=== PATIENT | male | born 1935 | race Caucasian/White ===

== ENCOUNTER 2016-11-23 19:12 | Inpatient (IN) | payer OTHER, BC ==
[2016-11-23 19:52] LABS: BASOPHIL 0.5 % (0-2.0); EOSINOPHIL 2.8 % (0-4.5); MCH 27.1 pg (25.7-33.7); MEAN CELL VOLUME 82.1 fl (80-96); MEAN PLT VOLUME 8.2 fl (7.5-11.1); NEUTROPHILS 77.5 % (42.8-82.8); PLATELET COUNT 213 K/MM3 (134-434); RDW 16.5 % (11.9-15.9); WHITE BLOOD COUNT 9.7 K/mm3 (4.0-10.0)
[2016-11-23 20:03] LABS: INR 1.11 (0.82-1.09); PROTHROMBIN TIME (PATIENT) 12.2 SEC (9.98-11.88)
[2016-11-23 20:18] LABS: ALBUMIN 2.9 g/dl (3.4-5.0); ANION GAP 8 (8-16); CALCIUM 8.1 mg/dL (8.5-10.1); CO2 23 mmol/L (21-32); CREATININE 1.7 mg/dL (0.7-1.3); GLUCOSE,RANDOM 110 mg/dL (74-106); SGOT/AST 10 U/L (15-37); SGPT/ALT 19 U/L (12-78)
[2016-11-23 20:21] LABS: ALK PHOS 87 U/L (45-117); BILIRUBIN,TOTAL 0.5 mg/dL (0.2-1.0); TROPONIN I < 0.02 ng/ml (0.00-0.05)
--- NOTE | 2016-11-23 21:45 | PDOC ---
History of Present Illness - General Chief Complaint: Rectal Bleed Stated Complaint: GI BLEED Time Seen by Provider: 11/23/16 19:23 History Source: Patient Exam Limitations: No Limitations - History of Present Illness Initial Comments: 11/23/16 21:37 Patient is a 81 year old male with h/o HTN, COPD on home O2 2-3 L, hemorrhoids, HLD, GERD, CAD, CHF, DM, chronic renal insufficiency c/o rectal bleeding since this evening. States the bleeding is bright red, with comes out when he uses the toilet, or if she passes gas x 6-7 episodes today. He denies any abdominal pain. No prior episode but he does have hemorrhoids which he said was out and he pushed them back in. Denies chest pain, diziness, weakness, OLIVA. No h/o colonoscopy. PMD: Dr. Connor Rocha PMHX: as above PSOCHX: lives at home, ex smoker stopped 2010 PFamHX: noncontributory ALL: Levaquin GENERAL/CONSTITUTIONAL: [No fever or chills. No weakness. No weight change.] HEAD, EYES, EARS, NOSE AND THROAT: visual defecits left eye. ALGAACIQ, No ear pain or discharge. No sore throat.] CARDIOVASCULAR: [No chest pain or shortness of breath.] RESPIRATORY: (+) cough, wheezing, or hemoptysis, on home O2 GASTROINTESTINAL: [No nausea, vomiting, diarrhea or constipation. No rectal bleeding.] GENITOURINARY: [No dysuria, frequency, or change in urination.] MUSCULOSKELETAL: [No joint or muscle swelling or pain. No neck or back pain.] SKIN AND BREASTS: [No rash or easy bruising.] NEUROLOGIC: [No headache, vertigo, loss of consciousness, or loss of sensation.] PSYCHIATRIC: [No depression or anxiety.] ENDOCRINE: [No increased thirst. No abnormal weight change.] HEMATOLOGIC/LYMPHATIC: [No anemia, easy bleeding, or history of blood clots.] ALLERGIC/IMMUNOLOGIC: [No hives or skin allergy. No latex allergy.] GENERAL: [The patient is awake, alert, and fully oriented, in no acute distress. ] HEAD: [Normal with no signs of trauma.] EYES: [Pupils equal, round and reactive to light, extraocular movements intact, sclera anicteric, conjunctiva clear.] ENT: [Ears normal, nares patent, oropharynx clear without exudates. Moist mucous membranes.] NECK: [Normal range of motion, supple without lymphadenopathy, JVD, or masses.] LUNGS: [Breath sounds equal, clear to auscultation bilaterally. No wheezes, and no crackles.] HEART: [Regular rate and rhythm, normal S1 and S2 without murmur, rub.] ABDOMEN: [Soft, nontender, normoactive bowel sounds. No guarding, no rebound. No masses] RECTAL: no active bleeding, internal hemorrhoids, no stool in vault , pink mucous EXTREMITIES: [Normal range of motion, no edema. No clubbing or cyanosis. No cords, erythema, or tenderness.] NEUROLOGICAL: [Cranial nerves II through XII grossly intact. Normal speech, normal gait.] PSYCH: [Normal mood, normal affect.] SKIN: [Warm, Dry, normal turgor, no rashes or lesions noted.] Past History - Past Medical History Allergies/Adverse Reactions: Allergies Allergy/AdvReac Type Severity Reaction Status Date / Time Iodinated Contrast Media - Allergy Rash Verified 11/23/16 19:20 Oral and [Iodinated Contrast Media - IV Dye] levofloxacin [From Levaquin] Allergy "RASH" Verified 11/23/16 19:20 Home Medications: Ambulatory Orders Amlodipine Besylate [Norvasc -] 10 mg PO DAILY 12/03/12 Aspirin Coated [Ecotrin -] 81 mg PO DAILY 12/03/12 Atorvastatin Ca [Lipitor] 20 mg PO HS 12/03/12 Budesonide [Pulmicort 0.5 mg Nebulizer -] 1 neb NEB HS 12/03/12 Multivit-Min/FA/Lycopene/Lut [Centrum Silver Tablet] 1 each PO DAILY 12/03/12 Tiotropium [place] [Spiriva] 1 inh IH HS 12/03/12 Cyanocobalamin (Vitamin B-12) [Cyanocobalamin] 1,000 mcg PO DAILY 06/27/14 Carvedilol [Coreg -] 12.5 mg PO BID #60 tablet 12/03/14 Losartan Potassium [Cozaar -] 100 mg PO DAILY #0 tablet 12/03/14 Cholecalciferol (Vitamin D3) [Vitamin D3 -] 2,000 unit PO DAILY 03/01/15 Albuterol Sulfate Inhaler - [Ventolin HFA Inhaler -] 1 - 2 inh PO QID #1 inhaler 03/12/16 Pantoprazole Sodium [Protonix -] 10 mg PO DAILY 11/23/16 Prednisone [Deltasone -] 5 mg PO DAILY 11/23/16 Risperidone [Risperdal] 1 mg PO BID 11/23/16 Anemia: No Asthma: (EMPHYSEMA-NASAL 2L) Cancer: No Cardiac Disorders: Yes ("HEART DISEASE") CVA: No COPD: Yes (2-3L NC) CHF: Yes Dementia: No Diabetes: No GI Disorders: Yes (ACID REFLUX) Disorders: No HTN: Yes Hypercholesterolemia: Yes Liver Disease: No Seizures: No Thyroid Disease: No - Surgical History Abdominal Surgery: No Appendectomy: No Cardiac Surgery: Yes (PPM) Cholecystectomy: Yes Lung Surgery: No Neurologic Surgery: No Orthopedic Surgery: No - Immunization History Td Vaccination: No TDAP Vaccination: No Immunization Up to Date: No - Psycho/Social/Smoking Cessation Hx Anxiety: No Suicidal Ideation: No Smoking History: Unknown if ever smoked Have you smoked in the past 12 months: No If you are a former smoker, when did you quit?: 4YRS AGO Hx Alcohol Use: No Drug/Substance Use Hx: No Substance Use Type: None Hx Substance Use Treatment: No *Physical Exam - Vital Signs Last Vital Signs Temp Pulse Resp BP Pulse Ox 97.9 F 92 H 18 143/82 99 11/23/16 19:21 11/23/16 19:21 11/23/16 19:21 11/23/16 19:21 11/23/16 19:21 ED Treatment Course - LABORATORY CBC & Chemistry Diagram: 11/23/16 19:44 11/23/16 19:44 - ADDITIONAL ORDERS Additional order review: Laboratory Results 11/23/16 11/23/16 11/23/16 20:00 19:44 19:44 INR Sodium 141 Potassium 4.5 Chloride 110 H Carbon Dioxide 23 Anion Gap 8 BUN 26 H D Creatinine 1.7 H Creat Clearance w eGFR 38.78 Random Glucose 110 H D Calcium 8.1 L Total Bilirubin 0.5 D AST 10 L D ALT 19 D Alkaline Phosphatase 87 Creatine Kinase 49 Troponin I < 0.02 Total Protein 6.0 L Albumin 2.9 L D Stool Occult Blood Negative Blood Type A POSITIVE Antibody Screen Negative 11/23/16 19:44 INR 1.11 Sodium Potassium Chloride Carbon Dioxide Anion Gap BUN Creatinine Creat Clearance w eGFR Random Glucose Calcium Total Bilirubin AST ALT Alkaline Phosphatase Creatine Kinase Troponin I Total Protein Albumin Stool Occult Blood Blood Type Antibody Screen 11/23/16 19:44 RBC 3.27 L MCV 82.1 MCHC 33.0 RDW 16.5 H MPV 8.2 Neutrophils % 77.5 Lymphocytes % 10.5 D Monocytes % 8.7 D Eosinophils % 2.8 D Basophils % 0.5 D - RADIOLOGY Radiology Studies Ordered: Category Date Time Status CHEST X-RAY PORTABLE* [RAD] Stat Radiology 11/23/16 19:43 Taken Medical Decision Making - Medical Decision Making 11/23/16 22:11 Patient is a 81 year old male with h/o HTN, COPD on home O2 2-3 L, hemorrhoids, HLD, GERD, CAD, CHF, DM, chronic renal insufficiency c/o rectal bleeding since this evening, will get labs, no IVF h/o chf, labs reviewed noted patient h/h falling since february EKG paced at 94, RAD unchanged since 03/02/15 11/23/[address] Meliton Galarza covering, no answer [address] Galarza no answer [address] Galarza no answer. 2330 paged hospitalist will admit *DC/Admit/Observation/Transfer Diagnosis at time of Disposition: GI bleed Qualifiers: GI bleed type/associated pathology: unspecified gastrointestinal hemorrhage type Qualified Code(s): K92.2 - Gastrointestinal hemorrhage, unspecified - Discharge Dispostion Condition at time of disposition: Stable Admit: Yes
[2016-11-23] MEDS ORDERED: PANTOPRAZOLE SODIUM 40 MG VIAL ONE (23:55)
[2016-11-24] MEDS: PANTOPRAZOLE SODIUM 80 MG in SODIUM CHLORIDE 100 ML IVPB SCH ×3 (00:01→21:58)
[2016-11-24] MEDS ORDERED: PANTOPRAZOLE SODIUM 80 MG in SODIUM CHLORIDE 100 ML IVPB ONE (00:05)
--- NOTE | 2016-11-24 00:08 | HP ---
<Rashaad Bella - Last Filed: 11/24/16 03:05> CHIEF COMPLAINT: Rectal Bleeding PCP: Dr. Connor Rocha HISTORY OF PRESENT ILLNESS: 81 year old male, who present with chief complaint of rectal bleeding. ER course was notable for: (1) Rectal Bleeding Recent Travel: PAST MEDICAL HISTORY: Coronary artery disease, CHF, hypertension, hyperlipidemia , right extremity carotid artery stenosis, COPD, dependent on oxygen, diverticulosis, GERD, left inguinal hernia, CKD, BPH, B12 deficiency, invasive pulmonary aspergillosis, diabetes mellitus, arthritis and low back pain chronic. PAST SURGICAL HISTORY: Cholecystectomy, permanent pacemaker Social History: Smoking: Former smoker (quit 4 years ago) Alcohol: Non-alcoholic Drugs: None reported Family History: None reported Allergies Iodinated Contrast Media - Oral and [Iodinated Contrast Media - IV Dye] Allergy (Verified 11/23/16 19:20) Rash UNCODED ALLERGY "CT SCAN DYE" levofloxacin [From Levaquin] Allergy (Verified 11/23/16 19:20) "RASH" HOME MEDICATIONS: Home Medications Medication Instructions Recorded Amlodipine Besylate [Norvasc -] 10 mg PO DAILY 12/03/12 Aspirin Coated [Ecotrin -] 81 mg PO DAILY 12/03/12 Atorvastatin Ca [Lipitor] 20 mg PO HS 12/03/12 Budesonide [Pulmicort 0.5 mg 1 neb NEB HS 12/03/12 Nebulizer -] Multivit-Min/FA/Lycopene/Lut 1 each PO DAILY 12/03/12 [Centrum Silver Tablet] Tiotropium [place] [Spiriva] 1 inh IH HS 12/03/12 Cyanocobalamin (Vitamin B-12) 1,000 mcg PO DAILY 06/27/14 [Cyanocobalamin] Carvedilol [Coreg -] 12.5 mg PO BID #60 tablet 12/03/14 Losartan Potassium [Cozaar -] 100 mg PO DAILY #0 tablet 12/03/14 Cholecalciferol (Vitamin D3) 2,000 unit PO DAILY 03/01/15 [Vitamin D3 -] Albuterol Sulfate Inhaler - 1 - 2 inh PO QID #1 inhaler 03/12/16 [Ventolin HFA Inhaler -] Pantoprazole Sodium [Protonix -] 10 mg PO DAILY 11/23/16 Prednisone [Deltasone -] 5 mg PO DAILY 11/23/16 Risperidone [Risperdal] 1 mg PO BID 11/23/16 REVIEW OF SYSTEMS CONSTITUTIONAL: Absent: fever, chills, diaphoresis, generalized weakness, malaise, loss of appetite, weight change HEENT: Absent: rhinorrhea, nasal congestion, throat pain, throat swelling, difficulty swallowing, mouth swelling, ear pain, eye pain, visual changes CARDIOVASCULAR: Absent: chest pain, syncope, palpitations, irregular heart rate, lightheadedness , peripheral edema RESPIRATORY: Absent: cough, shortness of breath, dyspnea with exertion, orthopnea, wheezing, stridor, hemoptysis GASTROINTESTINAL: Present: Rectal bleeding Absent: abdominal pain, abdominal distension, nausea, vomiting, diarrhea, constipation, hematochezia GENITOURINARY: Absent: dysuria, frequency, urgency, hesitancy, hematuria, flank pain, genital pain MUSCULOSKELETAL: Absent: myalgia, arthralgia, joint swelling, back pain, neck pain SKIN: Absent: rash, itching, pallor HEMATOLOGIC/IMMUNOLOGIC: Absent: easy bleeding, easy bruising, lymphadenopathy, frequent infections ENDOCRINE: Absent: unexplained weight gain, unexplained weight loss, heat intolerance, cold intolerance NEUROLOGIC: Absent: headache, focal weakness or paresthesias, dizziness, unsteady gait, seizure, mental status changes, bladder or bowel incontinence PSYCHIATRIC: Absent: anxiety, depression, suicidal or homicidal ideation, hallucinations. PHYSICAL EXAMINATION Vital Signs - 24 hr 11/23/16 11/23/16 19:21 23:45 Temperature 97.9 F Pulse Rate 92 H Pulse Rate [ 96 H Left] Respiratory 18 16 Rate Blood Pressure 143/82 Blood Pressure 139/72 [Right Arm] O2 Sat by Pulse 99 100 Oximetry (%) GENERAL: Awake, alert, and fully oriented elderly gentleman, resting in bed, able to speak full sentences, in no acute distress. HEAD: Normal with no signs of trauma. EYES: Pupils equal, round and reactive to light, extraocular movements intact, sclera anicteric, conjunctiva clear. No lid lag. EARS, NOSE, THROAT: Ears normal, nares patent, oropharynx clear without exudates. Moist mucous membranes. NECK: Normal range of motion, supple without lymphadenopathy, JVD, or masses. LUNGS: Breath sounds equal, clear to auscultation bilaterally. Mildly decreased breath sounds at bases. No wheezes, and no crackles. No accessory muscle use. HEART: Regular rate and rhythm, normal S1 and S2 without murmur, rub or gallop. ABDOMEN: Soft, nontender, not distended, normoactive bowel sounds x4, no guarding, no rebound, no masses. No hepatomegaly or splenomegaly. MUSCULOSKELETAL: Normal range of motion at all joints. No bony deformities or tenderness. No CVA tenderness. EXTREMITIES: Negative CCE No peripheral edema. NEUROLOGICAL: Cranial nerves II-XII intact. Normal speech. Normal gait. PSYCHIATRIC: Cooperative. Good eye contact. Appropriate mood and affect. SKIN: Warm, dry, normal turgor, no rashes or lesions noted. RECTAL EXAM: Deffered by patient. Laboratory Results - last 24 hr 11/23/16 11/23/16 11/23/16 19:44 19:44 19:44 WBC 9.7 RBC 3.27 L Hgb 8.9 L D Hct 26.9 L MCV 82.1 MCHC 33.0 RDW 16.5 H Plt Count 213 MPV 8.2 Neutrophils % 77.5 Lymphocytes % 10.5 D Monocytes % 8.7 D Eosinophils % 2.8 D Basophils % 0.5 D INR 1.11 Sodium 141 Potassium 4.5 Chloride 110 H Carbon Dioxide 23 Anion Gap 8 BUN 26 H D Creatinine 1.7 H Creat Clearance w eGFR 38.78 Random Glucose 110 H D Calcium 8.1 L Total Bilirubin 0.5 D AST 10 L D ALT 19 D Alkaline Phosphatase 87 Creatine Kinase 49 Troponin I < 0.02 Total Protein 6.0 L Albumin 2.9 L D Stool Occult Blood Blood Type Antibody Screen 11/23/16 11/23/16 19:44 20:00 WBC RBC Hgb Hct MCV MCHC RDW Plt Count MPV Neutrophils % Lymphocytes % Monocytes % Eosinophils % Basophils % INR Sodium Potassium Chloride Carbon Dioxide Anion Gap BUN Creatinine Creat Clearance w eGFR Random Glucose Calcium Total Bilirubin AST ALT Alkaline Phosphatase Creatine Kinase Troponin I Total Protein Albumin Stool Occult Blood Negative Blood Type A POSITIVE Antibody Screen Negative EKG V paced at 94 QTC 520 ASSESSMENT/PLAN: 81 year old male, with past medical history of Coronary artery disease, CHF, hypertension, hyperlipidemia, right extremity carotid artery stenosis, COPD, dependent on oxygen, diverticulosis, GERD, left inguinal hernia, CKD, BPH, B12 deficiency, invasive pulmonary aspergillosis, diabetes mellitus, arthritis and low back pain chronic, who presents with rectal bleeding. 1. Rectal bleeding - Differential diagnosis; diverticulitis bleed, doubt upper GI source by patient poor historian - 2 Large bore IVs - NPO - Type and screen - CBC Q8 - [place] in AM - Transfuse if hemoglobin less than 7 - GI consult 2. COPD - Continue with O2 - Continue with nebs - ? Prednisone needs to be confirmed with pharmacy 5 mg daily 3. Diabetes - NPO - Fingerstick Q4 - IRSS 4. CAD - hold Aspirin - Hold Coreg - Hold Statin 5. CKD - Base creatine around 2 - Avoid nephrotoxins 6. Hypertension - Hold PO meds for now 7. History of CHF - If transfusion needed, consider Lasix post hold off IVF for now 8. DVT prophylaxis - Row risk SCDs Admit to non cardiac tely Low threshold for ICU if continue severe bleeding Documentation prepared by Rashaad Bella, acting as biomedical engineering internship for Wally Mcleod MD. <Wally Mcleod - Last Filed: 11/30/16 18:58> HPI: ADDENDUM: Pt. is a poor historian, states he has had bloody BM's since this evening, about 6-7 X. Unsure of color, did say prior it was bright red blood. No current chest pain, pressure, lightheadedness or dizziness. States he had a BM in the ED , which did not have any blood in it. Notes he has never had a colonoscopy or EGD. Visit type - Emergency Visit Emergency Visit: Yes ED Registration Date: 11/23/16 Care time: The patient presented to the Emergency Department on the above date and was hospitalized for further evaluation of their emergent condition. - New Patient This patient is new to me today: Yes Date on this admission: 11/30/16 - Critical Care Critical Care patient: No
[2016-11-24] MEDS: INSULIN SLIDING SCALE (NOVOLOG) 1 VIAL SQ SCH ×7 (00:16→22:00)
[2016-11-24] MEDS ORDERED: ALBUTEROL SO4 6.7 GM HFA INHALER IH PRN ×2 (04:38→10:00)
[2016-11-24 05:35] VITALS: BMI 32.3
[2016-11-24] MEDS ORDERED: ALBUTEROL SO4 0.083% IH SOL 2.5 MG/3 ML VIAL.NEB. NEB ONE (07:27)
[2016-11-24 07:53] LABS: MCH 27.1 pg (25.7-33.7); MEAN CELL VOLUME 82.2 fl (80-96); MEAN PLT VOLUME 8.5 fl (7.5-11.1); PLATELET COUNT 180 K/MM3 (134-434); RDW 16.5 % (11.9-15.9); WHITE BLOOD COUNT 8.8 K/mm3 (4.0-10.0)
[2016-11-24 08:14] LABS: INR 1.12 (0.82-1.09); PROTHROMBIN TIME (PATIENT) 12.3 SEC (9.98-11.88)
[2016-11-24 08:16] LABS: CALCIUM 8.5 mg/dL (8.5-10.1)
[2016-11-24 08:17] LABS: ACTIVATED PTT 25.9 SECONDS (26.9-34.4)
[2016-11-24 08:18] LABS: CREATININE 1.7 mg/dL (0.7-1.3)
[2016-11-24] MEDS: predniSONE 5 MG TABLET (UD) PO SCH (09:59)
[2016-11-24] MEDS ORDERED: risperiDONE 1 MG TABLET (FP) PO SCH (10:00)
--- NOTE | 2016-11-24 10:54 | PN ---
Progress Note, Physician Chief Complaint: Mr Vee says he is feeling fine today. Is asking for food because he is hungry. No cp, sob, n/v. - Current Medication List Current Medications: Active Medications Aclidinium [place] ([place] -) 1 puff IH BID DINESH Albuterol Sulfate (Ventolin Hfa Inhaler -) 2 puff IH Q6H PRN PRN Reason: SHORTNESS OF BREATH Budesonide (Pulmicort 0.5 Mg Nebulizer -) 1 amp NEB HS DINESH Pantoprazole Sodium 80 mg/ (Sodium Chloride) 100 mls @ 10 mls/hr IVPB Q10H DINESH PRN Reason: 8 MG/HR Last Admin: 11/24/16 10:00 Dose: Not Given Insulin Aspart (Novolog Vial Sliding Scale -) 1 vial SQ Q4HPO DINESH PRN Reason: Protocol Last Admin: 11/24/16 10:09 Dose: Not Given Prednisone (Deltasone -) 5 mg PO DAILY [facility] Last Admin: 11/24/16 09:59 Dose: Not Given - Objective Vital Signs: Vital Signs Temperature 98.4 F 11/24/16 10:10 Pulse Rate 96 H 11/24/16 10:10 Respiratory Rate 22 11/24/16 10:10 Blood Pressure 130/74 11/24/16 10:10 O2 Sat by Pulse Oximetry (%) 98 11/24/16 01:18 Constitutional: Yes: No Distress, Calm, Obese Cardiovascular: Yes: Regular Rate and Rhythm. No: Gallop, Murmur, Rub Respiratory: Yes: Regular, CTA Bilaterally. No: Rales, Rhonchi, Wheezes Gastrointestinal: Yes: Normal Bowel Sounds, Soft. No: Distention, Tenderness Extremities: Yes: WNL Edema: No Labs: CBC, BMP 11/24/16 05:42 11/24/16 05:42 INR, PTT INR 1.12 (0.82-1.09) 11/24/16 05:42 Problem List - Problems (1) GI bleed Assessment/Plan: -patient presents with GI bleed -suspect upper, but also with BRBPR by patient so may be lower -continue protonix gtt -continue npo -awaiting GI assistance and recommendations Code(s): K92.2 - GASTROINTESTINAL HEMORRHAGE, UNSPECIFIED Qualifiers: GI bleed type/associated pathology: unspecified gastrointestinal hemorrhage type Qualified Code(s): K92.2 - Gastrointestinal hemorrhage, unspecified (2) Anemia Assessment/Plan: -acute -continue to monitor -can hold on transfusion currently -continue to monitor Code(s): D64.9 - ANEMIA, UNSPECIFIED Qualifiers: Iron deficiency anemia type: chronic blood loss (3) COPD (chronic obstructive pulmonary disease) Assessment/Plan: -stable -continue home regimen Code(s): J44.9 - CHRONIC OBSTRUCTIVE PULMONARY DISEASE, UNSPECIFIED Qualifiers : COPD type: COPD with acute exacerbation Qualified Code(s): J44.1 - Chronic obstructive pulmonary disease with (acute) exacerbation (4) Hyperlipidemia Assessment/Plan: -on lipitor at home -can hold until taking po Code(s): E78.5 - HYPERLIPIDEMIA, UNSPECIFIED Qualifiers: Hyperlipidemia type: Pure hypercholesterolemia Qualified Code(s): E78.0 - Pure hypercholesterolemia (5) Hypertension Assessment/Plan: -on coreg, amlodipine, and cozaar at home per records -currently controlled -continue to monitor, add back antihypertensives as needed Code(s): I10 - ESSENTIAL (PRIMARY) HYPERTENSION Qualifiers: Hypertension type: essential hypertension Qualified Code(s): I10 - Essential (primary) hypertension
--- NOTE | 2016-11-24 11:17 | EKG ---
Test Reason : Blood Pressure : / mmHG Vent. Rate : 094 BPM Atrial Rate : 094 BPM P-R Int : 164 ms QRS Dur : 162 ms QT Int : 416 ms P-R-T Axes : 000 -88 079 degrees QTc Int : 520 ms POOR DATA QUALITY, INTERPRETATION MAY BE ADVERSELY AFFECTED Atrial-sensed ventricular-paced rhythm ABNORMAL ECG WHEN COMPARED WITH ECG OF 09-MAR-2016 23:16, VENT. RATE HAS DECREASED BY 19 BPM Confirmed by BARBARA JOVEL MD ([id number]) on 11/24/2016 11:17:17 AM Referred By: Confirmed By:BARBARA JOVEL MD
[2016-11-24] MEDS: ACLIDINIUM BROMIDE 400 MCG/INH AERO.POWD IH SCH ×2 (11:43→22:01)
[2016-11-24] MEDS: DEXTROSE 5%-0.45% SALINE 1,000 ML IV SCH (13:12)
--- NOTE | 2016-11-24 18:04 | CON.GI ---
Consult Consult Specialty:: GI Referred by:: Dr. Garces Reason for Consultation:: Rectal bleeding - History of Present Illness Chief Complaint: Patient extremely hard of hearing. Per his there was rectal bleeding this weekend History of Present Illness: 81M admitted from home for evalution of rectal bleeding and passing out at home. His tells me that he had some BRBPR stur, more on thursday and that he passed out. he did not describe any abdominal pain at home. he did have a colonoscopy performed by Dr. Carrillo in 1997, It revealed three colon polyps as well as an area in the sigmoid colon that he suspected to be a large polyp or mass lesion. Dr. Carrillo advised repeat evaluation but per our records in the office this was never performed as Mr. Vee never scheduled. Ms. Vee tells me that he has poor medical follow-up and was aware that he was supposed to follow-up regarding this. There has been no reported bleeding today. - History Source History Provided By: Patient, Family Member, Medical Record - Past Medical History DOOR HANGER: Yes: Other (decreased hearing) Cardio/Vascular: Yes: CAD, CHF, HTN, Hyperlipdemia, Other (Right external carotid artery stenosis, tachycardia) Pulmonary: Yes: COPD, O2 Dependent, Other (pulmonary nodule) Gastrointestinal: Yes: Diverticulosis, GERD, Other (left inguinal hernia, duodinitis, colon polyps) Renal/: Yes: Renal Inusuff, BPH, Hematuria, Other (bladder dysfunction) Infectious Disease: Yes: Other (invasive pulmonary aspergillosis) Musculoskeletal: Yes: Chronic low back pain, Osteoarthritis, Other (dupuytren contracture) ENT: Yes: Other ([place]) Endocrine: Yes: Diabetes Mellitus - Past Surgical History Past Surgical History: Yes: Cholecystectomy (open), Permanent Pacemaker - Alcohol/Substance Use Hx Alcohol Use: No History of Substance Use: reports: None - Smoking History Smoking history: Former smoker Have you smoked in the past 12 months: No If you are a former smoker, when did you quit?: 10YRS AGO - Social History Usual Living Arrangement: With Child ADL: Family Assistance Occupation: , 4 children Place of : [facility] History of Recent Travel: No Home Medications - Allergies Allergies/Adverse Reactions: Allergies Allergy/AdvReac Type Severity Reaction Status Date / Time Iodinated Contrast Media - Allergy Rash Verified 03/05/17 19:20 Oral and [Iodinated Contrast Media - IV Dye] levofloxacin [From Levaquin] Allergy "RASH" Verified 11/23/16 19:20 - Home Medications Home Medications: Ambulatory Orders Amlodipine Besylate [Norvasc -] 10 mg PO DAILY 12/03/12 Aspirin Coated [Ecotrin -] 81 mg PO DAILY 12/03/12 Atorvastatin Ca [Lipitor] 20 mg PO HS 12/03/12 Budesonide [Pulmicort 0.5 mg Nebulizer -] 1 neb NEB HS 12/03/12 Multivit-Min/FA/Lycopene/Lut [Centrum Silver Tablet] 1 each PO DAILY 12/03/12 Tiotropium [place] [Spiriva] 1 inh IH HS 12/03/12 Cyanocobalamin (Vitamin B-12) [Cyanocobalamin] 1,000 mcg PO DAILY 06/27/14 Carvedilol [Coreg -] 12.5 mg PO BID #60 tablet 12/03/14 Losartan Potassium [Cozaar -] 100 mg PO DAILY #0 tablet 12/03/14 Cholecalciferol (Vitamin D3) [Vitamin D3 -] 2,000 unit PO DAILY 03/01/15 Albuterol Sulfate Inhaler - [Ventolin HFA Inhaler -] 1 - 2 inh PO QID #1 inhaler 03/12/16 Pantoprazole Sodium [Protonix -] 10 mg PO DAILY 11/23/16 Prednisone [Deltasone -] 5 mg PO DAILY 11/23/16 Risperidone [Risperdal] 1 mg PO BID 11/23/16 Family Disease History - Family Disease History Family Disease History: Other: Father ( 71 ? colon cancer), Mother ( 62 : "enlarged heart"), Sister (: CVA and IA), Daughter (CVA) Review of Systems Unable to obtain ROS, reason: Patient extremely [place] Physical Exam-GI Vital Signs: Vital Signs Temperature 98 F 11/24/16 17:27 Pulse Rate 97 H 11/24/16 17:27 Respiratory Rate 18 11/24/16 17:27 Blood Pressure 138/78 11/24/16 17:27 O2 Sat by Pulse Oximetry (%) 98 11/24/16 10:10 Constitutional: Yes: Calm Eyes: No: Sclera Icterus Cardiovascular: Yes: Regular Rate and Rhythm Respiratory: Yes: Diminished (bases b/l poor insp. effort) Gastrointestinal Inspection: Yes: Scars (large oblique RUQ scar) ...Auscultate: Yes: Normoactive Bowel Sounds ...Palpate: No: Tenderness ...Percussion: No: Tympanitic ...Rectal Exam: Yes: Other (No blood, melena, no masses palpated) Edema: No Neurological: Yes: Other (awake) Labs: CBC, BMP 11/24/16 05:42 11/24/16 05:42 INR, PTT INR 1.12 (0.82-1.09) 11/24/16 05:42 Problem List - Problems (1) GI bleed Assessment/Plan: Described as red rectal bleeding. given previous colonoscopy findings possibility of diverticular bleed or bleeding from a sigmoid mass that was never followed up woulc need to be considered in the differential. my rectal exam this evening failed to reveal any blood or melena. Mr. Vee is extremely [place] of hearing so I had to write down the plan of performing a colonoscopy on him for further evaluation. I also called his João and explained this to her as well Advised: Clear liquids CBC has been repeated this evening. If less than 8 transfuse 1 U PRBC Bowel prep tomorrow for colon sunday 11/26 If profuse bleeding ensues, transfer to ICU and obtain surgical consult as well Code(s): K92.2 - GASTROINTESTINAL HEMORRHAGE, UNSPECIFIED Qualifiers: GI bleed type/associated pathology: unspecified gastrointestinal hemorrhage type Qualified Code(s): K92.2 - Gastrointestinal hemorrhage, unspecified
[2016-11-24 18:21] LABS: MCH 27.4 pg (25.7-33.7); MCHC 33.5 g/dl (32.0-35.9); MEAN CELL VOLUME 81.9 fl (80-96); MEAN PLT VOLUME 8.1 fl (7.5-11.1); PLATELET COUNT 197 K/MM3 (134-434); RDW 17.1 % (11.9-15.9); WHITE BLOOD COUNT 8.6 K/mm3 (4.0-10.0)
[2016-11-24] MEDS: BUDESONIDE 0.5 MG/2 ML INH SUSP VIAL NEB SCH (22:00)
[2016-11-24] MEDS ORDERED: TIOTROPIUM BROMIDE 18 MCG/INH (DEVICE W/ 5 CAPSULES) IH SCH (22:00)
[2016-11-25] MEDS: INSULIN SLIDING SCALE (NOVOLOG) 1 VIAL SQ SCH ×5 (02:00→21:47)
[2016-11-25] MEDS: PANTOPRAZOLE SODIUM 80 MG in SODIUM CHLORIDE 100 ML IVPB SCH ×2 (05:39→16:26)
[2016-11-25 07:35] LABS: BASOPHIL 0.8 % (0-2.0); EOSINOPHIL 5.3 % (0-4.5); MCH 27.6 pg (25.7-33.7); MCHC 33.4 g/dl (32.0-35.9); MEAN CELL VOLUME 82.8 fl (80-96); MEAN PLT VOLUME 8.5 fl (7.5-11.1); NEUTROPHILS 71.4 % (42.8-82.8); PLATELET COUNT 167 K/MM3 (134-434); RDW 17.2 % (11.9-15.9); WHITE BLOOD COUNT 9.1 K/mm3 (4.0-10.0)
[2016-11-25 08:29] LABS: CALCIUM 8.2 mg/dL (8.5-10.1); CREATININE 1.8 mg/dL (0.7-1.3); MAGNESIUM 1.8 mg/dL (1.8-2.4); PHOSPHOROUS 3.4 mg/dL (2.5-4.9)
[2016-11-25] MEDS ORDERED: PT OWN MED DRAWER 7, Y5N ONE ×3 (09:12→21:28)
[2016-11-25] MEDS: ACLIDINIUM BROMIDE 400 MCG/INH AERO.POWD IH SCH ×2 (09:25→21:47)
[2016-11-25] MEDS: predniSONE 5 MG TABLET (UD) PO SCH (09:26)
[2016-11-25] MEDS ORDERED: BISACODYL 5 MG TABLET.DR (FP) PO ONE (14:00)
[2016-11-25] MEDS ORDERED: PEG3350/SOD SULF,BICARB,CL/KCL 4,000 ML SOLN.RECON PO ONE (15:00)
[2016-11-25] MEDS: DEXTROSE 5%-0.45% SALINE 1,000 ML IV SCH (15:28)
--- NOTE | 2016-11-25 16:26 | PN ---
Progress Note, Physician Chief Complaint: Mr Vee says he is feeling fine today. Says he is tired of the clear liquid diet. No cp, sob, n/v. - Current Medication List Current Medications: Active Medications Aclidinium [place] (Tudorza -) 1 puff IH BID [facility] Last Admin: 11/25/16 09:25 Dose: 1 inh Albuterol Sulfate (Ventolin Hfa Inhaler -) 2 puff IH Q6H PRN PRN Reason: SHORTNESS OF BREATH Budesonide (Pulmicort 0.5 Mg Nebulizer -) 1 amp NEB HS [facility] Last Admin: 11/24/16 22:00 Dose: 1 amp Pantoprazole Sodium 80 mg/ (Sodium Chloride) 100 mls @ 10 mls/hr IVPB Q10H [facility] PRN Reason: 8 MG/HR Last Admin: 11/25/16 05:39 Dose: 10 mls/hr Dextrose/Sodium Chloride (D5-1/2ns -) 1,000 mls @ 42 mls/hr IV ASDIR [facility] Last Admin: 11/25/16 15:28 Dose: 42 mls/hr Insulin Aspart (Novolog Vial Sliding Scale -) 1 vial SQ Q4HPO [facility] PRN Reason: Protocol Last Admin: 11/25/16 15:34 Dose: Not Given Prednisone (Deltasone -) 5 mg PO DAILY [facility] Last Admin: 11/25/16 09:26 Dose: 5 mg - Objective Vital Signs: Vital Signs Temperature 97.7 F 11/25/16 14:56 Pulse Rate 104 H 11/25/16 14:56 Respiratory Rate 24 11/25/16 14:56 Blood Pressure 136/66 11/25/16 14:56 O2 Sat by Pulse Oximetry (%) 99 11/24/16 21:00 Constitutional: Yes: Well Nourished, No Distress, Calm Cardiovascular: Yes: Regular Rate and Rhythm. No: Gallop, Murmur, Rub Respiratory: Yes: Regular, CTA Bilaterally, On Nasal O2. No: Rales, Rhonchi, Wheezes Gastrointestinal: Yes: Normal Bowel Sounds, Soft. No: Distention, Tenderness Extremities: Yes: WNL Edema: No Labs: CBC, BMP 11/25/16 05:35 11/25/16 05:35 INR, PTT INR 1.12 (0.82-1.09) 11/24/16 05:42 Problem List - Problems (1) GI bleed Code(s): K92.2 - GASTROINTESTINAL HEMORRHAGE, UNSPECIFIED Qualifiers: GI bleed type/associated pathology: unspecified gastrointestinal hemorrhage type Qualified Code(s): K92.2 - Gastrointestinal hemorrhage, unspecified (2) Anemia Code(s): D64.9 - ANEMIA, UNSPECIFIED Qualifiers: Iron deficiency anemia type: chronic blood loss (3) COPD (chronic obstructive pulmonary disease) Code(s): J44.9 - CHRONIC OBSTRUCTIVE PULMONARY DISEASE, UNSPECIFIED Qualifiers : COPD type: COPD with acute exacerbation Qualified Code(s): J44.1 - Chronic obstructive pulmonary disease with (acute) exacerbation (4) Hyperlipidemia Code(s): E78.5 - HYPERLIPIDEMIA, UNSPECIFIED Qualifiers: Hyperlipidemia type: Pure hypercholesterolemia (5) Hypertension Code(s): I10 - ESSENTIAL (PRIMARY) HYPERTENSION Qualifiers: Hypertension type: essential hypertension Qualified Code(s): I10 - Essential (primary) hypertension Assessment/Plan (1) GI bleed Assessment/Plan: -appreciate GI assistance -continue IV protonix -planning for scopes tomorrow Code(s): K92.2 - GASTROINTESTINAL HEMORRHAGE, UNSPECIFIED Qualifiers: GI bleed type/associated pathology: unspecified gastrointestinal hemorrhage type Qualified Code(s): K92.2 - Gastrointestinal hemorrhage, unspecified (2) Anemia Assessment/Plan: -acute -s/p transfusion -stable Code(s): D64.9 - ANEMIA, UNSPECIFIED Qualifiers: Iron deficiency anemia type: chronic blood loss (3) COPD (chronic obstructive pulmonary disease) Assessment/Plan: -stable -continue home regimen Code(s): J44.9 - CHRONIC OBSTRUCTIVE PULMONARY DISEASE, UNSPECIFIED Qualifiers : COPD type: COPD with acute exacerbation Qualified Code(s): J44.1 - Chronic obstructive pulmonary disease with (acute) exacerbation (4) Hyperlipidemia Assessment/Plan: -on lipitor at home -can hold until taking po Code(s): E78.5 - HYPERLIPIDEMIA, UNSPECIFIED Qualifiers: Hyperlipidemia type: Pure hypercholesterolemia Qualified Code(s): E78.0 - Pure hypercholesterolemia (5) Hypertension Assessment/Plan: -on coreg, amlodipine, and cozaar at home per records -currently controlled -continue to monitor, add back antihypertensives as needed Code(s): I10 - ESSENTIAL (PRIMARY) HYPERTENSION Qualifiers: Hypertension type: essential hypertension Qualified Code(s): I10 - Essential (primary) hypertension
--- NOTE | 2016-11-25 18:14 | PN ---
Progress Note (short form) - Note Progress Note: As Mr. Vee is extremely hard of hearing, I wrote out why we wanted to perform colonoscopy (eval bleeding and abnormal finding noted on previous colonoscopy in 1997, exclude a colon cancer, history of polyps), the potential risks of the procedure like but not limited to bleeding, perforation requiring surgery to repair, infection and sedation medication effects all of which could be potentially life threatening. This was witnessed by his nurse didier. After explanation, he said that he did not want to have the procedure. Didier made Dr. Duran aware of Mr. Vee's decision. Mr. Vee wanted me to let his know that he refused as well. I called her and told her. Please recall if patient is willing to undergo evaluation Problem List - Problems (1) GI bleed Code(s): K92.2 - GASTROINTESTINAL HEMORRHAGE, UNSPECIFIED Qualifiers: GI bleed type/associated pathology: unspecified gastrointestinal hemorrhage type Qualified Code(s): K92.2 - Gastrointestinal hemorrhage, unspecified
[2016-11-25] MEDS: BUDESONIDE 0.5 MG/2 ML INH SUSP VIAL NEB SCH (22:15)
[2016-11-26] MEDS: INSULIN SLIDING SCALE (NOVOLOG) 1 VIAL SQ SCH ×6 (02:00→21:17)
[2016-11-26] MEDS: PANTOPRAZOLE SODIUM 80 MG in SODIUM CHLORIDE 100 ML IVPB SCH ×2 (02:22→13:09)
[2016-11-26 07:40] LABS: BASOPHIL 0.9 % (0-2.0); EOSINOPHIL 4.8 % (0-4.5); MCH 27.5 pg (25.7-33.7); MCHC 32.7 g/dl (32.0-35.9); MEAN CELL VOLUME 83.9 fl (80-96); MEAN PLT VOLUME 8.7 fl (7.5-11.1); NEUTROPHILS 68.8 % (42.8-82.8); PLATELET COUNT 159 K/MM3 (134-434); WHITE BLOOD COUNT 7.9 K/mm3 (4.0-10.0)
[2016-11-26 08:22] LABS: CALCIUM 8.1 mg/dL (8.5-10.1); CREATININE 1.7 mg/dL (0.7-1.3); MAGNESIUM 1.8 mg/dL (1.8-2.4)
[2016-11-26] MEDS: predniSONE 5 MG TABLET (UD) PO SCH (11:01)
[2016-11-26] MEDS: ACLIDINIUM BROMIDE 400 MCG/INH AERO.POWD IH SCH ×2 (11:01→21:18)
--- NOTE | 2016-11-26 15:15 | PN ---
Progress Note, Physician Chief Complaint: Mr Vee is without complaint. Says he is feeling well. No cp, sob, n/v. - Current Medication List Current Medications: Active Medications Aclidinium [place] (Tudorza -) 1 puff IH BID [facility] Last Admin: 11/26/16 11:01 Dose: 1 inh Albuterol Sulfate (Ventolin Hfa Inhaler -) 2 puff IH Q6H PRN PRN Reason: SHORTNESS OF BREATH Budesonide (Pulmicort 0.5 Mg Nebulizer -) 1 amp NEB HS [facility] Last Admin: 11/25/16 22:15 Dose: 1 amp Insulin Aspart (Novolog Vial Sliding Scale -) 1 vial SQ ACHS [facility] PRN Reason: Protocol Pantoprazole Sodium (Protonix -) 40 mg PO BID [facility] Prednisone (Deltasone -) 5 mg PO DAILY [facility] Last Admin: 11/26/16 11:01 Dose: 5 mg - Objective Vital Signs: Vital Signs Temperature 98.6 F 11/26/16 10:00 Pulse Rate 96 H 11/26/16 10:00 Respiratory Rate 20 11/26/16 10:00 Blood Pressure 141/68 11/26/16 10:00 O2 Sat by Pulse Oximetry (%) 98 11/26/16 10:00 Constitutional: Yes: Well Nourished, No Distress, Calm Cardiovascular: Yes: Regular Rate and Rhythm. No: Gallop, Murmur, Rub Respiratory: Yes: Regular, CTA Bilaterally. No: Rales, Rhonchi, Wheezes Gastrointestinal: Yes: Normal Bowel Sounds, Soft. No: Distention, Tenderness Extremities: Yes: WNL Edema: No Labs: CBC, BMP 11/26/16 05:35 11/26/16 05:35 INR, PTT INR 1.12 (0.82-1.09) 11/24/16 05:42 Problem List - Problems (1) GI bleed Code(s): K92.2 - GASTROINTESTINAL HEMORRHAGE, UNSPECIFIED Qualifiers: GI bleed type/associated pathology: unspecified gastrointestinal hemorrhage type Qualified Code(s): K92.2 - Gastrointestinal hemorrhage, unspecified (2) Anemia Code(s): D64.9 - ANEMIA, UNSPECIFIED Qualifiers: Iron deficiency anemia type: chronic blood loss (3) COPD (chronic obstructive pulmonary disease) Code(s): J44.9 - CHRONIC OBSTRUCTIVE PULMONARY DISEASE, UNSPECIFIED Qualifiers : COPD type: COPD with acute exacerbation Qualified Code(s): J44.1 - Chronic obstructive pulmonary disease with (acute) exacerbation (4) Hyperlipidemia Code(s): E78.5 - HYPERLIPIDEMIA, UNSPECIFIED Qualifiers: Hyperlipidemia type: Pure hypercholesterolemia (5) Hypertension Code(s): I10 - ESSENTIAL (PRIMARY) HYPERTENSION Qualifiers: Hypertension type: essential hypertension Qualified Code(s): I10 - Essential (primary) hypertension Assessment/Plan (1) GI bleed Assessment/Plan: -patient refused intervention -change protonix to oral -advance diet -check cbc in am -plan for discharge tomorrow if tolerates diet Code(s): K92.2 - GASTROINTESTINAL HEMORRHAGE, UNSPECIFIED Qualifiers: GI bleed type/associated pathology: unspecified gastrointestinal hemorrhage type Qualified Code(s): K92.2 - Gastrointestinal hemorrhage, unspecified (2) Anemia Assessment/Plan: -acute -s/p transfusion -stable Code(s): D64.9 - ANEMIA, UNSPECIFIED Qualifiers: Iron deficiency anemia type: chronic blood loss (3) COPD (chronic obstructive pulmonary disease) Assessment/Plan: -stable -continue home regimen Code(s): J44.9 - CHRONIC OBSTRUCTIVE PULMONARY DISEASE, UNSPECIFIED Qualifiers : COPD type: COPD with acute exacerbation Qualified Code(s): J44.1 - Chronic obstructive pulmonary disease with (acute) exacerbation (4) Hyperlipidemia Assessment/Plan: -on lipitor at home -can restart on discharge Code(s): E78.5 - HYPERLIPIDEMIA, UNSPECIFIED Qualifiers: Hyperlipidemia type: Pure hypercholesterolemia Qualified Code(s): E78.0 - Pure hypercholesterolemia (5) Hypertension Assessment/Plan: -on coreg, amlodipine, and cozaar at home per records -continue to monitor, no emergent need for antihypertensives currently Code(s): I10 - ESSENTIAL (PRIMARY) HYPERTENSION Qualifiers: Hypertension type: essential hypertension Qualified Code(s): I10 - Essential (primary) hypertension
[2016-11-26] MEDS: DEXTROSE 5%-0.45% SALINE 1,000 ML IV SCH (15:20)
[2016-11-26] MEDS ORDERED: PT OWN MED DRAWER 7, Y5N ONE (21:13)
[2016-11-26] MEDS: PANTOPRAZOLE 40 MG TABLET (FP) PO SCH (21:18)
[2016-11-26] MEDS: BUDESONIDE 0.5 MG/2 ML INH SUSP VIAL NEB SCH (22:35)
[2016-11-27] MEDS: INSULIN SLIDING SCALE (NOVOLOG) 1 VIAL SQ SCH ×4 (06:51→22:27)
[2016-11-27 07:36] LABS: BASOPHIL 0.7 % (0-2.0); EOSINOPHIL 5.5 % (0-4.5); MCH 27.5 pg (25.7-33.7); MEAN CELL VOLUME 83.1 fl (80-96); MEAN PLT VOLUME 8.1 fl (7.5-11.1); NEUTROPHILS 70.9 % (42.8-82.8); PLATELET COUNT 158 K/MM3 (134-434); RDW 17.5 % (11.9-15.9); WHITE BLOOD COUNT 7.1 K/mm3 (4.0-10.0)
[2016-11-27 08:07] LABS: CALCIUM 8.3 mg/dL (8.5-10.1); MAGNESIUM 1.9 mg/dL (1.8-2.4)
[2016-11-27 08:09] LABS: CREATININE 1.7 mg/dL (0.7-1.3); PHOSPHOROUS 3.1 mg/dL (2.5-4.9)
[2016-11-27] MEDS ORDERED: PT OWN MED DRAWER 7, Y5N ONE ×2 (09:13→22:02)
[2016-11-27] MEDS: predniSONE 5 MG TABLET (UD) PO SCH (09:14)
[2016-11-27] MEDS: PANTOPRAZOLE 40 MG TABLET (FP) PO SCH ×2 (09:14→22:05)
[2016-11-27] MEDS: ACLIDINIUM BROMIDE 400 MCG/INH AERO.POWD IH SCH ×2 (09:14→22:05)
--- NOTE | 2016-11-27 12:29 | PN ---
Progress Note, Physician Chief Complaint: Mr Vee is refusing scopes. Says he is feeling fine. Says he has not had any further bleeding. No cp, sob, n/v. - Current Medication List Current Medications: Active Medications Aclidinium [place] (Tudorza -) 1 puff IH BID [facility] Last Admin: 11/27/16 09:14 Dose: 1 inh Albuterol Sulfate (Ventolin Hfa Inhaler -) 2 puff IH Q6H PRN PRN Reason: SHORTNESS OF BREATH Budesonide (Pulmicort 0.5 Mg Nebulizer -) 1 amp NEB HS [facility] Last Admin: 11/26/16 22:35 Dose: 1 amp Insulin Aspart (Novolog Vial Sliding Scale -) 1 vial SQ ACHS [facility] PRN Reason: Protocol Last Admin: 11/27/16 06:51 Dose: Not Given Pantoprazole Sodium (Protonix -) 40 mg PO BID [facility] Last Admin: 11/27/16 09:14 Dose: 40 mg Prednisone (Deltasone -) 5 mg PO DAILY [facility] Last Admin: 11/27/16 09:14 Dose: 5 mg - Objective Vital Signs: Vital Signs Temperature 98.1 F 11/27/16 10:00 Pulse Rate 93 H 11/27/16 10:00 Respiratory Rate 20 11/27/16 10:00 Blood Pressure 131/62 11/27/16 10:00 O2 Sat by Pulse Oximetry (%) 98 11/27/16 09:00 Constitutional: Yes: Well Nourished, No Distress, Calm Cardiovascular: Yes: Regular Rate and Rhythm. No: Gallop, Murmur, Rub Respiratory: Yes: Regular, CTA Bilaterally. No: Rales, Rhonchi, Wheezes Gastrointestinal: Yes: Normal Bowel Sounds, Soft. No: Distention, Tenderness Extremities: Yes: WNL Edema: No Labs: CBC, BMP 11/27/16 06:40 11/27/16 06:40 INR, PTT INR 1.12 (0.82-1.09) 11/24/16 05:42 Problem List - Problems (1) GI bleed Code(s): K92.2 - GASTROINTESTINAL HEMORRHAGE, UNSPECIFIED Qualifiers: GI bleed type/associated pathology: unspecified gastrointestinal hemorrhage type Qualified Code(s): K92.2 - Gastrointestinal hemorrhage, unspecified (2) Anemia Code(s): D64.9 - ANEMIA, UNSPECIFIED Qualifiers: Iron deficiency anemia type: chronic blood loss (3) COPD (chronic obstructive pulmonary disease) Code(s): J44.9 - CHRONIC OBSTRUCTIVE PULMONARY DISEASE, UNSPECIFIED Qualifiers : COPD type: COPD with acute exacerbation Qualified Code(s): J44.1 - Chronic obstructive pulmonary disease with (acute) exacerbation (4) Hyperlipidemia Code(s): E78.5 - HYPERLIPIDEMIA, UNSPECIFIED Qualifiers: Hyperlipidemia type: pure hypercholesterolemia Qualified Code(s): E78.0 - Pure hypercholesterolemia (5) Hypertension Code(s): I10 - ESSENTIAL (PRIMARY) HYPERTENSION Qualifiers: Hypertension type: essential hypertension Qualified Code(s): I10 - Essential (primary) hypertension Assessment/Plan (1) GI bleed Assessment/Plan: -continue oral protonix and diet -H/H dropped, but within parameters of admission -continue to monitor Code(s): K92.2 - GASTROINTESTINAL HEMORRHAGE, UNSPECIFIED Qualifiers: GI bleed type/associated pathology: unspecified gastrointestinal hemorrhage type Qualified Code(s): K92.2 - Gastrointestinal hemorrhage, unspecified (2) Anemia Assessment/Plan: -acute -s/p transfusion -stable Code(s): D64.9 - ANEMIA, UNSPECIFIED Qualifiers: Iron deficiency anemia type: chronic blood loss (3) COPD (chronic obstructive pulmonary disease) Assessment/Plan: -stable -continue home regimen Code(s): J44.9 - CHRONIC OBSTRUCTIVE PULMONARY DISEASE, UNSPECIFIED Qualifiers : COPD type: COPD with acute exacerbation Qualified Code(s): J44.1 - Chronic obstructive pulmonary disease with (acute) exacerbation (4) Hyperlipidemia Assessment/Plan: -on lipitor at home -can restart on discharge Code(s): E78.5 - HYPERLIPIDEMIA, UNSPECIFIED Qualifiers: Hyperlipidemia type: Pure hypercholesterolemia Qualified Code(s): E78.0 - Pure hypercholesterolemia (5) Hypertension Assessment/Plan: -on coreg, amlodipine, and cozaar at home per records -continue to monitor, no emergent need for antihypertensives currently Code(s): I10 - ESSENTIAL (PRIMARY) HYPERTENSION Qualifiers: Hypertension type: essential hypertension Qualified Code(s): I10 - Essential (primary) hypertension
--- NOTE | 2016-11-27 15:55 | CON.CARD ---
Consult Consult Specialty:: Cardiology Referred by:: Darshan Garces MD Reason for Consultation:: V-pacing - History of Present Illness Chief Complaint: Hematochezia History of Present Illness: Patient is an 81 year old obese male with underlying history of severe home O2 @ 4L and steroid dependent COPD with h/o flares, pulmonary aspergillosis, ASHD post demand ischemic injury, angina pectoris, type 2 DM, HTN, hypercholesterolemia, GERD, CKD and carotid stenosis, AV block s/p PPM presented admitted with painless hematochezia, declines colonoscopy, poor f/u, has not had pacer interrogation in over a year. Allergies: levofloxacin Social history: denies current tobacco use (quit in 2010) or alcohol consumption Surgical History: gall bladder removed - History Source History Provided By: Patient Limitations to Obtaining History: Poor Historian - Past Medical History APPLICATIONS DEVELOPMENT CONSULTANT: Yes: Other (decreased hearing) Cardio/Vascular: Yes: CAD, CHF, HTN, Hyperlipdemia, Other (Right external carotid artery stenosis, tachycardia) Pulmonary: Yes: COPD, O2 Dependent, Other (pulmonary nodule) Gastrointestinal: Yes: Diverticulosis, GERD, Other (left inguinal hernia, duodinitis, colon polyps) Renal/: Yes: Renal Inusuff, BPH, Hematuria, Other (bladder dysfunction) Infectious Disease: Yes: Other (invasive pulmonary aspergillosis) Musculoskeletal: Yes: Chronic low back pain, Osteoarthritis, Other (dupuytren contracture) ENT: Yes: Other (KOI) Endocrine: Yes: Diabetes Mellitus - Past Surgical History Past Surgical History: Yes: Cholecystectomy (open), Permanent Pacemaker - Alcohol/Substance Use Hx Alcohol Use: No History of Substance Use: reports: None - Smoking History Smoking history: Former smoker Have you smoked in the past 12 months: No If you are a former smoker, when did you quit?: 10YRS AGO - Social History Usual Living Arrangement: With Child ADL: Family Assistance Occupation: , 4 children History of Recent Travel: No Home Medications - Allergies Allergies/Adverse Reactions: Allergies Allergy/AdvReac Type Severity Reaction Status Date / Time Iodinated Contrast Media - Allergy Rash Verified 11/23/16 19:20 Oral and [Iodinated Contrast Media - IV Dye] levofloxacin [From Levaquin] Allergy "RASH" Verified 11/23/16 19:20 - Home Medications Home Medications: Ambulatory Orders Amlodipine Besylate [Norvasc -] 10 mg PO DAILY 12/03/12 Aspirin Coated [Ecotrin -] 81 mg PO DAILY 12/03/12 Atorvastatin Ca [Lipitor] 20 mg PO HS 12/03/12 Budesonide [Pulmicort 0.5 mg Nebulizer -] 1 neb NEB HS 12/03/12 Multivit-Min/FA/Lycopene/Lut [Centrum Silver Tablet] 1 each PO DAILY 12/03/12 Tiotropium [place] [Spiriva] 1 inh IH HS 12/03/12 Cyanocobalamin (Vitamin B-12) [Cyanocobalamin] 1,000 mcg PO DAILY 06/27/14 Carvedilol [Coreg -] 12.5 mg PO BID #60 tablet 12/03/14 Losartan Potassium [Cozaar -] 100 mg PO DAILY #0 tablet 12/03/14 Cholecalciferol (Vitamin D3) [Vitamin D3 -] 2,000 unit PO DAILY 03/01/15 Albuterol Sulfate Inhaler - [Ventolin HFA Inhaler -] 1 - 2 inh PO QID #1 inhaler 03/12/16 Pantoprazole Sodium [Protonix -] 10 mg PO DAILY 11/23/16 Prednisone [Deltasone -] 5 mg PO DAILY 11/23/16 Risperidone [Risperdal] 1 mg PO BID 11/23/16 Family Disease History - Family Disease History Family Disease History: Other: Father ( 71 ? colon cancer), Mother ( 62 : "enlarged heart"), Sister (: CVA and AL), Daughter (CVA) Review of Systems - Review of Systems Gastrointestinal: reports: Rectal Bleeding Vital Signs: Vital Signs Temperature 97.8 F 11/27/16 14:29 Pulse Rate 96 H 11/27/16 14:29 Respiratory Rate 18 11/27/16 14:29 Blood Pressure 122/61 11/27/16 14:29 O2 Sat by Pulse Oximetry (%) 98 11/27/16 09:00 Constitutional: Yes: No Distress, Calm Neck: Yes: Supple Respiratory: Yes: Regular, Diminished Gastrointestinal: Yes: Normal Bowel Sounds, Soft, Abdomen, Obese Cardiovascular: Yes: Regular Rate and Rhythm JVD: No Carotid Bruit: No Heart Sounds: Yes: S1, S2 Edema: No - Other Data Labs, Other Data: CBC, BMP 11/27/16 06:40 11/27/16 06:40 INR, PTT INR 1.12 (0.82-1.09) 11/24/16 05:42 V-paced 113 Tele shows 8 beat wide complex tachycardia Ejection Fraction %: LVEF > or = 40 % Imaging - Results Chest X-ray: Report Reviewed (Chronic right base changes) Problem List - Problems (1) Anemia Code(s): D64.9 - ANEMIA, UNSPECIFIED Qualifiers: Iron deficiency anemia type: chronic blood loss (2) GI bleed Code(s): K92.2 - GASTROINTESTINAL HEMORRHAGE, UNSPECIFIED Qualifiers: GI bleed type/associated pathology: unspecified gastrointestinal hemorrhage type Qualified Code(s): K92.2 - Gastrointestinal hemorrhage, unspecified (3) COPD (chronic obstructive pulmonary disease) Code(s): J44.9 - CHRONIC OBSTRUCTIVE PULMONARY DISEASE, UNSPECIFIED Qualifiers : COPD type: COPD with acute exacerbation Qualified Code(s): J44.1 - Chronic obstructive pulmonary disease with (acute) exacerbation (4) Cardiac pacemaker in situ Code(s): Z95.0 - PRESENCE OF CARDIAC PACEMAKER (5) Diastolic dysfunction without heart failure Code(s): I51.9 - HEART DISEASE, UNSPECIFIED (6) High-grade atrioventricular block Code(s): I44.39 - OTHER ATRIOVENTRICULAR BLOCK (7) Renal insufficiency Code(s): N28.9 - DISORDER OF KIDNEY AND URETER, UNSPECIFIED (8) ASHD (arteriosclerotic heart disease) Code(s): I25.10 - ATHSCL HEART DISEASE OF [place] CORONARY ARTERY W/O ANG PCTRS (9) Decreased hearing Code(s): H91.90 - UNSPECIFIED HEARING LOSS, UNSPECIFIED EAR Qualifiers: Laterality: bilateral Qualified Code(s): H91.93 - Unspecified hearing loss, bilateral (10) Diabetes mellitus Code(s): E11.9 - TYPE 2 DIABETES MELLITUS WITHOUT COMPLICATIONS Qualifiers: Diabetes mellitus type: type 2 Diabetes mellitus complication status: with unspecified complications Diabetes mellitus jail insulin use: without jail use Qualified Code(s): E11.8 - Type 2 diabetes mellitus with unspecified complications; Z79.4 - nursing home (current) use of insulin (11) Hyperlipidemia Code(s): E78.5 - HYPERLIPIDEMIA, UNSPECIFIED Qualifiers: Hyperlipidemia type: pure hypercholesterolemia Qualified Code(s): E78.0 - Pure hypercholesterolemia (12) Hypertension Code(s): I10 - ESSENTIAL (PRIMARY) HYPERTENSION Qualifiers: Hypertension type: essential hypertension Qualified Code(s): I10 - Essential (primary) hypertension (13) Wide-complex tachycardia Code(s): I47.2 - VENTRICULAR TACHYCARDIA Assessment/Plan 10/26/14 Echo: Normal biventricular size and fxn without sig valve abnl 1. Wide-complex tachycardia 2. Hematochezia, anemia declines colonocopy 3 Steroid-dependent COPD 4. 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 Diastolic LV dysfunction 6. Advanced AV block post pacemaker implant 7. HTN 8. Hypercholesterolemia 9. DHEERAJ 10. CKD PLAN: 1. Resume Carvedilol 12.5 bid, losartan 100 qd, amlodipine 10 qd, Lipitor 20 qhs as hemodynamics tolerate, resume ASA 81 qd once hemostasis achieved, replete K, Mg 2. Bronchodilators, wean FIO2 for saO2>90%, and oral steroid with GI prophylaxis 3. Interrogate pacer which has not been performed in over 1 year 4. Echocardiogram to assess LV and valve fxn 5. Thank you for consultative opportunity
[2016-11-27] MEDS ORDERED: POTASSIUM CHLORIDE TABS 20 MEQ TABLET.ER (FP) PO ONE (16:52)
[2016-11-27] MEDS ORDERED: MAGNESIUM OXIDE 400 MG TABLET (FP) PO ONE (16:52)
[2016-11-27] MEDS: CARVEDILOL 6.25 MG TABLET (FP) PO SCH ×2 (17:42→22:05)
[2016-11-27 17:46] LABS: THYROID STIMULATING HORMONE 1.58 uIU/ml (0.358-3.74)
[2016-11-27] MEDS: BUDESONIDE 0.5 MG/2 ML INH SUSP VIAL NEB SCH (22:35)
[2016-11-28 08:31] LABS: MCHC 33.5 g/dl (32.0-35.9); MEAN CELL VOLUME 83.7 fl (80-96); MEAN PLT VOLUME 8.2 fl (7.5-11.1); PLATELET COUNT 181 K/MM3 (134-434); RDW 16.9 % (11.9-15.9); WHITE BLOOD COUNT 7.9 K/mm3 (4.0-10.0)
[2016-11-28] MEDS ORDERED: PT OWN MED DRAWER 7, Y5N ONE (09:09)
[2016-11-28 09:12] LABS: CALCIUM 8.8 mg/dL (8.5-10.1); CREATININE 1.7 mg/dL (0.7-1.3); MAGNESIUM 2.1 mg/dL (1.8-2.4); PHOSPHOROUS 2.9 mg/dL (2.5-4.9)
[2016-11-28] MEDS: PANTOPRAZOLE 40 MG TABLET (FP) PO SCH (09:13)
[2016-11-28] MEDS: CARVEDILOL 6.25 MG TABLET (FP) PO SCH (09:13)
[2016-11-28] MEDS: predniSONE 5 MG TABLET (UD) PO SCH (09:13)
[2016-11-28] MEDS: ACLIDINIUM BROMIDE 400 MCG/INH AERO.POWD IH SCH (09:13)
--- NOTE | 2016-11-28 10:02 | PN ---
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 History of poor compliance and medical follow up. Permanent pacemaker was interrogated and parameters were readjusted. Patient has had no follow up of his pacemaker since insertion. Denies chest pain or discomfort, history of dyspnea on minimal exertion. Patient is profoundly deaf. Active Medications Generic Name Dose Route Start Last Admin Trade Name Freq PRN Reason Stop Dose Admin Aclidinium [place] 1 puff 11/24/16 10:00 11/28/16 09:13 Tudorza - IH 1 inh BID DINESH Administration Albuterol Sulfate 2 puff 11/24/16 04:38 Ventolin Hfa Inhaler - IH Q6H PRN SHORTNESS OF BREATH Budesonide 1 amp 11/24/16 22:00 11/27/16 22:35 Pulmicort 0.5 Mg Nebulizer - NEB 1 amp HS DINESH Administration Carvedilol 6.25 mg 11/27/16 17:00 11/28/16 09:13 Coreg - PO 6.25 mg BID DINESH Administration Insulin Aspart 1 vial 11/26/16 16:30 11/27/16 22:27 Novolog Vial Sliding Scale - SQ Not Given ACHS ON LICENSE OF [facility] Protocol Pantoprazole Sodium 40 mg 11/26/16 22:00 11/28/16 09:13 Protonix - PO 40 mg BID DINESH Administration Prednisone 5 mg 11/24/16 10:00 11/28/16 09:13 Deltasone - PO 5 mg DAILY DINESH Administration O: 81 year old male was in no acute distress, no pallor, cyanosis, clubbing, or jaundice. Last Vital Signs Temp Pulse Resp BP Pulse Ox 98.4 F 97 H 20 152/86 98 11/28/16 06:00 11/28/16 06:00 11/28/16 06:00 11/28/16 06:00 11/27/16 21:00 Neck: Supple, no JVD, negative HJR, carotids were equal and upstrokes were normal, no thyromegaly appreciated. Heart: PMI was in the 5th intercostal space, no heaves or thrills, distant heart sounds, no murmur or gallops were appreciated. Lungs: Decreased breath sounds, no extraneous sounds heard. Abdomen: Soft, nontender, obese, no hepatosplenomegaly appreciated, and no palpable masses were felt. Extremities: No calf tenderness or dependent edema. CBC, BMP 11/28/16 06:20 Laboratory Results - last 24 hr 11/23/16 11/26/16 11/26/16 19:44 11:03 16:36 WBC RBC Hgb Hct MCV MCHC RDW Plt Count MPV POC Glucometer 109 113 TSH Blood Type A POSITIVE Antibody Screen Negative Crossmatch See Detail 11/26/16 11/27/16 11/27/16 21:04 06:04 06:40 WBC RBC Hgb Hct MCV MCHC RDW Plt Count MPV POC Glucometer 123 110 TSH 1.58 Blood Type Antibody Screen Crossmatch 11/27/16 11/27/16 11/27/16 11:51 16:15 17:15 WBC RBC Hgb Hct MCV MCHC RDW Plt Count MPV POC Glucometer 130 118 TSH Blood Type A POSITIVE Antibody Screen Negative Crossmatch See Detail 11/27/16 11/28/16 11/28/16 22:25 05:33 06:20 WBC 7.9 RBC 3.61 L D Hgb 10.1 L D Hct 30.2 L D MCV 83.7 MCHC 33.5 RDW 16.9 H Plt Count 181 MPV 8.2 POC Glucometer 108 98 TSH Blood Type Antibody Screen Crossmatch Impression: (1) Severe Anemia Code(s): D64.9 - ANEMIA, UNSPECIFIED Qualifiers: Iron deficiency anemia type: chronic blood loss (2) GI bleed Code(s): K92.2 - GASTROINTESTINAL HEMORRHAGE, UNSPECIFIED Qualifiers: GI bleed type/associated pathology: unspecified gastrointestinal hemorrhage type Qualified Code(s): K92.2 - Gastrointestinal hemorrhage, unspecified (3) COPD (chronic obstructive pulmonary disease) oxygen dependent Code(s): J44.9 - CHRONIC OBSTRUCTIVE PULMONARY DISEASE, UNSPECIFIED Qualifiers : COPD type: COPD with acute exacerbation Qualified Code(s): J44.1 - Chronic obstructive pulmonary disease with (acute) exacerbation (4) High-grade atrioventricular block Code(s): I44.39 - OTHER ATRIOVENTRICULAR BLOCK (5) S/P Permanent pacemaker (Biotronic) for advanced AV block Code(s): Z95.0 - PRESENCE OF CARDIAC PACEMAKER (6) Diastolic dysfunction without heart failure Code(s): I51.9 - HEART DISEASE, UNSPECIFIED (7) Renal insufficiency Code(s): N28.9 - DISORDER OF KIDNEY AND URETER, UNSPECIFIED (8) ASHD (arteriosclerotic heart disease) Code(s): I25.10 - ATHSCL HEART DISEASE OF [place] CORONARY ARTERY W/O ANG PCTRS (9) Profound Deafness Code(s): H91.90 - UNSPECIFIED HEARING LOSS, UNSPECIFIED EAR Qualifiers: Laterality: bilateral Qualified Code(s): H91.93 - Unspecified hearing loss, bilateral (10) Diabetes mellitus Code(s): E11.9 - TYPE 2 DIABETES MELLITUS WITHOUT COMPLICATIONS Qualifiers: Diabetes mellitus type: type 2 Diabetes mellitus complication status: with unspecified complications Diabetes mellitus rat exterminator insulin use: without group home use Qualified Code(s): E11.8 - Type 2 diabetes mellitus with unspecified complications; Z79.4 - terminal worker (current) use of insulin (11) Hyperlipidemia Code(s): E78.5 - HYPERLIPIDEMIA, UNSPECIFIED Qualifiers: Hyperlipidemia type: pure hypercholesterolemia Qualified Code(s): E78.0 - Pure hypercholesterolemia (12) Hypertension Code(s): I10 - ESSENTIAL (PRIMARY) HYPERTENSION Qualifiers: Hypertension type: essential hypertension Qualified Code(s): I10 - Essential (primary) hypertension (13) Wide-complex tachycardia Code(s): I47.2 - VENTRICULAR TACHYCARDIA Recommendations: 1. Patient requires close medical, pulmonary and cardiology follow up. 2. Need pacemaker interrogation according to protocol. 3. Risk modifications. Attestation: Documentation prepared by Rashaad Bella, acting as medical insurance verifier for Kory Wyman MD.
--- NOTE | 2016-11-28 11:48 | DS ---
Physical Examination Vital Signs: Vital Signs Temperature 98.4 F 11/28/16 06:00 Pulse Rate 97 H 11/28/16 06:00 Respiratory Rate 20 11/28/16 06:00 Blood Pressure 152/86 11/28/16 06:00 O2 Sat by Pulse Oximetry (%) 98 11/27/16 21:00 Constitutional: Yes: Well Nourished, No Distress, Calm Cardiovascular: Yes: Regular Rate and Rhythm. No: Gallop, Murmur, Rub Respiratory: Yes: Regular, CTA Bilaterally. No: Rales, Rhonchi, Wheezes Gastrointestinal: Yes: Normal Bowel Sounds, Soft. No: Distention, Tenderness Extremities: Yes: WNL Edema: No Labs: CBC, BMP 11/28/16 06:20 11/28/16 06:20 Discharge Summary Reason For Visit: GI BLEED Current Active Problems Anemia (Acute) GI bleed (Acute) Wide-complex tachycardia (Acute) Hospital Course: (1) GI bleed Code(s): K92.2 - GASTROINTESTINAL HEMORRHAGE, UNSPECIFIED Qualifiers: GI bleed type/associated pathology: unspecified gastrointestinal hemorrhage type Qualified Code(s): K92.2 - Gastrointestinal hemorrhage, unspecified (2) Anemia Code(s): D64.9 - ANEMIA, UNSPECIFIED Qualifiers: Iron deficiency anemia type: chronic blood loss (3) COPD (chronic obstructive pulmonary disease) Code(s): J44.9 - CHRONIC OBSTRUCTIVE PULMONARY DISEASE, UNSPECIFIED Qualifiers : COPD type: COPD with acute exacerbation Qualified Code(s): J44.1 - Chronic obstructive pulmonary disease with (acute) exacerbation (4) Hyperlipidemia Code(s): E78.5 - HYPERLIPIDEMIA, UNSPECIFIED Qualifiers: Hyperlipidemia type: pure hypercholesterolemia Qualified Code(s): E78.0 - Pure hypercholesterolemia (5) Hypertension Code(s): I10 - ESSENTIAL (PRIMARY) HYPERTENSION Qualifiers: Hypertension type: essential hypertension Qualified Code(s): I10 - Essential (primary) hypertension Mr Vee is an 81 year old male who came in with ABLA secondary to GI bleed. He was admitted to the hospital and started on protonix gtt. He was transfused and his H/H initially improved, however it trended back down requiring a second transfusion. He was prepped for EGD/colonoscopy, however he refused both. An ECHO was ordered and he refused this as well. Currently his H/H is doing well after second transfusion. Considering he is stable and we cannot do further work up here in the hospital, patient is stable for discharge with outpatient follow up. Recommend taking protonix 40mg bid for two weeks and then decrease to 40mg daily. Aspirin has been discontinued. 35 minutes spent in preparation of this discharge Condition: Stable - Instructions Diet, Activity, Other Instructions: diabetic diet. Up with assistance, further activity per PT. Take prednisone 40mg bid for two weeks and then decrease to 40mg daily. Referrals: Jd Cannon DO [Staff Physician] - George Rocha MD [Staff Physician] - Mat Thomas MD [Staff Physician] - Disposition: [facility] - Home Medications Comprehensive Discharge Medication List: Ambulatory Orders Atorvastatin Ca [Lipitor] 20 mg PO HS 12/03/12 Budesonide [Pulmicort 0.5 mg Nebulizer -] 1 neb NEB HS 12/03/12 Multivit-Min/FA/Lycopene/Lut [Centrum Silver Tablet] 1 each PO DAILY 12/03/12 Tiotropium [place] [Spiriva] 1 inh IH HS 12/03/12 Cyanocobalamin (Vitamin B-12) [Cyanocobalamin] 1,000 mcg PO DAILY 06/27/14 Losartan Potassium [Cozaar -] 100 mg PO DAILY #0 tablet 12/03/14 Cholecalciferol (Vitamin D3) [Vitamin D3 -] 2,000 unit PO DAILY 03/01/15 Albuterol Sulfate Inhaler - [Ventolin HFA Inhaler -] 1 - 2 inh PO QID #1 inhaler 03/12/16 Prednisone [Deltasone -] 5 mg PO DAILY 11/23/16 Risperidone [Risperdal] 1 mg PO BID 11/23/16 Carvedilol [Coreg -] 6.25 mg PO BID tablet 11/28/16 Pantoprazole Sodium [Protonix -] 40 mg PO BID 11/28/16
[2016-11-28] MEDS: INSULIN SLIDING SCALE (NOVOLOG) 1 VIAL SQ SCH (12:00)
[2016-11-28 14:46] VITALS: BP 124/60; PULSE 79; TEMP 97.6
== END 2016-11-28 14:57 | disposition home or self-care (01) | DRG 378 ==
LOC: JER 19:12 → JERBED 23:55 → J4S 11-24 01:29
PROVIDERS: ADMIT Internal Medicine; ATTEND Internal Medicine
PROC: 30233N1 Transfusion of Nonautologous Red Blood Cells into Peripheral Vein, Percutaneous Approach (ICD-10-PCS; principal; 2016-11-24)
DX: K92.2 Gastrointestinal hemorrhage, unspecified (principal); I47.2 Ventricular tachycardia; I13.0 Hypertensive heart and chronic kidney disease with heart failure and stage 1 through stage 4 chronic kidney disease, or unspecified chronic kidney disease; D64.9 Anemia, unspecified; J44.9 Chronic obstructive pulmonary disease, unspecified; E78.5 Hyperlipidemia, unspecified; N18.9 Chronic kidney disease, unspecified; Z95.0 Presence of cardiac pacemaker; H91.90 Unspecified hearing loss, unspecified ear; I25.119 Atherosclerotic heart disease of native coronary artery with unspecified angina pectoris; E11.9 Type 2 diabetes mellitus without complications; G47.33 Obstructive sleep apnea (adult) (pediatric); K21.9 Gastro-esophageal reflux disease without esophagitis; N40.0 Benign prostatic hyperplasia without lower urinary tract symptoms; Z87.891 Personal history of nicotine dependence; E66.9 Obesity, unspecified; Z68.32 Body mass index [BMI] 32.0-32.9, adult; I50.9 Heart failure, unspecified
CPT/HCPCS: 36415; 36430; 36511; 71010-TC; 80048; 80053; 82272; 82550; 83735; 84100; 84443; 84484; 85025; 85027; 85610; 85730; 86850; 86900; 86901; 86922; 93005; 93010; 93306-TC; 94640; 97116-GP; 97161-GP; 99284-25; P9038; P9058

== ENCOUNTER 2017-03-07 20:51 | Inpatient (IN) | payer OTHER, BC ==
--- NOTE | 2017-03-07 21:07 | PDOC ---
History of Present Illness - General History Source: Patient Exam Limitations: No Limitations - History of Present Illness Initial Comments: 03/07/17 21:31 Patient is a 82 year old male with a significant past medical history of Coronary artery disease, CHF, hypertension, hyperlipidemia, right extremity carotid artery stenosis, COPD, dependent on oxygen, diverticulosis, GERD, left inguinal hernia, CKD, BPH, B12 deficiency, invasive pulmonary aspergillosis, diabetes mellitus, arthritis and low back pain chronic, who presents to the ED with worsening RLQ and mid abdominal pain, rectal bleeding and dizziness. Patient was admitted 11/24/16 for rectal bleeding and he refused colonoscopy and endoscopy because he states that he is scared he will during the procedure . As per family, the patient has been hiding rectal bleeding since November and has been complaining of abdominal pain since his dc from [facility]. He reports decreased appetite. <Flavia Mccord - Last Filed: 03/08/17 00:38> - General History Source: Patient Exam Limitations: No Limitations <Josselyn Mike - Last Filed: 03/08/17 01:27> - General Stated Complaint: ABD PAIN Time Seen by Provider: 03/07/17 20:57 Past History <Flavia Mccord - Last Filed: 03/08/17 00:38> - Past Medical History Anemia: No Asthma: (EMPHYSEMA-NASAL 2L) Cancer: No Cardiac Disorders: Yes ("HEART DISEASE") CVA: No COPD: Yes (2-3L NC) CHF: Yes Dementia: No Diabetes: No GI Disorders: Yes (ACID REFLUX) Disorders: No HTN: Yes Hypercholesterolemia: Yes Liver Disease: No Seizures: No Thyroid Disease: No - Surgical History Abdominal Surgery: No Appendectomy: No Cardiac Surgery: Yes (PPM) Cholecystectomy: Yes Lung Surgery: No Neurologic Surgery: No Orthopedic Surgery: No - Immunization History Td Vaccination: No TDAP Vaccination: No Immunization Up to Date: No - Psycho/Social/Smoking Cessation Hx Anxiety: No Suicidal Ideation: No Smoking History: Former smoker Have you smoked in the past 12 months: No If you are a former smoker, when did you quit?: 10YRS AGO Hx Alcohol Use: No Drug/Substance Use Hx: No Substance Use Type: None Hx Substance Use Treatment: No <Josselyn Mike - Last Filed: 03/08/17 01:27> - Past Medical History Allergies/Adverse Reactions: Allergies Allergy/AdvReac Type Severity Reaction Status Date / Time Iodinated Contrast Media - Allergy Rash Verified 03/07/17 21:12 Oral and [Iodinated Contrast Media - IV Dye] levofloxacin [From Levaquin] Allergy "RASH" Verified 03/07/17 21:12 Home Medications: Ambulatory Orders Atorvastatin Ca [Lipitor] 20 mg PO HS 12/03/12 Budesonide [Pulmicort 0.5 mg Nebulizer -] 1 neb NEB HS 12/03/12 Multivit-Min/FA/Lycopene/Lut [Centrum Silver Tablet] 1 each PO DAILY 12/03/12 Tiotropium [place] [Spiriva] 1 inh IH HS 12/03/12 Cyanocobalamin (Vitamin B-12) [Cyanocobalamin] 1,000 mcg PO DAILY 06/27/14 Losartan Potassium [Cozaar -] 100 mg PO DAILY #0 tablet 12/03/14 Cholecalciferol (Vitamin D3) [Vitamin D3 -] 2,000 unit PO DAILY 03/01/15 Albuterol Sulfate Inhaler - [Ventolin HFA Inhaler -] 1 - 2 inh PO QID #1 inhaler 03/12/16 Prednisone [Deltasone -] 5 mg PO DAILY 11/23/16 Risperidone [Risperdal] 1 mg PO BID 11/23/16 Carvedilol [Coreg -] 6.25 mg PO BID #60 tablet 11/28/16 Pantoprazole Sodium [Protonix -] 40 mg PO BID #60 11/28/16 Review of Systems - Review of Systems Able to Perform ROS?: Yes Comments:: 03/07/17 21:32 GENERAL/CONSTITUTIONAL: No: fever, chills, weakness, loss of appetite. HEAD, EYES, EARS, NOSE AND THROAT: No: change in vision, ear pain, discharge, sore throat, throat swelling. CARDIOVASCULAR: No: chest pain, lightheadedness, palpitations, syncope RESPIRATORY: No: cough, shortness of breath, wheezing, hemoptysis, stridor. GASTROINTESTINAL: +abdominal pain, rectal bleeding. No: nausea, vomiting, abdominal cramping, diarrhea, constipation. GENITOURINARY: No: dysuria, hematuria, frequency, urgency, flank pain. MUSCULOSKELETAL: No: back pain, neck pain, joint pain, muscle swelling or pain SKIN: No: lesions, pallor, rash or easy bruising. NEUROLOGIC: No: headache, vertigo, paresthesias, weakness ENDOCRINE: No: unexplained weight gain or loss HEMATOLOGIC/LYMPHATIC: No: anemia, easy bleeding, swelling nodes <Flavia Mccord - Last Filed: 03/08/17 00:38> *Physical Exam - Vital Signs Last Vital Signs Temp Pulse Resp BP Pulse Ox 98.3 F 82 14 128/69 99 03/07/17 21:12 03/07/17 21:12 03/07/17 21:12 03/07/17 21:12 03/07/17 21:12 - Physical Exam Comments: 03/07/17 21:32 GENERAL: The patient is in no acute distress. HEAD: Normal with no signs of trauma. EYES: PERRLA, EOMI, sclera anicteric, conjunctiva clear. ENT: Ears normal, nares patent, oropharynx clear without exudates. Moist mucous membranes. NECK: Normal range of motion, supple without lymphadenopathy, JVD, or masses. LUNGS: Breath sounds equal, clear to auscultation bilaterally. No wheezes, and no crackles. HEART:Regular rate and rhythm, normal S1 and S2 without murmur, rub or gallop. ABDOMEN: (+) RLQ and LLQ abdominal pain upon palpation. Soft, normoactive bowel sounds. No guarding, no rebound. RECTAL EXAM: (+) Blood tinged stool, No hemorrhoids. EXTREMITIES: Normal range of motion, no edema. No clubbing or cyanosis. No erythema, or tenderness. NEUROLOGICAL: Cranial nerves II through XII grossly intact. Normal speech. No focal neurological deficits. MUSCULOSKELETAL: Back nontender to palpation, no CVA tenderness SKIN: (+)diffuse Skin plaques. Warm, Dry, normal turgor, no rashes or lesions noted. <Flavia Mccord - Last Filed: 03/08/17 00:38> ED Treatment Course - LABORATORY CBC & Chemistry Diagram: 03/07/17 22:10 03/07/17 22:10 - RADIOLOGY Radiology Studies Ordered: 03/08/17 00:38 THIS IS A PRELIMINARY REPORT FROM IMAGING CERTIFIED PHYSICAL THERAPIST ASSISTANT Nodular densities right middle lobe, question pulmonary nodules versus vasular malformation. Advise correlation with chest CT. Emphysematous changes lung bases. Pacemaker. Diverticulosis colon with fat stranding around descending colon, probably acute diverticulitis. No bowel obstruction, free fluid or free air. Normal appendix. Right nephrolithiasis. No ureterolithiasis or obstructive uropathy. No bladder calculi. Ventral hernia repair with small recurrent/residual right lower quadrant hernia containing fat. Partly seen left inguinal region hernia containing nondilated, nonthickened loops of small bowel. Unremarkable pancreas. Cholecystectomy. Atherosclerotic calcifications aorta and branches with Coronary artery disease. THIS DOCUMENT HAS BEEN ELECTRONICALLY SIGNED Jacinta Sotelo M.D. <Flavia Mccord - Last Filed: 03/08/17 00:38> - LABORATORY CBC & Chemistry Diagram: 03/07/17 22:10 03/07/17 22:10 <Josselyn Mike - Last Filed: 03/08/17 01:27> Medical Decision Making - Medical Decision Making 03/07/17 21:07 A portion of this note was documented by scribe services under my direction. I have reviewed the details of the note, within reason, and agree with the documentation with the following case summary and management plan written by me. Nursing documentation reviewed and incorporated into medical decision making 03/07/17 21:37 This is an 82 yo M h/o CAD, HTN, HLD, COPD (O2 dependent) presenting to the ER with a complaint of abdominal pain and continued rectal bleeding The patient was admitted 3 months ago for rectal bleeding, requiring transfusion Pt was seen by GI plan for endoscopy and colonoscopy Pt refused this and Blood counts ultimately stabilized, he was discharged to home According to family member who accompanies this patient, he likely had continued rectal bleeding after discharge (he knew this because they note blood on the toilet paper). The patient was brought in to the ER today because although he always complains of abdominal pain, he has been complaining more He has had decreased po intake he had been noted to lose weight No fevers, no chills No diarrhea No vomiting DD: diverticular bleed, diverticulosis, colonic mass, appendicitis 03/07/17 21:41 Will do labs will do CT (pt allergic to contrast, will do non contrast) Guiaic sent Will plan to admit 03/07/17 21:45 03/07/17 22:53 Laboratory Tests 11/28/16 11/28/16 03/07/17 06:20 06:20 22:10 WBC 7.9 8.8 Hgb 10.1 L D 9.3 L Hct 30.2 L D 28.7 L Plt Count 181 257 D INR BUN 20 H D Creatinine 1.7 H Total Amylase Lipase Stool Occult Blood 03/07/17 03/07/17 03/07/17 22:10 22:10 22:10 WBC Hgb Hct Plt Count INR 1.20 H BUN 20 H Creatinine 1.9 H Total Amylase 46 Lipase 133 Stool Occult Blood Negative 03/08/17 01:26 CT demonstrates acute diverticulitis Pt has allergy to Levaquin Will give Zosyn and Flagyl Case reviewed with Dr Herring Pt has severe abdominal tenderness and not eating clinical impression: diverticulitis <Josselyn Mike - Last Filed: 03/08/17 01:27> *DC/Admit/Observation/Transfer - Attestations Scribe Attestion: 03/07/17 21:34 Documentation prepared by LORENA Luna, acting as medical pathologist for Josselyn Mike MD. <Flavia Mccord - Last Filed: 03/08/17 00:38> - Discharge Dispostion Admit: Yes <Josselyn Mike - Last Filed: 03/08/17 01:27> Diagnosis at time of Disposition: Diverticulitis of large intestine Qualifiers: Diverticulitis bleeding: without bleeding Diverticulitis complication: without perforation or abscess Qualified Code(s): K57.32 - Diverticulitis of large intestine without perforation or abscess without bleeding - Discharge Dispostion Condition at time of disposition: Stable
[2017-03-07 21:14] VITALS: BMI 27.4
[2017-03-07 22:16] LABS: BASOPHIL 1.1 % (0-2.0); EOSINOPHIL 5.1 % (0-4.5); MCH 26.3 pg (25.7-33.7); MCHC 32.3 g/dl (32.0-35.9); MEAN CELL VOLUME 81.3 fl (80-96); MEAN PLT VOLUME 7.8 fl (7.5-11.1); NEUTROPHILS 75.9 % (42.8-82.8); PLATELET COUNT 257 K/MM3 (134-434); RDW 16.4 % (11.9-15.9); WHITE BLOOD COUNT 8.8 K/mm3 (4.0-10.0)
[2017-03-07 22:31] LABS: INR 1.2 (0.82-1.09); PROTHROMBIN TIME (PATIENT) 13.2 SEC (9.98-11.88)
[2017-03-07 22:45] LABS: AMYLASE 46 U/L (25-115); ANION GAP 9 (8-16); BILIRUBIN,TOTAL 0.7 mg/dL (0.2-1.0); CALCIUM 9.9 mg/dL (8.5-10.1); CO2 30 mmol/L (21-32); CREATININE 1.9 mg/dL (0.7-1.3); GLUCOSE,RANDOM 97 mg/dL (74-106); SGOT/AST 8 U/L (15-37); SGPT/ALT 16 U/L (12-78); TOT PROT 6.8 g/dl (6.4-8.2)
[2017-03-07 22:46] LABS: ALK PHOS 71 U/L (45-117)
[2017-03-08] MEDS ORDERED: METRONIDAZOLE 500 MG PREMIXED 100 ML IVPB ONE ×3 (00:39→17:47)
[2017-03-08] MEDS ORDERED: PIPERACILLIN/TAZOB 4.5 GM 4.5 GM in DEXTROSE 5%-WATER - 100 ML IVPB ONE (00:39)
[2017-03-08] MEDS ORDERED: PANTOPRAZOLE 40 MG TABLET (FP) PO ONE (00:48)
[2017-03-08] MEDS ORDERED: ACETAMINOPHEN 325 MG TABLET (FP) PO PRN (00:52)
[2017-03-08] MEDS ORDERED: ONDANSETRON 4 MG/2 ML VIAL IVPB PRN (00:52)
[2017-03-08] MEDS ORDERED: ALBUTEROL SO4 2.5/IPRATROPIUM 0.5 INH SOL 3 ML VIAL.NEB. NEB PRN (00:56)
[2017-03-08] MEDS ORDERED: PIPERACILLIN/TAZOB 4.5 GM 100 ML IVPB ONE (01:08)
[2017-03-08] MEDS: SODIUM CHLORIDE 1,000 ML IV SCH (01:17)
[2017-03-08] MEDS ORDERED: CARVEDILOL 3.125 MG TABLET (FP) ONE (09:30)
[2017-03-08] MEDS ORDERED: PANTOPRAZOLE 40 MG TABLET (FP) ONE (09:30)
[2017-03-08] MEDS ORDERED: LOSARTAN POTASSIUM 25 MG TABLET ONE (09:31)
[2017-03-08] MEDS ORDERED: risperiDONE 0.5 MG TABLET (FP) ONE (09:32)
[2017-03-08] MEDS: predniSONE 5 MG TABLET (UD) PO SCH (09:47)
[2017-03-08] MEDS: LOSARTAN POTASSIUM 50 MG TABLET (FP) PO SCH (09:47)
[2017-03-08] MEDS: CARVEDILOL 6.25 MG TABLET (FP) PO SCH ×2 (09:47→22:46)
[2017-03-08] MEDS: risperiDONE 1 MG TABLET (FP) PO SCH ×2 (09:48→22:47)
[2017-03-08] MEDS: PANTOPRAZOLE 40 MG TABLET (FP) PO SCH (09:48)
--- NOTE | 2017-03-08 10:11 | EKG ---
Test Reason : Blood Pressure : / mmHG Vent. Rate : 079 BPM Atrial Rate : 079 BPM P-R Int : 148 ms QRS Dur : 184 ms QT Int : 456 ms P-R-T Axes : 000 -86 080 degrees QTc Int : 522 ms POOR DATA QUALITY, INTERPRETATION MAY BE ADVERSELY AFFECTED Atrial-sensed ventricular-paced rhythm ABNORMAL ECG WHEN COMPARED WITH ECG OF 23-NOV-2016 20:19, VENT. RATE HAS DECREASED BY 15 BPM Confirmed by WALKER KUMARI MD ([id number]) on 03/08/2017 10:10:41 AM Referred By: Confirmed By:WALKER KUMARI MD
[2017-03-08] MEDS: CHOLECALCIFEROL (VITAMIN D3) 1,000 UNIT TABLET (FP) PO SCH (10:20)
[2017-03-08] MEDS: CYANOCOBALAMIN 1,000 MCG TABLET (FP) PO SCH (10:20)
[2017-03-08] MEDS: METRONIDAZOLE 500 MG PREMIXED 100 ML IVPB SCH ×3 (10:38→19:48)
--- NOTE | 2017-03-08 12:55 | HP ---
Admitting History and Physical - Admission Chief Complaint: Rectal bleeding, abdominal discomfort History of Present Illness: Has not been seen by MD for several months Apparently has been having periodic rectal bleeding at home which he tries to hide from family members and for which he has not sought physician referral Was brought to ER today where a CT scan shows possible diverticulitis, despite soft abdomen with no clear evidence of abdominal pain, guarding or rebound at this time. 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: Other (decreased hearing) Cardiovascular: Yes: CAD, CHF, HTN, Hyperlipdemia, Other (Right external carotid artery stenosis, tachycardia PPM) Pulmonary: Yes: COPD, O2 Dependent, Other (pulmonary nodules h/o invasive Aspergillosis) Gastrointestinal: Yes: Diverticulitis (as per today's CT), Diverticulosis, GERD , Other (left inguinal hernia, duodinitis, colon polyps) Renal/: Yes: Renal Inusuff, BPH, Hematuria, Other (bladder dysfunction) Heme/Onc: Yes: B12 Deficiency Infectious Disease: Yes: Other (h/o invasive pulmonary aspergillosis) Musculoskeletal: Yes: Chronic low back pain, Osteoarthritis, Other (dupuytren contracture) ENT: Yes: Other ([place]) Endocrine: Yes: Diabetes Mellitus - Past Surgical History Past Surgical History: Yes: Cholecystectomy (open), Permanent Pacemaker - Smoking History Smoking history: Former smoker Have you smoked in the past 12 months: No If you are a former smoker, when did you quit?: 10YRS AGO - Alcohol/Substance Use Hx Alcohol Use: No History of Substance Use: reports: None - Social History Usual Living Arrangement: Yes: With Spouse ADL: Family Assistance Occupation: , 4 children History of Recent Travel: No Home Medications - Allergies Allergies/Adverse Reactions: Allergies Allergy/AdvReac Type Severity Reaction Status Date / Time Iodinated Contrast Media - Allergy Rash Verified 03/07/17 21:12 Oral and [Iodinated Contrast Media - IV Dye] levofloxacin [From Levaquin] Allergy "RASH" Verified 03/07/17 21:12 - Home Medications Home Medications: Ambulatory Orders Atorvastatin Ca [Lipitor] 20 mg PO HS 12/03/12 Budesonide [Pulmicort 0.5 mg Nebulizer -] 1 neb NEB 03/15/13 Multivit-Min/FA/Lycopene/Lut [Centrum Silver Tablet] 1 each PO DAILY 12/03/12 Tiotropium [place] [Spiriva] 1 inh IH HS 12/03/12 Cyanocobalamin (Vitamin B-12) [Cyanocobalamin] 1,000 mcg PO DAILY 06/27/14 Losartan Potassium [Cozaar -] 100 mg PO DAILY #0 tablet 12/03/14 Cholecalciferol (Vitamin D3) [Vitamin D3 -] 2,000 unit PO DAILY 03/01/15 Prednisone [Deltasone -] 5 mg PO DAILY 11/23/16 Risperidone [Risperdal] 1 mg PO BID 11/23/16 Carvedilol [Coreg -] 6.25 mg PO BID #60 tablet 11/28/16 Pantoprazole Sodium [Protonix -] 40 mg PO BID #60 11/28/16 Albuterol Sulfate Inhaler - [Ventolin HFA Inhaler -] 1 - 2 inh PO QID PRN Family Disease History - Family Disease History Family Disease History: Other: Father ( 71 ? colon cancer), Mother ( 62 : "enlarged heart"), Sister (: CVA and [place]), Daughter (CVA) Review of Systems - Review of Systems Constitutional: reports: Weakness Eyes: reports: No Symptoms HENT: reports: Hearing Loss Cardiovascular: reports: No Symptoms Respiratory: reports: SOB, Other (O2 dependent) Gastrointestinal: reports: Rectal Bleeding Neurological: reports: No Symptoms Psychiatric: reports: Other (Behavior disorder) Physical Examination Vital Signs: Vital Signs Temperature 97.8 F 03/08/17 07:45 Pulse Rate 95 H 03/08/17 07:45 Respiratory Rate 20 03/08/17 07:45 Blood Pressure 141/63 03/08/17 07:45 O2 Sat by Pulse Oximetry (%) 97 03/08/17 07:45 Constitutional: Yes: Well Nourished, Anxious Eyes: No: Sclera Icterus Neck: Yes: Supple Cardiovascular: Yes: Regular Rate and Rhythm Respiratory: Yes: CTA Bilaterally (with decreased breath sounds) Gastrointestinal: Yes: Normal Bowel Sounds, Soft. No: Palpable Mass, Tenderness ...Rectal Exam: Yes: Deferred Edema: No Neurological: Yes: Alert Imaging - Results Chest X-ray: Report Reviewed Problem List - Problems (1) Diverticulitis large intestine Assessment/Plan: GI and possible surgical assessment. Empiric antibiotic therapy based on CT findings Code(s): K57.32 - DVTRCLI OF LG INT W/O PERFORATION OR ABSCESS W/O BLEEDING Qualifiers: Diverticulitis bleeding: without bleeding Diverticulitis complication: without perforation or abscess Qualified Code(s): K57.32 - Diverticulitis of large intestine without perforation or abscess without bleeding (2) GI bleed Assessment/Plan: GI assessment Code(s): K92.2 - GASTROINTESTINAL HEMORRHAGE, UNSPECIFIED Qualifiers: GI bleed type/associated pathology: unspecified gastrointestinal hemorrhage type Qualified Code(s): K92.2 - Gastrointestinal hemorrhage, unspecified (3) Anemia Assessment/Plan: Multifactorial GI assessment regarding family concern regarding bleeding Check iron studies Code(s): D64.9 - ANEMIA, UNSPECIFIED Qualifiers: Iron deficiency anemia type: chronic blood loss (4) COPD (chronic obstructive pulmonary disease) Assessment/Plan: Chronic stable Code(s): J44.9 - CHRONIC OBSTRUCTIVE PULMONARY DISEASE, UNSPECIFIED Qualifiers : COPD type: COPD with acute exacerbation Qualified Code(s): J44.1 - Chronic obstructive pulmonary disease with (acute) exacerbation (5) Cardiac pacemaker in situ Assessment/Plan: Stable Code(s): Z95.0 - PRESENCE OF CARDIAC PACEMAKER (6) Diastolic dysfunction without heart failure Assessment/Plan: Chronic stable Code(s): I51.9 - HEART DISEASE, UNSPECIFIED (7) Renal insufficiency Assessment/Plan: Monitor labs and volume status Code(s): N28.9 - DISORDER OF KIDNEY AND URETER, UNSPECIFIED (8) ASHD (arteriosclerotic heart disease) Assessment/Plan: Chronic stable Cardiologic follow-up Code(s): I25.10 - ATHSCL HEART DISEASE OF [place] CORONARY ARTERY W/O ANG PCTRS (9) Decreased hearing Assessment/Plan: Chronic Code(s): H91.90 - UNSPECIFIED HEARING LOSS, UNSPECIFIED EAR Qualifiers: Laterality: bilateral Qualified Code(s): H91.93 - Unspecified hearing loss, bilateral (10) Diabetes mellitus Assessment/Plan: Monitor Code(s): E11.9 - TYPE 2 DIABETES MELLITUS WITHOUT COMPLICATIONS Qualifiers: Diabetes mellitus type: type 2 Diabetes mellitus complication status: with unspecified complications Diabetes mellitus mcc insulin use: without mcc use Qualified Code(s): E11.8 - Type 2 diabetes mellitus with unspecified complications; 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
--- NOTE | 2017-03-08 14:00 | CON.CARD ---
Consult Consult Specialty:: Cardiology Referred by:: Connor Rocha MD Reason for Consultation:: Hematochezia - History of Present Illness Chief Complaint: Hematochezia History of Present Illness: Patient is an 81 year old obese male with underlying history of severe home O2 @ 4L and steroid dependent COPD with h/o flares, pulmonary aspergillosis, ASHD post demand ischemic injury, angina pectoris, type 2 DM, HTN, hypercholesterolemia, GERD, CKD and carotid stenosis, AV block s/p PPM presented admitted with painless hematochezia, declines colonoscopy, poor f/u, has not had pacer interrogation in over a year. CT scan shows possible diverticulitis, despite soft abdomen with no clear evidence of abdominal pain, guarding or rebound at this time. 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 hearing) Cardio/Vascular: Yes: CAD, CHF, HTN, Hyperlipdemia, Other (Right external carotid artery stenosis, tachycardia PPM) Pulmonary: Yes: COPD, O2 Dependent, Other (pulmonary nodules h/o invasive Aspergillosis) Gastrointestinal: Yes: Diverticulitis (as per today's CT), Diverticulosis, GERD , Other (left inguinal hernia, duodinitis, colon polyps) Renal/: Yes: Renal Inusuff, BPH, Hematuria, Other (bladder dysfunction) Infectious Disease: Yes: Other (h/o invasive pulmonary aspergillosis) Musculoskeletal: Yes: Chronic low back pain, Osteoarthritis, Other (dupuytren contracture) ENT: Yes: Other ([place]) Endocrine: Yes: Diabetes Mellitus - Past Surgical History Past Surgical History: Yes: Cholecystectomy (open), Permanent Pacemaker - Alcohol/Substance Use Hx Alcohol Use: No History of Substance Use: reports: None - Smoking History Smoking history: Former smoker Have you smoked in the past 12 months: No If you are a former smoker, when did you quit?: 10YRS AGO - Social History Usual Living Arrangement: With Child ADL: Family Assistance Occupation: , 4 children History of Recent Travel: No Home Medications - Allergies Allergies/Adverse Reactions: Allergies Allergy/AdvReac Type Severity Reaction Status Date / Time Iodinated Contrast Media - Allergy Rash Verified 06/17/17 21:12 Oral and [Iodinated Contrast Media - IV Dye] levofloxacin [From Levaquin] Allergy "RASH" Verified 03/07/17 21:12 - Home Medications Home Medications: Ambulatory Orders Atorvastatin Ca [Lipitor] 20 mg PO HS 12/03/12 Budesonide [Pulmicort 0.5 mg Nebulizer -] 1 neb NEB HS 12/03/12 Multivit-Min/FA/Lycopene/Lut [Centrum Silver Tablet] 1 each PO DAILY 12/03/12 Tiotropium [place] [Spiriva] 1 inh IH HS 12/03/12 Cyanocobalamin (Vitamin B-12) [Cyanocobalamin] 1,000 mcg PO DAILY 06/27/14 Losartan Potassium [Cozaar -] 100 mg PO DAILY #0 tablet 12/03/14 Cholecalciferol (Vitamin D3) [Vitamin D3 -] 2,000 unit PO DAILY 03/01/15 Prednisone [Deltasone -] 5 mg PO DAILY 11/23/16 Risperidone [Risperdal] 1 mg PO BID 11/23/16 Carvedilol [Coreg -] 6.25 mg PO BID #60 tablet 11/28/16 Pantoprazole Sodium [Protonix -] 40 mg PO BID #60 11/28/16 Albuterol Sulfate Inhaler - [Ventolin HFA Inhaler -] 1 - 2 inh PO QID PRN Family Disease History - Family Disease History Family Disease History: Other: Father ( 71 ? colon cancer), Mother ( 62 : "enlarged heart"), Sister (: CVA and [place]), Daughter (CVA) Review of Systems - Review of Systems Gastrointestinal: reports: Rectal Bleeding Vital Signs: Vital Signs Temperature 97.8 F 03/08/17 07:45 Pulse Rate 95 H 03/08/17 07:45 Respiratory Rate 20 03/08/17 07:45 Blood Pressure 141/63 03/08/17 07:45 O2 Sat by Pulse Oximetry (%) 97 03/08/17 07:45 Constitutional: Yes: No Distress, Calm Neck: Yes: Supple Respiratory: Yes: Regular, Diminished Gastrointestinal: Yes: Normal Bowel Sounds, Soft Cardiovascular: Yes: Regular Rate and Rhythm JVD: No Carotid Bruit: No Heart Sounds: Yes: S1, S2 Murmur: Yes: Systolic Murmur, Grade 2 Edema: No - Other Data Labs, Other Data: INR, PTT INR 1.20 (0.82-1.09) H 03/07/17 22:10 A-V paced Imaging - Results Chest X-ray: Report Reviewed (Chronic right base changes) Problem List - Problems (1) Diverticulitis large intestine Code(s): K57.32 - DVTRCLI OF LG INT W/O PERFORATION OR ABSCESS W/O BLEEDING Qualifiers: Diverticulitis bleeding: without bleeding Diverticulitis complication: without perforation or abscess Qualified Code(s): K57.32 - Diverticulitis of large intestine without perforation or abscess without bleeding (2) Anemia Code(s): D64.9 - ANEMIA, UNSPECIFIED Qualifiers: Iron deficiency anemia type: chronic blood loss (3) COPD (chronic obstructive pulmonary disease) Code(s): J44.9 - CHRONIC OBSTRUCTIVE PULMONARY DISEASE, UNSPECIFIED Qualifiers : COPD type: COPD with acute exacerbation Qualified Code(s): J44.1 - Chronic obstructive pulmonary disease with (acute) exacerbation (4) Cardiac pacemaker in situ Code(s): Z95.0 - PRESENCE OF CARDIAC PACEMAKER (5) GI bleed Code(s): K92.2 - GASTROINTESTINAL HEMORRHAGE, UNSPECIFIED Qualifiers: GI bleed type/associated pathology: unspecified gastrointestinal hemorrhage type Qualified Code(s): K92.2 - Gastrointestinal hemorrhage, unspecified (6) High-grade atrioventricular block Code(s): I44.39 - OTHER ATRIOVENTRICULAR BLOCK (7) Renal insufficiency Code(s): N28.9 - DISORDER OF KIDNEY AND URETER, UNSPECIFIED (8) ASHD (arteriosclerotic heart disease) Code(s): I25.10 - ATHSCL HEART DISEASE OF [place] CORONARY ARTERY W/O ANG PCTRS (9) Diabetes mellitus Code(s): E11.9 - TYPE 2 DIABETES MELLITUS WITHOUT COMPLICATIONS Qualifiers: Diabetes mellitus type: type 2 Diabetes mellitus complication status: with unspecified complications Diabetes mellitus retirement insulin use: without retirement use Qualified Code(s): E11.8 - Type 2 diabetes mellitus with unspecified complications; Z79.4 - skilled nursing (current) use of insulin (10) Hyperlipidemia Code(s): E78.5 - HYPERLIPIDEMIA, UNSPECIFIED Qualifiers: Hyperlipidemia type: pure hypercholesterolemia Qualified Code(s): E78.00 - Pure hypercholesterolemia, unspecified; E78.0 - Pure hypercholesterolemia (11) Hypertension Code(s): I10 - ESSENTIAL (PRIMARY) HYPERTENSION Qualifiers: Hypertension type: essential hypertension Qualified Code(s): I10 - Essential (primary) hypertension (12) Systolic dysfunction without heart failure Code(s): I51.9 - HEART DISEASE, UNSPECIFIED Assessment/Plan 10/26/14 Echo: Normal biventricular size and fxn without sig valve abnl 11/28/2016 Echo: Mod-severely decreased LV fxn with severe HK lateral and inferolateral, mold MR, TR RVSP 40-50 mmHg 1. Hematochezia, anemia referable to diverticulitis 2. 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 LV systolic dysfunction 5. Advanced AV block post pacemaker implant 6. HTN 7. Hypercholesterolemia 8. DHEERAJ 9. CKD PLAN: 1. Continue Carvedilol 6.25 bid, losartan 100 qd, Lipitor 20 qhs as hemodynamics tolerate, resume ASA 81 qd once hemostasis achieved, 2. Bronchodilators, wean FIO2 for saO2>90%, empiric abx course 3. Pacer interrogated 11/2016, GI eval previously declined colonoscopy, may proceed from CV-standpoint if he agrees to proceed and is warranted 5. Thank you for consultative opportunity
[2017-03-08] MEDS: INSULIN SLIDING SCALE (NOVOLOG) 1 VIAL SQ SCH (17:53)
[2017-03-08 20:03] LABS: URINE APPEARANCE CLEAR; URINE BILIRUBIN NEGATIVE (NEGATIVE); URINE COLOR YELLOW; URINE GLUCOSE (UA) NEGATIVE (NEGATIVE); URINE KETONE NEGATIVE (NEGATIVE); URINE NITRITE NEGATIVE (NEGATIVE); URINE UROBILINOGEN NEGATIVE E.U./dl (0.2-1.0)
[2017-03-08 20:06] LABS: URINE BLOOD 3+ (NEGATIVE); URINE LEUK ESTERASE 1+ (NEGATIVE); URINE PROTEIN 1+ (NEGATIVE)
[2017-03-08 20:07] LABS: URINE MUCUS RARE; URINE RBC 135 /hpf (0-3); URINE WBC 19 /hpf (3-5)
[2017-03-08] MEDS: ATORVASTATIN CA 20 MG TABLET (FP) PO SCH (22:47)
[2017-03-09] MEDS ORDERED: METRONIDAZOLE 500 MG PREMIXED 100 ML IVPB ONE (01:44)
[2017-03-09] MEDS: SODIUM CHLORIDE 1,000 ML IV SCH ×2 (02:10→06:25)
[2017-03-09] MEDS: METRONIDAZOLE 500 MG PREMIXED 100 ML IVPB SCH ×3 (02:10→20:42)
[2017-03-09 07:13] LABS: ALBUMIN 2.8 g/dl (3.4-5.0); ALK PHOS 61 U/L (45-117); ANION GAP 10 (8-16); BILIRUBIN,TOTAL 0.7 mg/dL (0.2-1.0); CALCIUM 8.8 mg/dL (8.5-10.1); CO2 24 mmol/L (21-32); GLUCOSE,RANDOM 94 mg/dL (74-106); SGOT/AST 14 U/L (15-37); SGPT/ALT 14 U/L (12-78); TOT PROT 6.3 g/dl (6.4-8.2)
[2017-03-09] MEDS: INSULIN SLIDING SCALE (NOVOLOG) 1 VIAL SQ SCH ×2 (07:53→17:07)
--- NOTE | 2017-03-09 10:31 | PN ---
Progress Note (short form) - Note Progress Note: ID Consult dictated Acute uncomplicated diverticulitis Possible sepsis secondary to GI source Rectal bleeding Azotemia COPD Pending sepsis workup, empiric zosyn/ flagyl GI evaluation
[2017-03-09] MEDS: risperiDONE 1 MG TABLET (FP) PO SCH ×2 (11:09→21:42)
[2017-03-09] MEDS: PANTOPRAZOLE 40 MG TABLET (FP) PO SCH (11:09)
[2017-03-09] MEDS: predniSONE 5 MG TABLET (UD) PO SCH (11:09)
[2017-03-09] MEDS: CARVEDILOL 6.25 MG TABLET (FP) PO SCH ×2 (11:09→21:42)
[2017-03-09] MEDS: LOSARTAN POTASSIUM 50 MG TABLET (FP) PO SCH (11:09)
[2017-03-09] MEDS: CHOLECALCIFEROL (VITAMIN D3) 1,000 UNIT TABLET (FP) PO SCH (11:10)
[2017-03-09] MEDS: CYANOCOBALAMIN 1,000 MCG TABLET (FP) PO SCH (11:10)
[2017-03-09] MEDS: PIPERACILLIN/TAZOB 2.25 GM 50 ML IVPB SCH ×2 (11:50→18:43)
[2017-03-09] MEDS: PIPERACILLIN/TAZOB 2.25 GM 2.25 GM in DEXTROSE 5%-WATER - 50 ML IVPB SCH (11:55)
--- NOTE | 2017-03-09 13:07 | PN ---
Progress Note, Physician Chief Complaint: Events noted Awaiting admission in ER hold History of Present Illness: Patient was seen and examined. Awake and alert. Chart was reviewed Denies chest pain, SOB or palpitations No active GI bleed at the moment - Current Medication List Current Medications: Active Medications Acetaminophen (Tylenol -) 650 mg PO Q6H PRN PRN Reason: FEVER OR PAIN Albuterol/Ipratropium (Duoneb -) 1 amp NEB Q6H PRN PRN Reason: SHORTNESS OF BREATH Atorvastatin Calcium (Lipitor -) 20 mg PO HS [facility] Last Admin: 03/08/17 22:47 Dose: 20 mg Carvedilol (Coreg -) 6.25 mg PO BID [facility] Last Admin: 03/09/17 11:09 Dose: 6.25 mg Cholecalciferol (Vitamin D3 -) 2,000 unit PO DAILY [facility] Last Admin: 03/09/17 11:10 Dose: 2,000 unit Cyanocobalamin (Vitamin B12 -) 1,000 mcg PO DAILY [facility] Last Admin: 03/09/17 11:10 Dose: 1,000 mcg Metronidazole (Flagyl 500mg Premixed Ivpb -) 100 mls @ 100 mls/hr IVPB Q8H-IV [facility] Last Admin: 03/09/17 12:54 Dose: 100 mls/hr Sodium Chloride (Normal Saline -) 1,000 mls @ 60 mls/hr IV ASDIR [facility] Last Admin: 03/09/17 06:25 Dose: 60 mls/hr Piperacillin Sod/Tazobactam Sod (Zosyn 2.25gm Ivpb (Pre-Docked)) 50 mls @ 100 mls/hr IVPB Q8H-IV DINESH PRN Reason: Protocol Last Admin: 03/09/17 11:50 Dose: 100 mls/hr Insulin Aspart (Novolog Vial Sliding Scale -) 1 vial SQ BIDAC DINESH PRN Reason: Protocol Stop: 03/11/17 13:17 Last Admin: 03/09/17 07:53 Dose: Not Given Losartan Potassium (Cozaar -) 100 mg PO DAILY [facility] Last Admin: 03/09/17 11:09 Dose: 100 mg Ondansetron HCl (Zofran Injection) 4 mg IVPB Q6H PRN PRN Reason: NAUSEA Pantoprazole Sodium (Protonix -) 40 mg PO DAILY [facility] Last Admin: 03/09/17 11:09 Dose: 40 mg Prednisone (Deltasone -) 5 mg PO DAILY [facility] Last Admin: 03/09/17 11:09 Dose: 5 mg Risperidone (Risperdal -) 1 mg PO BID [facility] Last Admin: 03/09/17 11:09 Dose: 1 mg - Objective Vital Signs: Vital Signs Temperature 98.0 F 03/09/17 06:00 Pulse Rate 89 03/09/17 06:00 Respiratory Rate 20 03/09/17 06:00 Blood Pressure 122/52 03/09/17 06:00 O2 Sat by Pulse Oximetry (%) 97 03/08/17 21:00 Neck: Yes: Supple Cardiovascular: Yes: Regular Rate and Rhythm, Murmur (SM), S1, S2 Respiratory: Yes: Diminished Gastrointestinal: Yes: Normal Bowel Sounds, Soft, Abdomen, Obese. No: Tenderness Edema: No Additional Findings/Remarks: - Review of Systems Constitutional: denies: Chills, Fever Cardiovascular: denies: Shortness of Breath. denies: Chest Pain, Palpitations Respiratory: denies: Cough, SOB, SOB on Exertion. denies: Hemoptysis, Orthopnea , PND, Wheezing Gastrointestinal: denies: Abdominal Pain, Constipation, Diarrhea, Melena, Nausea , (+) Rectal Bleeding, denies: Vomiting Musculoskeletal: denies: Joint Pain Neurological: denies: Dizziness, Headache, Seizure, Syncope Labs: 03/09/17 06:36 Problem List - Problems (1) Diverticulitis large intestine Code(s): K57.32 - DVTRCLI OF LG INT W/O PERFORATION OR ABSCESS W/O BLEEDING Qualifiers: Diverticulitis bleeding: without bleeding Diverticulitis complication: without perforation or abscess Qualified Code(s): K57.32 - Diverticulitis of large intestine without perforation or abscess without bleeding (2) Systolic dysfunction without heart failure Code(s): I51.9 - HEART DISEASE, UNSPECIFIED (3) COPD (chronic obstructive pulmonary disease) Code(s): J44.9 - CHRONIC OBSTRUCTIVE PULMONARY DISEASE, UNSPECIFIED Qualifiers : COPD type: COPD with acute exacerbation Qualified Code(s): J44.1 - Chronic obstructive pulmonary disease with (acute) exacerbation (4) Cardiac pacemaker in situ Code(s): Z95.0 - PRESENCE OF CARDIAC PACEMAKER (5) Diastolic dysfunction without heart failure Code(s): I51.9 - HEART DISEASE, UNSPECIFIED (6) GI bleed Code(s): K92.2 - GASTROINTESTINAL HEMORRHAGE, UNSPECIFIED Qualifiers: GI bleed type/associated pathology: unspecified gastrointestinal hemorrhage type Qualified Code(s): K92.2 - Gastrointestinal hemorrhage, unspecified (7) High-grade atrioventricular block Code(s): I44.39 - OTHER ATRIOVENTRICULAR BLOCK (8) Renal insufficiency Code(s): N28.9 - DISORDER OF KIDNEY AND URETER, UNSPECIFIED (9) ASHD (arteriosclerotic heart disease) Code(s): I25.10 - ATHSCL HEART DISEASE OF [place] CORONARY ARTERY W/O ANG PCTRS (10) Hyperlipidemia Code(s): E78.5 - HYPERLIPIDEMIA, UNSPECIFIED Qualifiers: Hyperlipidemia type: pure hypercholesterolemia Qualified Code(s): E78.00 - Pure hypercholesterolemia, unspecified; E78.0 - Pure hypercholesterolemia (11) Hypertension Code(s): I10 - ESSENTIAL (PRIMARY) HYPERTENSION Qualifiers: Hypertension type: essential hypertension Qualified Code(s): I10 - Essential (primary) hypertension Assessment/Plan 1. Hematochezia and anemia referable to diverticulitis 2. 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 LV systolic dysfunction 5. Advanced AV block post pacemaker implant 6. HTN 7. Hypercholesterolemia 8. DHEERAJ 9. CKD PLAN: 1. Continue Carvedilol 6.25 mg bid, Losartan 100 mg qd and Lipitor 20 mg qhs as hemodynamics tolerate. Resume ASA 81 mg qd once hemostasis achieved and cleared by GI 2. Bronchodilators, O2 and empiric antibiotic course 3. Await GI input. Patient had previously declined further GI work up. May proceed with endoscopy/colonoscopy from cardiovascular-standpoint if he agrees to proceed and is warranted Further plans are to follow Weston Tillman MD
--- NOTE | 2017-03-09 13:18 | CON.GI ---
Consult Consult Specialty:: GI: Dr. Cannon for Dr. Carrillo Referred by:: Dr. Rocha Reason for Consultation:: Rectal bleeding - History of Present Illness Chief Complaint: "I had bleeding" History of Present Illness: 82M admitted from home for evalution of abdominal pain and rectal bleeding and passing out at home. He did have a colonoscopy performed by Dr. Carrillo in 1997 , It revealed three colon polyps as well as an area in the sigmoid colon that he suspected to be a large polyp or mass lesion. Dr. Carrillo advised repeat evaluation but per records from the office revealed that this was never performed as Mr. Vee never scheduled. He was evaluated 12/05 for rectal bleeding and anemia while an inpatient. Colonoscopy was explained to him in detail as described in noted from that time however he ultimately refused the procedures (My interactions were written down for him as he is hard of hearing. There has been no reported rectal bleeding today. He denies abdominal pain. CT scan reads as inflammatory changes along the sigmoid colon raising question of diverticulitis involvling the sigmoid and descending colon as well as a seperate area in the ascending colon. - History Source History Provided By: Patient, Medical Record Limitations to Obtaining History: Poor Historian - Past Medical History FLAG SIGNALER: Yes: Other (decreased hearing) Cardio/Vascular: Yes: CAD, CHF, HTN, Hyperlipdemia, Other (Right external carotid artery stenosis, tachycardia PPM) Pulmonary: Yes: COPD, O2 Dependent, Other (pulmonary nodules h/o invasive Aspergillosis) Gastrointestinal: Yes: Diverticulitis (as per today's CT), Diverticulosis, GERD , Other (left inguinal hernia, duodinitis, colon polyps) Renal/: Yes: Renal Inusuff, BPH, Hematuria, Other (bladder dysfunction) Infectious Disease: Yes: Other (h/o invasive pulmonary aspergillosis) Musculoskeletal: Yes: Chronic low back pain, Osteoarthritis, Other (dupuytren contracture) ENT: Yes: Other (TANANA) Endocrine: Yes: Diabetes Mellitus - Past Surgical History Past Surgical History: Yes: Cholecystectomy (open), Permanent Pacemaker - Alcohol/Substance Use Hx Alcohol Use: No History of Substance Use: reports: None - Smoking History Smoking history: Former smoker Have you smoked in the past 12 months: No If you are a former smoker, when did you quit?: 10YRS AGO - Social History Usual Living Arrangement: With Child ADL: Family Assistance Occupation: , 4 children History of Recent Travel: No Home Medications - Allergies Allergies/Adverse Reactions: Allergies Allergy/AdvReac Type Severity Reaction Status Date / Time Iodinated Contrast Media - Allergy Rash Verified 03/07/17 21:12 Oral and [Iodinated Contrast Media - IV Dye] levofloxacin [From Levaquin] Allergy "RASH" Verified 03/07/17 21:12 - Home Medications Home Medications: Ambulatory Orders Atorvastatin Ca [Lipitor] 20 mg PO HS 12/03/12 Budesonide [Pulmicort 0.5 mg Nebulizer -] 1 neb NEB HS 12/03/12 Multivit-Min/FA/Lycopene/Lut [Centrum Silver Tablet] 1 each PO DAILY 12/03/12 Tiotropium Dennis [Spiriva] 1 inh IH HS 12/03/12 Cyanocobalamin (Vitamin B-12) [Cyanocobalamin] 1,000 mcg PO DAILY 06/27/14 Losartan Potassium [Cozaar -] 100 mg PO DAILY #0 tablet 12/03/14 Cholecalciferol (Vitamin D3) [Vitamin D3 -] 2,000 unit PO DAILY 03/01/15 Prednisone [Deltasone -] 5 mg PO DAILY 11/23/16 Risperidone [Risperdal] 1 mg PO BID 11/23/16 Carvedilol [Coreg -] 6.25 mg PO BID #60 tablet 11/28/16 Pantoprazole Sodium [Protonix -] 40 mg PO BID #60 11/28/16 Albuterol Sulfate Inhaler - [Ventolin HFA Inhaler -] 1 - 2 inh PO QID PRN Family Disease History - Family Disease History Family Disease History: Other: Father ( 71 ? colon cancer), Mother ( 62 : "enlarged heart"), Sister (: CVA and [place]), Daughter (CVA) Review of Systems Unable to obtain ROS, reason: patient extremely TANANA - Review of Systems Gastrointestinal: denies: Abdominal Pain Physical Exam-GI Vital Signs: Vital Signs Temperature 98.0 F 03/09/17 06:00 Pulse Rate 89 03/09/17 06:00 Respiratory Rate 20 03/09/17 06:00 Blood Pressure 122/52 03/09/17 06:00 O2 Sat by Pulse Oximetry (%) 97 03/08/17 21:00 Constitutional: Yes: Calm Eyes: No: Sclera Icterus Cardiovascular: Yes: Regular Rate and Rhythm Respiratory: Yes: Diminished (at bases, poor insp effort) Gastrointestinal Inspection: Yes: Scars (large oblique RUQ scar) ...Auscultate: Yes: Normoactive Bowel Sounds ...Palpate: Yes: Tenderness (Mild TTP LLQ). No: Guarding, Tenderness, Rebound ...Percussion: No: Tympanitic ...Rectal Exam: Yes: Other (No masses, light brown stool, guaiac negative) Labs: CBC, BMP 03/09/17 06:36 03/09/17 06:36 INR, PTT INR 1.20 (0.82-1.09) H 03/07/17 22:10 Imaging - Results Cat Scan: Report Reviewed, Image Reviewed Assessment/Plan Abnormal CT scan findings: Mr. Vee has had an abnormal findings in his sigmoid dating back to 1997 that he chose to not follow-up. Possibilities could include acute divetcitulitis on a chronic diverticulitis (however previous CT scan 2012 revealed diverticulosis without any other focal findings), ischemic colitis and mass lesion of the colon chronic rectal bleeding complaints and prior colonoscopy findings would all need to be considered in the differential. Clear liquids IV Abx Will need colonoscopy if he is agreeable. I did ask that he think about this option (wrote it out for him including that he has microscopic blood in stool today as well as potential risks of the procedure like but not limited to bleeding, perforation requiring surgery to repair, infection and sedation medication effects all of which could be potentially life threatening, as he is hard of hearing)
--- NOTE | 2017-03-09 16:41 | PN ---
Physical Exam: SUBJECTIVE: Patient seen and examined for Dr. Rocha/Dez OBJECTIVE: Vital Signs Period Temp Pulse Resp BP Sys/Mata Pulse Ox Last 24 Hr 98.0 F-98.6 F 86-91 20-20 122-141/52-78 97-99 GENERAL: The patient is awake, alert, and fully oriented, in no acute distress. HEAD: Normal with no signs of trauma. NECK: Trachea midline, full range of motion, supple. LUNGS: Breath sounds equal, clear to auscultation bilaterally, no wheezes, no crackles, no accessory muscle use. HEART: Regular rate and rhythm, S1, S2 without murmur, rub or gallop. ABDOMEN: Soft, nontender, nondistended, normoactive bowel sounds, no guarding, no rebound, no hepatosplenomegaly, no masses. EXTREMITIES: 2+ pulses, warm, well-perfused, no edema. SKIN: Warm, dry, normal turgor, no rashes or lesions noted Laboratory Results - last 24 hr 03/08/17 03/09/17 03/09/17 18:57 06:36 06:36 WBC Cancelled Corrected WBC (auto) Cancelled RBC Cancelled Hgb Cancelled Hct Cancelled MCV Cancelled MCHC Cancelled RDW Cancelled Plt Count Cancelled MPV Cancelled Neutrophils % Cancelled Lymphocytes % Cancelled Monocytes % Cancelled Eosinophils % Cancelled Basophils % Cancelled Differential Comment Cancelled Smudge Cells Cancelled Platelet Estimate Cancelled Platelet Comment Cancelled RBC Morphology Cancelled ESR Sodium 141 Potassium 3.7 Chloride 107 Carbon Dioxide 24 Anion Gap 10 BUN 19 H Creatinine 2.0 H Creat Clearance w eGFR 32.07 Random Glucose 94 Calcium 8.8 Total Bilirubin 0.7 AST 14 L D ALT 14 Alkaline Phosphatase 61 Total Protein 6.3 L Albumin 2.8 L Urine Color Yellow Urine Appearance Clear Urine pH 5.0 Ur Specific [place] 1.010 Urine Protein 1+ H Urine Glucose (UA) Negative Urine Ketones Negative Urine Blood 3+ H Urine Nitrite Negative Urine Bilirubin Negative Urine Urobilinogen Negative Ur Leukocyte Esterase 1+ H Urine RBC 135 Urine WBC 19 Ur Epithelial Cells Rare Urine Mucus Rare 03/09/17 09:10 WBC Corrected WBC (auto) RBC Hgb Hct MCV MCHC RDW Plt Count MPV Neutrophils % Lymphocytes % Monocytes % Eosinophils % Basophils % Differential Comment Smudge Cells Platelet Estimate Platelet Comment RBC Morphology ESR 90 H Sodium Potassium Chloride Carbon Dioxide Anion Gap BUN Creatinine Creat Clearance w eGFR Random Glucose Calcium Total Bilirubin AST ALT Alkaline Phosphatase Total Protein Albumin Urine Color Urine Appearance Urine pH Ur Specific [place] Urine Protein Urine Glucose (UA) Urine Ketones Urine Blood Urine Nitrite Urine Bilirubin Urine Urobilinogen Ur Leukocyte Esterase Urine RBC Urine WBC Ur Epithelial Cells Urine Mucus Active Medications Generic Name Dose Route Start Last Admin Trade Name Jordanq PRN Reason Stop Dose Admin Acetaminophen 650 mg 03/08/17 00:52 Tylenol - PO Q6H PRN FEVER OR PAIN Albuterol/Ipratropium 1 amp 03/08/17 00:56 Duoneb - NEB Q6H PRN SHORTNESS OF BREATH Atorvastatin Calcium 20 mg 03/08/17 22:00 03/08/17 22:47 Lipitor - PO 20 mg HS DINESH Administration Carvedilol 6.25 mg 03/08/17 10:00 03/09/17 11:09 Coreg - PO 6.25 mg BID DINESH Administration Cholecalciferol 2,000 unit 03/08/17 10:00 03/09/17 11:10 Vitamin D3 - PO 2,000 unit DAILY DINESH Administration Cyanocobalamin 1,000 mcg 03/08/17 10:00 03/09/17 11:10 Vitamin B12 - PO 1,000 mcg DAILY DINESH Administration Metronidazole 100 mls @ 100 mls/hr 03/08/17 03:15 03/09/17 12:54 Flagyl 500mg Premixed Ivpb - IVPB 100 mls/hr Q8H-IV DINESH Administration Sodium Chloride 1,000 mls @ 60 mls/hr 03/08/17 01:00 03/09/17 06:25 Normal Saline - IV 60 mls/hr ASDIR DINESH Administration Piperacillin Sod/Tazobactam Sod 50 mls @ 100 mls/hr 03/09/17 11:00 03/09/17 11: 50 Zosyn 2.25gm Ivpb (Pre-Docked) IVPB 100 mls/hr Q8H-IV DINESH Administration Protocol Insulin Aspart 1 vial 03/08/17 16:30 03/09/17 07:53 Novolog Vial Sliding Scale - SQ 03/11/17 13:17 Not Given BIDAC DINESH Protocol Losartan Potassium 100 mg 03/08/17 10:00 03/09/17 11:09 Cozaar - PO 100 mg DAILY DINESH Administration Ondansetron HCl 4 mg 03/08/17 00:52 Zofran Injection IVPB Q6H PRN NAUSEA Pantoprazole Sodium 40 mg 03/08/17 03:16 03/09/17 11:09 Protonix - PO 40 mg DAILY DINESH Administration Prednisone 5 mg 03/08/17 10:00 03/09/17 11:09 Deltasone - PO 5 mg DAILY DINESH Administration Risperidone 1 mg 03/08/17 10:00 03/09/17 11:09 Risperdal - PO 1 mg BID DINESH Administration ASSESSMENT/PLAN: This patient is a 82 year old male with a significant past medical history of Coronary artery disease, CHF, hypertension, hyperlipidemia, right extremity carotid artery stenosis, COPD, dependent on oxygen, diverticulosis, GERD, left inguinal hernia, CKD, BPH, B12 deficiency, invasive pulmonary aspergillosis, diabetes mellitus, arthritis and low back pain chronic, who presents to the ED with worsening RLQ and mid abdominal pain, rectal bleeding and dizziness. Patient was admitted 11/24/16 for rectal bleeding and he refused colonoscopy and endoscopy because he states that he is scared he will during the procedure . As per family, the patient has been hiding rectal bleeding since November and has been complaining of abdominal pain since his dc from [facility]. He reports decreased appetite. 1. Rectal Bleeding -abnormal CT findings -appreciate GI consult and will see if pt agrees to colonoscopy -will continue with zosyn and flagyl -appreciate ID consult input -per GI will stick to clear liqu po only 2. CHF/HTN -continue with hypertensive meds 3. DM -fingersticks -coverage as needed -on steroids 4. GI/DVT ppx Problem List - Problems (1) GI bleed Code(s): K92.2 - GASTROINTESTINAL HEMORRHAGE, UNSPECIFIED Qualifiers: GI bleed type/associated pathology: unspecified gastrointestinal hemorrhage type Qualified Code(s): K92.2 - Gastrointestinal hemorrhage, unspecified Visit type - Emergency Visit Emergency Visit: No - New Patient This patient is new to me today: Yes Date on this admission: 03/09/17 - Critical Care Critical Care patient: No - Discharge Referral Referred to [facility] Med P.C.: No
[2017-03-09] MEDS: ATORVASTATIN CA 20 MG TABLET (FP) PO SCH (21:42)
--- NOTE | 2017-03-09 22:51 | CONS ---
DATE OF CONSULTATION: DATE OF DICTATION: 03/09/2017 INFECTIOUS DISEASE CONSULTATION HISTORY OF PRESENT ILLNESS: The patient is an 82-year-old male evaluated for acute diverticulitis. History was obtained from the chart, as he did not give a reliable history. The patient was recently admitted to [facility] in November with a GI bleed. He now returns with complaints of right lower and mid abdominal pain associated with rectal bleeding; according to the notes, he has been noncompliant with followup with his physicians. He has been having episodic rectal bleeding at home, however did not disclose this to family members and did not seek medical attention. He was evaluated in the emergency room where a CAT scan was performed that showed evidence of acute uncomplicated diverticulitis involving the descending and sigmoid colon, as well as some mild pericolonic edema along the middle 3rd of the ascending colon. No abscess or perforation was noted. He denies any vomiting or diarrhea. He was evaluated in the emergency room and empirically treated with Zosyn and Flagyl. PAST MEDICAL HISTORY: Positive for coronary artery disease, oxygen and steroid dependence, COPD, congestive heart failure, hypertension, hyperlipidemia, diverticulosis, gastroesophageal reflux, chronic kidney disease, BPH. Invasive pulmonary aspergillosis, diabetes mellitus, osteoarthritis. PAST SURGICAL HISTORY: Status post left inguinal hernia, permanent pacemaker, and cholecystectomy. ALLERGIES: IODINE (rash) and LEVAQUIN (rash). MEDICATION: Include Risperdal, Lipitor, Pulmicort, Spiriva, Cozaar, Coreg. SOCIAL HISTORY: Lives at home with family members. Former smoker. SYSTEMS REVIEW: Neurologic: No loss of consciousness, seizure activity, or focal weakness. Cardiac: Negative chest pain or palpitations. Respiratory: Positive for COPD oxygen and steroid dependent. Gastrointestinal: As per HPI. Genitourinary: Negative for urinary tract infection. LABORATORY DATA: White count 8.8, hematocrit 28.7, platelet count 257. BUN 19, creatinine 2.0. Liver enzymes normal. Urinalysis: 19 white cells. CAT scan findings as mentioned. PHYSICAL EXAMINATION: General: He is awake and alert. He is out of bed to chair. He is in no acute distress. He offers no complaints. Answers simple questions with yes or no responses. Indicates no abdominal pain. Vital signs: Temperature 98.0, blood pressure 122/52, pulse 89 regular, respirations 20 per minute. HEENT: Sclerae anicteric. Cardiovascular: Heart sounds S1, S2. Respiratory: Lungs diminished breath sounds bilaterally. Abdomen: Obese, distended. Soft. No tenderness elicited. No mass, rebound, or rigidity. Extremities: 1+ edema. IMPRESSION: 1. Acute uncomplicated diverticulitis. 2. Possible sepsis secondary to gastrointestinal source. 3. Rectal bleeding. 4. Azotemia. 5. Chronic obstructive pulmonary disease. Pending sepsis workup, empiric antibiotic coverage of GI pathogens with Zosyn and Flagyl, GI evaluation. Will follow. Thank you for the kind referral. WALKER YATES M.D. [id number]
[2017-03-10] MEDS: PIPERACILLIN/TAZOB 2.25 GM 50 ML IVPB SCH ×3 (01:05→18:32)
[2017-03-10] MEDS: SODIUM CHLORIDE 1,000 ML IV SCH ×2 (01:48→22:58)
[2017-03-10] MEDS: METRONIDAZOLE 500 MG PREMIXED 100 ML IVPB SCH ×3 (01:51→17:38)
[2017-03-10] MEDS: INSULIN SLIDING SCALE (NOVOLOG) 1 VIAL SQ SCH ×2 (06:09→17:01)
[2017-03-10 07:00] LABS: EOSINOPHIL 4.6 % (0-4.5); MCH 26.6 pg (25.7-33.7); MCHC 32.6 g/dl (32.0-35.9); MEAN CELL VOLUME 81.5 fl (80-96); MEAN PLT VOLUME 8.2 fl (7.5-11.1); NEUTROPHILS 75.8 % (42.8-82.8); PLATELET COUNT 227 K/MM3 (134-434); RDW 16.3 % (11.9-15.9); WHITE BLOOD COUNT 8.1 K/mm3 (4.0-10.0)
[2017-03-10 07:10] LABS: INR 1.31 (0.82-1.09); PROTHROMBIN TIME (PATIENT) 14.5 SEC (9.98-11.88)
[2017-03-10 07:23] LABS: ALBUMIN 2.9 g/dl (3.4-5.0); ALK PHOS 57 U/L (45-117); ANION GAP 10 (8-16); BILIRUBIN,TOTAL 0.7 mg/dL (0.2-1.0); CALCIUM 8.6 mg/dL (8.5-10.1); CO2 26 mmol/L (21-32); CREATININE 1.9 mg/dL (0.7-1.3); GLUCOSE,RANDOM 87 mg/dL (74-106); SGOT/AST 11 U/L (15-37); SGPT/ALT 14 U/L (12-78); TOT PROT 6.3 g/dl (6.4-8.2)
[2017-03-10] MEDS ORDERED: PT OWN MED DRAWER 7, Y5N ONE ×4 (09:55→18:26)
[2017-03-10] MEDS: risperiDONE 1 MG TABLET (FP) PO SCH ×2 (09:58→21:09)
[2017-03-10] MEDS: LOSARTAN POTASSIUM 50 MG TABLET (FP) PO SCH (09:58)
[2017-03-10] MEDS: PANTOPRAZOLE 40 MG TABLET (FP) PO SCH (09:58)
[2017-03-10] MEDS: CARVEDILOL 6.25 MG TABLET (FP) PO SCH ×2 (09:58→21:08)
[2017-03-10] MEDS: predniSONE 5 MG TABLET (UD) PO SCH (09:58)
[2017-03-10] MEDS: CYANOCOBALAMIN 1,000 MCG TABLET (FP) PO SCH (09:59)
[2017-03-10] MEDS: CHOLECALCIFEROL (VITAMIN D3) 1,000 UNIT TABLET (FP) PO SCH (09:59)
--- NOTE | 2017-03-10 10:34 | PN ---
Progress Note, Physician History of Present Illness: Awake but lethargic Extremely hard of hearing No c/o abdominal pain No N/V No BM reported Tolerating liquid diet Low grade fever noted. WBC WNL - Current Medication List Current Medications: Active Medications Acetaminophen (Tylenol -) 650 mg PO Q6H PRN PRN Reason: FEVER OR PAIN Albuterol/Ipratropium (Duoneb -) 1 amp NEB Q6H PRN PRN Reason: SHORTNESS OF BREATH Atorvastatin Calcium (Lipitor -) 20 mg PO HS [facility] Last Admin: 03/09/17 21:42 Dose: 20 mg Carvedilol (Coreg -) 6.25 mg PO BID [facility] Last Admin: 03/10/17 09:58 Dose: 6.25 mg Cholecalciferol (Vitamin D3 -) 2,000 unit PO DAILY [facility] Last Admin: 03/10/17 09:59 Dose: 2,000 unit Cyanocobalamin (Vitamin B12 -) 1,000 mcg PO DAILY [facility] Last Admin: 03/10/17 09:59 Dose: 1,000 mcg Metronidazole (Flagyl 500mg Premixed Ivpb -) 100 mls @ 100 mls/hr IVPB Q8H-IV [facility] Last Admin: 03/10/17 09:58 Dose: 100 mls/hr Sodium Chloride (Normal Saline -) 1,000 mls @ 60 mls/hr IV ASDIR [facility] Last Admin: 03/10/17 01:48 Dose: 60 mls/hr Piperacillin Sod/Tazobactam Sod (Zosyn 2.25gm Ivpb (Pre-Docked)) 50 mls @ 100 mls/hr IVPB Q8H-IV [facility] PRN Reason: Protocol Last Admin: 03/10/17 01:05 Dose: 100 mls/hr Insulin Aspart (Novolog Vial Sliding Scale -) 1 vial SQ BIDAC [facility] PRN Reason: Protocol Stop: 03/11/17 13:17 Last Admin: 03/10/17 06:09 Dose: Not Given Losartan Potassium (Cozaar -) 100 mg PO DAILY [facility] Last Admin: 03/10/17 09:58 Dose: 100 mg Ondansetron HCl (Zofran Injection) 4 mg IVPB Q6H PRN PRN Reason: NAUSEA Pantoprazole Sodium (Protonix -) 40 mg PO DAILY [facility] Last Admin: 06/20/17 09:58 Dose: 40 mg Prednisone (Deltasone -) 5 mg PO DAILY [facility] Last Admin: 03/10/17 09:58 Dose: 5 mg Risperidone (Risperdal -) 1 mg PO BID [facility] Last Admin: 03/10/17 09:58 Dose: 1 mg - Objective Vital Signs: Vital Signs Temperature 99.8 F H 03/10/17 08:54 Pulse Rate 74 03/10/17 08:54 Respiratory Rate 20 03/10/17 08:54 Blood Pressure 120/50 03/10/17 08:54 O2 Sat by Pulse Oximetry (%) 96 03/09/17 21:00 Constitutional: Yes: No Distress Eyes: Yes: Conjunctiva Clear Cardiovascular: Yes: Regular Rate and Rhythm, S1, S2 Respiratory: Yes: CTA Bilaterally Gastrointestinal: Yes: Normal Bowel Sounds, Soft, Abdomen, Obese. No: Tenderness Edema: Yes Labs: CBC, BMP 03/10/17 06:15 03/10/17 06:15 INR, PTT INR 1.31 (0.82-1.09) H 03/10/17 06:15 Assessment/Plan Acute diverticulitis S/P rectal bleeding Azotemia COPD Await cultures Continue empiric zosyn/ flagyl
--- NOTE | 2017-03-10 12:02 | PN ---
Progress Note, Physician Chief Complaint: Events noted Does not want to carry a conversation, but appears not in distress History of Present Illness: Patient was seen and examined. Awake and alert. Chart was reviewed Denies chest pain, SOB or palpitations No active GI bleed at the moment See above - Current Medication List Current Medications: Active Medications Acetaminophen (Tylenol -) 650 mg PO Q6H PRN PRN Reason: FEVER OR PAIN Albuterol/Ipratropium (Duoneb -) 1 amp NEB Q6H PRN PRN Reason: SHORTNESS OF BREATH Atorvastatin Calcium (Lipitor -) 20 mg PO HS [facility] Last Admin: 03/09/17 21:42 Dose: 20 mg Carvedilol (Coreg -) 6.25 mg PO BID [facility] Last Admin: 03/10/17 09:58 Dose: 6.25 mg Cholecalciferol (Vitamin D3 -) 2,000 unit PO DAILY [facility] Last Admin: 03/10/17 09:59 Dose: 2,000 unit Cyanocobalamin (Vitamin B12 -) 1,000 mcg PO DAILY [facility] Last Admin: 03/10/17 09:59 Dose: 1,000 mcg Metronidazole (Flagyl 500mg Premixed Ivpb -) 100 mls @ 100 mls/hr IVPB Q8H-IV [facility]IN[facility] Last Admin: 03/10/17 09:58 Dose: 100 mls/hr Sodium Chloride (Normal Saline -) 1,000 mls @ 60 mls/hr IV ASDIR [facility] Last Admin: 03/10/17 01:48 Dose: 60 mls/hr Piperacillin Sod/Tazobactam Sod (Zosyn 2.25gm Ivpb (Pre-Docked)) 50 mls @ 100 mls/hr IVPB Q8H-IV DINESH PRN Reason: Protocol Last Admin: 03/10/17 10:47 Dose: 100 mls/hr Insulin Aspart (Novolog Vial Sliding Scale -) 1 vial SQ BIDAC DIENSH PRN Reason: Protocol Stop: 03/11/17 13:17 Last Admin: 03/10/17 06:09 Dose: Not Given Losartan Potassium (Cozaar -) 100 mg PO DAILY [facility] Last Admin: 03/10/17 09:58 Dose: 100 mg Ondansetron HCl (Zofran Injection) 4 mg IVPB Q6H PRN PRN Reason: NAUSEA Pantoprazole Sodium (Protonix -) 40 mg PO DAILY [facility] Last Admin: 03/10/17 09:58 Dose: 40 mg Prednisone (Deltasone -) 5 mg PO DAILY [facility] Last Admin: 03/10/17 09:58 Dose: 5 mg Risperidone (Risperdal -) 1 mg PO BID [facility] Last Admin: 03/10/17 09:58 Dose: 1 mg - Objective Vital Signs: Vital Signs Temperature 99.8 F H 03/10/17 08:54 Pulse Rate 74 03/10/17 08:54 Respiratory Rate 03/10/17 08:54 Blood Pressure 120/50 03/10/17 08:54 O2 Sat by Pulse Oximetry (%) 96 03/09/17 21:00 Neck: Yes: Supple Cardiovascular: Yes: Regular Rate and Rhythm, Murmur (Soft SM), S1, S2 Respiratory: Yes: Diminished Gastrointestinal: Yes: Normal Bowel Sounds, Soft, Abdomen, Obese. No: Tenderness Edema: No Labs: CBC, BMP 03/10/17 06:15 03/10/17 06:15 INR, PTT INR 1.31 (0.82-1.09) H 03/10/17 06:15 Problem List - Problems (1) Diverticulitis large intestine Code(s): K57.32 - DVTRCLI OF LG INT W/O PERFORATION OR ABSCESS W/O BLEEDING Qualifiers: Diverticulitis bleeding: without bleeding Diverticulitis complication: without perforation or abscess Qualified Code(s): K57.32 - Diverticulitis of large intestine without perforation or abscess without bleeding (2) Systolic dysfunction without heart failure Code(s): I51.9 - HEART DISEASE, UNSPECIFIED (3) COPD (chronic obstructive pulmonary disease) Code(s): J44.9 - CHRONIC OBSTRUCTIVE PULMONARY DISEASE, UNSPECIFIED Qualifiers : COPD type: COPD with acute exacerbation Qualified Code(s): J44.1 - Chronic obstructive pulmonary disease with (acute) exacerbation (4) Cardiac pacemaker in situ Code(s): Z95.0 - PRESENCE OF CARDIAC PACEMAKER (5) Diastolic dysfunction without heart failure Code(s): I51.9 - HEART DISEASE, UNSPECIFIED (6) GI bleed Code(s): K92.2 - GASTROINTESTINAL HEMORRHAGE, UNSPECIFIED Qualifiers: GI bleed type/associated pathology: unspecified gastrointestinal hemorrhage type Qualified Code(s): K92.2 - Gastrointestinal hemorrhage, unspecified (7) High-grade atrioventricular block Code(s): I44.39 - OTHER ATRIOVENTRICULAR BLOCK (8) Renal insufficiency Code(s): N28.9 - DISORDER OF KIDNEY AND URETER, UNSPECIFIED (9) ASHD (arteriosclerotic heart disease) Code(s): I25.10 - ATHSCL HEART DISEASE OF [place] CORONARY ARTERY W/O ANG PCTRS (10) Hyperlipidemia Code(s): E78.5 - HYPERLIPIDEMIA, UNSPECIFIED Qualifiers: Hyperlipidemia type: pure hypercholesterolemia Qualified Code(s): E78.00 - Pure hypercholesterolemia, unspecified; E78.0 - Pure hypercholesterolemia (11) Hypertension Code(s): I10 - ESSENTIAL (PRIMARY) HYPERTENSION Qualifiers: Hypertension type: essential hypertension Qualified Code(s): I10 - Essential (primary) hypertension Assessment/Plan 1. Hematochezia and anemia referable to diverticulitis 2. 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 LV systolic dysfunction 5. Advanced AV block post pacemaker implant 6. HTN 7. Hypercholesterolemia 8. DHEERAJ 9. CKD PLAN: 1. Continue Carvedilol 6.25 mg bid, Losartan 100 mg qd and Lipitor 20 mg qhs as hemodynamics tolerate. Resume ASA 81 mg qd once hemostasis achieved and cleared by GI 2. Bronchodilators, O2 and empiric antibiotic course 3. GI input noted. Patient had previously declined further GI work up. May proceed with endoscopy/colonoscopy from cardiovascular-standpoint if he agrees to proceed and is warranted - decision is to be followed Further plans are to follow Weston Tillman MD
--- NOTE | 2017-03-10 15:56 | PN ---
Physical Exam: SUBJECTIVE: Patient seen and examined Pt denies abdominal pain, N/V/D,hematochezia, fever, chills, cp, sob or palpitations. OBJECTIVE: Vital Signs Period Temp Pulse Resp BP Sys/Mata Pulse Ox Last 24 Hr 97.7 F-99.8 F 70-81 20-20 118-142/50-70 96-98 GENERAL: The patient is awake, alert, and fully oriented, in no acute distress. HEAD: Normal with no signs of trauma. EYES: PERRL, extraocular movements intact, sclera anicteric, conjunctiva clear. No ptosis. ENT: Ears normal, nares patent, oropharynx clear without exudates, moist mucous membranes. NECK: Trachea midline, full range of motion, supple. LUNGS: Breath sounds equal, clear to auscultation bilaterally, no wheezes, no crackles, no accessory muscle use. HEART: Regular rate and rhythm, S1, S2 without murmur, rub or gallop. ABDOMEN: Soft, nontender, nondistended, normoactive bowel sounds, no guarding, no rebound, no hepatosplenomegaly, no masses. EXTREMITIES: 2+ pulses, warm, well-perfused, no edema. NEUROLOGICAL: Cranial nerves II through XII grossly intact. Normal speech, gait not observed. PSYCH: Normal mood, normal affect. SKIN: Warm, dry, normal turgor, no rashes or lesions noted Laboratory Results - last 24 hr 03/09/17 03/09/17 03/10/17 06:40 16:54 06:06 WBC RBC Hgb Hct MCV MCHC RDW Plt Count MPV Neutrophils % Lymphocytes % Monocytes % Eosinophils % Basophils % INR Sodium Potassium Chloride Carbon Dioxide Anion Gap BUN Creatinine Creat Clearance w eGFR POC Glucometer 108.99348 101 92 Random Glucose Calcium Total Bilirubin AST ALT Alkaline Phosphatase Total Protein Albumin 03/10/17 03/10/17 03/10/17 06:15 06:15 06:15 WBC 8.1 RBC 3.33 L Hgb 8.8 L Hct 27.1 L MCV 81.5 MCHC 32.6 RDW 16.3 H Plt Count 227 MPV 8.2 Neutrophils % 75.8 Lymphocytes % 11.5 Monocytes % 7.1 Eosinophils % 4.6 H Basophils % 1.0 INR 1.31 H Sodium 143 Potassium 3.7 Chloride 107 Carbon Dioxide 26 Anion Gap 10 BUN 18 Creatinine 1.9 H Creat Clearance w eGFR 34.02 POC Glucometer Random Glucose 87 Calcium 8.6 Total Bilirubin 0.7 AST 11 L D ALT 14 Alkaline Phosphatase 57 Total Protein 6.3 L Albumin 2.9 L Active Medications Generic Name Dose Route Start Last Admin Trade Name Freq PRN Reason Stop Dose Admin Acetaminophen 650 mg 03/08/17 00:52 Tylenol - PO Q6H PRN FEVER OR PAIN Albuterol/Ipratropium 1 amp 03/08/17 00:56 Duoneb - NEB Q6H PRN SHORTNESS OF BREATH Atorvastatin Calcium 20 mg 03/08/17 22:00 03/09/17 21:42 Lipitor - PO 20 mg HS DINESH Administration Carvedilol 6.25 mg 03/08/17 10:00 03/10/17 09:58 Coreg - PO 6.25 mg BID DINESH Administration Cholecalciferol 2,000 unit 03/08/17 10:00 03/10/17 09:59 Vitamin D3 - PO 2,000 unit DAILY [facility] Administration Cyanocobalamin 1,000 mcg 03/08/17 10:00 03/10/17 09:59 Vitamin B12 - PO 1,000 mcg DAILY [facility] Administration Metronidazole 100 mls @ 100 mls/hr 03/08/17 03:15 03/10/17 09:58 Flagyl 500mg Premixed Ivpb - IVPB 100 mls/hr Q8H-IV D[facility] Administration Sodium Chloride 1,000 mls @ 60 mls/hr 03/08/17 01:00 03/10/17 01:48 Normal Saline - IV 60 mls/hr ASDIR DINESH Administration Piperacillin Sod/Tazobactam Sod 50 mls @ 100 mls/hr 03/09/17 11:00 03/10/17 10: 47 Zosyn 2.25gm Ivpb (Pre-Docked) IVPB 100 mls/hr Q8H-IV D[facility] Administration Protocol Insulin Aspart 1 vial 03/08/17 16:30 03/10/17 06:09 Novolog Vial Sliding Scale - SQ 03/11/17 13:17 Not Given BIDAC DINESH Protocol Losartan Potassium 100 mg 03/08/17 10:00 03/10/17 09:58 Cozaar - PO 100 mg DAILY [facility] Administration Ondansetron HCl 4 mg 03/08/17 00:52 Zofran Injection IVPB Q6H PRN NAUSEA Pantoprazole Sodium 40 mg 03/08/17 03:16 03/10/17 09:58 Protonix - PO 40 mg DAILY [facility] Administration Prednisone 5 mg 03/08/17 10:00 03/10/17 09:58 Deltasone - PO 5 mg DAILY [facility] Administration Risperidone 1 mg 03/08/17 10:00 03/10/17 09:58 Risperdal - PO 1 mg BID DINESH Administration * imaging CT abdomen/pelvis : Acute uncomplicated diverticulitis CxR: No acute pathology ASSESSMENT/PLAN: This is an 81 year old obese male with underlying history of severe home O2 @ 4L and steroid dependent COPD with h/o flares, pulmonary aspergillosis, ASHD post demand ischemic injury, angina pectoris, type 2 DM, HTN, hypercholesterolemia, GERD, CKD and carotid stenosis, AV block s/p PPM presented admitted with painless hematochezia admitted 11/24/16 for rectal bleeding and he refused colonoscopy and endoscopy, who now presents to the ED with worsening RLQ and mid abdominal pain, rectal bleeding and dizziness. * Rectal Bleeding- no further bleeding reported - stool OB negative - mild drop in H/H - GI following -Will need colonoscopy if he is agreeable. -CT abdomen/pelvis reviewed - will cont on Flagyl and Zosyn -appreciate ID consult input - diet on clears now as per GI - Temp 99.8, no leukocytosis - ESR 90 - garcia cultures negative * DM- BS stable -finger sticks -coverage as needed -on steroids * Hx of CHF/HTN/HDL - will cont on home meds -Resume ASA 81 mg qd once cleared by GI - cardiology input appreciated * COPD - stable - - will cont on Bronchodilators, O2 and Prednisone *GI/DVT ppx Visit type - Emergency Visit Emergency Visit: Yes ED Registration Date: 03/08/17 Care time: The patient presented to the Emergency Department on the above date and was hospitalized for further evaluation of their emergent condition. - New Patient This patient is new to me today: Yes Date on this admission: 03/10/17 - Critical Care Critical Care patient: No
[2017-03-10] MEDS: ATORVASTATIN CA 20 MG TABLET (FP) PO SCH (21:09)
[2017-03-11] MEDS: PIPERACILLIN/TAZOB 2.25 GM 50 ML IVPB SCH ×3 (01:05→17:59)
[2017-03-11] MEDS: SODIUM CHLORIDE 1,000 ML IV SCH (01:05)
[2017-03-11] MEDS: METRONIDAZOLE 500 MG PREMIXED 100 ML IVPB SCH ×3 (01:31→17:59)
[2017-03-11] MEDS: INSULIN SLIDING SCALE (NOVOLOG) 1 VIAL SQ SCH (06:03)
[2017-03-11 07:22] LABS: MCH 26.8 pg (25.7-33.7); MEAN CELL VOLUME 81.1 fl (80-96); MEAN PLT VOLUME 8.1 fl (7.5-11.1); NEUTROPHILS 77.2 % (42.8-82.8); PLATELET COUNT 226 K/MM3 (134-434); RDW 16.6 % (11.9-15.9); WHITE BLOOD COUNT 8.5 K/mm3 (4.0-10.0)
[2017-03-11 08:06] LABS: ANION GAP 11 (8-16); CALCIUM 8.4 mg/dL (8.5-10.1); CO2 25 mmol/L (21-32); CREATININE 1.7 mg/dL (0.7-1.3); GLUCOSE,RANDOM 78 mg/dL (74-106)
--- NOTE | 2017-03-11 09:03 | PN ---
Progress Note, Physician History of Present Illness: OOB in chair Very hard of hearing Denies abdominal pain No N/V Tolerating liquid diet Reports normal BM yesterday without blood Low grade temp noted BC (-) - Current Medication List Current Medications: Active Medications Acetaminophen (Tylenol -) 650 mg PO Q6H PRN PRN Reason: FEVER OR PAIN Albuterol/Ipratropium (Duoneb -) 1 amp NEB Q6H PRN PRN Reason: SHORTNESS OF BREATH Atorvastatin Calcium (Lipitor -) 20 mg PO HS [facility] Last Admin: 03/10/17 21:09 Dose: 20 mg Carvedilol (Coreg -) 6.25 mg PO BID [facility] Last Admin: 03/10/17 21:08 Dose: 6.25 mg Cholecalciferol (Vitamin D3 -) 2,000 unit PO DAILY [facility] Last Admin: 03/10/17 09:59 Dose: 2,000 unit Cyanocobalamin (Vitamin B12 -) 1,000 mcg PO DAILY [facility] Last Admin: 03/10/17 09:59 Dose: 1,000 mcg Metronidazole (Flagyl 500mg Premixed Ivpb -) 100 mls @ 100 mls/hr IVPB Q8H-IV [facility] Last Admin: 03/11/17 01:31 Dose: 100 mls/hr Sodium Chloride (Normal Saline -) 1,000 mls @ 60 mls/hr IV ASDIR [facility] Last Admin: 03/11/17 01:05 Dose: Not Given Piperacillin Sod/Tazobactam Sod (Zosyn 2.25gm Ivpb (Pre-Docked)) 50 mls @ 100 mls/hr IVPB Q8H-IV [facility] PRN Reason: Protocol Last Admin: 03/11/17 01:05 Dose: 100 mls/hr Insulin Aspart (Novolog Vial Sliding Scale -) 1 vial SQ BIDAC [facility] PRN Reason: Protocol Stop: 03/11/17 13:17 Last Admin: 03/11/17 06:03 Dose: Not Given Losartan Potassium (Cozaar -) 100 mg PO DAILY [facility] Last Admin: 03/10/17 09:58 Dose: 100 mg Ondansetron HCl (Zofran Injection) 4 mg IVPB Q6H PRN PRN Reason: NAUSEA Pantoprazole Sodium (Protonix -) 40 mg PO DAILY [facility] Last Admin: 06/20/17 09:58 Dose: 40 mg Prednisone (Deltasone -) 5 mg PO DAILY [facility] Last Admin: 03/10/17 09:58 Dose: 5 mg Risperidone (Risperdal -) 1 mg PO BID [facility] Last Admin: 03/10/17 21:09 Dose: 1 mg - Objective Vital Signs: Vital Signs Temperature 98.7 F 03/11/17 06:59 Pulse Rate 84 03/11/17 06:59 Respiratory Rate 20 03/11/17 06:59 Blood Pressure 149/66 03/11/17 06:59 O2 Sat by Pulse Oximetry (%) 97 03/10/17 21:00 Constitutional: Yes: No Distress Eyes: Yes: Conjunctiva Clear Cardiovascular: Yes: Regular Rate and Rhythm, S1, S2 Respiratory: Yes: CTA Bilaterally Gastrointestinal: Yes: Normal Bowel Sounds, Soft, Abdomen, Obese. No: Tenderness Edema: No Labs: CBC, BMP 03/11/17 06:30 03/11/17 06:30 INR, PTT INR 1.31 (0.82-1.09) H 03/10/17 06:15 Assessment/Plan Acute diverticulitis improved S/P rectal bleeding Azotemia COPD Continue empiric zosyn/ flagyl Switch to po antibiotics next 24hr
[2017-03-11] MEDS: LOSARTAN POTASSIUM 50 MG TABLET (FP) PO SCH (09:31)
[2017-03-11] MEDS: CYANOCOBALAMIN 1,000 MCG TABLET (FP) PO SCH (09:31)
[2017-03-11] MEDS: risperiDONE 1 MG TABLET (FP) PO SCH ×2 (09:32→22:18)
[2017-03-11] MEDS: predniSONE 5 MG TABLET (UD) PO SCH (09:32)
[2017-03-11] MEDS: CHOLECALCIFEROL (VITAMIN D3) 1,000 UNIT TABLET (FP) PO SCH (09:32)
[2017-03-11] MEDS: PANTOPRAZOLE 40 MG TABLET (FP) PO SCH (09:32)
[2017-03-11] MEDS: CARVEDILOL 6.25 MG TABLET (FP) PO SCH ×2 (09:32→22:18)
--- NOTE | 2017-03-11 13:08 | PN ---
Progress Note, Physician History of Present Illness: No further abdominal pain or rectal bleeding. - Current Medication List Current Medications: Active Medications Acetaminophen (Tylenol -) 650 mg PO Q6H PRN PRN Reason: FEVER OR PAIN Albuterol/Ipratropium (Duoneb -) 1 amp NEB Q6H PRN PRN Reason: SHORTNESS OF BREATH Atorvastatin Calcium (Lipitor -) 20 mg PO HS [facility] Last Admin: 03/10/17 21:09 Dose: 20 mg Carvedilol (Coreg -) 6.25 mg PO BID [facility] Last Admin: 03/11/17 09:32 Dose: 6.25 mg Cholecalciferol (Vitamin D3 -) 2,000 unit PO DAILY [facility] Last Admin: 03/11/17 09:32 Dose: 2,000 unit Cyanocobalamin (Vitamin B12 -) 1,000 mcg PO DAILY [facility] Last Admin: 03/11/17 09:31 Dose: 1,000 mcg Metronidazole (Flagyl 500mg Premixed Ivpb -) 100 mls @ 100 mls/hr IVPB Q8H-IV [facility] Last Admin: 03/11/17 09:24 Dose: 100 mls/hr Sodium Chloride (Normal Saline -) 1,000 mls @ 60 mls/hr IV ASDIR [facility] Last Admin: 03/11/17 01:05 Dose: Not Given Piperacillin Sod/Tazobactam Sod (Zosyn 2.25gm Ivpb (Pre-Docked)) 50 mls @ 100 mls/hr IVPB Q8H-IV [facility] PRN Reason: Protocol Last Admin: 03/11/17 09:29 Dose: 100 mls/hr Insulin Aspart (Novolog Vial Sliding Scale -) 1 vial SQ BIDAC [facility] PRN Reason: Protocol Stop: 03/11/17 13:17 Last Admin: 03/11/17 06:03 Dose: Not Given Losartan Potassium (Cozaar -) 100 mg PO DAILY [facility] Last Admin: 03/11/17 09:31 Dose: 100 mg Ondansetron HCl (Zofran Injection) 4 mg IVPB Q6H PRN PRN Reason: NAUSEA Pantoprazole Sodium (Protonix -) 40 mg PO DAILY [facility] Last Admin: 03/11/17 09:32 Dose: 40 mg Prednisone (Deltasone -) 5 mg PO DAILY [facility] Last Admin: 03/11/17 09:32 Dose: 5 mg Risperidone (Risperdal -) 1 mg PO BID [facility] Last Admin: 03/11/17 09:32 Dose: 1 mg - Objective Vital Signs: Vital Signs Temperature 99.0 F 03/11/17 09:00 Pulse Rate 89 03/11/17 10:25 Respiratory Rate 18 03/11/17 09:00 Blood Pressure 133/65 03/11/17 09:00 O2 Sat by Pulse Oximetry (%) 98 03/11/17 10:25 Constitutional: Yes: No Distress, Calm Neck: Yes: Supple Cardiovascular: Yes: Regular Rate and Rhythm Respiratory: Yes: Regular, Diminished Gastrointestinal: Yes: Soft, Hypoactive Bowel Sounds Edema: No Labs: CBC, BMP 03/11/17 06:30 03/11/17 06:30 INR, PTT INR 1.31 (0.82-1.09) H 03/10/17 06:15 Problem List - Problems (1) Diverticulitis large intestine Code(s): K57.32 - DVTRCLI OF LG INT W/O PERFORATION OR ABSCESS W/O BLEEDING Qualifiers: Diverticulitis bleeding: without bleeding Diverticulitis complication: without perforation or abscess Qualified Code(s): K57.32 - Diverticulitis of large intestine without perforation or abscess without bleeding (2) Anemia Code(s): D64.9 - ANEMIA, UNSPECIFIED Qualifiers: Iron deficiency anemia type: chronic blood loss (3) COPD (chronic obstructive pulmonary disease) Code(s): J44.9 - CHRONIC OBSTRUCTIVE PULMONARY DISEASE, UNSPECIFIED Qualifiers : COPD type: COPD with acute exacerbation Qualified Code(s): J44.1 - Chronic obstructive pulmonary disease with (acute) exacerbation (4) Cardiac pacemaker in situ Code(s): Z95.0 - PRESENCE OF CARDIAC PACEMAKER (5) GI bleed Code(s): K92.2 - GASTROINTESTINAL HEMORRHAGE, UNSPECIFIED Qualifiers: GI bleed type/associated pathology: unspecified gastrointestinal hemorrhage type Qualified Code(s): K92.2 - Gastrointestinal hemorrhage, unspecified (6) High-grade atrioventricular block Code(s): I44.39 - OTHER ATRIOVENTRICULAR BLOCK (7) Renal insufficiency Code(s): N28.9 - DISORDER OF KIDNEY AND URETER, UNSPECIFIED (8) ASHD (arteriosclerotic heart disease) Code(s): I25.10 - ATHSCL HEART DISEASE OF [place] CORONARY ARTERY W/O ANG PCTRS (9) Diabetes mellitus Code(s): E11.9 - TYPE 2 DIABETES MELLITUS WITHOUT COMPLICATIONS Qualifiers: Diabetes mellitus type: type 2 Diabetes mellitus complication status: with unspecified complications Diabetes mellitus jail insulin use: without long term care social worker use Qualified Code(s): E11.8 - Type 2 diabetes mellitus with unspecified complications; Z79.4 - jail (current) use of insulin (10) Hyperlipidemia Code(s): E78.5 - HYPERLIPIDEMIA, UNSPECIFIED Qualifiers: Hyperlipidemia type: pure hypercholesterolemia Qualified Code(s): E78.00 - Pure hypercholesterolemia, unspecified; E78.0 - Pure hypercholesterolemia (11) Hypertension Code(s): I10 - ESSENTIAL (PRIMARY) HYPERTENSION Qualifiers: Hypertension type: essential hypertension Qualified Code(s): I10 - Essential (primary) hypertension (12) Systolic dysfunction without heart failure Code(s): I51.9 - HEART DISEASE, UNSPECIFIED Assessment/Plan 10/26/14 Echo: Normal biventricular size and fxn without sig valve abnl 11/28/2016 Echo: Mod-severely decreased LV fxn with severe HK lateral and inferolateral, mold MR, TR RVSP 40-50 mmHg 1. Hematochezia, anemia referable to diverticulitis 2. 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 LV systolic dysfunction 5. Advanced AV block post pacemaker implant 6. HTN 7. Hypercholesterolemia 8. DHEERAJ 9. CKD PLAN: 1. Continue Carvedilol 6.25 bid, losartan 100 qd, Lipitor 20 qhs as hemodynamics tolerate, resume ASA 81 qd once hemostasis achieved, 2. Bronchodilators, wean FIO2 for saO2>90%, empiric abx course to be switched to oral 3. Pacer interrogated 11/2016, GI eval noted, previously declined colonoscopy, may proceed from CV-standpoint if he agrees to proceed and is warranted
--- NOTE | 2017-03-11 13:29 | PN ---
Progress Note, Physician Chief Complaint: Mr Vee says he is feeling fine. Denies cp, sob, n/v. Says he is not bleeding. RN states he is having diarrhea with bleeding. - Current Medication List Current Medications: Active Medications Acetaminophen (Tylenol -) 650 mg PO Q6H PRN PRN Reason: FEVER OR PAIN Albuterol/Ipratropium (Duoneb -) 1 amp NEB Q6H PRN PRN Reason: SHORTNESS OF BREATH Atorvastatin Calcium (Lipitor -) 20 mg PO HS [facility] Last Admin: 03/10/17 21:09 Dose: 20 mg Carvedilol (Coreg -) 6.25 mg PO BID [facility] Last Admin: 03/11/17 09:32 Dose: 6.25 mg Cholecalciferol (Vitamin D3 -) 2,000 unit PO DAILY [facility] Last Admin: 03/11/17 09:32 Dose: 2,000 unit Cyanocobalamin (Vitamin B12 -) 1,000 mcg PO DAILY [facility] Last Admin: 03/11/17 09:31 Dose: 1,000 mcg Metronidazole (Flagyl 500mg Premixed Ivpb -) 100 mls @ 100 mls/hr IVPB Q8H-IV [facility] Last Admin: 03/11/17 09:24 Dose: 100 mls/hr Sodium Chloride (Normal Saline -) 1,000 mls @ 60 mls/hr IV ASDIR [facility] Last Admin: 03/11/17 01:05 Dose: Not Given Piperacillin Sod/Tazobactam Sod (Zosyn 2.25gm Ivpb (Pre-Docked)) 50 mls @ 100 mls/hr IVPB Q8H-IV [facility] PRN Reason: Protocol Last Admin: 03/11/17 09:29 Dose: 100 mls/hr Losartan Potassium (Cozaar -) 100 mg PO DAILY [facility] Last Admin: 03/11/17 09:31 Dose: 100 mg Ondansetron HCl (Zofran Injection) 4 mg IVPB Q6H PRN PRN Reason: NAUSEA Pantoprazole Sodium (Protonix -) 40 mg PO DAILY [facility] Last Admin: 03/11/17 09:32 Dose: 40 mg Prednisone (Deltasone -) 5 mg PO DAILY [facility] Last Admin: 03/11/17 09:32 Dose: 5 mg Risperidone (Risperdal -) 1 mg PO BID [facility] Last Admin: 03/11/17 09:32 Dose: 1 mg - Objective Vital Signs: Vital Signs Temperature 99.0 F 03/11/17 09:00 Pulse Rate 89 03/11/17 10:25 Respiratory Rate 18 03/11/17 09:00 Blood Pressure 133/65 03/11/17 09:00 O2 Sat by Pulse Oximetry (%) 98 03/11/17 10:25 Constitutional: Yes: Well Nourished, No Distress, Calm Cardiovascular: Yes: Regular Rate and Rhythm. No: Gallop, Murmur, Rub Respiratory: Yes: Regular, CTA Bilaterally. No: Rales, Rhonchi, Wheezes Gastrointestinal: Yes: Normal Bowel Sounds, Soft. No: Distention, Tenderness Extremities: Yes: WNL Edema: No Labs: CBC, BMP 03/11/17 06:30 03/11/17 06:30 INR, PTT INR 1.31 (0.82-1.09) H 03/10/17 06:15 Problem List - Problems (1) Diverticulitis large intestine Assessment/Plan: -patient says he is not bleeding, but RN states she saw blood -appreciate ID and GI assistance -continue zosyn and flagyl -improving -planning for colonoscopy thursday per GI Code(s): K57.32 - DVTRCLI OF LG INT W/O PERFORATION OR ABSCESS W/O BLEEDING Qualifiers: Diverticulitis bleeding: with bleeding Diverticulitis complication: without perforation or abscess Qualified Code(s): K57.33 - Diverticulitis of large intestine without perforation or abscess with bleeding (2) Anemia Assessment/Plan: -ABLA -stable -continue to monitor -secondary to GIB Code(s): D64.9 - ANEMIA, UNSPECIFIED Qualifiers: Iron deficiency anemia type: chronic blood loss (3) COPD (chronic obstructive pulmonary disease) Assessment/Plan: -not in exacerbation -continue duonebs -continue prednisone Code(s): J44.9 - CHRONIC OBSTRUCTIVE PULMONARY DISEASE, UNSPECIFIED Qualifiers : Qualified Code(s): J44.1 - Chronic obstructive pulmonary disease with ( acute) exacerbation (4) GI bleed Assessment/Plan: -stable -GI following and case discussed -planning for colonoscopy on Thursday Code(s): K92.2 - GASTROINTESTINAL HEMORRHAGE, UNSPECIFIED Qualifiers: GI bleed type/associated pathology: unspecified gastrointestinal hemorrhage type Qualified Code(s): K92.2 - Gastrointestinal hemorrhage, unspecified (5) Renal insufficiency Assessment/Plan: -at baseline Code(s): N28.9 - DISORDER OF KIDNEY AND URETER, UNSPECIFIED (6) Hyperlipidemia Assessment/Plan: -continue lipitor Code(s): E78.5 - HYPERLIPIDEMIA, UNSPECIFIED Qualifiers: Hyperlipidemia type: pure hypercholesterolemia Qualified Code(s): E78.00 - Pure hypercholesterolemia, unspecified; E78.0 - Pure hypercholesterolemia (7) Hypertension Assessment/Plan: -continue coreg -blood pressure controlled Code(s): I10 - ESSENTIAL (PRIMARY) HYPERTENSION Qualifiers: Hypertension type: essential hypertension Qualified Code(s): I10 - Essential (primary) hypertension
[2017-03-11] MEDS: ATORVASTATIN CA 20 MG TABLET (FP) PO SCH (22:18)
[2017-03-12] MEDS: METRONIDAZOLE 500 MG PREMIXED 100 ML IVPB SCH ×3 (01:30→17:23)
[2017-03-12] MEDS: PIPERACILLIN/TAZOB 2.25 GM 50 ML IVPB SCH ×3 (02:35→17:24)
[2017-03-12 08:21] LABS: EOSINOPHIL 4.6 % (0-4.5); MCH 26.7 pg (25.7-33.7); MCHC 33.1 g/dl (32.0-35.9); MEAN CELL VOLUME 80.5 fl (80-96); MEAN PLT VOLUME 8.2 fl (7.5-11.1); NEUTROPHILS 74.2 % (42.8-82.8); PLATELET COUNT 211 K/MM3 (134-434); RDW 16.3 % (11.9-15.9); WHITE BLOOD COUNT 7.3 K/mm3 (4.0-10.0)
[2017-03-12 08:51] LABS: ANION GAP 9 (8-16); CO2 25 mmol/L (21-32); CREATININE 1.5 mg/dL (0.7-1.3); GLUCOSE,RANDOM 84 mg/dL (74-106); MAGNESIUM 1.8 mg/dL (1.8-2.4); PHOSPHOROUS 2.2 mg/dL (2.5-4.9)
[2017-03-12] MEDS: SODIUM CHLORIDE 1,000 ML IV SCH (09:43)
[2017-03-12] MEDS: PANTOPRAZOLE 40 MG TABLET (FP) PO SCH (09:45)
[2017-03-12] MEDS: CHOLECALCIFEROL (VITAMIN D3) 1,000 UNIT TABLET (FP) PO SCH (09:45)
[2017-03-12] MEDS: LOSARTAN POTASSIUM 50 MG TABLET (FP) PO SCH (09:45)
[2017-03-12] MEDS: CYANOCOBALAMIN 1,000 MCG TABLET (FP) PO SCH (09:45)
[2017-03-12] MEDS: predniSONE 5 MG TABLET (UD) PO SCH (09:46)
[2017-03-12] MEDS: risperiDONE 1 MG TABLET (FP) PO SCH ×2 (09:47→21:32)
[2017-03-12] MEDS: CARVEDILOL 6.25 MG TABLET (FP) PO SCH ×2 (09:47→21:32)
--- NOTE | 2017-03-12 10:34 | PN ---
Progress Note (short form) - Note Progress Note: Patient is agreeing for colonoscopy. Given previous concerns of ? lesion in the sigmoid on previous colonoscopy as well as his poor compliance, the plan of for colonoscopy while as an inpatient now. I reviewed the risks of the procedure with Mr. Vee and wrote them out fletcher he is hard of hearing like but not limited to bleeding, perforation requiring surgery to repair, infection, sedation medicaiton effects all of which could be potentially life threatening. He has agreed to the procedure and consent was obtained.
--- NOTE | 2017-03-12 13:45 | PN ---
Progress Note, Physician History of Present Illness: OOB in chair No c/o abdominal pain No fever/chills WBC WNL BC (-) Renal function improved - Current Medication List Current Medications: Active Medications Acetaminophen (Tylenol -) 650 mg PO Q6H PRN PRN Reason: FEVER OR PAIN Albuterol/Ipratropium (Duoneb -) 1 amp NEB Q6H PRN PRN Reason: SHORTNESS OF BREATH Atorvastatin Calcium (Lipitor -) 20 mg PO HS [facility] Last Admin: 03/11/17 22:18 Dose: 20 mg Bisacodyl (Dulcolax -) 20 mg PO ONCE ONE Stop: 03/12/17 14:01 Carvedilol (Coreg -) 6.25 mg PO BID [facility] Last Admin: 03/12/17 09:47 Dose: 6.25 mg Cholecalciferol (Vitamin D3 -) 2,000 unit PO DAILY [facility] Last Admin: 03/12/17 09:45 Dose: 2,000 unit Cyanocobalamin (Vitamin B12 -) 1,000 mcg PO DAILY [facility] Last Admin: 03/12/17 09:45 Dose: 1,000 mcg Metronidazole (Flagyl 500mg Premixed Ivpb -) 100 mls @ 100 mls/hr IVPB Q8H-IV [facility] Last Admin: 03/12/17 09:45 Dose: 100 mls/hr Sodium Chloride (Normal Saline -) 1,000 mls @ 60 mls/hr IV ASDIR [facility] Last Admin: 03/12/17 09:43 Dose: Not Given Piperacillin Sod/Tazobactam Sod (Zosyn 2.25gm Ivpb (Pre-Docked)) 50 mls @ 100 mls/hr IVPB Q8H-IV [facility] PRN Reason: Protocol Last Admin: 03/12/17 09:45 Dose: 100 mls/hr Losartan Potassium (Cozaar -) 100 mg PO DAILY [facility] Last Admin: 03/12/17 09:45 Dose: 100 mg Ondansetron HCl (Zofran Injection) 4 mg IVPB Q6H PRN PRN Reason: NAUSEA Pantoprazole Sodium (Protonix -) 40 mg PO DAILY [facility] Last Admin: 03/12/17 09:45 Dose: 40 mg Prednisone (Deltasone -) 5 mg PO DAILY [facility] Last Admin: 03/12/17 09:46 Dose: 5 mg Risperidone (Risperdal -) 1 mg PO BID [facility] Last Admin: 03/12/17 09:47 Dose: 1 mg - Objective Vital Signs: Vital Signs Temperature 97.7 F 03/12/17 10:00 Pulse Rate 77 03/12/17 11:38 Respiratory Rate 18 03/12/17 10:00 Blood Pressure 120/66 03/12/17 10:00 O2 Sat by Pulse Oximetry (%) 98 03/12/17 11:38 Constitutional: Yes: No Distress, Obese Eyes: Yes: Conjunctiva Clear Cardiovascular: Yes: Regular Rate and Rhythm, S1, S2 Respiratory: Yes: CTA Bilaterally Gastrointestinal: Yes: Normal Bowel Sounds, Soft, Abdomen, Obese. No: Tenderness Edema: No Labs: CBC, BMP 03/12/17 07:00 03/12/17 07:00 INR, PTT INR 1.31 (0.82-1.09) H 03/10/17 06:15 Assessment/Plan Acute diverticulitis improved S/P rectal bleeding Azotemia COPD Continue empiric zosyn/ flagyl; D/C post colonoscopy tomorrow
[2017-03-12] MEDS ORDERED: BISACODYL 5 MG TABLET.DR (FP) PO ONE (14:00)
[2017-03-12] MEDS ORDERED: PEG3350/SOD SULF,BICARB,CL/KCL 4,000 ML SOLN.RECON PO ONE (15:00)
--- NOTE | 2017-03-12 16:37 | PN ---
Progress Note, Physician Chief Complaint: Mr Vee says he is feeling fine. Denies cp, sob, n/v. - Current Medication List Current Medications: Active Medications Acetaminophen (Tylenol -) 650 mg PO Q6H PRN PRN Reason: FEVER OR PAIN Albuterol/Ipratropium (Duoneb -) 1 amp NEB Q6H PRN PRN Reason: SHORTNESS OF BREATH Atorvastatin Calcium (Lipitor -) 20 mg PO HS [facility] Last Admin: 03/11/17 22:18 Dose: 20 mg Carvedilol (Coreg -) 6.25 mg PO BID [facility] Last Admin: 03/12/17 09:47 Dose: 6.25 mg Cholecalciferol (Vitamin D3 -) 2,000 unit PO DAILY [facility] Last Admin: 03/12/17 09:45 Dose: 2,000 unit Cyanocobalamin (Vitamin B12 -) 1,000 mcg PO DAILY [facility] Last Admin: 03/12/17 09:45 Dose: 1,000 mcg Metronidazole (Flagyl 500mg Premixed Ivpb -) 100 mls @ 100 mls/hr IVPB Q8H-IV [facility] Last Admin: 03/12/17 09:45 Dose: 100 mls/hr Sodium Chloride (Normal Saline -) 1,000 mls @ 60 mls/hr IV ASDIR [facility] Last Admin: 03/12/17 09:43 Dose: Not Given Piperacillin Sod/Tazobactam Sod (Zosyn 2.25gm Ivpb (Pre-Docked)) 50 mls @ 100 mls/hr IVPB Q8H-IV [facility] PRN Reason: Protocol Last Admin: 03/12/17 09:45 Dose: 100 mls/hr Losartan Potassium (Cozaar -) 100 mg PO DAILY [facility] Last Admin: 03/12/17 09:45 Dose: 100 mg Ondansetron HCl (Zofran Injection) 4 mg IVPB Q6H PRN PRN Reason: NAUSEA Pantoprazole Sodium (Protonix -) 40 mg PO DAILY [facility] Last Admin: 03/12/17 09:45 Dose: 40 mg Prednisone (Deltasone -) 5 mg PO DAILY [facility] Last Admin: 03/12/17 09:46 Dose: 5 mg Risperidone (Risperdal -) 1 mg PO BID [facility] Last Admin: 03/12/17 09:47 Dose: 1 mg - Objective Vital Signs: Vital Signs Temperature 98.0 F 06/22/17 15:52 Pulse Rate 67 03/12/17 15:52 Respiratory Rate 20 03/12/17 15:52 Blood Pressure 146/60 03/12/17 15:52 O2 Sat by Pulse Oximetry (%) 98 03/12/17 11:38 Constitutional: Yes: Well Nourished, No Distress, Calm Cardiovascular: Yes: Regular Rate and Rhythm. No: Gallop, Murmur, Rub Respiratory: Yes: Regular, CTA Bilaterally. No: Rales, Rhonchi, Wheezes Gastrointestinal: Yes: Normal Bowel Sounds, Soft. No: Distention, Tenderness Extremities: Yes: WNL Edema: No Labs: CBC, BMP 03/12/17 07:00 03/12/17 07:00 INR, PTT INR 1.31 (0.82-1.09) H 03/10/17 06:15 Problem List - Problems (1) Diverticulitis large intestine Code(s): K57.32 - DVTRCLI OF LG INT W/O PERFORATION OR ABSCESS W/O BLEEDING Qualifiers: Diverticulitis bleeding: with bleeding Diverticulitis complication: without perforation or abscess Qualified Code(s): K57.33 - Diverticulitis of large intestine without perforation or abscess with bleeding (2) Anemia Code(s): D64.9 - ANEMIA, UNSPECIFIED Qualifiers: Iron deficiency anemia type: chronic blood loss (3) COPD (chronic obstructive pulmonary disease) Code(s): J44.9 - CHRONIC OBSTRUCTIVE PULMONARY DISEASE, UNSPECIFIED (4) GI bleed Code(s): K92.2 - GASTROINTESTINAL HEMORRHAGE, UNSPECIFIED Qualifiers: GI bleed type/associated pathology: unspecified gastrointestinal hemorrhage type Qualified Code(s): K92.2 - Gastrointestinal hemorrhage, unspecified (5) Renal insufficiency Code(s): N28.9 - DISORDER OF KIDNEY AND URETER, UNSPECIFIED (6) Hyperlipidemia Code(s): E78.5 - HYPERLIPIDEMIA, UNSPECIFIED Qualifiers: Hyperlipidemia type: pure hypercholesterolemia Qualified Code(s): E78.00 - Pure hypercholesterolemia, unspecified; E78.0 - Pure hypercholesterolemia (7) Hypertension Code(s): I10 - ESSENTIAL (PRIMARY) HYPERTENSION Qualifiers: Hypertension type: essential hypertension Qualified Code(s): I10 - Essential (primary) hypertension Assessment/Plan (1) Diverticulitis large intestine Assessment/Plan: -continue flagyl and zosyn -ID note reviewed -planning for colonoscopy Thursday Code(s): K57.32 - DVTRCLI OF LG INT W/O PERFORATION OR ABSCESS W/O BLEEDING Qualifiers: Diverticulitis bleeding: with bleeding Diverticulitis complication: without perforation or abscess Qualified Code(s): K57.33 - Diverticulitis of large intestine without perforation or abscess with bleeding (2) Anemia Assessment/Plan: -ABLA -stable -continue to monitor -secondary to GIB Code(s): D64.9 - ANEMIA, UNSPECIFIED Qualifiers: Iron deficiency anemia type: chronic blood loss (3) COPD (chronic obstructive pulmonary disease) Assessment/Plan: -not in exacerbation -continue duonebs -continue prednisone Code(s): J44.9 - CHRONIC OBSTRUCTIVE PULMONARY DISEASE, UNSPECIFIED Qualifiers : Qualified Code(s): J44.1 - Chronic obstructive pulmonary disease with ( acute) exacerbation (4) GI bleed Assessment/Plan: -stable -GI following and case discussed -planning for colonoscopy on Thursday -patient to do prep today Code(s): K92.2 - GASTROINTESTINAL HEMORRHAGE, UNSPECIFIED Qualifiers: GI bleed type/associated pathology: unspecified gastrointestinal hemorrhage type Qualified Code(s): K92.2 - Gastrointestinal hemorrhage, unspecified (5) Renal insufficiency Assessment/Plan: -at baseline Code(s): N28.9 - DISORDER OF KIDNEY AND URETER, UNSPECIFIED (6) Hyperlipidemia Assessment/Plan: -continue lipitor Code(s): E78.5 - HYPERLIPIDEMIA, UNSPECIFIED Qualifiers: Hyperlipidemia type: pure hypercholesterolemia Qualified Code(s): E78.00 - Pure hypercholesterolemia, unspecified; E78.0 - Pure hypercholesterolemia (7) Hypertension Assessment/Plan: -continue coreg -blood pressure controlled Code(s): I10 - ESSENTIAL (PRIMARY) HYPERTENSION Qualifiers: Hypertension type: essential hypertension Qualified Code(s): I10 - Essential (primary) hypertension
[2017-03-12] MEDS: ATORVASTATIN CA 20 MG TABLET (FP) PO SCH (21:32)
[2017-03-13] MEDS: METRONIDAZOLE 500 MG PREMIXED 100 ML IVPB SCH ×3 (02:03→17:03)
[2017-03-13] MEDS: PIPERACILLIN/TAZOB 2.25 GM 50 ML IVPB SCH ×2 (03:03→10:53)
[2017-03-13] MEDS: SODIUM CHLORIDE 1,000 ML IV SCH (03:03)
[2017-03-13] MEDS ORDERED: KETAMINE HCL 500 MG/10 ML VIAL ONE (07:57)
[2017-03-13] MEDS ORDERED: PROPOFOL 20 ML ONE (07:57)
[2017-03-13 08:17] LABS: BASOPHIL 0.8 % (0-2.0); EOSINOPHIL 5.1 % (0-4.5); MCH 26.7 pg (25.7-33.7); MCHC 33.1 g/dl (32.0-35.9); MEAN CELL VOLUME 80.9 fl (80-96); MEAN PLT VOLUME 8.3 fl (7.5-11.1); NEUTROPHILS 70.7 % (42.8-82.8); PLATELET COUNT 208 K/MM3 (134-434); RDW 16.3 % (11.9-15.9); WHITE BLOOD COUNT 7.3 K/mm3 (4.0-10.0)
[2017-03-13 08:32] LABS: ANION GAP 12 (8-16); CALCIUM 7.8 mg/dL (8.5-10.1); CO2 25 mmol/L (21-32); CREATININE 1.4 mg/dL (0.7-1.3); GLUCOSE,RANDOM 81 mg/dL (74-106); MAGNESIUM 1.8 mg/dL (1.8-2.4); PHOSPHOROUS 1.5 mg/dL (2.5-4.9)
--- NOTE | 2017-03-13 09:39 | PN ---
Progress Note (short form) - Note Progress Note: GI Procedure NOte: Please see sigmoidoscopy report. A large pedunculated sigmoid polyp developed arterial bleeding after polypectomy which was controlled with epinephrine injections and by placing two endoclips. Severe sigmoid diverticulosis was encountered which could require maneuvering that could lead to rebleeding so the procedure was limited to a sigmoidoscopy. The polyp site was tattooed and a unit of blood will be given. Will reattempt colonoscopy when the clinical situation permits.
[2017-03-13] MEDS: predniSONE 5 MG TABLET (UD) PO SCH (10:51)
[2017-03-13] MEDS: LOSARTAN POTASSIUM 50 MG TABLET (FP) PO SCH (10:51)
[2017-03-13] MEDS: PANTOPRAZOLE 40 MG TABLET (FP) PO SCH (10:51)
[2017-03-13] MEDS: CHOLECALCIFEROL (VITAMIN D3) 1,000 UNIT TABLET (FP) PO SCH (10:52)
[2017-03-13] MEDS: risperiDONE 1 MG TABLET (FP) PO SCH ×2 (10:53→21:19)
[2017-03-13] MEDS: CYANOCOBALAMIN 1,000 MCG TABLET (FP) PO SCH (10:53)
[2017-03-13] MEDS: CARVEDILOL 6.25 MG TABLET (FP) PO SCH ×2 (10:53→21:19)
--- NOTE | 2017-03-13 12:25 | PN ---
Progress Note, Physician Chief Complaint: OOB in chair No complaints S/P colonoscopy - Current Medication List Current Medications: Active Medications Acetaminophen (Tylenol -) 650 mg PO Q6H PRN PRN Reason: FEVER OR PAIN Albuterol/Ipratropium (Duoneb -) 1 amp NEB Q6H PRN PRN Reason: SHORTNESS OF BREATH Atorvastatin Calcium (Lipitor -) 20 mg PO HS [facility] Last Admin: 03/12/17 21:32 Dose: 20 mg Carvedilol (Coreg -) 6.25 mg PO BID [facility] Last Admin: 03/13/17 10:53 Dose: 6.25 mg Cholecalciferol (Vitamin D3 -) 2,000 unit PO DAILY [facility] Last Admin: 03/13/17 10:52 Dose: 2,000 unit Cyanocobalamin (Vitamin B12 -) 1,000 mcg PO DAILY [facility] Last Admin: 03/13/17 10:53 Dose: 1,000 mcg Metronidazole (Flagyl 500mg Premixed Ivpb -) 100 mls @ 100 mls/hr IVPB Q8H-IV [facility] Last Admin: 03/13/17 10:53 Dose: 100 mls/hr Sodium Chloride (Normal Saline -) 1,000 mls @ 60 mls/hr IV ASDIR [facility] Last Admin: 03/13/17 03:03 Dose: 60 mls/hr Piperacillin Sod/Tazobactam Sod (Zosyn 2.25gm Ivpb (Pre-Docked)) 50 mls @ 100 mls/hr IVPB Q8H-IV [facility] PRN Reason: Protocol Last Admin: 03/13/17 10:53 Dose: 100 mls/hr Losartan Potassium (Cozaar -) 100 mg PO DAILY [facility] Last Admin: 03/13/17 10:51 Dose: 100 mg Ondansetron HCl (Zofran Injection) 4 mg IVPB Q6H PRN PRN Reason: NAUSEA Pantoprazole Sodium (Protonix -) 40 mg PO DAILY [facility] Last Admin: 03/13/17 10:51 Dose: 40 mg Prednisone (Deltasone -) 5 mg PO DAILY [facility] Last Admin: 03/13/17 10:51 Dose: 5 mg Risperidone (Risperdal -) 1 mg PO BID [facility] Last Admin: 03/13/17 10:53 Dose: 1 mg - Objective Vital Signs: Vital Signs Temperature 97.8 F 03/13/17 09:23 Pulse Rate 82 03/13/17 09:23 Respiratory Rate 20 03/13/17 09:23 Blood Pressure 141/62 03/13/17 09:23 O2 Sat by Pulse Oximetry (%) 95 03/13/17 09:23 Constitutional: Yes: No Distress Eyes: Yes: Conjunctiva Clear Cardiovascular: Yes: Regular Rate and Rhythm, S1, S2 Respiratory: Yes: CTA Bilaterally Gastrointestinal: Yes: Normal Bowel Sounds, Soft. No: Tenderness Labs: CBC, BMP 03/13/17 07:00 03/13/17 07:00 INR, PTT INR 1.31 (0.82-1.09) H 03/10/17 06:15 Assessment/Plan S/P rectal bleeding Azotemia COPD D/C Antibiotics
--- NOTE | 2017-03-13 14:30 | PN ---
Progress Note, Physician History of Present Illness: No further abdominal pain or rectal bleeding, s/p sigmoidoscopy and polypectomy. - Current Medication List Current Medications: Active Medications Acetaminophen (Tylenol -) 650 mg PO Q6H PRN PRN Reason: FEVER OR PAIN Albuterol/Ipratropium (Duoneb -) 1 amp NEB Q6H PRN PRN Reason: SHORTNESS OF BREATH Atorvastatin Calcium (Lipitor -) 20 mg PO HS [facility] Last Admin: 03/12/17 21:32 Dose: 20 mg Carvedilol (Coreg -) 6.25 mg PO BID [facility] Last Admin: 03/13/17 10:53 Dose: 6.25 mg Cholecalciferol (Vitamin D3 -) 2,000 unit PO DAILY [facility] Last Admin: 03/13/17 10:52 Dose: 2,000 unit Cyanocobalamin (Vitamin B12 -) 1,000 mcg PO DAILY [facility] Last Admin: 03/13/17 10:53 Dose: 1,000 mcg Metronidazole (Flagyl 500mg Premixed Ivpb -) 100 mls @ 100 mls/hr IVPB Q8H-IV [facility] Last Admin: 03/13/17 10:53 Dose: 100 mls/hr Sodium Chloride (Normal Saline -) 1,000 mls @ 60 mls/hr IV ASDIR [facility] Last Admin: 03/13/17 03:03 Dose: 60 mls/hr Losartan Potassium (Cozaar -) 100 mg PO DAILY [facility] Last Admin: 03/13/17 10:51 Dose: 100 mg Ondansetron HCl (Zofran Injection) 4 mg IVPB Q6H PRN PRN Reason: NAUSEA Pantoprazole Sodium (Protonix -) 40 mg PO DAILY [facility] Last Admin: 03/13/17 10:51 Dose: 40 mg Prednisone (Deltasone -) 5 mg PO DAILY [facility] Last Admin: 03/13/17 10:51 Dose: 5 mg Risperidone (Risperdal -) 1 mg PO BID [facility] Last Admin: 03/13/17 10:53 Dose: 1 mg - Objective Vital Signs: Vital Signs Temperature 97.8 F 03/13/17 09:23 Pulse Rate 92 H 03/13/17 11:25 Respiratory Rate 20 03/13/17 09:23 Blood Pressure 141/62 03/13/17 09:23 O2 Sat by Pulse Oximetry (%) 97 03/13/17 11:25 Constitutional: Yes: No Distress, Calm Neck: Yes: Supple Cardiovascular: Yes: Regular Rate and Rhythm Respiratory: Yes: Regular, Diminished Gastrointestinal: Yes: Normal Bowel Sounds, Soft, Abdomen, Obese Edema: No Labs: CBC, BMP 03/13/17 07:00 03/13/17 07:00 INR, PTT INR 1.31 (0.82-1.09) H 03/10/17 06:15 Problem List - Problems (1) Diverticulitis large intestine Code(s): K57.32 - DVTRCLI OF LG INT W/O PERFORATION OR ABSCESS W/O BLEEDING Qualifiers: Diverticulitis bleeding: with bleeding Diverticulitis complication: without perforation or abscess Qualified Code(s): K57.33 - Diverticulitis of large intestine without perforation or abscess with bleeding (2) Anemia Code(s): D64.9 - ANEMIA, UNSPECIFIED Qualifiers: Iron deficiency anemia type: chronic blood loss (3) COPD (chronic obstructive pulmonary disease) Code(s): J44.9 - CHRONIC OBSTRUCTIVE PULMONARY DISEASE, UNSPECIFIED (4) Cardiac pacemaker in situ Code(s): Z95.0 - PRESENCE OF CARDIAC PACEMAKER (5) GI bleed Code(s): K92.2 - GASTROINTESTINAL HEMORRHAGE, UNSPECIFIED Qualifiers: GI bleed type/associated pathology: unspecified gastrointestinal hemorrhage type Qualified Code(s): K92.2 - Gastrointestinal hemorrhage, unspecified (6) High-grade atrioventricular block Code(s): I44.39 - OTHER ATRIOVENTRICULAR BLOCK (7) Renal insufficiency Code(s): N28.9 - DISORDER OF KIDNEY AND URETER, UNSPECIFIED (8) ASHD (arteriosclerotic heart disease) Code(s): I25.10 - ATHSCL HEART DISEASE OF [place] CORONARY ARTERY W/O ANG PCTRS (9) Diabetes mellitus Code(s): E11.9 - TYPE 2 DIABETES MELLITUS WITHOUT COMPLICATIONS Qualifiers: Diabetes mellitus type: type 2 Diabetes mellitus complication status: with unspecified complications 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 use: without senior living use Qualified Code(s): E11.8 - Type 2 diabetes mellitus with unspecified complications; Z79.4 - correction (current) use of insulin (10) Hyperlipidemia Code(s): E78.5 - HYPERLIPIDEMIA, UNSPECIFIED Qualifiers: Hyperlipidemia type: pure hypercholesterolemia Qualified Code(s): E78.00 - Pure hypercholesterolemia, unspecified; E78.0 - Pure hypercholesterolemia (11) Hypertension Code(s): I10 - ESSENTIAL (PRIMARY) HYPERTENSION Qualifiers: Hypertension type: essential hypertension Qualified Code(s): I10 - Essential (primary) hypertension (12) Systolic dysfunction without heart failure Code(s): I51.9 - HEART DISEASE, UNSPECIFIED Assessment/Plan 10/26/14 Echo: Normal biventricular size and fxn without sig valve abnl 11/28/2016 Echo: Mod-severely decreased LV fxn with severe HK lateral and inferolateral, mold MR, TR RVSP 40-50 mmHg 1. Hematochezia, anemia referable to diverticulitis, post sigmoid polypectomy 2. 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 LV systolic dysfunction 5. Advanced AV block post pacemaker implant interrogated 11/2016 6. HTN 7. Hypercholesterolemia 8. DHEERAJ 9. Acute on CKD improving PLAN: 1. Continue Carvedilol 6.25 bid, losartan 100 qd, Lipitor 20 qhs as hemodynamics tolerate, resume ASA 81 qd once hemostasis achieved, 2. Bronchodilators, wean FIO2 for saO2>90%, completed abx course 3. Sigmoidoscopy results appreciated, plan for colonoscopy attempt in future
--- NOTE | 2017-03-13 16:56 | PN ---
Progress Note, Physician Chief Complaint: Mr Vee says he is feeling fine. Denies cp, sob, n/v. - Current Medication List Current Medications: Active Medications Acetaminophen (Tylenol -) 650 mg PO Q6H PRN PRN Reason: FEVER OR PAIN Albuterol/Ipratropium (Duoneb -) 1 amp NEB Q6H PRN PRN Reason: SHORTNESS OF BREATH Atorvastatin Calcium (Lipitor -) 20 mg PO HS [facility] Last Admin: 03/12/17 21:32 Dose: 20 mg Carvedilol (Coreg -) 6.25 mg PO BID [facility] Last Admin: 03/13/17 10:53 Dose: 6.25 mg Cholecalciferol (Vitamin D3 -) 2,000 unit PO DAILY [facility] Last Admin: 03/13/17 10:52 Dose: 2,000 unit Cyanocobalamin (Vitamin B12 -) 1,000 mcg PO DAILY [facility] Last Admin: 03/13/17 10:53 Dose: 1,000 mcg Metronidazole (Flagyl 500mg Premixed Ivpb -) 100 mls @ 100 mls/hr IVPB Q8H-IV [facility] Last Admin: 03/13/17 10:53 Dose: 100 mls/hr Sodium Chloride (Normal Saline -) 1,000 mls @ 60 mls/hr IV ASDIR [facility] Last Admin: 03/13/17 03:03 Dose: 60 mls/hr Losartan Potassium (Cozaar -) 100 mg PO DAILY [facility] Last Admin: 03/13/17 10:51 Dose: 100 mg Ondansetron HCl (Zofran Injection) 4 mg IVPB Q6H PRN PRN Reason: NAUSEA Pantoprazole Sodium (Protonix -) 40 mg PO DAILY [facility] Last Admin: 03/13/17 10:51 Dose: 40 mg Prednisone (Deltasone -) 5 mg PO DAILY [facility] Last Admin: 03/13/17 10:51 Dose: 5 mg Risperidone (Risperdal -) 1 mg PO BID [facility] Last Admin: 03/13/17 10:53 Dose: 1 mg - Objective Vital Signs: Vital Signs Temperature 98.0 F 03/13/17 14:53 Pulse Rate 85 03/13/17 14:53 Respiratory Rate 18 03/13/17 15:46 Blood Pressure 156/77 03/13/17 14:53 O2 Sat by Pulse Oximetry (%) 97 03/13/17 15:46 Constitutional: Yes: Well Nourished, No Distress, Calm Cardiovascular: Yes: Regular Rate and Rhythm. No: Gallop, Murmur, Rub Respiratory: Yes: Regular, CTA Bilaterally. No: Rales, Rhonchi, Wheezes Gastrointestinal: Yes: Normal Bowel Sounds, Soft. No: Distention, Tenderness Extremities: Yes: WNL Edema: No Labs: CBC, BMP 03/13/17 07:00 03/13/17 07:00 INR, PTT INR 1.31 (0.82-1.09) H 03/10/17 06:15 Problem List - Problems (1) Diverticulitis large intestine Code(s): K57.32 - DVTRCLI OF LG INT W/O PERFORATION OR ABSCESS W/O BLEEDING Qualifiers: Diverticulitis bleeding: with bleeding Diverticulitis complication: without perforation or abscess Qualified Code(s): K57.33 - Diverticulitis of large intestine without perforation or abscess with bleeding (2) Anemia Code(s): D64.9 - ANEMIA, UNSPECIFIED Qualifiers: Iron deficiency anemia type: chronic blood loss (3) COPD (chronic obstructive pulmonary disease) Code(s): J44.9 - CHRONIC OBSTRUCTIVE PULMONARY DISEASE, UNSPECIFIED (4) GI bleed Code(s): K92.2 - GASTROINTESTINAL HEMORRHAGE, UNSPECIFIED Qualifiers: GI bleed type/associated pathology: unspecified gastrointestinal hemorrhage type Qualified Code(s): K92.2 - Gastrointestinal hemorrhage, unspecified (5) Renal insufficiency Code(s): N28.9 - DISORDER OF KIDNEY AND URETER, UNSPECIFIED (6) Hyperlipidemia Code(s): E78.5 - HYPERLIPIDEMIA, UNSPECIFIED Qualifiers: Hyperlipidemia type: pure hypercholesterolemia Qualified Code(s): E78.00 - Pure hypercholesterolemia, unspecified; E78.0 - Pure hypercholesterolemia (7) Hypertension Code(s): I10 - ESSENTIAL (PRIMARY) HYPERTENSION Qualifiers: Hypertension type: essential hypertension Qualified Code(s): I10 - Essential (primary) hypertension Assessment/Plan (1) Diverticulitis large intestine Assessment/Plan: -ID note reviewed -antibiotics stopped Code(s): K57.32 - DVTRCLI OF LG INT W/O PERFORATION OR ABSCESS W/O BLEEDING Qualifiers: Diverticulitis bleeding: with bleeding Diverticulitis complication: without perforation or abscess Qualified Code(s): K57.33 - Diverticulitis of large intestine without perforation or abscess with bleeding (2) Anemia Assessment/Plan: -ABLA -secondary to GIB -s/p sigmoidoscopy, note reviewed -received blood transfusion today -monitor cbc Code(s): D64.9 - ANEMIA, UNSPECIFIED Qualifiers: Iron deficiency anemia type: chronic blood loss (3) COPD (chronic obstructive pulmonary disease) Assessment/Plan: -not in exacerbation -continue duonebs -continue prednisone Code(s): J44.9 - CHRONIC OBSTRUCTIVE PULMONARY DISEASE, UNSPECIFIED Qualifiers : Qualified Code(s): J44.1 - Chronic obstructive pulmonary disease with ( acute) exacerbation (4) GI bleed Assessment/Plan: -sigmoidoscopy, unable to do colonoscopy secondary to diverticulosis -monitor -attempt colonoscopy again when clinically indicated Code(s): K92.2 - GASTROINTESTINAL HEMORRHAGE, UNSPECIFIED Qualifiers: GI bleed type/associated pathology: unspecified gastrointestinal hemorrhage type Qualified Code(s): K92.2 - Gastrointestinal hemorrhage, unspecified (5) Renal insufficiency Assessment/Plan: -at baseline Code(s): N28.9 - DISORDER OF KIDNEY AND URETER, UNSPECIFIED (6) Hyperlipidemia Assessment/Plan: -continue lipitor Code(s): E78.5 - HYPERLIPIDEMIA, UNSPECIFIED Qualifiers: Hyperlipidemia type: pure hypercholesterolemia Qualified Code(s): E78.00 - Pure hypercholesterolemia, unspecified; E78.0 - Pure hypercholesterolemia (7) Hypertension Assessment/Plan: -continue coreg -blood pressure controlled Code(s): I10 - ESSENTIAL (PRIMARY) HYPERTENSION Qualifiers: Hypertension type: essential hypertension Qualified Code(s): I10 - Essential (primary) hypertension
[2017-03-13] MEDS: POLYETHYLENE GLYCOL 3350 119 GM BTL PO SCH (21:19)
[2017-03-13] MEDS: ATORVASTATIN CA 20 MG TABLET (FP) PO SCH (21:19)
[2017-03-14] MEDS: SODIUM CHLORIDE 1,000 ML IV SCH ×2 (02:31→10:31)
[2017-03-14] MEDS: METRONIDAZOLE 500 MG PREMIXED 100 ML IVPB SCH ×3 (02:32→17:50)
[2017-03-14] MEDS: POLYETHYLENE GLYCOL 3350 119 GM BTL PO SCH ×3 (06:26→21:18)
[2017-03-14 08:22] LABS: BASOPHIL 0.5 % (0-2.0); EOSINOPHIL 2.9 % (0-4.5); MCH 27.4 pg (25.7-33.7); MCHC 33.3 g/dl (32.0-35.9); MEAN CELL VOLUME 82.4 fl (80-96); MEAN PLT VOLUME 8.6 fl (7.5-11.1); NEUTROPHILS 74.2 % (42.8-82.8); PLATELET COUNT 203 K/MM3 (134-434); RDW 17.2 % (11.9-15.9); WHITE BLOOD COUNT 7.8 K/mm3 (4.0-10.0)
[2017-03-14 08:33] LABS: ANION GAP 9 (8-16); CALCIUM 7.7 mg/dL (8.5-10.1); CO2 24 mmol/L (21-32); CREATININE 1.3 mg/dL (0.7-1.3); GLUCOSE,RANDOM 82 mg/dL (74-106); MAGNESIUM 1.8 mg/dL (1.8-2.4); PHOSPHOROUS 1.8 mg/dL (2.5-4.9)
[2017-03-14] MEDS ORDERED: PT OWN MED DRAWER 7, Y5N ONE (10:13)
[2017-03-14] MEDS: CYANOCOBALAMIN 1,000 MCG TABLET (FP) PO SCH (10:30)
[2017-03-14] MEDS: CARVEDILOL 6.25 MG TABLET (FP) PO SCH ×2 (10:30→21:18)
[2017-03-14] MEDS: PANTOPRAZOLE 40 MG TABLET (FP) PO SCH (10:30)
[2017-03-14] MEDS: predniSONE 5 MG TABLET (UD) PO SCH (10:30)
[2017-03-14] MEDS: risperiDONE 1 MG TABLET (FP) PO SCH ×2 (10:31→21:18)
[2017-03-14] MEDS: LOSARTAN POTASSIUM 50 MG TABLET (FP) PO SCH (10:31)
[2017-03-14] MEDS: CHOLECALCIFEROL (VITAMIN D3) 1,000 UNIT TABLET (FP) PO SCH (10:31)
--- NOTE | 2017-03-14 14:58 | PN ---
GI Progress Note Subjective: GI F/U NOTE FOR DR OLIVA PT NOT COMMUNICATIVE TODAY LETHARGIC OOB> CHAIR NO NOTD COMPLAINTS NURSE REPORTS DIARRHEA AND NO BLEEDING S/P ATTEMPTED COLON YESTERDAY WITH DIFFICULT EXAM AND LARGE POLYP REMOVED BLEEDING ENSUED AND ENDOCLIPS PLACED NO EVIDENCE OF ANY CLINICAL RE-BLEEDING AT THIS TIME NO BRBPR AND HGB IMPROVED - Objective Vital Signs: Vital Signs Temperature 96.4 F L 03/14/17 14:31 Pulse Rate 81 03/14/17 14:31 Respiratory Rate 20 03/14/17 14:31 Blood Pressure 131/73 03/14/17 14:31 O2 Sat by Pulse Oximetry (%) 99 03/14/17 13:55 Constitutional: No Distress (+bs SOFT/NT NO M/R/G), Calm Labs: CBC, BMP 03/14/17 06:40 03/14/17 06:30 INR, PTT INR 1.31 (0.82-1.09) H 03/10/17 06:15 Assessment/Plan 82M WITH BLEEDING ON REMNOVAL OF LARGE LEFT COLON POLYP THAT REQUIRED CLIPS TO ASSURE HEMOSTASIS NO FURTHER BLEEDING NOTED AND CLIN. STABLE PT HAS REMAINED ON CLEARS PO WILL PLAN BOWEL PREP FOR 03/15 AND IF PT IS WILLING, DR OLIVA WILL RE-ATTEMPT A COMPLETE COLONOSCOPY ON FRIDAY 03/16 OTHERWISE, IF PT NOT WILLING TO RE-PREP AND REMAIN IN HOSPITAL, THEN COULD BE DONE IN 3-4 WEEKS OUTPATIENT. MD NIKI
--- NOTE | 2017-03-14 16:29 | PN ---
Progress Note, Physician Chief Complaint: Events noted Post sigmoidoscopy and polypectomy History of Present Illness: Patient was seen and examined. Sleeping. Chart was reviewed Not in distress - Current Medication List Current Medications: Active Medications Acetaminophen (Tylenol -) 650 mg PO Q6H PRN PRN Reason: FEVER OR PAIN Albuterol/Ipratropium (Duoneb -) 1 amp NEB Q6H PRN PRN Reason: SHORTNESS OF BREATH Atorvastatin Calcium (Lipitor -) 20 mg PO HS [facility] Last Admin: 03/13/17 21:19 Dose: 20 mg Carvedilol (Coreg -) 6.25 mg PO BID [facility] Last Admin: 03/14/17 10:30 Dose: 6.25 mg Cholecalciferol (Vitamin D3 -) 2,000 unit PO DAILY [facility] Last Admin: 03/14/17 10:31 Dose: 2,000 unit Cyanocobalamin (Vitamin B12 -) 1,000 mcg PO DAILY [facility] Last Admin: 03/14/17 10:30 Dose: 1,000 mcg Metronidazole (Flagyl 500mg Premixed Ivpb -) 100 mls @ 100 mls/hr IVPB Q8H-IV [facility] Last Admin: 03/14/17 10:30 Dose: 100 mls/hr Sodium Chloride (Normal Saline -) 1,000 mls @ 60 mls/hr IV ASDIR [facility] Last Admin: 03/14/17 10:31 Dose: 60 mls/hr Losartan Potassium (Cozaar -) 100 mg PO DAILY [facility] Last Admin: 03/14/17 10:31 Dose: 100 mg Ondansetron HCl (Zofran Injection) 4 mg IVPB Q6H PRN PRN Reason: NAUSEA Pantoprazole Sodium (Protonix -) 40 mg PO DAILY [facility] Last Admin: 03/14/17 10:30 Dose: 40 mg Polyethylene Glycol (Miralax (For Daily Use) -) 17 gm PO TID [facility] Last Admin: 03/14/17 14:48 Dose: Not Given Prednisone (Deltasone -) 5 mg PO DAILY [facility] Last Admin: 03/14/17 10:30 Dose: 5 mg Risperidone (Risperdal -) 1 mg PO BID [facility] Last Admin: 03/14/17 10:31 Dose: 1 mg - Objective Vital Signs: Vital Signs Temperature 96.4 F L 03/14/17 14:31 Pulse Rate 81 03/14/17 14:31 Respiratory Rate 20 03/14/17 14:31 Blood Pressure 131/73 03/14/17 14:31 O2 Sat by Pulse Oximetry (%) 99 03/14/17 13:55 Neck: Yes: Supple Cardiovascular: Yes: Regular Rate and Rhythm, S1, S2 Respiratory: Yes: Diminished Gastrointestinal: Yes: Normal Bowel Sounds, Soft. No: Tenderness Edema: No Labs: CBC, BMP 03/14/17 06:40 03/14/17 06:30 Problem List - Problems (1) Diverticulitis large intestine Code(s): K57.32 - DVTRCLI OF LG INT W/O PERFORATION OR ABSCESS W/O BLEEDING Qualifiers: Diverticulitis bleeding: with bleeding Diverticulitis complication: without perforation or abscess Qualified Code(s): K57.33 - Diverticulitis of large intestine without perforation or abscess with bleeding (2) Systolic dysfunction without heart failure Code(s): I51.9 - HEART DISEASE, UNSPECIFIED (3) COPD (chronic obstructive pulmonary disease) Code(s): J44.9 - CHRONIC OBSTRUCTIVE PULMONARY DISEASE, UNSPECIFIED Qualifiers : COPD type: unspecified COPD Qualified Code(s): J44.9 - Chronic obstructive pulmonary disease, unspecified (4) Cardiac pacemaker in situ Code(s): Z95.0 - PRESENCE OF CARDIAC PACEMAKER (5) Diastolic dysfunction without heart failure Code(s): I51.9 - HEART DISEASE, UNSPECIFIED (6) GI bleed Code(s): K92.2 - GASTROINTESTINAL HEMORRHAGE, UNSPECIFIED Qualifiers: GI bleed type/associated pathology: unspecified gastrointestinal hemorrhage type Qualified Code(s): K92.2 - Gastrointestinal hemorrhage, unspecified (7) High-grade atrioventricular block Code(s): I44.39 - OTHER ATRIOVENTRICULAR BLOCK (8) Renal insufficiency Code(s): N28.9 - DISORDER OF KIDNEY AND URETER, UNSPECIFIED (9) ASHD (arteriosclerotic heart disease) Code(s): I25.10 - ATHSCL HEART DISEASE OF [place] CORONARY ARTERY W/O ANG PCTRS (10) Hyperlipidemia Code(s): E78.5 - HYPERLIPIDEMIA, UNSPECIFIED Qualifiers: Hyperlipidemia type: pure hypercholesterolemia Qualified Code(s): E78.00 - Pure hypercholesterolemia, unspecified; E78.0 - Pure hypercholesterolemia (11) Hypertension Code(s): I10 - ESSENTIAL (PRIMARY) HYPERTENSION Qualifiers: Hypertension type: essential hypertension Qualified Code(s): I10 - Essential (primary) hypertension Assessment/Plan 1. Hematochezia and anemia referable to diverticulitis - post GI work up 2. 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 LV systolic dysfunction 5. Advanced AV block post pacemaker implant 6. HTN 7. Hypercholesterolemia 8. DHEERAJ 9. CKD PLAN: 1. Continue Carvedilol 6.25 mg bid, Losartan 100 mg qd and Lipitor 20 mg qhs as hemodynamics tolerate. Resume ASA 81 mg qd once hemostasis achieved and cleared by GI 2. Bronchodilators, O2 and empiric antibiotic course 3. GI input noted post polyp removal and endoclip Further plans are to follow Weston Tillman MD
--- NOTE | 2017-03-14 17:05 | PN ---
Physical Exam: SUBJECTIVE: Patient seen and examined at bedside. Sleepy but arousable. Denies pain. Denies any type of bleeding. Wants to be left alone. Grandson present. OBJECTIVE: Vital Signs Period Temp Pulse Resp BP Sys/Mata Pulse Ox Last 24 Hr 96.4 F-98.5 F 67-86 18-20 131-146/65-75 98-99 GENERAL: The patient is awake, alert, in no acute distress. HEAD: Normal with no signs of trauma. LUNGS: Breath sounds equal, clear to auscultation bilaterally, no wheezes, no crackles, no accessory muscle use. HEART: Regular rate and rhythm, S1, S2 without murmur, rub or gallop. ABDOMEN: Soft, nontender, nondistended, normoactive bowel sounds, no guarding, no rebound EXTREMITIES: 2+ pulses, warm, well-perfused, no edema. NEUROLOGICAL: Cranial nerves II through XII grossly intact. Normal speech, gait not observed. Laboratory Results - last 24 hr 03/14/17 03/14/17 06:30 06:40 WBC 7.8 RBC 3.60 L Hgb 9.9 L Hct 29.6 L MCV 82.4 MCHC 33.3 RDW 17.2 H Plt Count 203 MPV 8.6 Neutrophils % 74.2 Lymphocytes % 13.8 Monocytes % 8.6 Eosinophils % 2.9 Basophils % 0.5 Sodium 140 Potassium 3.5 Chloride 107 Carbon Dioxide 24 Anion Gap 9 BUN 12 Creatinine 1.3 Random Glucose 82 Calcium 7.7 L Phosphorus 1.8 L Magnesium 1.8 Active Medications Generic Name Dose Route Start Last Admin Trade Name Freq PRN Reason Stop Dose Admin Acetaminophen 650 mg 03/08/17 00:52 Tylenol - PO Q6H PRN FEVER OR PAIN Albuterol/Ipratropium 1 amp 03/08/17 00:56 Duoneb - NEB Q6H PRN SHORTNESS OF BREATH Atorvastatin Calcium 20 mg 03/08/17 22:00 03/13/17 21:19 Lipitor - PO 20 mg HS DINESH Administration Carvedilol 6.25 mg 03/08/17 10:00 03/14/17 10:30 Coreg - PO 6.25 mg BID DINESH Administration Cholecalciferol 2,000 unit 03/08/17 10:00 03/14/17 10:31 Vitamin D3 - PO 2,000 unit DAILY DINESH Administration Cyanocobalamin 1,000 mcg 03/08/17 10:00 03/14/17 10:30 Vitamin B12 - PO 1,000 mcg DAILY DINESH Administration Metronidazole 100 mls @ 100 mls/hr 03/08/17 03:15 03/14/17 10:30 Flagyl 500mg Premixed Ivpb - IVPB 100 mls/hr Q8H-IV DINESH Administration Sodium Chloride 1,000 mls @ 60 mls/hr 03/08/17 01:00 03/14/17 10:31 Normal Saline - IV 60 mls/hr ASDIR DINESH Administration Losartan Potassium 100 mg 03/08/17 10:00 03/14/17 10:31 Cozaar - PO 100 mg DAILY DINESH Administration Ondansetron HCl 4 mg 03/08/17 00:52 Zofran Injection IVPB Q6H PRN NAUSEA Pantoprazole Sodium 40 mg 03/08/17 03:16 03/14/17 10:30 Protonix - PO 40 mg DAILY DINESH Administration Polyethylene Glycol 17 gm 03/13/17 22:00 03/14/17 14:48 Miralax (For Daily Use) - PO Not Given TID DINESH Prednisone 5 mg 03/08/17 10:00 03/14/17 10:30 Deltasone - PO 5 mg DAILY DINESH Administration Risperidone 1 mg 03/08/17 10:00 03/14/17 10:31 Risperdal - PO 1 mg BID DINESH Administration Assessment/Plan (1) Diverticulitis large intestine Assessment/Plan: -observe off antibiotics (2) Anemia Assessment/Plan: -s/p sigmoidoscopy 03/13 with bleeding complication; transfused 03/13 1U PRBC, Hgb 9.0-->9.9 (3) COPD (chronic obstructive pulmonary disease) Assessment/Plan: -stable -continue duonebs -continue prednisone (4) GI bleed Assessment/Plan: -plan is for colonoscopy on 03/16 if patient willing to go through prep (5) Renal insufficiency Assessment/Plan: -at baseline (6) Hyperlipidemia Assessment/Plan: -continue lipitor (7) Hypertension Assessment/Plan: -continue coreg -blood pressure controlled Visit type - Emergency Visit Emergency Visit: Yes ED Registration Date: 03/08/17 Care time: The patient presented to the Emergency Department on the above date and was hospitalized for further evaluation of their emergent condition. - New Patient This patient is new to me today: Yes Date on this admission: 03/14/17 - Critical Care Critical Care patient: No
[2017-03-14] MEDS: ATORVASTATIN CA 20 MG TABLET (FP) PO SCH (21:18)
[2017-03-15] MEDS: POLYETHYLENE GLYCOL 3350 119 GM BTL PO SCH ×2 (06:05→13:07)
[2017-03-15] MEDS: SODIUM CHLORIDE 1,000 ML IV SCH (06:08)
[2017-03-15 07:07] VITALS: TEMP 98.3
[2017-03-15] MEDS: CARVEDILOL 6.25 MG TABLET (FP) PO SCH (10:16)
[2017-03-15] MEDS: CYANOCOBALAMIN 1,000 MCG TABLET (FP) PO SCH (10:16)
[2017-03-15] MEDS: predniSONE 5 MG TABLET (UD) PO SCH (10:16)
[2017-03-15] MEDS: PANTOPRAZOLE 40 MG TABLET (FP) PO SCH (10:16)
[2017-03-15] MEDS: CHOLECALCIFEROL (VITAMIN D3) 1,000 UNIT TABLET (FP) PO SCH (10:16)
[2017-03-15] MEDS: LOSARTAN POTASSIUM 50 MG TABLET (FP) PO SCH (10:16)
[2017-03-15] MEDS: risperiDONE 1 MG TABLET (FP) PO SCH (10:16)
--- NOTE | 2017-03-15 11:35 | DS ---
Physical Exam: SUBJECTIVE: Patient seen and examined OBJECTIVE: Vital Signs Period Temp Pulse Resp BP Sys/Mata Pulse Ox Last 24 Hr 96.4 F-98.3 F 73-86 20-20 131-142/64-75 96-99 PHYSICAL EXAM GENERAL: The patient is awake, alert, and fully oriented, in no acute distress. HEAD: Normal with no signs of trauma. EYES: PERRL, extraocular movements intact, sclera anicteric, conjunctiva clear. ENT: Ears normal, nares patent, oropharynx clear without exudates, moist mucous membranes. NECK: Trachea midline, full range of motion, supple. LUNGS: Breath sounds equal, clear to auscultation bilaterally, no wheezes, no crackles, no accessory muscle use. HEART: Regular rate and rhythm, S1, S2 without murmur, rub or gallop. ABDOMEN: Soft, nontender, nondistended, normoactive bowel sounds, no guarding, no rebound, no hepatosplenomegaly, no masses. EXTREMITIES: 2+ pulses, warm, well-perfused, no edema. NEUROLOGICAL: Cranial nerves II through XII grossly intact. Normal speech, gait not observed. PSYCH: Normal mood, normal affect. SKIN: Warm, dry, normal turgor, no rashes or lesions noted. LABS Laboratory Results - last 24 hr 03/14/17 17:47 POC Glucometer 109 HOSPITAL COURSE: Date of Admission:03/08/17 Date of Discharge: 03/15/17 Minutes to complete discharge: 35 Discharge Summary Reason For Visit: DIVERTICULITIS LARGE INTESTINE Current Active Problems Diverticulitis large intestine (Acute) Systolic dysfunction without heart failure (Acute) Condition: Stable - Instructions Diet, Activity, Other Instructions: It is very important you see Dr. Carrillo and return to the hospital within a few weeks for a colonoscopy. Call Dr. Carrillo's office on Thursday morning to make an appointment. Return to the emergency department for any new or worsening symptoms. Referrals: Parish Carrillo MD [Staff Physician] - Disposition: HOME - Home Medications Comprehensive Discharge Medication List: Ambulatory Orders Atorvastatin Ca [Lipitor] 20 mg PO HS 12/03/12 Budesonide [Pulmicort 0.5 mg Nebulizer -] 1 neb NEB HS 12/03/12 Multivit-Min/FA/Lycopene/Lut [Centrum Silver Tablet] 1 each PO DAILY 12/03/12 Tiotropium [place] [Spiriva] 1 inh IH HS 12/03/12 Cyanocobalamin (Vitamin B-12) [Cyanocobalamin] 1,000 mcg PO DAILY 06/27/14 Losartan Potassium [Cozaar -] 100 mg PO DAILY #0 tablet 12/03/14 Cholecalciferol (Vitamin D3) [Vitamin D3 -] 2,000 unit PO DAILY 03/01/15 Prednisone [Deltasone -] 5 mg PO DAILY 11/23/16 Risperidone [Risperdal] 1 mg PO BID 11/23/16 Carvedilol [Coreg -] 6.25 mg PO BID #60 tablet 11/28/16 Pantoprazole Sodium [Protonix -] 40 mg PO BID #60 11/28/16 Albuterol Sulfate Inhaler - [Ventolin HFA Inhaler -] 1 - 2 inh PO QID PRN - Discharge Referral Referred to [facility] No
[2017-03-15 12:35] VITALS: BP 143/67; PULSE 70
--- NOTE | 2017-03-16 11:22 | PATH ---
Surgical Pathology Report Patient Name: ANTIONE NIX Med. Rec. #: [id number] /Age/Gender: 1935 (Age: 82) / M Account: [id number] [facility]: [facility] MED/SURG Taken: 03/13/2017 Received: 03/13/2017 Reported: 03/16/2017 Physicians: Parish Carrillo M.D. Specimen(s) Received A: RECTAL POLYP B: SIGMOID POLYP Clinical History Rectal bleeding, anemia Polyps, diverticulosis Final Diagnosis A. COLON, RECTUM, BIOPSY: COLONIC MUCOSA WITH NO PATHOLOGIC CHANGES. B. 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 NO INVASIVE CARCINOMA IDENTIFIED. STALK MARGIN FREE OF ADENOMATOUS CHANGES. Electronically Signed Dre Kitchen M.D. Gross Description A. Received in formalin, labeled "rectal polyp" are 2 lucia, irregular portions of soft tissue measuring 0.5 and 0.6 cm. in greatest dimension. The specimens are submitted in toto in one cassette. B. Received in formalin labeled "sigmoid polyp," is a 1.8 x 0.9 x 0.7 cm pink-lucia, polypoid portion of soft tissue. The base is inked green and the specimen is bisected. The specimen is submitted in toto in one cassette. 03/13/2017 [facility]03/13/2017
== END 2017-03-15 13:50 | disposition home or self-care (01) | DRG 378 ==
LOC: JER 20:51 → JERBED 03-08 01:27 → UNDOADMIN 03-08 01:33 → JERBED 03-08 01:33 → J8W 03-09 19:13
PROVIDERS: ADMIT Internal Medicine Geriatric Medicine; ATTEND Internal Medicine
PROC: 0DBQ8ZX Excision of Anus, Via Natural or Artificial Opening Endoscopic, Diagnostic (ICD-10-PCS; 2017-03-13)
PROC: 0DBN8ZX Excision of Sigmoid Colon, Via Natural or Artificial Opening Endoscopic, Diagnostic (ICD-10-PCS; 2017-03-13)
PROC: 3E0H8GC Introduction of Other Therapeutic Substance into Lower GI, Via Natural or Artificial Opening Endoscopic (ICD-10-PCS; 2017-03-13)
PROC: 0DJD8ZZ Inspection of Lower Intestinal Tract, Via Natural or Artificial Opening Endoscopic (ICD-10-PCS; 2017-03-13)
PROC: 30233N1 Transfusion of Nonautologous Red Blood Cells into Peripheral Vein, Percutaneous Approach (ICD-10-PCS; 2017-03-13)
PROC: 0DBP8ZX Excision of Rectum, Via Natural or Artificial Opening Endoscopic, Diagnostic (ICD-10-PCS; principal; 2017-03-13 08:00)
DX: K92.2 Gastrointestinal hemorrhage, unspecified (principal); K57.32 Diverticulitis of large intestine without perforation or abscess without bleeding; I25.110 Atherosclerotic heart disease of native coronary artery with unstable angina pectoris; B44.1 Other pulmonary aspergillosis; I13.0 Hypertensive heart and chronic kidney disease with heart failure and stage 1 through stage 4 chronic kidney disease, or unspecified chronic kidney disease; D62 Acute posthemorrhagic anemia; E78.5 Hyperlipidemia, unspecified; I65.21 Occlusion and stenosis of right carotid artery; Z95.0 Presence of cardiac pacemaker; J44.9 Chronic obstructive pulmonary disease, unspecified; Z99.81 Dependence on supplemental oxygen; R91.8 Other nonspecific abnormal finding of lung field; K21.9 Gastro-esophageal reflux disease without esophagitis; K40.90 Unilateral inguinal hernia, without obstruction or gangrene, not specified as recurrent; K63.5 Polyp of colon; N40.0 Benign prostatic hyperplasia without lower urinary tract symptoms; N31.9 Neuromuscular dysfunction of bladder, unspecified; E53.8 Deficiency of other specified B group vitamins; M54.5 Low back pain; M19.90 Unspecified osteoarthritis, unspecified site; M72.0 Palmar fascial fibromatosis [Dupuytren]; H91.8X3 Other specified hearing loss, bilateral; E11.9 Type 2 diabetes mellitus without complications; D64.9 Anemia, unspecified; E66.9 Obesity, unspecified; Z68.28 Body mass index [BMI] 28.0-28.9, adult; I44.39 Other atrioventricular block; G47.33 Obstructive sleep apnea (adult) (pediatric); N18.9 Chronic kidney disease, unspecified; I50.9 Heart failure, unspecified; K64.4 Residual hemorrhoidal skin tags; K62.1 Rectal polyp; K62.0 Anal polyp; Z87.891 Personal history of nicotine dependence; Z79.52 Long term (current) use of systemic steroids
CPT/HCPCS: 36415; 36430; 71010-TC; 74176-TC; 80048; 80053; 81003; 81015; 82150; 82272; 83690; 83735; 84100; 85025; 85610; 85651; 86850; 86900; 86901; 86922; 87040; 87086; 88305-TC; 93005; 93010; 99285-25; J2794; P9038; P9058

== ENCOUNTER 2017-11-06 14:51 | Inpatient (IN) | payer OTHER, BC ==
--- NOTE | 2017-11-06 15:21 | PDOC ---
History of Present Illness - General History Source: Patient, Family ( via phone) Exam Limitations: Other (Pt unable to give hx for unclear reasons) - History of Present Illness Timing/Duration: reports: other (this am) <Jamar Durant - Last Filed: 11/11/17 14:04> <Lolly Davila - Last Filed: 11/14/17 19:01> - General Chief Complaint: Urinary Problem Stated Complaint: URINARY PROBLEMS Time Seen by Provider: 11/06/17 15:13 Past History - Past Medical History Anemia: No Asthma: (EMPHYSEMA-NASAL 2L) Cancer: No Cardiac Disorders: Yes ("HEART DISEASE") CVA: No COPD: Yes (2-3L NC) CHF: Yes Dementia: No Diabetes: No GI Disorders: Yes (ACID REFLUX) Disorders: No HTN: Yes Hypercholesterolemia: Yes Liver Disease: No Seizures: No Thyroid Disease: No - Surgical History Abdominal Surgery: No Appendectomy: No Cardiac Surgery: Yes (PPM) Cholecystectomy: Yes Lung Surgery: No Neurologic Surgery: No Orthopedic Surgery: No - Immunization History Td Vaccination: No TDAP Vaccination: No Immunization Up to Date: No - Suicide/Smoking/Psychosocial Hx Smoking History: Former smoker Have you smoked in the past 12 months: No If you are a former smoker, when did you quit?: 10YRS AGO 'Breaking Loose' booklet given: 03/06/17 Hx Alcohol Use: No Drug/Substance Use Hx: No Substance Use Type: None Hx Substance Use Treatment: No <Jamar Durant - Last Filed: 11/11/17 14:04> <Lolly Davila - Last Filed: 11/14/17 19:01> - Past Medical History Allergies/Adverse Reactions: Allergies Allergy/AdvReac Type Severity Reaction Status Date / Time Iodinated Contrast- Oral and Allergy Rash Verified 03/07/17 21:12 IV Dye [Iodinated Contrast Media - IV Dye] levofloxacin [From Levaquin] Allergy "RASH" Verified 03/07/17 21:12 Home Medications: Ambulatory Orders Atorvastatin Ca [Lipitor] 20 mg PO HS 12/03/12 Budesonide [Pulmicort 0.5 mg Nebulizer -] 1 neb NEB HS 12/03/12 Multivit-Min/FA/Lycopene/Lut [Centrum Silver Tablet] 1 each PO DAILY 12/03/12 Tiotropium [place] [Spiriva] 1 inh IH HS 12/03/12 Cyanocobalamin (Vitamin B-12) [Cyanocobalamin] 1,000 mcg PO DAILY 06/27/14 Losartan Potassium [Cozaar -] 100 mg PO DAILY #0 tablet 12/03/14 Cholecalciferol (Vitamin D3) [Vitamin D3 -] 2,000 unit PO DAILY 03/01/15 Risperidone [Risperdal] 1 mg PO BID 11/23/16 predniSONE [Deltasone -] 5 mg PO DAILY 11/23/16 Carvedilol [Coreg -] 6.25 mg PO BID #60 tablet 11/28/16 Pantoprazole Sodium [Protonix -] 40 mg PO BID #60 11/28/16 Albuterol Sulfate Inhaler - [Ventolin HFA Inhaler -] 1 - 2 inh PO QID PRN Aspirin Coated [Ecotrin -] 81 mg PO DAILY tablet.ec 11/14/17 Furosemide [Lasix -] 20 mg PO DAILY #7 tablet 11/14/17 Review of Systems - Review of Systems Able to Perform ROS?: Yes Comments:: 11/06/17 15:30 Constitutional: No: Fever Respiratory: No: Cough, Shortness of Breath Cardiac (ROS): No: Chest Pain ABD/GI: No: Nausea, Vomiting : No: Flank Pain, Hematuria <Jamar Durant - Last Filed: 11/11/17 14:04> *Physical Exam - Physical Exam General Appearance: Yes: Appropriately Dressed. No: Apparent Distress Respiratory/Chest: positive: Lungs Clear, Normal Breath Sounds. negative: Respiratory Distress Cardiovascular: positive: Regular Rate, S1, S2 Gastrointestinal/Abdominal: positive: Soft. negative: Tender Musculoskeletal: negative: CVA Tenderness Integumentary: positive: Dry, Warm Neurologic: positive: Alert, Normal Mood/Affect <Jamar Durant - Last Filed: 11/11/17 14:04> - Vital Signs Last Vital Signs Temp Pulse Resp BP Pulse Ox 98 F 77 20 112/56 95 11/14/17 14:02 11/14/17 14:02 11/14/17 14:02 11/14/17 14:02 11/14/17 09:00 <Lolly Davila - Last Filed: 11/14/17 19:01> ED Treatment Course - LABORATORY CBC & Chemistry Diagram: 11/11/17 06:00 11/11/17 06:00 <Jamar Durant - Last Filed: 11/11/17 14:04> - LABORATORY CBC & Chemistry Diagram: 11/14/17 07:00 11/14/17 07:00 - ADDITIONAL ORDERS Additional order review: 11/06/17 15:15 Urine Culture - Final Urine - Urine Gil NO GROWTH OBTAINED 11/10/17 11/09/17 11/08/17 06:00 09:44 06:25 RBC 3.50 L 3.12 L 3.03 L MCV 83.6 83.5 83.1 MCHC 32.7 32.2 32.6 RDW 17.7 H 18.0 H 18.0 H MPV 8.9 8.5 8.7 Neutrophils % 82.3 70.2 70.7 Lymphocytes % 9.2 D 12.6 13.0 Monocytes % 6.7 9.2 10.3 H Eosinophils % 1.1 D 7.0 H 5.1 H Basophils % 0.7 1.0 0.9 11/07/17 11/06/17 06:04 15:15 RBC 3.06 L D 3.90 L MCV 83.5 84.3 MCHC 32.7 32.1 RDW 18.0 H 18.8 H MPV 8.5 9.0 Neutrophils % 70.3 76.5 Lymphocytes % 13.2 D 9.3 D Monocytes % 9.0 7.0 Eosinophils % 6.7 H 6.7 H D Basophils % 0.8 0.5 - Medications Given in the ED: ED Medications Discontinued Medications Generic Name Dose Route Start Last Admin Trade Name Freq PRN Reason Stop Dose Admin Aspirin 81 mg 11/14/17 10:00 11/14/17 10:59 Ecotrin - PO 81 mg DAILY DINESH Administration Atorvastatin Calcium 20 mg 11/06/17 22:00 11/13/17 21:14 Lipitor - PO 20 mg HS DINESH Administration Budesonide 1 amp 11/06/17 22:00 11/13/17 22:05 Pulmicort 0.5 Mg Nebulizer - NEB 1 amp HS DINESH Administration Carvedilol 6.25 mg 11/06/17 22:00 11/14/17 10:59 Coreg - PO 6.25 mg BID DINESH Administration Cholecalciferol 2,000 unit 11/07/17 10:00 11/14/17 10:59 Vitamin D3 - PO 2,000 unit DAILY DINESH Administration Cyanocobalamin 1,000 mcg 11/07/17 10:00 11/14/17 10:59 Vitamin B12 - PO 1,000 mcg DAILY DINESH Administration Furosemide 20 mg 11/09/17 23:57 11/10/17 00:35 Lasix Injection - IVPUSH 11/09/17 23:58 20 mg ONCE ONE Administration Furosemide 40 mg 11/10/17 14:45 11/14/17 10:59 Lasix Injection - IVPUSH 40 mg DAILY DINESH Administration CEFTRIAXONE 1 G/50 ML PREMIX 50 mls @ 100 mls/hr 11/06/17 21:15 11/12/17 10: 01 Ceftriaxone 1 Gm-D5w Bag IVPB 100 mls/hr DAILY DINESH Administration Sodium Chloride 1,000 mls @ 75 mls/hr 11/06/17 21:15 11/08/17 05:23 Normal Saline - IV 75 mls/hr ASDIR DINESH Administration Sodium Chloride 1,000 mls @ 100 mls/hr 11/08/17 13:30 11/09/17 18:18 Normal Saline - IV 100 mls/hr ASDIR DINESH Administration Azithromycin 500 mg/ Dextrose 250 mls @ 250 mls/hr 11/10/17 12:00 11/10/17 12 :24 IVPB 11/10/17 12:59 250 mls/hr ONCE ONE Administration Azithromycin 250 mg/ Dextrose 250 mls @ 250 mls/hr 11/11/17 10:00 11/12/17 10 :01 IVPB 250 mls/hr DAILY DINESH Administration Magnesium Sulfate 2 gm 11/07/17 02:47 11/07/17 02:47 Magnesium Sulfate IVPB 11/07/17 02:48 2 gm NOW ONE Administration Multivitamins/Minerals 1 each 11/07/17 10:00 11/14/17 10:59 Theragran-M PO 1 each DAILY DINESH Administration Pantoprazole Sodium 40 mg 11/06/17 22:00 11/14/17 10:59 Protonix - PO 11/20/17 21:59 40 mg BID DINESH Administration Potassium Chloride 40 meq 11/12/17 12:30 11/12/17 12:45 K-Dur - PO 11/12/17 12:31 40 meq ONCE ONE Administration Potassium Chloride 10 meq 11/12/17 13:00 11/12/17 12:52 K-Dur - PO 11/12/17 13:01 10 meq ONCE ONE Administration Prednisone 5 mg 11/07/17 10:00 11/14/17 10:59 Deltasone - PO 5 mg DAILY DINESH Administration Risperidone 1 mg 11/06/17 22:00 11/14/17 10:59 Risperdal - PO 1 mg BID DINESH Administration Tamsulosin HCl 0.8 mg 11/06/17 21:09 11/06/17 22:47 Flomax - PO 11/06/17 21:10 0.8 mg ONCE ONE Administration Tamsulosin HCl 0.8 mg 11/09/17 23:56 11/10/17 00:35 Flomax - PO 11/09/17 23:57 0.8 mg ONCE ONE Administration Tiotropium [place] 1 puff 11/06/17 22:00 11/13/17 21:15 Spiriva - IH 1 inh HS DINESH Administration <Lolly Davila - Last Filed: 11/14/17 19:01> Medical Decision Making - Medical Decision Making 11/06/17 15:19 82-year-old male history of HTN, HLD, DM, CAD, CHF, COPD on oxygen, CKD, BPH, here w/ urinary retention. History difficult to obtain from patient as patient is hard of hearing. I contacted patient's over the phone who states she called EMS after patient reported being unable to urinate since this a.m. No reports of hematuria, fever, vomiting or abdominal pain. Per , patient has never had a Gil placed. Did see Dr. Valle in 2013 for hematuria. No longer on Flomax see exam Urinary retention H/o BPH -gil placement -labs/ua r/o uti 11/06/17 16:42 Gil w/ ~1L of UO, no discoloration or gross blood. CBC unremarkable. UA w/ bld and + LE, no nit. Chem pending. Will discuss dispo w/ PMD (Dr Rocha) 11/06/17 17:[address] Beltran at this time <Jamar Durant - Last Filed: 11/11/17 14:04> *DC/Admit/Observation/Transfer <Jamar Durant - Last Filed: 11/11/17 14:04> - Attestations Physician Attestion: I reviewed the case with the mid-level practitioner and agree with the mid- level practitioner's assessment, diagnosis and disposition. <Lolly Davila - Last Filed: 11/14/17 19:01> Diagnosis at time of Disposition: Renal insufficiency, Urinary retention - Discharge Dispostion Disposition: [facility] Condition at time of disposition: Stable
[2017-11-06 15:52] VITALS: BMI 25.0
[2017-11-06 16:12] LABS: BASO % 0.5 % (0-2.0); EOS % 6.7 % (0-4.5); HEMATOCRIT 32.9 % (35.4-49); HEMOGLOBIN 10.6 GM/dL (11.7-16.9); LYMPH % 9.3 % (8-40); MCH 27.1 pg (25.7-33.7); MCHC 32.1 g/dl (32.0-35.9); MEAN CELL VOLUME 84.3 fl (80-96); NEUT % 76.5 % (42.8-82.8); PLATELET COUNT 199 K/MM3 (134-434); RDW 18.8 % (11.9-15.9); WHITE BLOOD COUNT 9.4 K/mm3 (4.0-10.0)
[2017-11-06 16:13] LABS: URINE APPEARANCE CLEAR; URINE BILIRUBIN NEGATIVE (NEGATIVE); URINE BLOOD 1+ (NEGATIVE); URINE COLOR STRAW; URINE GLUCOSE (UA) NEGATIVE (NEGATIVE); URINE KETONE NEGATIVE (NEGATIVE); URINE LEUK ESTERASE 1+ (NEGATIVE); URINE NITRITE NEGATIVE (NEGATIVE); URINE PROTEIN NEGATIVE (NEGATIVE); URINE UROBILINOGEN NEGATIVE mg/dL (0.2-1.0)
[2017-11-06 16:15] LABS: EPI CELLS RARE /HPF (FEW); URINE MUCUS RARE; YEAST RARE
[2017-11-06 20:26] LABS: ALBUMIN 3.3 g/dl (3.4-5.0); ANION GAP 8 (8-16); BILIRUBIN,TOTAL 0.6 mg/dL (0.2-1.0); BLOOD UREA NITROGEN 37 mg/dL (7-18); CALCIUM 8.7 mg/dL (8.5-10.1); CHLORIDE 105 mmol/L (98-107); CO2 25 mmol/L (21-32); CREATININE 2.1 mg/dL (0.7-1.3); GLUCOSE,RANDOM 100 mg/dL (74-106); POTASSIUM 4.6 mmol/L (3.5-5.1); SGOT/AST 5 U/L (15-37); SGPT/ALT 10 U/L (12-78); SODIUM 138 mmol/L (136-145); TOT PROT 6.7 g/dl (6.4-8.2)
[2017-11-06 20:27] LABS: ALK PHOS 83 U/L (45-117)
--- NOTE | 2017-11-06 21:04 | PDOC ---
*Physical Exam - Vital Signs Last Vital Signs Temp Pulse Resp BP Pulse Ox 98.4 F 109 H 18 157/97 96 11/06/17 15:00 11/06/17 15:00 11/06/17 15:00 11/06/17 15:00 11/06/17 17:28 - Physical Exam Comments: 11/06/17 21:30 General Appearance: Nourished. No Apparent Distress HEENT: EOMI, FRANCISCO. No Pharyngeal Erythema, Tonsillar Exudate, Tonsillar Erythema Neck: No Cervical Lymphadenopathy Respiratory/Chest: Lungs Clear, Normal Breath Sounds. No Crackles, Rales, Rhonchi, Wheezing Cardiovascular: Regular Rhythm, Regular Rate. No Murmur, Gallops, Rubs Gastrointestinal/Abdominal: Normal Bowel Sounds, Soft. No Guarding, Rebound, Tenderness Musculoskeletal: No CVA Tenderness Extremity: Normal Capillary Refill Integumentary: Normal Color, Dry, Warm Neurologic: Fully Oriented, Alert, Normal Mood/Affect, Normal Response, ED Treatment Course - LABORATORY CBC & Chemistry Diagram: 11/06/17 15:15 11/06/17 19:36 - ADDITIONAL ORDERS Additional order review: Laboratory Results 11/06/17 11/06/17 11/06/17 19:36 15:15 15:15 Sodium 138 Cancelled Potassium 4.6 D Cancelled Chloride 105 Cancelled Carbon Dioxide 25 Cancelled Anion Gap 8 Cancelled BUN 37 H D Cancelled Creatinine 2.1 H D Cancelled Creat Clearance w eGFR 30.31 Cancelled Random Glucose 100 D Cancelled Calcium 8.7 Cancelled Total Bilirubin 0.6 Cancelled AST 5 L D Cancelled ALT 10 L D Cancelled Alkaline Phosphatase 83 D Cancelled Total Protein 6.7 Cancelled Albumin 3.3 L Cancelled Urine Color Straw Urine Appearance Clear Urine pH 5.0 Ur Specific [place] 1.009 Urine Protein Negative Urine Glucose (UA) Negative Urine Ketones Negative Urine Blood 1+ H Urine Nitrite Negative Urine Bilirubin Negative Urine Urobilinogen Negative Ur Leukocyte Esterase 1+ H Urine WBC (Auto) 25 Urine RBC (Auto) 2 Ur Epithelial Cells Rare Urine Mucus Rare Urine Yeast Rare 11/06/17 15:15 RBC 3.90 L MCV 84.3 MCHC 32.1 RDW 18.8 H MPV 9.0 Neutrophils % 76.5 Lymphocytes % 9.3 D Monocytes % 7.0 Eosinophils % 6.7 H D Basophils % 0.5 Progress Note - Progress Note Progress Note: The patient is an 82 year old male with a history of HTN, HLD, BPH who presents for evaluation of urinary retention. The patient had a gil placed with 1 L of urine drained. The patient has never required a gil in the past. Dispo is pending CMP. Medical Decision Making - Medical Decision Making 11/06/17 21:31 CMP demonstrates and elevated creatinine to 2.1 which is elevated from 1.3. Given the patient's elevated creatinine and new requirement of gil catheter, we believe he requires observation admission for urology evaluation with Dr. Valle. We discussed the case with the admitting team who accepted the patient for admission. *DC/Admit/Observation/Transfer Diagnosis at time of Disposition: Renal insufficiency, Urinary retention - Discharge Dispostion Condition at time of disposition: Stable Admit: Yes - Referrals - Patient Instructions - Post Discharge Activity
[2017-11-06] MEDS ORDERED: ALBUTEROL SO4 18 GM HFA INHALER IH PRN (21:05)
[2017-11-06] MEDS ORDERED: TAMSULOSIN HCL 0.4 MG CAP.ER.24H (FP) PO ONE (21:09)
[2017-11-06] MEDS ORDERED: ATORVASTATIN CA 40 MG TABLET (FP) ONE (21:19)
[2017-11-06] MEDS ORDERED: PANTOPRAZOLE 40 MG TABLET (FP) ONE (21:19)
[2017-11-06] MEDS ORDERED: CARVEDILOL 3.125 MG TABLET (FP) ONE (21:19)
[2017-11-06] MEDS ORDERED: CEFTRIAXONE 1 GM/50 ML BAG ONE (21:20)
[2017-11-06] MEDS ORDERED: TAMSULOSIN HCL 0.4 MG CAP.ER.24H (FP) ONE (21:20)
[2017-11-06] MEDS ORDERED: risperiDONE 0.5 MG TABLET (FP) ONE (21:20)
[2017-11-06] MEDS: ATORVASTATIN CA 20 MG TABLET (FP) PO SCH (22:47)
[2017-11-06] MEDS: SODIUM CHLORIDE 1,000 ML IV SCH (22:47)
[2017-11-06] MEDS: PANTOPRAZOLE 40 MG TABLET (FP) PO SCH (22:47)
[2017-11-06] MEDS: CEFTRIAXONE 1 G/50 ML PREMIX 50 ML IVPB SCH (22:47)
[2017-11-06] MEDS: CARVEDILOL 6.25 MG TABLET (FP) PO SCH (22:47)
[2017-11-06] MEDS: risperiDONE 1 MG TABLET (FP) PO SCH (22:48)
[2017-11-06] MEDS: TIOTROPIUM BROMIDE 18 MCG/INH (DEVICE W/ 5 CAPSULES) IH SCH (23:19)
[2017-11-06] MEDS: BUDESONIDE 0.5 MG/2 ML INH SUSP VIAL NEB SCH (23:19)
[2017-11-07] MEDS ORDERED: MAGNESIUM SULF 50% (8.12 MEQ/2 ML-1 GM VIAL) ONE (02:42)
[2017-11-07] MEDS ORDERED: MAGNESIUM SULF 50% (8.12 MEQ/2 ML-1 GM VIAL) IVPB ONE (02:47)
[2017-11-07 07:06] LABS: BASO % 0.8 % (0-2.0); EOS % 6.7 % (0-4.5); HEMATOCRIT 25.6 % (35.4-49); HEMOGLOBIN 8.4 GM/dL (11.7-16.9); LYMPH % 13.2 % (8-40); MCH 27.3 pg (25.7-33.7); MCHC 32.7 g/dl (32.0-35.9); MEAN CELL VOLUME 83.5 fl (80-96); MEAN PLT VOLUME 8.5 fl (7.5-11.1); NEUT % 70.3 % (42.8-82.8); PLATELET COUNT 162 K/MM3 (134-434); RBC 3.06 M/mm3 (4.00-5.60)
[2017-11-07 07:20] LABS: ANION GAP 8 (8-16); BLOOD UREA NITROGEN 30 mg/dL (7-18); CALCIUM 7.6 mg/dL (8.5-10.1); CHLORIDE 113 mmol/L (98-107); CO2 24 mmol/L (21-32); CREATININE 1.6 mg/dL (0.7-1.3); GLUCOSE,RANDOM 83 mg/dL (74-106); POTASSIUM 4.2 mmol/L (3.5-5.1); SODIUM 145 mmol/L (136-145)
[2017-11-07] MEDS ORDERED: CEFTRIAXONE 1 GM/50 ML BAG ONE (09:08)
[2017-11-07] MEDS: CHOLECALCIFEROL (VITAMIN D3) 1,000 UNIT TABLET (FP) PO SCH (10:03)
[2017-11-07] MEDS: CARVEDILOL 6.25 MG TABLET (FP) PO SCH ×2 (10:03→21:25)
[2017-11-07] MEDS: PANTOPRAZOLE 40 MG TABLET (FP) PO SCH ×2 (10:03→21:27)
[2017-11-07] MEDS: CYANOCOBALAMIN 1,000 MCG TABLET (FP) PO SCH (10:03)
[2017-11-07] MEDS: predniSONE 5 MG TABLET (UD) PO SCH (10:03)
[2017-11-07] MEDS: CEFTRIAXONE 1 G/50 ML PREMIX 50 ML IVPB SCH (10:03)
[2017-11-07] MEDS: risperiDONE 1 MG TABLET (FP) PO SCH ×2 (10:03→22:15)
[2017-11-07] MEDS: MULTIVITAMINS THER W-MINERALS COMBO TABLET (FP) PO SCH (10:03)
--- NOTE | 2017-11-07 11:33 | HP ---
Admitting History and Physical - Primary Care Physician PCP: George Rocha - Admission Chief Complaint: Urinary retention History of Present Illness: 82 yrs old man multiple medical co-morbidies, Including CAD, dHF, HTN, Hyperlipdemia,Right external carotid artery stenosis, tachycardia s/p PPM COPD , O2 Dependent, Diverticulitis (as per today's CT), Diverticulosis, GERD,, CKD , BPH, Hematuria present to Ed with c/o urinary retention, in the Ed patient voided 1000 ml after insertion of cathter admuitted for further management, patient denies any fever, chills, dysuria, chest pain or SOB I - Past Medical History [employer]: Yes: Other (decreased hearing) Cardiovascular: Yes: CAD, CHF, HTN, Hyperlipdemia, Other (Right external carotid artery stenosis, tachycardia PPM) Pulmonary: Yes: COPD, O2 Dependent, Other (pulmonary nodules h/o invasive Aspergillosis) Gastrointestinal: Yes: Diverticulitis (as per today's CT), Diverticulosis, GERD , Other (left inguinal hernia, duodinitis, colon polyps) Renal/: Yes: Renal Inusuff, BPH, Hematuria, Other (bladder dysfunction) Heme/Onc: Yes: B12 Deficiency Infectious Disease: Yes: Other (h/o invasive pulmonary aspergillosis) Musculoskeletal: Yes: Chronic low back pain, Osteoarthritis, Other (dupuytren contracture) ENT: Yes: Other (MECHOOPDA) Endocrine: Yes: Diabetes Mellitus - Past Surgical History Past Surgical History: Yes: Cholecystectomy (open), Permanent Pacemaker - Smoking History Smoking history: Former smoker Have you smoked in the past 12 months: No If you are a former smoker, when did you quit?: 10YRS AGO - Alcohol/Substance Use Hx Alcohol Use: No History of Substance Use: reports: None - Social History ADL: Family Assistance Occupation: , 4 children History of Recent Travel: No Home Medications - Allergies Allergies/Adverse Reactions: Allergies Allergy/AdvReac Type Severity Reaction Status Date / Time Iodinated Contrast- Oral and Allergy Rash Verified 03/07/17 21:12 IV Dye [Iodinated Contrast Media - IV Dye] levofloxacin [From Levaquin] Allergy "RASH" Verified 03/07/17 21:12 - Home Medications Home Medications: Ambulatory Orders Atorvastatin Ca [Lipitor] 20 mg PO HS 12/03/12 Budesonide [Pulmicort 0.5 mg Nebulizer -] 1 neb NEB HS 12/03/12 Multivit-Min/FA/Lycopene/Lut [Centrum Silver Tablet] 1 each PO DAILY 12/03/12 Tiotropium [place] [Spiriva] 1 inh IH HS 12/03/12 Cyanocobalamin (Vitamin B-12) [Cyanocobalamin] 1,000 mcg PO DAILY 06/27/14 Losartan Potassium [Cozaar -] 100 mg PO DAILY #0 tablet 12/03/14 Cholecalciferol (Vitamin D3) [Vitamin D3 -] 2,000 unit PO DAILY 03/01/15 Risperidone [Risperdal] 1 mg PO BID 11/23/16 predniSONE [Deltasone -] 5 mg PO DAILY 11/23/16 Carvedilol [Coreg -] 6.25 mg PO BID #60 tablet 11/28/16 Pantoprazole Sodium [Protonix -] 40 mg PO BID #60 11/28/16 Albuterol Sulfate Inhaler - [Ventolin HFA Inhaler -] 1 - 2 inh PO QID PRN Family Disease History - Family Disease History Family History: Unremarkable Family Disease History: Other: Father ( 71 ? colon cancer), Mother ( 62 : "enlarged heart"), Sister (: CVA and [place]), Daughter (CVA) Review of Systems - Review of Systems Constitutional: denies: Chills, Diaphoresis, Fever HENT: denies: Difficult Swallowing Neck: denies: Decreased ROM Cardiovascular: denies: Chest Pain, Edema Respiratory: denies: Cough, Exercise Intolerance Gastrointestinal: denies: Abdominal Pain, Bloating Genitourinary: denies: Burning, Discharge Musculoskeletal: denies: Back Pain, Crepitus Integumentary: denies: Blister, Bruising Neurological: denies: Change in LOC, Change in Speech Endocrine: denies: Excessive Sweating, Flushing, Increased Hunger Physical Examination Vital Signs: Vital Signs Temperature 98.7 F 11/07/17 05:47 Pulse Rate 80 11/07/17 09:47 Respiratory Rate 19 11/07/17 05:47 Blood Pressure 138/74 11/07/17 09:47 O2 Sat by Pulse Oximetry (%) 100 11/07/17 09:47 Elderly man not in acute distress HEENT: Mm moist, nO anemia NECK: No JVD No Bruit CHEST: CTa B/L CVS: S1S2 R ABD: No distention, non tender EXT: Trace edema feett [employer]: AOx3 non focal Labs: CBC, BMP 11/07/17 06:04 11/07/17 06:04 Imaging - Results Chest X-ray: Report Reviewed (s/pPPM) Problem List - Problems (1) Urinary retention Assessment/Plan: S/P Foleys Cathter will F/U recommendations Code(s): R33.9 - RETENTION OF URINE, UNSPECIFIED (2) COPD (chronic obstructive pulmonary disease) Assessment/Plan: On Home O2 at present saturating well cont all home meds Code(s): J44.9 - CHRONIC OBSTRUCTIVE PULMONARY DISEASE, UNSPECIFIED Qualifiers: COPD type: unspecified COPD Qualified Code(s): J44.9 - Chronic obstructive pulmonary disease, unspecified (3) Renal insufficiency Assessment/Plan: Base line CKD stage 3 BUN 10 Creat 1.4 present with worsening functions due to obstructive uropathy F/U recommendation, Renal ultrasound and Code(s): N28.9 - DISORDER OF KIDNEY AND URETER, UNSPECIFIED (4) Anemia Assessment/Plan: Chronic H/H stable Code(s): D64.9 - ANEMIA, UNSPECIFIED Qualifiers: Iron deficiency anemia type: chronic blood loss (5) Obstructive uropathy Assessment/Plan: Due to BPH S/P Foleys Cather on [place] max F/U reclamations Code(s): N13.9 - OBSTRUCTIVE AND REFLUX UROPATHY, UNSPECIFIED (6) BPH (benign prostatic hyperplasia) Assessment/Plan: On Flomax Code(s): N40.0 - BENIGN PROSTATIC HYPERPLASIA WITHOUT LOWER URINRY TRACT SYMP Assessment/Plan Home Medication List Medication Instructions Recorded Confirmed Type Atorvastatin Ca [Lipitor] 20 mg PO HS 12/03/12 11/07/17 History Budesonide [Pulmicort 0.5 mg 1 neb NEB HS 12/03/12 11/07/17 History Nebulizer -] Multivit-Min/FA/Lycopene/Lut 1 each PO DAILY 12/03/12 11/07/17 History [Centrum Silver Tablet] Tiotropium [place] [Spiriva] 1 inh IH 12/03/12 11/07/17 History Cyanocobalamin (Vitamin B-12) 1,000 mcg PO DAILY 10/07/14 02/17/18 History [Cyanocobalamin] Cholecalciferol (Vitamin D3) 2,000 unit PO DAILY 03/01/15 11/07/17 History [Vitamin D3 -] Risperidone [Risperdal] 1 mg PO BID 11/23/16 11/07/17 History predniSONE [Deltasone -] 5 mg PO DAILY 11/23/16 11/07/17 History Albuterol Sulfate Inhaler - 1 - 2 inh PO QID PRN 03/08/17 11/07/17 History [Ventolin HFA Inhaler -] Active Medications Generic Name Dose Route Start Last Admin Trade Name Freq PRN Reason Stop Dose Admin Albuterol Sulfate 2 puff 11/06/17 21:05 Ventolin Hfa Inhaler - IH Q6H PRN ASTHMA Atorvastatin Calcium 20 mg 11/06/17 22:00 11/06/17 22:47 Lipitor - PO 20 mg HS DINESH Administration Budesonide 1 amp 11/06/17 22:00 11/06/17 23:19 Pulmicort 0.5 Mg Nebulizer - NEB Not Given HS DINESH Carvedilol 6.25 mg 11/06/17 22:00 11/07/17 10:03 Coreg - PO 6.25 mg BID DINESH Administration Cholecalciferol 2,000 unit 11/07/17 10:00 11/07/17 10:03 Vitamin D3 - PO 2,000 unit DAILY DINESH Administration Cyanocobalamin 1,000 mcg 11/07/17 10:00 11/07/17 10:03 Vitamin B12 - PO 1,000 mcg DAILY DINESH Administration CEFTRIAXONE 1 G/50 ML PREMIX 50 mls @ 100 mls/hr 11/06/17 21:15 11/07/17 10: 03 Ceftriaxone 1 Gm-D5w Bag IVPB 100 mls/hr DAILY DINESH Administration Sodium Chloride 1,000 mls @ 75 mls/hr 11/06/17 21:15 11/06/17 22:47 Normal Saline - IV 75 mls/hr ASDIR DINESH Administration Multivitamins/Minerals 1 each 11/07/17 10:00 11/07/17 10:03 Theragran-M PO 1 each DAILY DINESH Administration Pantoprazole Sodium 40 mg 11/06/17 22:00 11/07/17 10:03 Protonix - PO 11/20/17 21:59 40 mg BID DINESH Administration Pantoprazole Sodium 40 mg 11/21/17 10:00 Protonix - PO DAILY DINESH Prednisone 5 mg 11/07/17 10:00 11/07/17 10:03 Deltasone - PO 5 mg DAILY DINESH Administration Risperidone 1 mg 11/06/17 22:00 11/07/17 10:03 Risperdal - PO 1 mg BID DINESH Administration Tiotropium [place] 1 puff 11/06/17 22:00 11/06/17 23:19 Spiriva - IH Not Given HS DINESH
--- NOTE | 2017-11-07 12:12 | EKG ---
Test Reason : Blood Pressure : / mmHG Vent. Rate : 087 BPM Atrial Rate : 087 BPM P-R Int : 160 ms QRS Dur : 178 ms QT Int : 434 ms P-R-T Axes : 000 -86 078 degrees QTc Int : 522 ms POOR DATA QUALITY, INTERPRETATION MAY BE ADVERSELY AFFECTED Atrial-sensed ventricular-paced rhythm ABNORMAL ECG WHEN COMPARED WITH ECG OF 08-MAR-2017 03:59, VENT. RATE HAS INCREASED BY 8 BPM Confirmed by LOU PIZANO MD ([id number]) on 11/07/2017 12:12:21 PM Referred By: Confirmed By:LOU PIZANO MD
--- NOTE | 2017-11-07 18:56 | CON.GU ---
Consult - History of Present Illness History of Present Illness: 82 yo male with multiple medical problems including BPH and maintained on Flomax. Last seen by Dr Valle in 2012. Now admitted with urinary retention,elevated creatinine and abnormal electrolytes as a consequence. Pt is heard of hearing - Past Medical History [employer]: Yes: Other (decreased hearing) Cardio/Vascular: Yes: CAD, CHF, HTN, Hyperlipdemia, Other (Right external carotid artery stenosis, tachycardia PPM) Pulmonary: Yes: COPD, O2 Dependent, Other (pulmonary nodules h/o invasive Aspergillosis) Gastrointestinal: Yes: Diverticulitis (as per today's CT), Diverticulosis, GERD , Other (left inguinal hernia, duodinitis, colon polyps) Renal/: Yes: Renal Inusuff, BPH, Hematuria, Other (bladder dysfunction) Infectious Disease: Yes: Other (h/o invasive pulmonary aspergillosis) Musculoskeletal: Yes: Chronic low back pain, Osteoarthritis, Other (dupuytren contracture) ENT: Yes: Other ([place]) Endocrine: Yes: Diabetes Mellitus - Past Surgical History Past Surgical History: Yes: Cholecystectomy (open), Permanent Pacemaker - Alcohol/Substance Use Hx Alcohol Use: No History of Substance Use: reports: None - Smoking History Smoking history: Former smoker Have you smoked in the past 12 months: No If you are a former smoker, when did you quit?: 10YRS AGO - Social History Usual Living Arrangement: With Child ADL: Family Assistance Occupation: , 4 children History of Recent Travel: No Home Medications - Allergies Allergies/Adverse Reactions: Allergies Allergy/AdvReac Type Severity Reaction Status Date / Time Iodinated Contrast- Oral and Allergy Rash Verified 03/07/17 21:12 IV Dye [Iodinated Contrast Media - IV Dye] levofloxacin [From Levaquin] Allergy "RASH" Verified 03/07/17 21:12 - Home Medications Home Medications: Ambulatory Orders Atorvastatin Ca [Lipitor] 20 mg PO HS 12/03/12 Budesonide [Pulmicort 0.5 mg Nebulizer -] 1 neb NEB HS 12/03/12 Multivit-Min/FA/Lycopene/Lut [Centrum Silver Tablet] 1 each PO DAILY 12/03/12 Tiotropium [place] [Spiriva] 1 inh IH HS 12/03/12 Cyanocobalamin (Vitamin B-12) [Cyanocobalamin] 1,000 mcg PO DAILY 06/27/14 Losartan Potassium [Cozaar -] 100 mg PO DAILY #0 tablet 12/03/14 Cholecalciferol (Vitamin D3) [Vitamin D3 -] 2,000 unit PO DAILY 03/01/15 Risperidone [Risperdal] 1 mg PO BID 11/23/16 predniSONE [Deltasone -] 5 mg PO DAILY 11/23/16 Carvedilol [Coreg -] 6.25 mg PO BID #60 tablet 11/28/16 Pantoprazole Sodium [Protonix -] 40 mg PO BID #60 11/28/16 Albuterol Sulfate Inhaler - [Ventolin HFA Inhaler -] 1 - 2 inh PO QID PRN Family Disease History - Family Disease History Family Disease History: Other: Father ( 71 ? colon cancer), Mother ( 62 : "enlarged heart"), Sister (: CVA and [place]), Daughter (CVA) Physical Exam- Vital Signs: Vital Signs Temperature 97.7 F 11/07/17 16:30 Pulse Rate 72 11/07/17 16:30 Respiratory Rate 16 11/07/17 16:30 Blood Pressure 129/75 11/07/17 16:30 O2 Sat by Pulse Oximetry (%) 99 11/07/17 15:58 Renal/: Yes: Anthony Present (urine clear) Labs: CBC, BMP 11/07/17 06:04 11/07/17 06:04 Problem List - Problems (1) Urinary retention Assessment/Plan: continue flomax 0.8mg may give voiding trial when creatinine stabilizes Code(s): R33.9 - RETENTION OF URINE, UNSPECIFIED
[2017-11-07] MEDS ORDERED: PT OWN MED DRAWER 7, Y5N ONE ×2 (21:22→21:27)
[2017-11-07] MEDS: SODIUM CHLORIDE 1,000 ML IV SCH (21:25)
[2017-11-07] MEDS: ATORVASTATIN CA 20 MG TABLET (FP) PO SCH (21:25)
[2017-11-07] MEDS: BUDESONIDE 0.5 MG/2 ML INH SUSP VIAL NEB SCH (22:10)
[2017-11-07] MEDS: TIOTROPIUM BROMIDE 18 MCG/INH (DEVICE W/ 5 CAPSULES) IH SCH (22:15)
[2017-11-08] MEDS: SODIUM CHLORIDE 1,000 ML IV SCH ×2 (05:23→21:00)
[2017-11-08 08:05] LABS: ANION GAP 6 (8-16); BLOOD UREA NITROGEN 32 mg/dL (7-18); CALCIUM 7.6 mg/dL (8.5-10.1); CHLORIDE 111 mmol/L (98-107); CO2 25 mmol/L (21-32); CREATININE 2.2 mg/dL (0.7-1.3); GLUCOSE,RANDOM 83 mg/dL (74-106); POTASSIUM 4.3 mmol/L (3.5-5.1); SODIUM 142 mmol/L (136-145)
[2017-11-08 08:10] LABS: BASO % 0.9 % (0-2.0); EOS % 5.1 % (0-4.5); HEMATOCRIT 25.1 % (35.4-49); HEMOGLOBIN 8.2 GM/dL (11.7-16.9); MCH 27.1 pg (25.7-33.7); MCHC 32.6 g/dl (32.0-35.9); MEAN CELL VOLUME 83.1 fl (80-96); MEAN PLT VOLUME 8.7 fl (7.5-11.1); MONO % 10.3 % (3.8-10.2); NEUT % 70.7 % (42.8-82.8); PLATELET COUNT 165 K/MM3 (134-434); RBC 3.03 M/mm3 (4.00-5.60); WHITE BLOOD COUNT 6.7 K/mm3 (4.0-10.0)
[2017-11-08] MEDS: CEFTRIAXONE 1 G/50 ML PREMIX 50 ML IVPB SCH (09:07)
[2017-11-08] MEDS: CHOLECALCIFEROL (VITAMIN D3) 1,000 UNIT TABLET (FP) PO SCH (09:12)
[2017-11-08] MEDS: PANTOPRAZOLE 40 MG TABLET (FP) PO SCH ×2 (09:12→23:15)
[2017-11-08] MEDS: MULTIVITAMINS THER W-MINERALS COMBO TABLET (FP) PO SCH (09:12)
[2017-11-08] MEDS: CARVEDILOL 6.25 MG TABLET (FP) PO SCH ×2 (09:12→23:15)
[2017-11-08] MEDS: predniSONE 5 MG TABLET (UD) PO SCH (09:12)
[2017-11-08] MEDS: CYANOCOBALAMIN 1,000 MCG TABLET (FP) PO SCH (09:16)
[2017-11-08] MEDS ORDERED: PT OWN MED DRAWER 7, Y5N ONE (09:17)
[2017-11-08] MEDS: risperiDONE 1 MG TABLET (FP) PO SCH ×2 (09:19→23:15)
[2017-11-08] MEDS: ATORVASTATIN CA 20 MG TABLET (FP) PO SCH (23:15)
[2017-11-08] MEDS: TIOTROPIUM BROMIDE 18 MCG/INH (DEVICE W/ 5 CAPSULES) IH SCH (23:16)
[2017-11-09] MEDS: MULTIVITAMINS THER W-MINERALS COMBO TABLET (FP) PO SCH (09:50)
[2017-11-09] MEDS: predniSONE 5 MG TABLET (UD) PO SCH (09:50)
[2017-11-09] MEDS: CHOLECALCIFEROL (VITAMIN D3) 1,000 UNIT TABLET (FP) PO SCH (09:50)
[2017-11-09] MEDS: CEFTRIAXONE 1 G/50 ML PREMIX 50 ML IVPB SCH (09:50)
[2017-11-09] MEDS: PANTOPRAZOLE 40 MG TABLET (FP) PO SCH ×2 (09:50→22:41)
[2017-11-09] MEDS: CARVEDILOL 6.25 MG TABLET (FP) PO SCH ×2 (09:50→22:38)
[2017-11-09] MEDS: risperiDONE 1 MG TABLET (FP) PO SCH ×2 (09:50→22:41)
[2017-11-09 10:02] LABS: HEMOGLOBIN 8.4 GM/dL (11.7-16.9); LYMPH % 12.6 % (8-40); MCH 26.9 pg (25.7-33.7); MCHC 32.2 g/dl (32.0-35.9); MEAN CELL VOLUME 83.5 fl (80-96); MEAN PLT VOLUME 8.5 fl (7.5-11.1); MONO % 9.2 % (3.8-10.2); NEUT % 70.2 % (42.8-82.8); PLATELET COUNT 153 K/MM3 (134-434); RBC 3.12 M/mm3 (4.00-5.60); WHITE BLOOD COUNT 7.3 K/mm3 (4.0-10.0)
[2017-11-09 10:31] LABS: ANION GAP 8 (8-16); BILIRUBIN,TOTAL 0.7 mg/dL (0.2-1.0); BLOOD UREA NITROGEN 37 mg/dL (7-18); CALCIUM 7.7 mg/dL (8.5-10.1); CHLORIDE 109 mmol/L (98-107); CO2 24 mmol/L (21-32); CREATININE 2.5 mg/dL (0.7-1.3); GLUCOSE,RANDOM 118 mg/dL (74-106); SGOT/AST 8 U/L (15-37); SGPT/ALT 13 U/L (12-78); SODIUM 141 mmol/L (136-145); TOT PROT 5.9 g/dl (6.4-8.2)
[2017-11-09 10:32] LABS: ALK PHOS 79 U/L (45-117)
[2017-11-09] MEDS: CYANOCOBALAMIN 1,000 MCG TABLET (FP) PO SCH (11:00)
[2017-11-09] MEDS: BUDESONIDE 0.5 MG/2 ML INH SUSP VIAL NEB SCH ×2 (11:10→22:52)
--- NOTE | 2017-11-09 12:26 | PN ---
Progress Note, Physician Chief Complaint: No new complaints - Current Medication List Current Medications: Active Medications Albuterol Sulfate (Ventolin Hfa Inhaler -) 2 puff IH Q6H PRN PRN Reason: ASTHMA Atorvastatin Calcium (Lipitor -) 20 mg PO HS [facility] Last Admin: 11/08/17 23:15 Dose: 20 mg Budesonide (Pulmicort 0.5 Mg Nebulizer -) 1 amp NEB HS [facility] Last Admin: 11/09/17 11:10 Dose: Not Given Carvedilol (Coreg -) 6.25 mg PO BID [facility] Last Admin: 11/09/17 09:50 Dose: 6.25 mg Cholecalciferol (Vitamin D3 -) 2,000 unit PO DAILY [facility] Last Admin: 11/09/17 09:50 Dose: 2,000 unit Cyanocobalamin (Vitamin B12 -) 1,000 mcg PO DAILY [facility] Last Admin: 11/09/17 11:00 Dose: 1,000 mcg CEFTRIAXONE 1 G/50 ML PREMIX (Ceftriaxone 1 Gm-D5w Bag) 50 mls @ 100 mls/hr IVPB DAILY [facility] Last Admin: 11/09/17 09:50 Dose: 100 mls/hr Sodium Chloride (Normal Saline -) 1,000 mls @ 100 mls/hr IV ASDIR [facility] Last Admin: 11/08/17 21:00 Dose: 100 mls/hr Multivitamins/Minerals (Theragran-M) 1 each PO DAILY [facility] Last Admin: 11/09/17 09:50 Dose: 1 each Pantoprazole Sodium (Protonix -) 40 mg PO BID [facility] Stop: 11/20/17 21:59 Last Admin: 11/09/17 09:50 Dose: 40 mg Pantoprazole Sodium (Protonix -) 40 mg PO DAILY [facility] Prednisone (Deltasone -) 5 mg PO DAILY [facility] Last Admin: 11/09/17 09:50 Dose: 5 mg Risperidone (Risperdal -) 1 mg PO BID [facility] Last Admin: 11/09/17 09:50 Dose: 1 mg Tiotropium [place] (Spiriva -) 1 puff IH HS [facility] Last Admin: 11/08/17 23:16 Dose: Not Given - Objective Vital Signs: Vital Signs Temperature 97.9 F 11/09/17 09:12 Pulse Rate 77 11/09/17 09:12 Respiratory Rate 18 11/09/17 09:12 Blood Pressure 115/63 11/09/17 09:12 O2 Sat by Pulse Oximetry (%) 98 11/08/17 21:00 Elderly man not in acute distress HEENT: Mm moist, nO anemia NECK: No JVD No Bruit CHEST: CTa B/L CVS: S1S2 R ABD: Foleys at place No distention, non tender EXT: Trace edema feet [employer]: AOx2 non focal Labs: CBC, BMP 11/09/17 09:44 11/09/17 09:44 Problem List - Problems (1) Urinary retention Assessment/Plan: S/P Foleys Cathter will F/U recommendations Code(s): R33.9 - RETENTION OF URINE, UNSPECIFIED (2) COPD (chronic obstructive pulmonary disease) Assessment/Plan: On Home O2 at present saturating well cont all home meds Code(s): J44.9 - CHRONIC OBSTRUCTIVE PULMONARY DISEASE, UNSPECIFIED Qualifiers: COPD type: unspecified COPD Qualified Code(s): J44.9 - Chronic obstructive pulmonary disease, unspecified (3) Renal insufficiency Assessment/Plan: Base line CKD stage 3 present with worsening functions due to obstructive uropathy F/U recommendation, Renal ultrasound and Code(s): N28.9 - DISORDER OF KIDNEY AND URETER, UNSPECIFIED (4) Anemia Assessment/Plan: Chronic H/H stable Code(s): D64.9 - ANEMIA, UNSPECIFIED Qualifiers: Iron deficiency anemia type: chronic blood loss (5) Obstructive uropathy Assessment/Plan: Due to BPH S/P Foleys Cather on [place] max F/U reclamations Code(s): N13.9 - OBSTRUCTIVE AND REFLUX UROPATHY, UNSPECIFIED (6) BPH (benign prostatic hyperplasia) Assessment/Plan: On Flomax Code(s): N40.0 - BENIGN PROSTATIC HYPERPLASIA WITHOUT LOWER URINRY TRACT SYMP
--- NOTE | 2017-11-09 12:27 | PN ---
Progress Note, Physician Chief Complaint: No new complaints - Current Medication List Current Medications: Active Medications Albuterol Sulfate (Ventolin Hfa Inhaler -) 2 puff IH Q6H PRN PRN Reason: ASTHMA Atorvastatin Calcium (Lipitor -) 20 mg PO HS [facility]S [facility] B[facility]S AT [facility] Last Admin: 11/08/17 23:15 Dose: 20 mg Budesonide (Pulmicort 0.5 Mg Nebulizer -) 1 amp NEB HS [facility]S [facility]CLUDE 234 BEDS AT [facility] Last Admin: 11/09/17 11:10 Dose: Not Given Carvedilol (Coreg -) 6.25 mg PO BID COUNTS INCLUDE 234 BEDS AT [facility] Last Admin: 11/09/17 09:50 Dose: 6.25 mg Cholecalciferol (Vitamin D3 -) 2,000 unit PO DAILY COUNTS INCLUDE 234 BEDS AT [facility] Last Admin: 11/09/17 09:50 Dose: 2,000 unit Cyanocobalamin (Vitamin B12 -) 1,000 mcg PO DAILY COUNTS INCLUDE 234 BEDS AT [facility] Last Admin: 11/09/17 11:00 Dose: 1,000 mcg CEFTRIAXONE 1 G/50 ML PREMIX (Ceftriaxone 1 Gm-D5w Bag) 50 mls @ 100 mls/hr IVPB DAILY [facility]S [facility]CLUDE 234 BEDS AT [facility] Last Admin: 11/09/17 09:50 Dose: 100 mls/hr Sodium Chloride (Normal Saline -) 1,000 mls @ 100 mls/hr IV ASDIR COUNTS INCLUDE 234 BEDS AT [facility] Last Admin: 11/08/17 21:00 Dose: 100 mls/hr Multivitamins/Minerals (Theragran-M) 1 each PO DAILY COUNTS INCLUDE 234 BEDS AT [facility] Last Admin: 11/09/17 09:50 Dose: 1 each Pantoprazole Sodium (Protonix -) 40 mg PO BID COUNTS INCLUDE 234 BEDS AT [facility] Stop: 11/20/17 21:59 Last Admin: 11/09/17 09:50 Dose: 40 mg Pantoprazole Sodium (Protonix -) 40 mg PO DAILY COUNTS INCLUDE 234 BEDS AT [facility] Prednisone (Deltasone -) 5 mg PO DAILY COUNTS INCLUDE 234 BEDS AT [facility] Last Admin: 11/09/17 09:50 Dose: 5 mg Risperidone (Risperdal -) 1 mg PO BID COUNTS INCLUDE 234 BEDS AT [facility] Last Admin: 11/09/17 09:50 Dose: 1 mg Tiotropium [place] (Spiriva -) 1 puff IH HS COUNTS INCLUDE 234 BEDS AT [facility] Last Admin: 11/08/17 23:16 Dose: Not Given - Objective Vital Signs: Vital Signs Temperature 97.9 F 11/09/17 09:12 Pulse Rate 77 11/09/17 09:12 Respiratory Rate 18 11/09/17 09:12 Blood Pressure 115/63 11/09/17 09:12 O2 Sat by Pulse Oximetry (%) 98 11/08/17 21:00 Elderly man not in acute distress HEENT: Mm moist, nO anemia NECK: No JVD No Bruit CHEST: CTa B/L CVS: S1S2 R ABD: Anthony at place No distention, non tender EXT: Trace edema feet [employer]: AOx3 non focal Labs: CBC, BMP 11/09/17 09:44 11/09/17 09:44 Problem List - Problems (1) Urinary retention Assessment/Plan: S/P Foleys Cathter will F/U recommendations Code(s): R33.9 - RETENTION OF URINE, UNSPECIFIED (2) COPD (chronic obstructive pulmonary disease) Assessment/Plan: On Home O2 at present saturating well cont all home meds Code(s): J44.9 - CHRONIC OBSTRUCTIVE PULMONARY DISEASE, UNSPECIFIED Qualifiers: COPD type: unspecified COPD Qualified Code(s): J44.9 - Chronic obstructive pulmonary disease, unspecified (3) Renal insufficiency Assessment/Plan: Base line CKD stage 3 present with worsening functions due to obstructive uropathy F/U recommendation, Renal ultrasound and Code(s): N28.9 - DISORDER OF KIDNEY AND URETER, UNSPECIFIED (4) Anemia Assessment/Plan: Chronic H/H stable Code(s): D64.9 - ANEMIA, UNSPECIFIED Qualifiers: Iron deficiency anemia type: chronic blood loss (5) Obstructive uropathy Assessment/Plan: Due to BPH S/P Foleys Cather on [place] max F/U reclamations Code(s): N13.9 - OBSTRUCTIVE AND REFLUX UROPATHY, UNSPECIFIED (6) BPH (benign prostatic hyperplasia) Assessment/Plan: On Flomax Code(s): N40.0 - BENIGN PROSTATIC HYPERPLASIA WITHOUT LOWER URINRY TRACT SYMP
[2017-11-09] MEDS: SODIUM CHLORIDE 1,000 ML IV SCH (18:18)
[2017-11-09] MEDS: ATORVASTATIN CA 20 MG TABLET (FP) PO SCH (22:38)
[2017-11-09] MEDS: TIOTROPIUM BROMIDE 18 MCG/INH (DEVICE W/ 5 CAPSULES) IH SCH (22:44)
--- NOTE | 2017-11-09 23:40 | HOSP ---
Subjective - Review of Symptoms Events since last encounter: Hospitalist Encounter Notified by RN, that the patient Desaturatd to 82% on 3LNC Subjective: Arrived to bedside, patient is sitting upright in a chair on 2.5L via NC. Patient is CAPIT[place], +coarse rhonchi noted in upper lobes. A 82 y/o man PMHx: CAD, CHF, HTN, BPH, Renal Insufficiency, DM, [place]. Admitted for UTI P D/C IVF Stat Portable CXR Stat ABG O2 changed to Venti Mask- pending ABG results and Chest Xray. Chest Xray image reviewed- +pulmonary vascular congestion Lasix 20mg IV ordered now (Cr 2.5) On Venti Mask 50% Spo2 now 92% 0110- Spoke with the RN, patient now resting back in bed, reports SOB has improved. Spo2 96-97% on Venti mask Pulmonary: Yes: Dyspnea Physical Examination Vital Signs: Vital Signs Temperature 98.0 F 11/09/17 18:59 Pulse Rate 84 11/09/17 18:59 Respiratory Rate 20 11/09/17 18:59 Blood Pressure 153/73 11/09/17 18:59 O2 Sat by Pulse Oximetry (%) 98 11/09/17 09:00 Constitutional: Yes: Moderate Distress, Obese Respiratory: Yes: On Nasal O2, Rhonchi Neurological: Yes: WNL, Alert, Oriented Psychiatric: Yes: WNL, Alert Labs: CBC, BMP 11/09/17 09:44 11/09/17 09:44 Current Medications Generic Name Dose Route Start Last Admin Trade Name Freq PRN Reason Stop Dose Admin Albuterol Sulfate 2 puff 11/06/17 21:05 Ventolin Hfa Inhaler - IH Q6H PRN ASTHMA Atorvastatin Calcium 20 mg 11/06/17 22:00 11/09/17 22:38 Lipitor - PO 20 mg HS DINESH Administration Budesonide 1 amp 11/06/17 22:00 11/09/17 22:52 Pulmicort 0.5 Mg Nebulizer - NEB 1 amp HS DINESH Administration Carvedilol 6.25 mg 11/06/17 22:00 11/09/17 22:38 Coreg - PO 6.25 mg BID DINESH Administration Cholecalciferol 2,000 unit 11/07/17 10:00 11/09/17 09:50 Vitamin D3 - PO 2,000 unit DAILY DINESH Administration Cyanocobalamin 1,000 mcg 11/07/17 10:00 11/09/17 11:00 Vitamin B12 - PO 1,000 mcg DAILY DINESH Administration CEFTRIAXONE 1 G/50 ML PREMIX 50 mls @ 100 mls/hr 11/06/17 21:15 11/09/17 09: 50 Ceftriaxone 1 Gm-D5w Bag IVPB 100 mls/hr DAILY DINESH Administration Sodium Chloride 1,000 mls @ 100 mls/hr 11/08/17 13:30 11/09/17 18:18 Normal Saline - IV 100 mls/hr ASDIR DINESH Administration Multivitamins/Minerals 1 each 11/07/17 10:00 11/09/17 09:50 Theragran-M PO 1 each DAILY DINESH Administration Pantoprazole Sodium 40 mg 11/06/17 22:00 11/09/17 22:41 Protonix - PO 11/20/17 21:59 40 mg BID DINESH Administration Pantoprazole Sodium 40 mg 11/21/17 10:00 Protonix - PO DAILY DINESH Prednisone 5 mg 11/07/17 10:00 11/09/17 09:50 Deltasone - PO 5 mg DAILY DINESH Administration Risperidone 1 mg 11/06/17 22:00 11/09/17 22:41 Risperdal - PO 1 mg BID DINESH Administration Tiotropium [place] 1 puff 11/06/17 22:00 11/09/17 22:44 Spiriva - IH 1 inh HS DINESH Administration Intake & Output 11/06/17 11/07/17 11/08/17 11/09/17 23:59 23:59 23:59 23:59 Intake Total 500 1900 500 Output Total 800 1800 1300 1400 Balance -800 -1300 600 -900 Weight 68.039 kg 68.039 kg
[2017-11-09 23:43] LABS: ARTERIAL BLD GAS O2 SATURATION 82.8 % (90-98.9); ARTERIAL BLOOD GAS BASE EXCESS -4.3 meq/l (-2-2); ARTERIAL BLOOD GAS PCO2 32.4 mmHg (35-45)
[2017-11-09 23:44] LABS: ALLENS TEST POSITIVE
[2017-11-09 23:46] LABS: ARTERIAL BLOOD GAS PO2 49.4 mmHg (68-100)
[2017-11-09] MEDS ORDERED: TAMSULOSIN HCL 0.4 MG CAP.ER.24H (FP) PO ONE (23:56)
[2017-11-09] MEDS ORDERED: FUROSEMIDE 40 MG/4 ML INJECTABLE VIAL IVPUSH ONE (23:57)
[2017-11-10 07:37] LABS: BASO % 0.7 % (0-2.0); EOS % 1.1 % (0-4.5); HEMATOCRIT 29.2 % (35.4-49); HEMOGLOBIN 9.6 GM/dL (11.7-16.9); LYMPH % 9.2 % (8-40); MCH 27.4 pg (25.7-33.7); MCHC 32.7 g/dl (32.0-35.9); MEAN CELL VOLUME 83.6 fl (80-96); MEAN PLT VOLUME 8.9 fl (7.5-11.1); MONO % 6.7 % (3.8-10.2); NEUT % 82.3 % (42.8-82.8); PLATELET COUNT 186 K/MM3 (134-434); RDW 17.7 % (11.9-15.9); WHITE BLOOD COUNT 10.4 K/mm3 (4.0-10.0)
[2017-11-10 07:48] LABS: ANION GAP 9 (8-16); BLOOD UREA NITROGEN 35 mg/dL (7-18); CHLORIDE 108 mmol/L (98-107); CO2 24 mmol/L (21-32); CREATININE 2.4 mg/dL (0.7-1.3); GLUCOSE,RANDOM 105 mg/dL (74-106); POTASSIUM 4.3 mmol/L (3.5-5.1); SODIUM 141 mmol/L (136-145)
[2017-11-10] MEDS: MULTIVITAMINS THER W-MINERALS COMBO TABLET (FP) PO SCH (11:11)
[2017-11-10] MEDS: predniSONE 5 MG TABLET (UD) PO SCH (11:11)
[2017-11-10] MEDS: CEFTRIAXONE 1 G/50 ML PREMIX 50 ML IVPB SCH (11:11)
[2017-11-10] MEDS: PANTOPRAZOLE 40 MG TABLET (FP) PO SCH ×2 (11:11→22:27)
[2017-11-10] MEDS: CARVEDILOL 6.25 MG TABLET (FP) PO SCH ×2 (11:11→22:22)
[2017-11-10] MEDS: CHOLECALCIFEROL (VITAMIN D3) 1,000 UNIT TABLET (FP) PO SCH (11:11)
[2017-11-10] MEDS: CYANOCOBALAMIN 1,000 MCG TABLET (FP) PO SCH (11:11)
[2017-11-10] MEDS: risperiDONE 1 MG TABLET (FP) PO SCH ×2 (11:12→22:22)
[2017-11-10] MEDS ORDERED: AZITHROMYCIN IVPB 500 MG in DEXTROSE 5%-WATER - 250 ML IVPB ONE (12:00)
--- NOTE | 2017-11-10 12:59 | PN ---
Progress Note, Physician Chief Complaint: Mr Vee complains of a productive cough with yellow sputum. No cp, sob, n/v. - Current Medication List Current Medications: Active Medications Albuterol Sulfate (Ventolin Hfa Inhaler -) 2 puff IH Q6H PRN PRN Reason: ASTHMA Atorvastatin Calcium (Lipitor -) 20 mg PO HS [facility] Last Admin: 11/09/17 22:38 Dose: 20 mg Budesonide (Pulmicort 0.5 Mg Nebulizer -) 1 amp NEB HS [facility] Last Admin: 11/09/17 22:52 Dose: 1 amp Carvedilol (Coreg -) 6.25 mg PO BID [facility] Last Admin: 11/10/17 11:11 Dose: 6.25 mg Cholecalciferol (Vitamin D3 -) 2,000 unit PO DAILY [facility] Last Admin: 11/10/17 11:11 Dose: 2,000 unit Cyanocobalamin (Vitamin B12 -) 1,000 mcg PO DAILY [facility] Last Admin: 11/10/17 11:11 Dose: 1,000 mcg CEFTRIAXONE 1 G/50 ML PREMIX (Ceftriaxone 1 Gm-D5w Bag) 50 mls @ 100 mls/hr IVPB DAILY [facility] Last Admin: 11/10/17 11:11 Dose: 100 mls/hr Sodium Chloride (Normal Saline -) 1,000 mls @ 100 mls/hr IV ASDIR [facility] Last Admin: 11/09/17 18:18 Dose: 100 mls/hr Azithromycin 500 mg/ Dextrose 250 mls @ 250 mls/hr IVPB ONCE ONE Stop: 11/10/17 12:59 Last Admin: 11/10/17 12:24 Dose: 250 mls/hr Azithromycin 250 mg/ Dextrose 250 mls @ 250 mls/hr IVPB DAILY [facility] Multivitamins/Minerals (Theragran-M) 1 each PO DAILY [facility] Last Admin: 11/10/17 11:11 Dose: 1 each Pantoprazole Sodium (Protonix -) 40 mg PO BID [facility] Stop: 11/20/17 21:59 Last Admin: 11/10/17 11:11 Dose: 40 mg Pantoprazole Sodium (Protonix -) 40 mg PO DAILY [facility] Prednisone (Deltasone -) 5 mg PO DAILY [facility] Last Admin: 11/10/17 11:11 Dose: 5 mg Risperidone (Risperdal -) 1 mg PO BID [facility] Last Admin: 11/10/17 11:12 Dose: 1 mg Tiotropium [place] (Spiriva -) 1 puff IH HS [facility] Last Admin: 11/09/17 22:44 Dose: 1 inh - Objective Vital Signs: Vital Signs Temperature 36.9 C 11/10/17 10:00 Pulse Rate 91 H 11/10/17 10:00 Respiratory Rate 20 11/10/17 10:00 Blood Pressure 139/72 11/10/17 10:00 O2 Sat by Pulse Oximetry (%) 96 11/10/17 09:00 Constitutional: Yes: Well Nourished, No Distress, Calm Cardiovascular: Yes: Regular Rate and Rhythm. No: Gallop, Murmur, Rub Respiratory: Yes: Regular, On Nasal O2, Rhonchi. No: CTA Bilaterally, Rales, Wheezes Gastrointestinal: Yes: Normal Bowel Sounds, Soft. No: Distention, Tenderness Extremities: Yes: WNL Edema: No Labs: CBC, BMP 11/10/17 06:00 11/10/17 06:00 Problem List - Problems (1) Acute and chronic respiratory failure Assessment/Plan: -patient with escalation of oxygen requirement secondary to pneumonia -suspect pneumonia is CAP over HCAP -continued increased oxygen -add azithromycin to antibiotic regimen -consult pulmonary, may benefit from IV steroids Code(s): J96.20 - ACUTE AND CHR RESP FAILURE, UNSP W HYPOXIA OR HYPERCAPNIA Qualifiers: Respiratory failure complication: hypoxia Qualified Code(s): J96.21 - Acute and chronic respiratory failure with hypoxia (2) Pneumonia Assessment/Plan: -patient with productive cough, infiltrates on chest x-ray, leukocytosis, and acute on chronic hypoxic respiratory failure -chest urine antigens for legionella and strep -add azithromycin -sputum culture -blood cultures if becomes febrile -continue rocephin currently Code(s): J18.9 - PNEUMONIA, UNSPECIFIED ORGANISM Qualifiers: Laterality: right Lung location: lower lobe of lung (3) Obstructive uropathy Assessment/Plan: -appreciate urology assistance -gil in place Code(s): N13.9 - OBSTRUCTIVE AND REFLUX UROPATHY, UNSPECIFIED (4) Urinary retention Assessment/Plan: -as above Code(s): R33.9 - RETENTION OF URINE, UNSPECIFIED (5) BPH (benign prostatic hyperplasia) Assessment/Plan: -outpatient urology follow up Code(s): N40.0 - BENIGN PROSTATIC HYPERPLASIA WITHOUT LOWER URINRY TRACT SYMP (6) Anemia Assessment/Plan: -monitor -no need for transfusion Code(s): D64.9 - ANEMIA, UNSPECIFIED Qualifiers: Iron deficiency anemia type: chronic blood loss (7) COPD (chronic obstructive pulmonary disease) Assessment/Plan: -pulmonary consult -continue pulmocort, symbicort, and prn albuterol -continue oral prednisone, may need increase Code(s): J44.9 - CHRONIC OBSTRUCTIVE PULMONARY DISEASE, UNSPECIFIED Qualifiers: COPD type: COPD with acute exacerbation Qualified Code(s): J44.1 - Chronic obstructive pulmonary disease with (acute) exacerbation (8) Hyperlipidemia Assessment/Plan: -continue statin Code(s): E78.5 - HYPERLIPIDEMIA, UNSPECIFIED Qualifiers: Hyperlipidemia type: pure hypercholesterolemia Qualified Code(s): E78.00 - Pure hypercholesterolemia, unspecified (9) Hypertension Assessment/Plan: -controlled Code(s): I10 - ESSENTIAL (PRIMARY) HYPERTENSION Qualifiers: Hypertension type: essential hypertension Qualified Code(s): I10 - Essential (primary) hypertension (10) Acute kidney injury Assessment/Plan: -secondary to obstructive uropathy -monitor -continue IVF in the short term Code(s): N17.9 - ACUTE KIDNEY FAILURE, UNSPECIFIED (11) CKD (chronic kidney disease) Assessment/Plan: -monitor for improvement to baseline Code(s): N18.9 - CHRONIC KIDNEY DISEASE, UNSPECIFIED Qualifiers: Chronic kidney disease stage: stage 3 (moderate) Qualified Code(s): N18.3 - Chronic kidney disease, stage 3 (moderate)
--- NOTE | 2017-11-10 14:35 | CON.PULM ---
Consult Consult Specialty:: PULMONARY Referred by:: Dr. Garces Reason for Consultation:: shortness of breath - History of Present Illness Chief Complaint: shortness of breath History of Present Illness: 82yo male with h/o HTN, hyperlipidemia, COPD, chronic hypoxic respiratory failure on home O2, CKD, BPH, LV systolic/diastolic dysfunction, pulmonary HTN who was admitted for urinary retention. Catheter placed by with good urinary output. Denies any chest pain. +shortness of breath especially with exertion. No fevers, chills or sweats. +cough productive of bloody streaked sputum. 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: Other (decreased hearing) Cardio/Vascular: Yes: CAD, CHF, HTN, Hyperlipdemia, Other (Right external carotid artery stenosis, tachycardia PPM) Pulmonary: Yes: COPD, O2 Dependent, Other (pulmonary nodules h/o invasive Aspergillosis) Gastrointestinal: Yes: Diverticulitis (as per today's CT), Diverticulosis, GERD , Other (left inguinal hernia, duodinitis, colon polyps) Renal/: Yes: Renal Inusuff, BPH, Hematuria, Other (bladder dysfunction) Infectious Disease: Yes: Other (h/o invasive pulmonary aspergillosis) Musculoskeletal: Yes: Chronic low back pain, Osteoarthritis, Other (dupuytren contracture) ENT: Yes: Other (EYAK) Endocrine: Yes: Diabetes Mellitus - Past Surgical History Past Surgical History: Yes: Cholecystectomy (open), Permanent Pacemaker - Alcohol/Substance Use Hx Alcohol Use: No History of Substance Use: reports: None - Smoking History Smoking history: Former smoker Have you smoked in the past 12 months: No If you are a former smoker, when did you quit?: 10YRS AGO - Social History Usual Living Arrangement: With Child ADL: Family Assistance Occupation: , 4 children History of Recent Travel: No Home Medications - Allergies Allergies/Adverse Reactions: Allergies Allergy/AdvReac Type Severity Reaction Status Date / Time Iodinated Contrast- Oral and Allergy Rash Verified 03/07/17 21:12 IV Dye [Iodinated Contrast Media - IV Dye] levofloxacin [From Levaquin] Allergy "RASH" Verified 03/07/17 21:12 - Home Medications Home Medications: Ambulatory Orders Atorvastatin Ca [Lipitor] 20 mg PO HS 12/03/12 Budesonide [Pulmicort 0.5 mg Nebulizer -] 1 neb NEB HS 12/03/12 Multivit-Min/FA/Lycopene/Lut [Centrum Silver Tablet] 1 each PO DAILY 12/03/12 Tiotropium [place] [Spiriva] 1 inh IH HS 12/03/12 Cyanocobalamin (Vitamin B-12) [Cyanocobalamin] 1,000 mcg PO DAILY 06/27/14 Losartan Potassium [Cozaar -] 100 mg PO DAILY #0 tablet 12/03/14 Cholecalciferol (Vitamin D3) [Vitamin D3 -] 2,000 unit PO DAILY 03/01/15 Risperidone [Risperdal] 1 mg PO BID 11/23/16 predniSONE [Deltasone -] 5 mg PO DAILY 11/23/16 Carvedilol [Coreg -] 6.25 mg PO BID #60 tablet 11/28/16 Pantoprazole Sodium [Protonix -] 40 mg PO BID #60 11/28/16 Albuterol Sulfate Inhaler - [Ventolin HFA Inhaler -] 1 - 2 inh PO QID PRN Family Disease History - Family Disease History Family Disease History: Other: Father ( 71 ? colon cancer), Mother ( 62 : "enlarged heart"), Sister (: CVA and [place]), Daughter (CVA) Review of Systems Unable to obtain ROS, reason: pt hard of hearing - Review of Systems Constitutional: denies: Chills, Fever Eyes: denies: Recent Change in Vision HENT: denies: Nasal Congestion, Throat Pain Neck: denies: Stiffness, Tenderness Cardiovascular: reports: Shortness of Breath. denies: Chest Pain, Edema, Palpitations Respiratory: reports: Cough, Exercise Intolerance, Hemoptysis, SOB on Exertion. denies: Wheezing Gastrointestinal: denies: Abdominal Pain, Nausea, Vomiting Genitourinary: reports: Other (retention) Neurological: denies: Dizziness, Headache Physical Exam Vital Sings: Vital Signs Temperature 98.4 F 11/10/17 13:46 Pulse Rate 89 11/10/17 13:46 Respiratory Rate 18 11/10/17 13:46 Blood Pressure 128/61 11/10/17 13:46 O2 Sat by Pulse Oximetry (%) 96 11/10/17 09:00 Constitutional: Yes: Calm Eyes: Yes: Conjunctiva Clear, EOM Intact HENT: Yes: Atraumatic, Normocephalic Neck: Yes: Supple, Trachea Midline Cardiovascular: Yes: Regular Rate and Rhythm Respiratory: Yes: Rales, Rhonchi ...Clubbing: No Gastrointestinal: Yes: Normal Bowel Sounds, Soft. No: Tenderness Edema: No Neurological: Yes: Alert Labs: CBC, BMP 11/10/17 06:00 11/10/17 06:00 ABG Results ABG pH 7.40 (7.35-7.45) 11/09/17 23:30 ABG pCO2 at Pt Temp 32.4 mmHg (35-45) L 11/09/17 23:30 ABG pO2 at Pt Temp 49.4 mmHg (68-100) L* D 11/09/17 23:30 ABG HCO3 19.4 meq/L (22-26) L 11/09/17 23:30 ABG O2 Sat (Measured) 82.8 % (90-98.9) L 11/09/17 23:30 ABG O2 Content 11.1 % vol (15-22) L 11/09/17 23:30 ABG Base Excess -4.3 meq/l (-2-2) L 11/09/17 23:30 Imaging - Results Chest X-ray: Report Reviewed, Image Reviewed (bibasilar consolidations/effusions , pulmonary vascular congestion) Problem List - Problems (1) Acute and chronic respiratory failure with hypoxia Code(s): J96.21 - ACUTE AND CHRONIC RESPIRATORY FAILURE WITH HYPOXIA (2) Acute on chronic renal failure Code(s): N17.9 - ACUTE KIDNEY FAILURE, UNSPECIFIED; N18.9 - CHRONIC KIDNEY DISEASE, UNSPECIFIED (3) Acute on chronic combined systolic and diastolic congestive heart failure Code(s): I50.43 - ACUTE ON CHRONIC COMBINED SYSTOLIC AND DIASTOLIC HRT FAIL (4) Pneumonia Code(s): J18.9 - PNEUMONIA, UNSPECIFIED ORGANISM Qualifiers: Laterality: right Lung location: lower lobe of lung (5) Obstructive uropathy Code(s): N13.9 - OBSTRUCTIVE AND REFLUX UROPATHY, UNSPECIFIED (6) Diabetes mellitus Code(s): E11.9 - TYPE 2 DIABETES MELLITUS WITHOUT COMPLICATIONS Qualifiers: Diabetes mellitus type: type 2 Diabetes mellitus complication status: with unspecified complications Diabetes 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 technician insulin use: without halfway use Qualified Code(s): E11.8 - Type 2 diabetes mellitus with unspecified complications (7) Hyperlipidemia Code(s): E78.5 - HYPERLIPIDEMIA, UNSPECIFIED Qualifiers: Hyperlipidemia type: pure hypercholesterolemia Qualified Code(s): E78.00 - Pure hypercholesterolemia, unspecified (8) Hypertension Code(s): I10 - ESSENTIAL (PRIMARY) HYPERTENSION Qualifiers: Hypertension type: essential hypertension Qualified Code(s): I10 - Essential (primary) hypertension Assessment/Plan Acute on Chronic Hypoxic Respiratory Failure Acute on Chronic Renal Failure Obstructive Uropathy Acute on Chronic Systolic/Diastolic Heart Failure COPD Pulmonary HTN r/o Pneumonia - continue empiric antibiotics - f/u cultures - d/c IVF - will start trial of lasix - monitor urine output, creatinine - daily weights, I/Os - echocardiogram - continue empiric prednisone - inhaled bronchodilators - O2 to keep SpO2 >90% - monitor CXR with diuresis - DVT prophylaxis Thank you for this consult Dre Cruz MD
[2017-11-10] MEDS: FUROSEMIDE 40 MG/4 ML INJECTABLE VIAL IVPUSH SCH (15:45)
[2017-11-10] MEDS: ATORVASTATIN CA 20 MG TABLET (FP) PO SCH (22:22)
[2017-11-10] MEDS: TIOTROPIUM BROMIDE 18 MCG/INH (DEVICE W/ 5 CAPSULES) IH SCH (22:24)
[2017-11-10] MEDS: BUDESONIDE 0.5 MG/2 ML INH SUSP VIAL NEB SCH (22:35)
[2017-11-11 07:39] LABS: BASO % 0.8 % (0-2.0); EOS % 7.2 % (0-4.5); HEMATOCRIT 23.8 % (35.4-49); HEMOGLOBIN 7.8 GM/dL (11.7-16.9); LYMPH % 18.6 % (8-40); MCH 27.1 pg (25.7-33.7); MCHC 32.6 g/dl (32.0-35.9); MEAN CELL VOLUME 82.9 fl (80-96); MEAN PLT VOLUME 8.6 fl (7.5-11.1); MONO % 9.8 % (3.8-10.2); NEUT % 63.6 % (42.8-82.8); PLATELET COUNT 142 K/MM3 (134-434); RBC 2.87 M/mm3 (4.00-5.60); RDW 18.4 % (11.9-15.9)
[2017-11-11 07:52] LABS: ANION GAP 13 (8-16); BLOOD UREA NITROGEN 35 mg/dL (7-18); CALCIUM 8.1 mg/dL (8.5-10.1); CHLORIDE 106 mmol/L (98-107); CO2 22 mmol/L (21-32); CREATININE 2.2 mg/dL (0.7-1.3); GLUCOSE,RANDOM 83 mg/dL (74-106); MAGNESIUM 2.2 mg/dL (1.8-2.4); PHOSPHOROUS 3.1 mg/dL (2.5-4.9); POTASSIUM 3.9 mmol/L (3.5-5.1); SODIUM 141 mmol/L (136-145)
[2017-11-11] MEDS ORDERED: PT OWN MED DRAWER 7, Y5N ONE ×2 (10:10→20:48)
[2017-11-11] MEDS: FUROSEMIDE 40 MG/4 ML INJECTABLE VIAL IVPUSH SCH (10:15)
[2017-11-11] MEDS: PANTOPRAZOLE 40 MG TABLET (FP) PO SCH ×2 (10:15→21:43)
[2017-11-11] MEDS: predniSONE 5 MG TABLET (UD) PO SCH (10:15)
[2017-11-11] MEDS: MULTIVITAMINS THER W-MINERALS COMBO TABLET (FP) PO SCH (10:15)
[2017-11-11] MEDS: CARVEDILOL 6.25 MG TABLET (FP) PO SCH ×2 (10:15→21:42)
[2017-11-11] MEDS: CHOLECALCIFEROL (VITAMIN D3) 1,000 UNIT TABLET (FP) PO SCH (10:15)
[2017-11-11] MEDS: risperiDONE 1 MG TABLET (FP) PO SCH ×2 (10:15→21:43)
[2017-11-11] MEDS: CEFTRIAXONE 1 G/50 ML PREMIX 50 ML IVPB SCH (10:15)
[2017-11-11] MEDS: CYANOCOBALAMIN 1,000 MCG TABLET (FP) PO SCH (10:15)
[2017-11-11] MEDS: AZITHROMYCIN IVPB 250 MG in DEXTROSE 5%-WATER - 250 ML IVPB SCH (10:59)
--- NOTE | 2017-11-11 14:01 | PN ---
Progress Note, Physician Chief Complaint: Mr Vee says cough is better. No cp, sob, n/v. - Current Medication List Current Medications: Active Medications Albuterol Sulfate (Ventolin Hfa Inhaler -) 2 puff IH Q6H PRN PRN Reason: ASTHMA Atorvastatin Calcium (Lipitor -) 20 mg PO HS [facility] Last Admin: 11/10/17 22:22 Dose: 20 mg Budesonide (Pulmicort 0.5 Mg Nebulizer -) 1 amp NEB HS [facility] Last Admin: 11/10/17 22:35 Dose: 1 amp Carvedilol (Coreg -) 6.25 mg PO BID [facility] Last Admin: 11/11/17 10:15 Dose: 6.25 mg Cholecalciferol (Vitamin D3 -) 2,000 unit PO DAILY [facility] Last Admin: 11/11/17 10:15 Dose: 2,000 unit Cyanocobalamin (Vitamin B12 -) 1,000 mcg PO DAILY [facility] Last Admin: 11/11/17 10:15 Dose: 1,000 mcg Furosemide (Lasix Injection -) 40 mg IVPUSH DAILY [facility] Last Admin: 11/11/17 10:15 Dose: 40 mg CEFTRIAXONE 1 G/50 ML PREMIX (Ceftriaxone 1 Gm-D5w Bag) 50 mls @ 100 mls/hr IVPB DAILY [facility] Last Admin: 11/11/17 10:15 Dose: 100 mls/hr Azithromycin 250 mg/ Dextrose 250 mls @ 250 mls/hr IVPB DAILY [facility] Last Admin: 11/11/17 10:59 Dose: 250 mls/hr Multivitamins/Minerals (Theragran-M) 1 each PO DAILY [facility] Last Admin: 11/11/17 10:15 Dose: 1 each Pantoprazole Sodium (Protonix -) 40 mg PO BID [facility] Stop: 11/20/17 21:59 Last Admin: 11/11/17 10:15 Dose: 40 mg Pantoprazole Sodium (Protonix -) 40 mg PO DAILY [facility] Prednisone (Deltasone -) 5 mg PO DAILY [facility] Last Admin: 11/11/17 10:15 Dose: 5 mg Risperidone (Risperdal -) 1 mg PO BID [facility] Last Admin: 11/11/17 10:15 Dose: 1 mg Tiotropium [place] (Spiriva -) 1 puff IH HS [facility] Last Admin: 11/10/17 22:24 Dose: 1 inh - Objective Vital Signs: Vital Signs Temperature 36.7 C 11/11/17 13:52 Pulse Rate 74 11/11/17 13:52 Respiratory Rate 20 11/11/17 13:52 Blood Pressure 149/74 11/11/17 13:52 O2 Sat by Pulse Oximetry (%) 96 11/11/17 09:00 Constitutional: Yes: Well Nourished, No Distress, Calm Cardiovascular: Yes: Regular Rate and Rhythm. No: Gallop, Murmur, Rub Respiratory: Yes: Regular, On Nasal O2, Rhonchi (slight). No: CTA Bilaterally, Rales, Wheezes Gastrointestinal: Yes: Normal Bowel Sounds, Soft. No: Distention, Tenderness Extremities: Yes: WNL Edema: No Labs: CBC, BMP 11/11/17 06:00 11/11/17 06:00 Problem List - Problems (1) Acute and chronic respiratory failure Code(s): J96.20 - ACUTE AND CHR RESP FAILURE, UNSP W HYPOXIA OR HYPERCAPNIA Qualifiers: Respiratory failure complication: hypoxia Qualified Code(s): J96.21 - Acute and chronic respiratory failure with hypoxia (2) Pneumonia Code(s): J18.9 - PNEUMONIA, UNSPECIFIED ORGANISM Qualifiers: Laterality: right Lung location: lower lobe of lung (3) Obstructive uropathy Code(s): N13.9 - OBSTRUCTIVE AND REFLUX UROPATHY, UNSPECIFIED (4) Urinary retention Code(s): R33.9 - RETENTION OF URINE, UNSPECIFIED (5) BPH (benign prostatic hyperplasia) Code(s): N40.0 - BENIGN PROSTATIC HYPERPLASIA WITHOUT LOWER URINRY TRACT SYMP (6) Anemia Code(s): D64.9 - ANEMIA, UNSPECIFIED Qualifiers: Iron deficiency anemia type: chronic blood loss (7) COPD (chronic obstructive pulmonary disease) Code(s): J44.9 - CHRONIC OBSTRUCTIVE PULMONARY DISEASE, UNSPECIFIED Qualifiers: COPD type: COPD with acute exacerbation Qualified Code(s): J44.1 - Chronic obstructive pulmonary disease with (acute) exacerbation (8) Hyperlipidemia Code(s): E78.5 - HYPERLIPIDEMIA, UNSPECIFIED Qualifiers: Hyperlipidemia type: pure hypercholesterolemia Qualified Code(s): E78.00 - Pure hypercholesterolemia, unspecified (9) Hypertension Code(s): I10 - ESSENTIAL (PRIMARY) HYPERTENSION Qualifiers: Hypertension type: essential hypertension Qualified Code(s): I10 - Essential (primary) hypertension (10) Acute kidney injury Code(s): N17.9 - ACUTE KIDNEY FAILURE, UNSPECIFIED (11) CKD (chronic kidney disease) Code(s): N18.9 - CHRONIC KIDNEY DISEASE, UNSPECIFIED Qualifiers: Chronic kidney disease stage: stage 3 (moderate) Qualified Code(s): N18.3 - Chronic kidney disease, stage 3 (moderate) (12) Acute on chronic combined systolic and diastolic congestive heart failure Code(s): I50.43 - ACUTE ON CHRONIC COMBINED SYSTOLIC AND DIASTOLIC HRT FAIL Assessment/Plan (1) Acute and chronic respiratory failure Assessment/Plan: -case d/w pulmonary -feels more fluid overload vs COPD exacerbation -improving -continue diuresis -continue antibiotics -continue oxygen support at this time Code(s): J96.20 - ACUTE AND CHR RESP FAILURE, UNSP W HYPOXIA OR HYPERCAPNIA Qualifiers: Respiratory failure complication: hypoxia Qualified Code(s): J96.21 - Acute and chronic respiratory failure with hypoxia (2) Pneumonia Assessment/Plan: -patient with productive cough, infiltrates on chest x-ray, leukocytosis, and acute on chronic hypoxic respiratory failure -urine antigens for legionella and strep negative -add azithromycin day 2 -sputum culture -blood cultures if becomes febrile -continue rocephin currently Code(s): J18.9 - PNEUMONIA, UNSPECIFIED ORGANISM Qualifiers: Laterality: right Lung location: lower lobe of lung (3) Obstructive uropathy Assessment/Plan: -appreciate urology assistance -gil in place Code(s): N13.9 - OBSTRUCTIVE AND REFLUX UROPATHY, UNSPECIFIED (4) Urinary retention Assessment/Plan: -as above Code(s): R33.9 - RETENTION OF URINE, UNSPECIFIED (5) BPH (benign prostatic hyperplasia) Assessment/Plan: -outpatient urology follow up Code(s): N40.0 - BENIGN PROSTATIC HYPERPLASIA WITHOUT LOWER URINRY TRACT SYMP (6) Anemia Assessment/Plan: -monitor -no need for transfusion Code(s): D64.9 - ANEMIA, UNSPECIFIED Qualifiers: Iron deficiency anemia type: chronic blood loss (7) COPD (chronic obstructive pulmonary disease) Assessment/Plan: -pulmonary consulted adn case discussed -continue pulmocort, symbicort, and prn albuterol -continue oral prednisone, may need increase Code(s): J44.9 - CHRONIC OBSTRUCTIVE PULMONARY DISEASE, UNSPECIFIED Qualifiers: COPD type: COPD with acute exacerbation Qualified Code(s): J44.1 - Chronic obstructive pulmonary disease with (acute) exacerbation (8) Hyperlipidemia Assessment/Plan: -continue statin Code(s): E78.5 - HYPERLIPIDEMIA, UNSPECIFIED Qualifiers: Hyperlipidemia type: pure hypercholesterolemia Qualified Code(s): E78.00 - Pure hypercholesterolemia, unspecified (9) Hypertension Assessment/Plan: -controlled Code(s): I10 - ESSENTIAL (PRIMARY) HYPERTENSION Qualifiers: Hypertension type: essential hypertension Qualified Code(s): I10 - Essential (primary) hypertension (10) Acute kidney injury Assessment/Plan: -secondary to obstructive uropathy -monitor -IVF stopped in light of fluid overload -continue diuresis currently Code(s): N17.9 - ACUTE KIDNEY FAILURE, UNSPECIFIED (11) CKD (chronic kidney disease) Assessment/Plan: -monitor for improvement to baseline Code(s): N18.9 - CHRONIC KIDNEY DISEASE, UNSPECIFIED Qualifiers: Chronic kidney disease stage: stage 3 (moderate) Qualified Code(s): N18.3 - Chronic kidney disease, stage 3 (moderate) (12) CHF -continue diuresing -follow up ECHO -consult cardiology
--- NOTE | 2017-11-11 14:16 | PN ---
Progress Note, Physician History of Present Illness: pulmonary NO DISTRESS,-SOB,LESS COUGH - Current Medication List Current Medications: Active Medications Albuterol Sulfate (Ventolin Hfa Inhaler -) 2 puff IH Q6H PRN PRN Reason: ASTHMA Atorvastatin Calcium (Lipitor -) 20 mg PO HS [facility] Last Admin: 11/10/17 22:22 Dose: 20 mg Budesonide (Pulmicort 0.5 Mg Nebulizer -) 1 amp NEB HS [facility] Last Admin: 11/10/17 22:35 Dose: 1 amp Carvedilol (Coreg -) 6.25 mg PO BID [facility] Last Admin: 11/11/17 10:15 Dose: 6.25 mg Cholecalciferol (Vitamin D3 -) 2,000 unit PO DAILY [facility] Last Admin: 11/11/17 10:15 Dose: 2,000 unit Cyanocobalamin (Vitamin B12 -) 1,000 mcg PO DAILY [facility] Last Admin: 11/11/17 10:15 Dose: 1,000 mcg Furosemide (Lasix Injection -) 40 mg IVPUSH DAILY [facility] Last Admin: 11/11/17 10:15 Dose: 40 mg CEFTRIAXONE 1 G/50 ML PREMIX (Ceftriaxone 1 Gm-D5w Bag) 50 mls @ 100 mls/hr IVPB DAILY [facility] Last Admin: 11/11/17 10:15 Dose: 100 mls/hr Azithromycin 250 mg/ Dextrose 250 mls @ 250 mls/hr IVPB DAILY [facility] Last Admin: 11/11/17 10:59 Dose: 250 mls/hr Multivitamins/Minerals (Theragran-M) 1 each PO DAILY [facility] Last Admin: 11/11/17 10:15 Dose: 1 each Pantoprazole Sodium (Protonix -) 40 mg PO BID [facility] Stop: 11/20/17 21:59 Last Admin: 11/11/17 10:15 Dose: 40 mg Pantoprazole Sodium (Protonix -) 40 mg PO DAILY [facility] Prednisone (Deltasone -) 5 mg PO DAILY [facility] Last Admin: 11/11/17 10:15 Dose: 5 mg Risperidone (Risperdal -) 1 mg PO BID [facility] Last Admin: 11/11/17 10:15 Dose: 1 mg Tiotropium [place] (Spiriva -) 1 puff IH HS [facility] Last Admin: 11/10/17 22:24 Dose: 1 inh - Objective Vital Signs: Vital Signs Temperature 98.1 F 02/21/18 13:52 Pulse Rate 74 11/11/17 13:52 Respiratory Rate 20 11/11/17 13:52 Blood Pressure 149/74 11/11/17 13:52 O2 Sat by Pulse Oximetry (%) 96 11/11/17 09:00 Constitutional: Yes: Well Nourished, Calm Eyes: Yes: WNL HENT: Yes: WNL Neck: Yes: WNL Cardiovascular: Yes: Regular Rate and Rhythm, S1, S2 Respiratory: Yes: Diminished Gastrointestinal: Yes: Normal Bowel Sounds, Soft Extremities: Yes: WNL Edema: No Labs: CBC, BMP 11/11/17 06:00 11/11/17 06:00 Assessment/Plan Problem List - Problems (1) Acute and chronic respiratory failure with hypoxia Code(s): J96.21 - ACUTE AND CHRONIC RESPIRATORY FAILURE WITH HYPOXIA (2) Acute on chronic renal failure Code(s): N17.9 - ACUTE KIDNEY FAILURE, UNSPECIFIED; N18.9 - CHRONIC KIDNEY DISEASE, UNSPECIFIED (3) Acute on chronic combined systolic and diastolic congestive heart failure Code(s): I50.43 - ACUTE ON CHRONIC COMBINED SYSTOLIC AND DIASTOLIC HRT FAIL (4) Pneumonia Code(s): J18.9 - PNEUMONIA, UNSPECIFIED ORGANISM Qualifiers: Laterality: right Lung location: lower lobe of lung (5) Obstructive uropathy Code(s): N13.9 - OBSTRUCTIVE AND REFLUX UROPATHY, UNSPECIFIED (6) Diabetes mellitus Code(s): E11.9 - TYPE 2 DIABETES MELLITUS WITHOUT COMPLICATIONS Qualifiers: Diabetes mellitus type: type 2 Diabetes mellitus complication status: with unspecified complications Diabetes mellitus oysterman insulin use: without oysterman use Qualified Code(s): E11.8 - Type 2 diabetes mellitus with unspecified complications (7) Hyperlipidemia Code(s): E78.5 - HYPERLIPIDEMIA, UNSPECIFIED Qualifiers: Hyperlipidemia type: pure hypercholesterolemia Qualified Code(s): E78.00 - Pure hypercholesterolemia, unspecified (8) Hypertension Code(s): I10 - ESSENTIAL (PRIMARY) HYPERTENSION Qualifiers: Hypertension type: essential hypertension Qualified Code(s): I10 - Essential (primary) hypertension Assessment/Plan Acute on Chronic Hypoxic Respiratory Failure Acute on Chronic Renal Failure Obstructive Uropathy Acute on Chronic Systolic/Diastolic Heart Failure COPD Pulmonary HTN r/o Pneumonia Anemia - continue empiric antibiotics - will start trial of lasix - monitor urine output, creatinine,h+h - daily weights, I/Os - echocardiogram - prednisone - inhaled bronchodilators - O2 to keep SpO2 >90% - monitor CXR with diuresis - DVT prophylaxis - stool guiacs DR HUDDLESTON
--- NOTE | 2017-11-11 17:55 | CON.CARD ---
Consult Consult Specialty:: Cardiology Referred by:: Darshan Garces MD Reason for Consultation:: Dyspnea - History of Present Illness Chief Complaint: Dyspnea, urinary retention History of Present Illness: Patient is an 82 year old obese male with underlying history of severe home O2 @ 4L and steroid dependent COPD with h/o flares, pulmonary aspergillosis, ASHD post demand ischemic injury, angina pectoris, type 2 DM, HTN, hypercholesterolemia, GERD, CKD and carotid stenosis, AV block s/p PPM, diastolic dysfunction admitted for urinary retention, catheter placed by with good urinary output.Reports shortness of breath especially with exertion, denies chest pain. Allergies: levofloxacin Social history: denies current tobacco use (quit in 2010) or alcohol consumption Surgical History: gall bladder removed - History Source History Provided By: Medical Record Limitations to Obtaining History: Poor Historian - Past Medical History GEOLOGICAL AIDE: Yes: Other (decreased hearing) Cardio/Vascular: Yes: CAD, CHF, HTN, Hyperlipdemia, Other (Right external carotid artery stenosis, tachycardia PPM) Pulmonary: Yes: COPD, O2 Dependent, Other (pulmonary nodules h/o invasive Aspergillosis) Gastrointestinal: Yes: Diverticulitis (as per today's CT), Diverticulosis, GERD , Other (left inguinal hernia, duodinitis, colon polyps) Renal/: Yes: Renal Inusuff, BPH, Hematuria, Other (bladder dysfunction) Infectious Disease: Yes: Other (h/o invasive pulmonary aspergillosis) Musculoskeletal: Yes: Chronic low back pain, Osteoarthritis, Other (dupuytren contracture) ENT: Yes: Other ([place]) Endocrine: Yes: Diabetes Mellitus - Past Surgical History Past Surgical History: Yes: Cholecystectomy (open), Permanent Pacemaker - Alcohol/Substance Use Hx Alcohol Use: No History of Substance Use: reports: None - Smoking History Smoking history: Former smoker Have you smoked in the past 12 months: No If you are a former smoker, when did you quit?: 10YRS AGO - Social History Usual Living Arrangement: With Child ADL: Family Assistance Occupation: , 4 children History of Recent Travel: No Home Medications - Allergies Allergies/Adverse Reactions: Allergies Allergy/AdvReac Type Severity Reaction Status Date / Time Iodinated Contrast- Oral and Allergy Rash Verified 03/07/17 21:12 IV Dye [Iodinated Contrast Media - IV Dye] levofloxacin [From Levaquin] Allergy "RASH" Verified 03/07/17 21:12 - Home Medications Home Medications: Ambulatory Orders Atorvastatin Ca [Lipitor] 20 mg PO HS 12/03/12 Budesonide [Pulmicort 0.5 mg Nebulizer -] 1 neb NEB HS 12/03/12 Multivit-Min/FA/Lycopene/Lut [Centrum Silver Tablet] 1 each PO DAILY 12/03/12 Tiotropium [place] [Spiriva] 1 inh IH HS 12/03/12 Cyanocobalamin (Vitamin B-12) [Cyanocobalamin] 1,000 mcg PO DAILY 06/27/14 Losartan Potassium [Cozaar -] 100 mg PO DAILY #0 tablet 12/03/14 Cholecalciferol (Vitamin D3) [Vitamin D3 -] 2,000 unit PO DAILY 03/01/15 Risperidone [Risperdal] 1 mg PO BID 11/23/16 predniSONE [Deltasone -] 5 mg PO DAILY 11/23/16 Carvedilol [Coreg -] 6.25 mg PO BID #60 tablet 11/28/16 Pantoprazole Sodium [Protonix -] 40 mg PO BID #60 11/28/16 Albuterol Sulfate Inhaler - [Ventolin HFA Inhaler -] 1 - 2 inh PO QID PRN Family Disease History - Family Disease History Family Disease History: Other: Father ( 71 ? colon cancer), Mother ( 62 : "enlarged heart"), Sister (: CVA and [place]), Daughter (CVA) Review of Systems - Review of Systems Respiratory: reports: SOB on Exertion Vital Signs: Vital Signs Temperature 98.1 F 11/11/17 13:52 Pulse Rate 74 11/11/17 13:52 Respiratory Rate 20 11/11/17 13:52 Blood Pressure 149/74 11/11/17 13:52 O2 Sat by Pulse Oximetry (%) 96 11/11/17 09:00 Constitutional: Yes: No Distress, Calm Neck: Yes: Supple Respiratory: Yes: Regular, Diminished Gastrointestinal: Yes: Normal Bowel Sounds, Soft, Abdomen, Obese Cardiovascular: Yes: Regular Rate and Rhythm JVD: No Carotid Bruit: No Heart Sounds: Yes: S1, S2 Murmur: Yes: Systolic Murmur, Grade 1 Edema: No - Other Data Labs, Other Data: CBC, BMP 11/11/17 06:00 11/11/17 06:00 A-sensed V-paced @ 87 Imaging - Results Chest X-ray: Report Reviewed (Improving vascular congestion) Problem List - Problems (1) Acute and chronic respiratory failure with hypoxia Code(s): J96.21 - ACUTE AND CHRONIC RESPIRATORY FAILURE WITH HYPOXIA (2) Acute on chronic combined systolic and diastolic congestive heart failure Code(s): I50.43 - ACUTE ON CHRONIC COMBINED SYSTOLIC AND DIASTOLIC HRT FAIL (3) Acute on chronic renal failure Code(s): N17.9 - ACUTE KIDNEY FAILURE, UNSPECIFIED; N18.9 - CHRONIC KIDNEY DISEASE, UNSPECIFIED (4) COPD (chronic obstructive pulmonary disease) Code(s): J44.9 - CHRONIC OBSTRUCTIVE PULMONARY DISEASE, UNSPECIFIED Qualifiers: COPD type: COPD with acute exacerbation Qualified Code(s): J44.1 - Chronic obstructive pulmonary disease with (acute) exacerbation (5) Cardiac pacemaker in situ Code(s): Z95.0 - PRESENCE OF CARDIAC PACEMAKER (6) High-grade atrioventricular block Code(s): I44.39 - OTHER ATRIOVENTRICULAR BLOCK (7) ASHD (arteriosclerotic heart disease) Code(s): I25.10 - ATHSCL HEART DISEASE OF [place] CORONARY ARTERY W/O ANG PCTRS (8) Diabetes mellitus Code(s): E11.9 - TYPE 2 DIABETES MELLITUS WITHOUT COMPLICATIONS Qualifiers: Diabetes mellitus type: type 2 Diabetes mellitus complication status: with unspecified complications Diabetes mellitus tape deck installer insulin use: without tape deck installer use Qualified Code(s): E11.8 - Type 2 diabetes mellitus with unspecified complications (9) Hyperlipidemia Code(s): E78.5 - HYPERLIPIDEMIA, UNSPECIFIED Qualifiers: Hyperlipidemia type: pure hypercholesterolemia Qualified Code(s): E78.00 - Pure hypercholesterolemia, unspecified (10) Hypertension Code(s): I10 - ESSENTIAL (PRIMARY) HYPERTENSION Qualifiers: Hypertension type: essential hypertension Qualified Code(s): I10 - Essential (primary) hypertension Assessment/Plan 10/26/14 Echo: Normal biventricular size and fxn without sig valve abnl 11/28/2016 Echo: Mod-severely decreased LV fxn with severe HK lateral and inferolateral, mold MR, TR RVSP 40-50 mmHg 1. Acute on Chronic Hypoxic Respiratory Failure 2. Acute on Chronic Systolic Heart Failure 3. 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 Advanced AV block post pacemaker implant interrogated 11/2016 6. HTN 7. Hypercholesterolemia 8. DHEERAJ 9. Acute on CKD 10. Anemia with h/o diverticular disease PLAN: 1. IV diuresis with monitor diuretic response, renal fxn and electrolytes 2. Continue Carvedilol 6.25 bid and Lipitor 20 qhs, ASA 81 qd once hemostasis achieved, losartan once renal fxn stabilizes 3. Bronchodilators, wean FIO2 for saO2>90%, f/u repeat echo, check BNP 4. F/u Hgb and transfuse as needed for Hgb<8.0 5. Thank you for consultative opportunity
[2017-11-11] MEDS: BUDESONIDE 0.5 MG/2 ML INH SUSP VIAL NEB SCH (21:27)
[2017-11-11] MEDS: TIOTROPIUM BROMIDE 18 MCG/INH (DEVICE W/ 5 CAPSULES) IH SCH (21:43)
[2017-11-11] MEDS: ATORVASTATIN CA 20 MG TABLET (FP) PO SCH (21:43)
[2017-11-12 07:16] LABS: BASO % 0.7 % (0-2.0); EOS % 6.1 % (0-4.5); HEMATOCRIT 25.2 % (35.4-49); HEMOGLOBIN 8.3 GM/dL (11.7-16.9); LYMPH % 14.6 % (8-40); MCH 27.2 pg (25.7-33.7); MCHC 32.8 g/dl (32.0-35.9); MEAN CELL VOLUME 82.8 fl (80-96); MEAN PLT VOLUME 8.6 fl (7.5-11.1); MONO % 8.7 % (3.8-10.2); NEUT % 69.9 % (42.8-82.8); PLATELET COUNT 156 K/MM3 (134-434); RBC 3.04 M/mm3 (4.00-5.60); RDW 18.3 % (11.9-15.9)
[2017-11-12 07:41] LABS: ANION GAP 11 (8-16); BLOOD UREA NITROGEN 40 mg/dL (7-18); CALCIUM 8.1 mg/dL (8.5-10.1); CHLORIDE 103 mmol/L (98-107); CO2 25 mmol/L (21-32); CREATININE 2.5 mg/dL (0.7-1.3); GLUCOSE,RANDOM 100 mg/dL (74-106); MAGNESIUM 2.3 mg/dL (1.8-2.4); PHOSPHOROUS 3.3 mg/dL (2.5-4.9); POTASSIUM 3.4 mmol/L (3.5-5.1); SODIUM 139 mmol/L (136-145)
[2017-11-12] MEDS: AZITHROMYCIN IVPB 250 MG in DEXTROSE 5%-WATER - 250 ML IVPB SCH (10:01)
[2017-11-12] MEDS: CEFTRIAXONE 1 G/50 ML PREMIX 50 ML IVPB SCH (10:01)
[2017-11-12] MEDS: CARVEDILOL 6.25 MG TABLET (FP) PO SCH ×2 (10:02→21:23)
[2017-11-12] MEDS: CYANOCOBALAMIN 1,000 MCG TABLET (FP) PO SCH (10:02)
[2017-11-12] MEDS: CHOLECALCIFEROL (VITAMIN D3) 1,000 UNIT TABLET (FP) PO SCH (10:02)
[2017-11-12] MEDS: MULTIVITAMINS THER W-MINERALS COMBO TABLET (FP) PO SCH (10:02)
[2017-11-12] MEDS: predniSONE 5 MG TABLET (UD) PO SCH (10:02)
[2017-11-12] MEDS: FUROSEMIDE 40 MG/4 ML INJECTABLE VIAL IVPUSH SCH (10:02)
[2017-11-12] MEDS: risperiDONE 1 MG TABLET (FP) PO SCH ×2 (10:03→21:24)
[2017-11-12] MEDS: PANTOPRAZOLE 40 MG TABLET (FP) PO SCH ×2 (10:31→21:23)
--- NOTE | 2017-11-12 10:59 | PN ---
Progress Note, Physician Chief Complaint: pt sitting in chair in no acute distress. still with cough, improved, productive blood tinged sputum. pt did not speak much. Denies any chest pain, sob, n/v/d. - Current Medication List Current Medications: Active Medications Albuterol Sulfate (Ventolin Hfa Inhaler -) 2 puff IH Q6H PRN PRN Reason: ASTHMA Atorvastatin Calcium (Lipitor -) 20 mg PO HS [facility] Last Admin: 11/11/17 21:43 Dose: 20 mg Budesonide (Pulmicort 0.5 Mg Nebulizer -) 1 amp NEB HS [facility] Last Admin: 11/11/17 21:27 Dose: 1 amp Carvedilol (Coreg -) 6.25 mg PO BID [facility] Last Admin: 11/12/17 10:02 Dose: 6.25 mg Cholecalciferol (Vitamin D3 -) 2,000 unit PO DAILY [facility] Last Admin: 11/12/17 10:02 Dose: 2,000 unit Cyanocobalamin (Vitamin B12 -) 1,000 mcg PO DAILY [facility] Last Admin: 11/12/17 10:02 Dose: 1,000 mcg Furosemide (Lasix Injection -) 40 mg IVPUSH DAILY [facility] Last Admin: 11/12/17 10:02 Dose: 40 mg CEFTRIAXONE 1 G/50 ML PREMIX (Ceftriaxone 1 Gm-D5w Bag) 50 mls @ 100 mls/hr IVPB DAILY [facility] Last Admin: 11/12/17 10:01 Dose: 100 mls/hr Azithromycin 250 mg/ Dextrose 250 mls @ 250 mls/hr IVPB DAILY [facility] Last Admin: 11/12/17 10:01 Dose: 250 mls/hr Multivitamins/Minerals (Theragran-M) 1 each PO DAILY [facility] Last Admin: 11/12/17 10:02 Dose: 1 each Pantoprazole Sodium (Protonix -) 40 mg PO BID [facility] Stop: 11/20/17 21:59 Last Admin: 11/12/17 10:31 Dose: 40 mg Pantoprazole Sodium (Protonix -) 40 mg PO DAILY [facility] Prednisone (Deltasone -) 5 mg PO DAILY [facility] Last Admin: 11/12/17 10:02 Dose: 5 mg Risperidone (Risperdal -) 1 mg PO BID [facility] Last Admin: 11/12/17 10:03 Dose: 1 mg Tiotropium [place] (Spiriva -) 1 puff IH HS [facility] Last Admin: 11/11/17 21:43 Dose: 1 inh - Objective Vital Signs: Vital Signs Temperature 97.9 F 11/12/17 10:05 Pulse Rate 72 11/12/17 10:05 Respiratory Rate 18 11/12/17 10:05 Blood Pressure 129/52 11/12/17 10:05 O2 Sat by Pulse Oximetry (%) 96 11/11/17 21:00 Constitutional: Yes: No Distress Cardiovascular: Yes: Regular Rate and Rhythm, Murmur. No: Bruit, JVD, Gallop Respiratory: Yes: Regular, Cough, Diminished, Rales (bibasilar) Gastrointestinal: Yes: Normal Bowel Sounds, Soft. No: Distention, Tenderness Genitourinary: Yes: Gil Present Edema: No Neurological: Yes: Alert Labs: CBC, BMP 11/12/17 06:00 11/12/17 06:00 Problem List - Problems (1) Acute and chronic respiratory failure with hypoxia Code(s): J96.21 - ACUTE AND CHRONIC RESPIRATORY FAILURE WITH HYPOXIA (2) Acute kidney injury Code(s): N17.9 - ACUTE KIDNEY FAILURE, UNSPECIFIED (3) Acute on chronic combined systolic and diastolic congestive heart failure Code(s): I50.43 - ACUTE ON CHRONIC COMBINED SYSTOLIC AND DIASTOLIC HRT FAIL (4) Acute on chronic renal failure Code(s): N17.9 - ACUTE KIDNEY FAILURE, UNSPECIFIED; N18.9 - CHRONIC KIDNEY DISEASE, UNSPECIFIED (5) BPH (benign prostatic hyperplasia) Code(s): N40.0 - BENIGN PROSTATIC HYPERPLASIA WITHOUT LOWER URINRY TRACT SYMP (6) CKD (chronic kidney disease) Code(s): N18.9 - CHRONIC KIDNEY DISEASE, UNSPECIFIED Qualifiers: Chronic kidney disease stage: stage 3 (moderate) Qualified Code(s): N18.3 - Chronic kidney disease, stage 3 (moderate) (7) Obstructive uropathy Code(s): N13.9 - OBSTRUCTIVE AND REFLUX UROPATHY, UNSPECIFIED (8) Anemia Code(s): D64.9 - ANEMIA, UNSPECIFIED Qualifiers: Iron deficiency anemia type: chronic blood loss (9) COPD (chronic obstructive pulmonary disease) Code(s): J44.9 - CHRONIC OBSTRUCTIVE PULMONARY DISEASE, UNSPECIFIED Qualifiers: COPD type: COPD with acute exacerbation Qualified Code(s): J44.1 - Chronic obstructive pulmonary disease with (acute) exacerbation (10) Pneumonia Code(s): J18.9 - PNEUMONIA, UNSPECIFIED ORGANISM Qualifiers: Laterality: right Lung location: lower lobe of lung (11) Hyperlipidemia Code(s): E78.5 - HYPERLIPIDEMIA, UNSPECIFIED Qualifiers: Hyperlipidemia type: pure hypercholesterolemia Qualified Code(s): E78.00 - Pure hypercholesterolemia, unspecified (12) Hypertension Code(s): I10 - ESSENTIAL (PRIMARY) HYPERTENSION Qualifiers: Hypertension type: essential hypertension Qualified Code(s): I10 - Essential (primary) hypertension (13) Hypokalemia Code(s): E87.6 - HYPOKALEMIA Assessment/Plan (1) Acute and chronic respiratory failure Assessment/Plan: secondary to fluid overload/pna, improving continue diuresis per pulm/cardiology continue o2, antibiotics d/c'd per pulm on home o2 pulm following Code(s): J96.20 - ACUTE AND CHR RESP FAILURE, UNSP W HYPOXIA OR HYPERCAPNIA Qualifiers: Respiratory failure complication: hypoxia Qualified Code(s): J96.21 - Acute and chronic respiratory failure with hypoxia (2) Pneumonia Assessment/Plan: productive cough, infiltrates on chest x-ray, leukocytosis, and acute on chronic hypoxic respiratory failure urine antigens for legionella and strep negative sputum culture neg antibiotics d/c'd per pulm repeat chest xray tomorrow Code(s): J18.9 - PNEUMONIA, UNSPECIFIED ORGANISM Qualifiers: Laterality: right Lung location: lower lobe of lung (3) Obstructive uropathy Assessment/Plan: gil in place per urology Code(s): N13.9 - OBSTRUCTIVE AND REFLUX UROPATHY, UNSPECIFIED (4) Urinary retention Assessment/Plan: -as above Code(s): R33.9 - RETENTION OF URINE, UNSPECIFIED (5) BPH (benign prostatic hyperplasia) Assessment/Plan: -outpatient urology follow up Code(s): N40.0 - BENIGN PROSTATIC HYPERPLASIA WITHOUT LOWER URINRY TRACT SYMP (6) Anemia Assessment/Plan: h/h stable will monitor Code(s): D64.9 - ANEMIA, UNSPECIFIED Qualifiers: Iron deficiency anemia type: chronic blood loss (7) COPD (chronic obstructive pulmonary disease) Assessment/Plan: continue pulmocort, symbicort, and prn albuterol continue oral prednisone pulm following Code(s): J44.9 - CHRONIC OBSTRUCTIVE PULMONARY DISEASE, UNSPECIFIED Qualifiers: COPD type: COPD with acute exacerbation Qualified Code(s): J44.1 - Chronic obstructive pulmonary disease with (acute) exacerbation (8) Hyperlipidemia Assessment/Plan: continue statin Code(s): E78.5 - HYPERLIPIDEMIA, UNSPECIFIED Qualifiers: Hyperlipidemia type: pure hypercholesterolemia Qualified Code(s): E78.00 - Pure hypercholesterolemia, unspecified (9) Hypertension Assessment/Plan: controlled Code(s): I10 - ESSENTIAL (PRIMARY) HYPERTENSION Qualifiers: Hypertension type: essential hypertension Qualified Code(s): I10 - Essential (primary) hypertension (10) Acute kidney injury Assessment/Plan: secondary to obstructive uropathy IVF d/c'd in the setting of fluid overload Code(s): N17.9 - ACUTE KIDNEY FAILURE, UNSPECIFIED (11) CKD (chronic kidney disease) Assessment/Plan: worsened today possibly secondary to diuresis monitor for improvement to baseline Code(s): N18.9 - CHRONIC KIDNEY DISEASE, UNSPECIFIED Qualifiers: Chronic kidney disease stage: stage 3 (moderate) Qualified Code(s): N18.3 - Chronic kidney disease, stage 3 (moderate) (12) CHF acute on chronic systolic HF continue diuresis follow up ECHO cardiology following (13) Hypokalemia Assessment/Plan: K3.4 50meq po potassium ordered monitor bmp Code(s): E87.6 - HYPOKALEMIA Dispo: SNF
[2017-11-12] MEDS ORDERED: POTASSIUM CHLORIDE TABS 20 MEQ TABLET.ER (FP) PO ONE (12:30)
--- NOTE | 2017-11-12 12:37 | PN ---
Progress Note, Physician History of Present Illness: Dyspnea improving with diuresis, denies chest pain. - Current Medication List Current Medications: Active Medications Albuterol Sulfate (Ventolin Hfa Inhaler -) 2 puff IH Q6H PRN PRN Reason: ASTHMA Atorvastatin Calcium (Lipitor -) 20 mg PO HS [facility] Last Admin: 11/11/17 21:43 Dose: 20 mg Budesonide (Pulmicort 0.5 Mg Nebulizer -) 1 amp NEB HS [facility] Last Admin: 11/11/17 21:27 Dose: 1 amp Carvedilol (Coreg -) 6.25 mg PO BID [facility] Last Admin: 11/12/17 10:02 Dose: 6.25 mg Cholecalciferol (Vitamin D3 -) 2,000 unit PO DAILY [facility] Last Admin: 11/12/17 10:02 Dose: 2,000 unit Cyanocobalamin (Vitamin B12 -) 1,000 mcg PO DAILY [facility] Last Admin: 11/12/17 10:02 Dose: 1,000 mcg Furosemide (Lasix Injection -) 40 mg IVPUSH DAILY [facility] Last Admin: 11/12/17 10:02 Dose: 40 mg CEFTRIAXONE 1 G/50 ML PREMIX (Ceftriaxone 1 Gm-D5w Bag) 50 mls @ 100 mls/hr IVPB DAILY [facility] Last Admin: 11/12/17 10:01 Dose: 100 mls/hr Azithromycin 250 mg/ Dextrose 250 mls @ 250 mls/hr IVPB DAILY [facility] Last Admin: 11/12/17 10:01 Dose: 250 mls/hr Multivitamins/Minerals (Theragran-M) 1 each PO DAILY [facility] Last Admin: 11/12/17 10:02 Dose: 1 each Pantoprazole Sodium (Protonix -) 40 mg PO BID [facility] Stop: 11/20/17 21:59 Last Admin: 11/12/17 10:31 Dose: 40 mg Pantoprazole Sodium (Protonix -) 40 mg PO DAILY [facility] Potassium Chloride (K-Dur -) 10 meq PO ONCE ONE Stop: 11/12/17 11:09 Prednisone (Deltasone -) 5 mg PO DAILY [facility] Last Admin: 11/12/17 10:02 Dose: 5 mg Risperidone (Risperdal -) 1 mg PO BID [facility] Last Admin: 11/12/17 10:03 Dose: 1 mg Tiotropium [place] (Spiriva -) [address] [facility] Last Admin: 11/11/17 21:43 Dose: 1 inh - Objective Vital Signs: Vital Signs Temperature 97.9 F 11/12/17 10:05 Pulse Rate 72 11/12/17 10:05 Respiratory Rate 18 11/12/17 10:05 Blood Pressure 129/52 11/12/17 10:05 O2 Sat by Pulse Oximetry (%) 95 11/12/17 09:00 Constitutional: Yes: No Distress, Calm Neck: Yes: Supple Cardiovascular: Yes: Regular Rate and Rhythm Respiratory: Yes: Regular, Diminished, On Nasal O2 Gastrointestinal: Yes: Normal Bowel Sounds, Soft, Abdomen, Obese Edema: No Labs: CBC, BMP 11/12/17 06:00 11/12/17 06:00 Problem List - Problems (1) Acute and chronic respiratory failure with hypoxia Code(s): J96.21 - ACUTE AND CHRONIC RESPIRATORY FAILURE WITH HYPOXIA (2) Acute on chronic combined systolic and diastolic congestive heart failure Code(s): I50.43 - ACUTE ON CHRONIC COMBINED SYSTOLIC AND DIASTOLIC HRT FAIL (3) Acute on chronic renal failure Code(s): N17.9 - ACUTE KIDNEY FAILURE, UNSPECIFIED; N18.9 - CHRONIC KIDNEY DISEASE, UNSPECIFIED (4) COPD (chronic obstructive pulmonary disease) Code(s): J44.9 - CHRONIC OBSTRUCTIVE PULMONARY DISEASE, UNSPECIFIED Qualifiers: COPD type: COPD with acute exacerbation Qualified Code(s): J44.1 - Chronic obstructive pulmonary disease with (acute) exacerbation (5) Cardiac pacemaker in situ Code(s): Z95.0 - PRESENCE OF CARDIAC PACEMAKER (6) High-grade atrioventricular block Code(s): I44.39 - OTHER ATRIOVENTRICULAR BLOCK (7) ASHD (arteriosclerotic heart disease) Code(s): I25.10 - ATHSCL HEART DISEASE OF [place] CORONARY ARTERY W/O ANG PCTRS (8) Diabetes mellitus Code(s): E11.9 - TYPE 2 DIABETES MELLITUS WITHOUT COMPLICATIONS Qualifiers: Diabetes mellitus type: type 2 Diabetes mellitus complication status: with unspecified complications Diabetes mellitus mcfp insulin use: without mcfp use Qualified Code(s): E11.8 - Type 2 diabetes mellitus with unspecified complications (9) Hyperlipidemia Code(s): E78.5 - HYPERLIPIDEMIA, UNSPECIFIED Qualifiers: Hyperlipidemia type: pure hypercholesterolemia Qualified Code(s): E78.00 - Pure hypercholesterolemia, unspecified (10) Hypertension Code(s): I10 - ESSENTIAL (PRIMARY) HYPERTENSION Qualifiers: Hypertension type: essential hypertension Qualified Code(s): I10 - Essential (primary) hypertension Assessment/Plan 10/26/14 Echo: Normal biventricular size and fxn without sig valve abnl 11/28/2016 Echo: Mod-severely decreased LV fxn with severe HK lateral and inferolateral, mold MR, TR RVSP 40-50 mmHg 11/12/2017 Echo: Mod-severely decreased LV fxn with severe HK inferior, mild TR mild effusion 1. Acute on Chronic Hypoxic Respiratory Failure 2. Acute on Chronic Systolic Heart Failure 3. 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 Advanced AV block post pacemaker implant interrogated 11/2016 6. HTN 7. Hypercholesterolemia 8. DHEERAJ 9. Acute on CKD worse 10. Anemia with h/o diverticular disease PLAN: 1. IV diuresis with monitor diuretic response, renal fxn and electrolytes, replete K as you are 2. Continue Carvedilol 6.25 bid and Lipitor 20 qhs, ASA 81 qd once hemostasis achieved, losartan once renal fxn stabilizes 3. Bronchodilators, oral steroid taper with GI protection, wean FIO2 for saO2>90 %, check BNP 4. F/u Hgb and transfuse as needed for Hgb<8.0
[2017-11-12] MEDS ORDERED: POTASSIUM CHLORIDE TABS 10 MEQ TABLET.ER (FP) PO ONE (13:00)
--- NOTE | 2017-11-12 13:15 | PN ---
Progress Note (short form) - Note Progress Note: PULMONARY States breathing is better today. +cough with clear sputum/bloody streaks per nursing. No fevers recorded. Last Vital Signs Temp Pulse Resp BP Pulse Ox 97.9 F 72 18 129/52 95 11/12/17 10:05 11/12/17 10:05 11/12/17 10:05 11/12/17 10:05 11/12/17 09:00 Gen: less tachypneic Heart: RRR Lung: bibasilar rales Abd: soft, nontender Ext: no edema CBC, BMP 11/12/17 06:00 11/12/17 06:00 Active Medications Albuterol Sulfate (Ventolin Hfa Inhaler -) 2 puff IH Q6H PRN PRN Reason: ASTHMA Atorvastatin Calcium (Lipitor -) 20 mg PO HS [facility] Last Admin: 11/11/17 21:43 Dose: 20 mg Budesonide (Pulmicort 0.5 Mg Nebulizer -) 1 amp NEB HS [facility] Last Admin: 11/11/17 21:27 Dose: 1 amp Carvedilol (Coreg -) 6.25 mg PO BID [facility] Last Admin: 11/12/17 10:02 Dose: 6.25 mg Cholecalciferol (Vitamin D3 -) 2,000 unit PO DAILY [facility] Last Admin: 11/12/17 10:02 Dose: 2,000 unit Cyanocobalamin (Vitamin B12 -) 1,000 mcg PO DAILY [facility] Last Admin: 11/12/17 10:02 Dose: 1,000 mcg Furosemide (Lasix Injection -) 40 mg IVPUSH DAILY [facility] Last Admin: 11/12/17 10:02 Dose: 40 mg CEFTRIAXONE 1 G/50 ML PREMIX (Ceftriaxone 1 Gm-D5w Bag) 50 mls @ 100 mls/hr IVPB DAILY [facility] Last Admin: 11/12/17 10:01 Dose: 100 mls/hr Azithromycin 250 mg/ Dextrose 250 mls @ 250 mls/hr IVPB DAILY [facility] Last Admin: 11/12/17 10:01 Dose: 250 mls/hr Multivitamins/Minerals (Theragran-M) 1 each PO DAILY [facility] Last Admin: 11/12/17 10:02 Dose: 1 each Pantoprazole Sodium (Protonix -) 40 mg PO BID [facility] Stop: 11/20/17 21:59 Last Admin: 11/12/17 10:31 Dose: 40 mg Pantoprazole Sodium (Protonix -) 40 mg PO DAILY [facility] Prednisone (Deltasone -) 5 mg PO DAILY [facility] Last Admin: 11/12/17 10:02 Dose: 5 mg Risperidone (Risperdal -) 1 mg PO BID [facility] Last Admin: 11/12/17 10:03 Dose: 1 mg Tiotropium [place] (Spiriva -) 1 puff IH HS [facility] Last Admin: 11/11/17 21:43 Dose: 1 inh A/P Acute on Chronic Hypoxic Respiratory Failure Acute on Chronic Renal Failure Obstructive Uropathy Acute on Chronic Systolic/Diastolic Heart Failure COPD Pulmonary HTN r/o Pneumonia - continue lasix - monitor urine output, creatinine - daily weights, I/Os - can d/c antibiotics - continue empiric prednisone - inhaled bronchodilators - O2 to keep SpO2 >90% - monitor CXR with diuresis - DVT prophylaxis Problem List - Problems (1) Acute and chronic respiratory failure with hypoxia Code(s): J96.21 - ACUTE AND CHRONIC RESPIRATORY FAILURE WITH HYPOXIA (2) Acute on chronic renal failure Code(s): N17.9 - ACUTE KIDNEY FAILURE, UNSPECIFIED; N18.9 - CHRONIC KIDNEY DISEASE, UNSPECIFIED (3) Acute on chronic combined systolic and diastolic congestive heart failure Code(s): I50.43 - ACUTE ON CHRONIC COMBINED SYSTOLIC AND DIASTOLIC HRT FAIL (4) Pneumonia Code(s): J18.9 - PNEUMONIA, UNSPECIFIED ORGANISM Qualifiers: Laterality: right Lung location: lower lobe of lung (5) Obstructive uropathy Code(s): N13.9 - OBSTRUCTIVE AND REFLUX UROPATHY, UNSPECIFIED (6) Diabetes mellitus Code(s): E11.9 - TYPE 2 DIABETES MELLITUS WITHOUT COMPLICATIONS Qualifiers: Diabetes mellitus type: type 2 Diabetes mellitus complication status: with unspecified complications Diabetes mellitus custodial insulin use: without remote computer terminal operator use Qualified Code(s): E11.8 - Type 2 diabetes mellitus with unspecified complications (7) Hyperlipidemia Code(s): E78.5 - HYPERLIPIDEMIA, UNSPECIFIED Qualifiers: Hyperlipidemia type: pure hypercholesterolemia Qualified Code(s): E78.00 - Pure hypercholesterolemia, unspecified (8) Hypertension Code(s): I10 - ESSENTIAL (PRIMARY) HYPERTENSION Qualifiers: Hypertension type: essential hypertension Qualified Code(s): I10 - Essential (primary) hypertension
[2017-11-12] MEDS: ATORVASTATIN CA 20 MG TABLET (FP) PO SCH (21:23)
[2017-11-12] MEDS: TIOTROPIUM BROMIDE 18 MCG/INH (DEVICE W/ 5 CAPSULES) IH SCH (21:26)
[2017-11-12] MEDS: BUDESONIDE 0.5 MG/2 ML INH SUSP VIAL NEB SCH (21:51)
[2017-11-13 07:45] LABS: ANION GAP 11 (8-16); BLOOD UREA NITROGEN 37 mg/dL (7-18); CALCIUM 7.8 mg/dL (8.5-10.1); CHLORIDE 105 mmol/L (98-107); CO2 24 mmol/L (21-32); CREATININE 2.1 mg/dL (0.7-1.3); GLUCOSE,RANDOM 96 mg/dL (74-106); POTASSIUM 3.9 mmol/L (3.5-5.1); SODIUM 140 mmol/L (136-145)
[2017-11-13 08:05] LABS: BASO % 0.5 % (0-2.0); EOS % 6.9 % (0-4.5); HEMATOCRIT 23.9 % (35.4-49); LYMPH % 14.1 % (8-40); MCH 27.5 pg (25.7-33.7); MCHC 33.2 g/dl (32.0-35.9); MEAN CELL VOLUME 82.7 fl (80-96); MEAN PLT VOLUME 9.1 fl (7.5-11.1); MONO % 8.8 % (3.8-10.2); NEUT % 69.7 % (42.8-82.8); PLATELET COUNT 157 K/MM3 (134-434); WHITE BLOOD COUNT 8.5 K/mm3 (4.0-10.0)
[2017-11-13] MEDS ORDERED: PT OWN MED DRAWER 7, Y5N ONE (09:07)
[2017-11-13] MEDS: CARVEDILOL 6.25 MG TABLET (FP) PO SCH ×2 (09:17→21:14)
[2017-11-13] MEDS: MULTIVITAMINS THER W-MINERALS COMBO TABLET (FP) PO SCH (09:18)
[2017-11-13] MEDS: risperiDONE 1 MG TABLET (FP) PO SCH ×2 (09:18→21:15)
[2017-11-13] MEDS: CYANOCOBALAMIN 1,000 MCG TABLET (FP) PO SCH (09:18)
[2017-11-13] MEDS: predniSONE 5 MG TABLET (UD) PO SCH (09:18)
[2017-11-13] MEDS: CHOLECALCIFEROL (VITAMIN D3) 1,000 UNIT TABLET (FP) PO SCH (09:18)
[2017-11-13] MEDS: FUROSEMIDE 40 MG/4 ML INJECTABLE VIAL IVPUSH SCH (09:18)
[2017-11-13] MEDS: PANTOPRAZOLE 40 MG TABLET (FP) PO SCH ×2 (11:26→21:14)
--- NOTE | 2017-11-13 11:26 | PN ---
Progress Note, Physician Chief Complaint: pt sitting in chair in no acute distress. informed pt of plan of d/c to snf when ready, pt got upset and asked if its permanent. Informed pt, it is short term rehab, pt appears calm. Denies any chest pain, sob, n/v/d. - Current Medication List Current Medications: Active Medications Albuterol Sulfate (Ventolin Hfa Inhaler -) 2 puff IH Q6H PRN PRN Reason: ASTHMA Atorvastatin Calcium (Lipitor -) 20 mg PO [facility] Last Admin: 11/12/17 21:23 Dose: 20 mg Budesonide (Pulmicort 0.5 Mg Nebulizer -) 1 amp NEB HS [facility] Last Admin: 11/12/17 21:51 Dose: 1 amp Carvedilol (Coreg -) 6.25 mg PO BID [facility] Last Admin: 11/13/17 09:17 Dose: 6.25 mg Cholecalciferol (Vitamin D3 -) 2,000 unit PO DAILY [facility] Last Admin: 11/13/17 09:18 Dose: 2,000 unit Cyanocobalamin (Vitamin B12 -) 1,000 mcg PO DAILY [facility] Last Admin: 11/13/17 09:18 Dose: 1,000 mcg Furosemide (Lasix Injection -) 40 mg IVPUSH DAILY [facility] Last Admin: 11/13/17 09:18 Dose: 40 mg Multivitamins/Minerals (Theragran-M) 1 each PO DAILY [facility] Last Admin: 11/13/17 09:18 Dose: 1 each Pantoprazole Sodium (Protonix -) 40 mg PO BID [facility] Stop: 11/20/17 21:59 Last Admin: 11/12/17 21:23 Dose: 40 mg Pantoprazole Sodium (Protonix -) 40 mg PO DAILY [facility] Prednisone (Deltasone -) 5 mg PO DAILY [facility] Last Admin: 11/13/17 09:18 Dose: 5 mg Risperidone (Risperdal -) 1 mg PO BID [facility] Last Admin: 11/13/17 09:18 Dose: 1 mg Tiotropium [place] (Spiriva -) 1 puff IH HS [facility] Last Admin: 11/12/17 21:26 Dose: 1 inh - Objective Vital Signs: Vital Signs Temperature 98.1 F 11/13/17 05:28 Pulse Rate 82 11/13/17 10:06 Respiratory Rate 20 02/23/18 10:06 Blood Pressure 121/63 02/23/18 10:06 O2 Sat by Pulse Oximetry (%) 95 11/13/17 09:00 Constitutional: Yes: Well Nourished, No Distress Cardiovascular: Yes: WNL, Regular Rate and Rhythm Respiratory: Yes: Regular, CTA Bilaterally, On Nasal O2. No: Rales, Rhonchi, SOB, Tachypnea, Wheezes Gastrointestinal: Yes: WNL, Normal Bowel Sounds. No: Distention, Tenderness Genitourinary: Yes: Gil Present Edema: No Neurological: Yes: Alert, Oriented Psychiatric: Yes: Alert, Oriented Labs: CBC, BMP 11/13/17 06:00 11/13/17 06:00 - ....Imaging Chest X-ray: Pending Problem List - Problems (1) Acute and chronic respiratory failure with hypoxia Code(s): J96.21 - ACUTE AND CHRONIC RESPIRATORY FAILURE WITH HYPOXIA (2) Acute kidney injury Code(s): N17.9 - ACUTE KIDNEY FAILURE, UNSPECIFIED (3) Acute on chronic combined systolic and diastolic congestive heart failure Code(s): I50.43 - ACUTE ON CHRONIC COMBINED SYSTOLIC AND DIASTOLIC HRT FAIL (4) Acute on chronic renal failure Code(s): N17.9 - ACUTE KIDNEY FAILURE, UNSPECIFIED; N18.9 - CHRONIC KIDNEY DISEASE, UNSPECIFIED (5) BPH (benign prostatic hyperplasia) Code(s): N40.0 - BENIGN PROSTATIC HYPERPLASIA WITHOUT LOWER URINRY TRACT SYMP (6) CKD (chronic kidney disease) Code(s): N18.9 - CHRONIC KIDNEY DISEASE, UNSPECIFIED Qualifiers: Chronic kidney disease stage: stage 3 (moderate) Qualified Code(s): N18.3 - Chronic kidney disease, stage 3 (moderate) (7) Obstructive uropathy Code(s): N13.9 - OBSTRUCTIVE AND REFLUX UROPATHY, UNSPECIFIED (8) Anemia Code(s): D64.9 - ANEMIA, UNSPECIFIED Qualifiers: Iron deficiency anemia type: chronic blood loss (9) COPD (chronic obstructive pulmonary disease) Code(s): J44.9 - CHRONIC OBSTRUCTIVE PULMONARY DISEASE, UNSPECIFIED Qualifiers: COPD type: COPD with acute exacerbation Qualified Code(s): J44.1 - Chronic obstructive pulmonary disease with (acute) exacerbation (10) Pneumonia Code(s): J18.9 - PNEUMONIA, UNSPECIFIED ORGANISM Qualifiers: Laterality: right Lung location: lower lobe of lung (11) Hyperlipidemia Code(s): E78.5 - HYPERLIPIDEMIA, UNSPECIFIED Qualifiers: Hyperlipidemia type: pure hypercholesterolemia Qualified Code(s): E78.00 - Pure hypercholesterolemia, unspecified (12) Hypertension Code(s): I10 - ESSENTIAL (PRIMARY) HYPERTENSION Qualifiers: Hypertension type: essential hypertension Qualified Code(s): I10 - Essential (primary) hypertension (13) Hypokalemia Code(s): E87.6 - HYPOKALEMIA Assessment/Plan (1) Acute and chronic respiratory failure Assessment/Plan: secondary to fluid overload/pna, improving continue diuresis per pulm/cardiology continue o2, antibiotics d/c'd per pulm on home o2 pulm following Code(s): J96.20 - ACUTE AND CHR RESP FAILURE, UNSP W HYPOXIA OR HYPERCAPNIA Qualifiers: Respiratory failure complication: hypoxia Qualified Code(s): J96.21 - Acute and chronic respiratory failure with hypoxia (2) Pneumonia Assessment/Plan: productive cough, infiltrates on chest x-ray, leukocytosis, and acute on chronic hypoxic respiratory failure urine antigens for legionella and strep negative sputum culture neg antibiotics d/c'd per pulm repeat chest xray pending Code(s): J18.9 - PNEUMONIA, UNSPECIFIED ORGANISM Qualifiers: Laterality: right Lung location: lower lobe of lung (3) Obstructive uropathy Assessment/Plan: urology consult reviewed remove gil today, trial of void PVR will monitor Code(s): N13.9 - OBSTRUCTIVE AND REFLUX UROPATHY, UNSPECIFIED (4) Urinary retention Assessment/Plan: -as above Code(s): R33.9 - RETENTION OF URINE, UNSPECIFIED (5) BPH (benign prostatic hyperplasia) Assessment/Plan: -outpatient urology follow up Code(s): N40.0 - BENIGN PROSTATIC HYPERPLASIA WITHOUT LOWER URINRY TRACT SYMP (6) Anemia Assessment/Plan: h/h stable will monitor Code(s): D64.9 - ANEMIA, UNSPECIFIED Qualifiers: Iron deficiency anemia type: chronic blood loss (7) COPD (chronic obstructive pulmonary disease) Assessment/Plan: continue pulmocort, symbicort, and prn albuterol continue oral prednisone pulm following Code(s): J44.9 - CHRONIC OBSTRUCTIVE PULMONARY DISEASE, UNSPECIFIED Qualifiers: COPD type: COPD with acute exacerbation Qualified Code(s): J44.1 - Chronic obstructive pulmonary disease with (acute) exacerbation (8) Hyperlipidemia Assessment/Plan: continue statin Code(s): E78.5 - HYPERLIPIDEMIA, UNSPECIFIED Qualifiers: Hyperlipidemia type: pure hypercholesterolemia Qualified Code(s): E78.00 - Pure hypercholesterolemia, unspecified (9) Hypertension Assessment/Plan: controlled Code(s): I10 - ESSENTIAL (PRIMARY) HYPERTENSION Qualifiers: Hypertension type: essential hypertension Qualified Code(s): I10 - Essential (primary) hypertension (10) Acute kidney injury Assessment/Plan: secondary to obstructive uropathy, improving Code(s): N17.9 - ACUTE KIDNEY FAILURE, UNSPECIFIED (11) CKD (chronic kidney disease) Assessment/Plan: improving Code(s): N18.9 - CHRONIC KIDNEY DISEASE, UNSPECIFIED Qualifiers: Chronic kidney disease stage: stage 3 (moderate) Qualified Code(s): N18.3 - Chronic kidney disease, stage 3 (moderate) (12) CHF acute on chronic systolic HF continue diuresis , will discuss with cardiology to transition to po lasix cardiology following (13) Hypokalemia Assessment/Plan: K3.9 improved monitor bmp Code(s): E87.6 - HYPOKALEMIA Dispo: SNF when pt transitioned to po lasix, and cleared by cardiology
--- NOTE | 2017-11-13 17:22 | PN ---
Progress Note (short form) - Note Progress Note: PULMONARY APEARS STABLE VSS/AFEBRILE ANICTERIC/PALE DIMINISHED BREATH SOUNDS LEFT BASE S1S2 PACED BS+ NO EDEMA LABS/MEDS/NOTES/IMAGES/MICRO REVIEWED Acute on Chronic Hypoxic Respiratory Failure Acute on Chronic Renal Failure Obstructive Uropathy Acute on Chronic Systolic/Diastolic Heart Failure COPD Pulmonary HTN - continue lasix - monitor urine output, creatinine - daily weights, I/Os - continue empiric prednisone - inhaled bronchodilators - O2 to keep SpO2 >90% - monitor CXR with diuresis - DVT prophylaxis Cynthia TRAN MD
--- NOTE | 2017-11-13 18:09 | PN ---
Progress Note, Physician History of Present Illness: Dyspnea improving with diuresis, denies chest pain. - Current Medication List Current Medications: Active Medications Albuterol Sulfate (Ventolin Hfa Inhaler -) 2 puff IH Q6H PRN PRN Reason: ASTHMA Atorvastatin [place] (Lipitor -) 20 mg PO HS [facility] Last Admin: 11/12/17 21:23 Dose: 20 mg Budesonide (Pulmicort 0.5 Mg Nebulizer -) 1 amp NEB HS [facility] Last Admin: 11/12/17 21:51 Dose: 1 amp Carvedilol (Coreg -) 6.25 mg PO BID [facility] Last Admin: 11/13/17 09:17 Dose: 6.25 mg Cholecalciferol (Vitamin D3 -) 2,000 unit PO DAILY [facility] Last Admin: 11/13/17 09:18 Dose: 2,000 unit Cyanocobalamin (Vitamin B12 -) 1,000 mcg PO DAILY [facility] Last Admin: 11/13/17 09:18 Dose: 1,000 mcg Furosemide (Lasix Injection -) 40 mg IVPUSH DAILY [facility] Last Admin: 11/13/17 09:18 Dose: 40 mg Multivitamins/Minerals (Theragran-M) 1 each PO DAILY [facility] Last Admin: 11/13/17 09:18 Dose: 1 each Pantoprazole [place] (Protonix -) 40 mg PO BID [facility] Stop: 11/20/17 21:59 Last Admin: 11/13/17 11:26 Dose: 40 mg Pantoprazole Sodium (Protonix -) 40 mg PO DAILY [facility] Prednisone (Deltasone -) 5 mg PO DAILY [facility] Last Admin: 11/13/17 09:18 Dose: 5 mg Risperidone (Risperdal -) 1 mg PO BID [facility] Last Admin: 11/13/17 09:18 Dose: 1 mg Tiotropium [place] (Spiriva -) 1 puff IH HS [facility] Last Admin: 11/12/17 21:26 Dose: 1 inh - Objective Vital Signs: Vital Signs Temperature 98.2 F 11/13/17 15:06 Pulse Rate 80 11/13/17 15:06 Respiratory Rate 20 11/13/17 15:06 Blood Pressure 150/78 11/13/17 15:06 O2 Sat by Pulse Oximetry (%) 95 11/13/17 09:00 Constitutional: Yes: No Distress, Calm Neck: Yes: Supple Cardiovascular: Yes: Regular Rate and Rhythm Respiratory: Yes: Regular, Diminished, On Nasal O2 Gastrointestinal: Yes: Normal Bowel Sounds, Soft, Abdomen, Obese Edema: No Labs: CBC, BMP 11/13/17 06:00 11/13/17 06:00 Problem List - Problems (1) Acute and chronic respiratory failure with hypoxia Code(s): J96.21 - ACUTE AND CHRONIC RESPIRATORY FAILURE WITH HYPOXIA (2) Acute on chronic combined systolic and diastolic congestive heart failure Code(s): I50.43 - ACUTE ON CHRONIC COMBINED SYSTOLIC AND DIASTOLIC HRT FAIL (3) Acute on chronic renal failure Code(s): N17.9 - ACUTE KIDNEY FAILURE, UNSPECIFIED; N18.9 - CHRONIC KIDNEY DISEASE, UNSPECIFIED (4) COPD (chronic obstructive pulmonary disease) Code(s): J44.9 - CHRONIC OBSTRUCTIVE PULMONARY DISEASE, UNSPECIFIED Qualifiers: COPD type: COPD with acute exacerbation Qualified Code(s): J44.1 - Chronic obstructive pulmonary disease with (acute) exacerbation (5) Cardiac pacemaker in situ Code(s): Z95.0 - PRESENCE OF CARDIAC PACEMAKER (6) High-grade atrioventricular block Code(s): I44.39 - OTHER ATRIOVENTRICULAR BLOCK (7) ASHD (arteriosclerotic heart disease) Code(s): I25.10 - ATHSCL HEART DISEASE OF [place] CORONARY ARTERY W/O ANG PCTRS (8) Diabetes mellitus Code(s): E11.9 - TYPE 2 DIABETES MELLITUS WITHOUT COMPLICATIONS Qualifiers: Diabetes mellitus type: type 2 Diabetes mellitus complication status: with unspecified complications Diabetes mellitus half-way insulin use: without half-way use Qualified Code(s): E11.8 - Type 2 diabetes mellitus with unspecified complications (9) Hyperlipidemia Code(s): E78.5 - HYPERLIPIDEMIA, UNSPECIFIED Qualifiers: Hyperlipidemia type: pure hypercholesterolemia Qualified Code(s): E78.00 - Pure hypercholesterolemia, unspecified (10) Hypertension Code(s): I10 - ESSENTIAL (PRIMARY) HYPERTENSION Qualifiers: Hypertension type: essential hypertension Qualified Code(s): I10 - Essential (primary) hypertension Assessment/Plan 10/26/14 Echo: Normal biventricular size and fxn without sig valve abnl 11/28/2016 Echo: Mod-severely decreased LV fxn with severe HK lateral and inferolateral, mold MR, TR RVSP 40-50 mmHg 11/12/2017 Echo: Mod-severely decreased LV fxn with severe HK inferior, mild TR mild effusion 1. Acute on Chronic Hypoxic Respiratory Failure 2. Acute on Chronic Systolic Heart Failure 3. 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 Advanced AV block post pacemaker implant interrogated 11/2016 6. HTN 7. Hypercholesterolemia 8. DHEERAJ 9. Acute on CKD improved 10. Anemia with h/o diverticular disease PLAN: 1. IV diuresis with monitor diuretic response, renal fxn and electrolytes 2. Continue Carvedilol 6.25 bid and Lipitor 20 qhs, ASA 81 qd once hemostasis achieved, losartan once renal fxn stabilizes 3. Bronchodilators, oral steroid taper with GI protection, wean FIO2 for saO2>90 %, f/u CXR results 4. F/u Hgb and transfuse as needed for Hgb<8.0
[2017-11-13] MEDS: ATORVASTATIN CA 20 MG TABLET (FP) PO SCH (21:14)
[2017-11-13] MEDS: TIOTROPIUM BROMIDE 18 MCG/INH (DEVICE W/ 5 CAPSULES) IH SCH (21:15)
[2017-11-13] MEDS: BUDESONIDE 0.5 MG/2 ML INH SUSP VIAL NEB SCH (22:05)
[2017-11-14 07:58] LABS: EOS % 7.1 % (0-4.5); HEMATOCRIT 25.2 % (35.4-49); HEMOGLOBIN 8.3 GM/dL (11.7-16.9); LYMPH % 15.2 % (8-40); MCH 27.4 pg (25.7-33.7); MCHC 32.8 g/dl (32.0-35.9); MEAN CELL VOLUME 83.3 fl (80-96); MEAN PLT VOLUME 8.7 fl (7.5-11.1); MONO % 8.3 % (3.8-10.2); NEUT % 68.4 % (42.8-82.8); PLATELET COUNT 154 K/MM3 (134-434); RBC 3.03 M/mm3 (4.00-5.60); RDW 18.4 % (11.9-15.9); WHITE BLOOD COUNT 8.5 K/mm3 (4.0-10.0)
[2017-11-14 08:21] LABS: ANION GAP 13 (8-16); BLOOD UREA NITROGEN 38 mg/dL (7-18); CALCIUM 8.7 mg/dL (8.5-10.1); CHLORIDE 103 mmol/L (98-107); CO2 22 mmol/L (21-32); CREATININE 2.2 mg/dL (0.7-1.3); GLUCOSE,RANDOM 86 mg/dL (74-106); MAGNESIUM 2.2 mg/dL (1.8-2.4); PHOSPHOROUS 3.4 mg/dL (2.5-4.9); POTASSIUM 4.2 mmol/L (3.5-5.1); SODIUM 138 mmol/L (136-145)
[2017-11-14] MEDS ORDERED: ASPIRIN COATED 81 MG TABLET.EC PO SCH (10:00)
--- NOTE | 2017-11-14 10:09 | PN ---
Progress Note, Physician - Current Medication List Current Medications: Active Medications Albuterol Sulfate (Ventolin Hfa Inhaler -) 2 puff IH Q6H PRN PRN Reason: ASTHMA Aspirin (Ecotrin -) 81 mg PO DAILY [facility] Atorvastatin Calcium (Lipitor -) 20 mg PO HS [facility] Last Admin: 11/13/17 21:14 Dose: 20 mg Budesonide (Pulmicort 0.5 Mg Nebulizer -) 1 amp NEB HS [facility] Last Admin: 11/13/17 22:05 Dose: 1 amp Carvedilol (Coreg -) 6.25 mg PO BID [facility] Last Admin: 11/13/17 21:14 Dose: 6.25 mg Cholecalciferol (Vitamin D3 -) 2,000 unit PO DAILY [facility] Last Admin: 11/13/17 09:18 Dose: 2,000 unit Cyanocobalamin (Vitamin B12 -) 1,000 mcg PO DAILY [facility] Last Admin: 11/13/17 09:18 Dose: 1,000 mcg Furosemide (Lasix Injection -) 40 mg IVPUSH DAILY [facility] Last Admin: 11/13/17 09:18 Dose: 40 mg Multivitamins/Minerals (Theragran-M) 1 each PO DAILY [facility] Last Admin: 11/13/17 09:18 Dose: 1 each Pantoprazole Sodium (Protonix -) 40 mg PO BID [facility] Stop: 11/20/17 21:59 Last Admin: 11/13/17 21:14 Dose: 40 mg Pantoprazole Sodium (Protonix -) 40 mg PO DAILY [facility] Prednisone (Deltasone -) 5 mg PO DAILY [facility] Last Admin: 11/13/17 09:18 Dose: 5 mg Risperidone (Risperdal -) 1 mg PO BID [facility] Last Admin: 11/13/17 21:15 Dose: 1 mg Tiotropium [place] (Spiriva -) 1 puff IH HS [facility] Last Admin: 11/13/17 21:15 Dose: 1 inh - Objective Vital Signs: Vital Signs Temperature 98.4 F 11/14/17 06:22 Pulse Rate 75 11/14/17 06:22 Respiratory Rate 20 11/14/17 06:22 Blood Pressure 142/72 11/14/17 06:22 O2 Sat by Pulse Oximetry (%) 95 11/13/17 20:04 Labs: CBC, BMP 11/14/17 07:00 02/24/18 07:00 Problem List - Problems (1) Acute and chronic respiratory failure with hypoxia Code(s): J96.21 - ACUTE AND CHRONIC RESPIRATORY FAILURE WITH HYPOXIA (2) Acute kidney injury Code(s): N17.9 - ACUTE KIDNEY FAILURE, UNSPECIFIED (3) Acute on chronic combined systolic and diastolic congestive heart failure Code(s): I50.43 - ACUTE ON CHRONIC COMBINED SYSTOLIC AND DIASTOLIC HRT FAIL (4) Acute on chronic renal failure Code(s): N17.9 - ACUTE KIDNEY FAILURE, UNSPECIFIED; N18.9 - CHRONIC KIDNEY DISEASE, UNSPECIFIED (5) BPH (benign prostatic hyperplasia) Code(s): N40.0 - BENIGN PROSTATIC HYPERPLASIA WITHOUT LOWER URINRY TRACT SYMP (6) CKD (chronic kidney disease) Code(s): N18.9 - CHRONIC KIDNEY DISEASE, UNSPECIFIED Qualifiers: Chronic kidney disease stage: stage 3 (moderate) Qualified Code(s): N18.3 - Chronic kidney disease, stage 3 (moderate) (7) Obstructive uropathy Code(s): N13.9 - OBSTRUCTIVE AND REFLUX UROPATHY, UNSPECIFIED (8) Anemia Code(s): D64.9 - ANEMIA, UNSPECIFIED Qualifiers: Iron deficiency anemia type: chronic blood loss (9) COPD (chronic obstructive pulmonary disease) Code(s): J44.9 - CHRONIC OBSTRUCTIVE PULMONARY DISEASE, UNSPECIFIED Qualifiers: COPD type: COPD with acute exacerbation Qualified Code(s): J44.1 - Chronic obstructive pulmonary disease with (acute) exacerbation (10) Pneumonia Code(s): J18.9 - PNEUMONIA, UNSPECIFIED ORGANISM Qualifiers: Laterality: right Lung location: lower lobe of lung (11) Hyperlipidemia Code(s): E78.5 - HYPERLIPIDEMIA, UNSPECIFIED Qualifiers: Hyperlipidemia type: pure hypercholesterolemia Qualified Code(s): E78.00 - Pure hypercholesterolemia, unspecified (12) Hypertension Code(s): I10 - ESSENTIAL (PRIMARY) HYPERTENSION Qualifiers: Hypertension type: essential hypertension Qualified Code(s): I10 - Essential (primary) hypertension (13) Hypokalemia Code(s): E87.6 - HYPOKALEMIA
[2017-11-14] MEDS: PANTOPRAZOLE 40 MG TABLET (FP) PO SCH (10:59)
[2017-11-14] MEDS: CHOLECALCIFEROL (VITAMIN D3) 1,000 UNIT TABLET (FP) PO SCH (10:59)
[2017-11-14] MEDS: FUROSEMIDE 40 MG/4 ML INJECTABLE VIAL IVPUSH SCH (10:59)
[2017-11-14] MEDS: CYANOCOBALAMIN 1,000 MCG TABLET (FP) PO SCH (10:59)
[2017-11-14] MEDS: CARVEDILOL 6.25 MG TABLET (FP) PO SCH (10:59)
[2017-11-14] MEDS: predniSONE 5 MG TABLET (UD) PO SCH (10:59)
[2017-11-14] MEDS: MULTIVITAMINS THER W-MINERALS COMBO TABLET (FP) PO SCH (10:59)
[2017-11-14] MEDS: risperiDONE 1 MG TABLET (FP) PO SCH (10:59)
--- NOTE | 2017-11-14 11:09 | PN ---
Progress Note (short form) - Note Progress Note: PULMONARY APEARS STABLE MORE RESPONSIVE VERBALLY THIS AM VSS/AFEBRILE ANICTERIC/PALE DIMINISHED BREATH SOUNDS LEFT BASE S1S2 PACED BS+ NO EDEMA LABS/MEDS/NOTES/IMAGES/MICRO REVIEWED Acute on Chronic Hypoxic Respiratory Failure Acute on Chronic Renal Failure Obstructive Uropathy Acute on Chronic Systolic/Diastolic Heart Failure COPD Pulmonary HTN - continue lasix - monitor urine output, creatinine - daily weights, I/Os - continue empiric prednisone - inhaled bronchodilators - O2 to keep SpO2 >90% - monitor CXR with diuresis - DVT prophylaxis Cynthia TRAN MD
--- NOTE | 2017-11-14 11:09 | DS ---
Physical Examination Vital Signs: Vital Signs Temperature 98.2 F 11/14/17 11:01 Pulse Rate 87 11/14/17 11:01 Respiratory Rate 18 11/14/17 11:01 Blood Pressure 105/59 11/14/17 11:01 O2 Sat by Pulse Oximetry (%) 95 11/13/17 20:04 Constitutional: Yes: No Distress Cardiovascular: Yes: Regular Rate and Rhythm. No: Gallop, Murmur, Rub Respiratory: Yes: Regular, CTA Bilaterally, Diminished, On Nasal O2. No: Rales , Rhonchi, Tachypnea, Wheezes Gastrointestinal: Yes: Normal Bowel Sounds. No: Distention, Tenderness Edema: No Neurological: Yes: WNL, Alert, Oriented Psychiatric: Yes: Alert, Oriented Labs: CBC, BMP 11/14/17 07:00 11/14/17 07:00 Discharge Summary Reason For Visit: RENAL INSUFFICIENCY RETENTION OF URINE Current Active Problems Acute and chronic respiratory failure (Acute) Acute and chronic respiratory failure with hypoxia (Acute) Acute kidney injury (Acute) Acute on chronic combined systolic and diastolic congestive heart failure (Acute ) Acute on chronic renal failure (Acute) BPH (benign prostatic hyperplasia) (Acute) CKD (chronic kidney disease) (Acute) Hypokalemia (Acute) Obstructive uropathy (Acute) Renal insufficiency (Acute) Urinary retention (Acute) Hospital Course: 82 yrs old male with history of CAD, dHF, HTN, Hyperlipdemia,Right external carotid artery stenosis, tachycardia s/p PPM COPD, O2 Dependent, Diverticulosis, GERD,CKD, BPH was admitted with acute urinary retention. Pt found to have Acute on Chronic Hypoxic Respiratory Failure secondary to fluid overload, Acute on Chronic Renal Failure, Obstructive Uropathy, Acute on Chronic Systolic/Diastolic Heart Failure. Urology was consulted and gil was placed, gil was removed yesterday and pt successfully voided, pvr minimal. Pt advised to follow up with urology outpt. His acute resp failure secondary to worsening HF has improved with iv diuresis by cardiology, plan to d/c to snf on po lasix 20mg and outpt follow up. He has been doing well with diuresis, electrolytes wnl, impoved lung exam/dyspnea, satting >92 on NC. Cr also improved with time, slightly elevated from baseline considering diuresis. Pt can continue presdnisone 5mg po as he was taking at home. Otherwise, pt clinically ready for discharge. Condition: Stable - Instructions Diet, Activity, Other Instructions: low na diet, ambulate as tolerated lasix 20mg daily follow up with pcp , Urology and Cardiology as directed follow up with any other specialists as needed seek emergent care if worsening sob, chest pain, n/v/d, weakness Referrals: Avel Zavala MD [Staff Physician] - 2 Weeks George Rocha MD [Staff Physician] - 1 Week Mat Thomas MD [Staff Physician] - 2 Weeks Disposition: ASSISTED FACILITY - Home Medications Comprehensive Discharge Medication List: Ambulatory Orders Atorvastatin Ca [Lipitor] 20 mg PO HS 12/03/12 Budesonide [Pulmicort 0.5 mg Nebulizer -] 1 neb NEB HS 12/03/12 Multivit-Min/FA/Lycopene/Lut [Centrum Silver Tablet] 1 each PO DAILY 12/03/12 Tiotropium [place] [Spiriva] 1 inh IH HS 12/03/12 Cyanocobalamin (Vitamin B-12) [Cyanocobalamin] 1,000 mcg PO DAILY 06/27/14 Losartan Potassium [Cozaar -] 100 mg PO DAILY #0 tablet 12/03/14 Cholecalciferol (Vitamin D3) [Vitamin D3 -] 2,000 unit PO DAILY 03/01/15 Risperidone [Risperdal] 1 mg PO BID 11/23/16 predniSONE [Deltasone -] 5 mg PO DAILY 11/23/16 Carvedilol [Coreg -] 6.25 mg PO BID #60 tablet 11/28/16 Pantoprazole Sodium [Protonix -] 40 mg PO BID #60 11/28/16 Albuterol Sulfate Inhaler - [Ventolin HFA Inhaler -] 1 - 2 inh PO QID PRN Aspirin Coated [Ecotrin -] 81 mg PO DAILY tablet.ec 11/14/17 Furosemide [Lasix -] 20 mg PO DAILY #7 tablet 11/14/17
--- NOTE | 2017-11-14 12:49 | PN ---
Progress Note, Physician History of Present Illness: Dyspnea improving with diuresis, denies chest pain. - Current Medication List Current Medications: Active Medications Albuterol Sulfate (Ventolin Hfa Inhaler -) 2 puff IH Q6H PRN PRN Reason: ASTHMA Aspirin (Ecotrin -) 81 mg PO DAILY [facility] Last Admin: 11/14/17 10:59 Dose: 81 mg Atorvastatin Calcium (Lipitor -) 20 mg PO HS [facility] Last Admin: 11/13/17 21:14 Dose: 20 mg Budesonide (Pulmicort 0.5 Mg Nebulizer -) 1 amp NEB HS [facility] Last Admin: 11/13/17 22:05 Dose: 1 amp Carvedilol (Coreg -) 6.25 mg PO BID [facility] Last Admin: 11/14/17 10:59 Dose: 6.25 mg Cholecalciferol (Vitamin D3 -) 2,000 unit PO DAILY [facility] Last Admin: 11/14/17 10:59 Dose: 2,000 unit Cyanocobalamin (Vitamin B12 -) 1,000 mcg PO DAILY [facility] Last Admin: 11/14/17 10:59 Dose: 1,000 mcg Furosemide (Lasix Injection -) 40 mg IVPUSH DAILY [facility] Last Admin: 11/14/17 10:59 Dose: 40 mg Losartan Potassium (Cozaar -) 100 mg PO DAILY [facility] Multivitamins/Minerals (Theragran-M) 1 each PO DAILY [facility] Last Admin: 11/14/17 10:59 Dose: 1 each Pantoprazole Sodium (Protonix -) 40 mg PO BID [facility] Stop: 11/20/17 21:59 Last Admin: 11/14/17 10:59 Dose: 40 mg Pantoprazole Sodium (Protonix -) 40 mg PO DAILY [facility] Prednisone (Deltasone -) 5 mg PO DAILY [facility] Last Admin: 11/14/17 10:59 Dose: 5 mg Risperidone (Risperdal -) 1 mg PO BID [facility] Last Admin: 11/14/17 10:59 Dose: 1 mg Tiotropium [place] (Spiriva -) 1 puff IH HS [facility] Last Admin: 11/13/17 21:15 Dose: 1 inh - Objective Vital Signs: Vital Signs Temperature 98.2 F 11/14/17 11:01 Pulse Rate 87 11/14/17 11:01 Respiratory Rate 18 11/14/17 11:01 Blood Pressure 105/59 11/14/17 11:01 O2 Sat by Pulse Oximetry (%) 95 11/13/17 20:04 Constitutional: Yes: No Distress, Calm Neck: Yes: Supple Cardiovascular: Yes: Regular Rate and Rhythm Respiratory: Yes: Regular, Diminished, On Nasal O2 Gastrointestinal: Yes: Normal Bowel Sounds, Soft Edema: No Labs: CBC, BMP 11/14/17 07:00 11/14/17 07:00 - ....Imaging Chest X-ray: Report Reviewed (Unchanged from previous) Problem List - Problems (1) Acute and chronic respiratory failure with hypoxia Code(s): J96.21 - ACUTE AND CHRONIC RESPIRATORY FAILURE WITH HYPOXIA (2) Acute on chronic combined systolic and diastolic congestive heart failure Code(s): I50.43 - ACUTE ON CHRONIC COMBINED SYSTOLIC AND DIASTOLIC HRT FAIL (3) Acute on chronic renal failure Code(s): N17.9 - ACUTE KIDNEY FAILURE, UNSPECIFIED; N18.9 - CHRONIC KIDNEY DISEASE, UNSPECIFIED (4) COPD (chronic obstructive pulmonary disease) Code(s): J44.9 - CHRONIC OBSTRUCTIVE PULMONARY DISEASE, UNSPECIFIED Qualifiers: COPD type: COPD with acute exacerbation Qualified Code(s): J44.1 - Chronic obstructive pulmonary disease with (acute) exacerbation (5) Cardiac pacemaker in situ Code(s): Z95.0 - PRESENCE OF CARDIAC PACEMAKER (6) High-grade atrioventricular block Code(s): I44.39 - OTHER ATRIOVENTRICULAR BLOCK (7) ASHD (arteriosclerotic heart disease) Code(s): I25.10 - ATHSCL HEART DISEASE OF [place] CORONARY ARTERY W/O ANG PCTRS (8) Diabetes mellitus Code(s): E11.9 - TYPE 2 DIABETES MELLITUS WITHOUT COMPLICATIONS Qualifiers: Diabetes mellitus type: type 2 Diabetes mellitus complication status: with unspecified complications Diabetes 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 technician insulin use: without termite technician use Qualified Code(s): E11.8 - Type 2 diabetes mellitus with unspecified complications (9) Hyperlipidemia Code(s): E78.5 - HYPERLIPIDEMIA, UNSPECIFIED Qualifiers: Hyperlipidemia type: pure hypercholesterolemia Qualified Code(s): E78.00 - Pure hypercholesterolemia, unspecified (10) Hypertension Code(s): I10 - ESSENTIAL (PRIMARY) HYPERTENSION Qualifiers: Hypertension type: essential hypertension Qualified Code(s): I10 - Essential (primary) hypertension Assessment/Plan 10/26/14 Echo: Normal biventricular size and fxn without sig valve abnl 11/28/2016 Echo: Mod-severely decreased LV fxn with severe HK lateral and inferolateral, mold MR, TR RVSP 40-50 mmHg 11/12/2017 Echo: Mod-severely decreased LV fxn with severe HK inferior, mild TR mild effusion 1. Acute on Chronic Hypoxic Respiratory Failure improved 2. Acute on Chronic Systolic Heart Failure improved 3. 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 Advanced AV block post pacemaker implant interrogated 11/2016 6. HTN 7. Hypercholesterolemia 8. DHEERAJ 9. Acute on CKD improved 10. Anemia with h/o diverticular disease PLAN: 1. Lasix 20 qd with monitor diuretic response, renal fxn and electrolytes 2. Continue Carvedilol 6.25 bid, Lipitor 20 qhs, ASA 81 qd, and losartan 100 qd as renal fxn stabilized 3. Bronchodilators, oral steroid taper with GI protection, wean FIO2 for saO2>90 % 4. F/u Hgb and transfuse as needed for Hgb<8.0
[2017-11-14 14:06] VITALS: BP 112/56; PULSE 77; TEMP 98
[2017-11-15] MEDS ORDERED: LOSARTAN POTASSIUM 50 MG TABLET (FP) PO SCH (10:00)
[2017-11-15] MEDS ORDERED: FUROSEMIDE 20 MG TABLET (FP) PO SCH (10:00)
[2017-11-21] MEDS ORDERED: PANTOPRAZOLE 40 MG TABLET (FP) PO SCH (10:00)
== END 2017-11-14 17:44 | DRG 682 ==
LOC: JER 14:51 → JERBED 21:04 → J7W 11-07 18:11 → OBSVTOIN 11-10 12:53
PROVIDERS: ADMIT Specialist; ATTEND Specialist
PROC: 0T9B70Z Drainage of Bladder with Drainage Device, Via Natural or Artificial Opening (ICD-10-PCS; principal; 2017-11-10)
DX: N17.9 Acute kidney failure, unspecified (principal); J18.9 Pneumonia, unspecified organism; J96.02 Acute respiratory failure with hypercapnia; I50.43 Acute on chronic combined systolic (congestive) and diastolic (congestive) heart failure; N39.0 Urinary tract infection, site not specified; I13.0 Hypertensive heart and chronic kidney disease with heart failure and stage 1 through stage 4 chronic kidney disease, or unspecified chronic kidney disease; N13.8 Other obstructive and reflux uropathy; I27.20 Pulmonary hypertension, unspecified; N40.1 Benign prostatic hyperplasia with lower urinary tract symptoms; N18.9 Chronic kidney disease, unspecified; R33.8 Other retention of urine; E78.5 Hyperlipidemia, unspecified; J44.9 Chronic obstructive pulmonary disease, unspecified; G47.33 Obstructive sleep apnea (adult) (pediatric); Z99.81 Dependence on supplemental oxygen; K57.30 Diverticulosis of large intestine without perforation or abscess without bleeding; Z95.0 Presence of cardiac pacemaker; D64.9 Anemia, unspecified; E66.9 Obesity, unspecified; Z68.27 Body mass index [BMI] 27.0-27.9, adult; Z87.891 Personal history of nicotine dependence; E87.6 Hypokalemia; I25.119 Atherosclerotic heart disease of native coronary artery with unspecified angina pectoris; B95.3 Streptococcus pneumoniae as the cause of diseases classified elsewhere
CPT/HCPCS: 36415; 36600; 71045-TC-FY; 76775-TC; 80048; 80053; 81003; 81015; 82272; 82803; 83735; 83880; 84100; 85025; 87070; 87086; 87205; 87899; 93005; 93010; 93306-TC; 94640; 97116-GP; 97161-GP; 99285-25; G0378; J2794

== ENCOUNTER 2017-11-17 13:42 | Emergency (ER) | payer OTHER, BC ==
--- NOTE | 2017-11-17 14:11 | PDOC ---
History of Present Illness - General Chief Complaint: Blood Transfusion Stated Complaint: BLOOD TRANSFUSION Time Seen by Provider: 11/17/17 13:50 - History of Present Illness Initial Comments: 11/17/17 14:19 The patient is an 82 year old male with a history of HTN, HLD, CHF, COPD, CAD, DM who presents for evaluation of anemia from his PCP. The patient is very hard of hearing making history difficult. Per the patient and PCP, the patient was noted to have a hgb of 6.9 in the office and was sent in for transfusion. The patient states that he does not have any pain anywhere nor does he feel weak or lightheaded. The patient does have a history of UGI bleeding requiring transfusion in the past. He denies fevers, chills, SOB, chest pain, nausea, vomiting, abdominal pain, or changes with urination or bowel movements. Past History - Past Medical History Allergies/Adverse Reactions: Allergies Allergy/AdvReac Type Severity Reaction Status Date / Time Iodinated Contrast- Oral and Allergy Rash Verified 11/17/17 13:51 IV Dye [Iodinated Contrast Media - IV Dye] levofloxacin [From Levaquin] Allergy "RASH" Verified 11/17/17 13:51 Home Medications: Ambulatory Orders Atorvastatin Ca [Lipitor] 20 mg PO HS 12/03/12 Budesonide [Pulmicort 0.5 mg Nebulizer -] 1 neb NEB HS 12/03/12 Multivit-Min/FA/Lycopene/Lut [Centrum Silver Tablet] 1 each PO DAILY 12/03/12 Tiotropium [place] [Spiriva] 1 inh IH HS 12/03/12 Cyanocobalamin (Vitamin B-12) [Cyanocobalamin] 1,000 mcg PO DAILY 06/27/14 Cholecalciferol (Vitamin D3) [Vitamin D3 -] 2,000 unit PO DAILY 03/01/15 Risperidone [Risperdal] 1 mg PO BID 11/23/16 predniSONE [Deltasone -] 5 mg PO DAILY 11/23/16 Carvedilol [Coreg -] 6.25 mg PO BID #60 tablet 11/28/16 Albuterol Sulfate Inhaler - [Ventolin HFA Inhaler -] 1 - 2 inh PO QID PRN Aspirin Coated [Ecotrin -] 81 mg PO DAILY tablet.ec 11/14/17 Omeprazole 20 mg PO HS 11/17/17 Anemia: No Asthma: (EMPHYSEMA-NASAL 2L) Cancer: No Cardiac Disorders: Yes ("HEART DISEASE" atrioventricular block) CVA: No COPD: Yes (2-3L NC) CHF: Yes Dementia: No Diabetes: Yes GI Disorders: Yes (ACID REFLUX) Disorders: No HTN: Yes Hypercholesterolemia: Yes Liver Disease: No Seizures: No Thyroid Disease: No - Surgical History Abdominal Surgery: No Appendectomy: No Cardiac Surgery: Yes (PPM) Cholecystectomy: Yes Lung Surgery: No Neurologic Surgery: No Orthopedic Surgery: No - Immunization History Td Vaccination: No TDAP Vaccination: No Immunization Up to Date: No - Suicide/Smoking/Psychosocial Hx Smoking History: Never smoked Have you smoked in the past 12 months: No If you are a former smoker, when did you quit?: 10YRS AGO Information on smoking cessation initiated: No 'Breaking Loose' booklet given: 03/06/17 Hx Alcohol Use: No Drug/Substance Use Hx: No Substance Use Type: None Hx Substance Use Treatment: No Review of Systems - Review of Systems Comments:: 11/17/17 14:53 Constitutional: No fevers, chills, fatigue, malaise HEENT: No Rhinorrhea, nasal congestion, visual changes Cardiovascular: No chest pain, syncope, palpitations, lightheadedness Respiratory: No Cough, SOB, Hemoptysis, Gastrointestinal: No Abdominal pain, Nausea, Vomiting, Constipation, Diarrhea, Melena Genitourinary: No Dysuria, Frequency, Urgency, Hesitancy, Hematuria, Flank pain Musculoskeletal: No Myalgia, arthralgia Skin: No rashes, itching, bruising, pallor Neurologic: No Headache, Dizziness, Numbness, Weakness, or Tingling Psychiatric: No Hallucinations. No SI or HI *Physical Exam - Vital Signs Last Vital Signs Temp Pulse Resp BP Pulse Ox 97.2 F L 80 12 150/72 95 11/17/17 13:44 11/17/17 13:44 11/17/17 13:44 11/17/17 13:44 11/17/17 13:44 - Physical Exam Comments: 11/17/17 14:53 General Appearance: Nourished. No Apparent Distress HEENT: No Pharyngeal Erythema, Tonsillar Exudate, Tonsillar Erythema Neck: No Cervical Lymphadenopathy Respiratory/Chest: Lungs Clear, Normal Breath Sounds. No Crackles, Rales, Rhonchi, Wheezing Cardiovascular: Regular Rhythm, Regular Rate. No Murmur, Gallops, Rubs Gastrointestinal/Abdominal: Normal Bowel Sounds, Soft. No Guarding, Rebound, Tenderness Musculoskeletal: No CVA Tenderness Extremity: Normal Capillary Refill Integumentary: Normal Color, Dry, Warm Neurologic: Fully Oriented, Alert, Normal Mood/Affect, Normal Response, Heart Score/ECG Review #1 ECG reviewed & interpreted by me at: 16:08 (Atrial sensed ventricular paced rhythm) General ECG Interpretation: Normal Rate, Normal Intervals, No acute ischemic changes ED Treatment Course - LABORATORY CBC & Chemistry Diagram: 11/17/17 02:27 11/17/17 02:10 Medical Decision Making - Medical Decision Making 11/17/17 14:54 The patient is an 82 year old male with a history of HTN, HLD, CHF, COPD, CAD, DM who presents for evaluation of anemia from his PCP. Given the patient's history of UGI bleeds and reported history of anemia, we will obtain a cbc, cmp , coags, type and screen, ekg to evaluate further. We will continue to monitor and reassess. 11/17/17 16:38 CBC demonstrates a hgb of 9.2. CMP and EKG are unremarkable. The patient's hgb does not appear concentrated on lab work and the patient does not appear dehydrated. The patient does not meet transfusion criteria at this time. We discussed the case with the patient's primary Dr. Christiansen who is comfortable with the patient being sent back to his NH. We are comfortable discharging the patient home at this time. We discussed the results and the plan with the patient who voiced understanding and is agreeable. *DC/Admit/Observation/Transfer Diagnosis at time of Disposition: Anemia Qualifiers: Anemia type: unspecified type Qualified Code(s): D64.9 - Anemia, unspecified - Discharge Dispostion Disposition: HOME Condition at time of disposition: Good Admit: No - Referrals Referrals: Jena Whipple MD [Primary Care Provider] - - Patient Instructions Printed Discharge Instructions: Anemia Additional Instructions: Please return to the ER if you experience concerning or worsening symptoms including worsening chest pain, difficulty breathing or lightheadedness. Your lab results show that you do not require a transfusion. Please call to schedule a follow up appointment with your primary care provider within 2-3 days to further discuss your symptoms. - Post Discharge Activity
[2017-11-17 14:12] VITALS: TEMP 97.2; BMI 28.3
[2017-11-17 14:24] LABS: BASO % 0.6 % (0-2.0); EOS % 3.2 % (0-4.5); HEMATOCRIT 29.1 % (35.4-49); HEMOGLOBIN 9.2 GM/dL (11.7-16.9); LYMPH % 6.9 % (8-40); MCH 26.5 pg (25.7-33.7); MCHC 31.5 g/dl (32.0-35.9); MEAN PLT VOLUME 8.4 fl (7.5-11.1); MONO % 4.6 % (3.8-10.2); NEUT % 84.7 % (42.8-82.8); PLATELET COUNT 188 K/MM3 (134-434); RBC 3.47 M/mm3 (4.00-5.60); RDW 18.1 % (11.9-15.9); WHITE BLOOD COUNT 11.2 K/mm3 (4.0-10.0)
[2017-11-17 14:42] LABS: INR 1.12 (0.82-1.09); PROTHROMBIN TIME (PATIENT) 12.7 SEC (9.98-11.88)
[2017-11-17 14:57] LABS: ALK PHOS 72 U/L (45-117); ANION GAP 13 (8-16); BILIRUBIN,TOTAL 0.5 mg/dL (0.2-1.0); BLOOD UREA NITROGEN 35 mg/dL (7-18); CALCIUM 9.1 mg/dL (8.5-10.1); CHLORIDE 100 mmol/L (98-107); CO2 25 mmol/L (21-32); CREATININE 2.4 mg/dL (0.7-1.3); GLUCOSE,RANDOM 123 mg/dL (74-106); LIPASE 193 U/L (73-393); POTASSIUM 4.6 mmol/L (3.5-5.1); SGOT/AST 11 U/L (15-37); SGPT/ALT 17 U/L (12-78); SODIUM 138 mmol/L (136-145); TOT PROT 6.8 g/dl (6.4-8.2)
--- NOTE | 2017-11-17 15:19 | PDOC ---
Attending Attestation - Resident Resident Name: Jaydon Beltran - ED Attending Attestation I have performed the following: I have examined & evaluated the patient, The case was reviewed & discussed with the resident, I agree w/resident's findings & plan, Exceptions are as noted - HPI HPI: 11/17/17 15:17 82-year-old male with history of upper GI bleed sent from [facility] for transfusion in the setting of hemoglobin 6.2 seen on routine testing. - Physicial Exam PE: 11/17/17 15:18 Vital signs stable. Abdomen benign. - Medical Decision Making 11/17/17 15:18 Patient seen and evaluated with the resident. I agree with the overall evaluation, assessment, and management with the following summary of visit: 82-year-old male with anemia sent for transfusion from [facility]. Vital signs stable. Hemoglobin performed here is 9.2 without evidence of concentration or dehydration We'll discuss with primary team and dispo accordingly Heart Score/ECG Review #1 11/17/17 15:19 AV-paced without secondary signs of acute ischemic change
[2017-11-17 17:41] VITALS: BP 152/71; PULSE 84
--- NOTE | 2017-11-18 11:39 | EKG ---
Test Reason : Blood Pressure : / mmHG Vent. Rate : 074 BPM Atrial Rate : 074 BPM P-R Int : 168 ms QRS Dur : 178 ms QT Int : 446 ms P-R-T Axes : 000 -82 096 degrees QTc Int : 495 ms Atrial-sensed ventricular-paced rhythm ABNORMAL ECG WHEN COMPARED WITH ECG OF 06-NOV-2017 23:16, VENT. RATE HAS DECREASED BY 13 BPM Confirmed by ZEHRA ZAMORA, ROSINA ([id number]) on 11/18/2017 11:39:34 AM Referred By: Confirmed By:ROSINA SHAHID MD
== END 2017-11-17 19:05 | disposition home or self-care (01) ==
LOC: JER 13:42
DX: D64.9 Anemia, unspecified (principal); I25.10 Atherosclerotic heart disease of native coronary artery without angina pectoris; I11.0 Hypertensive heart disease with heart failure; I50.9 Heart failure, unspecified; E78.00 Pure hypercholesterolemia, unspecified; E11.9 Type 2 diabetes mellitus without complications; J43.8 Other emphysema; K21.9 Gastro-esophageal reflux disease without esophagitis; H91.93 Unspecified hearing loss, bilateral
CPT/HCPCS: 36415; 80053; 83690; 85025; 85610; 85730; 86850; 86900; 86901; 93005; 93010; 99283-25

== ENCOUNTER 2018-01-15 20:37 | Inpatient (IN) | payer OTHER, BC ==
--- NOTE | 2018-01-15 21:20 | PDOC ---
History of Present Illness - General History Source: Patient Exam Limitations: No Limitations - History of Present Illness Initial Comments: 01/15/18 22:27 Patient is an 82 year old male with a significant past medical history of HTN, HLD, CHF, COPD, CAD, DM, who presents to the ED with complaints of general weakness that occurred just prior to ED arrival. As per patients family, patient experienced an episode of collapse earlier today at 8pm, landing on his knees. They report this being the second time this month he has experienced a fall, prompting them to bring him into the ED for further evaluation. Patient reports experiencing increased general weakness and inability to sit up properly , with no other complaints. Denies chest pain, sob. Denies nausea, vomiting. Denies contact with sick individuals, out of state travelling. Denies any other symptoms. Allergies: Iodinated contrast. Levofloxacin. Social history: No smoking. No alcohol. No illicit drugs. Surgical history: PPM, Cholecystectomy, PMD: Dr. Rocha <Andres Lindo - Last Filed: 01/15/18 22:27> <Lolly Davila - Last Filed: 01/16/18 06:16> - General Chief Complaint: Injury Stated Complaint: FALL Time Seen by Provider: 01/15/18 20:57 Past History <Andres Lindo - Last Filed: 01/15/18 22:27> - Past Medical History Anemia: No Asthma: (EMPHYSEMA-NASAL 2L) Cancer: No Cardiac Disorders: Yes ("HEART DISEASE") CVA: No COPD: Yes (2-3L NC) CHF: Yes Dementia: No Diabetes: No GI Disorders: Yes (ACID REFLUX) Disorders: No HTN: Yes Hypercholesterolemia: Yes Liver Disease: No Seizures: No Thyroid Disease: No - Surgical History Abdominal Surgery: No Appendectomy: No Cardiac Surgery: Yes (PPM) Cholecystectomy: Yes Lung Surgery: No Neurologic Surgery: No Orthopedic Surgery: No - Immunization History Td Vaccination: No TDAP Vaccination: No Immunization Up to Date: No - Suicide/Smoking/Psychosocial Hx Smoking History: Never smoked Have you smoked in the past 12 months: No If you are a former smoker, when did you quit?: 10YRS AGO Information on smoking cessation initiated: No 'Breaking Loose' booklet given: 03/06/17 Hx Alcohol Use: No Drug/Substance Use Hx: No Substance Use Type: None Hx Substance Use Treatment: No <GiovanniMilenaLolly - Last Filed: 01/16/18 06:16> - Past Medical History Allergies/Adverse Reactions: Allergies Allergy/AdvReac Type Severity Reaction Status Date / Time Iodinated Contrast- Oral and Allergy Rash Verified 11/17/17 13:51 IV Dye [Iodinated Contrast Media - IV Dye] levofloxacin [From Levaquin] Allergy "RASH" Verified 11/17/17 13:51 Home Medications: Ambulatory Orders Atorvastatin Ca [Lipitor] 20 mg PO HS 12/03/12 Budesonide [Pulmicort 0.5 mg Nebulizer -] 1 neb NEB HS 12/03/12 Multivit-Min/FA/Lycopene/Lut [Centrum Silver Tablet] 1 each PO DAILY 12/03/12 Tiotropium [place] [Spiriva] 1 inh IH HS 12/03/12 Cyanocobalamin (Vitamin B-12) [Cyanocobalamin] 1,000 mcg PO DAILY 06/27/14 Cholecalciferol (Vitamin D3) [Vitamin D3 -] 2,000 unit PO DAILY 03/01/15 Risperidone [Risperdal] 1 mg PO BID 11/23/16 predniSONE [Deltasone -] 5 mg PO DAILY 11/23/16 Carvedilol [Coreg -] 6.25 mg PO BID #60 tablet 11/28/16 Albuterol Sulfate Inhaler - [Ventolin HFA Inhaler -] 1 - 2 inh PO QID PRN Aspirin Coated [Ecotrin -] 81 mg PO DAILY tablet.ec 11/14/17 Omeprazole 20 mg PO HS 11/17/17 Review of Systems - Review of Systems Able to Perform ROS?: Yes Comments:: 01/15/18 22:27 GENERAL/CONSTITUTIONAL: +General Weakness. No fever or chills. HEAD, EYES, EARS, NOSE AND THROAT: No change in vision. No ear pain or discharge. No sore throat. GASTROINTESTINAL: No nausea, vomiting, diarrhea or constipation. GENITOURINARY: No dysuria, frequency, or change in urination. CARDIOVASCULAR: No chest pain or shortness of breath. RESPIRATORY: No cough, wheezing, or hemoptysis. MUSCULOSKELETAL: No joint or muscle swelling or pain. No neck or back pain. SKIN: No rash NEUROLOGIC: No headache, vertigo, loss of consciousness, or change in strength/ sensation. ENDOCRINE: No increased thirst. No abnormal weight change. HEMATOLOGIC/LYMPHATIC: No anemia, easy bleeding, or history of blood clots. ALLERGIC/IMMUNOLOGIC: No hives or skin allergy. All Other Systems: Reviewed and Negative <GuichoAndres - Last Filed: 01/15/18 22:27> *Physical Exam - Vital Signs Last Vital Signs Temp Pulse Resp BP Pulse Ox 97.7 F 73 19 101/54 100 01/15/18 20:55 01/15/18 20:55 01/15/18 20:55 01/15/18 20:55 01/15/18 20:55 <Andres Lindo - Last Filed: 01/15/18 22:27> - Vital Signs Last Vital Signs Temp Pulse Resp BP Pulse Ox 97.7 F 73 19 101/54 100 01/15/18 20:55 01/15/18 20:55 01/15/18 20:55 01/15/18 20:55 01/15/18 20:55 - Physical Exam Comments: GENERAL: Awake, alert, and oriented to person and place, in no acute distress. Poor hygiene. HEAD: No signs of trauma EYES: PERRLA, EOMI, sclera anicteric, conjunctiva clear ENT: Auricles normal inspection, hearing grossly normal, nares patent, oropharynx clear without exudates. Moist mucosa NECK: Normal ROM, supple, no lymphadenopathy, JVD, or masses LUNGS: Breath sounds equal, clear to auscultation bilaterally. No wheezes, and no crackles HEART: Regular rate and rhythm, normal S1 and S2, no murmurs, rubs or gallops ABDOMEN: Soft, nontender, normoactive bowel sounds. No guarding, no rebound. No masses. Large RUQ scar, well-healed. EXTREMITIES: Normal range of motion, no edema. No clubbing or cyanosis. No cords, erythema, or tenderness NEUROLOGICAL: Cranial nerves II through XII grossly intact. Normal speech. Motor and sensation intact. SKIN: Warm, Dry, normal turgor, no rashes or lesions noted. <Lolly Davila - Last Filed: 01/16/18 06:16> ED Treatment Course - LABORATORY CBC & Chemistry Diagram: 01/16/18 05:22 01/16/18 05:22 <Lolly Davila - Last Filed: 01/16/18 06:16> Medical Decision Making - Medical Decision Making 01/16/18 02:101 Pt found to have UTI. Will admit to hospitalist, covering Dr. Rocha. <Lolly Davila - Last Filed: 01/16/18 06:16> *DC/Admit/Observation/Transfer - Attestations Scribe Attestion: 01/15/18 22:28 Documentation prepared by Andres Lindo, acting as medical pathology teacher for Lolly Davila MD, /DO. <Andres Lindo - Last Filed: 01/15/18 22:27> - Discharge Dispostion Admit: Yes <Lolly Daivla - Last Filed: 01/16/18 06:16> Diagnosis at time of Disposition: UTI (urinary tract infection) Qualifiers: Urinary tract infection type: site unspecified Hematuria presence: without hematuria Qualified Code(s): N39.0 - Urinary tract infection, site not specified Fall Qualifiers: Encounter type: initial encounter Qualified Code(s): W19.XXXA - Unspecified fall, initial encounter - Discharge Dispostion Condition at time of disposition: Stable
[2018-01-15 22:44] LABS: BASO % 0.8 % (0-2.0); EOS % 2.3 % (0-4.5); HEMATOCRIT 29.8 % (35.4-49); HEMOGLOBIN 10.2 GM/dL (11.7-16.9); LYMPH % 8.3 % (8-40); MCH 28.6 pg (25.7-33.7); MCHC 34.4 g/dl (32.0-35.9); MEAN CELL VOLUME 83.3 fl (80-96); MEAN PLT VOLUME 8.8 fl (7.5-11.1); MONO % 6.1 % (3.8-10.2); NEUT % 82.5 % (42.8-82.8); PLATELET COUNT 179 K/MM3 (134-434); RBC 3.58 M/mm3 (4.00-5.60); RDW 16.7 % (11.9-15.9); WHITE BLOOD COUNT 10.3 K/mm3 (4.0-10.0)
[2018-01-15 23:22] LABS: ALBUMIN 3.7 g/dl (3.4-5.0); ANION GAP 7 (8-16); BILIRUBIN,TOTAL 0.7 mg/dL (0.2-1.0); BLOOD UREA NITROGEN 26 mg/dL (7-18); CALCIUM 9.5 mg/dL (8.5-10.1); CHLORIDE 103 mmol/L (98-107); CO2 29 mmol/L (21-32); CREATININE 2.4 mg/dL (0.7-1.3); GLUCOSE,RANDOM 109 mg/dL (74-106); POTASSIUM 4.2 mmol/L (3.5-5.1); SGOT/AST 8 U/L (15-37); SGPT/ALT 9 U/L (12-78); SODIUM 139 mmol/L (136-145); TOT PROT 7.3 g/dl (6.4-8.2)
[2018-01-15 23:24] LABS: ALK PHOS 89 U/L (45-117)
[2018-01-16] MEDS ORDERED: SODIUM CHLORIDE 1,000 ML IV STA (00:33)
[2018-01-16 01:15] LABS: URINE APPEARANCE CLOUDY; URINE BILIRUBIN NEGATIVE (<2.0 mg/dL); URINE BLOOD 1+ (NEGATIVE); URINE COLOR YELLOW; URINE GLUCOSE (UA) NEGATIVE (NEGATIVE); URINE KETONE NEGATIVE (NEGATIVE); URINE LEUK ESTERASE 3+ (NEGATIVE); URINE NITRITE NEGATIVE (NEGATIVE); URINE PROTEIN 2+ (NEGATIVE); URINE UROBILINOGEN NEGATIVE mg/dL (0.2-1.0)
[2018-01-16 01:48] LABS: EPI CELLS RARE /HPF (FEW); URINE BACTERIA RARE /hpf (NONE SEEN); URINE HYALINE CAST 1 /lpf; URINE MUCUS RARE; YEAST FEW
[2018-01-16] MEDS ORDERED: CEFTRIAXONE 1 GM in DEXTROSE 5%-WATER - 50 ML IVPB ONE (02:01)
--- NOTE | 2018-01-16 03:21 | HP ---
Admitting History and Physical - Primary Care Physician PCP: George Rocha - Admission Chief Complaint: Generalized Weakness, Frequent Falls, Unable to Ambulate History of Present Illness: 82 y/o man from home. Who presents to the ED with generalized weakness, difficulty ambulating, frequent falls.Patient is [place], limited HPI obtained, Per ED record: As per patients family, patient experienced an episode of collapse earlier today at 8pm, landing on his knees. They report this being the second time this month he has experienced a fall, prompting them to bring him into the ED for further evaluation. Patient reports experiencing increased general weakness and inability to sit up properly, with no other complaints. Denies chest pain, sob. Denies nausea, vomiting. Denies contact with sick individuals, out of state travelling. Denies any other symptoms. 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: Other (decreased hearing) Cardiovascular: Yes: CAD, CHF, HTN, Hyperlipdemia, Other (Right external carotid artery stenosis, tachycardia PPM) Pulmonary: Yes: COPD, O2 Dependent, Other (pulmonary nodules h/o invasive Aspergillosis) Gastrointestinal: Yes: Diverticulitis (as per today's CT), Diverticulosis, GERD , Other (left inguinal hernia, duodinitis, colon polyps) Renal/: Yes: Renal Inusuff, BPH, Hematuria, Other (bladder dysfunction) Heme/Onc: Yes: B12 Deficiency Infectious Disease: Yes: Other (h/o invasive pulmonary aspergillosis) Musculoskeletal: Yes: Chronic low back pain, Osteoarthritis, Other (dupuytren contracture) ENT: Yes: Other ([place]) Endocrine: Yes: Diabetes Mellitus - Past Surgical History Past Surgical History: Yes: Cholecystectomy (open), Permanent Pacemaker - Smoking History Smoking history: Former smoker Have you smoked in the past 12 months: No If you are a former smoker, when did you quit?: 10YRS AGO - Alcohol/Substance Use Hx Alcohol Use: No History of Substance Use: reports: None - Social History Usual Living Arrangement: Yes: With Spouse, With Child ADL: Family Assistance Occupation: , 4 children History of Recent Travel: No Home Medications - Allergies Allergies/Adverse Reactions: Allergies Allergy/AdvReac Type Severity Reaction Status Date / Time Iodinated Contrast- Oral and Allergy Rash Verified 11/17/17 13:51 IV Dye [Iodinated Contrast Media - IV Dye] levofloxacin [From Levaquin] Allergy "RASH" Verified 11/17/17 13:51 - Home Medications Home Medications: Ambulatory Orders Atorvastatin Ca [Lipitor] 20 mg PO HS 12/03/12 Budesonide [Pulmicort 0.5 mg Nebulizer -] 1 neb NEB HS 12/03/12 Multivit-Min/FA/Lycopene/Lut [Centrum Silver Tablet] 1 each PO DAILY 12/03/12 Tiotropium [place] [Spiriva] 1 inh IH HS 12/03/12 Cyanocobalamin (Vitamin B-12) [Cyanocobalamin] 1,000 mcg PO DAILY 06/27/14 Cholecalciferol (Vitamin D3) [Vitamin D3 -] 2,000 unit PO DAILY 03/01/15 Risperidone [Risperdal] 1 mg PO BID 11/23/16 predniSONE [Deltasone -] 5 mg PO DAILY 11/23/16 Carvedilol [Coreg -] 6.25 mg PO BID #60 tablet 11/28/16 Albuterol Sulfate Inhaler - [Ventolin HFA Inhaler -] 1 - 2 inh PO QID PRN Aspirin Coated [Ecotrin -] 81 mg PO DAILY tablet.ec 11/14/17 Omeprazole 20 mg PO HS 11/17/17 Family Disease History - Family Disease History Family Disease History: Other: Father ( 71 ? colon cancer), Mother ( 62 : "enlarged heart"), Sister (: CVA and ND), Daughter (CVA) Review of Systems - Review of Systems Constitutional: reports: Malaise, Weakness Eyes: reports: No Symptoms HENT: reports: No Symptoms Neck: reports: No Symptoms Cardiovascular: reports: No Symptoms Respiratory: reports: SOB Gastrointestinal: reports: No Symptoms Genitourinary: reports: No Symptoms Breasts: reports: No Symptoms Reported Musculoskeletal: reports: No Symptoms Integumentary: reports: No Symptoms Neurological: reports: Unsteady Gait, Weakness Endocrine: reports: No Symptoms Hematology/Lymphatic: reports: No Symptoms Psychiatric: reports: No Symptoms Physical Examination Vital Signs: Vital Signs Temperature 97.7 F 01/15/18 20:55 Pulse Rate 73 01/15/18 20:55 Respiratory Rate 19 01/15/18 20:55 Blood Pressure 101/54 01/15/18 20:55 O2 Sat by Pulse Oximetry (%) 100 01/15/18 20:55 Constitutional: Yes: No Distress, Calm, Obese, Poor Hygeine, Other (Unkempt) Eyes: Yes: Conjunctiva Clear, PERRL HENT: Yes: WNL, Atraumatic, Normocephalic Neck: Yes: WNL, Supple, Trachea Midline Cardiovascular: Yes: Pulse Irregular, S1, S2 Respiratory: Yes: WNL, Regular, CTA Bilaterally Gastrointestinal: Yes: Normal Bowel Sounds, Soft, Abdomen, Obese ...Rectal Exam: Yes: Deferred Renal/: Yes: WNL Breast(s): Yes: WNL Musculoskeletal: Yes: WNL Extremities: Yes: WNL Edema: No Peripheral Pulses WNL: Yes Neurological: Yes: Alert, Confusion, Other (Gait not observed) ...Motor Strength: WNL Psychiatric: Yes: Alert Labs: CBC, BMP 01/15/18 20:53 01/15/18 20:53 Laboratory Results - last 24 hr 01/15/18 01/15/18 01/16/18 20:53 20:53 00:57 WBC 10.3 H RBC 3.58 L Hgb 10.2 L D Hct 29.8 L MCV 83.3 MCH 28.6 MCHC 34.4 RDW 16.7 H Plt Count 179 MPV 8.8 Neutrophils % 82.5 Lymphocytes % 8.3 D Monocytes % 6.1 Eosinophils % 2.3 Basophils % 0.8 Sodium 139 Potassium 4.2 Chloride 103 Carbon Dioxide 29 Anion Gap 7 L BUN 26 H D Creatinine 2.4 H Creat Clearance w eGFR 25.98 Random Glucose 109 H Calcium 9.5 Total Bilirubin 0.7 D AST 8 L D ALT 9 L D Alkaline Phosphatase 89 D Creatine Kinase 32 L Troponin I 0.02 Total Protein 7.3 Albumin 3.7 D Urine Color Yellow Urine Appearance Cloudy Urine pH 5.0 Ur Specific [place] 1.016 Urine Protein 2+ H Urine Glucose (UA) Negative Urine Ketones Negative Urine Blood 1+ H Urine Nitrite Negative Urine Bilirubin Negative Urine Urobilinogen Negative Ur Leukocyte Esterase 3+ H D Urine WBC (Auto) 242 Urine RBC (Auto) 5 Ur Epithelial Cells Rare Urine Bacteria Rare Hyaline Casts 1 Urine Mucus Rare Urine Yeast Few Intake & Output 01/13/18 01/14/18 01/15/1818 23:59 23:59 23:59 23:59 Weight 81.647 kg Imaging - Results Chest X-ray: Image Reviewed EKG: Image Reviewed (Paced Rhythm) Problem List - Problems (1) Generalized weakness Assessment/Plan: - Likely secondary to UTI vs Dehydration - Continue gentle IVF - Appreciate PT eval - Fall Precautions - Monitor CBC, BMP - Monitor vitals Code(s): R53.1 - WEAKNESS (2) Fall Assessment/Plan: - See above - Per patient he ambulates with a cane - Appreciate Case Management for SNF or STR - Fall Precautions Code(s): W19.XXXA - UNSPECIFIED FALL, INITIAL ENCOUNTER Qualifiers: Encounter type: initial encounter Qualified Code(s): W19.XXXA - Unspecified fall, initial encounter (3) UTI (urinary tract infection) Assessment/Plan: - UA- +3 leukocyte esterase, +1 blood, 242 WBCs - Urine culture pending - Rocephin given in ED, will continue - Monitor vitals - Monitor CBC Code(s): N39.0 - URINARY TRACT INFECTION, SITE NOT SPECIFIED Qualifiers: Urinary tract infection type: site unspecified Hematuria presence: without hematuria Qualified Code(s): N39.0 - Urinary tract infection, site not specified (4) Acute on chronic renal failure Assessment/Plan: - Cr 2.4, at baseline - Avoid nephrotoxin drugs - Monitor BMP Code(s): N17.9 - ACUTE KIDNEY FAILURE, UNSPECIFIED; N18.9 - CHRONIC KIDNEY DISEASE, UNSPECIFIED Qualifiers: Chronic kidney disease stage: stage 3 (moderate) (5) COPD (chronic obstructive pulmonary disease) Assessment/Plan: - Stable - Duonebs prn - Continue Spiriva, Pulmicort - O2 Code(s): J44.9 - CHRONIC OBSTRUCTIVE PULMONARY DISEASE, UNSPECIFIED Qualifiers: COPD type: COPD with acute exacerbation Qualified Code(s): J44.1 - Chronic obstructive pulmonary disease with (acute) exacerbation (6) Cardiac pacemaker in situ Assessment/Plan: - Stable - EKG- paced rhythm Code(s): Z95.0 - PRESENCE OF CARDIAC PACEMAKER (7) Diabetes mellitus Assessment/Plan: - Stable - BGMs - ISS - Monitor renal function Code(s): E11.9 - TYPE 2 DIABETES MELLITUS WITHOUT COMPLICATIONS Qualifiers: Diabetes mellitus type: type 2 Diabetes mellitus care home insulin use: without remote computer terminal operator use Diabetes mellitus complication status: with unspecified complications Qualified Code(s): E11.8 - Type 2 diabetes mellitus with unspecified complications (8) ASHD (arteriosclerotic heart disease) Assessment/Plan: - Stable - Continue Asa, Coreg - EKG- Paced Rhythm - Chest Xray- image reviewed, awaiting report Code(s): I25.10 - ATHSCL HEART DISEASE OF [place] CORONARY ARTERY W/O ANG PCTRS (9) Hyperlipidemia Assessment/Plan: - Continue Lipitor - Monitor LFTs Code(s): E78.5 - HYPERLIPIDEMIA, UNSPECIFIED Qualifiers: Hyperlipidemia type: pure hypercholesterolemia Qualified Code(s): E78.00 - Pure hypercholesterolemia, unspecified (10) Hypertension Assessment/Plan: - Stable - Monitor BP - Continue Coreg - Monitor renal function Code(s): I10 - ESSENTIAL (PRIMARY) HYPERTENSION Qualifiers: Hypertension type: essential hypertension Qualified Code(s): I10 - Essential (primary) hypertension (11) Obesity Assessment/Plan: - suboptimal - Carb Control Diet Code(s): E66.9 - OBESITY, UNSPECIFIED (12) Decreased hearing Assessment/Plan: - FU with [facility] outpatient as indicated Code(s): H91.90 - UNSPECIFIED HEARING LOSS, UNSPECIFIED EAR Qualifiers: Laterality: bilateral Qualified Code(s): H91.93 - Unspecified hearing loss , bilateral (13) DVT prophylaxis Assessment/Plan: - OOB - SCDs - Heparin SQ Code(s): LLY4807 - Assessment/Plan 82 y/o man Placed on Observation for Generalized Weakness secondary to UTI, Frequent Falls, Unable to Ambulate Visit type - Emergency Visit Emergency Visit: Yes ED Registration Date: 01/15/18 Care time: The patient presented to the Emergency Department on the above date and was hospitalized for further evaluation of their emergent condition. - New Patient This patient is new to me today: Yes Date on this admission: 01/16/18 - Critical Care Critical Care patient: No Hospitalist Screening - Colonoscopy Questionnaire Colonoscopy Questionnaire: Colonoscopy Questionnaire - Patient: 50 - 75 years old and never had a screening colonoscopy: Unknown History of colon or rectal polyps, or CA: Unknown History of IBD, Crohn's disease or UC: Unknown History of abdominal radiation therapy as a child: Unknown - Relative: 1 with colon or rectal CA, or polyps at age 60 or younger: Unknown Colon or rectal CA diagnosed at age 45 or younger: Unknown Multiple relatives with colon or rectal CA: Unknown - Outcome: Screening Result: Negative Screen
[2018-01-16] MEDS ORDERED: ALBUTEROL SO4 18 GM HFA INHALER IH PRN (03:57)
[2018-01-16] MEDS ORDERED: CEFTRIAXONE 1 GM/50 ML BAG ONE (04:37)
[2018-01-16 05:34] LABS: BASO % 0.8 % (0-2.0); HEMATOCRIT 28.8 % (35.4-49); HEMOGLOBIN 9.9 GM/dL (11.7-16.9); LYMPH % 15.7 % (8-40); MCH 28.8 pg (25.7-33.7); MCHC 34.5 g/dl (32.0-35.9); MEAN CELL VOLUME 83.5 fl (80-96); MONO % 9.1 % (3.8-10.2); NEUT % 71.4 % (42.8-82.8); PLATELET COUNT 160 K/MM3 (134-434); RBC 3.45 M/mm3 (4.00-5.60); RDW 16.6 % (11.9-15.9); WHITE BLOOD COUNT 7.8 K/mm3 (4.0-10.0)
[2018-01-16 05:55] LABS: ANION GAP 9 (8-16); BLOOD UREA NITROGEN 27 mg/dL (7-18); CALCIUM 8.9 mg/dL (8.5-10.1); CHLORIDE 107 mmol/L (98-107); CO2 24 mmol/L (21-32); CREATININE 2.3 mg/dL (0.7-1.3); GLUCOSE,RANDOM 108 mg/dL (74-106); SODIUM 140 mmol/L (136-145)
[2018-01-16 05:56] LABS: MAGNESIUM 1.8 mg/dL (1.8-2.4); POTASSIUM 4.5 mmol/L (3.5-5.1)
[2018-01-16] MEDS: risperiDONE 1 MG TABLET (FP) PO SCH ×2 (10:16→21:40)
[2018-01-16] MEDS: ASPIRIN COATED 81 MG TABLET.EC PO SCH (10:16)
[2018-01-16] MEDS: CARVEDILOL 6.25 MG TABLET (FP) PO SCH ×2 (10:18→21:40)
[2018-01-16] MEDS: HEPARIN NA (PORCINE) 5,000 UNITS/ML 1ML VIAL SQ SCH ×2 (10:19→21:40)
[2018-01-16] MEDS: MULTIVITAMINS THER W-MINERALS COMBO TABLET (FP) PO SCH (10:19)
--- NOTE | 2018-01-16 11:34 | EKG ---
Test Reason : Blood Pressure : / mmHG Vent. Rate : 077 BPM Atrial Rate : 077 BPM P-R Int : 152 ms QRS Dur : 184 ms QT Int : 464 ms P-R-T Axes : 000 -85 087 degrees QTc Int : 525 ms Atrial-sensed ventricular-paced rhythm ABNORMAL ECG WHEN COMPARED WITH ECG OF 17-NOV-2017 14:39, VENT. RATE HAS INCREASED BY 3 BPM Confirmed by HARINDER ZAMORA, LOU ([id number]) on 01/16/2018 11:34:05 AM Referred By: Confirmed By:LOU PIZANO MD
[2018-01-16] MEDS: PANTOPRAZOLE 20 MG TABLET (FP) PO SCH (21:40)
[2018-01-16] MEDS: ATORVASTATIN CA 20 MG TABLET (FP) PO SCH (21:40)
[2018-01-16] MEDS: TIOTROPIUM BROMIDE 18 MCG CAPSULES IH SCH (21:41)
[2018-01-16] MEDS: BUDESONIDE 0.5 MG/2 ML INH SUSP VIAL NEB SCH (21:45)
[2018-01-17 07:42] LABS: BASO % 1.3 % (0-2.0); EOS % 10.5 % (0-4.5); HEMATOCRIT 26.5 % (35.4-49); HEMOGLOBIN 9.1 GM/dL (11.7-16.9); LYMPH % 19.5 % (8-40); MCH 28.7 pg (25.7-33.7); MCHC 34.4 g/dl (32.0-35.9); MEAN CELL VOLUME 83.5 fl (80-96); MEAN PLT VOLUME 9.2 fl (7.5-11.1); MONO % 9.4 % (3.8-10.2); NEUT % 59.3 % (42.8-82.8); PLATELET COUNT 154 K/MM3 (134-434); RBC 3.17 M/mm3 (4.00-5.60); RDW 16.3 % (11.9-15.9); WHITE BLOOD COUNT 5.8 K/mm3 (4.0-10.0)
[2018-01-17 08:48] LABS: ALBUMIN 3.4 g/dl (3.4-5.0); ANION GAP 8 (8-16); BLOOD UREA NITROGEN 27 mg/dL (7-18); CALCIUM 8.6 mg/dL (8.5-10.1); CHLORIDE 104 mmol/L (98-107); CO2 26 mmol/L (21-32); GLUCOSE,RANDOM 94 mg/dL (74-106); MAGNESIUM 1.9 mg/dL (1.8-2.4); POTASSIUM 3.8 mmol/L (3.5-5.1); SODIUM 138 mmol/L (136-145)
[2018-01-17 08:53] LABS: ALK PHOS 76 U/L (45-117); BILIRUBIN,TOTAL 0.7 mg/dL (0.2-1.0); CREATININE 2.4 mg/dL (0.7-1.3); SGOT/AST 9 U/L (15-37); SGPT/ALT 8 U/L (12-78); TOT PROT 6.9 g/dl (6.4-8.2)
--- NOTE | 2018-01-17 09:39 | PN ---
Physical Exam: SUBJECTIVE: Patient seen and examined OBJECTIVE: Vital Signs Period Temp Pulse Resp BP Sys/Mata Pulse Ox Last 24 Hr 98.5 F-98.7 F 68-82 18-20 109-144/71-80 96-96 GENERAL: The patient is awake, alert, in no acute distress. HEAD: Normal with no signs of trauma. LUNGS: Breath sounds equal, clear to auscultation bilaterally, no wheezes, no crackles, no accessory muscle use. HEART: Regular rate and rhythm, S1, S2 without murmur, rub or gallop. ABDOMEN: Soft, nontender, nondistended, normoactive bowel sounds, no guarding, no rebound EXTREMITIES: Grossly long fingernails and toenails, thick, fungal, curled NEUROLOGICAL: Cranial nerves II through XII grossly intact. Normal speech, gait not observed. Laboratory Results - last 24 hr 01/17/18 01/17/18 06:42 06:42 WBC 5.8 RBC 3.17 L Hgb 9.1 L Hct 26.5 L MCV 83.5 MCH 28.7 MCHC 34.4 RDW 16.3 H Plt Count 154 MPV 9.2 Neutrophils % 59.3 Lymphocytes % 19.5 D Monocytes % 9.4 Eosinophils % 10.5 H D Basophils % 1.3 Sodium 138 Potassium 3.8 Chloride 104 Carbon Dioxide 26 Anion Gap 8 BUN 27 H Creatinine 2.4 H Creat Clearance w eGFR 25.98 Random Glucose 94 Calcium 8.6 Magnesium 1.9 Total Bilirubin 0.7 AST 9 L ALT 8 L Alkaline Phosphatase 76 Total Protein 6.9 Albumin 3.4 Active Medications Generic Name Dose Route Start Last Admin Trade Name Freq PRN Reason Stop Dose Admin Albuterol Sulfate 2 puff 01/16/18 03:57 Ventolin Hfa Inhaler - IH Q6H PRN SHORT OF BREATH/WHEEZING Aspirin 81 mg 01/16/18 10:00 01/16/18 10:16 Ecotrin - PO 81 mg DAILY DINESH Administration Atorvastatin Calcium 20 mg 01/16/18 22:00 01/16/18 21:40 Lipitor - PO 20 mg HS DINESH Administration Budesonide 1 amp 01/16/18 22:00 01/16/18 21:45 Pulmicort 0.5 Mg Nebulizer - NEB 1 amp HS DINESH Administration Carvedilol 6.25 mg 01/16/18 10:00 01/16/18 21:40 Coreg - PO 6.25 mg BID DINESH Administration Furosemide 20 mg 01/17/18 10:00 Lasix - PO DAILY [facility] Heparin Sodium (Porcine) 5,000 unit 01/16/18 10:00 01/16/18 21:40 Heparin - SQ 5,000 unit BID DINESH Administration Ceftriaxone Sodium 1 gm/ 50 mls @ 200 mls/hr 01/17/18 10:00 Dextrose IVPB DAILY [facility] Protocol Multivitamins/Minerals 1 each 01/16/18 10:00 01/16/18 10:19 Theragran-M PO 1 each DAILY DINESH Administration Pantoprazole Sodium 20 mg 01/16/18 22:00 01/16/18 21:40 Protonix - PO 20 mg HS DINESH Administration Risperidone 1 mg 01/16/18 10:00 01/16/18 21:40 Risperdal - PO 1 mg BID DINESH Administration Tamsulosin HCl 0.8 mg 01/18/18 10:00 Flomax - PO DAILY@0830 [facility] Tiotropium [place] 1 puff 01/16/18 22:00 01/16/18 21:41 Spiriva - IH 1 puff HS [facility] Administration ASSESSMENT/PLAN 82 year-old male with a PMH significant for HTN, HLD, CAD, carotid artery stenosis, systolic HF s/p PPM, COPD on O2, GERD, CKD, h/o upper GI bleed, BPH and recurrent obstructive uropathy. Placed on observation for generalized weakness and several falls, inability to ambulate. UTI --pyuria --initial urine culture contaminated, repeat pending --continue empiric ceftriaxone (ay #2) BPH Recurrent obstructive uropathy --US shows no obstruction, no hydro, no post-void residual --had previously been on flomax, restarted CKD --Cr 2.4, was 1.7 a year ago --renal consult requested Hypertension --BP stable --continue carvedilol Hyperlipidemia --continue Lipitor Coronary artery disease Carotid artery stenosis --continue ASA, Lipitor, Carvedilol Systolic heart failure s/p PPM --continue PO Lasix 20mg daily COPD on O2 --continue budesonide nebs, Spiriva, albuterol MDI h/o upper GI bleed GERD --protonix FEN Fluids: PO intake adequate Electrolytes: replete as indicated Nutrition: low sodium DVT prophylaxis: subq heparin Physical therapy Dispo: continues to require inpatient care. Full code. Visit type - Emergency Visit Emergency Visit: Yes ED Registration Date: 01/16/18 Care time: The patient presented to the Emergency Department on the above date and was hospitalized for further evaluation of their emergent condition. - New Patient This patient is new to me today: Yes Date on this admission: 01/17/18 - Critical Care Critical Care patient: No
[2018-01-17] MEDS ORDERED: cefTRIAXone SODIUM 1 GM VIAL ONE (10:58)
[2018-01-17] MEDS ORDERED: DEXTROSE 5%-WATER - 50 ML IVPB ONE (10:58)
[2018-01-17] MEDS: CEFTRIAXONE 1 GM in DEXTROSE 5%-WATER - 50 ML IVPB SCH (11:01)
[2018-01-17] MEDS: risperiDONE 1 MG TABLET (FP) PO SCH ×2 (11:05→21:01)
[2018-01-17] MEDS: FUROSEMIDE 20 MG TABLET (FP) PO SCH (11:05)
[2018-01-17] MEDS: HEPARIN NA (PORCINE) 5,000 UNITS/ML 1ML VIAL SQ SCH ×2 (11:05→21:04)
[2018-01-17] MEDS: CARVEDILOL 6.25 MG TABLET (FP) PO SCH ×2 (11:05→21:00)
[2018-01-17] MEDS: MULTIVITAMINS THER W-MINERALS COMBO TABLET (FP) PO SCH (11:05)
[2018-01-17] MEDS: ASPIRIN COATED 81 MG TABLET.EC PO SCH (11:08)
[2018-01-17 11:43] LABS: URINE APPEARANCE SLCLOUDY; URINE BILIRUBIN NEGATIVE (<2.0 mg/dL); URINE BLOOD 1+ (NEGATIVE); URINE COLOR YELLOW; URINE GLUCOSE (UA) NEGATIVE (NEGATIVE); URINE KETONE NEGATIVE (NEGATIVE); URINE NITRITE NEGATIVE (NEGATIVE); URINE UROBILINOGEN NEGATIVE mg/dL (0.2-1.0)
[2018-01-17 11:45] LABS: URINE LEUK ESTERASE 3+ (NEGATIVE); URINE PROTEIN 2+ (NEGATIVE)
[2018-01-17 11:48] LABS: EPI CELLS RARE /HPF (FEW); URINE MUCUS RARE
[2018-01-17] MEDS ORDERED: AZITHROMYCIN IVPB 500 MG in DEXTROSE 5%-WATER - 250 ML IVPB ONE (15:00)
[2018-01-17 15:43] VITALS: BMI 27.1
--- NOTE | 2018-01-17 15:43 | CON.NEP ---
Consult Consult Specialty:: nephrology Reason for Consultation:: azotemia - History of Present Illness Chief Complaint: weakness History of Present Illness: c/o generalized weakness, being evaluated reports he collapsed onto his knees referred for eval of azotemia - sonogram shows small kidneys , non-obstructing stone,small left simple cyst no hydro s creat has been more than 2.0 since oct previously s creat was under 2.0 for months CKD- non obstructive r/o acute worsening 2/2 fluid deficit PMHx htn hld chf copd cad dm Plan- r/o acute component - History Source History Provided By: Medical Record - Past Medical History 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: Other (decreased hearing) Cardio/Vascular: Yes: CAD, CHF, HTN, Hyperlipdemia, Other (Right external carotid artery stenosis, tachycardia PPM) Pulmonary: Yes: COPD, O2 Dependent, Other (pulmonary nodules h/o invasive Aspergillosis) Gastrointestinal: Yes: Diverticulitis (as per today's CT), Diverticulosis, GERD , Other (left inguinal hernia, duodinitis, colon polyps) Renal/: Yes: Renal Inusuff, BPH, Hematuria, Other (bladder dysfunction) Infectious Disease: Yes: Other (h/o invasive pulmonary aspergillosis) Musculoskeletal: Yes: Chronic low back pain, Osteoarthritis, Other (dupuytren contracture) ENT: Yes: Other (UPPER [place]AGIT) Endocrine: Yes: Diabetes Mellitus - Past Surgical History Past Surgical History: Yes: Cholecystectomy (open), Permanent Pacemaker - Alcohol/Substance Use Hx Alcohol Use: No History of Substance Use: reports: None - Smoking History Smoking history: Former smoker Have you smoked in the past 12 months: No If you are a former smoker, when did you quit?: 10YRS AGO - Social History Usual Living Arrangement: With Child ADL: Family Assistance Occupation: , 4 children History of Recent Travel: No Home Medications - Allergies Allergies/Adverse Reactions: Allergies Allergy/AdvReac Type Severity Reaction Status Date / Time Iodinated Contrast- Oral and Allergy Rash Verified 11/17/17 13:51 IV Dye [Iodinated Contrast Media - IV Dye] levofloxacin [From Levaquin] Allergy "RASH" Verified 11/17/17 13:51 - Home Medications Home Medications: Ambulatory Orders Atorvastatin Ca [Lipitor] 20 mg PO HS 12/03/12 Budesonide [Pulmicort 0.5 mg Nebulizer -] 1 neb NEB HS 12/03/12 Multivit-Min/FA/Lycopene/Lut [Centrum Silver Tablet] 1 each PO DAILY 12/03/12 Tiotropium [place] [Spiriva] 1 inh IH HS 12/03/12 Cyanocobalamin (Vitamin B-12) [Cyanocobalamin] 1,000 mcg PO DAILY 06/27/14 Cholecalciferol (Vitamin D3) [Vitamin D3 -] 2,000 unit PO DAILY 03/01/15 Risperidone [Risperdal] 1 mg PO BID 11/23/16 predniSONE [Deltasone -] 5 mg PO DAILY 11/23/16 Carvedilol [Coreg -] 6.25 mg PO BID #60 tablet 11/28/16 Albuterol Sulfate Inhaler - [Ventolin HFA Inhaler -] 1 - 2 inh PO QID PRN Aspirin Coated [Ecotrin -] 81 mg PO DAILY tablet.ec 11/14/17 Omeprazole 20 mg PO HS 11/17/17 Family Disease History - Family Disease History Family Disease History: Other: Father ( 71 ? colon cancer), Mother ( 62 : "enlarged heart"), Sister (: CVA and NM), Daughter (CVA) Nephrology Consult - Height Height: 5 ft 5 in - Weight Weight: 163 lb 6.4 oz - BMI Body Mass Index (BMI): 27.1 - Lab Results CBC,BMP: CBC, BMP 01/17/18 06:42 01/17/18 06:42 Anion Gap: Anion Gap Anion Gap 8 (8-16) 01/17/18 06:42 - Physical Examination Vital Signs: Vital Signs Temperature 98.0 F 01/17/18 14:37 Pulse Rate 70 01/17/18 14:37 Respiratory Rate 18 01/17/18 14:37 Blood Pressure 118/87 01/17/18 14:37 O2 Sat by Pulse Oximetry (%) 96 01/16/18 20:51 Assessment/Plan generalized weakness being evaluated s/p collapse onto his knees azotemia - small kidneys , non-obstructing stone,small left simple cyst no hydro s creat has been more than 2.0 since feb previously s creat was under 2.0 for months CKD- non obstructive r/o acute worsening 2/2 fluid deficit PMHx htn hld chf copd cad dm Plan- r/o acute omponent
[2018-01-17] MEDS: TIOTROPIUM BROMIDE 18 MCG CAPSULES IH SCH (21:00)
[2018-01-17] MEDS: PANTOPRAZOLE 20 MG TABLET (FP) PO SCH (21:00)
[2018-01-17] MEDS: ATORVASTATIN CA 20 MG TABLET (FP) PO SCH (21:00)
[2018-01-17] MEDS: BUDESONIDE 0.5 MG/2 ML INH SUSP VIAL NEB SCH (21:45)
[2018-01-18] MEDS ORDERED: PT OWN MED DRAWER 7, Y5N ONE (09:58)
[2018-01-18] MEDS ORDERED: DEXTROSE 5%-WATER - 50 ML IVPB ONE (09:58)
[2018-01-18] MEDS ORDERED: cefTRIAXone SODIUM 1 GM VIAL ONE (09:58)
[2018-01-18] MEDS: FUROSEMIDE 20 MG TABLET (FP) PO SCH (10:35)
[2018-01-18] MEDS: CARVEDILOL 6.25 MG TABLET (FP) PO SCH ×2 (10:35→22:38)
[2018-01-18] MEDS: ASPIRIN COATED 81 MG TABLET.EC PO SCH (10:35)
[2018-01-18] MEDS: TAMSULOSIN HCL 0.4 MG CAP.ER.24H (FP) PO SCH (10:35)
[2018-01-18] MEDS: MULTIVITAMINS THER W-MINERALS COMBO TABLET (FP) PO SCH (10:35)
[2018-01-18] MEDS: risperiDONE 1 MG TABLET (FP) PO SCH ×2 (10:35→22:38)
[2018-01-18] MEDS: CEFTRIAXONE 1 GM in DEXTROSE 5%-WATER - 50 ML IVPB SCH (10:36)
[2018-01-18] MEDS: HEPARIN NA (PORCINE) 5,000 UNITS/ML 1ML VIAL SQ SCH ×2 (10:37→22:39)
[2018-01-18] MEDS: AZITHROMYCIN IVPB 250 MG in DEXTROSE 5%-WATER - 250 ML IVPB SCH (12:06)
--- NOTE | 2018-01-18 12:34 | CONSULT ---
Consult - text type - Consultation Consultation Note: Patient is an alert oriented white male with severe hypertrophic nails of both hands and feet. Patien has poor hygeine of hands and feet vss, tmax 97.9 nvsgi, pulses are palpable, +severe hypertrophic toe nails x 10 with erythema, +edema, +tenderness, -drainage, -cellulitis severe tender onychomycosis of feet non compliant Patient vehemnetly refused debridement of nails and nurse was present when he refused. Advised to have nails cut susana on both hands and feet. Patient shoeuld be considered for lamasil. topical nail siolution as well as possible laser for treatment after initial debridement. Will sign off case. Please re- consult if patient agrees to debridement of severe hypertrophic nails.
--- NOTE | 2018-01-18 14:04 | PN ---
Progress Note, Physician Chief Complaint: Mr Mariusz horn cp, sob, n/v. - Current Medication List Current Medications: Active Medications Albuterol Sulfate (Ventolin Hfa Inhaler -) 2 puff IH Q6H PRN PRN Reason: SHORT OF BREATH/WHEEZING Aspirin (Ecotrin -) 81 mg PO DAILY [facility] Last Admin: 01/18/18 10:35 Dose: 81 mg Atorvastatin Calcium (Lipitor -) 20 mg PO HS [facility] Last Admin: 01/17/18 21:00 Dose: 20 mg Budesonide (Pulmicort 0.5 Mg Nebulizer -) 1 amp NEB HS [facility] Last Admin: 01/17/18 21:45 Dose: 1 amp Carvedilol (Coreg -) 6.25 mg PO BID [facility] Last Admin: 01/18/18 10:35 Dose: 6.25 mg Furosemide (Lasix -) 20 mg PO DAILY [facility] Last Admin: 01/18/18 10:35 Dose: 20 mg Heparin Sodium (Porcine) (Heparin -) 5,000 unit SQ BID [facility] Last Admin: 01/18/18 10:37 Dose: 5,000 unit Ceftriaxone Sodium 1 gm/ (Dextrose) 50 mls @ 200 mls/hr IVPB DAILY [facility] PRN Reason: Protocol Last Admin: 01/18/18 10:36 Dose: 200 mls/hr Azithromycin 250 mg/ Dextrose 250 mls @ 250 mls/hr IVPB DAILY [facility] Stop: 01/21/18 10:59 Last Admin: 01/18/18 12:06 Dose: 250 mls/hr Multivitamins/Minerals (Theragran-M) 1 each PO DAILY [facility] Last Admin: 01/18/18 10:35 Dose: 1 each Pantoprazole Sodium (Protonix -) 20 mg PO HS [facility] Last Admin: 01/17/18 21:00 Dose: 20 mg Risperidone (Risperdal -) 1 mg PO BID [facility] Last Admin: 01/18/18 10:35 Dose: 1 mg Tamsulosin HCl (Flomax -) 0.8 mg PO DAILY@0830 [facility] Last Admin: 01/18/18 10:35 Dose: 0.8 mg Tiotropium [place] (Spiriva -) 1 puff IH [facility] Last Admin: 01/17/18 21:00 Dose: 1 puff - Objective Vital Signs: Vital Signs Temperature 36.6 C 01/18/18 12:00 Pulse Rate 72 01/18/18 12:00 Respiratory Rate 18 01/18/18 12:00 Blood Pressure 111/55 01/18/18 12:00 O2 Sat by Pulse Oximetry (%) 96 01/17/18 21:00 Constitutional: Yes: Well Nourished, No Distress, Calm Cardiovascular: Yes: Regular Rate and Rhythm. No: Gallop, Murmur, Rub Respiratory: Yes: Regular, CTA Bilaterally. No: Rales, Rhonchi, Wheezes Gastrointestinal: Yes: Normal Bowel Sounds, Soft. No: Distention, Tenderness Extremities: Yes: WNL Edema: No Labs: CBC, BMP 01/17/18 06:42 01/17/18 06:42 Problem List - Problems (1) Pneumonia Assessment/Plan: -patient with infiltrate and leukocytosis -continue rocephin and zithromax Code(s): J18.9 - PNEUMONIA, UNSPECIFIED ORGANISM Qualifiers: Laterality: right Lung location: lower lobe of lung (2) UTI (urinary tract infection) Assessment/Plan: -urinalysis positive but culture negative -however repeat culture sent after antibiotics, might be false negative -also consider sterile pyuria, but improved with antibiotics -continue rocephin for full course Code(s): N39.0 - URINARY TRACT INFECTION, SITE NOT SPECIFIED Qualifiers: Urinary tract infection type: acute cystitis Hematuria presence: without hematuria Qualified Code(s): N30.00 - Acute cystitis without hematuria (3) Acute on chronic renal failure Assessment/Plan: -? if chronic -appreciate nephrology assistance -ultrasound reviewed Code(s): N17.9 - ACUTE KIDNEY FAILURE, UNSPECIFIED; N18.9 - CHRONIC KIDNEY DISEASE, UNSPECIFIED Qualifiers: Chronic kidney disease stage: stage 3 (moderate) (4) BPH (benign prostatic hyperplasia) Assessment/Plan: -continue flomax Code(s): N40.0 - BENIGN PROSTATIC HYPERPLASIA WITHOUT LOWER URINRY TRACT SYMP (5) COPD (chronic obstructive pulmonary disease) Assessment/Plan: -not in exacerbation -continue current management Code(s): J44.9 - CHRONIC OBSTRUCTIVE PULMONARY DISEASE, UNSPECIFIED Qualifiers: COPD type: COPD with acute lower respiratory infection Qualified Code(s): J44.0 - Chronic obstructive pulmonary disease with acute lower respiratory infection (6) Hyperlipidemia Assessment/Plan: -continue statin Code(s): E78.5 - HYPERLIPIDEMIA, UNSPECIFIED Qualifiers: Hyperlipidemia type: pure hypercholesterolemia Qualified Code(s): E78.00 - Pure hypercholesterolemia, unspecified (7) Hypertension Assessment/Plan: -controlled -continue current regimen Code(s): I10 - ESSENTIAL (PRIMARY) HYPERTENSION Qualifiers: Hypertension type: essential hypertension Qualified Code(s): I10 - Essential (primary) hypertension (8) Fall Assessment/Plan: -PT consulted -may benefit from SNF Code(s): W19.XXXA - UNSPECIFIED FALL, INITIAL ENCOUNTER Qualifiers: Encounter type: initial encounter Qualified Code(s): W19.XXXA - Unspecified fall, initial encounter (9) CHF (congestive heart failure) Assessment/Plan: -continue lasix -not in exacerbation Code(s): I50.9 - HEART FAILURE, UNSPECIFIED Qualifiers: Heart failure type: combined systolic and diastolic Heart failure chronicity: chronic Qualified Code(s): I50.42 - Chronic combined systolic ( congestive) and diastolic (congestive) heart failure
[2018-01-18] MEDS: BUDESONIDE 0.5 MG/2 ML INH SUSP VIAL NEB SCH (21:30)
[2018-01-18] MEDS: PANTOPRAZOLE 20 MG TABLET (FP) PO SCH (22:38)
[2018-01-18] MEDS: TIOTROPIUM BROMIDE 18 MCG CAPSULES IH SCH (22:38)
[2018-01-18] MEDS: ATORVASTATIN CA 20 MG TABLET (FP) PO SCH (22:38)
[2018-01-19 07:47] LABS: BASO % 1.3 % (0-2.0); EOS % 7.3 % (0-4.5); HEMOGLOBIN 8.8 GM/dL (11.7-16.9); LYMPH % 18.6 % (8-40); MCH 28.2 pg (25.7-33.7); MEAN CELL VOLUME 82.8 fl (80-96); MEAN PLT VOLUME 9.3 fl (7.5-11.1); MONO % 9.7 % (3.8-10.2); NEUT % 63.1 % (42.8-82.8); PLATELET COUNT 153 K/MM3 (134-434); RBC 3.13 M/mm3 (4.00-5.60); RDW 16.8 % (11.9-15.9); WHITE BLOOD COUNT 6.1 K/mm3 (4.0-10.0)
[2018-01-19 08:46] LABS: CALCIUM 8.3 mg/dL (8.5-10.1); CHLORIDE 107 mmol/L (98-107); POTASSIUM 3.7 mmol/L (3.5-5.1); SODIUM 140 mmol/L (136-145)
[2018-01-19 08:50] LABS: ANION GAP 7 (8-16); BLOOD UREA NITROGEN 35 mg/dL (7-18); CO2 26 mmol/L (21-32); CREATININE 2.4 mg/dL (0.7-1.3); GLUCOSE,RANDOM 90 mg/dL (74-106); PHOSPHOROUS 4.5 mg/dL (2.5-4.9)
[2018-01-19] MEDS ORDERED: PT OWN MED DRAWER 7, Y5N ONE (11:00)
[2018-01-19] MEDS ORDERED: cefTRIAXone SODIUM 1 GM VIAL ONE (11:00)
[2018-01-19] MEDS ORDERED: DEXTROSE 5%-WATER - 50 ML IVPB ONE (11:00)
[2018-01-19] MEDS: HEPARIN NA (PORCINE) 5,000 UNITS/ML 1ML VIAL SQ SCH (11:02)
[2018-01-19] MEDS: FUROSEMIDE 20 MG TABLET (FP) PO SCH (11:03)
[2018-01-19] MEDS: TAMSULOSIN HCL 0.4 MG CAP.ER.24H (FP) PO SCH (11:03)
[2018-01-19] MEDS: CARVEDILOL 6.25 MG TABLET (FP) PO SCH (11:03)
[2018-01-19] MEDS: AZITHROMYCIN IVPB 250 MG in DEXTROSE 5%-WATER - 250 ML IVPB SCH (11:03)
[2018-01-19] MEDS: risperiDONE 1 MG TABLET (FP) PO SCH (11:03)
[2018-01-19] MEDS: ASPIRIN COATED 81 MG TABLET.EC PO SCH (11:03)
[2018-01-19] MEDS: MULTIVITAMINS THER W-MINERALS COMBO TABLET (FP) PO SCH (11:03)
[2018-01-19] MEDS: CEFTRIAXONE 1 GM in DEXTROSE 5%-WATER - 50 ML IVPB SCH (13:05)
--- NOTE | 2018-01-19 13:08 | DS ---
Physical Examination Vital Signs: Vital Signs Temperature 36.8 C 01/19/18 12:00 Pulse Rate 82 01/19/18 12:00 Respiratory Rate 20 01/19/18 12:00 Blood Pressure 117/65 01/19/18 12:00 O2 Sat by Pulse Oximetry (%) 100 01/18/18 21:00 Constitutional: Yes: Well Nourished, No Distress, Calm Cardiovascular: Yes: Regular Rate and Rhythm. No: Gallop, Murmur, Rub Respiratory: Yes: Regular, CTA Bilaterally. No: Rales, Rhonchi, Wheezes Gastrointestinal: Yes: Normal Bowel Sounds, Soft. No: Distention, Tenderness Extremities: Yes: WNL Edema: No Labs: CBC, BMP 01/19/18 06:15 01/19/18 06:15 Discharge Summary Reason For Visit: URINARY TRACT INFECTION,FALL Current Active Problems CHF (congestive heart failure) (Acute) DVT prophylaxis (Acute) Fall (Acute) Generalized weakness (Acute) UTI (urinary tract infection) (Acute) Hospital Course: (1) Pneumonia Code(s): J18.9 - PNEUMONIA, UNSPECIFIED ORGANISM Qualifiers: Laterality: right Lung location: lower lobe of lung (2) UTI (urinary tract infection) Code(s): N39.0 - URINARY TRACT INFECTION, SITE NOT SPECIFIED Qualifiers: Urinary tract infection type: acute cystitis Hematuria presence: without hematuria Qualified Code(s): N30.00 - Acute cystitis without hematuria (3) Acute on chronic renal failure Code(s): N17.9 - ACUTE KIDNEY FAILURE, UNSPECIFIED; N18.9 - CHRONIC KIDNEY DISEASE, UNSPECIFIED Qualifiers: Chronic kidney disease stage: stage 3 (moderate) (4) BPH (benign prostatic hyperplasia) Code(s): N40.0 - BENIGN PROSTATIC HYPERPLASIA WITHOUT LOWER URINRY TRACT SYMP (5) COPD (chronic obstructive pulmonary disease) Code(s): J44.9 - CHRONIC OBSTRUCTIVE PULMONARY DISEASE, UNSPECIFIED Qualifiers: COPD type: COPD with acute lower respiratory infection Qualified Code(s): J44.0 - Chronic obstructive pulmonary disease with acute lower respiratory infection (6) Hyperlipidemia Code(s): E78.5 - HYPERLIPIDEMIA, UNSPECIFIED Qualifiers: Hyperlipidemia type: pure hypercholesterolemia Qualified Code(s): E78.00 - Pure hypercholesterolemia, unspecified (7) Hypertension Code(s): I10 - ESSENTIAL (PRIMARY) HYPERTENSION Qualifiers: Hypertension type: essential hypertension Qualified Code(s): I10 - Essential (primary) hypertension (8) Fall Code(s): W19.XXXA - UNSPECIFIED FALL, INITIAL ENCOUNTER Qualifiers: Encounter type: initial encounter Qualified Code(s): W19.XXXA - Unspecified fall, initial encounter (9) CHF (congestive heart failure) Code(s): I50.9 - HEART FAILURE, UNSPECIFIED Qualifiers: Heart failure type: combined systolic and diastolic Heart failure chronicity: chronic Qualified Code(s): I50.42 - Chronic combined systolic ( congestive) and diastolic (congestive) heart failure Mr Vee is an 82 year old male who comes in with weakness and found to have a UTI by urinalysis. He also had an infiltrate on his chest x-ray that is chronic , however considering his presentation was started on both rocephin and zithromax. He was noted to have worsening renal function and was seen by nephrology. His renal function remained stable here. He did well on antibiotics. He was seen by PT and felt he would be safest going to SNF for further rehab. His urine cultures at first were contaminated, his second were negative however this was on antibiotics so may be a false negative. Will discharge him on augmentin. He is safe for discharge to SNF. 31 minutes spent in preparation of this discharge Condition: Stable - Instructions Diet, Activity, Other Instructions: sodium controlled diet. Up with assistance, further activity per PT at SNF Referrals: George Rocha MD [Staff Physician] - Marianela Posada MD [Staff Physician] - Disposition: RESIDENTIAL FACILITY - Home Medications Comprehensive Discharge Medication List: Ambulatory Orders Atorvastatin Ca [Lipitor] 20 mg PO HS 12/03/12 Budesonide [Pulmicort 0.5 mg Nebulizer -] 1 neb NEB HS 12/03/12 Multivit-Min/FA/Lycopene/Lut [Centrum Silver Tablet] 1 each PO DAILY 12/03/12 Tiotropium [place] [Spiriva] 1 inh IH HS 12/03/12 Cyanocobalamin (Vitamin B-12) [Cyanocobalamin] 1,000 mcg PO DAILY 06/27/14 Cholecalciferol (Vitamin D3) [Vitamin D3 -] 2,000 unit PO DAILY 03/01/15 Risperidone [Risperdal] 1 mg PO BID 11/23/16 Carvedilol [Coreg -] 6.25 mg PO BID #60 tablet 11/28/16 Albuterol Sulfate Inhaler - [Ventolin HFA Inhaler -] 1 - 2 inh PO QID PRN Aspirin Coated [Ecotrin -] 81 mg PO DAILY tablet.ec 11/14/17 Omeprazole 20 mg PO HS 11/17/17 Amoxicillin/Potassium Clav [Augmentin 875-125 Tablet] 1 each PO BID 7 Days tablet 01/19/18 Furosemide [Lasix -] 20 mg PO DAILY tablet 01/19/18 Tamsulosin HCl [Flomax -] 0.8 mg PO DAILY@0830 cap.er.24h 01/19/18
--- NOTE | 2018-01-19 13:23 | PN ---
Progress Note, Physician Chief Complaint: The patient seen in his room. This is an 82 y/o male who was admitted with generalized weakness, and with history of "he collapsed onto his knees" Has h/o CKD, Hyperlipidemia, HTN, COPD, CHF, Coronary artery disease, Type 2 DM. Maintains good urine output. - Current Medication List Current Medications: Active Medications Albuterol Sulfate (Ventolin Hfa Inhaler -) 2 puff IH Q6H PRN PRN Reason: SHORT OF BREATH/WHEEZING Aspirin (Ecotrin -) 81 mg PO DAILY [facility] Last Admin: 01/19/18 11:03 Dose: 81 mg Atorvastatin Calcium (Lipitor -) 20 mg PO [facility] Last Admin: 01/18/18 22:38 Dose: 20 mg Budesonide (Pulmicort 0.5 Mg Nebulizer -) 1 amp NEB [facility] Last Admin: 01/18/18 21:30 Dose: 1 amp Carvedilol (Coreg -) 6.25 mg PO BID [facility] Last Admin: 01/19/18 11:03 Dose: 6.25 mg Furosemide (Lasix -) 20 mg PO DAILY [facility] Last Admin: 01/19/18 11:03 Dose: 20 mg Heparin Sodium (Porcine) (Heparin -) 5,000 unit SQ BID [facility] Last Admin: 01/19/18 11:02 Dose: 5,000 unit Ceftriaxone Sodium 1 gm/ (Dextrose) 50 mls @ 200 mls/hr IVPB DAILY [facility] PRN Reason: Protocol Last Admin: 01/19/18 13:05 Dose: 200 mls/hr Azithromycin 250 mg/ Dextrose 250 mls @ 250 mls/hr IVPB DAILY [facility] Stop: 01/21/18 10:59 Last Admin: 01/19/18 11:03 Dose: 250 mls/hr Multivitamins/Minerals (Theragran-M) 1 each PO DAILY [facility] Last Admin: 01/19/18 11:03 Dose: 1 each Pantoprazole Sodium (Protonix -) 20 mg PO HS [facility] Last Admin: 01/18/18 22:38 Dose: 20 mg Risperidone (Risperdal -) 1 mg PO BID [facility] Last Admin: 01/19/18 11:03 Dose: 1 mg Tamsulosin HCl (Flomax -) 0.8 mg PO DAILY@0830 [facility] Last Admin: 01/19/18 11:03 Dose: 0.8 mg Tiotropium [place] (Spiriva -) 1 puff IH HS [facility] Last Admin: 01/18/18 22:38 Dose: 1 puff - Objective Vital Signs: Vital Signs Temperature 98.2 F 01/19/18 12:00 Pulse Rate 82 01/19/18 12:00 Respiratory Rate 20 01/19/18 12:00 Blood Pressure 117/65 01/19/18 12:00 O2 Sat by Pulse Oximetry (%) 100 01/18/18 21:00 Constitutional: Yes: No Distress, Calm, Pallor Eyes: Yes: Conjunctiva Clear HENT: Yes: Normocephalic Neck: Yes: Trachea Midline Respiratory: Yes: CTA Bilaterally, Diminished Gastrointestinal: Yes: Soft Labs: CBC, BMP 01/19/18 06:15 01/19/18 06:15 Problem List - Problems (1) CHF (congestive heart failure) Code(s): I50.9 - HEART FAILURE, UNSPECIFIED Qualifiers: Heart failure type: combined systolic and diastolic Heart failure chronicity: chronic Qualified Code(s): I50.42 - Chronic combined systolic ( congestive) and diastolic (congestive) heart failure (2) Fall Code(s): W19.XXXA - UNSPECIFIED FALL, INITIAL ENCOUNTER Qualifiers: Encounter type: initial encounter Qualified Code(s): W19.XXXA - Unspecified fall, initial encounter (3) Generalized weakness Code(s): R53.1 - WEAKNESS (4) Acute on chronic renal failure Code(s): N17.9 - ACUTE KIDNEY FAILURE, UNSPECIFIED; N18.9 - CHRONIC KIDNEY DISEASE, UNSPECIFIED Qualifiers: Chronic kidney disease stage: stage 3 (moderate) (5) Anemia Code(s): D64.9 - ANEMIA, UNSPECIFIED Qualifiers: Anemia type: unspecified type Qualified Code(s): D64.9 - Anemia, unspecified (6) BPH (benign prostatic hyperplasia) Code(s): N40.0 - BENIGN PROSTATIC HYPERPLASIA WITHOUT LOWER URINRY TRACT SYMP (7) COPD (chronic obstructive pulmonary disease) Code(s): J44.9 - CHRONIC OBSTRUCTIVE PULMONARY DISEASE, UNSPECIFIED Qualifiers: COPD type: COPD with acute lower respiratory infection Qualified Code(s): J44.0 - Chronic obstructive pulmonary disease with acute lower respiratory infection Assessment/Plan This is an 82 y/o male admitted with h/o weakness and fall. Has LAURA, superimposed on CKD. Multiple co-morbid conditions including, Hypertension, Hyperlipidemia, DM2, CAD, COPD, CHF. The patient's renal functions are seen to be stable since admission. The minimal increase in azotemia compared to the remote past lab values may reflect progression of his underlying microvascular renal disease ( DM2, Atherosclerosis, HTN ) No specific therapy at this point. Anemia seems out of proportion to the degree of his renal dysfunction. Thank you. Will follow with you. Marianela Posada MD
[2018-01-19 15:01] VITALS: BP 115/64; PULSE 81; TEMP 98.9
== END 2018-01-19 17:29 | DRG 689 ==
LOC: JER 20:37 → JERBED 01-16 03:06 → J8W 01-16 07:40
PROVIDERS: ADMIT Internal Medicine; ATTEND Internal Medicine
DX: N39.0 Urinary tract infection, site not specified (principal); J18.9 Pneumonia, unspecified organism; N17.9 Acute kidney failure, unspecified; I13.0 Hypertensive heart and chronic kidney disease with heart failure and stage 1 through stage 4 chronic kidney disease, or unspecified chronic kidney disease; I50.42 Chronic combined systolic (congestive) and diastolic (congestive) heart failure; E86.0 Dehydration; R53.1 Weakness; J44.9 Chronic obstructive pulmonary disease, unspecified; Z95.0 Presence of cardiac pacemaker; I25.10 Atherosclerotic heart disease of native coronary artery without angina pectoris; E78.5 Hyperlipidemia, unspecified; E11.22 Type 2 diabetes mellitus with diabetic chronic kidney disease; H91.93 Unspecified hearing loss, bilateral; N18.3 Chronic kidney disease, stage 3 (moderate); N40.0 Benign prostatic hyperplasia without lower urinary tract symptoms; N13.9 Obstructive and reflux uropathy, unspecified; I65.29 Occlusion and stenosis of unspecified carotid artery; K21.9 Gastro-esophageal reflux disease without esophagitis; E66.9 Obesity, unspecified; Z68.27 Body mass index [BMI] 27.0-27.9, adult
CPT/HCPCS: 36415; 71045-TC-FY; 76775-TC; 76856-TC; 80048; 80053; 81003; 81015; 82550; 82570; 83735; 84100; 84300; 84443; 84484; 84540; 85025; 87040; 87086; 93005; 93010; 94640; 97116-GP; 97161-GP; 99282-25; J1644; J2794; J7030

== ENCOUNTER 2018-06-01 18:00 | Inpatient (IN) | payer OTHER, BC ==
--- NOTE | 2018-06-01 18:05 | PDOC ---
History of Present Illness - General Stated Complaint: SOB Time Seen by Provider: 06/01/18 18:04 - History of Present Illness Initial Comments: 06/01/18 19:39 The patient is an 83 year old male with a history of HTN, HLD, DM, CHF, COPD who presents for evaluation of shortness of breath. History is limited due to the patient's refusal to cooperate with exam however he states that he "can't breathe." EMS notes that the patient had acute worsening shortness of breath today prompting his presentation to the ED for further evaluation. The patient otherwise denies fevers, chills, chest pain, nausea, vomiting, abdominal pain, or changes with urination or bowel movements. Past History - Past Medical History Allergies/Adverse Reactions: Allergies Allergy/AdvReac Type Severity Reaction Status Date / Time Iodinated Contrast- Oral and Allergy Rash Verified 11/17/17 13:51 IV Dye [Iodinated Contrast Media - IV Dye] levofloxacin [From Levaquin] Allergy "RASH" Verified 11/17/17 13:51 Home Medications: Ambulatory Orders Atorvastatin Ca [Lipitor] 20 mg PO HS 12/03/12 Budesonide [Pulmicort 0.5 mg Nebulizer -] 1 neb NEB HS 12/03/12 Multivit-Min/FA/Lycopene/Lut [Centrum Silver Tablet] 1 each PO DAILY 12/03/12 Tiotropium [place] [Spiriva] 1 inh IH HS 12/03/12 Cyanocobalamin (Vitamin B-12) [Cyanocobalamin] 1,000 mcg PO DAILY 06/27/14 Cholecalciferol (Vitamin D3) [Vitamin D3 -] 2,000 unit PO DAILY 03/01/15 Risperidone [Risperdal] 1 mg PO HS 11/23/16 Albuterol Sulfate Inhaler - [Ventolin HFA Inhaler -] 1 - 2 inh PO QID PRN Aspirin Coated [Ecotrin -] 81 mg PO DAILY tablet.ec 11/14/17 Amlodipine Besylate 10 mg PO DAILY 06/01/18 Carvedilol [Coreg -] 12.25 mg PO BID 06/01/18 Losartan Potassium 100 mg PO DAILY 06/01/18 Pantoprazole Sodium [Protonix -] 10 mg PO DAILY 06/01/18 Prednisone 5 mg PO DAILY 06/01/18 Anemia: No Asthma: (EMPHYSEMA-NASAL 2L) Cancer: No Cardiac Disorders: Yes ("HEART DISEASE") CVA: No COPD: Yes (2-3L NC) CHF: Yes DVT: No Dementia: No Diabetes: No GI Disorders: Yes (ACID REFLUX) Disorders: No HTN: Yes Hypercholesterolemia: Yes Liver Disease: No Seizures: No Thyroid Disease: No - Surgical History Abdominal Surgery: No Appendectomy: No Cardiac Surgery: Yes (PPM) Cholecystectomy: Yes Lung Surgery: No Neurologic Surgery: No Orthopedic Surgery: No - Immunization History Td Vaccination: No TDAP Vaccination: No Immunization Up to Date: No - Suicide/Smoking/Psychosocial Hx Smoking History: Former smoker Have you smoked in the past 12 months: No If you are a former smoker, when did you quit?: 10YRS AGO 'Breaking Loose' booklet given: 03/06/17 Hx Alcohol Use: No Drug/Substance Use Hx: No Substance Use Type: None Hx Substance Use Treatment: No Review of Systems - Review of Systems Comments:: 06/01/18 19:41 Constitutional: No fevers, chills, fatigue, malaise HEENT: No Rhinorrhea, nasal congestion, visual changes Cardiovascular: No chest pain, syncope, palpitations, lightheadedness Respiratory: SOB. No Cough, Hemoptysis, Gastrointestinal: No Abdominal pain, Nausea, Vomiting, Constipation, Diarrhea, Melena Genitourinary: No Dysuria, Frequency, Urgency, Hesitancy, Hematuria, Flank pain Musculoskeletal: No Myalgia, arthralgia Skin: No rashes, itching, bruising, pallor Neurologic: No Headache, Dizziness, Numbness, Weakness, or Tingling Psychiatric: No Hallucinations. No SI or HI *Physical Exam - Physical Exam Comments: 06/01/18 19:42 General Appearance: Nourished. No Apparent Distress HEENT: No Pharyngeal Erythema, Tonsillar Exudate, Tonsillar Erythema Neck: No Cervical Lymphadenopathy Respiratory/Chest: Lungs Clear, Normal Breath Sounds. No Crackles, Rales, Rhonchi, Wheezing Cardiovascular: Regular Rhythm, Regular Rate. No Murmur, Gallops, Rubs Gastrointestinal/Abdominal: Normal Bowel Sounds, Soft. No Guarding, Rebound, Tenderness Musculoskeletal: No CVA Tenderness Extremity: Normal Capillary Refill Integumentary: Normal Color, Dry, Warm Neurologic: Fully Oriented, Alert, Normal Mood/Affect, Normal Response, Heart Score/ECG Review #1 ECG reviewed & interpreted by me at: 19:49 General ECG Interpretation: Normal Rate, No acute ischemic changes 06/01/18 19:49 Atrial-sensed ventricularly paced rhythm ED Treatment Course - LABORATORY CBC & Chemistry Diagram: 06/01/18 18:55 06/01/18 18:55 Medical Decision Making - Medical Decision Making 06/01/18 19:50 The patient is an 83 year old male with a history of HTN, HLD, DM, CHF, COPD who presents for evaluation of shortness of breath. Differential includes but is not limited to: ACS, COPD, CHF, UTI, Infectious, metabolic derangement. Given the patient's history and physical exam, we will obtain a cbc, cmp, troponin, bnp, ekg, chest plain film to evaluate further. We will treat in the meantime with duoneb, prednisone, lasix and continue to monitor and reassess while here in the ED. 06/01/18 20:39 CBC, cmp are unremarkable or unchanged. Troponin is unremarkable. BNP is elevated to 4000s. Chest plain film demonstrates pulmonary congestion. UA demonstrates positive leuk esteras with elevated wbc consistent with a UTI. We will treat with ceftriaxone here in the ED and the patient will require admission for further management. We discussed the case with the admitting team who accepted the patient for admission. *DC/Admit/Observation/Transfer Diagnosis at time of Disposition: Acute on chronic combined systolic and diastolic congestive heart failure UTI (urinary tract infection) Qualifiers: Urinary tract infection type: site unspecified Hematuria presence: without hematuria Qualified Code(s): N39.0 - Urinary tract infection, site not specified COPD (chronic obstructive pulmonary disease) Qualifiers: COPD type: unspecified COPD Qualified Code(s): J44.9 - Chronic obstructive pulmonary disease, unspecified - Discharge Dispostion Condition at time of disposition: Stable Decision to Admit order: Yes - Referrals - Patient Instructions - Post Discharge Activity
[2018-06-01] MEDS ORDERED: ALBUTEROL SO4 2.5/IPRATROPIUM 0.5 INH SOL 3 ML VIAL.NEB. NEB ONE ×2 (18:36→18:42)
[2018-06-01] MEDS ORDERED: predniSONE 20 MG TABLET (UD) PO ONE (18:40)
[2018-06-01 19:07] LABS: EOS % 6.3 % (0-4.5); HEMOGLOBIN 11.3 GM/dL (11.7-16.9); LYMPH % 11.9 % (8-40); MCH 28.1 pg (25.7-33.7); MCHC 33.3 g/dl (32.0-35.9); MEAN CELL VOLUME 84.4 fl (80-96); MEAN PLT VOLUME 8.7 fl (7.5-11.1); NEUT % 72.8 % (42.8-82.8); PLATELET COUNT 211 K/MM3 (134-434); RBC 4.03 M/mm3 (4.00-5.60); RDW 17.9 % (11.9-15.9); WHITE BLOOD COUNT 7.6 K/mm3 (4.0-10.0)
[2018-06-01] MEDS ORDERED: predniSONE 20 MG TABLET (UD) ONE (19:07)
[2018-06-01 19:10] LABS: URINE APPEARANCE CLEAR; URINE BILIRUBIN NEGATIVE (<2.0 mg/dL); URINE COLOR STRAW; URINE GLUCOSE (UA) NEGATIVE (NEGATIVE); URINE KETONE NEGATIVE (NEGATIVE); URINE NITRITE NEGATIVE (NEGATIVE); URINE UROBILINOGEN NEGATIVE mg/dL (0.2-1.0)
[2018-06-01 19:14] LABS: URINE LEUK ESTERASE 2+ (NEGATIVE); URINE PROTEIN 2+ (NEGATIVE)
[2018-06-01 19:17] LABS: EPI CELLS RARE /HPF (FEW); URINE MUCUS RARE; YEAST RARE
[2018-06-01 19:31] LABS: ALBUMIN 3.5 g/dl (3.4-5.0); ANION GAP 8 MMOL/L (8-16); BILIRUBIN,TOTAL 0.6 mg/dL (0.2-1.0); BLOOD UREA NITROGEN 29 mg/dL (7-18); CALCIUM 9.3 mg/dL (8.5-10.1); CHLORIDE 105 mmol/L (98-107); CO2 26 mmol/L (21-32); CREATININE 2.1 mg/dL (0.7-1.3); GLUCOSE,RANDOM 112 mg/dL (74-106); POTASSIUM 3.8 mmol/L (3.5-5.1); SGOT/AST 7 U/L (15-37); SGPT/ALT 13 U/L (12-78); SODIUM 139 mmol/L (136-145); TOT PROT 7.1 g/dl (6.4-8.2)
[2018-06-01 19:34] LABS: ALK PHOS 84 U/L (45-117); N-TERMINAL BNP 4666.18 pg/ml (5-450)
[2018-06-01] MEDS ORDERED: CEFTRIAXONE 1 GM in DEXTROSE 5%-WATER - 100 ML IVPB ONE (20:02)
[2018-06-01] MEDS ORDERED: FUROSEMIDE 40 MG/4 ML INJECTABLE VIAL IVPUSH ONE (20:02)
--- NOTE | 2018-06-01 20:12 | PDOC ---
Attending Attestation - Resident Resident Name: RubyJaydon - ED Attending Attestation I have performed the following: I have examined & evaluated the patient, The case was reviewed & discussed with the resident, I agree w/resident's findings & plan, Exceptions are as noted - HPI HPI: 06/01/18 20:11 83 yo male p/w shortness of breath and has a history of copd and chf 06/01/18 20:36 - Physicial Exam PE: 06/01/18 20:36 frail appearing 83 yo male ,slightly disheleved p/w sob head ncat eyes eomi neck no jvd lungs scant wheezing cvs rrr s1s2 abd nontender ext no pitting edema appreciated skin warm and dry neuro alert,feels too short of breath to talk - Medical Decision Making 06/01/18 20:40 negative trop no acute ischemia on ekg ,it showed atrial sensed ventricular paced rhythm bnp>4000 pt given IV lasix and bronchodilators and was admitted
[2018-06-01] MEDS ORDERED: FUROSEMIDE 40 MG/4 ML INJECTABLE VIAL ONE (20:37)
[2018-06-01] MEDS ORDERED: CEFTRIAXONE 1 GM/50 ML BAG ONE (20:37)
--- NOTE | 2018-06-01 21:11 | HP ---
CHIEF COMPLAINT: sob PCP: Josefina HISTORY OF PRESENT ILLNESS: This is a 83 year old male with a significant past medical history of HTN, CHF, COPD who presented to the ED with a one week history of SOB. The SOB is worse when lying flat. He reports that he sleeps on 2 pillows. He denies chest pain or palpitations. Pt is extremely hard of hearing and history had to be obtained by writing questions on a piece of paper. ER course was notable for: (1) BNP 4666, trop neg (2) WBC 7.6 Recent Travel: pt denies PAST MEDICAL HISTORY: HTN, HLD, CHF, COPD, DM, GERD PAST SURGICAL HISTORY: PPM cholecystectomy Social History: Smoking: quit 20y ago, previous 1ppd smoker Alcohol: pt denies Drugs: pt denies Family History: pt unclear Allergies Iodinated Contrast- Oral and IV Dye [Iodinated Contrast Media - IV Dye] Allergy (Verified 11/17/17 13:51) Rash UNCODED ALLERGY "CT SCAN DYE" levofloxacin [From Levaquin] Allergy (Verified 11/17/17 13:51) "RASH" HOME MEDICATIONS: 3 Medication Instructions Recorded Atorvastatin Ca [Lipitor] 20 mg PO HS 12/03/12 Budesonide [Pulmicort 0.5 mg 1 neb NEB HS 12/03/12 Nebulizer -] Multivit-Min/FA/Lycopene/Lut 1 each PO DAILY 12/03/12 [Centrum Silver Tablet] Tiotropium [place] [Spiriva] 1 inh IH HS 12/03/12 Cyanocobalamin (Vitamin B-12) 1,000 mcg PO DAILY 06/27/14 [Cyanocobalamin] Cholecalciferol (Vitamin D3) 2,000 unit PO DAILY 03/01/15 [Vitamin D3 -] Risperidone [Risperdal] 1 mg PO HS 11/23/16 Albuterol Sulfate Inhaler - 1 - 2 inh PO QID PRN 03/08/17 [Ventolin HFA Inhaler -] Aspirin Coated [Ecotrin -] 81 mg PO DAILY tablet.ec 11/14/17 Amlodipine Besylate 10 mg PO DAILY 06/01/18 Carvedilol [Coreg -] 12.25 mg PO BID 06/01/18 Losartan Potassium 100 mg PO DAILY 06/01/18 Pantoprazole Sodium [Protonix -] 10 mg PO DAILY 09/11/18 Prednisone 5 mg PO DAILY 06/01/18 REVIEW OF SYSTEMS CONSTITUTIONAL: Absent: fever, chills, diaphoresis, generalized weakness, malaise, loss of appetite, weight change HEENT: Absent: rhinorrhea, nasal congestion, throat pain, throat swelling, difficulty swallowing, mouth swelling, ear pain, eye pain, visual changes CARDIOVASCULAR: Absent: chest pain, syncope, palpitations, irregular heart rate, lightheadedness , peripheral edema RESPIRATORY: Present: shortness of breath, orthopnea Absent: cough, dyspnea with exertion, wheezing, stridor, hemoptysis GASTROINTESTINAL: Absent: abdominal pain, abdominal distension, nausea, vomiting, diarrhea, constipation, melena, hematochezia GENITOURINARY: Absent: dysuria, frequency, urgency, hesitancy, hematuria, flank pain, genital pain MUSCULOSKELETAL: Absent: myalgia, arthralgia, joint swelling, back pain, neck pain SKIN: Absent: rash, itching, pallor HEMATOLOGIC/IMMUNOLOGIC: Absent: easy bleeding, easy bruising, lymphadenopathy, frequent infections ENDOCRINE: Absent: unexplained weight gain, unexplained weight loss, heat intolerance, cold intolerance NEUROLOGIC: Absent: headache, focal weakness or paresthesias, dizziness, unsteady gait, seizure, mental status changes, bladder or bowel incontinence PSYCHIATRIC: Absent: anxiety, depression, suicidal or homicidal ideation, hallucinations. PHYSICAL EXAMINATION Vital Signs - 24 hr 3 06/01/18 06/01/18 06/01/18 18:06 19:10 20:54 Temperature 97.7 F 98.4 F Pulse Rate 67 Pulse Rate [ 90 Right Radial] Respiratory 22 16 Rate Blood Pressure 161/79 Blood Pressure 145/73 [Left Arm] O2 Sat by Pulse 95 100 97 Oximetry (%) GENERAL: Awake, alert, and fully oriented, in no acute distress. HEAD: Normal with no signs of trauma. EYES: Pupils equal, round and reactive to light, extraocular movements intact, sclera anicteric, conjunctiva clear. No lid lag. EARS, NOSE, THROAT: Ears normal, nares patent, oropharynx clear without exudates. Moist mucous membranes. NECK: Normal range of motion, supple without lymphadenopathy, JVD, or masses. LUNGS: Breath sounds equal, clear to auscultation bilaterally. No wheezes, and no crackles. No accessory muscle use. diminished bilat bases HEART: Regular rate and rhythm, normal S1 and S2 without murmur, rub or gallop. ABDOMEN: Soft, nontender, not distended, normoactive bowel sounds, no guarding, no rebound, no masses. No hepatomegaly or splenomegaly. MUSCULOSKELETAL: Normal range of motion at all joints. No bony deformities or tenderness. No CVA tenderness. UPPER EXTREMITIES: 2+ pulses, warm, well-perfused. No cyanosis. No clubbing. No peripheral edema. LOWER EXTREMITIES: 2+ pulses, warm, well-perfused. No calf tenderness. No peripheral edema. NEUROLOGICAL: Cranial nerves II-XII intact. Normal speech. PSYCHIATRIC: Cooperative. Good eye contact. Appropriate mood and affect. SKIN: Warm, dry, normal turgor, no rashes or lesions noted, normal capillary refill. Laboratory Results - last 24 hr 3 06/01/18 06/01/18 06/01/18 18:55 18:55 18:55 WBC 7.6 RBC 4.03 Hgb 11.3 L Hct 34.0 L D MCV 84.4 MCH 28.1 MCHC 33.3 RDW 17.9 H Plt Count 211 D MPV 8.7 Absolute Neuts (auto) 5.5 Neutrophils % 72.8 Lymphocytes % 11.9 D Monocytes % 8.0 Eosinophils % 6.3 H Basophils % 1.0 Nucleated RBC % 0 Sodium 139 Potassium 3.8 Chloride 105 Carbon Dioxide 26 Anion Gap 8 BUN 29 H Creatinine 2.1 H Creat Clearance w eGFR 30.24 Random Glucose 112 H D Calcium 9.3 Total Bilirubin 0.6 AST 7 L D ALT 13 D Alkaline Phosphatase 84 Creatine Kinase 30 L Troponin I 0.02 B-Natriuretic Peptide 4666.18 H Total Protein 7.1 Albumin 3.5 Urine Color Straw Urine Appearance Clear Urine pH 6.0 Ur Specific [place] 1.009 Urine Protein 2+ H Urine Glucose (UA) Negative Urine Ketones Negative Urine Blood 1+ H Urine Nitrite Negative Urine Bilirubin Negative Urine Urobilinogen Negative Ur Leukocyte Esterase 2+ H Urine WBC (Auto) 74 Urine RBC (Auto) 2 Ur Epithelial Cells Rare Urine Mucus Rare Urine Yeast Rare ECG atrial sensed ventricular paced rhythm vent rate 90, QTC 538 Radiology Reports CXR portable Since 01/15/2018, again noted are increased lung markings which could represent patchy infiltrates though an element of congestion must also be considered. There is a large heart, sclerotic unfolded aorta, pacemaker and prominent morro. For more complete evaluation, further imaging with CT may be of help. Reported By: Avel Harrison MD 06/01/181921 ASSESSMENT/PLAN: 83yM with PMH HTN, HLD, CHF, COPD, DM, GERD presented to the ED with SOB x 1 week. acute systolic CHF exacerbation - lasix 40mg IV given in ED, cont daily - monitor on tele - cardiology consult - echo 10/2017 with mod to severely reduced LV function, mild dilation HTN/HLD - cont home meds: norvasc, coreg, lipitor, losartan prolonged QTC - likely due to pacemaker presence, will avoid QT prolonging agents COPD - no active wheezing but pt received duoneb x 3 and prednisone 60mg - cont prednisone 60mg daily - duoneb QID - cont home pulmicort neb and spiriva - consider pulm consult - doubtful PNA, no inc cough, no fever, no elev WBC DM - BGM AC/HS with novolog SS GERD - cont home protonix psych - pt on risperidone at home, unclear why, pcp to f/u regarding continuation. DVT PPX - heparin SC FEN - tolerating po - bmp in am - diabetic, low sodium diet as tolerate Dispo: Pt currently requires further observation Visit type - Emergency Visit Emergency Visit: Yes ED Registration Date: 06/01/18 Care time: The patient presented to the Emergency Department on the above date and was hospitalized for further evaluation of their emergent condition. - New Patient This patient is new to me today: Yes Date on this admission: 06/01/18 - Critical Care Critical Care patient: No Hospitalist Screening - Colonoscopy Questionnaire Colonoscopy Questionnaire: Colonoscopy Questionnaire - Patient: 50 - 75 years old and never had a screening colonoscopy: No History of colon or rectal polyps, or CA: Unknown History of IBD, Crohn's disease or UC: Unknown History of abdominal radiation therapy as a child: Unknown - Relative: 1 with colon or rectal CA, or polyps at age 60 or younger: Unknown Colon or rectal CA diagnosed at age 45 or younger: Unknown Multiple relatives with colon or rectal CA: Unknown - Outcome: Screening Result: Negative Screen
[2018-06-01] MEDS ORDERED: risperiDONE 1 MG TABLET (FP) PO SCH (22:00)
[2018-06-01] MEDS ORDERED: SODIUM CHLORIDE NASAL SPRAY 44 ML BOTTLE NS SCH (22:00)
[2018-06-01] MEDS ORDERED: LATANOPROST 0.005% OPHTH SOLN 2.5ML BOTTLE OU SCH (22:00)
[2018-06-01] MEDS: CARVEDILOL 12.5 MG TABLET (FP) PO SCH (22:30)
[2018-06-01] MEDS: ATORVASTATIN CA 20 MG TABLET (FP) PO SCH (22:30)
[2018-06-01] MEDS: risperiDONE 1 MG TABLET (FP) PO SCH (22:30)
[2018-06-01] MEDS ORDERED: CARVEDILOL 12.5 MG TABLET (FP) ONE (22:52)
[2018-06-01] MEDS ORDERED: risperiDONE 0.5 MG TABLET (FP) ONE (22:53)
[2018-06-01] MEDS ORDERED: ATORVASTATIN CA 10 MG TABLET (FP) ONE (22:53)
[2018-06-01] MEDS: BUDESONIDE 0.5 MG/2 ML INH SUSP VIAL NEB SCH (23:00)
[2018-06-01] MEDS: SODIUM CHLORIDE NASAL SPRAY 44 ML BOTTLE NS SCH (23:00)
[2018-06-01] MEDS: LATANOPROST 0.005% OPHTH SOLN 2.5ML BOTTLE OU SCH (23:00)
[2018-06-01] MEDS: TIOTROPIUM BROMIDE 2.5 MCG (SPIRIVA) RESPIMAT INHALER IH SCH (23:00)
[2018-06-01] MEDS: INSULIN SLIDING SCALE (NOVOLOG) 1 VIAL SQ SCH (23:10)
[2018-06-02] MEDS ORDERED: ALPRAZolam 0.25 MG TABLET PO ONE (03:32)
[2018-06-02 03:48] VITALS: BMI 24.7
[2018-06-02] MEDS: INSULIN SLIDING SCALE (NOVOLOG) 1 VIAL SQ SCH ×4 (06:11→21:39)
[2018-06-02 06:32] LABS: BASO % 0.2 % (0-2.0); EOS % 0.1 % (0-4.5); HEMATOCRIT 33.5 % (35.4-49); HEMOGLOBIN 11.2 GM/dL (11.7-16.9); LYMPH % 6.4 % (8-40); MCHC 33.4 g/dl (32.0-35.9); MEAN CELL VOLUME 83.9 fl (80-96); MONO % 1.1 % (3.8-10.2); NEUT % 92.2 % (42.8-82.8); PLATELET COUNT 197 K/MM3 (134-434); RDW 18.3 % (11.9-15.9); WHITE BLOOD COUNT 8.5 K/mm3 (4.0-10.0)
[2018-06-02 07:11] LABS: ANION GAP 13 MMOL/L (8-16); BLOOD UREA NITROGEN 31 mg/dL (7-18); CALCIUM 9.2 mg/dL (8.5-10.1); CHLORIDE 101 mmol/L (98-107); CO2 25 mmol/L (21-32); CREATININE 2.3 mg/dL (0.7-1.3); GLUCOSE,RANDOM 169 mg/dL (74-106); PHOSPHOROUS 3.3 mg/dL (2.5-4.9); POTASSIUM 4.2 mmol/L (3.5-5.1); SODIUM 139 mmol/L (136-145)
[2018-06-02] MEDS: ALBUTEROL SO4 2.5/IPRATROPIUM 0.5 INH SOL 3 ML VIAL.NEB. NEB SCH ×4 (07:40→20:27)
[2018-06-02] MEDS ORDERED: predniSONE 20 MG TABLET (UD) PO SCH (10:00)
[2018-06-02] MEDS: LOSARTAN POTASSIUM 50 MG TABLET (FP) PO SCH (10:00)
[2018-06-02] MEDS: CARVEDILOL 12.5 MG TABLET (FP) PO SCH ×2 (10:00→21:38)
[2018-06-02 10:23] LABS: ACANTHOCYTES 0; ANISOCYTOSIS 0; HELMET CELLS 0; HOWELL-JOLLY BODIES 0; MACROCYTOSIS 0; OVALOCYTE 0; PLATELET ESTIMATE NORMAL; ROULEAU 0; SICKELED CELLS 0; TARGET CELLS 0; TEAR DROP CELLS 0; TOXIC GRANULATION 0
[2018-06-02] MEDS: MULTIVITAMINS (DAILY MVI) TABLET (FP) PO SCH (11:31)
[2018-06-02] MEDS: FERROUS SO4 325 MG TABLET (FP) PO SCH (11:31)
[2018-06-02] MEDS: PANTOPRAZOLE 20 MG TABLET (FP) PO SCH (11:31)
[2018-06-02] MEDS: FUROSEMIDE 40 MG/4 ML INJECTABLE VIAL IVPUSH SCH (11:32)
[2018-06-02] MEDS: CYANOCOBALAMIN 1,000 MCG TABLET (FP) PO SCH (11:32)
[2018-06-02] MEDS: CHOLECALCIFEROL (VITAMIN D3) 1,000 UNIT TABLET (FP) PO SCH (11:32)
[2018-06-02] MEDS: ASPIRIN COATED 81 MG TABLET.EC PO SCH (11:32)
[2018-06-02] MEDS: amLODIPine BESYLATE 10 MG TABLET (FP) PO SCH (11:32)
--- NOTE | 2018-06-02 11:37 | PN ---
Progress Note (short form) - Note Progress Note: Patient was being followed by Dr. Tillman, kindly notify him of the admission
--- NOTE | 2018-06-02 11:51 | EKG ---
Test Reason : Blood Pressure : / mmHG Vent. Rate : 090 BPM Atrial Rate : 090 BPM P-R Int : 168 ms QRS Dur : 188 ms QT Int : 440 ms P-R-T Axes : 000 -83 088 degrees QTc Int : 538 ms Atrial-sensed ventricular-paced rhythm ABNORMAL ECG WHEN COMPARED WITH ECG OF 15-JAN-2018 23:32, VENT. RATE HAS INCREASED BY 13 BPM Confirmed by ZEHRA ZAMORA, ROSINA ([id number]) on 06/02/2018 11:51:11 AM Referred By: Confirmed By:ROSINA SHAHID MD
--- NOTE | 2018-06-02 12:24 | CON.CARD ---
Consult Consult Specialty:: Cardiology Referred by:: Connor Rocha MD Reason for Consultation:: Systolic failure - History of Present Illness Chief Complaint: Dyspnea History of Present Illness: Patient is an 83 year old obese male with underlying history of severe home O2 @ 4L and steroid dependent COPD with h/o flares, pulmonary aspergillosis, ASHD post demand ischemic injury, angina pectoris, type 2 DM, HTN, hypercholesterolemia, GERD, CKD and carotid stenosis, AV block s/p PPM, systolic dysfunction with h/o failure presented with a one week history of SOB. The SOB is worse when lying flat and improved after initiation of IV diuresis. He denies chest pain or palpitations, near or true syncope. Pt is extremely hard of hearing and history had to be obtained by writing questions on a piece of paper. 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: Other (decreased hearing) Cardio/Vascular: Yes: CAD, CHF, HTN, Hyperlipdemia, Other (Right external carotid artery stenosis, tachycardia PPM) Pulmonary: Yes: COPD, O2 Dependent, Other (pulmonary nodules h/o invasive Aspergillosis) Gastrointestinal: Yes: Diverticulitis (as per today's CT), Diverticulosis, GERD , Other (left inguinal hernia, duodinitis, colon polyps) Renal/: Yes: Renal Inusuff, BPH, Hematuria, Other (bladder dysfunction) Infectious Disease: Yes: Other (h/o invasive pulmonary aspergillosis) Musculoskeletal: Yes: Chronic low back pain, Osteoarthritis, Other (dupuytren contracture) ENT: Yes: Other ([place]) Endocrine: Yes: Diabetes Mellitus - Past Surgical History Past Surgical History: Yes: Cholecystectomy (open), Permanent Pacemaker - Alcohol/Substance Use Hx Alcohol Use: No History of Substance Use: reports: None - Smoking History Smoking history: Former smoker Have you smoked in the past 12 months: No If you are a former smoker, when did you quit?: 20 YRS AGO - Social History Usual Living Arrangement: With Child ADL: Family Assistance Occupation: , 4 children History of Recent Travel: No Home Medications - Allergies Allergies/Adverse Reactions: Allergies Allergy/AdvReac Type Severity Reaction Status Date / Time Iodinated Contrast- Oral and Allergy Rash Verified 11/17/17 13:51 IV Dye [Iodinated Contrast Media - IV Dye] levofloxacin [From Levaquin] Allergy "RASH" Verified 11/17/17 13:51 - Home Medications Home Medications: Ambulatory Orders Atorvastatin Ca [Lipitor] 20 mg PO HS 12/03/12 Budesonide [Pulmicort 0.5 mg Nebulizer -] 1 neb NEB HS 12/03/12 Multivit-Min/FA/Lycopene/Lut [Centrum Silver Tablet] 1 each PO DAILY 12/03/12 Tiotropium [place] [Spiriva] 1 inh IH HS 12/03/12 Cyanocobalamin (Vitamin B-12) [Cyanocobalamin] 1,000 mcg PO DAILY 06/27/14 Cholecalciferol (Vitamin D3) [Vitamin D3 -] 2,000 unit PO DAILY 03/01/15 Risperidone [Risperdal] 1 mg PO HS 11/23/16 Albuterol Sulfate Inhaler - [Ventolin HFA Inhaler -] 1 - 2 inh PO QID PRN Aspirin Coated [Ecotrin -] 81 mg PO DAILY tablet.ec 11/14/17 Amlodipine Besylate 10 mg PO DAILY 06/01/18 Carvedilol [Coreg -] 12.25 mg PO BID 06/01/18 Ferrous Sulfate 325 mg PO DAILY 06/01/18 Latanoprost/Pf [Latanoprost 0.005% Eye Drop] 1 drop OU HS 06/01/18 Losartan Potassium 100 mg PO DAILY 06/01/18 Pantoprazole Sodium [Protonix -] 10 mg PO DAILY 06/01/18 Prednisone 5 mg PO DAILY 06/01/18 Sodium Chloride [Saline Nasal [place]] 2 spray NS BID 06/01/18 Family Disease History - Family Disease History Family Disease History: Other: Father ( 71 ? colon cancer), Mother ( 62 : "enlarged heart"), Sister (: CVA and [place]), Daughter (CVA) Review of Systems - Review of Systems Respiratory: reports: Orthopnea, SOB, SOB on Exertion Vital Signs: Vital Signs Temperature 98.9 F 06/02/18 05:00 Pulse Rate 82 06/02/18 09:00 Respiratory Rate 22 06/02/18 09:00 Blood Pressure 126/60 06/02/18 09:00 O2 Sat by Pulse Oximetry (%) 94 L 06/02/18 09:00 Constitutional: Yes: No Distress, Calm Neck: Yes: Supple Respiratory: Yes: Regular, Diminished, On Nasal O2 Gastrointestinal: Yes: Normal Bowel Sounds, Soft, Abdomen, Obese Cardiovascular: Yes: Regular Rate and Rhythm JVD: No Carotid Bruit: No Heart Sounds: Yes: S1, S2 Murmur: Yes: Systolic Murmur, Grade 1 Edema: No - Other Data Labs, Other Data: CBC, BMP 06/02/18 05:30 06/02/18 05:30 Troponin, BNP 06/01/18 18:55 Troponin I 0.02 B-Natriuretic Peptide 4666.18 H Troponin, BNP 06/01/18 18:55 Troponin I 0.02 B-Natriuretic Peptide 4666.18 H A-sensed v-paced @ 90 Ejection Fraction %: LVEF < 40 % Imaging - Results Chest X-ray: Report Reviewed (CHF) Problem List - Problems (1) Acute and chronic respiratory failure with hypoxia Code(s): J96.21 - ACUTE AND CHRONIC RESPIRATORY FAILURE WITH HYPOXIA (2) Acute on chronic combined systolic and diastolic congestive heart failure Code(s): I50.43 - ACUTE ON CHRONIC COMBINED SYSTOLIC AND DIASTOLIC HRT FAIL (3) Acute on chronic renal failure Code(s): N17.9 - ACUTE KIDNEY FAILURE, UNSPECIFIED; N18.9 - CHRONIC KIDNEY DISEASE, UNSPECIFIED Qualifiers: Chronic kidney disease stage: stage 3 (moderate) (4) COPD (chronic obstructive pulmonary disease) Code(s): J44.9 - CHRONIC OBSTRUCTIVE PULMONARY DISEASE, UNSPECIFIED Qualifiers: COPD type: unspecified COPD Qualified Code(s): J44.9 - Chronic obstructive pulmonary disease, unspecified (5) Cardiac pacemaker in situ Code(s): Z95.0 - PRESENCE OF CARDIAC PACEMAKER (6) High-grade atrioventricular block Code(s): I44.39 - OTHER ATRIOVENTRICULAR BLOCK (7) ASHD (arteriosclerotic heart disease) Code(s): I25.10 - ATHSCL HEART DISEASE OF [place] CORONARY ARTERY W/O ANG PCTRS (8) Decreased hearing Code(s): H91.90 - UNSPECIFIED HEARING LOSS, UNSPECIFIED EAR Qualifiers: Laterality: bilateral Qualified Code(s): H91.93 - Unspecified hearing loss , bilateral (9) Diabetes mellitus Code(s): E11.9 - TYPE 2 DIABETES MELLITUS WITHOUT COMPLICATIONS Qualifiers: Diabetes mellitus type: type 2 Diabetes mellitus penitentiary insulin use: without penitentiary use Diabetes mellitus complication status: with unspecified complications Qualified Code(s): E11.8 - Type 2 diabetes mellitus with unspecified complications (10) Hyperlipidemia Code(s): E78.5 - HYPERLIPIDEMIA, UNSPECIFIED Qualifiers: Hyperlipidemia type: pure hypercholesterolemia Qualified Code(s): E78.00 - Pure hypercholesterolemia, unspecified (11) Hypertension Code(s): I10 - ESSENTIAL (PRIMARY) HYPERTENSION Qualifiers: Hypertension type: essential hypertension Qualified Code(s): I10 - Essential (primary) hypertension Assessment/Plan 10/26/14 Echo: Normal biventricular size and fxn without sig valve abnl 11/28/2016 Echo: Mod-severely decreased LV fxn with severe HK lateral and inferolateral, mold MR, TR RVSP 40-50 mmHg 11/12/2017 Echo: Mod-severely decreased LV fxn with severe HK inferior, mild TR mild effusion 1. Acute on Chronic Hypoxic Respiratory Failure 2. Acute on Chronic Systolic Heart Failure 3. 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 Advanced AV block post pacemaker implant interrogated 11/2016 6. HTN 7. Hypercholesterolemia 8. DHEERAJ 9. Acute on CKD 10. Anemia with h/o diverticular disease PLAN: 1. IV diuresis with monitor diuretic response, renal fxn and electrolytes 2. Continue Carvedilol 12.5 bid, Lipitor 20 qhs, ASA 81 qd, Norvasc 10 qd and losartan 100 qd as renal fxn stabilized 3. Echocardiogram to reassess ventricular size and fxn 4. Bronchodilators, oral steroid taper with GI protection, wean FIO2 for saO2>90 % 5. Consider upgrade to BUTT PRESSER-D as outpatient given repeat episodes of CHF 6. DVT prophylaxis, thank you for consultative opportunity
--- NOTE | 2018-06-02 12:25 | PN ---
Progress Note, Physician Chief Complaint: Mr Vee says his breathing is better today but still with some shortness. No cp or n/v. - Current Medication List Current Medications: Active Medications Albuterol/Ipratropium (Duoneb -) 1 amp NEB RQID [facility] Last Admin: 06/02/18 11:30 Dose: 1 amp Amlodipine Besylate (Norvasc -) 10 mg PO DAILY [facility] Last Admin: 06/02/18 11:32 Dose: 10 mg Aspirin (Ecotrin -) 81 mg PO DAILY [facility] Last Admin: 06/02/18 11:32 Dose: 81 mg Atorvastatin Calcium (Lipitor -) 20 mg PO HS [facility] Last Admin: 06/01/18 22:30 Dose: 20 mg Budesonide (Pulmicort 0.5 Mg Nebulizer -) 1 amp NEB DAILY@1999 [facility] Last Admin: 06/01/18 23:00 Dose: 1 amp Carvedilol (Coreg -) 12.5 mg PO BID [facility] Last Admin: 06/01/18 22:30 Dose: 12.5 mg Cholecalciferol (Vitamin D3 -) 2,000 unit PO DAILY [facility] Last Admin: 06/02/18 11:32 Dose: 2,000 unit Cyanocobalamin (Vitamin B12 -) 1,000 mcg PO DAILY [facility] Last Admin: 06/02/18 11:32 Dose: 1,000 mcg Ferrous Sulfate (Feosol -) 325 mg PO DAILY [facility] Last Admin: 06/02/18 11:31 Dose: 325 mg Furosemide (Lasix Injection -) 40 mg IVPUSH DAILY [facility] Last Admin: 06/02/18 11:32 Dose: 40 mg Heparin Sodium (Porcine) (Heparin -) 5,000 unit SQ TID [facility] Insulin Aspart (Novolog Vial Sliding Scale -) 1 vial SQ TIDAC [facility]; Protocol Last Admin: 06/02/18 06:11 Dose: 2 units Insulin Aspart (Novolog Vial Sliding Scale -) 1 vial SQ HS [facility]; Protocol Last Admin: 06/01/18 23:10 Dose: Not Given Latanoprost (Xalatan 0.005% Eye Drops -) 1 drop OU HS [facility] Last Admin: 06/01/18 23:00 Dose: 1 drop Losartan Potassium (Cozaar -) 100 mg PO DAILY [facility] Multivitamins/Minerals/Vitamin C (Tab-A-Vit -) 1 tab PO DAILY [facility] Last Admin: 06/02/18 11:31 Dose: 1 tab Pantoprazole Sodium (Protonix -) 10 mg PO DAILY [facility] Last Admin: 06/02/18 11:31 Dose: 10 mg Prednisone (Deltasone -) 5 mg PO DAILY [facility] Risperidone (Risperdal -) 1 mg PO HS [facility] Last Admin: 06/01/18 22:30 Dose: 1 mg Sodium Chloride ([place] -) 2 spray NS BID [facility] Last Admin: 06/01/18 23:00 Dose: 2 spray Tiotropium [place] (Spiriva Respimat) 2 puff IH HS [facility] Last Admin: 06/01/18 23:00 Dose: 2 puff - Objective Vital Signs: Vital Signs Temperature 37.2 C 06/02/18 05:00 Pulse Rate 82 06/02/18 09:00 Respiratory Rate 22 06/02/18 09:00 Blood Pressure 126/60 06/02/18 09:00 O2 Sat by Pulse Oximetry (%) 94 L 06/02/18 09:00 Constitutional: Yes: Well Nourished, No Distress, Calm Cardiovascular: Yes: Regular Rate and Rhythm. No: Gallop, Murmur, Rub Respiratory: Yes: Regular, CTA Bilaterally, On Nasal O2. No: Rales, Rhonchi, Wheezes Gastrointestinal: Yes: Normal Bowel Sounds, Soft. No: Distention, Tenderness Extremities: Yes: WNL Edema: No Labs: CBC, BMP 06/02/18 05:30 06/02/18 05:30 Problem List - Problems (1) Acute and chronic respiratory failure Assessment/Plan: -secondary to CHF exacerbation -diurese -continue oxygen Code(s): J96.20 - ACUTE AND CHR RESP FAILURE, UNSP W HYPOXIA OR HYPERCAPNIA Qualifiers: Respiratory failure complication: hypoxia Qualified Code(s): J96.21 - Acute and chronic respiratory failure with hypoxia (2) Acute on chronic combined systolic and diastolic congestive heart failure Assessment/Plan: -patient presents with CHF exacerbation -case d/w Dr Thomas -continue IV diuresis with renal monitoring -daily weights and I/Os -improving Code(s): I50.43 - ACUTE ON CHRONIC COMBINED SYSTOLIC AND DIASTOLIC HRT FAIL (3) CKD (chronic kidney disease) Assessment/Plan: -at baseline -monitor Code(s): N18.9 - CHRONIC KIDNEY DISEASE, UNSPECIFIED Qualifiers: Chronic kidney disease stage: stage 3 (moderate) Qualified Code(s): N18.3 - Chronic kidney disease, stage 3 (moderate) (4) COPD (chronic obstructive pulmonary disease) Assessment/Plan: -not in exacerbation -will not continue prednisone 60mg daily -patient on prednisone 5mg daily, will decrease -does not need taper as only received 2 doses of prednisone 60mg -continue inhaled bronchodilators and steroids Code(s): J44.9 - CHRONIC OBSTRUCTIVE PULMONARY DISEASE, UNSPECIFIED Qualifiers: COPD type: unspecified COPD Qualified Code(s): J44.9 - Chronic obstructive pulmonary disease, unspecified (5) ASHD (arteriosclerotic heart disease) Assessment/Plan: -quiescent -continue home regimen Code(s): I25.10 - ATHSCL HEART DISEASE OF [place] CORONARY ARTERY W/O ANG PCTRS (6) Decreased hearing Assessment/Plan: -communicate through writing Code(s): H91.90 - UNSPECIFIED HEARING LOSS, UNSPECIFIED EAR Qualifiers: Laterality: bilateral Qualified Code(s): H91.93 - Unspecified hearing loss , bilateral (7) Diabetes mellitus Assessment/Plan: -will d/w Dr Rocha -unclear if actually diabetic and diet controlled as not on diabetic medications at home -continue SSI and diabetic diet currently Code(s): E11.9 - TYPE 2 DIABETES MELLITUS WITHOUT COMPLICATIONS Qualifiers: Diabetes mellitus type: type 2 Diabetes mellitus predatory animal exterminator insulin use: without predatory animal exterminator use Diabetes mellitus complication status: with unspecified complications Qualified Code(s): E11.8 - Type 2 diabetes mellitus with unspecified complications (8) Hyperlipidemia Assessment/Plan: -continue statin Code(s): E78.5 - HYPERLIPIDEMIA, UNSPECIFIED Qualifiers: Hyperlipidemia type: pure hypercholesterolemia Qualified Code(s): E78.00 - Pure hypercholesterolemia, unspecified (9) Hypertension Assessment/Plan: -controlled -continue current management Code(s): I10 - ESSENTIAL (PRIMARY) HYPERTENSION Qualifiers: Hypertension type: essential hypertension Qualified Code(s): I10 - Essential (primary) hypertension
[2018-06-02] MEDS: HEPARIN NA (PORCINE) 5,000 UNITS/ML 1ML VIAL SQ SCH ×2 (13:51→21:39)
[2018-06-02] MEDS: SODIUM CHLORIDE NASAL SPRAY 44 ML BOTTLE NS SCH ×2 (13:51→21:38)
--- NOTE | 2018-06-02 14:58 | ECHO ---
Name: ANTIONE NIX Exam:Adult Echocardiogram Study Date: 06/02/2018 01:24 PM Age: 83 yrs Reason For Study: SYSTOLIC CHF Height: 65 in Weight: 148 lb BSA: 1.7 m2 MMode/2D Measurements & Calculations IVSd: 1.0 cm Ao root diam: 2.8 cm LVIDd: 5.3 cm LA dimension: 2.9 cm LVIDs: 3.7 cm LVPWd: 1.1 cm EDV(Teich): 136.5 ml ESV(Teich): 57.4 ml Doppler Measurements & Calculations MV E max evan: 82.5 cm/sec MR max evan: 302.7 cm/sec MV dec time: 0.37 sec MR max P.9 mmHg Med Peak E' Evan: 5.8 cm/sec Med E/e': 14.3 Lat Peak E' Evan: 6.9 cm/sec Lat E/e': 12.0 Procedure A two-dimensional transthoracic echocardiogram with color flow and Doppler was performed. Left Ventricle The left ventricle is grossly normal size. Left ventricular systolic function is mild to moderately r educed. Apical wall motion abnormality may reflect pacemaker activation. There is apical dyskinesis. There is mild to moderate global hypokinesis of the left ventricle. Regional wall motion abnormalities cannot be exclu ded due to limited visualization. Right Ventricle The right ventricle is normal in size and function. There is a pacemaker lead in the right ventricle. Atria Normal left and right atrial size and function. Mitral Valve There is mild mitral valve thickening. There is no mitral valve stenosis. There is mild mitral regurg itation. Tricuspid Valve There is mild tricuspid valve thickening. There is no tricuspid stenosis. There was insufficient TR d etected to calculate RV systolic pressure. Aortic Valve The aortic valve is normal in structure and function. No hemodynamically significant valvular aortic stenosis. No aortic regurgitation is present. Pulmonic Valve The pulmonic valve is not well visualized. There is no pulmonic valvular stenosis. There is no pulmon ic valvular regurgitation. Great Vessels The aortic root is normal size. Pericardium/Pleura There is no pericardial effusion. Interpretation Summary There is a pacemaker lead in the right ventricle. Apical wall motion abnormality may reflect pacemaker activation. There is apical dyskinesis. There is mild to moderate global hypokinesis of the left ventricle. The left ventricle is grossly normal size. Left ventricular systolic function is mild to moderately reduced. Regional wall motion abnormalities cannot be excluded due to limited visualization. There is mild mitral regurgitation. There was insufficient TR detected to calculate RV systolic pressure. MD Gabriel Flores 06/02/2018 02:57 PM
[2018-06-02] MEDS ORDERED: INSULIN (NOVOLOG) ASPART 100 UNITS/ML 10ML VIAL ONE (18:40)
[2018-06-02] MEDS ORDERED: PT OWN MED DRAWER 7, Y5N ONE (20:12)
[2018-06-02] MEDS: BUDESONIDE 0.5 MG/2 ML INH SUSP VIAL NEB SCH (20:27)
[2018-06-02] MEDS: ATORVASTATIN CA 20 MG TABLET (FP) PO SCH (21:38)
[2018-06-02] MEDS: risperiDONE 1 MG TABLET (FP) PO SCH (21:38)
[2018-06-02] MEDS: LATANOPROST 0.005% OPHTH SOLN 2.5ML BOTTLE OU SCH (21:38)
[2018-06-02] MEDS: TIOTROPIUM BROMIDE 2.5 MCG (SPIRIVA) RESPIMAT INHALER IH SCH (21:39)
[2018-06-03] MEDS: HEPARIN NA (PORCINE) 5,000 UNITS/ML 1ML VIAL SQ SCH ×3 (05:28→22:39)
[2018-06-03] MEDS: INSULIN SLIDING SCALE (NOVOLOG) 1 VIAL SQ SCH ×2 (06:01→12:26)
[2018-06-03 06:26] LABS: BASO % 0.1 % (0-2.0); HEMATOCRIT 32.5 % (35.4-49); HEMOGLOBIN 10.8 GM/dL (11.7-16.9); LYMPH % 5.8 % (8-40); MCH 27.9 pg (25.7-33.7); MCHC 33.3 g/dl (32.0-35.9); MEAN CELL VOLUME 83.9 fl (80-96); MEAN PLT VOLUME 8.7 fl (7.5-11.1); NEUT % 88.1 % (42.8-82.8); PLATELET COUNT 186 K/MM3 (134-434); RBC 3.88 M/mm3 (4.00-5.60); RDW 18.2 % (11.9-15.9); WHITE BLOOD COUNT 11.1 K/mm3 (4.0-10.0)
[2018-06-03 06:57] LABS: ANION GAP 10 MMOL/L (8-16); BLOOD UREA NITROGEN 51 mg/dL (7-18); CALCIUM 9.4 mg/dL (8.5-10.1); CHLORIDE 100 mmol/L (98-107); CO2 28 mmol/L (21-32); CREATININE 2.5 mg/dL (0.7-1.3); GLUCOSE,RANDOM 120 mg/dL (74-106); MAGNESIUM 2.2 mg/dL (1.8-2.4); PHOSPHOROUS 5.1 mg/dL (2.5-4.9); SODIUM 138 mmol/L (136-145)
[2018-06-03] MEDS: ALBUTEROL SO4 2.5/IPRATROPIUM 0.5 INH SOL 3 ML VIAL.NEB. NEB SCH ×4 (07:35→21:03)
[2018-06-03] MEDS: FUROSEMIDE 40 MG/4 ML INJECTABLE VIAL IVPUSH SCH (09:51)
[2018-06-03] MEDS: FERROUS SO4 325 MG TABLET (FP) PO SCH (09:52)
[2018-06-03] MEDS: ASPIRIN COATED 81 MG TABLET.EC PO SCH (09:53)
[2018-06-03] MEDS: predniSONE 5 MG TABLET (UD) PO SCH (09:53)
[2018-06-03] MEDS: MULTIVITAMINS (DAILY MVI) TABLET (FP) PO SCH (09:53)
[2018-06-03] MEDS: CHOLECALCIFEROL (VITAMIN D3) 1,000 UNIT TABLET (FP) PO SCH (09:54)
[2018-06-03] MEDS: PANTOPRAZOLE 20 MG TABLET (FP) PO SCH (09:54)
[2018-06-03] MEDS: CYANOCOBALAMIN 1,000 MCG TABLET (FP) PO SCH (09:54)
[2018-06-03] MEDS: SODIUM CHLORIDE NASAL SPRAY 44 ML BOTTLE NS SCH ×2 (09:55→22:40)
--- NOTE | 2018-06-03 10:27 | PN ---
Progress Note, Physician History of Present Illness: Dyspnea and orthopnea resolving with IV diuresis. - Current Medication List Current Medications: Active Medications Albuterol/Ipratropium (Duoneb -) 1 amp NEB RQID [facility] Last Admin: 06/03/18 07:35 Dose: 1 amp Amlodipine Besylate (Norvasc -) 10 mg PO DAILY [facility] Last Admin: 06/02/18 11:32 Dose: 10 mg Aspirin (Ecotrin -) 81 mg PO DAILY [facility] Last Admin: 06/03/18 09:53 Dose: 81 mg Atorvastatin Calcium (Lipitor -) 20 mg PO HS [facility] Last Admin: 06/02/18 21:38 Dose: 20 mg Budesonide (Pulmicort 0.5 Mg Nebulizer -) 1 amp NEB DAILY@1999 [facility] Last Admin: 06/02/18 20:27 Dose: 1 amp Carvedilol (Coreg -) 12.5 mg PO BID [facility] Last Admin: 06/02/18 21:38 Dose: 12.5 mg Cholecalciferol (Vitamin D3 -) 2,000 unit PO DAILY [facility] Last Admin: 06/03/18 09:54 Dose: 2,000 unit Cyanocobalamin (Vitamin B12 -) 1,000 mcg PO DAILY [facility] Last Admin: 06/03/18 09:54 Dose: 1,000 mcg Ferrous Sulfate (Feosol -) 325 mg PO DAILY [facility] Last Admin: 06/03/18 09:52 Dose: 325 mg Furosemide (Lasix Injection -) 40 mg IVPUSH DAILY [facility] Last Admin: 06/03/18 09:51 Dose: 40 mg Heparin Sodium (Porcine) (Heparin -) 5,000 unit SQ TID [facility] Last Admin: 06/03/18 05:28 Dose: 5,000 unit Insulin Aspart (Novolog Vial Sliding Scale -) 1 vial SQ TIDAC [facility]; Protocol Last Admin: 06/03/18 06:01 Dose: Not Given Insulin Aspart (Novolog Vial Sliding Scale -) 1 vial SQ HS [facility]; Protocol Last Admin: 06/02/18 21:39 Dose: Not Given Latanoprost (Xalatan 0.005% Eye Drops -) 1 drop OU HS [facility] Last Admin: 06/02/18 21:38 Dose: 1 drop Losartan Potassium (Cozaar -) 100 mg PO DAILY [facility] Last Admin: 06/02/18 10:00 Dose: 100 mg Multivitamins/Minerals/Vitamin C (Tab-A-Vit -) 1 tab PO DAILY [facility] Last Admin: 06/03/18 09:53 Dose: 1 tab Pantoprazole Sodium (Protonix -) 10 mg PO DAILY [facility] Last Admin: 06/03/18 09:54 Dose: 10 mg Prednisone (Deltasone -) 5 mg PO DAILY [facility] Last Admin: 06/03/18 09:53 Dose: 5 mg Risperidone (Risperdal -) 1 mg PO HS [facility] Last Admin: 06/02/18 21:38 Dose: 1 mg Sodium Chloride ([place] -) 2 spray NS BID [facility] Last Admin: 06/03/18 09:55 Dose: 2 spray Tiotropium [place] (Spiriva Respimat) 2 puff IH HS [facility] Last Admin: 06/02/18 21:39 Dose: 2 puff - Objective Vital Signs: Vital Signs Temperature 98.4 F 06/03/18 05:00 Pulse Rate 77 06/03/18 05:00 Respiratory Rate 18 06/03/18 05:00 Blood Pressure 153/83 06/03/18 05:00 O2 Sat by Pulse Oximetry (%) 97 06/02/18 20:29 Constitutional: Yes: No Distress, Calm Neck: Yes: Supple Cardiovascular: Yes: Regular Rate and Rhythm Respiratory: Yes: Regular, Diminished, On Nasal O2 Gastrointestinal: Yes: Normal Bowel Sounds, Soft Edema: No Labs: CBC, BMP 06/03/18 05:30 06/03/18 05:30 - ....Imaging EKG: Report Reviewed (Tele: A-sensed, v-paced) Problem List - Problems (1) Acute and chronic respiratory failure with hypoxia Code(s): J96.21 - ACUTE AND CHRONIC RESPIRATORY FAILURE WITH HYPOXIA (2) Acute on chronic combined systolic and diastolic congestive heart failure Code(s): I50.43 - ACUTE ON CHRONIC COMBINED SYSTOLIC AND DIASTOLIC HRT FAIL (3) Acute on chronic renal failure Code(s): N17.9 - ACUTE KIDNEY FAILURE, UNSPECIFIED; N18.9 - CHRONIC KIDNEY DISEASE, UNSPECIFIED Qualifiers: Chronic kidney disease stage: stage 3 (moderate) (4) COPD (chronic obstructive pulmonary disease) Code(s): J44.9 - CHRONIC OBSTRUCTIVE PULMONARY DISEASE, UNSPECIFIED Qualifiers: COPD type: unspecified COPD Qualified Code(s): J44.9 - Chronic obstructive pulmonary disease, unspecified (5) Cardiac pacemaker in situ Code(s): Z95.0 - PRESENCE OF CARDIAC PACEMAKER (6) High-grade atrioventricular block Code(s): I44.39 - OTHER ATRIOVENTRICULAR BLOCK (7) ASHD (arteriosclerotic heart disease) Code(s): I25.10 - ATHSCL HEART DISEASE OF [place] CORONARY ARTERY W/O ANG PCTRS (8) Decreased hearing Code(s): H91.90 - UNSPECIFIED HEARING LOSS, UNSPECIFIED EAR Qualifiers: Laterality: bilateral Qualified Code(s): H91.93 - Unspecified hearing loss , bilateral (9) Diabetes mellitus Code(s): E11.9 - TYPE 2 DIABETES MELLITUS WITHOUT COMPLICATIONS Qualifiers: Diabetes mellitus type: type 2 Diabetes mellitus long-term insulin use: without senior mechanical development engineer use Diabetes mellitus complication status: with unspecified complications Qualified Code(s): E11.8 - Type 2 diabetes mellitus with unspecified complications (10) Hyperlipidemia Code(s): E78.5 - HYPERLIPIDEMIA, UNSPECIFIED Qualifiers: Hyperlipidemia type: pure hypercholesterolemia Qualified Code(s): E78.00 - Pure hypercholesterolemia, unspecified (11) Hypertension Code(s): I10 - ESSENTIAL (PRIMARY) HYPERTENSION Qualifiers: Hypertension type: essential hypertension Qualified Code(s): I10 - Essential (primary) hypertension Assessment/Plan 10/26/14 Echo: Normal biventricular size and fxn without sig valve abnl 11/28/2016 Echo: Mod-severely decreased LV fxn with severe HK lateral and inferolateral, mold MR, TR RVSP 40-50 mmHg 11/12/2017 Echo: Mod-severely decreased LV fxn with severe HK inferior, mild TR mild effusion 06/02/2018 Echo: Mild-mod decreased LV fxn with apical dyskinesis, mild MR 1. Acute on Chronic Hypoxic Respiratory Failure referable to 2. Acute on Chronic Systolic Heart Failure resolving 3. 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 Advanced AV block post pacemaker implant interrogated 11/2016 6. HTN 7. Hypercholesterolemia 8. DHEERAJ 9. Acute on CKD 10. Anemia with h/o diverticular disease PLAN: 1. Change to oral diuresis with monitor diuretic response, renal fxn and electrolytes 2. Continue Carvedilol 12.5 bid, Lipitor 20 qhs, ASA 81 qd, Norvasc 10 qd and losartan 100 qd as renal fxn stabilized 3. Bronchodilators, oral steroid taper with GI protection, wean FIO2 for saO2>90 % 4. DVT prophylaxis
[2018-06-03] MEDS: LOSARTAN POTASSIUM 50 MG TABLET (FP) PO SCH (11:38)
[2018-06-03] MEDS: CARVEDILOL 12.5 MG TABLET (FP) PO SCH ×2 (11:39→22:39)
[2018-06-03] MEDS: amLODIPine BESYLATE 10 MG TABLET (FP) PO SCH (11:39)
--- NOTE | 2018-06-03 12:13 | PN ---
Progress Note, Physician Chief Complaint: Mr Vee is without complaint. No cp, sob, n/v. - Current Medication List Current Medications: Active Medications Albuterol/Ipratropium (Duoneb -) 1 amp NEB RQID [facility] Last Admin: 06/03/18 11:48 Dose: 1 amp Amlodipine Besylate (Norvasc -) 10 mg PO DAILY [facility] Last Admin: 06/02/18 11:32 Dose: 10 mg Aspirin (Ecotrin -) 81 mg PO DAILY [facility] Last Admin: 06/03/18 09:53 Dose: 81 mg Atorvastatin Calcium (Lipitor -) 20 mg PO HS [facility] Last Admin: 06/02/18 21:38 Dose: 20 mg Budesonide (Pulmicort 0.5 Mg Nebulizer -) 1 amp NEB DAILY@1999 [facility] Last Admin: 06/02/18 20:27 Dose: 1 amp Carvedilol (Coreg -) 12.5 mg PO BID [facility] Last Admin: 06/02/18 21:38 Dose: 12.5 mg Cholecalciferol (Vitamin D3 -) 2,000 unit PO DAILY [facility] Last Admin: 06/03/18 09:54 Dose: 2,000 unit Cyanocobalamin (Vitamin B12 -) 1,000 mcg PO DAILY [facility] Last Admin: 06/03/18 09:54 Dose: 1,000 mcg Ferrous Sulfate (Feosol -) 325 mg PO DAILY [facility] Last Admin: 06/03/18 09:52 Dose: 325 mg Heparin Sodium (Porcine) (Heparin -) 5,000 unit SQ TID [facility] Last Admin: 06/03/18 05:28 Dose: 5,000 unit Insulin Aspart (Novolog Vial Sliding Scale -) 1 vial SQ TIDAC [facility]; Protocol Last Admin: 06/03/18 06:01 Dose: Not Given Insulin Aspart (Novolog Vial Sliding Scale -) 1 vial SQ HS [facility]; Protocol Last Admin: 06/02/18 21:39 Dose: Not Given Latanoprost (Xalatan 0.005% Eye Drops -) 1 drop OU HS [facility] Last Admin: 06/02/18 21:38 Dose: 1 drop Losartan Potassium (Cozaar -) 100 mg PO DAILY [facility] Last Admin: 06/02/18 10:00 Dose: 100 mg Multivitamins/Minerals/Vitamin C (Tab-A-Vit -) 1 tab PO DAILY [facility] Last Admin: 06/03/18 09:53 Dose: 1 tab Pantoprazole Sodium (Protonix -) 10 mg PO DAILY [facility] Last Admin: 06/03/18 09:54 Dose: 10 mg Prednisone (Deltasone -) 5 mg PO DAILY [facility] Last Admin: 06/03/18 09:53 Dose: 5 mg Risperidone (Risperdal -) 1 mg PO HS [facility] Last Admin: 06/02/18 21:38 Dose: 1 mg Sodium Chloride ([place] Nasal [place] -) 2 spray NS BID [facility] Last Admin: 06/03/18 09:55 Dose: 2 spray Tiotropium [place] (Spiriva Respimat) 2 puff IH HS [facility] Last Admin: 06/02/18 21:39 Dose: 2 puff Torsemide (Demadex -) 20 mg PO DAILY [facility] - Objective Vital Signs: Vital Signs Temperature 36.9 C 06/03/18 05:00 Pulse Rate 77 06/03/18 05:00 Respiratory Rate 18 06/03/18 05:00 Blood Pressure 153/83 06/03/18 05:00 O2 Sat by Pulse Oximetry (%) 97 06/02/18 20:29 Constitutional: Yes: Well Nourished, No Distress, Calm Cardiovascular: Yes: Regular Rate and Rhythm. No: Gallop, Murmur, Rub Respiratory: Yes: Regular, CTA Bilaterally. No: Rales, Rhonchi, Wheezes Gastrointestinal: Yes: Normal Bowel Sounds, Soft. No: Distention, Tenderness Extremities: Yes: WNL Edema: No Labs: CBC, BMP 06/03/18 05:30 06/03/18 05:30 Problem List - Problems (1) Acute and chronic respiratory failure Code(s): J96.20 - ACUTE AND CHR RESP FAILURE, UNSP W HYPOXIA OR HYPERCAPNIA Qualifiers: Respiratory failure complication: hypoxia Qualified Code(s): J96.21 - Acute and chronic respiratory failure with hypoxia (2) Acute on chronic combined systolic and diastolic congestive heart failure Code(s): I50.43 - ACUTE ON CHRONIC COMBINED SYSTOLIC AND DIASTOLIC HRT FAIL (3) CKD (chronic kidney disease) Code(s): N18.9 - CHRONIC KIDNEY DISEASE, UNSPECIFIED Qualifiers: Chronic kidney disease stage: stage 3 (moderate) Qualified Code(s): N18.3 - Chronic kidney disease, stage 3 (moderate) (4) COPD (chronic obstructive pulmonary disease) Code(s): J44.9 - CHRONIC OBSTRUCTIVE PULMONARY DISEASE, UNSPECIFIED Qualifiers: COPD type: unspecified COPD Qualified Code(s): J44.9 - Chronic obstructive pulmonary disease, unspecified (5) ASHD (arteriosclerotic heart disease) Code(s): I25.10 - ATHSCL HEART DISEASE OF [place] CORONARY ARTERY W/O ANG PCTRS (6) Decreased hearing Code(s): H91.90 - UNSPECIFIED HEARING LOSS, UNSPECIFIED EAR Qualifiers: Laterality: bilateral Qualified Code(s): H91.93 - Unspecified hearing loss , bilateral (7) Diabetes mellitus Code(s): E11.9 - TYPE 2 DIABETES MELLITUS WITHOUT COMPLICATIONS Qualifiers: Diabetes mellitus type: type 2 Diabetes mellitus intermediate manager insulin use: without fci use Diabetes mellitus complication status: with unspecified complications Qualified Code(s): E11.8 - Type 2 diabetes mellitus with unspecified complications (8) Hyperlipidemia Code(s): E78.5 - HYPERLIPIDEMIA, UNSPECIFIED Qualifiers: Hyperlipidemia type: pure hypercholesterolemia Qualified Code(s): E78.00 - Pure hypercholesterolemia, unspecified (9) Hypertension Code(s): I10 - ESSENTIAL (PRIMARY) HYPERTENSION Qualifiers: Hypertension type: essential hypertension Qualified Code(s): I10 - Essential (primary) hypertension Assessment/Plan (1) Acute and chronic respiratory failure Assessment/Plan: -much improved -close to baseline -can change to oral diuresis today Code(s): J96.20 - ACUTE AND CHR RESP FAILURE, UNSP W HYPOXIA OR HYPERCAPNIA Qualifiers: Respiratory failure complication: hypoxia Qualified Code(s): J96.21 - Acute and chronic respiratory failure with hypoxia (2) Acute on chronic combined systolic and diastolic congestive heart failure Assessment/Plan: -case d/w Dr Thomas -change to torsemide today -check bmp as becoming azotemic -can discharge tomorrow if renal function tolerates torsemide and CHF does not worsen Code(s): I50.43 - ACUTE ON CHRONIC COMBINED SYSTOLIC AND DIASTOLIC HRT FAIL (3) CKD (chronic kidney disease) Assessment/Plan: -as above Code(s): N18.9 - CHRONIC KIDNEY DISEASE, UNSPECIFIED Qualifiers: Chronic kidney disease stage: stage 3 (moderate) Qualified Code(s): N18.3 - Chronic kidney disease, stage 3 (moderate) (4) COPD (chronic obstructive pulmonary disease) Assessment/Plan: -continue current management Code(s): J44.9 - CHRONIC OBSTRUCTIVE PULMONARY DISEASE, UNSPECIFIED Qualifiers: COPD type: unspecified COPD Qualified Code(s): J44.9 - Chronic obstructive pulmonary disease, unspecified (5) ASHD (arteriosclerotic heart disease) Assessment/Plan: -quiescent -continue home regimen Code(s): I25.10 - ATHSCL HEART DISEASE OF [place] CORONARY ARTERY W/O ANG PCTRS (6) Decreased hearing Assessment/Plan: -communicate through writing Code(s): H91.90 - UNSPECIFIED HEARING LOSS, UNSPECIFIED EAR Qualifiers: Laterality: bilateral Qualified Code(s): H91.93 - Unspecified hearing loss , bilateral (7) Diabetes mellitus Assessment/Plan: -some elevation of glucose but on increased prednisone -currently glucose well controlled -will stop FSBS and SSI Code(s): E11.9 - TYPE 2 DIABETES MELLITUS WITHOUT COMPLICATIONS Qualifiers: Diabetes mellitus type: type 2 Diabetes mellitus fci insulin use: without fci use Diabetes mellitus complication status: with unspecified complications Qualified Code(s): E11.8 - Type 2 diabetes mellitus with unspecified complications (8) Hyperlipidemia Assessment/Plan: -continue statin Code(s): E78.5 - HYPERLIPIDEMIA, UNSPECIFIED Qualifiers: Hyperlipidemia type: pure hypercholesterolemia Qualified Code(s): E78.00 - Pure hypercholesterolemia, unspecified (9) Hypertension Assessment/Plan: -controlled -continue current management Code(s): I10 - ESSENTIAL (PRIMARY) HYPERTENSION Qualifiers: Hypertension type: essential hypertension Qualified Code(s): I10 - Essential (primary) hypertension Dispo -await PT evaluation but plan for discharge tomorrow
[2018-06-03] MEDS: BUDESONIDE 0.5 MG/2 ML INH SUSP VIAL NEB SCH (21:03)
[2018-06-03] MEDS ORDERED: PT OWN MED DRAWER 7, Y5N ONE (22:37)
[2018-06-03] MEDS: ATORVASTATIN CA 20 MG TABLET (FP) PO SCH (22:39)
[2018-06-03] MEDS: risperiDONE 1 MG TABLET (FP) PO SCH (22:40)
[2018-06-03] MEDS: TIOTROPIUM BROMIDE 2.5 MCG (SPIRIVA) RESPIMAT INHALER IH SCH (22:40)
[2018-06-03] MEDS: LATANOPROST 0.005% OPHTH SOLN 2.5ML BOTTLE OU SCH (22:41)
[2018-06-04] MEDS: HEPARIN NA (PORCINE) 5,000 UNITS/ML 1ML VIAL SQ SCH ×2 (06:21→13:30)
[2018-06-04 07:01] LABS: BASO % 0.5 % (0-2.0); EOS % 2.1 % (0-4.5); HEMATOCRIT 31.1 % (35.4-49); HEMOGLOBIN 10.4 GM/dL (11.7-16.9); LYMPH % 17.5 % (8-40); MCH 28.2 pg (25.7-33.7); MCHC 33.4 g/dl (32.0-35.9); MEAN CELL VOLUME 84.2 fl (80-96); MEAN PLT VOLUME 8.7 fl (7.5-11.1); MONO % 8.8 % (3.8-10.2); NEUT % 71.1 % (42.8-82.8); PLATELET COUNT 186 K/MM3 (134-434); RBC 3.69 M/mm3 (4.00-5.60); RDW 17.9 % (11.9-15.9); WHITE BLOOD COUNT 8.9 K/mm3 (4.0-10.0)
[2018-06-04] MEDS: ALBUTEROL SO4 2.5/IPRATROPIUM 0.5 INH SOL 3 ML VIAL.NEB. NEB SCH ×3 (07:34→16:42)
[2018-06-04 07:36] LABS: CHLORIDE 101 mmol/L (98-107); POTASSIUM 3.6 mmol/L (3.5-5.1); SODIUM 138 mmol/L (136-145)
[2018-06-04 07:41] LABS: ANION GAP 10 MMOL/L (8-16); BLOOD UREA NITROGEN 63 mg/dL (7-18); CALCIUM 9.1 mg/dL (8.5-10.1); CO2 27 mmol/L (21-32); CREATININE 2.6 mg/dL (0.55-1.3); GLUCOSE,RANDOM 93 mg/dL (74-106); MAGNESIUM 2.1 mg/dL (1.8-2.4); PHOSPHOROUS 4.4 mg/dL (2.5-4.9)
[2018-06-04] MEDS ORDERED: POTASSIUM CHLORIDE TABS 20 MEQ TABLET.ER (FP) PO ONE (09:15)
--- NOTE | 2018-06-04 09:24 | PN ---
Progress Note, Physician History of Present Illness: Dyspnea and orthopnea resolved with IV diuresis, now on oral diuretics. - Current Medication List Current Medications: Active Medications Albuterol/Ipratropium (Duoneb -) 1 amp NEB RQID [facility] Last Admin: 06/04/18 07:34 Dose: 1 amp Amlodipine Besylate (Norvasc -) 10 mg PO DAILY [facility] Last Admin: 06/03/18 11:39 Dose: 10 mg Aspirin (Ecotrin -) 81 mg PO DAILY [facility] Last Admin: 06/03/18 09:53 Dose: 81 mg Atorvastatin Calcium (Lipitor -) 20 mg PO HS [facility] Last Admin: 06/03/18 22:39 Dose: 20 mg Budesonide (Pulmicort 0.5 Mg Nebulizer -) 1 amp NEB DAILY@1999 [facility] Last Admin: 06/03/18 21:03 Dose: 1 amp Carvedilol (Coreg -) 12.5 mg PO BID [facility] Last Admin: 06/03/18 22:39 Dose: 12.5 mg Cholecalciferol (Vitamin D3 -) 2,000 unit PO DAILY [facility] Last Admin: 06/03/18 09:54 Dose: 2,000 unit Cyanocobalamin (Vitamin B12 -) 1,000 mcg PO DAILY [facility] Last Admin: 06/03/18 09:54 Dose: 1,000 mcg Ferrous Sulfate (Feosol -) 325 mg PO DAILY [facility] Last Admin: 06/03/18 09:52 Dose: 325 mg Heparin Sodium (Porcine) (Heparin -) 5,000 unit SQ TID [facility] Last Admin: 06/04/18 06:21 Dose: 5,000 unit Latanoprost (Xalatan 0.005% Eye Drops -) 1 drop OU HS [facility] Last Admin: 06/03/18 22:41 Dose: 1 drop Losartan Potassium (Cozaar -) 100 mg PO DAILY [facility] Last Admin: 06/03/18 11:38 Dose: 100 mg Multivitamins/Minerals/Vitamin C (Tab-A-Vit -) 1 tab PO DAILY [facility] Last Admin: 06/03/18 09:53 Dose: 1 tab Pantoprazole Sodium (Protonix -) 10 mg PO DAILY [facility] Last Admin: 06/03/18 09:54 Dose: 10 mg Prednisone (Deltasone -) 5 mg PO DAILY [facility] Last Admin: 06/03/18 09:53 Dose: 5 mg Risperidone (Risperdal -) 1 mg PO HS [facility] Last Admin: 06/03/18 22:40 Dose: 1 mg Sodium Chloride ([place] Nasal [place] -) 2 spray NS BID [facility] Last Admin: 06/03/18 22:40 Dose: 2 spray Tiotropium [place] (Spiriva Respimat) 2 puff IH HS [facility] Last Admin: 06/03/18 22:40 Dose: 2 puff Torsemide (Demadex -) 20 mg PO DAILY [facility] - Objective Vital Signs: Vital Signs Temperature 99.1 F 06/04/18 05:00 Pulse Rate 66 06/04/18 05:00 Respiratory Rate 18 06/04/18 05:00 Blood Pressure 120/56 06/04/18 05:00 O2 Sat by Pulse Oximetry (%) 97 06/03/18 21:00 Constitutional: Yes: No Distress, Calm Neck: Yes: Supple Cardiovascular: Yes: Regular Rate and Rhythm Respiratory: Yes: Regular, Diminished, On Nasal O2 Gastrointestinal: Yes: Normal Bowel Sounds, Soft Edema: No Labs: CBC, BMP 06/04/18 05:45 06/04/18 05:45 Problem List - Problems (1) Acute and chronic respiratory failure with hypoxia Code(s): J96.21 - ACUTE AND CHRONIC RESPIRATORY FAILURE WITH HYPOXIA (2) Acute on chronic combined systolic and diastolic congestive heart failure Code(s): I50.43 - ACUTE ON CHRONIC COMBINED SYSTOLIC AND DIASTOLIC HRT FAIL (3) Acute on chronic renal failure Code(s): N17.9 - ACUTE KIDNEY FAILURE, UNSPECIFIED; N18.9 - CHRONIC KIDNEY DISEASE, UNSPECIFIED Qualifiers: Chronic kidney disease stage: stage 3 (moderate) (4) COPD (chronic obstructive pulmonary disease) Code(s): J44.9 - CHRONIC OBSTRUCTIVE PULMONARY DISEASE, UNSPECIFIED Qualifiers: COPD type: unspecified COPD Qualified Code(s): J44.9 - Chronic obstructive pulmonary disease, unspecified (5) Cardiac pacemaker in situ Code(s): Z95.0 - PRESENCE OF CARDIAC PACEMAKER (6) High-grade atrioventricular block Code(s): I44.39 - OTHER ATRIOVENTRICULAR BLOCK (7) ASHD (arteriosclerotic heart disease) Code(s): I25.10 - ATHSCL HEART DISEASE OF [place] CORONARY ARTERY W/O ANG PCTRS (8) Decreased hearing Code(s): H91.90 - UNSPECIFIED HEARING LOSS, UNSPECIFIED EAR Qualifiers: Laterality: bilateral Qualified Code(s): H91.93 - Unspecified hearing loss , bilateral (9) Diabetes mellitus Code(s): E11.9 - TYPE 2 DIABETES MELLITUS WITHOUT COMPLICATIONS Qualifiers: Diabetes mellitus type: type 2 Diabetes mellitus [facility] insulin use: without [facility] use Diabetes mellitus complication status: with unspecified complications Qualified Code(s): E11.8 - Type 2 diabetes mellitus with unspecified complications (10) Hyperlipidemia Code(s): E78.5 - HYPERLIPIDEMIA, UNSPECIFIED Qualifiers: Hyperlipidemia type: pure hypercholesterolemia Qualified Code(s): E78.00 - Pure hypercholesterolemia, unspecified (11) Hypertension Code(s): I10 - ESSENTIAL (PRIMARY) HYPERTENSION Qualifiers: Hypertension type: essential hypertension Qualified Code(s): I10 - Essential (primary) hypertension Assessment/Plan 10/26/14 Echo: Normal biventricular size and fxn without sig valve abnl 11/28/2016 Echo: Mod-severely decreased LV fxn with severe HK lateral and inferolateral, mold MR, TR RVSP 40-50 mmHg 11/12/2017 Echo: Mod-severely decreased LV fxn with severe HK inferior, mild TR mild effusion 06/02/2018 Echo: Mild-mod decreased LV fxn with apical dyskinesis, mild MR 1. Acute on Chronic Hypoxic Respiratory Failure referable to 2. Acute on Chronic Systolic Heart Failure resolving 3. 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 Advanced AV block post pacemaker implant interrogated 11/2016 6. HTN 7. Hypercholesterolemia 8. DHEERAJ 9. Acute on CKD 10. Anemia with h/o diverticular disease PLAN: 1. Diuretics changed to Demadex 20 qd with monitor diuretic response, renal fxn and electrolytes, recheck early next week 2. Continue Carvedilol 12.5 bid, Lipitor 20 qhs, ASA 81 qd, Norvasc 10 qd and losartan 100 qd as renal fxn stabilized 3. Bronchodilators, oral steroid taper with GI protection, wean FIO2 for saO2>90 % 4. May d/c from CV-standpoint
[2018-06-04] MEDS: CARVEDILOL 12.5 MG TABLET (FP) PO SCH (09:26)
[2018-06-04] MEDS: MULTIVITAMINS (DAILY MVI) TABLET (FP) PO SCH (09:26)
[2018-06-04] MEDS: amLODIPine BESYLATE 10 MG TABLET (FP) PO SCH (09:26)
[2018-06-04] MEDS: PANTOPRAZOLE 20 MG TABLET (FP) PO SCH (09:27)
[2018-06-04] MEDS: ASPIRIN COATED 81 MG TABLET.EC PO SCH (09:27)
[2018-06-04] MEDS: predniSONE 5 MG TABLET (UD) PO SCH (09:27)
[2018-06-04] MEDS: FERROUS SO4 325 MG TABLET (FP) PO SCH (09:27)
[2018-06-04] MEDS: LOSARTAN POTASSIUM 50 MG TABLET (FP) PO SCH (09:28)
[2018-06-04] MEDS: CYANOCOBALAMIN 1,000 MCG TABLET (FP) PO SCH (09:28)
[2018-06-04] MEDS: CHOLECALCIFEROL (VITAMIN D3) 1,000 UNIT TABLET (FP) PO SCH (09:28)
[2018-06-04] MEDS: SODIUM CHLORIDE NASAL SPRAY 44 ML BOTTLE NS SCH (09:37)
[2018-06-04] MEDS ORDERED: TORSEMIDE 20 MG TABLET (FP) PO SCH (10:00)
--- NOTE | 2018-06-04 11:14 | DS ---
Physical Examination Vital Signs: Vital Signs Temperature 99.1 F 06/04/18 05:00 Pulse Rate 66 06/04/18 05:00 Respiratory Rate 18 06/04/18 05:00 Blood Pressure 120/56 06/04/18 05:00 O2 Sat by Pulse Oximetry (%) 97 06/03/18 21:00 Constitutional: Yes: Well Nourished, No Distress, Calm Cardiovascular: Yes: WNL, Regular Rate and Rhythm Respiratory: Yes: WNL, Regular, CTA Bilaterally, On Nasal O2. No: Tachypnea, Wheezes Gastrointestinal: Yes: WNL, Normal Bowel Sounds, Soft, Abdomen, Obese. No: Distention, Tenderness Extremities: Yes: WNL Edema: No Neurological: Yes: WNL, Alert, Oriented Psychiatric: Yes: WNL, Alert, Oriented Labs: CBC, BMP 06/04/18 05:45 06/04/18 05:45 Discharge Summary Reason For Visit: UTI/COPD Hospital Course: 83 year old male admitted for acute chf exacerbation. Pt evaluated and managed by cardiology. dyspnea and orthopnea resolved with iv diuresis, pt transitioned to po torsemide. renal function mild trend up, will need to repeat BMP in 3 days to monitor. PCP informed of discharge and plan. Pt is medically stable for discharge home. Condition: Stable - Instructions Diet, Activity, Other Instructions: check BMP BLOOD WORK IN 3 days on THURSDAY F/U DIRECTED Referrals: Don Galeano MD [Staff Physician] - 1 Week George Rocha MD [Staff Physician] - 1 Week Disposition: VNS/HOME HEALTH CARE - Home Medications Comprehensive Discharge Medication List: Ambulatory Orders Atorvastatin Ca [Lipitor] 20 mg PO HS 12/03/12 Budesonide [Pulmicort 0.5 mg Nebulizer -] 1 neb NEB HS 12/03/12 Multivit-Min/FA/Lycopene/Lut [Centrum Silver Tablet] 1 each PO DAILY 12/03/12 Tiotropium [place] [Spiriva] 1 inh IH HS 12/03/12 Cyanocobalamin (Vitamin B-12) [Cyanocobalamin] 1,000 mcg PO DAILY 06/27/14 Cholecalciferol (Vitamin D3) [Vitamin D3 -] 2,000 unit PO DAILY 03/01/15 Risperidone [Risperdal] 1 mg PO HS 11/23/16 Albuterol Sulfate Inhaler - [Ventolin HFA Inhaler -] 1 - 2 inh PO QID PRN Aspirin Coated [Ecotrin -] 81 mg PO DAILY tablet.ec 11/14/17 Amlodipine Besylate 10 mg PO DAILY 06/01/18 Carvedilol [Coreg -] 12.25 mg PO BID 06/01/18 Ferrous Sulfate 325 mg PO DAILY 06/01/18 Latanoprost/Pf [Latanoprost 0.005% Eye Drop] 1 drop OU HS 06/01/18 Losartan Potassium 100 mg PO DAILY 06/01/18 Pantoprazole Sodium [Protonix -] 10 mg PO DAILY 06/01/18 Prednisone 5 mg PO DAILY 06/01/18 Sodium Chloride [Saline Nasal [place]] 2 spray NS BID 06/01/18 Torsemide [Demadex -] 20 mg PO DAILY #30 tablet 06/04/18
[2018-06-04 19:41] VITALS: BP 123/52; PULSE 68; TEMP 98
== END 2018-06-04 18:30 | disposition home health service (06) | DRG 291 ==
LOC: JER 18:00 → INTOOBSV 20:34 → JERBED 20:34 → J4W 06-02 01:01 → OBSVTOIN 06-02 12:18
PROVIDERS: ADMIT Internal Medicine; ATTEND Internal Medicine
DX: I13.0 Hypertensive heart and chronic kidney disease with heart failure and stage 1 through stage 4 chronic kidney disease, or unspecified chronic kidney disease (principal); I50.43 Acute on chronic combined systolic (congestive) and diastolic (congestive) heart failure; J96.21 Acute and chronic respiratory failure with hypoxia; N17.9 Acute kidney failure, unspecified; N39.0 Urinary tract infection, site not specified; E78.5 Hyperlipidemia, unspecified; J44.9 Chronic obstructive pulmonary disease, unspecified; K21.9 Gastro-esophageal reflux disease without esophagitis; E11.22 Type 2 diabetes mellitus with diabetic chronic kidney disease; N18.3 Chronic kidney disease, stage 3 (moderate); Z87.891 Personal history of nicotine dependence; I45.81 Long QT syndrome; M54.5 Low back pain; Z95.0 Presence of cardiac pacemaker; H91.90 Unspecified hearing loss, unspecified ear; I44.39 Other atrioventricular block; G47.33 Obstructive sleep apnea (adult) (pediatric); D64.9 Anemia, unspecified; I25.119 Atherosclerotic heart disease of native coronary artery with unspecified angina pectoris; Z99.81 Dependence on supplemental oxygen
CPT/HCPCS: 36415; 71045-TC-FY; 80048; 80053; 81003; 81015; 82550; 82962; 83036; 83735; 83880; 84100; 84484; 85025; 87086; 93005; 93010; 93306-TC; 94640; 94761; 97116-GP; 97161-GP; 99284-25; G0378; J1644; J2794; J7620

== ENCOUNTER 2018-12-18 20:26 | Inpatient (IN) | payer OTHER, BC ==
--- NOTE | 2018-12-18 20:41 | PDOC ---
History of Present Illness - General Chief Complaint: Shortness of Breath Stated Complaint: DIFFICULTY BREATHING Time Seen by Provider: 12/18/18 20:37 History Source: Patient Exam Limitations: Clinical Condition - History of Present Illness Initial Comments: The patient is an 83 year old male with a history of HTN, HLD, DM, CAD, CHF, COPD who presents for evaluation of shortness of breath. History is limited due to the patient's hard of hearing. He does endorse that he has experienced on and off shortness of breath and difficulty breathing. Otherwise the patient is not contributing whatsoever to allowing us to obtain a history. As per prior chart notes: Allergies: Iodinated contrast. Levofloxacin. Social history: No smoking. No alcohol. No illicit drugs. Surgical history: PPM, Cholecystectomy, PMD: Dr. Rocha Past History - Past Medical History Allergies/Adverse Reactions: Allergies Allergy/AdvReac Type Severity Reaction Status Date / Time Iodinated Contrast- Oral and Allergy Rash Verified 12/18/18 20:36 IV Dye [Iodinated Contrast Media - IV Dye] levofloxacin [From Levaquin] Allergy "RASH" Verified 12/18/18 20:36 Home Medications: Ambulatory Orders Atorvastatin Ca [Lipitor] 20 mg PO HS 12/03/12 Budesonide [Pulmicort 0.5 mg Nebulizer -] 1 neb NEB HS 12/03/12 Multivit-Min/FA/Lycopene/Lut [Centrum Silver Tablet] 1 each PO DAILY 12/03/12 Tiotropium [place] [Spiriva] 1 inh IH HS 12/03/12 Cyanocobalamin (Vitamin B-12) [Cyanocobalamin] 1,000 mcg PO DAILY 06/27/14 Cholecalciferol (Vitamin D3) [Vitamin D3 -] 2,000 unit PO DAILY 03/01/15 Risperidone [Risperdal] 1 mg PO HS 11/23/16 Albuterol Sulfate Inhaler - [Ventolin HFA Inhaler -] 1 - 2 inh PO QID PRN Aspirin Coated [Ecotrin -] 81 mg PO DAILY tablet.ec 11/14/17 Amlodipine Besylate 10 mg PO DAILY 06/01/18 Carvedilol [Coreg -] 12.25 mg PO BID 06/01/18 Ferrous Sulfate 325 mg PO DAILY 06/01/18 Latanoprost/Pf [Latanoprost 0.005% Eye Drop] 1 drop OU HS 06/01/18 Losartan Potassium 100 mg PO DAILY 06/01/18 Pantoprazole Sodium [Protonix -] 10 mg PO DAILY 06/01/18 Prednisone 5 mg PO DAILY 06/01/18 Sodium Chloride [Saline Nasal [place]] 2 spray NS BID 06/01/18 Torsemide [Demadex -] 20 mg PO DAILY #30 tablet 06/04/18 Anemia: No Asthma: (EMPHYSEMA-NASAL 2L) Cancer: No Cardiac Disorders: Yes CVA: No COPD: Yes (O2 dependent 2-3L NC) CHF: Yes (systolic) DVT: No Dementia: No Diabetes: Yes GI Disorders: Yes (GERD) Disorders: No HTN: Yes Hypercholesterolemia: Yes Liver Disease: No Seizures: No Thyroid Disease: No - Surgical History Abdominal Surgery: No Appendectomy: No Cardiac Surgery: Yes (Pacemaker) Cholecystectomy: Yes Lung Surgery: No Neurologic Surgery: No Orthopedic Surgery: No - Immunization History Td Vaccination: No TDAP Vaccination: No Immunization Up to Date: No - Suicide/Smoking/Psychosocial Hx Smoking History: Never smoked Have you smoked in the past 12 months: No If you are a former smoker, when did you quit?: 20 YRS AGO 'Breaking Loose' booklet given: 03/06/17 Hx Alcohol Use: No Drug/Substance Use Hx: No Substance Use Type: None Hx Substance Use Treatment: No Review of Systems - Review of Systems Able to Perform ROS?: No (not speaking) *Physical Exam - Vital Signs Last Vital Signs Temp Pulse Resp BP Pulse Ox 98.5 F 75 18 134/76 100 12/18/18 20:30 12/18/18 20:30 12/18/18 20:30 12/18/18 20:30 12/18/18 20:30 - Physical Exam General Appearance: Yes: Nourished, Disheveled, Obese HEENT: positive: EOMI, [place], Normal ENT Inspection. negative: Scleral Icterus ( R), Scleral Icterus (L) Neck: positive: Trachea midline, Supple. negative: Lymphadenopathy (R), Lymphadenopathy (L) Respiratory/Chest: positive: Crackles (Left sided crackles), Wheezing. negative : Lungs Clear Cardiovascular: positive: Regular Rhythm, Regular Rate Vascular Pulses: Dorsalis-Pedis (R): 2+, Doralis-Pedis (L): 2+ Gastrointestinal/Abdominal: positive: Soft. negative: Distended, Guarding, Rebound Rectal Exam: positive: deferred Lymphatic: negative: Adenopathy Musculoskeletal: positive: Normal Inspection. negative: CVA Tenderness Extremity: positive: Normal Capillary Refill, Normal Inspection Integumentary: positive: Normal Color, Dry, Warm Neurologic: positive: Fully Oriented, Alert, Normal Mood/Affect ED Treatment Course - LABORATORY CBC & Chemistry Diagram: 12/18/18 21:10 12/18/18 21:10 Medical Decision Making - Medical Decision Making The patient is an 83 year old male with a history of HTN, HLD, DM, CAD, CHF, COPD who presents for evaluation of shortness of breath. History is limited due to the patient's hard of hearing. He does endorse that he has experienced on and off shortness of breath and difficulty breathing. Otherwise the patient is not contributing whatsoever to allowing us to obtain a history. VS: WNL DDx IBNLT: COPD, CHF, PNA, pneumothorax, other infection. Plan: Labs, urine, EKG, CXR, re-assess. CXR shows a left sided infiltrate. Will antibiose with Ceftriaxone and azithromycin Patient's SOB could also be from a COPD exacerbation. Will treat with duonbes and steroids *DC/Admit/Observation/Transfer Diagnosis at time of Disposition: COPD (chronic obstructive pulmonary disease), PNA (pneumonia) - Discharge Dispostion Condition at time of disposition: Stable Decision to Admit order: Yes - Referrals - Patient Instructions - Post Discharge Activity
[2018-12-18] MEDS ORDERED: ALBUTEROL SO4 2.5/IPRATROPIUM 0.5 INH SOL 3 ML VIAL.NEB. NEB ONE ×2 (20:46→21:56)
[2018-12-18] MEDS ORDERED: methylPREDNISolone NA SUCC 125 MG/2 ML VIAL IVPB ONE (20:46)
[2018-12-18] MEDS ORDERED: SODIUM CHLORIDE 500 ML IV STA (20:46)
[2018-12-18 21:24] LABS: VENOUS PC02 45.8 mmHg (41-51); VENOUS PH 7.38 (7.31-7.41); VENOUS PO2 43.3 mmHg (30-40)
[2018-12-18 21:25] LABS: BASO % 0.6 % (0-2.0); EOS % 0.3 % (0-4.5); HEMATOCRIT 30.8 % (35.4-49); HEMOGLOBIN 10.2 GM/dL (11.7-16.9); LYMPH % 8.3 % (8-40); MCH 28.8 pg (25.7-33.7); MEAN CELL VOLUME 87.3 fl (80-96); MEAN PLT VOLUME 8.7 fl (7.5-11.1); MONO % 6.2 % (3.8-10.2); NEUT % 84.6 % (42.8-82.8); PLATELET COUNT 223 K/MM3 (134-434); RBC 3.53 M/mm3 (4.00-5.60); WHITE BLOOD COUNT 9.2 K/mm3 (4.0-10.0)
--- NOTE | 2018-12-18 21:50 | PDOC ---
Attending Attestation - HPI HPI: 12/18/18 21:53 The patient is an 83-year-old male with a past medical history significant for COPD, CHF CAD, DM, HLD, HTN and dementia presents to the emergency department with shortness of breath. The patient reports hes been having intermittent episodes of shortness of breath. Denies a cough, nausea, vomiting. Denies hx of [place]. The patient reports he lives home with his and 2 kids. The patient is a poor historian and hard of hearing. Allergies: levofloxacin and Iodinated contrast. Social history: Former smoker, no alcohol or drug use reported, PCP: Dr. Rocha - Physicial Exam PE: 12/18/18 21:53 GENERAL: The patient is awake and alert, unkempt. in no acute distress NECK: Normal ROM, supple, no lymphadenopathy, JVD, or masses LUNGS: Mild typenic crackles at the lung bases posteriorly. HEART: Regular rate and rhythm, normal S1 and S2, no murmurs, rubs or gallops ABDOMEN: Soft, nontender, normoactive bowel sounds. No guarding, no rebound. No masses EXTREMITIES: no lower extremity edema, no calf tenderness, pulses symmetric bilaterally. NEUROLOGICAL: Alert, awake and oriented, moving all extremities, clear speech. SKIN: Warm, Dry, no rashes or lesions noted. - Medical Decision Making 12/18/18 21:53 Documentation prepared by Ebony Pope, acting as medical housekeeper for Jenni Houston MD. <Ebony Pope - Last Filed: 12/18/18 21:53> - Resident Resident Name: Pete Davis - ED Attending Attestation I have performed the following: I have examined & evaluated the patient, The case was reviewed & discussed with the resident, I agree w/resident's findings & plan, Exceptions are as noted - Physicial Exam PE: 12/18/18 21:46 - Medical Decision Making 12/18/18 21:46 83 yo male with h/o copd htn chf on home oxygen here with c/o sob. no f/c denies cough. no leg swelling. denies cp. pt states he has been feeling sob off and on. pt is pooor historian due to very hard of hearing. on exam crackles at bilat lung bases. afebrile. mild tachypenia. differential includes CHF COPD pna effusion. anemia atypical angina. plan cxr labs ekg trop bnp. jessie will require admission. 12/19/18 00:21 pt cxr with patchy infiltrate on left base and right base. will treat with abx. was givein meds for copd nebs. steroids. will admit to observation. <Jenni Houston - Last Filed: 12/19/18 00:22> Heart Score/ECG Review #1 General ECG Interpretation: Normal Intervals (paced, left axis, TWI I, AVL.), No acute ischemic changes <Jenni Houston - Last Filed: 12/19/18 00:22>
[2018-12-18 21:57] LABS: N-TERMINAL BNP 2328.6 pg/ml (5-450)
[2018-12-18] MEDS ORDERED: methylPREDNISolone NA SUCC 125 MG/2 ML VIAL ONE (21:57)
[2018-12-18 21:58] LABS: ALBUMIN 3.4 g/dl (3.4-5.0); ALK PHOS 89 U/L (45-117); ANION GAP 8 MMOL/L (8-16); BILIRUBIN,TOTAL 0.5 mg/dL (0.2-1); BLOOD UREA NITROGEN 40 mg/dL (7-18); CALCIUM 8.5 mg/dL (8.5-10.1); CHLORIDE 103 mmol/L (98-107); CO2 27 mmol/L (21-32); CREATININE 2.6 mg/dL (0.55-1.3); GLUCOSE,RANDOM 121 mg/dL (74-106); POTASSIUM 3.9 mmol/L (3.5-5.1); SGOT/AST 8 U/L (15-37); SGPT/ALT 13 U/L (13-61); SODIUM 138 mmol/L (136-145); TOT PROT 6.9 g/dl (6.4-8.2)
[2018-12-19] MEDS ORDERED: CEFTRIAXONE 1,000 MG in DEXTROSE 5%-WATER - 50 ML IVPB ONE (00:21)
[2018-12-19] MEDS ORDERED: AZITHROMYCIN IVPB 500 MG in DEXTROSE 5%-WATER - 250 ML IVPB ONE (00:21)
[2018-12-19] MEDS ORDERED: AZITHROMYCIN IVPB 500 MG/250 ML BAG IVPB ONE (00:46)
[2018-12-19] MEDS ORDERED: CEFTRIAXONE 1 GM/50 ML BAG ONE (00:46)
--- NOTE | 2018-12-19 01:49 | PN ---
Teaching Attending Note Name of Resident: James Baker ATTENDING PHYSICIAN STATEMENT I saw and evaluated the patient. I reviewed the resident's note and discussed the case with the resident. I agree with the resident's findings and plan as documented. 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 The patient reports hes been having intermittent episodes of shortness of breath. Denies a cough, nausea, vomiting. Denies history of [place]. The patient reports he lives home with his and 2 kids. The patient is a poor historian and hard of hearing. Patient is allergic to Levofloxacin and Iodinated contrast. OBJECTIVE: Alert Vital Signs Period Temp Pulse Resp BP Sys/Mata Pulse Ox Last 24 Hr 98.5 F 75 18 134/76 100 HEENT: No Jaundice, eye redness or discharge, PERRLA, EOMI. Normocephalic, atraumatic. External ears are normal and hearing is grossly intact. No nasal discharge. Neck: Supple, nontender. No palpable adenopathy or thyromegaly. No JVD Chest: Good effort. Diminished breath sounds. Clear to percussion. Heart: Regular. No S3, rub or murmur Abdomen: Not distended, soft, nontender and no HSM. No rebound or guarding. Normal bowel sounds. Ext: Peripheral pulses intact. No leg edema. Skin: Warm and dry. No petechiae, rash or ecchymosis. Neuro: Alert. Oriented x3. CN 2-12 grossly intact. Sensation grossly intact in all four extremities and DTR are symmetric. Psych: Appropriate mood and affect. Good insight. Home Medications Medication Instructions Recorded Atorvastatin Ca [Lipitor] 20 mg PO HS 12/03/12 Budesonide [Pulmicort 0.5 mg 1 neb NEB HS 12/03/12 Nebulizer -] Multivit-Min/FA/Lycopene/Lut 1 each PO DAILY 12/03/12 [Centrum Silver Tablet] Tiotropium [place] [Spiriva] 1 inh IH HS 12/03/12 Cyanocobalamin (Vitamin B-12) 1,000 mcg PO DAILY 06/27/14 [Cyanocobalamin] Cholecalciferol (Vitamin D3) 2,000 unit PO DAILY 03/01/15 [Vitamin D3 -] Risperidone [Risperdal] 1 mg PO HS 11/23/16 Albuterol Sulfate Inhaler - 1 - 2 inh PO QID PRN 03/08/17 [Ventolin HFA Inhaler -] Aspirin Coated [Ecotrin -] 81 mg PO DAILY tablet.ec 11/14/17 Amlodipine Besylate 10 mg PO DAILY 06/01/18 Carvedilol [Coreg -] 12.25 mg PO BID 06/01/18 Ferrous Sulfate 325 mg PO DAILY 06/01/18 Latanoprost/Pf [Latanoprost 0.005% 1 drop OU HS 06/01/18 Eye Drop] Losartan Potassium 100 mg PO DAILY 06/01/18 Pantoprazole Sodium [Protonix -] 10 mg PO DAILY 06/01/18 Prednisone 5 mg PO DAILY 06/01/18 Sodium Chloride [Saline Nasal 2 spray NS BID 06/01/18 Irene] Torsemide [Demadex -] 20 mg PO DAILY #30 tablet 06/04/18 Abnormal Lab Results 12/18/18 12/18/18 12/18/18 21:10 21:10 21:10 RBC 3.53 L Hgb 10.2 L Hct 30.8 L RDW 16.0 H Neutrophils % 84.6 H POC VBG pO2 43.3 H BUN 40 H Creatinine 2.6 H Random Glucose 121 H AST 8 L B-Natriuretic Peptide 12/18/18 21:10 RBC Hgb Hct RDW Neutrophils % POC VBG pO2 BUN Creatinine Random Glucose AST B-Natriuretic Peptide 2328.6 H ASSESSMENT AND PLAN: 1. COPD Exacerbation/?Atypical Pneumonia - No obvious precipitating factor. CXR is poor inspiratory effort with enhancement of chronic increased lung markings vs ?congestion - no obvious new infiltrates. Send urine for legionella antigen. Will treat with IV solumedrol 40 mg q 8hours, douneb, IV Rocepihn and Azithromycin and continue oxygen support. Since COPD exacerbation can lead to acute CHF exacerbation, will switch daily PO lasix to IV and monitor standing weight. Restrict dietary salt intake. 2. DM For now, we will hold the home diabetes drugs and implement sliding scale insulin regimen. Provide comprehensive diabetes care with patient teaching and counseling about the importance of adherence to prescribed diabetes regimen, euglycemia, eye care and foot care. 3. CKD? - Etiology unclear. Needs basic nephrologic workup. Will consult nephrology and avoid nephrotoxic agents such as NSAIDS, aminoglycosides, contrast dyes and certain Alternative medicine products. 4. Anemia - Likely partly due to CKD. Do basic anemia work up including serial stool guaiacs, reticulocyte count and iron studies. 5. Hypertension - Restart outpatient antihypertensive drugs and revise regimen to ensure smooth [id number] good BP control. Nonpharmacologic measures to control hypertension like weight loss, salt restriction and exercise discussed. 6. DVT prophylaxis - Heparin 5000u sq tid. 7. Advance directives - Full code
[2018-12-19] MEDS ORDERED: ALBUTEROL SO4 0.083% IH SOL 2.5 MG/3 ML VIAL.NEB. NEB PRN ×2 (02:37→02:46)
--- NOTE | 2018-12-19 02:37 | HP ---
CHIEF COMPLAINT: SOB PCP: Dr. Jose Rocha HISTORY OF PRESENT ILLNESS: The patient is an 83 yo m w/ PMH HTN, DM, HLD, CAD, COPD (on 4L home O2, steroid dependent on 5mg pred. at home), Pulmonary apergillosis who presents to the ED c/o SOB. The patient is uncooperative with obtaining the history. He only mentions that he has trouble breathing and that it has been for "a while". The patient was unresponsive to any other clarifying questions. ER course was notable for: (1) CXR (2) rocephin/azithromycin (3) Recent Travel: unknown PAST MEDICAL HISTORY: see HPI PAST SURGICAL HISTORY: s/p PPM cholecystectomy Social History: unable to obtain Family History: Allergies Iodinated Contrast- Oral and IV Dye [Iodinated Contrast Media - IV Dye] Allergy (Verified 12/18/18 20:36) Rash UNCODED ALLERGY "CT SCAN DYE" levofloxacin [From Levaquin] Allergy (Verified 12/18/18 20:36) "RASH" HOME MEDICATIONS: Home Medications Medication Instructions Recorded Unobtainable 12/19/18 REVIEW OF SYSTEMS unable to obtain PHYSICAL EXAMINATION Vital Signs - 24 hr 12/18/18 12/18/18 20:30 21:00 Temperature 98.5 F Pulse Rate 75 Respiratory 18 Rate Blood Pressure 134/76 O2 Sat by Pulse 100 97 Oximetry (%) GENERAL: Awake, alert. easily rousable to voice. Will not respond to questions. Appears mildly short of breath. HEAD: Normal with no signs of trauma. EYES: unable to obtain as patient repeatedly closes eyes NECK: Normal range of motion, supple without lymphadenopathy, JVD, or masses. LUNGS: decreased air entry bilaterally. HEART: Regular rate and rhythm, normal S1 and S2 without murmur, rub or gallop. ABDOMEN: Soft, nontender, not distended, normoactive bowel sounds, no guarding, no rebound, no masses. No hepatomegaly or splenomegaly. LOWER EXTREMITIES: 2+ pulses, warm, well-perfused. No calf tenderness. No peripheral edema. NEUROLOGICAL: unable to obtain as patient not responding. SKIN: no rashes or lesions noted, normal capillary refill. Skin all across body was extremely dry and flakey. Laboratory Results - last 24 hr 12/18/18 12/18/18 12/18/18 21:10 21:10 21:10 WBC 9.2 RBC 3.53 L Hgb 10.2 L Hct 30.8 L MCV 87.3 MCH 28.8 MCHC 33.0 RDW 16.0 H Plt Count 223 MPV 8.7 Absolute Neuts (auto) 7.8 Neutrophils % 84.6 H Lymphocytes % 8.3 D Monocytes % 6.2 Eosinophils % 0.3 D Basophils % 0.6 Nucleated RBC % 0 VBG pH 7.38 POC VBG pCO2 45.8 POC VBG pO2 43.3 H VBG HCO3 26.7 VBG O2 Sat (Ritesh) 75.3 VBG Base Excess 1.8 Sodium 138 Potassium 3.9 Chloride 103 Carbon Dioxide 27 Anion Gap 8 BUN 40 H Creatinine 2.6 H Creat Clearance w eGFR 23.63 Random Glucose 121 H Calcium 8.5 Total Bilirubin 0.5 AST 8 L ALT 13 Alkaline Phosphatase 89 Troponin I B-Natriuretic Peptide Total Protein 6.9 Albumin 3.4 12/18/18 21:10 WBC RBC Hgb Hct MCV MCH MCHC RDW Plt Count MPV Absolute Neuts (auto) Neutrophils % Lymphocytes % Monocytes % Eosinophils % Basophils % Nucleated RBC % VBG pH POC VBG pCO2 POC VBG pO2 VBG HCO3 VBG O2 Sat (Ritesh) VBG Base Excess Sodium Potassium Chloride Carbon Dioxide Anion Gap BUN Creatinine Creat Clearance w eGFR Random Glucose Calcium Total Bilirubin AST ALT Alkaline Phosphatase Troponin I 0.02 B-Natriuretic Peptide 2328.6 H Total Protein Albumin ASSESSMENT/PLAN: The patient is an 83 yo m w/ extensive Cardiac and pulmonary hx who comes into the ED c/o SOB. #SOB possibly 2/2 to PNA vs COPD exacerbation -CXR shows possible diffuse infiltrate c/f atypical PNA. No discrete consolidation seen. -s/p Rocephin, azithro in ED, will continue daily -duonebs standing q6h -albuterol nebs q4h PRN -Spiriva -Medrol 40mg q8h IV -Urine for legionella #CHF -may be contributing to the patient's ssx -if patient does not improve on ABX, can try Lasix IV -daily weights #CKD -UA -patient's creatinine at baseline #DM -BGM achs -ISS achs #FEN -no fluids indicated -lytes WNL -diabetic sodium controlled diet #Prophy -heparin SQ 5k units q8h #dispo -med surg inpatient. -patient's medications must be verified Visit type - Emergency Visit Emergency Visit: Yes ED Registration Date: 12/19/18 Care time: The patient presented to the Emergency Department on the above date and was hospitalized for further evaluation of their emergent condition. - New Patient This patient is new to me today: Yes Date on this admission: 12/19/18 - Critical Care Critical Care patient: No
[2018-12-19 04:28] VITALS: BMI 28.8
[2018-12-19] MEDS: INSULIN SLIDING SCALE (NOVOLOG) 1 VIAL SQ SCH ×4 (06:18→21:21)
[2018-12-19] MEDS: HEPARIN NA (PORCINE) 5,000 UNITS/ML 1ML VIAL SQ SCH ×3 (06:18→21:16)
[2018-12-19] MEDS: ALBUTEROL SO4 2.5/IPRATROPIUM 0.5 INH SOL 3 ML VIAL.NEB. NEB SCH ×4 (07:35→20:04)
[2018-12-19] MEDS ORDERED: cefTRIAXone SODIUM 1 GM VIAL ONE (09:23)
[2018-12-19] MEDS ORDERED: DEXTROSE 5%-WATER - 50 ML IVPB ONE (09:23)
[2018-12-19] MEDS ORDERED: PT OWN MED DRAWER 7, Y5N ONE (09:23)
[2018-12-19] MEDS: CEFTRIAXONE 1 GM in DEXTROSE 5%-WATER - 50 ML IVPB SCH (09:35)
[2018-12-19] MEDS ORDERED: PANTOPRAZOLE 40 MG TABLET (FP) PO SCH ×2 (10:00→12:00)
[2018-12-19] MEDS ORDERED: methylPREDNISolone NA SUCC 40 MG/1 ML VIAL IVPUSH SCH (10:00)
[2018-12-19] MEDS: TIOTROPIUM BROMIDE 2.5 MCG (SPIRIVA) RESPIMAT INHALER IH SCH (11:12)
[2018-12-19] MEDS: AZITHROMYCIN IVPB 250 MG in DEXTROSE 5%-WATER - 250 ML IVPB SCH (11:12)
[2018-12-19] MEDS ORDERED: INSULIN (NOVOLOG) ASPART 100 UNITS/ML 10ML VIAL ONE ×2 (11:46→21:21)
[2018-12-19] MEDS ORDERED: FUROSEMIDE 40 MG/4 ML INJECTABLE VIAL IVPUSH ONE (11:54)
--- NOTE | 2018-12-19 12:06 | PN ---
Physical Exam: SUBJECTIVE: Patient seen and examined, C/o dyspnea, refuses to participate in further interview. OBJECTIVE: Vital Signs Period Temp Pulse Resp BP Sys/Mata Pulse Ox Last 24 Hr 98.3 F-98.5 F 75-90 18-20 113-134/60-81 97-100 Intake & Output 12/16/18 12/17/18 12/18/18 12/19/18 23:59 23:59 23:59 23:59 Intake Total 250 Balance 250 Weight 150 lb 168 lb GENERAL: The patient is awake, restless, oriented to self, but refuses to participate in further interview, keeps complaining of dyspnea HEAD: Normal with no signs of trauma. EYES: PERRL, extraocular movements intact, sclera anicteric, conjunctiva clear. No ptosis. ENT: Ears normal, nares patent, oropharynx clear without exudates, moist mucous membranes. NECK: soft, supple, unable to check for JVD as patient lying on his right side and refuses to move LUNGS: few dependent rales, decreased air entry, scattered wheezing HEART: Regular rate and rhythm, S1, S2 ABDOMEN: Soft, obese, NT EXTREMITIES: trace pedal edema NEUROLOGICAL: Awake, oriented to self but to participate in further interview, moves all extremities, further exam limited PSYCH: restless SKIN: Warm, dry, normal turgor, no rashes or lesions noted Laboratory Results - last 24 hr 12/18/18 12/18/18 12/18/18 21:10 21:10 21:10 WBC 9.2 RBC 3.53 L Hgb 10.2 L Hct 30.8 L MCV 87.3 MCH 28.8 MCHC 33.0 RDW 16.0 H Plt Count 223 MPV 8.7 Absolute Neuts (auto) 7.8 Neutrophils % 84.6 H Lymphocytes % 8.3 D Monocytes % 6.2 Eosinophils % 0.3 D Basophils % 0.6 Nucleated RBC % 0 VBG pH 7.38 POC VBG pCO2 45.8 POC VBG pO2 43.3 H VBG HCO3 26.7 VBG O2 Sat (Ritesh) 75.3 VBG Base Excess 1.8 Sodium 138 Potassium 3.9 Chloride 103 Carbon Dioxide 27 Anion Gap 8 BUN 40 H Creatinine 2.6 H Creat Clearance w eGFR 23.63 POC Glucometer Random Glucose 121 H Calcium 8.5 Total Bilirubin 0.5 AST 8 L ALT 13 Alkaline Phosphatase 89 Troponin I B-Natriuretic Peptide Total Protein 6.9 Albumin 3.4 12/18/18 12/19/18 12/19/18 21:10 05:43 11:23 WBC RBC Hgb Hct MCV MCH MCHC RDW Plt Count MPV Absolute Neuts (auto) Neutrophils % Lymphocytes % Monocytes % Eosinophils % Basophils % Nucleated RBC % VBG pH POC VBG pCO2 POC VBG pO2 VBG HCO3 VBG O2 Sat (Ritesh) VBG Base Excess Sodium Potassium Chloride Carbon Dioxide Anion Gap BUN Creatinine Creat Clearance w eGFR POC Glucometer 145 194 Random Glucose Calcium Total Bilirubin AST ALT Alkaline Phosphatase Troponin I 0.02 B-Natriuretic Peptide 2328.6 H Total Protein Albumin Active Medications Home Medications Medication Instructions Recorded Albuterol Sulfate Inhaler - 1 - 2 inh PO Q4H PRN 12/19/18 [Ventolin Hfa Inhaler -] Amlodipine Besylate 10 mg PO DAILY 12/19/18 Aspirin Coated [Ecotrin -] 81 mg PO DAILY 12/19/18 Atorvastatin Ca [Lipitor] 20 mg PO HS 12/19/18 Carvedilol [Coreg -] 12.5 mg PO BID 12/19/18 Latanoprost/Pf [Latanoprost 0.005% 7.5 ml OP DAILY 12/19/18 Eye Drop] Losartan Potassium 100 mg PO DAILY 12/19/18 Pantoprazole Sodium 40 mg PO DAILY 12/19/18 Prednisone 10 mg PO DAILY 12/19/18 Risperidone [Risperdal] 1 mg PO DAILY 12/19/18 Tiotropium [place] [Spiriva] 1 inh PO DAILY 12/19/18 Torsemide [Demadex] 20 mg PO DAILY 12/19/18 Active Medications Albuterol Sulfate (Ventolin 0.083% Nebulizer Soln -) 1 amp NEB Q4H PRN PRN Reason: SHORT OF BREATH/WHEEZING Albuterol/Ipratropium (Duoneb -) 1 amp NEB RQID DINESH Last Admin: 12/19/18 11:41 Dose: 1 amp Aspirin (Ecotrin -) 81 mg PO DAILY DINESH Atorvastatin Calcium (Lipitor -) 20 mg PO HS DINESH Carvedilol (Coreg -) 12.5 mg PO BID DINESH Furosemide (Lasix Injection -) 40 mg IVPUSH ONCE ONE Stop: 12/19/18 11:55 Heparin Sodium (Porcine) (Heparin -) 5,000 unit SQ TID [facility] Last Admin: 12/19/18 06:18 Dose: 5,000 unit Azithromycin 250 mg/ Dextrose 250 mls @ 250 mls/hr IVPB DAILY [facility] Last Admin: 12/19/18 11:12 Dose: 250 mls/hr Ceftriaxone Sodium 1 gm/ (Dextrose) 50 mls @ 100 mls/hr IVPB DAILY [facility] Last Admin: 12/19/18 09:35 Dose: 100 mls/hr Insulin Aspart (Novolog Vial Sliding Scale -) 1 vial SQ ACHS [facility]; Protocol Last Admin: 12/19/18 11:49 Dose: 2 units Methylprednisolone Sodium Succinate (Solu-Medrol -) 60 mg IVPUSH Q6H [facility] Pantoprazole Sodium (Protonix -) 40 mg PO DAILY [facility] Last Admin: 12/19/18 09:35 Dose: 40 mg Pantoprazole Sodium (Protonix -) 40 mg PO DAILY [facility] Risperidone (Risperdal -) 1 mg PO DAILY [facility] Tiotropium [place] (Spiriva Respimat) 2 puff IH DAILY [facility] Last Admin: 12/19/18 11:12 Dose: 2 puff CXR results reviewed EKG A sensing V pacing ASSESSMENT/PLAN: 83 yom with PMHx of oxygen/steroid-dependent COPD, Pulmonary aspergillosis, High degree AVB s/p PPM, Hearing impairment, systolic CHF (EF<40%), CAD with anginal pectoris, NIDDM, HLD, HTN and dementia admitted with dyspnea. -Acute respiratory distress -Suspected Bibasilar CAP -ACute COPD exacerbation -?Acute on chronic systolic heart failure exacerbation -h/o invasive pulmonary aspergillosis -High degree AVB s/p PPM -Systolic CHF -CAD with anginal pectoris -NIDDM -HTN -HLD -Dementia Plan: Still with ongoing dyspnea and significant wheezing. Increase solumedrol to 60 mg IV q6h. Standing and prn nebs. Ceftriaxone/azithromycin day 2. Blood/sputum cx and urine PNA studies. CT chest Trial with lasix 40 mg IV x 1, strict I/Os and daily weights. Cardiology/pulmonary input if fails to improve or concerns on imaging. Resume coreg. Hold amlodipine/losartan for now. Resume ASA/statin/lipitor. Risperidone, frequent orientation to environment, early ambulation with fall precautions DVTPPX heparin Dispo pending clinical improvement. Continues to be inpatient level of care given need for IV antibotics/steroids/ diuresis and close monitoring. Plan discussed with nursing, all questions answered. [facility] pharmacy called, meds reconciled. Visit type - Emergency Visit Emergency Visit: Yes ED Registration Date: 12/19/18 Care time: The patient presented to the Emergency Department on the above date and was hospitalized for further evaluation of their emergent condition. - New Patient This patient is new to me today: Yes Date on this admission: 12/19/18 - Critical Care Critical Care patient: No - Discharge Referral Referred to [facility] Med [facility] No
[2018-12-19] MEDS: CARVEDILOL 12.5 MG TABLET (FP) PO SCH ×2 (12:43→21:15)
[2018-12-19] MEDS: risperiDONE 1 MG TABLET (FP) PO SCH (12:43)
[2018-12-19] MEDS: methylPREDNISolone NA SUCC 40 MG/1 ML VIAL IVPUSH SCH ×2 (15:28→21:15)
[2018-12-19] MEDS: ATORVASTATIN CA 20 MG TABLET (FP) PO SCH (21:15)
[2018-12-20] MEDS: methylPREDNISolone NA SUCC 40 MG/1 ML VIAL IVPUSH SCH ×4 (03:00→20:50)
[2018-12-20] MEDS: HEPARIN NA (PORCINE) 5,000 UNITS/ML 1ML VIAL SQ SCH ×3 (06:51→21:10)
[2018-12-20] MEDS: INSULIN SLIDING SCALE (NOVOLOG) 1 VIAL SQ SCH ×4 (06:51→21:12)
[2018-12-20 07:34] LABS: BASO % 0.1 % (0-2.0); HEMATOCRIT 28.6 % (35.4-49); HEMOGLOBIN 9.4 GM/dL (11.7-16.9); MCH 28.1 pg (25.7-33.7); MCHC 32.9 g/dl (32.0-35.9); MEAN CELL VOLUME 85.4 fl (80-96); MEAN PLT VOLUME 8.7 fl (7.5-11.1); NEUT % 91.9 % (42.8-82.8); PLATELET COUNT 186 K/MM3 (134-434); RBC 3.35 M/mm3 (4.00-5.60); RDW 15.4 % (11.9-15.9); WHITE BLOOD COUNT 14.4 K/mm3 (4.0-10.0)
[2018-12-20 07:39] LABS: INR 1.04 (0.83-1.09); PROTHROMBIN TIME (PATIENT) 12.3 SEC (9.7-13.0)
[2018-12-20] MEDS: ALBUTEROL SO4 2.5/IPRATROPIUM 0.5 INH SOL 3 ML VIAL.NEB. NEB SCH ×4 (07:40→20:25)
[2018-12-20 07:58] LABS: ALK PHOS 65 U/L (45-117); ANION GAP 9 MMOL/L (8-16); BILIRUBIN,TOTAL 0.5 mg/dL (0.2-1); BLOOD UREA NITROGEN 55 mg/dL (7-18); CALCIUM 8.3 mg/dL (8.5-10.1); CHLORIDE 106 mmol/L (98-107); CO2 23 mmol/L (21-32); CREATININE 2.5 mg/dL (0.55-1.3); GLUCOSE,RANDOM 148 mg/dL (74-106); MAGNESIUM 2.6 mg/dL (1.8-2.4); PHOSPHOROUS 2.8 mg/dL (2.5-4.9); POTASSIUM 3.9 mmol/L (3.5-5.1); SGOT/AST 34 U/L (15-37); SGPT/ALT 16 U/L (13-61); SODIUM 138 mmol/L (136-145); TOT PROT 6.4 g/dl (6.4-8.2)
[2018-12-20] MEDS ORDERED: DEXTROSE 5%-WATER - 50 ML IVPB ONE (09:28)
[2018-12-20] MEDS ORDERED: cefTRIAXone SODIUM 1 GM VIAL ONE (09:28)
[2018-12-20] MEDS: CEFTRIAXONE 1 GM in DEXTROSE 5%-WATER - 50 ML IVPB SCH (09:32)
[2018-12-20] MEDS: CARVEDILOL 12.5 MG TABLET (FP) PO SCH ×2 (09:35→21:10)
[2018-12-20] MEDS: risperiDONE 1 MG TABLET (FP) PO SCH (09:35)
[2018-12-20] MEDS: PANTOPRAZOLE 40 MG TABLET (FP) PO SCH (09:35)
[2018-12-20] MEDS: ASPIRIN COATED 81 MG TABLET.EC PO SCH (09:35)
[2018-12-20] MEDS: TIOTROPIUM BROMIDE 2.5 MCG (SPIRIVA) RESPIMAT INHALER IH SCH (09:41)
[2018-12-20] MEDS: AZITHROMYCIN IVPB 250 MG in DEXTROSE 5%-WATER - 250 ML IVPB SCH (10:07)
--- NOTE | 2018-12-20 10:15 | EKG ---
Test Reason : Blood Pressure : / mmHG Vent. Rate : 073 BPM Atrial Rate : 073 BPM P-R Int : 146 ms QRS Dur : 194 ms QT Int : 480 ms P-R-T Axes : -26 -81 088 degrees QTc Int : 528 ms Atrial-sensed ventricular-paced rhythm ABNORMAL ECG WHEN COMPARED WITH ECG OF 01-JUN-2018 18:22, VENT. RATE HAS DECREASED BY 17 BPM Confirmed by JASBIR ZAMORA, ELICEO ([id number]) on 12/20/2018 10:15:15 AM Referred By: Confirmed By:ELICEO MARTELL MD
[2018-12-20 10:49] LABS: EPI CELLS 0.3 /HPF (0-5); URINE APPEARANCE CLOUDY; URINE BACTERIA 28.8 /hpf (NEGATIVE); URINE BILIRUBIN NEGATIVE (NEGATIVE); URINE CASTS 14 /hpf (0-8); URINE COLOR YELLOW; URINE GLUCOSE (UA) NEGATIVE (NEGATIVE); URINE KETONE NEGATIVE (NEGATIVE); URINE LEUK ESTERASE 3+ (NEGATIVE); URINE NITRITE NEGATIVE (NEGATIVE); URINE PROTEIN 1+ (NEGATIVE); URINE RBC 4 /hpf (0-4); URINE UROBILINOGEN 0.2 mg/dL (0.2-1.0); URINE WBC 86 /hpf (0-5)
[2018-12-20] MEDS ORDERED: INSULIN (NOVOLOG) ASPART 100 UNITS/ML 10ML VIAL ONE (11:32)
[2018-12-20 11:48] LABS: ANISOCYTOSIS 1+; MACROCYTOSIS 0; OVALOCYTE 1+; PLATELET ESTIMATE NORMAL; TEAR DROP CELLS 1+
[2018-12-20 11:59] LABS: YEAST NONE SEEN (NEGATIVE)
--- NOTE | 2018-12-20 14:09 | PN ---
Teaching Attending Note Name of Resident: Amber Ricci ATTENDING PHYSICIAN STATEMENT I saw and evaluated the patient. I reviewed the resident's note and discussed the case with the resident. I agree with the resident's findings and plan as documented with exceptions below. SUBJECTIVE: patient seen and examined. Breathing improved. Calm today. More co-operative. OBJECTIVE: Vital Signs Period Temp Pulse Resp BP Sys/Mata Pulse Ox Last 24 Hr 97.7 F-99.1 F 82-91 20-20 116-139/54-74 95-96 Intake & Output 12/17/18 12/18/18 12/19/18 12/20/18 23:59 23:59 23:59 23:59 Intake Total 500 150 Balance 500 150 Weight 150 lb 168 lb 152 lb 4.8 oz General: lying in bed in no acute distress, no use of accessory muscles of respiration CVS: no JVD visualized Chest: bibasilar rales, improved air entry, occasional wheezing Abdomen:Soft, obese, NT Extremities;no edema noted Home Medications Medication Instructions Recorded Albuterol Sulfate Inhaler - 1 - 2 inh PO Q4H PRN 12/19/18 [Ventolin Hfa Inhaler -] Amlodipine Besylate 10 mg PO DAILY 12/19/18 Aspirin Coated [Ecotrin -] 81 mg PO DAILY 12/19/18 Atorvastatin Ca [Lipitor] 20 mg PO HS 12/19/18 Carvedilol [Coreg -] 12.5 mg PO BID 12/19/18 Latanoprost/Pf [Latanoprost 0.005% 7.5 ml OP DAILY 12/19/18 Eye Drop] Losartan Potassium 100 mg PO DAILY 12/19/18 Pantoprazole Sodium 40 mg PO DAILY 12/19/18 Prednisone 10 mg PO DAILY 12/19/18 Risperidone [Risperdal] 1 mg PO DAILY 12/19/18 Tiotropium [place] [Spiriva] 1 inh PO DAILY 12/19/18 Torsemide [Demadex] 20 mg PO DAILY 12/19/18 Active Medications Albuterol Sulfate (Ventolin 0.083% Nebulizer Soln -) 1 amp NEB Q4H PRN PRN Reason: SHORT OF BREATH/WHEEZING Albuterol/Ipratropium (Duoneb -) 1 amp NEB RQID [facility]INESH Last Admin: 12/20/18 11:32 Dose: 1 amp Aspirin (Ecotrin -) 81 mg PO DAILY [facility] Last Admin: 12/20/18 09:35 Dose: 81 mg Atorvastatin Calcium (Lipitor -) 20 mg PO HS [facility] Last Admin: 12/19/18 21:15 Dose: 20 mg Carvedilol (Coreg -) 12.5 mg PO BID [facility] Last Admin: 12/20/18 09:35 Dose: 12.5 mg Furosemide (Lasix Injection -) 40 mg IVPUSH ONCE ONE Stop: 12/20/18 14:31 Heparin Sodium (Porcine) (Heparin -) 5,000 unit SQ TID [facility] Last Admin: 12/20/18 06:51 Dose: 5,000 unit Azithromycin 250 mg/ Dextrose 250 mls @ 250 mls/hr IVPB DAILY [facility] Last Admin: 12/20/18 10:07 Dose: 250 mls/hr Ceftriaxone Sodium 1 gm/ (Dextrose) 50 mls @ 100 mls/hr IVPB DAILY [facility] Last Admin: 12/20/18 09:32 Dose: 100 mls/hr Insulin Aspart (Novolog Vial Sliding Scale -) 1 vial SQ ACHS [facility]; Protocol Last Admin: 12/20/18 11:39 Dose: 2 units Methylprednisolone Sodium Succinate (Solu-Medrol -) 40 mg IVPUSH Q6H-IV DINESH Pantoprazole Sodium (Protonix -) 40 mg PO DAILY [facility] Last Admin: 12/20/18 09:35 Dose: 40 mg Risperidone (Risperdal -) 1 mg PO DAILY [facility] Last Admin: 12/20/18 09:35 Dose: 1 mg Tiotropium [place] (Spiriva Respimat) 2 puff IH DAILY [facility] Last Admin: 12/20/18 09:41 Dose: 2 puff Laboratory Results - last 24 hr 12/19/18 12/19/18 12/20/18 17:36 21:13 05:59 WBC RBC Hgb Hct MCV MCH MCHC RDW Plt Count MPV Absolute Neuts (auto) Neutrophils % Neutrophils % (Manual) Band Neutrophils % Lymphocytes % Lymphocytes % (Manual) Monocytes % Monocytes % (Manual) Eosinophils % Eosinophils % (Manual) Basophils % Basophils % (Manual) Myelocytes % (Man) Promyelocytes % (Man) Blast Cells % (Manual) Nucleated RBC % Metamyelocytes Hypochromia Platelet Estimate Polychromasia Poikilocytosis Anisocytosis Microcytosis Macrocytosis Tear Drop Cells Ovalocytes PT with INR INR PTT (Actin FS) Sodium Potassium Chloride Carbon Dioxide Anion Gap BUN Creatinine Creat Clearance w eGFR POC Glucometer 133 154 158 Random Glucose Hemoglobin A1c % Calcium Phosphorus Magnesium Total Bilirubin AST ALT Alkaline Phosphatase Total Protein Albumin Urine Color Urine Appearance Urine pH Ur Specific [place] Urine Protein Urine Glucose (UA) Urine Ketones Urine Blood Urine Nitrite Urine Bilirubin Urine Urobilinogen Ur Leukocyte Esterase Urine WBC (Auto) Urine RBC (Auto) Urine Casts (Auto) U Pathogenic Cast Auto U Epithel Cells (Auto) Urine Bacteria (Auto) Urine Yeast (Auto) 12/20/18 12/20/18 12/20/18 07:00 07:00 07:00 WBC 14.4 H RBC 3.35 L Hgb 9.4 L Hct 28.6 L MCV 85.4 MCH 28.1 MCHC 32.9 RDW 15.4 Plt Count 186 MPV 8.7 Absolute Neuts (auto) 13.3 H Neutrophils % 91.9 H Neutrophils % (Manual) 92.9 H Band Neutrophils % 0.0 Lymphocytes % 5.0 L D Lymphocytes % (Manual) 2.0 L D Monocytes % 3.0 L Monocytes % (Manual) 5 D Eosinophils % 0.0 D Eosinophils % (Manual) 0.0 Basophils % 0.1 Basophils % (Manual) 0.0 Myelocytes % (Man) 0 Promyelocytes % (Man) 0 Blast Cells % (Manual) 0 Nucleated RBC % 0 Metamyelocytes 0 Hypochromia 0 Platelet Estimate Normal Polychromasia 0 Poikilocytosis 1+ Anisocytosis 1+ Microcytosis 1+ Macrocytosis 0 Tear Drop Cells 1+ Ovalocytes 1+ PT with INR 12.30 INR 1.04 PTT (Actin FS) 28.0 Sodium 138 Potassium 3.9 Chloride 106 Carbon Dioxide 23 Anion Gap 9 BUN 55 H Creatinine 2.5 H Creat Clearance w eGFR 24.73 POC Glucometer Random Glucose 148 H Hemoglobin A1c % Calcium 8.3 L Phosphorus 2.8 Magnesium 2.6 H Total Bilirubin 0.5 AST 34 ALT 16 Alkaline Phosphatase 65 Total Protein 6.4 Albumin 3.0 L Urine Color Urine Appearance Urine pH Ur Specific [place] Urine Protein Urine Glucose (UA) Urine Ketones Urine Blood Urine Nitrite Urine Bilirubin Urine Urobilinogen Ur Leukocyte Esterase Urine WBC (Auto) Urine RBC (Auto) Urine Casts (Auto) U Pathogenic Cast Auto U Epithel Cells (Auto) Urine Bacteria (Auto) Urine Yeast (Auto) 12/20/18 12/20/18 12/20/18 07:00 10:00 11:35 WBC RBC Hgb Hct MCV MCH MCHC RDW Plt Count MPV Absolute Neuts (auto) Neutrophils % Neutrophils % (Manual) Band Neutrophils % Lymphocytes % Lymphocytes % (Manual) Monocytes % Monocytes % (Manual) Eosinophils % Eosinophils % (Manual) Basophils % Basophils % (Manual) Myelocytes % (Man) Promyelocytes % (Man) Blast Cells % (Manual) Nucleated RBC % Metamyelocytes Hypochromia Platelet Estimate Polychromasia Poikilocytosis Anisocytosis Microcytosis Macrocytosis Tear Drop Cells Ovalocytes PT with INR INR PTT (Actin FS) Sodium Potassium Chloride Carbon Dioxide Anion Gap BUN Creatinine Creat Clearance w eGFR POC Glucometer 174 Random Glucose Hemoglobin A1c % 5.6 Calcium Phosphorus Magnesium Total Bilirubin AST ALT Alkaline Phosphatase Total Protein Albumin Urine Color Yellow Urine Appearance Cloudy Urine pH 5.0 Ur Specific [place] 1.017 Urine Protein 1+ H Urine Glucose (UA) Negative Urine Ketones Negative Urine Blood Negative Urine Nitrite Negative Urine Bilirubin Negative Urine Urobilinogen 0.2 Ur Leukocyte Esterase 3+ H Urine WBC (Auto) 86 Urine RBC (Auto) 4 Urine Casts (Auto) 14 U Pathogenic Cast Auto None seen U Epithel Cells (Auto) 0.3 Urine Bacteria (Auto) 28.8 Urine Yeast (Auto) None seen Microbiology 12/19/18 00:58 Blood - Peripheral Venous Blood Culture - Preliminary NO GROWTH OBTAINED AFTER 24 HOURS, INCUBATION TO CONTINUE FOR 4 DAYS. 12/19/18 00:58 Blood - Peripheral Venous Blood Culture - Preliminary NO GROWTH OBTAINED AFTER 24 HOURS, INCUBATION TO CONTINUE FOR [address] chest images and results reviewed ASSESSMENT AND PLAN: 83 yom with PMHx of oxygen/steroid-dependent COPD, Pulmonary aspergillosis, High degree AVB s/p PPM, Hearing impairment, systolic CHF (EF<40%), CAD with anginal pectoris, NIDDM, HLD, HTN and dementia admitted with dyspnea. 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 WBC high, suspect steroid induced. Taper solumedrol 40 mg IV Q6h. Ceftriaxone/azithromycin dy 3. Follow up blood cx/urine PNA studies and sputum cx as able. Additional lasix 40 mg IV x 1, strict I/Os and daily weights. Cardiology/pulmonary input if fails to improve or concerns on imaging. Continue coreg. Hold amlodipine/losartan for now. Monitor renal function on diuresis. Continue ASA/statin/lipitor. Risperidone, frequent orientation to environment, early ambulation with fall precautions DVTPPX heparin Dispo pending clinical improvement. PT eval and CM consult for d/c planning in 1-2 days if continues to improve. Plan discussed with nursing in detail, all questions answered.
[2018-12-20] MEDS ORDERED: FUROSEMIDE 40 MG/4 ML INJECTABLE VIAL IVPUSH ONE (14:30)
--- NOTE | 2018-12-20 15:02 | PN ---
Physical Exam: SUBJECTIVE: Patient seen and examined; sitting up eating brearfast; not talking to me ; not answering my questions; would not look at me OBJECTIVE: Vital Signs Period Temp Pulse Resp BP Sys/Mata Pulse Ox Last 24 Hr 97.7 F-99.1 F 82-91 20-20 116-139/54-74 95-96 would not let me examine Laboratory Results - last 24 hr 12/19/18 12/19/18 12/20/18 17:36 21:13 05:59 WBC RBC Hgb Hct MCV MCH MCHC RDW Plt Count MPV Absolute Neuts (auto) Neutrophils % Neutrophils % (Manual) Band Neutrophils % Lymphocytes % Lymphocytes % (Manual) Monocytes % Monocytes % (Manual) Eosinophils % Eosinophils % (Manual) Basophils % Basophils % (Manual) Myelocytes % (Man) Promyelocytes % (Man) Blast Cells % (Manual) Nucleated RBC % Metamyelocytes Hypochromia Platelet Estimate Polychromasia Poikilocytosis Anisocytosis Microcytosis Macrocytosis Tear Drop Cells Ovalocytes PT with INR INR PTT (Actin FS) Sodium Potassium Chloride Carbon Dioxide Anion Gap BUN Creatinine Creat Clearance w eGFR POC Glucometer 133 154 158 Random Glucose Hemoglobin A1c % Calcium Phosphorus Magnesium Total Bilirubin AST ALT Alkaline Phosphatase Total Protein Albumin Urine Color Urine Appearance Urine pH Ur Specific [place] Urine Protein Urine Glucose (UA) Urine Ketones Urine Blood Urine Nitrite Urine Bilirubin Urine Urobilinogen Ur Leukocyte Esterase Urine WBC (Auto) Urine RBC (Auto) Urine Casts (Auto) U Pathogenic Cast Auto U Epithel Cells (Auto) Urine Bacteria (Auto) Urine Yeast (Auto) 12/20/18 12/20/18 12/20/18 07:00 07:00 07:00 WBC 14.4 H RBC 3.35 L Hgb 9.4 L Hct 28.6 L MCV 85.4 MCH 28.1 MCHC 32.9 RDW 15.4 Plt Count 186 MPV 8.7 Absolute Neuts (auto) 13.3 H Neutrophils % 91.9 H Neutrophils % (Manual) 92.9 H Band Neutrophils % 0.0 Lymphocytes % 5.0 L D Lymphocytes % (Manual) 2.0 L D Monocytes % 3.0 L Monocytes % (Manual) 5 D Eosinophils % 0.0 D Eosinophils % (Manual) 0.0 Basophils % 0.1 Basophils % (Manual) 0.0 Myelocytes % (Man) 0 Promyelocytes % (Man) 0 Blast Cells % (Manual) 0 Nucleated RBC % 0 Metamyelocytes 0 Hypochromia 0 Platelet Estimate Normal Polychromasia 0 Poikilocytosis 1+ Anisocytosis 1+ Microcytosis 1+ Macrocytosis 0 Tear Drop Cells 1+ Ovalocytes 1+ PT with INR 12.30 INR 1.04 PTT (Actin FS) 28.0 Sodium 138 Potassium 3.9 Chloride 106 Carbon Dioxide 23 Anion Gap 9 BUN 55 H Creatinine 2.5 H Creat Clearance w eGFR 24.73 POC Glucometer Random Glucose 148 H Hemoglobin A1c % Calcium 8.3 L Phosphorus 2.8 Magnesium 2.6 H Total Bilirubin 0.5 AST 34 ALT 16 Alkaline Phosphatase 65 Total Protein 6.4 Albumin 3.0 L Urine Color Urine Appearance Urine pH Ur Specific [place] Urine Protein Urine Glucose (UA) Urine Ketones Urine Blood Urine Nitrite Urine Bilirubin Urine Urobilinogen Ur Leukocyte Esterase Urine WBC (Auto) Urine RBC (Auto) Urine Casts (Auto) U Pathogenic Cast Auto U Epithel Cells (Auto) Urine Bacteria (Auto) Urine Yeast (Auto) 12/20/18 12/20/18 12/20/18 07:00 10:00 11:35 WBC RBC Hgb Hct MCV MCH MCHC RDW Plt Count MPV Absolute Neuts (auto) Neutrophils % Neutrophils % (Manual) Band Neutrophils % Lymphocytes % Lymphocytes % (Manual) Monocytes % Monocytes % (Manual) Eosinophils % Eosinophils % (Manual) Basophils % Basophils % (Manual) Myelocytes % (Man) Promyelocytes % (Man) Blast Cells % (Manual) Nucleated RBC % Metamyelocytes Hypochromia Platelet Estimate Polychromasia Poikilocytosis Anisocytosis Microcytosis Macrocytosis Tear Drop Cells Ovalocytes PT with INR INR PTT (Actin FS) Sodium Potassium Chloride Carbon Dioxide Anion Gap BUN Creatinine Creat Clearance w eGFR POC Glucometer 174 Random Glucose Hemoglobin A1c % 5.6 Calcium Phosphorus Magnesium Total Bilirubin AST ALT Alkaline Phosphatase Total Protein Albumin Urine Color Yellow Urine Appearance Cloudy Urine pH 5.0 Ur Specific [place] 1.017 Urine Protein 1+ H Urine Glucose (UA) Negative Urine Ketones Negative Urine Blood Negative Urine Nitrite Negative Urine Bilirubin Negative Urine Urobilinogen 0.2 Ur Leukocyte Esterase 3+ H Urine WBC (Auto) 86 Urine RBC (Auto) 4 Urine Casts (Auto) 14 U Pathogenic Cast Auto None seen U Epithel Cells (Auto) 0.3 Urine Bacteria (Auto) 28.8 Urine Yeast (Auto) None seen Active Medications Generic Name Dose Route Start Last Admin Trade Name Freq PRN Reason Stop Dose Admin Albuterol Sulfate 1 amp 12/19/18 02:46 Ventolin 0.083% Nebulizer Soln - NEB Q4H PRN SHORT OF BREATH/WHEEZING Albuterol/Ipratropium 1 amp 12/19/18 08:00 12/20/18 11:32 Duoneb - NEB 1 amp RQID DINESH Administration Aspirin 81 mg 12/20/18 10:00 12/20/18 09:35 Ecotrin - PO 81 mg DAILY DINESH Administration Atorvastatin Calcium 20 mg 12/19/18 22:00 12/19/18 21:15 Lipitor - PO 20 mg HS DINESH Administration Carvedilol 12.5 mg 12/19/18 12:00 12/20/18 09:35 Coreg - PO 12.5 mg BID DINESH Administration Heparin Sodium (Porcine) 5,000 unit 12/19/18 06:00 12/20/18 14:39 Heparin - SQ 5,000 unit TID DINESH Administration Azithromycin 250 mg/ Dextrose 250 mls @ 250 mls/hr 12/19/18 10:00 12/20/18 10 :07 IVPB 250 mls/hr DAILY DINESH Administration Ceftriaxone Sodium 1 gm/ 50 mls @ 100 mls/hr 12/19/18 10:00 12/20/18 09:32 Dextrose IVPB 100 mls/hr DAILY DINESH Administration Insulin Aspart 1 vial 12/19/18 07:00 12/20/18 11:39 Novolog Vial Sliding Scale - SQ 2 units ACHS DINESH Administration Protocol Methylprednisolone Sodium Succinate 40 mg 12/20/18 15:00 12/20/18 14:39 Solu-Medrol - IVPUSH 40 mg Q6H-IV DINESH Administration Pantoprazole Sodium 40 mg 12/20/18 10:00 12/20/18 09:35 Protonix - PO 40 mg DAILY DINESH Administration Risperidone 1 mg 12/19/18 12:00 12/20/18 09:35 Risperdal - PO 1 mg DAILY DINESH Administration Tiotropium [place] 2 puff 12/19/18 10:00 12/20/18 09:41 Spiriva Respimat IH 2 puff DAILY DINESH Administration ASSESSMENT/PLAN: This is a 83 year old male with a history of COPD on oxygen and steroids at home , hx of pulmonary aspergillosis, high degree AVB s/p PPM, IGIUGIG, systolic CHF, CAD , DM, HTN, HLD, dementia presented with sob, found to be in acute exacerbation of COPD with PNA. #Acute on chronic CHF -daily weights; stirct I/Os; -lasix prn #acute exacerbation of COPD -inhaled bronchodilators -supplemental O2 ; keep o2 88-92% -IV steroids; solumedrol; taper as per clinical status #CAP: -azithromycin and ceftriaxone #CKD stage III-IV (baseline cr around 2.5): stable #h/o invasive pulmonary aspergillosis #CAD -carvedelol; statin; holding remington for now - #NIDDM -insulin SS -bgm #HTN #HLD #Dementia VTE : heparin sq GI: protonix Visit type - Emergency Visit Emergency Visit: Yes ED Registration Date: 12/19/18 Care time: The patient presented to the Emergency Department on the above date and was hospitalized for further evaluation of their emergent condition. - New Patient This patient is new to me today: Yes Date on this admission: 12/20/18 - Critical Care Critical Care patient: No
[2018-12-20] MEDS: ATORVASTATIN CA 20 MG TABLET (FP) PO SCH (21:10)
[2018-12-21] MEDS: methylPREDNISolone NA SUCC 40 MG/1 ML VIAL IVPUSH SCH ×4 (02:39→18:38)
[2018-12-21] MEDS: HEPARIN NA (PORCINE) 5,000 UNITS/ML 1ML VIAL SQ SCH ×3 (05:44→21:36)
[2018-12-21] MEDS: INSULIN SLIDING SCALE (NOVOLOG) 1 VIAL SQ SCH ×4 (06:05→21:37)
[2018-12-21] MEDS ORDERED: INSULIN (NOVOLOG) ASPART 100 UNITS/ML 10ML VIAL ONE ×3 (06:41→21:24)
[2018-12-21 07:08] LABS: HEMATOCRIT 27.1 % (35.4-49); HEMOGLOBIN 9.1 GM/dL (11.7-16.9); MCH 29.1 pg (25.7-33.7); MCHC 33.7 g/dl (32.0-35.9); MEAN CELL VOLUME 86.5 fl (80-96); MEAN PLT VOLUME 9.2 fl (7.5-11.1); MONO % 2.9 % (3.8-10.2); NEUT % 93.1 % (42.8-82.8); PLATELET COUNT 185 K/MM3 (134-434); RBC 3.13 M/mm3 (4.00-5.60); RDW 15.6 % (11.9-15.9); WHITE BLOOD COUNT 11.4 K/mm3 (4.0-10.0)
[2018-12-21 08:07] LABS: ANION GAP 11 MMOL/L (8-16); BLOOD UREA NITROGEN 68 mg/dL (7-18); CALCIUM 8.3 mg/dL (8.5-10.1); CHLORIDE 104 mmol/L (98-107); CO2 22 mmol/L (21-32); CREATININE 2.6 mg/dL (0.55-1.3); GLUCOSE,RANDOM 149 mg/dL (74-106); POTASSIUM 3.3 mmol/L (3.5-5.1); SODIUM 137 mmol/L (136-145)
[2018-12-21] MEDS: ALBUTEROL SO4 2.5/IPRATROPIUM 0.5 INH SOL 3 ML VIAL.NEB. NEB SCH ×4 (08:59→20:50)
[2018-12-21] MEDS ORDERED: DEXTROSE 5%-WATER - 50 ML IVPB ONE (09:14)
[2018-12-21] MEDS ORDERED: cefTRIAXone SODIUM 1 GM VIAL ONE (09:14)
[2018-12-21] MEDS: risperiDONE 1 MG TABLET (FP) PO SCH (09:22)
[2018-12-21] MEDS: CARVEDILOL 12.5 MG TABLET (FP) PO SCH ×2 (09:22→21:37)
[2018-12-21] MEDS: PANTOPRAZOLE 40 MG TABLET (FP) PO SCH (09:22)
[2018-12-21] MEDS: ASPIRIN COATED 81 MG TABLET.EC PO SCH (09:22)
[2018-12-21] MEDS: CEFTRIAXONE 1 GM in DEXTROSE 5%-WATER - 50 ML IVPB SCH (09:23)
[2018-12-21] MEDS ORDERED: FUROSEMIDE 40 MG/4 ML INJECTABLE VIAL IVPUSH ONE (10:12)
--- NOTE | 2018-12-21 10:16 | PN ---
Teaching Attending Note Name of Resident: Amber Ricci ATTENDING PHYSICIAN STATEMENT I saw and evaluated the patient. I reviewed the resident's note and discussed the case with the resident. I agree with the resident's findings and plan as documented with exceptions below. SUBJECTIVE: patient seen and examined. breathing improved. Screaming about not having milk, not co-operative with further interview. OBJECTIVE: Vital Signs Period Temp Pulse Resp BP Sys/Mata Pulse Ox Last 24 Hr 98.0 F-99.0 F 75-86 20-20 109-145/45-75 95 Intake & Output 12/18/18 12/19/18 12/20/18 12/21/18 23:59 23:59 23:59 23:59 Intake Total 500 860 240 Output Total 500 800 Balance 500 360 -560 Weight 150 lb 168 lb 152 lb 4.8 oz 154 lb 2 oz Genera; sitting in bed having breakfast, in no acute distress Chest: improved air entry, decreased wheezing, no rales appreciated Abdomen:Soft, NT, ND Extremities: 1+ pedal edema Home Medications Medication Instructions Recorded Albuterol Sulfate Inhaler - 1 - 2 inh PO Q4H PRN 12/19/18 [Ventolin Hfa Inhaler -] Amlodipine Besylate 10 mg PO DAILY 12/19/18 Aspirin Coated [Ecotrin -] 81 mg PO DAILY 12/19/18 Atorvastatin Ca [Lipitor] 20 mg PO HS 12/19/18 Carvedilol [Coreg -] 12.5 mg PO BID 12/19/18 Latanoprost/Pf [Latanoprost 0.005% 7.5 ml OP DAILY 12/19/18 Eye Drop] Losartan Potassium 100 mg PO DAILY 12/19/18 Pantoprazole Sodium 40 mg PO DAILY 12/19/18 Prednisone 10 mg PO DAILY 12/19/18 Risperidone [Risperdal] 1 mg PO DAILY 12/19/18 Tiotropium [place] [Spiriva] 1 inh PO DAILY 12/19/18 Torsemide [Demadex] 20 mg PO DAILY 12/19/18 Active Medications Albuterol Sulfate (Ventolin 0.083% Nebulizer Soln -) 1 amp NEB Q4H PRN PRN Reason: SHORT OF BREATH/WHEEZING Albuterol/Ipratropium (Duoneb -) 1 amp NEB RQID DINESH Last Admin: 12/21/18 08:59 Dose: 1 amp Aspirin (Ecotrin -) 81 mg PO DAILY [facility] Last Admin: 12/21/18 09:22 Dose: 81 mg Atorvastatin Calcium (Lipitor -) 20 mg PO HS [facility] Last Admin: 12/20/18 21:10 Dose: 20 mg Carvedilol (Coreg -) 12.5 mg PO BID [facility] Last Admin: 12/21/18 09:22 Dose: 12.5 mg Furosemide (Lasix Injection -) 40 mg IVPUSH ONCE ONE Stop: 12/21/18 10:13 Heparin Sodium (Porcine) (Heparin -) 5,000 unit SQ TID [facility] Last Admin: 12/21/18 05:44 Dose: 5,000 unit Azithromycin 250 mg/ Dextrose 250 mls @ 250 mls/hr IVPB DAILY [facility] Last Admin: 12/20/18 10:07 Dose: 250 mls/hr Ceftriaxone Sodium 1 gm/ (Dextrose) 50 mls @ 100 mls/hr IVPB DAILY [facility] Last Admin: 12/21/18 09:23 Dose: 100 mls/hr Insulin Aspart (Novolog Vial Sliding Scale -) 1 vial SQ ACHS [facility]; Protocol Last Admin: 12/21/18 06:05 Dose: Not Given Methylprednisolone Sodium Succinate (Solu-Medrol -) 40 mg IVPUSH Q8H [facility] Pantoprazole Sodium (Protonix -) 40 mg PO DAILY [facility] Last Admin: 12/21/18 09:22 Dose: 40 mg Risperidone (Risperdal -) 1 mg PO DAILY [facility] Last Admin: 12/21/18 09:22 Dose: 1 mg Laboratory Results - last 24 hr 12/20/18 12/20/18 12/20/18 07:00 10:00 11:35 WBC RBC Hgb Hct MCV MCH MCHC RDW Plt Count MPV Absolute Neuts (auto) Neutrophils % Neutrophils % (Manual) 92.9 H Band Neutrophils % 0.0 Lymphocytes % Lymphocytes % (Manual) 2.0 L D Monocytes % Monocytes % (Manual) 5 D Eosinophils % Eosinophils % (Manual) 0.0 Basophils % Basophils % (Manual) 0.0 Myelocytes % (Man) 0 Promyelocytes % (Man) 0 Blast Cells % (Manual) 0 Nucleated RBC % Metamyelocytes 0 Hypochromia 0 Platelet Estimate Normal Polychromasia 0 Poikilocytosis 1+ Anisocytosis 1+ Microcytosis 1+ Macrocytosis 0 Tear Drop Cells 1+ Ovalocytes 1+ Sodium Potassium Chloride Carbon Dioxide Anion Gap BUN Creatinine Creat Clearance w eGFR POC Glucometer 174 Random Glucose Calcium Urine Color Yellow Urine Appearance Cloudy Urine pH 5.0 Ur Specific [place] 1.017 Urine Protein 1+ H Urine Glucose (UA) Negative Urine Ketones Negative Urine Blood Negative Urine Nitrite Negative Urine Bilirubin Negative Urine Urobilinogen 0.2 Ur Leukocyte Esterase 3+ H Urine WBC (Auto) 86 Urine RBC (Auto) 4 Urine Casts (Auto) 14 U Pathogenic Cast Auto None seen U Epithel Cells (Auto) 0.3 Urine Bacteria (Auto) 28.8 Urine Yeast (Auto) None seen 12/20/18 12/20/18 12/21/18 16:30 21:09 05:27 WBC RBC Hgb Hct MCV MCH MCHC RDW Plt Count MPV Absolute Neuts (auto) Neutrophils % Neutrophils % (Manual) Band Neutrophils % Lymphocytes % Lymphocytes % (Manual) Monocytes % Monocytes % (Manual) Eosinophils % Eosinophils % (Manual) Basophils % Basophils % (Manual) Myelocytes % (Man) Promyelocytes % (Man) Blast Cells % (Manual) Nucleated RBC % Metamyelocytes Hypochromia Platelet Estimate Polychromasia Poikilocytosis Anisocytosis Microcytosis Macrocytosis Tear Drop Cells Ovalocytes Sodium Potassium Chloride Carbon Dioxide Anion Gap BUN Creatinine Creat Clearance w eGFR POC Glucometer 115 166 150 Random Glucose Calcium Urine Color Urine Appearance Urine pH Ur Specific [place] Urine Protein Urine Glucose (UA) Urine Ketones Urine Blood Urine Nitrite Urine Bilirubin Urine Urobilinogen Ur Leukocyte Esterase Urine WBC (Auto) Urine RBC (Auto) Urine Casts (Auto) U Pathogenic Cast Auto U Epithel Cells (Auto) Urine Bacteria (Auto) Urine Yeast (Auto) 12/21/18 12/21/18 06:00 06:00 WBC 11.4 H RBC 3.13 L Hgb 9.1 L Hct 27.1 L MCV 86.5 MCH 29.1 MCHC 33.7 RDW 15.6 Plt Count 185 MPV 9.2 Absolute Neuts (auto) 10.6 H Neutrophils % 93.1 H Neutrophils % (Manual) Band Neutrophils % Lymphocytes % 4.0 L Lymphocytes % (Manual) Monocytes % 2.9 L Monocytes % (Manual) Eosinophils % 0.0 Eosinophils % (Manual) Basophils % 0.0 Basophils % (Manual) Myelocytes % (Man) Promyelocytes % (Man) Blast Cells % (Manual) Nucleated RBC % 0 Metamyelocytes Hypochromia Platelet Estimate Polychromasia Poikilocytosis Anisocytosis Microcytosis Macrocytosis Tear Drop Cells Ovalocytes Sodium 137 Potassium 3.3 L Chloride 104 Carbon Dioxide 22 Anion Gap 11 BUN 68 H Creatinine 2.6 H Creat Clearance w eGFR 23.63 POC Glucometer Random Glucose 149 H Calcium 8.3 L Urine Color Urine Appearance Urine pH Ur Specific [place] Urine Protein Urine Glucose (UA) Urine Ketones Urine Blood Urine Nitrite Urine Bilirubin Urine Urobilinogen Ur Leukocyte Esterase Urine WBC (Auto) Urine RBC (Auto) Urine Casts (Auto) U Pathogenic Cast Auto U Epithel Cells (Auto) Urine Bacteria (Auto) Urine Yeast (Auto) Microbiology 12/19/18 00:58 Blood - Peripheral Venous Blood Culture - Preliminary NO GROWTH OBTAINED AFTER 48 HOURS, INCUBATION TO CONTINUE FOR 3 DAYS. 12/19/18 00:58 Blood - Peripheral Venous Blood Culture - Preliminary NO GROWTH OBTAINED AFTER 48 HOURS, INCUBATION TO CONTINUE FOR 3 DAYS. ASSESSMENT AND PLAN: ASSESSMENT AND PLAN: 83 yom with PMHx of oxygen/steroid-dependent COPD, Pulmonary aspergillosis, High degree AVB s/p PPM, Hearing impairment, systolic CHF (EF<40%), CAD with anginal pectoris, NIDDM, HLD, HTN and dementia admitted with dyspnea. 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 WBC high, suspect steroid induced, improved. Taper solumedrol 40 mg IV q8h, transition to PO In 1-2 days. Ceftriaxone/azithromycin dy 4. blood cx neg so far. sputum cx/urine PNA studies if patient able. s/p lasix 40 mg IV x 1 since admission. resume torsemide 20 mg daily today. Monitor renal function. Strict I/os, daily weights. Cardiology/pulmonary input if fails to improve or concerns on imaging. Continue coreg. Hold amlodipine/losartan for now. Continue ASA/statin/lipitor. Risperidone, frequent orientation to environment, early ambulation with fall precautions PT eval. OOB DVTPPX heparin Dispo d/c in 2-3 days on PO steroids and abx if continues to improve. Plan discussed with nursing in detail, all questions answered.
[2018-12-21] MEDS: AZITHROMYCIN IVPB 250 MG in DEXTROSE 5%-WATER - 250 ML IVPB SCH (10:25)
[2018-12-21] MEDS: TORSEMIDE 20 MG TABLET (FP) PO SCH (10:33)
[2018-12-21 10:56] LABS: ANISOCYTOSIS 1+; MACROCYTOSIS 0; OVALOCYTE 1+; PLATELET ESTIMATE NORMAL; TEAR DROP CELLS 1+
--- NOTE | 2018-12-21 12:56 | PN ---
Physical Exam: SUBJECTIVE: Patient seen and examined; breathing improved; on O2, steroids tapered OBJECTIVE: Vital Signs Period Temp Pulse Resp BP Sys/Mata Pulse Ox Last 24 Hr 98.0 F-99.0 F 75-86 20-23 109-145/45-75 95-96 GENERAL: The patient is awake, alert, and fully oriented, in no acute distress. NECK: Trachea midline, full range of motion, supple. LUNGS; decreased breath sounds; HEART: Regular rate and rhythm, S1, S2 without murmur, rub or gallop. ABDOMEN: Soft, nontender, nondistended, normoactive bowel sounds, no guarding, no rebound, no hepatosplenomegaly, no masses. EXTREMITIES: 2+ pulses, warm, well-perfused, no edema. NEUROLOGICAL: Cranial nerves II through XII grossly intact. Normal speech, gait not observed. PSYCH: flat affect; no eye contact; SKIN: Warm, dry, normal turgor, no rashes or lesions noted Laboratory Results - last 24 hr 12/20/18 12/20/18 12/21/18 16:30 21:09 05:27 WBC RBC Hgb Hct MCV MCH MCHC RDW Plt Count MPV Absolute Neuts (auto) Neutrophils % Neutrophils % (Manual) Band Neutrophils % Lymphocytes % Lymphocytes % (Manual) Monocytes % Monocytes % (Manual) Eosinophils % Eosinophils % (Manual) Basophils % Basophils % (Manual) Myelocytes % (Man) Promyelocytes % (Man) Blast Cells % (Manual) Nucleated RBC % Metamyelocytes Hypochromia Platelet Estimate Polychromasia Poikilocytosis Anisocytosis Microcytosis Macrocytosis Tear Drop Cells Ovalocytes Sodium Potassium Chloride Carbon Dioxide Anion Gap BUN Creatinine Creat Clearance w eGFR POC Glucometer 115 166 150 Random Glucose Calcium 12/21/18 12/21/18 12/21/18 06:00 06:00 11:10 WBC 11.4 H RBC 3.13 L Hgb 9.1 L Hct 27.1 L MCV 86.5 MCH 29.1 MCHC 33.7 RDW 15.6 Plt Count 185 MPV 9.2 Absolute Neuts (auto) 10.6 H Neutrophils % 93.1 H Neutrophils % (Manual) 89.9 H Band Neutrophils % 0.0 Lymphocytes % 4.0 L Lymphocytes % (Manual) 7.1 L D Monocytes % 2.9 L Monocytes % (Manual) 2 L Eosinophils % 0.0 Eosinophils % (Manual) 0.0 Basophils % 0.0 Basophils % (Manual) 0.0 Myelocytes % (Man) 1 D Promyelocytes % (Man) 0 Blast Cells % (Manual) 0 Nucleated RBC % 0 Metamyelocytes 0 Hypochromia 0 Platelet Estimate Normal Polychromasia 0 Poikilocytosis 1+ Anisocytosis 1+ Microcytosis 1+ Macrocytosis 0 Tear Drop Cells 1+ Ovalocytes 1+ Sodium 137 Potassium 3.3 L Chloride 104 Carbon Dioxide 22 Anion Gap 11 BUN 68 H Creatinine 2.6 H Creat Clearance w eGFR 23.63 POC Glucometer 167 Random Glucose 149 H Calcium 8.3 L Active Medications Generic Name Dose Route Start Last Admin Trade Name Freq PRN Reason Stop Dose Admin Albuterol Sulfate 1 amp 12/19/18 02:46 Ventolin 0.083% Nebulizer Soln - NEB Q4H PRN SHORT OF BREATH/WHEEZING Albuterol/Ipratropium 1 amp 12/19/18 08:00 12/21/18 08:59 Duoneb - NEB 1 amp RQID DINESH Administration Aspirin 81 mg 12/20/18 10:00 12/21/18 09:22 Ecotrin - PO 81 mg DAILY DINESH Administration Atorvastatin Calcium 20 mg 12/19/18 22:00 12/20/18 21:10 Lipitor - PO 20 mg HS DINESH Administration Carvedilol 12.5 mg 12/19/18 12:00 12/21/18 09:22 Coreg - PO 12.5 mg BID DINESH Administration Heparin Sodium (Porcine) 5,000 unit 12/19/18 06:00 12/21/18 05:44 Heparin - SQ 5,000 unit TID DINESH Administration Azithromycin 250 mg/ Dextrose 250 mls @ 250 mls/hr 12/19/18 10:00 12/21/18 10 :25 IVPB 250 mls/hr DAILY DINESH Administration Ceftriaxone Sodium 1 gm/ 50 mls @ 100 mls/hr 12/19/18 10:00 12/21/18 09:23 Dextrose IVPB 100 mls/hr DAILY DINESH Administration Insulin Aspart 1 vial 12/19/18 07:00 12/21/18 11:26 Novolog Vial Sliding Scale - SQ 2 units ACHS DINESH Administration Protocol Methylprednisolone Sodium Succinate 40 mg 12/21/18 14:00 Solu-Medrol - IVPUSH Q8H-IV DINESH Pantoprazole Sodium 40 mg 12/20/18 10:00 12/21/18 09:22 Protonix - PO 40 mg DAILY DINESH Administration Risperidone 1 mg 12/19/18 12:00 12/21/18 09:22 Risperdal - PO 1 mg DAILY DINESH Administration Torsemide 20 mg 12/21/18 10:30 12/21/18 10:33 Demadex - PO 20 mg DAILY DINESH Administration ASSESSMENT/PLAN: This is a 83 year old male with a history of COPD on oxygen and steroids at home , hx of pulmonary aspergillosis, high degree AVB s/p PPM, [place], systolic CHF, CAD , DM, HTN, HLD, dementia presented with sob, found to be in acute exacerbation of COPD with PNA. 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 - New Patient This patient is new to me today: No - Critical Care Critical Care patient: No
[2018-12-21] MEDS: ATORVASTATIN CA 20 MG TABLET (FP) PO SCH (21:37)
[2018-12-22] MEDS: methylPREDNISolone NA SUCC 40 MG/1 ML VIAL IVPUSH SCH ×3 (02:10→21:55)
[2018-12-22] MEDS: HEPARIN NA (PORCINE) 5,000 UNITS/ML 1ML VIAL SQ SCH ×3 (06:23→21:55)
[2018-12-22] MEDS: INSULIN SLIDING SCALE (NOVOLOG) 1 VIAL SQ SCH ×4 (06:24→21:56)
[2018-12-22 07:07] LABS: BASO % 0.1 % (0-2.0); HEMATOCRIT 26.2 % (35.4-49); LYMPH % 4.6 % (8-40); MCH 29.1 pg (25.7-33.7); MCHC 34.3 g/dl (32.0-35.9); MEAN CELL VOLUME 84.8 fl (80-96); MEAN PLT VOLUME 9.1 fl (7.5-11.1); MONO % 5.1 % (3.8-10.2); NEUT % 90.2 % (42.8-82.8); PLATELET COUNT 172 K/MM3 (134-434); RBC 3.09 M/mm3 (4.00-5.60); RDW 15.5 % (11.9-15.9); WHITE BLOOD COUNT 8.6 K/mm3 (4.0-10.0)
[2018-12-22 07:38] LABS: ANION GAP 10 MMOL/L (8-16); BLOOD UREA NITROGEN 69 mg/dL (7-18); CALCIUM 7.8 mg/dL (8.5-10.1); CHLORIDE 103 mmol/L (98-107); CO2 25 mmol/L (21-32); CREATININE 2.6 mg/dL (0.55-1.3); GLUCOSE,RANDOM 140 mg/dL (74-106); MAGNESIUM 2.5 mg/dL (1.8-2.4); PHOSPHOROUS 4.5 mg/dL (2.5-4.9); POTASSIUM 3.3 mmol/L (3.5-5.1); SODIUM 139 mmol/L (136-145)
[2018-12-22] MEDS: ALBUTEROL SO4 2.5/IPRATROPIUM 0.5 INH SOL 3 ML VIAL.NEB. NEB SCH ×4 (08:30→21:18)
[2018-12-22] MEDS ORDERED: POTASSIUM CHLORIDE TABS 20 MEQ TABLET.ER (FP) PO ONE (09:45)
[2018-12-22] MEDS ORDERED: cefTRIAXone SODIUM 1 GM VIAL ONE (09:58)
[2018-12-22] MEDS ORDERED: PT OWN MED DRAWER 7, Y5N ONE (09:58)
[2018-12-22] MEDS ORDERED: DEXTROSE 5%-WATER - 50 ML IVPB ONE (09:58)
[2018-12-22] MEDS: CARVEDILOL 12.5 MG TABLET (FP) PO SCH ×2 (10:23→21:55)
[2018-12-22] MEDS: ASPIRIN COATED 81 MG TABLET.EC PO SCH (10:24)
[2018-12-22] MEDS: risperiDONE 1 MG TABLET (FP) PO SCH (10:24)
[2018-12-22] MEDS: PANTOPRAZOLE 40 MG TABLET (FP) PO SCH (10:24)
[2018-12-22] MEDS: AZITHROMYCIN IVPB 250 MG in DEXTROSE 5%-WATER - 250 ML IVPB SCH (10:24)
[2018-12-22] MEDS: CEFTRIAXONE 1 GM in DEXTROSE 5%-WATER - 50 ML IVPB SCH (10:26)
--- NOTE | 2018-12-22 10:51 | PN ---
Physical Exam: SUBJECTIVE: Patient seen and examined; NOT responding; talking; or looking at me OBJECTIVE: Vital Signs Period Temp Pulse Resp BP Sys/Mata Pulse Ox Last 24 Hr 98.0 F-98.8 F 68-76 20-24 115-142/49-70 96 GENERAL: lying in bed eyes closed LUNG: decreased breath sounds; scattered rhonchi Laboratory Results - last 24 hr 12/21/18 12/21/18 12/21/18 06:00 11:10 16:27 WBC RBC Hgb Hct MCV MCH MCHC RDW Plt Count MPV Absolute Neuts (auto) Neutrophils % Neutrophils % (Manual) 89.9 H Band Neutrophils % 0.0 Lymphocytes % Lymphocytes % (Manual) 7.1 L D Monocytes % Monocytes % (Manual) 2 L Eosinophils % Eosinophils % (Manual) 0.0 Basophils % Basophils % (Manual) 0.0 Myelocytes % (Man) 1 D Promyelocytes % (Man) 0 Blast Cells % (Manual) 0 Nucleated RBC % Metamyelocytes 0 Hypochromia 0 Platelet Estimate Normal Polychromasia 0 Poikilocytosis 1+ Anisocytosis 1+ Microcytosis 1+ Macrocytosis 0 Tear Drop Cells 1+ Ovalocytes 1+ Sodium Potassium Chloride Carbon Dioxide Anion Gap BUN Creatinine Creat Clearance w eGFR POC Glucometer 167 135 Random Glucose Calcium Phosphorus Magnesium 12/21/18 12/22/18 12/22/18 21:05 05:30 05:30 WBC 8.6 RBC 3.09 L Hgb 9.0 L Hct 26.2 L MCV 84.8 MCH 29.1 MCHC 34.3 RDW 15.5 Plt Count 172 MPV 9.1 Absolute Neuts (auto) 7.7 Neutrophils % 90.2 H Neutrophils % (Manual) Band Neutrophils % Lymphocytes % 4.6 L Lymphocytes % (Manual) Monocytes % 5.1 Monocytes % (Manual) Eosinophils % 0.0 Eosinophils % (Manual) Basophils % 0.1 D Basophils % (Manual) Myelocytes % (Man) Promyelocytes % (Man) Blast Cells % (Manual) Nucleated RBC % 0 Metamyelocytes Hypochromia Platelet Estimate Polychromasia Poikilocytosis Anisocytosis Microcytosis Macrocytosis Tear Drop Cells Ovalocytes Sodium 139 Potassium 3.3 L Chloride 103 Carbon Dioxide 25 Anion Gap 10 BUN 69 H Creatinine 2.6 H Creat Clearance w eGFR 23.63 POC Glucometer 163 Random Glucose 140 H Calcium 7.8 L Phosphorus 4.5 Magnesium 2.5 H 12/22/18 05:43 WBC RBC Hgb Hct MCV MCH MCHC RDW Plt Count MPV Absolute Neuts (auto) Neutrophils % Neutrophils % (Manual) Band Neutrophils % Lymphocytes % Lymphocytes % (Manual) Monocytes % Monocytes % (Manual) Eosinophils % Eosinophils % (Manual) Basophils % Basophils % (Manual) Myelocytes % (Man) Promyelocytes % (Man) Blast Cells % (Manual) Nucleated RBC % Metamyelocytes Hypochromia Platelet Estimate Polychromasia Poikilocytosis Anisocytosis Microcytosis Macrocytosis Tear Drop Cells Ovalocytes Sodium Potassium Chloride Carbon Dioxide Anion Gap BUN Creatinine Creat Clearance w eGFR POC Glucometer 146 Random Glucose Calcium Phosphorus Magnesium Active Medications Generic Name Dose Route Start Last Admin Trade Name Freq PRN Reason Stop Dose Admin Albuterol Sulfate 1 amp 12/19/18 02:46 Ventolin 0.083% Nebulizer Soln - NEB Q4H PRN SHORT OF BREATH/WHEEZING Albuterol/Ipratropium 1 amp 12/19/18 08:00 12/21/18 20:50 Duoneb - NEB 1 amp RQID DINESH Administration Aspirin 81 mg 12/20/18 10:00 12/22/18 10:24 Ecotrin - PO 81 mg DAILY DINESH Administration Atorvastatin Calcium 20 mg 12/19/18 22:00 12/21/18 21:37 Lipitor - PO 20 mg HS DINESH Administration Carvedilol 12.5 mg 12/19/18 12:00 12/22/18 10:23 Coreg - PO 12.5 mg BID DINESH Administration Heparin Sodium (Porcine) 5,000 unit 12/19/18 06:00 12/22/18 06:23 Heparin - SQ 5,000 unit TID DINESH Administration Azithromycin 250 mg/ Dextrose 250 mls @ 250 mls/hr 12/19/18 10:00 12/22/18 10 :24 IVPB 250 mls/hr DAILY DINESH Administration Ceftriaxone Sodium 1 gm/ 50 mls @ 100 mls/hr 12/19/18 10:00 12/22/18 10:26 Dextrose IVPB 100 mls/hr DAILY DINESH Administration Insulin Aspart 1 vial 12/19/18 07:00 12/22/18 06:24 Novolog Vial Sliding Scale - SQ Not Given ACHS DINESH Protocol Methylprednisolone Sodium Succinate 40 mg 12/22/18 10:00 12/22/18 10:25 Solu-Medrol - IVPUSH 40 mg BID DINESH Administration Pantoprazole Sodium 40 mg 12/20/18 10:00 12/22/18 10:24 Protonix - PO 40 mg DAILY DINESH Administration Risperidone 1 mg 12/19/18 12:00 12/22/18 10:24 Risperdal - PO 1 mg DAILY DINESH Administration Torsemide 20 mg 12/21/18 10:30 12/21/18 10:33 Demadex - PO 20 mg DAILY DINESH Administration ASSESSMENT/PLAN: This is a 83 year old male with a history of COPD on oxygen and steroids at home , hx of pulmonary aspergillosis, high degree AVB s/p PPM, [place], systolic CHF, CAD , DM, HTN, HLD, dementia presented with sob, found to be in acute exacerbation of COPD with PNA. 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 flat affect; does not respond to me or look at me ? very disheveled VTE ppl; heparin sq; Visit type - Emergency Visit Emergency Visit: Yes ED Registration Date: 12/19/18 Care time: The patient presented to the Emergency Department on the above date and was hospitalized for further evaluation of their emergent condition. - New Patient This patient is new to me today: No - Critical Care Critical Care patient: No
[2018-12-22] MEDS: TORSEMIDE 20 MG TABLET (FP) PO SCH (12:19)
--- NOTE | 2018-12-22 15:34 | PN ---
Teaching Attending Note Name of Resident: Amber Ricci ATTENDING PHYSICIAN STATEMENT I saw and evaluated the patient. I reviewed the resident's note and discussed the case with the resident. I agree with the resident's findings and plan as documented. SUBJECTIVE: Mr Vee says he feels fine but otherwise I cannot obtain further subjective as he will not answer questions. When in the room he was speaking with RN and saying he feels fine and wants to go home. OBJECTIVE: Last Vital Signs Temp Pulse Resp BP Pulse Ox 36.8 C 71 24 H 127/69 96 12/22/18 14:51 12/22/18 14:51 12/22/18 09:06 12/22/18 14:51 12/21/18 22:00 Gen: nad Pulm: sounds ctab but unable to fully auscultate as patient began to get agitated when listening too long CV: rrr w/o m/r/g, but as above Abd: +bs, did not palpate as patient was not receptive at time of exam Ext: no c/c/e ASSESSMENT AND PLAN: Problem List - Problems (1) COPD (chronic obstructive pulmonary disease) Assessment/Plan: -patient says he is feeling better -precursory lung exam is clear but unable to do full lung exam -continue solumedrol today, can change to prednisone tomorrow -continue duonebs -consider adding inhaled steroid with LABA on discharge Code(s): J44.9 - CHRONIC OBSTRUCTIVE PULMONARY DISEASE, UNSPECIFIED Qualifiers: (2) Pneumonia Assessment/Plan: -continue rocephin and zithromax Code(s): J18.9 - PNEUMONIA, UNSPECIFIED ORGANISM (3) Acute and chronic respiratory failure with hypoxia Assessment/Plan: -much improved -on home oxygen -saturating at home level Code(s): J96.21 - ACUTE AND CHRONIC RESPIRATORY FAILURE WITH HYPOXIA (4) Anemia Assessment/Plan: -stable Code(s): D64.9 - ANEMIA, UNSPECIFIED Qualifiers: Anemia type: unspecified type Qualified Code(s): D64.9 - Anemia, unspecified (5) CKD (chronic kidney disease) Assessment/Plan: -baseline Code(s): N18.9 - CHRONIC KIDNEY DISEASE, UNSPECIFIED Qualifiers: Chronic kidney disease stage: stage 3 (moderate) Qualified Code(s): N18.3 - Chronic kidney disease, stage 3 (moderate) (6) CHF (congestive heart failure) Assessment/Plan: -not in exacerbation -continue torsemide Code(s): I50.9 - HEART FAILURE, UNSPECIFIED Qualifiers: Heart failure type: combined systolic and diastolic Heart failure chronicity: chronic Qualified Code(s): I50.42 - Chronic combined systolic ( congestive) and diastolic (congestive) heart failure (7) Hyperlipidemia Assessment/Plan: -continue statin Code(s): E78.5 - HYPERLIPIDEMIA, UNSPECIFIED Qualifiers: Hyperlipidemia type: pure hypercholesterolemia Qualified Code(s): E78.00 - Pure hypercholesterolemia, unspecified (8) Hypertension Assessment/Plan: -controlled Code(s): I10 - ESSENTIAL (PRIMARY) HYPERTENSION Qualifiers: Hypertension type: essential hypertension Qualified Code(s): I10 - Essential (primary) hypertension
[2018-12-22] MEDS: ATORVASTATIN CA 20 MG TABLET (FP) PO SCH (21:55)
[2018-12-23] MEDS: HEPARIN NA (PORCINE) 5,000 UNITS/ML 1ML VIAL SQ SCH ×3 (06:26→21:37)
[2018-12-23] MEDS: INSULIN SLIDING SCALE (NOVOLOG) 1 VIAL SQ SCH ×4 (06:27→21:38)
[2018-12-23] MEDS: ALBUTEROL SO4 2.5/IPRATROPIUM 0.5 INH SOL 3 ML VIAL.NEB. NEB SCH ×4 (07:45→21:00)
[2018-12-23 08:17] LABS: BASO % 0.1 % (0-2.0); HEMATOCRIT 27.6 % (35.4-49); HEMOGLOBIN 9.3 GM/dL (11.7-16.9); LYMPH % 4.8 % (8-40); MCH 28.7 pg (25.7-33.7); MCHC 33.7 g/dl (32.0-35.9); MEAN CELL VOLUME 85.2 fl (80-96); MEAN PLT VOLUME 8.9 fl (7.5-11.1); MONO % 7.1 % (3.8-10.2); PLATELET COUNT 173 K/MM3 (134-434); RBC 3.24 M/mm3 (4.00-5.60); RDW 15.6 % (11.9-15.9)
[2018-12-23 08:55] LABS: ANION GAP 10 MMOL/L (8-16); BLOOD UREA NITROGEN 71 mg/dL (7-18); CALCIUM 7.9 mg/dL (8.5-10.1); CHLORIDE 104 mmol/L (98-107); CO2 25 mmol/L (21-32); CREATININE 2.4 mg/dL (0.55-1.3); GLUCOSE,RANDOM 131 mg/dL (74-106); MAGNESIUM 2.4 mg/dL (1.8-2.4); PHOSPHOROUS 4.2 mg/dL (2.5-4.9); POTASSIUM 3.7 mmol/L (3.5-5.1); SODIUM 140 mmol/L (136-145)
[2018-12-23] MEDS ORDERED: SODIUM CHLORIDE 1,000 ML IV SCH (09:30)
[2018-12-23] MEDS ORDERED: DEXTROSE 5%-WATER - 50 ML IVPB ONE (10:07)
[2018-12-23] MEDS ORDERED: cefTRIAXone SODIUM 1 GM VIAL ONE (10:07)
[2018-12-23] MEDS: CARVEDILOL 12.5 MG TABLET (FP) PO SCH ×2 (10:30→21:37)
[2018-12-23] MEDS: risperiDONE 1 MG TABLET (FP) PO SCH (10:31)
[2018-12-23] MEDS: ASPIRIN COATED 81 MG TABLET.EC PO SCH (10:31)
[2018-12-23] MEDS: PANTOPRAZOLE 40 MG TABLET (FP) PO SCH (10:31)
[2018-12-23] MEDS: methylPREDNISolone NA SUCC 40 MG/1 ML VIAL IVPUSH SCH (10:31)
[2018-12-23] MEDS: AZITHROMYCIN IVPB 250 MG in DEXTROSE 5%-WATER - 250 ML IVPB SCH (10:31)
[2018-12-23] MEDS: TORSEMIDE 20 MG TABLET (FP) PO SCH (10:31)
[2018-12-23] MEDS: CEFTRIAXONE 1 GM in DEXTROSE 5%-WATER - 50 ML IVPB SCH (10:33)
--- NOTE | 2018-12-23 11:21 | PN ---
Teaching Attending Note Name of Resident: Amber Ricci ATTENDING PHYSICIAN STATEMENT I saw and evaluated the patient. I reviewed the resident's note and discussed the case with the resident. I agree with the resident's findings and plan as documented. SUBJECTIVE: Mr Vee says he is feeling well and is without complaint. Says he got up and walked yesterday. He states his breathing feels good today. Denies cp and n/v. OBJECTIVE: Last Vital Signs Temp Pulse Resp BP Pulse Ox 36.9 C 62 20 122/57 L 97 12/23/18 06:52 12/23/18 08:45 12/23/18 08:45 12/23/18 08:45 12/22/18 21:00 Gen: nad, much better spirits Pulm: ctab w/o w/r/r CV: rrr w/o m/r/g Abd: +bs, s/nt/nd Ext: no c/c/e CBC, BMP 12/23/18 07:43 12/23/18 07:43 ASSESSMENT AND PLAN: (1) COPD (chronic obstructive pulmonary disease) Assessment/Plan: -much improved -change to oral prednisone for taper -stable for discharge from this standpoint Code(s): J44.9 - CHRONIC OBSTRUCTIVE PULMONARY DISEASE, UNSPECIFIED Qualifiers: (2) Pneumonia Assessment/Plan: -can d/c zithromax -rocephin day 5 -can change to augmentin on discharge Code(s): J18.9 - PNEUMONIA, UNSPECIFIED ORGANISM (3) Acute and chronic respiratory failure with hypoxia Assessment/Plan: -much improved -on home oxygen -saturating at home level Code(s): J96.21 - ACUTE AND CHRONIC RESPIRATORY FAILURE WITH HYPOXIA (4) Anemia Assessment/Plan: -stable Code(s): D64.9 - ANEMIA, UNSPECIFIED Qualifiers: Anemia type: unspecified type Qualified Code(s): D64.9 - Anemia, unspecified (5) CKD (chronic kidney disease) Assessment/Plan: -with uremia -possibly secondary to steroid use -will gently hydrate -decreasing steroids as above -recheck in am -if stable or improved can discharge home Code(s): N18.9 - CHRONIC KIDNEY DISEASE, UNSPECIFIED Qualifiers: Chronic kidney disease stage: stage 3 (moderate) Qualified Code(s): N18.3 - Chronic kidney disease, stage 3 (moderate) (6) CHF (congestive heart failure) Assessment/Plan: -not in exacerbation -continue torsemide but hydrating gently secondary to uremia Code(s): I50.9 - HEART FAILURE, UNSPECIFIED Qualifiers: Heart failure type: combined systolic and diastolic Heart failure chronicity: chronic Qualified Code(s): I50.42 - Chronic combined systolic ( congestive) and diastolic (congestive) heart failure (7) Hyperlipidemia Assessment/Plan: -continue statin Code(s): E78.5 - HYPERLIPIDEMIA, UNSPECIFIED Qualifiers: Hyperlipidemia type: pure hypercholesterolemia Qualified Code(s): E78.00 - Pure hypercholesterolemia, unspecified (8) Hypertension Assessment/Plan: -controlled Code(s): I10 - ESSENTIAL (PRIMARY) HYPERTENSION Qualifiers: Hypertension type: essential hypertension Qualified Code(s): I10 - Essential (primary) hypertension Problem List - Problems (1) COPD (chronic obstructive pulmonary disease) Code(s): J44.9 - CHRONIC OBSTRUCTIVE PULMONARY DISEASE, UNSPECIFIED Qualifiers: (2) Pneumonia Code(s): J18.9 - PNEUMONIA, UNSPECIFIED ORGANISM (3) Acute and chronic respiratory failure with hypoxia Code(s): J96.21 - ACUTE AND CHRONIC RESPIRATORY FAILURE WITH HYPOXIA (4) Anemia Code(s): D64.9 - ANEMIA, UNSPECIFIED Qualifiers: Anemia type: unspecified type Qualified Code(s): D64.9 - Anemia, unspecified (5) CKD (chronic kidney disease) Code(s): N18.9 - CHRONIC KIDNEY DISEASE, UNSPECIFIED Qualifiers: Chronic kidney disease stage: stage 3 (moderate) Qualified Code(s): N18.3 - Chronic kidney disease, stage 3 (moderate) (6) CHF (congestive heart failure) Code(s): I50.9 - HEART FAILURE, UNSPECIFIED Qualifiers: Heart failure type: combined systolic and diastolic Heart failure chronicity: chronic Qualified Code(s): I50.42 - Chronic combined systolic ( congestive) and diastolic (congestive) heart failure (7) Hyperlipidemia Code(s): E78.5 - HYPERLIPIDEMIA, UNSPECIFIED Qualifiers: Hyperlipidemia type: pure hypercholesterolemia Qualified Code(s): E78.00 - Pure hypercholesterolemia, unspecified (8) Hypertension Code(s): I10 - ESSENTIAL (PRIMARY) HYPERTENSION Qualifiers: Hypertension type: essential hypertension Qualified Code(s): I10 - Essential (primary) hypertension
--- NOTE | 2018-12-23 14:35 | PN ---
Physical Exam: SUBJECTIVE: Patient seen and examined; flat affect; rude; not wanting to talk or let me ask him question OBJECTIVE: Vital Signs Period Temp Pulse Resp BP Sys/Mata Pulse Ox Last 24 Hr 98.3 F-98.5 F 62-71 20-20 107-160/54-88 96-97 Lungs; BS improved; decreased wheeze and crackles Laboratory Results - last 24 hr 12/22/18 12/22/18 12/23/18 16:33 21:53 06:24 WBC RBC Hgb Hct MCV MCH MCHC RDW Plt Count MPV Absolute Neuts (auto) Neutrophils % Lymphocytes % Monocytes % Eosinophils % Basophils % Nucleated RBC % Sodium Potassium Chloride Carbon Dioxide Anion Gap BUN Creatinine Creat Clearance w eGFR POC Glucometer 135 146 137 Random Glucose Calcium Phosphorus Magnesium Ferritin 12/23/18 12/23/18 12/23/18 07:43 07:43 11:32 WBC 9.0 RBC 3.24 L Hgb 9.3 L Hct 27.6 L MCV 85.2 MCH 28.7 MCHC 33.7 RDW 15.6 Plt Count 173 MPV 8.9 Absolute Neuts (auto) 7.9 Neutrophils % 88.0 H Lymphocytes % 4.8 L Monocytes % 7.1 Eosinophils % 0.0 Basophils % 0.1 Nucleated RBC % 0 Sodium 140 Potassium 3.7 Chloride 104 Carbon Dioxide 25 Anion Gap 10 BUN 71 H Creatinine 2.4 H Creat Clearance w eGFR 25.92 POC Glucometer 239 Random Glucose 131 H Calcium 7.9 L Phosphorus 4.2 Magnesium 2.4 Ferritin 50.0 12/23/18 13:12 WBC RBC Hgb Hct MCV MCH MCHC RDW Plt Count MPV Absolute Neuts (auto) Neutrophils % Lymphocytes % Monocytes % Eosinophils % Basophils % Nucleated RBC % Sodium Potassium Chloride Carbon Dioxide Anion Gap BUN Creatinine Creat Clearance w eGFR POC Glucometer 111 Random Glucose Calcium Phosphorus Magnesium Ferritin Active Medications Generic Name Dose Route Start Last Admin Trade Name Freq PRN Reason Stop Dose Admin Albuterol Sulfate 1 amp 12/19/18 02:46 Ventolin 0.083% Nebulizer Soln - NEB Q4H PRN SHORT OF BREATH/WHEEZING Albuterol/Ipratropium 1 amp 12/19/18 08:00 12/23/18 12:10 Duoneb - NEB 1 amp RQID DINESH Administration Aspirin 81 mg 12/20/18 10:00 12/23/18 10:31 Ecotrin - PO 81 mg DAILY DINESH Administration Atorvastatin Calcium 20 mg 12/19/18 22:00 12/22/18 21:55 Lipitor - PO 20 mg HS DINESH Administration Carvedilol 12.5 mg 12/19/18 12:00 12/23/18 10:30 Coreg - PO 12.5 mg BID DINESH Administration Heparin Sodium (Porcine) 5,000 unit 12/19/18 06:00 12/23/18 06:26 Heparin - SQ 5,000 unit TID DINESH Administration Azithromycin 250 mg/ Dextrose 250 mls @ 250 mls/hr 12/19/18 10:00 12/23/18 10 :31 IVPB 250 mls/hr DAILY DINESH Administration Ceftriaxone Sodium 1 gm/ 50 mls @ 100 mls/hr 12/19/18 10:00 12/23/18 10:33 Dextrose IVPB 100 mls/hr DAILY DINESH Administration Sodium Chloride 1,000 mls @ 83 mls/hr 12/23/18 09:30 12/23/18 10:30 Normal Saline - IV 12/23/18 21:33 83 mls/hr ASDIR DINESH Administration Insulin Aspart 1 vial 12/19/18 07:00 12/23/18 12:06 Novolog Vial Sliding Scale - SQ 4 units ACHS DINESH Administration Protocol Methylprednisolone Sodium Succinate 40 mg 12/24/18 10:00 Solu-Medrol - IVPUSH DAILY DINESH Pantoprazole Sodium 40 mg 12/20/18 10:00 12/23/18 10:31 Protonix - PO 40 mg DAILY DINESH Administration Risperidone 1 mg 12/19/18 12:00 12/23/18 10:31 Risperdal - PO 1 mg DAILY DINESH Administration Torsemide 20 mg 12/21/18 10:30 12/23/18 10:31 Demadex - PO 20 mg DAILY DINESH Administration ASSESSMENT/PLAN: This is a 83 year old male with a history of COPD on oxygen and steroids at home , hx of pulmonary aspergillosis, high degree AVB s/p PPM, [place], systolic CHF, CAD , DM, HTN, HLD, dementia presented with sob, found to be in acute exacerbation of COPD with PNA. #Acute on chronic CHF -daily weights; stirct I/Os; -cont home torsemide #Rise inBUN; possiblr dsec to steroid; vol contraction; will give bolus of fluid repeat labs in am. 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 flat affect; does not respond to me or look at me ? very disheveled VTE ppl; heparin sq; Visit type - Emergency Visit Emergency Visit: Yes ED Registration Date: 12/19/18 Care time: The patient presented to the Emergency Department on the above date and was hospitalized for further evaluation of their emergent condition. - New Patient This patient is new to me today: No - Critical Care Critical Care patient: No
[2018-12-23] MEDS: ATORVASTATIN CA 20 MG TABLET (FP) PO SCH (21:37)
[2018-12-24 04:12] LABS: SERUM IRON SATURATION 14 % (15-55); TOTAL IRON BINDING CAPACITY 286 ug/dL (250-450); UIBC 246 ug/dL (111-343)
[2018-12-24 05:56] VITALS: TEMP 98.3
[2018-12-24] MEDS: INSULIN SLIDING SCALE (NOVOLOG) 1 VIAL SQ SCH ×3 (06:04→18:26)
[2018-12-24] MEDS: HEPARIN NA (PORCINE) 5,000 UNITS/ML 1ML VIAL SQ SCH ×2 (06:06→15:33)
[2018-12-24 08:23] LABS: BASO % 0.1 % (0-2.0); HEMATOCRIT 28.3 % (35.4-49); HEMOGLOBIN 9.6 GM/dL (11.7-16.9); LYMPH % 6.8 % (8-40); MCH 29.1 pg (25.7-33.7); MCHC 34.1 g/dl (32.0-35.9); MEAN CELL VOLUME 85.3 fl (80-96); MEAN PLT VOLUME 9.2 fl (7.5-11.1); MONO % 10.3 % (3.8-10.2); NEUT % 82.8 % (42.8-82.8); PLATELET COUNT 167 K/MM3 (134-434); RBC 3.31 M/mm3 (4.00-5.60); RDW 15.6 % (11.9-15.9); WHITE BLOOD COUNT 9.7 K/mm3 (4.0-10.0)
[2018-12-24 08:30] LABS: BLOOD UREA NITROGEN 66 mg/dL (7-18); CHLORIDE 108 mmol/L (98-107); CREATININE 2.2 mg/dL (0.55-1.3); GLUCOSE,RANDOM 90 mg/dL (74-106); POTASSIUM 3.5 mmol/L (3.5-5.1); SODIUM 142 mmol/L (136-145)
[2018-12-24 08:31] LABS: ALBUMIN 2.8 g/dl (3.4-5.0); ALK PHOS 48 U/L (45-117); ANION GAP 11 MMOL/L (8-16); BILIRUBIN,TOTAL 0.6 mg/dL (0.2-1); CALCIUM 7.3 mg/dL (8.5-10.1); CO2 23 mmol/L (21-32); MAGNESIUM 2.2 mg/dL (1.8-2.4); PHOSPHOROUS 2.8 mg/dL (2.5-4.9); SGOT/AST 12 U/L (15-37); SGPT/ALT 18 U/L (13-61); TOT PROT 5.5 g/dl (6.4-8.2)
[2018-12-24] MEDS ORDERED: cefTRIAXone SODIUM 1 GM VIAL ONE (09:45)
[2018-12-24] MEDS ORDERED: DEXTROSE 5%-WATER - 50 ML IVPB ONE (09:46)
[2018-12-24] MEDS ORDERED: methylPREDNISolone NA SUCC 40 MG/1 ML VIAL IVPUSH SCH (10:00)
[2018-12-24] MEDS: CARVEDILOL 12.5 MG TABLET (FP) PO SCH (11:46)
[2018-12-24] MEDS: TORSEMIDE 20 MG TABLET (FP) PO SCH (11:46)
[2018-12-24] MEDS: risperiDONE 1 MG TABLET (FP) PO SCH (11:46)
[2018-12-24] MEDS: PANTOPRAZOLE 40 MG TABLET (FP) PO SCH (11:46)
[2018-12-24] MEDS: CEFTRIAXONE 1 GM in DEXTROSE 5%-WATER - 50 ML IVPB SCH (11:47)
[2018-12-24] MEDS: ASPIRIN COATED 81 MG TABLET.EC PO SCH (11:47)
[2018-12-24] MEDS: AZITHROMYCIN IVPB 250 MG in DEXTROSE 5%-WATER - 250 ML IVPB SCH (13:04)
[2018-12-24 15:31] VITALS: BP 122/53; PULSE 68
--- NOTE | 2018-12-24 18:27 | PN ---
Physical Exam: SUBJECTIVE: Patient seen and examined OBJECTIVE: Vital Signs Period Temp Pulse Resp BP Sys/Mata Pulse Ox Last 24 Hr 98.3 F-98.4 F 68-72 20-21 120-146/53-71 98 LUNG ; cltab Laboratory Results - last 24 hr 12/23/18 12/23/18 12/24/18 07:43 21:36 06:03 WBC RBC Hgb Hct MCV MCH MCHC RDW Plt Count MPV Absolute Neuts (auto) Neutrophils % Lymphocytes % Monocytes % Eosinophils % Basophils % Nucleated RBC % Sodium Potassium Chloride Carbon Dioxide Anion Gap BUN Creatinine Creat Clearance w eGFR POC Glucometer 138 94 Random Glucose Calcium Phosphorus Magnesium Iron 40 TIBC 286 Iron Saturation 14 L Total Bilirubin AST ALT Alkaline Phosphatase Total Protein Albumin 12/24/18 12/24/18 12/24/18 06:25 06:25 11:57 WBC 9.7 RBC 3.31 L Hgb 9.6 L Hct 28.3 L MCV 85.3 MCH 29.1 MCHC 34.1 RDW 15.6 Plt Count 167 MPV 9.2 Absolute Neuts (auto) 8.0 Neutrophils % 82.8 Lymphocytes % 6.8 L D Monocytes % 10.3 H Eosinophils % 0.0 Basophils % 0.1 Nucleated RBC % 0 Sodium 142 Potassium 3.5 Chloride 108 H Carbon Dioxide 23 Anion Gap 11 BUN 66 H Creatinine 2.2 H Creat Clearance w eGFR 28.66 POC Glucometer 306 Random Glucose 90 Calcium 7.3 L Phosphorus 2.8 Magnesium 2.2 Iron TIBC Iron Saturation Total Bilirubin 0.6 AST 12 L ALT 18 Alkaline Phosphatase 48 Total Protein 5.5 L Albumin 2.8 L 12/24/18 16:15 WBC RBC Hgb Hct MCV MCH MCHC RDW Plt Count MPV Absolute Neuts (auto) Neutrophils % Lymphocytes % Monocytes % Eosinophils % Basophils % Nucleated RBC % Sodium Potassium Chloride Carbon Dioxide Anion Gap BUN Creatinine Creat Clearance w eGFR POC Glucometer 63 Random Glucose Calcium Phosphorus Magnesium Iron TIBC Iron Saturation Total Bilirubin AST ALT Alkaline Phosphatase Total Protein Albumin Active Medications Generic Name Dose Route Start Last Admin Trade Name Freq PRN Reason Stop Dose Admin Aspirin 81 mg 12/20/18 10:00 12/24/18 11:47 Ecotrin - PO 81 mg DAILY DINESH Administration Atorvastatin Calcium 20 mg 12/19/18 22:00 12/23/18 21:37 Lipitor - PO 20 mg HS DINESH Administration Carvedilol 12.5 mg 12/19/18 12:00 12/24/18 11:46 Coreg - PO 12.5 mg BID DINESH Administration Heparin Sodium (Porcine) 5,000 unit 12/19/18 06:00 12/24/18 15:33 Heparin - SQ 5,000 unit TID DINESH Administration Azithromycin 250 mg/ Dextrose 250 mls @ 250 mls/hr 12/19/18 10:00 12/24/18 13 :04 IVPB 250 mls/hr DAILY DINESH Administration Ceftriaxone Sodium 1 gm/ 50 mls @ 100 mls/hr 12/19/18 10:00 12/24/18 11:47 Dextrose IVPB 100 mls/hr DAILY DNIESH Administration Insulin Aspart 1 vial 12/19/18 07:00 12/24/18 12:00 Novolog Vial Sliding Scale - SQ 8 units ACHS DINESH Administration Protocol Methylprednisolone Sodium Succinate 40 mg 12/24/18 10:00 12/24/18 11:46 Solu-Medrol - IVPUSH 40 mg DAILY DINESH Administration Pantoprazole Sodium 40 mg 12/20/18 10:00 12/24/18 11:46 Protonix - PO 40 mg DAILY DINESH Administration Risperidone 1 mg 12/19/18 12:00 12/24/18 11:46 Risperdal - PO 1 mg DAILY DINESH Administration Torsemide 20 mg 12/21/18 10:30 12/24/18 11:46 Demadex - PO 20 mg DAILY DINESH Administration ASSESSMENT/PLAN: This is a 83 year old male with a history of COPD on oxygen and steroids at home , hx of pulmonary aspergillosis, high degree AVB s/p PPM, [place], systolic CHF, CAD , DM, HTN, HLD, dementia presented with sob, found to be in acute exacerbation of COPD with PNA. Prisca #Acute on chronic CHF -daily weights; stirct I/Os; -cont home torsemide #Rise in BUN; possibled sec to steroid; vol contraction; will give bolus of fluid repeat labs in am. 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 flat affect; does not respond to me or look at me ? very disheveled VTE ppl; heparin sq;
--- NOTE | 2018-12-24 18:31 | DS ---
Physical Exam: SUBJECTIVE: Patient seen and examined OBJECTIVE: Vital Signs Period Temp Pulse Resp BP Sys/Mata Pulse Ox Last 24 Hr 98.3 F-98.4 F 68-72 20-21 120-146/53-71 98 PHYSICAL EXAM GENERAL: The patient is awake, alert, and fully oriented, in no acute distress. HEAD: Normal with no signs of trauma. EYES: PERRL, extraocular movements intact, sclera anicteric, conjunctiva clear. ENT: Ears normal, nares patent, oropharynx clear without exudates, moist mucous membranes. NECK: Trachea midline, full range of motion, supple. LUNGS: Breath sounds equal, clear to auscultation bilaterally, no wheezes, no crackles, no accessory muscle use. HEART: Regular rate and rhythm, S1, S2 without murmur, rub or gallop. ABDOMEN: Soft, nontender, nondistended, normoactive bowel sounds, no guarding, no rebound, no hepatosplenomegaly, no masses. EXTREMITIES: 2+ pulses, warm, well-perfused, no edema. NEUROLOGICAL: Cranial nerves II through XII grossly intact. Normal speech, gait not observed. PSYCH: Normal mood, normal affect. SKIN: Warm, dry, normal turgor, no rashes or lesions noted. LABS Laboratory Results - last 24 hr 12/23/18 12/23/18 12/24/18 07:43 21:36 06:03 WBC RBC Hgb Hct MCV MCH MCHC RDW Plt Count MPV Absolute Neuts (auto) Neutrophils % Lymphocytes % Monocytes % Eosinophils % Basophils % Nucleated RBC % Sodium Potassium Chloride Carbon Dioxide Anion Gap BUN Creatinine Creat Clearance w eGFR POC Glucometer 138 94 Random Glucose Calcium Phosphorus Magnesium Iron 40 TIBC 286 Iron Saturation 14 L Total Bilirubin AST ALT Alkaline Phosphatase Total Protein Albumin 12/24/18 12/24/18 12/24/18 06:25 06:25 11:57 WBC 9.7 RBC 3.31 L Hgb 9.6 L Hct 28.3 L MCV 85.3 MCH 29.1 MCHC 34.1 RDW 15.6 Plt Count 167 MPV 9.2 Absolute Neuts (auto) 8.0 Neutrophils % 82.8 Lymphocytes % 6.8 L D Monocytes % 10.3 H Eosinophils % 0.0 Basophils % 0.1 Nucleated RBC % 0 Sodium 142 Potassium 3.5 Chloride 108 H Carbon Dioxide 23 Anion Gap 11 BUN 66 H Creatinine 2.2 H Creat Clearance w eGFR 28.66 POC Glucometer 306 Random Glucose 90 Calcium 7.3 L Phosphorus 2.8 Magnesium 2.2 Iron TIBC Iron Saturation Total Bilirubin 0.6 AST 12 L ALT 18 Alkaline Phosphatase 48 Total Protein 5.5 L Albumin 2.8 L 12/24/18 16:15 WBC RBC Hgb Hct MCV MCH MCHC RDW Plt Count MPV Absolute Neuts (auto) Neutrophils % Lymphocytes % Monocytes % Eosinophils % Basophils % Nucleated RBC % Sodium Potassium Chloride Carbon Dioxide Anion Gap BUN Creatinine Creat Clearance w eGFR POC Glucometer 63 Random Glucose Calcium Phosphorus Magnesium Iron TIBC Iron Saturation Total Bilirubin AST ALT Alkaline Phosphatase Total Protein Albumin HOSPITAL COURSE: Date of Admission:12/19/18 Date of Discharge: 12/24/18 This is a 83 year old male with a history of COPD on oxygen and steroids at home , hx of pulmonary aspergillosis, high degree AVB s/p PPM, IGIUGIG, systolic CHF, CAD , DM, HTN, HLD, dementia presented with sob, found to be in acute exacerbation of COPD with PNA. Treated with IV antibiotics for five day. Sent home on augmentin for two day to complete a seven day course. Sent home on steroid taper. Cont 10mg prednisone after taper. Slight rise in BUN/cr ; resolved with fluids. Minutes to complete discharge: 35 Discharge Summary Reason For Visit: CHRONIC OBSTRUCTIVE PULMONARY DISEASE/PNEUMONIA Current Active Problems COPD (chronic obstructive pulmonary disease) (Acute) Pneumonia (Acute) Condition: Stable - Instructions Diet, Activity, Other Instructions: Mr. Vee , your have been treated for pneumonia in the hospital. You will be taking an antibiotic at home, along with a steroid taper. Continue to take all prescribed medications as directed. New medications: Augmentin 500mg bid for 2 days Prednisone each tablet is 10mg; you will take : 5pills for the next two days, then 4pills for two days, then 3pills for two days, then 2pills for two days, then 1pill for two days Take your daily 10mg tablets after this steroid taper. Please follow up with your primary with in one week. If you experience any worsening of symptoms including chest pain, shortness of breath requiring more oxygen use, fever, chills, return to the emergency room. Disposition: HOME - Home Medications Comprehensive Discharge Medication List: Ambulatory Orders Albuterol Sulfate Inhaler - [Ventolin HFA Inhaler -] 1 - 2 inh PO Q4H PRN Amlodipine Besylate 10 mg PO DAILY 12/19/18 Aspirin Coated [Ecotrin -] 81 mg PO DAILY 12/19/18 Atorvastatin Ca [Lipitor] 20 mg PO HS 12/19/18 Carvedilol [Coreg -] 12.5 mg PO BID 12/19/18 Latanoprost/Pf [Latanoprost 0.005% Eye Drop] 7.5 ml OP DAILY 12/19/18 Losartan Potassium 100 mg PO DAILY 12/19/18 Pantoprazole Sodium 40 mg PO DAILY 12/19/18 Prednisone 10 mg PO DAILY 12/19/18 Risperidone [Risperdal] 1 mg PO DAILY 12/19/18 Tiotropium [place] [Spiriva] 1 inh PO DAILY 12/19/18 Torsemide [Demadex -] 20 mg PO DAILY 12/19/18 Amoxicillin/Potassium Clav [Augmentin 500-125 Tablet] 1 each PO BID 2 Days #4 tablet 12/24/18 predniSONE [Deltasone -] 10 mg PO ASDIR 10 Days #30 tablet 12/24/18 This patient is new to me today: Yes Date on this admission: 12/24/18 Emergency Visit: Yes ED Registration Date: 12/19/18 Care time: The patient presented to the Emergency Department on the above date and was hospitalized for further evaluation of their emergent condition. Critical Care patient: No - Discharge Referral Referred to [facility] Med P.C.: No
--- NOTE | 2018-12-24 18:53 | PN ---
Teaching Attending Note Name of Resident: Amber Ricci ATTENDING PHYSICIAN STATEMENT I saw and evaluated the patient. I reviewed the resident's note and discussed the case with the resident. I agree with the resident's findings and plan as documented. OBJECTIVE: Last Vital Signs Temp Pulse Resp BP Pulse Ox 36.8 C 68 21 H 122/53 L 98 12/24/18 15:29 12/24/18 15:29 12/24/18 05:54 12/24/18 15:29 12/23/18 21:00 Gen: nad Pulm: ctab w/o w/r/r CV: rrr w/o m/r/g Abd: +bs, s/nt/nd Ext: no c/c/e CBC, BMP 12/24/18 06:25 12/24/18 06:25 Mr Vee is an 83 year old male who came in with COPD exacerbation and pneumonia. He was admitted to the hospital and treated with rocephin and zithromax. His COPD was treated with steroids and bronchodilators. He is currently asymptomatic and doing well and was planned for discharge on 12/23, however it was noted that his BUN was increasing. His steroids are being decreased and he was gently hydrated. His BUN improved. He is stable for discharge home and should remain well hydrated. Problem List - Problems (1) COPD (chronic obstructive pulmonary disease) Code(s): J44.9 - CHRONIC OBSTRUCTIVE PULMONARY DISEASE, UNSPECIFIED Qualifiers: (2) Pneumonia Code(s): J18.9 - PNEUMONIA, UNSPECIFIED ORGANISM (3) Acute and chronic respiratory failure with hypoxia Code(s): J96.21 - ACUTE AND CHRONIC RESPIRATORY FAILURE WITH HYPOXIA (4) Anemia Code(s): D64.9 - ANEMIA, UNSPECIFIED Qualifiers: Anemia type: unspecified type Qualified Code(s): D64.9 - Anemia, unspecified (5) CKD (chronic kidney disease) Code(s): N18.9 - CHRONIC KIDNEY DISEASE, UNSPECIFIED Qualifiers: Chronic kidney disease stage: stage 3 (moderate) Qualified Code(s): N18.3 - Chronic kidney disease, stage 3 (moderate) (6) CHF (congestive heart failure) Code(s): I50.9 - HEART FAILURE, UNSPECIFIED Qualifiers: Heart failure type: combined systolic and diastolic Heart failure chronicity: chronic Qualified Code(s): I50.42 - Chronic combined systolic ( congestive) and diastolic (congestive) heart failure (7) Hyperlipidemia Code(s): E78.5 - HYPERLIPIDEMIA, UNSPECIFIED Qualifiers: Hyperlipidemia type: pure hypercholesterolemia Qualified Code(s): E78.00 - Pure hypercholesterolemia, unspecified (8) Hypertension Code(s): I10 - ESSENTIAL (PRIMARY) HYPERTENSION Qualifiers: Hypertension type: essential hypertension Qualified Code(s): I10 - Essential (primary) hypertension
== END 2018-12-24 19:49 | disposition home or self-care (01) | DRG 193 ==
LOC: JER 20:26 → JERBED 12-19 01:34 → J6S 12-19 04:16
PROVIDERS: ADMIT Internal Medicine; ATTEND Internal Medicine
DX: J18.9 Pneumonia, unspecified organism (principal); I50.23 Acute on chronic systolic (congestive) heart failure; J96.21 Acute and chronic respiratory failure with hypoxia; I13.0 Hypertensive heart and chronic kidney disease with heart failure and stage 1 through stage 4 chronic kidney disease, or unspecified chronic kidney disease; J44.1 Chronic obstructive pulmonary disease with (acute) exacerbation; B44.89 Other forms of aspergillosis; E11.22 Type 2 diabetes mellitus with diabetic chronic kidney disease; N18.3 Chronic kidney disease, stage 3 (moderate); D72.829 Elevated white blood cell count, unspecified; I25.10 Atherosclerotic heart disease of native coronary artery without angina pectoris; E78.5 Hyperlipidemia, unspecified; K21.9 Gastro-esophageal reflux disease without esophagitis; F03.90 Unspecified dementia, unspecified severity, without behavioral disturbance, psychotic disturbance, mood disturbance, and anxiety; D64.9 Anemia, unspecified; Z95.0 Presence of cardiac pacemaker; Z99.81 Dependence on supplemental oxygen
CPT/HCPCS: 36415; 71045-TC-FY; 71250-TC; 80048; 80053; 81003; 82728; 82803; 82962; 83036; 83540; 83550; 83735; 83880; 84100; 84484; 85025; 85610; 85730; 87040; 87899; 93005; 93010; 94640; 97116-GP; 97162-GP; 99282-25; J1644; J2794; J7030

== ENCOUNTER 2019-07-20 14:19 | Inpatient (IN) | payer OTHER, BC ==
[2019-07-20] MEDS ORDERED: NOREPINEPHRINE BITARTRATE 4 MG/4 ML ML IV ONE (14:46)
[2019-07-20] MEDS ORDERED: VANCOMYCIN 1 GM in D5W (PRE-DOCKED) 1,000 MG/250 ML IVPB ONE (14:50)
[2019-07-20] MEDS ORDERED: SODIUM CHLORIDE 2,177 ML IV ONE (14:50)
[2019-07-20] MEDS ORDERED: LACTATED RINGERS SOLUTION 1000 ML INFUS.BAG IV ONE (14:50)
[2019-07-20] MEDS ORDERED: ACETAMINOPHEN 1000 MG/100 ML VIAL (NON FORMULARY) IVPB ONE ×2 (14:50→22:27)
[2019-07-20] MEDS ORDERED: PIPERACILLIN/TAZOB 3.375 GM 3.375 GM in DEXTROSE 5%-WATER - 50 ML IVPB ONE (14:50)
[2019-07-20] MEDS ORDERED: VANCOMYCIN 1 GRAM (PRE-DOCKED) 1,000 MG/250 ML BAG IVPB ONE (14:51)
[2019-07-20] MEDS ORDERED: PIPERACILLIN/TAZOB 4.5 GM 4.5 GM/100 ML BAG IVPB ONE (14:51)
[2019-07-20] MEDS ORDERED: ACETAMINOPHEN INJECTION 100 ML IVPB ONE (15:00)
--- NOTE | 2019-07-20 15:04 | PDOC ---
History of Present Illness - General Chief Complaint: SIRS, Suspected/Possible Stated Complaint: FALIURE TO THRIVE Time Seen by Provider: 07/20/19 14:51 - History of Present Illness Initial Comments: 07/20/19 15:34 84 year old male with a history of HTN, HLD, DM, CAD, CHF, COPD who presents after being found down by family just 20 min prior to EMS arrival. Patient is hard of hearing an noncontributory to history ROS - cannot be obtained due to patient minimally verbal PE GENERAL: Awake HEAD: No signs of trauma, normocephalic, atraumatic EYES: PERRLA, EOMI, sclera anicteric, conjunctiva clear ENT: oropharynx clear without exudates. Moist mucosa NECK: Normal ROM, supple LUNGS: No distress, speaks full sentences, clear to auscultation bilaterally HEART: Regular rate and rhythm, normal S1 and S2, no murmurs, rubs or gallops, peripheral pulses normal and equal bilaterally. ABDOMEN: Soft, + RLQ and LLQ tenderness. No guarding, no rebound. No masses EXTREMITIES : Normal inspection, Normal range of motion, no edema. No clubbing or cyanosis. NEUROLOGICAL: alert, nonverbal SKIN: Warm, Dry MDM DDX including but not limited to: sepsis 2/2 pna vs urine r/o acs r/o cva ED Course: patient hypotensive, 2L pressure bagged patient still hypotensive levophed @5 started peripherally L IJ central line placed labs significant for elevated lactic acid pending CTAP, CT chest and Head CT Patient accepted to ICU Report given to medicine team Alexandria Trammell, PGY2 Emergency Medicine Past History - Past Medical History Allergies/Adverse Reactions: Allergies Allergy/AdvReac Type Severity Reaction Status Date / Time Iodinated Contrast Media Allergy Rash Verified 07/20/19 14:41 [Iodinated Contrast Media - IV Dye] levofloxacin [From Levaquin] Allergy "RASH" Verified 07/20/19 14:41 Home Medications: Ambulatory Orders Albuterol Sulfate Inhaler - [Ventolin HFA Inhaler -] 1 - 2 inh PO Q4H PRN Amlodipine Besylate 10 mg PO DAILY 12/19/18 Aspirin Coated [Ecotrin -] 81 mg PO DAILY 12/19/18 Atorvastatin Ca [Lipitor] 20 mg PO HS 12/19/18 Carvedilol [Coreg -] 12.5 mg PO BID 12/19/18 Latanoprost/Pf [Latanoprost 0.005% Eye Drop] 7.5 ml OP DAILY 12/19/18 Losartan Potassium 100 mg PO DAILY 12/19/18 Pantoprazole Sodium 40 mg PO DAILY 12/19/18 Prednisone 10 mg PO DAILY 12/19/18 Risperidone [Risperdal] 1 mg PO DAILY 12/19/18 Tiotropium [place] [Spiriva] 1 inh PO DAILY 12/19/18 Torsemide [Demadex -] 20 mg PO DAILY 12/19/18 Amoxicillin/Potassium Clav [Augmentin 500-125 Tablet] 1 each PO BID 2 Days #4 tablet 12/24/18 predniSONE [Deltasone -] 10 mg PO ASDIR 10 Days #30 tablet 12/24/18 Anemia: No Asthma: (EMPHYSEMA-NASAL 2L) Cancer: No Cardiac Disorders: Yes CVA: No COPD: Yes (O2 dependent 2-3L NC) CHF: Yes (systolic) DVT: No Dementia: No Diabetes: Yes GI Disorders: Yes (GERD) Disorders: No HTN: Yes Hypercholesterolemia: Yes Liver Disease: No Seizures: No Thyroid Disease: No - Surgical History Abdominal Surgery: No Appendectomy: No Cardiac Surgery: Yes (Pacemaker) Cholecystectomy: Yes Lung Surgery: No Neurologic Surgery: No Orthopedic Surgery: No - Immunization History Td Vaccination: No TDAP Vaccination: No Immunization Up to Date: No - Psycho Social/Smoking Cessation Hx Smoking History: Unknown if ever smoked Have you smoked in the past 12 months: No If you are a former smoker, when did you quit?: 20 YRS AGO Information on smoking cessation initiated: No 'Breaking Loose' booklet given: 03/06/17 Hx Alcohol Use: No Drug/Substance Use Hx: No Substance Use Type: None Hx Substance Use Treatment: No *Physical Exam - Vital Signs Last Vital Signs Temp Pulse Resp BP Pulse Ox 102.3 F H 72 29 H 61/41 L 92 L 07/20/19 14:41 07/20/19 14:41 07/20/19 14:41 07/20/19 14:41 07/20/19 14:41 Procedures - Central Line Central Line Lumen: triple Central Line Position: internal jugular (L) Anesthesia: 1% Lidocaine Amount of anesthesia (ccs): 4 Complications: none Post Central Line Insertion: sutured, good blood return, position confirmed w/ CXR ED Treatment Course - LABORATORY CBC & Chemistry Diagram: 07/20/19 15:00 07/20/19 15:00 Discharge - Discharge Information Problems reviewed: Yes Clinical Impression/Diagnosis: Septic shock - Admission Yes - Follow up/Referral - Patient Discharge Instructions - Post Discharge Activity Critical Care Total Critical Care Time (in minutes): 90 Critical Care Statement: The care of this patient involved high complexity decision making to prevent further life threatening deterioration of the patient 's condition and/or to evaluate & treat vital organ system(s) failure or risk of failure.
[2019-07-20 15:33] LABS: VENOUS PH 7.31 (7.31-7.41)
[2019-07-20 15:34] LABS: VENOUS PO2 < 49 mmHg (28-48)
[2019-07-20 15:35] LABS: BASO % 0.3 % (0-2.0); HEMATOCRIT 34.6 % (35.4-49); LYMPH % 5.5 % (8-40); MCH 26.8 pg (25.7-33.7); MCHC 31.7 g/dl (32.0-35.9); MEAN CELL VOLUME 84.5 fl (80-96); MEAN PLT VOLUME 10.1 fl (7.5-11.1); MONO % 6.3 % (3.8-10.2); NEUT % 87.9 % (42.8-82.8); PLATELET COUNT 223 K/MM3 (134-434); WHITE BLOOD COUNT 5.5 K/mm3 (4.0-10.0)
[2019-07-20 15:46] LABS: INR 1.44 (0.83-1.09)
[2019-07-20 15:49] LABS: ACTIVATED PTT 29.4 SECONDS (25.2-36.5)
[2019-07-20 16:31] LABS: ALBUMIN 2.5 g/dl (3.4-5.0); BILIRUBIN,TOTAL 1.5 mg/dL (0.2-1); BLOOD UREA NITROGEN 61.4 mg/dL (7-18); CALCIUM 8.6 mg/dL (8.5-10.1); CREATININE 3.9 mg/dL (0.55-1.3); POTASSIUM 5.2 mmol/L (3.5-5.1); TOT PROT 6.6 g/dl (6.4-8.2)
[2019-07-20 16:40] LABS: PH,URINE 5.5 (5.0-8.0); URINE APPEARANCE Clear; URINE BILIRUBIN Negative (NEGATIVE); URINE COLOR Yellow; URINE GLUCOSE (UA) Trace (NEGATIVE); URINE KETONE Negative (NEGATIVE); URINE LEUK ESTERASE Trace (NEGATIVE); URINE NITRITE Negative (NEGATIVE); URINE PROTEIN 2+ (NEGATIVE); URINE UROBILINOGEN 0.2 mg/dL (0.2-1.0)
--- NOTE | 2019-07-20 17:43 | PDOC ---
Documentation entered by Yani Frazier SCRIBE, acting as scribe for Gorge Wolfe MD. Gorge Wolfe MD: This documentation has been prepared by the Freddie sotomayor Xhesika, SCRIBE, under my direction and personally reviewed by me in its entirety. I confirm that the documentation accurately reflects all work, treatment, procedures, and medical decision making performed by me. Attending Attestation - Resident Resident Name: Alexandria Trammell - ED Attending Attestation I have performed the following: I have examined & evaluated the patient, The case was reviewed & discussed with the resident, I agree w/resident's findings & plan, Exceptions are as noted - HPI HPI: 07/20/19 16:02 The patient is an 84 year old male with a significant PMH of COPD, CHF, CAD, DM , HLD, HTN and dementia who presents to the emergency department for fever and lethargy from MI. Pt unable to contribute additional history. Allergies: levofloxacin and Iodinated contrast. Surgical history: Pacemaker Social history: Former smoker, no alcohol or drug use reported, PCP: Dr. Rocha - Physicial Exam PE: 07/20/19 16:02 GENERAL: Awake, alert, in no acute distress. HEAD: No signs of trauma EYES: PERRLA, EOMI, sclera anicteric, conjunctiva clear ENT: Auricles normal inspection, hearing grossly normal, nares patent, oropharynx clear without exudates. Moist mucosa NECK: Nontender, no stepoffs, Normal ROM, supple, no lymphadenopathy, JVD, or masses LUNGS: Breath sounds equal, clear to auscultation bilaterally. No wheezes, and no crackles HEART: Regular rate and rhythm, normal S1 and S2, no murmurs, rubs or gallops ABDOMEN: + bilateral LQ tenderness EXTREMITIES: Normal range of motion, no edema. No clubbing or cyanosis. No cords, erythema, or tenderness NEUROLOGICAL: Cranial nerves II through XII intact. 5/5 strength and sensation in all extremities, Normal speech, normal gait, normal cerebellar function SKIN: Warm, Dry, normal turgor, no rashes or lesions noted. - Critical Care Time Total Critical Care Time: 60 Critical Care Statement: The care of this patient involved high complexity decision making to prevent further life threatening deterioration of the patient 's condition and/or to evaluate & treat vital organ system(s) failure or risk of failure. - Medical Decision Making 07/20/19 17:41 84 M with sepsis, source unclear. Abdomen tender in lower quadrants. Will r/o intraabdominal infection. Has had prior cholecystectomy. - Labs, cultures - CXR, UA - CTAP - IVF, vanc/zosyn Pt persistently hypotensive s/p 2L NS. L IJ CVC placed. Levophed started. Pt accepted to ICU
[2019-07-20] MEDS: NOREPINEPHRINE BITARTRATE 8,000 MCG in DEXTROSE 5%-WATER - 492 ML IV SCH (18:07)
[2019-07-20 18:14] LABS: ANISOCYTOSIS 2+; MACROCYTOSIS 0; OVALOCYTE 1+; PLATELET ESTIMATE NORMAL; TEAR DROP CELLS 1+
--- NOTE | 2019-07-20 18:31 | CONSULT ---
Consult Consult Specialty:: ICU - History of Present Illness History of Present Illness: 84M with a PMH of COPD, CHF, CAD, DM, HLD, HTN and dementia who presented to the ER after being found down in a NH. Pt cannot provide any history. History obtained from ED records and NH records. - Past Medical History [employer]: Yes: Other (decreased hearing) Cardio/Vascular: Yes: CAD, CHF, HTN, Hyperlipdemia, Other (Right external carotid artery stenosis, tachycardia PPM) Pulmonary: Yes: COPD, O2 Dependent, Other (pulmonary nodules h/o invasive Aspergillosis) Gastrointestinal: Yes: Diverticulitis (as per today's CT), Diverticulosis, GERD , Other (left inguinal hernia, duodinitis, colon polyps) Renal/: Yes: Renal Inusuff, BPH, Hematuria, Other (bladder dysfunction) Infectious Disease: Yes: Other (h/o invasive pulmonary aspergillosis) Musculoskeletal: Yes: Chronic low back pain, Osteoarthritis, Other (dupuytren contracture) ENT: Yes: Other ([place]) Endocrine: Yes: Diabetes Mellitus - Past Surgical History Past Surgical History: Yes: Cholecystectomy (open), Permanent Pacemaker - Alcohol/Substance Use Hx Alcohol Use: No History of Substance Use: reports: None - Smoking History Smoking history: Unknown if ever smoked Have you smoked in the past 12 months: No If you are a former smoker, when did you quit?: 20 YRS AGO - Social History Usual Living Arrangement: With Child ADL: Family Assistance Occupation: , 4 children History of Recent Travel: No Home Medications - Allergies Allergies/Adverse Reactions: Allergies Allergy/AdvReac Type Severity Reaction Status Date / Time Iodinated Contrast Media Allergy Rash Verified 07/20/19 14:41 [Iodinated Contrast Media - IV Dye] levofloxacin [From Levaquin] Allergy "RASH" Verified 07/20/19 14:41 - Home Medications Home Medications: Ambulatory Orders Albuterol Sulfate Inhaler - [Ventolin HFA Inhaler -] 1 - 2 inh PO Q4H PRN Amlodipine Besylate 10 mg PO DAILY 12/19/18 Aspirin Coated [Ecotrin -] 81 mg PO DAILY 12/19/18 Atorvastatin Ca [Lipitor] 20 mg PO HS 12/19/18 Carvedilol [Coreg -] 12.5 mg PO BID 12/19/18 Latanoprost/Pf [Latanoprost 0.005% Eye Drop] 7.5 ml OP DAILY 12/19/18 Losartan Potassium 100 mg PO DAILY 12/19/18 Pantoprazole Sodium 40 mg PO DAILY 12/19/18 Prednisone 10 mg PO DAILY 12/19/18 Risperidone [Risperdal] 1 mg PO DAILY 12/19/18 Tiotropium [place] [Spiriva] 1 inh PO DAILY 12/19/18 Torsemide [Demadex -] 20 mg PO DAILY 12/19/18 Amoxicillin/Potassium Clav [Augmentin 500-125 Tablet] 1 each PO BID 2 Days #4 tablet 12/24/18 predniSONE [Deltasone -] 10 mg PO ASDIR 10 Days #30 tablet 12/24/18 Review of Systems Unable to obtain ROS, reason: [place], not answering questi Physical Exam Vital Signs: Vital Signs Temperature 102 F H 07/20/19 17:55 Pulse Rate 89 07/20/19 17:55 Respiratory Rate 23 H 07/20/19 17:55 Blood Pressure 93/50 L 07/20/19 17:55 O2 Sat by Pulse Oximetry (%) 100 07/20/19 17:55 Constitutional: Yes: Well Nourished, Poor Hygeine HENT: Yes: Atraumatic, Normocephalic Neck: Yes: Trachea Midline Cardiovascular: Yes: Regular Rate and Rhythm, S1, S2 Respiratory: Yes: Diminished, Rhonchi (in RLL). No: SOB Gastrointestinal: Yes: Soft, Tenderness (Diffusely) Extremities: Yes: WNL, Erythema, External Rotation Edema: No Neurological: Yes: Lethargy. No: Alert, Oriented ...Motor Strength: WNL Labs: CBC, BMP 07/20/19 15:00 07/20/19 15:00 Assessment/Plan 84M with MMP who presents to the ER after being found down. Noted to be hypotensive with lactic acid of 7.6. Recieved 2L NS and continued to remain hypotensive. TLC placed in ED with Levo at 5mcg running. Cards - Trop 0.06. Continue to trend - Currently on Levo 5, titrate as needed - Hold antihypertensives in setting of septic shock - Echo tomorrow - EKG unchanged c/w prior Pulm - CXR read as negative - CT chest reveals possible RLL infiltrate w/ pleural effusion - Pt not intubated, maintaining airway ID - WBC 5.5 - Vanc/zosyn given in ED - Temp controlled with IV tylenol GI - CTAP shows possible acute diverticulitis; will add flagyll as pt is getting G - coverage from zosyn - NPO - DM; sliding scale Renal/ - Acute renal failure in setting of shock, Cr 3.9 from 2.2 on 12/24/18; BUN elevated 61.4 - Monitor I's and O's - Continue IVF resuscitation ID - Febrile, given IV tylenol - LA currently 2.3 from 7.4 - CXR read by radiology as no acute pathology - UA negative - Pending CTAP as pt had diffusely tender abdomen Neuro - CTH negative - Not awake and alert but arousable - Dementia Dispo - Monitor in ICU
--- NOTE | 2019-07-20 18:46 | PN ---
Teaching Attending Note Name of Resident: Ross Thibodeaux ATTENDING PHYSICIAN STATEMENT I saw and evaluated the patient. I reviewed the resident's note and discussed the case with the resident. I agree with the resident's findings and plan as documented. SUBJECTIVE: Patient lethargic and unable to provide adequate history. Found laying on floor next to bed by . [place]-fall/syncope history unclear. Patient reportedly lethargic without noticed fever/chills/nausea/vomiting/diarrhea. Patient did not report CP/palpitations/lightheadedness. Unclear whether he sustained head injury. OBJECTIVE: Afebrile, hemodynamicaly Stable. Last Vital Signs Temp Pulse Resp BP Pulse Ox 102 F H 89 23 H 93/50 L 100 07/20/19 17:55 07/20/19 17:55 07/20/19 17:55 07/20/19 17:55 07/20/19 17:55 HEENT - Atraumatic, Normocephalic. Pale+ Heart -S1, S2, RRR, PPM in situ Lungs - clear to auscultation Abdomen - Soft, some scaring associated with prior open cholecystectomy incision with underlying RUQ tenderness along with LLQ tenderness. Bowel Sounds normal. Extremities - no edema, no calf tenderness. Neuro - AAO x 1 (Baseline AAO x 2). Movingl all 4 extremities. Laboratory Results - last 24 hr 07/20/19 07/20/19 07/20/19 15:00 15:00 15:00 WBC 5.5 RBC 4.10 Hgb 11.0 L Hct 34.6 L D MCV 84.5 MCH 26.8 MCHC 31.7 L RDW 18.0 H Plt Count 223 D MPV 10.1 Absolute Neuts (auto) 4.9 Neutrophils % 87.9 H Neutrophils % (Manual) 78.5 Band Neutrophils % 12.0 Lymphocytes % 5.5 L Lymphocytes % (Manual) 6.0 L Monocytes % 6.3 Monocytes % (Manual) 2 L Eosinophils % 0.0 Eosinophils % (Manual) 0.0 Basophils % 0.3 Basophils % (Manual) 0.5 D Myelocytes % (Man) 0 D Promyelocytes % (Man) 0 Blast Cells % (Manual) 0 Nucleated RBC % 0 Metamyelocytes 0 Hypochromia 0 Platelet Estimate Normal Polychromasia 1+ Poikilocytosis 2+ Anisocytosis 2+ Microcytosis 2+ Macrocytosis 0 Tear Drop Cells 1+ Ovalocytes 1+ Baljit Cells 2+ Schistocytes 1+ PT with INR 17.00 H INR 1.44 H PTT (Actin FS) 29.4 VBG pH POC VBG pCO2 POC VBG pO2 VBG HCO3 VBG O2 Sat (Ritesh) VBG Base Excess Sodium 135 L Potassium 5.2 H Chloride 101 Carbon Dioxide 18 L Anion Gap 16 BUN 61.4 H Creatinine 3.9 H Est GFR (CKD-EPI)AfAm 15.28 Est GFR (CKD-EPI)NonAf 13.18 Random Glucose 111 H Lactic Acid Calcium 8.6 Total Bilirubin 1.5 H AST 42 H ALT 17 Alkaline Phosphatase 88 Troponin I 0.06 H Total Protein 6.6 Albumin 2.5 L Urine Color Urine Appearance Urine pH Ur Specific [place] Urine Protein Urine Glucose (UA) Urine Ketones Urine Blood Urine Nitrite Urine Bilirubin Urine Urobilinogen Ur Leukocyte Esterase Urine RBC (Auto) Stool Occult Blood Blood Type Antibody Screen 07/20/19 07/20/19 07/20/19 15:00 15:00 15:24 WBC RBC Hgb Hct MCV MCH MCHC RDW Plt Count MPV Absolute Neuts (auto) Neutrophils % Neutrophils % (Manual) Band Neutrophils % Lymphocytes % Lymphocytes % (Manual) Monocytes % Monocytes % (Manual) Eosinophils % Eosinophils % (Manual) Basophils % Basophils % (Manual) Myelocytes % (Man) Promyelocytes % (Man) Blast Cells % (Manual) Nucleated RBC % Metamyelocytes Hypochromia Platelet Estimate Polychromasia Poikilocytosis Anisocytosis Microcytosis Macrocytosis Tear Drop Cells Ovalocytes [place] Cells Schistocytes PT with INR INR PTT (Actin FS) VBG pH 7.31 POC VBG pCO2 33.0 L POC VBG pO2 < 49 H VBG HCO3 16.3 L VBG O2 Sat (Ritesh) 64.5 L VBG Base Excess -8.6 L Sodium Potassium Chloride Carbon Dioxide Anion Gap BUN Creatinine Est GFR (CKD-EPI)AfAm Est GFR (CKD-EPI)NonAf Random Glucose Lactic Acid 7.4 H* Calcium Total Bilirubin AST ALT Alkaline Phosphatase Troponin I Total Protein Albumin Urine Color Urine Appearance Urine pH Ur Specific [place] Urine Protein Urine Glucose (UA) Urine Ketones Urine Blood Urine Nitrite Urine Bilirubin Urine Urobilinogen Ur Leukocyte Esterase Urine RBC (Auto) Stool Occult Blood Negative Blood Type Antibody Screen 07/20/19 07/20/19 07/20/19 15:25 16:11 17:20 WBC RBC Hgb Hct MCV MCH MCHC RDW Plt Count MPV Absolute Neuts (auto) Neutrophils % Neutrophils % (Manual) Band Neutrophils % Lymphocytes % Lymphocytes % (Manual) Monocytes % Monocytes % (Manual) Eosinophils % Eosinophils % (Manual) Basophils % Basophils % (Manual) Myelocytes % (Man) Promyelocytes % (Man) Blast Cells % (Manual) Nucleated RBC % Metamyelocytes Hypochromia Platelet Estimate Polychromasia Poikilocytosis Anisocytosis Microcytosis Macrocytosis Tear Drop Cells Ovalocytes [place] Cells Schistocytes PT with INR INR PTT (Actin FS) VBG pH POC VBG pCO2 POC VBG pO2 VBG HCO3 VBG O2 Sat (Ritesh) VBG Base Excess Sodium Potassium Chloride Carbon Dioxide Anion Gap BUN Creatinine Est GFR (CKD-EPI)AfAm Est GFR (CKD-EPI)NonAf Random Glucose Lactic Acid 2.3 H* Calcium Total Bilirubin AST ALT Alkaline Phosphatase Troponin I Total Protein Albumin Urine Color Yellow Urine Appearance Clear Urine pH 5.5 Ur Specific [place] 1.020 Urine Protein 2+ H Urine Glucose (UA) Trace Urine Ketones Negative Urine Blood Trace-intact Urine Nitrite Negative Urine Bilirubin Negative Urine Urobilinogen 0.2 Ur Leukocyte Esterase Trace Urine RBC (Auto) Stool Occult Blood Blood Type A POSITIVE Antibody Screen Negative Home Medications Medication Instructions Recorded Albuterol Sulfate Inhaler - 1 - 2 inh PO Q4H PRN 12/19/18 [Ventolin HFA Inhaler -] Amlodipine Besylate 10 mg PO DAILY 12/19/18 Aspirin Coated [Ecotrin -] 81 mg PO DAILY 12/19/18 Atorvastatin Ca [Lipitor] 20 mg PO HS 12/19/18 Carvedilol [Coreg -] 12.5 mg PO BID 12/19/18 Latanoprost/Pf [Latanoprost 0.005% 7.5 ml OP DAILY 12/19/18 Eye Drop] Losartan Potassium 100 mg PO DAILY 12/19/18 Pantoprazole Sodium 40 mg PO DAILY 12/19/18 Prednisone 10 mg PO DAILY 12/19/18 Risperidone [Risperdal] 1 mg PO DAILY 12/19/18 Tiotropium [place] [Spiriva] 1 inh PO DAILY 12/19/18 Torsemide [Demadex -] 20 mg PO DAILY 12/19/18 Amoxicillin/Potassium Clav 1 each PO BID 2 Days #4 tablet 12/24/18 [Augmentin 500-125 Tablet] predniSONE [Deltasone -] 10 mg PO ASDIR 10 Days #30 tablet 12/24/18 ASSESSMENT AND PLAN: 84 year old male with history of COPD (on Home O2), Chronic Systolic CHF, Arrhythmia s/p PPM, CAD, DM 2, HTN, CKD 3/4, HLD, Dementia (normally AAO x 2) 1. Septic Shock, etiology unclear, presumed intra-abdominal source ? Diverticulitis. Febrile, T 102.3, hypotensive Did not respond to initial fluid resuscitation, requiring central line and initiation on Levophed. Lactic Acidosis resolving. CT A/P ordered. IV Zosyn/Vancomycin empirically ICU admission for pressors and monitoring hemodynamic status. 2. Syncope, likely secondary to hypotension CT Head requested. No CP/palpitations TropI mildly elevated at 0.06. Will repeat and send CPK. ECG - Ventricular paced rhythm with no St/T wave abnormalities. CXR - Cardiomegaly, no pulmonary findings. 3. LAURA on CKD 3/4 secondary to sepsis/shock Pressors, IV hydration CT Abdo/Pelvis should exclude urinary obstruction/obstructive uropathy 4. CRF sec to COPD (on home O2, chronically on steroids) - stable, no evidence of acute exacerbation. May require stress dose steroids. Will defer to ICU team. Regular DuoNebs. 5. DM 2 - will maintain on sliding scale. 6. HLD - hold Statin. Will check CPK. 7. HTN - now hypotensive/in shock. Hold all anti-hypertensive medications 8. Chronic Systolic CHF - Normally on BB, MONE-I, Torsemide. Hold Torsemide in favor of IV hydration for now. Monitor renal response. Last Echo 05/2018 - moderately reduced EF with global hypokinesis. 9. Hyperkalemia, mild - will monitor in response to IV hydration. 10. CAD - no reported CP or EKG changes. Initial TropI mildly elevated. Will telemonitor in ICU and trend troponins. DVT Px - Heparin SQ. FOBT neg.
[2019-07-20] MEDS ORDERED: ACETAMINOPHEN 325 MG TABLET (FP) PO PRN (19:02)
[2019-07-20] MEDS ORDERED: predniSONE 10 MG TABLET (UD) PO SCH ×3 (19:15→19:30)
--- NOTE | 2019-07-20 19:25 | HP ---
CHIEF COMPLAINT: found down, no LOC PCP: [facility] HISTORY OF PRESENT ILLNESS: History supplied primarily by family(daughters, grandson) at bedside who lives with patient but not home at time of incident. 84M w/ pmh of HTN, HLD, GERD, hearing deficits(worse in Right ear), ?dementia, COPD(home O2, chronic prednisone), PPM(implanted 2014), CAD(1997), HFrEF(global hypokinesis, May 2018) BIBA after being found down w/o LOC at home. Eariler in the day pt had episode of bowel incontinence, was cleaned by [employer] PRODUCTION ENGINEER and placed in bed. Pt's found pt down on ground, clutching abd, and unable to get up. Reportedly, has had two days of bloody bowel movements(as per [employer]ODUCTION ENGINEER), poor appetite. Has had years-decades of intermittent Right-sided abdominal pain. Has had an open cholecystectomy w/ incisional hernia and subsequent hernia repair. Family does not recall recent complaints of SOB, chest pain, fever, chills, urinary complaint, diarrhea. No sick contacts. Walks w/o assistive device at baseline. Does not use house appliances, cook for himself. Had colonoscopy 2ys prior, complicated by ?hemorrhage requiring mid-procedure, transfusion and inpt admission. Patient refused subsequent c-scope follow-up. Refuses to groom nails. ER course was notable for: (1) T 102.3F, HR 100, BP 61/41, RR 29, nonrebreather (2) CXR cardiomegaly (3) Cr 3.9 (4) Lactic Acid 7.4 (5) LR x1L, NS x2L (6) vanc + zosyn (7) FOBT neg (8) L IJ w/ levophed @10mcg (9) EKG: ventricular paced, QTc 494 Recent Travel: none PAST MEDICAL HISTORY: HTN, HLD, GERD, hearing deficits(worse in Right ear), ?dementia, COPD(home O2, chronic prednisone), PPM(implanted 2014), CAD(1997), HFrEF(global hypokinesis, May 2018) PAST SURGICAL HISTORY: -PPM -open leigh, incisional hernia repair Social History: Smokinpack year, last smoke ~10ys prior Alcohol: former chronic EtOH Drugs: denies Allergies Iodinated Contrast Media [Iodinated Contrast Media - IV Dye] Allergy (Verified 07/20/19 14:41) Rash UNCODED ALLERGY "CT SCAN DYE" levofloxacin [From Levaquin] Allergy (Verified 07/20/19 14:41) "RASH" HOME MEDICATIONS: Home Medications Medication Instructions Recorded Albuterol Sulfate Inhaler - 1 - 2 inh PO Q4H PRN 12/19/18 [Ventolin HFA Inhaler -] Amlodipine Besylate 10 mg PO DAILY 12/19/18 Aspirin Coated [Ecotrin -] 81 mg PO DAILY 12/19/18 Atorvastatin Ca [Lipitor] 20 mg PO HS 12/19/18 Carvedilol [Coreg -] 12.5 mg PO BID 12/19/18 Latanoprost/Pf [Latanoprost 0.005% 7.5 ml OP DAILY 12/19/18 Eye Drop] Losartan Potassium 100 mg PO DAILY 12/19/18 Pantoprazole Sodium 40 mg PO DAILY 12/19/18 Prednisone 10 mg PO DAILY 12/19/18 Risperidone [Risperdal] 1 mg PO DAILY 12/19/18 Tiotropium [place] [Spiriva] 1 inh PO DAILY 12/19/18 Torsemide [Demadex -] 20 mg PO DAILY 12/19/18 Amoxicillin/Potassium Clav 1 each PO BID 2 Days #4 tablet 12/24/18 [Augmentin 500-125 Tablet] predniSONE [Deltasone -] 10 mg PO ASDIR 10 Days #30 tablet 12/24/18 REVIEW OF SYSTEMS CONSTITUTIONAL: loss of appetite Absent: fever, chills, diaphoresis, generalized weakness, malaise, weight change HEENT: Absent: rhinorrhea, nasal congestion, throat pain, throat swelling, difficulty swallowing, mouth swelling CARDIOVASCULAR: Absent: chest pain, syncope, palpitations, irregular heart rate, lightheadedness , peripheral edema RESPIRATORY: Absent: cough, shortness of breath, dyspnea with exertion, orthopnea, wheezing, stridor, hemoptysis GASTROINTESTINAL: chronic abdominal pain, bloody BM Absent: abdominal distension, nausea, vomiting, diarrhea, constipation, melena GENITOURINARY: Absent: dysuria, frequency, urgency, hesitancy, hematuria, flank pain, genital pain MUSCULOSKELETAL: Absent: myalgia, arthralgia, joint swelling, back pain, neck pain SKIN: Absent: rash, itching, pallor NEUROLOGIC: bowel incontinence Absent: headache, focal weakness or paresthesias, dizziness, unsteady gait, seizure, mental status changes, PHYSICAL EXAMINATION Vital Signs - 24 hr 07/20/19 07/20/19 07/20/19 14:41 14:45 15:00 Temperature 102.3 F H 102.3 F H Pulse Rate 72 Pulse Rate [ 100 H 94 H Apical] Respiratory 29 H 19 18 Rate Blood Pressure 61/41 L Blood Pressure 106/94 82/50 L [Right Arm] O2 Sat by Pulse 92 L 93 L 93 L Oximetry (%) 07/20/19 07/20/19 07/20/19 15:15 15:25 15:33 Temperature 102.3 F H 102.3 F H 102.3 F H Pulse Rate 100 H Pulse Rate [ 95 H 92 H Apical] Respiratory 19 17 17 Rate Blood Pressure Blood Pressure 102/61 105/48 L [Right Arm] O2 Sat by Pulse 95 100 94 L Oximetry (%) 07/20/19 07/20/19 07/20/19 16:00 16:15 16:33 Temperature 102.3 F H Pulse Rate Pulse Rate [ 89 85 83 Apical] Respiratory 20 16 15 Rate Blood Pressure Blood Pressure 74/58 L 83/52 L 92/54 L [Right Arm] O2 Sat by Pulse 99 100 100 Oximetry (%) 07/20/19 07/20/19 07/20/19 16:54 17:10 17:27 Temperature 102.3 F H Pulse Rate Pulse Rate [ 86 97 H 96 H Apical] Respiratory 17 19 17 Rate Blood Pressure Blood Pressure 94/54 L 107/57 L 83/53 L [Right Arm] O2 Sat by Pulse 100 100 100 Oximetry (%) 07/20/19 17:55 Temperature 102 F H Pulse Rate Pulse Rate [ 89 Apical] Respiratory 23 H Rate Blood Pressure Blood Pressure 93/50 L [Right Arm] O2 Sat by Pulse 100 Oximetry (%) GENERAL: somnolent, oriented to self, year, president. HEAD: NC/AT, no hematomas noted, no facial lac noted EYES: sclera anicteric, mildly pale conjunctiva EARS, NOSE, THROAT: Ears normal, nares patent. Moist mucous membranes. Poor dentition NECK: no cervical LAD. Left IJ in place LUNGS: CTA bilaterally. No wheezes, and no crackles. No accessory muscle use. nonrebreather HEART: Regular rate and rhythm, normal S1 and S2 without murmur, rub or gallop. Left chest wall w/ palpable PPM, no overlying erythema. ABDOMEN: Right subcostal incisional scar. Right-sided subcostal bulge +20cm in size. ND. Tenderness with deep palpation to RUQ, and LLQ. MUSCULOSKELETAL: No bony deformities or tenderness. No skin tears, ecchymosis at extremities. Long, yellowed fingernails/toenails UPPER EXTREMITIES: 2+ pulses, warm, well-perfused. No cyanosis. No clubbing. No peripheral edema. Cool extremities LOWER EXTREMITIES: 2+ pulses, warm, well-perfused. No calf tenderness. No peripheral edema. Cool extremities NEUROLOGICAL: follows commands. Ambulatory Services Representative strength 5/5. Moves fingers and toes on command SKIN: dry, cool extremities Laboratory Results - last 24 hr 07/20/19 07/20/19 07/20/19 15:00 15:00 15:00 WBC 5.5 RBC 4.10 Hgb 11.0 L Hct 34.6 L D MCV 84.5 MCH 26.8 MCHC 31.7 L RDW 18.0 H Plt Count 223 D MPV 10.1 Absolute Neuts (auto) 4.9 Neutrophils % 87.9 H Neutrophils % (Manual) 78.5 Band Neutrophils % 12.0 Lymphocytes % 5.5 L Lymphocytes % (Manual) 6.0 L Monocytes % 6.3 Monocytes % (Manual) 2 L Eosinophils % 0.0 Eosinophils % (Manual) 0.0 Basophils % 0.3 Basophils % (Manual) 0.5 D Myelocytes % (Man) 0 D Promyelocytes % (Man) 0 Blast Cells % (Manual) 0 Nucleated RBC % 0 Metamyelocytes 0 Hypochromia 0 Platelet Estimate Normal Polychromasia 1+ Poikilocytosis 2+ Anisocytosis 2+ Microcytosis 2+ Macrocytosis 0 Tear Drop Cells 1+ Ovalocytes 1+ Baljit Cells 2+ Schistocytes 1+ PT with INR 17.00 H INR 1.44 H PTT (Actin FS) 29.4 VBG pH POC VBG pCO2 POC VBG pO2 VBG HCO3 VBG O2 Sat (Ritesh) VBG Base Excess Sodium 135 L Potassium 5.2 H Chloride 101 Carbon Dioxide 18 L Anion Gap 16 BUN 61.4 H Creatinine 3.9 H Est GFR (CKD-EPI)AfAm 15.28 Est GFR (CKD-EPI)NonAf 13.18 Random Glucose 111 H Lactic Acid Calcium 8.6 Total Bilirubin 1.5 H AST 42 H ALT 17 Alkaline Phosphatase 88 Troponin I 0.06 H Total Protein 6.6 Albumin 2.5 L Urine Color Urine Appearance Urine pH Ur Specific [place] Urine Protein Urine Glucose (UA) Urine Ketones Urine Blood Urine Nitrite Urine Bilirubin Urine Urobilinogen Ur Leukocyte Esterase Urine RBC (Auto) Stool Occult Blood Blood Type Antibody Screen 07/20/19 07/20/19 07/20/19 15:00 15:00 15:24 WBC RBC Hgb Hct MCV MCH MCHC RDW Plt Count MPV Absolute Neuts (auto) Neutrophils % Neutrophils % (Manual) Band Neutrophils % Lymphocytes % Lymphocytes % (Manual) Monocytes % Monocytes % (Manual) Eosinophils % Eosinophils % (Manual) Basophils % Basophils % (Manual) Myelocytes % (Man) Promyelocytes % (Man) Blast Cells % (Manual) Nucleated RBC % Metamyelocytes Hypochromia Platelet Estimate Polychromasia Poikilocytosis Anisocytosis Microcytosis Macrocytosis Tear Drop Cells Ovalocytes [place] Cells Schistocytes PT with INR INR PTT (Actin FS) VBG pH 7.31 POC VBG pCO2 33.0 L POC VBG pO2 < 49 H VBG HCO3 16.3 L VBG O2 Sat (Ritesh) 64.5 L VBG Base Excess -8.6 L Sodium Potassium Chloride Carbon Dioxide Anion Gap BUN Creatinine Est GFR (CKD-EPI)AfAm Est GFR (CKD-EPI)NonAf Random Glucose Lactic Acid 7.4 H* Calcium Total Bilirubin AST ALT Alkaline Phosphatase Troponin I Total Protein Albumin Urine Color Urine Appearance Urine pH Ur Specific [place] Urine Protein Urine Glucose (UA) Urine Ketones Urine Blood Urine Nitrite Urine Bilirubin Urine Urobilinogen Ur Leukocyte Esterase Urine RBC (Auto) Stool Occult Blood Negative Blood Type Antibody Screen 07/20/19 07/20/19 07/20/19 15:25 16:11 17:20 WBC RBC Hgb Hct MCV MCH MCHC RDW Plt Count MPV Absolute Neuts (auto) Neutrophils % Neutrophils % (Manual) Band Neutrophils % Lymphocytes % Lymphocytes % (Manual) Monocytes % Monocytes % (Manual) Eosinophils % Eosinophils % (Manual) Basophils % Basophils % (Manual) Myelocytes % (Man) Promyelocytes % (Man) Blast Cells % (Manual) Nucleated RBC % Metamyelocytes Hypochromia Platelet Estimate Polychromasia Poikilocytosis Anisocytosis Microcytosis Macrocytosis Tear Drop Cells Ovalocytes Baljit Cells Schistocytes PT with INR INR PTT (Actin FS) VBG pH POC VBG pCO2 POC VBG pO2 VBG HCO3 VBG O2 Sat (Ritesh) VBG Base Excess Sodium Potassium Chloride Carbon Dioxide Anion Gap BUN Creatinine Est GFR (CKD-EPI)AfAm Est GFR (CKD-EPI)NonAf Random Glucose Lactic Acid 2.3 H* Calcium Total Bilirubin AST ALT Alkaline Phosphatase Troponin I Total Protein Albumin Urine Color Yellow Urine Appearance Clear Urine pH 5.5 Ur Specific [place] 1.020 Urine Protein 2+ H Urine Glucose (UA) Trace Urine Ketones Negative Urine Blood Trace-intact Urine Nitrite Negative Urine Bilirubin Negative Urine Urobilinogen 0.2 Ur Leukocyte Esterase Trace Urine RBC (Auto) Stool Occult Blood Blood Type A POSITIVE Antibody Screen Negative ASSESSMENT/PLAN: 84M w/ pmh of HTN, HLD, GERD, hearing deficits(worse in Right ear), ?dementia, COPD(home O2, chronic prednisone), PPM(2014), CAD(1997), HFrEF(global hypokinesis, May 2018) # Septic Shock --2/2 to unknown infective source(abd vs other) > initial T 102.3 > initial BP 61/41 > lactic acid 7.4 - s/p LR x1L, NS x2L - s/p Left IJ TC - pressors: levophd gtt - IVF - fu CT A/P - empiric Zosyn+Vancomycin # acute on chronic abdominal pain --possibly hernial pain vs diverticulitis vs other > FOBT neg - fu CT A/P # unwitnessed fall --possible mechanical vs syncope # r/o rhabdomylsis - fu CT H - fu CPK # h/o CAD(1997) # troponinemia --possibly 2/2 to LAURA/CKD > Trop 0.06 > ECG - Ventricular paced rhythm with no St/T wave abnormalities. > CXR - Cardiomegaly, no pulmonary vascular congestion # LAURA vs CKD --possibly 2/2 sepsis/shock > Cr ~ 3.9, baseline Cr ~2.0 - fu CT Pelvis to r/o urinary obstruction/obstructive uropathy # Respiratory needs 2/2 COPD (on home O2, chronically on steroids) - ida - home prednisone 10mg - fu CT chest # NIDDM(reported to be not a diabetic) - BGM + ISS q6h # chronic HLD - hold Statin until r/o rhabdo # chronic HTN - holding anti-hypertensive medications until resolution of shock # Chronic HFrEF > Echo(May 2018): global hypokinesis - hold home BB, MONE-I, Torsemide until resolution of acute issues # Hyperkalemia > K ~5.2 - fu lytes after IVF FEN - D5NS @100 - replete lytes PRN DVT Px - Heparin SQ. Family Medical History Family Hx Cancer: Father (pancreatic CA) Family Hx Cardiac Disorders: Mother (heart attack) Visit type - Emergency Visit Emergency Visit: Yes ED Registration Date: 07/20/19 Care time: The patient presented to the Emergency Department on the above date and was hospitalized for further evaluation of their emergent condition. - New Patient This patient is new to me today: Yes Date on this admission: 07/20/19 - Critical Care Critical Care patient: Yes Total Critical Care Time (in minutes): 30 Critical Care Statement: The care of this patient involved high complexity decision making to prevent further life threatening deterioration of the patient 's condition and/or to evaluate & treat vital organ system(s) failure or risk of failure. ATTENDING PHYSICIAN STATEMENT I saw and evaluated the patient. I reviewed the resident's note and discussed the case with the resident. I agree with the resident's findings and plan as documented. SUBJECTIVE: OBJECTIVE: ASSESSMENT AND PLAN:
[2019-07-20] MEDS: DEXTROSE 5%-0.45% SALINE 1,000 ML IV SCH (20:00)
[2019-07-20] MEDS: ALBUTEROL SO4 2.5/IPRATROPIUM 0.5 INH SOL 3 ML VIAL.NEB. NEB SCH (20:41)
[2019-07-20] MEDS: HEPARIN NA (PORCINE) 5,000 UNITS/ML 1ML VIAL SQ SCH (21:05)
[2019-07-20] MEDS: INSULIN SLIDING SCALE (NOVOLOG) 1 VIAL SQ SCH (21:05)
[2019-07-20] MEDS: CHLORHEXIDINE GLUCONATE 4% CLEANSER FOR DECOLONIZATION TP SCH (21:06)
[2019-07-20] MEDS: PANTOPRAZOLE SODIUM 40 MG VIAL IVPUSH SCH (21:06)
[2019-07-20 21:28] LABS: BILIRUBIN,TOTAL 1.1 mg/dL (0.2-1); BLOOD UREA NITROGEN 58.4 mg/dL (7-18); CREATININE 3.7 mg/dL (0.55-1.3); POTASSIUM 3.3 mmol/L (3.5-5.1); TOT PROT 5.1 g/dl (6.4-8.2)
[2019-07-20] MEDS: TIOTROPIUM BROMIDE 2.5 MCG (SPIRIVA) RESPIMAT INHALER IH SCH (21:52)
[2019-07-20] MEDS: MUPIROCIN 2% TOPICAL OINTMENT FOR DECOLONIZATION NS SCH (21:52)
[2019-07-20] MEDS ORDERED: methylPREDNISolone NA SUCC 40 MG/1 ML VIAL IVPUSH ONE (22:32)
[2019-07-20] MEDS: KCL 10 MEQ IVPB 10 MEQ/100 ML INFUS.BAG IVPB SCH (22:52)
[2019-07-20 23:58] LABS: MAGNESIUM 1.8 mg/dL (1.8-2.4)
[2019-07-21] MEDS: KCL 10 MEQ IVPB 10 MEQ/100 ML INFUS.BAG IVPB SCH (00:52)
[2019-07-21] MEDS: INSULIN SLIDING SCALE (NOVOLOG) 1 VIAL SQ SCH ×5 (00:59→23:08)
[2019-07-21] MEDS ORDERED: DEXTROSE 5%-WATER - 50 ML IVPB ONE ×3 (02:04→18:08)
[2019-07-21] MEDS ORDERED: PIPERACILLIN/TAZOBACTAM 3.375 GM VIAL IVPB ONE ×2 (02:04→09:12)
[2019-07-21] MEDS: PIPERACILLIN/TAZOB 3.375 GM 3.375 GM in DEXTROSE 5%-WATER - 50 ML IVPB SCH ×3 (02:08→18:19)
[2019-07-21] MEDS: NOREPINEPHRINE BITARTRATE 8,000 MCG in DEXTROSE 5%-WATER - 492 ML IV SCH ×2 (02:40→18:15)
[2019-07-21 03:29] LABS: BLOOD UREA NITROGEN 63.4 mg/dL (7-18); CREATININE 3.7 mg/dL (0.55-1.3); POTASSIUM 3.9 mmol/L (3.5-5.1)
--- NOTE | 2019-07-21 05:54 | PN ---
Progress Note (short form) - Note Progress Note: RN called for worsening work of breathing. Evaluated at bedside and I noticed worsening rales diffusely, wet cough, and tachypnea. Stat portable chest ordered which shows possibly worsening congestive changes. (over penetrated film c/w prior but same congestive pattern, indicating worsening congestion). Bipap called stat, 12/5 S/T w/ rate of 14, O2 50%. Due to worsening congestion and reduced EF (pt has not received fluids besides heparin in unit), will give lasix 40mg IV and gil. Gil output ~900 cc. Pt more comfortable appearing on bipap. Gil showing mild hematuria, likely 2/2 trauma. Will monitor closely.
[2019-07-21 06:53] LABS: BASO % 0.1 % (0-2.0); HEMATOCRIT 28.6 % (35.4-49); HEMOGLOBIN 9.4 GM/dL (11.7-16.9); LYMPH % 1.8 % (8-40); MCH 27.3 pg (25.7-33.7); MCHC 32.9 g/dl (32.0-35.9); MEAN CELL VOLUME 83.1 fl (80-96); MEAN PLT VOLUME 9.1 fl (7.5-11.1); NEUT % 96.1 % (42.8-82.8); PLATELET COUNT 183 K/MM3 (134-434); RBC 3.44 M/mm3 (4.00-5.60); WHITE BLOOD COUNT 10.8 K/mm3 (4.0-10.0)
[2019-07-21 07:13] LABS: BILIRUBIN,TOTAL 0.9 mg/dL (0.2-1); BLOOD UREA NITROGEN 62.3 mg/dL (7-18); CREATININE 3.7 mg/dL (0.55-1.3); PHOSPHOROUS 3.8 mg/dL (2.5-4.9); POTASSIUM 4.2 mmol/L (3.5-5.1); TOT PROT 5.1 g/dl (6.4-8.2)
[2019-07-21] MEDS: ALBUTEROL SO4 2.5/IPRATROPIUM 0.5 INH SOL 3 ML VIAL.NEB. NEB SCH ×4 (08:08→19:59)
[2019-07-21] MEDS ORDERED: PT OWN MED DRAWER 7, Y5N ONE (09:12)
--- NOTE | 2019-07-21 09:33 | PN ---
Physical Exam: SUBJECTIVE: Patient seen and examined. No acute events overnight. Pt cannot talk but follows simple commands like squeezing hand. No fevers OBJECTIVE: Vital Signs Period Temp Pulse Resp BP Sys/Mata Pulse Ox Last 24 Hr 97.9 F-102.3 F 72-100 15-29 61-138/41-94 92-100 GENERAL: The patient is awake, alert, lying in bed HEAD: Normal with no signs of trauma. LUNGS: Reduced breath sounds RLL w crackles. No wheezes, no accessory muscle use. HEART: Regular rate and rhythm, S1, S2 without murmur, rub or gallop. ABDOMEN: L abdomen moderate tenderness to palpation. Soft, nondistended, no guarding, no rebound, no hepatosplenomegaly, no masses. EXTREMITIES: warm, well-perfused, no edema or rash noted. Overgrown yellow nails NEUROLOGICAL: Alert, not oriented. Not speaking. Squeezes hands on command Laboratory Results - last 24 hr 07/20/19 07/20/19 07/20/19 15:00 15:00 15:00 WBC 5.5 RBC 4.10 Hgb 11.0 L Hct 34.6 L D MCV 84.5 MCH 26.8 MCHC 31.7 L RDW 18.0 H Plt Count 223 D MPV 10.1 Absolute Neuts (auto) 4.9 Neutrophils % 87.9 H Neutrophils % (Manual) 78.5 Band Neutrophils % 12.0 Lymphocytes % 5.5 L Lymphocytes % (Manual) 6.0 L Monocytes % 6.3 Monocytes % (Manual) 2 L Eosinophils % 0.0 Eosinophils % (Manual) 0.0 Basophils % 0.3 Basophils % (Manual) 0.5 D Myelocytes % (Man) 0 D Promyelocytes % (Man) 0 Blast Cells % (Manual) 0 Nucleated RBC % 0 Metamyelocytes 0 Hypochromia 0 Platelet Estimate Normal Polychromasia 1+ Poikilocytosis 2+ Anisocytosis 2+ Microcytosis 2+ Macrocytosis 0 Tear Drop Cells 1+ Ovalocytes 1+ Baljit Cells 2+ Schistocytes 1+ PT with INR 17.00 H INR 1.44 H PTT (Actin FS) 29.4 VBG pH POC VBG pCO2 POC VBG pO2 VBG HCO3 VBG O2 Sat (Ritesh) VBG Base Excess Sodium 135 L Potassium 5.2 H Chloride 101 Carbon Dioxide 18 L Anion Gap 16 BUN 61.4 H Creatinine 3.9 H Est GFR (CKD-EPI)AfAm 15.28 Est GFR (CKD-EPI)NonAf 13.18 POC Glucometer Random Glucose 111 H Lactic Acid Calcium 8.6 Phosphorus Magnesium Total Bilirubin 1.5 H AST 42 H ALT 17 Alkaline Phosphatase 88 Creatine Kinase Creatine Kinase Index CK-MB (CK-2) Troponin I 0.06 H Total Protein 6.6 Albumin 2.5 L Urine Color Urine Appearance Urine pH Ur Specific [place] Urine Protein Urine Glucose (UA) Urine Ketones Urine Blood Urine Nitrite Urine Bilirubin Urine Urobilinogen Ur Leukocyte Esterase Urine RBC (Auto) Stool Occult Blood Blood Type Antibody Screen 07/20/19 07/20/19 07/20/19 15:00 15:00 15:24 WBC RBC Hgb Hct MCV MCH MCHC RDW Plt Count MPV Absolute Neuts (auto) Neutrophils % Neutrophils % (Manual) Band Neutrophils % Lymphocytes % Lymphocytes % (Manual) Monocytes % Monocytes % (Manual) Eosinophils % Eosinophils % (Manual) Basophils % Basophils % (Manual) Myelocytes % (Man) Promyelocytes % (Man) Blast Cells % (Manual) Nucleated RBC % Metamyelocytes Hypochromia Platelet Estimate Polychromasia Poikilocytosis Anisocytosis Microcytosis Macrocytosis Tear Drop Cells Ovalocytes Baljit Cells Schistocytes PT with INR INR PTT (Actin FS) VBG pH 7.31 POC VBG pCO2 33.0 L POC VBG pO2 < 49 H VBG HCO3 16.3 L VBG O2 Sat (Ritesh) 64.5 L VBG Base Excess -8.6 L Sodium Potassium Chloride Carbon Dioxide Anion Gap BUN Creatinine Est GFR (CKD-EPI)AfAm Est GFR (CKD-EPI)NonAf POC Glucometer Random Glucose Lactic Acid 7.4 H* Calcium Phosphorus Magnesium Total Bilirubin AST ALT Alkaline Phosphatase Creatine Kinase Creatine Kinase Index CK-MB (CK-2) Troponin I Total Protein Albumin Urine Color Urine Appearance Urine pH Ur Specific [place] Urine Protein Urine Glucose (UA) Urine Ketones Urine Blood Urine Nitrite Urine Bilirubin Urine Urobilinogen Ur Leukocyte Esterase Urine RBC (Auto) Stool Occult Blood Negative Blood Type Antibody Screen 07/20/19 07/20/19 07/20/19 15:25 16:11 17:20 WBC RBC Hgb Hct MCV MCH MCHC RDW Plt Count MPV Absolute Neuts (auto) Neutrophils % Neutrophils % (Manual) Band Neutrophils % Lymphocytes % Lymphocytes % (Manual) Monocytes % Monocytes % (Manual) Eosinophils % Eosinophils % (Manual) Basophils % Basophils % (Manual) Myelocytes % (Man) Promyelocytes % (Man) Blast Cells % (Manual) Nucleated RBC % Metamyelocytes Hypochromia Platelet Estimate Polychromasia Poikilocytosis Anisocytosis Microcytosis Macrocytosis Tear Drop Cells Ovalocytes [place] Cells Schistocytes PT with INR INR PTT (Actin FS) VBG pH POC VBG pCO2 POC VBG pO2 VBG HCO3 VBG O2 Sat (Ritesh) VBG Base Excess Sodium Potassium Chloride Carbon Dioxide Anion Gap BUN Creatinine Est GFR (CKD-EPI)AfAm Est GFR (CKD-EPI)NonAf POC Glucometer Random Glucose Lactic Acid 2.3 H* Calcium Phosphorus Magnesium Total Bilirubin AST ALT Alkaline Phosphatase Creatine Kinase Creatine Kinase Index CK-MB (CK-2) Troponin I Total Protein Albumin Urine Color Yellow Urine Appearance Clear Urine pH 5.5 Ur Specific [place] 1.020 Urine Protein 2+ H Urine Glucose (UA) Trace Urine Ketones Negative Urine Blood Trace-intact Urine Nitrite Negative Urine Bilirubin Negative Urine Urobilinogen 0.2 Ur Leukocyte Esterase Trace Urine RBC (Auto) Stool Occult Blood Blood Type A POSITIVE Antibody Screen Negative 07/20/19 07/20/19 07/20/19 20:32 20:32 20:38 WBC RBC Hgb Hct MCV MCH MCHC RDW Plt Count MPV Absolute Neuts (auto) Neutrophils % Neutrophils % (Manual) Band Neutrophils % Lymphocytes % Lymphocytes % (Manual) Monocytes % Monocytes % (Manual) Eosinophils % Eosinophils % (Manual) Basophils % Basophils % (Manual) Myelocytes % (Man) Promyelocytes % (Man) Blast Cells % (Manual) Nucleated RBC % Metamyelocytes Hypochromia Platelet Estimate Polychromasia Poikilocytosis Anisocytosis Microcytosis Macrocytosis Tear Drop Cells Ovalocytes Baljit Cells Schistocytes PT with INR INR PTT (Actin FS) VBG pH POC VBG pCO2 POC VBG pO2 VBG HCO3 VBG O2 Sat (Ritesh) VBG Base Excess Sodium 137 Potassium 3.3 L Chloride 105 Carbon Dioxide 20 L Anion Gap 11 BUN 58.4 H Creatinine 3.7 H Est GFR (CKD-EPI)AfAm 16.28 Est GFR (CKD-EPI)NonAf 14.05 POC Glucometer 156 Random Glucose 161 H Lactic Acid 1.8 Calcium 7.0 L Phosphorus Magnesium Total Bilirubin 1.1 H AST 71 H ALT 21 Alkaline Phosphatase 60 Creatine Kinase 3273 H Creatine Kinase Index 0.6 CK-MB (CK-2) 21.4 H Troponin I 0.13 H Total Protein 5.1 L Albumin 2.0 L Urine Color Urine Appearance Urine pH Ur Specific [place] Urine Protein Urine Glucose (UA) Urine Ketones Urine Blood Urine Nitrite Urine Bilirubin Urine Urobilinogen Ur Leukocyte Esterase Urine RBC (Auto) Stool Occult Blood Blood Type Antibody Screen 07/20/19 07/21/19 07/21/19 23:05 00:56 02:15 WBC RBC Hgb Hct MCV MCH MCHC RDW Plt Count MPV Absolute Neuts (auto) Neutrophils % Neutrophils % (Manual) Band Neutrophils % Lymphocytes % Lymphocytes % (Manual) Monocytes % Monocytes % (Manual) Eosinophils % Eosinophils % (Manual) Basophils % Basophils % (Manual) Myelocytes % (Man) Promyelocytes % (Man) Blast Cells % (Manual) Nucleated RBC % Metamyelocytes Hypochromia Platelet Estimate Polychromasia Poikilocytosis Anisocytosis Microcytosis Macrocytosis Tear Drop Cells Ovalocytes Baljit Cells Schistocytes PT with INR INR PTT (Actin FS) VBG pH POC VBG pCO2 POC VBG pO2 VBG HCO3 VBG O2 Sat (Ritesh) VBG Base Excess Sodium Cancelled 134 L Potassium Cancelled 3.9 Chloride Cancelled 104 Carbon Dioxide Cancelled 19 L Anion Gap Cancelled 11 BUN Cancelled 63.4 H Creatinine Cancelled 3.7 H Est GFR (CKD-EPI)AfAm Cancelled 16.28 Est GFR (CKD-EPI)NonAf Cancelled 14.05 POC Glucometer 161 Random Glucose Cancelled 202 H Lactic Acid Calcium Cancelled 7.0 L Phosphorus Magnesium 1.8 Total Bilirubin AST ALT Alkaline Phosphatase Creatine Kinase 3526 H 3571 H Creatine Kinase Index 0.7 0.7 CK-MB (CK-2) 25.4 H 28.4 H Troponin I 0.15 H 0.16 H Total Protein Albumin Urine Color Urine Appearance Urine pH Ur Specific [place] Urine Protein Urine Glucose (UA) Urine Ketones Urine Blood Urine Nitrite Urine Bilirubin Urine Urobilinogen Ur Leukocyte Esterase Urine RBC (Auto) Stool Occult Blood Blood Type Antibody Screen 07/21/19 07/21/19 07/21/19 05:50 05:59 06:00 WBC 10.8 H RBC 3.44 L Hgb 9.4 L Hct 28.6 L D MCV 83.1 MCH 27.3 MCHC 32.9 RDW 18.0 H Plt Count 183 MPV 9.1 Absolute Neuts (auto) 10.4 H Neutrophils % 96.1 H Neutrophils % (Manual) Band Neutrophils % Lymphocytes % 1.8 L D Lymphocytes % (Manual) Monocytes % 2.0 L Monocytes % (Manual) Eosinophils % 0.0 Eosinophils % (Manual) Basophils % 0.1 Basophils % (Manual) Myelocytes % (Man) Promyelocytes % (Man) Blast Cells % (Manual) Nucleated RBC % 0 Metamyelocytes Hypochromia Platelet Estimate Polychromasia Poikilocytosis Anisocytosis Microcytosis Macrocytosis Tear Drop Cells Ovalocytes [place] Cells Schistocytes PT with INR INR PTT (Actin FS) VBG pH POC VBG pCO2 POC VBG pO2 VBG HCO3 VBG O2 Sat (Ritesh) VBG Base Excess Sodium 134 L Potassium 4.2 Chloride 103 Carbon Dioxide 19 L Anion Gap 12 BUN 62.3 H Creatinine 3.7 H Est GFR (CKD-EPI)AfAm 16.28 Est GFR (CKD-EPI)NonAf 14.05 POC Glucometer 182 Random Glucose 185 H Lactic Acid Calcium 7.0 L Phosphorus 3.8 Magnesium 2.0 Total Bilirubin 0.9 AST 101 H ALT 30 Alkaline Phosphatase 52 Creatine Kinase Creatine Kinase Index CK-MB (CK-2) Troponin I Total Protein 5.1 L Albumin 2.0 L Urine Color Urine Appearance Urine pH Ur Specific [place] Urine Protein Urine Glucose (UA) Urine Ketones Urine Blood Urine Nitrite Urine Bilirubin Urine Urobilinogen Ur Leukocyte Esterase Urine RBC (Auto) Stool Occult Blood Blood Type Antibody Screen 07/21/19 06:00 WBC RBC Hgb Hct MCV MCH MCHC RDW Plt Count MPV Absolute Neuts (auto) Neutrophils % Neutrophils % (Manual) Band Neutrophils % Lymphocytes % Lymphocytes % (Manual) Monocytes % Monocytes % (Manual) Eosinophils % Eosinophils % (Manual) Basophils % Basophils % (Manual) Myelocytes % (Man) Promyelocytes % (Man) Blast Cells % (Manual) Nucleated RBC % Metamyelocytes Hypochromia Platelet Estimate Polychromasia Poikilocytosis Anisocytosis Microcytosis Macrocytosis Tear Drop Cells Ovalocytes [place] Cells Schistocytes PT with INR INR PTT (Actin FS) VBG pH POC VBG pCO2 POC VBG pO2 VBG HCO3 VBG O2 Sat (Ritesh) VBG Base Excess Sodium Potassium Chloride Carbon Dioxide Anion Gap BUN Creatinine Est GFR (CKD-EPI)AfAm Est GFR (CKD-EPI)NonAf POC Glucometer Random Glucose Lactic Acid Calcium Phosphorus Magnesium Total Bilirubin AST ALT Alkaline Phosphatase Creatine Kinase Creatine Kinase Index CK-MB (CK-2) Troponin I 0.14 H Total Protein Albumin Urine Color Urine Appearance Urine pH Ur Specific [place] Urine Protein Urine Glucose (UA) Urine Ketones Urine Blood Urine Nitrite Urine Bilirubin Urine Urobilinogen Ur Leukocyte Esterase Urine RBC (Auto) Stool Occult Blood Blood Type Antibody Screen Active Medications Generic Name Dose Route Start Last Admin Trade Name Freq PRN Reason Stop Dose Admin Acetaminophen 650 mg 07/20/19 19:02 Tylenol - PO Q6H PRN PAIN LEVEL 6-10 Albuterol/Ipratropium 1 amp 07/20/19 20:00 07/21/19 08:08 Duoneb - NEB 1 amp RQID DINESH Administration Chlorhexidine Gluconate 1 applic 07/20/19 22:00 07/20/19 21:06 Hibiclens For Decolonization - TP 1 applic HS DINESH Administration Heparin Sodium (Porcine) 5,000 unit 07/20/19 22:00 07/20/19 21:05 Heparin - SQ 5,000 unit BID DINESH Administration Norepinephrine Bitartrate 8, 500 mls @ 18.75 mls/hr 07/20/19 17:45 07/21/19 04:30 000 mcg/ Dextrose IV 10 mcg/min TITR DINESH 37.5 mls/hr Titration Protocol 5 MCG/MIN Piperacillin Sod/Tazobactam 50 mls @ 100 mls/hr 07/21/19 02:00 Sod 3.375 gm/ Dextrose IVPB Q8H-IV DINESH Protocol Piperacillin Sod/Tazobactam 50 mls @ 100 mls/hr 07/21/19 02:00 07/21/19 02:08 Sod 3.375 gm/ Dextrose IVPB 07/21/19 18:29 100 mls/hr Q8H-IV DINESH Administration Protocol Dextrose/Sodium Chloride 1,000 mls @ 100 mls/hr 07/20/19 19:15 07/20/19 20:00 D5-1/2ns - IV 100 mls/hr ASDIR DINESH Administration Insulin Aspart 1 vial 07/20/19 19:15 07/21/19 06:20 Novolog Vial Sliding Scale - SQ 2 units Q6HPO DINESH Administration Protocol Mupirocin 1 applic 07/20/19 22:00 07/20/19 21:52 Bactroban Ointment (For Decolonization) - NS 07/25/19 21:59 1 applic BID DINESH Administration Pantoprazole Sodium 40 mg 07/20/19 19:15 07/20/19 21:06 Protonix Iv IVPUSH 40 mg DAILY DINESH Administration Prednisone 10 mg 07/21/19 10:00 Deltasone - PO DAILY DINESH Tiotropium [place] 2 puff 07/20/19 21:00 07/20/19 21:52 Spiriva Respimat IH 2 puff DAILY DINESH Administration ASSESSMENT/PLAN: 84M with PMH of COPD (baseline 2-3L O2), HFrEF, CAD, pacemaker (2014), DM, HLD, HTN GERD, R ear deafness, and dementia who presented to the ER after being found down in a NH d/t septic shock with hypotension, lactic acid of 7.6. Received 2L NS. L IJ CVC placed with Levo started Cards - downtrending trop 0.16 to 0.14 - downtrending lactate 7.4 to 1.8 w fluids and antibiotics - echo 07/21 shows reduced EF 30-35%, severe global hypokinesis of L ventricle - L IJ CVC placed 07/20 for refractory hypotension - CVP monitoring, bolus if below goal 8-12 - given 500mL bolus for CVP 6 today - on levo 8 for hypotension, wean as tolerated - Hold HTN meds d/t hypotension - EKG unchanged c/w prior - DVT ppx Pulm - hx COPD - CT chest 07/20 shows severe COPD changes w bulla, RLL consolidation/ atelectasis, trace R pleural fluid - on venti 10L O2, 40% FiO2, wean as tolerated - taking duonebs - holding home spiriva ID - uptrending WBC 5.5 to 10 w neutrophil shift, fever resolved w tylenol - started stress steroids 100 hydrocortisone q8h d/t chronic steroid use - continue zosyn GI - acute diverticulitis - CT A/P 07/20 shows extensive diverticulosis of entire colon w inflammation of sigmoid colon and cecum, large R inguinal hernia containing fluid and nonobstructed bowel loops, calcific abdominal aorta - NPO - PPI ppx Endo - hx DM - insulin sliding scale - LAURA - downtrending Cr 3.9 to 3.7 w fluids - CT A/P 07/20 showed atrophic R kidney - no evidence of UTI on UA - D5 1/2NS @100mL/hr - I/O Heme - anemia - Hgb drop 11.0 to 9.4, no active bleeding - trending H&H Neuro - syncope, hx dementia - CTH 07/20 does not show acute bleed/infarct/fx FEN - D5 1/2NS @100mL/hr - hypoNa - NPO PPX - heparin SQ - protonix Dispo - ICU - discuss goals of care with family when present Visit type - Emergency Visit Emergency Visit: Yes ED Registration Date: 07/20/19 Care time: The patient presented to the Emergency Department on the above date and was hospitalized for further evaluation of their emergent condition. - New Patient This patient is new to me today: Yes Date on this admission: 07/22/19 - Critical Care Critical Care patient: Yes Total Critical Care Time (in minutes): 36 Critical Care Statement: The care of this patient involved high complexity decision making to prevent further life threatening deterioration of the patient 's condition and/or to evaluate & treat vital organ system(s) failure or risk of failure. ATTENDING PHYSICIAN STATEMENT I saw and evaluated the patient. I reviewed the resident's note and discussed the case with the resident. I agree with the resident's findings and plan as documented. SUBJECTIVE: OBJECTIVE: ASSESSMENT AND PLAN:
[2019-07-21] MEDS: DEXTROSE 5%-0.45% SALINE 1,000 ML IV SCH ×2 (10:00→21:47)
[2019-07-21] MEDS ORDERED: predniSONE 10 MG TABLET (UD) PO SCH (10:00)
[2019-07-21] MEDS: PANTOPRAZOLE SODIUM 40 MG VIAL IVPUSH SCH (10:05)
[2019-07-21] MEDS: HEPARIN NA (PORCINE) 5,000 UNITS/ML 1ML VIAL SQ SCH ×2 (10:05→21:47)
[2019-07-21] MEDS: TIOTROPIUM BROMIDE 2.5 MCG (SPIRIVA) RESPIMAT INHALER IH SCH (10:08)
[2019-07-21] MEDS: MUPIROCIN 2% TOPICAL OINTMENT FOR DECOLONIZATION NS SCH ×2 (10:08→21:47)
--- NOTE | 2019-07-21 11:25 | CONSULT ---
Consult Consult Specialty:: Nephrology Reason for Consultation:: LAURA - History of Present Illness Chief Complaint: syncope at home History of Present Illness: Pt is an 84 year old male with pmhx of htn, hld, gerd, dementia, copd, ppm, cad , and chf who presented to the er after being found down at home. He is unable to give history. He is hard of hearing and can answer to simple questions. Family are at bedside and helped with history. He was found to be in renal failure and I was called to evaluate him. he does have have history of CKD. 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) Cardio/Vascular: Yes: CAD, CHF, HTN, Hyperlipdemia, Other (Right external carotid artery stenosis, tachycardia PPM) Pulmonary: Yes: COPD, O2 Dependent, Other (pulmonary nodules h/o invasive Aspergillosis) Gastrointestinal: Yes: Diverticulitis (as per today's CT), Diverticulosis, GERD , Other (left inguinal hernia, duodinitis, colon polyps) Renal/: Yes: Renal Inusuff, BPH, Hematuria, Other (bladder dysfunction) Infectious Disease: Yes: Other (h/o invasive pulmonary aspergillosis) Musculoskeletal: Yes: Chronic low back pain, Osteoarthritis, Other (dupuytren contracture) ENT: Yes: Other [place] Endocrine: Yes: Diabetes Mellitus - Past Surgical History Past Surgical History: Yes: Cholecystectomy (open), Permanent Pacemaker - Alcohol/Substance Use Hx Alcohol Use: No History of Substance Use: reports: None - Smoking History Smoking history: Unknown if ever smoked Have you smoked in the past 12 months: No If you are a former smoker, when did you quit?: 20 YRS AGO - Social History Usual Living Arrangement: With Child ADL: Family Assistance Occupation: , 4 children History of Recent Travel: No Home Medications - Allergies Allergies/Adverse Reactions: Allergies Allergy/AdvReac Type Severity Reaction Status Date / Time Iodinated Contrast Media Allergy Rash Verified 07/20/19 14:41 [Iodinated Contrast Media - IV Dye] levofloxacin [From Levaquin] Allergy "RASH" Verified 07/20/19 14:41 - Home Medications Home Medications: Ambulatory Orders Albuterol Sulfate Inhaler - [Ventolin HFA Inhaler -] 1 - 2 inh PO Q4H PRN Amlodipine Besylate 10 mg PO DAILY 12/19/18 Aspirin Coated [Ecotrin -] 81 mg PO DAILY 12/19/18 Atorvastatin Ca [Lipitor] 20 mg PO HS 12/19/18 Carvedilol [Coreg -] 12.5 mg PO BID 12/19/18 Latanoprost/Pf [Latanoprost 0.005% Eye Drop] 7.5 ml OP DAILY 12/19/18 Losartan Potassium 100 mg PO DAILY 12/19/18 Pantoprazole Sodium 40 mg PO DAILY 12/19/18 Prednisone 10 mg PO DAILY 12/19/18 Risperidone [Risperdal] 1 mg PO DAILY 12/19/18 Tiotropium [place] [Spiriva] 1 inh PO DAILY 12/19/18 Torsemide [Demadex -] 20 mg PO DAILY 12/19/18 Amoxicillin/Potassium Clav [Augmentin 500-125 Tablet] 1 each PO BID 2 Days #4 tablet 12/24/18 predniSONE [Deltasone -] 10 mg PO ASDIR 10 Days #30 tablet 12/24/18 Family Medical History Family History: Unable to Obtain Review of Systems Unable to obtain ROS, reason: pt lethargic Physical Exam Vital Signs: Vital Signs Temperature 98.1 F 07/21/19 08:00 Pulse Rate 81 07/21/19 10:14 Respiratory Rate 18 07/21/19 08:00 Blood Pressure 121/76 07/21/19 10:14 O2 Sat by Pulse Oximetry (%) 99 07/21/19 08:17 Constitutional: Yes: Calm Eyes: Yes: Conjunctiva Clear HENT: Yes: Atraumatic Neck: Yes: Supple Cardiovascular: Yes: S1, S2 Respiratory: Yes: On Venti-Mask Gastrointestinal: Yes: Soft Renal/: Yes: Anthony Present Musculoskeletal: Yes: Muscle Weakness Edema: No Neurological: Yes: Lethargy Labs: CBC, BMP 07/21/19 05:50 07/21/19 06:00 Selected Entries 07/20/19 07/20/19 07/20/19 14:41 21:03 23:00 Blood Pressure 61/41 L 109/67 103/60 07/21/19 00:14 Blood Pressure 97/56 L Laboratory Tests 06/04/18 12/21/18 12/22/18 05:45 06:00 05:30 Sodium Potassium Creatinine 2.6 H 2.6 H 2.6 H 12/23/18 12/24/18 07/20/19 07:43 06:25 15:00 Sodium Potassium Creatinine 2.4 H 2.2 H 3.9 H 07/20/19 07/21/19 07/21/19 20:32 02:15 06:00 Sodium 134 L Potassium 4.2 Creatinine 3.7 H 3.7 H 3.7 H Imaging - Results Chest X-ray: Report Reviewed Problem List - Problems (1) Septic shock Code(s): A41.9 - SEPSIS, UNSPECIFIED ORGANISM; R65.21 - SEVERE SEPSIS WITH SEPTIC SHOCK (2) Acute kidney injury Code(s): N17.9 - ACUTE KIDNEY FAILURE, UNSPECIFIED Assessment/Plan Current Medications Generic Name Dose Route Start Last Admin Trade Name Freq PRN Reason Stop Dose Admin Acetaminophen 650 mg 07/20/19 19:02 Tylenol - PO Q6H PRN PAIN LEVEL 6-10 Albuterol/Ipratropium 1 amp 07/20/19 20:00 07/21/19 08:08 Duoneb - NEB 1 amp RQID DINESH Administration Chlorhexidine Gluconate 1 applic 07/20/19 22:00 07/20/19 21:06 Hibiclens For Decolonization - TP 1 applic HS DINESH Administration Heparin Sodium (Porcine) 5,000 unit 07/20/19 22:00 07/21/19 10:05 Heparin - SQ 5,000 unit BID DINESH Administration Hydrocortisone 100 mg 07/21/19 11:30 Cortef - PO Q8H DINESH Norepinephrine Bitartrate 8, 500 mls @ 18.75 mls/hr 07/20/19 17:45 07/21/19 10:14 000 mcg/ Dextrose IV 8 mcg/min TITR DINESH 30 mls/hr Titration Protocol 5 MCG/MIN Piperacillin Sod/Tazobactam 50 mls @ 100 mls/hr 07/21/19 02:00 Sod 3.375 gm/ Dextrose IVPB Q8H-IV DINESH Protocol Piperacillin Sod/Tazobactam 50 mls @ 100 mls/hr 07/21/19 02:00 07/21/19 10:11 Sod 3.375 gm/ Dextrose IVPB 07/21/19 18:29 100 mls/hr Q8H-IV DINESH Administration Protocol Dextrose/Sodium Chloride 1,000 mls @ 100 mls/hr 07/20/19 19:15 07/21/19 10:00 D5-1/2ns - IV 100 mls/hr ASDIR DINESH Administration Insulin Aspart 1 vial 07/20/19 19:15 07/21/19 06:20 Novolog Vial Sliding Scale - SQ 2 units Q6HPO DINESH Administration Protocol Mupirocin 1 applic 07/20/19 22:00 07/21/19 10:08 Bactroban Ointment (For Decolonization) - NS 07/25/19 21:59 1 applic BID DINESH Administration Pantoprazole Sodium 40 mg 07/20/19 19:15 07/21/19 10:05 Protonix Iv IVPUSH 40 mg DAILY DINESH Administration Impression 1. LAURA 2. sepsis 3. pna 4. ckd 5. copd 6. dm 7. hx htn 8. dementia 9. rhabdo Plan - cont fluids - check renal ultrasound - monitor renal function - monitor bp - pressors to map 65 - avoid nephrotoxins - renal dose meds - monitor cpk
[2019-07-21 11:27] LABS: ANISOCYTOSIS 1+; MACROCYTOSIS 0; PLATELET ESTIMATE NORMAL
[2019-07-21] MEDS ORDERED: HYDROCORTISONE 20 MG TABLET PO SCH ×2 (11:30→14:00)
[2019-07-21] MEDS ORDERED: SODIUM CHLORIDE 500 ML IV STA (11:47)
--- NOTE | 2019-07-21 11:54 | PN ---
Teaching Attending Note Name of Resident: Sven Rosas ATTENDING PHYSICIAN STATEMENT I saw and evaluated the patient. I reviewed the resident's note and discussed the case with the resident. I agree with the resident's findings and plan as documented. SUBJECTIVE: Pt seen and examined in the ICU. Remains on levophed gtt. Pt nonverbal at this time. Fever curve trending down. OBJECTIVE: Vital Signs Period Temp Pulse Resp BP Sys/Mata Pulse Ox Last 24 Hr 97.9 F-102.3 F 72-100 15-29 61-138/41-94 92-100 Intake & Output 07/18/19 07/19/19 07/20/19 07/21/19 23:59 23:59 23:59 23:59 Intake Total 1870 Output Total 10 250 Balance -10 1620 Weight 69.989 kg 69.989 kg Gen: NAD at rest Heart: RRR Lung: decreased breath sounds at the bases Abd: soft, mild TTP diffusely, no rebound Ext: no edema CBC, BMP 07/21/19 05:50 07/21/19 06:00 Active Medications Acetaminophen (Tylenol -) 650 mg PO Q6H PRN PRN Reason: PAIN LEVEL 6-10 Albuterol/Ipratropium (Duoneb -) 1 amp NEB RQID DINESH Last Admin: 07/21/19 08:08 Dose: 1 amp Chlorhexidine Gluconate (Hibiclens For Decolonization -) 1 applic TP HS DINESH Last Admin: 07/20/19 21:06 Dose: 1 applic Heparin Sodium (Porcine) (Heparin -) 5,000 unit SQ BID DINESH Last Admin: 07/21/19 10:05 Dose: 5,000 unit Hydrocortisone (Cortef -) 100 mg PO TID DINESH Norepinephrine Bitartrate 8, (000 mcg/ Dextrose) 500 mls @ 18.75 mls/hr IV TITR DINESH; Protocol Last Titration: 07/21/19 10:14 Dose: 8 mcg/min, 30 mls/hr Piperacillin Sod/Tazobactam (Sod 3.375 gm/ Dextrose) 50 mls @ 100 mls/hr IVPB Q8H-IV DINESH; Protocol Piperacillin Sod/Tazobactam (Sod 3.375 gm/ Dextrose) 50 mls @ 100 mls/hr IVPB Q8H-IV DINESH; Protocol Stop: 07/21/19 18:29 Last Admin: 07/21/19 10:11 Dose: 100 mls/hr Dextrose/Sodium Chloride (D5-1/2ns -) 1,000 mls @ 100 mls/hr IV ASDIR DINESH Last Admin: 07/21/19 10:00 Dose: 100 mls/hr Sodium Chloride (Normal Saline -) 500 mls @ 500 mls/hr IV ASDIR STA Stop: 07/21/19 12:46 Insulin Aspart (Novolog Vial Sliding Scale -) 1 vial SQ Q6HPO [facility]; Protocol Last Admin: 07/21/19 06:20 Dose: 2 units Mupirocin (Bactroban Ointment (For Decolonization) -) 1 applic NS BID DINESH Stop: 07/25/19 21:59 Last Admin: 07/21/19 10:08 Dose: 1 applic Pantoprazole Sodium (Protonix Iv) 40 mg IVPUSH DAILY [facility] Last Admin: 07/21/19 10:05 Dose: 40 mg ASSESSMENT AND PLAN: r/o Pneumonia r/o Acute Diverticulitis Septic Shock CAD/+Troponins likely [place] Ischemia Lactic Acidosis Acute on Chronic Renal Failure COPD Chronic Hypoxic Respiratory Failure LV Systolic Dysfunction HTN DM Dementia - continue antibiotics - f/u cultures - check CVP - IVF boluses to keep CVP 8-12 - titrate pressors to maintain MAP >65 - echocardiogram - monitor urine output, creatinine - lactate downtrending - O2 to keep SpO2 >90% - start stress dose steroids as pt on chronic steroids - inhaled bronchodilators - DVT/GI prophylaxis - continue ICU monitoring critical care time spent in reviewing chart, evaluating patient and formulating plan 35 min
--- NOTE | 2019-07-21 12:05 | EKG ---
Test Reason : Blood Pressure : / mmHG Vent. Rate : 083 BPM Atrial Rate : 138 BPM P-R Int : 000 ms QRS Dur : 196 ms QT Int : 454 ms P-R-T Axes : 000 268 077 degrees QTc Int : 533 ms Ventricular-paced rhythm ABNORMAL ECG WHEN COMPARED WITH ECG OF 20-JUL-2019 14:36, VENT. RATE HAS INCREASED BY 5 BPM Confirmed by LOU PIZANO MD ([id number]) on 07/21/2019 12:05:28 PM Referred By: Confirmed By:LOU PIZANO MD
[2019-07-21] MEDS: HYDROCORTISONE SOD SUCCINATE 100 MG/2 ML VIAL IVPUSH SCH ×2 (12:10→18:18)
--- NOTE | 2019-07-21 12:24 | EKG ---
Test Reason : Blood Pressure : / mmHG Vent. Rate : 078 BPM Atrial Rate : 060 BPM P-R Int : 000 ms QRS Dur : 170 ms QT Int : 434 ms P-R-T Axes : -20 -85 084 degrees QTc Int : 494 ms Ventricular-paced rhythm ABNORMAL ECG WHEN COMPARED WITH ECG OF 18-DEC-2018 21:31, VENT. RATE HAS INCREASED BY 5 BPM Confirmed by LOU PIZANO MD ([id number]) on 07/21/2019 12:24:06 PM Referred By: Confirmed By:LOU PIZANO MD
--- NOTE | 2019-07-21 12:54 | PN ---
Progress Note (short form) - Note Progress Note: ID CONSULT DICTATED SEPSIS/ SEPTIC SHOCK PNEUMONIA ? DIVERTICULITIS RENAL FAILURE PENDING SEPSIS WORKUP, CONTINUE EMPIRIC ZOSYN
--- NOTE | 2019-07-21 13:24 | ECHO ---
Name: ANTIONE NIX Exam:Adult Echocardiogram Study Date: 07/21/2019 09:03 AM Age: 84 yrs Reason For Study: CHF Height: 68 in Weight: 160 lb BSA: 1.9 m2 BP: 119/66 mmHg MMode/2D Measurements & Calculations IVSd: 0.99 cm Ao root diam: 3.2 cm LVIDd: 6.0 cm LA dimension: 3.6 cm LVIDs: 4.8 cm LVPWd: 0.97 cm EDV(Teich): 179.0 ml LVOT diam: 2.1 cm ESV(Teich): 107.1 ml RV S Evan: 12.9 cm/sec Doppler Measurements & Calculations MV E max evan: 47.9 cm/sec Ao V2 max: 109.2 cm/sec MV A max evan: 58.2 cm/sec Ao max P.8 mmHg MV E/A: 0.82 MV dec time: 0.19 sec KENNA(V,D): 1.8 cm2 LV V1 max P.2 mmHg MR max evan: 303.3 cm/sec LV V1 max: 54.8 cm/sec MR max P.8 mmHg TR max evan: 129.4 cm/sec Med Peak E' Evan: 4.3 cm/sec TR max P.4 mmHg Med E/e': 11.1 RVSP(TR): 17.4 mmHg Lat Peak E' Evan: 3.6 cm/sec Lat E/e': 13.3 RAP systole: 10.0 mmHg Procedure A complete two-dimensional transthoracic echocardiogram was performed (2D, M-mode, Doppler and color flow Doppler). Left Ventricle The left ventricle is mildly dilated. Left ventricular systolic function is severely reduced. Ejectio n Fraction = 30-35%. There is severe global hypokinesis of the left ventricle. Right Ventricle The right ventricle is normal in size and function. There is a pacemaker lead in the right ventricle. Atria Normal left and right atrial size and function. There is a catheter/pacemaker lead seen in the right atrium. Mitral Valve There is mild mitral regurgitation. Tricuspid Valve There is trace tricuspid regurgitation. There was insufficient TR detected to calculate RV systolic p ressure. Aortic Valve No hemodynamically significant valvular aortic stenosis. No aortic regurgitation is present. Pulmonic Valve There is no pulmonic valvular regurgitation. Great Vessels The aortic root is normal size. Pericardium/Pleura There is no pericardial effusion. Interpretation Summary The left ventricle is mildly dilated. Left ventricular systolic function is severely reduced. There is severe global hypokinesis of the left ventricle. The right ventricle is normal in size and function. There is a pacemaker lead in the right ventricle. There is a pacemaker lead seen in the right atrium. There is mild mitral regurgitation. There is trace tricuspid regurgitation. MD Luis Gayle 07/21/2019 01:24 PM
--- NOTE | 2019-07-21 15:10 | CONS ---
INFECTIOUS DISEASE CONSULTATION DATE OF CONSULTATION: DATE OF DICTATION: 07/21/2019 HISTORY OF PRESENT ILLNESS: The patient is an 84-year-old male who is evaluated for septic shock. History was obtained from the chart, as he cannot give a history. He was admitted to the hospital on July 20, 2019, after being found on the floor at home. He was brought to the emergency room, where he was noted to be hypotensive. He required IV fluids and pressors. Presently, he is in the intensive care unit. His course has been complicated by fever to 102. Cultures were obtained. He was empirically treated with vancomycin and Zosyn. On initial evaluation, CAT scan of the abdomen and pelvis was performed and showed a right lower lobe consolidation, as well as possible acute diverticulitis. He is awake and alert. He is not acutely toxic appearing, in no acute distress. He remains hypotensive on pressors. He offers no focal complaint. He was hospitalized earlier this year for exacerbation of COPD. He has no history of multidrug-resistant organisms. PAST MEDICAL HISTORY: Positive for dementia, hypertension, hyperlipidemia, diabetes mellitus, coronary artery disease, congestive heart failure, COPD. PAST SURGICAL HISTORY: Status post permanent pacemaker, cholecystectomy. ALLERGIES: IODINE; LEVAQUIN. MEDICATIONS: Include Tylenol, albuterol, heparin, methylprednisolone, norepinephrine, vancomycin, Zosyn. SOCIAL HISTORY: He resides in the community. He is a nonsmoker and nondrinker. SYSTEMS REVIEW: Neurologic: No seizure activity or focal weakness. Cardiac: Negative chest pain or palpitations. Respiratory: Negative cough or sputum production. Gastrointestinal: Negative vomiting or diarrhea. Genitourinary: Negative for urinary tract infection. LABORATORY DATA: White blood cell count 10.8, 96 neutrophils, 1 band, 2 lymphocytes, hematocrit 28.6, platelets 183. BUN 62, creatinine 3.7. Urinalysis negative. Cultures are pending. PHYSICAL EXAMINATION: General: On physical examination, he is awake, he is hard of hearing, in no acute distress. Vital Signs: Temperature 98.4, T-maximum 102.3, blood pressure 116/62, pulse 81 regular, respirations 22 per minute. Eyes: Sclerae are anicteric. Heart: Heart sounds S1, S2. Lungs: Clear bilaterally. No rhonchi, rales or wheezing. Abdomen: Soft. Distended. No tenderness elicited. Extremities: Negative for edema. IMPRESSION: 1. Sepsis/septic shock. 2. Fever and leukocytosis. 3. Lactic acidosis. 4. Acute on chronic renal failure. Suspect sepsis/septic shock, secondary to pulmonary versus GI focus. Patient has been given a dose of vancomycin and will continue Zosyn adjusted for renal insufficiency pending cultures. Obtain sputum culture, urine legionella antigen. IV fluid hydration. Pressors as needed. Will follow. Thank you for the kind referral. WALKER YATES M.D. RICHY/[id number]
--- NOTE | 2019-07-21 17:29 | PN ---
Teaching Attending Note Name of Resident: Ross Thibodeaux ATTENDING PHYSICIAN STATEMENT I saw and evaluated the patient. I reviewed the resident's note and discussed the case with the resident. I agree with the resident's findings and plan as documented. SUBJECTIVE: More awake, but still unable to recount history. Denies CP/ palpitations/SOB/cough/abdominal pain. No fever/chills. OBJECTIVE: Fever resolved Tmax 102.3, hemodynamicaly Stable. SpO2 99% on 40% Ventimask. Last Vital Signs Temp Pulse Resp BP Pulse Ox 98.8 F 98 H 32 H 101/55 L 99 07/21/19 14:00 07/21/19 16:00 07/21/19 16:00 07/21/19 16:00 07/21/19 13:03 HEENT - Atraumatic, Normocephalic. Pale+ Heart - S1, S2, RRR, PPM in situ Lungs - few basal crackles. Abdomen - Soft, some scaring associated with prior open cholecystectomy incision with underlying RUQ tenderness along with LLQ tenderness. Bowel Sounds normal. Extremities - no edema, no calf tenderness. Neuro - AAO x 2-3. Moving all 4 extremities. Laboratory Results - last 24 hr 07/20/19 07/20/19 07/20/19 15:00 17:20 20:32 WBC RBC Hgb Hct MCV MCH MCHC RDW Plt Count MPV Absolute Neuts (auto) Neutrophils % Neutrophils % (Manual) 78.5 Band Neutrophils % 12.0 Lymphocytes % Lymphocytes % (Manual) 6.0 L Monocytes % Monocytes % (Manual) 2 L Eosinophils % Eosinophils % (Manual) 0.0 Basophils % Basophils % (Manual) 0.5 D Myelocytes % (Man) 0 D Promyelocytes % (Man) 0 Blast Cells % (Manual) 0 Nucleated RBC % 0 Metamyelocytes 0 Hypochromia 0 Platelet Estimate Normal Polychromasia 1+ Poikilocytosis 2+ Anisocytosis 2+ Microcytosis 2+ Macrocytosis 0 Tear Drop Cells 1+ Ovalocytes 1+ Amory Cells 2+ Schistocytes 1+ Sodium Potassium Chloride Carbon Dioxide Anion Gap BUN Creatinine Est GFR (CKD-EPI)AfAm Est GFR (CKD-EPI)NonAf POC Glucometer Random Glucose Lactic Acid 2.3 H* 1.8 Calcium Phosphorus Magnesium Total Bilirubin AST ALT Alkaline Phosphatase Creatine Kinase Creatine Kinase Index CK-MB (CK-2) Troponin I Total Protein Albumin 07/20/19 07/20/19 07/20/19 20:32 20:38 23:05 WBC RBC Hgb Hct MCV MCH MCHC RDW Plt Count MPV Absolute Neuts (auto) Neutrophils % Neutrophils % (Manual) Band Neutrophils % Lymphocytes % Lymphocytes % (Manual) Monocytes % Monocytes % (Manual) Eosinophils % Eosinophils % (Manual) Basophils % Basophils % (Manual) Myelocytes % (Man) Promyelocytes % (Man) Blast Cells % (Manual) Nucleated RBC % Metamyelocytes Hypochromia Platelet Estimate Polychromasia Poikilocytosis Anisocytosis Microcytosis Macrocytosis Tear Drop Cells Ovalocytes [place]ory Cells Schistocytes Sodium 137 Cancelled Potassium 3.3 L Cancelled Chloride 105 Cancelled Carbon Dioxide 20 L Cancelled Anion Gap 11 Cancelled BUN 58.4 H Cancelled Creatinine 3.7 H Cancelled Est GFR (CKD-EPI)AfAm 16.28 Cancelled Est GFR (CKD-EPI)NonAf 14.05 Cancelled POC Glucometer 156 Random Glucose 161 H Cancelled Lactic Acid Calcium 7.0 L Cancelled Phosphorus Magnesium 1.8 Total Bilirubin 1.1 H AST 71 H ALT 21 Alkaline Phosphatase 60 Creatine Kinase 3273 H 3526 H Creatine Kinase Index 0.6 0.7 CK-MB (CK-2) 21.4 H 25.4 H Troponin I 0.13 H 0.15 H Total Protein 5.1 L Albumin 2.0 L 07/21/19 07/21/19 07/21/19 00:56 02:15 05:50 WBC 10.8 H RBC 3.44 L Hgb 9.4 L Hct 28.6 L D MCV 83.1 MCH 27.3 MCHC 32.9 RDW 18.0 H Plt Count 183 MPV 9.1 Absolute Neuts (auto) 10.4 H Neutrophils % 96.1 H Neutrophils % (Manual) 70.0 Band Neutrophils % 21.0 Lymphocytes % 1.8 L D Lymphocytes % (Manual) 2.0 L D Monocytes % 2.0 L Monocytes % (Manual) 4 D Eosinophils % 0.0 Eosinophils % (Manual) 0.0 Basophils % 0.1 Basophils % (Manual) 0.0 Myelocytes % (Man) 0 Promyelocytes % (Man) 0 Blast Cells % (Manual) 0 Nucleated RBC % 0 Metamyelocytes 2 D Hypochromia 0 Platelet Estimate Normal Polychromasia 1+ Poikilocytosis 1+ Anisocytosis 1+ Microcytosis 0 Macrocytosis 0 Tear Drop Cells Ovalocytes Baljit Cells 1+ Schistocytes Sodium 134 L Potassium 3.9 Chloride 104 Carbon Dioxide 19 L Anion Gap 11 BUN 63.4 H Creatinine 3.7 H Est GFR (CKD-EPI)AfAm 16.28 Est GFR (CKD-EPI)NonAf 14.05 POC Glucometer 161 Random Glucose 202 H Lactic Acid Calcium 7.0 L Phosphorus Magnesium Total Bilirubin AST ALT Alkaline Phosphatase Creatine Kinase 3571 H Creatine Kinase Index 0.7 CK-MB (CK-2) 28.4 H Troponin I 0.16 H Total Protein Albumin 07/21/19 07/21/19 07/21/19 05:59 06:00 06:00 WBC RBC Hgb Hct MCV MCH MCHC RDW Plt Count MPV Absolute Neuts (auto) Neutrophils % Neutrophils % (Manual) Band Neutrophils % Lymphocytes % Lymphocytes % (Manual) Monocytes % Monocytes % (Manual) Eosinophils % Eosinophils % (Manual) Basophils % Basophils % (Manual) Myelocytes % (Man) Promyelocytes % (Man) Blast Cells % (Manual) Nucleated RBC % Metamyelocytes Hypochromia Platelet Estimate Polychromasia Poikilocytosis Anisocytosis Microcytosis Macrocytosis Tear Drop Cells Ovalocytes Baljit Cells Schistocytes Sodium 134 L Potassium 4.2 Chloride 103 Carbon Dioxide 19 L Anion Gap 12 BUN 62.3 H Creatinine 3.7 H Est GFR (CKD-EPI)AfAm 16.28 Est GFR (CKD-EPI)NonAf 14.05 POC Glucometer 182 Random Glucose 185 H Lactic Acid Calcium 7.0 L Phosphorus 3.8 Magnesium 2.0 Total Bilirubin 0.9 AST 101 H ALT 30 Alkaline Phosphatase 52 Creatine Kinase Creatine Kinase Index CK-MB (CK-2) Troponin I 0.14 H Total Protein 5.1 L Albumin 2.0 L 07/21/19 11:59 WBC RBC Hgb Hct MCV MCH MCHC RDW Plt Count MPV Absolute Neuts (auto) Neutrophils % Neutrophils % (Manual) Band Neutrophils % Lymphocytes % Lymphocytes % (Manual) Monocytes % Monocytes % (Manual) Eosinophils % Eosinophils % (Manual) Basophils % Basophils % (Manual) Myelocytes % (Man) Promyelocytes % (Man) Blast Cells % (Manual) Nucleated RBC % Metamyelocytes Hypochromia Platelet Estimate Polychromasia Poikilocytosis Anisocytosis Microcytosis Macrocytosis Tear Drop Cells Ovalocytes Baljit Cells Schistocytes Sodium Potassium Chloride Carbon Dioxide Anion Gap BUN Creatinine Est GFR (CKD-EPI)AfAm Est GFR (CKD-EPI)NonAf POC Glucometer 175 Random Glucose Lactic Acid Calcium Phosphorus Magnesium Total Bilirubin AST ALT Alkaline Phosphatase Creatine Kinase Creatine Kinase Index CK-MB (CK-2) Troponin I Total Protein Albumin Current Medications Generic Name Dose Route Start Last Admin Trade Name Freq PRN Reason Stop Dose Admin Acetaminophen 650 mg 07/20/19 19:02 Tylenol - PO Q6H PRN PAIN LEVEL 6-10 Albuterol/Ipratropium 1 amp 07/20/19 20:00 07/21/19 17:03 Duoneb - NEB 1 amp RQID DINESH Administration Chlorhexidine Gluconate 1 applic 07/20/19 22:00 07/20/19 21:06 Hibiclens For Decolonization - TP 1 applic HS DINESH Administration Heparin Sodium (Porcine) 5,000 unit 07/20/19 22:00 07/21/19 10:05 Heparin - SQ 5,000 unit BID DINESH Administration Hydrocortisone Sodium Succinate 100 mg 07/21/19 12:00 07/21/19 12:10 Solu-Cortef - IVPUSH 100 mg Q8H-IV DINESH Administration Norepinephrine Bitartrate 8, 500 mls @ 18.75 mls/hr 07/20/19 17:45 07/21/19 10:14 000 mcg/ Dextrose IV 8 mcg/min TITR DINESH 30 mls/hr Titration Protocol 5 MCG/MIN Dextrose/Sodium Chloride 1,000 mls @ 100 mls/hr 07/20/19 19:15 07/21/19 10:00 D5-1/2ns - IV 100 mls/hr ASDIR DINESH Administration Piperacillin Sod/Tazobactam 50 mls @ 100 mls/hr 07/21/19 18:00 Sod 2.25 gm/ Dextrose IVPB Q8H-IV DINESH Protocol Insulin Aspart 1 vial 07/20/19 19:15 07/21/19 12:03 Novolog Vial Sliding Scale - SQ 2 units Q6HPO DINESH Administration Protocol Mupirocin 1 applic 07/20/19 22:00 07/21/19 10:08 Bactroban Ointment (For Decolonization) - NS 07/25/19 21:59 1 applic BID DINESH Administration Pantoprazole Sodium 40 mg 07/20/19 19:15 07/21/19 10:05 Protonix Iv IVPUSH 40 mg DAILY DINESH Administration Home Medications Medication Instructions Recorded Albuterol Sulfate Inhaler - 1 - 2 inh PO Q4H PRN 12/19/18 [Ventolin HFA Inhaler -] Amlodipine Besylate 10 mg PO DAILY 12/19/18 Aspirin Coated [Ecotrin -] 81 mg PO DAILY 12/19/18 Atorvastatin Ca [Lipitor] 20 mg PO HS 12/19/18 Carvedilol [Coreg -] 12.5 mg PO BID 12/19/18 Latanoprost/Pf [Latanoprost 0.005% 7.5 ml OP DAILY 12/19/18 Eye Drop] Losartan Potassium 100 mg PO DAILY 12/19/18 Pantoprazole Sodium 40 mg PO DAILY 12/19/18 Prednisone 10 mg PO DAILY 12/19/18 Risperidone [Risperdal] 1 mg PO DAILY 12/19/18 Tiotropium [place] [Spiriva] 1 inh PO DAILY 12/19/18 Torsemide [Demadex -] 20 mg PO DAILY 12/19/18 Amoxicillin/Potassium Clav 1 each PO BID 2 Days #4 tablet 12/24/18 [Augmentin 500-125 Tablet] predniSONE [Deltasone -] 10 mg PO ASDIR 10 Days #30 tablet 12/24/18 ASSESSMENT AND PLAN: 84 year old male with history of COPD (on Home O2), Chronic Systolic CHF, Arrhythmia s/p PPM, CAD, DM 2, HTN, CKD 3/4, HLD, Dementia (normally AAO x 2) 1. Septic Shocksecondary to Diverticulitis +/- Pneumonia T max 102.3, hypotensive requiring Levophed and stress dose steroids. Lactic Acidosis resolved CT A/P - bibasal atelectasis ?consolidation, diverticulosis, possible diverticulitis. IV Zosyn empirically as per ID continued ICU admission for pressors and monitoring of respiratory status. No evidence of hypoxia - recommend weaning down supplemental O2 to home O2 requirements (4L) 2. Syncope, likely secondary to hypotension CT Head - no acute intracranial findings. No CP/palpitations TropI max 0.16, likely sec to demand versus Rhabdomyolysis ECG - Ventricular paced rhythm with no ST/T wave abnormalities. CXR - Cardiomegaly, no pulmonary findings. 3. Acute rhabdomyolysis CPK 3571. Continue gentle IV hydration and monitor. 4. 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 Seen by Nephrology- recommend Renal US. 5. CRF sec to COPD (on home O2, chronically on steroids) - stable, no evidence of acute exacerbation. Started on stress dose steroids. Regular DuoNebs. 6. DM 2 - will maintain on sliding scale. 7. HLD - CPK elevated. Hold Statin. 8. HTN - All anti-hypertensive medications held due to shock requiring pressors. 9. Chronic Systolic CHF - EF 30-35% with global hypokinesisNormally on BB, MONE-I , Torsemide. Hold Torsemide in favor of IV hydration for now. Monitor renal response. 10. Hyperkalemia, mild - resolved with IV hydration. 11. CAD - no reported CP or EKG changes. TropI elevated to max of 0.16, likely sec to demand +/- Acute Rhabdo. DVT Px - Heparin SQ. FOBT neg. GI Px- PPI
--- NOTE | 2019-07-21 17:41 | PN ---
Physical Exam: SUBJECTIVE: Patient seen and examined NAEON. levophed 8mcg Denies pain OBJECTIVE: Vital Signs Period Temp Pulse Resp BP Sys/Mata Pulse Ox Last 24 Hr 97.9 F-102 F 72-106 15-36 93-138/50-92 99-100 GENERAL: somnolent, oriented to self, year, president. HEAD: NC/AT, no hematomas noted, no facial lac noted EYES: sclera anicteric, mildly pale conjunctiva EARS, NOSE, THROAT: Ears normal, nares patent. Moist mucous membranes. Poor dentition NECK: no cervical LAD. Left IJ in place LUNGS: CTA bilaterally. No wheezes, and no crackles. No accessory muscle use. nonrebreather HEART: Regular rate and rhythm, normal S1 and S2 without murmur, rub or gallop. Left chest wall w/ palpable PPM, no overlying erythema. ABDOMEN: Right subcostal incisional scar. Right-sided subcostal bulge +20cm in size. ND. Tenderness with deep palpation to RUQ, and LLQ. MUSCULOSKELETAL: No bony deformities or tenderness. No skin tears, ecchymosis at extremities. Long, yellowed fingernails/toenails UPPER EXTREMITIES: 2+ pulses, warm, well-perfused. No cyanosis. No clubbing. No peripheral edema. Cool extremities LOWER EXTREMITIES: 2+ pulses, warm, well-perfused. No calf tenderness. No peripheral edema. Cool extremities NEUROLOGICAL: follows commands. Paper Sheeter strength 5/5. Moves fingers and toes on command SKIN: dry, cool extremities Laboratory Results - last 24 hr 07/20/19 07/20/19 07/20/19 15:00 17:20 20:32 WBC RBC Hgb Hct MCV MCH MCHC RDW Plt Count MPV Absolute Neuts (auto) Neutrophils % Neutrophils % (Manual) 78.5 Band Neutrophils % 12.0 Lymphocytes % Lymphocytes % (Manual) 6.0 L Monocytes % Monocytes % (Manual) 2 L Eosinophils % Eosinophils % (Manual) 0.0 Basophils % Basophils % (Manual) 0.5 D Myelocytes % (Man) 0 D Promyelocytes % (Man) 0 Blast Cells % (Manual) 0 Nucleated RBC % 0 Metamyelocytes 0 Hypochromia 0 Platelet Estimate Normal Polychromasia 1+ Poikilocytosis 2+ Anisocytosis 2+ Microcytosis 2+ Macrocytosis 0 Tear Drop Cells 1+ Ovalocytes 1+ [place] Cells 2+ Schistocytes 1+ Sodium Potassium Chloride Carbon Dioxide Anion Gap BUN Creatinine Est GFR (CKD-EPI)AfAm Est GFR (CKD-EPI)NonAf POC Glucometer Random Glucose Lactic Acid 2.3 H* 1.8 Calcium Phosphorus Magnesium Total Bilirubin AST ALT Alkaline Phosphatase Creatine Kinase Creatine Kinase Index CK-MB (CK-2) Troponin I Total Protein Albumin 07/20/19 07/20/19 07/20/19 20:32 20:38 23:05 WBC RBC Hgb Hct MCV MCH MCHC RDW Plt Count MPV Absolute Neuts (auto) Neutrophils % Neutrophils % (Manual) Band Neutrophils % Lymphocytes % Lymphocytes % (Manual) Monocytes % Monocytes % (Manual) Eosinophils % Eosinophils % (Manual) Basophils % Basophils % (Manual) Myelocytes % (Man) Promyelocytes % (Man) Blast Cells % (Manual) Nucleated RBC % Metamyelocytes Hypochromia Platelet Estimate Polychromasia Poikilocytosis Anisocytosis Microcytosis Macrocytosis Tear Drop Cells Ovalocytes Baljit Cells Schistocytes Sodium 137 Cancelled Potassium 3.3 L Cancelled Chloride 105 Cancelled Carbon Dioxide 20 L Cancelled Anion Gap 11 Cancelled BUN 58.4 H Cancelled Creatinine 3.7 H Cancelled Est GFR (CKD-EPI)AfAm 16.28 Cancelled Est GFR (CKD-EPI)NonAf 14.05 Cancelled POC Glucometer 156 Random Glucose 161 H Cancelled Lactic Acid Calcium 7.0 L Cancelled Phosphorus Magnesium 1.8 Total Bilirubin 1.1 H AST 71 H ALT 21 Alkaline Phosphatase 60 Creatine Kinase 3273 H 3526 H Creatine Kinase Index 0.6 0.7 CK-MB (CK-2) 21.4 H 25.4 H Troponin I 0.13 H 0.15 H Total Protein 5.1 L Albumin 2.0 L 07/21/19 07/21/19 07/21/19 00:56 02:15 05:50 WBC 10.8 H RBC 3.44 L Hgb 9.4 L Hct 28.6 L D MCV 83.1 MCH 27.3 MCHC 32.9 RDW 18.0 H Plt Count 183 MPV 9.1 Absolute Neuts (auto) 10.4 H Neutrophils % 96.1 H Neutrophils % (Manual) 70.0 Band Neutrophils % 21.0 Lymphocytes % 1.8 L D Lymphocytes % (Manual) 2.0 L D Monocytes % 2.0 L Monocytes % (Manual) 4 D Eosinophils % 0.0 Eosinophils % (Manual) 0.0 Basophils % 0.1 Basophils % (Manual) 0.0 Myelocytes % (Man) 0 Promyelocytes % (Man) 0 Blast Cells % (Manual) 0 Nucleated RBC % 0 Metamyelocytes 2 D Hypochromia 0 Platelet Estimate Normal Polychromasia 1+ Poikilocytosis 1+ Anisocytosis 1+ Microcytosis 0 Macrocytosis 0 Tear Drop Cells Ovalocytes [place] Cells 1+ Schistocytes Sodium 134 L Potassium 3.9 Chloride 104 Carbon Dioxide 19 L Anion Gap 11 BUN 63.4 H Creatinine 3.7 H Est GFR (CKD-EPI)AfAm 16.28 Est GFR (CKD-EPI)NonAf 14.05 POC Glucometer 161 Random Glucose 202 H Lactic Acid Calcium 7.0 L Phosphorus Magnesium Total Bilirubin AST ALT Alkaline Phosphatase Creatine Kinase 3571 H Creatine Kinase Index 0.7 CK-MB (CK-2) 28.4 H Troponin I 0.16 H Total Protein Albumin 07/21/19 07/21/19 07/21/19 05:59 06:00 06:00 WBC RBC Hgb Hct MCV MCH MCHC RDW Plt Count MPV Absolute Neuts (auto) Neutrophils % Neutrophils % (Manual) Band Neutrophils % Lymphocytes % Lymphocytes % (Manual) Monocytes % Monocytes % (Manual) Eosinophils % Eosinophils % (Manual) Basophils % Basophils % (Manual) Myelocytes % (Man) Promyelocytes % (Man) Blast Cells % (Manual) Nucleated RBC % Metamyelocytes Hypochromia Platelet Estimate Polychromasia Poikilocytosis Anisocytosis Microcytosis Macrocytosis Tear Drop Cells Ovalocytes Baljit Cells Schistocytes Sodium 134 L Potassium 4.2 Chloride 103 Carbon Dioxide 19 L Anion Gap 12 BUN 62.3 H Creatinine 3.7 H Est GFR (CKD-EPI)AfAm 16.28 Est GFR (CKD-EPI)NonAf 14.05 POC Glucometer 182 Random Glucose 185 H Lactic Acid Calcium 7.0 L Phosphorus 3.8 Magnesium 2.0 Total Bilirubin 0.9 AST 101 H ALT 30 Alkaline Phosphatase 52 Creatine Kinase Creatine Kinase Index CK-MB (CK-2) Troponin I 0.14 H Total Protein 5.1 L Albumin 2.0 L 07/21/19 11:59 WBC RBC Hgb Hct MCV MCH MCHC RDW Plt Count MPV Absolute Neuts (auto) Neutrophils % Neutrophils % (Manual) Band Neutrophils % Lymphocytes % Lymphocytes % (Manual) Monocytes % Monocytes % (Manual) Eosinophils % Eosinophils % (Manual) Basophils % Basophils % (Manual) Myelocytes % (Man) Promyelocytes % (Man) Blast Cells % (Manual) Nucleated RBC % Metamyelocytes Hypochromia Platelet Estimate Polychromasia Poikilocytosis Anisocytosis Microcytosis Macrocytosis Tear Drop Cells Ovalocytes [place] Cells Schistocytes Sodium Potassium Chloride Carbon Dioxide Anion Gap BUN Creatinine Est GFR (CKD-EPI)AfAm Est GFR (CKD-EPI)NonAf POC Glucometer 175 Random Glucose Lactic Acid Calcium Phosphorus Magnesium Total Bilirubin AST ALT Alkaline Phosphatase Creatine Kinase Creatine Kinase Index CK-MB (CK-2) Troponin I Total Protein Albumin Active Medications Generic Name Dose Route Start Last Admin Trade Name Freq PRN Reason Stop Dose Admin Acetaminophen 650 mg 07/20/19 19:02 Tylenol - PO Q6H PRN PAIN LEVEL 6-10 Albuterol/Ipratropium 1 amp 07/20/19 20:00 07/21/19 17:03 Duoneb - NEB 1 amp RQID DINESH Administration Chlorhexidine Gluconate 1 applic 07/20/19 22:00 07/20/19 21:06 Hibiclens For Decolonization - TP 1 applic HS DINESH Administration Heparin Sodium (Porcine) 5,000 unit 07/20/19 22:00 07/21/19 10:05 Heparin - SQ 5,000 unit BID DINESH Administration Hydrocortisone Sodium Succinate 100 mg 07/21/19 12:00 07/21/19 12:10 Solu-Cortef - IVPUSH 100 mg Q8H-IV DINESH Administration Norepinephrine Bitartrate 8, 500 mls @ 18.75 mls/hr 07/20/19 17:45 07/21/19 10:14 000 mcg/ Dextrose IV 8 mcg/min TITR DINESH 30 mls/hr Titration Protocol 5 MCG/MIN Dextrose/Sodium Chloride 1,000 mls @ 100 mls/hr 07/20/19 19:15 07/21/19 10:00 D5-1/2ns - IV 100 mls/hr ASDIR DINESH Administration Piperacillin Sod/Tazobactam 50 mls @ 100 mls/hr 07/21/19 18:00 Sod 2.25 gm/ Dextrose IVPB Q8H-IV DINESH Protocol Insulin Aspart 1 vial 07/20/19 19:15 07/21/19 12:03 Novolog Vial Sliding Scale - SQ 2 units Q6HPO DINESH Administration Protocol Mupirocin 1 applic 07/20/19 22:00 07/21/19 10:08 Bactroban Ointment (For Decolonization) - NS 07/25/19 21:59 1 applic BID DINESH Administration Pantoprazole Sodium 40 mg 07/20/19 19:15 07/21/19 10:05 Protonix Iv IVPUSH 40 mg DAILY DINESH Administration ASSESSMENT/PLAN: 84M w/ pmh of HTN, HLD, GERD, hearing deficits(worse in Right ear), ?dementia, COPD(home O2, chronic prednisone), PPM(implanted 2014), CAD(1997), HFrEF(global hypokinesis, May 2018). CT A/P showing possible diverticulitis of cecum and sigmoid, Right kidney staghorn calculus, Right inginal hernia. # Septic Shock --2/2 to likely diverticulitis of cecum and sigmoid > initial T 102.3 > initial BP 61/41 --MAP >65 > lactic acid 7.4->2.3->1.8 > CT A/P: diverticuli + fat stranding of cecum and sigmoid, ascites - s/p LR x1L, NS x2L - s/p Left IJ TC - pressors: levophd gtt - stres-dose steroids: Solu-Cortef 100mg q8h - IVF - empiric Zosyn+Vancomycin # acute on chronic abdominal pain --possibly hernial pain vs diverticulitis > FOBT neg > CT A/P --possible diverticulitis # unwitnessed fall --possible mechanical vs syncope # r/o rhabdomylsis > CT H --neg > CPK 3571 - PT when stable # h/o CAD(1997) # troponinemia --possibly 2/2 to LAURA/CKD > Trop 0.06, 0.13, 0.15, 0.16, 0.14 > ECG - Ventricular paced rhythm with no St/T wave abnormalities. > CXR - Cardiomegaly, no pulmonary vascular congestion # LAURA vs CKD --possibly 2/2 sepsis/shock > Cr ~ 3.9, 3.7, baseline Cr ~2.0 > CT A/P: right kidney staghorn calculi - Consult Nephro: --fu renal U/S --monitor CPK --avoid nephrotoxins # Respiratory needs 2/2 COPD (on home O2, chronically on steroids) > CT chest: mod-severe COPD w/ Right basilar consolidation/ateletasis and trace pleural effusion - duonebs - cw stress-dose steroids # NIDDM(reported to be not a diabetic) - BGM + ISS q6h # chronic HLD - hold Statin until r/o rhabdo # chronic HTN - holding anti-hypertensive medications until resolution of shock # Chronic HFrEF > Echo(May 2018): global hypokinesis - hold home BB, MONE-I, Torsemide until resolution of acute issues # Hyperkalemia --resolving > K ~5.2 -->4.2 - fu lytes FEN - D5NS @100 - replete lytes PRN DVT Px - Heparin SQ. Visit type - Emergency Visit Emergency Visit: No - New Patient This patient is new to me today: No - Critical Care Critical Care patient: No ATTENDING PHYSICIAN STATEMENT I saw and evaluated the patient. I reviewed the resident's note and discussed the case with the resident. I agree with the resident's findings and plan as documented. SUBJECTIVE: OBJECTIVE: ASSESSMENT AND PLAN:
[2019-07-21] MEDS ORDERED: PIPERACILLIN/TAZOBACTAM 2.25 GM VIAL IVPB ONE (18:08)
[2019-07-21] MEDS: PIPERACILLIN/TAZOB 2.25 GM 2.25 GM in DEXTROSE 5%-WATER - 50 ML IVPB SCH (18:22)
[2019-07-21 19:56] LABS: ARTERIAL BLD GAS O2 SATURATION 96.9 % (95-98); ARTERIAL BLOOD GAS BASE EXCESS -8.1 meq/l (-2-2); ARTERIAL BLOOD GAS PCO2 22.7 mmHg (35-45); ARTERIAL BLOOD GAS pH 7.42 (7.35-7.45)
[2019-07-21 19:57] LABS: ALLENS TEST POSITIVE
[2019-07-21] MEDS: CHLORHEXIDINE GLUCONATE 4% CLEANSER FOR DECOLONIZATION TP SCH (21:47)
[2019-07-22] MEDS ORDERED: PIPERACILLIN/TAZOBACTAM 2.25 GM VIAL IVPB ONE ×3 (01:04→17:12)
[2019-07-22] MEDS ORDERED: DEXTROSE 5%-WATER - 50 ML IVPB ONE ×3 (01:04→17:12)
[2019-07-22] MEDS: PIPERACILLIN/TAZOB 2.25 GM 2.25 GM in DEXTROSE 5%-WATER - 50 ML IVPB SCH ×3 (01:16→17:24)
[2019-07-22] MEDS: HYDROCORTISONE SOD SUCCINATE 100 MG/2 ML VIAL IVPUSH SCH ×4 (01:16→21:12)
[2019-07-22] MEDS: NOREPINEPHRINE BITARTRATE 8,000 MCG in DEXTROSE 5%-WATER - 492 ML IV SCH (02:25)
[2019-07-22 05:49] LABS: ARTERIAL BLOOD GAS PCO2 23.6 mmHg (35-45); ARTERIAL BLOOD GAS PO2 85.8 mmHg (80-100)
[2019-07-22 05:50] LABS: ARTERIAL BLD GAS O2 SATURATION 95.6 % (95-98); ARTERIAL BLOOD GAS BASE EXCESS -9.2 meq/l (-2-2)
[2019-07-22 05:52] LABS: ALLENS TEST POSITIVE
[2019-07-22 06:31] LABS: BASO % 0.5 % (0-2.0); HEMATOCRIT 25.6 % (35.4-49); HEMOGLOBIN 8.7 GM/dL (11.7-16.9); LYMPH % 1.8 % (8-40); MCH 27.5 pg (25.7-33.7); MCHC 33.9 g/dl (32.0-35.9); MONO % 3.5 % (3.8-10.2); NEUT % 94.2 % (42.8-82.8); PLATELET COUNT 172 K/MM3 (134-434); RBC 3.16 M/mm3 (4.00-5.60); RDW 18.2 % (11.9-15.9); WHITE BLOOD COUNT 10.8 K/mm3 (4.0-10.0)
[2019-07-22] MEDS: INSULIN SLIDING SCALE (NOVOLOG) 1 VIAL SQ SCH ×4 (06:38→23:24)
[2019-07-22 06:59] LABS: ALBUMIN 1.8 g/dl (3.4-5.0); BILIRUBIN,TOTAL 0.6 mg/dL (0.2-1); BLOOD UREA NITROGEN 66.7 mg/dL (7-18); CREATININE 4.1 mg/dL (0.55-1.3); MAGNESIUM 1.9 mg/dL (1.8-2.4); PHOSPHOROUS 4.4 mg/dL (2.5-4.9); POTASSIUM 3.9 mmol/L (3.5-5.1); TOT PROT 5.2 g/dl (6.4-8.2)
[2019-07-22 07:00] LABS: CALCIUM 6.9 mg/dL (8.5-10.1)
[2019-07-22] MEDS: ALBUTEROL SO4 2.5/IPRATROPIUM 0.5 INH SOL 3 ML VIAL.NEB. NEB SCH ×4 (07:50→20:36)
--- NOTE | 2019-07-22 07:51 | PN ---
Physical Exam: SUBJECTIVE: Patient seen and examined by the bedside, alert but not responding to commands, wearing Venti mask and tachypnic. OBJECTIVE: Vital Signs Period Temp Pulse Resp BP Sys/Mata Pulse Ox Last 24 Hr 98.1 F-99.4 F 69-106 18-36 101-134/55-83 96-100 GENERAL: The patient is awake, alert, not responding to instructions. HEAD: Normal with no signs of trauma. LUNGS: Reduced breath sounds B/L. Tachypnic but no accessory muscle use HEART: RRR, NSR ABDOMEN: Soft, non tender, no guarding, no rebound, no hepatosplenomegaly, no masses. EXTREMITIES: warm, well-perfused, no edema or rash noted. Overgrown yellow nails NEUROLOGICAL: Alert, not oriented Laboratory Results - last 24 hr 07/21/19 07/21/19 07/21/19 05:50 11:59 18:19 WBC 10.8 H RBC 3.44 L Hgb 9.4 L Hct 28.6 L D MCV 83.1 MCH 27.3 MCHC 32.9 RDW 18.0 H Plt Count 183 MPV 9.1 Absolute Neuts (auto) 10.4 H Neutrophils % 96.1 H Neutrophils % (Manual) 70.0 Band Neutrophils % 21.0 Lymphocytes % 1.8 L D Lymphocytes % (Manual) 2.0 L D Monocytes % 2.0 L Monocytes % (Manual) 4 D Eosinophils % 0.0 Eosinophils % (Manual) 0.0 Basophils % 0.1 Basophils % (Manual) 0.0 Myelocytes % (Man) 0 Promyelocytes % (Man) 0 Blast Cells % (Manual) 0 Nucleated RBC % 0 Metamyelocytes 2 D Hypochromia 0 Platelet Estimate Normal Polychromasia 1+ Poikilocytosis 1+ Anisocytosis 1+ Microcytosis 0 Macrocytosis 0 [place] Cells 1+ Anticoagulation Therapy Puncture Site ABG pH ABG pCO2 at Pt Temp ABG pO2 at Pt Temp ABG HCO3 ABG O2 Sat (Measured) ABG O2 Content ABG Base Excess Arnoldo Test O2 Delivery Device Oxygen Flow Rate Vent Mode Vent Rate Mechanical Rate Pressure Support Vent Sodium Potassium Chloride Carbon Dioxide Anion Gap BUN Creatinine Est GFR (CKD-EPI)AfAm Est GFR (CKD-EPI)NonAf POC Glucometer 175 148 Random Glucose Calcium Phosphorus Magnesium Total Bilirubin AST ALT Alkaline Phosphatase Total Protein Albumin 07/21/19 07/21/19 07/22/19 19:40 23:02 05:00 WBC RBC Hgb Hct MCV MCH MCHC RDW Plt Count MPV Absolute Neuts (auto) Neutrophils % Neutrophils % (Manual) Band Neutrophils % Lymphocytes % Lymphocytes % (Manual) Monocytes % Monocytes % (Manual) Eosinophils % Eosinophils % (Manual) Basophils % Basophils % (Manual) Myelocytes % (Man) Promyelocytes % (Man) Blast Cells % (Manual) Nucleated RBC % Metamyelocytes Hypochromia Platelet Estimate Polychromasia Poikilocytosis Anisocytosis Microcytosis Macrocytosis Baljit Cells Anticoagulation Therapy No Result Required. No Result Required. Puncture Site Right radial Right radial ABG pH 7.42 7.40 ABG pCO2 at Pt Temp 22.7 L 23.6 L ABG pO2 at Pt Temp 96.0 85.8 ABG HCO3 14.5 L 14.2 L ABG O2 Sat (Measured) 96.9 95.6 ABG O2 Content 16.5 11.7 ABG Base Excess -8.1 L -9.2 L Arnoldo Test Positive Positive O2 Delivery Device No Result Required. Bipap Oxygen Flow Rate Yes 40% Vent Mode No Result Required. No Result Required. Vent Rate No Result Required. 16 Mechanical Rate No Result Required. No Result Required. Pressure Support Vent No Result Required. 14/5 Sodium Potassium Chloride Carbon Dioxide Anion Gap BUN Creatinine Est GFR (CKD-EPI)AfAm Est GFR (CKD-EPI)NonAf POC Glucometer 130 Random Glucose Calcium Phosphorus Magnesium Total Bilirubin AST ALT Alkaline Phosphatase Total Protein Albumin 07/22/19 07/22/19 07/22/19 05:32 05:32 05:40 WBC 10.8 H RBC 3.16 L Hgb 8.7 L Hct 25.6 L MCV 81.0 MCH 27.5 MCHC 33.9 RDW 18.2 H Plt Count 172 MPV 9.0 Absolute Neuts (auto) 10.2 H Neutrophils % 94.2 H Neutrophils % (Manual) Band Neutrophils % Lymphocytes % 1.8 L Lymphocytes % (Manual) Monocytes % 3.5 L Monocytes % (Manual) Eosinophils % 0.0 Eosinophils % (Manual) Basophils % 0.5 D Basophils % (Manual) Myelocytes % (Man) Promyelocytes % (Man) Blast Cells % (Manual) Nucleated RBC % 0 Metamyelocytes Hypochromia Platelet Estimate Polychromasia Poikilocytosis Anisocytosis Microcytosis Macrocytosis Baljit Cells Anticoagulation Therapy Puncture Site ABG pH ABG pCO2 at Pt Temp ABG pO2 at Pt Temp ABG HCO3 ABG O2 Sat (Measured) ABG O2 Content ABG Base Excess Arnoldo Test O2 Delivery Device Oxygen Flow Rate Vent Mode Vent Rate Mechanical Rate Pressure Support Vent Sodium 135 L Potassium 3.9 Chloride 105 Carbon Dioxide 17 L Anion Gap 13 BUN 66.7 H Creatinine 4.1 H Est GFR (CKD-EPI)AfAm 14.38 Est GFR (CKD-EPI)NonAf 12.41 POC Glucometer 128 Random Glucose 121 H Calcium 6.9 L* Phosphorus 4.4 Magnesium 1.9 Total Bilirubin 0.6 AST 78 H ALT 35 Alkaline Phosphatase 46 Total Protein 5.2 L Albumin 1.8 L Active Medications Generic Name Dose Route Start Last Admin Trade Name Freq PRN Reason Stop Dose Admin Acetaminophen 650 mg 07/20/19 19:02 Tylenol - PO Q6H PRN PAIN LEVEL 6-10 Albuterol/Ipratropium 1 amp 07/20/19 20:00 07/21/19 19:59 Duoneb - NEB 1 amp RQID DINESH Administration Chlorhexidine Gluconate 1 applic 07/20/19 22:00 07/21/19 21:47 Hibiclens For Decolonization - TP 1 applic HS DINESH Administration Heparin Sodium (Porcine) 5,000 unit 07/20/19 22:00 07/21/19 21:47 Heparin - SQ 5,000 unit BID DINESH Administration Hydrocortisone Sodium Succinate 100 mg 07/21/19 12:00 07/22/19 01:16 Solu-Cortef - IVPUSH 100 mg Q8H-IV DINESH Administration Norepinephrine Bitartrate 8, 500 mls @ 18.75 mls/hr 07/20/19 17:45 07/22/19 02:25 000 mcg/ Dextrose IV 5 mcg/min TITR DINESH 18.75 mls/hr Administration Protocol 5 MCG/MIN Dextrose/Sodium Chloride 1,000 mls @ 100 mls/hr 07/20/19 19:15 07/21/19 21:47 D5-1/2ns - IV Not Given ASDIR DINESH Piperacillin Sod/Tazobactam 50 mls @ 100 mls/hr 07/21/19 18:00 07/22/19 01:16 Sod 2.25 gm/ Dextrose IVPB 100 mls/hr Q8H-IV DINESH Administration Protocol Insulin Aspart 1 vial 07/20/19 19:15 07/22/19 06:38 Novolog Vial Sliding Scale - SQ Not Given Q6HPO DINESH Protocol Mupirocin 1 applic 07/20/19 22:00 07/21/19 21:47 Bactroban Ointment (For Decolonization) - NS 07/25/19 21:59 1 applic BID DINESH Administration Pantoprazole Sodium 40 mg 07/20/19 19:15 07/21/19 10:05 Protonix Iv IVPUSH 40 mg DAILY DINESH Administration ASSESSMENT/PLAN: 84YO M with PMH of COPD (baseline 2-3L O2), HFrEF, CAD, pacemaker (2014), DM, HLD, HTN GERD, and dementia. He presented to the ER from his NH after being found to be hypotensive 2/2 septic shock with LA of 7.6. Received 2L NS. L IJ CVC placed with Norepi was started. #Cardio - Echo (07/21): EF 30-35%, severe global hypokinesis of L ventricle - Trops 0.16 -> 0.14 downtrending - CVP monitoring, bolus if below goal 8-12 - Norepi 5mcg/HR, MAP goal 65 - L IJ CVC (07/20) for refractory hypotension - Hold HTN meds d/t hypotension #Pulmonary - Increasingly tachypnic overnight - Started on BiPAP, taken off this morning - Currently on Hi Flow 40% O2 - CXR: mild central congestive changes and bibasilar atelectasis/infiltrates - CT chest 07/20 shows severe COPD changes w bulla, RLL consolidation/ atelectasis, trace R pleural fluid - Duonebs, hold spiriva #ID - WBC 5.5 -> 10.8 -> 10.8 - LA 7.4 -> 1.8 - Hydrocortisone 100mg Q8H - Zosyn 07/21 #GI - CT AP (07/20): Extensive diverticulosis of entire colon w inflammation of sigmoid colon, cecum. 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 - New Patient This patient is new to me today: No - Critical Care Critical Care patient: Yes Total Critical Care Time (in minutes): 43 Critical Care Statement: The care of this patient involved high complexity decision making to prevent further life threatening deterioration of the patient 's condition and/or to evaluate & treat vital organ system(s) failure or risk of failure. ATTENDING PHYSICIAN STATEMENT I saw and evaluated the patient. I reviewed the resident's note and discussed the case with the resident. I agree with the resident's findings and plan as documented. SUBJECTIVE: OBJECTIVE: ASSESSMENT AND PLAN:
--- NOTE | 2019-07-22 09:39 | PN ---
Progress Note (short form) - Note Progress Note: RENAL Pt is awake but not very interactive He is oliguric Last Vital Signs Temp Pulse Resp BP Pulse Ox 98.6 F 102 H 28 H 125/65 99 07/22/19 08:00 07/22/19 08:00 07/22/19 08:00 07/22/19 08:00 07/22/19 08:06 lungs clear anteriorly but has crackles at bases latrerally cvs s1s2 rr, pacemaker noted abd soft ext no edema neuro opens eyes, no tremors noted skin no obvious lesion noted CBC, BMP 07/22/19 05:32 07/22/19 05:32 Current Medications Generic Name Dose Route Start Last Admin Trade Name Freq PRN Reason Stop Dose Admin Acetaminophen 650 mg 07/20/19 19:02 Tylenol - PO Q6H PRN PAIN LEVEL 6-10 Albuterol/Ipratropium 1 amp 07/20/19 20:00 07/22/19 07:50 Duoneb - NEB 1 amp RQID DINESH Administration Chlorhexidine Gluconate 1 applic 07/20/19 22:00 07/21/19 21:47 Hibiclens For Decolonization - TP 1 applic HS DINESH Administration Heparin Sodium (Porcine) 5,000 unit 07/20/19 22:00 07/21/19 21:47 Heparin - SQ 5,000 unit BID DINESH Administration Hydrocortisone Sodium Succinate 100 mg 07/21/19 12:00 07/22/19 01:16 Solu-Cortef - IVPUSH 100 mg Q8H-IV DINESH Administration Norepinephrine Bitartrate 8, 500 mls @ 18.75 mls/hr 07/20/19 17:45 07/22/19 02:25 000 mcg/ Dextrose IV 5 mcg/min TITR DINESH 18.75 mls/hr Administration Protocol 5 MCG/MIN Dextrose/Sodium Chloride 1,000 mls @ 100 mls/hr 07/20/19 19:15 07/21/19 21:47 D5-1/2ns - IV Not Given ASDIR DINESH Piperacillin Sod/Tazobactam 50 mls @ 100 mls/hr 07/21/19 18:00 07/22/19 01:16 Sod 2.25 gm/ Dextrose IVPB 100 mls/hr Q8H-IV DINESH Administration Protocol Insulin Aspart 1 vial 07/20/19 19:15 07/22/19 06:38 Novolog Vial Sliding Scale - SQ Not Given Q6HPO [facility] Protocol Mupirocin 1 applic 07/20/19 22:00 07/21/19 21:47 Bactroban Ointment (For Decolonization) - NS 07/25/19 21:59 1 applic BID DINESH Administration Pantoprazole Sodium 40 mg 07/20/19 19:15 07/21/19 10:05 Protonix Iv IVPUSH 40 mg DAILY DINESH Administration Impression 1. LAURA 2. sepsis 3. pna 4. ckd 5. copd 6. dm 7. hx htn 8. dementia 9. rhabdo-mild 10 atrophic right kidney with staghorn calculus Plan - would give fluids and lasix given high cpk - check renal ultrasound - monitor renal function - monitor bp - pressors to map 65 - avoid nephrotoxins - renal dose meds - monitor cpk - no urgent need for hd today, no proof that early dialysis is beneficial - will need to determine goals of care MV
[2019-07-22] MEDS: HEPARIN NA (PORCINE) 5,000 UNITS/ML 1ML VIAL SQ SCH ×2 (09:47→21:13)
[2019-07-22] MEDS: PANTOPRAZOLE SODIUM 40 MG VIAL IVPUSH SCH (09:47)
[2019-07-22] MEDS: MUPIROCIN 2% TOPICAL OINTMENT FOR DECOLONIZATION NS SCH ×2 (09:58→21:18)
[2019-07-22] MEDS ORDERED: predniSONE 10 MG TABLET (UD) PO SCH (10:00)
[2019-07-22] MEDS ORDERED: LACTATED RINGERS SOLUTION 1000 ML INFUS.BAG IV ONE (10:26)
[2019-07-22 10:57] LABS: ANISOCYTOSIS 1+; MACROCYTOSIS 0; PLATELET ESTIMATE NORMAL
--- NOTE | 2019-07-22 11:13 | PN ---
Teaching Attending Note Name of Resident: Francis Rosa ATTENDING PHYSICIAN STATEMENT I saw and evaluated the patient. I reviewed the resident's note and discussed the case with the resident. I agree with the resident's findings and plan as documented. SUBJECTIVE: Patient seen and examined in the ICU. Remains on levophed drip @ 5 mcq for hemodynamic support. Awake and responsive. Increased WOB noted on VM O2. OBJECTIVE: Intake & Output 07/19/19 07/20/19 07/21/19 07/22/19 23:59 23:59 23:59 23:59 Intake Total 4075 316 Output Total 10 510 400 Balance -10 3565 -84 Weight 154 lb 4.8 oz 154 lb 4.8 oz 162 lb 3.2 oz Last Vital Signs Temp Pulse Resp BP Pulse Ox 98.9 F 98 H 19 122/66 100 07/22/19 10:00 07/22/19 10:05 07/22/19 10:00 07/22/19 10:00 07/22/19 10:05 Active Medications Acetaminophen (Tylenol -) 650 mg PO Q6H PRN PRN Reason: PAIN LEVEL 6-10 Albuterol/Ipratropium (Duoneb -) 1 amp NEB RQID DINESH Last Admin: 07/22/19 07:50 Dose: 1 amp Chlorhexidine Gluconate (Hibiclens For Decolonization -) 1 applic TP HS DNIESH Last Admin: 07/21/19 21:47 Dose: 1 applic Heparin Sodium (Porcine) (Heparin -) 5,000 unit SQ BID DINESH Last Admin: 07/22/19 09:47 Dose: 5,000 unit Hydrocortisone Sodium Succinate (Solu-Cortef -) 100 mg IVPUSH Q8H-IV DINESH Last Admin: 07/22/19 09:47 Dose: 100 mg Norepinephrine Bitartrate 8, (000 mcg/ Dextrose) 500 mls @ 18.75 mls/hr IV TITR DINESH; Protocol Last Admin: 07/22/19 02:25 Dose: 5 mcg/min, 18.75 mls/hr Dextrose/Sodium Chloride (D5-1/2ns -) 1,000 mls @ 100 mls/hr IV ASDIR DINESH Last Admin: 07/21/19 21:47 Dose: Not Given Piperacillin Sod/Tazobactam (Sod 2.25 gm/ Dextrose) 50 mls @ 100 mls/hr IVPB Q8H-IV DINESH; Protocol Last Admin: 07/22/19 09:47 Dose: 100 mls/hr Insulin Aspart (Novolog Vial Sliding Scale -) 1 vial SQ Q6HPO DINESH; Protocol Last Admin: 07/22/19 06:38 Dose: Not Given Mupirocin (Bactroban Ointment (For Decolonization) -) 1 applic NS BID DINESH Stop: 07/25/19 21:59 Last Admin: 07/22/19 09:58 Dose: 1 applic Pantoprazole Sodium (Protonix Iv) 40 mg IVPUSH DAILY DINESH Last Admin: 07/22/19 09:47 Dose: 40 mg Gen: Awake, tachypneic Heart: RRR Lung: decreased breath sounds at the bases, bilateral scattered rhonchi, no wheeze Abd: soft, mild TTP, (+) BS, no rebound Ext: no edema Laboratory Results - last 24 hr 07/21/19 07/21/19 07/21/19 05:50 11:59 18:19 WBC RBC Hgb Hct MCV MCH MCHC RDW Plt Count MPV Absolute Neuts (auto) Neutrophils % Neutrophils % (Manual) 70.0 Band Neutrophils % 21.0 Lymphocytes % Lymphocytes % (Manual) 2.0 L D Monocytes % Monocytes % (Manual) 4 D Eosinophils % Eosinophils % (Manual) 0.0 Basophils % Basophils % (Manual) 0.0 Myelocytes % (Man) 0 Promyelocytes % (Man) 0 Blast Cells % (Manual) 0 Nucleated RBC % Metamyelocytes 2 D Hypochromia 0 Platelet Estimate Normal Polychromasia 1+ Poikilocytosis 1+ Anisocytosis 1+ Microcytosis 0 Macrocytosis 0 Baljit Cells 1+ Anticoagulation Therapy Puncture Site ABG pH ABG pCO2 at Pt Temp ABG pO2 at Pt Temp ABG HCO3 ABG O2 Sat (Measured) ABG O2 Content ABG Base Excess Arnoldo Test O2 Delivery Device Oxygen Flow Rate Vent Mode Vent Rate Mechanical Rate Pressure Support Vent Sodium Potassium Chloride Carbon Dioxide Anion Gap BUN Creatinine Est GFR (CKD-EPI)AfAm Est GFR (CKD-EPI)NonAf POC Glucometer 175 148 Random Glucose Calcium Phosphorus Magnesium Total Bilirubin AST ALT Alkaline Phosphatase Total Protein Albumin 07/21/19 07/21/19 07/22/19 19:40 23:02 05:00 WBC RBC Hgb Hct MCV MCH MCHC RDW Plt Count MPV Absolute Neuts (auto) Neutrophils % Neutrophils % (Manual) Band Neutrophils % Lymphocytes % Lymphocytes % (Manual) Monocytes % Monocytes % (Manual) Eosinophils % Eosinophils % (Manual) Basophils % Basophils % (Manual) Myelocytes % (Man) Promyelocytes % (Man) Blast Cells % (Manual) Nucleated RBC % Metamyelocytes Hypochromia Platelet Estimate Polychromasia Poikilocytosis Anisocytosis Microcytosis Macrocytosis [place] Cells Anticoagulation Therapy No Result Required. No Result Required. Puncture Site Right radial Right radial ABG pH 7.42 7.40 ABG pCO2 at Pt Temp 22.7 L 23.6 L ABG pO2 at Pt Temp 96.0 85.8 ABG HCO3 14.5 L 14.2 L ABG O2 Sat (Measured) 96.9 95.6 ABG O2 Content 16.5 11.7 ABG Base Excess -8.1 L -9.2 L Arnoldo Test Positive Positive O2 Delivery Device No Result Required. Bipap Oxygen Flow Rate Yes 40% Vent Mode No Result Required. No Result Required. Vent Rate No Result Required. 16 Mechanical Rate No Result Required. No Result Required. Pressure Support Vent No Result Required. 14/5 Sodium Potassium Chloride Carbon Dioxide Anion Gap BUN Creatinine Est GFR (CKD-EPI)AfAm Est GFR (CKD-EPI)NonAf POC Glucometer 130 Random Glucose Calcium Phosphorus Magnesium Total Bilirubin AST ALT Alkaline Phosphatase Total Protein Albumin 07/22/19 07/22/19 07/22/19 05:32 05:32 05:40 WBC 10.8 H RBC 3.16 L Hgb 8.7 L Hct 25.6 L MCV 81.0 MCH 27.5 MCHC 33.9 RDW 18.2 H Plt Count 172 MPV 9.0 Absolute Neuts (auto) 10.2 H Neutrophils % 94.2 H Neutrophils % (Manual) Band Neutrophils % Lymphocytes % 1.8 L Lymphocytes % (Manual) Monocytes % 3.5 L Monocytes % (Manual) Eosinophils % 0.0 Eosinophils % (Manual) Basophils % 0.5 D Basophils % (Manual) Myelocytes % (Man) Promyelocytes % (Man) Blast Cells % (Manual) Nucleated RBC % 0 Metamyelocytes Hypochromia Platelet Estimate Polychromasia Poikilocytosis Anisocytosis Microcytosis Macrocytosis Baljit Cells Anticoagulation Therapy Puncture Site ABG pH ABG pCO2 at Pt Temp ABG pO2 at Pt Temp ABG HCO3 ABG O2 Sat (Measured) ABG O2 Content ABG Base Excess Arnoldo Test O2 Delivery Device Oxygen Flow Rate Vent Mode Vent Rate Mechanical Rate Pressure Support Vent Sodium 135 L Potassium 3.9 Chloride 105 Carbon Dioxide 17 L Anion Gap 13 BUN 66.7 H Creatinine 4.1 H Est GFR (CKD-EPI)AfAm 14.38 Est GFR (CKD-EPI)NonAf 12.41 POC Glucometer 128 Random Glucose 121 H Calcium 6.9 L* Phosphorus 4.4 Magnesium 1.9 Total Bilirubin 0.6 AST 78 H ALT 35 Alkaline Phosphatase 46 Total Protein 5.2 L Albumin 1.8 L ASSESSMENT AND PLAN: Suspected Pneumonia r/o Acute Diverticulitis Septic Shock CAD/+Troponins likely Demand Ischemia Lactic Acidosis Acute on Chronic Renal Failure COPD Chronic Hypoxic Respiratory Failure LV Systolic Dysfunction HTN DM Dementia - ABX per ID - check CVP - IVF boluses to keep CVP 8-12 - Titrate pressors to maintain MAP >65 - Monitor urine output, creatinine - O2 to keep SpO2 >90% - Stress dose steroids as pt on chronic steroids - Inhaled bronchodilators - DVT/GI prophylaxis - Requires continued ICU monitoring Dr Masters Critical care time spent in reviewing chart, evaluating patient and formulating plan 35 min
--- NOTE | 2019-07-22 13:56 | CONSULT ---
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) Cardiovascular: Yes: CAD, CHF, HTN, Hyperlipdemia, Other (Right external carotid artery stenosis, tachycardia PPM) Pulmonary: Yes: COPD, O2 Dependent, Other (pulmonary nodules h/o invasive Aspergillosis) Gastrointestinal: Yes: Diverticulitis (as per today's CT), Diverticulosis, GERD , Other (left inguinal hernia, duodinitis, colon polyps) Renal/: Yes: Renal Inusuff, BPH, Hematuria, Other (bladder dysfunction) Heme/Onc: Yes: B12 Deficiency Infectious Disease: Yes: Other (h/o invasive pulmonary aspergillosis) Musculoskeletal: Yes: Chronic low back pain, Osteoarthritis, Other (dupuytren contracture) ENT: Yes: Other (SAUK-SUIATTLE) Endocrine: Yes: Diabetes Mellitus - Past Surgical History Past Surgical History: Yes: Cholecystectomy (open), Permanent Pacemaker - Smoking History Smoking history: Unknown if ever smoked Have you smoked in the past 12 months: No If you are a former smoker, when did you quit?: 20 YRS AGO - Alcohol/Substance Use Hx Alcohol Use: No History of Substance Use: reports: None - Social History ADL: Family Assistance Occupation: , 4 children History of Recent Travel: No History - Admission Reason For Visit: SEPTIC SHOCK - Hearing Hearing: Impaired Hearing Aide: No Speech Evaluation - Communication Primary Language: LAO Communication: Yes: Simple Responses (no verbal communication observed execpt stating his full name.), Hearing Deficit Oral Expression Ability: Yes: Moderate Impairment - Speech Production Apraxia: Yes Able to Make Needs Known: Yes: Severely Impaired (secondary to [place] status) Intelligibility: Yes: Mildly Impaired - Speech Characteristics Rate of Speech: Too Slow Voice Comment: very limited voice sample. 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 unable to evaluate speech and voice - Language/Auditory Comprehension Follows: Yes: 1 Stage Simple Commands (with gestures) Observation: Able to respond to yes/no queries: No (with head gestures ), Yes/ No Confusion: No (with head gestures), Comprehends Conversational Speech: No, Benefits from Slow Speech: Yes, Benefits from Repetiton: Yes, Benefits from Increased Volume of Speech: Yes - Language/Verbal Expression Able to Respond to Simple Queries: Yes: Mildly Impaired Able to Communicate Wants and Needs: Yes: Moderately Impaired Functional Communication Status: Yes: Moderately Impaired Aware of Errors: No Attempts to Correct Errors: No Use of Gestures: No Written Expression: Not examine Oral Expression: very limited sample Reading Comprehension: Not examine Calculations: Not examine Attention: Yes: Mild Impairment - Memory/Perception shelter Memory: Yes: Moderately Impaired Short Term Memory: Yes: Moderately Impaired - Swallow Evaluation/Bedside Assessment Current Nutritional Intake: NPO Oral Secretions: Yes: Halitosis, Tongue Coated Tracheostomy Present: No Patient on Ventilator: Yes Dentition: Yes: Edentulous, Missing Teeth (top incisors) Facial Comment: 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 unable to formally evaluate oral motor abilities Jaw Position: Closed at Rest Against Resistance Opening: Normal Against Resistance Closing: Normal Pucker Lips: Normal (used a straw with liquids.) Lips, Comment: 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 unable to formally evaluate oral motor abilities Lingual Movement: Normal Lingual Movement Strgth Against Opposition: Reduced Lingual Movement Characteristics: Normal Lingual Comment: 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 unable to formally evaluate oral motor abilities Soft Palate Description: Normal Color Hard Palate Description: Normal Color Gag Reflex: Strong Bite Reflex: Present Velopharyngeal Movement: Normal Laryngeal Elevation: WFL Laryngeal Movement: Able to Palpate, Labored,delay initiation Needs Assistance: Yes Rate of Intake: WFL Bolus Size: WFL Labial Seal: WFL Chewing: Impaired Oral Prep Time: Increased A-P Transit: WFL Timing of Swallow: Delayed (2-3 seconds) Odynophagia: Pharyngeal Coughing/Throat Clear: Yes (subtle cough after several boluses) Change in Voice: No Other Findings/Remarks: 84 yo male seen at bedside for swallow evla to r/o dysphagia. Pt is minimally verbal, A7Ox1 somewhat cooperative with gestures. Pt presents as SA[place] dementia CAD, diverticulitis, CAD, HTN, Admitted for PNA with n/c in place with 93% SpO2. Limited speech sample. Unable to complete formal oral motor examination secondary to reduced mental status and SA[place]-SUI[place]. Current diet: NPO Pt given po trials of pureed only with total assistance revealed good acceptance , increased bolus control and transport time. Pharyngeal swallow was mildly delayed with multiple swallow observed. Subtle cough demonstrated after multiple bolus suggesting possible aspiration. No change in respirations after the swallows. Pt given po trials of thin liquids via straw with total assistance reveals good acceptance, adequate labial containment and transport. Pharyngeal swallow was mildly delayed with multiple swallow observed. Subtle cough demonstrated suggesting possible aspiration. No change in respirations after the swallows. Recommendations - Speech Evaluation, Impression/Plan Impression: 84 yo male presents with mild to moderate dysphagia with oral apraxia with solids. Pt is able to consume purees with thicken liquids but does demonstrate some s/s of aspiration (secretion management vs. bolus swallow not determined). Limited speech smaple. Adequate gag reflex and airway protection observed. 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 at a time, Elevate HOB during feed, OOB for meals, OOB for 1 h. after meals, Other (Monitor pulmonary status and nutritional intake) Dysphagia Evaluation Summary: RE: Trial purees with nectar thicken liquids via cup or straw. Offer total assistance during meals. Standard aspriation precautions. Oral care completed before and after meals. Crush meds in applesauce. Results given verbally to charge coordinator and to PCP via chart. 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 to follow up for diet tolerance and possible MBS (if warranted) - Recommendations Diet Consistency: Dysphagia Pureed Medication Administration: Crushed with applesauce Liquids: [place] Thick
--- NOTE | 2019-07-22 15:00 | PN ---
Teaching Attending Note Name of Resident: Ross Thibodeaux ATTENDING PHYSICIAN STATEMENT I saw and evaluated the patient. I reviewed the resident's note and discussed the case with the resident. I agree with the resident's findings and plan as documented. SUBJECTIVE: More awake, but still unable to recount history. Denies CP/ palpitations/SOB/cough/abdominal pain. No fever/chills. OBJECTIVE: Fever resolved Tmax 99, hemodynamicaly Stable. SpO2 95% on 35% HF Last Vital Signs Temp Pulse Resp BP Pulse Ox 99.2 F 81 28 H 126/57 L 95 07/22/19 14:00 07/22/19 14:00 07/22/19 14:00 07/22/19 14:00 07/22/19 11:00 HEENT - Atraumatic, Normocephalic. Pale+ Heart - S1, S2, RRR, PPM in situ Lungs - few basal crackles. Abdomen - Soft, some scaring associated with prior open cholecystectomy incision with underlying RUQ tenderness along with LLQ tenderness (mildly improved). Bowel Sounds normal. Extremities - no edema, no calf tenderness. Neuro - Hearing Impaired. AAO x 3. Moving all 4 extremities. Laboratory Results - last 24 hr 07/21/19 07/21/19 07/21/19 18:19 19:40 23:02 WBC RBC Hgb Hct MCV MCH MCHC RDW Plt Count MPV Absolute Neuts (auto) Neutrophils % Neutrophils % (Manual) Band Neutrophils % Lymphocytes % Lymphocytes % (Manual) Monocytes % Monocytes % (Manual) Eosinophils % Eosinophils % (Manual) Basophils % Basophils % (Manual) Myelocytes % (Man) Promyelocytes % (Man) Blast Cells % (Manual) Nucleated RBC % Metamyelocytes Hypochromia Platelet Estimate Platelet Comment Polychromasia Poikilocytosis Anisocytosis Microcytosis Macrocytosis Spherocytes [place] Cells Acanthocytes (Spur) Anticoagulation Therapy No Result Required. Puncture Site Right radial ABG pH 7.42 ABG pCO2 at Pt Temp 22.7 L ABG pO2 at Pt Temp 96.0 ABG HCO3 14.5 L ABG O2 Sat (Measured) 96.9 ABG O2 Content 16.5 ABG Base Excess -8.1 L Arnoldo Test Positive O2 Delivery Device No Result Required. Oxygen Flow Rate Yes Vent Mode No Result Required. Vent Rate No Result Required. Mechanical Rate No Result Required. Pressure Support Vent No Result Required. Sodium Potassium Chloride Carbon Dioxide Anion Gap BUN Creatinine Est GFR (CKD-EPI)AfAm Est GFR (CKD-EPI)NonAf POC Glucometer 148 130 Random Glucose Calcium Phosphorus Magnesium Total Bilirubin AST ALT Alkaline Phosphatase Total Protein Albumin 07/22/19 07/22/19 07/22/19 05:00 05:32 05:32 WBC 10.8 H RBC 3.16 L Hgb 8.7 L Hct 25.6 L MCV 81.0 MCH 27.5 MCHC 33.9 RDW 18.2 H Plt Count 172 MPV 9.0 Absolute Neuts (auto) 10.2 H Neutrophils % 94.2 H Neutrophils % (Manual) 80.0 Band Neutrophils % 16.0 Lymphocytes % 1.8 L Lymphocytes % (Manual) 2.0 L Monocytes % 3.5 L Monocytes % (Manual) 1 L Eosinophils % 0.0 Eosinophils % (Manual) 0.0 Basophils % 0.5 D Basophils % (Manual) 0.0 Myelocytes % (Man) 0 Promyelocytes % (Man) 0 Blast Cells % (Manual) 0 Nucleated RBC % 0 Metamyelocytes 1 D Hypochromia 0 Platelet Estimate Normal Platelet Comment Present Polychromasia 1+ Poikilocytosis 2+ Anisocytosis 1+ Microcytosis 1+ Macrocytosis 0 Spherocytes 1+ [place] Cells 2+ Acanthocytes (Spur) 1+ Anticoagulation Therapy No Result Required. Puncture Site Right radial ABG pH 7.40 ABG pCO2 at Pt Temp 23.6 L ABG pO2 at Pt Temp 85.8 ABG HCO3 14.2 L ABG O2 Sat (Measured) 95.6 ABG O2 Content 11.7 ABG Base Excess -9.2 L Arnoldo Test Positive O2 Delivery Device Bipap Oxygen Flow Rate 40% Vent Mode No Result Required. Vent Rate 16 Mechanical Rate No Result Required. Pressure Support Vent 14/5 Sodium 135 L Potassium 3.9 Chloride 105 Carbon Dioxide 17 L Anion Gap 13 BUN 66.7 H Creatinine 4.1 H Est GFR (CKD-EPI)AfAm 14.38 Est GFR (CKD-EPI)NonAf 12.41 POC Glucometer Random Glucose 121 H Calcium 6.9 L* Phosphorus 4.4 Magnesium 1.9 Total Bilirubin 0.6 AST 78 H ALT 35 Alkaline Phosphatase 46 Total Protein 5.2 L Albumin 1.8 L 07/22/19 07/22/19 05:40 11:40 WBC RBC Hgb Hct MCV MCH MCHC RDW Plt Count MPV Absolute Neuts (auto) Neutrophils % Neutrophils % (Manual) Band Neutrophils % Lymphocytes % Lymphocytes % (Manual) Monocytes % Monocytes % (Manual) Eosinophils % Eosinophils % (Manual) Basophils % Basophils % (Manual) Myelocytes % (Man) Promyelocytes % (Man) Blast Cells % (Manual) Nucleated RBC % Metamyelocytes Hypochromia Platelet Estimate Platelet Comment Polychromasia Poikilocytosis Anisocytosis Microcytosis Macrocytosis Spherocytes Baljit Cells Acanthocytes (Spur) Anticoagulation Therapy Puncture Site ABG pH ABG pCO2 at Pt Temp ABG pO2 at Pt Temp ABG HCO3 ABG O2 Sat (Measured) ABG O2 Content ABG Base Excess Arnoldo Test O2 Delivery Device Oxygen Flow Rate Vent Mode Vent Rate Mechanical Rate Pressure Support Vent Sodium Potassium Chloride Carbon Dioxide Anion Gap BUN Creatinine Est GFR (CKD-EPI)AfAm Est GFR (CKD-EPI)NonAf POC Glucometer 128 123 Random Glucose Calcium Phosphorus Magnesium Total Bilirubin AST ALT Alkaline Phosphatase Total Protein Albumin Current Medications Generic Name Dose Route Start Last Admin Trade Name Freq PRN Reason Stop Dose Admin Acetaminophen 650 mg 07/20/19 19:02 Tylenol - PO Q6H PRN PAIN LEVEL 6-10 Albuterol/Ipratropium 1 amp 07/20/19 20:00 07/22/19 11:38 Duoneb - NEB 1 amp RQID DINESH Administration Chlorhexidine Gluconate 1 applic 07/20/19 22:00 07/21/19 21:47 Hibiclens For Decolonization - TP 1 applic HS DINESH Administration Heparin Sodium (Porcine) 5,000 unit 07/20/19 22:00 07/22/19 09:47 Heparin - SQ 5,000 unit BID DINESH Administration Hydrocortisone Sodium Succinate 100 mg 07/21/19 12:00 07/22/19 09:47 Solu-Cortef - IVPUSH 100 mg Q8H-IV DINESH Administration Norepinephrine Bitartrate 8, 500 mls @ 18.75 mls/hr 07/20/19 17:45 07/22/19 02:25 000 mcg/ Dextrose IV 5 mcg/min TITR DINESH 18.75 mls/hr Administration Protocol 5 MCG/MIN Piperacillin Sod/Tazobactam 50 mls @ 100 mls/hr 07/21/19 18:00 07/22/19 09:47 Sod 2.25 gm/ Dextrose IVPB 100 mls/hr Q8H-IV DINESH Administration Protocol Insulin Aspart 1 vial 07/20/19 19:15 07/22/19 12:06 Novolog Vial Sliding Scale - SQ Not Given Q6HPO DINESH Protocol Mupirocin 1 applic 07/20/19 22:00 07/22/19 09:58 Bactroban Ointment (For Decolonization) - NS 07/25/19 21:59 1 applic BID DINESH Administration Pantoprazole Sodium 40 mg 07/20/19 19:15 07/22/19 09:47 Protonix Iv IVPUSH 40 mg DAILY DINESH Administration Home Medications Medication Instructions Recorded Amlodipine Besylate 10 mg PO DAILY 12/19/18 Aspirin Coated [Ecotrin -] 81 mg PO DAILY 12/19/18 Atorvastatin Ca [Lipitor] 20 mg PO HS 12/19/18 Carvedilol [Coreg -] 12.5 mg PO BID 12/19/18 Latanoprost/Pf [Latanoprost 0.005% 7.5 ml OP DAILY 12/19/18 Eye Drop] Losartan Potassium 100 mg PO DAILY 12/19/18 Pantoprazole Sodium 40 mg PO DAILY 12/19/18 Risperidone [Risperdal] 1 mg PO DAILY 12/19/18 Torsemide [Demadex -] 20 mg PO DAILY 12/19/18 predniSONE [Deltasone -] 10 mg PO ASDIR 10 Days #30 tablet 12/24/18 Cholecalciferol (Vitamin D3) 2,000 unit PO DAILY 07/21/19 [Vitamin D] Cyanocobalamin [Vitamin B12 -] 1,000 mcg PO DAILY 07/21/19 ASSESSMENT AND PLAN: 84 year old male with history of CRF sec to COPD (on Home O2), Chronic Systolic CHF, Arrhythmia s/p PPM, Hearing Impaired, CAD, DM 2, HTN, CKD 3/4, HLD, Dementia (normally AAO x 2) 1. Septic Shock secondary to Diverticulitis +/- Pneumonia Fever resolved. Requring Levophed and stress dose steroids. Lactic Acidosis resolved CT A/P - bibasal atelectasis ?consolidation, diverticulosis, possible diverticulitis. IV Zosyn empirically as per ID Continued ICU admission for pressors, monitoring of respiratory status, and worsening LAURA. 2. Syncope, likely secondary to hypotension CT Head - no acute intracranial findings. No CP/palpitations TropI max 0.16, likely sec to demand versus Rhabdomyolysis ECG - Ventricular paced rhythm with no ST/T wave abnormalities. CXR - Cardiomegaly, no pulmonary findings. 3. Acute rhabdomyolysis CPK up to 3571, todays's level pending. Continue gentle IV hydration and monitor. 4. 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 Seen by Nephrology- recommend Renal US and Fluid/Lasix combination. 5. CRF sec to COPD (on home O2, chronically on steroids) - stable, no evidence of acute exacerbation. Started on stress dose steroids. Regular DuoNebs. 6. DM 2 - will maintain on sliding scale. 7. HLD - CPK elevated. Statin held. 8. HTN - All anti-hypertensive medications held due to shock requiring pressors. 9. Chronic Systolic CHF - EF 30-35% with global hypokinesis. Normally on BB, MONE -I, Torsemide. Torsemide held in favor of IV hydration for now. Monitor renal response. 10. Hyperkalemia, mild - resolved with IV hydration. 11. CAD - no reported CP or EKG changes. TropI elevated to max of 0.16, likely sec to demand +/- Acute Rhabdo. DVT Px - Heparin SQ. GI Px - PPI
[2019-07-22] MEDS ORDERED: HYDROCORTISONE SOD SUCCINATE 100 MG/2 ML VIAL IVPUSH SCH (17:00)
--- NOTE | 2019-07-22 17:11 | PN ---
Physical Exam: SUBJECTIVE: Patient seen and examined O/N: complaint of SOB, started on BiPAP but pt did not tolerate, placed on Hi- Flow NC - endorses improvement in abd pain OBJECTIVE: Vital Signs Period Temp Pulse Resp BP Sys/Mata Pulse Ox Last 24 Hr 98.6 F-99.4 F 69-102 16-34 104-134/48-83 95-100 GENERAL: somnolent, oriented to self, year, president. HEAD: NC/AT, no hematomas noted, no facial lac noted EYES: sclera anicteric, mildly pale conjunctiva EARS, NOSE, THROAT: Ears normal, nares patent. Moist mucous membranes. Poor dentition NECK: no cervical LAD. Left IJ in place LUNGS: CTA bilaterally. No wheezes, and no crackles. No accessory muscle use. Hi -Flow NC HEART: Regular rate and rhythm, normal S1 and S2 without murmur, rub or gallop. Left chest wall w/ palpable PPM, no overlying erythema. ABDOMEN: Right subcostal incisional scar. Right-sided subcostal bulge +20cm in size. ND. Tenderness with deep palpation to RUQ, and LLQ. MUSCULOSKELETAL: No bony deformities or tenderness. No skin tears, or ecchymosis at extremities. Long, yellowed fingernails/toenails UPPER EXTREMITIES: 2+ pulses, warm, well-perfused. No cyanosis. No clubbing. No peripheral edema. Cool extremities LOWER EXTREMITIES: 2+ pulses, warm, well-perfused. No calf tenderness. No peripheral edema. Cool extremities NEUROLOGICAL: follows commands. Butter Printer strength 5/5. Moves fingers and toes on command SKIN: dry, cool extremities Laboratory Results - last 24 hr 07/21/19 07/21/19 07/21/19 18:19 19:40 23:02 WBC RBC Hgb Hct MCV MCH MCHC RDW Plt Count MPV Absolute Neuts (auto) Neutrophils % Neutrophils % (Manual) Band Neutrophils % Lymphocytes % Lymphocytes % (Manual) Monocytes % Monocytes % (Manual) Eosinophils % Eosinophils % (Manual) Basophils % Basophils % (Manual) Myelocytes % (Man) Promyelocytes % (Man) Blast Cells % (Manual) Nucleated RBC % Metamyelocytes Hypochromia Platelet Estimate Platelet Comment Polychromasia Poikilocytosis Anisocytosis Microcytosis Macrocytosis Spherocytes [place] Cells Acanthocytes (Spur) Anticoagulation Therapy No Result Required. Puncture Site Right radial ABG pH 7.42 ABG pCO2 at Pt Temp 22.7 L ABG pO2 at Pt Temp 96.0 ABG HCO3 14.5 L ABG O2 Sat (Measured) 96.9 ABG O2 Content 16.5 ABG Base Excess -8.1 L Arnoldo Test Positive O2 Delivery Device No Result Required. Oxygen Flow Rate Yes Vent Mode No Result Required. Vent Rate No Result Required. Mechanical Rate No Result Required. Pressure Support Vent No Result Required. Sodium Potassium Chloride Carbon Dioxide Anion Gap BUN Creatinine Est GFR (CKD-EPI)AfAm Est GFR (CKD-EPI)NonAf POC Glucometer 148 130 Random Glucose Calcium Phosphorus Magnesium Total Bilirubin AST ALT Alkaline Phosphatase Creatine Kinase Creatine Kinase Index CK-MB (CK-2) Total Protein Albumin 07/22/19 07/22/19 07/22/19 05:00 05:32 05:32 WBC 10.8 H RBC 3.16 L Hgb 8.7 L Hct 25.6 L MCV 81.0 MCH 27.5 MCHC 33.9 RDW 18.2 H Plt Count 172 MPV 9.0 Absolute Neuts (auto) 10.2 H Neutrophils % 94.2 H Neutrophils % (Manual) 80.0 Band Neutrophils % 16.0 Lymphocytes % 1.8 L Lymphocytes % (Manual) 2.0 L Monocytes % 3.5 L Monocytes % (Manual) 1 L Eosinophils % 0.0 Eosinophils % (Manual) 0.0 Basophils % 0.5 D Basophils % (Manual) 0.0 Myelocytes % (Man) 0 Promyelocytes % (Man) 0 Blast Cells % (Manual) 0 Nucleated RBC % 0 Metamyelocytes 1 D Hypochromia 0 Platelet Estimate Normal Platelet Comment Present Polychromasia 1+ Poikilocytosis 2+ Anisocytosis 1+ Microcytosis 1+ Macrocytosis 0 Spherocytes 1+ Baljit Cells 2+ Acanthocytes (Spur) 1+ Anticoagulation Therapy No Result Required. Puncture Site Right radial ABG pH 7.40 ABG pCO2 at Pt Temp 23.6 L ABG pO2 at Pt Temp 85.8 ABG HCO3 14.2 L ABG O2 Sat (Measured) 95.6 ABG O2 Content 11.7 ABG Base Excess -9.2 L Arnoldo Test Positive O2 Delivery Device Bipap Oxygen Flow Rate 40% Vent Mode No Result Required. Vent Rate 16 Mechanical Rate No Result Required. Pressure Support Vent 14/5 Sodium 135 L Potassium 3.9 Chloride 105 Carbon Dioxide 17 L Anion Gap 13 BUN 66.7 H Creatinine 4.1 H Est GFR (CKD-EPI)AfAm 14.38 Est GFR (CKD-EPI)NonAf 12.41 POC Glucometer Random Glucose 121 H Calcium 6.9 L* Phosphorus 4.4 Magnesium 1.9 Total Bilirubin 0.6 AST 78 H ALT 35 Alkaline Phosphatase 46 Creatine Kinase 1635 H Creatine Kinase Index 0.6 CK-MB (CK-2) 11.3 H Total Protein 5.2 L Albumin 1.8 L 07/22/19 07/22/19 05:40 11:40 WBC RBC Hgb Hct MCV MCH MCHC RDW Plt Count MPV Absolute Neuts (auto) Neutrophils % Neutrophils % (Manual) Band Neutrophils % Lymphocytes % Lymphocytes % (Manual) Monocytes % Monocytes % (Manual) Eosinophils % Eosinophils % (Manual) Basophils % Basophils % (Manual) Myelocytes % (Man) Promyelocytes % (Man) Blast Cells % (Manual) Nucleated RBC % Metamyelocytes Hypochromia Platelet Estimate Platelet Comment Polychromasia Poikilocytosis Anisocytosis Microcytosis Macrocytosis Spherocytes Baljit Cells Acanthocytes (Spur) Anticoagulation Therapy Puncture Site ABG pH ABG pCO2 at Pt Temp ABG pO2 at Pt Temp ABG HCO3 ABG O2 Sat (Measured) ABG O2 Content ABG Base Excess Arnoldo Test O2 Delivery Device Oxygen Flow Rate Vent Mode Vent Rate Mechanical Rate Pressure Support Vent Sodium Potassium Chloride Carbon Dioxide Anion Gap BUN Creatinine Est GFR (CKD-EPI)AfAm Est GFR (CKD-EPI)NonAf POC Glucometer 128 123 Random Glucose Calcium Phosphorus Magnesium Total Bilirubin AST ALT Alkaline Phosphatase Creatine Kinase Creatine Kinase Index CK-MB (CK-2) Total Protein Albumin Active Medications Generic Name Dose Route Start Last Admin Trade Name Freq PRN Reason Stop Dose Admin Acetaminophen 650 mg 07/20/19 19:02 Tylenol - PO Q6H PRN PAIN LEVEL 6-10 Albuterol/Ipratropium 1 amp 07/20/19 20:00 07/22/19 15:48 Duoneb - NEB 1 amp RQID DINESH Administration Chlorhexidine Gluconate 1 applic 07/20/19 22:00 07/21/19 21:47 Hibiclens For Decolonization - TP 1 applic HS DINESH Administration Heparin Sodium (Porcine) 5,000 unit 07/20/19 22:00 07/22/19 09:47 Heparin - SQ 5,000 unit BID DINESH Administration Hydrocortisone Sodium Succinate 50 mg 07/22/19 17:00 Solu-Cortef - IVPUSH Q6H-IV DINESH Norepinephrine Bitartrate 8, 500 mls @ 18.75 mls/hr 07/20/19 17:45 07/22/19 15:00 000 mcg/ Dextrose IV 3 mcg/min TITR DINESH 11.25 mls/hr Titration Protocol 5 MCG/MIN Piperacillin Sod/Tazobactam 50 mls @ 100 mls/hr 07/21/19 18:00 07/22/19 09:47 Sod 2.25 gm/ Dextrose IVPB 100 mls/hr Q8H-IV DINESH Administration Protocol Insulin Aspart 1 vial 07/20/19 19:15 07/22/19 12:06 Novolog Vial Sliding Scale - SQ Not Given Q6HPO DINESH Protocol Mupirocin 1 applic 07/20/19 22:00 07/22/19 09:58 Bactroban Ointment (For Decolonization) - NS 07/25/19 21:59 1 applic BID DINESH Administration Pantoprazole Sodium 40 mg 07/20/19 19:15 07/22/19 09:47 Protonix Iv IVPUSH 40 mg DAILY DINESH Administration ASSESSMENT/PLAN: 84M w/ pmh of HTN, HLD, GERD, hearing deficits(worse in Right ear), ?dementia, COPD(home O2, chronic prednisone), PPM(implanted 2014), CAD(1997), HFrEF(global hypokinesis, May 2018). CT A/P showing possible diverticulitis of cecum and sigmoid, Right kidney staghorn calculus, Right inginal hernia. On IV abx(zosyn) . Elevated CPK possibly 2/2 rhabdomyolysis. # Septic Shock --2/2 to likely diverticulitis of cecum and sigmoid > initial T 102.3 > initial BP 61/41 --MAP >65 > lactic acid 7.4->2.3->1.8 > CT A/P: diverticuli + fat stranding of cecum and sigmoid, ascites - s/p LR x1L, NS x2L - s/p Left IJ TC - pressors: levophd gtt(on 8mcg) - stres-dose steroids: Solu-Cortef 100mg q8h -->SoluCortef 50mg q6h - IVF --dc'd by ICU - empiric Zosyn # acute on chronic abdominal pain --possibly hernial pain vs diverticulitis > FOBT neg > CT A/P --possible diverticulitis # unwitnessed fall --possible mechanical vs syncope # r/o rhabdomylsis > CT H --neg > CPK 3571 --> 1635 - PT when stable # h/o CAD(1997) # troponinemia --possibly 2/2 to LAURA/CKD > Trop 0.06, 0.13, 0.15, 0.16, 0.14 > ECG - Ventricular paced rhythm with no St/T wave abnormalities. > CXR - Cardiomegaly, no pulmonary vascular congestion # LAURA vs CKD --possibly 2/2 sepsis/shock > Cr ~ 3.9, 3.7, 4.1 baseline Cr ~2.0 > CT A/P: right kidney staghorn calculi - Consult Nephro: --fu renal U/S --monitor CPK --avoid nephrotoxins # Respiratory needs 2/2 COPD (on home O2, chronically on steroids) > CT chest: mod-severe COPD w/ Right basilar consolidation/ateletasis and trace pleural effusion - duonebs - cw stress-dose steroids # NIDDM(reported to be not a diabetic) - BGM + ISS q6h # protein malnutrition > Alb 2.0 -->1.8 - PO diet when possible # chronic HLD - hold Statin until resolving rhabdo # chronic HTN - holding anti-hypertensive medications until resolution of shock # Chronic HFrEF > Echo(May 2018): global hypokinesis - hold home BB, MONE-I, Torsemide until resolution of acute issues # Hyperkalemia --resolving > K ~5.2 ->4.2 -->3.9 - fu lytes FEN - Diet: S&S: Dysphagia Pureed, nectar thick - off mIVF - replete lytes PRN GI PPx - pantoprazole 40mg IVP DVT PPx - Heparin SQ Visit type - Emergency Visit Emergency Visit: No - New Patient This patient is new to me today: No - Critical Care Critical Care patient: No ATTENDING PHYSICIAN STATEMENT I saw and evaluated the patient. I reviewed the resident's note and discussed the case with the resident. I agree with the resident's findings and plan as documented. SUBJECTIVE: OBJECTIVE: ASSESSMENT AND PLAN:
[2019-07-22 20:37] LABS: HEMOGLOBIN 8.2 GM/dL (11.7-16.9); MCH 27.5 pg (25.7-33.7); MEAN CELL VOLUME 81.1 fl (80-96); MEAN PLT VOLUME 8.9 fl (7.5-11.1); PLATELET COUNT 172 K/MM3 (134-434); RBC 2.96 M/mm3 (4.00-5.60); RDW 18.3 % (11.9-15.9); WHITE BLOOD COUNT 10.8 K/mm3 (4.0-10.0)
[2019-07-22] MEDS: CHLORHEXIDINE GLUCONATE 4% CLEANSER FOR DECOLONIZATION TP SCH (21:18)
[2019-07-23] MEDS ORDERED: PIPERACILLIN/TAZOBACTAM 2.25 GM VIAL IVPB ONE ×3 (02:02→18:53)
[2019-07-23] MEDS ORDERED: DEXTROSE 5%-WATER - 50 ML IVPB ONE ×3 (02:02→18:53)
[2019-07-23] MEDS: PIPERACILLIN/TAZOB 2.25 GM 2.25 GM in DEXTROSE 5%-WATER - 50 ML IVPB SCH ×3 (02:04→18:57)
[2019-07-23] MEDS: HYDROCORTISONE SOD SUCCINATE 100 MG/2 ML VIAL IVPUSH SCH ×4 (02:04→18:57)
[2019-07-23] MEDS ORDERED: ALBUTEROL SO4 2.5/IPRATROPIUM 0.5 INH SOL 3 ML VIAL.NEB. NEB ONE (05:36)
[2019-07-23] MEDS: ALBUTEROL SO4 2.5/IPRATROPIUM 0.5 INH SOL 3 ML VIAL.NEB. NEB PRN ×2 (05:40→20:44)
[2019-07-23] MEDS: INSULIN SLIDING SCALE (NOVOLOG) 1 VIAL SQ SCH ×3 (05:51→18:52)
[2019-07-23 06:29] LABS: BASO % 0.2 % (0-2.0); HEMATOCRIT 23.7 % (35.4-49); HEMOGLOBIN 8.1 GM/dL (11.7-16.9); LYMPH % 1.6 % (8-40); MCH 27.7 pg (25.7-33.7); MCHC 34.1 g/dl (32.0-35.9); MEAN CELL VOLUME 81.1 fl (80-96); MEAN PLT VOLUME 9.2 fl (7.5-11.1); MONO % 3.3 % (3.8-10.2); NEUT % 94.9 % (42.8-82.8); PLATELET COUNT 166 K/MM3 (134-434); RBC 2.92 M/mm3 (4.00-5.60); RDW 18.7 % (11.9-15.9); WHITE BLOOD COUNT 9.6 K/mm3 (4.0-10.0)
[2019-07-23 07:28] LABS: ALBUMIN 1.8 g/dl (3.4-5.0); BILIRUBIN,TOTAL 0.5 mg/dL (0.2-1); BLOOD UREA NITROGEN 81.6 mg/dL (7-18); CALCIUM 7.3 mg/dL (8.5-10.1); CREATININE 4.5 mg/dL (0.55-1.3); MAGNESIUM 2.1 mg/dL (1.8-2.4); PHOSPHOROUS 4.8 mg/dL (2.5-4.9); POTASSIUM 3.8 mmol/L (3.5-5.1); TOT PROT 5.1 g/dl (6.4-8.2)
--- NOTE | 2019-07-23 08:41 | PN ---
Progress Note (short form) - Note Progress Note: RENAL Pt is awake and alert He is oliguric Last Vital Signs Temp Pulse Resp BP Pulse Ox 98.7 F 73 30 H 131/57 L 95 07/23/19 08:00 07/23/19 08:16 07/23/19 08:00 07/23/19 08:00 07/23/19 08:16 lungs clear anteriorly clear cvs s1s2 rr, pacemaker noted abd soft ext no edema neuro opens eyes, no tremors noted skin no obvious lesion noted CBC, BMP 07/23/19 05:30 07/23/19 05:30 Current Medications Generic Name Dose Route Start Last Admin Trade Name Freq PRN Reason Stop Dose Admin Acetaminophen 650 mg 07/20/19 19:02 Tylenol - PO Q6H PRN PAIN LEVEL 6-10 Albuterol/Ipratropium 1 amp 07/23/19 05:35 07/23/19 05:40 Duoneb - NEB 1 amp RQID PRN Administration SHORT OF BREATH/WHEEZING Chlorhexidine Gluconate 1 applic 07/20/19 22:00 07/22/19 21:18 Hibiclens For Decolonization - TP 1 applic HS DINESH Administration Heparin Sodium (Porcine) 5,000 unit 07/20/19 22:00 07/22/19 21:13 Heparin - SQ 5,000 unit BID DINESH Administration Hydrocortisone Sodium Succinate 50 mg 07/22/19 17:00 07/23/19 02:04 Solu-Cortef - IVPUSH 50 mg Q6H-IV DINESH Administration Norepinephrine Bitartrate 8, 500 mls @ 18.75 mls/hr 07/20/19 17:45 07/22/19 21:26 000 mcg/ Dextrose IV 0 mcg/min TITR DINESH 0 mls/hr Titration Protocol 5 MCG/MIN Piperacillin Sod/Tazobactam 50 mls @ 100 mls/hr 07/21/19 18:00 07/23/19 02:04 Sod 2.25 gm/ Dextrose IVPB 100 mls/hr Q8H-IV DINESH Administration Protocol Insulin Aspart 1 vial 07/20/19 19:15 07/23/19 05:51 Novolog Vial Sliding Scale - SQ Not Given Q6HPO DINESH Protocol Mupirocin 1 applic 07/20/19 22:00 07/22/19 21:18 Bactroban Ointment (For Decolonization) - NS 07/25/19 21:59 1 applic BID DINESH Administration Pantoprazole Sodium 40 mg 07/20/19 19:15 07/22/19 09:47 Protonix Iv IVPUSH 40 mg DAILY DINESH Administration Impression 1. LAURA/CKD- I am more likely to dialyze given fact that he is awake 2. sepsis 3. pna 4. ckd 5. copd 6. dm 7. hx htn 8. dementia 9. rhabdo-mild 10 atrophic right kidney with staghorn calculus Plan - would start gentle hydration and if necessary would dialyze - will discuss hd with daughter when she arrives. I left my number with nurse KARLIE - KARLIE
[2019-07-23] MEDS: NOREPINEPHRINE BITARTRATE 8,000 MCG in DEXTROSE 5%-WATER - 492 ML IV SCH (08:55)
[2019-07-23] MEDS: LACTATED RINGERS SOLUTION 1,000 ML/1,000 ML INFUS.BAG IV SCH (08:57)
[2019-07-23] MEDS: HEPARIN NA (PORCINE) 5,000 UNITS/ML 1ML VIAL SQ SCH ×2 (09:13→21:12)
[2019-07-23] MEDS: PANTOPRAZOLE SODIUM 40 MG VIAL IVPUSH SCH (09:13)
[2019-07-23] MEDS: MUPIROCIN 2% TOPICAL OINTMENT FOR DECOLONIZATION NS SCH ×2 (09:14→21:12)
--- NOTE | 2019-07-23 09:14 | PN ---
Progress Note (short form) - Note Progress Note: PULM/CRITICAL CARE PROGRESS NOTE: SUBJECTIVE: Patient seen and examined in the ICU. Off Norepi. SpO2 95 on .40 FiO2 HFNC. RR 22-30, but likely due to metabolic acidosis from renal failure, not hypoxemia. UOP is increasing. OBJECTIVE: Current Medications Acetaminophen (Tylenol -) 650 mg PO Q6H PRN PRN Reason: PAIN LEVEL 6-10 Albuterol/Ipratropium (Duoneb -) 1 amp NEB RQID PRN PRN Reason: SHORT OF BREATH/WHEEZING Last Admin: 07/23/19 05:40 Dose: 1 amp Chlorhexidine Gluconate (Hibiclens For Decolonization -) 1 applic TP HS DINESH Last Admin: 07/22/19 21:18 Dose: 1 applic Heparin Sodium (Porcine) (Heparin -) 5,000 unit SQ BID DINESH Last Admin: 07/22/19 21:13 Dose: 5,000 unit Hydrocortisone Sodium Succinate (Solu-Cortef -) 50 mg IVPUSH Q6H-IV DINESH Last Admin: 07/23/19 02:04 Dose: 50 mg Norepinephrine Bitartrate 8, (000 mcg/ Dextrose) 500 mls @ 18.75 mls/hr IV TITR DINESH; Protocol Last Admin: 07/23/19 08:55 Dose: Not Given Piperacillin Sod/Tazobactam (Sod 2.25 gm/ Dextrose) 50 mls @ 100 mls/hr IVPB Q8H-IV DINESH; Protocol Last Admin: 07/23/19 02:04 Dose: 100 mls/hr Lactated Ringer's (Lactated Ringers Solution) 1,000 ml in 1,000 mls @ 75 mls/ hr IV ASDIR DINESH Last Admin: 07/23/19 08:57 Dose: 75 mls/hr Insulin Aspart (Novolog Vial Sliding Scale -) 1 vial SQ Q6HPO DINESH; Protocol Last Admin: 07/23/19 05:51 Dose: Not Given Mupirocin (Bactroban Ointment (For Decolonization) -) 1 applic NS BID DINESH Stop: 07/25/19 21:59 Last Admin: 07/22/19 21:18 Dose: 1 applic Pantoprazole Sodium (Protonix Iv) 40 mg IVPUSH DAILY DINESH Last Admin: 07/22/19 09:47 Dose: 40 mg Vital Signs Temp 98.7 F 07/23/19 08:00 Pulse 73 07/23/19 08:16 Resp 30 H 07/23/19 08:00 BP 131/57 L 07/23/19 08:00 Pulse Ox 95 07/23/19 08:16 Intake & Output 07/22/19 07/23/19 07/23/19 18:59 06:59 18:59 Intake Total 745.6 136 Output Total 320 550 Balance 425.6 -414 Weight 73.482 kg 66.905 kg Intake: IV 195.6 36 D5-1/2Ns - 1,000 ml @ 100 0 mls/hr IV ASDIR DINESH Rx#: [id number] Levophed - 8,000 Mcg In 195.6 36 D5w - 492 ml @ 5 MCG/MIN 18.75 mls/hr IV TITR DINESH Rx#:[id number] IVPB 550 100 Output: Urine 320 550 Anthony 320 550 Other: Voiding Method Indwelling Catheter Indwelling Catheter Indwelling Catheter Bowel Movement No Height 5 ft 8 in Body Mass Index (BMI) 24.6 Weight Measurement Method Built in [facility] Gen: Awake, tachypneic Heart: RRR Lung: decreased breath sounds at the bases, bilateral scattered rhonchi, no wheeze Abd: soft, mild TTP, (+) BS, no rebound Ext: no edema CBC, BMP 07/23/19 05:30 07/23/19 05:30 ASSESSMENT AND PLAN: Suspected Pneumonia r/o Acute Diverticulitis Septic Shock - resolved CAD/+Troponins likely Demand Ischemia Metabolic Acidosis Acute on Chronic Renal Failure COPD Chronic Hypoxic Respiratory Failure LV Systolic Dysfunction HTN DM Dementia - ABX per ID - Gentle hydration - Monitor urine output, creatinine - renal following - O2 to keep SpO2 >90% - will try nasal cannula today - Wean steroids - Inhaled bronchodilators - DVT/GI prophylaxis - Can d/c TLC if remains stable - Requires continued ICU monitoring 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
--- NOTE | 2019-07-23 09:33 | PN ---
Progress Note (short form) - Note Progress Note: alert TUNUNAK on high flow oxygen Vital Signs Period Temp Pulse Resp BP Sys/Mata Pulse Ox Last 24 Hr 98.4 F-99.2 F 69-101 16-30 107-132/48-83 95-100 cor-rrr lungs decreased bs at bases abd soft,nt ext no edema +right IJ cvp +gil CBC, BMP 07/23/19 05:30 07/23/19 05:30 Microbiology 07/20/19 15:00 Blood - Peripheral Venous Blood Culture - Preliminary NO GROWTH OBTAINED AFTER 48 HOURS, INCUBATION TO CONTINUE FOR 3 DAYS. 07/20/19 15:00 Blood - Peripheral Venous Blood Culture - Preliminary NO GROWTH OBTAINED AFTER 48 HOURS, INCUBATION TO CONTINUE FOR 3 DAYS. 07/20/19 16:11 Urine - Urine Clean Catch Urine Culture - Final NO GROWTH OBTAINED 07/21/19 13:30 Urine For Antigen Detection Legionella Antigen - Preliminary 07/21/19 13:30 Urine For Antigen Detection Streptococcus pneumoniae Antigen (M - Preliminary Current Medications Acetaminophen (Tylenol -) 650 mg PO Q6H PRN PRN Reason: PAIN LEVEL 6-10 Albuterol/Ipratropium (Duoneb -) 1 amp NEB RQID PRN PRN Reason: SHORT OF BREATH/WHEEZING Last Admin: 07/23/19 05:40 Dose: 1 amp Chlorhexidine Gluconate (Hibiclens For Decolonization -) 1 applic TP HS DINESH Last Admin: 07/22/19 21:18 Dose: 1 applic Heparin Sodium (Porcine) (Heparin -) 5,000 unit SQ BID DINESH Last Admin: 07/23/19 09:13 Dose: 5,000 unit Hydrocortisone Sodium Succinate (Solu-Cortef -) 50 mg IVPUSH Q8H-IV DINESH Last Admin: 07/23/19 09:33 Dose: Not Given Piperacillin Sod/Tazobactam (Sod 2.25 gm/ Dextrose) 50 mls @ 100 mls/hr IVPB Q8H-IV DINESH; Protocol Last Admin: 07/23/19 09:13 Dose: 100 mls/hr Lactated Ringer's (Lactated Ringers Solution) 1,000 ml in 1,000 mls @ 75 mls/ hr IV ASDIR DINESH Last Admin: 07/23/19 08:57 Dose: 75 mls/hr Insulin Aspart (Novolog Vial Sliding Scale -) 1 vial SQ Q6HPO [facility]; Protocol Last Admin: 07/23/19 05:51 Dose: Not Given Mupirocin (Bactroban Ointment (For Decolonization) -) 1 applic NS BID [facility] Stop: 07/25/19 21:59 Last Admin: 07/23/19 09:14 Dose: 1 applic Pantoprazole Sodium (Protonix Iv) 40 mg IVPUSH DAILY [facility] Last Admin: 07/23/19 09:13 Dose: 40 mg a/p sepsis probable pneumonia diverticulitis gorge on ckd- continue zosyn clinically improved worsening renal failure- f/u per renal
[2019-07-23 12:39] LABS: ANISOCYTOSIS 2+; MACROCYTOSIS 0; OVALOCYTE 2+; PLATELET ESTIMATE NORMAL; TARGET CELLS 1+
--- NOTE | 2019-07-23 17:06 | PN ---
Progress Note (short form) - Note Progress Note: SUBJECTIVE: Awake, Alert,, but still unable to recount history. Denies CP/ palpitations/SOB/cough/abdominal pain. No fever/chills. OBJECTIVE: Fever resolved, hemodynamicaly Stable. SpO2 95% on 50% HF. sitting up in bed eating. Last Vital Signs Temp Pulse Resp BP Pulse Ox 98.8 F 85 24 H 116/65 94 L 07/23/19 14:00 07/23/19 16:53 07/23/19 12:29 07/23/19 14:00 07/23/19 16:53 HEENT: [facility] Heart - S1, S2, RRR, PPM in situ Lungs - few basal crackles. Abdomen - Soft, some scaring associated with prior open cholecystectomy incision with underlying RUQ tenderness along with LLQ tenderness (improving). Bowel Sounds normal. Extremities - Edema +, no calf tenderness. Neuro - Hearing Impaired. AAO x 3. Moving all 4 extremities. Laboratory Results - last 24 hr 07/22/19 07/22/19 07/22/19 17:07 20:10 22:53 WBC 10.8 H RBC 2.96 L Hgb 8.2 L Hct 24.0 L MCV 81.1 MCH 27.5 MCHC 34.0 RDW 18.3 H Plt Count 172 MPV 8.9 Absolute Neuts (auto) Neutrophils % Neutrophils % (Manual) Band Neutrophils % Lymphocytes % Lymphocytes % (Manual) Monocytes % Monocytes % (Manual) Eosinophils % Eosinophils % (Manual) Basophils % Basophils % (Manual) Myelocytes % (Man) Promyelocytes % (Man) Blast Cells % (Manual) Nucleated RBC % Metamyelocytes Hypochromia Platelet Estimate Platelet Comment Polychromasia Poikilocytosis Anisocytosis Microcytosis Macrocytosis Spherocytes Target Cells Ovalocytes Baljit Cells Fragmented RBCs Schistocytes Sodium Potassium Chloride Carbon Dioxide Anion Gap BUN Creatinine Est GFR (CKD-EPI)AfAm Est GFR (CKD-EPI)NonAf POC Glucometer 107 108 Random Glucose Calcium Phosphorus Magnesium Total Bilirubin AST ALT Alkaline Phosphatase Creatine Kinase Creatine Kinase Index CK-MB (CK-2) Total Protein Albumin 07/23/19 07/23/19 07/23/19 05:30 05:30 05:36 WBC 9.6 RBC 2.92 L Hgb 8.1 L Hct 23.7 L MCV 81.1 MCH 27.7 MCHC 34.1 RDW 18.7 H Plt Count 166 MPV 9.2 Absolute Neuts (auto) 9.1 H Neutrophils % 94.9 H Neutrophils % (Manual) 91.1 H Band Neutrophils % 5.9 Lymphocytes % 1.6 L Lymphocytes % (Manual) 1.0 L D Monocytes % 3.3 L Monocytes % (Manual) 1 L Eosinophils % 0.0 Eosinophils % (Manual) 0.0 Basophils % 0.2 Basophils % (Manual) 0.0 Myelocytes % (Man) 0 Promyelocytes % (Man) 0 Blast Cells % (Manual) 0 Nucleated RBC % 0 Metamyelocytes 0 D Hypochromia 0 Platelet Estimate Normal Platelet Comment Present Polychromasia 2+ Poikilocytosis 2+ Anisocytosis 2+ Microcytosis 2+ Macrocytosis 0 Spherocytes 1+ Target Cells 1+ Ovalocytes 2+ [place] Cells 2+ Fragmented RBCs 1+ Schistocytes 1+ Sodium 137 Potassium 3.8 Chloride 108 H Carbon Dioxide 17 L Anion Gap 13 BUN 81.6 H Creatinine 4.5 H Est GFR (CKD-EPI)AfAm 12.85 Est GFR (CKD-EPI)NonAf 11.09 POC Glucometer 91 Random Glucose 99 Calcium 7.3 L Phosphorus 4.8 Magnesium 2.1 Total Bilirubin 0.5 AST 59 H ALT 38 Alkaline Phosphatase 47 Creatine Kinase 901 H Creatine Kinase Index 0.6 CK-MB (CK-2) 6.2 H Total Protein 5.1 L Albumin 1.8 L 07/23/19 07/23/19 11:40 11:44 WBC RBC Hgb Hct MCV MCH MCHC RDW Plt Count MPV Absolute Neuts (auto) Neutrophils % Neutrophils % (Manual) Band Neutrophils % Lymphocytes % Lymphocytes % (Manual) Monocytes % Monocytes % (Manual) Eosinophils % Eosinophils % (Manual) Basophils % Basophils % (Manual) Myelocytes % (Man) Promyelocytes % (Man) Blast Cells % (Manual) Nucleated RBC % Metamyelocytes Hypochromia Platelet Estimate Platelet Comment Polychromasia Poikilocytosis Anisocytosis Microcytosis Macrocytosis Spherocytes Target Cells Ovalocytes Baljit Cells Fragmented RBCs Schistocytes Sodium Potassium Chloride Carbon Dioxide Anion Gap BUN Creatinine Est GFR (CKD-EPI)AfAm Est GFR (CKD-EPI)NonAf POC Glucometer 134 342 Random Glucose Calcium Phosphorus Magnesium Total Bilirubin AST ALT Alkaline Phosphatase Creatine Kinase Creatine Kinase Index CK-MB (CK-2) Total Protein Albumin Current Medications Generic Name Dose Route Start Last Admin Trade Name Mady PRN Reason Stop Dose Admin Acetaminophen 650 mg 07/20/19 19:02 Tylenol - PO Q6H PRN PAIN LEVEL 6-10 Albuterol/Ipratropium 1 amp 07/23/19 05:35 07/23/19 05:40 Duoneb - NEB 1 amp RQID PRN Administration SHORT OF BREATH/WHEEZING Chlorhexidine Gluconate 1 applic 07/20/19 22:00 07/22/19 21:18 Hibiclens For Decolonization - TP 1 applic HS DINESH Administration Heparin Sodium (Porcine) 5,000 unit 07/20/19 22:00 07/23/19 09:13 Heparin - SQ 5,000 unit BID DINESH Administration Hydrocortisone Sodium Succinate 50 mg 07/23/19 10:00 07/23/19 09:33 Solu-Cortef - IVPUSH Not Given Q8H-IV DINESH Piperacillin Sod/Tazobactam 50 mls @ 100 mls/hr 07/21/19 18:00 07/23/19 09:13 Sod 2.25 gm/ Dextrose IVPB 100 mls/hr Q8H-IV DINESH Administration Protocol Lactated Ringer's 1,000 ml in 1,000 mls @ 75 mls/hr 07/23/19 08:45 07/23/19 08:57 Lactated Ringers Solution IV 75 mls/hr ASDIR DINESH Administration Insulin Aspart 1 vial 07/20/19 19:15 07/23/19 11:43 Novolog Vial Sliding Scale - SQ Not Given Q6HPO DINESH Protocol Mupirocin 1 applic 07/20/19 22:00 07/23/19 09:14 Bactroban Ointment (For Decolonization) - NS 07/25/19 21:59 1 applic BID DINESH Administration Pantoprazole Sodium 40 mg 07/20/19 19:15 07/23/19 09:13 Protonix Iv IVPUSH 40 mg DAILY DINESH Administration Home Medications Medication Instructions Recorded Amlodipine Besylate 10 mg PO DAILY 12/19/18 Aspirin Coated [Ecotrin -] 81 mg PO DAILY 12/19/18 Atorvastatin Ca [Lipitor] 20 mg PO HS 12/19/18 Carvedilol [Coreg -] 12.5 mg PO BID 12/19/18 Latanoprost/Pf [Latanoprost 0.005% 7.5 ml OP DAILY 12/19/18 Eye Drop] Losartan Potassium 100 mg PO DAILY 12/19/18 Pantoprazole Sodium 40 mg PO DAILY 12/19/18 Risperidone [Risperdal] 1 mg PO DAILY 12/19/18 Torsemide [Demadex -] 20 mg PO DAILY 12/19/18 predniSONE [Deltasone -] 10 mg PO ASDIR 10 Days #30 tablet 12/24/18 Cholecalciferol (Vitamin D3) 2,000 unit PO DAILY 07/21/19 [Vitamin D] Cyanocobalamin [Vitamin B12 -] 1,000 mcg PO DAILY 07/21/19 ASSESSMENT AND PLAN: 84 year old male with history of CRF sec to COPD (on Home O2), Chronic Systolic CHF, Arrhythmia s/p PPM, Hearing Impaired, CAD, DM 2, HTN, CKD 3/4, HLD, Dementia (normally AAO x 2) 1. Septic Shock secondary to Diverticulitis +/- Pneumonia - improving CT A/P - bibasal atelectasis ?consolidation, diverticulosis, possible diverticulitis. Fever resolved. Weaned off Levophed. For weaning of stress dose steroids. Lactic Acidosis resolved IV Zosyn empirically as per ID Continued ICU admission for worsening renal function and monitoring of respiratory status. 2. Syncope, likely secondary to hypotension CT Head - no acute intracranial findings. No CP/palpitations TropI max 0.16, likely sec to demand versus Rhabdomyolysis ECG - Ventricular paced rhythm with no ST/T wave abnormalities. CXR - Cardiomegaly, no pulmonary findings. 3. Acute rhabdomyolysis - improving CPK level trending down with gentle IV hydration. 4. LAURA on CKD 3/4 secondary to sepsis/shock/rhabdo Pressors weaned off, IV hydration ongoing, now oliguric CT Abdo/Pelvis shows staghorn calculus and atrophic R kidney. Renal US - R non-obstructing stones, small R kidney, possible clot/mass in bladder - for further Ix once clinically improved. Seen by Nephrology - will likely require dialysis if no improvement. 5. Acute on chronic Hypoxic Resp Failure sec to fluid overload due to IV fluid hydration, LAURA with oliguria. Currently on HFO2. May require HD. 6. CRF sec to COPD (on home O2, chronically on steroids) - stable, no evidence of acute exacerbation. Started on stress dose steroids. Regular DuoNebs. 7. DM 2 - will maintain on sliding scale. 8. HLD - CPK elevated. Statin held. 9. HTN - All anti-hypertensive medications held due to shock requiring pressors. 10. Chronic Systolic CHF - EF 30-35% with global hypokinesis. Normally on BB, MONE-I, Torsemide. Torsemide held in favor of IV hydration for now. Monitor renal response. 11. Hyperkalemia, mild - resolved with IV hydration. 12. CAD - no reported CP or EKG changes. TropI elevated to max of 0.16, likely sec to demand +/- Acute Rhabdo. DVT Px - Heparin SQ. GI Px - PPI Visit type - Emergency Visit Emergency Visit: Yes ED Registration Date: 07/20/19 Care time: The patient presented to the Emergency Department on the above date and was hospitalized for further evaluation of their emergent condition. - New Patient This patient is new to me today: No - Critical Care Critical Care patient: Yes Total Critical Care Time (in minutes): 35 Critical Care Statement: The care of this patient involved high complexity decision making to prevent further life threatening deterioration of the patient 's condition and/or to evaluate & treat vital organ system(s) failure or risk of failure. - Discharge Referral Referred to [facility] No
[2019-07-23] MEDS: CHLORHEXIDINE GLUCONATE 4% CLEANSER FOR DECOLONIZATION TP SCH (21:13)
[2019-07-24] MEDS: INSULIN SLIDING SCALE (NOVOLOG) 1 VIAL SQ SCH ×5 (00:29→23:09)
[2019-07-24] MEDS: PIPERACILLIN/TAZOB 2.25 GM 2.25 GM in DEXTROSE 5%-WATER - 50 ML IVPB SCH ×3 (01:08→17:03)
[2019-07-24] MEDS: HYDROCORTISONE SOD SUCCINATE 100 MG/2 ML VIAL IVPUSH SCH ×3 (01:08→17:03)
[2019-07-24] MEDS ORDERED: PIPERACILLIN/TAZOBACTAM 2.25 GM VIAL IVPB ONE ×3 (01:19→16:58)
[2019-07-24] MEDS ORDERED: DEXTROSE 5%-WATER - 50 ML IVPB ONE ×3 (01:19→16:58)
[2019-07-24 06:25] LABS: HEMATOCRIT 23.7 % (35.4-49); HEMOGLOBIN 8.4 GM/dL (11.7-16.9); MCH 28.8 pg (25.7-33.7); MCHC 35.4 g/dl (32.0-35.9); MEAN CELL VOLUME 81.4 fl (80-96); MEAN PLT VOLUME 9.1 fl (7.5-11.1); PLATELET COUNT 178 K/MM3 (134-434); RBC 2.92 M/mm3 (4.00-5.60); RDW 18.8 % (11.9-15.9); WHITE BLOOD COUNT 10.5 K/mm3 (4.0-10.0)
[2019-07-24 06:51] LABS: BLOOD UREA NITROGEN 93.9 mg/dL (7-18); CALCIUM 7.8 mg/dL (8.5-10.1); CREATININE 4.8 mg/dL (0.55-1.3); MAGNESIUM 2.5 mg/dL (1.8-2.4); PHOSPHOROUS 5.5 mg/dL (2.5-4.9); POTASSIUM 3.8 mmol/L (3.5-5.1)
--- NOTE | 2019-07-24 08:55 | PN ---
Teaching Attending Note Name of Resident: Ross Thibodeaux ATTENDING PHYSICIAN STATEMENT I saw and evaluated the patient. I reviewed the resident's note and discussed the case with the resident. I agree with the resident's findings and plan as documented. SUBJECTIVE: Awake, Alert, but still unable to recount history. Denies CP/ palpitations/SOB/cough/abdominal pain. No fever/chills. OBJECTIVE: Fever resolved, hemodynamicaly Stable. SpO2 95% on 50% HF. sitting up in bed. Last Vital Signs Temp Pulse Resp BP Pulse Ox 98 F 82 34 H 145/72 94 L 07/24/19 16:00 07/24/19 13:07 07/24/19 17:09 07/24/19 17:09 07/23/19 20:00 Heart - S1, S2, RRR, PPM in situ Lungs - Lungs sound less congested, fewer basal crackles. Abdomen - Soft, some scaring associated with prior open cholecystectomy incision with underlying RUQ tenderness along with LLQ tenderness (improving). Bowel Sounds normal. Extremities - Edema +, no calf tenderness. Neuro - Hearing Impaired. AAO x 3. Moving all 4 extremities. Laboratory Results - last 24 hr 07/23/19 07/24/19 07/24/19 21:13 05:30 05:30 WBC 10.5 H RBC 2.92 L Hgb 8.4 L Hct 23.7 L MCV 81.4 MCH 28.8 MCHC 35.4 RDW 18.8 H Plt Count 178 MPV 9.1 Sodium 139 Potassium 3.8 Chloride 110 H Carbon Dioxide 17 L Anion Gap 12 BUN 93.9 H Creatinine 4.8 H Est GFR (CKD-EPI)AfAm 11.89 Est GFR (CKD-EPI)NonAf 10.26 POC Glucometer 117 Random Glucose 124 H Calcium 7.8 L Phosphorus 5.5 H Magnesium 2.5 H 07/24/19 07/24/19 07/24/19 06:09 11:36 16:55 WBC RBC Hgb Hct MCV MCH MCHC RDW Plt Count MPV Sodium Potassium Chloride Carbon Dioxide Anion Gap BUN Creatinine Est GFR (CKD-EPI)AfAm Est GFR (CKD-EPI)NonAf POC Glucometer 122 207 126 Random Glucose Calcium Phosphorus Magnesium Current Medications Generic Name Dose Route Start Last Admin Trade Name Freq PRN Reason Stop Dose Admin Acetaminophen 650 mg 07/20/19 19:02 Tylenol - PO Q6H PRN PAIN LEVEL 6-10 Albuterol/Ipratropium 1 amp 07/23/19 05:35 07/23/19 20:44 Duoneb - NEB 1 amp RQID PRN Administration SHORT OF BREATH/WHEEZING Chlorhexidine Gluconate 1 applic 07/20/19 22:00 07/23/19 21:13 Hibiclens For Decolonization - TP 1 applic HS DINESH Administration Heparin Sodium (Porcine) 5,000 unit 07/20/19 22:00 07/23/19 21:12 Heparin - SQ 5,000 unit BID DINESH Administration Hydrocortisone Sodium Succinate 50 mg 07/23/19 10:00 07/24/19 01:08 EST Solu-Cortef - IVPUSH 50 mg Q8H-IV DINESH Administration Piperacillin Sod/Tazobactam 50 mls @ 100 mls/hr 07/21/19 18:00 07/24/19 01: 08 EST Sod 2.25 gm/ Dextrose IVPB 100 mls/hr Q8H-IV DINESH Administration Protocol Lactated Ringer's 1,000 ml in 1,000 mls @ 75 mls/hr 07/23/19 08:45 07/23/19 08:57 Lactated Ringers Solution IV 75 mls/hr ASDIR DINESH Administration Insulin Aspart 1 vial 07/20/19 19:15 07/24/19 06:43 Novolog Vial Sliding Scale - SQ Not Given Q6HPO [facility] Protocol Mupirocin 1 applic 07/20/19 22:00 07/23/19 21:12 Bactroban Ointment (For Decolonization) - NS 07/25/19 21:59 1 applic BID DINESH Administration Pantoprazole Sodium 40 mg 07/20/19 19:15 07/23/19 09:13 Protonix Iv IVPUSH 40 mg DAILY DINESH Administration Home Medications Medication Instructions Recorded Amlodipine Besylate 10 mg PO DAILY 12/19/18 Aspirin Coated [Ecotrin -] 81 mg PO DAILY 12/19/18 Atorvastatin Ca [Lipitor] 20 mg PO HS 12/19/18 Carvedilol [Coreg -] 12.5 mg PO BID 12/19/18 Latanoprost/Pf [Latanoprost 0.005% 7.5 ml OP DAILY 12/19/18 Eye Drop] Losartan Potassium 100 mg PO DAILY 12/19/18 Pantoprazole Sodium 40 mg PO DAILY 12/19/18 Risperidone [Risperdal] 1 mg PO DAILY 12/19/18 Torsemide [Demadex -] 20 mg PO DAILY 12/19/18 predniSONE [Deltasone -] 10 mg PO ASDIR 10 Days #30 tablet 12/24/18 Cholecalciferol (Vitamin D3) 2,000 unit PO DAILY 07/21/19 [Vitamin D] Cyanocobalamin [Vitamin B12 -] 1,000 mcg PO DAILY 07/21/19 ASSESSMENT AND PLAN: 84 year old male with history of CRF sec to COPD (on Home O2), Chronic Systolic CHF, Arrhythmia s/p PPM, Hearing Impaired, CAD, DM 2, HTN, CKD 3/4, HLD, Dementia (normally AAO x 2) 1. Septic Shock secondary to Diverticulitis +/- Pneumonia - improving CT A/P - bibasal atelectasis ?consolidation, diverticulosis, possible diverticulitis. Fever resolved. Weaned off Levophed. For weaning of stress dose steroids. Lactic Acidosis resolved IV Zosyn empirically as per ID Continued ICU admission for worsening renal function and monitoring of respiratory status. 2. Syncope, likely secondary to hypotension CT Head - no acute intracranial findings. No CP/palpitations TropI max 0.16, likely sec to demand versus Rhabdomyolysis ECG - Ventricular paced rhythm with no ST/T wave abnormalities. CXR - Cardiomegaly, no pulmonary findings. 3. Acute rhabdomyolysis - improved CPK level trended down with gentle IV hydration. 4. LAURA on CKD 3/4 secondary to sepsis/shock/rhabdo Pressors weaned off, urine output picking up after several days of oliguria. K 3.8/bicarb 17/BUN 93.9/Creat 4.8 (baseline 2.2) CT Abdo/Pelvis shows staghorn calculus and atrophic R kidney. Renal US - R non-obstructing stones, small R kidney, possible clot/mass in bladder - for further Ix once clinically improved. Seen by Nephrology - will hold off dialysis given improving urinary output. Will monitor renal function. 5. Acute on chronic Hypoxic Resp Failure sec to fluid overload due to IV fluid hydration, LAURA with oliguria. Currently on HFO2. Urine output improving, may require HD. 6. CRF sec to COPD (on home O2, chronically on steroids) - stable, no evidence of acute exacerbation. On stress dose steroids, DuoNebs. Normally on Prednisone 10 mg chronically. 7. DM 2 - will maintain on sliding scale. 8. HLD - Statin held due to elevated CPK. 9. HTN - All anti-hypertensive medications held due to shock requiring pressors. 10. Chronic Systolic CHF - EF 30-35% with global hypokinesis. Normally on BB, MONE-I, Torsemide. Torsemide held in favor of IV hydration. Monitor renal response. 11. CAD - no reported CP or EKG changes. TropI elevated to max of 0.16, likely sec to demand +/- Acute Rhabdo. DVT Px - Heparin SQ. GI Px - PPI
[2019-07-24] MEDS: PANTOPRAZOLE SODIUM 40 MG VIAL IVPUSH SCH (09:26)
[2019-07-24] MEDS: HEPARIN NA (PORCINE) 5,000 UNITS/ML 1ML VIAL SQ SCH ×2 (09:26→21:52)
--- NOTE | 2019-07-24 09:27 | PN ---
Progress Note (short form) - Note Progress Note: RENAL Pt is awake and alert making more urine Last Vital Signs Temp Pulse Resp BP Pulse Ox 98.6 F 72 18 146/66 94 L 07/24/19 06:00 07/24/19 07:46 07/24/19 07:46 07/24/19 07:46 07/23/19 20:00 lungs clear anteriorly cvs s1s2 rr, pacemaker noted abd soft ext no edema neuro opens eyes, no tremors noted skin no obvious lesion noted CBC, BMP 07/24/19 05:30 07/24/19 05:30 Current Medications Generic Name Dose Route Start Last Admin Trade Name Freq PRN Reason Stop Dose Admin Acetaminophen 650 mg 07/20/19 19:02 Tylenol - PO Q6H PRN PAIN LEVEL 6-10 Albuterol/Ipratropium 1 amp 07/23/19 05:35 07/23/19 20:44 Duoneb - NEB 1 amp RQID PRN Administration SHORT OF BREATH/WHEEZING Chlorhexidine Gluconate 1 applic 07/20/19 22:00 07/23/19 21:13 Hibiclens For Decolonization - TP 1 applic HS DINESH Administration Heparin Sodium (Porcine) 5,000 unit 07/20/19 22:00 07/23/19 21:12 Heparin - SQ 5,000 unit BID DINESH Administration Hydrocortisone Sodium Succinate 50 mg 07/23/19 10:00 07/24/19 01:08 EST Solu-Cortef - IVPUSH 50 mg Q8H-IV DINESH Administration Piperacillin Sod/Tazobactam 50 mls @ 100 mls/hr 07/21/19 18:00 07/24/19 01: 08 EST Sod 2.25 gm/ Dextrose IVPB 100 mls/hr Q8H-IV DINESH Administration Protocol Lactated Ringer's 1,000 ml in 1,000 mls @ 75 mls/hr 07/23/19 08:45 07/23/19 08:57 Lactated Ringers Solution IV 75 mls/hr ASDIR DINESH Administration Insulin Aspart 1 vial 07/20/19 19:15 07/24/19 06:43 Novolog Vial Sliding Scale - SQ Not Given Q6HPO DINESH Protocol Mupirocin 1 applic 07/20/19 22:00 07/23/19 21:12 Bactroban Ointment (For Decolonization) - NS 07/25/19 21:59 1 applic BID DINESH Administration Pantoprazole Sodium 40 mg 07/20/19 19:15 07/23/19 09:13 Protonix Iv IVPUSH 40 mg DAILY DINESH Administration Impression 1. LAURA/CKD- I am more likely to dialyze given fact that he is awake 2. sepsis 3. pna 4. ckd 5. copd 6. dm 7. hx htn 8. dementia 9. rhabdo-mild 10 atrophic right kidney with staghorn calculus Plan fluids being stopped today He made more urine and is much more awake, would continue to monitor for now continue feeding MV
[2019-07-24] MEDS: MUPIROCIN 2% TOPICAL OINTMENT FOR DECOLONIZATION NS SCH ×2 (09:28→21:54)
[2019-07-24] MEDS ORDERED: predniSONE 10 MG TABLET (UD) PO SCH (10:00)
--- NOTE | 2019-07-24 11:07 | PN ---
Progress Note (short form) - Note Progress Note: alert [place] on high flow oxygen no abdominal pain Vital Signs Period Temp Pulse Resp BP Sys/Mata Pulse Ox Last 24 Hr 97.7 F-98.8 F 69-100 14-24 114-148/58-85 94-94 cor-rrr llungs decreased bs at bases abd soft,nt ext trace edema +gil CBC, BMP 07/24/19 05:30 07/24/19 05:30 Microbiology 07/20/19 15:00 Blood - Peripheral Venous Blood Culture - Preliminary NO GROWTH OBTAINED AFTER 72 HOURS, INCUBATION TO CONTINUE FOR 2 DAYS. 07/20/19 15:00 Blood - Peripheral Venous Blood Culture - Preliminary NO GROWTH OBTAINED AFTER 72 HOURS, INCUBATION TO CONTINUE FOR 2 DAYS. 07/20/19 16:11 Urine - Urine Clean Catch Urine Culture - Final NO GROWTH OBTAINED 07/21/19 13:30 Urine For Antigen Detection Legionella Antigen - Preliminary 07/21/19 13:30 Urine For Antigen Detection Streptococcus pneumoniae Antigen (M - Preliminary a/p sepsis probable pneumonia diverticulitis gorge on ckd- cr 4.8 today- f/u per renal continue zosyn clinically improved
[2019-07-24] MEDS: LACTATED RINGERS SOLUTION 1,000 ML/1,000 ML INFUS.BAG IV SCH (11:48)
--- NOTE | 2019-07-24 12:40 | PN ---
Progress Note (short form) - Note Progress Note: PULM/CRITICAL CARE PROGRESS NOTE: SUBJECTIVE: Patient seen and examined in the ICU. Awake, responds to name. Occasional productive cough. Remains off Norepi. SpO2 95 on .50 FiO2, 20L HFNC. UOP is increasing. s/p 1L fluid bolus. OBJECTIVE: Active Medications Acetaminophen (Tylenol -) 650 mg PO Q6H PRN PRN Reason: PAIN LEVEL 6-10 Albuterol/Ipratropium (Duoneb -) 1 amp NEB RQID PRN PRN Reason: SHORT OF BREATH/WHEEZING Last Admin: 07/23/19 20:44 Dose: 1 amp Chlorhexidine Gluconate (Hibiclens For Decolonization -) 1 applic TP HS [facility] Last Admin: 07/23/19 21:13 Dose: 1 applic Heparin Sodium (Porcine) (Heparin -) 5,000 unit SQ BID [facility] Last Admin: 07/24/19 09:26 Dose: 5,000 unit Hydrocortisone Sodium Succinate (Solu-Cortef -) 50 mg IVPUSH Q8H-IV DINESH Last Admin: 07/24/19 09:27 Dose: 50 mg Piperacillin Sod/Tazobactam (Sod 2.25 gm/ Dextrose) 50 mls @ 100 mls/hr IVPB Q8H-IV [facility]; Protocol Last Admin: 07/24/19 09:28 Dose: 100 mls/hr Lactated Ringer's (Lactated Ringers Solution) 1,000 ml in 1,000 mls @ 75 mls/ hr IV ASDIR [facility] Last Admin: 07/24/19 11:48 Dose: Not Given Insulin Aspart (Novolog Vial Sliding Scale -) 1 vial SQ Q6HPO [facility]; Protocol Last Admin: 07/24/19 11:48 Dose: 4 units Mupirocin (Bactroban Ointment (For Decolonization) -) 1 applic NS BID [facility] Stop: 07/25/19 21:59 Last Admin: 07/24/19 09:28 Dose: 1 applic Pantoprazole Sodium (Protonix Iv) 40 mg IVPUSH DAILY [facility] Last Admin: 07/24/19 09:26 Dose: 40 mg Vital Signs Temperature 98.2 F 07/24/19 09:48 Pulse Rate 88 07/24/19 11:41 Respiratory Rate 24 H 07/24/19 11:41 Blood Pressure 162/86 07/24/19 11:41 O2 Sat by Pulse Oximetry (%) 94 L 07/23/19 20:00 Intake & Output 07/21/19 07/22/19 07/23/19 07/24/19 23:59 23:59 23:59 22:59 Intake Total 4075 1061.6 763 1000 Output Total 510 1020 800 250 Balance 3565 41.6 -37 750 Weight 69.989 kg 73.482 kg 66.905 kg 69.853 kg Gen: Awake, in NAD Heart: RRR, paced Lung: decreased breath sounds at the bases, bilateral scattered rhonchi, no wheeze Abd: soft, NT, (+) BS, no rebound Ext: Trace edema CBC, BMP 07/24/19 05:30 07/24/19 05:30 ASSESSMENT AND PLAN: Suspected Pneumonia r/o Acute Diverticulitis Septic Shock - resolved CAD/+Troponins likely Demand Ischemia Metabolic Acidosis Acute on Chronic Renal Failure COPD Chronic Hypoxic Respiratory Failure LV Systolic Dysfunction HTN DM Dementia - ABX per ID - Nephrology considering iHD now that he's more awake and responsive - KVO fluid - Tolerating po's - Monitor urine output, creatinine - O2 to keep SpO2 >90% on HiFlo NC; wean as reid - Wean steroids - Inhaled bronchodilators - DVT/GI prophylaxis - Can d/c TLC if remains stable - Requires continued ICU monitoring Neetu Crawley, JEROMEP Pulm/Critical Care [employer] Additional CC's: Jose Masters
[2019-07-24] MEDS ORDERED: LACTATED RINGERS SOLUTION 1,000 ML/1,000 ML INFUS.BAG IV SCH (13:34)
--- NOTE | 2019-07-24 18:45 | PN ---
Physical Exam: SUBJECTIVE: Patient seen and examined NAEON Denies abdominal pain. Tolerated pureed diet. Endorses thirst OBJECTIVE: Vital Signs Period Temp Pulse Resp BP Sys/Mata Pulse Ox Last 24 Hr 97.7 F-98.6 F 69-100 14-34 114-162/58-86 94-94 GENERAL: somnolent but arouseablee, oriented to self, year, president. HEAD: NC/AT, no hematomas noted, no facial lac noted EYES: sclera anicteric, mildly pale conjunctiva EARS, NOSE, THROAT: Ears normal, nares patent. Moist mucous membranes. Poor dentition NECK: no cervical LAD. Dressing at Left neck at site of former IJ LUNGS: CTA bilaterally. No wheezes, and no crackles. No accessory muscle use. Hi -Flow NC 20L HEART: Regular rate and rhythm, normal S1 and S2 without murmur, rub or gallop. Left chest wall w/ palpable PPM, no overlying erythema. ABDOMEN: Right subcostal incisional scar. Right-sided subcostal bulge +20cm in size. ND. Tenderness with deep palpation to RUQ, and LLQ. MUSCULOSKELETAL: No bony deformities or tenderness. No skin tears, or ecchymosis at extremities. Long, yellowed fingernails/toenails UPPER EXTREMITIES: 2+ pulses, warm, well-perfused. No cyanosis. No clubbing. No peripheral edema. Cool extremities LOWER EXTREMITIES: 2+ pulses, warm, well-perfused. No calf tenderness. No peripheral edema. Cool extremities NEUROLOGICAL: follows commands. 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 Moves fingers and toes on command SKIN: dry, cool extremities Laboratory Results - last 24 hr 07/23/19 07/24/19 07/24/19 21:13 05:30 05:30 WBC 10.5 H RBC 2.92 L Hgb 8.4 L Hct 23.7 L MCV 81.4 MCH 28.8 MCHC 35.4 RDW 18.8 H Plt Count 178 MPV 9.1 Sodium 139 Potassium 3.8 Chloride 110 H Carbon Dioxide 17 L Anion Gap 12 BUN 93.9 H Creatinine 4.8 H Est GFR (CKD-EPI)AfAm 11.89 Est GFR (CKD-EPI)NonAf 10.26 POC Glucometer 117 Random Glucose 124 H Calcium 7.8 L Phosphorus 5.5 H Magnesium 2.5 H 07/24/19 07/24/19 07/24/19 06:09 11:36 16:55 WBC RBC Hgb Hct MCV MCH MCHC RDW Plt Count MPV Sodium Potassium Chloride Carbon Dioxide Anion Gap BUN Creatinine Est GFR (CKD-EPI)AfAm Est GFR (CKD-EPI)NonAf POC Glucometer 122 207 126 Random Glucose Calcium Phosphorus Magnesium Active Medications Generic Name Dose Route Start Last Admin Trade Name Freq PRN Reason Stop Dose Admin Acetaminophen 650 mg 07/20/19 19:02 Tylenol - PO Q6H PRN PAIN LEVEL 6-10 Albuterol/Ipratropium 1 amp 07/23/19 05:35 07/23/19 20:44 Duoneb - NEB 1 amp RQID PRN Administration SHORT OF BREATH/WHEEZING Chlorhexidine Gluconate 1 applic 07/20/19 22:00 07/23/19 21:13 Hibiclens For Decolonization - TP 1 applic HS DINESH Administration Heparin Sodium (Porcine) 5,000 unit 07/20/19 22:00 07/24/19 09:26 Heparin - SQ 5,000 unit BID DINESH Administration Hydrocortisone Sodium Succinate 50 mg 07/23/19 10:00 07/24/19 17:03 Solu-Cortef - IVPUSH 50 mg Q8H-IV DINESH Administration Piperacillin Sod/Tazobactam 50 mls @ 100 mls/hr 07/21/19 18:00 07/24/19 17:03 Sod 2.25 gm/ Dextrose IVPB 100 mls/hr Q8H-IV DINESH Administration Protocol Lactated Ringer's 1,000 ml in 1,000 mls @ 5 mls/hr 07/24/19 13:34 07/24/19 17 :03 Lactated Ringers Solution IV 5 mls/hr ASDIR DINESH Administration Insulin Aspart 1 vial 07/20/19 19:15 07/24/19 17:03 Novolog Vial Sliding Scale - SQ Not Given Q6HPO DINESH Protocol Mupirocin 1 applic 07/20/19 22:00 07/24/19 09:28 Bactroban Ointment (For Decolonization) - NS 07/25/19 21:59 1 applic BID DINESH Administration Pantoprazole Sodium 40 mg 07/20/19 19:15 07/24/19 09:26 Protonix Iv IVPUSH 40 mg DAILY DINESH Administration ASSESSMENT/PLAN: 84M w/ pmh of HTN, HLD, GERD, hearing deficits(worse in Right ear), ?dementia, COPD(home O2, chronic prednisone), PPM(implanted 2014), CAD(1997), HFrEF(global hypokinesis, May 2018). CT A/P showing possible diverticulitis of cecum and sigmoid, Right kidney staghorn calculus, Right inginal hernia. On IV abx(zosyn) . Elevated CPK possibly 2/2 rhabdomyolysis. # Septic Shock --2/2 to likely diverticulitis of cecum and sigmoid > initial T 102.3 > initial BP 61/41 --MAP >65 > lactic acid 7.4->2.3->1.8 > CT A/P: diverticuli + fat stranding of cecum and sigmoid, ascites - s/p LR x1L, NS x2L - s/p Left IJ TC --removed - pressors: levophd gtt(on 8mcg) --dc'd - stres-dose steroids: Solu-Cortef 100mg q8h ->SoluCortef 50mg q6h --> SoluCortef 50mg q8h - IVF --dc'd by ICU - empiric Zosyn(for diverticulitis and probable PNA) # acute on chronic abdominal pain --possibly hernial pain vs diverticulitis -- symptomatically resovling > FOBT neg > CT A/P --probable diverticulitis - zosyn - outpt c-scope in 6-8wks # unwitnessed fall --possible mechanical vs syncope # r/o rhabdomylsis > CT H --neg > CPK 3571 -> 1635 -->901 - PT when stable # h/o CAD(1997) # troponinemia --possibly 2/2 to LAURA/CKD > Trop 0.06, 0.13, 0.15, 0.16, 0.14 > ECG - Ventricular paced rhythm with no St/T wave abnormalities. > CXR - Cardiomegaly, no pulmonary vascular congestion # LAURA vs CKD --possibly 2/2 sepsis/shock --worsening Cr > Cr ~ 3.9, 3.7, 4.1, 4.5, -->4.8; baseline Cr ~2.0 > CT A/P: right kidney staghorn calculi > US renal(07/22/19): small right Right kidney w/ nonobstructing stone, Left kidney no visualized - Consult Nephro: --avoid nephrotoxins --defer HD for another day as UOP has increased --IVF TKO # Respiratory needs 2/2 COPD (on home O2, chronically on steroids) > CT chest: mod-severe COPD w/ Right basilar consolidation/ateletasis and trace pleural effusion - duonebs - cw stress-dose steroids # NIDDM(reported to be not a diabetic) - BGM + ISS q6h # protein malnutrition > Alb 2.0 -->1.8 - encourage diet # chronic HLD - hold Statin until resolving rhabdo # chronic HTN - holding anti-hypertensive medications until resolution of shock # Chronic HFrEF > Echo(May 2018): global hypokinesis - hold home BB, MONE-I, Torsemide until resolution of acute issues # Hyperkalemia --resolving > K ~5.2 ->4.2 ->3.8 - fu lytes FEN - Diet: S&S: Dysphagia Pureed, nectar thick - off mIVF - replete lytes PRN GI PPx - pantoprazole 40mg IVP DVT PPx - Heparin SQ Visit type - Emergency Visit Emergency Visit: No - New Patient This patient is new to me today: No - Critical Care Critical Care patient: No ATTENDING PHYSICIAN STATEMENT I saw and evaluated the patient. I reviewed the resident's note and discussed the case with the resident. I agree with the resident's findings and plan as documented. SUBJECTIVE: OBJECTIVE: ASSESSMENT AND PLAN:
[2019-07-24] MEDS: CHLORHEXIDINE GLUCONATE 4% CLEANSER FOR DECOLONIZATION TP SCH (21:52)
[2019-07-25] MEDS ORDERED: DEXTROSE 5%-WATER - 50 ML IVPB ONE ×3 (02:26→17:46)
[2019-07-25] MEDS ORDERED: PIPERACILLIN/TAZOBACTAM 2.25 GM VIAL IVPB ONE ×3 (02:26→17:46)
[2019-07-25] MEDS: HYDROCORTISONE SOD SUCCINATE 100 MG/2 ML VIAL IVPUSH SCH ×3 (02:31→17:56)
[2019-07-25] MEDS: PIPERACILLIN/TAZOB 2.25 GM 2.25 GM in DEXTROSE 5%-WATER - 50 ML IVPB SCH ×3 (02:32→17:56)
[2019-07-25] MEDS: INSULIN SLIDING SCALE (NOVOLOG) 1 VIAL SQ SCH ×3 (06:18→17:40)
[2019-07-25 06:51] LABS: BASO % 0.1 % (0-2.0); HEMATOCRIT 22.1 % (35.4-49); HEMOGLOBIN 7.5 GM/dL (11.7-16.9); LYMPH % 2.5 % (8-40); MCH 27.5 pg (25.7-33.7); MCHC 33.8 g/dl (32.0-35.9); MEAN CELL VOLUME 81.3 fl (80-96); MEAN PLT VOLUME 8.8 fl (7.5-11.1); MONO % 5.6 % (3.8-10.2); NEUT % 91.8 % (42.8-82.8); PLATELET COUNT 173 K/MM3 (134-434); RBC 2.71 M/mm3 (4.00-5.60); RDW 18.9 % (11.9-15.9); WHITE BLOOD COUNT 10.9 K/mm3 (4.0-10.0)
[2019-07-25 07:50] LABS: CALCIUM 7.5 mg/dL (8.5-10.1); CREATININE 4.8 mg/dL (0.55-1.3); MAGNESIUM 2.6 mg/dL (1.8-2.4); PHOSPHOROUS 5.2 mg/dL (2.5-4.9); POTASSIUM 3.5 mmol/L (3.5-5.1)
[2019-07-25 07:52] LABS: BLOOD UREA NITROGEN 106.2 mg/dL (7-18)
--- NOTE | 2019-07-25 09:03 | PN ---
Teaching Attending Note Name of Resident: Ross Thibodeaux ATTENDING PHYSICIAN STATEMENT I saw and evaluated the patient. I reviewed the resident's note and discussed the case with the resident. I agree with the resident's findings and plan as documented. 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 CBC, BMP 07/25/19 05:15 07/25/19 05:15 Active Medications Acetaminophen (Tylenol -) 650 mg PO Q6H PRN PRN Reason: PAIN LEVEL 6-10 Albuterol/Ipratropium (Duoneb -) 1 amp NEB RQID PRN PRN Reason: SHORT OF BREATH/WHEEZING Last Admin: 07/23/19 20:44 Dose: 1 amp Chlorhexidine Gluconate (Hibiclens For Decolonization -) 1 applic TP HS DINESH Last Admin: 07/24/19 21:52 Dose: 1 applic Heparin Sodium (Porcine) (Heparin -) 5,000 unit SQ BID DINESH Last Admin: 07/24/19 21:52 Dose: 5,000 unit Hydrocortisone Sodium Succinate (Solu-Cortef -) 50 mg IVPUSH Q8H-IV DINESH Last Admin: 07/25/19 02:31 Dose: 50 mg Piperacillin Sod/Tazobactam (Sod 2.25 gm/ Dextrose) 50 mls @ 100 mls/hr IVPB Q8H-IV DINESH; Protocol Last Admin: 07/25/19 02:32 Dose: 100 mls/hr Lactated Ringer's (Lactated Ringers Solution) 1,000 ml in 1,000 mls @ 5 mls/hr IV ASDIR DINESH Last Admin: 07/24/19 17:03 Dose: 5 mls/hr Insulin Aspart (Novolog Vial Sliding Scale -) 1 vial SQ Q6HPO [facility]; Protocol Last Admin: 07/25/19 06:18 Dose: Not Given Mupirocin (Bactroban Ointment (For Decolonization) -) 1 applic NS BID [facility] Stop: 07/25/19 21:59 Last Admin: 07/24/19 21:54 Dose: 1 applic Pantoprazole Sodium (Protonix Iv) 40 mg IVPUSH DAILY [facility] Last Admin: 07/24/19 09:26 Dose: 40 mg ASSESSMENT AND PLAN:84 year old male with history of CRF sec to COPD (on Home O2 ), Chronic Systolic CHF, Arrhythmia s/p PPM, Hearing Impaired, CAD, DM 2, HTN, CKD 3/4, HLD, Dementia (normally AAO x 2) Agrees with current plan of care as per ICU team. Continue current management.
[2019-07-25] MEDS: HEPARIN NA (PORCINE) 5,000 UNITS/ML 1ML VIAL SQ SCH ×2 (09:20→22:52)
[2019-07-25] MEDS: PANTOPRAZOLE SODIUM 40 MG VIAL IVPUSH SCH (09:20)
[2019-07-25] MEDS: MUPIROCIN 2% TOPICAL OINTMENT FOR DECOLONIZATION NS SCH (09:21)
[2019-07-25 10:27] LABS: ANISOCYTOSIS 2+; MACROCYTOSIS 0; OVALOCYTE 1+; PLATELET ESTIMATE NORMAL
--- NOTE | 2019-07-25 11:59 | PN ---
Teaching Attending Note Name of Resident: Sven Rosas ATTENDING PHYSICIAN STATEMENT I saw and evaluated the patient. I reviewed the resident's note and discussed the case with the resident. I agree with the resident's findings and plan as documented. SUBJECTIVE: Patient seen and examined in the ICU. Awake and interactive but confused. Remains on HFOT. Worsening renal function. Intake & Output 07/23/19 07/24/19 07/24/19 07/25/19 00:59 00:59 23:59 23:59 Intake Total 575 Output Total 500 Balance 75 Weight 147 lb 4.8 oz Last Vital Signs Temp Pulse Resp BP Pulse Ox 98.6 F 68 13 136/79 96 07/25/19 08:00 07/25/19 08:00 07/25/19 08:00 07/25/19 08:00 07/25/19 08:13 Active Medications Acetaminophen (Tylenol -) 650 mg PO Q6H PRN PRN Reason: PAIN LEVEL 6-10 Albuterol/Ipratropium (Duoneb -) 1 amp NEB RQID PRN PRN Reason: SHORT OF BREATH/WHEEZING Last Admin: 07/23/19 20:44 Dose: 1 amp Chlorhexidine Gluconate (Hibiclens For Decolonization -) 1 applic TP HS DINESH Last Admin: 07/24/19 21:52 Dose: 1 applic Heparin Sodium (Porcine) (Heparin -) 5,000 unit SQ BID DINESH Last Admin: 07/25/19 09:20 Dose: 5,000 unit Hydrocortisone Sodium Succinate (Solu-Cortef -) 25 mg IVPUSH Q8H-IV DINESH Piperacillin Sod/Tazobactam (Sod 2.25 gm/ Dextrose) 50 mls @ 100 mls/hr IVPB Q8H-IV DINESH; Protocol Last Admin: 07/25/19 09:20 Dose: 100 mls/hr Lactated Ringer's (Lactated Ringers Solution) 1,000 ml in 1,000 mls @ 5 mls/hr IV ASDIR DINESH Last Admin: 07/24/19 17:03 Dose: 5 mls/hr Insulin Aspart (Novolog Vial Sliding Scale -) 1 vial SQ Q6HPO DINESH; Protocol Last Admin: 07/25/19 11:46 Dose: 2 units Mupirocin (Bactroban Ointment (For Decolonization) -) 1 applic NS BID DINESH Stop: 07/25/19 21:59 Last Admin: 07/25/19 09:21 Dose: 1 applic Pantoprazole Sodium (Protonix Iv) 40 mg IVPUSH DAILY [facility] Last Admin: 07/25/19 09:20 Dose: 40 mg Gen: Awake on HFOT, confused, mildly tachypneic at rest Heart: RRR, paced Lung: decreased breath sounds at the bases, bilateral scattered rhonchi, no wheeze Abd: soft, NT, (+) BS, no rebound Ext: Trace edema Laboratory Results - last 24 hr 07/24/19 07/24/19 07/25/19 16:55 23:03 05:12 WBC RBC Hgb Hct MCV MCH MCHC RDW Plt Count MPV Absolute Neuts (auto) Neutrophils % Neutrophils % (Manual) Band Neutrophils % Lymphocytes % Lymphocytes % (Manual) Monocytes % Monocytes % (Manual) Eosinophils % Eosinophils % (Manual) Basophils % Basophils % (Manual) Myelocytes % (Man) Promyelocytes % (Man) Blast Cells % (Manual) Nucleated RBC % Metamyelocytes Hypochromia Platelet Estimate Polychromasia Poikilocytosis Anisocytosis Microcytosis Macrocytosis Ovalocytes [place] Cells Sodium Potassium Chloride Carbon Dioxide Anion Gap BUN Creatinine Est GFR (CKD-EPI)AfAm Est GFR (CKD-EPI)NonAf POC Glucometer 126 122 107 Random Glucose Calcium Phosphorus Magnesium Creatine Kinase Blood Type Antibody Screen 07/25/19 07/25/19 07/25/19 05:15 05:15 09:50 WBC 10.9 H RBC 2.71 L Hgb 7.5 L Hct 22.1 L MCV 81.3 MCH 27.5 MCHC 33.8 RDW 18.9 H Plt Count 173 MPV 8.8 Absolute Neuts (auto) 10.0 H Neutrophils % 91.8 H Neutrophils % (Manual) 87.0 H Band Neutrophils % 0.0 Lymphocytes % 2.5 L D Lymphocytes % (Manual) 1.0 L Monocytes % 5.6 Monocytes % (Manual) 11 H D Eosinophils % 0.0 Eosinophils % (Manual) 0.0 Basophils % 0.1 Basophils % (Manual) 0.0 Myelocytes % (Man) 0 Promyelocytes % (Man) 0 Blast Cells % (Manual) 0 Nucleated RBC % 0 Metamyelocytes 0 Hypochromia 1+ Platelet Estimate Normal Polychromasia 1+ Poikilocytosis 2+ Anisocytosis 2+ Microcytosis 2+ Macrocytosis 0 Ovalocytes 1+ Baljit Cells 2+ Sodium 142 Potassium 3.5 Chloride 112 H Carbon Dioxide 18 L Anion Gap 12 BUN 106.2 H* Creatinine 4.8 H Est GFR (CKD-EPI)AfAm 11.89 Est GFR (CKD-EPI)NonAf 10.26 POC Glucometer Random Glucose 115 H Calcium 7.5 L Phosphorus 5.2 H Magnesium 2.6 H Creatine Kinase 135 Blood Type A POSITIVE Antibody Screen Negative 07/25/19 11:01 WBC RBC Hgb Hct MCV MCH MCHC RDW Plt Count MPV Absolute Neuts (auto) Neutrophils % Neutrophils % (Manual) Band Neutrophils % Lymphocytes % Lymphocytes % (Manual) Monocytes % Monocytes % (Manual) Eosinophils % Eosinophils % (Manual) Basophils % Basophils % (Manual) Myelocytes % (Man) Promyelocytes % (Man) Blast Cells % (Manual) Nucleated RBC % Metamyelocytes Hypochromia Platelet Estimate Polychromasia Poikilocytosis Anisocytosis Microcytosis Macrocytosis Ovalocytes [place] Cells Sodium Potassium Chloride Carbon Dioxide Anion Gap BUN Creatinine Est GFR (CKD-EPI)AfAm Est GFR (CKD-EPI)NonAf POC Glucometer 181 Random Glucose Calcium Phosphorus Magnesium Creatine Kinase Blood Type Antibody Screen ASSESSMENT AND PLAN: Suspected Pneumonia r/o Acute Diverticulitis Septic Shock - resolved CAD/+Troponins likely Demand Ischemia Metabolic Acidosis Acute on Chronic Renal Failure COPD Chronic Hypoxic Respiratory Failure LV Systolic Dysfunction HTN DM Dementia - ABX per ID - Nephrology follow up for possible HD - PO as tolerated - Monitor urine output, creatinine - O2 to keep SpO2 >90% on HiFlo NC; wean as reid - Wean steroids - Inhaled bronchodilators - DVT/GI prophylaxis - Requires continued ICU monitoring Dr Masters
--- NOTE | 2019-07-25 13:40 | PN ---
Progress Note, Physician History of Present Illness: Pt seen and examined at bedside. He is more awake and interactive than when I saw him on . - Current Medication List Current Medications: Active Medications Acetaminophen (Tylenol -) 650 mg PO Q6H PRN PRN Reason: PAIN LEVEL 6-10 Albuterol/Ipratropium (Duoneb -) 1 amp NEB RQID PRN PRN Reason: SHORT OF BREATH/WHEEZING Last Admin: 07/23/19 20:44 Dose: 1 amp Chlorhexidine Gluconate (Hibiclens For Decolonization -) 1 applic TP HS DINESH Last Admin: 07/24/19 21:52 Dose: 1 applic Heparin Sodium (Porcine) (Heparin -) 5,000 unit SQ BID DINESH Last Admin: 07/25/19 09:20 Dose: 5,000 unit Hydrocortisone Sodium Succinate (Solu-Cortef -) 25 mg IVPUSH Q8H-IV DINESH Piperacillin Sod/Tazobactam (Sod 2.25 gm/ Dextrose) 50 mls @ 100 mls/hr IVPB Q8H-IV DINESH; Protocol Last Admin: 07/25/19 09:20 Dose: 100 mls/hr Lactated Ringer's (Lactated Ringers Solution) 1,000 ml in 1,000 mls @ 5 mls/hr IV ASDIR DINESH Last Admin: 07/24/19 17:03 Dose: 5 mls/hr Insulin Aspart (Novolog Vial Sliding Scale -) 1 vial SQ Q6HPO DINESH; Protocol Last Admin: 07/25/19 11:46 Dose: 2 units Mupirocin (Bactroban Ointment (For Decolonization) -) 1 applic NS BID DINESH Stop: 07/25/19 21:59 Last Admin: 07/25/19 09:21 Dose: 1 applic Pantoprazole Sodium (Protonix Iv) 40 mg IVPUSH DAILY DINESH Last Admin: 07/25/19 09:20 Dose: 40 mg - Objective Vital Signs: Vital Signs Temperature 98.4 F 07/25/19 12:00 Pulse Rate 76 07/25/19 12:00 Respiratory Rate 31 H 07/25/19 12:00 Blood Pressure 153/74 07/25/19 12:00 O2 Sat by Pulse Oximetry (%) 96 07/25/19 08:13 Constitutional: Yes: Calm Eyes: Yes: Conjunctiva Clear HENT: Yes: Atraumatic Cardiovascular: Yes: S1, S2 Respiratory: Yes: On Nasal O2 Gastrointestinal: Yes: Soft Genitourinary: Yes: Anthony Present Edema: No Neurological: Yes: Confusion Labs: CBC, BMP 07/25/19 05:15 07/25/19 05:15 INR, PTT INR 1.44 (0.83-1.09) H 07/20/19 15:00 Problem List - Problems (1) Septic shock Code(s): A41.9 - SEPSIS, UNSPECIFIED ORGANISM; R65.21 - SEVERE SEPSIS WITH SEPTIC SHOCK (2) Acute kidney injury Code(s): N17.9 - ACUTE KIDNEY FAILURE, UNSPECIFIED Assessment/Plan Current Medications Generic Name Dose Route Start Last Admin Trade Name Freq PRN Reason Stop Dose Admin Acetaminophen 650 mg 07/20/19 19:02 Tylenol - PO Q6H PRN PAIN LEVEL 6-10 Albuterol/Ipratropium 1 amp 07/23/19 05:35 07/23/19 20:44 Duoneb - NEB 1 amp RQID PRN Administration SHORT OF BREATH/WHEEZING Chlorhexidine Gluconate 1 applic 07/20/19 22:00 07/24/19 21:52 Hibiclens For Decolonization - TP 1 applic HS DINESH Administration Heparin Sodium (Porcine) 5,000 unit 07/20/19 22:00 07/25/19 09:20 Heparin - SQ 5,000 unit BID DINESH Administration Hydrocortisone Sodium Succinate 25 mg 07/25/19 11:32 Solu-Cortef - IVPUSH Q8H-IV DINESH Piperacillin Sod/Tazobactam 50 mls @ 100 mls/hr 07/21/19 18:00 07/25/19 09:20 Sod 2.25 gm/ Dextrose IVPB 100 mls/hr Q8H-IV DINESH Administration Protocol Lactated Ringer's 1,000 ml in 1,000 mls @ 5 mls/hr 07/24/19 13:34 07/24/19 17 :03 Lactated Ringers Solution IV 5 mls/hr ASDIR DINESH Administration Insulin Aspart 1 vial 07/20/19 19:15 07/25/19 11:46 Novolog Vial Sliding Scale - SQ 2 units Q6HPO DINESH Administration Protocol Mupirocin 1 applic 07/20/19 22:00 07/25/19 09:21 Bactroban Ointment (For Decolonization) - NS 07/25/19 21:59 1 applic BID DINESH Administration Pantoprazole Sodium 40 mg 07/20/19 19:15 07/25/19 09:20 Protonix Iv IVPUSH 40 mg DAILY DINESH Administration Laboratory Tests 07/23/19 07/25/19 05:30 05:15 Creatine Kinase 901 H 135 Impression 1. LAURA 2. sepsis 3. pna 4. ckd 5. copd 6. dm 7. hx htn 8. dementia 9. rhabdo Plan - d/c fluids - repeat labs in am - will hold off HD for now as he is making urine - maintain map 65 - repeat ua - check cxr - avoid nephrotoxins - renal dose meds
--- NOTE | 2019-07-25 14:13 | CONSULT ---
Consultation: REQUESTING PROVIDER: CONSULT REQUEST: We have been asked to medically evaluate this patient for ( specify). HISTORY OF PRESENT ILLNESS: REVIEW OF SYSTEMS: CONSTITUTIONAL: Absent: fever, chills, diaphoresis, generalized weakness, malaise, loss of appetite, weight change HEENT: Absent: rhinorrhea, nasal congestion, throat pain, throat swelling, difficulty swallowing, mouth swelling, ear pain, eye pain, visual changes CARDIOVASCULAR: Absent: chest pain, syncope, palpitations, irregular heart rate, lightheadedness , peripheral edema RESPIRATORY: Absent: cough, shortness of breath, dyspnea with exertion, orthopnea, wheezing, stridor, hemoptysis GASTROINTESTINAL: Absent: abdominal pain, abdominal distension, nausea, vomiting, diarrhea, constipation, melena, hematochezia GENITOURINARY: Absent: dysuria, frequency, urgency, hesitancy, hematuria, flank pain, genital pain MUSCULOSKELETAL: Absent: myalgia, arthralgia, joint swelling, back pain, neck pain SKIN: Absent: rash, itching, pallor HEMATOLOGIC/IMMUNOLOGIC: Absent: easy bleeding, easy bruising, lymphadenopathy, frequent infections ENDOCRINE: Absent: unexplained weight gain, unexplained weight loss, heat intolerance, cold intolerance NEUROLOGIC: Absent: headache, focal weakness or paresthesias, dizziness, unsteady gait, seizure, mental status changes, bladder or bowel incontinence PSYCHIATRIC: Absent: anxiety, depression, suicidal or homicidal ideation, hallucinations. PHYSICAL EXAMINATION Vital Signs - 24 hr 07/24/19 07/24/19 07/24/19 16:00 17:09 20:00 Temperature 98 F Pulse Rate 88 Respiratory 28 H 34 H 12 Rate Blood Pressure 145/72 145/72 95/67 O2 Sat by Pulse Oximetry (%) 07/24/19 07/24/19 07/24/19 21:00 22:00 23:28 Temperature 98.1 F Pulse Rate 62 Respiratory 21 H Rate Blood Pressure 117/68 O2 Sat by Pulse 95 98 Oximetry (%) 07/25/19 07/25/19 07/25/19 00:00 02:00 04:00 Temperature 98.3 F Pulse Rate 89 85 60 Respiratory 22 H 15 16 Rate Blood Pressure 130/62 120/66 124/54 L O2 Sat by Pulse Oximetry (%) 07/25/19 07/25/19 07/25/19 06:00 08:00 08:13 Temperature 98.7 F 98.6 F Pulse Rate 66 68 Respiratory 12 13 Rate Blood Pressure 130/66 136/79 O2 Sat by Pulse 96 Oximetry (%) 07/25/19 07/25/19 10:00 12:00 Temperature 98.5 F 98.4 F Pulse Rate 98 H 76 Respiratory 20 31 H Rate Blood Pressure 150/74 153/74 O2 Sat by Pulse Oximetry (%) GENERAL: Awake, alert, and fully oriented, in no acute distress. HEAD: Normal with no signs of trauma. EYES: Pupils equal, round and reactive to light, extraocular movements intact, sclera anicteric, conjunctiva clear. No lid lag. EARS, NOSE, THROAT: Ears normal, nares patent, oropharynx clear without exudates. Moist mucous membranes. NECK: Normal range of motion, supple without lymphadenopathy, JVD, or masses. LUNGS: Breath sounds equal, clear to auscultation bilaterally. No wheezes, and no crackles. No accessory muscle use. HEART: Regular rate and rhythm, normal S1 and S2 without murmur, rub or gallop. ABDOMEN: Soft, nontender, not distended, normoactive bowel sounds, no guarding, no rebound, no masses. No hepatomegaly or splenomegaly. MUSCULOSKELETAL: Normal range of motion at all joints. No bony deformities or tenderness. No CVA tenderness. UPPER EXTREMITIES: 2+ pulses, warm, well-perfused. No cyanosis. No clubbing. Cap refill <2 seconds. No peripheral edema. LOWER EXTREMITIES: 2+ pulses, warm, well-perfused. No calf tenderness. No peripheral edema. NEUROLOGICAL: Cranial nerves II-XII intact. Normal speech. Normal gait. PSYCHIATRIC: Cooperative. Good eye contact. Appropriate mood and affect. SKIN: Warm, dry, normal turgor, no rashes or lesions noted. Laboratory Results - last 24 hr 07/24/19 07/24/19 07/25/19 16:55 23:03 05:12 WBC RBC Hgb Hct MCV MCH MCHC RDW Plt Count MPV Absolute Neuts (auto) Neutrophils % Neutrophils % (Manual) Band Neutrophils % Lymphocytes % Lymphocytes % (Manual) Monocytes % Monocytes % (Manual) Eosinophils % Eosinophils % (Manual) Basophils % Basophils % (Manual) Myelocytes % (Man) Promyelocytes % (Man) Blast Cells % (Manual) Nucleated RBC % Metamyelocytes Hypochromia Platelet Estimate Polychromasia Poikilocytosis Anisocytosis Microcytosis Macrocytosis Ovalocytes Baljit Cells Sodium Potassium Chloride Carbon Dioxide Anion Gap BUN Creatinine Est GFR (CKD-EPI)AfAm Est GFR (CKD-EPI)NonAf POC Glucometer 126 122 107 Random Glucose Calcium Phosphorus Magnesium Creatine Kinase Blood Type Antibody Screen 07/25/19 07/25/19 07/25/19 05:15 05:15 09:50 WBC 10.9 H RBC 2.71 L Hgb 7.5 L Hct 22.1 L MCV 81.3 MCH 27.5 MCHC 33.8 RDW 18.9 H Plt Count 173 MPV 8.8 Absolute Neuts (auto) 10.0 H Neutrophils % 91.8 H Neutrophils % (Manual) 87.0 H Band Neutrophils % 0.0 Lymphocytes % 2.5 L D Lymphocytes % (Manual) 1.0 L Monocytes % 5.6 Monocytes % (Manual) 11 H D Eosinophils % 0.0 Eosinophils % (Manual) 0.0 Basophils % 0.1 Basophils % (Manual) 0.0 Myelocytes % (Man) 0 Promyelocytes % (Man) 0 Blast Cells % (Manual) 0 Nucleated RBC % 0 Metamyelocytes 0 Hypochromia 1+ Platelet Estimate Normal Polychromasia 1+ Poikilocytosis 2+ Anisocytosis 2+ Microcytosis 2+ Macrocytosis 0 Ovalocytes 1+ Baljit Cells 2+ Sodium 142 Potassium 3.5 Chloride 112 H Carbon Dioxide 18 L Anion Gap 12 BUN 106.2 H* Creatinine 4.8 H Est GFR (CKD-EPI)AfAm 11.89 Est GFR (CKD-EPI)NonAf 10.26 POC Glucometer Random Glucose 115 H Calcium 7.5 L Phosphorus 5.2 H Magnesium 2.6 H Creatine Kinase 135 Blood Type A POSITIVE Antibody Screen Negative 07/25/19 11:01 WBC RBC Hgb Hct MCV MCH MCHC RDW Plt Count MPV Absolute Neuts (auto) Neutrophils % Neutrophils % (Manual) Band Neutrophils % Lymphocytes % Lymphocytes % (Manual) Monocytes % Monocytes % (Manual) Eosinophils % Eosinophils % (Manual) Basophils % Basophils % (Manual) Myelocytes % (Man) Promyelocytes % (Man) Blast Cells % (Manual) Nucleated RBC % Metamyelocytes Hypochromia Platelet Estimate Polychromasia Poikilocytosis Anisocytosis Microcytosis Macrocytosis Ovalocytes Baljit Cells Sodium Potassium Chloride Carbon Dioxide Anion Gap BUN Creatinine Est GFR (CKD-EPI)AfAm Est GFR (CKD-EPI)NonAf POC Glucometer 181 Random Glucose Calcium Phosphorus Magnesium Creatine Kinase Blood Type Antibody Screen Active Medications Generic Name Dose Route Start Last Admin Trade Name Freq PRN Reason Stop Dose Admin Acetaminophen 650 mg 07/20/19 19:02 Tylenol - PO Q6H PRN PAIN LEVEL 6-10 Albuterol/Ipratropium 1 amp 07/23/19 05:35 07/23/19 20:44 Duoneb - NEB 1 amp RQID PRN Administration SHORT OF BREATH/WHEEZING Chlorhexidine Gluconate 1 applic 07/20/19 22:00 07/24/19 21:52 Hibiclens For Decolonization - TP 1 applic HS DINESH Administration Heparin Sodium (Porcine) 5,000 unit 07/20/19 22:00 07/25/19 09:20 Heparin - SQ 5,000 unit BID DINESH Administration Hydrocortisone Sodium Succinate 25 mg 07/25/19 11:32 Solu-Cortef - IVPUSH Q8H-IV DINESH Piperacillin Sod/Tazobactam 50 mls @ 100 mls/hr 07/21/19 18:00 07/25/19 09:20 Sod 2.25 gm/ Dextrose IVPB 100 mls/hr Q8H-IV DINESH Administration Protocol Insulin Aspart 1 vial 07/20/19 19:15 07/25/19 11:46 Novolog Vial Sliding Scale - SQ 2 units Q6HPO DINESH Administration Protocol Mupirocin 1 applic 07/20/19 22:00 07/25/19 09:21 Bactroban Ointment (For Decolonization) - NS 07/25/19 21:59 1 applic BID DINESH Administration Pantoprazole Sodium 40 mg 07/20/19 19:15 07/25/19 09:20 Protonix Iv IVPUSH 40 mg DAILY DINESH Administration ASSESSMENT/PLAN: 84YO M with PMH of COPD (baseline 2-3L O2), HFrEF, CAD, pacemaker (2014), DM, HLD, HTN GERD, and dementia. He presented to the ER from his NH after being found to be hypotensive 2/2 septic shock with LA of 7.6. Received 2L NS. L IJ CVC placed with Norepi was started. #Cardio - Echo (07/21): EF 30-35%, severe global hypokinesis of L ventricle - Trops 0.16 -> 0.14 downtrending - CVP monitoring, bolus if below goal 8-12 - Norepi 5mcg/HR, MAP goal 65 - L IJ CVC (07/20) for refractory hypotension - Hold HTN meds d/t hypotension #Pulmonary - Increasingly tachypnic overnight - Started on BiPAP, taken off this morning - Currently on Hi Flow 40% O2 - CXR: mild central congestive changes and bibasilar atelectasis/infiltrates - CT chest 07/20 shows severe COPD changes w bulla, RLL consolidation/ atelectasis, trace R pleural fluid - Duonebs, hold spiriva #ID - WBC 5.5 -> 10.8 -> 10.8 - LA 7.4 -> 1.8 - Hydrocortisone 100mg Q8H - Zosyn 07/21 #GI - CT AP (07/20): Extensive diverticulosis of entire colon w inflammation of sigmoid colon, cecum. 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 I reviewed the resident's note and discussed the case with the resident. I agree with the resident's findings and plan as documented. SUBJECTIVE: OBJECTIVE: ASSESSMENT AND PLAN:
--- NOTE | 2019-07-25 14:50 | PN ---
Progress Note, Physician History of Present Illness: AWAKE BUT CONFUSED BREATHING NON-LABORED ON HIGH FLOW O2 AFEBRILE - Current Medication List Current Medications: Active Medications Acetaminophen (Tylenol -) 650 mg PO Q6H PRN PRN Reason: PAIN LEVEL 6-10 Albuterol/Ipratropium (Duoneb -) 1 amp NEB RQID PRN PRN Reason: SHORT OF BREATH/WHEEZING Last Admin: 07/23/19 20:44 Dose: 1 amp Chlorhexidine Gluconate (Hibiclens For Decolonization -) 1 applic TP HS DINESH Last Admin: 07/24/19 21:52 Dose: 1 applic Heparin Sodium (Porcine) (Heparin -) 5,000 unit SQ BID DINESH Last Admin: 07/25/19 09:20 Dose: 5,000 unit Hydrocortisone Sodium Succinate (Solu-Cortef -) 25 mg IVPUSH Q8H-IV DINESH Piperacillin Sod/Tazobactam (Sod 2.25 gm/ Dextrose) 50 mls @ 100 mls/hr IVPB Q8H-IV DINESH; Protocol Last Admin: 07/25/19 09:20 Dose: 100 mls/hr Insulin Aspart (Novolog Vial Sliding Scale -) 1 vial SQ Q6HPO DINESH; Protocol Last Admin: 07/25/19 11:46 Dose: 2 units Mupirocin (Bactroban Ointment (For Decolonization) -) 1 applic NS BID [facility] Stop: 07/25/19 21:59 Last Admin: 07/25/19 09:21 Dose: 1 applic Pantoprazole Sodium (Protonix Iv) 40 mg IVPUSH DAILY [facility] Last Admin: 07/25/19 09:20 Dose: 40 mg - Objective Vital Signs: Vital Signs Temperature 98.4 F 07/25/19 12:00 Pulse Rate 76 07/25/19 12:00 Respiratory Rate 31 H 07/25/19 12:00 Blood Pressure 153/74 07/25/19 12:00 O2 Sat by Pulse Oximetry (%) 96 07/25/19 08:13 Constitutional: Yes: No Distress Cardiovascular: Yes: Regular Rate and Rhythm, S1, S2 Respiratory: Yes: Other (+ RALES L BASE) Gastrointestinal: Yes: Normal Bowel Sounds, Soft. No: Tenderness Labs: CBC, BMP 07/25/19 05:15 07/25/19 05:15 INR, PTT INR 1.44 (0.83-1.09) H 07/20/19 15:00 Assessment/Plan SEPTIC SHOCK IMPROVED COPD EXACERBATION PNEUMONIA ?DIVERTICULITIS RENAL FAILURE QUINOLONE ALLERGY OBS CONTINUE EMPIRIC ZOSYN, ADJUSTED FOR RENAL FAILURE
--- NOTE | 2019-07-25 15:21 | PN ---
Physical Exam: SUBJECTIVE: Patient seen and examined NAEON. Had large loose BM Denies abdominal pain. On Hi-Flow(20L). OBJECTIVE: Vital Signs Period Temp Pulse Resp BP Sys/Mata Pulse Ox Last 24 Hr 98 F-98.7 F 60-98 12-34 95-153/54-79 95-98 GENERAL: somnolent but arouseablee, oriented to self, year, president. HEAD: NC/AT, no hematomas noted, no facial lac noted EYES: sclera anicteric, mildly pale conjunctiva EARS, NOSE, THROAT: Ears normal, nares patent. Moist mucous membranes. Poor dentition NECK: no cervical LAD. Left TLC in place LUNGS: CTA bilaterally. No wheezes, and no crackles. No accessory muscle use. Hi -Flow NC 20L HEART: Regular rate and rhythm, normal S1 and S2 without murmur, rub or gallop. Left chest wall w/ palpable PPM, no overlying erythema. ABDOMEN: Right subcostal incisional scar. Right-sided subcostal bulge +20cm in size. ND. Mild tenderness with deep palpation to RUQ, and LLQ. MUSCULOSKELETAL: No bony deformities or tenderness. No skin tears, or ecchymosis at extremities. Long, yellowed fingernails/toenails UPPER EXTREMITIES: 2+ pulses, warm, well-perfused. No cyanosis. No clubbing. No peripheral edema. Cool extremities LOWER EXTREMITIES: 2+ pulses, warm, well-perfused. No calf tenderness. No peripheral edema. Cool extremities NEUROLOGICAL: follows commands. 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 Moves fingers and toes on command SKIN: dry, cool extremities Laboratory Results - last 24 hr 07/24/19 07/24/19 07/25/19 16:55 23:03 05:12 WBC RBC Hgb Hct MCV MCH MCHC RDW Plt Count MPV Absolute Neuts (auto) Neutrophils % Neutrophils % (Manual) Band Neutrophils % Lymphocytes % Lymphocytes % (Manual) Monocytes % Monocytes % (Manual) Eosinophils % Eosinophils % (Manual) Basophils % Basophils % (Manual) Myelocytes % (Man) Promyelocytes % (Man) Blast Cells % (Manual) Nucleated RBC % Metamyelocytes Hypochromia Platelet Estimate Polychromasia Poikilocytosis Anisocytosis Microcytosis Macrocytosis Ovalocytes Baljit Cells Sodium Potassium Chloride Carbon Dioxide Anion Gap BUN Creatinine Est GFR (CKD-EPI)AfAm Est GFR (CKD-EPI)NonAf POC Glucometer 126 122 107 Random Glucose Calcium Phosphorus Magnesium Creatine Kinase Blood Type Antibody Screen 07/25/19 07/25/19 07/25/19 05:15 05:15 09:50 WBC 10.9 H RBC 2.71 L Hgb 7.5 L Hct 22.1 L MCV 81.3 MCH 27.5 MCHC 33.8 RDW 18.9 H Plt Count 173 MPV 8.8 Absolute Neuts (auto) 10.0 H Neutrophils % 91.8 H Neutrophils % (Manual) 87.0 H Band Neutrophils % 0.0 Lymphocytes % 2.5 L D Lymphocytes % (Manual) 1.0 L Monocytes % 5.6 Monocytes % (Manual) 11 H D Eosinophils % 0.0 Eosinophils % (Manual) 0.0 Basophils % 0.1 Basophils % (Manual) 0.0 Myelocytes % (Man) 0 Promyelocytes % (Man) 0 Blast Cells % (Manual) 0 Nucleated RBC % 0 Metamyelocytes 0 Hypochromia 1+ Platelet Estimate Normal Polychromasia 1+ Poikilocytosis 2+ Anisocytosis 2+ Microcytosis 2+ Macrocytosis 0 Ovalocytes 1+ Baljit Cells 2+ Sodium 142 Potassium 3.5 Chloride 112 H Carbon Dioxide 18 L Anion Gap 12 BUN 106.2 H* Creatinine 4.8 H Est GFR (CKD-EPI)AfAm 11.89 Est GFR (CKD-EPI)NonAf 10.26 POC Glucometer Random Glucose 115 H Calcium 7.5 L Phosphorus 5.2 H Magnesium 2.6 H Creatine Kinase 135 Blood Type A POSITIVE Antibody Screen Negative 07/25/19 11:01 WBC RBC Hgb Hct MCV MCH MCHC RDW Plt Count MPV Absolute Neuts (auto) Neutrophils % Neutrophils % (Manual) Band Neutrophils % Lymphocytes % Lymphocytes % (Manual) Monocytes % Monocytes % (Manual) Eosinophils % Eosinophils % (Manual) Basophils % Basophils % (Manual) Myelocytes % (Man) Promyelocytes % (Man) Blast Cells % (Manual) Nucleated RBC % Metamyelocytes Hypochromia Platelet Estimate Polychromasia Poikilocytosis Anisocytosis Microcytosis Macrocytosis Ovalocytes Baljit Cells Sodium Potassium Chloride Carbon Dioxide Anion Gap BUN Creatinine Est GFR (CKD-EPI)AfAm Est GFR (CKD-EPI)NonAf POC Glucometer 181 Random Glucose Calcium Phosphorus Magnesium Creatine Kinase Blood Type Antibody Screen Active Medications Generic Name Dose Route Start Last Admin Trade Name Mady PRN Reason Stop Dose Admin Acetaminophen 650 mg 07/20/19 19:02 Tylenol - PO Q6H PRN PAIN LEVEL 6-10 Albuterol/Ipratropium 1 amp 07/23/19 05:35 07/23/19 20:44 Duoneb - NEB 1 amp RQID PRN Administration SHORT OF BREATH/WHEEZING Chlorhexidine Gluconate 1 applic 07/20/19 22:00 07/24/19 21:52 Hibiclens For Decolonization - TP 1 applic HS DINESH Administration Heparin Sodium (Porcine) 5,000 unit 07/20/19 22:00 07/25/19 09:20 Heparin - SQ 5,000 unit BID DINESH Administration Hydrocortisone Sodium Succinate 25 mg 07/25/19 11:32 Solu-Cortef - IVPUSH Q8H-IV DINESH Piperacillin Sod/Tazobactam 50 mls @ 100 mls/hr 07/21/19 18:00 07/25/19 09:20 Sod 2.25 gm/ Dextrose IVPB 100 mls/hr Q8H-IV DINESH Administration Protocol Insulin Aspart 1 vial 07/20/19 19:15 07/25/19 11:46 Novolog Vial Sliding Scale - SQ 2 units Q6HPO DINESH Administration Protocol Mupirocin 1 applic 07/20/19 22:00 07/25/19 09:21 Bactroban Ointment (For Decolonization) - NS 07/25/19 21:59 1 applic BID DINESH Administration Pantoprazole Sodium 40 mg 07/20/19 19:15 07/25/19 09:20 Protonix Iv IVPUSH 40 mg DAILY DINESH Administration ASSESSMENT/PLAN: 84M w/ pmh of HTN, HLD, GERD, hearing deficits(worse in Right ear), ?dementia, COPD(home O2, chronic prednisone), PPM(implanted 2014), CAD(1997), HFrEF(global hypokinesis, May 2018). CT A/P showing possible diverticulitis of cecum and sigmoid, Right kidney staghorn calculus, Right inginal hernia. On IV abx(zosyn) . Elevated CPK possibly 2/2 rhabdomyolysis. # Septic Shock --2/2 to likely diverticulitis of cecum and sigmoid > initial T 102.3 > initial BP 61/41 --MAP >65 > lactic acid 7.4->2.3->1.8 > CT A/P: diverticuli + fat stranding of cecum and sigmoid, ascites - s/p LR x1L, NS x2L - s/p Left IJ TLC --removed - s/p Left IJ TLC(07/25/19 - ) - pressors: levophd gtt(on 8mcg) --dc'd - stres-dose steroids: Solu-Cortef 100mg q8h -> 50mg q6h ->50mg q8h -->25mg q8h - IVF --dc'd by ICU - empiric Zosyn(for diverticulitis and probable PNA) # acute on chronic abdominal pain --possibly hernial pain vs diverticulitis -- symptomatically resovling > FOBT neg > CT A/P --probable diverticulitis - zosyn - outpt c-scope in 6-8wks # unwitnessed fall --possible mechanical vs syncope # r/o rhabdomylsis --resolved > CT H --neg > CPK 3571 -> 1635 ->901 --> 135 - PT when stable # h/o CAD(1997) # troponinemia --possibly 2/2 to LAURA/CKD --stablized > Trop 0.06, 0.13, 0.15, 0.16, 0.14 > ECG - Ventricular paced rhythm with no St/T wave abnormalities. > CXR - Cardiomegaly, no pulmonary vascular congestion # LAURA vs CKD --possibly 2/2 sepsis/shock --worsening Cr > Cr ~ 3.9, 3.7, 4.1, 4.5, 4.8 -->4.9; baseline Cr ~2.0 > CT A/P: right kidney staghorn calculi > US renal(07/22/19): small right Right kidney w/ nonobstructing stone, Left kidney no visualized - Consult Nephro: --avoid nephrotoxins --defer HD for another day as UOP has increased --repeat UA --IVF TKO # Respiratory needs 2/2 COPD (on home O2, chronically on steroids) > CT chest: mod-severe COPD w/ Right basilar consolidation/ateletasis and trace pleural effusion - O2 needs: high-todd - duonebs PRN - cw stress-dose steroids # NIDDM(reported to be not a diabetic) - BGM + ISS q6h # protein malnutrition > Alb 2.0 -->1.8 - encourage diet # chronic HLD - hold Statin until resolving CK, improved clinical picture # chronic HTN --currently normotensive w/o home meds - held anti-hypertensive medications d/t shock # Chronic HFrEF > Echo(May 2018): global hypokinesis - hold home BB, MONE-I, Torsemide until resolution of acute issues # Acute Hyperkalemia --resolved > K ~5.2 ->4.2 ->3.8 -->3.5 - fu lytes FEN - Diet: S&S: Dysphagia Pureed, nectar thick - off mIVF - replete lytes PRN GI PPx - pantoprazole 40mg IVP DVT PPx - Heparin SQ Visit type - Emergency Visit Emergency Visit: No - New Patient This patient is new to me today: No - Critical Care Critical Care patient: Yes Total Critical Care Time (in minutes): 20 ATTENDING PHYSICIAN STATEMENT I saw and evaluated the patient. I reviewed the resident's note and discussed the case with the resident. I agree with the resident's findings and plan as documented. SUBJECTIVE: OBJECTIVE: ASSESSMENT AND PLAN:
--- NOTE | 2019-07-25 15:28 | PN ---
Progress Note, ADVANCED [employer]ACTICE PROFESSIONAL - Note Progress Note: Pt seen at bedside for follow up to swallow eval with recommendations for pureed solids with nectar thicken liquids. Chart review indicates pt is consuming approximately 50% of meals with no overt s/s aspiration at this time. slip operator reports good intake. Recommendation: Continue po intake of pureed solids with nectar thicken liquids at tolerated. Observe standard aspiration precautions. Provide oral care before and after meals. Provide oral care after meal. Results given verbally to nurse charge rn and PCP via chart. ADVANCED PRACTICE PROFESSIONAL to follow up for diet tolerance.
[2019-07-25 16:36] LABS: CALCIUM 7.6 mg/dL (8.5-10.1); CREATININE 4.8 mg/dL (0.55-1.3); POTASSIUM 3.6 mmol/L (3.5-5.1)
[2019-07-25 16:52] LABS: BLOOD UREA NITROGEN 104.3 mg/dL (7-18)
[2019-07-25 17:05] LABS: HEMATOCRIT 23.5 % (35.4-49); HEMOGLOBIN 7.7 GM/dL (11.7-16.9); MCHC 32.8 g/dl (32.0-35.9); MEAN CELL VOLUME 82.4 fl (80-96); MEAN PLT VOLUME 8.8 fl (7.5-11.1); PLATELET COUNT 189 K/MM3 (134-434); RBC 2.85 M/mm3 (4.00-5.60); RDW 18.8 % (11.9-15.9); WHITE BLOOD COUNT 10.9 K/mm3 (4.0-10.0)
--- NOTE | 2019-07-25 17:16 | PN ---
Physical Exam: SUBJECTIVE: Patient seen and examined. No acute events overnight. Pt non verbal this morning. No gross bleeding noted. OBJECTIVE: Vital Signs Period Temp Pulse Resp BP Sys/Mata Pulse Ox Last 24 Hr 98.1 F-98.7 F 60-98 12-31 95-153/54-79 95-98 GENERAL: The patient is awake, in no acute distress. LUNGS: Reduced breath sounds, no wheezes, no crackles, no accessory muscle use. HEART: Regular rate and rhythm, S1, S2 without murmur, rub or gallop. ABDOMEN: Soft, nontender, nondistended, normoactive bowel sounds, no guarding, no rebound, no hepatosplenomegaly, no masses. EXTREMITIES: warm, well-perfused, no edema. NEUROLOGICAL: Non-verbal this morning. Responds to verbal stimuli Laboratory Results - last 24 hr 07/24/19 07/25/19 07/25/19 23:03 05:12 05:15 WBC 10.9 H RBC 2.71 L Hgb 7.5 L Hct 22.1 L MCV 81.3 MCH 27.5 MCHC 33.8 RDW 18.9 H Plt Count 173 MPV 8.8 Absolute Neuts (auto) 10.0 H Neutrophils % 91.8 H Neutrophils % (Manual) 87.0 H Band Neutrophils % 0.0 Lymphocytes % 2.5 L D Lymphocytes % (Manual) 1.0 L Monocytes % 5.6 Monocytes % (Manual) 11 H D Eosinophils % 0.0 Eosinophils % (Manual) 0.0 Basophils % 0.1 Basophils % (Manual) 0.0 Myelocytes % (Man) 0 Promyelocytes % (Man) 0 Blast Cells % (Manual) 0 Nucleated RBC % 0 Metamyelocytes 0 Hypochromia 1+ Platelet Estimate Normal Polychromasia 1+ Poikilocytosis 2+ Anisocytosis 2+ Microcytosis 2+ Macrocytosis 0 Ovalocytes 1+ Baljit Cells 2+ Sodium Potassium Chloride Carbon Dioxide Anion Gap BUN Creatinine Est GFR (CKD-EPI)AfAm Est GFR (CKD-EPI)NonAf POC Glucometer 122 107 Random Glucose Calcium Phosphorus Magnesium Creatine Kinase Blood Type Antibody Screen 07/25/19 07/25/19 07/25/19 05:15 09:50 11:01 WBC RBC Hgb Hct MCV MCH MCHC RDW Plt Count MPV Absolute Neuts (auto) Neutrophils % Neutrophils % (Manual) Band Neutrophils % Lymphocytes % Lymphocytes % (Manual) Monocytes % Monocytes % (Manual) Eosinophils % Eosinophils % (Manual) Basophils % Basophils % (Manual) Myelocytes % (Man) Promyelocytes % (Man) Blast Cells % (Manual) Nucleated RBC % Metamyelocytes Hypochromia Platelet Estimate Polychromasia Poikilocytosis Anisocytosis Microcytosis Macrocytosis Ovalocytes [place] Cells Sodium 142 Potassium 3.5 Chloride 112 H Carbon Dioxide 18 L Anion Gap 12 BUN 106.2 H* Creatinine 4.8 H Est GFR (CKD-EPI)AfAm 11.89 Est GFR (CKD-EPI)NonAf 10.26 POC Glucometer 181 Random Glucose 115 H Calcium 7.5 L Phosphorus 5.2 H Magnesium 2.6 H Creatine Kinase 135 Blood Type A POSITIVE Antibody Screen Negative 07/25/19 07/25/19 15:30 16:50 WBC 10.9 H RBC 2.85 L Hgb 7.7 L Hct 23.5 L MCV 82.4 MCH 27.0 MCHC 32.8 RDW 18.8 H Plt Count 189 MPV 8.8 Absolute Neuts (auto) Neutrophils % Neutrophils % (Manual) Band Neutrophils % Lymphocytes % Lymphocytes % (Manual) Monocytes % Monocytes % (Manual) Eosinophils % Eosinophils % (Manual) Basophils % Basophils % (Manual) Myelocytes % (Man) Promyelocytes % (Man) Blast Cells % (Manual) Nucleated RBC % Metamyelocytes Hypochromia Platelet Estimate Polychromasia Poikilocytosis Anisocytosis Microcytosis Macrocytosis Ovalocytes Baljit Cells Sodium 144 Potassium 3.6 Chloride 113 H Carbon Dioxide 18 L Anion Gap 13 BUN 104.3 H* Creatinine 4.8 H Est GFR (CKD-EPI)AfAm 11.89 Est GFR (CKD-EPI)NonAf 10.26 POC Glucometer Random Glucose 149 H Calcium 7.6 L Phosphorus Magnesium Creatine Kinase Blood Type Antibody Screen Active Medications Generic Name Dose Route Start Last Admin Trade Name Freq PRN Reason Stop Dose Admin Acetaminophen 650 mg 07/20/19 19:02 Tylenol - PO Q6H PRN PAIN LEVEL 6-10 Albuterol/Ipratropium 1 amp 07/23/19 05:35 07/23/19 20:44 Duoneb - NEB 1 amp RQID PRN Administration SHORT OF BREATH/WHEEZING Chlorhexidine Gluconate 1 applic 07/20/19 22:00 07/24/19 21:52 Hibiclens For Decolonization - TP 1 applic HS DINESH Administration Heparin Sodium (Porcine) 5,000 unit 07/20/19 22:00 07/25/19 09:20 Heparin - SQ 5,000 unit BID DINESH Administration Hydrocortisone Sodium Succinate 25 mg 07/25/19 11:32 Solu-Cortef - IVPUSH Q8H-IV DINESH Piperacillin Sod/Tazobactam 50 mls @ 100 mls/hr 07/21/19 18:00 07/25/19 09:20 Sod 2.25 gm/ Dextrose IVPB 100 mls/hr Q8H-IV DINESH Administration Protocol Insulin Aspart 1 vial 07/20/19 19:15 07/25/19 11:46 Novolog Vial Sliding Scale - SQ 2 units Q6HPO DINESH Administration Protocol Mupirocin 1 applic 07/20/19 22:00 07/25/19 09:21 Bactroban Ointment (For Decolonization) - NS 07/25/19 21:59 1 applic BID DINESH Administration Pantoprazole Sodium 40 mg 07/20/19 19:15 07/25/19 09:20 Protonix Iv IVPUSH 40 mg DAILY DINESH Administration ASSESSMENT/PLAN: 84yM with PMHx of COPD (baseline 2-3L O2), HFrEF, CAD, pacemaker (2014), DM, HLD , HTN, CKD, GERD, and dementia presenting from NH with hypotension 2/2 septic shock d/t PNA vs acute diverticulitis #Cardio - hypotension off levophed - Echo (07/21): EF 30-35%, severe global hypokinesis of L ventricle - L IJ CVC (07/20) placed for refractory hypotension - Holding HTN meds d/t hypotension - DVT ppx #Pulmonary - On Hi Flow 45 RR/ 40% O2, wean as tolerated - pending CXR 07/26 - CT chest 07/20 showed severe COPD changes w bulla, RLL consolidation/ atelectasis, trace R pleural fluid - Duonebs, holding home Spiriva #ID - leukocytosis - stable WBC 10.5 to 10.9 - weaned 50 to 25mg hydrocortisone q8h - Zosyn started 07/21 #GI - CT AP (07/20): Extensive diverticulosis of entire colon w inflammation of sigmoid colon, cecum. Large R inguinal hernia containing fluid and nonobstructed bowel loops, calcific abdominal aorta - GI ppx - puree diet #Endo - hx DM - BGM, ISS #Renal - acute on chronic kidney injury (baseline 2.2) - stable Cr 4.8 vs yesterday - no dialysis today d/t pt making good urine per neph - CT AP (07/20): atrophic R kidney - I/O - gil in place - appreciate neph recs #Heme - anemia - downtrending Hgb drop 8.4 to 7.5 - repeat H&H, will transfuse if low #[employer] - hx syncope, dementia - CT Head (07/20) did not show acute bleed/infarct/fx - tylenol PRN pain #FEN - no fluids - hyperPhos, hyperMg, hyperCl - puree diet #PPX - Heparin SQ - protonix #Dispo - ICU Visit type - Emergency Visit Emergency Visit: Yes ED Registration Date: 07/20/19 Care time: The patient presented to the Emergency Department on the above date and was hospitalized for further evaluation of their emergent condition. - New Patient This patient is new to me today: No - Critical Care Critical Care patient: Yes Total Critical Care Time (in minutes): 35 Critical Care Statement: The care of this patient involved high complexity decision making to prevent further life threatening deterioration of the patient 's condition and/or to evaluate & treat vital organ system(s) failure or risk of failure. ATTENDING PHYSICIAN STATEMENT I saw and evaluated the patient. I reviewed the resident's note and discussed the case with the resident. I agree with the resident's findings and plan as documented. SUBJECTIVE: OBJECTIVE: ASSESSMENT AND PLAN:
[2019-07-25] MEDS: CHLORHEXIDINE GLUCONATE 4% CLEANSER FOR DECOLONIZATION TP SCH (22:53)
[2019-07-26] MEDS: INSULIN SLIDING SCALE (NOVOLOG) 1 VIAL SQ SCH ×5 (00:11→21:10)
[2019-07-26] MEDS ORDERED: DEXTROSE 5%-WATER - 50 ML IVPB ONE ×3 (01:56→17:15)
[2019-07-26] MEDS ORDERED: PIPERACILLIN/TAZOBACTAM 2.25 GM VIAL IVPB ONE ×3 (01:56→17:15)
[2019-07-26] MEDS: HYDROCORTISONE SOD SUCCINATE 100 MG/2 ML VIAL IVPUSH SCH ×3 (02:29→17:23)
[2019-07-26] MEDS: PIPERACILLIN/TAZOB 2.25 GM 2.25 GM in DEXTROSE 5%-WATER - 50 ML IVPB SCH ×2 (02:29→10:26)
[2019-07-26 06:23] LABS: BASO % 0.1 % (0-2.0); EOS % 1.1 % (0-4.5); HEMATOCRIT 26.5 % (35.4-49); HEMOGLOBIN 8.9 GM/dL (11.7-16.9); LYMPH % 2.6 % (8-40); MCH 27.5 pg (25.7-33.7); MCHC 33.6 g/dl (32.0-35.9); MEAN CELL VOLUME 81.9 fl (80-96); MEAN PLT VOLUME 8.9 fl (7.5-11.1); MONO % 4.7 % (3.8-10.2); NEUT % 91.5 % (42.8-82.8); PLATELET COUNT 205 K/MM3 (134-434); RBC 3.24 M/mm3 (4.00-5.60); RDW 17.7 % (11.9-15.9); WHITE BLOOD COUNT 12.7 K/mm3 (4.0-10.0)
[2019-07-26 06:52] LABS: ALBUMIN 1.8 g/dl (3.4-5.0); BILIRUBIN,TOTAL 0.6 mg/dL (0.2-1); BLOOD UREA NITROGEN 96.2 mg/dL (7-18); CALCIUM 7.3 mg/dL (8.5-10.1); CREATININE 4.5 mg/dL (0.55-1.3); MAGNESIUM 2.3 mg/dL (1.8-2.4); PHOSPHOROUS 4.3 mg/dL (2.5-4.9); POTASSIUM 3.2 mmol/L (3.5-5.1); TOT PROT 4.9 g/dl (6.4-8.2)
[2019-07-26] MEDS ORDERED: POTASSIUM CHLORIDE TABS 20 MEQ TABLET.ER (FP) PO ONE (08:22)
--- NOTE | 2019-07-26 08:56 | PN ---
Teaching Attending Note Name of Resident: Ross Thibodeaux ATTENDING PHYSICIAN STATEMENT I saw and evaluated the patient. I reviewed the resident's note and discussed the case with the resident. I agree with the resident's findings and plan as documented with exceptions below. SUBJECTIVE: Patient seen and examined. Limited participation. Unable to assess for ROS. OBJECTIVE: Vital Signs Period Temp Pulse Resp BP Sys/Mata Pulse Ox Last 24 Hr 97.9 F-98.6 F 65-98 12-31 126-157/59-79 96-97 Intake & Output 07/24/19 07/24/19 07/25/19 07/26/19 00:59 23:59 23:59 23:59 Intake Total 1215 550 Output Total 1200 350 Balance 15 200 Weight 147 lb 4.8 oz 146 lb 12.8 oz General: sitting in bed, use of accessory muscles of respiration Chest: decreased air entry all over Abdomen:soft, NT Extremities: no edema neck; Unable to appreciate JVD Home Medications Medication Instructions Recorded Amlodipine Besylate 10 mg PO DAILY 12/19/18 Aspirin Coated [Ecotrin -] 81 mg PO DAILY 12/19/18 Atorvastatin Ca [Lipitor] 20 mg PO HS 12/19/18 Carvedilol [Coreg -] 12.5 mg PO BID 12/19/18 Latanoprost/Pf [Latanoprost 0.005% 7.5 ml OP DAILY 12/19/18 Eye Drop] Losartan Potassium 100 mg PO DAILY 12/19/18 Pantoprazole Sodium 40 mg PO DAILY 12/19/18 Risperidone [Risperdal] 1 mg PO DAILY 12/19/18 Torsemide [Demadex -] 20 mg PO DAILY 12/19/18 predniSONE [Deltasone -] 10 mg PO ASDIR 10 Days #30 tablet 12/24/18 Cholecalciferol (Vitamin D3) 2,000 unit PO DAILY 07/21/19 [Vitamin D] Cyanocobalamin [Vitamin B12 -] 1,000 mcg PO DAILY 07/21/19 Active Medications Acetaminophen (Tylenol -) 650 mg PO Q6H PRN PRN Reason: PAIN LEVEL 6-10 Albuterol/Ipratropium (Duoneb -) 1 amp NEB RQID PRN PRN Reason: SHORT OF BREATH/WHEEZING Last Admin: 07/23/19 20:44 Dose: 1 amp Chlorhexidine Gluconate (Hibiclens For Decolonization -) 1 applic TP HS DINESH Last Admin: 07/25/19 22:53 Dose: 1 applic Heparin Sodium (Porcine) (Heparin -) 5,000 unit SQ BID DINESH Last Admin: 07/25/19 22:52 Dose: 5,000 unit Hydrocortisone Sodium Succinate (Solu-Cortef -) 25 mg IVPUSH Q8H-IV DINESH Last Admin: 07/26/19 02:29 Dose: 25 mg Piperacillin Sod/Tazobactam (Sod 2.25 gm/ Dextrose) 50 mls @ 100 mls/hr IVPB Q8H-IV DINESH; Protocol Last Admin: 07/26/19 02:29 Dose: 100 mls/hr Insulin Aspart (Novolog Vial Sliding Scale -) 1 vial SQ Q6HPO DINESH; Protocol Last Admin: 07/26/19 07:53 Dose: Not Given Pantoprazole Sodium (Protonix Iv) 40 mg IVPUSH DAILY DINESH Last Admin: 07/25/19 09:20 Dose: 40 mg Laboratory Results - last 24 hr 07/25/19 07/25/19 07/25/19 09:50 15:30 16:50 WBC 10.9 H RBC 2.85 L Hgb 7.7 L Hct 23.5 L MCV 82.4 MCH 27.0 MCHC 32.8 RDW 18.8 H Plt Count 189 MPV 8.8 Absolute Neuts (auto) Neutrophils % Neutrophils % (Manual) Band Neutrophils % Lymphocytes % Lymphocytes % (Manual) Monocytes % Monocytes % (Manual) Eosinophils % Eosinophils % (Manual) Basophils % Basophils % (Manual) Myelocytes % (Man) Promyelocytes % (Man) Blast Cells % (Manual) Nucleated RBC % Metamyelocytes Platelet Estimate Polychromasia Poikilocytosis Anisocytosis Microcytosis Macrocytosis Ovalocytes Sodium 144 Potassium 3.6 Chloride 113 H Carbon Dioxide 18 L Anion Gap 13 BUN 104.3 H* Creatinine 4.8 H Est GFR (CKD-EPI)AfAm 11.89 Est GFR (CKD-EPI)NonAf 10.26 POC Glucometer Random Glucose 149 H Calcium 7.6 L Phosphorus Magnesium Total Bilirubin AST ALT Alkaline Phosphatase Total Protein Albumin Blood Type A POSITIVE Antibody Screen Negative Crossmatch See Detail 07/25/19 07/25/19 07/26/19 17:29 23:25 05:30 WBC 12.7 H RBC 3.24 L Hgb 8.9 L Hct 26.5 L MCV 81.9 MCH 27.5 MCHC 33.6 RDW 17.7 H Plt Count 205 MPV 8.9 Absolute Neuts (auto) 11.6 H Neutrophils % 91.5 H Neutrophils % (Manual) 82.8 Band Neutrophils % 0.0 Lymphocytes % 2.6 L Lymphocytes % (Manual) 8.1 D Monocytes % 4.7 Monocytes % (Manual) 5 Eosinophils % 1.1 D Eosinophils % (Manual) 1.0 D Basophils % 0.1 Basophils % (Manual) 0.0 Myelocytes % (Man) 2 D Promyelocytes % (Man) 0 Blast Cells % (Manual) 0 Nucleated RBC % 0 Metamyelocytes 1 D Platelet Estimate Normal Polychromasia 1+ Poikilocytosis 1+ Anisocytosis 1+ Microcytosis 1+ Macrocytosis 0 Ovalocytes 1+ Sodium Potassium Chloride Carbon Dioxide Anion Gap BUN Creatinine Est GFR (CKD-EPI)AfAm Est GFR (CKD-EPI)NonAf POC Glucometer 145 228 Random Glucose Calcium Phosphorus Magnesium Total Bilirubin AST ALT Alkaline Phosphatase Total Protein Albumin Blood Type Antibody Screen Crossmatch 07/26/19 07/26/19 05:30 05:31 WBC RBC Hgb Hct MCV MCH MCHC RDW Plt Count MPV Absolute Neuts (auto) Neutrophils % Neutrophils % (Manual) Band Neutrophils % Lymphocytes % Lymphocytes % (Manual) Monocytes % Monocytes % (Manual) Eosinophils % Eosinophils % (Manual) Basophils % Basophils % (Manual) Myelocytes % (Man) Promyelocytes % (Man) Blast Cells % (Manual) Nucleated RBC % Metamyelocytes Platelet Estimate Polychromasia Poikilocytosis Anisocytosis Microcytosis Macrocytosis Ovalocytes Sodium 141 Potassium 3.2 L Chloride 110 H Carbon Dioxide 20 L Anion Gap 11 BUN 96.2 H Creatinine 4.5 H Est GFR (CKD-EPI)AfAm 12.85 Est GFR (CKD-EPI)NonAf 11.09 POC Glucometer 89 Random Glucose 85 Calcium 7.3 L Phosphorus 4.3 Magnesium 2.3 Total Bilirubin 0.6 AST 18 ALT 33 Alkaline Phosphatase 45 Total Protein 4.9 L Albumin 1.8 L Blood Type Antibody Screen Crossmatch ASSESSMENT AND PLAN: 84 yom with PMHx of HTN, HLD, GERD, hearing deficits(worse in Right ear), dementia, COPD(home O2, chronic prednisone), PPM(implanted 2014), CAD(1997), HFrEF(global hypokinesis, May 2018) brought after found down down at home -Septic shock due to Diverticulitis+/- LLL PNA -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 Non oliguric, renal function with some improvement. Discuss with renal about trial with lasix Monitor respiratory status close. taper steroids. Zosyn per ID. Culture neg so far. Speech/swallow input noted. resume coreg/amlodipine as hemodynamics tolerate. Hold statin for now, resume in 24-48 hours if CPK normal. DVTPPX Heparin Dispo agree with transfer to telemetry if continues to improve. Discussed with nursing. Critical Care Total Critical Care Time (in minutes): 36 Critical Care Statement: The care of this patient involved high complexity decision making to prevent further life threatening deterioration of the patient 's condition and/or to evaluate & treat vital organ system(s) failure or risk of failure.
[2019-07-26] MEDS ORDERED: predniSONE 10 MG TABLET (UD) PO SCH (10:00)
[2019-07-26 10:07] LABS: ANISOCYTOSIS 1+; MACROCYTOSIS 0; OVALOCYTE 1+; PLATELET ESTIMATE NORMAL
[2019-07-26] MEDS ORDERED: PT OWN MED DRAWER 7, Y5N ONE (10:24)
[2019-07-26] MEDS: HEPARIN NA (PORCINE) 5,000 UNITS/ML 1ML VIAL SQ SCH ×2 (10:26→21:10)
[2019-07-26] MEDS: PANTOPRAZOLE SODIUM 40 MG VIAL IVPUSH SCH (10:26)
--- NOTE | 2019-07-26 11:46 | PN ---
Teaching Attending Note Name of Resident: Meme Sena ATTENDING PHYSICIAN STATEMENT I saw and evaluated the patient. I reviewed the resident's note and discussed the case with the resident. I agree with the resident's findings and plan as documented. SUBJECTIVE: Patient seen and examined in the ICU. Awake and interactive but confused ( apparently at baseline). Remains on HFOT. Intake & Output 07/24/19 07/24/19 07/25/19 07/26/19 00:59 23:59 23:59 23:59 Intake Total 1215 550 Output Total 1200 350 Balance 15 200 Weight 147 lb 4.8 oz 146 lb 12.8 oz Last Vital Signs Temp Pulse Resp BP Pulse Ox 98.3 F 72 22 H 147/78 96 07/26/19 06:00 07/26/19 07:59 07/26/19 07:59 07/26/19 07:59 07/26/19 07:56 Active Medications Acetaminophen (Tylenol -) 650 mg PO Q6H PRN PRN Reason: PAIN LEVEL 6-10 Albuterol/Ipratropium (Duoneb -) 1 amp NEB RQID PRN PRN Reason: SHORT OF BREATH/WHEEZING Last Admin: 07/23/19 20:44 Dose: 1 amp Chlorhexidine Gluconate (Hibiclens For Decolonization -) 1 applic TP HS DINESH Last Admin: 07/25/19 22:53 Dose: 1 applic Heparin Sodium (Porcine) (Heparin -) 5,000 unit SQ BID DINESH Last Admin: 07/26/19 10:26 Dose: 5,000 unit Hydrocortisone Sodium Succinate (Solu-Cortef -) 25 mg IVPUSH Q8H-IV DINESH Last Admin: 07/26/19 10:26 Dose: 25 mg Piperacillin Sod/Tazobactam (Sod 2.25 gm/ Dextrose) 50 mls @ 100 mls/hr IVPB Q8H-IV DINESH; Protocol Last Admin: 07/26/19 10:26 Dose: 100 mls/hr Insulin Aspart (Novolog Vial Sliding Scale -) 1 vial SQ Q6HPO DINESH; Protocol Last Admin: 07/26/19 07:53 Dose: Not Given Pantoprazole Sodium (Protonix Iv) 40 mg IVPUSH DAILY DINESH Last Admin: 07/26/19 10:26 Dose: 40 mg Gen: Awake on HFOT, confused, mildly tachypneic at rest Heart: RRR, paced Lung: decreased breath sounds at the bases, bilateral scattered rhonchi, no wheeze Abd: soft, NT, (+) BS, no rebound Ext: Trace edema Laboratory Results - last 24 hr 07/25/19 07/25/19 07/25/19 09:50 15:30 16:50 WBC 10.9 H RBC 2.85 L Hgb 7.7 L Hct 23.5 L MCV 82.4 MCH 27.0 MCHC 32.8 RDW 18.8 H Plt Count 189 MPV 8.8 Absolute Neuts (auto) Neutrophils % Neutrophils % (Manual) Band Neutrophils % Lymphocytes % Lymphocytes % (Manual) Monocytes % Monocytes % (Manual) Eosinophils % Eosinophils % (Manual) Basophils % Basophils % (Manual) Myelocytes % (Man) Promyelocytes % (Man) Blast Cells % (Manual) Nucleated RBC % Metamyelocytes Platelet Estimate Polychromasia Poikilocytosis Anisocytosis Microcytosis Macrocytosis Ovalocytes Sodium 144 Potassium 3.6 Chloride 113 H Carbon Dioxide 18 L Anion Gap 13 BUN 104.3 H* Creatinine 4.8 H Est GFR (CKD-EPI)AfAm 11.89 Est GFR (CKD-EPI)NonAf 10.26 POC Glucometer Random Glucose 149 H Calcium 7.6 L Phosphorus Magnesium Total Bilirubin AST ALT Alkaline Phosphatase Total Protein Albumin Blood Type A POSITIVE Antibody Screen Negative Crossmatch See Detail 07/25/19 07/25/19 07/26/19 17:29 23:25 05:30 WBC 12.7 H RBC 3.24 L Hgb 8.9 L Hct 26.5 L MCV 81.9 MCH 27.5 MCHC 33.6 RDW 17.7 H Plt Count 205 MPV 8.9 Absolute Neuts (auto) 11.6 H Neutrophils % 91.5 H Neutrophils % (Manual) 82.8 Band Neutrophils % 0.0 Lymphocytes % 2.6 L Lymphocytes % (Manual) 8.1 D Monocytes % 4.7 Monocytes % (Manual) 5 Eosinophils % 1.1 D Eosinophils % (Manual) 1.0 D Basophils % 0.1 Basophils % (Manual) 0.0 Myelocytes % (Man) 2 D Promyelocytes % (Man) 0 Blast Cells % (Manual) 0 Nucleated RBC % 0 Metamyelocytes 1 D Platelet Estimate Normal Polychromasia 1+ Poikilocytosis 1+ Anisocytosis 1+ Microcytosis 1+ Macrocytosis 0 Ovalocytes 1+ Sodium Potassium Chloride Carbon Dioxide Anion Gap BUN Creatinine Est GFR (CKD-EPI)AfAm Est GFR (CKD-EPI)NonAf POC Glucometer 145 228 Random Glucose Calcium Phosphorus Magnesium Total Bilirubin AST ALT Alkaline Phosphatase Total Protein Albumin Blood Type Antibody Screen Crossmatch 07/26/19 07/26/19 05:30 05:31 WBC RBC Hgb Hct MCV MCH MCHC RDW Plt Count MPV Absolute Neuts (auto) Neutrophils % Neutrophils % (Manual) Band Neutrophils % Lymphocytes % Lymphocytes % (Manual) Monocytes % Monocytes % (Manual) Eosinophils % Eosinophils % (Manual) Basophils % Basophils % (Manual) Myelocytes % (Man) Promyelocytes % (Man) Blast Cells % (Manual) Nucleated RBC % Metamyelocytes Platelet Estimate Polychromasia Poikilocytosis Anisocytosis Microcytosis Macrocytosis Ovalocytes Sodium 141 Potassium 3.2 L Chloride 110 H Carbon Dioxide 20 L Anion Gap 11 BUN 96.2 H Creatinine 4.5 H Est GFR (CKD-EPI)AfAm 12.85 Est GFR (CKD-EPI)NonAf 11.09 POC Glucometer 89 Random Glucose 85 Calcium 7.3 L Phosphorus 4.3 Magnesium 2.3 Total Bilirubin 0.6 AST 18 ALT 33 Alkaline Phosphatase 45 Total Protein 4.9 L Albumin 1.8 L Blood Type Antibody Screen Crossmatch ASSESSMENT AND PLAN: Suspected Pneumonia r/o Acute Diverticulitis Septic Shock - resolved CAD/+Troponins likely [place]and Ischemia Metabolic Acidosis Acute on Chronic Renal Failure COPD Chronic Hypoxic Respiratory Failure LV Systolic Dysfunction HTN DM Dementia - ABX per ID - PO as tolerated - Monitor urine output, creatinine - Wean HFOT to VM O2 as tolerated - Wean steroids - Inhaled bronchodilators - DVT/GI prophylaxis - Cardiac Telemetry monitoring Dr Masters
--- NOTE | 2019-07-26 12:19 | PN ---
Physical Exam: SUBJECTIVE: Patient seen and examined at bedside this morning. Unable to follow commands. AAOx0. Asking for water. OBJECTIVE: Vital Signs Period Temp Pulse Resp BP Sys/Mata Pulse Ox Last 24 Hr 97.9 F-98.6 F 65-86 12-28 126-157/59-79 96-97 GENERAL: AAOx0 HEAD: Normal with no signs of trauma. EYES: PERRL, EOMI, cataracts bilaterally ENT: dry mucous membranes LUNGS: decreased breath sounds, no wheezing, rales, or rhonchi HEART: RRR, no murmurs ABDOMEN: Soft, nontender, nondistended, normoactive bowel sounds, no guarding, no rebound EXTREMITIES: 2+ pulses, warm, well-perfused, no edema. PSYCH: demented SKIN: diffuse fungal rash noted on arms and groin Laboratory Results - last 24 hr 07/25/19 07/25/19 07/25/19 09:50 15:30 16:50 WBC 10.9 H RBC 2.85 L Hgb 7.7 L Hct 23.5 L MCV 82.4 MCH 27.0 MCHC 32.8 RDW 18.8 H Plt Count 189 MPV 8.8 Absolute Neuts (auto) Neutrophils % Neutrophils % (Manual) Band Neutrophils % Lymphocytes % Lymphocytes % (Manual) Monocytes % Monocytes % (Manual) Eosinophils % Eosinophils % (Manual) Basophils % Basophils % (Manual) Myelocytes % (Man) Promyelocytes % (Man) Blast Cells % (Manual) Nucleated RBC % Metamyelocytes Platelet Estimate Polychromasia Poikilocytosis Anisocytosis Microcytosis Macrocytosis Ovalocytes Sodium 144 Potassium 3.6 Chloride 113 H Carbon Dioxide 18 L Anion Gap 13 BUN 104.3 H* Creatinine 4.8 H Est GFR (CKD-EPI)AfAm 11.89 Est GFR (CKD-EPI)NonAf 10.26 POC Glucometer Random Glucose 149 H Calcium 7.6 L Phosphorus Magnesium Total Bilirubin AST ALT Alkaline Phosphatase Total Protein Albumin Blood Type A POSITIVE Antibody Screen Negative Crossmatch See Detail 07/25/19 07/25/19 07/26/19 17:29 23:25 05:30 WBC 12.7 H RBC 3.24 L Hgb 8.9 L Hct 26.5 L MCV 81.9 MCH 27.5 MCHC 33.6 RDW 17.7 H Plt Count 205 MPV 8.9 Absolute Neuts (auto) 11.6 H Neutrophils % 91.5 H Neutrophils % (Manual) 82.8 Band Neutrophils % 0.0 Lymphocytes % 2.6 L Lymphocytes % (Manual) 8.1 D Monocytes % 4.7 Monocytes % (Manual) 5 Eosinophils % 1.1 D Eosinophils % (Manual) 1.0 D Basophils % 0.1 Basophils % (Manual) 0.0 Myelocytes % (Man) 2 D Promyelocytes % (Man) 0 Blast Cells % (Manual) 0 Nucleated RBC % 0 Metamyelocytes 1 D Platelet Estimate Normal Polychromasia 1+ Poikilocytosis 1+ Anisocytosis 1+ Microcytosis 1+ Macrocytosis 0 Ovalocytes 1+ Sodium Potassium Chloride Carbon Dioxide Anion Gap BUN Creatinine Est GFR (CKD-EPI)AfAm Est GFR (CKD-EPI)NonAf POC Glucometer 145 228 Random Glucose Calcium Phosphorus Magnesium Total Bilirubin AST ALT Alkaline Phosphatase Total Protein Albumin Blood Type Antibody Screen Crossmatch 07/26/19 07/26/19 05:30 05:31 WBC RBC Hgb Hct MCV MCH MCHC RDW Plt Count MPV Absolute Neuts (auto) Neutrophils % Neutrophils % (Manual) Band Neutrophils % Lymphocytes % Lymphocytes % (Manual) Monocytes % Monocytes % (Manual) Eosinophils % Eosinophils % (Manual) Basophils % Basophils % (Manual) Myelocytes % (Man) Promyelocytes % (Man) Blast Cells % (Manual) Nucleated RBC % Metamyelocytes Platelet Estimate Polychromasia Poikilocytosis Anisocytosis Microcytosis Macrocytosis Ovalocytes Sodium 141 Potassium 3.2 L Chloride 110 H Carbon Dioxide 20 L Anion Gap 11 BUN 96.2 H Creatinine 4.5 H Est GFR (CKD-EPI)AfAm 12.85 Est GFR (CKD-EPI)NonAf 11.09 POC Glucometer 89 Random Glucose 85 Calcium 7.3 L Phosphorus 4.3 Magnesium 2.3 Total Bilirubin 0.6 AST 18 ALT 33 Alkaline Phosphatase 45 Total Protein 4.9 L Albumin 1.8 L Blood Type Antibody Screen Crossmatch Active Medications Generic Name Dose Route Start Last Admin Trade Name Freq PRN Reason Stop Dose Admin Acetaminophen 650 mg 07/20/19 19:02 Tylenol - PO Q6H PRN PAIN LEVEL 6-10 Albuterol/Ipratropium 1 amp 07/23/19 05:35 07/23/19 20:44 Duoneb - NEB 1 amp RQID PRN Administration SHORT OF BREATH/WHEEZING Chlorhexidine Gluconate 1 applic 07/20/19 22:00 07/25/19 22:53 Hibiclens For Decolonization - TP 1 applic HS DINESH Administration Heparin Sodium (Porcine) 5,000 unit 07/20/19 22:00 07/26/19 10:26 Heparin - SQ 5,000 unit BID DINESH Administration Hydrocortisone Sodium Succinate 25 mg 07/25/19 11:32 07/26/19 10:26 Solu-Cortef - IVPUSH 25 mg Q8H-IV DINESH Administration Piperacillin Sod/Tazobactam 50 mls @ 100 mls/hr 07/21/19 18:00 07/26/19 10:26 Sod 2.25 gm/ Dextrose IVPB 100 mls/hr Q8H-IV DINESH Administration Protocol Insulin Aspart 1 vial 07/20/19 19:15 07/26/19 07:53 Novolog Vial Sliding Scale - SQ Not Given Q6HPO DINESH Protocol Pantoprazole Sodium 40 mg 07/20/19 19:15 07/26/19 10:26 Protonix Iv IVPUSH 40 mg DAILY DINESH Administration ASSESSMENT/PLAN: 84yM with PMHx of COPD (baseline 2-3L O2), HFrEF, CAD, pacemaker (2014), DM, HLD , HTN, CKD, GERD, and dementia presenting from [place] with hypotension 2/2 septic shock d/t PNA vs acute diverticulitis. #Neuro - hx syncope, dementia - CT Head (07/20) did not show acute bleed/infarct/fx - tylenol PRN pain #Cardio - Patient no longer on pressors, BP improved - Echo (07/21): EF 30-35%, severe global hypokinesis of L ventricle - L IJ CVC, placed on 07/20, will remove today - May restart hypertension meds as appropriate #Pulmonary - weaned off of high flow oxygen, now on venti mask 40%, O2 saturation in the high 90s - CXR today shows progressive congestive changes with possible infiltrate vs atelectasis at left base - CT chest 07/20 showed severe COPD changes w bulla, RLL consolidation/ atelectasis, trace R pleural fluid - Duonebs Q6hr, holding home Spiriva #ID - WBC increased to 12.7 from 10.9. patient afebrile and on abx, monitor - weaned hydrocortisone 50mg to 25mg q8h - Zosyn started 07/21 - patient has a diffuse rash on his back, groin, and arms. possibly fungal in nature. ID recs appreciated. Due to kidney function patient is not a good candidate for IV antifungals. #GI - CT AP (07/20): Extensive diverticulosis of entire colon w inflammation of sigmoid colon, cecum. Large R inguinal hernia containing fluid and nonobstructed bowel loops, calcific abdominal aorta - GI ppx - puree diet #Endo - BGM - ISS #Renal - acute on chronic kidney injury (baseline 2.2) - BUN/Cr 96.2/4.5 - holding off on dialysis for now as patient is making good urine. - CT AP (07/20): atrophic R kidney - I/Os - gil in place - appreciate Nephro recs #Heme - Hbg/Hct 8.9/26.5 - repeat H&H, will transfuse if low #FEN - no fluids - hypokalemic, repleted with Kdur, monitor and replete as needed - puree diet #PPX - Heparin SQ - protonix #Dispo - patient stable for transfer to tele floor Visit type - Emergency Visit Emergency Visit: Yes ED Registration Date: 07/20/19 Care time: The patient presented to the Emergency Department on the above date and was hospitalized for further evaluation of their emergent condition. - New Patient This patient is new to me today: No - Critical Care Critical Care patient: Yes Total Critical Care Time (in minutes): 36 Critical Care Statement: The care of this patient involved high complexity decision making to prevent further life threatening deterioration of the patient 's condition and/or to evaluate & treat vital organ system(s) failure or risk of failure. ATTENDING PHYSICIAN STATEMENT I saw and evaluated the patient. I reviewed the resident's note and discussed the case with the resident. I agree with the resident's findings and plan as documented. SUBJECTIVE: OBJECTIVE: ASSESSMENT AND PLAN:
[2019-07-26] MEDS: ALBUTEROL SO4 2.5/IPRATROPIUM 0.5 INH SOL 3 ML VIAL.NEB. NEB PRN ×2 (12:53→20:12)
--- NOTE | 2019-07-26 14:09 | PN ---
Progress Note, ADMISSIONS CLERK - Note Progress Note: Selected Entries 07/26/19 07/26/19 07/26/19 02:00 06:00 10:00 Breakfast Temperature 97.9 F 98.3 F 97.2 F L 07/26/19 11:00 Breakfast 75% Temperature Laboratory Tests 07/23/19 07/24/19 07/25/19 05:30 05:30 05:15 WBC 9.6 10.5 H 10.9 H 07/26/19 05:30 WBC 12.7 H Reported to be coughing on puree/nectar thick diet. Dysphonic. Impaired oral-pharyngeal transfer and delayed swallow onset. Delayed cough response on nectar thick liquid. Suspect silent aspiration initially on nectar. Palpated round movable region to right of larynx. Dr Masters feels likely Lipoma. Trial of puree/honey thick on tsp, mFeed slowly, wait for swallow reflex.Meds crushed and given i applesauce. d/c 2 reyna HN, . Trial magic cup/pudding. NPO if cough/congestion/MBS
[2019-07-26 14:15] LABS: EOS % 0.4 % (0-4.5); HEMATOCRIT 26.6 % (35.4-49); HEMOGLOBIN 8.9 GM/dL (11.7-16.9); LYMPH % 2.6 % (8-40); MCH 27.4 pg (25.7-33.7); MCHC 33.4 g/dl (32.0-35.9); MEAN PLT VOLUME 8.9 fl (7.5-11.1); MONO % 3.6 % (3.8-10.2); NEUT % 93.4 % (42.8-82.8); PLATELET COUNT 210 K/MM3 (134-434); RBC 3.25 M/mm3 (4.00-5.60); RDW 18.3 % (11.9-15.9); WHITE BLOOD COUNT 12.6 K/mm3 (4.0-10.0)
[2019-07-26 14:41] LABS: ANISOCYTOSIS 1+; HELMET CELLS 1+; MACROCYTOSIS 0; PLATELET ESTIMATE NORMAL
--- NOTE | 2019-07-26 15:30 | PN ---
Progress Note, Physician History of Present Illness: Pt seen and examined at bedside. He is awake and appears comfortable. - Current Medication List Current Medications: Active Medications Acetaminophen (Tylenol -) 650 mg PO Q6H PRN PRN Reason: PAIN LEVEL 6-10 Albuterol/Ipratropium (Duoneb -) 1 amp NEB RQID PRN PRN Reason: SHORT OF BREATH/WHEEZING Last Admin: 07/26/19 12:53 Dose: 1 amp Chlorhexidine Gluconate (Hibiclens For Decolonization -) 1 applic TP HS DINESH Last Admin: 07/25/19 22:53 Dose: 1 applic Heparin Sodium (Porcine) (Heparin -) 5,000 unit SQ BID DINESH Last Admin: 07/26/19 10:26 Dose: 5,000 unit Hydrocortisone Sodium Succinate (Solu-Cortef -) 25 mg IVPUSH Q8H-IV DINESH Last Admin: 07/26/19 10:26 Dose: 25 mg Piperacillin Sod/Tazobactam (Sod 2.25 gm/ Dextrose) 50 mls @ 100 mls/hr IVPB Q8H-IV DINESH; Protocol Last Admin: 07/26/19 10:26 Dose: 100 mls/hr Insulin Aspart (Novolog Vial Sliding Scale -) 1 vial SQ Q6HPO DINESH; Protocol Last Admin: 07/26/19 12:48 Dose: Not Given Pantoprazole Sodium (Protonix Iv) 40 mg IVPUSH DAILY [facility] Last Admin: 07/26/19 10:26 Dose: 40 mg - Objective Vital Signs: Vital Signs Temperature 97.6 F 07/26/19 14:00 Pulse Rate 92 H 07/26/19 14:00 Respiratory Rate 22 H 07/26/19 14:00 Blood Pressure 147/58 L 07/26/19 14:00 O2 Sat by Pulse Oximetry (%) 95 07/26/19 11:30 Constitutional: Yes: Calm Eyes: Yes: Conjunctiva Clear HENT: Yes: Atraumatic Cardiovascular: Yes: S1, S2 Respiratory: Yes: CTA Bilaterally Gastrointestinal: Yes: Normal Bowel Sounds, Soft Genitourinary: Yes: WNL Musculoskeletal: Yes: WNL Edema: No Integumentary: Yes: WNL Neurological: Yes: Other (awake) Labs: CBC, BMP 07/26/19 12:00 07/26/19 05:30 INR, PTT INR 1.44 (0.83-1.09) H 07/20/19 15:00 Problem List - Problems (1) Septic shock Code(s): A41.9 - SEPSIS, UNSPECIFIED ORGANISM; R65.21 - SEVERE SEPSIS WITH SEPTIC SHOCK (2) Acute kidney injury Code(s): N17.9 - ACUTE KIDNEY FAILURE, UNSPECIFIED Assessment/Plan Current Medications Generic Name Dose Route Start Last Admin Trade Name Freq PRN Reason Stop Dose Admin Acetaminophen 650 mg 07/20/19 19:02 Tylenol - PO Q6H PRN PAIN LEVEL 6-10 Albuterol/Ipratropium 1 amp 07/23/19 05:35 07/26/19 12:53 Duoneb - NEB 1 amp RQID PRN Administration SHORT OF BREATH/WHEEZING Chlorhexidine Gluconate 1 applic 07/20/19 22:00 07/25/19 22:53 Hibiclens For Decolonization - TP 1 applic HS DINESH Administration Heparin Sodium (Porcine) 5,000 unit 07/20/19 22:00 07/26/19 10:26 Heparin - SQ 5,000 unit BID DINESH Administration Hydrocortisone Sodium Succinate 25 mg 07/25/19 11:32 07/26/19 10:26 Solu-Cortef - IVPUSH 25 mg Q8H-IV DINESH Administration Piperacillin Sod/Tazobactam 50 mls @ 100 mls/hr 07/21/19 18:00 07/26/19 10:26 Sod 2.25 gm/ Dextrose IVPB 100 mls/hr Q8H-IV DINESH Administration Protocol Insulin Aspart 1 vial 07/20/19 19:15 07/26/19 12:48 Novolog Vial Sliding Scale - SQ Not Given Q6HPO DINESH Protocol Pantoprazole Sodium 40 mg 07/20/19 19:15 07/26/19 10:26 Protonix Iv IVPUSH 40 mg DAILY DINESH Administration Impression 1. LAURA 2. sepsis 3. pna 4. ckd 5. copd 6. dm 7. hx htn 8. dementia 9. rhabdo Plan - renal function is improving - replace potassium - repeat labs in am - monitor renal function - maintain map 65 - avoid nephrotoxins - renal dose meds
[2019-07-26 15:34] VITALS: BMI 22.1
[2019-07-26] MEDS ORDERED: ACETAMINOPHEN 325 MG TABLET (FP) PO PRN (16:29)
--- NOTE | 2019-07-26 17:00 | CONSULT ---
Consult - text type - Consultation Consultation Note: Podiatry Consultation: 84 year old male brought in by ambulance for admission while found in [place] LOC. Patient's daughter states that he has extremely overgrown, thickened toe nails. He denies F/V/N/C/SOB/CP. AFebrile. PMHx:HTN, HLD, GERD, hearing deficits(worse in Right ear), ?dementia, COPD(home O2, chronic prednisone), PPM(implanted 2014), CAD(1997), HFrEF Meds: noted ALL: levofloxacin ANTONIA: Pedal pulses 1/4, TG wnl, CFT brisk to all toes. All toe nails are severely overgrown and incurvated, thickened with subungual debris, significant tenderness to palpation of all nail units. There are no nail bed ulcers, no signs of infection. No ischemic changes to the feet. Imp: 84 year old male with onychomycosis bilaterally I attempted to manually debride mycotic nails using nail nippers. Only several of the nails were debrided before the patient could not tolerate any further. I did discuss nail hygiene with the patient's daughter as he has not had his nails trimmed in over 2 years. He can f/u outpatient or can have first line production supervisor in [place] evaluate fungal nails. Thank you for the courtesy of this consultation. Viral Jo DPM
--- NOTE | 2019-07-26 17:17 | PN ---
Physical Exam: SUBJECTIVE: Patient seen and examined NAEON. O/N: large loose BM, transistioned from hi-flow 15L to ventimask OBJECTIVE: Vital Signs Period Temp Pulse Resp BP Sys/Mata Pulse Ox Last 24 Hr 97.2 F-98.5 F 65-92 12-24 132-157/58-84 95-97 GENERAL: somnolent but arouseablee, oriented to self, year, president. HEAD: NC/AT, no hematomas noted, no facial lac noted EYES: sclera anicteric, mildly pale conjunctiva EARS, NOSE, THROAT: Ears normal, nares patent. Moist mucous membranes. Poor dentition NECK: no cervical LAD. Left TLC in place LUNGS: CTA bilaterally. No wheezes, and no crackles. No accessory muscle use. Hi -Flow NC 20L HEART: Regular rate and rhythm, normal S1 and S2 without murmur, rub or gallop. Left chest wall w/ palpable PPM, no overlying erythema. ABDOMEN: Right subcostal incisional scar. Right-sided subcostal bulge +20cm in size. ND. Mild tenderness with deep palpation to RUQ, and LLQ. MUSCULOSKELETAL: No bony deformities or tenderness. No skin tears, or ecchymosis at extremities. Long, yellowed fingernails/toenails UPPER EXTREMITIES: 2+ pulses, warm, well-perfused. No cyanosis. No clubbing. No peripheral edema. Warm extremities LOWER EXTREMITIES: 2+ pulses, warm, well-perfused. No calf tenderness. No peripheral edema. Warm extremities NEUROLOGICAL: follows commands. Development Administrator strength 5/5. Moves fingers and toes on command SKIN: dry, cool extremities Laboratory Results - last 24 hr 07/25/19 07/25/19 07/25/19 09:50 16:50 17:29 WBC 10.9 H RBC 2.85 L Hgb 7.7 L Hct 23.5 L MCV 82.4 MCH 27.0 MCHC 32.8 RDW 18.8 H Plt Count 189 MPV 8.8 Absolute Neuts (auto) Neutrophils % Neutrophils % (Manual) Band Neutrophils % Lymphocytes % Lymphocytes % (Manual) Monocytes % Monocytes % (Manual) Eosinophils % Eosinophils % (Manual) Basophils % Basophils % (Manual) Myelocytes % (Man) Promyelocytes % (Man) Blast Cells % (Manual) Nucleated RBC % Metamyelocytes Hypochromia Platelet Estimate Polychromasia Poikilocytosis Basophilic Stippling Anisocytosis Microcytosis Macrocytosis Ovalocytes Helmet Cells Schistocytes Sodium Potassium Chloride Carbon Dioxide Anion Gap BUN Creatinine Est GFR (CKD-EPI)AfAm Est GFR (CKD-EPI)NonAf POC Glucometer 145 Random Glucose Calcium Phosphorus Magnesium Total Bilirubin AST ALT Alkaline Phosphatase Total Protein Albumin Blood Type A POSITIVE Antibody Screen Negative Crossmatch See Detail 07/25/19 07/26/19 07/26/19 23:25 05:30 05:30 WBC 12.7 H RBC 3.24 L Hgb 8.9 L Hct 26.5 L MCV 81.9 MCH 27.5 MCHC 33.6 RDW 17.7 H Plt Count 205 MPV 8.9 Absolute Neuts (auto) 11.6 H Neutrophils % 91.5 H Neutrophils % (Manual) 82.8 Band Neutrophils % 0.0 Lymphocytes % 2.6 L Lymphocytes % (Manual) 8.1 D Monocytes % 4.7 Monocytes % (Manual) 5 Eosinophils % 1.1 D Eosinophils % (Manual) 1.0 D Basophils % 0.1 Basophils % (Manual) 0.0 Myelocytes % (Man) 2 D Promyelocytes % (Man) 0 Blast Cells % (Manual) 0 Nucleated RBC % 0 Metamyelocytes 1 D Hypochromia Platelet Estimate Normal Polychromasia 1+ Poikilocytosis 1+ Basophilic Stippling Anisocytosis 1+ Microcytosis 1+ Macrocytosis 0 Ovalocytes 1+ Helmet Cells Schistocytes Sodium 141 Potassium 3.2 L Chloride 110 H Carbon Dioxide 20 L Anion Gap 11 BUN 96.2 H Creatinine 4.5 H Est GFR (CKD-EPI)AfAm 12.85 Est GFR (CKD-EPI)NonAf 11.09 POC Glucometer 228 Random Glucose 85 Calcium 7.3 L Phosphorus 4.3 Magnesium 2.3 Total Bilirubin 0.6 AST 18 ALT 33 Alkaline Phosphatase 45 Total Protein 4.9 L Albumin 1.8 L Blood Type Antibody Screen Crossmatch 07/26/19 07/26/19 07/26/19 05:31 12:00 12:43 WBC 12.6 H RBC 3.25 L Hgb 8.9 L Hct 26.6 L MCV 82.0 MCH 27.4 MCHC 33.4 RDW 18.3 H Plt Count 210 MPV 8.9 Absolute Neuts (auto) 11.8 H Neutrophils % 93.4 H Neutrophils % (Manual) 90.9 H Band Neutrophils % 0.0 Lymphocytes % 2.6 L Lymphocytes % (Manual) 5.1 L D Monocytes % 3.6 L Monocytes % (Manual) 3 L Eosinophils % 0.4 Eosinophils % (Manual) 1.0 Basophils % 0.0 Basophils % (Manual) 0.0 Myelocytes % (Man) 0 D Promyelocytes % (Man) 0 Blast Cells % (Manual) 0 Nucleated RBC % 1 H Metamyelocytes 0 D Hypochromia 1+ Platelet Estimate Normal Polychromasia 0 Poikilocytosis 1+ Basophilic Stippling 1+ Anisocytosis 1+ Microcytosis 1+ Macrocytosis 0 Ovalocytes Helmet Cells 1+ Schistocytes 1+ Sodium Potassium Chloride Carbon Dioxide Anion Gap BUN Creatinine Est GFR (CKD-EPI)AfAm Est GFR (CKD-EPI)NonAf POC Glucometer 89 141 Random Glucose Calcium Phosphorus Magnesium Total Bilirubin AST ALT Alkaline Phosphatase Total Protein Albumin Blood Type Antibody Screen Crossmatch Active Medications Generic Name Dose Route Start Last Admin Trade Name Freq PRN Reason Stop Dose Admin Acetaminophen 650 mg 07/26/19 16:29 Tylenol - PO Q6H PRN PAIN LEVEL 6-10 Albuterol/Ipratropium 1 amp 07/26/19 16:29 Duoneb - NEB Q6H PRN SHORT OF BREATH/WHEEZING Heparin Sodium (Porcine) 5,000 unit 07/26/19 22:00 Heparin - SQ BID DINESH Hydrocortisone Sodium Succinate 25 mg 07/26/19 18:00 Solu-Cortef - IVPUSH Q8H-IV DINESH Piperacillin Sod/Tazobactam 50 mls @ 100 mls/hr 07/26/19 18:00 Sod 2.25 gm/ Dextrose IVPB Q8H-IV DINESH Protocol Insulin Aspart 1 vial 07/26/19 22:00 Novolog Vial Sliding Scale - SQ ACHS DINESH Protocol Pantoprazole Sodium 40 mg 07/27/19 10:00 Protonix Iv IVPUSH DAILY DINESH ASSESSMENT/PLAN: 84M w/ pmh of HTN, HLD, GERD, hearing deficits(worse in Right ear), ?dementia, COPD(home O2, chronic prednisone), PPM(implanted 2014), CAD(1997), HFrEF(global hypokinesis, May 2018). CT A/P showing possible diverticulitis of cecum and sigmoid, Right kidney staghorn calculus, Right inginal hernia. On IV abx(zosyn) . Elevated CPK possibly 2/2 rhabdomyolysis but downtrended. Cr up to ~4-5, but UOP improving so HD was not pursued. Received pRBC x1 on 07/25/19 for Hgb 7.7 and responded to 8.9. Podiatry consulted for BLE # Septic Shock --2/2 to likely diverticulitis of cecum and sigmoid > initial T 102.3 > initial BP 61/41 --MAP >65 > lactic acid 7.4->2.3->1.8 > CT A/P: diverticuli + fat stranding of cecum and sigmoid, ascites - s/p LR x1L, NS x2L - s/p Left IJ TLC --removed - s/p Left IJ TLC(07/25/19 - ) - pressors: levophd gtt(on 8mcg) --dc'd - stres-dose steroids: Solu-Cortef 100mg q8h -> 50mg q6h ->50mg q8h -->25mg q8h - IVF --dc'd by ICU - empiric Zosyn(for diverticulitis and probable PNA) # fungal dermatitis - ketoconazole TP QD # BLE onchomycosis - s/p Podiatry([facility]) nail debridement(a few nails) on 07/26/19 # acute on chronic abdominal pain --possibly hernial pain vs diverticulitis -- symptomatically resovling > FOBT neg > CT A/P --probable diverticulitis - zosyn - outpt c-scope in 6-8wks # unwitnessed fall --possible mechanical vs syncope # r/o rhabdomylsis --resolved > CT H --neg > CPK 3571 -> 1635 ->901 --> 135 - PT when stable # h/o CAD(1997) # troponinemia --possibly 2/2 to LAURA/CKD --stablized > Trop 0.06, 0.13, 0.15, 0.16, 0.14 > ECG - Ventricular paced rhythm with no St/T wave abnormalities. > CXR - Cardiomegaly, no pulmonary vascular congestion # LAURA vs CKD --possibly 2/2 sepsis/shock --worsening Cr > Cr ~ 3.9, 3.7, 4.1, 4.5, 4.8 -->4.9; baseline Cr ~2.0 > CT A/P: right kidney staghorn calculi > US renal(07/22/19): small right Right kidney w/ nonobstructing stone, Left kidney no visualized - Consult Nephro: --avoid nephrotoxins --defer HD for another day as UOP has increased --repeat UA --IVF TKO # Respiratory needs 2/2 COPD (on home O2, chronically on steroids) > CT chest: mod-severe COPD w/ Right basilar consolidation/ateletasis and trace pleural effusion - O2 needs: high-todd -->venti mask - duonebs PRN - cw stress-dose steroids # NIDDM(reported to be not a diabetic) - BGM + ISS q6h # protein malnutrition > Alb 2.0 -->1.8 - encourage diet # chronic HLD - hold Statin until resolving CK, improved clinical picture # chronic HTN --currently normotensive w/o home meds - held anti-hypertensive medications d/t shock # Chronic HFrEF > Echo(May 2018): global hypokinesis - hold home BB, MONE-I, Torsemide until resolution of acute issues # Acute Hyperkalemia --resolved > K ~5.2 ->4.2 ->3.8 -->3.5 - fu lytes FEN - Diet: S&S: Dysphagia Pureed, nectar thick - off mIVF - replete lytes PRN GI PPx - pantoprazole 40mg IVP DVT PPx - Heparin SQ Visit type - Emergency Visit Emergency Visit: No - New Patient This patient is new to me today: No - Critical Care Critical Care patient: No ATTENDING PHYSICIAN STATEMENT I saw and evaluated the patient. I reviewed the resident's note and discussed the case with the resident. I agree with the resident's findings and plan as documented. SUBJECTIVE: OBJECTIVE: ASSESSMENT AND PLAN:
[2019-07-26] MEDS ORDERED: diphenhydrAMINE HCL 25 MG CAPSULE (FP) PO PRN (17:27)
--- NOTE | 2019-07-26 17:27 | PN ---
Progress Note, Physician History of Present Illness: AWAKE BUT CONFUSED BREATHING NON-LABORED ON HIGH FLOW O2 AFEBRILE NOTED TO HAVE PATCHY ERYTHEMATOUS RASH ON R UE, BACK, LOWER ABDOMEN, GROIN - Current Medication List Current Medications: Active Medications Acetaminophen (Tylenol -) 650 mg PO Q6H PRN PRN Reason: PAIN LEVEL 6-10 Albuterol/Ipratropium (Duoneb -) 1 amp NEB Q6H PRN PRN Reason: SHORT OF BREATH/WHEEZING Heparin Sodium (Porcine) (Heparin -) 5,000 unit SQ BID DINESH Hydrocortisone Sodium Succinate (Solu-Cortef -) 25 mg IVPUSH Q8H-IV DINESH Last Admin: 07/26/19 17:23 Dose: 25 mg Piperacillin Sod/Tazobactam (Sod 2.25 gm/ Dextrose) 50 mls @ 100 mls/hr IVPB Q8H-IV DINESH; Protocol Last Admin: 07/26/19 17:23 Dose: 100 mls/hr Insulin Aspart (Novolog Vial Sliding Scale -) 1 vial SQ ACHS DINESH; Protocol Ketoconazole (Nizoral 2% Cream -) 1 applic TP DAILY DINESH Pantoprazole Sodium (Protonix Iv) 40 mg IVPUSH DAILY DINESH - Objective Vital Signs: Vital Signs Temperature 97.6 F 07/26/19 14:00 Pulse Rate 88 07/26/19 16:00 Respiratory Rate 23 H 07/26/19 16:00 Blood Pressure 146/84 07/26/19 16:00 O2 Sat by Pulse Oximetry (%) 95 07/26/19 11:30 Constitutional: Yes: No Distress Cardiovascular: Yes: Regular Rate and Rhythm, S1, S2 Respiratory: Yes: Diminished Gastrointestinal: Yes: Normal Bowel Sounds, Soft. No: Tenderness Labs: CBC, BMP 07/26/19 12:00 07/26/19 05:30 INR, PTT INR 1.44 (0.83-1.09) H 07/20/19 15:00 Assessment/Plan PROBABLE DRUG RASH SEPTIC SHOCK IMPROVED COPD EXACERBATION PNEUMONIA ?DIVERTICULITIS RENAL FAILURE QUINOLONE ALLERGY OBS D/C ZOSYN BENADRYL PRN
[2019-07-26] MEDS ORDERED: KETOCONAZOLE 2% CREAM - 60GM TUBE TP SCH (17:30)
[2019-07-26] MEDS ORDERED: INSULIN SLIDING SCALE (NOVOLOG) 1 VIAL SQ SCH ×2 (18:00→22:00)
[2019-07-26] MEDS ORDERED: PIPERACILLIN/TAZOB 2.25 GM 2.25 GM in DEXTROSE 5%-WATER - 50 ML IVPB SCH (18:00)
[2019-07-26] MEDS ORDERED: NYSTATIN 100,000 UNIT/GM TOPICAL CREAM 15 GM TUBE TP SCH (22:00)
[2019-07-27] MEDS: HYDROCORTISONE SOD SUCCINATE 100 MG/2 ML VIAL IVPUSH SCH ×3 (02:07→21:53)
[2019-07-27] MEDS: INSULIN SLIDING SCALE (NOVOLOG) 1 VIAL SQ SCH ×4 (06:17→21:34)
[2019-07-27 06:55] LABS: HEMATOCRIT 28.4 % (35.4-49); HEMOGLOBIN 9.6 GM/dL (11.7-16.9); MCH 27.5 pg (25.7-33.7); MCHC 33.7 g/dl (32.0-35.9); MEAN CELL VOLUME 81.6 fl (80-96); MEAN PLT VOLUME 8.6 fl (7.5-11.1); PLATELET COUNT 255 K/MM3 (134-434); RBC 3.48 M/mm3 (4.00-5.60); RDW 18.3 % (11.9-15.9); WHITE BLOOD COUNT 16.8 K/mm3 (4.0-10.0)
[2019-07-27 07:15] LABS: ALBUMIN 2.1 g/dl (3.4-5.0); BILIRUBIN,TOTAL 0.5 mg/dL (0.2-1); BLOOD UREA NITROGEN 99.5 mg/dL (7-18); CALCIUM 7.8 mg/dL (8.5-10.1); CREATININE 4.4 mg/dL (0.55-1.3); MAGNESIUM 2.2 mg/dL (1.8-2.4); PHOSPHOROUS 4.5 mg/dL (2.5-4.9); POTASSIUM 3.8 mmol/L (3.5-5.1); TOT PROT 5.3 g/dl (6.4-8.2)
--- NOTE | 2019-07-27 09:49 | PN ---
Progress Note, CAR RUNNER - Note Progress Note: Transferred to Telemetry from ICU. CXR- congestive/infiltrative changes persist Selected Entries 07/26/19 07/26/19 07/26/19 02:00 06:00 10:00 Breakfast Supper Temperature 97.9 F 98.3 F 97.2 F L 07/26/19 07/26/19 07/26/19 11:00 14:00 18:00 Breakfast 75% Supper Temperature 97.6 F 98.1 F 07/26/19 07/26/19 07/27/19 21:12 22:00 02:00 Breakfast Supper 100% Temperature 98.5 F 98.2 F 07/27/19 06:00 Breakfast Supper Temperature 97.8 F Laboratory Tests 07/24/19 07/25/19 07/26/19 05:30 05:15 05:30 WBC 10.5 H 10.9 H 12.7 H 07/27/19 06:10 WBC 16.8 H Trial of puree/honey thick on tsp, Feed slowly, wait for swallow reflex.Meds crushed and given i applesauce. d/c 2 reyna HN, . Trial magic cup/pudding. Pt tolerated diet well this am with modified diet on compensatory feeding strategies. NPO if cough/congestion/MBS
[2019-07-27] MEDS ORDERED: PANTOPRAZOLE SODIUM 40 MG VIAL IVPUSH SCH (10:00)
[2019-07-27] MEDS: HEPARIN NA (PORCINE) 5,000 UNITS/ML 1ML VIAL SQ SCH ×2 (10:17→21:54)
[2019-07-27] MEDS: ALBUTEROL SO4 2.5/IPRATROPIUM 0.5 INH SOL 3 ML VIAL.NEB. NEB PRN (11:10)
[2019-07-27] MEDS ORDERED: FUROSEMIDE 40 MG/4 ML INJECTABLE VIAL IVPUSH ONE (12:00)
[2019-07-27] MEDS ORDERED: POTASSIUM CHLORIDE TABS 20 MEQ TABLET.ER (FP) PO ONE (12:00)
--- NOTE | 2019-07-27 12:00 | PN ---
Progress Note, Physician History of Present Illness: Pt seen and examined at bedside. He is awake and appears comfortable. He is tolerating diet. - Current Medication List Current Medications: Active Medications Acetaminophen (Tylenol -) 650 mg PO Q6H PRN PRN Reason: PAIN LEVEL 6-10 Albuterol/Ipratropium (Duoneb -) 1 amp NEB Q6H PRN PRN Reason: SHORT OF BREATH/WHEEZING Last Admin: 07/27/19 11:10 Dose: 1 amp Diphenhydramine HCl (Benadryl -) 25 mg PO Q6H PRN PRN Reason: FOR ITCHING Last Admin: 07/26/19 19:11 Dose: 25 mg Heparin Sodium (Porcine) (Heparin -) 5,000 unit SQ BID [facility] Last Admin: 07/27/19 10:17 Dose: 5,000 unit Hydrocortisone Sodium Succinate (Solu-Cortef -) 25 mg IVPUSH BID [facility] Last Admin: 07/27/19 10:15 Dose: 25 mg Insulin Aspart (Novolog Vial Sliding Scale -) 1 vial SQ [facility]; Protocol Last Admin: 07/27/19 06:17 Dose: Not Given Pantoprazole Sodium (Protonix Iv) 40 mg IVPUSH DAILY [facility] Last Admin: 07/27/19 10:12 Dose: 40 mg - Objective Vital Signs: Vital Signs Temperature 97.8 F 07/27/19 10:24 Pulse Rate 84 07/27/19 10:24 Respiratory Rate 20 07/27/19 10:24 Blood Pressure 155/76 07/27/19 10:24 O2 Sat by Pulse Oximetry (%) 98 07/26/19 22:00 Constitutional: Yes: Calm Eyes: Yes: Conjunctiva Clear HENT: Yes: Atraumatic Cardiovascular: Yes: S1, S2 Respiratory: Yes: On Nasal O2, Rhonchi Gastrointestinal: Yes: Soft Genitourinary: Yes: Anthony Present Musculoskeletal: Yes: Muscle Weakness Edema: LLE: Trace, RLE: Trace Neurological: Yes: Confusion Labs: CBC, BMP 07/27/19 06:10 07/27/19 06:10 INR, PTT INR 1.44 (0.83-1.09) H 07/20/19 15:00 Problem List - Problems (1) Septic shock Code(s): A41.9 - SEPSIS, UNSPECIFIED ORGANISM; R65.21 - SEVERE SEPSIS WITH SEPTIC SHOCK (2) Acute kidney injury Code(s): N17.9 - ACUTE KIDNEY FAILURE, UNSPECIFIED Assessment/Plan Current Medications Generic Name Dose Route Start Last Admin Trade Name Mady PRN Reason Stop Dose Admin Acetaminophen 650 mg 07/26/19 16:29 Tylenol - PO Q6H PRN PAIN LEVEL 6-10 Albuterol/Ipratropium 1 amp 07/26/19 16:29 07/27/19 11:10 Duoneb - NEB 1 amp Q6H PRN Administration SHORT OF BREATH/WHEEZING Diphenhydramine HCl 25 mg 07/26/19 17:27 07/26/19 19:11 Benadryl - PO 25 mg Q6H PRN Administration FOR ITCHING Heparin Sodium (Porcine) 5,000 unit 07/26/19 22:00 07/27/19 10:17 Heparin - SQ 5,000 unit BID DINESH Administration Hydrocortisone Sodium Succinate 25 mg 07/27/19 10:00 07/27/19 10:15 Solu-Cortef - IVPUSH 25 mg BID DINESH Administration Insulin Aspart 1 vial 07/26/19 22:00 07/27/19 06:17 Novolog Vial Sliding Scale - SQ Not Given ACHS DINESH Protocol Pantoprazole Sodium 40 mg 07/27/19 10:00 07/27/19 10:12 Protonix Iv IVPUSH 40 mg DAILY DINESH Administration Impression 1. LAURA 2. sepsis 3. pna 4. ckd 5. copd 6. dm 7. hx htn 8. dementia 9. rhabdo Plan - will give a dose of lasix - monitor renal function - repeat labs in am - monitor bp closely - discussed with medical team - avoid nephrotoxins - renal dose meds
--- NOTE | 2019-07-27 12:20 | PN ---
Teaching Attending Note Name of Resident: Ross Thibodeaux ATTENDING PHYSICIAN STATEMENT I saw and evaluated the patient. I reviewed the resident's note and discussed the case with the resident. I agree with the resident's findings and plan as documented with exceptions below. SUBJECTIVE: Patient seen and examined, minimal participation, no complaints but limited ROS. OBJECTIVE: Vital Signs Period Temp Pulse Resp BP Sys/Mata Pulse Ox Last 24 Hr 97.6 F-98.5 F 84-101 20-23 142-159/58-95 98-98 Intake & Output 07/24/19 07/25/19 07/26/19 07/27/19 23:59 23:59 23:59 23:59 Intake Total 1215 1440 20 Output Total 1200 1650 425 Balance 15 -210 -405 Weight 147 lb 4.8 oz 146 lb 12.8 oz General: lying in bed, some tachypnea and use for accessory muscles of respiration, unchanged from yesterday CVS:S1S2 regular Chest: patient in right lateral position, fine dependent rales, pos air entry, no wheezing appreciated Abdomen:Soft, NT, Pos bowel sounds Extremities: trace pedal edema, long hypertrophic nails hands and feet bilaterally Skin: macular rash back Home Medications Medication Instructions Recorded Amlodipine Besylate 10 mg PO DAILY 12/19/18 Aspirin Coated [Ecotrin -] 81 mg PO DAILY 12/19/18 Atorvastatin Ca [Lipitor] 20 mg PO HS 12/19/18 Carvedilol [Coreg -] 12.5 mg PO BID 12/19/18 Latanoprost/Pf [Latanoprost 0.005% 7.5 ml OP DAILY 12/19/18 Eye Drop] Losartan Potassium 100 mg PO DAILY 12/19/18 Pantoprazole Sodium 40 mg PO DAILY 12/19/18 Risperidone [Risperdal] 1 mg PO DAILY 12/19/18 Torsemide [Demadex -] 20 mg PO DAILY 12/19/18 predniSONE [Deltasone -] 10 mg PO ASDIR 10 Days #30 tablet 12/24/18 Cholecalciferol (Vitamin D3) 2,000 unit PO DAILY 07/21/19 [Vitamin D] Cyanocobalamin [Vitamin B12 -] 1,000 mcg PO DAILY 07/21/19 Active Medications Acetaminophen (Tylenol -) 650 mg PO Q6H PRN PRN Reason: PAIN LEVEL 6-10 Albuterol/Ipratropium (Duoneb -) 1 amp NEB Q6H PRN PRN Reason: SHORT OF BREATH/WHEEZING Last Admin: 07/27/19 11:10 Dose: 1 amp Diphenhydramine HCl (Benadryl -) 25 mg PO Q6H PRN PRN Reason: FOR ITCHING Last Admin: 07/26/19 19:11 Dose: 25 mg Heparin Sodium (Porcine) (Heparin -) 5,000 unit SQ BID [facility] Last Admin: 07/27/19 10:17 Dose: 5,000 unit Hydrocortisone Sodium Succinate (Solu-Cortef -) 25 mg IVPUSH BID [facility] Last Admin: 07/27/19 10:15 Dose: 25 mg Insulin Aspart (Novolog Vial Sliding Scale -) 1 vial SQ ACHS [facility]; Protocol Last Admin: 07/27/19 12:11 Dose: Not Given Pantoprazole Sodium (Protonix Iv) 40 mg IVPUSH DAILY [facility] Last Admin: 07/27/19 10:12 Dose: 40 mg Laboratory Results - last 24 hr 07/26/19 07/26/19 07/26/19 12:00 12:43 18:29 WBC 12.6 H RBC 3.25 L Hgb 8.9 L Hct 26.6 L MCV 82.0 MCH 27.4 MCHC 33.4 RDW 18.3 H Plt Count 210 MPV 8.9 Absolute Neuts (auto) 11.8 H Neutrophils % 93.4 H Neutrophils % (Manual) 90.9 H Band Neutrophils % 0.0 Lymphocytes % 2.6 L Lymphocytes % (Manual) 5.1 L D Monocytes % 3.6 L Monocytes % (Manual) 3 L Eosinophils % 0.4 Eosinophils % (Manual) 1.0 Basophils % 0.0 Basophils % (Manual) 0.0 Myelocytes % (Man) 0 D Promyelocytes % (Man) 0 Blast Cells % (Manual) 0 Nucleated RBC % 1 H Metamyelocytes 0 D Hypochromia 1+ Platelet Estimate Normal Polychromasia 0 Poikilocytosis 1+ Basophilic Stippling 1+ Anisocytosis 1+ Microcytosis 1+ Macrocytosis 0 Helmet Cells 1+ Schistocytes 1+ Sodium Potassium Chloride Carbon Dioxide Anion Gap BUN Creatinine Est GFR (CKD-EPI)AfAm Est GFR (CKD-EPI)NonAf POC Glucometer 141 198 Random Glucose Calcium Phosphorus Magnesium Total Bilirubin AST ALT Alkaline Phosphatase Total Protein Albumin 07/26/19 07/27/19 07/27/19 20:56 06:10 06:10 WBC 16.8 H RBC 3.48 L Hgb 9.6 L Hct 28.4 L MCV 81.6 MCH 27.5 MCHC 33.7 RDW 18.3 H Plt Count 255 D MPV 8.6 Absolute Neuts (auto) Neutrophils % Neutrophils % (Manual) Band Neutrophils % Lymphocytes % Lymphocytes % (Manual) Monocytes % Monocytes % (Manual) Eosinophils % Eosinophils % (Manual) Basophils % Basophils % (Manual) Myelocytes % (Man) Promyelocytes % (Man) Blast Cells % (Manual) Nucleated RBC % Metamyelocytes Hypochromia Platelet Estimate Polychromasia Poikilocytosis Basophilic Stippling Anisocytosis Microcytosis Macrocytosis Helmet Cells Schistocytes Sodium 143 Potassium 3.8 Chloride 114 H Carbon Dioxide 18 L Anion Gap 11 BUN 99.5 H Creatinine 4.4 H Est GFR (CKD-EPI)AfAm 13.21 Est GFR (CKD-EPI)NonAf 11.39 POC Glucometer 203 Random Glucose 112 H Calcium 7.8 L Phosphorus 4.5 Magnesium 2.2 Total Bilirubin 0.5 AST 14 L ALT 31 Alkaline Phosphatase 49 Total Protein 5.3 L Albumin 2.1 L 07/27/19 07/27/19 06:15 12:07 WBC RBC Hgb Hct MCV MCH MCHC RDW Plt Count MPV Absolute Neuts (auto) Neutrophils % Neutrophils % (Manual) Band Neutrophils % Lymphocytes % Lymphocytes % (Manual) Monocytes % Monocytes % (Manual) Eosinophils % Eosinophils % (Manual) Basophils % Basophils % (Manual) Myelocytes % (Man) Promyelocytes % (Man) Blast Cells % (Manual) Nucleated RBC % Metamyelocytes Hypochromia Platelet Estimate Polychromasia Poikilocytosis Basophilic Stippling Anisocytosis Microcytosis Macrocytosis Helmet Cells Schistocytes Sodium Potassium Chloride Carbon Dioxide Anion Gap BUN Creatinine Est GFR (CKD-EPI)AfAm Est GFR (CKD-EPI)NonAf POC Glucometer 106 130 Random Glucose Calcium Phosphorus Magnesium Total Bilirubin AST ALT Alkaline Phosphatase Total Protein Albumin [facility] 07/20/19 15:00 Blood - Peripheral Venous Blood Culture - Final NO GROWTH AFTER 5 DAYS INCUBATION 07/20/19 15:00 Blood - Peripheral Venous Blood Culture - Final NO GROWTH AFTER 5 DAYS INCUBATION 07/20/19 16:11 Urine - Urine Clean Catch Urine Culture - Final NO GROWTH OBTAINED 07/21/19 13:30 Urine For Antigen Detection Legionella Antigen - Preliminary 07/21/19 13:30 Urine For Antigen Detection Streptococcus pneumoniae Antigen (M - Preliminary CXR images and results reviewed ASSESSMENT AND PLAN: 84 yom with PMHx of HTN, HLD, GERD, hearing deficits(worse in Right ear), dementia, COPD(home O2, chronic prednisone), PPM(implanted 2014), CAD(1997), HFrEF(global hypokinesis, May 2018) brought after found down down at home -Septic shock due to Diverticulitis+/- LLL PNA -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 -Type II DM -HTN -HLD -CAD Plan: Respiratory status unchanged, oxygenation unchanged. renal function with some improvement, non oliguric. renal input noted. Lasix 40 mg IV x1, monitor volume status. ?drug reaction, ID input noted, Off zosyn. WBC worse, monitor closely. taper steroids. Speech/swallow input noted. Resume coreg. resume amlodipine later as hemodynamics tolerate. Hold statin for now, resume in 24-48 hours if CPK normal. DVTPPX Heparin Dispo OOB, PT eval
--- NOTE | 2019-07-27 13:25 | PN ---
Progress Note, Physician History of Present Illness: pulmonary drowsy on nasal cannula 02 sat 98%,-resp distrss - Current Medication List Current Medications: Active Medications Acetaminophen (Tylenol -) 650 mg PO Q6H PRN PRN Reason: PAIN LEVEL 6-10 Albuterol/Ipratropium (Duoneb -) 1 amp NEB Q6H PRN PRN Reason: SHORT OF BREATH/WHEEZING Last Admin: 07/27/19 11:10 Dose: 1 amp Carvedilol (Coreg -) 12.5 mg PO BID [facility] Diphenhydramine HCl (Benadryl -) 25 mg PO Q6H PRN PRN Reason: FOR ITCHING Last Admin: 07/26/19 19:11 Dose: 25 mg Heparin Sodium (Porcine) (Heparin -) 5,000 unit SQ BID [facility] Last Admin: 07/27/19 10:17 Dose: 5,000 unit Hydrocortisone Sodium Succinate (Solu-Cortef -) 25 mg IVPUSH BID [facility] Last Admin: 07/27/19 10:15 Dose: 25 mg Insulin Aspart (Novolog Vial Sliding Scale -) 1 vial SQ [facility]; Protocol Last Admin: 07/27/19 12:11 Dose: Not Given Pantoprazole Sodium (Protonix Iv) 40 mg IVPUSH DAILY [facility] Last Admin: 07/27/19 10:12 Dose: 40 mg - Objective Vital Signs: Vital Signs Temperature 97.8 F 07/27/19 10:24 Pulse Rate 84 07/27/19 10:24 Respiratory Rate 20 07/27/19 10:24 Blood Pressure 155/76 07/27/19 10:24 O2 Sat by Pulse Oximetry (%) 95 07/27/19 09:00 Constitutional: Yes: Thin, Other (drowsy) Eyes: Yes: WNL HENT: Yes: WNL Neck: Yes: WNL Cardiovascular: Yes: Regular Rate and Rhythm, S1, S2 Respiratory: Yes: Rhonchi (scattered rhonchi) Gastrointestinal: Yes: Normal Bowel Sounds, Soft Extremities: Yes: WNL Edema: No Labs: CBC, BMP 07/27/19 06:10 07/27/19 06:10 INR, PTT INR 1.44 (0.83-1.09) H 07/20/19 15:00 - ....Imaging Chest X-ray: Report Reviewed, Image Reviewed Problem List - Problems (1) Septic shock Code(s): A41.9 - SEPSIS, UNSPECIFIED ORGANISM; R65.21 - SEVERE SEPSIS WITH SEPTIC SHOCK (2) Acute and chronic respiratory failure Code(s): J96.20 - ACUTE AND CHR RESP FAILURE, UNSP W HYPOXIA OR HYPERCAPNIA Qualifiers: Respiratory failure complication: hypoxia Qualified Code(s): J96.21 - Acute and chronic respiratory failure with hypoxia (3) Acute on chronic renal failure Code(s): N17.9 - ACUTE KIDNEY FAILURE, UNSPECIFIED; N18.9 - CHRONIC KIDNEY DISEASE, UNSPECIFIED Qualifiers: Chronic kidney disease stage: stage 3 (moderate) (4) BPH (benign prostatic hyperplasia) Code(s): N40.0 - BENIGN PROSTATIC HYPERPLASIA WITHOUT LOWER URINRY TRACT SYMP (5) COPD (chronic obstructive pulmonary disease) Code(s): J44.9 - CHRONIC OBSTRUCTIVE PULMONARY DISEASE, UNSPECIFIED Qualifiers: (6) Cardiac pacemaker in situ Code(s): Z95.0 - PRESENCE OF CARDIAC PACEMAKER (7) Pneumonia Code(s): J18.9 - PNEUMONIA, UNSPECIFIED ORGANISM (8) ASHD (arteriosclerotic heart disease) Code(s): I25.10 - ATHSCL HEART DISEASE OF [place] CORONARY ARTERY W/O ANG PCTRS (9) Diabetes mellitus Code(s): E11.9 - TYPE 2 DIABETES MELLITUS WITHOUT COMPLICATIONS Qualifiers: Diabetes mellitus type: type 2 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
[2019-07-27] MEDS: CARVEDILOL 12.5 MG TABLET (FP) PO SCH ×2 (14:02→21:53)
--- NOTE | 2019-07-27 15:20 | PN ---
Physical Exam: SUBJECTIVE: Patient seen and examined NAEON O/N: large loose BM Endorses thirst. Breathing on Ventimask, OBJECTIVE: Vital Signs Period Temp Pulse Resp BP Sys/Mata Pulse Ox Last 24 Hr 97.8 F-98.5 F 84-102 20-23 130-159/59-95 95-98 GENERAL: somnolent but arouseablee, oriented to self, year, president. HEAD: NC/AT, no hematomas noted, no facial lac noted EYES: sclera anicteric, mildly pale conjunctiva EARS, NOSE, THROAT: Ears normal, nares patent. Moist mucous membranes. Poor dentition NECK: no cervical LAD. Left TLC in place LUNGS: CTA bilaterally. No wheezes, and no crackles. No accessory muscle use. Short, weak inspirations, RR >18. Was on Ventimask then on on NC 2L HEART: Regular rate and rhythm, normal S1 and S2 without murmur, rub or gallop. Left chest wall w/ palpable PPM, no overlying erythema. ABDOMEN: Right subcostal incisional scar. Right-sided subcostal bulge +20cm in size. ND. Mild tenderness with deep palpation to RUQ, and LLQ. MUSCULOSKELETAL: No bony deformities or tenderness. No skin tears, or ecchymosis at extremities. Long, yellowed fingernails/toenails UPPER EXTREMITIES: 2+ pulses, warm, well-perfused. No cyanosis. No clubbing. No peripheral edema. Warm extremities LOWER EXTREMITIES: 2+ pulses, warm, well-perfused. No calf tenderness. No peripheral edema. Warm extremities NEUROLOGICAL: follows commands. Ctc Operator strength 5/5. Moves fingers and toes on command SKIN: dry, warm skin. Scaly skin. Blanching flat truncal rash, irregular contours Laboratory Results - last 24 hr 07/26/19 07/26/19 07/27/19 18:29 20:56 06:10 WBC RBC Hgb Hct MCV MCH MCHC RDW Plt Count MPV Sodium 143 Potassium 3.8 Chloride 114 H Carbon Dioxide 18 L Anion Gap 11 BUN 99.5 H Creatinine 4.4 H Est GFR (CKD-EPI)AfAm 13.21 Est GFR (CKD-EPI)NonAf 11.39 POC Glucometer 198 203 Random Glucose 112 H Calcium 7.8 L Phosphorus 4.5 Magnesium 2.2 Total Bilirubin 0.5 AST 14 L ALT 31 Alkaline Phosphatase 49 Total Protein 5.3 L Albumin 2.1 L 07/27/19 07/27/19 07/27/19 06:10 06:15 12:07 WBC 16.8 H RBC 3.48 L Hgb 9.6 L Hct 28.4 L MCV 81.6 MCH 27.5 MCHC 33.7 RDW 18.3 H Plt Count 255 D MPV 8.6 Sodium Potassium Chloride Carbon Dioxide Anion Gap BUN Creatinine Est GFR (CKD-EPI)AfAm Est GFR (CKD-EPI)NonAf POC Glucometer 106 130 Random Glucose Calcium Phosphorus Magnesium Total Bilirubin AST ALT Alkaline Phosphatase Total Protein Albumin Active Medications Generic Name Dose Route Start Last Admin Trade Name Freq PRN Reason Stop Dose Admin Acetaminophen 650 mg 07/26/19 16:29 Tylenol - PO Q6H PRN PAIN LEVEL 6-10 Albuterol/Ipratropium 1 amp 07/26/19 16:29 07/27/19 11:10 Duoneb - NEB 1 amp Q6H PRN Administration SHORT OF BREATH/WHEEZING Carvedilol 12.5 mg 07/27/19 12:30 07/27/19 14:02 Coreg - PO 12.5 mg BID DINESH Administration Diphenhydramine HCl 25 mg 07/26/19 17:27 07/26/19 19:11 Benadryl - PO 25 mg Q6H PRN Administration FOR ITCHING Heparin Sodium (Porcine) 5,000 unit 07/26/19 22:00 07/27/19 10:17 Heparin - SQ 5,000 unit BID DINESH Administration Hydrocortisone Sodium Succinate 25 mg 07/27/19 10:00 07/27/19 10:15 Solu-Cortef - IVPUSH 25 mg BID DINESH Administration Insulin Aspart 1 vial 07/26/19 22:00 07/27/19 12:11 Novolog Vial Sliding Scale - SQ Not Given ACHS [facility] Protocol Pantoprazole Sodium 40 mg 07/27/19 10:00 07/27/19 10:12 Protonix Iv IVPUSH 40 mg DAILY DINESH Administration Vital Signs Temp 98.4 F 07/27/19 14:00 Pulse 102 H 07/27/19 14:00 Resp 20 07/27/19 14:00 BP 130/59 L 07/27/19 14:00 Pulse Ox 95 07/27/19 09:00 Intake & Output 07/26/19 07/27/19 07/27/19 23:59 11:59 23:59 Intake Total 360 20 Output Total 1300 425 Balance -940 -405 Intake: IV 20 LIJ TLC 07/20 10 RFA 22 07/27/2019 10 Oral 360 Output: Urine 1300 425 Gil 1300 425 Other: Voiding Method Indwelling Catheter Indwelling Catheter Bowel Movement Yes Yes # Bowel Movements 1 1 Body Mass Index (BMI) 22.1 ASSESSMENT/PLAN: 84M w/ pmh of HTN, HLD, GERD, hearing deficits(worse in Right ear), ?dementia, COPD(home O2, chronic prednisone), PPM(implanted 2014), CAD(1997), HFrEF(global hypokinesis, May 2018). CT A/P showing possible diverticulitis of cecum and sigmoid, Right kidney staghorn calculus, Right inginal hernia. On IV abx(zosyn) . Elevated CPK possibly 2/2 rhabdomyolysis but downtrended. Cr up to ~4-5, but UOP improving so HD was not pursued. Received pRBC x1 on 07/25/19 for Hgb 7.7 and responded to 8.9. Podiatry consulted for BLE onchomycosis, had a few toenails debrided but patient refused others. Zosyn stopped on HD #6, for possible truncal drug rash. Abd pain resolving. Having large loose bowel movements. Left IJ removed on 07/27/19. Indwelling gil for strict I/Os # Septic Shock --2/2 to likely diverticulitis of cecum and sigmoid > initial T 102.3 > initial BP 61/41 --MAP >65 > lactic acid 7.4->2.3->1.8 > CT A/P: diverticuli + fat stranding of cecum and sigmoid, ascites - s/p LR x1L, NS x2L - s/p Left IJ TLC --removed - s/p Left IJ TLC(07/25/19 - ) --dc'd 07/27/19 - pressors: levophd gtt(on 8mcg) --dc'd - stres-dose steroids: Solu-Cortef 100mg q8h -> 50mg q6h ->50mg q8h ->25mg q8h - -> 25mg q12h - IVF --dc'd by ICU - empiric Zosyn(for diverticulitis and probable PNA) --stopped after abx day #6 # fungal dermatitis --probable drug rash - ketoconazole TP QD --stopped - zosyn --stopped on abx #6 # BLE onchomycosis - s/p Podiatry([facility]) nail debridement(a few nails) on 07/26/19 # acute on chronic abdominal pain --possibly hernial pain vs diverticulitis -- symptomatically resovling > FOBT neg > CT A/P --probable diverticulitis - zosyn --stopped on abx #6 - outpt c-scope in 6-8wks # unwitnessed fall --possible mechanical vs syncope # r/o rhabdomylsis --resolved > CT H --neg > CPK 3571 -> 1635 ->901 --> 135 - PT when stable # h/o CAD(1997) # troponinemia --possibly 2/2 to LAURA/CKD --stablized > Trop 0.06, 0.13, 0.15, 0.16, 0.14 > ECG - Ventricular paced rhythm with no St/T wave abnormalities. > CXR - Cardiomegaly, no pulmonary vascular congestion # LAURA vs CKD --possibly 2/2 sepsis/shock --worsening Cr > Cr ~ 3.9, 3.7, 4.1, 4.5, 4.8 -->4.9; baseline Cr ~2.0 > CT A/P: right kidney staghorn calculi > US renal(07/22/19): small right Right kidney w/ nonobstructing stone, Left kidney no visualized - Consult Nephro: --avoid nephrotoxins --defer HD for another day as UOP has increased --furosemide 40mg IVP x1 --IVF TKO # Respiratory needs 2/2 COPD (on home O2, chronically on steroids) > CT chest(07/20/19): mod-severe COPD w/ Right basilar consolidation/ateletasis and trace pleural effusion > CXR(07/27/19): congestion and infiltrative changes - O2 needs: high-todd ->venti mask --> NC 2L - duonebs PRN - cw stress-dose steroids --weaning # NIDDM(reported to be not a diabetic) - BGM + ISS q6h # protein malnutrition > Alb 2.0 -->1.8 - encourage diet # chronic HLD - hold Statin until resolving CK, improved clinical picture # chronic HTN --currently normotensive w/o home meds - held anti-hypertensive medications d/t shock # Chronic HFrEF > Echo(May 2018): global hypokinesis - hold MONE-I, Torsemide until resolution of acute issues - resume home BB # Acute Hyperkalemia --resolved > K ~5.2 ->4.2 ->3.8 -->3.5 - fu lytes FEN - Diet: S&S: Dysphagia Pureed, honey thick - off mIVF - replete lytes PRN GI PPx - pantoprazole 40mg IVP DVT PPx - Heparin SQ Visit type - Emergency Visit Emergency Visit: No - New Patient This patient is new to me today: No - Critical Care Critical Care patient: No ATTENDING PHYSICIAN STATEMENT I saw and evaluated the patient. I reviewed the resident's note and discussed the case with the resident. I agree with the resident's findings and plan as documented. SUBJECTIVE: OBJECTIVE: ASSESSMENT AND PLAN:
[2019-07-28] MEDS: INSULIN SLIDING SCALE (NOVOLOG) 1 VIAL SQ SCH ×4 (06:00→22:15)
[2019-07-28 07:11] LABS: EOS % 1.7 % (0-4.5); HEMATOCRIT 25.9 % (35.4-49); HEMOGLOBIN 8.7 GM/dL (11.7-16.9); LYMPH % 3.7 % (8-40); MCH 27.5 pg (25.7-33.7); MCHC 33.4 g/dl (32.0-35.9); MEAN CELL VOLUME 82.2 fl (80-96); MEAN PLT VOLUME 8.6 fl (7.5-11.1); MONO % 3.8 % (3.8-10.2); NEUT % 90.8 % (42.8-82.8); PLATELET COUNT 248 K/MM3 (134-434); RBC 3.16 M/mm3 (4.00-5.60); RDW 18.4 % (11.9-15.9); WHITE BLOOD COUNT 14.8 K/mm3 (4.0-10.0)
[2019-07-28 07:36] LABS: BLOOD UREA NITROGEN 95.1 mg/dL (7-18); CALCIUM 7.5 mg/dL (8.5-10.1); CREATININE 4.1 mg/dL (0.55-1.3); PHOSPHOROUS 4.1 mg/dL (2.5-4.9); POTASSIUM 4.1 mmol/L (3.5-5.1)
--- NOTE | 2019-07-28 09:16 | PN ---
Teaching Attending Note Name of Resident: Ross Thibodeaux ATTENDING PHYSICIAN STATEMENT I saw and evaluated the patient. I reviewed the resident's note and discussed the case with the resident. I agree with the resident's findings and plan as documented with exceptions below. SUBJECTIVE: Patient seen and examined. more participation, no complaints, limited ROS. OBJECTIVE: Vital Signs Period Temp Pulse Resp BP Sys/Mata Pulse Ox Last 24 Hr 97.3 F-98.6 F 69-102 18-20 130-155/59-79 95 Intake & Output 07/25/19 07/26/19 07/27/19 07/28/19 23:59 23:59 23:59 23:59 Intake Total 1215 1440 550 240 Output Total 1200 1650 2325 800 Balance 80 -812 -1679 -267 Weight 147 lb 4.8 oz 146 lb 12.8 oz General: lying in bed, no acute distress Neck: soft, supple Chest: improved rales and air entry Abdomen:soft, NT Extremities: no pedal edema, long hypertrophic nails hands and feet bilaterally Home Medications Medication Instructions Recorded Amlodipine Besylate 10 mg PO DAILY 12/19/18 Aspirin Coated [Ecotrin -] 81 mg PO DAILY 12/19/18 Atorvastatin Ca [Lipitor] 20 mg PO HS 12/19/18 Carvedilol [Coreg -] 12.5 mg PO BID 12/19/18 Latanoprost/Pf [Latanoprost 0.005% 7.5 ml OP DAILY 12/19/18 Eye Drop] Losartan Potassium 100 mg PO DAILY 12/19/18 Pantoprazole Sodium 40 mg PO DAILY 12/19/18 Risperidone [Risperdal] 1 mg PO DAILY 12/19/18 Torsemide [Demadex -] 20 mg PO DAILY 12/19/18 predniSONE [Deltasone -] 10 mg PO ASDIR 10 Days #30 tablet 12/24/18 Cholecalciferol (Vitamin D3) 2,000 unit PO DAILY 07/21/19 [Vitamin D] Cyanocobalamin [Vitamin B12 -] 1,000 mcg PO DAILY 07/21/19 Active Medications Acetaminophen (Tylenol -) 650 mg PO Q6H PRN PRN Reason: PAIN LEVEL 6-10 Albuterol/Ipratropium (Duoneb -) 1 amp NEB Q6H PRN PRN Reason: SHORT OF BREATH/WHEEZING Last Admin: 07/27/19 11:10 Dose: 1 amp Carvedilol (Coreg -) 12.5 mg PO BID [facility] Last Admin: 07/27/19 21:53 Dose: 12.5 mg Diphenhydramine HCl (Benadryl -) 25 mg PO Q6H PRN PRN Reason: FOR ITCHING Last Admin: 07/26/19 19:11 Dose: 25 mg Heparin Sodium (Porcine) (Heparin -) 5,000 unit SQ BID [facility] Last Admin: 07/27/19 21:54 Dose: 5,000 unit Hydrocortisone Sodium Succinate (Solu-Cortef -) 25 mg IVPUSH BID [facility] Last Admin: 07/27/19 21:53 Dose: 25 mg Insulin Aspart (Novolog Vial Sliding Scale -) 1 vial SQ ACHS [facility]; Protocol Last Admin: 07/28/19 06:00 Dose: Not Given Pantoprazole Sodium (Protonix Iv) 40 mg IVPUSH DAILY [facility] Last Admin: 07/27/19 10:12 Dose: 40 mg Laboratory Results - last 24 hr 07/27/19 07/27/19 07/27/19 12:07 16:55 21:00 WBC RBC Hgb Hct MCV MCH MCHC RDW Plt Count MPV Absolute Neuts (auto) Neutrophils % Lymphocytes % Monocytes % Eosinophils % Basophils % Nucleated RBC % Sodium Potassium Chloride Carbon Dioxide Anion Gap BUN Creatinine Est GFR (CKD-EPI)AfAm Est GFR (CKD-EPI)NonAf POC Glucometer 130 108 132 Random Glucose Calcium Phosphorus Magnesium Creatine Kinase 07/28/19 07/28/19 07/28/19 05:10 06:25 06:25 WBC 14.8 H RBC 3.16 L Hgb 8.7 L Hct 25.9 L MCV 82.2 MCH 27.5 MCHC 33.4 RDW 18.4 H Plt Count 248 MPV 8.6 Absolute Neuts (auto) 13.4 H Neutrophils % 90.8 H Lymphocytes % 3.7 L D Monocytes % 3.8 Eosinophils % 1.7 D Basophils % 0.0 Nucleated RBC % 0 Sodium 142 Potassium 4.1 Chloride 111 H Carbon Dioxide 23 Anion Gap 8 BUN 95.1 H Creatinine 4.1 H Est GFR (CKD-EPI)AfAm 14.38 Est GFR (CKD-EPI)NonAf 12.41 POC Glucometer 114 Random Glucose 105 Calcium 7.5 L Phosphorus 4.1 Magnesium 2.0 Creatine Kinase 42 Microbiology 07/20/19 15:00 Blood - Peripheral Venous Blood Culture - Final NO GROWTH AFTER 5 DAYS INCUBATION 07/20/19 15:00 Blood - Peripheral Venous Blood Culture - Final NO GROWTH AFTER 5 DAYS INCUBATION 07/20/19 16:11 Urine - Urine Clean Catch Urine Culture - Final NO GROWTH OBTAINED 07/21/19 13:30 Urine For Antigen Detection Legionella Antigen - Preliminary 07/21/19 13:30 Urine For Antigen Detection Streptococcus pneumoniae Antigen (M - Preliminary ASSESSMENT AND PLAN: 84 yom with PMHx of HTN, HLD, GERD, hearing deficits(worse in Right ear), dementia, COPD(home O2, chronic prednisone), PPM(implanted 2014), CAD(1997), HFrEF(global hypokinesis, May 2018) brought after found down down at home -Septic shock due to Diverticulitis+/- LLL PNA -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 -Type II DM -HTN -HLD -CAD Plan: Diuresed well with lasix, renal function/oxygenation improved. Defer further lasix to renal. Off Zosyn, WBC improved, trend for now. Change to Prednisone 20 mg daily with taper to home regimen 10 mg in 24-48 hours. Continue coreg. resume ASA/statin. Will resume amlodipine based on hemodynamics. Speech/swallow inputnoted. DVTPPX heparin, change PPI to PO. Resume risperidone in 1-2 days if concerns. PT eval noted, encourage OOB. Dispo SNF vs home with services/oxygen in 2-3 days if continues to improve. Discussed with nursing.
[2019-07-28] MEDS ORDERED: predniSONE 10 MG TABLET (UD) PO SCH (10:00)
[2019-07-28 10:34] LABS: ANISOCYTOSIS 1+; MACROCYTOSIS 0; OVALOCYTE 1+; PLATELET ESTIMATE NORMAL
--- NOTE | 2019-07-28 11:10 | PN ---
Physical Exam: SUBJECTIVE: Patient seen and examined NAEON Endorses thirst. Denies abdominal pain OBJECTIVE: Vital Signs Period Temp Pulse Resp BP Sys/Mata Pulse Ox Last 24 Hr 97.3 F-98.6 F 69-102 18-20 130-146/59-79 95 GENERAL: somnolent but arouseablee, oriented to self. Refusing to answer additional questions HEAD: NC/AT, no hematomas noted, no facial lac noted EYES: sclera anicteric, mildly pale conjunctiva EARS, NOSE, THROAT: Ears normal, nares patent. Moist mucous membranes. Poor dentition NECK: no cervical LAD. Dressing over former Left IJ. LUNGS: CTA bilaterally. No wheezes, and no crackles. No accessory muscle use. Short, weak inspirations, RR >18. NC 3L HEART: Regular rate and rhythm, normal S1 and S2 without murmur, rub or gallop. Left chest wall w/ palpable PPM, no overlying erythema. ABDOMEN: Scaly skin. Right subcostal incisional scar. Right-sided subcostal bulge +20cm in size. ND. Mild tenderness with deep palpation to RUQ, and LLQ. MUSCULOSKELETAL: No bony deformities or tenderness. No skin tears, or ecchymosis at extremities. Long, yellowed fingernails/toenails UPPER EXTREMITIES: 2+ pulses, warm, well-perfused. No cyanosis. No clubbing. No peripheral edema. Warm extremities LOWER EXTREMITIES: 2+ pulses, warm, well-perfused. No calf tenderness. No peripheral edema. Warm extremities NEUROLOGICAL: follows commands. Police Clerk strength 5/5. Moves fingers and toes on command SKIN: dry, warm skin. Scaly skin. Blanching flat truncal rash w/ irregular contours Laboratory Results - last 24 hr 07/27/19 07/27/19 07/27/19 12:07 16:55 21:00 WBC RBC Hgb Hct MCV MCH MCHC RDW Plt Count MPV Absolute Neuts (auto) Neutrophils % Lymphocytes % Monocytes % Eosinophils % Basophils % Nucleated RBC % Sodium Potassium Chloride Carbon Dioxide Anion Gap BUN Creatinine Est GFR (CKD-EPI)AfAm Est GFR (CKD-EPI)NonAf POC Glucometer 130 108 132 Random Glucose Calcium Phosphorus Magnesium Creatine Kinase 07/28/19 07/28/19 07/28/19 05:10 06:25 06:25 WBC 14.8 H RBC 3.16 L Hgb 8.7 L Hct 25.9 L MCV 82.2 MCH 27.5 MCHC 33.4 RDW 18.4 H Plt Count 248 MPV 8.6 Absolute Neuts (auto) 13.4 H Neutrophils % 90.8 H Lymphocytes % 3.7 L D Monocytes % 3.8 Eosinophils % 1.7 D Basophils % 0.0 Nucleated RBC % 0 Sodium 142 Potassium 4.1 Chloride 111 H Carbon Dioxide 23 Anion Gap 8 BUN 95.1 H Creatinine 4.1 H Est GFR (CKD-EPI)AfAm 14.38 Est GFR (CKD-EPI)NonAf 12.41 POC Glucometer 114 Random Glucose 105 Calcium 7.5 L Phosphorus 4.1 Magnesium 2.0 Creatine Kinase 42 Active Medications Generic Name Dose Route Start Last Admin Trade Name Freq PRN Reason Stop Dose Admin Acetaminophen 650 mg 07/26/19 16:29 Tylenol - PO Q6H PRN PAIN LEVEL 6-10 Albuterol/Ipratropium 1 amp 07/26/19 16:29 07/27/19 11:10 Duoneb - NEB 1 amp Q6H PRN Administration SHORT OF BREATH/WHEEZING Aspirin 81 mg 07/28/19 10:00 Ecotrin - PO DAILY [facility] Atorvastatin Calcium 20 mg 07/28/19 22:00 Lipitor - PO HS DINESH Carvedilol 12.5 mg 07/27/19 12:30 07/27/19 21:53 Coreg - PO 12.5 mg BID DINESH Administration Diphenhydramine HCl 25 mg 07/26/19 17:27 07/26/19 19:11 Benadryl - PO 25 mg Q6H PRN Administration FOR ITCHING Heparin Sodium (Porcine) 5,000 unit 07/26/19 22:00 07/27/19 21:54 Heparin - SQ 5,000 unit BID DINESH Administration Insulin Aspart 1 vial 07/26/19 22:00 07/28/19 06:00 Novolog Vial Sliding Scale - SQ Not Given ACHS [facility] Protocol Pantoprazole Sodium 40 mg 07/28/19 11:00 Protonix - PO DAILY DINESH Prednisone 20 mg 07/28/19 10:00 Deltasone - PO DAILY [facility] ASSESSMENT/PLAN: 84M w/ pmh of HTN, HLD, GERD, hearing deficits(worse in Right ear), ?dementia, COPD(home O2, chronic prednisone), PPM(implanted 2014), CAD(1997), HFrEF(global hypokinesis, May 2018). CT A/P showing possible diverticulitis of cecum and sigmoid, Right kidney staghorn calculus, Right inginal hernia. On IV abx(zosyn) . Elevated CPK possibly 2/2 rhabdomyolysis but downtrended. Cr up to ~4-5, but UOP improving so HD was not pursued. Received lasix to remove excessive fluids. Received pRBC x1 on 07/25/19 for Hgb 7.7 and responded to 8.9. Podiatry consulted for BLE onchomycosis, had a few toenails debrided but patient refused others. Zosyn stopped on HD #6, for possible truncal drug rash. Abd pain resolving. Left IJ removed on 07/27/19. Strict I/Os, had indwelling gil but then removed for condom catheter. # Septic Shock --2/2 to likely diverticulitis of cecum and sigmoid > initial T 102.3 > initial BP 61/41 --MAP >65 > lactic acid 7.4->2.3->1.8 > CT A/P(07/20/19): diverticuli + fat stranding of cecum and sigmoid, ascites - s/p LR x1L, NS x2L - s/p Left IJ TLC --removed - s/p Left IJ TLC(07/25/19 - ) --dc'd 07/27/19 - pressors: levophd gtt(on 8mcg) --dc'd - stres-dose steroids: Solu-Cortef 100mg q8h -> 50mg q6h ->50mg q8h ->25mg q8h - > 25mg q12h --> prednisone 20mg - IVF --dc'd by ICU - empiric Zosyn(for diverticulitis and probable PNA) --stopped after abx day #6 # fungal dermatitis --probable drug rash - ketoconazole TP QD --stopped - zosyn --stopped on abx #6 # BLE onchomycosis - s/p Podiatry([facility]) nail debridement(a few nails) on 07/26/19 # acute on chronic abdominal pain --possibly hernial pain vs diverticulitis -- symptomatically resolving > FOBT neg > CT A/P --probable diverticulitis - zosyn --stopped on abx #6 - outpt c-scope in 6-8wks # unwitnessed fall --possible mechanical vs syncope # r/o rhabdomylsis --resolved > CT H --neg > CPK 3571 -> 1635 ->901 -> 135 -->42 - PT when stable # h/o CAD(1997) # troponinemia --possibly 2/2 to LAURA/CKD --stablized > Trop 0.06, 0.13, 0.15, 0.16, 0.14 > ECG - Ventricular paced rhythm with no St/T wave abnormalities. > CXR - Cardiomegaly, no pulmonary vascular congestion # LAURA vs CKD --possibly 2/2 sepsis/shock --worsening Cr > Cr ~ 3.9, 3.7, 4.1, 4.5, 4.8, 4.9, 4.4 --> 4.1; baseline Cr ~2.0 > CT A/P: right kidney staghorn calculi > US renal(07/22/19): small right Right kidney w/ nonobstructing stone, Left kidney no visualized - Consult Nephro: --avoid nephrotoxins --defer HD for another day as UOP has increased --furosemide 40mg IVP x1(07/27/19) --IVF TKO # Respiratory needs 2/2 COPD (on home O2, chronically on steroids) > CT chest(07/20/19): mod-severe COPD w/ Right basilar consolidation/ateletasis and trace pleural effusion > CXR(07/27/19): congestion and infiltrative changes - O2 needs: high-todd ->venti mask --> NC 2L - duonebs PRN - cw stress-dose steroids --weaning # NIDDM(reported to be not a diabetic) - BGM + ISS q6h # protein malnutrition > Alb 2.0 -->2.1 - encourage diet # chronic HLD --controlled w/ meds > CK 42 - restarted on home atorvastatin # chronic HTN --controlled w/ meds - initally held anti-hypertensive medications d/t shock - cw carvedilol 12.5mg BID # Chronic HFrEF > Echo(May 2018): global hypokinesis - hold MONE-I, Torsemide until resolution of acute issues - resumed home BB # Acute Hyperkalemia --resolved > K ~5.2 ->4.2 ->3.8 ->3.5 -->4.1 - fu lytes FEN - Diet: S&S: Dysphagia Pureed, honey thick - off mIVF - replete lytes PRN GI PPx - pantoprazole 40mg IVP DVT PPx - Heparin SQ Visit type - Emergency Visit Emergency Visit: No - New Patient This patient is new to me today: No - Critical Care Critical Care patient: No ATTENDING PHYSICIAN STATEMENT I saw and evaluated the patient. I reviewed the resident's note and discussed the case with the resident. I agree with the resident's findings and plan as documented. SUBJECTIVE: OBJECTIVE: ASSESSMENT AND PLAN:
[2019-07-28] MEDS: ASPIRIN COATED 81 MG TABLET.EC PO SCH (11:11)
[2019-07-28] MEDS: HEPARIN NA (PORCINE) 5,000 UNITS/ML 1ML VIAL SQ SCH ×2 (11:11→22:12)
[2019-07-28] MEDS: PANTOPRAZOLE 40 MG TABLET (FP) PO SCH (11:11)
[2019-07-28] MEDS: predniSONE 20 MG TABLET (UD) PO SCH (11:11)
[2019-07-28] MEDS: CARVEDILOL 12.5 MG TABLET (FP) PO SCH ×2 (11:11→22:13)
--- NOTE | 2019-07-28 11:18 | PN ---
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 Tolerating diet overtly. No longer coughing with PO intake. Rare speech initiation but said "I dont want any" when offered pudding. For MBS when stronger to r/o aspiration and for possible diet upgrade.
--- NOTE | 2019-07-28 11:54 | PN ---
Progress Note (short form) - Note Progress Note: PULMONARY Not answering questions. No fevers recorded. Vital Signs Period Temp Pulse Resp BP Sys/Mata Pulse Ox Last 24 Hr 97.3 F-98.6 F 69-102 18-20 130-146/59-79 95 Gen: NAD at rest Heart: RRR Lung: decreased breath sounds at the bases Abd: soft, nontender Ext: no edema CBC, BMP 07/28/19 06:25 07/28/19 06:25 Active Medications Acetaminophen (Tylenol -) 650 mg PO Q6H PRN PRN Reason: PAIN LEVEL 6-10 Albuterol/Ipratropium (Duoneb -) 1 amp NEB Q6H PRN PRN Reason: SHORT OF BREATH/WHEEZING Last Admin: 07/27/19 11:10 Dose: 1 amp Aspirin (Ecotrin -) 81 mg PO DAILY [facility] Last Admin: 07/28/19 11:11 Dose: 81 mg Atorvastatin Calcium (Lipitor -) 20 mg PO [facility] Carvedilol (Coreg -) 12.5 mg PO BID [facility] Last Admin: 07/28/19 11:11 Dose: 12.5 mg Diphenhydramine HCl (Benadryl -) 25 mg PO Q6H PRN PRN Reason: FOR ITCHING Last Admin: 07/26/19 19:11 Dose: 25 mg Heparin Sodium (Porcine) (Heparin -) 5,000 unit SQ BID [facility] Last Admin: 07/28/19 11:11 Dose: 5,000 unit Insulin Aspart (Novolog Vial Sliding Scale -) 1 vial SQ [facility]; Protocol Last Admin: 07/28/19 11:15 Dose: Not Given Pantoprazole Sodium (Protonix -) 40 mg PO DAILY [facility] Last Admin: 07/28/19 11:11 Dose: 40 mg Prednisone (Deltasone -) 20 mg PO DAILY [facility] Last Admin: 07/28/19 11:11 Dose: 20 mg A/P Suspected Pneumonia clinically improving r/o Acute Diverticulitis Septic Shock - resolved CAD/+Troponins likely Demand Ischemia Metabolic Acidosis Acute on Chronic Renal Failure COPD Chronic Hypoxic Respiratory Failure LV Systolic Dysfunction HTN DM Dementia - antibiotics completed - PO as tolerated - monitor urine output, creatinine - O2 to keep SpO2 >90% - wean steroids to home dose 10mg daily - inhaled bronchodilators - DVT/GI prophylaxis
--- NOTE | 2019-07-28 15:51 | PN ---
Progress Note, Physician History of Present Illness: AWAKE. NOT CONVERSANT BREATHING NON-LABORED ON NASAL CANNULA O2 AFEBRILE WITH ELEVATED WBC ON STEROIDS ERYTHEMATOUS RASH NOW MORE GENERALIZED - Current Medication List Current Medications: Active Medications Acetaminophen (Tylenol -) 650 mg PO Q6H PRN PRN Reason: PAIN LEVEL 6-10 Albuterol/Ipratropium (Duoneb -) 1 amp NEB Q6H PRN PRN Reason: SHORT OF BREATH/WHEEZING Last Admin: 07/27/19 11:10 Dose: 1 amp Aspirin (Ecotrin -) 81 mg PO DAILY [facility] Last Admin: 07/28/19 11:11 Dose: 81 mg Atorvastatin Calcium (Lipitor -) 20 mg PO HS [facility] Carvedilol (Coreg -) 12.5 mg PO BID [facility] Last Admin: 07/28/19 11:11 Dose: 12.5 mg Diphenhydramine HCl (Benadryl -) 25 mg PO Q6H PRN PRN Reason: FOR ITCHING Last Admin: 07/26/19 19:11 Dose: 25 mg Heparin Sodium (Porcine) (Heparin -) 5,000 unit SQ BID [facility] Last Admin: 07/28/19 11:11 Dose: 5,000 unit Insulin Aspart (Novolog Vial Sliding Scale -) 1 vial SQ [facility]; Protocol Last Admin: 07/28/19 11:15 Dose: Not Given Pantoprazole Sodium (Protonix -) 40 mg PO DAILY [facility] Last Admin: 07/28/19 11:11 Dose: 40 mg Prednisone (Deltasone -) 20 mg PO DAILY [facility] Last Admin: 07/28/19 11:11 Dose: 20 mg - Objective Vital Signs: Vital Signs Temperature 97.9 F 07/28/19 13:20 Pulse Rate 70 07/28/19 13:20 Respiratory Rate 20 07/28/19 13:20 Blood Pressure 110/50 L 07/28/19 13:20 O2 Sat by Pulse Oximetry (%) 95 07/27/19 21:00 Constitutional: Yes: No Distress Cardiovascular: Yes: Regular Rate and Rhythm, S1, S2 Respiratory: Yes: Diminished Gastrointestinal: Yes: Normal Bowel Sounds, Soft. No: Tenderness Edema: No Integumentary: Yes: Other (NOW WITH GENERALIZED RASH INVOLVING UE B/L, ABDOMEN, BACK) Labs: CBC, BMP 07/28/19 06:25 07/28/19 06:25 INR, PTT INR 1.44 (0.83-1.09) H 07/20/19 15:00 Assessment/Plan PROBABLE DRUG RASH ELEVATED WBC, LIKELY STEROID-INDUCED SEPTIC SHOCK IMPROVED COPD EXACERBATION PNEUMONIA ?DIVERTICULITIS RENAL FAILURE QUINOLONE ALLERGY OBS OBSERVE OFF ANTIBIOTICS BENADRYL PRN
--- NOTE | 2019-07-28 18:00 | PN ---
Progress Note, Physician History of Present Illness: Pt seen and examined at bedside. He appears comfortable. - Current Medication List Current Medications: Active Medications Acetaminophen (Tylenol -) 650 mg PO Q6H PRN PRN Reason: PAIN LEVEL 6-10 Albuterol/Ipratropium (Duoneb -) 1 amp NEB Q6H PRN PRN Reason: SHORT OF BREATH/WHEEZING Last Admin: 07/27/19 11:10 Dose: 1 amp Aspirin (Ecotrin -) 81 mg PO DAILY [facility] Last Admin: 07/28/19 11:11 Dose: 81 mg Atorvastatin Calcium (Lipitor -) 20 mg PO HS [facility] Carvedilol (Coreg -) 12.5 mg PO BID [facility] Last Admin: 07/28/19 11:11 Dose: 12.5 mg Diphenhydramine HCl (Benadryl -) 25 mg PO Q6H PRN PRN Reason: FOR ITCHING Last Admin: 07/26/19 19:11 Dose: 25 mg Heparin Sodium (Porcine) (Heparin -) 5,000 unit SQ BID [facility] Last Admin: 07/28/19 11:11 Dose: 5,000 unit Insulin Aspart (Novolog Vial Sliding Scale -) 1 vial SQ ACHS [facility]; Protocol Last Admin: 07/28/19 17:19 Dose: Not Given Pantoprazole Sodium (Protonix -) 40 mg PO DAILY [facility] Last Admin: 07/28/19 11:11 Dose: 40 mg Prednisone (Deltasone -) 20 mg PO DAILY [facility] Last Admin: 07/28/19 11:11 Dose: 20 mg - Objective Vital Signs: Vital Signs Temperature 97.9 F 07/28/19 13:20 Pulse Rate 70 07/28/19 13:20 Respiratory Rate 20 07/28/19 13:20 Blood Pressure 110/50 L 07/28/19 13:20 O2 Sat by Pulse Oximetry (%) 96 07/28/19 09:00 Constitutional: Yes: Calm Eyes: Yes: Conjunctiva Clear HENT: Yes: Atraumatic Neck: Yes: Supple Cardiovascular: Yes: S1, S2 Respiratory: Yes: CTA Bilaterally Gastrointestinal: Yes: Soft Genitourinary: Yes: Incontinence Musculoskeletal: Yes: Muscle Weakness Edema: No Integumentary: Yes: WNL Neurological: Yes: Confusion Labs: CBC, BMP 07/28/19 06:25 07/28/19 06:25 INR, PTT INR 1.44 (0.83-1.09) H 07/20/19 15:00 Problem List - Problems (1) Septic shock Code(s): A41.9 - SEPSIS, UNSPECIFIED ORGANISM; R65.21 - SEVERE SEPSIS WITH SEPTIC SHOCK (2) Acute kidney injury Code(s): N17.9 - ACUTE KIDNEY FAILURE, UNSPECIFIED Assessment/Plan Current Medications Generic Name Dose Route Start Last Admin Trade Name Freq PRN Reason Stop Dose Admin Acetaminophen 650 mg 07/26/19 16:29 Tylenol - PO Q6H PRN PAIN LEVEL 6-10 Albuterol/Ipratropium 1 amp 07/26/19 16:29 07/27/19 11:10 Duoneb - NEB 1 amp Q6H PRN Administration SHORT OF BREATH/WHEEZING Aspirin 81 mg 07/28/19 10:00 07/28/19 11:11 Ecotrin - PO 81 mg DAILY DINESH Administration Atorvastatin Calcium 20 mg 07/28/19 22:00 Lipitor - PO HS DINESH Carvedilol 12.5 mg 07/27/19 12:30 07/28/19 11:11 Coreg - PO 12.5 mg BID DINESH Administration Diphenhydramine HCl 25 mg 07/26/19 17:27 07/26/19 19:11 Benadryl - PO 25 mg Q6H PRN Administration FOR ITCHING Heparin Sodium (Porcine) 5,000 unit 07/26/19 22:00 07/28/19 11:11 Heparin - SQ 5,000 unit BID DINESH Administration Insulin Aspart 1 vial 07/26/19 22:00 07/28/19 17:19 Novolog Vial Sliding Scale - SQ Not Given ACHS [facility] Protocol Pantoprazole Sodium 40 mg 07/28/19 11:00 07/28/19 11:11 Protonix - PO 40 mg DAILY [facility]INESH Administration Prednisone 20 mg 07/28/19 10:00 07/28/19 11:11 Deltasone - PO 20 mg DAILY DINESH Administration Impression 1. LAURA 2. sepsis 3. pna 4. ckd 5. copd 6. dm 7. hx htn 8. dementia 9. rhabdo Plan - renal function is improving - cont to monitor - monitor urine output - monitor bp closely - avoid nephrotoxins - renal dose meds
[2019-07-28] MEDS: ALBUTEROL SO4 2.5/IPRATROPIUM 0.5 INH SOL 3 ML VIAL.NEB. NEB PRN (20:13)
[2019-07-28] MEDS ORDERED: ATORVASTATIN CA 20 MG TABLET (FP) PO SCH (22:00)
[2019-07-29] MEDS: INSULIN SLIDING SCALE (NOVOLOG) 1 VIAL SQ SCH ×3 (06:38→18:18)
[2019-07-29 07:37] LABS: BLOOD UREA NITROGEN 80.1 mg/dL (7-18); CALCIUM 7.6 mg/dL (8.5-10.1); CREATININE 3.8 mg/dL (0.55-1.3); PHOSPHOROUS 4.1 mg/dL (2.5-4.9); POTASSIUM 3.9 mmol/L (3.5-5.1)
[2019-07-29 10:22] LABS: BASO % 0.1 % (0-2.0); HEMATOCRIT 27.1 % (35.4-49); LYMPH % 3.9 % (8-40); MCH 27.5 pg (25.7-33.7); MCHC 33.2 g/dl (32.0-35.9); MEAN CELL VOLUME 82.9 fl (80-96); MEAN PLT VOLUME 8.9 fl (7.5-11.1); MONO % 4.2 % (3.8-10.2); NEUT % 89.8 % (42.8-82.8); PLATELET COUNT 252 K/MM3 (134-434); RBC 3.27 M/mm3 (4.00-5.60); RDW 17.6 % (11.9-15.9); WHITE BLOOD COUNT 14.4 K/mm3 (4.0-10.0)
[2019-07-29] MEDS: HEPARIN NA (PORCINE) 5,000 UNITS/ML 1ML VIAL SQ SCH (10:45)
[2019-07-29] MEDS: predniSONE 20 MG TABLET (UD) PO SCH (10:45)
[2019-07-29] MEDS: ASPIRIN COATED 81 MG TABLET.EC PO SCH (10:45)
[2019-07-29] MEDS: CARVEDILOL 12.5 MG TABLET (FP) PO SCH (10:45)
[2019-07-29] MEDS: PANTOPRAZOLE 40 MG TABLET (FP) PO SCH (10:45)
--- NOTE | 2019-07-29 11:13 | PN ---
Teaching Attending Note Name of Resident: Ross Thibodeaux ATTENDING PHYSICIAN STATEMENT I saw and evaluated the patient. I reviewed the resident's note and discussed the case with the resident. I agree with the resident's findings and plan as documented with exceptions below. SUBJECTIVE: Patient seen and examined, minimal participation, limited ROS. Comfortable in bed. OBJECTIVE: Vital Signs Period Temp Pulse Resp BP Sys/Mata Pulse Ox Last 24 Hr 97.9 F-98.4 F 67-87 18-20 110-152/50-94 95-95 Intake & Output 07/26/19 07/27/19 07/28/19 07/29/19 23:59 23:59 23:59 23:59 Intake Total 1440 550 970 120 Output Total 1650 2325 1700 Balance -210 -1775 -730 120 Weight 146 lb 12.8 oz 146 lb 12.8 oz General: lying in bed, no acute distress Chest: no rales appreciated, good air entry bilaterally Abdomen:soft, NT Extremities: no edema Home Medications Medication Instructions Recorded Amlodipine Besylate 10 mg PO DAILY 12/19/18 Aspirin Coated [Ecotrin -] 81 mg PO DAILY 12/19/18 Atorvastatin Ca [Lipitor] 20 mg PO HS 12/19/18 Carvedilol [Coreg -] 12.5 mg PO BID 12/19/18 Latanoprost/Pf [Latanoprost 0.005% 7.5 ml OP DAILY 12/19/18 Eye Drop] Losartan Potassium 100 mg PO DAILY 12/19/18 Pantoprazole Sodium 40 mg PO DAILY 12/19/18 Risperidone [Risperdal] 1 mg PO DAILY 12/19/18 Torsemide [Demadex -] 20 mg PO DAILY 12/19/18 predniSONE [Deltasone -] 10 mg PO ASDIR 10 Days #30 tablet 12/24/18 Cholecalciferol (Vitamin D3) 2,000 unit PO DAILY 07/21/19 [Vitamin D] Cyanocobalamin [Vitamin B12 -] 1,000 mcg PO DAILY 07/21/19 Active Medications Acetaminophen (Tylenol -) 650 mg PO Q6H PRN PRN Reason: PAIN LEVEL 6-10 Albuterol/Ipratropium (Duoneb -) 1 amp NEB Q6H PRN PRN Reason: SHORT OF BREATH/WHEEZING Last Admin: 07/28/19 20:13 Dose: 1 amp Aspirin (Ecotrin -) 81 mg PO DAILY [facility] Last Admin: 07/29/19 10:45 Dose: 81 mg Atorvastatin Calcium (Lipitor -) 20 mg PO HS [facility] Last Admin: 07/28/19 22:12 Dose: 20 mg Carvedilol (Coreg -) 12.5 mg PO BID [facility] Last Admin: 07/29/19 10:45 Dose: 12.5 mg Diphenhydramine HCl (Benadryl -) 25 mg PO Q6H PRN PRN Reason: FOR ITCHING Last Admin: 07/26/19 19:11 Dose: 25 mg Heparin Sodium (Porcine) (Heparin -) 5,000 unit SQ BID [facility] Last Admin: 07/29/19 10:45 Dose: 5,000 unit Insulin Aspart (Novolog Vial Sliding Scale -) 1 vial SQ ACHS [facility]; Protocol Last Admin: 07/29/19 06:38 Dose: Not Given Pantoprazole Sodium (Protonix -) 40 mg PO DAILY [facility] Last Admin: 07/29/19 10:45 Dose: 40 mg Prednisone (Deltasone -) 20 mg PO DAILY [facility] Last Admin: 07/29/19 10:45 Dose: 20 mg Laboratory Results - last 24 hr 07/25/19 07/28/19 07/28/19 09:50 11:13 17:17 WBC RBC Hgb Hct MCV MCH MCHC RDW Plt Count MPV Absolute Neuts (auto) Neutrophils % Lymphocytes % Monocytes % Eosinophils % Basophils % Nucleated RBC % Sodium Potassium Chloride Carbon Dioxide Anion Gap BUN Creatinine Est GFR (CKD-EPI)AfAm Est GFR (CKD-EPI)NonAf POC Glucometer 100 110 Random Glucose Calcium Phosphorus Magnesium Blood Type A POSITIVE Antibody Screen Negative Crossmatch See Detail 07/28/19 07/29/19 07/29/19 22:13 05:55 06:09 WBC RBC Hgb Hct MCV MCH MCHC RDW Plt Count MPV Absolute Neuts (auto) Neutrophils % Lymphocytes % Monocytes % Eosinophils % Basophils % Nucleated RBC % Sodium 141 Potassium 3.9 Chloride 109 H Carbon Dioxide 24 Anion Gap 8 BUN 80.1 H Creatinine 3.8 H Est GFR (CKD-EPI)AfAm 15.77 Est GFR (CKD-EPI)NonAf 13.60 POC Glucometer 100 110 Random Glucose 86 Calcium 7.6 L Phosphorus 4.1 Magnesium 2.0 Blood Type Antibody Screen Crossmatch 07/29/19 09:50 WBC 14.4 H RBC 3.27 L Hgb 9.0 L Hct 27.1 L MCV 82.9 MCH 27.5 MCHC 33.2 RDW 17.6 H Plt Count 252 MPV 8.9 Absolute Neuts (auto) 12.9 H Neutrophils % 89.8 H Lymphocytes % 3.9 L Monocytes % 4.2 Eosinophils % 2.0 Basophils % 0.1 D Nucleated RBC % 0 Sodium Potassium Chloride Carbon Dioxide Anion Gap BUN Creatinine Est GFR (CKD-EPI)AfAm Est GFR (CKD-EPI)NonAf POC Glucometer Random Glucose Calcium Phosphorus Magnesium Blood Type Antibody Screen Crossmatch Microbiology 07/20/19 15:00 Blood - Peripheral Venous Blood Culture - Final NO GROWTH AFTER 5 DAYS INCUBATION 07/20/19 15:00 Blood - Peripheral Venous Blood Culture - Final NO GROWTH AFTER 5 DAYS INCUBATION 07/20/19 16:11 Urine - Urine Clean Catch Urine Culture - Final NO GROWTH OBTAINED 07/21/19 13:30 Urine For Antigen Detection Legionella Antigen - Preliminary 07/21/19 13:30 Urine For Antigen Detection Streptococcus pneumoniae Antigen (M - Preliminary ASSESSMENT AND PLAN: 84 yom with PMHx of HTN, HLD, GERD, hearing deficits(worse in Right ear), dementia, COPD(home O2, chronic prednisone), PPM(implanted 2014), CAD(1997), HFrEF(global hypokinesis, May 2018) brought after found down down at home -Septic shock due to Diverticulitis+/- LLL PNA -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 -Type II DM -HTN -HLD -CAD Plan: Continues to improve. renal function improving and diuresing off additional lasix oxygenation at baseline. WBC improved, off abx. resume prednisone home dose 10 mg daily. COntinue ASA/statin/coreg. Will hold amlodipine on dc for now as BP stable off the same. Speech/swallow input noted. continue recs. Resume risperidone DVTPPX heparin, PPI PT eval/social work input noted Dc home +/- services today or in 24 hours if no concerns and disposition arranged Discussed with social work.
--- NOTE | 2019-07-29 12:40 | PN ---
Progress Note, Physician History of Present Illness: Pt seen and examined at bedside. He is awake and appears comfortable. - Current Medication List Current Medications: Active Medications Acetaminophen (Tylenol -) 650 mg PO Q6H PRN PRN Reason: PAIN LEVEL 6-10 Albuterol/Ipratropium (Duoneb -) 1 amp NEB Q6H PRN PRN Reason: SHORT OF BREATH/WHEEZING Last Admin: 07/28/19 20:13 Dose: 1 amp Aspirin (Ecotrin -) 81 mg PO DAILY [facility] Last Admin: 07/29/19 10:45 Dose: 81 mg Atorvastatin Calcium (Lipitor -) 20 mg PO HS [facility] Last Admin: 07/28/19 22:12 Dose: 20 mg Carvedilol (Coreg -) 12.5 mg PO BID [facility] Last Admin: 07/29/19 10:45 Dose: 12.5 mg Diphenhydramine HCl (Benadryl -) 25 mg PO Q6H PRN PRN Reason: FOR ITCHING Last Admin: 07/26/19 19:11 Dose: 25 mg Heparin Sodium (Porcine) (Heparin -) 5,000 unit SQ BID [facility] Last Admin: 07/29/19 10:45 Dose: 5,000 unit Insulin Aspart (Novolog Vial Sliding Scale -) 1 vial SQ ACHS [facility]; Protocol Last Admin: 07/29/19 12:28 Dose: Not Given Pantoprazole Sodium (Protonix -) 40 mg PO DAILY [facility] Last Admin: 07/29/19 10:45 Dose: 40 mg Prednisone (Deltasone -) 20 mg PO DAILY [facility] Last Admin: 07/29/19 10:45 Dose: 20 mg Risperidone (Risperdal -) 1 mg PO DAILY [facility] - Objective Vital Signs: Vital Signs Temperature 97.9 F 07/29/19 10:00 Pulse Rate 67 07/29/19 10:00 Respiratory Rate 18 07/29/19 10:00 Blood Pressure 114/76 07/29/19 10:00 O2 Sat by Pulse Oximetry (%) 95 07/29/19 08:58 Constitutional: Yes: Calm Eyes: Yes: Conjunctiva Clear HENT: Yes: Atraumatic Cardiovascular: Yes: S1, S2 Respiratory: Yes: On Nasal O2 Gastrointestinal: Yes: Soft Genitourinary: Yes: Incontinence Musculoskeletal: Yes: WNL Edema: No Integumentary: Yes: WNL Neurological: Yes: Confusion Labs: CBC, BMP 07/29/19 09:50 07/29/19 05:55 INR, PTT INR 1.44 (0.83-1.09) H 07/20/19 15:00 Problem List - Problems (1) Septic shock Code(s): A41.9 - SEPSIS, UNSPECIFIED ORGANISM; R65.21 - SEVERE SEPSIS WITH SEPTIC SHOCK (2) Acute kidney injury Code(s): N17.9 - ACUTE KIDNEY FAILURE, UNSPECIFIED Assessment/Plan Current Medications Generic Name Dose Route Start Last Admin Trade Name Freq PRN Reason Stop Dose Admin Acetaminophen 650 mg 07/26/19 16:29 Tylenol - PO Q6H PRN PAIN LEVEL 6-10 Albuterol/Ipratropium 1 amp 07/26/19 16:29 07/28/19 20:13 Duoneb - NEB 1 amp Q6H PRN Administration SHORT OF BREATH/WHEEZING Aspirin 81 mg 07/28/19 10:00 07/29/19 10:45 Ecotrin - PO 81 mg DAILY DINESH Administration Atorvastatin Calcium 20 mg 07/28/19 22:00 07/28/19 22:12 Lipitor - PO 20 mg HS DINESH Administration Carvedilol 12.5 mg 07/27/19 12:30 07/29/19 10:45 Coreg - PO 12.5 mg BID DINESH Administration Diphenhydramine HCl 25 mg 07/26/19 17:27 07/26/19 19:11 Benadryl - PO 25 mg Q6H PRN Administration FOR ITCHING Heparin Sodium (Porcine) 5,000 unit 07/26/19 22:00 07/29/19 10:45 Heparin - SQ 5,000 unit BID DINESH Administration Insulin Aspart 1 vial 07/26/19 22:00 07/29/19 12:28 Novolog Vial Sliding Scale - SQ Not Given ACHS [facility] Protocol Pantoprazole Sodium 40 mg 07/28/19 11:00 07/29/19 10:45 Protonix - PO 40 mg DAILY [facility] Administration Prednisone 20 mg 07/28/19 10:00 07/29/19 10:45 Deltasone - PO 20 mg DAILY [facility] Administration Risperidone 1 mg 07/30/19 10:00 Risperdal - PO DAILY [facility] Impression 1. LAURA 2. sepsis 3. pna 4. ckd 5. copd 6. dm 7. hx htn 8. dementia 9. rhabdo Plan - renal function continues to improve - volume status is stabilizing - encourage po intake - lasix prn - monitor bp closely - avoid nephrotoxins - renal dose meds
--- NOTE | 2019-07-29 13:23 | PN ---
Progress Note, Physician History of Present Illness: PULMONARY ALERT,NON-VERBAL,-RESP DISTRESS - Current Medication List Current Medications: Active Medications Acetaminophen (Tylenol -) 650 mg PO Q6H PRN PRN Reason: PAIN LEVEL 6-10 Albuterol/Ipratropium (Duoneb -) 1 amp NEB Q6H PRN PRN Reason: SHORT OF BREATH/WHEEZING Last Admin: 07/28/19 20:13 Dose: 1 amp Aspirin (Ecotrin -) 81 mg PO DAILY [facility] Last Admin: 07/29/19 10:45 Dose: 81 mg Atorvastatin Calcium (Lipitor -) 20 mg PO HS [facility] Last Admin: 07/28/19 22:12 Dose: 20 mg Carvedilol (Coreg -) 12.5 mg PO BID [facility] Last Admin: 07/29/19 10:45 Dose: 12.5 mg Diphenhydramine HCl (Benadryl -) 25 mg PO Q6H PRN PRN Reason: FOR ITCHING Last Admin: 07/26/19 19:11 Dose: 25 mg Heparin Sodium (Porcine) (Heparin -) 5,000 unit SQ BID [facility] Last Admin: 07/29/19 10:45 Dose: 5,000 unit Insulin Aspart (Novolog Vial Sliding Scale -) 1 vial SQ [facility]; Protocol Last Admin: 07/29/19 12:28 Dose: Not Given Pantoprazole Sodium (Protonix -) 40 mg PO DAILY [facility] Last Admin: 07/29/19 10:45 Dose: 40 mg Prednisone (Deltasone -) 20 mg PO DAILY [facility] Last Admin: 07/29/19 10:45 Dose: 20 mg Risperidone (Risperdal -) 1 mg PO DAILY [facility] - Objective Vital Signs: Vital Signs Temperature 97.9 F 07/29/19 10:00 Pulse Rate 67 07/29/19 10:00 Respiratory Rate 18 07/29/19 10:00 Blood Pressure 114/76 07/29/19 10:00 O2 Sat by Pulse Oximetry (%) 95 07/29/19 08:58 Constitutional: Yes: Calm, Thin Eyes: Yes: WNL HENT: Yes: WNL Neck: Yes: WNL Cardiovascular: Yes: Regular Rate and Rhythm, S1, S2 Respiratory: Yes: Diminished (POOR INSPIRATORY EFFORT) Gastrointestinal: Yes: Normal Bowel Sounds, Soft Extremities: Yes: WNL Edema: No Labs: CBC, BMP 07/29/19 09:50 07/29/19 05:55 INR, PTT INR 1.44 (0.83-1.09) H 07/20/19 15:00 Problem List - Problems (1) Septic shock Code(s): A41.9 - SEPSIS, UNSPECIFIED ORGANISM; R65.21 - SEVERE SEPSIS WITH SEPTIC SHOCK (2) Acute and chronic respiratory failure Code(s): J96.20 - ACUTE AND CHR RESP FAILURE, UNSP W HYPOXIA OR HYPERCAPNIA Qualifiers: Respiratory failure complication: hypoxia Qualified Code(s): J96.21 - Acute and chronic respiratory failure with hypoxia (3) Acute on chronic renal failure Code(s): N17.9 - ACUTE KIDNEY FAILURE, UNSPECIFIED; N18.9 - CHRONIC KIDNEY DISEASE, UNSPECIFIED Qualifiers: Chronic kidney disease stage: stage 3 (moderate) (4) BPH (benign prostatic hyperplasia) Code(s): N40.0 - BENIGN PROSTATIC HYPERPLASIA WITHOUT LOWER URINRY TRACT SYMP (5) COPD (chronic obstructive pulmonary disease) Code(s): J44.9 - CHRONIC OBSTRUCTIVE PULMONARY DISEASE, UNSPECIFIED Qualifiers: (6) Cardiac pacemaker in situ Code(s): Z95.0 - PRESENCE OF CARDIAC PACEMAKER (7) Pneumonia Code(s): J18.9 - PNEUMONIA, UNSPECIFIED ORGANISM (8) ASHD (arteriosclerotic heart disease) Code(s): I25.10 - ATHSCL HEART DISEASE OF [place] CORONARY ARTERY W/O ANG PCTRS (9) Diabetes mellitus Code(s): E11.9 - TYPE 2 DIABETES MELLITUS WITHOUT COMPLICATIONS Qualifiers: Diabetes mellitus type: type 2 Diabetes mellitus correction insulin use: without terminal computer operator use Diabetes mellitus complication status: with unspecified complications Assessment/Plan ASSESSMENT AND PLAN: Suspected Pneumonia clinically improved r/o Acute Diverticulitis Septic Shock - resolved CAD/+Troponins likely [place] Ischemia Metabolic Acidosis Acute on Chronic Renal Failure COPD Chronic Hypoxic Respiratory Failure LV Systolic Dysfunction HTN DM Dementia - ABX completed - PO as tolerated - Monitor urine output, creatinine - O2 - prednisone taper - Inhaled bronchodilators - DVT/GI prophylaxis DR HUDDLESTON
--- NOTE | 2019-07-29 14:19 | PN ---
Progress Note, ASSESSMENT COUNSELOR - Note Progress Note: Selected Entries 07/27/19 07/27/19 07/27/19 02:00 06:00 10:17 Breakfast 50% Lunch Supper Temperature 98.2 F 97.8 F 07/27/19 07/27/19 07/27/19 10:24 14:00 15:15 Breakfast Lunch 50% Supper Temperature 97.8 F 98.4 F 07/27/19 07/27/19 07/28/19 18:00 22:00 02:00 Breakfast Lunch Supper 100% Temperature 97.9 F 98.0 F 98.6 F 07/28/19 07/28/19 06:00 10:56 Breakfast 25% Lunch Supper Temperature 97.3 F L Laboratory Tests 07/26/19 07/27/19 07/28/19 05:30 06:10 06:25 WBC 12.7 H 16.8 H 14.8 H Selected Entries 07/29/19 07/29/19 07/29/19 02:00 05:55 10:00 Breakfast Temperature 98.2 F 98.4 F 97.9 F 07/29/19 11:16 Breakfast 75% Temperature Laboratory Tests 07/27/19 07/28/19 07/29/19 06:10 06:25 09:50 WBC 16.8 H 14.8 H 14.4 H On Dys puree/honey thick liquids. Tolerating diet overtly. No longer coughing with PO intake. MBS equip down. If d/c'd to nh, out pt mbs r/o aspiration and for possible diet upgrade.
--- NOTE | 2019-07-29 15:07 | DS ---
Physical Exam: SUBJECTIVE: Patient seen and examined OBJECTIVE: Vital Signs Period Temp Pulse Resp BP Sys/Mata Pulse Ox Last 24 Hr 97.9 F-98.4 F 67-87 18-20 114-152/60-94 95-95 PHYSICAL EXAM GENERAL: arouseablee, oriented to self, year. Refusing to answer additional questions HEAD: NC/AT, no hematomas noted, no facial lac noted EYES: sclera anicteric, mildly pale conjunctiva EARS, NOSE, THROAT: Ears normal, nares patent. Moist mucous membranes. Poor dentition NECK: no cervical LAD. Dressing over former Left IJ. LUNGS: CTA bilaterally. No wheezes, and no crackles. No accessory muscle use. Short, weak inspirations, RR >18. NC 3L HEART: Regular rate and rhythm, normal S1 and S2 without murmur, rub or gallop. Left chest wall w/ palpable PPM, no overlying erythema. ABDOMEN: Scaly skin. Right subcostal incisional scar. Right-sided subcostal bulge +20cm in size. ND. Mild tenderness with deep palpation to RUQ, and LLQ. MUSCULOSKELETAL: No bony deformities or tenderness. No skin tears, or ecchymosis at extremities. Long, yellowed fingernails/toenails UPPER EXTREMITIES: 2+ pulses, warm, well-perfused. No cyanosis. No clubbing. No peripheral edema. Warm extremities LOWER EXTREMITIES: 2+ pulses, warm, well-perfused. No calf tenderness. No peripheral edema. Warm extremities NEUROLOGICAL: follows commands. Benzene Washer Operator strength 5/5. Moves fingers and toes on command SKIN: dry, warm skin. Scaly skin. Blanching flat truncal rash extending into proximal arms and legs w/ irregular contours LABS Laboratory Results - last 24 hr 07/25/19 07/28/19 07/28/19 09:50 17:17 22:13 WBC RBC Hgb Hct MCV MCH MCHC RDW Plt Count MPV Absolute Neuts (auto) Neutrophils % Lymphocytes % Monocytes % Eosinophils % Basophils % Nucleated RBC % Sodium Potassium Chloride Carbon Dioxide Anion Gap BUN Creatinine Est GFR (CKD-EPI)AfAm Est GFR (CKD-EPI)NonAf POC Glucometer 110 100 Random Glucose Calcium Phosphorus Magnesium Blood Type A POSITIVE Antibody Screen Negative Crossmatch See Detail 07/29/19 07/29/19 07/29/19 05:55 06:09 09:50 WBC 14.4 H RBC 3.27 L Hgb 9.0 L Hct 27.1 L MCV 82.9 MCH 27.5 MCHC 33.2 RDW 17.6 H Plt Count 252 MPV 8.9 Absolute Neuts (auto) 12.9 H Neutrophils % 89.8 H Lymphocytes % 3.9 L Monocytes % 4.2 Eosinophils % 2.0 Basophils % 0.1 D Nucleated RBC % 0 Sodium 141 Potassium 3.9 Chloride 109 H Carbon Dioxide 24 Anion Gap 8 BUN 80.1 H Creatinine 3.8 H Est GFR (CKD-EPI)AfAm 15.77 Est GFR (CKD-EPI)NonAf 13.60 POC Glucometer 110 Random Glucose 86 Calcium 7.6 L Phosphorus 4.1 Magnesium 2.0 Blood Type Antibody Screen Crossmatch 07/29/19 12:06 WBC RBC Hgb Hct MCV MCH MCHC RDW Plt Count MPV Absolute Neuts (auto) Neutrophils % Lymphocytes % Monocytes % Eosinophils % Basophils % Nucleated RBC % Sodium Potassium Chloride Carbon Dioxide Anion Gap BUN Creatinine Est GFR (CKD-EPI)AfAm Est GFR (CKD-EPI)NonAf POC Glucometer 119 Random Glucose Calcium Phosphorus Magnesium Blood Type Antibody Screen Crossmatch HOSPITAL COURSE: 84M w/ pmh of HTN, HLD, GERD, hearing deficits(worse in Right ear), ?dementia, COPD(home O2, chronic prednisone), PPM(implanted 2014), CAD(1997), HFrEF(global hypokinesis, May 2018) BIBA after being found down, lethargic. Found to be hypotensive to SBP 60s, tachycardic, tachypnic. Started on levophed, bipap. CT A /P showing possible diverticulitis of cecum and sigmoid, Right kidney staghorn calculus, Right inginal hernia. On IV abx(zosyn). Elevated CPK possibly 2/2 rhabdomyolysis but downtrended. Cr up to ~4-5, but UOP improving so HD was not pursued. Received lasix to remove excessive fluids. Received pRBC x1 on 07/25/19 for Hgb 7.7 and responded to 8.9. Weaned off levophed on 07/23/19. BiPAP weaned to HiFlo, then NC 2L. Stress dose solucortef weaned down to prednisone 20mg/d. Podiatry consulted for BLE onchomycosis, had a few toenails debrided but patient refused others. Zosyn stopped on HD #6, for possible truncal drug rash. Abd pain resolved. Left IJ removed on 07/27/19. Strict I/Os, had indwelling gil but then removed for condom catheter. Creatinine downtrended to 3.8. Business Reporting Developer thought volume status was stable and okay for discharge to SNF. Hold amlodipine, losartan. To have repeat rpt Cr in SNF, to resume home torsemide if Cr continues to improve. Date of Admission:07/20/19 Date of Discharge: 07/29/19 Minutes to complete discharge: 20 Discharge Summary Problems reviewed: Yes Reason For Visit: SEPTIC SHOCK Current Active Problems Septic shock (Acute) Condition: Stable - Instructions Diet, Activity, Other Instructions: You were evaluated in the hospital after being found on the floor with low blood pressure. Imaging showed diverticulitis, which is an infection of the colon. You may also have had a pneumonia. Imaging also showed a small Right kidney with a large kidney stone, likely chronic. You received medications to increase your blood pressure and treat the infection. Eventually your blood pressure improved enough for you to be transferred out of the ICU. Bloodwork showed that your kidneys were not functioning well. They improved slowly, but they aren't at your baseline yet. You developed a rash on your chest, abdomen, arms, and legs. This rash is thought to be a reaction to the medications you received. You may follow up with dermatology if rash persists. You were deemed to be stable for discharge to a nursing facility to continue your recovery. Medications: --STOP taking Amlodipine --STOP taking Losartan Potassium --Hold Torsemide 20mg Daily; please repeat bloodwork for BMP tomorrow (). If Creatinine is 3.8 or less, you may resume Torsemide 20mg daily, and repeat BMP after 3 days. Please call primary care doctor or bander and cellophaner machine helper (Dr. Mahmood), if creatinine worsens. --Please continue taking your other home medications. Please follow-up with the Physicians below: - PCP: to discuss your hospitalization - Gastroenterology(Dr Cannon): to discuss your diverticulitis and plan for a colonoscopy in 6-8weeks after your discharge - Business Reporting Developer(Dr Mahmood): to discuss your chronic kidney disease, chronic Right kidney stone - Senior Biostatistician(Dr Masters): to discuss your chronic lung disease - Rim Technician(Dr Gayle): to discuss your chronic heart failure - Pharmacy Service Associate (Dr Quinn) - Speech/swallow therapist follow up in 1-2 weeks for MBS to see if your diet can be advance Additional instructions: - Diet: --puree diet with thickened liquids --continue your liquid intake but it should be restricted to less than 2 Liters daily - activity: increase activity as tolerated - monitor your daily weight, if you gain more than 3lbs in a day then you have have excess fluid in your body that can lead to worsening heart failure, notify doctor immediately - maintain your supplemental oxygen to keep your saturation above 92% Please seek immediate medical evaluation or go to the Emergency Department if you experience: - severe shortness of breath, trouble breathing, cough with brown sputum, chest pain, palpitations - severe abdominal pain, unresolving diarrhea, bloody bowel movements - fever, chills, weakness, fatigue Referrals: Jd Canonn DO [Staff Physician] - Luis Gayle MD [Staff Physician] - Jose Masters MD [Staff Physician] - Mary Mahmood MD [Staff Physician] - Disposition: HALF-WAY FACILITY - Home Medications Comprehensive Discharge Medication List: Ambulatory Orders Aspirin Coated [Ecotrin -] 81 mg PO DAILY 12/19/18 Atorvastatin Ca [Lipitor] 20 mg PO HS 12/19/18 Carvedilol [Coreg -] 12.5 mg PO BID 12/19/18 Latanoprost/Pf [Latanoprost 0.005% Eye Drop] 7.5 ml OP DAILY 12/19/18 Pantoprazole Sodium 40 mg PO DAILY 12/19/18 Risperidone [Risperdal] 1 mg PO DAILY 12/19/18 Cholecalciferol (Vitamin D3) [Vitamin D3] 2,000 unit PO DAILY 07/21/19 Cyanocobalamin [Vitamin B12 -] 1,000 mcg PO DAILY 07/21/19 Albuterol 2.5/Ipratropium 0.5 [Duoneb -] 1 amp NEB Q6H PRN amp 07/29/19 Diphenhydramine HCl [Benadryl Capsule -] 25 mg PO Q6H PRN #0 capsule 07/29/19 Prednisone 10 mg PO DAILY 07/29/19 Torsemide [Demadex -] 20 mg PO ASDIR #0 tab 07/29/19 This patient is new to me today: No Emergency Visit: No Critical Care patient: No - Discharge Referral Referred to [facility] No ATTENDING PHYSICIAN STATEMENT I saw and evaluated the patient. I reviewed the resident's note and discussed the case with the resident. I agree with the resident's findings and plan as documented. SUBJECTIVE: OBJECTIVE: ASSESSMENT AND PLAN:
[2019-07-29 18:47] VITALS: BP 148/81; PULSE 77; TEMP 98.2
[2019-07-30] MEDS ORDERED: risperiDONE 1 MG TABLET (FP) PO SCH (10:00)
== END 2019-07-29 19:30 | DRG 871 ==
LOC: JER 14:19 → JICU 17:12 → JERBED 18:04 → JICU 18:56 → J4S 07-26 16:06
PROVIDERS: ATTEND Hospitalist
PROC: 05HN33Z Insertion of Infusion Device into Left Internal Jugular Vein, Percutaneous Approach (ICD-10-PCS; principal; 2019-07-21)
PROC: 30233N1 Transfusion of Nonautologous Red Blood Cells into Peripheral Vein, Percutaneous Approach (ICD-10-PCS; 2019-07-25)
DX: A41.9 Sepsis, unspecified organism (principal); R65.21 Severe sepsis with septic shock; J18.9 Pneumonia, unspecified organism; N17.9 Acute kidney failure, unspecified; I50.22 Chronic systolic (congestive) heart failure; N18.4 Chronic kidney disease, stage 4 (severe); J98.11 Atelectasis; M62.82 Rhabdomyolysis; I24.8 Other forms of acute ischemic heart disease; E87.2 Acidosis; J96.11 Chronic respiratory failure with hypoxia; K57.92 Diverticulitis of intestine, part unspecified, without perforation or abscess without bleeding; E46 Unspecified protein-calorie malnutrition; I13.0 Hypertensive heart and chronic kidney disease with heart failure and stage 1 through stage 4 chronic kidney disease, or unspecified chronic kidney disease; E11.9 Type 2 diabetes mellitus without complications; I25.10 Atherosclerotic heart disease of native coronary artery without angina pectoris; J44.9 Chronic obstructive pulmonary disease, unspecified; I11.0 Hypertensive heart disease with heart failure; I50.9 Heart failure, unspecified; E78.5 Hyperlipidemia, unspecified; R55 Syncope and collapse; E87.5 Hyperkalemia; K21.9 Gastro-esophageal reflux disease without esophagitis; Z99.81 Dependence on supplemental oxygen; Z95.0 Presence of cardiac pacemaker; D64.9 Anemia, unspecified; F03.90 Unspecified dementia, unspecified severity, without behavioral disturbance, psychotic disturbance, mood disturbance, and anxiety; N20.0 Calculus of kidney; Z68.22 Body mass index [BMI] 22.0-22.9, adult; B35.1 Tinea unguium; L27.0 Generalized skin eruption due to drugs and medicaments taken internally; T50.995A Adverse effect of other drugs, medicaments and biological substances, initial encounter
CPT/HCPCS: 36415; 36430; 36600; 70450-TC; 71045-TC-FY; 71250-TC; 74176-TC; 76775-TC; 76856-TC; 80048; 80053; 81003; 82272; 82550; 82553; 82803; 82962; 83605; 83735; 84100; 84484; 85025; 85027; 85610; 85730; 86850; 86900; 86901; 86922; 87040; 87086; 87899; 93005; 93010; 93306-TC; 94640; 94660; 97116-GP; 97162-GP; 99285-25; J0131; J1644; J7030; P9058

== ENCOUNTER 2019-08-02 19:23 | Inpatient (IN) | payer OTHER, BC ==
--- NOTE | 2019-08-02 19:36 | PDOC ---
History of Present Illness - General Stated Complaint: RULE O/PNUEMONIA Time Seen by Provider: 08/02/19 19:36 Past History - Past Medical History Allergies/Adverse Reactions: Allergies Allergy/AdvReac Type Severity Reaction Status Date / Time Iodinated Contrast Media Allergy Rash Verified 07/20/19 14:41 [Iodinated Contrast Media - IV Dye] levofloxacin [From Levaquin] Allergy "RASH" Verified 07/20/19 14:41 Home Medications: Ambulatory Orders Aspirin Coated [Ecotrin -] 81 mg PO DAILY 12/19/18 Atorvastatin Ca [Lipitor] 20 mg PO HS 12/19/18 Carvedilol [Coreg -] 12.5 mg PO BID 12/19/18 Latanoprost/Pf [Latanoprost 0.005% Eye Drop] 7.5 ml OP DAILY 12/19/18 Pantoprazole Sodium 40 mg PO DAILY 12/19/18 Risperidone [Risperdal] 1 mg PO DAILY 12/19/18 Cholecalciferol (Vitamin D3) [Vitamin D3] 2,000 unit PO DAILY 07/21/19 Cyanocobalamin [Vitamin B12 -] 1,000 mcg PO DAILY 07/21/19 Albuterol 2.5/Ipratropium 0.5 [Duoneb -] 1 amp NEB Q6H PRN amp 07/29/19 Diphenhydramine HCl [Benadryl Capsule -] 25 mg PO Q6H PRN #0 capsule 07/29/19 Prednisone 10 mg PO DAILY 07/29/19 Torsemide [Demadex -] 20 mg PO ASDIR #0 tab 07/29/19 Anemia: No Asthma: (EMPHYSEMA-NASAL 2L) Cancer: No Cardiac Disorders: Yes CVA: No COPD: Yes (O2 dependent 2-3L NC) CHF: Yes (systolic) DVT: No Dementia: No Diabetes: Yes GI Disorders: Yes (GERD) Disorders: No HTN: Yes Hypercholesterolemia: Yes Liver Disease: No Seizures: No Thyroid Disease: No - Surgical History Abdominal Surgery: Yes Appendectomy: No Cardiac Surgery: Yes (Pacemaker) Cholecystectomy: Yes Lung Surgery: No Neurologic Surgery: No Orthopedic Surgery: No - Immunization History Td Vaccination: No TDAP Vaccination: No Immunization Up to Date: No - Psycho Social/Smoking Cessation Hx Smoking History: Unknown if ever smoked Have you smoked in the past 12 months: No If you are a former smoker, when did you quit?: 20 YRS AGO 'Breaking Loose' booklet given: 03/06/17 Hx Alcohol Use: No Drug/Substance Use Hx: No Substance Use Type: None Hx Substance Use Treatment: No
[2019-08-02] MEDS ORDERED: ACETAMINOPHEN 1000 MG/100 ML VIAL (NON FORMULARY) IVPB ONE (19:45)
--- NOTE | 2019-08-02 19:45 | PDOC ---
History of Present Illness - General Stated Complaint: RULE O/PNUEMONIA Time Seen by Provider: 08/02/19 19:36 History Source: EMS, [facility] Records Exam Limitations: Clinical Condition, Dementia - History of Present Illness Initial Comments: Pt is an 84 yo M, with PMH of HTN, HLD, GERD, severe CHF (on torsemide), CAD with pacemaker, anemia (requiring transfusion), CKD, COPD (3L O2 NC), and diverticulitis, who is presenting via EMS from [facility] for "lethargy and abnormal chest x-ray". Pt was recently discharged from [facility] after septic shock 2 /2 diverticulitis. Pt had worsening lethargy today, prompting a chest x-ray done today outpatient with "infiltrate in retrocardiac and RML". Pt cannot provide ROS due to clinical condition and dementia. Allergies: NKDA PCP: Nima ([facility]) Social: No current cigarette, alcohol, or drug use. No recent travel or sick contacts. Surgical: no relevant history. Family: no relevant history. 08/02/19 22:37 08/02/19 22:37 Is this a multiple visit Asthma Patient?: No Past History - Travel Traveled outside of the country in the last 30 days: No Close contact w/someone who was outside of country & ill: No - Past Medical History Allergies/Adverse Reactions: Allergies Allergy/AdvReac Type Severity Reaction Status Date / Time Iodinated Contrast Media Allergy Rash Verified 07/20/19 14:41 [Iodinated Contrast Media - IV Dye] levofloxacin [From Levaquin] Allergy "RASH" Verified 07/20/19 14:41 Home Medications: Ambulatory Orders Aspirin Coated [Ecotrin -] 81 mg PO DAILY 12/19/18 Atorvastatin Ca [Lipitor] 20 mg PO HS 12/19/18 Carvedilol [Coreg -] 12.5 mg PO BID 12/19/18 Latanoprost/Pf [Latanoprost 0.005% Eye Drop] 7.5 ml OP DAILY 12/19/18 Pantoprazole Sodium 40 mg PO DAILY 12/19/18 Risperidone [Risperdal] 1 mg PO DAILY 12/19/18 Cholecalciferol (Vitamin D3) [Vitamin D3] 2,000 unit PO DAILY 07/21/19 Cyanocobalamin [Vitamin B12 -] 1,000 mcg PO DAILY 07/21/19 Albuterol 2.5/Ipratropium 0.5 [Duoneb -] 1 amp NEB Q6H PRN amp 07/29/19 Diphenhydramine HCl [Benadryl Capsule -] 25 mg PO Q6H PRN #0 capsule 07/29/19 Prednisone 10 mg PO DAILY 07/29/19 Torsemide [Demadex -] 20 mg PO ASDIR #0 tab 07/29/19 Anemia: No Asthma: (EMPHYSEMA-NASAL 2L) Cancer: No Cardiac Disorders: Yes CVA: No COPD: Yes (O2 dependent 2-3L NC) CHF: Yes (systolic) DVT: No Dementia: No Diabetes: Yes GI Disorders: Yes (GERD) Disorders: No HTN: Yes Hypercholesterolemia: Yes Liver Disease: No Seizures: No Thyroid Disease: No - Surgical History Abdominal Surgery: Yes Appendectomy: No Cardiac Surgery: Yes (Pacemaker) Cholecystectomy: Yes Lung Surgery: No Neurologic Surgery: No Orthopedic Surgery: No - Immunization History Td Vaccination: No TDAP Vaccination: No Immunization Up to Date: No - Psycho Social/Smoking Cessation Hx Smoking History: Unknown if ever smoked Have you smoked in the past 12 months: No If you are a former smoker, when did you quit?: 20 YRS AGO 'Breaking Loose' booklet given: 03/06/17 Hx Alcohol Use: No Drug/Substance Use Hx: No Substance Use Type: None Hx Substance Use Treatment: No Respiratory Specific PMHX - Complaint Specific PMHX Hx Asthma: Yes Hx Pneumonia: Yes Review of Systems - Review of Systems Able to Perform ROS?: No (see HPI) *Physical Exam - Physical Exam Comments: Rectal temp 100.0, BP and O2 saturation stable, 96-98% on 3 L NC. Pt in NAD, normal body habitus. Pt with spontaneous eye opening, does not answer questions appropriately. resin coater generally intact, muscular strength and sensation intact. Moving all extremities with equal strength. No midline spinal tenderness, step-offs, or crepitus. Head normocephalic, atraumatic. Eyes PERRLA, EOMI. Oropharynx without erythema or exudates, no LAD b/l. No nasal congestion. +pt is extremely hard of hearing b/l Clear heart sounds, S1/S2, no JVD, or heart murmur. +b/l pitting edema to low shins. Coarse lung sounds b/l posterior bases, with no wheezing. No abdominal or CVA tenderness to palpation, no rebound, no guarding. Abdomen soft, non-distended, and with normoactive bowel sounds. Skin with diffuse scaly rash on extremities and scattered ecchymosis over areas from blood draws. 08/02/19 22:41 ED Treatment Course - LABORATORY CBC & Chemistry Diagram: 08/02/19 21:25 08/02/19 21:25 - RADIOLOGY Radiology Studies Ordered: Category Date Time Status CHEST X-RAY PORTABLE* [RAD] Stat Radiology 08/02/19 19:42 Ordered Medical Decision Making - Medical Decision Making Pt was seen at bedside, also will be seen by attending Dr. Maria. Pt presenting with "abnormal x-ray" and lethargy from baseline from [facility]. Pts vitals stable on his usual O2, with coarse b/l breath sounds at bases and b/l pitting edema. Will evaluate for infection (pneumonia, UTI) vs CHF vs worsening CKD vs anemia. Provided 1 g ofirmev for improvement of low grade fever, discomfort. Will continue to reassess pt and monitor for symptomatic improvement. 08/02/19 22:44 Daughter was at bedside with pt, is aware of transfusion history and that he may need additional IV lines, etc. Chest x-ray rotated; increased congestion CBC: anemia (7.9/26) -- ordered type and screen and 1 unit prbcs BUN/Cr at baseline BNP 31,985 -- providing 40 mg IV lasix UA showed UTI -- providing 1 g ceftriaxone Paged hospitalist team for admission. 08/02/19 22:49 Pt accepted to hospitalist team (Dr. Chan). 08/02/19 22:57 Discharge - Discharge Information Problems reviewed: Yes Clinical Impression/Diagnosis: Acute on chronic combined systolic and diastolic congestive heart failure Anemia Qualifiers: Anemia type: unspecified type Qualified Code(s): D64.9 - Anemia, unspecified CKD (chronic kidney disease) Qualifiers: Chronic kidney disease stage: unspecified stage Qualified Code(s): N18.9 - Chronic kidney disease, unspecified UTI (urinary tract infection) Qualifiers: Urinary tract infection type: site unspecified Hematuria presence: without hematuria Qualified Code(s): N39.0 - Urinary tract infection, site not specified Condition: Stable - Admission Yes - Follow up/Referral Referrals: Teo Herring MD [Primary Care Provider] - - Patient Discharge Instructions - Post Discharge Activity
--- NOTE | 2019-08-02 20:38 | PDOC ---
Documentation entered by Jaydon Samayoa SCRIBE, acting as scribe for Yara Maria MD. Yara Maria MD: This documentation has been prepared by the razaibeYao Daniel, SCRIBE, under my direction and personally reviewed by me in its entirety. I confirm that the documentation accurately reflects all work, treatment, procedures, and medical decision making performed by me. Attending Attestation - Resident Resident Name: TianaMaya - ED Attending Attestation I have performed the following: I have examined & evaluated the patient, The case was reviewed & discussed with the resident, I agree w/resident's findings & plan, Exceptions are as noted - HPI HPI: 08/02/19 19:46 The patient is an 84 year old male with a past medical history of COPD, CHF, CAD , diabetes, HLD, HTN and dementia here today from [facility] for evaluation of lethargy. As per the alf staff, the patient seemed less alert and more lethargic today. They also note that the patient had some infiltrate on his chest x-ray today. The patient was discharged on 07/29/19 after being admitted for sepsis. Patient unable to contribute to history, Allergies: iodinated contrast media, levofloxacin Surgical history: pacemaker PCP: Teo Herring - Physicial Exam PE: 08/02/19 19:46 GENERAL: Frail appearing elderly male in no acute distress. HEENT: Normocephalic, atraumatic. PERRLA, EOMI. No conjunctival pallor. Sclera are non- icteric. Moist mucous membranes. Oropharynx is clear. NECK: Supple. CARDIOVASCULAR: Regular rate and rhythm. No murmurs, rubs, or gallops. PULMONARY: No evidence of respiratory distress. Lungs clear to auscultation bilaterally. No wheezing, rales or rhonchi. ABDOMINAL: Slightly protuberant MUSCULOSKELETAL: +diffuse body tenderness to palpation. EXTREMITIES: +3 inch fingernails. No cyanosis. No clubbing. No edema. No calf tenderness. SKIN: Warm and dry. NEUROLOGICAL: Alert, moving his arms PSYCHIATRIC: Cooperative. 08/02/19 20:36 - Medical Decision Making 08/02/19 20:39 84-year-old male brought in by ambulance from [facility] for infiltrate found on chest x-ray Past medical history hypertension, hyperlipidemia, GERD, hearing deficits right greater than left, COPD home O2 dependent and chronic steroids, permanent pacemaker, coronary artery disease 08/02/19 22:53 Access is left RJ lungs coarse lungs sounds [id number] pt is on daily demedex hbg dropped to 7.9 and will need transfusion UTI+++ pt received antibiotics, diuretics and admitted to telemetry
[2019-08-02] MEDS ORDERED: ACETAMINOPHEN INJECTION 100 ML IVPB ONE (21:34)
[2019-08-02 21:42] LABS: BASO % 0.3 % (0-2.0); EOS % 0.1 % (0-4.5); HEMATOCRIT 23.6 % (35.4-49); HEMOGLOBIN 7.9 GM/dL (11.7-16.9); LYMPH % 6.4 % (8-40); MCH 28.3 pg (25.7-33.7); MCHC 33.5 g/dl (32.0-35.9); MEAN CELL VOLUME 84.5 fl (80-96); NEUT % 86.2 % (42.8-82.8); PLATELET COUNT 180 K/MM3 (134-434); RBC 2.79 M/mm3 (4.00-5.60); RDW 17.8 % (11.9-15.9); WHITE BLOOD COUNT 8.3 K/mm3 (4.0-10.0)
[2019-08-02 21:44] LABS: VENOUS PC02 39.6 mmHg (38-52)
[2019-08-02 21:45] LABS: EPI CELLS 0.1 /HPF (0-5/HPF); HYALINE CASTS 3 /lpf (0-8); PH,URINE 5.5 (5.0-8.0); URINE APPEARANCE CLOUDY; URINE BACTERIA 7288.7 /hpf (NEGATIVE); URINE BILIRUBIN NEGATIVE (NEGATIVE); URINE COLOR YELLOW; URINE GLUCOSE (UA) NEGATIVE (NEGATIVE); URINE KETONE NEGATIVE (NEGATIVE); URINE LEUK ESTERASE 1+ (NEGATIVE); URINE NITRITE NEGATIVE (NEGATIVE); URINE PROTEIN 1+ (NEGATIVE); URINE RBC 8 /hpf (0-4); URINE UROBILINOGEN 0.2 mg/dL (0.2-1.0); URINE WBC 71 /hpf (0-5)
[2019-08-02 21:46] LABS: VENOUS PO2 < 49 mmHg (28-48)
[2019-08-02 21:54] LABS: INR 1.21 (0.83-1.09); PROTHROMBIN TIME (PATIENT) 14.3 SEC (9.7-13.0)
[2019-08-02 22:17] LABS: ALBUMIN 2.1 g/dl (3.4-5.0); BLOOD UREA NITROGEN 66.3 mg/dL (7-18); CALCIUM 7.8 mg/dL (8.5-10.1); CREATININE 3.5 mg/dL (0.55-1.3); POTASSIUM 4.5 mmol/L (3.5-5.1); TOT PROT 5.3 g/dl (6.4-8.2)
[2019-08-02] MEDS ORDERED: FUROSEMIDE 40 MG/4 ML INJECTABLE VIAL IVPUSH ONE (22:21)
[2019-08-02] MEDS ORDERED: CEFTRIAXONE 1 GM in DEXTROSE 5%-WATER - 100 ML IVPB ONE (22:29)
[2019-08-02] MEDS ORDERED: FUROSEMIDE 40 MG/4 ML INJECTABLE VIAL ONE (22:39)
[2019-08-02] MEDS ORDERED: CEFTRIAXONE 1 GM/50 ML BAG ONE (22:39)
--- NOTE | 2019-08-02 23:07 | HP ---
Admitting History and Physical - Primary Care Physician PCP: Teo Herring (From [facility]) - Admission Chief Complaint: AMS, Abnormal Chest Xray History of Present Illness: This is a 84 y/o man from [facility] with a significant PMHx of COPD, CHF ( reduced EF), CAD, Diabetes, HLD, HTN, Dementia. per ED record: Who presents to the ED for evaluation of lethargy. As per the correction staff, the patient seemed less alert and more lethargic today. They also note that the patient had some infiltrate on his chest x-ray today. The patient was discharged on 07/29/19 after being admitted for sepsis. Patient unable to contribute to history due to Dementia. ED course was noted for: (1) BNP 66772 (2) Cr 3.5 (3) Chest Xray image- RML Infiltrate (4) UA- +nitrates, +3 leukocytes esterase, +3 blood, WBC 67, Bacteria 360 History Source: Family Member, Transfer Record Limitations to Obtaining History: Dementia - Past Medical History LAST CLEANER: Yes: Other (decreased hearing) Cardiovascular: Yes: CAD, CHF, HTN, Hyperlipdemia, Other (Right external carotid artery stenosis, tachycardia PPM) Pulmonary: Yes: COPD, O2 Dependent, Other (pulmonary nodules h/o invasive Aspergillosis) Gastrointestinal: Yes: Diverticulitis (as per today's CT), Diverticulosis, GERD , Other (left inguinal hernia, duodinitis, colon polyps) Renal/: Yes: Renal Inusuff, BPH, Hematuria, Other (bladder dysfunction) Heme/Onc: Yes: B12 Deficiency Infectious Disease: Yes: Other (h/o invasive pulmonary aspergillosis) Musculoskeletal: Yes: Chronic low back pain, Osteoarthritis, Other (dupuytren contracture) ENT: Yes: Other ([place]) Endocrine: Yes: Diabetes Mellitus - Past Surgical History Past Surgical History: Yes: Cholecystectomy (open), Permanent Pacemaker - Smoking History Smoking history: Unknown if ever smoked Have you smoked in the past 12 months: No If you are a former smoker, when did you quit?: 20 YRS AGO - Alcohol/Substance Use Hx Alcohol Use: No History of Substance Use: reports: None - Social History ADL: Family Assistance Occupation: , 4 children History of Recent Travel: No Home Medications - Allergies Allergies/Adverse Reactions: Allergies Allergy/AdvReac Type Severity Reaction Status Date / Time Iodinated Contrast Media Allergy Rash Verified 07/20/19 14:41 [Iodinated Contrast Media - IV Dye] levofloxacin [From Levaquin] Allergy "RASH" Verified 07/20/19 14:41 - Home Medications Home Medications: Ambulatory Orders Aspirin Coated [Ecotrin -] 81 mg PO DAILY 12/19/18 Atorvastatin Ca [Lipitor] 20 mg PO HS 12/19/18 Carvedilol [Coreg -] 12.5 mg PO BID 12/19/18 Latanoprost/Pf [Latanoprost 0.005% Eye Drop] 7.5 ml OP DAILY 12/19/18 Pantoprazole Sodium 40 mg PO DAILY 12/19/18 Risperidone [Risperdal] 1 mg PO DAILY 12/19/18 Cholecalciferol (Vitamin D3) [Vitamin D3] 2,000 unit PO DAILY 07/21/19 Cyanocobalamin [Vitamin B12 -] 1,000 mcg PO DAILY 07/21/19 Albuterol 2.5/Ipratropium 0.5 [Duoneb -] 1 amp NEB Q6H PRN amp 07/29/19 Diphenhydramine HCl [Benadryl Capsule -] 25 mg PO Q6H PRN #0 capsule 07/29/19 Prednisone 10 mg PO DAILY 07/29/19 Torsemide [Demadex -] 20 mg PO ASDIR #0 tab 07/29/19 Family Medical History Family History: Unable to Obtain Review of Systems Unable to obtain ROS, reason: Dementia Physical Examination Vital Signs: Vital Signs Temperature 100.0 F H 08/02/19 19:45 Pulse Rate 71 08/02/19 19:45 Respiratory Rate 24 H 08/02/19 19:45 Blood Pressure 131/56 L 08/02/19 19:45 O2 Sat by Pulse Oximetry (%) 96 08/02/19 19:45 Constitutional: Yes: No Distress, Calm Eyes: Yes: Conjunctiva Clear, PERRL HENT: Yes: Atraumatic, Normocephalic, Other (dry mucousa membranes) Neck: Yes: WNL, Supple, Trachea Midline Cardiovascular: Yes: Regular Rate and Rhythm, S1, S2 Respiratory: Yes: Diminished, On Nasal O2, Rhonchi Gastrointestinal: Yes: Normal Bowel Sounds, Soft ...Rectal Exam: Yes: Deferred Renal/: Yes: Incontinence Breast(s): Yes: WNL Musculoskeletal: Yes: WNL Extremities: Yes: WNL Edema: No Neurological: Yes: Lethargy Labs: CBC, BMP 08/02/19 21:25 08/02/19 21:25 Laboratory Results - last 24 hr 08/02/19 08/02/19 08/02/19 20:30 21:25 21:25 WBC RBC Hgb Hct MCV MCH MCHC RDW Plt Count MPV Absolute Neuts (auto) Neutrophils % Lymphocytes % Monocytes % Eosinophils % Basophils % Nucleated RBC % PT with INR 14.30 H INR 1.21 H PTT (Actin FS) 21.0 L VBG pH POC VBG pCO2 POC VBG pO2 VBG HCO3 VBG O2 Sat (Ritesh) VBG Base Excess Sodium 139 Potassium 4.5 Chloride 106 Carbon Dioxide 24 Anion Gap 8 BUN 66.3 H Creatinine 3.5 H Est GFR (CKD-EPI)AfAm 17.41 Est GFR (CKD-EPI)NonAf 15.02 Random Glucose 98 Lactic Acid Calcium 7.8 L Total Bilirubin 1.0 AST 11 L ALT 16 Alkaline Phosphatase 52 Creatine Kinase 38 Troponin I 0.04 B-Natriuretic Peptide 39715.0 H Total Protein 5.3 L Albumin 2.1 L Urine Color Yellow Urine Appearance Cloudy Urine pH 5.5 Ur Specific [place] 1.014 Urine Protein 1+ H Urine Glucose (UA) Negative Urine Ketones Negative Urine Blood Trace Urine Nitrite Negative Urine Bilirubin Negative Urine Urobilinogen 0.2 Ur Leukocyte Esterase 1+ H Urine WBC (Auto) 71 Urine RBC (Auto) 8 Urine Casts (Auto) 3 U Epithel Cells (Auto) 0.1 Urine Bacteria (Auto) 7288.7 08/02/19 08/02/19 08/02/19 21:25 21:25 21:28 WBC 8.3 RBC 2.79 L Hgb 7.9 L Hct 23.6 L MCV 84.5 MCH 28.3 MCHC 33.5 RDW 17.8 H Plt Count 180 D MPV 9.0 Absolute Neuts (auto) 7.1 Neutrophils % 86.2 H Lymphocytes % 6.4 L D Monocytes % 7.0 Eosinophils % 0.1 D Basophils % 0.3 Nucleated RBC % 0 PT with INR INR PTT (Actin FS) VBG pH 7.40 POC VBG pCO2 39.6 POC VBG pO2 < 49 H VBG HCO3 23.9 VBG O2 Sat (Ritesh) 55.3 L VBG Base Excess -0.3 Sodium Potassium Chloride Carbon Dioxide Anion Gap BUN Creatinine Est GFR (CKD-EPI)AfAm Est GFR (CKD-EPI)NonAf Random Glucose Lactic Acid 1.2 Calcium Total Bilirubin AST ALT Alkaline Phosphatase Creatine Kinase Troponin I B-Natriuretic Peptide Total Protein Albumin Urine Color Urine Appearance Urine pH Ur Specific [place] Urine Protein Urine Glucose (UA) Urine Ketones Urine Blood Urine Nitrite Urine Bilirubin Urine Urobilinogen Ur Leukocyte Esterase Urine WBC (Auto) Urine RBC (Auto) Urine Casts (Auto) U Epithel Cells (Auto) Urine Bacteria (Auto) Intake & Output 07/31/19 08/01/19 08/02/19 08/03/19 23:59 23:59 23:59 23:59 Weight 69.853 kg Current Medications Generic Name Dose Route Start Last Admin Trade Name Freq PRN Reason Stop Dose Admin Albuterol/Ipratropium 1 amp 08/03/19 07:01 Duoneb - NEB Q6H PRN SHORT OF BREATH/WHEEZING Aspirin 81 mg 08/03/19 10:00 Ecotrin - PO DAILY [facility] Atorvastatin Calcium 20 mg 08/03/19 22:00 Lipitor - PO HS DINESH Carvedilol 12.5 mg 08/03/19 10:00 Coreg - PO BID DINESH Ceftriaxone Sodium 1 gm/ 50 mls @ 100 mls/hr 08/03/19 10:00 Dextrose IVPB DAILY [facility] Protocol Latanoprost 1 drop 08/03/19 22:00 Xalatan 0.005% Eye Drops - OU HS DINESH Pantoprazole Sodium 40 mg 08/03/19 10:00 Protonix - PO DAILY DINESH Risperidone 1 mg 08/03/19 10:00 Risperdal - PO DAILY DINESH Torsemide 20 mg 08/03/19 07:15 Demadex - PO ASDIR DINESH Imaging - Results Chest X-ray: Image Reviewed EKG: Image Reviewed Problem List - Problems (1) Acute on chronic combined systolic and diastolic congestive heart failure Code(s): I50.43 - ACUTE ON CHRONIC COMBINED SYSTOLIC AND DIASTOLIC HRT FAIL (2) Pneumonia Code(s): J18.9 - PNEUMONIA, UNSPECIFIED ORGANISM (3) UTI (urinary tract infection) Code(s): N39.0 - URINARY TRACT INFECTION, SITE NOT SPECIFIED Qualifiers: Urinary tract infection type: site unspecified Hematuria presence: without hematuria Qualified Code(s): N39.0 - Urinary tract infection, site not specified (4) Acute on chronic renal failure Code(s): N17.9 - ACUTE KIDNEY FAILURE, UNSPECIFIED; N18.9 - CHRONIC KIDNEY DISEASE, UNSPECIFIED Qualifiers: Chronic kidney disease stage: stage 3 (moderate) (5) Anemia Code(s): D64.9 - ANEMIA, UNSPECIFIED Qualifiers: Anemia type: unspecified type Qualified Code(s): D64.9 - Anemia, unspecified (6) BPH (benign prostatic hyperplasia) Code(s): N40.0 - BENIGN PROSTATIC HYPERPLASIA WITHOUT LOWER URINRY TRACT SYMP (7) Cardiac pacemaker in situ Code(s): Z95.0 - PRESENCE OF CARDIAC PACEMAKER (8) ASHD (arteriosclerotic heart disease) Code(s): I25.10 - ATHSCL HEART DISEASE OF [place] CORONARY ARTERY W/O ANG PCTRS (9) Hyperlipidemia Code(s): E78.5 - HYPERLIPIDEMIA, UNSPECIFIED Qualifiers: Hyperlipidemia type: pure hypercholesterolemia Qualified Code(s): E78.00 - Pure hypercholesterolemia, unspecified (10) Hypertension Code(s): I10 - ESSENTIAL (PRIMARY) HYPERTENSION Qualifiers: Hypertension type: essential hypertension Qualified Code(s): I10 - Essential (primary) hypertension Assessment/Plan This is a 84 y/o man with a PMHx of Dementia, COPD, HTN, HLD, CHF (reduced EF), s/p PPM. Admitted to Telemetry for CHF Exacerbation, Pneumonia, Symptomatic Anemia, Acute on Chronic CKD, UTI for further evaluation of their emergent condition. Problems: CHF Exacerbation Pneumonia Symptomatic Anemia UTI Acute on Chronic CKD Dementia HTN HLD Plan: Admit to Telemetry Cardiac monitoring Appreciate Cardiology consult BNP [id number] Chest Xray reviewed EKG reviewed [id number] Score 3 Given Rocephin, Azithromycin in ED Will expand coverage for HAP, Failed Outpatient Therapy and recent ABX to Zosyn and Vancomycin renal dosing Appreciate ID consult Anemia likely secondary to CKD vs GIB PRBC x1 ordered in ED Stool Occult-pending Cr 3.5 (baseline 1.5-4.8) Consider Nephrology consult if condition worsens Monitor CBC, BMP O2 Continue home meds Strict INOs Daily Weights Functional Quadriplegia- Likely secondary to HF, Requires total care, Turn Q2H, Ten Lift prn, Heel Protectors, fall precautions, FEN- Fluid restriction, Replete lytes prn, Dysphagia Pureed Diet, Honey Thickened Liquids DVT ppx- SCDs, Hold Eliquis due to Anemia Dispo: Requires Inpatient Care Visit type - Emergency Visit Emergency Visit: Yes ED Registration Date: 08/02/19 Care time: The patient presented to the Emergency Department on the above date and was hospitalized for further evaluation of their emergent condition. - New Patient This patient is new to me today: Yes Date on this admission: 08/02/19 - Critical Care Critical Care patient: No
[2019-08-03] MEDS ORDERED: ALBUTEROL SO4 2.5/IPRATROPIUM 0.5 INH SOL 3 ML VIAL.NEB. NEB PRN (07:01)
[2019-08-03] MEDS ORDERED: TORSEMIDE 20 MG TABLET (FP) PO SCH (07:15)
[2019-08-03] MEDS ORDERED: VANCOMYCIN 1 GRAM (PRE-DOCKED) 1,000 MG/250 ML BAG IVPB SCH (08:00)
[2019-08-03 08:19] LABS: BASO % 0.4 % (0-2.0); EOS % 0.2 % (0-4.5); HEMATOCRIT 26.3 % (35.4-49); HEMOGLOBIN 8.9 GM/dL (11.7-16.9); LYMPH % 3.7 % (8-40); MCH 28.2 pg (25.7-33.7); MCHC 33.8 g/dl (32.0-35.9); MEAN CELL VOLUME 83.5 fl (80-96); MEAN PLT VOLUME 8.6 fl (7.5-11.1); MONO % 6.4 % (3.8-10.2); NEUT % 89.3 % (42.8-82.8); PLATELET COUNT 204 K/MM3 (134-434); RBC 3.15 M/mm3 (4.00-5.60); WHITE BLOOD COUNT 9.7 K/mm3 (4.0-10.0)
[2019-08-03 08:37] LABS: BLOOD UREA NITROGEN 67.6 mg/dL (7-18); CALCIUM 8.3 mg/dL (8.5-10.1); CREATININE 3.4 mg/dL (0.55-1.3)
[2019-08-03] MEDS ORDERED: VANCOMYCIN 1 GRAM (PRE-DOCKED) 1,000 MG/250 ML BAG IVPB ONE (09:25)
[2019-08-03] MEDS ORDERED: VANCOMYCIN 1,000 MG in DEXTROSE 5%-WATER - 250 ML IVPB SCH (10:00)
[2019-08-03] MEDS ORDERED: PIPERACILLIN/TAZOB 2.25 GM 2.25 GM in DEXTROSE 5%-WATER - 50 ML IVPB SCH (10:00)
--- NOTE | 2019-08-03 10:27 | PN ---
Progress Note (short form) - Note Progress Note: lethargic No distress Vital Signs - 24 hr 08/02/19 08/02/19 08/03/19 19:45 23:24 03:00 Temperature 100.0 F H Pulse Rate 71 Pulse Rate [ 75 Apical] Respiratory 24 H 18 Rate Blood Pressure 131/56 L Blood Pressure 115/42 L [Left Arm] O2 Sat by Pulse 96 97 98 Oximetry (%) 08/03/19 03:40 Temperature Pulse Rate Pulse Rate [ 79 Apical] Respiratory 20 Rate Blood Pressure Blood Pressure 121/68 [Left Arm] O2 Sat by Pulse 96 Oximetry (%) Current Medications Generic Name Dose Route Start Last Admin Trade Name Freq PRN Reason Stop Dose Admin Albuterol/Ipratropium 1 amp 08/03/19 07:01 Duoneb - NEB Q6H PRN SHORT OF BREATH/WHEEZING Aspirin 81 mg 08/03/19 10:00 Ecotrin - PO DAILY DINESH Atorvastatin Calcium 20 mg 08/03/19 22:00 Lipitor - PO HS DINESH Carvedilol 12.5 mg 08/03/19 10:00 Coreg - PO BID DINESH Ceftriaxone Sodium 1 gm/ 50 mls @ 100 mls/hr 08/03/19 10:00 Dextrose IVPB DAILY DINESH Protocol Vancomycin HCl 1,000 mg/ 250 mls @ 200 mls/hr 08/03/19 10:00 Dextrose IVPB Q24H DINESH Protocol Piperacillin Sod/Tazobactam 50 mls @ 100 mls/hr 08/03/19 10:00 Sod 2.25 gm/ Dextrose IVPB Q8H-IV DINESH Protocol Piperacillin Sod/Tazobactam 50 mls @ 100 mls/hr 08/03/19 10:00 Sod 2.25 gm/ Dextrose IVPB 08/04/19 09:59 Q8H-IV DINESH Protocol Latanoprost 1 drop 08/03/19 22:00 Xalatan 0.005% Eye Drops - OU HS DINESH Pantoprazole Sodium 40 mg 08/03/19 10:00 Protonix - PO DAILY DINESH Risperidone 1 mg 08/03/19 10:00 Risperdal - PO DAILY DINESH Laboratory Results - last 24 hr 08/02/19 08/02/19 08/02/19 20:30 21:25 21:25 WBC RBC Hgb Hct MCV MCH MCHC RDW Plt Count MPV Absolute Neuts (auto) Neutrophils % Lymphocytes % Monocytes % Eosinophils % Basophils % Nucleated RBC % PT with INR 14.30 H INR 1.21 H PTT (Actin FS) 21.0 L VBG pH POC VBG pCO2 POC VBG pO2 VBG HCO3 VBG O2 Sat (Ritesh) VBG Base Excess Sodium 139 Potassium 4.5 Chloride 106 Carbon Dioxide 24 Anion Gap 8 BUN 66.3 H Creatinine 3.5 H Est GFR (CKD-EPI)AfAm 17.41 Est GFR (CKD-EPI)NonAf 15.02 Random Glucose 98 Lactic Acid Calcium 7.8 L Total Bilirubin 1.0 AST 11 L ALT 16 Alkaline Phosphatase 52 Creatine Kinase 38 Troponin I 0.04 B-Natriuretic Peptide 03769.0 H Total Protein 5.3 L Albumin 2.1 L Urine Color Yellow Urine Appearance Cloudy Urine pH 5.5 Ur Specific [place] 1.014 Urine Protein 1+ H Urine Glucose (UA) Negative Urine Ketones Negative Urine Blood Trace Urine Nitrite Negative Urine Bilirubin Negative Urine Urobilinogen 0.2 Ur Leukocyte Esterase 1+ H Urine WBC (Auto) 71 Urine RBC (Auto) 8 Urine Casts (Auto) 3 U Epithel Cells (Auto) 0.1 Urine Bacteria (Auto) 7288.7 Blood Type Antibody Screen Crossmatch 08/02/19 08/02/19 08/02/19 21:25 21:25 21:28 WBC 8.3 RBC 2.79 L Hgb 7.9 L Hct 23.6 L MCV 84.5 MCH 28.3 MCHC 33.5 RDW 17.8 H Plt Count 180 D MPV 9.0 Absolute Neuts (auto) 7.1 Neutrophils % 86.2 H Lymphocytes % 6.4 L D Monocytes % 7.0 Eosinophils % 0.1 D Basophils % 0.3 Nucleated RBC % 0 PT with INR INR PTT (Actin FS) VBG pH 7.40 POC VBG pCO2 39.6 POC VBG pO2 < 49 H VBG HCO3 23.9 VBG O2 Sat (Ritesh) 55.3 L VBG Base Excess -0.3 Sodium Potassium Chloride Carbon Dioxide Anion Gap BUN Creatinine Est GFR (CKD-EPI)AfAm Est GFR (CKD-EPI)NonAf Random Glucose Lactic Acid 1.2 Calcium Total Bilirubin AST ALT Alkaline Phosphatase Creatine Kinase Troponin I B-Natriuretic Peptide Total Protein Albumin Urine Color Urine Appearance Urine pH Ur Specific [place] Urine Protein Urine Glucose (UA) Urine Ketones Urine Blood Urine Nitrite Urine Bilirubin Urine Urobilinogen Ur Leukocyte Esterase Urine WBC (Auto) Urine RBC (Auto) Urine Casts (Auto) U Epithel Cells (Auto) Urine Bacteria (Auto) Blood Type Antibody Screen Crossmatch 08/03/19 08/03/19 08/03/19 08:00 08:00 08:00 WBC 9.7 RBC 3.15 L Hgb 8.9 L Hct 26.3 L MCV 83.5 MCH 28.2 MCHC 33.8 RDW 18.0 H Plt Count 204 MPV 8.6 Absolute Neuts (auto) 8.6 H Neutrophils % 89.3 H Lymphocytes % 3.7 L D Monocytes % 6.4 Eosinophils % 0.2 D Basophils % 0.4 Nucleated RBC % 0 PT with INR INR PTT (Actin FS) VBG pH POC VBG pCO2 POC VBG pO2 VBG HCO3 VBG O2 Sat (Ritesh) VBG Base Excess Sodium 138 Potassium 4.0 Chloride 104 Carbon Dioxide 27 Anion Gap 8 BUN 67.6 H Creatinine 3.4 H Est GFR (CKD-EPI)AfAm 18.03 Est GFR (CKD-EPI)NonAf 15.56 Random Glucose 96 Lactic Acid Calcium 8.3 L Total Bilirubin AST ALT Alkaline Phosphatase Creatine Kinase Troponin I B-Natriuretic Peptide Total Protein Albumin Urine Color Urine Appearance Urine pH Ur Specific [place] Urine Protein Urine Glucose (UA) Urine Ketones Urine Blood Urine Nitrite Urine Bilirubin Urine Urobilinogen Ur Leukocyte Esterase Urine WBC (Auto) Urine RBC (Auto) Urine Casts (Auto) U Epithel Cells (Auto) Urine Bacteria (Auto) Blood Type A POSITIVE Antibody Screen Negative Crossmatch See Detail S1 S2 RRR Lungs crackles++ronchi++ Abd- soft, obese, NT No edema PLAN Iv antibiotics start lasix dc torsemide monitor renal function ID, Cardiology and renal eval place gil did not get PRBC -- may hold it--- Hb 8.9 Problem List - Problems (1) Acute on chronic combined systolic and diastolic congestive heart failure Code(s): I50.43 - ACUTE ON CHRONIC COMBINED SYSTOLIC AND DIASTOLIC HRT FAIL (2) Anemia Code(s): D64.9 - ANEMIA, UNSPECIFIED Qualifiers: Anemia type: unspecified type Qualified Code(s): D64.9 - Anemia, unspecified (3) Acute and chronic respiratory failure with hypoxia Code(s): J96.21 - ACUTE AND CHRONIC RESPIRATORY FAILURE WITH HYPOXIA (4) Acute on chronic renal failure Code(s): N17.9 - ACUTE KIDNEY FAILURE, UNSPECIFIED; N18.9 - CHRONIC KIDNEY DISEASE, UNSPECIFIED Qualifiers: Chronic kidney disease stage: stage 3 (moderate) (5) CHF (congestive heart failure) Code(s): I50.9 - HEART FAILURE, UNSPECIFIED Qualifiers: Heart failure type: combined systolic and diastolic Heart failure chronicity: chronic Qualified Code(s): I50.42 - Chronic combined systolic ( congestive) and diastolic (congestive) heart failure (6) COPD (chronic obstructive pulmonary disease) Code(s): J44.9 - CHRONIC OBSTRUCTIVE PULMONARY DISEASE, UNSPECIFIED Qualifiers: (7) Pneumonia Code(s): J18.9 - PNEUMONIA, UNSPECIFIED ORGANISM
[2019-08-03] MEDS ORDERED: FUROSEMIDE 40 MG/4 ML INJECTABLE VIAL IVPUSH ONE (10:29)
--- NOTE | 2019-08-03 10:36 | CON.CARD ---
Consult Consult Specialty:: Cardiology Referred by:: Ester Hill MD Reason for Consultation:: Systolic CHF - History of Present Illness Chief Complaint: Lethargy History of Present Illness: Patient is an 84 year old male from [facility] with underlying history of severe home O2 @ 4L and steroid dependent COPD with h/o flares, pulmonary aspergillosis, ASHD post demand ischemic injury, angina pectoris, type 2 DM, HTN , hypercholesterolemia, GERD, CKD and carotid stenosis, AV block s/p PPM, systolic dysfunction with h/o failure presented with lethargy, elevated BNP, CXR improved from 07/27. The patient was discharged on 07/29/19 after being admitted for sepsis. Patient unable to contribute to history due to Dementia. ED course was noted for: (1) BNP 64178 (2) Cr 3.5 (3) Chest Xray image- Improved congestion from 07/27 (4) UA- +nitrates, +3 leukocytes esterase, +3 blood, WBC 67, Bacteria 360 - History Source History Provided By: Medical Record Limitations to Obtaining History: Poor Historian - Past Medical History STORE HAND: Yes: Other (decreased hearing) Cardio/Vascular: Yes: CAD, CHF, HTN, Hyperlipdemia, Other (Right external carotid artery stenosis, tachycardia PPM) Pulmonary: Yes: COPD, O2 Dependent, Other (pulmonary nodules h/o invasive Aspergillosis) Gastrointestinal: Yes: Diverticulitis (as per today's CT), Diverticulosis, GERD , Other (left inguinal hernia, duodinitis, colon polyps) Renal/: Yes: Renal Inusuff, BPH, Hematuria, Other (bladder dysfunction) Infectious Disease: Yes: Other (h/o invasive pulmonary aspergillosis) Musculoskeletal: Yes: Chronic low back pain, Osteoarthritis, Other (dupuytren contracture) ENT: Yes: Other ([place]) Endocrine: Yes: Diabetes Mellitus - Past Surgical History Past Surgical History: Yes: Cholecystectomy (open), Permanent Pacemaker - Alcohol/Substance Use Hx Alcohol Use: No History of Substance Use: reports: None - Smoking History Smoking history: Unknown if ever smoked Have you smoked in the past 12 months: No If you are a former smoker, when did you quit?: 20 YRS AGO - Social History Usual Living Arrangement: With Child ADL: Family Assistance Occupation: , 4 children History of Recent Travel: No Home Medications - Allergies Allergies/Adverse Reactions: Allergies Allergy/AdvReac Type Severity Reaction Status Date / Time Iodinated Contrast Media Allergy Rash Verified 07/20/19 14:41 [Iodinated Contrast Media - IV Dye] levofloxacin [From Levaquin] Allergy "RASH" Verified 07/20/19 14:41 - Home Medications Home Medications: Ambulatory Orders Aspirin Coated [Ecotrin -] 81 mg PO DAILY 12/19/18 Atorvastatin Ca [Lipitor] 20 mg PO HS 12/19/18 Carvedilol [Coreg -] 12.5 mg PO BID 12/19/18 Latanoprost/Pf [Latanoprost 0.005% Eye Drop] 7.5 ml OP DAILY 12/19/18 Pantoprazole Sodium 40 mg PO DAILY 12/19/18 Risperidone [Risperdal] 1 mg PO DAILY 12/19/18 Cholecalciferol (Vitamin D3) [Vitamin D3] 2,000 unit PO DAILY 07/21/19 Cyanocobalamin [Vitamin B12 -] 1,000 mcg PO DAILY 07/21/19 Albuterol 2.5/Ipratropium 0.5 [Duoneb -] 1 amp NEB Q6H PRN amp 07/29/19 Diphenhydramine HCl [Benadryl Capsule -] 25 mg PO Q6H PRN #0 capsule 07/29/19 Prednisone 10 mg PO DAILY 07/29/19 Torsemide [Demadex -] 20 mg PO ASDIR #0 tab 07/29/19 Review of Systems Unable to obtain ROS, reason: Dementia Vital Signs: Vital Signs Temperature 100.0 F H 08/02/19 19:45 Pulse Rate 79 08/03/19 03:40 Respiratory Rate 20 08/03/19 03:40 Blood Pressure 121/68 08/03/19 03:40 O2 Sat by Pulse Oximetry (%) 96 08/03/19 03:40 Constitutional: Yes: No Distress, Calm, Thin Neck: Yes: Supple Respiratory: Yes: Regular, Diminished, On Nasal O2 Gastrointestinal: Yes: Soft, Hypoactive Bowel Sounds Cardiovascular: Yes: Regular Rate and Rhythm JVD: No Carotid Bruit: No Heart Sounds: Yes: S1, S2 Murmur: Yes: Systolic Murmur, Grade 1 Edema: No - Other Data Labs, Other Data: CBC, BMP 08/03/19 08:00 08/03/19 08:00 INR, PTT INR 1.21 (0.83-1.09) H 08/02/19 21:25 Troponin, BNP 08/02/19 21:25 Troponin I 0.04 B-Natriuretic Peptide 36803.0 H Troponin, BNP 08/02/19 21:25 Troponin I 0.04 B-Natriuretic Peptide 23272.0 H V-paced Ejection Fraction %: LVEF < 40 % Imaging - Results Chest X-ray: Report Reviewed (Improved congestion and pleural changes c/w 2018) Problem List - Problems (1) Acute on chronic combined systolic and diastolic congestive heart failure Code(s): I50.43 - ACUTE ON CHRONIC COMBINED SYSTOLIC AND DIASTOLIC HRT FAIL (2) Acute and chronic respiratory failure with hypoxia Code(s): J96.21 - ACUTE AND CHRONIC RESPIRATORY FAILURE WITH HYPOXIA (3) Acute on chronic renal failure Code(s): N17.9 - ACUTE KIDNEY FAILURE, UNSPECIFIED; N18.9 - CHRONIC KIDNEY DISEASE, UNSPECIFIED Qualifiers: Chronic kidney disease stage: stage 3 (moderate) (4) COPD (chronic obstructive pulmonary disease) Code(s): J44.9 - CHRONIC OBSTRUCTIVE PULMONARY DISEASE, UNSPECIFIED Qualifiers: (5) Cardiac pacemaker in situ Code(s): Z95.0 - PRESENCE OF CARDIAC PACEMAKER (6) Systolic dysfunction without heart failure Code(s): I51.9 - HEART DISEASE, UNSPECIFIED (7) ASHD (arteriosclerotic heart disease) Code(s): I25.10 - ATHSCL HEART DISEASE OF [place] CORONARY ARTERY W/O ANG PCTRS (8) Diabetes mellitus Code(s): E11.9 - TYPE 2 DIABETES MELLITUS WITHOUT COMPLICATIONS Qualifiers: Diabetes mellitus type: type 2 Diabetes mellitus mcc insulin use: without intermediate project manager use Diabetes mellitus complication status: with unspecified complications (9) Hyperlipidemia Code(s): E78.5 - HYPERLIPIDEMIA, UNSPECIFIED Qualifiers: Hyperlipidemia type: pure hypercholesterolemia Qualified Code(s): E78.00 - Pure hypercholesterolemia, unspecified (10) Hypertension Code(s): I10 - ESSENTIAL (PRIMARY) HYPERTENSION Qualifiers: Hypertension type: essential hypertension Qualified Code(s): I10 - Essential (primary) hypertension Assessment/Plan 10/26/14 Echo: Normal biventricular size and fxn without sig valve abnl 11/28/2016 Echo: Mod-severely decreased LV fxn with severe HK lateral and inferolateral, mold MR, TR RVSP 40-50 mmHg 11/12/2017 Echo: Mod-severely decreased LV fxn with severe HK inferior, mild TR mild effusion 06/02/2018 Echo: Mild-mod decreased LV fxn with apical dyskinesis, mild MR 07/21/2019 Echo: Mildly dilated LV with severely decreased LVEF, normal RV size and fxn, mild MR, tr TR, RV pacing 1. Chronic Hypoxic Respiratory Failure referable to 2. Chronic Systolic Heart Failure 3. Steroid and home O2-dependent COPD, post PNA and sepsis 4. CAD angina pectoris with demand ischemic injury for conservative medical management 5. Advanced AV block post pacemaker implant interrogated 11/2016 6. HTN 7. Hypercholesterolemia 8. DHEERAJ 9. Acute on CKD 10. Anemia with h/o diverticular disease 11. Dementia PLAN: 1. Hold diuretics with monitor renal fxn and electrolytes 2. Continue Carvedilol 12.5 bid, Lipitor 20 qhs, ASA 81 qd, and holding losartan 100 qd pending renal fxn stabilization 3. Bronchodilators, empiric abx course wean FIO2 for saO2>90% 4. Thank you for consultative opportunity
[2019-08-03] MEDS ORDERED: FUROSEMIDE 40 MG/4 ML INJECTABLE VIAL ONE ×2 (10:42→12:13)
[2019-08-03] MEDS ORDERED: PIPERACILLIN/TAZOB 3.375 GM 3.375 GM/50 ML BAG IVPB ONE (10:42)
--- NOTE | 2019-08-03 11:03 | EKG ---
Test Reason : Blood Pressure : / mmHG Vent. Rate : 068 BPM Atrial Rate : 068 BPM P-R Int : 172 ms QRS Dur : 196 ms QT Int : 492 ms P-R-T Axes : -07 -79 084 degrees QTc Int : 523 ms Atrial-sensed ventricular-paced rhythm ABNORMAL ECG WHEN COMPARED WITH ECG OF 20-JUL-2019 22:20, VENT. RATE HAS DECREASED BY 15 BPM Confirmed by ZEHRA ZAMORA, ROSINA ([id number]) on 08/03/2019 11:03:32 AM Referred By: Confirmed By:ROSINA SHAHID MD
[2019-08-03] MEDS ORDERED: PANTOPRAZOLE 40 MG TABLET (FP) ONE (11:56)
[2019-08-03] MEDS ORDERED: ASPIRIN COATED 81 MG TABLET.EC ONE (11:56)
[2019-08-03] MEDS ORDERED: CARVEDILOL 12.5 MG TABLET (FP) ONE (11:56)
[2019-08-03] MEDS ORDERED: CEFTRIAXONE 1 GM/50 ML BAG ONE (11:57)
[2019-08-03] MEDS ORDERED: risperiDONE 0.5 MG TABLET (FP) ONE (11:57)
[2019-08-03] MEDS: PANTOPRAZOLE 40 MG TABLET (FP) PO SCH (11:59)
[2019-08-03] MEDS: CEFTRIAXONE 1 GM in DEXTROSE 5%-WATER - 50 ML IVPB SCH (11:59)
[2019-08-03] MEDS: ASPIRIN COATED 81 MG TABLET.EC PO SCH (11:59)
[2019-08-03] MEDS: risperiDONE 1 MG TABLET (FP) PO SCH (11:59)
[2019-08-03] MEDS: CARVEDILOL 12.5 MG TABLET (FP) PO SCH ×2 (11:59→22:03)
[2019-08-03] MEDS ORDERED: PIPERACILLIN/TAZOB 2.25 GM 2.25 GM/50 ML BAG IVPB ONE (12:13)
--- NOTE | 2019-08-03 12:41 | CON.ID ---
Consult Consult Specialty:: infectious diseases Referred by:: eMlvin Reason for Consultation:: uti,ams - History of Present Illness History of Present Illness: 84 year old male from [facility] with underlying history of severe home O2 @ 4L and steroid dependent COPD with h/o flares, pulmonary aspergillosis, ASHD post demand ischemic injury, angina pectoris, type 2 DM, HTN, hypercholesterolemia, GERD, CKD and carotid stenosis, AV block s/p PPM, systolic dysfunction with h/o failure presented with lethargy, elevated BNP, CXR improved from 07/27. The patient was discharged on 07/29/19 after being admitted for sepsis. Patient unable to contribute to history due to Dementia. 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: Other (decreased hearing) Cardio/Vascular: Yes: CAD, CHF, HTN, Hyperlipdemia, Other (Right external carotid artery stenosis, tachycardia PPM) Pulmonary: Yes: COPD, O2 Dependent, Other (pulmonary nodules h/o invasive Aspergillosis) Gastrointestinal: Yes: Diverticulitis (as per today's CT), Diverticulosis, GERD , Other (left inguinal hernia, duodinitis, colon polyps) Renal/: Yes: Renal Inusuff, BPH, Hematuria, Other (bladder dysfunction) Infectious Disease: Yes: Other (h/o invasive pulmonary aspergillosis) Musculoskeletal: Yes: Chronic low back pain, Osteoarthritis, Other (dupuytren contracture) ENT: Yes: Other ([place]) Endocrine: Yes: Diabetes Mellitus - Past Surgical History Past Surgical History: Yes: Cholecystectomy (open), Permanent Pacemaker - Alcohol/Substance Use Hx Alcohol Use: No History of Substance Use: reports: None - Smoking History Smoking history: Unknown if ever smoked Have you smoked in the past 12 months: No If you are a former smoker, when did you quit?: 20 YRS AGO - Social History Usual Living Arrangement: With Child ADL: Family Assistance Occupation: , 4 children History of Recent Travel: No Home Medications - Allergies Allergies/Adverse Reactions: Allergies Allergy/AdvReac Type Severity Reaction Status Date / Time Iodinated Contrast Media Allergy Rash Verified 07/20/19 14:41 [Iodinated Contrast Media - IV Dye] levofloxacin [From Levaquin] Allergy "RASH" Verified 07/20/19 14:41 - Home Medications Home Medications: Ambulatory Orders RX: Aspirin Coated [Ecotrin -] 81 mg PO DAILY 12/19/18 RX: Atorvastatin Ca [Lipitor] 20 mg PO HS 12/19/18 RX: Carvedilol [Coreg -] 12.5 mg PO BID 12/19/18 RX: Latanoprost/Pf [Latanoprost 0.005% Eye Drop] 7.5 ml OP DAILY 12/19/18 RX: Pantoprazole Sodium 40 mg PO DAILY 12/19/18 RX: Risperidone [Risperdal] 1 mg PO DAILY 12/19/18 RX: Cholecalciferol (Vitamin D3) [Vitamin D3] 2,000 unit PO DAILY 07/21/19 RX: Cyanocobalamin [Vitamin B12 -] 1,000 mcg PO DAILY 07/21/19 RX: Albuterol 2.5/Ipratropium 0.5 [Duoneb -] 1 amp NEB Q6H PRN amp 07/29/19 RX: Diphenhydramine HCl [Benadryl Capsule -] 25 mg PO Q6H PRN #0 capsule RX: Prednisone 10 mg PO DAILY 07/29/19 RX: Torsemide [Demadex -] 20 mg PO ASDIR #0 tab 07/29/19 Review of Systems Unable to obtain ROS, reason: unable to obtain Physical Exam Vital Signs: Vital Signs Temperature 100.0 F H 08/02/19 19:45 Pulse Rate 79 08/03/19 03:40 Respiratory Rate 20 08/03/19 03:40 Blood Pressure 121/68 08/03/19 03:40 O2 Sat by Pulse Oximetry (%) 96 08/03/19 03:40 Constitutional: Yes: No Distress, Calm Cardiovascular: Yes: S1, S2, Other (murmur present) Respiratory: Yes: Regular, CTA Bilaterally Gastrointestinal: Yes: Normal Bowel Sounds, Soft Musculoskeletal: Yes: WNL Extremities: Yes: Other Integumentary: Yes: Other Neurological: Yes: Other (ams confused) Labs: CBC, BMP 08/03/19 08:00 08/03/19 08:00 Imaging - Results Chest X-ray: Report Reviewed, Image Reviewed Assessment/Plan Problem List - Problems (1) Acute on chronic combined systolic and diastolic congestive heart failure Code(s): I50.43 - ACUTE ON CHRONIC COMBINED SYSTOLIC AND DIASTOLIC HRT FAIL (2) Anemia Code(s): D64.9 - ANEMIA, UNSPECIFIED Qualifiers: Anemia type: unspecified type Qualified Code(s): D64.9 - Anemia, unspecified (3) Acute and chronic respiratory failure with hypoxia Code(s): J96.21 - ACUTE AND CHRONIC RESPIRATORY FAILURE WITH HYPOXIA (4) Acute on chronic renal failure Code(s): N17.9 - ACUTE KIDNEY FAILURE, UNSPECIFIED; N18.9 - CHRONIC KIDNEY DISEASE, UNSPECIFIED Qualifiers: Chronic kidney disease stage: stage 3 (moderate) (5) CHF (congestive heart failure) Code(s): I50.9 - HEART FAILURE, UNSPECIFIED Qualifiers: Heart failure type: combined systolic and diastolic Heart failure chronicity: chronic Qualified Code(s): I50.42 - Chronic combined systolic ( congestive) and diastolic (congestive) heart failure (6) COPD (chronic obstructive pulmonary disease) Code(s): J44.9 - CHRONIC OBSTRUCTIVE PULMONARY DISEASE, UNSPECIFIED Qualifiers: (7) Pneumonia Code(s): J18.9 - PNEUMONIA, UNSPECIFIED ORGANISM plan will start patient on abx await for all cx reports nutrition generalized care rest as per the team
--- NOTE | 2019-08-03 13:50 | CONSULT ---
Consult Consult Specialty:: Nephrology Reason for Consultation:: LAURA - History of Present Illness Chief Complaint: sent in for lethargy History of Present Illness: Pt is an 84 year old male with pmhx of laura, copd, chf, dm and cad who was sent in for lethargy. I was called to evaluate him for elevated creatinine. He was hospitalized and had an episode of LAURA. His renal function is improving. 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: Other (decreased hearing) Cardio/Vascular: Yes: CAD, CHF, HTN, Hyperlipdemia, Other (Right external carotid artery stenosis, tachycardia PPM) Pulmonary: Yes: COPD, O2 Dependent, Other (pulmonary nodules h/o invasive Aspergillosis) Gastrointestinal: Yes: Diverticulitis (as per today's CT), Diverticulosis, GERD , Other (left inguinal hernia, duodinitis, colon polyps) Renal/: Yes: Renal Inusuff, BPH, Hematuria, Other (bladder dysfunction) Infectious Disease: Yes: Other (h/o invasive pulmonary aspergillosis) Musculoskeletal: Yes: Chronic low back pain, Osteoarthritis, Other (dupuytren contracture) ENT: Yes: Other ([place]) Endocrine: Yes: Diabetes Mellitus - Past Surgical History Past Surgical History: Yes: Cholecystectomy (open), Permanent Pacemaker - Alcohol/Substance Use Hx Alcohol Use: No History of Substance Use: reports: None - Smoking History Smoking history: Unknown if ever smoked Have you smoked in the past 12 months: No If you are a former smoker, when did you quit?: 20 YRS AGO - Social History Usual Living Arrangement: With Child ADL: Family Assistance Occupation: , 4 children History of Recent Travel: No Home Medications - Allergies Allergies/Adverse Reactions: Allergies Allergy/AdvReac Type Severity Reaction Status Date / Time Iodinated Contrast Media Allergy Rash Verified 07/20/19 14:41 [Iodinated Contrast Media - IV Dye] levofloxacin [From Levaquin] Allergy "RASH" Verified 07/20/19 14:41 - Home Medications Home Medications: Ambulatory Orders Aspirin Coated [Ecotrin -] 81 mg PO DAILY 12/19/18 Atorvastatin Ca [Lipitor] 20 mg PO HS 12/19/18 Carvedilol [Coreg -] 12.5 mg PO BID 12/19/18 Latanoprost/Pf [Latanoprost 0.005% Eye Drop] 7.5 ml OP DAILY 12/19/18 Pantoprazole Sodium 40 mg PO DAILY 12/19/18 Risperidone [Risperdal] 1 mg PO DAILY 12/19/18 Cholecalciferol (Vitamin D3) [Vitamin D3] 2,000 unit PO DAILY 07/21/19 Cyanocobalamin [Vitamin B12 -] 1,000 mcg PO DAILY 07/21/19 Albuterol 2.5/Ipratropium 0.5 [Duoneb -] 1 amp NEB Q6H PRN amp 07/29/19 Diphenhydramine HCl [Benadryl Capsule -] 25 mg PO Q6H PRN #0 capsule 07/29/19 Prednisone 10 mg PO DAILY 07/29/19 Torsemide [Demadex -] 20 mg PO ASDIR #0 tab 07/29/19 Family Medical History Family History: Unable to Obtain Review of Systems Unable to obtain ROS, reason: poor historian - Review of Systems Constitutional: reports: Malaise HENT: reports: No Symptoms Cardiovascular: reports: No Symptoms Physical Exam Vital Signs: Vital Signs Temperature 100.0 F H 08/02/19 19:45 Pulse Rate 79 08/03/19 03:40 Respiratory Rate 20 08/03/19 03:40 Blood Pressure 121/68 08/03/19 03:40 O2 Sat by Pulse Oximetry (%) 96 08/03/19 03:40 Constitutional: Yes: Calm Eyes: Yes: Conjunctiva Clear HENT: Yes: Atraumatic Neck: Yes: Supple Cardiovascular: Yes: S1, S2 Respiratory: Yes: CTA Bilaterally Gastrointestinal: Yes: Normal Bowel Sounds, Soft Renal/: Yes: Incontinence Musculoskeletal: Yes: Muscle Weakness Edema: No Neurological: Yes: Confusion Labs: CBC, BMP 08/03/19 08:00 08/03/19 08:00 Imaging - Results Chest X-ray: Report Reviewed Problem List - Problems (1) CKD (chronic kidney disease) Code(s): N18.9 - CHRONIC KIDNEY DISEASE, UNSPECIFIED Qualifiers: Chronic kidney disease stage: unspecified stage Qualified Code(s): N18.9 - Chronic kidney disease, unspecified (2) Acute kidney injury Code(s): N17.9 - ACUTE KIDNEY FAILURE, UNSPECIFIED Assessment/Plan Current Medications Generic Name Dose Route Start Last Admin Trade Name Freq PRN Reason Stop Dose Admin Albuterol/Ipratropium 1 amp 08/03/19 07:01 Duoneb - NEB Q6H PRN SHORT OF BREATH/WHEEZING Aspirin 81 mg 08/03/19 10:00 08/03/19 11:59 Ecotrin - PO 81 mg DAILY DINESH Administration Atorvastatin Calcium 20 mg 08/03/19 22:00 Lipitor - PO HS DINESH Carvedilol 12.5 mg 08/03/19 10:00 08/03/19 11:59 Coreg - PO 12.5 mg BID DINESH Administration Ceftriaxone Sodium 1 gm/ 50 mls @ 100 mls/hr 08/03/19 10:00 08/03/19 11:59 Dextrose IVPB 100 mls/hr DAILY DINESH Administration Protocol Piperacillin Sod/Tazobactam 50 mls @ 100 mls/hr 08/03/19 18:00 Sod 2.25 gm/ Dextrose IVPB Q8H-IV DINESH Protocol Latanoprost 1 drop 08/03/19 22:00 Xalatan 0.005% Eye Drops - OU HS DINESH Pantoprazole Sodium 40 mg 08/03/19 10:00 08/03/19 11:59 Protonix - PO 40 mg DAILY DINESH Administration Risperidone 1 mg 08/03/19 10:00 08/03/19 11:59 Risperdal - PO 1 mg DAILY DINESH Administration Impression 1. LAURA 2. lethargy 3. recent pna and sepsis 4. ckd 5. copd 6. dm 7. hx htn 8. dementia Plan - renal function is improving - repeat labs in am - avoid nsaids - avoid nephrotoxins - encourage po intake - lasix prn - monitor bp
[2019-08-03] MEDS ORDERED: PIPERACILLIN/TAZOBACTAM 2.25 GM VIAL IVPB ONE (17:09)
[2019-08-03] MEDS ORDERED: DEXTROSE 5%-WATER - 50 ML IVPB ONE (17:10)
[2019-08-03] MEDS: PIPERACILLIN/TAZOB 2.25 GM 2.25 GM in DEXTROSE 5%-WATER - 50 ML IVPB SCH (17:12)
--- NOTE | 2019-08-03 22:00 | HOSP ---
Subjective - Review of Symptoms Events since last encounter: Hospitalist Encounter Notified by the RN that the patient's blood cultures are Gram + Cocci with clusters Patient currently being treated for HAP, UTI on Ceftriaxone and Zosyn, with ID following. RN to inform Primary Team in AM. Physical Examination Vital Signs: Vital Signs Temperature 100.4 F H 08/03/19 20:14 Pulse Rate 79 08/03/19 20:14 Respiratory Rate 19 08/03/19 21:00 Blood Pressure 150/72 08/03/19 20:14 O2 Sat by Pulse Oximetry (%) 100 08/03/19 21:00 Labs: CBC, BMP 08/03/19 08:00 08/03/19 08:00
[2019-08-03] MEDS: ATORVASTATIN CA 20 MG TABLET (FP) PO SCH (22:03)
[2019-08-03] MEDS: LATANOPROST 0.005% OPHTH SOLN 2.5ML BOTTLE OU SCH (22:44)
[2019-08-04] MEDS ORDERED: PIPERACILLIN/TAZOBACTAM 2.25 GM VIAL IVPB ONE ×3 (01:05→18:12)
[2019-08-04] MEDS ORDERED: DEXTROSE 5%-WATER - 50 ML IVPB ONE ×4 (01:06→18:13)
[2019-08-04] MEDS: PIPERACILLIN/TAZOB 2.25 GM 2.25 GM in DEXTROSE 5%-WATER - 50 ML IVPB SCH ×3 (01:26→18:59)
[2019-08-04 07:00] LABS: BASO % 0.5 % (0-2.0); EOS % 1.5 % (0-4.5); HEMATOCRIT 24.4 % (35.4-49); HEMOGLOBIN 8.2 GM/dL (11.7-16.9); LYMPH % 4.7 % (8-40); MCH 28.4 pg (25.7-33.7); MCHC 33.7 g/dl (32.0-35.9); MEAN CELL VOLUME 84.2 fl (80-96); MEAN PLT VOLUME 8.7 fl (7.5-11.1); MONO % 6.8 % (3.8-10.2); NEUT % 86.5 % (42.8-82.8); PLATELET COUNT 171 K/MM3 (134-434); WHITE BLOOD COUNT 7.3 K/mm3 (4.0-10.0)
[2019-08-04 07:45] LABS: BILIRUBIN,TOTAL 0.8 mg/dL (0.2-1); BLOOD UREA NITROGEN 64.1 mg/dL (7-18); CALCIUM 7.8 mg/dL (8.5-10.1); CREATININE 3.4 mg/dL (0.55-1.3); POTASSIUM 3.6 mmol/L (3.5-5.1); TOT PROT 5.4 g/dl (6.4-8.2)
[2019-08-04] MEDS ORDERED: cefTRIAXone SODIUM 1 GM VIAL ONE (09:50)
--- NOTE | 2019-08-04 10:01 | PN ---
Progress Note, Physician History of Present Illness: Lethargic, nonverbal, bld cx positive gram + cocci in clusters. LF GNB in urine. - Current Medication List Current Medications: Active Medications Albuterol/Ipratropium (Duoneb -) 1 amp NEB Q6H PRN PRN Reason: SHORT OF BREATH/WHEEZING Aspirin (Ecotrin -) 81 mg PO DAILY [facility] Last Admin: 08/03/19 11:59 Dose: 81 mg Atorvastatin Calcium (Lipitor -) 20 mg PO HS [facility] Last Admin: 08/03/19 22:03 Dose: 20 mg Carvedilol (Coreg -) 12.5 mg PO BID [facility] Last Admin: 08/03/19 22:03 Dose: 12.5 mg Ceftriaxone Sodium 1 gm/ (Dextrose) 50 mls @ 100 mls/hr IVPB DAILY [facility]; Protocol Last Admin: 08/03/19 11:59 Dose: 100 mls/hr Piperacillin Sod/Tazobactam (Sod 2.25 gm/ Dextrose) 50 mls @ 100 mls/hr IVPB Q8H-IV [facility]; Protocol Last Admin: 08/04/19 01:26 Dose: 100 mls/hr Latanoprost (Xalatan 0.005% Eye Drops -) 1 drop OU HS [facility] Last Admin: 08/03/19 22:44 Dose: 1 drop Pantoprazole Sodium (Protonix -) 40 mg PO DAILY [facility] Last Admin: 08/03/19 11:59 Dose: 40 mg Risperidone (Risperdal -) 1 mg PO DAILY [facility] Last Admin: 08/03/19 11:59 Dose: 1 mg - Objective Vital Signs: Vital Signs Temperature 97.9 F 08/04/19 06:00 Pulse Rate 73 08/04/19 06:00 Respiratory Rate 18 08/04/19 06:00 Blood Pressure 128/73 08/04/19 06:00 O2 Sat by Pulse Oximetry (%) 100 08/03/19 21:00 Constitutional: Yes: No Distress, Calm, Thin Neck: Yes: Supple Cardiovascular: Yes: Regular Rate and Rhythm Respiratory: Yes: Regular, Diminished, On Nasal O2 Gastrointestinal: Yes: Soft, Hypoactive Bowel Sounds Edema: No Labs: CBC, BMP 08/04/19 05:30 08/04/19 05:30 INR, PTT INR 1.21 (0.83-1.09) H 08/02/19 21:25 - ....Imaging EKG: Report Reviewed (Tele: V-paced) Problem List - Problems (1) Acute on chronic combined systolic and diastolic congestive heart failure Code(s): I50.43 - ACUTE ON CHRONIC COMBINED SYSTOLIC AND DIASTOLIC HRT FAIL (2) Acute and chronic respiratory failure with hypoxia Code(s): J96.21 - ACUTE AND CHRONIC RESPIRATORY FAILURE WITH HYPOXIA (3) Acute on chronic renal failure Code(s): N17.9 - ACUTE KIDNEY FAILURE, UNSPECIFIED; N18.9 - CHRONIC KIDNEY DISEASE, UNSPECIFIED Qualifiers: Chronic kidney disease stage: stage 3 (moderate) (4) COPD (chronic obstructive pulmonary disease) Code(s): J44.9 - CHRONIC OBSTRUCTIVE PULMONARY DISEASE, UNSPECIFIED Qualifiers: (5) Cardiac pacemaker in situ Code(s): Z95.0 - PRESENCE OF CARDIAC PACEMAKER (6) Systolic dysfunction without heart failure Code(s): I51.9 - HEART DISEASE, UNSPECIFIED (7) ASHD (arteriosclerotic heart disease) Code(s): I25.10 - ATHSCL HEART DISEASE OF [place] CORONARY ARTERY W/O ANG PCTRS (8) Diabetes mellitus Code(s): E11.9 - TYPE 2 DIABETES MELLITUS WITHOUT COMPLICATIONS Qualifiers: Diabetes mellitus type: type 2 Diabetes mellitus chcf insulin use: without chcf use Diabetes mellitus complication status: with unspecified complications (9) Hyperlipidemia Code(s): E78.5 - HYPERLIPIDEMIA, UNSPECIFIED Qualifiers: Hyperlipidemia type: pure hypercholesterolemia Qualified Code(s): E78.00 - Pure hypercholesterolemia, unspecified (10) Hypertension Code(s): I10 - ESSENTIAL (PRIMARY) HYPERTENSION Qualifiers: Hypertension type: essential hypertension Qualified Code(s): I10 - Essential (primary) hypertension Assessment/Plan 10/26/14 Echo: Normal biventricular size and fxn without sig valve abnl 11/28/2016 Echo: Mod-severely decreased LV fxn with severe HK lateral and inferolateral, mold MR, TR RVSP 40-50 mmHg 11/12/2017 Echo: Mod-severely decreased LV fxn with severe HK inferior, mild TR mild effusion 06/02/2018 Echo: Mild-mod decreased LV fxn with apical dyskinesis, mild MR 07/21/2019 Echo: Mildly dilated LV with severely decreased LVEF, normal RV size and fxn, mild MR, tr TR, RV pacing 1. Gram + Cocci with clusters sepsis, LF GNB UTI 2. Chronic Hypoxic Respiratory Failure referable to 3. Chronic Systolic Heart Failure 4. 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 Advanced AV block post pacemaker implant interrogated 11/2016 7. HTN 8. Hypercholesterolemia 9. DHEERAJ 10. Acute on CKD 11. Anemia with h/o diverticular disease 12. Dementia PLAN: 1. Hold diuretics with monitor renal fxn and electrolytes 2. Continue Carvedilol 12.5 bid, Lipitor 20 qhs, ASA 81 qd, and holding losartan 100 qd pending renal fxn stabilization 3. Bronchodilators, abx course per C&S, wean FIO2 for saO2>90% 4. GI and DVT prophylaxis
[2019-08-04] MEDS: CARVEDILOL 12.5 MG TABLET (FP) PO SCH ×2 (11:26→21:24)
[2019-08-04] MEDS: risperiDONE 1 MG TABLET (FP) PO SCH (11:27)
[2019-08-04] MEDS: ASPIRIN COATED 81 MG TABLET.EC PO SCH (11:27)
[2019-08-04] MEDS: PANTOPRAZOLE 40 MG TABLET (FP) PO SCH (11:27)
--- NOTE | 2019-08-04 11:29 | PN ---
Progress Note (short form) - Note Progress Note: awake now No distress not eating much per RN Vital Signs - 24 hr 08/03/19 08/03/19 08/03/19 15:00 17:24 20:14 Temperature 98.1 F 100.4 F H Pulse Rate 72 79 Respiratory 22 H 19 Rate Blood Pressure 153/94 150/72 O2 Sat by Pulse 96 98 Oximetry (%) 08/03/19 08/03/19 08/03/19 20:15 21:00 23:00 Temperature 98 F Pulse Rate 71 Respiratory 19 19 Rate Blood Pressure 146/69 O2 Sat by Pulse 100 100 Oximetry (%) 08/04/19 08/04/19 02:18 06:00 Temperature 99.8 F H 97.9 F Pulse Rate 76 73 Respiratory 18 18 Rate Blood Pressure 150/76 128/73 O2 Sat by Pulse Oximetry (%) Current Medications Generic Name Dose Route Start Last Admin Trade Name Freq PRN Reason Stop Dose Admin Albuterol/Ipratropium 1 amp 08/03/19 07:01 Duoneb - NEB Q6H PRN SHORT OF BREATH/WHEEZING Aspirin 81 mg 08/03/19 10:00 08/04/19 11:27 Ecotrin - PO 81 mg DAILY [facility] Administration Atorvastatin Calcium 20 mg 08/03/19 22:00 08/03/19 22:03 Lipitor - PO 20 mg HS [facility] Administration Carvedilol 12.5 mg 08/03/19 10:00 08/04/19 11:26 Coreg - PO 12.5 mg BID [facility] Administration Furosemide 40 mg 08/04/19 11:28 Lasix Injection - IVPUSH 08/04/19 11:29 ONCE ONE Heparin Sodium (Porcine) 5,000 unit 08/04/19 22:00 Heparin - SQ BID [facility] Piperacillin Sod/Tazobactam 50 mls @ 100 mls/hr 08/03/19 18:00 08/04/19 11:27 Sod 2.25 gm/ Dextrose IVPB 100 mls/hr Q8H-IV [facility] Administration Protocol Latanoprost 1 drop 08/03/19 22:00 08/03/19 22:44 Xalatan 0.005% Eye Drops - OU 1 drop HS [facility] Administration Pantoprazole Sodium 40 mg 08/03/19 10:00 08/04/19 11:27 Protonix - PO 40 mg DAILY [facility] Administration Risperidone 1 mg 08/03/19 10:00 08/04/19 11:27 Risperdal - PO 1 mg DAILY [facility] Administration Laboratory Results - last 24 hr 08/03/19 08/04/19 08/04/19 15:08 05:30 05:30 WBC 7.3 RBC 2.90 L Hgb 8.2 L Hct 24.4 L MCV 84.2 MCH 28.4 MCHC 33.7 RDW 18.0 H Plt Count 171 MPV 8.7 Absolute Neuts (auto) 6.3 Neutrophils % 86.5 H Lymphocytes % 4.7 L D Monocytes % 6.8 Eosinophils % 1.5 D Basophils % 0.5 Nucleated RBC % 0 Sodium 137 Potassium 3.6 Chloride 100 Carbon Dioxide 26 Anion Gap 11 BUN 64.1 H Creatinine 3.4 H Est GFR (CKD-EPI)AfAm 18.03 Est GFR (CKD-EPI)NonAf 15.56 Random Glucose 75 Lactic Acid 1.5 Calcium 7.8 L Total Bilirubin 0.8 AST 24 ALT 15 Alkaline Phosphatase 53 Total Protein 5.4 L Albumin 2.0 L Microbiology 08/02/19 20:30 Urine - Urine - Catheterized Urine Culture - Preliminary Lactose Fermenting Neg Bacilli Pending Organism 08/02/19 21:25 Blood - Peripheral Venous Blood Culture - Preliminary Pending Organism 08/02/19 21:28 Blood - Peripheral Venous Blood Culture - Preliminary Pending Organism S1 S2 RRR Lungs decreased breath sounds Abd- soft, obese, NT No edema PLAN Iv antibiotics stat dose lasix dc torsemide monitor renal function -->same ID, Cardiology and renal eval cultures noted check Echo start vanco-- spoke with ID Problem List - Problems (1) Acute on chronic combined systolic and diastolic congestive heart failure Code(s): I50.43 - ACUTE ON CHRONIC COMBINED SYSTOLIC AND DIASTOLIC HRT FAIL (2) Anemia Code(s): D64.9 - ANEMIA, UNSPECIFIED Qualifiers: Anemia type: unspecified type Qualified Code(s): D64.9 - Anemia, unspecified (3) Acute and chronic respiratory failure with hypoxia Code(s): J96.21 - ACUTE AND CHRONIC RESPIRATORY FAILURE WITH HYPOXIA (4) Acute on chronic renal failure Code(s): N17.9 - ACUTE KIDNEY FAILURE, UNSPECIFIED; N18.9 - CHRONIC KIDNEY DISEASE, UNSPECIFIED Qualifiers: Chronic kidney disease stage: stage 3 (moderate) (5) CHF (congestive heart failure) Code(s): I50.9 - HEART FAILURE, UNSPECIFIED Qualifiers: Heart failure type: combined systolic and diastolic Heart failure chronicity: chronic Qualified Code(s): I50.42 - Chronic combined systolic ( congestive) and diastolic (congestive) heart failure (6) COPD (chronic obstructive pulmonary disease) Code(s): J44.9 - CHRONIC OBSTRUCTIVE PULMONARY DISEASE, UNSPECIFIED Qualifiers: (7) Pneumonia Code(s): J18.9 - PNEUMONIA, UNSPECIFIED ORGANISM
[2019-08-04] MEDS ORDERED: FUROSEMIDE 40 MG/4 ML INJECTABLE VIAL IVPUSH ONE (11:30)
--- NOTE | 2019-08-04 11:31 | PN ---
Progress Note, Physician History of Present Illness: patient looks slightly better cx results noted - Current Medication List Current Medications: Active Medications Albuterol/Ipratropium (Duoneb -) 1 amp NEB Q6H PRN PRN Reason: SHORT OF BREATH/WHEEZING Aspirin (Ecotrin -) 81 mg PO DAILY [facility] Last Admin: 08/04/19 11:27 Dose: 81 mg Atorvastatin Calcium (Lipitor -) 20 mg PO HS [facility] Last Admin: 08/03/19 22:03 Dose: 20 mg Carvedilol (Coreg -) 12.5 mg PO BID [facility] Last Admin: 08/04/19 11:26 Dose: 12.5 mg Heparin Sodium (Porcine) (Heparin -) 5,000 unit SQ BID [facility] Piperacillin Sod/Tazobactam (Sod 2.25 gm/ Dextrose) 50 mls @ 100 mls/hr IVPB Q8H-IV [facility]; Protocol Last Admin: 08/04/19 11:27 Dose: 100 mls/hr Latanoprost (Xalatan 0.005% Eye Drops -) 1 drop OU HS [facility] Last Admin: 08/03/19 22:44 Dose: 1 drop Pantoprazole Sodium (Protonix -) 40 mg PO DAILY [facility] Last Admin: 08/04/19 11:27 Dose: 40 mg Risperidone (Risperdal -) 1 mg PO DAILY [facility] Last Admin: 08/04/19 11:27 Dose: 1 mg - Objective Vital Signs: Vital Signs Temperature 97.9 F 08/04/19 06:00 Pulse Rate 73 08/04/19 06:00 Respiratory Rate 18 08/04/19 06:00 Blood Pressure 128/73 08/04/19 06:00 O2 Sat by Pulse Oximetry (%) 100 08/03/19 21:00 Constitutional: Yes: No Distress, Calm Cardiovascular: Yes: S1, S2 Respiratory: Yes: On Nasal O2, Poor Air Entry, Rhonchi Gastrointestinal: Yes: Normal Bowel Sounds, Soft Musculoskeletal: Yes: WNL Extremities: Yes: WNL Neurological: Yes: Alert, Other Psychiatric: Yes: Other Labs: CBC, BMP 08/04/19 05:30 08/04/19 05:30 INR, PTT INR 1.21 (0.83-1.09) H 08/02/19 21:25 Assessment/Plan Problem List - Problems (1) Acute on chronic combined systolic and diastolic congestive heart failure Code(s): I50.43 - ACUTE ON CHRONIC COMBINED SYSTOLIC AND DIASTOLIC HRT FAIL (2) Anemia Code(s): D64.9 - ANEMIA, UNSPECIFIED Qualifiers: Anemia type: unspecified type Qualified Code(s): D64.9 - Anemia, unspecified (3) Acute and chronic respiratory failure with hypoxia Code(s): J96.21 - ACUTE AND CHRONIC RESPIRATORY FAILURE WITH HYPOXIA (4) Acute on chronic renal failure Code(s): N17.9 - ACUTE KIDNEY FAILURE, UNSPECIFIED; N18.9 - CHRONIC KIDNEY DISEASE, UNSPECIFIED Qualifiers: Chronic kidney disease stage: stage 3 (moderate) (5) CHF (congestive heart failure) Code(s): I50.9 - HEART FAILURE, UNSPECIFIED Qualifiers: Heart failure type: combined systolic and diastolic Heart failure chronicity: chronic Qualified Code(s): I50.42 - Chronic combined systolic ( congestive) and diastolic (congestive) heart failure (6) COPD (chronic obstructive pulmonary disease) Code(s): J44.9 - CHRONIC OBSTRUCTIVE PULMONARY DISEASE, UNSPECIFIED Qualifiers: (7) Pneumonia Code(s): J18.9 - PNEUMONIA, UNSPECIFIED ORGANISM plan vanco and kim echo repeat blood cx ordered rest as per the team
[2019-08-04] MEDS: CEFTRIAXONE 1 GM in DEXTROSE 5%-WATER - 50 ML IVPB SCH (11:54)
[2019-08-04] MEDS ORDERED: PT OWN MED DRAWER 7, Y5N ONE ×2 (12:25→13:09)
--- NOTE | 2019-08-04 13:52 | PN ---
Progress Note, Physician History of Present Illness: Pt seen and examined at bedside. He appears comfortable. - Current Medication List Current Medications: Active Medications Albuterol/Ipratropium (Duoneb -) 1 amp NEB Q6H PRN PRN Reason: SHORT OF BREATH/WHEEZING Aspirin (Ecotrin -) 81 mg PO DAILY [facility] Last Admin: 08/04/19 11:27 Dose: 81 mg Atorvastatin Calcium (Lipitor -) 20 mg PO HS [facility] Last Admin: 08/03/19 22:03 Dose: 20 mg Carvedilol (Coreg -) 12.5 mg PO BID [facility] Last Admin: 08/04/19 11:26 Dose: 12.5 mg Heparin Sodium (Porcine) (Heparin -) 5,000 unit SQ BID [facility] Piperacillin Sod/Tazobactam (Sod 2.25 gm/ Dextrose) 50 mls @ 100 mls/hr IVPB Q8H-IV [facility]; Protocol Last Admin: 08/04/19 11:27 Dose: 100 mls/hr Vancomycin HCl 1,250 mg/ (Dextrose) 250 mls @ 166.667 mls/hr IVPB Q12H [facility]; Protocol Latanoprost (Xalatan 0.005% Eye Drops -) 1 drop OU HS [facility] Last Admin: 08/03/19 22:44 Dose: 1 drop Pantoprazole Sodium (Protonix -) 40 mg PO DAILY [facility] Last Admin: 08/04/19 11:27 Dose: 40 mg Risperidone (Risperdal -) 1 mg PO DAILY [facility] Last Admin: 08/04/19 11:27 Dose: 1 mg - Objective Vital Signs: Vital Signs Temperature 97.9 F 08/04/19 06:00 Pulse Rate 73 08/04/19 06:00 Respiratory Rate 18 08/04/19 06:00 Blood Pressure 128/73 08/04/19 06:00 O2 Sat by Pulse Oximetry (%) 100 08/03/19 21:00 Constitutional: Yes: Calm Eyes: Yes: Conjunctiva Clear HENT: Yes: Atraumatic Neck: Yes: Supple Cardiovascular: Yes: S1, S2 Respiratory: Yes: On Nasal O2 Gastrointestinal: Yes: Soft Musculoskeletal: Yes: Muscle Weakness Edema: No Neurological: Yes: Confusion Labs: CBC, BMP 08/04/19 05:30 08/04/19 05:30 INR, PTT INR 1.21 (0.83-1.09) H 08/02/19 21:25 Problem List - Problems (1) CKD (chronic kidney disease) Code(s): N18.9 - CHRONIC KIDNEY DISEASE, UNSPECIFIED Qualifiers: Chronic kidney disease stage: unspecified stage Qualified Code(s): N18.9 - Chronic kidney disease, unspecified (2) Acute kidney injury Code(s): N17.9 - ACUTE KIDNEY FAILURE, UNSPECIFIED Assessment/Plan Current Medications Generic Name Dose Route Start Last Admin Trade Name Freq PRN Reason Stop Dose Admin Albuterol/Ipratropium 1 amp 08/03/19 07:01 Duoneb - NEB Q6H PRN SHORT OF BREATH/WHEEZING Aspirin 81 mg 08/03/19 10:00 08/04/19 11:27 Ecotrin - PO 81 mg DAILY [facility] Administration Atorvastatin Calcium 20 mg 08/03/19 22:00 08/03/19 22:03 Lipitor - PO 20 mg HS [facility] Administration Carvedilol 12.5 mg 08/03/19 10:00 08/04/19 11:26 Coreg - PO 12.5 mg BID [facility] Administration Heparin Sodium (Porcine) 5,000 unit 08/04/19 22:00 Heparin - SQ BID [facility] Piperacillin Sod/Tazobactam 50 mls @ 100 mls/hr 08/03/19 18:00 08/04/19 11:27 Sod 2.25 gm/ Dextrose IVPB 100 mls/hr Q8H-IV [facility] Administration Protocol Vancomycin HCl 1,250 mg/ 250 mls @ 166.667 mls/hr 08/04/19 11:45 Dextrose IVPB Q12H [facility] Protocol Latanoprost 1 drop 08/03/19 22:00 08/03/19 22:44 Xalatan 0.005% Eye Drops - OU 1 drop HS [facility] Administration Pantoprazole Sodium 40 mg 08/03/19 10:00 08/04/19 11:27 Protonix - PO 40 mg DAILY [facility] Administration Risperidone 1 mg 08/03/19 10:00 08/04/19 11:27 Risperdal - PO 1 mg DAILY [facility] Administration Impression 1. LAURA 2. lethargy 3. recent pna and sepsis 4. ckd 5. copd 6. dm 7. hx htn 8. dementia Plan - monitor renal function - encourage po intake - avoid nephrotoxins - avoid nsaids - abx per primary team - monitor bp
[2019-08-04] MEDS: VANCOMYCIN 1,250 MG in DEXTROSE 5%-WATER - 250 ML IVPB SCH ×2 (13:55→23:12)
--- NOTE | 2019-08-04 15:59 | ECHO ---
Name: ANTIONE NIX Exam:Adult Echocardiogram Study Date: 08/04/2019 11:55 AM Age: 84 yrs Height: 64 in Weight: 155 lb BSA: 1.8 m2 MMode/2D Measurements & Calculations IVSd: 1.2 cm Ao root diam: 2.8 cm LVIDd: 4.9 cm LA dimension: 2.5 cm LVIDs: 3.9 cm LVPWd: 1.5 cm LVPWs: 2.1 cm EDV(Teich): 115.2 ml ESV(Teich): 66.1 ml LVOT diam: 2.2 cm Doppler Measurements & Calculations MV V2 max: 81.4 cm/sec MV E max evan: 57.3 cm/sec MV max P.7 mmHg MV A max evan: 78.5 cm/sec MV V2 mean: 57.8 cm/sec MV E/A: 0.73 MV mean P.5 mmHg MV dec time: 0.18 sec MV V2 VTI: 25.7 cm Ao V2 max: 130.6 cm/sec LV V1 max P.6 mmHg Ao max P.8 mmHg LV V1 max: 80.0 cm/sec KENNA(V,D): 2.3 cm2 PA V2 max: 109.9 cm/sec Med Peak E' Evan: 3.6 cm/sec PA max P.8 mmHg Med E/e': 15.8 Lat Peak E' Evan: 3.1 cm/sec Lat E/e': 18.6 Procedure A complete two-dimensional transthoracic echocardiogram was performed (2D, M-mode, Doppler and color flow Doppler). Left Ventricle The left ventricle is mildly dilated. Left ventricular systolic function is severely reduced. Ejectio n Fraction = 30-35%. There is severe global hypokinesis of the left ventricle. Right Ventricle The right ventricle is normal in size and function. There is a pacemaker lead in the right ventricle. Atria Normal left and right atrial size and function. There is a catheter/pacemaker lead seen in the right atrium. Mitral Valve There is no mitral regurgitation noted. Tricuspid Valve There is trace tricuspid regurgitation. There was insufficient TR detected to calculate RV systolic p ressure. Aortic Valve No hemodynamically significant valvular aortic stenosis. No aortic regurgitation is present. Pulmonic Valve The pulmonic valve is not well visualized. Great Vessels The aortic root is normal size. Pericardium/Pleura There is no pericardial effusion. Interpretation Summary The left ventricle is mildly dilated. Left ventricular systolic function is severely reduced. There is severe global hypokinesis of the left ventricle. The right ventricle is normal in size and function. There is a pacemaker lead in the right ventricle. There is a catheter/pacemaker lead seen in the right atrium. There is trace tricuspid regurgitation. MD Luis Gayle 08/04/2019 03:58 PM
[2019-08-04] MEDS: ATORVASTATIN CA 20 MG TABLET (FP) PO SCH (21:24)
[2019-08-04] MEDS: HEPARIN NA (PORCINE) 5,000 UNITS/ML 1ML VIAL SQ SCH (21:27)
[2019-08-04] MEDS: LATANOPROST 0.005% OPHTH SOLN 2.5ML BOTTLE OU SCH (21:44)
[2019-08-05] MEDS ORDERED: PIPERACILLIN/TAZOBACTAM 2.25 GM VIAL IVPB ONE ×3 (01:20→15:32)
[2019-08-05] MEDS ORDERED: DEXTROSE 5%-WATER - 50 ML IVPB ONE ×3 (01:20→15:33)
[2019-08-05] MEDS: PIPERACILLIN/TAZOB 2.25 GM 2.25 GM in DEXTROSE 5%-WATER - 50 ML IVPB SCH ×3 (01:42→17:32)
[2019-08-05 06:34] LABS: BASO % 0.4 % (0-2.0); EOS % 1.7 % (0-4.5); HEMATOCRIT 24.2 % (35.4-49); HEMOGLOBIN 8.1 GM/dL (11.7-16.9); LYMPH % 5.8 % (8-40); MCHC 33.6 g/dl (32.0-35.9); MEAN CELL VOLUME 83.3 fl (80-96); MEAN PLT VOLUME 8.9 fl (7.5-11.1); MONO % 6.2 % (3.8-10.2); NEUT % 85.9 % (42.8-82.8); PLATELET COUNT 148 K/MM3 (134-434); RDW 18.3 % (11.9-15.9); WHITE BLOOD COUNT 7.7 K/mm3 (4.0-10.0)
[2019-08-05 07:01] LABS: ALBUMIN 1.9 g/dl (3.4-5.0); BILIRUBIN,TOTAL 0.8 mg/dL (0.2-1); BLOOD UREA NITROGEN 60.4 mg/dL (7-18); CALCIUM 7.7 mg/dL (8.5-10.1); CREATININE 3.5 mg/dL (0.55-1.3); POTASSIUM 3.2 mmol/L (3.5-5.1); TOT PROT 5.4 g/dl (6.4-8.2)
[2019-08-05] MEDS ORDERED: POTASSIUM CHLORIDE ORAL LIQUID 20 MEQ/15 ML PO ONE (09:08)
--- NOTE | 2019-08-05 10:25 | PN ---
Progress Note, Physician History of Present Illness: Lethargic, nonverbal, bld cx coag neg staph. Klebsiella PNA in urine. - Current Medication List Current Medications: Active Medications Albuterol/Ipratropium (Duoneb -) 1 amp NEB Q6H PRN PRN Reason: SHORT OF BREATH/WHEEZING Aspirin (Ecotrin -) 81 mg PO DAILY [facility] Last Admin: 08/04/19 11:27 Dose: 81 mg Atorvastatin Calcium (Lipitor -) 20 mg PO HS [facility] Last Admin: 08/04/19 21:24 Dose: 20 mg Carvedilol (Coreg -) 12.5 mg PO BID [facility] Last Admin: 08/04/19 21:24 Dose: 12.5 mg Heparin Sodium (Porcine) (Heparin -) 5,000 unit SQ BID [facility] Last Admin: 08/04/19 21:27 Dose: 5,000 unit Piperacillin Sod/Tazobactam (Sod 2.25 gm/ Dextrose) 50 mls @ 100 mls/hr IVPB Q8H-IV [facility]; Protocol Last Admin: 08/05/19 01:42 Dose: 100 mls/hr Vancomycin HCl 1,250 mg/ (Dextrose) 250 mls @ 166.667 mls/hr IVPB Q12H [facility]; Protocol Last Admin: 08/04/19 23:12 Dose: 166.667 mls/hr Latanoprost (Xalatan 0.005% Eye Drops -) 1 drop OU HS [facility] Last Admin: 08/04/19 21:44 Dose: 1 drop Pantoprazole Sodium (Protonix -) 40 mg PO DAILY [facility] Last Admin: 08/04/19 11:27 Dose: 40 mg Risperidone (Risperdal -) 1 mg PO DAILY [facility] Last Admin: 08/04/19 11:27 Dose: 1 mg - Objective Vital Signs: Vital Signs Temperature 99.9 F H 08/05/19 05:30 Pulse Rate 73 08/05/19 05:30 Respiratory Rate 20 08/05/19 05:30 Blood Pressure 121/59 L 08/05/19 05:30 O2 Sat by Pulse Oximetry (%) 98 08/04/19 21:00 Constitutional: Yes: No Distress, Calm, Thin Neck: Yes: Supple Cardiovascular: Yes: Regular Rate and Rhythm Respiratory: Yes: Regular, Diminished, On Nasal O2 Gastrointestinal: Yes: Soft, Hypoactive Bowel Sounds Genitourinary: Yes: Anthony Present Edema: No Labs: CBC, BMP 08/05/19 05:14 08/05/19 05:14 INR, PTT INR 1.21 (0.83-1.09) H 08/02/19 21:25 Problem List - Problems (1) Acute on chronic combined systolic and diastolic congestive heart failure Code(s): I50.43 - ACUTE ON CHRONIC COMBINED SYSTOLIC AND DIASTOLIC HRT FAIL (2) Acute and chronic respiratory failure with hypoxia Code(s): J96.21 - ACUTE AND CHRONIC RESPIRATORY FAILURE WITH HYPOXIA (3) Acute on chronic renal failure Code(s): N17.9 - ACUTE KIDNEY FAILURE, UNSPECIFIED; N18.9 - CHRONIC KIDNEY DISEASE, UNSPECIFIED Qualifiers: Chronic kidney disease stage: stage 3 (moderate) (4) COPD (chronic obstructive pulmonary disease) Code(s): J44.9 - CHRONIC OBSTRUCTIVE PULMONARY DISEASE, UNSPECIFIED Qualifiers: (5) Cardiac pacemaker in situ Code(s): Z95.0 - PRESENCE OF CARDIAC PACEMAKER (6) Systolic dysfunction without heart failure Code(s): I51.9 - HEART DISEASE, UNSPECIFIED (7) ASHD (arteriosclerotic heart disease) Code(s): I25.10 - ATHSCL HEART DISEASE OF [place] CORONARY ARTERY W/O ANG PCTRS (8) Diabetes mellitus Code(s): E11.9 - TYPE 2 DIABETES MELLITUS WITHOUT COMPLICATIONS Qualifiers: Diabetes mellitus type: type 2 Diabetes 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 renewal 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 insulin use: without skilled nursing use Diabetes mellitus complication status: with unspecified complications (9) Hyperlipidemia Code(s): E78.5 - HYPERLIPIDEMIA, UNSPECIFIED Qualifiers: Hyperlipidemia type: pure hypercholesterolemia Qualified Code(s): E78.00 - Pure hypercholesterolemia, unspecified (10) Hypertension Code(s): I10 - ESSENTIAL (PRIMARY) HYPERTENSION Qualifiers: Hypertension type: essential hypertension Qualified Code(s): I10 - Essential (primary) hypertension Assessment/Plan 10/26/14 Echo: Normal biventricular size and fxn without sig valve abnl 11/28/2016 Echo: Mod-severely decreased LV fxn with severe HK lateral and inferolateral, mold MR, TR RVSP 40-50 mmHg 11/12/2017 Echo: Mod-severely decreased LV fxn with severe HK inferior, mild TR mild effusion 06/02/2018 Echo: Mild-mod decreased LV fxn with apical dyskinesis, mild MR 07/21/2019 Echo: Mildly dilated LV with severely decreased LVEF, normal RV size and fxn, mild MR, tr TR, RV pacing 08/04/2019 Echo: Mildly dilated LV with severely decreased LVEF, normal RV size and fxn, tr TR RV pacemaker 1. Coag neg staph sepsis, Klebsiella PNA UTI 2. Chronic Hypoxic Respiratory Failure referable to 3. Chronic Systolic Heart Failure 4. 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 Advanced AV block post pacemaker implant interrogated 11/2016 7. HTN 8. Hypercholesterolemia 9. DHEERAJ 10. Acute on CKD 11. Anemia with h/o diverticular disease 12. Dementia PLAN: 1. Hold diuretics with monitor renal fxn and electrolytes 2. Continue Carvedilol 12.5 bid, Lipitor 20 qhs, ASA 81 qd, and holding losartan 100 qd pending renal fxn stabilization 3. Bronchodilators, abx course per C&S, wean FIO2 for saO2>90% 4. GI and DVT prophylaxis
[2019-08-05] MEDS: HEPARIN NA (PORCINE) 5,000 UNITS/ML 1ML VIAL SQ SCH ×2 (10:31→21:59)
[2019-08-05] MEDS: risperiDONE 1 MG TABLET (FP) PO SCH (10:31)
[2019-08-05] MEDS: CARVEDILOL 12.5 MG TABLET (FP) PO SCH ×2 (10:31→21:59)
[2019-08-05] MEDS: ASPIRIN COATED 81 MG TABLET.EC PO SCH (10:31)
[2019-08-05] MEDS: PANTOPRAZOLE 40 MG TABLET (FP) PO SCH (10:32)
[2019-08-05] MEDS ORDERED: PT OWN MED DRAWER 7, Y5N ONE ×3 (11:23→23:35)
[2019-08-05] MEDS: VANCOMYCIN 1,250 MG in DEXTROSE 5%-WATER - 250 ML IVPB SCH ×2 (11:31→23:39)
--- NOTE | 2019-08-05 12:48 | PN ---
Progress Note (short form) - Note Progress Note: PT SEEN/ EXAMINED CHART REVIEWED AWAKE/ NOT TALKING NO DISTRESS Vital Signs Temp 98.1 F 08/05/19 09:00 Pulse 69 08/05/19 09:00 Resp 25 H 08/05/19 09:00 BP 94/73 08/05/19 09:00 Pulse Ox 98 08/04/19 21:00 Intake & Output 08/04/19 08/05/19 08/05/19 23:59 11:59 23:59 Intake Total 360 420 Output Total 950 250 Balance -590 170 Weight 154 lb Intake: IVPB 300 Oral 360 120 Output: Urine 950 250 Anthony 950 250 Other: Voiding Method Indwelling Catheter Indwelling Catheter Bowel Movement No Weight Measurement Method Patient Lift Scale Active Medications Albuterol/Ipratropium (Duoneb -) 1 amp NEB Q6H PRN PRN Reason: SHORT OF BREATH/WHEEZING Aspirin (Ecotrin -) 81 mg PO DAILY [facility] Last Admin: 08/05/19 10:31 Dose: 81 mg Atorvastatin Calcium (Lipitor -) 20 mg PO HS [facility] Last Admin: 08/04/19 21:24 Dose: 20 mg Carvedilol (Coreg -) 12.5 mg PO BID [facility] Last Admin: 08/05/19 10:31 Dose: 12.5 mg Heparin Sodium (Porcine) (Heparin -) 5,000 unit SQ BID [facility] Last Admin: 08/05/19 10:31 Dose: 5,000 unit Piperacillin Sod/Tazobactam (Sod 2.25 gm/ Dextrose) 50 mls @ 100 mls/hr IVPB Q8H-IV [facility]; Protocol Last Admin: 08/05/19 10:30 Dose: 100 mls/hr Vancomycin HCl 1,250 mg/ (Dextrose) 250 mls @ 166.667 mls/hr IVPB Q12H [facility]; Protocol Last Admin: 08/05/19 11:31 Dose: 166.667 mls/hr Latanoprost (Xalatan 0.005% Eye Drops -) 1 drop OU HS [facility] Last Admin: 08/04/19 21:44 Dose: 1 drop Pantoprazole Sodium (Protonix -) 40 mg PO DAILY [facility] Last Admin: 08/05/19 10:32 Dose: 40 mg Risperidone (Risperdal -) 1 mg PO DAILY [facility] Last Admin: 08/05/19 10:31 Dose: 1 mg CBC, BMP 08/05/19 05:14 08/05/19 05:14 Microbiology 08/04/19 13:46 Legionella Antigen - Final Urine For Antigen Detection Streptococcus pneumoniae Antigen (M - Final 08/02/19 20:30 Urine Culture - Preliminary Urine - Urine - Catheterized Klebsiella Pneumoniae Group D Strep Or Entero Coccus 08/02/19 21:28 Blood Culture - Preliminary Blood - Peripheral Venous Staphylococcus Coagulase Neg 08/02/19 21:25 Blood Culture - Preliminary Blood - Peripheral Venous Staphylococcus Coagulase Neg Physical Exam Awake S1 S2 RRR Lungs decreased breath sounds Abd- soft, obese, NT No edema PLAN Meds reviewed Iv antibiotics monitor renal function -->same ID, Cardiology and renal following will follow Problem List - Problems (1) Acute on chronic combined systolic and diastolic congestive heart failure Code(s): I50.43 - ACUTE ON CHRONIC COMBINED SYSTOLIC AND DIASTOLIC HRT FAIL (2) Anemia Code(s): D64.9 - ANEMIA, UNSPECIFIED Qualifiers: Anemia type: unspecified type Qualified Code(s): D64.9 - Anemia, unspecified (3) Acute and chronic respiratory failure with hypoxia Code(s): J96.21 - ACUTE AND CHRONIC RESPIRATORY FAILURE WITH HYPOXIA (4) Acute on chronic renal failure Code(s): N17.9 - ACUTE KIDNEY FAILURE, UNSPECIFIED; N18.9 - CHRONIC KIDNEY DISEASE, UNSPECIFIED Qualifiers: Chronic kidney disease stage: stage 3 (moderate) (5) CHF (congestive heart failure) Code(s): I50.9 - HEART FAILURE, UNSPECIFIED Qualifiers: Heart failure type: combined systolic and diastolic Heart failure chronicity: chronic Qualified Code(s): I50.42 - Chronic combined systolic ( congestive) and diastolic (congestive) heart failure (6) COPD (chronic obstructive pulmonary disease) Code(s): J44.9 - CHRONIC OBSTRUCTIVE PULMONARY DISEASE, UNSPECIFIED Qualifiers: (7) Pneumonia Code(s): J18.9 - PNEUMONIA, UNSPECIFIED ORGANISM
--- NOTE | 2019-08-05 13:39 | PN ---
Progress Note, Physician History of Present Illness: patient lethargic non verbal - Current Medication List Current Medications: Active Medications Albuterol/Ipratropium (Duoneb -) 1 amp NEB Q6H PRN PRN Reason: SHORT OF BREATH/WHEEZING Aspirin (Ecotrin -) 81 mg PO DAILY [facility] Last Admin: 08/05/19 10:31 Dose: 81 mg Atorvastatin Calcium (Lipitor -) 20 mg PO HS [facility] Last Admin: 08/04/19 21:24 Dose: 20 mg Carvedilol (Coreg -) 12.5 mg PO BID [facility] Last Admin: 08/05/19 10:31 Dose: 12.5 mg Heparin Sodium (Porcine) (Heparin -) 5,000 unit SQ BID [facility] Last Admin: 08/05/19 10:31 Dose: 5,000 unit Piperacillin Sod/Tazobactam (Sod 2.25 gm/ Dextrose) 50 mls @ 100 mls/hr IVPB Q8H-IV [facility]; Protocol Last Admin: 08/05/19 10:30 Dose: 100 mls/hr Vancomycin HCl 1,250 mg/ (Dextrose) 250 mls @ 166.667 mls/hr IVPB Q12H [facility]; Protocol Last Admin: 08/05/19 11:31 Dose: 166.667 mls/hr Latanoprost (Xalatan 0.005% Eye Drops -) 1 drop OU HS [facility] Last Admin: 08/04/19 21:44 Dose: 1 drop Pantoprazole Sodium (Protonix -) 40 mg PO DAILY [facility] Last Admin: 08/05/19 10:32 Dose: 40 mg Risperidone (Risperdal -) 1 mg PO DAILY [facility] Last Admin: 08/05/19 10:31 Dose: 1 mg - Objective Vital Signs: Vital Signs Temperature 98.1 F 08/05/19 09:00 Pulse Rate 69 08/05/19 09:00 Respiratory Rate 25 H 08/05/19 09:00 Blood Pressure 94/73 08/05/19 09:00 O2 Sat by Pulse Oximetry (%) 98 08/04/19 21:00 Constitutional: Yes: No Distress, Calm Cardiovascular: Yes: S1, S2 Respiratory: Yes: Regular, CTA Bilaterally Gastrointestinal: Yes: Normal Bowel Sounds, Soft Genitourinary: Yes: Anthony Present Musculoskeletal: Yes: WNL Extremities: Yes: WNL Neurological: Yes: Other Labs: CBC, BMP 08/05/19 05:14 08/05/19 05:14 INR, PTT INR 1.21 (0.83-1.09) H 08/02/19 21:25 Assessment/Plan Problem List - Problems (1) Acute on chronic combined systolic and diastolic congestive heart failure Code(s): I50.43 - ACUTE ON CHRONIC COMBINED SYSTOLIC AND DIASTOLIC HRT FAIL (2) Anemia Code(s): D64.9 - ANEMIA, UNSPECIFIED Qualifiers: Anemia type: unspecified type Qualified Code(s): D64.9 - Anemia, unspecified (3) Acute and chronic respiratory failure with hypoxia Code(s): J96.21 - ACUTE AND CHRONIC RESPIRATORY FAILURE WITH HYPOXIA (4) Acute on chronic renal failure Code(s): N17.9 - ACUTE KIDNEY FAILURE, UNSPECIFIED; N18.9 - CHRONIC KIDNEY DISEASE, UNSPECIFIED Qualifiers: Chronic kidney disease stage: stage 3 (moderate) (5) CHF (congestive heart failure) Code(s): I50.9 - HEART FAILURE, UNSPECIFIED Qualifiers: Heart failure type: combined systolic and diastolic Heart failure chronicity: chronic Qualified Code(s): I50.42 - Chronic combined systolic ( congestive) and diastolic (congestive) heart failure (6) COPD (chronic obstructive pulmonary disease) Code(s): J44.9 - CHRONIC OBSTRUCTIVE PULMONARY DISEASE, UNSPECIFIED Qualifiers: (7) Pneumonia Code(s): J18.9 - PNEUMONIA, UNSPECIFIED ORGANISM plan blood cx result noted if blood cx negative will stop vanco continue zosyn await for finalization of the cx report
--- NOTE | 2019-08-05 16:46 | PN ---
Progress Note, Physician History of Present Illness: Pt seen and examined at bedside. No great change in status. - Current Medication List Current Medications: Active Medications Albuterol/Ipratropium (Duoneb -) 1 amp NEB Q6H PRN PRN Reason: SHORT OF BREATH/WHEEZING Aspirin (Ecotrin -) 81 mg PO DAILY [facility] Last Admin: 08/05/19 10:31 Dose: 81 mg Atorvastatin Calcium (Lipitor -) 20 mg PO HS [facility] Last Admin: 08/04/19 21:24 Dose: 20 mg Carvedilol (Coreg -) 12.5 mg PO BID [facility] Last Admin: 08/05/19 10:31 Dose: 12.5 mg Heparin Sodium (Porcine) (Heparin -) 5,000 unit SQ BID [facility] Last Admin: 08/05/19 10:31 Dose: 5,000 unit Piperacillin Sod/Tazobactam (Sod 2.25 gm/ Dextrose) 50 mls @ 100 mls/hr IVPB Q8H-IV [facility]; Protocol Last Admin: 08/05/19 10:30 Dose: 100 mls/hr Vancomycin HCl 1,250 mg/ (Dextrose) 250 mls @ 166.667 mls/hr IVPB Q12H [facility]; Protocol Last Admin: 08/05/19 11:31 Dose: 166.667 mls/hr Latanoprost (Xalatan 0.005% Eye Drops -) 1 drop OU HS [facility] Last Admin: 08/04/19 21:44 Dose: 1 drop Pantoprazole Sodium (Protonix -) 40 mg PO DAILY [facility] Last Admin: 08/05/19 10:32 Dose: 40 mg Risperidone (Risperdal -) 1 mg PO DAILY [facility] Last Admin: 08/05/19 10:31 Dose: 1 mg - Objective Vital Signs: Vital Signs Temperature 100.8 F H 08/05/19 15:03 Pulse Rate 72 08/05/19 15:03 Respiratory Rate 19 08/05/19 15:03 Blood Pressure 121/56 L 08/05/19 15:03 O2 Sat by Pulse Oximetry (%) 100 08/05/19 14:54 Constitutional: Yes: Calm Eyes: Yes: Conjunctiva Clear HENT: Yes: Atraumatic Cardiovascular: Yes: S1, S2 Respiratory: Yes: On Nasal O2 Gastrointestinal: Yes: Soft Genitourinary: Yes: Anthony Present Musculoskeletal: Yes: Muscle Weakness Edema: No Neurological: Yes: Confusion Labs: CBC, BMP 08/05/19 05:14 08/05/19 05:14 INR, PTT INR 1.21 (0.83-1.09) H 08/02/19 21:25 Problem List - Problems (1) CKD (chronic kidney disease) Code(s): N18.9 - CHRONIC KIDNEY DISEASE, UNSPECIFIED Qualifiers: Chronic kidney disease stage: unspecified stage Qualified Code(s): N18.9 - Chronic kidney disease, unspecified (2) Acute kidney injury Code(s): N17.9 - ACUTE KIDNEY FAILURE, UNSPECIFIED Assessment/Plan Current Medications Generic Name Dose Route Start Last Admin Trade Name Freq PRN Reason Stop Dose Admin Albuterol/Ipratropium 1 amp 08/03/19 07:01 Duoneb - NEB Q6H PRN SHORT OF BREATH/WHEEZING Aspirin 81 mg 08/03/19 10:00 08/05/19 10:31 Ecotrin - PO 81 mg DAILY [facility] Administration Atorvastatin Calcium 20 mg 08/03/19 22:00 08/04/19 21:24 Lipitor - PO 20 mg HS [facility] Administration Carvedilol 12.5 mg 08/03/19 10:00 08/05/19 10:31 Coreg - PO 12.5 mg BID [facility] Administration Heparin Sodium (Porcine) 5,000 unit 08/04/19 22:00 08/05/19 10:31 Heparin - SQ 5,000 unit BID [facility] Administration Piperacillin Sod/Tazobactam 50 mls @ 100 mls/hr 08/03/19 18:00 08/05/19 10:30 Sod 2.25 gm/ Dextrose IVPB 100 mls/hr Q8H-IV [facility] Administration Protocol Vancomycin HCl 1,250 mg/ 250 mls @ 166.667 mls/hr 08/04/19 11:45 08/05/19 11: 31 Dextrose IVPB 166.667 mls/hr Q12H [facility] Administration Protocol Latanoprost 1 drop 08/03/19 22:00 08/04/19 21:44 Xalatan 0.005% Eye Drops - OU 1 drop HS [facility] Administration Pantoprazole Sodium 40 mg 08/03/19 10:00 08/05/19 10:32 Protonix - PO 40 mg DAILY [facility] Administration Risperidone 1 mg 08/03/19 10:00 08/05/19 10:31 Risperdal - PO 1 mg DAILY [facility] Administration Impression 1. LAURA 2. lethargy 3. recent pna and sepsis 4. ckd 5. copd 6. dm 7. hx htn 8. dementia Plan - repeat labs in am - replace potassium - check mag - encourage PO intake - cxr in am - abx per primary team - monitor bp
[2019-08-05] MEDS ORDERED: ACETAMINOPHEN 650 MG SUPP.RECT PR PRN (17:07)
[2019-08-05] MEDS: LATANOPROST 0.005% OPHTH SOLN 2.5ML BOTTLE OU SCH (21:59)
[2019-08-05] MEDS: ATORVASTATIN CA 20 MG TABLET (FP) PO SCH (21:59)
[2019-08-06] MEDS ORDERED: PIPERACILLIN/TAZOBACTAM 2.25 GM VIAL IVPB ONE ×3 (01:02→16:54)
[2019-08-06] MEDS ORDERED: DEXTROSE 5%-WATER - 50 ML IVPB ONE ×3 (01:02→16:54)
[2019-08-06] MEDS: PIPERACILLIN/TAZOB 2.25 GM 2.25 GM in DEXTROSE 5%-WATER - 50 ML IVPB SCH ×3 (01:05→17:12)
[2019-08-06 07:58] LABS: ALBUMIN 1.9 g/dl (3.4-5.0); BILIRUBIN,TOTAL 0.7 mg/dL (0.2-1); BLOOD UREA NITROGEN 59.2 mg/dL (7-18); CALCIUM 7.8 mg/dL (8.5-10.1); CREATININE 3.7 mg/dL (0.55-1.3); MAGNESIUM 1.9 mg/dL (1.8-2.4); POTASSIUM 3.3 mmol/L (3.5-5.1); TOT PROT 5.4 g/dl (6.4-8.2)
[2019-08-06] MEDS: risperiDONE 1 MG TABLET (FP) PO SCH (10:01)
[2019-08-06] MEDS: CARVEDILOL 12.5 MG TABLET (FP) PO SCH ×2 (10:02→22:58)
[2019-08-06] MEDS: ASPIRIN COATED 81 MG TABLET.EC PO SCH (10:02)
[2019-08-06] MEDS: HEPARIN NA (PORCINE) 5,000 UNITS/ML 1ML VIAL SQ SCH ×2 (10:02→22:58)
[2019-08-06] MEDS: PANTOPRAZOLE 40 MG TABLET (FP) PO SCH (10:02)
--- NOTE | 2019-08-06 12:03 | PN ---
Progress Note, Physician Chief Complaint: Pt opens eyes; does not reply to questions; does not follow requuests to move his limbs. History of Present Illness: The patient is an 84 year old male with a past medical history of COPD, severe systolic CHF, CAD, diabetes, HLD, HTN, s/p PPM, and dementia here today from [facility] for evaluation of lethargy. As per the [facility] staff, the patient seemed less alert and more lethargic today. They also note that the patient had some infiltrate on his chest x-ray today. The patient was discharged on 07/29/19 after being admitted for sepsis. Patient unable to contribute to history, Allergies: iodinated contrast media, levofloxacin Surgical history: pacemaker PCP: Teo Herring Cardiology: Dr. Mat Thomas - Current Medication List Current Medications: Active Medications Acetaminophen (Tylenol Suppository -) 650 mg [place] Q6H PRN PRN Reason: FEVER Albuterol/Ipratropium (Duoneb -) 1 amp NEB Q6H PRN PRN Reason: SHORT OF BREATH/WHEEZING Aspirin (Ecotrin -) 81 mg PO DAILY [facility] Last Admin: 08/06/19 10:02 Dose: 81 mg Atorvastatin Calcium (Lipitor -) 20 mg PO HS [facility] Last Admin: 08/05/19 21:59 Dose: 20 mg Carvedilol (Coreg -) 12.5 mg PO BID [facility] Last Admin: 08/06/19 10:02 Dose: 12.5 mg Heparin Sodium (Porcine) (Heparin -) 5,000 unit SQ BID [facility] Last Admin: 08/06/19 10:02 Dose: 5,000 unit Piperacillin Sod/Tazobactam (Sod 2.25 gm/ Dextrose) 50 mls @ 100 mls/hr IVPB Q8H-IV [facility]; Protocol Last Admin: 08/06/19 10:01 Dose: 100 mls/hr Vancomycin HCl 1,250 mg/ (Dextrose) 250 mls @ 166.667 mls/hr IVPB Q12H [facility]; Protocol Last Admin: 08/05/19 23:39 Dose: 166.667 mls/hr Latanoprost (Xalatan 0.005% Eye Drops -) 1 drop OU HS [facility] Last Admin: 08/05/19 21:59 Dose: 1 drop Pantoprazole Sodium (Protonix -) 40 mg PO DAILY [facility] Last Admin: 08/06/19 10:02 Dose: 40 mg Risperidone (Risperdal -) 1 mg PO DAILY [facility] Last Admin: 08/06/19 10:01 Dose: 1 mg - Objective Vital Signs: Vital Signs Temperature 98.5 F 08/06/19 09:53 Pulse Rate 87 08/06/19 09:53 Respiratory Rate 20 08/06/19 09:53 Blood Pressure 139/67 08/06/19 09:53 O2 Sat by Pulse Oximetry (%) 98 08/06/19 09:53 Constitutional: Yes: Poor Hygeine (long fingernails) Eyes: Yes: WNL Cardiovascular: Yes: S1, S2 (split) Respiratory: Yes: Diminished Gastrointestinal: Yes: Soft Genitourinary: No: Anuria Musculoskeletal: Yes: Muscle Weakness Extremities: Yes: Cool Edema: No Peripheral Pulses WNL: No Peripheral Pulses: Left Doralis Pedis: 1+, Right Dorsalis Pedis: 1+ Neurological: Yes: Weakness Psychiatric: Yes: Other (hx dementia) Labs: CBC, BMP 08/05/19 05:14 08/06/19 05:40 INR, PTT INR 1.21 (0.83-1.09) H 08/02/19 21:25 Abnormal Lab Results 08/06/19 05:40 Potassium 3.3 L BUN 59.2 H Creatinine 3.7 H Calcium 7.8 L AST 14 L Total Protein 5.4 L Albumin 1.9 L - ....Imaging EKG: Image Reviewed Problem List - Problems (1) Sepsis Assessment/Plan: WBC WNL. On antibiotics. "Improving" CXR (though suggest f/u; positioning problematic). Code(s): A41.9 - SEPSIS, UNSPECIFIED ORGANISM (2) Acute on chronic combined systolic and diastolic congestive heart failure Assessment/Plan: Start hydralazine 10 mg bid + Imdur 30 mg daily for systolic CHF (unable to start ACEI or ARB, or spironolactone, with present renal dysfunction). Continue carvedilol. Severe systolic LV dysfunction. F/u BUN/Cr, electrolytes, daily weight, Is and Os. F/u TSH, lipids. Replete K+, and follow all electrolytes. Code(s): I50.43 - ACUTE ON CHRONIC COMBINED SYSTOLIC AND DIASTOLIC HRT FAIL (3) Anemia Code(s): D64.9 - ANEMIA, UNSPECIFIED Qualifiers: Anemia type: unspecified type Qualified Code(s): D64.9 - Anemia, unspecified (4) CKD (chronic kidney disease) Code(s): N18.9 - CHRONIC KIDNEY DISEASE, UNSPECIFIED Qualifiers: Chronic kidney disease stage: unspecified stage Qualified Code(s): N18.9 - Chronic kidney disease, unspecified (5) Decreased hearing Code(s): H91.90 - UNSPECIFIED HEARING LOSS, UNSPECIFIED EAR Qualifiers: Laterality: bilateral Qualified Code(s): H91.93 - Unspecified hearing loss , bilateral (6) Dyspnea Code(s): R06.00 - DYSPNEA, UNSPECIFIED Qualifiers: Dyspnea type: unspecified Qualified Code(s): R06.00 - Dyspnea, unspecified (7) Hypertension Assessment/Plan: on carvedilol Hydralazine + Imdr added for systolic CHF, HTN. Code(s): I10 - ESSENTIAL (PRIMARY) HYPERTENSION Qualifiers: Hypertension type: essential hypertension Qualified Code(s): I10 - Essential (primary) hypertension (8) Cardiac pacemaker in situ Assessment/Plan: atrial sensing, ventricular pacing ?not a candidate for ICD. Code(s): Z95.0 - PRESENCE OF CARDIAC PACEMAKER (9) Dementia Code(s): F03.90 - UNSPECIFIED DEMENTIA WITHOUT BEHAVIORAL DISTURBANCE
[2019-08-06] MEDS: VANCOMYCIN 1,250 MG in DEXTROSE 5%-WATER - 250 ML IVPB SCH (12:08)
[2019-08-06] MEDS: ISOSORBIDE MONONITRATE 30 MG TAB.SR.24H (FP) PO SCH (12:51)
[2019-08-06] MEDS: hydrALAZINE HCL 10 MG TABLET PO SCH ×2 (12:51→22:58)
[2019-08-06] MEDS: POTASSIUM CHLORIDE 10 MEQ PREMIX IVPB (POTASSIUM RIDER) IVPB SCH ×2 (12:52→13:57)
--- NOTE | 2019-08-06 13:49 | PN ---
Progress Note, Physician History of Present Illness: lethargic non verbal - Current Medication List Current Medications: Active Medications Acetaminophen (Tylenol Suppository -) 650 mg [place] Q6H PRN PRN Reason: FEVER Albuterol/Ipratropium (Duoneb -) 1 amp NEB Q6H PRN PRN Reason: SHORT OF BREATH/WHEEZING Aspirin (Ecotrin -) 81 mg PO DAILY [facility] Last Admin: 08/06/19 10:02 Dose: 81 mg Atorvastatin Calcium (Lipitor -) 20 mg PO HS [facility] Last Admin: 08/05/19 21:59 Dose: 20 mg Carvedilol (Coreg -) 12.5 mg PO BID [facility] Last Admin: 08/06/19 10:02 Dose: 12.5 mg Heparin Sodium (Porcine) (Heparin -) 5,000 unit SQ BID [facility] Last Admin: 08/06/19 10:02 Dose: 5,000 unit Hydralazine HCl (Apresoline -) 10 mg PO BID [facility] Last Admin: 08/06/19 12:51 Dose: 10 mg Piperacillin Sod/Tazobactam (Sod 2.25 gm/ Dextrose) 50 mls @ 100 mls/hr IVPB Q8H-IV [facility]; Protocol Last Admin: 08/06/19 10:01 Dose: 100 mls/hr Isosorbide Mononitrate (Imdur -) 30 mg PO DAILY [facility] Last Admin: 08/06/19 12:51 Dose: 30 mg Latanoprost (Xalatan 0.005% Eye Drops -) 1 drop OU HS [facility] Last Admin: 08/05/19 21:59 Dose: 1 drop Pantoprazole Sodium (Protonix -) 40 mg PO DAILY [facility] Last Admin: 08/06/19 10:02 Dose: 40 mg Risperidone (Risperdal -) 1 mg PO DAILY [facility] Last Admin: 08/06/19 10:01 Dose: 1 mg - Objective Vital Signs: Vital Signs Temperature 98.5 F 08/06/19 09:53 Pulse Rate 87 08/06/19 09:53 Respiratory Rate 20 08/06/19 09:53 Blood Pressure 139/67 08/06/19 09:53 O2 Sat by Pulse Oximetry (%) 98 08/06/19 09:53 Constitutional: Yes: No Distress, Calm Cardiovascular: Yes: S1, S2 Gastrointestinal: Yes: Normal Bowel Sounds, Soft Musculoskeletal: Yes: WNL Extremities: Yes: Other Neurological: Yes: Other Labs: CBC, BMP 08/05/19 05:14 08/06/19 05:40 INR, PTT INR 1.21 (0.83-1.09) H 08/02/19 21:25 Assessment/Plan Problem List - Problems (1) Acute on chronic combined systolic and diastolic congestive heart failure Code(s): I50.43 - ACUTE ON CHRONIC COMBINED SYSTOLIC AND DIASTOLIC HRT FAIL (2) Anemia Code(s): D64.9 - ANEMIA, UNSPECIFIED Qualifiers: Anemia type: unspecified type Qualified Code(s): D64.9 - Anemia, unspecified (3) Acute and chronic respiratory failure with hypoxia Code(s): J96.21 - ACUTE AND CHRONIC RESPIRATORY FAILURE WITH HYPOXIA (4) Acute on chronic renal failure Code(s): N17.9 - ACUTE KIDNEY FAILURE, UNSPECIFIED; N18.9 - CHRONIC KIDNEY DISEASE, UNSPECIFIED Qualifiers: Chronic kidney disease stage: stage 3 (moderate) (5) CHF (congestive heart failure) Code(s): I50.9 - HEART FAILURE, UNSPECIFIED Qualifiers: Heart failure type: combined systolic and diastolic Heart failure chronicity: chronic Qualified Code(s): I50.42 - Chronic combined systolic ( congestive) and diastolic (congestive) heart failure (6) COPD (chronic obstructive pulmonary disease) Code(s): J44.9 - CHRONIC OBSTRUCTIVE PULMONARY DISEASE, UNSPECIFIED Qualifiers: (7) Pneumonia Code(s): J18.9 - PNEUMONIA, UNSPECIFIED ORGANISM plan vanco stopped will resend urine vre in the urine low counts will not treat at this moment
--- NOTE | 2019-08-06 14:13 | PN ---
Progress Note (short form) - Note Progress Note: pt seen/ examined. awake. not taking comfortable not eating Vital Signs Temp 98.5 F 08/06/19 09:53 Pulse 87 08/06/19 09:53 Resp 20 08/06/19 09:53 BP 139/67 08/06/19 09:53 Pulse Ox 98 08/06/19 09:53 Intake & Output 08/05/19 08/06/19 08/06/19 23:59 11:59 23:59 Intake Total 390 190 Output Total 400 400 Balance -10 -210 Weight 151 lb 6 oz Intake: IV 20 20 SL 2 10 10 saline lock 10 10 IVPB 250 50 Oral 120 120 Output: Urine 400 400 Anthony 400 400 Other: Voiding Method Indwelling Catheter Indwelling Catheter # Unmeasured Voids Void 2 2 Bowel Movement No Yes # Bowel Movements 0 Weight Measurement Method Patient Lift Scale Active Medications Acetaminophen (Tylenol Suppository -) 650 mg [place] Q6H PRN PRN Reason: FEVER Albuterol/Ipratropium (Duoneb -) 1 amp NEB Q6H PRN PRN Reason: SHORT OF BREATH/WHEEZING Aspirin (Ecotrin -) 81 mg PO DAILY [facility] Last Admin: 08/06/19 10:02 Dose: 81 mg Atorvastatin Calcium (Lipitor -) 20 mg PO HS [facility] Last Admin: 08/05/19 21:59 Dose: 20 mg Carvedilol (Coreg -) 12.5 mg PO BID [facility] Last Admin: 08/06/19 10:02 Dose: 12.5 mg Heparin Sodium (Porcine) (Heparin -) 5,000 unit SQ BID [facility] Last Admin: 08/06/19 10:02 Dose: 5,000 unit Hydralazine HCl (Apresoline -) 10 mg PO BID [facility] Last Admin: 08/06/19 12:51 Dose: 10 mg Piperacillin Sod/Tazobactam (Sod 2.25 gm/ Dextrose) 50 mls @ 100 mls/hr IVPB Q8H-IV [facility]; Protocol Last Admin: 08/06/19 10:01 Dose: 100 mls/hr Isosorbide Mononitrate (Imdur -) 30 mg PO DAILY [facility] Last Admin: 08/06/19 12:51 Dose: 30 mg Latanoprost (Xalatan 0.005% Eye Drops -) 1 drop OU HS [facility] Last Admin: 08/05/19 21:59 Dose: 1 drop Pantoprazole Sodium (Protonix -) 40 mg PO DAILY [facility] Last Admin: 08/06/19 10:02 Dose: 40 mg Risperidone (Risperdal -) 1 mg PO DAILY [facility] Last Admin: 08/06/19 10:01 Dose: 1 mg CBC, BMP 08/05/19 05:14 08/06/19 05:40 Physical Exam Awake S1 S2 RRR Lungs decreased breath sounds Abd- soft, obese, NT No edema Neuro- Non focal ++++Nails PLAN D/W RN Continue present care Iv antibiotics monitor renal function -- Cardiology and renal following psych / Gi consults G tube ? Daughter asking as per Rn will consult podiatry also will follow Problem List - Problems (1) Acute on chronic combined systolic and diastolic congestive heart failure Code(s): I50.43 - ACUTE ON CHRONIC COMBINED SYSTOLIC AND DIASTOLIC HRT FAIL (2) Anemia Code(s): D64.9 - ANEMIA, UNSPECIFIED Qualifiers: Anemia type: unspecified type Qualified Code(s): D64.9 - Anemia, unspecified (3) Acute and chronic respiratory failure with hypoxia Code(s): J96.21 - ACUTE AND CHRONIC RESPIRATORY FAILURE WITH HYPOXIA (4) Acute on chronic renal failure Code(s): N17.9 - ACUTE KIDNEY FAILURE, UNSPECIFIED; N18.9 - CHRONIC KIDNEY DISEASE, UNSPECIFIED Qualifiers: Chronic kidney disease stage: stage 3 (moderate) (5) CHF (congestive heart failure) Code(s): I50.9 - HEART FAILURE, UNSPECIFIED Qualifiers: Heart failure type: combined systolic and diastolic Heart failure chronicity: chronic Qualified Code(s): I50.42 - Chronic combined systolic ( congestive) and diastolic (congestive) heart failure (6) COPD (chronic obstructive pulmonary disease) Code(s): J44.9 - CHRONIC OBSTRUCTIVE PULMONARY DISEASE, UNSPECIFIED Qualifiers: (7) Pneumonia Code(s): J18.9 - PNEUMONIA, UNSPECIFIED ORGANISM
[2019-08-06] MEDS ORDERED: POTASSIUM CHLORIDE ORAL LIQUID 20 MEQ/15 ML PO ONE (16:37)
--- NOTE | 2019-08-06 16:40 | PN ---
Progress Note, Physician History of Present Illness: Pt seen and examined at bedside. He appears comfortable. - Current Medication List Current Medications: Active Medications Acetaminophen (Tylenol Suppository -) 650 mg [place] Q6H PRN PRN Reason: FEVER Albuterol/Ipratropium (Duoneb -) 1 amp NEB Q6H PRN PRN Reason: SHORT OF BREATH/WHEEZING Aspirin (Ecotrin -) 81 mg PO DAILY [facility] Last Admin: 08/06/19 10:02 Dose: 81 mg Atorvastatin Calcium (Lipitor -) 20 mg PO HS [facility] Last Admin: 08/05/19 21:59 Dose: 20 mg Carvedilol (Coreg -) 12.5 mg PO BID [facility] Last Admin: 08/06/19 10:02 Dose: 12.5 mg Heparin Sodium (Porcine) (Heparin -) 5,000 unit SQ BID [facility] Last Admin: 08/06/19 10:02 Dose: 5,000 unit Hydralazine HCl (Apresoline -) 10 mg PO BID [facility] Last Admin: 08/06/19 12:51 Dose: 10 mg Piperacillin Sod/Tazobactam (Sod 2.25 gm/ Dextrose) 50 mls @ 100 mls/hr IVPB Q8H-IV [facility]; Protocol Last Admin: 08/06/19 10:01 Dose: 100 mls/hr Isosorbide Mononitrate (Imdur -) 30 mg PO DAILY [facility] Last Admin: 08/06/19 12:51 Dose: 30 mg Latanoprost (Xalatan 0.005% Eye Drops -) 1 drop OU HS [facility] Last Admin: 08/05/19 21:59 Dose: 1 drop Pantoprazole Sodium (Protonix -) 40 mg PO DAILY [facility] Last Admin: 08/06/19 10:02 Dose: 40 mg Risperidone (Risperdal -) 1 mg PO DAILY [facility] Last Admin: 08/06/19 10:01 Dose: 1 mg - Objective Vital Signs: Vital Signs Temperature 98.6 F 08/06/19 14:00 Pulse Rate 82 08/06/19 14:00 Respiratory Rate 20 08/06/19 14:00 Blood Pressure 142/65 08/06/19 14:00 O2 Sat by Pulse Oximetry (%) 98 08/06/19 09:53 Constitutional: Yes: Calm Eyes: Yes: Conjunctiva Clear HENT: Yes: Atraumatic Neck: Yes: Supple Cardiovascular: Yes: S1, S2 Respiratory: Yes: CTA Bilaterally Gastrointestinal: Yes: Soft Genitourinary: Yes: Incontinence Musculoskeletal: Yes: Muscle Weakness Edema: No Integumentary: Yes: WNL Neurological: Yes: Confusion Labs: CBC, BMP 08/05/19 05:14 08/06/19 05:40 INR, PTT INR 1.21 (0.83-1.09) H 08/02/19 21:25 Problem List - Problems (1) CKD (chronic kidney disease) Code(s): N18.9 - CHRONIC KIDNEY DISEASE, UNSPECIFIED Qualifiers: Chronic kidney disease stage: unspecified stage Qualified Code(s): N18.9 - Chronic kidney disease, unspecified (2) Acute kidney injury Code(s): N17.9 - ACUTE KIDNEY FAILURE, UNSPECIFIED Assessment/Plan Current Medications Generic Name Dose Route Start Last Admin Trade Name Freq PRN Reason Stop Dose Admin Acetaminophen 650 mg 08/05/19 17:07 Tylenol Suppository - [place] Q6H PRN FEVER Albuterol/Ipratropium 1 amp 08/03/19 07:01 Duoneb - NEB Q6H PRN SHORT OF BREATH/WHEEZING Aspirin 81 mg 08/03/19 10:00 08/06/19 10:02 Ecotrin - PO 81 mg DAILY [facility] Administration Atorvastatin Calcium 20 mg 08/03/19 22:00 08/05/19 21:59 Lipitor - PO 20 mg HS [facility] Administration Carvedilol 12.5 mg 08/03/19 10:00 08/06/19 10:02 Coreg - PO 12.5 mg BID [facility] Administration Heparin Sodium (Porcine) 5,000 unit 08/04/19 22:00 08/06/19 10:02 Heparin - SQ 5,000 unit BID [facility] Administration Hydralazine HCl 10 mg 08/06/19 12:15 08/06/19 12:51 Apresoline - PO 10 mg BID [facility] Administration Piperacillin Sod/Tazobactam 50 mls @ 100 mls/hr 08/03/19 18:00 08/06/19 10:01 Sod 2.25 gm/ Dextrose IVPB 100 mls/hr Q8H-IV [facility] Administration Protocol Isosorbide Mononitrate 30 mg 08/06/19 12:15 08/06/19 12:51 Imdur - PO 30 mg DAILY [facility] Administration Latanoprost 1 drop 08/03/19 22:00 08/05/19 21:59 Xalatan 0.005% Eye Drops - OU 1 drop HS [facility] Administration Pantoprazole Sodium 40 mg 08/03/19 10:00 08/06/19 10:02 Protonix - PO 40 mg DAILY [facility] Administration Potassium Chloride 40 meq 08/06/19 16:37 Potassium Chloride Oral Liquid PO 08/06/19 16:38 ONCE ONE Risperidone 1 mg 08/03/19 10:00 08/06/19 10:01 Risperdal - PO 1 mg DAILY [facility] Administration Laboratory Tests 07/28/19 07/29/19 08/02/19 06:25 05:55 21:25 Creatinine 4.1 H 3.8 H 3.5 H Magnesium 08/03/19 08/06/19 08:00 05:40 Creatinine 3.4 H Magnesium 1.9 Impression 1. LAURA 2. lethargy 3. recent pna and sepsis 4. ckd 5. copd 6. dm 7. hx htn 8. dementia Plan - monitor renal function - encourage po intake - repeat cxr in am - abx per primary team - monitor bp
[2019-08-06 17:13] LABS: CHOLESTEROL 90 mg/dL (50-200)
[2019-08-06 17:14] LABS: HDL CHOLESTEROL 24 mg/dL (40-60); LDL CHOLESTEROL (ONLY SJRH) 55 mg/dL (5-100); TRIGLYCERIDES 92 mg/dL (0-150)
[2019-08-06] MEDS: ATORVASTATIN CA 20 MG TABLET (FP) PO SCH (22:58)
[2019-08-06] MEDS: LATANOPROST 0.005% OPHTH SOLN 2.5ML BOTTLE OU SCH (22:58)
[2019-08-07] MEDS: PIPERACILLIN/TAZOB 2.25 GM 2.25 GM in DEXTROSE 5%-WATER - 50 ML IVPB SCH ×3 (01:45→17:17)
[2019-08-07] MEDS ORDERED: PIPERACILLIN/TAZOBACTAM 2.25 GM VIAL IVPB ONE ×3 (01:59→17:15)
[2019-08-07] MEDS ORDERED: DEXTROSE 5%-WATER - 50 ML IVPB ONE ×3 (02:00→17:15)
[2019-08-07 07:40] LABS: ALBUMIN 1.9 g/dl (3.4-5.0); BILIRUBIN,TOTAL 0.8 mg/dL (0.2-1); BLOOD UREA NITROGEN 59.3 mg/dL (7-18); CREATININE 4.6 mg/dL (0.55-1.3); POTASSIUM 3.6 mmol/L (3.5-5.1); TOT PROT 5.6 g/dl (6.4-8.2)
[2019-08-07] MEDS: risperiDONE 1 MG TABLET (FP) PO SCH (10:38)
[2019-08-07] MEDS: PANTOPRAZOLE 40 MG TABLET (FP) PO SCH (10:38)
[2019-08-07] MEDS: hydrALAZINE HCL 10 MG TABLET PO SCH ×2 (10:38→22:20)
[2019-08-07] MEDS: ASPIRIN COATED 81 MG TABLET.EC PO SCH (10:38)
[2019-08-07] MEDS: ISOSORBIDE MONONITRATE 30 MG TAB.SR.24H (FP) PO SCH (10:39)
[2019-08-07] MEDS: CARVEDILOL 12.5 MG TABLET (FP) PO SCH ×2 (10:39→22:20)
[2019-08-07] MEDS: HEPARIN NA (PORCINE) 5,000 UNITS/ML 1ML VIAL SQ SCH ×2 (10:39→22:20)
[2019-08-07] MEDS: POTASSIUM CHLORIDE 10 MEQ in SODIUM CHLORIDE 0.45% 1,000 ML IVPB SCH (11:21)
--- NOTE | 2019-08-07 12:00 | CON.GI ---
Consult Consult Specialty:: GI Referred by:: Dr Reji Charles Reason for Consultation:: consideration of G tube - History of Present Illness Chief Complaint: lethargy, poor oral intake History of Present Illness: 84 y.o. M sent from [place] for lethargy. Found to have severe systolic dysfunction. Pt has been somnolent, not taking nutrition p.o. - History Source History Provided By: Medical Record Limitations to Obtaining History: Dementia - Past Medical History TRIAL EXAMINER: Yes: Dementia, Other (decreased hearing) Cardio/Vascular: Yes: CAD, CHF, HTN, Hyperlipdemia, Other (Right external carotid artery stenosis, tachycardia PPM) Pulmonary: Yes: COPD, O2 Dependent, Other (pulmonary nodules h/o invasive Aspergillosis) Gastrointestinal: Yes: Diverticulitis (as per today's CT), Diverticulosis, GERD , Other (left inguinal hernia, duodinitis, colon polyps) Renal/: Yes: Renal Inusuff, BPH, Hematuria, Other (bladder dysfunction) Infectious Disease: Yes: Other (h/o invasive pulmonary aspergillosis) Musculoskeletal: Yes: Chronic low back pain, Osteoarthritis, Other (dupuytren contracture) ENT: Yes: Other ([place]) Endocrine: Yes: Diabetes Mellitus - Past Surgical History Past Surgical History: Yes: Cholecystectomy (open), Permanent Pacemaker - Alcohol/Substance Use Hx Alcohol Use: No History of Substance Use: reports: None - Smoking History Smoking history: Unknown if ever smoked Have you smoked in the past 12 months: No If you are a former smoker, when did you quit?: 20 YRS AGO - Social History Usual Living Arrangement: Custodial ADL: Family Assistance Occupation: , 4 children History of Recent Travel: No Home Medications - Allergies Allergies/Adverse Reactions: Allergies Allergy/AdvReac Type Severity Reaction Status Date / Time Iodinated Contrast Media Allergy Rash Verified 07/20/19 14:41 [Iodinated Contrast Media - IV Dye] levofloxacin [From Levaquin] Allergy "RASH" Verified 07/20/19 14:41 - Home Medications Home Medications: Ambulatory Orders Aspirin Coated [Ecotrin -] 81 mg PO DAILY 12/19/18 Atorvastatin Ca [Lipitor] 20 mg PO HS 12/19/18 Carvedilol [Coreg -] 12.5 mg PO BID 12/19/18 Latanoprost/Pf [Latanoprost 0.005% Eye Drop] 7.5 ml OP DAILY 12/19/18 Pantoprazole Sodium 40 mg PO DAILY 12/19/18 Risperidone [Risperdal] 1 mg PO DAILY 12/19/18 Cholecalciferol (Vitamin D3) [Vitamin D3] 2,000 unit PO DAILY 07/21/19 Cyanocobalamin [Vitamin B12 -] 1,000 mcg PO DAILY 07/21/19 Albuterol 2.5/Ipratropium 0.5 [Duoneb -] 1 amp NEB Q6H PRN amp 07/29/19 Diphenhydramine HCl [Benadryl Capsule -] 25 mg PO Q6H PRN #0 capsule 07/29/19 Prednisone 10 mg PO DAILY 07/29/19 Torsemide [Demadex -] 20 mg PO ASDIR #0 tab 07/29/19 Physical Exam-GI Vital Signs: Vital Signs Temperature 98.5 F 08/07/19 05:44 Pulse Rate 86 08/07/19 05:44 Respiratory Rate 20 08/07/19 05:44 Blood Pressure 114/70 08/07/19 05:44 O2 Sat by Pulse Oximetry (%) 99 08/06/19 21:19 Constitutional: Yes: Poor Hygeine Labs: CBC, BMP 08/05/19 05:14 08/07/19 05:18 INR, PTT INR 1.21 (0.83-1.09) H 08/02/19 21:25 Problem List - Problems (1) Generalized weakness Assessment/Plan: Pt is somnolent with generalized weakness. I have taken the liberty of discontinuing risperidone, which is likely contributing to his lethargy. There is, indeed, a black-box warning from the FDA regarding risperidal in elderly patients: "Elderly patients with dementia-related psychosis treated with antipsychotic drugs are at an increased risk of . RISPERDAL is not approved for use in patients with dementia-related psychosis. (5.1) " In addition, from the FDA-approved labeling: "Esophageal dysmotility and aspiration have been associated with antipsychotic drug use. Aspiration pneumonia is a common cause of morbidity and mortality in patients with advanced Alzheimers dementia. RISPERDAL and other antipsychotic drugs should be used cautiously in patients at risk for aspiration pneumonia." "In patients with moderate to severe renal disease, clearance of the sum of risperidone and its active metabolite decreased by 60% compared to young healthy subjects.' For all these reasons I have stopped his risperidone. I would give him a couple of days to see if he becomes more alert and is able to maintain himself orally before committing to an alternative nutrition strategy. Code(s): R53.1 - WEAKNESS
--- NOTE | 2019-08-07 13:40 | PN ---
Progress Note (short form) - Note Progress Note: Pt seen/ examined GI consult noted/ appreciated I also discussed with Dr. Leon today and agree with holding Risperdone. Pt more awake On mild hydration Ate little today worsening renal function Vital Signs Temp 98.2 F 08/07/19 10:00 Pulse 69 08/07/19 10:00 Resp 21 H 08/07/19 10:00 BP 99/50 L 08/07/19 10:00 Pulse Ox 100 08/07/19 10:00 Intake & Output 08/06/19 08/07/19 08/07/19 23:59 11:59 23:59 Intake Total 390 50 Output Total 0 Balance 390 50 Weight 151 lb 3.2 oz Intake: IV 40 SL 2 20 saline lock 20 IVPB 100 50 Oral 250 Output: Urine 0 Anthony 0 Other: Voiding Method Indwelling Catheter Indwelling Catheter Bowel Movement No Weight Measurement Method Patient Lift Scale Active Medications Acetaminophen (Tylenol Suppository -) 650 mg [place] Q6H PRN PRN Reason: FEVER Albuterol/Ipratropium (Duoneb -) 1 amp NEB Q6H PRN PRN Reason: SHORT OF BREATH/WHEEZING Aspirin (Ecotrin -) 81 mg PO DAILY [facility] Last Admin: 08/07/19 10:38 Dose: 81 mg Atorvastatin Calcium (Lipitor -) 20 mg PO HS [facility] Last Admin: 08/06/19 22:58 Dose: 20 mg Carvedilol (Coreg -) 12.5 mg PO BID [facility] Last Admin: 08/07/19 10:39 Dose: Not Given Heparin Sodium (Porcine) (Heparin -) 5,000 unit SQ BID [facility] Last Admin: 08/07/19 10:39 Dose: 5,000 unit Hydralazine HCl (Apresoline -) 10 mg PO BID [facility] Last Admin: 08/07/19 10:38 Dose: 10 mg Piperacillin Sod/Tazobactam (Sod 2.25 gm/ Dextrose) 50 mls @ 100 mls/hr IVPB Q8H-IV [facility]; Protocol Last Admin: 08/07/19 10:35 Dose: 100 mls/hr Potassium Chloride 10 meq/ (Sodium Chloride) 1,005 mls @ 42 mls/hr IVPB Q24H [facility] Last Admin: 08/07/19 11:21 Dose: 42 mls/hr Isosorbide Mononitrate (Imdur -) 30 mg PO DAILY [facility] Last Admin: 08/07/19 10:39 Dose: Not Given Latanoprost (Xalatan 0.005% Eye Drops -) 1 drop OU HS [facility] Last Admin: 08/06/19 22:58 Dose: 1 drop Pantoprazole Sodium (Protonix -) 40 mg PO DAILY [facility] Last Admin: 08/07/19 10:38 Dose: 40 mg CBC, BMP 08/05/19 05:14 08/07/19 05:18 cxr- No infiltrate/ failure Physical Exam Awake S1 S2 RRR Lungs decreased breath sounds Abd- soft, obese, NT No edema Neuro- Non focal ++++Nails PLAN D/W RN Continue present care Iv antibiotics monitor renal function --worsening Cardiology and renal following mild hydration off risperdone will follow avoid nephrotoxins monitor lytes overall condition gaurded will follow.
--- NOTE | 2019-08-07 13:49 | PN ---
Progress Note, Physician History of Present Illness: mental status slightly better looks comfortable - Current Medication List Current Medications: Active Medications Acetaminophen (Tylenol Suppository -) 650 mg [place] Q6H PRN PRN Reason: FEVER Albuterol/Ipratropium (Duoneb -) 1 amp NEB Q6H PRN PRN Reason: SHORT OF BREATH/WHEEZING Aspirin (Ecotrin -) 81 mg PO DAILY [facility] Last Admin: 08/07/19 10:38 Dose: 81 mg Atorvastatin Calcium (Lipitor -) 20 mg PO HS [facility] Last Admin: 08/06/19 22:58 Dose: 20 mg Carvedilol (Coreg -) 12.5 mg PO BID [facility] Last Admin: 08/07/19 10:39 Dose: Not Given Heparin Sodium (Porcine) (Heparin -) 5,000 unit SQ BID [facility] Last Admin: 08/07/19 10:39 Dose: 5,000 unit Hydralazine HCl (Apresoline -) 10 mg PO BID [facility] Last Admin: 08/07/19 10:38 Dose: 10 mg Piperacillin Sod/Tazobactam (Sod 2.25 gm/ Dextrose) 50 mls @ 100 mls/hr IVPB Q8H-IV [facility]; Protocol Last Admin: 08/07/19 10:35 Dose: 100 mls/hr Potassium Chloride 10 meq/ (Sodium Chloride) 1,005 mls @ 42 mls/hr IVPB Q24H [facility] Last Admin: 08/07/19 11:21 Dose: 42 mls/hr Isosorbide Mononitrate (Imdur -) 30 mg PO DAILY [facility] Last Admin: 08/07/19 10:39 Dose: Not Given Latanoprost (Xalatan 0.005% Eye Drops -) 1 drop OU HS [facility] Last Admin: 08/06/19 22:58 Dose: 1 drop Pantoprazole Sodium (Protonix -) 40 mg PO DAILY [facility] Last Admin: 08/07/19 10:38 Dose: 40 mg - Objective Vital Signs: Vital Signs Temperature 98.2 F 08/07/19 10:00 Pulse Rate 69 08/07/19 10:00 Respiratory Rate 21 H 08/07/19 10:00 Blood Pressure 99/50 L 08/07/19 10:00 O2 Sat by Pulse Oximetry (%) 100 08/07/19 10:00 Constitutional: Yes: No Distress, Other (disshevelled) Cardiovascular: Yes: S1, S2 Respiratory: Yes: Regular, CTA Bilaterally Gastrointestinal: Yes: Normal Bowel Sounds, Soft Musculoskeletal: Yes: WNL Extremities: Yes: Other Neurological: Yes: Alert, Other Psychiatric: Yes: Other Labs: CBC, BMP 08/05/19 05:14 08/07/19 05:18 INR, PTT INR 1.21 (0.83-1.09) H 08/02/19 21:25 Assessment/Plan Problem List - Problems (1) Acute on chronic combined systolic and diastolic congestive heart failure Code(s): I50.43 - ACUTE ON CHRONIC COMBINED SYSTOLIC AND DIASTOLIC HRT FAIL (2) Anemia Code(s): D64.9 - ANEMIA, UNSPECIFIED Qualifiers: Anemia type: unspecified type Qualified Code(s): D64.9 - Anemia, unspecified (3) Acute and chronic respiratory failure with hypoxia Code(s): J96.21 - ACUTE AND CHRONIC RESPIRATORY FAILURE WITH HYPOXIA (4) Acute on chronic renal failure Code(s): N17.9 - ACUTE KIDNEY FAILURE, UNSPECIFIED; N18.9 - CHRONIC KIDNEY DISEASE, UNSPECIFIED Qualifiers: Chronic kidney disease stage: stage 3 (moderate) (5) CHF (congestive heart failure) Code(s): I50.9 - HEART FAILURE, UNSPECIFIED Qualifiers: Heart failure type: combined systolic and diastolic Heart failure chronicity: chronic Qualified Code(s): I50.42 - Chronic combined systolic ( congestive) and diastolic (congestive) heart failure (6) COPD (chronic obstructive pulmonary disease) Code(s): J44.9 - CHRONIC OBSTRUCTIVE PULMONARY DISEASE, UNSPECIFIED Qualifiers: (7) Pneumonia Code(s): J18.9 - PNEUMONIA, UNSPECIFIED ORGANISM plan await for repeat cx report rest as per the team abx final plan
--- NOTE | 2019-08-07 17:31 | PN ---
Progress Note, Physician History of Present Illness: Pt seen and examined at bedside. he denies shortness of breath. - Current Medication List Current Medications: Active Medications Acetaminophen (Tylenol Suppository -) 650 mg [place] Q6H PRN PRN Reason: FEVER Albuterol/Ipratropium (Duoneb -) 1 amp NEB Q6H PRN PRN Reason: SHORT OF BREATH/WHEEZING Aspirin (Ecotrin -) 81 mg PO DAILY [facility] Last Admin: 08/07/19 10:38 Dose: 81 mg Atorvastatin Calcium (Lipitor -) 20 mg PO HS [facility] Last Admin: 08/06/19 22:58 Dose: 20 mg Carvedilol (Coreg -) 12.5 mg PO BID [facility] Last Admin: 08/07/19 10:39 Dose: Not Given Heparin Sodium (Porcine) (Heparin -) 5,000 unit SQ BID [facility] Last Admin: 08/07/19 10:39 Dose: 5,000 unit Hydralazine HCl (Apresoline -) 10 mg PO BID [facility] Last Admin: 08/07/19 10:38 Dose: 10 mg Piperacillin Sod/Tazobactam (Sod 2.25 gm/ Dextrose) 50 mls @ 100 mls/hr IVPB Q8H-IV [facility]; Protocol Last Admin: 08/07/19 17:17 Dose: 100 mls/hr Potassium Chloride 10 meq/ (Sodium Chloride) 1,005 mls @ 42 mls/hr IVPB Q24H [facility] Last Admin: 08/07/19 11:21 Dose: 42 mls/hr Isosorbide Mononitrate (Imdur -) 30 mg PO DAILY [facility] Last Admin: 08/07/19 10:39 Dose: Not Given Latanoprost (Xalatan 0.005% Eye Drops -) 1 drop OU HS [facility] Last Admin: 08/06/19 22:58 Dose: 1 drop Pantoprazole Sodium (Protonix -) 40 mg PO DAILY [facility] Last Admin: 08/07/19 10:38 Dose: 40 mg - Objective Vital Signs: Vital Signs Temperature 98.2 F 08/07/19 14:00 Pulse Rate 65 08/07/19 14:00 Respiratory Rate 20 08/07/19 14:00 Blood Pressure 151/60 08/07/19 14:00 O2 Sat by Pulse Oximetry (%) 100 08/07/19 10:00 Constitutional: Yes: Calm Eyes: Yes: Conjunctiva Clear HENT: Yes: Atraumatic Neck: Yes: Supple Cardiovascular: Yes: S1, S2 Respiratory: Yes: CTA Bilaterally Gastrointestinal: Yes: Normal Bowel Sounds, Soft Genitourinary: Yes: Incontinence Musculoskeletal: Yes: Muscle Weakness Edema: No Integumentary: Yes: WNL Neurological: Yes: Confusion Labs: CBC, BMP 08/05/19 05:14 08/07/19 05:18 INR, PTT INR 1.21 (0.83-1.09) H 08/02/19 21:25 Problem List - Problems (1) CKD (chronic kidney disease) Code(s): N18.9 - CHRONIC KIDNEY DISEASE, UNSPECIFIED Qualifiers: Chronic kidney disease stage: unspecified stage Qualified Code(s): N18.9 - Chronic kidney disease, unspecified (2) Acute kidney injury Code(s): N17.9 - ACUTE KIDNEY FAILURE, UNSPECIFIED Assessment/Plan Current Medications Generic Name Dose Route Start Last Admin Trade Name Freq PRN Reason Stop Dose Admin Acetaminophen 650 mg 08/05/19 17:07 Tylenol Suppository - [place] Q6H PRN FEVER Albuterol/Ipratropium 1 amp 08/03/19 07:01 Duoneb - NEB Q6H PRN SHORT OF BREATH/WHEEZING Aspirin 81 mg 08/03/19 10:00 08/07/19 10:38 Ecotrin - PO 81 mg DAILY [facility] Administration Atorvastatin Calcium 20 mg 08/03/19 22:00 08/06/19 22:58 Lipitor - PO 20 mg HS [facility] Administration Carvedilol 12.5 mg 08/03/19 10:00 08/07/19 10:39 Coreg - PO Not Given BID [facility] Heparin Sodium (Porcine) 5,000 unit 08/04/19 22:00 08/07/19 10:39 Heparin - SQ 5,000 unit BID [facility] Administration Hydralazine HCl 10 mg 08/06/19 12:15 08/07/19 10:38 Apresoline - PO 10 mg BID [facility] Administration Piperacillin Sod/Tazobactam 50 mls @ 100 mls/hr 08/03/19 18:00 08/07/19 17:17 Sod 2.25 gm/ Dextrose IVPB 100 mls/hr Q8H-IV [facility] Administration Protocol Potassium Chloride 10 meq/ 1,005 mls @ 42 mls/hr 08/07/19 10:30 08/07/19 11: 21 Sodium Chloride IVPB 42 mls/hr Q24H [facility] Administration Isosorbide Mononitrate 30 mg 08/06/19 12:15 08/07/19 10:39 Imdur - PO Not Given DAILY [facility] Latanoprost 1 drop 08/03/19 22:00 08/06/19 22:58 Xalatan 0.005% Eye Drops - OU 1 drop HS [facility] Administration Pantoprazole Sodium 40 mg 08/03/19 10:00 08/07/19 10:38 Protonix - PO 40 mg DAILY [facility] Administration Impression 1. LAURA 2. lethargy 3. recent pna and sepsis 4. ckd 5. copd 6. dm 7. hx htn 8. dementia Plan - started fluids this morning - repeat labs in am - monitor renal function - cxr reviewed - discussed with medical team - monitor bp
[2019-08-07] MEDS: ATORVASTATIN CA 20 MG TABLET (FP) PO SCH (22:20)
[2019-08-07] MEDS: LATANOPROST 0.005% OPHTH SOLN 2.5ML BOTTLE OU SCH (22:21)
[2019-08-08] MEDS: PIPERACILLIN/TAZOB 2.25 GM 2.25 GM in DEXTROSE 5%-WATER - 50 ML IVPB SCH ×3 (03:15→17:30)
[2019-08-08] MEDS ORDERED: PIPERACILLIN/TAZOBACTAM 2.25 GM VIAL IVPB ONE ×3 (03:22→17:25)
[2019-08-08] MEDS ORDERED: DEXTROSE 5%-WATER - 50 ML IVPB ONE ×3 (03:22→17:25)
--- NOTE | 2019-08-08 06:32 | PN ---
Progress Note, Physician Chief Complaint: Pt opens eyes; remains lethargic;does not reply to questions; does not follow requests to move his limbs. History of Present Illness: The patient is an 84 year old white male with a past medical history of COPD, severe systolic CHF, CAD, diabetes, HLD, HTN, s/p PPM, and dementia here today from [facility] for evaluation of lethargy. As per the halfway staff, the patient seemed less alert and more lethargic today. They also note that the patient had some infiltrate on his chest x-ray today. The patient was discharged on 07/29/19 after being admitted for sepsis. Patient unable to contribute to history, Allergies: iodinated contrast media, levofloxacin Surgical history: pacemaker PCP: Teo Herring Cardiology: Dr. Mat Thomas - Current Medication List Current Medications: Active Medications Acetaminophen (Tylenol Suppository -) 650 mg [place] Q6H PRN PRN Reason: FEVER Albuterol/Ipratropium (Duoneb -) 1 amp NEB Q6H PRN PRN Reason: SHORT OF BREATH/WHEEZING Aspirin (Ecotrin -) 81 mg PO DAILY [facility] Last Admin: 08/07/19 10:38 Dose: 81 mg Atorvastatin Calcium (Lipitor -) 20 mg PO HS [facility] Last Admin: 08/07/19 22:20 Dose: 20 mg Carvedilol (Coreg -) 12.5 mg PO BID [facility] Last Admin: 08/07/19 22:20 Dose: 12.5 mg Heparin Sodium (Porcine) (Heparin -) 5,000 unit SQ BID [facility] Last Admin: 08/07/19 22:20 Dose: 5,000 unit Hydralazine HCl (Apresoline -) 10 mg PO BID [facility] Last Admin: 08/07/19 22:20 Dose: 10 mg Piperacillin Sod/Tazobactam (Sod 2.25 gm/ Dextrose) 50 mls @ 100 mls/hr IVPB Q8H-IV [facility]; Protocol Last Admin: 08/08/19 03:15 Dose: 100 mls/hr Potassium Chloride 10 meq/ (Sodium Chloride) 1,005 mls @ 42 mls/hr IVPB Q24H [facility] Last Admin: 08/07/19 11:21 Dose: 42 mls/hr Isosorbide Mononitrate (Imdur -) 30 mg PO DAILY [facility] Last Admin: 08/07/19 10:39 Dose: Not Given Latanoprost (Xalatan 0.005% Eye Drops -) 1 drop OU HS [facility] Last Admin: 08/07/19 22:21 Dose: 1 drop Pantoprazole Sodium (Protonix -) 40 mg PO DAILY [facility] Last Admin: 08/07/19 10:38 Dose: 40 mg - Objective Vital Signs: Vital Signs Temperature 99.1 F 08/08/19 06:00 Pulse Rate 69 08/08/19 06:00 Respiratory Rate 20 08/08/19 06:00 Blood Pressure 114/58 L 08/08/19 06:00 O2 Sat by Pulse Oximetry (%) 100 08/07/19 20:07 Constitutional: Yes: Other Eyes: Yes: WNL Neck: Yes: Decreased ROM Cardiovascular: Yes: S1, S2 Labs: CBC, BMP 08/05/19 05:14 08/07/19 05:18 INR, PTT INR 1.21 (0.83-1.09) H 08/02/19 21:25 Problem List - Problems (1) Sepsis Assessment/Plan: WBC WNL. On antibiotics. Code(s): A41.9 - SEPSIS, UNSPECIFIED ORGANISM (2) Acute on chronic combined systolic and diastolic congestive heart failure Assessment/Plan: Start hydralazine 10 mg bid + Imdur 30 mg daily for systolic CHF (unable to start ACEI or ARB, or spironolactone, with present renal dysfunction). Continue carvedilol. Severe systolic LV dysfunction. Off risperidone. F/u BUN/Cr, electrolytes, daily weight, Is and Os. TSH WNL. Total cholesterol 90 mg/dl. Keep K 4-4.5, Mg 2-2.4, PO4 2.5-4.9. Code(s): I50.43 - ACUTE ON CHRONIC COMBINED SYSTOLIC AND DIASTOLIC HRT FAIL (3) Anemia Code(s): D64.9 - ANEMIA, UNSPECIFIED Qualifiers: Anemia type: unspecified type Qualified Code(s): D64.9 - Anemia, unspecified (4) CKD (chronic kidney disease) Code(s): N18.9 - CHRONIC KIDNEY DISEASE, UNSPECIFIED Qualifiers: Chronic kidney disease stage: unspecified stage Qualified Code(s): N18.9 - Chronic kidney disease, unspecified (5) Decreased hearing Code(s): H91.90 - UNSPECIFIED HEARING LOSS, UNSPECIFIED EAR Qualifiers: Laterality: bilateral Qualified Code(s): H91.93 - Unspecified hearing loss , bilateral (6) Dyspnea Code(s): R06.00 - DYSPNEA, UNSPECIFIED Qualifiers: Dyspnea type: unspecified Qualified Code(s): R06.00 - Dyspnea, unspecified (7) Hypertension Assessment/Plan: on carvedilol Hydralazine + Imdur added for systolic CHF, HTN. Code(s): I10 - ESSENTIAL (PRIMARY) HYPERTENSION Qualifiers: Hypertension type: essential hypertension Qualified Code(s): I10 - Essential (primary) hypertension (8) Cardiac pacemaker in situ Assessment/Plan: atrial sensing, ventricular pacing likely not a candidate for ICD. Code(s): Z95.0 - PRESENCE OF CARDIAC PACEMAKER (9) Dementia Assessment/Plan: Now off risperidone, per ID. Code(s): F03.90 - UNSPECIFIED DEMENTIA WITHOUT BEHAVIORAL DISTURBANCE
[2019-08-08 07:44] LABS: BASO % 0.9 % (0-2.0); EOS % 3.5 % (0-4.5); HEMATOCRIT 22.7 % (35.4-49); HEMOGLOBIN 7.5 GM/dL (11.7-16.9); LYMPH % 6.2 % (8-40); MCH 27.8 pg (25.7-33.7); MCHC 33.3 g/dl (32.0-35.9); MEAN CELL VOLUME 83.6 fl (80-96); MEAN PLT VOLUME 9.1 fl (7.5-11.1); MONO % 7.5 % (3.8-10.2); NEUT % 81.9 % (42.8-82.8); PLATELET COUNT 107 K/MM3 (134-434); RBC 2.71 M/mm3 (4.00-5.60); RDW 17.9 % (11.9-15.9)
[2019-08-08 07:49] LABS: ALBUMIN 1.9 g/dl (3.4-5.0); BILIRUBIN,TOTAL 0.9 mg/dL (0.2-1); BLOOD UREA NITROGEN 63.8 mg/dL (7-18); CALCIUM 7.7 mg/dL (8.5-10.1); CREATININE 4.7 mg/dL (0.55-1.3); POTASSIUM 3.5 mmol/L (3.5-5.1); TOT PROT 5.6 g/dl (6.4-8.2)
[2019-08-08] MEDS: ASPIRIN COATED 81 MG TABLET.EC PO SCH (09:50)
[2019-08-08] MEDS: hydrALAZINE HCL 10 MG TABLET PO SCH ×2 (09:50→23:33)
[2019-08-08] MEDS: CARVEDILOL 12.5 MG TABLET (FP) PO SCH ×2 (09:50→23:33)
[2019-08-08] MEDS: ISOSORBIDE MONONITRATE 30 MG TAB.SR.24H (FP) PO SCH (09:50)
[2019-08-08] MEDS: PANTOPRAZOLE 40 MG TABLET (FP) PO SCH (09:50)
[2019-08-08] MEDS: HEPARIN NA (PORCINE) 5,000 UNITS/ML 1ML VIAL SQ SCH ×2 (09:51→23:33)
--- NOTE | 2019-08-08 10:37 | PN ---
Progress Note, Physician History of Present Illness: Lethargic, nonverbal, bld cx coag neg staph. Klebsiella PNA in urine. Not eating. - Current Medication List Current Medications: Active Medications Acetaminophen (Tylenol Suppository -) 650 mg [place] Q6H PRN PRN Reason: FEVER Aspirin (Ecotrin -) 81 mg PO DAILY [facility] Last Admin: 08/08/19 09:50 Dose: 81 mg Atorvastatin Calcium (Lipitor -) 20 mg PO HS [facility] Last Admin: 08/07/19 22:20 Dose: 20 mg Carvedilol (Coreg -) 12.5 mg PO BID [facility] Last Admin: 08/08/19 09:50 Dose: 12.5 mg Heparin Sodium (Porcine) (Heparin -) 5,000 unit SQ BID [facility] Last Admin: 08/08/19 09:51 Dose: 5,000 unit Hydralazine HCl (Apresoline -) 10 mg PO BID [facility] Last Admin: 08/08/19 09:50 Dose: 10 mg Piperacillin Sod/Tazobactam (Sod 2.25 gm/ Dextrose) 50 mls @ 100 mls/hr IVPB Q8H-IV [facility]; Protocol Last Admin: 08/08/19 09:50 Dose: 100 mls/hr Potassium Chloride 10 meq/ (Sodium Chloride) 1,005 mls @ 42 mls/hr IVPB Q24H [facility] Last Admin: 08/07/19 11:21 Dose: 42 mls/hr Isosorbide Mononitrate (Imdur -) 30 mg PO DAILY [facility] Last Admin: 08/08/19 09:50 Dose: 30 mg Latanoprost (Xalatan 0.005% Eye Drops -) 1 drop OU HS [facility] Last Admin: 08/07/19 22:21 Dose: 1 drop Pantoprazole Sodium (Protonix -) 40 mg PO DAILY [facility] Last Admin: 08/08/19 09:50 Dose: 40 mg - Objective Vital Signs: Vital Signs Temperature 99.0 F 08/08/19 09:00 Pulse Rate 70 08/08/19 09:00 Respiratory Rate 20 08/08/19 09:00 Blood Pressure 112/56 L 08/08/19 09:00 O2 Sat by Pulse Oximetry (%) 100 08/08/19 09:00 Constitutional: Yes: No Distress, Calm Neck: Yes: Supple Cardiovascular: Yes: Regular Rate and Rhythm Respiratory: Yes: Regular, Diminished, On Nasal O2 Gastrointestinal: Yes: Soft, Hypoactive Bowel Sounds Edema: No Labs: CBC, BMP 08/08/19 05:45 08/08/19 05:45 INR, PTT INR 1.21 (0.83-1.09) H 08/02/19 21:25 - ....Imaging EKG: Report Reviewed (Tele: v-paced) Problem List - Problems (1) Acute on chronic combined systolic and diastolic congestive heart failure Code(s): I50.43 - ACUTE ON CHRONIC COMBINED SYSTOLIC AND DIASTOLIC HRT FAIL (2) Acute and chronic respiratory failure with hypoxia Code(s): J96.21 - ACUTE AND CHRONIC RESPIRATORY FAILURE WITH HYPOXIA (3) Acute on chronic renal failure Code(s): N17.9 - ACUTE KIDNEY FAILURE, UNSPECIFIED; N18.9 - CHRONIC KIDNEY DISEASE, UNSPECIFIED Qualifiers: Chronic kidney disease stage: stage 3 (moderate) (4) COPD (chronic obstructive pulmonary disease) Code(s): J44.9 - CHRONIC OBSTRUCTIVE PULMONARY DISEASE, UNSPECIFIED Qualifiers: (5) Cardiac pacemaker in situ Code(s): Z95.0 - PRESENCE OF CARDIAC PACEMAKER (6) Systolic dysfunction without heart failure Code(s): I51.9 - HEART DISEASE, UNSPECIFIED (7) ASHD (arteriosclerotic heart disease) Code(s): I25.10 - ATHSCL HEART DISEASE OF [place] CORONARY ARTERY W/O ANG PCTRS (8) Diabetes mellitus Code(s): E11.9 - TYPE 2 DIABETES MELLITUS WITHOUT COMPLICATIONS Qualifiers: Diabetes mellitus type: type 2 Diabetes mellitus exterminator helper termite insulin use: without exterminator helper termite use Diabetes mellitus complication status: with unspecified complications (9) Hyperlipidemia Code(s): E78.5 - HYPERLIPIDEMIA, UNSPECIFIED Qualifiers: Hyperlipidemia type: pure hypercholesterolemia Qualified Code(s): E78.00 - Pure hypercholesterolemia, unspecified (10) Hypertension Code(s): I10 - ESSENTIAL (PRIMARY) HYPERTENSION Qualifiers: Hypertension type: essential hypertension Qualified Code(s): I10 - Essential (primary) hypertension Assessment/Plan 10/26/14 Echo: Normal biventricular size and fxn without sig valve abnl 11/28/2016 Echo: Mod-severely decreased LV fxn with severe HK lateral and inferolateral, mold MR, TR RVSP 40-50 mmHg 11/12/2017 Echo: Mod-severely decreased LV fxn with severe HK inferior, mild TR mild effusion 06/02/2018 Echo: Mild-mod decreased LV fxn with apical dyskinesis, mild MR 07/21/2019 Echo: Mildly dilated LV with severely decreased LVEF, normal RV size and fxn, mild MR, tr TR, RV pacing 08/04/2019 Echo: Mildly dilated LV with severely decreased LVEF, normal RV size and fxn, tr TR RV pacemaker 1. Coag neg staph sepsis, Klebsiella PNA UTI 2. Chronic Hypoxic Respiratory Failure referable to 3. Chronic Systolic Heart Failure 4. 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 Advanced AV block post pacemaker implant interrogated 11/2016 7. HTN 8. Hypercholesterolemia 9. DHEERAJ 10. Acute on CKD 11. Anemia of chronic disease with h/o diverticular disease 12. Dementia PLAN: 1. Hold diuretics with monitor renal fxn and electrolytes 2. Continue Carvedilol 12.5 bid, Lipitor 20 qhs, ASA 81 qd, started hydralazine 10 bid and Imdur 30 qd (BiDil) and holding losartan 100 qd pending renal fxn stabilization 3. Bronchodilators, abx course per C&S, wean FIO2 for saO2>90% 4. GI and DVT prophylaxis, consider enteral feeds via NGT
--- NOTE | 2019-08-08 12:22 | PN ---
Progress Note, Physician History of Present Illness: patient non verbal lethargic - Current Medication List Current Medications: Active Medications Acetaminophen (Tylenol Suppository -) 650 mg [place] Q6H PRN PRN Reason: FEVER Aspirin (Ecotrin -) 81 mg PO DAILY [facility] Last Admin: 08/08/19 09:50 Dose: Not Given Atorvastatin Calcium (Lipitor -) 20 mg PO HS [facility] Last Admin: 08/07/19 22:20 Dose: 20 mg Carvedilol (Coreg -) 12.5 mg PO BID [facility] Last Admin: 08/08/19 09:50 Dose: Not Given Heparin Sodium (Porcine) (Heparin -) 5,000 unit SQ BID [facility] Last Admin: 08/08/19 09:51 Dose: 5,000 unit Hydralazine HCl (Apresoline -) 10 mg PO BID [facility] Last Admin: 08/08/19 09:50 Dose: Not Given Piperacillin Sod/Tazobactam (Sod 2.25 gm/ Dextrose) 50 mls @ 100 mls/hr IVPB Q8H-IV [facility]; Protocol Last Admin: 08/08/19 09:50 Dose: 100 mls/hr Potassium Chloride 10 meq/ (Sodium Chloride) 1,005 mls @ 42 mls/hr IVPB Q24H [facility] Last Admin: 08/07/19 11:21 Dose: 42 mls/hr Isosorbide Mononitrate (Imdur -) 30 mg PO DAILY [facility] Last Admin: 08/08/19 09:50 Dose: Not Given Latanoprost (Xalatan 0.005% Eye Drops -) 1 drop OU HS [facility] Last Admin: 08/07/19 22:21 Dose: 1 drop Pantoprazole Sodium (Protonix -) 40 mg PO DAILY [facility] Last Admin: 08/08/19 09:50 Dose: Not Given - Objective Vital Signs: Vital Signs Temperature 99.0 F 08/08/19 09:00 Pulse Rate 70 08/08/19 09:00 Respiratory Rate 20 08/08/19 09:00 Blood Pressure 112/56 L 08/08/19 09:00 O2 Sat by Pulse Oximetry (%) 100 08/08/19 09:00 Constitutional: Yes: No Distress, Calm Cardiovascular: Yes: S1, S2 Respiratory: Yes: Regular, CTA Bilaterally Gastrointestinal: Yes: Normal Bowel Sounds, Soft Musculoskeletal: Yes: WNL Extremities: Yes: Other Neurological: Yes: Other Labs: CBC, BMP 08/08/19 05:45 08/08/19 05:45 INR, PTT INR 1.21 (0.83-1.09) H 08/02/19 21:25 Assessment/Plan Problem List - Problems (1) Acute on chronic combined systolic and diastolic congestive heart failure Code(s): I50.43 - ACUTE ON CHRONIC COMBINED SYSTOLIC AND DIASTOLIC HRT FAIL (2) Anemia Code(s): D64.9 - ANEMIA, UNSPECIFIED Qualifiers: Anemia type: unspecified type Qualified Code(s): D64.9 - Anemia, unspecified (3) Acute and chronic respiratory failure with hypoxia Code(s): J96.21 - ACUTE AND CHRONIC RESPIRATORY FAILURE WITH HYPOXIA (4) Acute on chronic renal failure Code(s): N17.9 - ACUTE KIDNEY FAILURE, UNSPECIFIED; N18.9 - CHRONIC KIDNEY DISEASE, UNSPECIFIED Qualifiers: Chronic kidney disease stage: stage 3 (moderate) (5) CHF (congestive heart failure) Code(s): I50.9 - HEART FAILURE, UNSPECIFIED Qualifiers: Heart failure type: combined systolic and diastolic Heart failure chronicity: chronic Qualified Code(s): I50.42 - Chronic combined systolic ( congestive) and diastolic (congestive) heart failure (6) COPD (chronic obstructive pulmonary disease) Code(s): J44.9 - CHRONIC OBSTRUCTIVE PULMONARY DISEASE, UNSPECIFIED Qualifiers: (7) Pneumonia Code(s): J18.9 - PNEUMONIA, UNSPECIFIED ORGANISM plan continue current mgmt peg tube probably needed nutrition rest as per the team
--- NOTE | 2019-08-08 13:17 | PN ---
Progress Note (short form) - Note Progress Note: pt seen/ examined awake not talking comfortable all f/u noted afebrile Vital Signs Temp 99.0 F 08/08/19 09:00 Pulse 70 08/08/19 09:00 Resp 20 08/08/19 09:00 BP 112/56 L 08/08/19 09:00 Pulse Ox 100 08/08/19 10:00 Intake & Output 08/07/19 08/08/19 08/08/19 23:59 11:59 23:59 Intake Total 750 550 240 Output Total 25 Balance 750 525 240 Weight 151 lb 6.4 oz Intake: IV 300 500 SL 2 300 saline lock 500 IVPB 100 50 Oral 350 240 Output: Urine 25 Void 25 Other: Voiding Method Indwelling Catheter Indwelling Catheter Indwelling Catheter # Unmeasured Voids Anthony 1 Void 1 2 Bowel Movement Yes Yes # Bowel Movements 1 Weight Measurement Method Patient Lift Scale Active Medications Acetaminophen (Tylenol Suppository -) 650 mg [place] Q6H PRN PRN Reason: FEVER Aspirin (Ecotrin -) 81 mg PO DAILY [facility] Last Admin: 08/08/19 09:50 Dose: Not Given Atorvastatin Calcium (Lipitor -) 20 mg PO HS [facility] Last Admin: 08/07/19 22:20 Dose: 20 mg Carvedilol (Coreg -) 12.5 mg PO BID [facility] Last Admin: 08/08/19 09:50 Dose: Not Given Heparin Sodium (Porcine) (Heparin -) 5,000 unit SQ BID [facility] Last Admin: 08/08/19 09:51 Dose: 5,000 unit Hydralazine HCl (Apresoline -) 10 mg PO BID [facility] Last Admin: 08/08/19 09:50 Dose: Not Given Piperacillin Sod/Tazobactam (Sod 2.25 gm/ Dextrose) 50 mls @ 100 mls/hr IVPB Q8H-IV [facility]; Protocol Last Admin: 08/08/19 09:50 Dose: 100 mls/hr Potassium Chloride 10 meq/ (Sodium Chloride) 1,005 mls @ 42 mls/hr IVPB Q24H [facility] Last Admin: 08/07/19 11:21 Dose: 42 mls/hr Isosorbide Mononitrate (Imdur -) 30 mg PO DAILY [facility] Last Admin: 08/08/19 09:50 Dose: Not Given Latanoprost (Xalatan 0.005% Eye Drops -) 1 drop OU HS [facility] Last Admin: 08/07/19 22:21 Dose: 1 drop Pantoprazole Sodium (Protonix -) 40 mg PO DAILY [facility] Last Admin: 08/08/19 09:50 Dose: Not Given CBC, BMP 08/08/19 05:45 08/08/19 05:45 Microbiology 08/06/19 18:17 Urine Culture - Final Urine - Urine Anthony NO GROWTH OBTAINED 08/05/19 05:38 Blood Culture - Preliminary Blood - Peripheral Venous NO GROWTH OBTAINED AFTER 72 HOURS, INCUBATION TO CONTINUE FOR 2 DAYS. 08/05/19 05:14 Blood Culture - Preliminary Blood - Peripheral Venous NO GROWTH OBTAINED AFTER 72 HOURS, INCUBATION TO CONTINUE FOR 2 DAYS. 08/02/19 21:28 Blood Culture - Final Blood - Peripheral Venous Staphylococcus Coagulase Neg 08/02/19 21:25 Blood Culture - Final Blood - Peripheral Venous Staphylococcus Coagulase Neg Physical Exam Awake S1 S2 RRR Lungs decreased breath sounds Abd- soft, obese, NT No edema Neuro- Non focal. ++++Nails PLAN D/W RN Continue present care Iv antibiotics monitor renal function --worsening Cardiology and renal following mild hydration off risperdone will follow avoid nephrotoxins monitor lytes overall condition gaurded will follow.
--- NOTE | 2019-08-08 13:40 | PN ---
Progress Note, Physician History of Present Illness: Pt seen and examined at bedside. he has poor PO inake. he denies shortness of breath. - Current Medication List Current Medications: Active Medications Acetaminophen (Tylenol Suppository -) 650 mg [place] Q6H PRN PRN Reason: FEVER Aspirin (Ecotrin -) 81 mg PO DAILY [facility] Last Admin: 08/08/19 09:50 Dose: Not Given Atorvastatin Calcium (Lipitor -) 20 mg PO HS [facility] Last Admin: 08/07/19 22:20 Dose: 20 mg Carvedilol (Coreg -) 12.5 mg PO BID [facility] Last Admin: 08/08/19 09:50 Dose: Not Given Heparin Sodium (Porcine) (Heparin -) 5,000 unit SQ BID [facility] Last Admin: 08/08/19 09:51 Dose: 5,000 unit Hydralazine HCl (Apresoline -) 10 mg PO BID [facility] Last Admin: 08/08/19 09:50 Dose: Not Given Piperacillin Sod/Tazobactam (Sod 2.25 gm/ Dextrose) 50 mls @ 100 mls/hr IVPB Q8H-IV [facility]; Protocol Last Admin: 08/08/19 09:50 Dose: 100 mls/hr Potassium Chloride 10 meq/ (Sodium Chloride) 1,005 mls @ 42 mls/hr IVPB Q24H [facility] Last Admin: 08/07/19 11:21 Dose: 42 mls/hr Isosorbide Mononitrate (Imdur -) 30 mg PO DAILY [facility] Last Admin: 08/08/19 09:50 Dose: Not Given Latanoprost (Xalatan 0.005% Eye Drops -) 1 drop OU HS [facility] Last Admin: 08/07/19 22:21 Dose: 1 drop Pantoprazole Sodium (Protonix -) 40 mg PO DAILY [facility] Last Admin: 08/08/19 09:50 Dose: Not Given - Objective Vital Signs: Vital Signs Temperature 99.0 F 08/08/19 09:00 Pulse Rate 70 08/08/19 09:00 Respiratory Rate 20 08/08/19 09:00 Blood Pressure 112/56 L 08/08/19 09:00 O2 Sat by Pulse Oximetry (%) 100 08/08/19 10:00 Constitutional: Yes: Calm Eyes: Yes: Conjunctiva Clear HENT: Yes: Atraumatic Cardiovascular: Yes: S1, S2 Respiratory: Yes: On Nasal O2 Gastrointestinal: Yes: Soft Genitourinary: Yes: Incontinence Musculoskeletal: Yes: WNL Edema: No Neurological: Yes: Confusion Psychiatric: Yes: Oriented Labs: CBC, BMP 08/08/19 05:45 08/08/19 05:45 INR, PTT INR 1.21 (0.83-1.09) H 08/02/19 21:25 Problem List - Problems (1) CKD (chronic kidney disease) Code(s): N18.9 - CHRONIC KIDNEY DISEASE, UNSPECIFIED Qualifiers: Chronic kidney disease stage: unspecified stage Qualified Code(s): N18.9 - Chronic kidney disease, unspecified (2) Acute kidney injury Code(s): N17.9 - ACUTE KIDNEY FAILURE, UNSPECIFIED Assessment/Plan Current Medications Generic Name Dose Route Start Last Admin Trade Name Freq PRN Reason Stop Dose Admin Acetaminophen 650 mg 08/05/19 17:07 Tylenol Suppository - [place] Q6H PRN FEVER Aspirin 81 mg 08/03/19 10:00 08/08/19 09:50 Ecotrin - PO Not Given DAILY [facility] Atorvastatin Calcium 20 mg 08/03/19 22:00 08/07/19 22:20 Lipitor - PO 20 mg HS [facility] Administration Carvedilol 12.5 mg 08/03/19 10:00 08/08/19 09:50 Coreg - PO Not Given BID [facility] Heparin Sodium (Porcine) 5,000 unit 08/04/19 22:00 08/08/19 09:51 Heparin - SQ 5,000 unit BID [facility] Administration Hydralazine HCl 10 mg 08/06/19 12:15 08/08/19 09:50 Apresoline - PO Not Given BID [facility] Piperacillin Sod/Tazobactam 50 mls @ 100 mls/hr 08/03/19 18:00 08/08/19 09:50 Sod 2.25 gm/ Dextrose IVPB 100 mls/hr Q8H-IV [facility] Administration Protocol Potassium Chloride 10 meq/ 1,005 mls @ 42 mls/hr 08/07/19 10:30 08/07/19 11: 21 Sodium Chloride IVPB 42 mls/hr Q24H [facility] Administration Isosorbide Mononitrate 30 mg 08/06/19 12:15 08/08/19 09:50 Imdur - PO Not Given DAILY [facility] Latanoprost 1 drop 08/03/19 22:00 08/07/19 22:21 Xalatan 0.005% Eye Drops - OU 1 drop HS [facility] Administration Pantoprazole Sodium 40 mg 08/03/19 10:00 08/08/19 09:50 Protonix - PO Not Given DAILY [facility] Impression 1. LAURA 2. lethargy 3. recent pna and sepsis 4. ckd 5. copd 6. dm 7. hx htn 8. dementia Plan - cont fluids - ID follow up for abx - repeat labs in am - check urine eos - monitor bp
[2019-08-08] MEDS: POTASSIUM CHLORIDE 10 MEQ in SODIUM CHLORIDE 0.45% 1,000 ML IVPB SCH ×2 (15:37→15:39)
[2019-08-08] MEDS: LATANOPROST 0.005% OPHTH SOLN 2.5ML BOTTLE OU SCH (23:32)
[2019-08-08] MEDS: ATORVASTATIN CA 20 MG TABLET (FP) PO SCH (23:33)
[2019-08-09] MEDS ORDERED: PIPERACILLIN/TAZOBACTAM 2.25 GM VIAL IVPB ONE ×2 (02:22→09:45)
[2019-08-09] MEDS ORDERED: DEXTROSE 5%-WATER - 50 ML IVPB ONE ×2 (02:22→09:45)
[2019-08-09] MEDS: PIPERACILLIN/TAZOB 2.25 GM 2.25 GM in DEXTROSE 5%-WATER - 50 ML IVPB SCH ×2 (02:48→10:01)
[2019-08-09 07:46] LABS: BLOOD UREA NITROGEN 67.2 mg/dL (7-18); CALCIUM 8.3 mg/dL (8.5-10.1); CREATININE 4.5 mg/dL (0.55-1.3); POTASSIUM 3.6 mmol/L (3.5-5.1)
[2019-08-09] MEDS: hydrALAZINE HCL 10 MG TABLET PO SCH ×2 (09:25→21:54)
[2019-08-09] MEDS: CARVEDILOL 12.5 MG TABLET (FP) PO SCH ×2 (09:25→21:54)
[2019-08-09] MEDS: POTASSIUM CHLORIDE 10 MEQ in SODIUM CHLORIDE 0.45% 1,000 ML IVPB SCH ×2 (09:25→13:50)
[2019-08-09] MEDS: ISOSORBIDE MONONITRATE 30 MG TAB.SR.24H (FP) PO SCH (09:26)
[2019-08-09] MEDS: PANTOPRAZOLE 40 MG TABLET (FP) PO SCH (09:26)
[2019-08-09] MEDS: ASPIRIN COATED 81 MG TABLET.EC PO SCH (09:26)
[2019-08-09] MEDS: HEPARIN NA (PORCINE) 5,000 UNITS/ML 1ML VIAL SQ SCH ×2 (10:01→21:54)
--- NOTE | 2019-08-09 10:26 | PN ---
Progress Note, Physician Chief Complaint: Events noted Difficulty swallowing History of Present Illness: Patient was seen and examined. Nonverbal. Chart was reviewed - Current Medication List Current Medications: Active Medications Acetaminophen (Tylenol Suppository -) 650 mg [place] Q6H PRN PRN Reason: FEVER Last Admin: 08/08/19 17:37 Dose: 650 mg Aspirin (Ecotrin -) 81 mg PO DAILY [facility] Last Admin: 08/09/19 09:26 Dose: Not Given Atorvastatin Calcium (Lipitor -) 20 mg PO HS [facility] Last Admin: 08/08/19 23:33 Dose: Not Given Carvedilol (Coreg -) 12.5 mg PO BID [facility] Last Admin: 08/09/19 09:25 Dose: 12.5 mg Heparin Sodium (Porcine) (Heparin -) 5,000 unit SQ BID [facility] Last Admin: 08/09/19 10:01 Dose: 5,000 unit Hydralazine HCl (Apresoline -) 10 mg PO BID [facility] Last Admin: 08/09/19 09:25 Dose: 10 mg Piperacillin Sod/Tazobactam (Sod 2.25 gm/ Dextrose) 50 mls @ 100 mls/hr IVPB Q8H-IV [facility]; Protocol Last Admin: 08/09/19 10:01 Dose: 100 mls/hr Potassium Chloride 10 meq/ (Sodium Chloride) 1,005 mls @ 55 mls/hr IVPB Q18H [facility] Last Admin: 08/09/19 09:25 Dose: Not Given Isosorbide Mononitrate (Imdur -) 30 mg PO DAILY [facility] Last Admin: 08/09/19 09:26 Dose: Not Given Latanoprost (Xalatan 0.005% Eye Drops -) 1 drop OU HS [facility] Last Admin: 08/08/19 23:32 Dose: 1 drop Pantoprazole Sodium (Protonix -) 40 mg PO DAILY [facility] Last Admin: 08/09/19 09:26 Dose: Not Given - Objective Vital Signs: Vital Signs Temperature 99.4 F 08/09/19 09:53 Pulse Rate 80 08/09/19 09:53 Respiratory Rate 20 08/09/19 09:53 Blood Pressure 120/64 08/09/19 09:53 O2 Sat by Pulse Oximetry (%) 98 08/08/19 22:00 Cardiovascular: Yes: Regular Rate and Rhythm, S1, S2 Respiratory: Yes: Diminished Gastrointestinal: Yes: Normal Bowel Sounds, Soft. No: Tenderness Edema: No Labs: CBC, BMP 08/08/19 05:45 08/09/19 05:45 Problem List - Problems (1) Acute on chronic combined systolic and diastolic congestive heart failure Code(s): I50.43 - ACUTE ON CHRONIC COMBINED SYSTOLIC AND DIASTOLIC HRT FAIL (2) Anemia Code(s): D64.9 - ANEMIA, UNSPECIFIED Qualifiers: Anemia type: unspecified type Qualified Code(s): D64.9 - Anemia, unspecified (3) CKD (chronic kidney disease) Code(s): N18.9 - CHRONIC KIDNEY DISEASE, UNSPECIFIED Qualifiers: Chronic kidney disease stage: unspecified stage Qualified Code(s): N18.9 - Chronic kidney disease, unspecified (4) Dementia Code(s): F03.90 - UNSPECIFIED DEMENTIA WITHOUT BEHAVIORAL DISTURBANCE (5) Sepsis Code(s): A41.9 - SEPSIS, UNSPECIFIED ORGANISM (6) UTI (urinary tract infection) Code(s): N39.0 - URINARY TRACT INFECTION, SITE NOT SPECIFIED Qualifiers: Urinary tract infection type: site unspecified Hematuria presence: without hematuria Qualified Code(s): N39.0 - Urinary tract infection, site not specified (7) Acute and chronic respiratory failure Code(s): J96.20 - ACUTE AND CHR RESP FAILURE, UNSP W HYPOXIA OR HYPERCAPNIA Qualifiers: Respiratory failure complication: hypoxia Qualified Code(s): J96.21 - Acute and chronic respiratory failure with hypoxia (8) Acute and chronic respiratory failure with hypoxia Code(s): J96.21 - ACUTE AND CHRONIC RESPIRATORY FAILURE WITH HYPOXIA (9) Acute on chronic renal failure Code(s): N17.9 - ACUTE KIDNEY FAILURE, UNSPECIFIED; N18.9 - CHRONIC KIDNEY DISEASE, UNSPECIFIED Qualifiers: Chronic kidney disease stage: stage 3 (moderate) (10) COPD (chronic obstructive pulmonary disease) Code(s): J44.9 - CHRONIC OBSTRUCTIVE PULMONARY DISEASE, UNSPECIFIED Qualifiers: (11) Cardiac pacemaker in situ Code(s): Z95.0 - PRESENCE OF CARDIAC PACEMAKER (12) Diastolic dysfunction without heart failure Code(s): I51.9 - HEART DISEASE, UNSPECIFIED (13) Generalized weakness Code(s): R53.1 - WEAKNESS (14) High-grade atrioventricular block Code(s): I44.39 - OTHER ATRIOVENTRICULAR BLOCK (15) ASHD (arteriosclerotic heart disease) Code(s): I25.10 - ATHSCL HEART DISEASE OF [place] CORONARY ARTERY W/O ANG PCTRS (16) Diabetes mellitus Code(s): E11.9 - TYPE 2 DIABETES MELLITUS WITHOUT COMPLICATIONS Qualifiers: Diabetes mellitus type: type 2 Diabetes mellitus terminal make up operator insulin use: without usp use Diabetes mellitus complication status: with unspecified complications (17) Hyperlipidemia Code(s): E78.5 - HYPERLIPIDEMIA, UNSPECIFIED Qualifiers: Hyperlipidemia type: pure hypercholesterolemia Qualified Code(s): E78.00 - Pure hypercholesterolemia, unspecified (18) Hypertension Code(s): I10 - ESSENTIAL (PRIMARY) HYPERTENSION Qualifiers: Hypertension type: essential hypertension Qualified Code(s): I10 - Essential (primary) hypertension Assessment/Plan 1. Coag negative staph sepsis and Klebsiella pneumonia and UTI 2. Chronic Hypoxic Respiratory Failure 3. Chronic Systolic Heart Failure 4. 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 Advanced AV block post pacemaker implant 7. HTN 8. Hypercholesterolemia 9. DHEERAJ 10. Acute on CKD 11. Anemia of chronic disease with h/o diverticular disease 12. Dementia PLAN: 1. Diuretics held with monitoring renal function and electrolytes 2. Continue Carvedilol 12.5 mg BID, Lipitor 20 mg QHS, ASA 81 mg QD and Hydralazine 10 mg BID. Imdur may neede to be switched to a patch if difficulty swallowing. Losartan held pending renal function stabilization 3. Bronchodilators, antibiotic coverage 4. GI and DVT prophylaxis and consider enteral feeds via NGT Further plans are to follow Weston Tillman MD
--- NOTE | 2019-08-09 13:41 | PN ---
Progress Note, Physician History of Present Illness: patient non verbal lno new issues - Current Medication List Current Medications: Active Medications Acetaminophen (Tylenol Suppository -) 650 mg [place] Q6H PRN PRN Reason: FEVER Last Admin: 08/08/19 17:37 Dose: 650 mg Aspirin (Ecotrin -) 81 mg PO DAILY [facility] Last Admin: 08/09/19 09:26 Dose: Not Given Atorvastatin Calcium (Lipitor -) 20 mg PO HS [facility] Last Admin: 08/08/19 23:33 Dose: Not Given Carvedilol (Coreg -) 12.5 mg PO BID [facility] Last Admin: 08/09/19 09:25 Dose: 12.5 mg Heparin Sodium (Porcine) (Heparin -) 5,000 unit SQ BID [facility] Last Admin: 08/09/19 10:01 Dose: 5,000 unit Hydralazine HCl (Apresoline -) 10 mg PO BID [facility] Last Admin: 08/09/19 09:25 Dose: 10 mg Piperacillin Sod/Tazobactam (Sod 2.25 gm/ Dextrose) 50 mls @ 100 mls/hr IVPB Q8H-IV DINESH; Protocol Last Admin: 08/09/19 10:01 Dose: 100 mls/hr Potassium Chloride 10 meq/ (Sodium Chloride) 1,005 mls @ 55 mls/hr IVPB Q18H [facility] Last Admin: 08/09/19 09:25 Dose: Not Given Isosorbide Mononitrate (Imdur -) 30 mg PO DAILY [facility] Last Admin: 08/09/19 09:26 Dose: Not Given Latanoprost (Xalatan 0.005% Eye Drops -) 1 drop OU HS [facility] Last Admin: 08/08/19 23:32 Dose: 1 drop Pantoprazole Sodium (Protonix -) 40 mg PO DAILY [facility] Last Admin: 08/09/19 09:26 Dose: Not Given - Objective Vital Signs: Vital Signs Temperature 99.4 F 08/09/19 09:53 Pulse Rate 80 08/09/19 09:53 Respiratory Rate 20 08/09/19 09:53 Blood Pressure 120/64 08/09/19 09:53 O2 Sat by Pulse Oximetry (%) 100 08/09/19 10:00 Constitutional: Yes: No Distress, Calm Cardiovascular: Yes: S1, S2 Respiratory: Yes: Regular, CTA Bilaterally Gastrointestinal: Yes: Normal Bowel Sounds, Soft Musculoskeletal: Yes: WNL Extremities: Yes: Other Neurological: Yes: Other Labs: CBC, BMP 08/08/19 05:45 08/09/19 05:45 INR, PTT INR 1.21 (0.83-1.09) H 08/02/19 21:25 Assessment/Plan Problem List - Problems (1) Acute on chronic combined systolic and diastolic congestive heart failure Code(s): I50.43 - ACUTE ON CHRONIC COMBINED SYSTOLIC AND DIASTOLIC HRT FAIL (2) Anemia Code(s): D64.9 - ANEMIA, UNSPECIFIED Qualifiers: Anemia type: unspecified type Qualified Code(s): D64.9 - Anemia, unspecified (3) Acute and chronic respiratory failure with hypoxia Code(s): J96.21 - ACUTE AND CHRONIC RESPIRATORY FAILURE WITH HYPOXIA (4) Acute on chronic renal failure Code(s): N17.9 - ACUTE KIDNEY FAILURE, UNSPECIFIED; N18.9 - CHRONIC KIDNEY DISEASE, UNSPECIFIED Qualifiers: Chronic kidney disease stage: stage 3 (moderate) (5) CHF (congestive heart failure) Code(s): I50.9 - HEART FAILURE, UNSPECIFIED Qualifiers: Heart failure type: combined systolic and diastolic Heart failure chronicity: chronic Qualified Code(s): I50.42 - Chronic combined systolic ( congestive) and diastolic (congestive) heart failure (6) COPD (chronic obstructive pulmonary disease) Code(s): J44.9 - CHRONIC OBSTRUCTIVE PULMONARY DISEASE, UNSPECIFIED Qualifiers: (7) Pneumonia Code(s): J18.9 - PNEUMONIA, UNSPECIFIED ORGANISM plan continue current mgmt peg tube probably needed nutrition rest as per the team will stop abx
[2019-08-09] MEDS ORDERED: PT OWN MED DRAWER 7, Y5N ONE (13:45)
--- NOTE | 2019-08-09 14:18 | PN ---
Progress Note, Physician History of Present Illness: Pt seen and examined at bedside. He appears comfortable. No new events. - Current Medication List Current Medications: Active Medications Acetaminophen (Tylenol Suppository -) 650 mg [place] Q6H PRN PRN Reason: FEVER Last Admin: 08/08/19 17:37 Dose: 650 mg Aspirin (Ecotrin -) 81 mg PO DAILY [facility] Last Admin: 08/09/19 09:26 Dose: Not Given Atorvastatin Calcium (Lipitor -) 20 mg PO HS [facility] Last Admin: 08/08/19 23:33 Dose: Not Given Carvedilol (Coreg -) 12.5 mg PO BID [facility] Last Admin: 08/09/19 09:25 Dose: 12.5 mg Heparin Sodium (Porcine) (Heparin -) 5,000 unit SQ BID [facility] Last Admin: 08/09/19 10:01 Dose: 5,000 unit Hydralazine HCl (Apresoline -) 10 mg PO BID [facility] Last Admin: 08/09/19 09:25 Dose: 10 mg Potassium Chloride 10 meq/ (Sodium Chloride) 1,005 mls @ 55 mls/hr IVPB Q18H [facility] Last Admin: 08/09/19 13:50 Dose: 55 mls/hr Isosorbide Mononitrate (Imdur -) 30 mg PO DAILY [facility] Last Admin: 08/09/19 09:26 Dose: Not Given Latanoprost (Xalatan 0.005% Eye Drops -) 1 drop OU HS [facility] Last Admin: 08/08/19 23:32 Dose: 1 drop Pantoprazole Sodium (Protonix -) 40 mg PO DAILY [facility] Last Admin: 08/09/19 09:26 Dose: Not Given - Objective Vital Signs: Vital Signs Temperature 99.4 F 08/09/19 09:53 Pulse Rate 82 08/09/19 13:51 Respiratory Rate 20 08/09/19 09:53 Blood Pressure 129/54 L 08/09/19 13:51 O2 Sat by Pulse Oximetry (%) 100 08/09/19 10:00 Constitutional: Yes: Calm Eyes: Yes: Conjunctiva Clear Cardiovascular: Yes: S1, S2 Respiratory: Yes: CTA Bilaterally Gastrointestinal: Yes: Soft Genitourinary: Yes: Incontinence Musculoskeletal: Yes: Muscle Weakness Edema: No Neurological: Yes: Confusion Labs: CBC, BMP 08/08/19 05:45 08/09/19 05:45 INR, PTT INR 1.21 (0.83-1.09) H 08/02/19 21:25 Problem List - Problems (1) CKD (chronic kidney disease) Code(s): N18.9 - CHRONIC KIDNEY DISEASE, UNSPECIFIED Qualifiers: Chronic kidney disease stage: unspecified stage Qualified Code(s): N18.9 - Chronic kidney disease, unspecified (2) Acute kidney injury Code(s): N17.9 - ACUTE KIDNEY FAILURE, UNSPECIFIED Assessment/Plan Current Medications Generic Name Dose Route Start Last Admin Trade Name Freq PRN Reason Stop Dose Admin Acetaminophen 650 mg 08/05/19 17:07 08/08/19 17:37 Tylenol Suppository - [place] 650 mg Q6H PRN Administration FEVER Aspirin 81 mg 08/03/19 10:00 08/09/19 09:26 Ecotrin - PO Not Given DAILY DIN[facility] Atorvastatin Calcium 20 mg 08/03/19 22:00 08/08/19 23:33 Lipitor - PO Not Given HS DINESH Carvedilol 12.5 mg 08/03/19 10:00 08/09/19 09:25 Coreg - PO 12.5 mg BID DINESH Administration Heparin Sodium (Porcine) 5,000 unit 08/04/19 22:00 08/09/19 10:01 Heparin - SQ 5,000 unit BID [facility]IN[facility] Administration Hydralazine HCl 10 mg 08/06/19 12:15 08/09/19 09:25 Apresoline - PO 10 mg BID [facility]IN[facility] Administration Potassium Chloride 10 meq/ 1,005 mls @ 55 mls/hr 08/08/19 13:40 08/09/19 13: 50 Sodium Chloride IVPB 55 mls/hr Q18H DINESH Administration Isosorbide Mononitrate 30 mg 08/06/19 12:15 08/09/19 09:26 Imdur - PO Not Given DAILY [facility]IN[facility] Latanoprost 1 drop 08/03/19 22:00 08/08/19 23:32 Xalatan 0.005% Eye Drops - OU 1 drop HS DINESH Administration Pantoprazole Sodium 40 mg 08/03/19 10:00 08/09/19 09:26 Protonix - PO Not Given DAILY [facility]IN[facility] Impression 1. LAURA 2. lethargy 3. recent pna and sepsis 4. ckd 5. copd 6. dm 7. hx htn 8. dementia Plan - renal function is improving - zosyn stopped, discussed with ID - cont fluids - po intake poor - check urine eos if he can give urine - monitor bp
--- NOTE | 2019-08-09 16:00 | PN ---
Progress Note (short form) - Note Progress Note: awake now No distress Risperidol dc He is eating better now per staff Vital Signs - 24 hr 08/08/19 08/08/19 08/08/19 18:00 21:00 22:00 Temperature 97.6 F Pulse Rate 65 69 Respiratory 20 18 Rate Blood Pressure 104/49 L 139/66 O2 Sat by Pulse 98 98 Oximetry (%) 08/09/19 08/09/19 08/09/19 02:00 06:00 09:00 Temperature 99 F 97.5 F L Pulse Rate 72 87 Respiratory 20 20 Rate Blood Pressure 107/59 L 102/55 L O2 Sat by Pulse 100 Oximetry (%) 08/09/19 08/09/19 08/09/19 09:53 10:00 13:51 Temperature 99.4 F Pulse Rate 80 82 Respiratory 20 Rate Blood Pressure 120/64 129/54 L O2 Sat by Pulse 100 Oximetry (%) Current Medications Generic Name Dose Route Start Last Admin Trade Name Freq PRN Reason Stop Dose Admin Acetaminophen 650 mg 08/05/19 17:07 08/08/19 17:37 Tylenol Suppository - [place] 650 mg Q6H PRN Administration FEVER Aspirin 81 mg 08/03/19 10:00 08/09/19 09:26 Ecotrin - PO Not Given DAILY [facility] Atorvastatin Calcium 20 mg 08/03/19 22:00 08/08/19 23:33 Lipitor - PO Not Given HS DINESH Carvedilol 12.5 mg 08/03/19 10:00 08/09/19 09:25 Coreg - PO 12.5 mg BID [facility]IN[facility] Administration Heparin Sodium (Porcine) 5,000 unit 08/04/19 22:00 08/09/19 10:01 Heparin - SQ 5,000 unit BID [facility]IN[facility] Administration Hydralazine HCl 10 mg 08/06/19 12:15 08/09/19 09:25 Apresoline - PO 10 mg BID [facility]IN[facility] Administration Potassium Chloride 10 meq/ 1,005 mls @ 55 mls/hr 08/08/19 13:40 08/09/19 13: 50 Sodium Chloride IVPB 55 mls/hr Q18H [facility]IN[facility] Administration Isosorbide Mononitrate 30 mg 08/06/19 12:15 08/09/19 09:26 Imdur - PO Not Given DAILY [facility] Latanoprost 1 drop 08/03/19 22:00 08/08/19 23:32 Xalatan 0.005% Eye Drops - OU 1 drop HS [facility]IN[facility] Administration Pantoprazole Sodium 40 mg 08/03/19 10:00 08/09/19 09:26 Protonix - PO Not Given DAILY [facility] Laboratory Results - last 24 hr 08/09/19 05:45 Sodium 140 Potassium 3.6 Chloride 106 Carbon Dioxide 22 Anion Gap 13 BUN 67.2 H Creatinine 4.5 H Est GFR (CKD-EPI)AfAm 12.85 Est GFR (CKD-EPI)NonAf 11.09 Random Glucose 72 L Calcium 8.3 L Microbiology 08/05/19 05:38 Blood Culture - Preliminary Blood - Peripheral Venous NO GROWTH OBTAINED AFTER 96 HOURS, INCUBATION TO CONTINUE FOR 1 DAYS. 08/05/19 05:14 Blood Culture - Preliminary Blood - Peripheral Venous NO GROWTH OBTAINED AFTER 96 HOURS, INCUBATION TO CONTINUE FOR 1 DAYS. S1 S2 RRR Lungs decreased breath sounds Abd- soft, obese, NT No edema PLAN Iv antibiotics dc monitor renal function -->better clinically better PT eval podiatry for the finger nails Problem List - Problems (1) Acute on chronic combined systolic and diastolic congestive heart failure Code(s): I50.43 - ACUTE ON CHRONIC COMBINED SYSTOLIC AND DIASTOLIC HRT FAIL (2) Anemia Code(s): D64.9 - ANEMIA, UNSPECIFIED Qualifiers: Anemia type: unspecified type Qualified Code(s): D64.9 - Anemia, unspecified (3) Acute and chronic respiratory failure with hypoxia Code(s): J96.21 - ACUTE AND CHRONIC RESPIRATORY FAILURE WITH HYPOXIA (4) Acute on chronic renal failure Code(s): N17.9 - ACUTE KIDNEY FAILURE, UNSPECIFIED; N18.9 - CHRONIC KIDNEY DISEASE, UNSPECIFIED Qualifiers: Chronic kidney disease stage: stage 3 (moderate) (5) CHF (congestive heart failure) Code(s): I50.9 - HEART FAILURE, UNSPECIFIED Qualifiers: Heart failure type: combined systolic and diastolic Heart failure chronicity: chronic Qualified Code(s): I50.42 - Chronic combined systolic ( congestive) and diastolic (congestive) heart failure (6) COPD (chronic obstructive pulmonary disease) Code(s): J44.9 - CHRONIC OBSTRUCTIVE PULMONARY DISEASE, UNSPECIFIED Qualifiers: (7) Pneumonia Code(s): J18.9 - PNEUMONIA, UNSPECIFIED ORGANISM
[2019-08-09] MEDS: NITROGLYCERIN 2% OINTMENT - 1GM PACKET TD SCH (17:14)
--- NOTE | 2019-08-09 18:37 | CON.NEURO ---
Consult Consult Specialty:: [place] Referred by:: Melvin Reason for Consultation:: Demntia - History of Present Illness History of Present Illness: 84-year-old right-handed man with multiple medical problem presented to the hospital week ago status post fall at the skilled nursing. Today his daughter Maggiealled me very concerned about her father's mental status she is a patient of mine and she mentioned to me previously that she would like for him to be evaluated by a neurologist because of increasing difficulty with memory. Patient lives at home with the family. Patient had a recent admission to the hospital for sepsis. According to the family he fell at the skilled nursing. On July 20 had a CAT scan of the head which showed mild evidence of atrophy with ischemic gliosis with no evidence of acute bleed Since admission to the hospital patient has been seen by multiple specialists. Patient was treated for pneumonia. Patient is poor historian he was seen on the telemetry with no apparent distress PMHx of COPD, CHF (reduced EF), CAD, Diabetes, HLD, HTN, Dementia. - History Source History Provided By: Family Member, Medical Record Limitations to Obtaining History: Clinical Condition - Past Medical History HOME CARE MANAGER RN: Yes: Other (decreased hearing) Cardio/Vascular: Yes: CAD, CHF, HTN, Hyperlipdemia, Other (Right external carotid artery stenosis, tachycardia PPM) Pulmonary: Yes: COPD, O2 Dependent, Other (pulmonary nodules h/o invasive Aspergillosis) Gastrointestinal: Yes: Diverticulitis (as per today's CT), Diverticulosis, GERD , Other (left inguinal hernia, duodinitis, colon polyps) Renal/: Yes: Renal Inusuff, BPH, Hematuria, Other (bladder dysfunction) Infectious Disease: Yes: Other (h/o invasive pulmonary aspergillosis) Musculoskeletal: Yes: Chronic low back pain, Osteoarthritis, Other (dupuytren contracture) ENT: Yes: Other (CRAIG) Endocrine: Yes: Diabetes Mellitus - Past Surgical History Past Surgical History: Yes: Cholecystectomy (open), Permanent Pacemaker - Alcohol/Substance Use Hx Alcohol Use: No History of Substance Use: reports: None - Smoking History Smoking history: Unknown if ever smoked Have you smoked in the past 12 months: No If you are a former smoker, when did you quit?: 20 YRS AGO - Social History Usual Living Arrangement: With Child ADL: Family Assistance Occupation: , 4 children History of Recent Travel: No Home Medications - Allergies Allergies/Adverse Reactions: Allergies Allergy/AdvReac Type Severity Reaction Status Date / Time Iodinated Contrast Media Allergy Rash Verified 07/20/19 14:41 [Iodinated Contrast Media - IV Dye] levofloxacin [From Levaquin] Allergy "RASH" Verified 07/20/19 14:41 - Home Medications Home Medications: Ambulatory Orders Aspirin Coated [Ecotrin -] 81 mg PO DAILY 12/19/18 Atorvastatin Ca [Lipitor] 20 mg PO HS 12/19/18 Carvedilol [Coreg -] 12.5 mg PO BID 12/19/18 Latanoprost/Pf [Latanoprost 0.005% Eye Drop] 7.5 ml OP DAILY 12/19/18 Pantoprazole Sodium 40 mg PO DAILY 12/19/18 Risperidone [Risperdal] 1 mg PO DAILY 12/19/18 Cholecalciferol (Vitamin D3) [Vitamin D3] 2,000 unit PO DAILY 07/21/19 Cyanocobalamin [Vitamin B12 -] 1,000 mcg PO DAILY 07/21/19 Albuterol 2.5/Ipratropium 0.5 [Duoneb -] 1 amp NEB Q6H PRN amp 07/29/19 Diphenhydramine HCl [Benadryl Capsule -] 25 mg PO Q6H PRN #0 capsule 07/29/19 Prednisone 10 mg PO DAILY 07/29/19 Torsemide [Demadex -] 20 mg PO ASDIR #0 tab 07/29/19 Family Medical History Family History: Unable to Obtain Review of Systems - Review of Systems Constitutional: reports: No Symptoms Eyes: reports: No Symptoms Neurological: reports: Confusion, Dizziness, Headache Physical Exam-Neuro Vital Signs: Vital Signs Temperature 99.4 F 08/09/19 09:53 Pulse Rate 82 08/09/19 13:51 Respiratory Rate 20 08/09/19 09:53 Blood Pressure 129/54 L 08/09/19 13:51 O2 Sat by Pulse Oximetry (%) 100 08/09/19 10:00 Labs: CBC, BMP 08/08/19 05:45 08/09/19 05:45 INR, PTT INR 1.21 (0.83-1.09) H 08/02/19 21:25 - Neuro Exam Level Of Consciousness: Yes: Oriented to Person, Oriented to Place Eyes: Yes: PERRLA Speech: WNL Dominant Hand: Right Mini Mental Exam: 21/30 Cranial Nerves II-XII Intact: Yes Gag: Present DTR's: 1+ Left Bicep, 1+ Right Bicep, 1+ Left Tricep, 1+ Right Tricep Response to light touch: Abnormal Response to pain prick: Abnormal Response to temperature: Abnormal Motor Strength: 3/5: Left Arm, Right Arm, Left Leg, Right Leg Imaging - Results Cat Scan: Image Reviewed Problem List - Problems (1) Dementia Assessment/Plan: 84-year-old man with multiple medical problem noted by the family over the past few weeks with increasing difficulty with memory Patient has been on risperidone for a while On today's exam there is no evidence of acute HOME CARE MANAGER RN pathology 1. Neurochecks 2. Blood work for dementia 3. EEG 4. Trial of Namenda 5 mg once daily 5. Continue risperidone the same Thank you very much for allowing me to be part of this patient's neurological care Case was discussed with his daughter Neetu Hemphlil Trisha Holman M.D. Code(s): F03.90 - UNSPECIFIED DEMENTIA WITHOUT BEHAVIORAL DISTURBANCE
[2019-08-09] MEDS: MEMANTINE HCL 5 MG TABLET (UD) PO SCH (21:54)
[2019-08-09] MEDS: ATORVASTATIN CA 20 MG TABLET (FP) PO SCH (21:54)
[2019-08-09] MEDS: LATANOPROST 0.005% OPHTH SOLN 2.5ML BOTTLE OU SCH (21:59)
[2019-08-10] MEDS: NITROGLYCERIN 2% OINTMENT - 1GM PACKET TD SCH ×2 (00:22→06:33)
[2019-08-10] MEDS: POTASSIUM CHLORIDE 10 MEQ in SODIUM CHLORIDE 0.45% 1,000 ML IVPB SCH ×3 (01:25→19:45)
[2019-08-10 07:00] LABS: HEMATOCRIT 22.4 % (35.4-49); HEMOGLOBIN 7.4 GM/dL (11.7-16.9); MCH 27.7 pg (25.7-33.7); MCHC 33.1 g/dl (32.0-35.9); MEAN CELL VOLUME 83.8 fl (80-96); MEAN PLT VOLUME 9.1 fl (7.5-11.1); PLATELET COUNT 137 K/MM3 (134-434); RBC 2.67 M/mm3 (4.00-5.60); RDW 17.4 % (11.9-15.9); WHITE BLOOD COUNT 7.4 K/mm3 (4.0-10.0)
[2019-08-10 07:34] LABS: ALBUMIN 1.8 g/dl (3.4-5.0); BILIRUBIN,TOTAL 0.7 mg/dL (0.2-1); BLOOD UREA NITROGEN 53.7 mg/dL (7-18); CREATININE 4.2 mg/dL (0.55-1.3); POTASSIUM 3.6 mmol/L (3.5-5.1); TOT PROT 5.6 g/dl (6.4-8.2)
--- NOTE | 2019-08-10 09:20 | PN ---
Progress Note, Physician History of Present Illness: More interactive, nonverbal, ate some breakfast. - Current Medication List Current Medications: Active Medications Acetaminophen (Tylenol Suppository -) 650 mg [place] Q6H PRN PRN Reason: FEVER Last Admin: 08/08/19 17:37 Dose: 650 mg Aspirin (Asa -) 81 mg PO DAILY [facility] Atorvastatin Calcium (Lipitor -) 20 mg PO HS [facility] Last Admin: 08/09/19 21:54 Dose: 20 mg Carvedilol (Coreg -) 12.5 mg PO BID [facility] Last Admin: 08/09/19 21:54 Dose: 12.5 mg Heparin Sodium (Porcine) (Heparin -) 5,000 unit SQ BID [facility] Last Admin: 08/09/19 21:54 Dose: 5,000 unit Hydralazine HCl (Apresoline -) 10 mg PO BID [facility] Last Admin: 08/09/19 21:54 Dose: 10 mg Potassium Chloride 10 meq/ (Sodium Chloride) 1,005 mls @ 55 mls/hr IVPB Q18H [facility] Last Admin: 08/10/19 01:25 Dose: Not Given Latanoprost (Xalatan 0.005% Eye Drops -) 1 drop OU HS [facility] Last Admin: 08/09/19 21:59 Dose: 1 drop Memantine (Namenda -) 5 mg PO BID [facility] Last Admin: 08/09/19 21:54 Dose: 5 mg Nitroglycerin (Nitro-Bid 2% Paste -) 0.5 inch TD Q6HPO [facility] Last Admin: 08/10/19 06:33 Dose: 0.5 inch Pantoprazole Sodium (Protonix -) 40 mg PO DAILY [facility] Last Admin: 08/09/19 09:26 Dose: Not Given - Objective Vital Signs: Vital Signs Temperature 98.2 F 08/10/19 06:00 Pulse Rate 78 08/10/19 06:00 Respiratory Rate 20 08/10/19 06:00 Blood Pressure 124/68 08/10/19 06:00 O2 Sat by Pulse Oximetry (%) 98 08/09/19 22:00 Constitutional: Yes: No Distress, Calm, Thin Neck: Yes: Supple Cardiovascular: Yes: Regular Rate and Rhythm Respiratory: Yes: Regular, Diminished, On Nasal O2 Gastrointestinal: Yes: Normal Bowel Sounds, Soft Edema: No Labs: CBC, BMP 08/10/19 05:35 08/10/19 05:35 INR, PTT INR 1.21 (0.83-1.09) H 08/02/19 21:25 - ....Imaging EKG: Report Reviewed (Tele: V-paced) Problem List - Problems (1) Acute on chronic combined systolic and diastolic congestive heart failure Code(s): I50.43 - ACUTE ON CHRONIC COMBINED SYSTOLIC AND DIASTOLIC HRT FAIL (2) Acute and chronic respiratory failure with hypoxia Code(s): J96.21 - ACUTE AND CHRONIC RESPIRATORY FAILURE WITH HYPOXIA (3) Acute on chronic renal failure Code(s): N17.9 - ACUTE KIDNEY FAILURE, UNSPECIFIED; N18.9 - CHRONIC KIDNEY DISEASE, UNSPECIFIED Qualifiers: Chronic kidney disease stage: stage 3 (moderate) (4) COPD (chronic obstructive pulmonary disease) Code(s): J44.9 - CHRONIC OBSTRUCTIVE PULMONARY DISEASE, UNSPECIFIED Qualifiers: (5) Cardiac pacemaker in situ Code(s): Z95.0 - PRESENCE OF CARDIAC PACEMAKER (6) Systolic dysfunction without heart failure Code(s): I51.9 - HEART DISEASE, UNSPECIFIED (7) ASHD (arteriosclerotic heart disease) Code(s): I25.10 - ATHSCL HEART DISEASE OF [place] CORONARY ARTERY W/O ANG PCTRS (8) Diabetes mellitus Code(s): E11.9 - TYPE 2 DIABETES MELLITUS WITHOUT COMPLICATIONS Qualifiers: Diabetes mellitus type: type 2 Diabetes mellitus fpc insulin use: without intermission coordinator use Diabetes mellitus complication status: with unspecified complications (9) Hyperlipidemia Code(s): E78.5 - HYPERLIPIDEMIA, UNSPECIFIED Qualifiers: Hyperlipidemia type: pure hypercholesterolemia Qualified Code(s): E78.00 - Pure hypercholesterolemia, unspecified (10) Hypertension Code(s): I10 - ESSENTIAL (PRIMARY) HYPERTENSION Qualifiers: Hypertension type: essential hypertension Qualified Code(s): I10 - Essential (primary) hypertension Assessment/Plan 10/26/14 Echo: Normal biventricular size and fxn without sig valve abnl 11/28/2016 Echo: Mod-severely decreased LV fxn with severe HK lateral and inferolateral, mold MR, TR RVSP 40-50 mmHg 11/12/2017 Echo: Mod-severely decreased LV fxn with severe HK inferior, mild TR mild effusion 06/02/2018 Echo: Mild-mod decreased LV fxn with apical dyskinesis, mild MR 07/21/2019 Echo: Mildly dilated LV with severely decreased LVEF, normal RV size and fxn, mild MR, tr TR, RV pacing 08/04/2019 Echo: Mildly dilated LV with severely decreased LVEF, normal RV size and fxn, tr TR RV pacemaker 1. Post Coag neg staph sepsis, Klebsiella PNA UTI 2. Chronic Hypoxic Respiratory Failure referable to 3. Chronic Systolic Heart Failure 4. 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 Advanced AV block post pacemaker implant interrogated 11/2016 7. HTN 8. Hypercholesterolemia 9. DHEERAJ 10. Acute on CKD 11. Anemia of chronic disease with h/o diverticular disease 12. Dementia PLAN: 1. Hold diuretics with monitor renal fxn and electrolytes 2. Continue Carvedilol 12.5 bid, Lipitor 20 qhs, ASA 81 qd, hydralazine 10 bid and resume Imdur 30 qd (on NTP) (BiDil) and holding losartan 100 qd pending renal fxn stabilization 3. Bronchodilators, abx course per C&S, wean FIO2 for saO2>90% 4. GI and DVT prophylaxis, consider PEG insertion, f/u brain MRI
--- NOTE | 2019-08-10 10:11 | PN ---
Progress Note, Physician History of Present Illness: no major events overnight Slightly more attentive Eating breakfast - Current Medication List Current Medications: Active Medications Acetaminophen (Tylenol Suppository -) 650 mg [place] Q6H PRN PRN Reason: FEVER Last Admin: 08/08/19 17:37 Dose: 650 mg Aspirin (Asa -) 81 mg PO DAILY [facility] Atorvastatin Calcium (Lipitor -) 20 mg PO HS [facility] Last Admin: 08/09/19 21:54 Dose: 20 mg Carvedilol (Coreg -) 12.5 mg PO BID [facility] Last Admin: 08/09/19 21:54 Dose: 12.5 mg Heparin Sodium (Porcine) (Heparin -) 5,000 unit SQ BID [facility] Last Admin: 08/09/19 21:54 Dose: 5,000 unit Hydralazine HCl (Apresoline -) 10 mg PO BID [facility] Last Admin: 08/09/19 21:54 Dose: 10 mg Potassium Chloride 10 meq/ (Sodium Chloride) 1,005 mls @ 55 mls/hr IVPB Q18H [facility] Last Admin: 08/10/19 01:25 Dose: Not Given Latanoprost (Xalatan 0.005% Eye Drops -) 1 drop OU HS [facility] Last Admin: 08/09/19 21:59 Dose: 1 drop Memantine (Namenda -) 5 mg PO BID [facility] Last Admin: 08/09/19 21:54 Dose: 5 mg Nitroglycerin (Nitro-Bid 2% Paste -) 0.5 inch TD Q6HPO [facility] Last Admin: 08/10/19 06:33 Dose: 0.5 inch Pantoprazole Sodium (Protonix -) 40 mg PO DAILY [facility] Last Admin: 08/09/19 09:26 Dose: Not Given - Objective Vital Signs: Vital Signs Temperature 98.2 F 08/10/19 06:00 Pulse Rate 78 08/10/19 06:00 Respiratory Rate 20 08/10/19 06:00 Blood Pressure 124/68 08/10/19 06:00 O2 Sat by Pulse Oximetry (%) 98 08/09/19 22:00 Constitutional: Yes: Well Nourished Eyes: Yes: WNL HENT: Yes: WNL Neurological: Yes: Alert, Oriented, Babinski positive ...Motor Strength: WNL Labs: CBC, BMP 08/10/19 05:35 08/10/19 05:35 INR, PTT INR 1.21 (0.83-1.09) H 08/02/19 21:25 Problem List - Problems (1) Dementia Assessment/Plan: await MRI of the brain with no contrast Namenda Code(s): F03.90 - UNSPECIFIED DEMENTIA WITHOUT BEHAVIORAL DISTURBANCE
[2019-08-10] MEDS: MEMANTINE HCL 5 MG TABLET (UD) PO SCH ×2 (10:57→22:08)
[2019-08-10] MEDS: PANTOPRAZOLE 40 MG TABLET (FP) PO SCH (10:58)
[2019-08-10] MEDS: CARVEDILOL 12.5 MG TABLET (FP) PO SCH ×2 (10:58→22:08)
[2019-08-10] MEDS: hydrALAZINE HCL 10 MG TABLET PO SCH ×2 (10:58→22:08)
[2019-08-10] MEDS: ASPIRIN 81 MG CHEWABLE TABLETS PO SCH (10:58)
[2019-08-10] MEDS: HEPARIN NA (PORCINE) 5,000 UNITS/ML 1ML VIAL SQ SCH ×2 (10:58→22:08)
--- NOTE | 2019-08-10 11:36 | PN ---
Progress Note (short form) - Note Progress Note: awake now No distress Risperidol dc poor intake today Vital Signs - 24 hr 08/09/19 08/09/19 08/09/19 13:51 18:00 21:00 Temperature 99.4 F Pulse Rate 82 82 Respiratory 20 20 Rate Blood Pressure 129/54 L 122/57 L O2 Sat by Pulse 98 Oximetry (%) 08/09/19 08/09/19 08/10/19 21:04 22:00 02:00 Temperature 98.4 F 99.3 F Pulse Rate 80 78 Respiratory 20 20 Rate Blood Pressure 116/62 125/57 L O2 Sat by Pulse 98 98 Oximetry (%) 08/10/19 06:00 Temperature 98.2 F Pulse Rate 78 Respiratory 20 Rate Blood Pressure 124/68 O2 Sat by Pulse Oximetry (%) Current Medications Generic Name Dose Route Start Last Admin Trade Name Freq PRN Reason Stop Dose Admin Acetaminophen 650 mg 08/05/19 17:07 08/08/19 17:37 Tylenol Suppository - [place] 650 mg Q6H PRN Administration FEVER Aspirin 81 mg 08/10/19 10:00 08/10/19 10:58 Asa - PO 81 mg DAILY DINESH Administration Atorvastatin Calcium 20 mg 08/03/19 22:00 08/09/19 21:54 Lipitor - PO 20 mg HS DINESH Administration Carvedilol 12.5 mg 08/03/19 10:00 08/10/19 10:58 Coreg - PO 12.5 mg BID DINESH Administration Heparin Sodium (Porcine) 5,000 unit 08/04/19 22:00 08/10/19 10:58 Heparin - SQ 5,000 unit BID DINESH Administration Hydralazine HCl 10 mg 08/06/19 12:15 08/10/19 10:58 Apresoline - PO 10 mg BID DINESH Administration Potassium Chloride 10 meq/ 1,005 mls @ 55 mls/hr 08/08/19 13:40 08/10/19 01: 25 Sodium Chloride IVPB Not Given Q18H DINESH Isosorbide Mononitrate 30 mg 08/10/19 11:00 Imdur - PO DAILY DINESH Latanoprost 1 drop 08/03/19 22:00 08/09/19 21:59 Xalatan 0.005% Eye Drops - OU 1 drop HS DINESH Administration Memantine 5 mg 08/09/19 22:00 08/10/19 10:57 Namenda - PO 5 mg BID DINESH Administration Pantoprazole Sodium 40 mg 08/03/19 10:00 08/10/19 10:58 Protonix - PO 40 mg DAILY DINESH Administration Laboratory Results - last 24 hr 08/09/19 08/10/19 08/10/19 05:45 05:35 05:35 WBC 7.4 RBC 2.67 L Hgb 7.4 L Hct 22.4 L MCV 83.8 MCH 27.7 MCHC 33.1 RDW 17.4 H Plt Count 137 D MPV 9.1 ESR Sodium 140 138 Potassium 3.6 3.6 Chloride 106 105 Carbon Dioxide 22 23 Anion Gap 13 10 BUN 67.2 H 53.7 H Creatinine 4.5 H 4.2 H Est GFR (CKD-EPI)AfAm 12.85 13.97 Est GFR (CKD-EPI)NonAf 11.09 12.05 Random Glucose 72 L 90 Calcium 8.3 L 8.0 L Total Bilirubin 0.7 AST 17 ALT 15 Alkaline Phosphatase 49 C-Reactive Protein 8.8 H Total Protein 5.6 L Albumin 1.8 L Vitamin B12 1275 H RPR Titer 08/10/19 08/10/19 05:35 05:35 WBC RBC Hgb Hct MCV MCH MCHC RDW Plt Count MPV ESR 111 H Sodium Potassium Chloride Carbon Dioxide Anion Gap BUN Creatinine Est GFR (CKD-EPI)AfAm Est GFR (CKD-EPI)NonAf Random Glucose Calcium Total Bilirubin AST ALT Alkaline Phosphatase C-Reactive Protein Total Protein Albumin Vitamin B12 RPR Titer Nonreactive Microbiology 08/05/19 05:38 Blood Culture - Preliminary Blood - Peripheral Venous NO GROWTH OBTAINED AFTER 96 HOURS, INCUBATION TO CONTINUE FOR 1 DAYS. 08/05/19 05:14 Blood Culture - Preliminary Blood - Peripheral Venous NO GROWTH OBTAINED AFTER 96 HOURS, INCUBATION TO CONTINUE FOR 1 DAYS. S1 S2 RRR Lungs decreased breath sounds Abd- soft, obese, NT No edema PLAN Iv antibiotics dc monitor renal function -->better slight Neurology eval noted -->going for EEG and MRI brain monitor renal function-->no dialysis now Problem List - Problems (1) Acute on chronic combined systolic and diastolic congestive heart failure Code(s): I50.43 - ACUTE ON CHRONIC COMBINED SYSTOLIC AND DIASTOLIC HRT FAIL (2) Anemia Code(s): D64.9 - ANEMIA, UNSPECIFIED Qualifiers: Anemia type: unspecified type Qualified Code(s): D64.9 - Anemia, unspecified (3) Acute and chronic respiratory failure with hypoxia Code(s): J96.21 - ACUTE AND CHRONIC RESPIRATORY FAILURE WITH HYPOXIA (4) Acute on chronic renal failure Code(s): N17.9 - ACUTE KIDNEY FAILURE, UNSPECIFIED; N18.9 - CHRONIC KIDNEY DISEASE, UNSPECIFIED Qualifiers: Chronic kidney disease stage: stage 3 (moderate) (5) CHF (congestive heart failure) Code(s): I50.9 - HEART FAILURE, UNSPECIFIED Qualifiers: Heart failure type: combined systolic and diastolic Heart failure chronicity: chronic Qualified Code(s): I50.42 - Chronic combined systolic ( congestive) and diastolic (congestive) heart failure (6) COPD (chronic obstructive pulmonary disease) Code(s): J44.9 - CHRONIC OBSTRUCTIVE PULMONARY DISEASE, UNSPECIFIED Qualifiers: (7) Pneumonia Code(s): J18.9 - PNEUMONIA, UNSPECIFIED ORGANISM
--- NOTE | 2019-08-10 12:45 | PN ---
Progress Note, Physician History of Present Illness: continues to be confused for work up by neuro - Current Medication List Current Medications: Active Medications Acetaminophen (Tylenol Suppository -) 650 mg [place] Q6H PRN PRN Reason: FEVER Last Admin: 08/08/19 17:37 Dose: 650 mg Aspirin (Asa -) 81 mg PO DAILY [facility] Last Admin: 08/10/19 10:58 Dose: 81 mg Atorvastatin Calcium (Lipitor -) 20 mg PO HS [facility] Last Admin: 08/09/19 21:54 Dose: 20 mg Carvedilol (Coreg -) 12.5 mg PO BID [facility] Last Admin: 08/10/19 10:58 Dose: 12.5 mg Heparin Sodium (Porcine) (Heparin -) 5,000 unit SQ BID [facility] Last Admin: 08/10/19 10:58 Dose: 5,000 unit Hydralazine HCl (Apresoline -) 10 mg PO BID [facility] Last Admin: 08/10/19 10:58 Dose: 10 mg Potassium Chloride 10 meq/ (Sodium Chloride) 1,005 mls @ 55 mls/hr IVPB Q18H [facility] Last Admin: 08/10/19 01:25 Dose: Not Given Isosorbide Mononitrate (Imdur -) 30 mg PO DAILY [facility] Latanoprost (Xalatan 0.005% Eye Drops -) 1 drop OU HS [facility] Last Admin: 08/09/19 21:59 Dose: 1 drop Memantine (Namenda -) 5 mg PO BID [facility] Last Admin: 08/10/19 10:57 Dose: 5 mg Pantoprazole Sodium (Protonix -) 40 mg PO DAILY [facility] Last Admin: 08/10/19 10:58 Dose: 40 mg - Objective Vital Signs: Vital Signs Temperature 98.2 F 08/10/19 06:00 Pulse Rate 78 08/10/19 06:00 Respiratory Rate 20 08/10/19 06:00 Blood Pressure 124/68 08/10/19 06:00 O2 Sat by Pulse Oximetry (%) 98 08/09/19 22:00 Constitutional: Yes: No Distress, Calm Cardiovascular: Yes: S1, S2 Respiratory: Yes: Regular, CTA Bilaterally Musculoskeletal: Yes: WNL Extremities: Yes: WNL Neurological: Yes: Other Psychiatric: Yes: Other Labs: CBC, BMP 08/10/19 05:35 11/20/19 05:35 INR, PTT INR 1.21 (0.83-1.09) H 08/02/19 21:25 Assessment/Plan Problem List - Problems (1) Acute on chronic combined systolic and diastolic congestive heart failure Code(s): I50.43 - ACUTE ON CHRONIC COMBINED SYSTOLIC AND DIASTOLIC HRT FAIL (2) Anemia Code(s): D64.9 - ANEMIA, UNSPECIFIED Qualifiers: Anemia type: unspecified type Qualified Code(s): D64.9 - Anemia, unspecified (3) Acute and chronic respiratory failure with hypoxia Code(s): J96.21 - ACUTE AND CHRONIC RESPIRATORY FAILURE WITH HYPOXIA (4) Acute on chronic renal failure Code(s): N17.9 - ACUTE KIDNEY FAILURE, UNSPECIFIED; N18.9 - CHRONIC KIDNEY DISEASE, UNSPECIFIED Qualifiers: Chronic kidney disease stage: stage 3 (moderate) (5) CHF (congestive heart failure) Code(s): I50.9 - HEART FAILURE, UNSPECIFIED Qualifiers: Heart failure type: combined systolic and diastolic Heart failure chronicity: chronic Qualified Code(s): I50.42 - Chronic combined systolic ( congestive) and diastolic (congestive) heart failure (6) COPD (chronic obstructive pulmonary disease) Code(s): J44.9 - CHRONIC OBSTRUCTIVE PULMONARY DISEASE, UNSPECIFIED Qualifiers: (7) Pneumonia Code(s): J18.9 - PNEUMONIA, UNSPECIFIED ORGANISM plan continue current mgmt peg tube probably needed nutrition rest as per the team monitor await for all results
--- NOTE | 2019-08-10 13:23 | PN ---
Progress Note, Physician History of Present Illness: Pt seen and examined at bedside. He remains confused. - Current Medication List Current Medications: Active Medications Acetaminophen (Tylenol Suppository -) 650 mg [place] Q6H PRN PRN Reason: FEVER Last Admin: 08/08/19 17:37 Dose: 650 mg Aspirin (Asa -) 81 mg PO DAILY [facility] Last Admin: 08/10/19 10:58 Dose: 81 mg Atorvastatin Calcium (Lipitor -) 20 mg PO HS [facility] Last Admin: 08/09/19 21:54 Dose: 20 mg Carvedilol (Coreg -) 12.5 mg PO BID [facility] Last Admin: 08/10/19 10:58 Dose: 12.5 mg Heparin Sodium (Porcine) (Heparin -) 5,000 unit SQ BID [facility] Last Admin: 08/10/19 10:58 Dose: 5,000 unit Hydralazine HCl (Apresoline -) 10 mg PO BID [facility] Last Admin: 08/10/19 10:58 Dose: 10 mg Potassium Chloride 10 meq/ (Sodium Chloride) 1,005 mls @ 55 mls/hr IVPB Q18H [facility] Last Admin: 08/10/19 01:25 Dose: Not Given Isosorbide Mononitrate (Imdur -) 30 mg PO DAILY [facility] Latanoprost (Xalatan 0.005% Eye Drops -) 1 drop OU HS [facility] Last Admin: 08/09/19 21:59 Dose: 1 drop Memantine (Namenda -) 5 mg PO BID [facility] Last Admin: 08/10/19 10:57 Dose: 5 mg Pantoprazole Sodium (Protonix -) 40 mg PO DAILY [facility] Last Admin: 08/10/19 10:58 Dose: 40 mg - Objective Vital Signs: Vital Signs Temperature 98.2 F 08/10/19 06:00 Pulse Rate 78 08/10/19 06:00 Respiratory Rate 20 08/10/19 06:00 Blood Pressure 124/68 08/10/19 06:00 O2 Sat by Pulse Oximetry (%) 98 08/09/19 22:00 Constitutional: Yes: Calm Eyes: Yes: Conjunctiva Clear HENT: Yes: Atraumatic Neck: Yes: Supple Cardiovascular: Yes: S1, S2 Respiratory: Yes: On Nasal O2 Gastrointestinal: Yes: Soft Genitourinary: Yes: Incontinence Musculoskeletal: Yes: Muscle Weakness Edema: No Neurological: Yes: Confusion Labs: CBC, BMP 08/10/19 05:35 08/10/19 05:35 INR, PTT INR 1.21 (0.83-1.09) H 08/02/19 21:25 Problem List - Problems (1) CKD (chronic kidney disease) Code(s): N18.9 - CHRONIC KIDNEY DISEASE, UNSPECIFIED Qualifiers: Chronic kidney disease stage: unspecified stage Qualified Code(s): N18.9 - Chronic kidney disease, unspecified (2) Acute kidney injury Code(s): N17.9 - ACUTE KIDNEY FAILURE, UNSPECIFIED Assessment/Plan Current Medications Generic Name Dose Route Start Last Admin Trade Name Freq PRN Reason Stop Dose Admin Acetaminophen 650 mg 08/05/19 17:07 08/08/19 17:37 Tylenol Suppository - [place] 650 mg Q6H PRN Administration FEVER Aspirin 81 mg 08/10/19 10:00 08/10/19 10:58 Asa - PO 81 mg DAILY DINESH Administration Atorvastatin Calcium 20 mg 08/03/19 22:00 08/09/19 21:54 Lipitor - PO 20 mg HS DINESH Administration Carvedilol 12.5 mg 08/03/19 10:00 08/10/19 10:58 Coreg - PO 12.5 mg BID DINESH Administration Heparin Sodium (Porcine) 5,000 unit 08/04/19 22:00 08/10/19 10:58 Heparin - SQ 5,000 unit BID DINESH Administration Hydralazine HCl 10 mg 08/06/19 12:15 08/10/19 10:58 Apresoline - PO 10 mg BID DINESH Administration Potassium Chloride 10 meq/ 1,005 mls @ 55 mls/hr 08/08/19 13:40 08/10/19 01: 25 Sodium Chloride IVPB Not Given Q18H DINESH Isosorbide Mononitrate 30 mg 08/10/19 11:00 Imdur - PO DAILY DINESH Latanoprost 1 drop 08/03/19 22:00 08/09/19 21:59 Xalatan 0.005% Eye Drops - OU 1 drop HS DINESH Administration Memantine 5 mg 08/09/19 22:00 08/10/19 10:57 Namenda - PO 5 mg BID DINESH Administration Pantoprazole Sodium 40 mg 08/03/19 10:00 08/10/19 10:58 Protonix - PO 40 mg DAILY DINESH Administration Impression 1. LAURA 2. lethargy 3. recent pna and sepsis 4. ckd 5. copd 6. dm 7. hx htn 8. 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
[2019-08-10] MEDS: ISOSORBIDE MONONITRATE 30 MG TAB.SR.24H (FP) PO SCH (14:22)
--- NOTE | 2019-08-10 17:59 | PN ---
Progress Note (short form) - Note Progress Note: Pt seen/examined at bedside, alert/awake though minimally verbal, ate 25-50% of meals per staff with assistance. On examination: Pt sitting up, awake/alert, does not answer questions or follow commands Abd soft, nt, nd +faint RUQ scar Labs reviewed. Assessment/plan: 84yo male presenting after a fall with altered mental status asked to evaluate for PEG. Appears to be more alert, pending further neuro workup. Off risperidone. -Await MRI and EEG per neuro -Dysphagia pureed diet as tolerated per LOAN ADVISER recommendations for now -Recommend LOAN ADVISER re-evaluation and caloric count -Check iron studies/ferritin -Goals of care discussion -Pending above and pt reassessment will determine need for PEG
[2019-08-10] MEDS: ATORVASTATIN CA 20 MG TABLET (FP) PO SCH (22:08)
[2019-08-10] MEDS: LATANOPROST 0.005% OPHTH SOLN 2.5ML BOTTLE OU SCH (22:08)
[2019-08-11 08:30] LABS: IRON SERUM 21 ug/dL (50-175); TOTAL IRON BINDING CAPACITY 152 ug/dL (250-450)
[2019-08-11 08:43] LABS: ALBUMIN 1.7 g/dl (3.4-5.0); BILIRUBIN,TOTAL 0.5 mg/dL (0.2-1); CALCIUM 7.7 mg/dL (8.5-10.1); CREATININE 3.8 mg/dL (0.55-1.3); POTASSIUM 3.6 mmol/L (3.5-5.1); TOT PROT 5.3 g/dl (6.4-8.2)
--- NOTE | 2019-08-11 09:53 | PN ---
Progress Note, Physician History of Present Illness: Lethargic yet arousable. - Current Medication List Current Medications: Active Medications Acetaminophen (Tylenol Suppository -) 650 mg [place] Q6H PRN PRN Reason: FEVER Last Admin: 08/08/19 17:37 Dose: 650 mg Aspirin (Asa -) 81 mg PO DAILY [facility] Last Admin: 08/10/19 10:58 Dose: 81 mg Atorvastatin Calcium (Lipitor -) 20 mg PO HS [facility] Last Admin: 08/10/19 22:08 Dose: 20 mg Carvedilol (Coreg -) 12.5 mg PO BID [facility] Last Admin: 08/10/19 22:08 Dose: 12.5 mg Heparin Sodium (Porcine) (Heparin -) 5,000 unit SQ BID [facility] Last Admin: 08/10/19 22:08 Dose: 5,000 unit Hydralazine HCl (Apresoline -) 10 mg PO BID [facility] Last Admin: 08/10/19 22:08 Dose: 10 mg Potassium Chloride 10 meq/ (Sodium Chloride) 1,005 mls @ 55 mls/hr IVPB Q18H [facility] Last Admin: 08/10/19 19:45 Dose: Not Given Isosorbide Mononitrate (Imdur -) 30 mg PO DAILY [facility] Last Admin: 08/10/19 14:22 Dose: 30 mg Latanoprost (Xalatan 0.005% Eye Drops -) 1 drop OU HS [facility] Last Admin: 08/10/19 22:08 Dose: 1 drop Memantine (Namenda -) 5 mg PO BID [facility] Last Admin: 08/10/19 22:08 Dose: 5 mg Pantoprazole Sodium (Protonix -) 40 mg PO DAILY [facility] Last Admin: 08/10/19 10:58 Dose: 40 mg - Objective Vital Signs: Vital Signs Temperature 98.4 F 08/11/19 06:00 Pulse Rate 74 08/11/19 06:00 Respiratory Rate 20 08/11/19 06:00 Blood Pressure 122/76 08/11/19 06:00 O2 Sat by Pulse Oximetry (%) 99 08/10/19 22:00 Constitutional: Yes: No Distress, Calm, Thin Neck: Yes: Supple Cardiovascular: Yes: Regular Rate and Rhythm Respiratory: Yes: Regular, Diminished, On Nasal O2 Gastrointestinal: Yes: Soft, Hypoactive Bowel Sounds Genitourinary: Yes: Anthony Present Edema: No Labs: CBC, BMP 08/10/19 05:35 08/11/19 06:30 INR, PTT INR 1.21 (0.83-1.09) H 08/02/19 21:25 - ....Imaging EKG: Report Reviewed (Tele: V-paced) Problem List - Problems (1) Acute on chronic combined systolic and diastolic congestive heart failure Code(s): I50.43 - ACUTE ON CHRONIC COMBINED SYSTOLIC AND DIASTOLIC HRT FAIL (2) Acute and chronic respiratory failure with hypoxia Code(s): J96.21 - ACUTE AND CHRONIC RESPIRATORY FAILURE WITH HYPOXIA (3) Acute on chronic renal failure Code(s): N17.9 - ACUTE KIDNEY FAILURE, UNSPECIFIED; N18.9 - CHRONIC KIDNEY DISEASE, UNSPECIFIED Qualifiers: Chronic kidney disease stage: stage 3 (moderate) (4) COPD (chronic obstructive pulmonary disease) Code(s): J44.9 - CHRONIC OBSTRUCTIVE PULMONARY DISEASE, UNSPECIFIED Qualifiers: (5) Cardiac pacemaker in situ Code(s): Z95.0 - PRESENCE OF CARDIAC PACEMAKER (6) Systolic dysfunction without heart failure Code(s): I51.9 - HEART DISEASE, UNSPECIFIED (7) ASHD (arteriosclerotic heart disease) Code(s): I25.10 - ATHSCL HEART DISEASE OF [place] CORONARY ARTERY W/O ANG PCTRS (8) Diabetes mellitus Code(s): E11.9 - TYPE 2 DIABETES MELLITUS WITHOUT COMPLICATIONS Qualifiers: Diabetes mellitus type: type 2 Diabetes mellitus moth exterminator insulin use: without fci use Diabetes mellitus complication status: with unspecified complications (9) Hyperlipidemia Code(s): E78.5 - HYPERLIPIDEMIA, UNSPECIFIED Qualifiers: Hyperlipidemia type: pure hypercholesterolemia Qualified Code(s): E78.00 - Pure hypercholesterolemia, unspecified (10) Hypertension Code(s): I10 - ESSENTIAL (PRIMARY) HYPERTENSION Qualifiers: Hypertension type: essential hypertension Qualified Code(s): I10 - Essential (primary) hypertension Assessment/Plan 10/26/14 Echo: Normal biventricular size and fxn without sig valve abnl 11/28/2016 Echo: Mod-severely decreased LV fxn with severe HK lateral and inferolateral, mold MR, TR RVSP 40-50 mmHg 11/12/2017 Echo: Mod-severely decreased LV fxn with severe HK inferior, mild TR mild effusion 06/02/2018 Echo: Mild-mod decreased LV fxn with apical dyskinesis, mild MR 07/21/2019 Echo: Mildly dilated LV with severely decreased LVEF, normal RV size and fxn, mild MR, tr TR, RV pacing 08/04/2019 Echo: Mildly dilated LV with severely decreased LVEF, normal RV size and fxn, tr TR RV pacemaker 1. Post Coag neg staph sepsis, Klebsiella PNA UTI 2. Chronic Hypoxic Respiratory Failure referable to 3. Chronic Systolic Heart Failure 4. 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 Advanced AV block post pacemaker implant interrogated 11/2016 7. HTN 8. Hypercholesterolemia 9. DHEERAJ 10. Acute on CKD 11. Anemia of chronic disease with h/o diverticular disease 12. Dementia PLAN: 1. Hold diuretics with monitor renal fxn and electrolytes 2. Continue Carvedilol 12.5 bid, Lipitor 20 qhs, ASA 81 qd, hydralazine 10 bid and Imdur 30 qd (BiDil) and holding losartan 100 qd pending renal fxn stabilization 3. Bronchodilators, completed abx course per C&S, wean FIO2 for saO2>90% 4. GI and DVT prophylaxis, dysphagia diet with calorie count, consider PEG insertion, EEG is normal, f/u brain MRI
--- NOTE | 2019-08-11 10:54 | PN ---
Progress Note (short form) - Note Progress Note: awake now No distress Risperidol dc pt ate breakfast today -- Vital Signs - 24 hr 08/10/19 08/10/19 08/10/19 14:00 21:00 22:00 Temperature 98.8 F 98.2 F Pulse Rate 82 78 Respiratory 20 Rate Blood Pressure 143/75 118/71 O2 Sat by Pulse 99 99 Oximetry (%) 08/11/19 08/11/19 08/11/19 02:00 06:00 09:00 Temperature 100 F H 98.4 F 98.3 F Pulse Rate 84 74 76 Respiratory 20 20 20 Rate Blood Pressure 130/68 122/76 127/69 O2 Sat by Pulse Oximetry (%) Current Medications Generic Name Dose Route Start Last Admin Trade Name Freq PRN Reason Stop Dose Admin Acetaminophen 650 mg 08/05/19 17:07 08/08/19 17:37 Tylenol Suppository - [place] 650 mg Q6H PRN Administration FEVER Aspirin 81 mg 08/10/19 10:00 08/10/19 10:58 Asa - PO 81 mg DAILY DINESH Administration Atorvastatin Calcium 20 mg 08/03/19 22:00 08/10/19 22:08 Lipitor - PO 20 mg HS DINESH Administration Carvedilol 12.5 mg 08/03/19 10:00 08/10/19 22:08 Coreg - PO 12.5 mg BID DINESH Administration Heparin Sodium (Porcine) 5,000 unit 08/04/19 22:00 08/10/19 22:08 Heparin - SQ 5,000 unit BID DINESH Administration Hydralazine HCl 10 mg 08/06/19 12:15 08/10/19 22:08 Apresoline - PO 10 mg BID DINESH Administration Potassium Chloride 10 meq/ 1,005 mls @ 55 mls/hr 08/08/19 13:40 08/10/19 19: 45 Sodium Chloride IVPB Not Given Q18H DINESH Isosorbide Mononitrate 30 mg 08/10/19 11:00 08/10/19 14:22 Imdur - PO 30 mg DAILY DINESH Administration Latanoprost 1 drop 08/03/19 22:00 08/10/19 22:08 Xalatan 0.005% Eye Drops - OU 1 drop HS DINESH Administration Memantine 5 mg 08/09/19 22:00 08/10/19 22:08 Namenda - PO 5 mg BID DINESH Administration Pantoprazole Sodium 40 mg 08/03/19 10:00 08/10/19 10:58 Protonix - PO 40 mg DAILY DINESH Administration Laboratory Results - last 24 hr 08/11/19 08/11/19 08/11/19 06:30 06:30 06:30 Sodium 136 Potassium 3.6 Chloride 104 Carbon Dioxide 23 Anion Gap 9 BUN 49.0 H Creatinine 3.8 H Est GFR (CKD-EPI)AfAm 15.77 Est GFR (CKD-EPI)NonAf 13.60 Random Glucose 86 Calcium 7.7 L Iron 21 L TIBC 152 L Iron Saturation 13 L Unsaturated IBC 131 L Ferritin 178.9 Total Bilirubin 0.5 AST 16 ALT 12 L Alkaline Phosphatase 49 Total Protein 5.3 L Albumin 1.7 L Microbiology 08/05/19 05:38 Blood Culture - Preliminary Blood - Peripheral Venous NO GROWTH OBTAINED AFTER 96 HOURS, INCUBATION TO CONTINUE FOR 1 DAYS. 08/05/19 05:14 Blood Culture - Preliminary Blood - Peripheral Venous NO GROWTH OBTAINED AFTER 96 HOURS, INCUBATION TO CONTINUE FOR 1 DAYS. S1 S2 RRR Lungs decreased breath sounds Abd- soft, obese, NT No edema PLAN Iv antibiotics dc monitor renal function -->better slight Neurology eval noted --> EEG and MRI brain monitor renal function-->no dialysis now iron studies noted start Ferrous sulphate Problem List - Problems (1) Acute on chronic combined systolic and diastolic congestive heart failure Code(s): I50.43 - ACUTE ON CHRONIC COMBINED SYSTOLIC AND DIASTOLIC HRT FAIL (2) Anemia Code(s): D64.9 - ANEMIA, UNSPECIFIED Qualifiers: Anemia type: unspecified type Qualified Code(s): D64.9 - Anemia, unspecified (3) Acute and chronic respiratory failure with hypoxia Code(s): J96.21 - ACUTE AND CHRONIC RESPIRATORY FAILURE WITH HYPOXIA (4) Acute on chronic renal failure Code(s): N17.9 - ACUTE KIDNEY FAILURE, UNSPECIFIED; N18.9 - CHRONIC KIDNEY DISEASE, UNSPECIFIED Qualifiers: Chronic kidney disease stage: stage 3 (moderate) (5) CHF (congestive heart failure) Code(s): I50.9 - HEART FAILURE, UNSPECIFIED Qualifiers: Heart failure type: combined systolic and diastolic Heart failure chronicity: chronic Qualified Code(s): I50.42 - Chronic combined systolic ( congestive) and diastolic (congestive) heart failure (6) COPD (chronic obstructive pulmonary disease) Code(s): J44.9 - CHRONIC OBSTRUCTIVE PULMONARY DISEASE, UNSPECIFIED Qualifiers: (7) Pneumonia Code(s): J18.9 - PNEUMONIA, UNSPECIFIED ORGANISM
[2019-08-11] MEDS: MEMANTINE HCL 5 MG TABLET (UD) PO SCH ×3 (11:27→22:19)
[2019-08-11] MEDS: PANTOPRAZOLE 40 MG TABLET (FP) PO SCH (11:27)
[2019-08-11] MEDS: CARVEDILOL 12.5 MG TABLET (FP) PO SCH ×3 (11:27→22:19)
[2019-08-11] MEDS: ISOSORBIDE MONONITRATE 30 MG TAB.SR.24H (FP) PO SCH (11:28)
[2019-08-11] MEDS: ASPIRIN 81 MG CHEWABLE TABLETS PO SCH (11:28)
[2019-08-11] MEDS: hydrALAZINE HCL 10 MG TABLET PO SCH ×3 (11:28→22:18)
[2019-08-11] MEDS: ASCORBIC ACID 500 MG TABLET (FP) PO SCH ×3 (11:28→22:17)
[2019-08-11] MEDS: HEPARIN NA (PORCINE) 5,000 UNITS/ML 1ML VIAL SQ SCH ×3 (11:28→22:19)
--- NOTE | 2019-08-11 12:09 | PN ---
Progress Note, Physician History of Present Illness: Pt seen and examined at bedside. He appears comfortable. he is tolerating fluids. - Current Medication List Current Medications: Active Medications Acetaminophen (Tylenol Suppository -) 650 mg [place] Q6H PRN PRN Reason: FEVER Last Admin: 08/08/19 17:37 Dose: 650 mg Ascorbic Acid (Vitamin C -) 500 mg PO BID [facility] Last Admin: 08/11/19 11:28 Dose: Not Given Aspirin (Asa -) 81 mg PO DAILY [facility] Last Admin: 08/11/19 11:28 Dose: 81 mg Atorvastatin Calcium (Lipitor -) 20 mg PO HS [facility] Last Admin: 08/10/19 22:08 Dose: 20 mg Carvedilol (Coreg -) 12.5 mg PO BID [facility] Last Admin: 08/11/19 11:27 Dose: 12.5 mg Ferrous Sulfate (Feosol -) 325 mg PO BIDWM [facility] Heparin Sodium (Porcine) (Heparin -) 5,000 unit SQ BID [facility] Last Admin: 08/11/19 11:28 Dose: 5,000 unit Hydralazine HCl (Apresoline -) 10 mg PO BID [facility] Last Admin: 08/11/19 11:28 Dose: 10 mg Potassium Chloride 10 meq/ (Sodium Chloride) 1,005 mls @ 55 mls/hr IVPB Q18H [facility] Last Admin: 08/10/19 19:45 Dose: Not Given Isosorbide Mononitrate (Imdur -) 30 mg PO DAILY [facility] Last Admin: 08/11/19 11:28 Dose: 30 mg Latanoprost (Xalatan 0.005% Eye Drops -) 1 drop OU HS [facility] Last Admin: 08/10/19 22:08 Dose: 1 drop Memantine (Namenda -) 5 mg PO BID [facility] Last Admin: 08/11/19 11:27 Dose: 5 mg Pantoprazole Sodium (Protonix -) 40 mg PO DAILY [facility] Last Admin: 08/11/19 11:27 Dose: 40 mg - Objective Vital Signs: Vital Signs Temperature 98.3 F 08/11/19 09:00 Pulse Rate 76 08/11/19 09:00 Respiratory Rate 20 08/11/19 09:00 Blood Pressure 127/69 08/11/19 09:00 O2 Sat by Pulse Oximetry (%) 99 08/10/19 22:00 Constitutional: Yes: Calm Eyes: Yes: Conjunctiva Clear HENT: Yes: Atraumatic Cardiovascular: Yes: S1, S2 Respiratory: Yes: CTA Bilaterally Gastrointestinal: Yes: Soft Genitourinary: Yes: Anthony Present Musculoskeletal: Yes: Muscle Weakness Edema: No Neurological: Yes: Confusion Labs: CBC, BMP 08/10/19 05:35 08/11/19 06:30 INR, PTT INR 1.21 (0.83-1.09) H 08/02/19 21:25 Problem List - Problems (1) CKD (chronic kidney disease) Code(s): N18.9 - CHRONIC KIDNEY DISEASE, UNSPECIFIED Qualifiers: Chronic kidney disease stage: unspecified stage Qualified Code(s): N18.9 - Chronic kidney disease, unspecified (2) Acute kidney injury Code(s): N17.9 - ACUTE KIDNEY FAILURE, UNSPECIFIED Assessment/Plan Current Medications Generic Name Dose Route Start Last Admin Trade Name Freq PRN Reason Stop Dose Admin Acetaminophen 650 mg 08/05/19 17:07 08/08/19 17:37 Tylenol Suppository - ME 650 mg Q6H PRN Administration FEVER Aspirin 81 mg 08/10/19 10:00 08/10/19 10:58 Asa - PO 81 mg DAILY DINESH Administration Atorvastatin Calcium 20 mg 08/03/19 22:00 08/09/19 21:54 Lipitor - PO 20 mg HS DINESH Administration Carvedilol 12.5 mg 08/03/19 10:00 08/10/19 10:58 Coreg - PO 12.5 mg BID DINESH Administration Heparin Sodium (Porcine) 5,000 unit 08/04/19 22:00 08/10/19 10:58 Heparin - SQ 5,000 unit BID DINESH Administration Hydralazine HCl 10 mg 08/06/19 12:15 08/10/19 10:58 Apresoline - PO 10 mg BID DINESH Administration Potassium Chloride 10 meq/ 1,005 mls @ 55 mls/hr 08/08/19 13:40 08/10/19 01: 25 Sodium Chloride IVPB Not Given Q18H DINESH Isosorbide Mononitrate 30 mg 08/10/19 11:00 Imdur - PO DAILY DINESH Latanoprost 1 drop 08/03/19 22:00 08/09/19 21:59 Xalatan 0.005% Eye Drops - OU 1 drop HS DIENSH Administration Memantine 5 mg 08/09/19 22:00 08/10/19 10:57 Namenda - PO 5 mg BID DINESH Administration Pantoprazole Sodium 40 mg 08/03/19 10:00 08/10/19 10:58 Protonix - PO 40 mg DAILY DINESH Administration Impression 1. LAURA 2. lethargy 3. recent pna and sepsis 4. ckd 5. copd 6. dm 7. hx htn 8. dementia Plan - renal function is improving - cont fluids - avoid nephrotoxins - encourage po intake - monitor bp
[2019-08-11] MEDS: POTASSIUM CHLORIDE 10 MEQ in SODIUM CHLORIDE 0.45% 1,000 ML IVPB SCH ×2 (12:17→15:27)
--- NOTE | 2019-08-11 14:18 | PN ---
Progress Note, Physician History of Present Illness: stable looks much better - Current Medication List Current Medications: Active Medications Acetaminophen (Tylenol Suppository -) 650 mg [place] Q6H PRN PRN Reason: FEVER Last Admin: 08/08/19 17:37 Dose: 650 mg Ascorbic Acid (Vitamin C -) 500 mg PO BID [facility] Last Admin: 08/11/19 11:28 Dose: Not Given Aspirin (Asa -) 81 mg PO DAILY [facility] Last Admin: 08/11/19 11:28 Dose: 81 mg Atorvastatin Calcium (Lipitor -) 20 mg PO HS [facility] Last Admin: 08/10/19 22:08 Dose: 20 mg Carvedilol (Coreg -) 12.5 mg PO BID [facility] Last Admin: 08/11/19 11:27 Dose: 12.5 mg Ferrous Sulfate (Feosol -) 325 mg PO BIDWM [facility] Heparin Sodium (Porcine) (Heparin -) 5,000 unit SQ BID [facility] Last Admin: 08/11/19 11:28 Dose: 5,000 unit Hydralazine HCl (Apresoline -) 10 mg PO BID [facility] Last Admin: 08/11/19 11:28 Dose: 10 mg Potassium Chloride 10 meq/ (Sodium Chloride) 1,005 mls @ 55 mls/hr IVPB Q18H [facility] Last Admin: 08/11/19 12:17 Dose: 55 mls/hr Isosorbide Mononitrate (Imdur -) 30 mg PO DAILY [facility] Last Admin: 08/11/19 11:28 Dose: 30 mg Latanoprost (Xalatan 0.005% Eye Drops -) 1 drop OU HS [facility] Last Admin: 08/10/19 22:08 Dose: 1 drop Memantine (Namenda -) 5 mg PO BID [facility] Last Admin: 08/11/19 11:27 Dose: 5 mg Pantoprazole Sodium (Protonix -) 40 mg PO DAILY [facility] Last Admin: 08/11/19 11:27 Dose: 40 mg - Objective Vital Signs: Vital Signs Temperature 98.3 F 08/11/19 09:00 Pulse Rate 76 08/11/19 09:00 Respiratory Rate 20 08/11/19 09:00 Blood Pressure 127/69 08/11/19 09:00 O2 Sat by Pulse Oximetry (%) 99 08/10/19 22:00 Constitutional: Yes: No Distress, Calm Cardiovascular: Yes: S1, S2 Respiratory: Yes: Regular, CTA Bilaterally Gastrointestinal: Yes: Normal Bowel Sounds, Soft Musculoskeletal: Yes: WNL Extremities: Yes: Other Neurological: Yes: Alert Psychiatric: Yes: Alert Labs: CBC, BMP 08/10/19 05:35 08/11/19 06:30 INR, PTT INR 1.21 (0.83-1.09) H 08/02/19 21:25 Assessment/Plan Problem List - Problems (1) Acute on chronic combined systolic and diastolic congestive heart failure Code(s): I50.43 - ACUTE ON CHRONIC COMBINED SYSTOLIC AND DIASTOLIC HRT FAIL (2) Anemia Code(s): D64.9 - ANEMIA, UNSPECIFIED Qualifiers: Anemia type: unspecified type Qualified Code(s): D64.9 - Anemia, unspecified (3) Acute and chronic respiratory failure with hypoxia Code(s): J96.21 - ACUTE AND CHRONIC RESPIRATORY FAILURE WITH HYPOXIA (4) Acute on chronic renal failure Code(s): N17.9 - ACUTE KIDNEY FAILURE, UNSPECIFIED; N18.9 - CHRONIC KIDNEY DISEASE, UNSPECIFIED Qualifiers: Chronic kidney disease stage: stage 3 (moderate) (5) CHF (congestive heart failure) Code(s): I50.9 - HEART FAILURE, UNSPECIFIED Qualifiers: Heart failure type: combined systolic and diastolic Heart failure chronicity: chronic Qualified Code(s): I50.42 - Chronic combined systolic ( congestive) and diastolic (congestive) heart failure (6) COPD (chronic obstructive pulmonary disease) Code(s): J44.9 - CHRONIC OBSTRUCTIVE PULMONARY DISEASE, UNSPECIFIED Qualifiers: (7) Pneumonia Code(s): J18.9 - PNEUMONIA, UNSPECIFIED ORGANISM plan continue current mgmt nutrition rest as per the team monitor
--- NOTE | 2019-08-11 16:14 | CONSULT ---
Consult Consult Specialty:: Podiatry Reason for Consultation:: Painful elongated thickened toe nails. 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: Other (decreased hearing) Cardio/Vascular: Yes: CAD, CHF, HTN, Hyperlipdemia, Other (Right external carotid artery stenosis, tachycardia PPM) Pulmonary: Yes: COPD, O2 Dependent, Other (pulmonary nodules h/o invasive Aspergillosis) Gastrointestinal: Yes: Diverticulitis (as per today's CT), Diverticulosis, GERD , Other (left inguinal hernia, duodinitis, colon polyps) Renal/: Yes: Renal Inusuff, BPH, Hematuria, Other (bladder dysfunction) Infectious Disease: Yes: Other (h/o invasive pulmonary aspergillosis) Musculoskeletal: Yes: Chronic low back pain, Osteoarthritis, Other (dupuytren contracture) ENT: Yes: Other ([place]) Endocrine: Yes: Diabetes Mellitus - Past Surgical History Past Surgical History: Yes: Cholecystectomy (open), Permanent Pacemaker - Alcohol/Substance Use Hx Alcohol Use: No History of Substance Use: reports: None - Smoking History Smoking history: Unknown if ever smoked Have you smoked in the past 12 months: No If you are a former smoker, when did you quit?: 20 YRS AGO - Social History Usual Living Arrangement: With Child ADL: Family Assistance Occupation: , 4 children History of Recent Travel: No Home Medications - Allergies Allergies/Adverse Reactions: Allergies Allergy/AdvReac Type Severity Reaction Status Date / Time Iodinated Contrast Media Allergy Rash Verified 07/20/19 14:41 [Iodinated Contrast Media - IV Dye] levofloxacin [From Levaquin] Allergy "RASH" Verified 07/20/19 14:41 - Home Medications Home Medications: Ambulatory Orders Aspirin Coated [Ecotrin -] 81 mg PO DAILY 12/19/18 Atorvastatin Ca [Lipitor] 20 mg PO HS 12/19/18 Carvedilol [Coreg -] 12.5 mg PO BID 12/19/18 Latanoprost/Pf [Latanoprost 0.005% Eye Drop] 7.5 ml OP DAILY 12/19/18 Pantoprazole Sodium 40 mg PO DAILY 12/19/18 Risperidone [Risperdal] 1 mg PO DAILY 12/19/18 Cholecalciferol (Vitamin D3) [Vitamin D3] 2,000 unit PO DAILY 07/21/19 Cyanocobalamin [Vitamin B12 -] 1,000 mcg PO DAILY 07/21/19 Albuterol 2.5/Ipratropium 0.5 [Duoneb -] 1 amp NEB Q6H PRN amp 07/29/19 Diphenhydramine HCl [Benadryl Capsule -] 25 mg PO Q6H PRN #0 capsule 07/29/19 Prednisone 10 mg PO DAILY 07/29/19 Torsemide [Demadex -] 20 mg PO ASDIR #0 tab 07/29/19 Physical Exam Vital Signs: Vital Signs Temperature 97.4 F L 08/11/19 15:27 Pulse Rate 81 08/11/19 15:27 Respiratory Rate 20 08/11/19 15:27 Blood Pressure 129/74 08/11/19 15:27 O2 Sat by Pulse Oximetry (%) 99 08/10/19 22:00 Extremities: Yes: Other (+tender hypertrophic nails with subungual debris, + inflammed nails +distal seperation of nail from bed) Labs: CBC, BMP 08/10/19 05:35 08/11/19 06:30 Assessment/Plan onychomycosis pain Will return in am to debride nails with correct instrumentation.
[2019-08-11] MEDS: FERROUS SO4 325 MG TABLET (FP) PO SCH (16:33)
[2019-08-11] MEDS: LATANOPROST 0.005% OPHTH SOLN 2.5ML BOTTLE OU SCH ×2 (22:06→22:19)
[2019-08-11] MEDS: ATORVASTATIN CA 20 MG TABLET (FP) PO SCH ×2 (22:06→22:19)
[2019-08-12] MEDS ORDERED: PT OWN MED DRAWER 7, Y5N ONE ×2 (02:48→09:56)
[2019-08-12] MEDS: POTASSIUM CHLORIDE 10 MEQ in SODIUM CHLORIDE 0.45% 1,000 ML IVPB SCH ×2 (03:08→07:40)
[2019-08-12 06:54] LABS: HEMOGLOBIN 7.1 GM/dL (11.7-16.9); MCH 28.1 pg (25.7-33.7); MCHC 33.8 g/dl (32.0-35.9); MEAN CELL VOLUME 83.3 fl (80-96); MEAN PLT VOLUME 9.2 fl (7.5-11.1); PLATELET COUNT 145 K/MM3 (134-434); RBC 2.52 M/mm3 (4.00-5.60); RDW 17.1 % (11.9-15.9); WHITE BLOOD COUNT 6.8 K/mm3 (4.0-10.0)
[2019-08-12 07:23] LABS: BLOOD UREA NITROGEN 45.7 mg/dL (7-18); CALCIUM 7.5 mg/dL (8.5-10.1); CREATININE 3.3 mg/dL (0.55-1.3); POTASSIUM 3.7 mmol/L (3.5-5.1)
[2019-08-12] MEDS: HEPARIN NA (PORCINE) 5,000 UNITS/ML 1ML VIAL SQ SCH ×2 (09:57→21:31)
[2019-08-12] MEDS: ASCORBIC ACID 500 MG TABLET (FP) PO SCH ×3 (09:57→21:36)
[2019-08-12] MEDS: ISOSORBIDE MONONITRATE 30 MG TAB.SR.24H (FP) PO SCH (09:57)
[2019-08-12] MEDS: PANTOPRAZOLE 40 MG TABLET (FP) PO SCH (09:57)
[2019-08-12] MEDS: FERROUS SO4 325 MG TABLET (FP) PO SCH ×2 (09:57→18:02)
[2019-08-12] MEDS: ASPIRIN 81 MG CHEWABLE TABLETS PO SCH (09:57)
[2019-08-12] MEDS: MEMANTINE HCL 5 MG TABLET (UD) PO SCH ×3 (09:57→21:36)
[2019-08-12] MEDS: hydrALAZINE HCL 10 MG TABLET PO SCH ×3 (09:58→21:35)
[2019-08-12] MEDS: CARVEDILOL 12.5 MG TABLET (FP) PO SCH ×3 (10:01→21:36)
--- NOTE | 2019-08-12 10:09 | PN ---
Progress Note, Physician History of Present Illness: events noted Chart reviewed Alert awake Was being fed breakfast - Current Medication List Current Medications: Active Medications Acetaminophen (Tylenol Suppository -) 650 mg [place] Q6H PRN PRN Reason: FEVER Last Admin: 08/08/19 17:37 Dose: 650 mg Ascorbic Acid (Vitamin C -) 500 mg PO BID [facility] Last Admin: 08/12/19 09:57 Dose: 500 mg Aspirin (Asa -) 81 mg PO DAILY [facility] Last Admin: 08/12/19 09:57 Dose: 81 mg Atorvastatin Calcium (Lipitor -) 20 mg PO HS [facility] Last Admin: 08/11/19 22:19 Dose: Not Given Carvedilol (Coreg -) 12.5 mg PO BID [facility] Last Admin: 08/12/19 10:01 Dose: 12.5 mg Ferrous Sulfate (Feosol -) 325 mg PO BIDWM [facility] Last Admin: 08/12/19 09:57 Dose: 325 mg Heparin Sodium (Porcine) (Heparin -) 5,000 unit SQ BID [facility] Last Admin: 08/12/19 09:57 Dose: 5,000 unit Hydralazine HCl (Apresoline -) 10 mg PO BID [facility] Last Admin: 08/12/19 09:58 Dose: 10 mg Potassium Chloride 10 meq/ (Sodium Chloride) 1,005 mls @ 55 mls/hr IVPB Q18H [facility] Last Admin: 08/12/19 03:08 Dose: 55 mls/hr Isosorbide Mononitrate (Imdur -) 30 mg PO DAILY [facility] Last Admin: 08/12/19 09:57 Dose: 30 mg Latanoprost (Xalatan 0.005% Eye Drops -) 1 drop OU HS [facility] Last Admin: 08/11/19 22:19 Dose: Not Given Memantine (Namenda -) 5 mg PO BID [facility] Last Admin: 08/12/19 09:57 Dose: 5 mg Pantoprazole Sodium (Protonix -) 40 mg PO DAILY [facility] Last Admin: 08/12/19 09:57 Dose: 40 mg - Objective Vital Signs: Vital Signs Temperature 99.0 F 08/12/19 06:31 Pulse Rate 78 08/12/19 06:31 Respiratory Rate 20 08/12/19 06:31 Blood Pressure 117/68 08/12/19 06:31 O2 Sat by Pulse Oximetry (%) 95 08/11/19 22:00 Constitutional: Yes: No Distress Eyes: Yes: WNL Neurological: Yes: Alert, Oriented, Babinski positive ...Motor Strength: WNL Labs: CBC, BMP 08/12/19 05:50 08/12/19 05:50 INR, PTT INR 1.21 (0.83-1.09) H 08/02/19 21:25 Problem List - Problems (1) Dementia Assessment/Plan: increase Namenda to 10 mg twice daily. Noted the results of the EEG. We'll consider MRI as an outpatient Code(s): F03.90 - UNSPECIFIED DEMENTIA WITHOUT BEHAVIORAL DISTURBANCE
--- NOTE | 2019-08-12 12:14 | PN ---
Progress Note (short form) - Note Progress Note: pt seen/ examined awake/comfortable dont talk much afebrile Vital Signs Temp 99.0 F 08/12/19 06:31 Pulse 78 08/12/19 06:31 Resp 20 08/12/19 06:31 BP 117/68 08/12/19 06:31 Pulse Ox 95 08/11/19 22:00 Intake & Output 08/11/19 08/12/19 08/12/19 23:59 11:59 23:59 Intake Total 340 605 Balance 340 605 Weight 154 lb 6.4 oz Intake: IV 605 SL 2 605 Oral 100 Oral Supplement 240 Other: Voiding Method Diaper # Unmeasured Voids Void 1 Bowel Movement Yes # Bowel Movements 1 Weight Measurement Method Patient Lift Scale Active Medications Acetaminophen (Tylenol Suppository -) 650 mg [place] Q6H PRN PRN Reason: FEVER Last Admin: 08/08/19 17:37 Dose: 650 mg Ascorbic Acid (Vitamin C -) 500 mg PO BID [facility] Last Admin: 08/12/19 09:57 Dose: 500 mg Aspirin (Asa -) 81 mg PO DAILY [facility] Last Admin: 08/12/19 09:57 Dose: 81 mg Atorvastatin Calcium (Lipitor -) 20 mg PO HS [facility] Last Admin: 08/11/19 22:19 Dose: Not Given Carvedilol (Coreg -) 12.5 mg PO BID [facility] Last Admin: 08/12/19 10:01 Dose: 12.5 mg Ferrous Sulfate (Feosol -) 325 mg PO BIDWM [facility] Last Admin: 08/12/19 09:57 Dose: 325 mg Heparin Sodium (Porcine) (Heparin -) 5,000 unit SQ BID [facility] Last Admin: 08/12/19 09:57 Dose: 5,000 unit Hydralazine HCl (Apresoline -) 10 mg PO BID [facility] Last Admin: 08/12/19 09:58 Dose: 10 mg Potassium Chloride 10 meq/ (Sodium Chloride) 1,005 mls @ 55 mls/hr IVPB Q18H [facility] Last Admin: 08/12/19 03:08 Dose: 55 mls/hr Isosorbide Mononitrate (Imdur -) 30 mg PO DAILY [facility] Last Admin: 08/12/19 09:57 Dose: 30 mg Latanoprost (Xalatan 0.005% Eye Drops -) 1 drop OU HS [facility] Last Admin: 08/11/19 22:19 Dose: Not Given Memantine (Namenda -) 5 mg PO BID [facility] Last Admin: 08/12/19 09:57 Dose: 5 mg Pantoprazole Sodium (Protonix -) 40 mg PO DAILY [facility] Last Admin: 08/12/19 09:57 Dose: 40 mg CBC, BMP 08/12/19 05:50 08/12/19 05:50 Physical Exam S1 S2 RRR Lungs decreased breath sounds Abd- soft, obese, NT No edema awake-- Dont talk PLAN clinically stable appetitie remains issue monitor monitor labs continue present care will follow Problem List - Problems (1) Acute on chronic combined systolic and diastolic congestive heart failure Code(s): I50.43 - ACUTE ON CHRONIC COMBINED SYSTOLIC AND DIASTOLIC HRT FAIL (2) Anemia Code(s): D64.9 - ANEMIA, UNSPECIFIED Qualifiers: Anemia type: unspecified type Qualified Code(s): D64.9 - Anemia, unspecified (3) Acute and chronic respiratory failure with hypoxia Code(s): J96.21 - ACUTE AND CHRONIC RESPIRATORY FAILURE WITH HYPOXIA (4) Acute on chronic renal failure Code(s): N17.9 - ACUTE KIDNEY FAILURE, UNSPECIFIED; N18.9 - CHRONIC KIDNEY DISEASE, UNSPECIFIED Qualifiers: Chronic kidney disease stage: stage 3 (moderate) (5) CHF (congestive heart failure) Code(s): I50.9 - HEART FAILURE, UNSPECIFIED Qualifiers: Heart failure type: combined systolic and diastolic Heart failure chronicity: chronic Qualified Code(s): I50.42 - Chronic combined systolic ( congestive) and diastolic (congestive) heart failure (6) COPD (chronic obstructive pulmonary disease) Code(s): J44.9 - CHRONIC OBSTRUCTIVE PULMONARY DISEASE, UNSPECIFIED Qualifiers: (7) Pneumonia Code(s): J18.9 - PNEUMONIA, UNSPECIFIED ORGANISM
--- NOTE | 2019-08-12 12:54 | PN ---
Progress Note, Physician History of Present Illness: Pt seen and examined at bedside. He is awake but confused. - Current Medication List Current Medications: Active Medications Acetaminophen (Tylenol Suppository -) 650 mg [place] Q6H PRN PRN Reason: FEVER Last Admin: 08/08/19 17:37 Dose: 650 mg Ascorbic Acid (Vitamin C -) 500 mg PO BID [facility] Last Admin: 08/12/19 09:57 Dose: 500 mg Aspirin (Asa -) 81 mg PO DAILY [facility] Last Admin: 08/12/19 09:57 Dose: 81 mg Atorvastatin Calcium (Lipitor -) 20 mg PO HS [facility] Last Admin: 08/11/19 22:19 Dose: Not Given Carvedilol (Coreg -) 12.5 mg PO BID [facility] Last Admin: 08/12/19 10:01 Dose: 12.5 mg Ferrous Sulfate (Feosol -) 325 mg PO BIDWM [facility] Last Admin: 08/12/19 09:57 Dose: 325 mg Heparin Sodium (Porcine) (Heparin -) 5,000 unit SQ BID [facility] Last Admin: 08/12/19 09:57 Dose: 5,000 unit Hydralazine HCl (Apresoline -) 10 mg PO BID [facility] Last Admin: 08/12/19 09:58 Dose: 10 mg Potassium Chloride 10 meq/ (Sodium Chloride) 1,005 mls @ 55 mls/hr IVPB Q18H [facility] Last Admin: 08/12/19 03:08 Dose: 55 mls/hr Isosorbide Mononitrate (Imdur -) 30 mg PO DAILY [facility] Last Admin: 08/12/19 09:57 Dose: 30 mg Latanoprost (Xalatan 0.005% Eye Drops -) 1 drop OU HS [facility] Last Admin: 08/11/19 22:19 Dose: Not Given Memantine (Namenda -) 5 mg PO BID [facility] Last Admin: 08/12/19 09:57 Dose: 5 mg Pantoprazole Sodium (Protonix -) 40 mg PO DAILY [facility] Last Admin: 08/12/19 09:57 Dose: 40 mg - Objective Vital Signs: Vital Signs Temperature 99.0 F 08/12/19 06:31 Pulse Rate 78 08/12/19 06:31 Respiratory Rate 20 08/12/19 06:31 Blood Pressure 117/68 08/12/19 06:31 O2 Sat by Pulse Oximetry (%) 95 08/11/19 22:00 Constitutional: Yes: Calm Eyes: Yes: Conjunctiva Clear HENT: Yes: Atraumatic Cardiovascular: Yes: S1, S2 Respiratory: Yes: CTA Bilaterally Gastrointestinal: Yes: Soft Genitourinary: Yes: Incontinence Musculoskeletal: Yes: Muscle Weakness Edema: No Integumentary: Yes: WNL Neurological: Yes: Confusion Labs: CBC, BMP 08/12/19 05:50 08/12/19 05:50 INR, PTT INR 1.21 (0.83-1.09) H 08/02/19 21:25 Problem List - Problems (1) CKD (chronic kidney disease) Code(s): N18.9 - CHRONIC KIDNEY DISEASE, UNSPECIFIED Qualifiers: Chronic kidney disease stage: unspecified stage Qualified Code(s): N18.9 - Chronic kidney disease, unspecified (2) Acute kidney injury Code(s): N17.9 - ACUTE KIDNEY FAILURE, UNSPECIFIED Assessment/Plan Current Medications Generic Name Dose Route Start Last Admin Trade Name Freq PRN Reason Stop Dose Admin Acetaminophen 650 mg 08/05/19 17:07 08/08/19 17:37 Tylenol Suppository - [place] 650 mg Q6H PRN Administration FEVER Ascorbic Acid 500 mg 08/11/19 11:00 08/12/19 09:57 Vitamin C - PO 500 mg BID DINESH Administration Aspirin 81 mg 08/10/19 10:00 08/12/19 09:57 Asa - PO 81 mg DAILY DINESH Administration Atorvastatin Calcium 20 mg 08/03/19 22:00 08/11/19 22:19 Lipitor - PO Not Given HS DINESH Carvedilol 12.5 mg 08/03/19 10:00 08/12/19 10:01 Coreg - PO 12.5 mg BID DINESH Administration Ferrous Sulfate 325 mg 08/11/19 17:30 08/12/19 09:57 Feosol - PO 325 mg BIDWM DINESH Administration Heparin Sodium (Porcine) 5,000 unit 08/04/19 22:00 08/12/19 09:57 Heparin - SQ 5,000 unit BID DINESH Administration Hydralazine HCl 10 mg 08/06/19 12:15 08/12/19 09:58 Apresoline - PO 10 mg BID DINESH Administration Potassium Chloride 10 meq/ 1,005 mls @ 55 mls/hr 08/08/19 13:40 08/12/19 03: 08 Sodium Chloride IVPB 55 mls/hr Q18H DINESH Administration Isosorbide Mononitrate 30 mg 08/10/19 11:00 08/12/19 09:57 Imdur - PO 30 mg DAILY DINESH Administration Latanoprost 1 drop 08/03/19 22:00 08/11/19 22:19 Xalatan 0.005% Eye Drops - OU Not Given HS DINESH Memantine 5 mg 08/09/19 22:00 08/12/19 09:57 Namenda - PO 5 mg BID DINESH Administration Pantoprazole Sodium 40 mg 08/03/19 10:00 08/12/19 09:57 Protonix - PO 40 mg DAILY DINESH Administration Impression 1. LAURA 2. lethargy 3. recent pna and sepsis 4. ckd 5. copd 6. dm 7. hx htn 8. 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
--- NOTE | 2019-08-12 13:17 | PN ---
Progress Note, Physician History of Present Illness: stable awake and alert - Current Medication List Current Medications: Active Medications Acetaminophen (Tylenol Suppository -) 650 mg SC Q6H PRN PRN Reason: FEVER Last Admin: 08/08/19 17:37 Dose: 650 mg Ascorbic Acid (Vitamin C -) 500 mg PO BID [facility] Last Admin: 08/12/19 09:57 Dose: 500 mg Aspirin (Asa -) 81 mg PO DAILY [facility] Last Admin: 08/12/19 09:57 Dose: 81 mg Atorvastatin Calcium (Lipitor -) 20 mg PO HS [facility] Last Admin: 08/11/19 22:19 Dose: Not Given Carvedilol (Coreg -) 12.5 mg PO BID [facility] Last Admin: 08/12/19 10:01 Dose: 12.5 mg Ferrous Sulfate (Feosol -) 325 mg PO BIDWM [facility] Last Admin: 08/12/19 09:57 Dose: 325 mg Heparin Sodium (Porcine) (Heparin -) 5,000 unit SQ BID [facility] Last Admin: 08/12/19 09:57 Dose: 5,000 unit Hydralazine HCl (Apresoline -) 10 mg PO BID [facility] Last Admin: 08/12/19 09:58 Dose: 10 mg Potassium Chloride 10 meq/ (Sodium Chloride) 1,005 mls @ 55 mls/hr IVPB Q18H [facility] Last Admin: 08/12/19 03:08 Dose: 55 mls/hr Isosorbide Mononitrate (Imdur -) 30 mg PO DAILY [facility] Last Admin: 08/12/19 09:57 Dose: 30 mg Latanoprost (Xalatan 0.005% Eye Drops -) 1 drop OU HS [facility] Last Admin: 08/11/19 22:19 Dose: Not Given Memantine (Namenda -) 5 mg PO BID [facility] Last Admin: 08/12/19 09:57 Dose: 5 mg Pantoprazole Sodium (Protonix -) 40 mg PO DAILY [facility] Last Admin: 08/12/19 09:57 Dose: 40 mg - Objective Vital Signs: Vital Signs Temperature 99.0 F 08/12/19 06:31 Pulse Rate 78 08/12/19 06:31 Respiratory Rate 20 08/12/19 06:31 Blood Pressure 117/68 08/12/19 06:31 O2 Sat by Pulse Oximetry (%) 95 08/11/19 22:00 Constitutional: Yes: No Distress, Calm Cardiovascular: Yes: S1, S2 Respiratory: Yes: Regular, CTA Bilaterally Gastrointestinal: Yes: Normal Bowel Sounds, Soft Musculoskeletal: Yes: WNL Extremities: Yes: WNL Neurological: Yes: Alert, Other Psychiatric: Yes: Other Labs: CBC, BMP 08/12/19 05:50 08/12/19 05:50 INR, PTT INR 1.21 (0.83-1.09) H 08/02/19 21:25 Assessment/Plan Problem List - Problems (1) Acute on chronic combined systolic and diastolic congestive heart failure Code(s): I50.43 - ACUTE ON CHRONIC COMBINED SYSTOLIC AND DIASTOLIC HRT FAIL (2) Anemia Code(s): D64.9 - ANEMIA, UNSPECIFIED Qualifiers: Anemia type: unspecified type Qualified Code(s): D64.9 - Anemia, unspecified (3) Acute and chronic respiratory failure with hypoxia Code(s): J96.21 - ACUTE AND CHRONIC RESPIRATORY FAILURE WITH HYPOXIA (4) Acute on chronic renal failure Code(s): N17.9 - ACUTE KIDNEY FAILURE, UNSPECIFIED; N18.9 - CHRONIC KIDNEY DISEASE, UNSPECIFIED Qualifiers: Chronic kidney disease stage: stage 3 (moderate) (5) CHF (congestive heart failure) Code(s): I50.9 - HEART FAILURE, UNSPECIFIED Qualifiers: Heart failure type: combined systolic and diastolic Heart failure chronicity: chronic Qualified Code(s): I50.42 - Chronic combined systolic ( congestive) and diastolic (congestive) heart failure (6) COPD (chronic obstructive pulmonary disease) Code(s): J44.9 - CHRONIC OBSTRUCTIVE PULMONARY DISEASE, UNSPECIFIED Qualifiers: (7) Pneumonia Code(s): J18.9 - PNEUMONIA, UNSPECIFIED ORGANISM plan continue current mgmt nutrition rest as per the team monitor
--- NOTE | 2019-08-12 13:20 | PN ---
Progress Note (short form) - Note Progress Note: Painful elongated thickened toe nails b/l feet. Appears to not have been cut in over 1 year. +tender hypertrophic mycotic nails with subungual debris and inflammed nail beds x 10 onychomycosis pain Debride nails x 10. Foot care [id number]. Patient needs nail softener and antifungal. Please reconsult if necessary.
[2019-08-12 14:41] LABS: EPI CELLS 10.5 /HPF (0-5/HPF); HYALINE CASTS 17 /lpf (0-8); URINE APPEARANCE CLOUDY; URINE BACTERIA 2.2 /hpf (NEGATIVE); URINE BILIRUBIN NEGATIVE (NEGATIVE); URINE COLOR YELLOW; URINE GLUCOSE (UA) NEGATIVE (NEGATIVE); URINE KETONE NEGATIVE (NEGATIVE); URINE LEUK ESTERASE 2+ (NEGATIVE); URINE NITRITE NEGATIVE (NEGATIVE); URINE PROTEIN 1+ (NEGATIVE); URINE UROBILINOGEN 0.2 mg/dL (0.2-1.0); URINE WBC 80 /hpf (0-5)
[2019-08-12 15:15] LABS: URINE RBC 5 /hpf (0-4); YEAST 2+ (NEGATIVE)
--- NOTE | 2019-08-12 16:11 | PN ---
Progress Note, Physician History of Present Illness: Lethargic yet arousable. - Current Medication List Current Medications: Active Medications Acetaminophen (Tylenol Suppository -) 650 mg [place] Q6H PRN PRN Reason: FEVER Last Admin: 08/08/19 17:37 Dose: 650 mg Ascorbic Acid (Vitamin C -) 500 mg PO BID [facility] Last Admin: 08/12/19 09:57 Dose: 500 mg Aspirin (Asa -) 81 mg PO DAILY [facility] Last Admin: 08/12/19 09:57 Dose: 81 mg Atorvastatin Calcium (Lipitor -) 20 mg PO HS [facility] Last Admin: 08/11/19 22:19 Dose: Not Given Carvedilol (Coreg -) 12.5 mg PO BID [facility] Last Admin: 08/12/19 10:01 Dose: 12.5 mg Ferrous Sulfate (Feosol -) 325 mg PO BIDWM [facility] Last Admin: 08/12/19 09:57 Dose: 325 mg Heparin Sodium (Porcine) (Heparin -) 5,000 unit SQ BID [facility] Last Admin: 08/12/19 09:57 Dose: 5,000 unit Hydralazine HCl (Apresoline -) 10 mg PO BID [facility] Last Admin: 08/12/19 09:58 Dose: 10 mg Potassium Chloride 10 meq/ (Sodium Chloride) 1,005 mls @ 55 mls/hr IVPB Q18H [facility] Last Admin: 08/12/19 03:08 Dose: 55 mls/hr Isosorbide Mononitrate (Imdur -) 30 mg PO DAILY [facility] Last Admin: 08/12/19 09:57 Dose: 30 mg Latanoprost (Xalatan 0.005% Eye Drops -) 1 drop OU HS [facility] Last Admin: 08/11/19 22:19 Dose: Not Given Memantine (Namenda -) 5 mg PO BID [facility] Last Admin: 08/12/19 09:57 Dose: 5 mg Pantoprazole Sodium (Protonix -) 40 mg PO DAILY [facility] Last Admin: 08/12/19 09:57 Dose: 40 mg - Objective Vital Signs: Vital Signs Temperature 99 F 08/12/19 14:00 Pulse Rate 76 08/12/19 14:00 Respiratory Rate 20 08/12/19 14:00 Blood Pressure 116/62 08/12/19 14:00 O2 Sat by Pulse Oximetry (%) 95 08/11/19 22:00 Constitutional: Yes: No Distress, Calm, Thin Neck: Yes: Supple Cardiovascular: Yes: Regular Rate and Rhythm Respiratory: Yes: Regular, Diminished, On Nasal O2 Gastrointestinal: Yes: Soft, Hypoactive Bowel Sounds Edema: No Labs: CBC, BMP 08/12/19 05:50 08/12/19 05:50 INR, PTT INR 1.21 (0.83-1.09) H 08/02/19 21:25 - ....Imaging EKG: Report Reviewed (Tele: V-paced) Problem List - Problems (1) Acute on chronic combined systolic and diastolic congestive heart failure Code(s): I50.43 - ACUTE ON CHRONIC COMBINED SYSTOLIC AND DIASTOLIC HRT FAIL (2) Acute and chronic respiratory failure with hypoxia Code(s): J96.21 - ACUTE AND CHRONIC RESPIRATORY FAILURE WITH HYPOXIA (3) Acute on chronic renal failure Code(s): N17.9 - ACUTE KIDNEY FAILURE, UNSPECIFIED; N18.9 - CHRONIC KIDNEY DISEASE, UNSPECIFIED Qualifiers: Chronic kidney disease stage: stage 3 (moderate) (4) COPD (chronic obstructive pulmonary disease) Code(s): J44.9 - CHRONIC OBSTRUCTIVE PULMONARY DISEASE, UNSPECIFIED Qualifiers: (5) Cardiac pacemaker in situ Code(s): Z95.0 - PRESENCE OF CARDIAC PACEMAKER (6) Systolic dysfunction without heart failure Code(s): I51.9 - HEART DISEASE, UNSPECIFIED (7) ASHD (arteriosclerotic heart disease) Code(s): I25.10 - ATHSCL HEART DISEASE OF [place] CORONARY ARTERY W/O ANG PCTRS (8) Diabetes mellitus Code(s): E11.9 - TYPE 2 DIABETES MELLITUS WITHOUT COMPLICATIONS Qualifiers: Diabetes mellitus type: type 2 Diabetes mellitus detention insulin use: without termite control technician use Diabetes mellitus complication status: with unspecified complications (9) Hyperlipidemia Code(s): E78.5 - HYPERLIPIDEMIA, UNSPECIFIED Qualifiers: Hyperlipidemia type: pure hypercholesterolemia Qualified Code(s): E78.00 - Pure hypercholesterolemia, unspecified (10) Hypertension Code(s): I10 - ESSENTIAL (PRIMARY) HYPERTENSION Qualifiers: Hypertension type: essential hypertension Qualified Code(s): I10 - Essential (primary) hypertension Assessment/Plan 10/26/14 Echo: Normal biventricular size and fxn without sig valve abnl 11/28/2016 Echo: Mod-severely decreased LV fxn with severe HK lateral and inferolateral, mold MR, TR RVSP 40-50 mmHg 11/12/2017 Echo: Mod-severely decreased LV fxn with severe HK inferior, mild TR mild effusion 06/02/2018 Echo: Mild-mod decreased LV fxn with apical dyskinesis, mild MR 07/21/2019 Echo: Mildly dilated LV with severely decreased LVEF, normal RV size and fxn, mild MR, tr TR, RV pacing 08/04/2019 Echo: Mildly dilated LV with severely decreased LVEF, normal RV size and fxn, tr TR RV pacemaker 1. Post Coag neg staph sepsis, Klebsiella PNA UTI 2. Chronic Hypoxic Respiratory Failure referable to 3. Chronic Systolic Heart Failure 4. 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 Advanced AV block post pacemaker implant interrogated 11/2016 7. HTN 8. Hypercholesterolemia 9. DHEERAJ 10. Acute on CKD 11. Anemia of chronic disease with h/o diverticular disease 12. Dementia PLAN: 1. Hold diuretics with monitor renal fxn and electrolytes 2. Continue Carvedilol 12.5 bid, Lipitor 20 qhs, ASA 81 qd, hydralazine 10 bid and Imdur 30 qd (BiDil) and holding losartan 100 qd pending renal fxn stabilization 3. Bronchodilators, completed abx course per C&S, wean FIO2 for saO2>90% 4. GI and DVT prophylaxis, dysphagia diet with calorie count, consider PEG insertion, EEG is normal, f/u brain MRI
[2019-08-12] MEDS: ATORVASTATIN CA 20 MG TABLET (FP) PO SCH ×2 (21:30→21:36)
[2019-08-12] MEDS: LATANOPROST 0.005% OPHTH SOLN 2.5ML BOTTLE OU SCH ×2 (21:31→21:36)
[2019-08-13] MEDS: POTASSIUM CHLORIDE 10 MEQ in SODIUM CHLORIDE 0.45% 1,000 ML IVPB SCH (00:22)
--- NOTE | 2019-08-13 07:21 | PN ---
Progress Note (short form) - Note Progress Note: Chief Complaint: Events noted, notes reviewed, non verbal in acute distress History of Present Illness: Seen and examined on telemetry. Events noted, notes reviewed, non verbal in acute distress - Current Medication List Current Medications Acetaminophen (Tylenol Suppository -) 650 mg [place] Q6H PRN PRN Reason: FEVER Last Admin: 08/08/19 17:37 Dose: 650 mg Ascorbic Acid (Vitamin C -) 500 mg PO BID [facility] Last Admin: 08/13/19 10:37 Dose: 500 mg Aspirin (Asa -) 81 mg PO DAILY [facility] Last Admin: 08/13/19 10:37 Dose: 81 mg Atorvastatin Calcium (Lipitor -) 20 mg PO HS [facility] Last Admin: 08/12/19 21:36 Dose: Not Given Carvedilol (Coreg -) 12.5 mg PO BID [facility] Last Admin: 08/13/19 10:38 Dose: 12.5 mg Ferrous Sulfate (Feosol -) 325 mg PO BIDWM [facility] Last Admin: 08/13/19 08:23 Dose: 325 mg Heparin Sodium (Porcine) (Heparin -) 5,000 unit SQ BID [facility] Last Admin: 08/13/19 10:38 Dose: 5,000 unit Hydralazine HCl (Apresoline -) 10 mg PO BID [facility] Last Admin: 08/13/19 10:37 Dose: 10 mg Potassium Chloride 10 meq/ (Sodium Chloride) 1,005 mls @ 55 mls/hr IVPB Q18H [facility] Last Admin: 08/13/19 00:22 Dose: 55 mls/hr Isosorbide Mononitrate (Imdur -) 30 mg PO DAILY [facility] Last Admin: 08/13/19 10:37 Dose: 30 mg Latanoprost (Xalatan 0.005% Eye Drops -) 1 drop OU HS [facility] Last Admin: 08/12/19 21:36 Dose: Not Given Memantine (Namenda -) 5 mg PO BID [facility] Last Admin: 08/13/19 10:38 Dose: 5 mg Pantoprazole Sodium (Protonix -) 40 mg PO DAILY [facility] Last Admin: 08/13/19 10:37 Dose: 40 mg Review of Systems Unable to obtain - Objective Vital Signs: Last Vital Signs Temp Pulse Resp BP Pulse Ox 98.7 F 82 20 126/60 97 08/13/19 04:57 08/13/19 04:57 08/13/19 04:57 08/13/19 04:57 08/12/19 22:00 Intake & Output 08/10/19 08/11/19 08/12/19 08/13/19 23:59 23:59 23:59 23:59 Intake Total 2084 1100 605 Output Total 100 Balance 1984 1100 605 Weight 152 lb 9.6 oz 154 lb 6.4 oz Neck: Supple Negative JVD No Bruit Respiratory: Scattered Rhonchi Bilaterally Cardiovascular: S1 S2 Regular Rate and Rhythm Gastrointestinal: Soft Benign Normal Bowel Sounds Ext: No Edema Labs: CBC, BMP 08/12/19 05:50 08/12/19 05:50 Hepatic Panel Total Bilirubin 0.5 mg/dL (0.2-1) 08/11/19 06:30 AST 16 U/L (15-37) 08/11/19 06:30 ALT 12 U/L (13-61) L 08/11/19 06:30 Alkaline Phosphatase 49 U/L (45-117) 08/11/19 06:30 Albumin 1.7 g/dl (3.4-5.0) L 08/11/19 06:30 INR, PTT INR 1.21 (0.83-1.09) H 08/02/19 21:25 Assessment/Plan ASSESSMENT: 1. Pneumonia with sepsis syndrome, resolved 2. Chronic hypoxic respiratory failure referable to 3. 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 Advanced AV block post pacemaker implant 7. HTN 8. Hypercholesterolemia 9. Organic brain syndrome/dementia 10. Acute on CKD 11. Anemia of chronic disease PLAN: 1. Continue to withhold diuretics, close monitoring or renal function 2. Continue Carvedilol 3. Continue Imdur and Hydralazine/BiDil 4. Resume ARBS once renal function at baseline 5. Continue Lipitor 6. Continue ASA 7. Antibiotics as per the primary team Don Galeano M.D.
[2019-08-13] MEDS: FERROUS SO4 325 MG TABLET (FP) PO SCH ×2 (08:23→17:29)
[2019-08-13] MEDS: hydrALAZINE HCL 10 MG TABLET PO SCH ×3 (10:37→22:57)
[2019-08-13] MEDS: ASCORBIC ACID 500 MG TABLET (FP) PO SCH ×3 (10:37→22:50)
[2019-08-13] MEDS: ASPIRIN 81 MG CHEWABLE TABLETS PO SCH (10:37)
[2019-08-13] MEDS: ISOSORBIDE MONONITRATE 30 MG TAB.SR.24H (FP) PO SCH (10:37)
[2019-08-13] MEDS: PANTOPRAZOLE 40 MG TABLET (FP) PO SCH (10:37)
[2019-08-13] MEDS: HEPARIN NA (PORCINE) 5,000 UNITS/ML 1ML VIAL SQ SCH ×2 (10:38→22:49)
[2019-08-13] MEDS: MEMANTINE HCL 5 MG TABLET (UD) PO SCH ×3 (10:38→22:50)
[2019-08-13] MEDS: CARVEDILOL 12.5 MG TABLET (FP) PO SCH ×3 (10:38→22:50)
--- NOTE | 2019-08-13 12:02 | PN ---
Progress Note, Physician History of Present Illness: Pt is easily arousable, in no distress, afebrile. - Current Medication List Current Medications: Active Medications Acetaminophen (Tylenol Suppository -) 650 mg [place] Q6H PRN PRN Reason: FEVER Last Admin: 08/08/19 17:37 Dose: 650 mg Ascorbic Acid (Vitamin C -) 500 mg PO BID [facility] Last Admin: 08/13/19 10:37 Dose: 500 mg Aspirin (Asa -) 81 mg PO DAILY [facility] Last Admin: 08/13/19 10:37 Dose: 81 mg Atorvastatin Calcium (Lipitor -) 20 mg PO HS [facility] Last Admin: 08/12/19 21:36 Dose: Not Given Carvedilol (Coreg -) 12.5 mg PO BID [facility] Last Admin: 08/13/19 10:38 Dose: 12.5 mg Ferrous Sulfate (Feosol -) 325 mg PO BIDWM [facility] Last Admin: 08/13/19 08:23 Dose: 325 mg Heparin Sodium (Porcine) (Heparin -) 5,000 unit SQ BID [facility] Last Admin: 08/13/19 10:38 Dose: 5,000 unit Hydralazine HCl (Apresoline -) 10 mg PO BID [facility] Last Admin: 08/13/19 10:37 Dose: 10 mg Potassium Chloride 10 meq/ (Sodium Chloride) 1,005 mls @ 55 mls/hr IVPB Q18H [facility] Last Admin: 08/13/19 00:22 Dose: 55 mls/hr Isosorbide Mononitrate (Imdur -) 30 mg PO DAILY [facility] Last Admin: 08/13/19 10:37 Dose: 30 mg Latanoprost (Xalatan 0.005% Eye Drops -) 1 drop OU HS [facility] Last Admin: 08/12/19 21:36 Dose: Not Given Memantine (Namenda -) 5 mg PO BID [facility] Last Admin: 08/13/19 10:38 Dose: 5 mg Pantoprazole Sodium (Protonix -) 40 mg PO DAILY [facility] Last Admin: 08/13/19 10:37 Dose: 40 mg - Objective Vital Signs: Vital Signs Temperature 98.7 F 08/13/19 09:59 Pulse Rate 81 08/13/19 09:59 Respiratory Rate 20 08/13/19 09:59 Blood Pressure 129/62 08/13/19 09:59 O2 Sat by Pulse Oximetry (%) 97 08/13/19 09:55 Constitutional: Yes: No Distress, Calm Cardiovascular: Yes: Regular Rate and Rhythm Respiratory: Yes: CTA Bilaterally Gastrointestinal: Yes: Normal Bowel Sounds, Soft Extremities: Yes: WNL Integumentary: Yes: WNL Neurological: Yes: Alert Labs: CBC, BMP 08/12/19 05:50 08/12/19 05:50 INR, PTT INR 1.21 (0.83-1.09) H 08/02/19 21:25 Microbiology 08/12/19 13:00 Urine - Urine - Catheterized Urine Culture - Final NO GROWTH OBTAINED 08/05/19 05:38 Blood - Peripheral Venous Blood Culture - Final NO GROWTH AFTER 5 DAYS INCUBATION 08/05/19 05:14 Blood - Peripheral Venous Blood Culture - Final NO GROWTH AFTER 5 DAYS INCUBATION 08/06/19 18:17 Urine - Urine Anthony Urine Culture - Final NO GROWTH OBTAINED 08/02/19 21:28 Blood - Peripheral Venous Blood Culture - Final Staphylococcus Coagulase Neg 08/02/19 21:25 Blood - Peripheral Venous Blood Culture - Final Staphylococcus Coagulase Neg 08/02/19 20:30 Urine - Urine - Catheterized Urine Culture - Final Klebsiella Pneumoniae Vr Ec Faecium 08/04/19 13:46 Urine For Antigen Detection Legionella Antigen - Final 08/04/19 13:46 Urine For Antigen Detection Streptococcus pneumoniae Antigen (M - Final Problem List - Problems (1) Acute on chronic combined systolic and diastolic congestive heart failure Code(s): I50.43 - ACUTE ON CHRONIC COMBINED SYSTOLIC AND DIASTOLIC HRT FAIL (2) CKD (chronic kidney disease) Code(s): N18.9 - CHRONIC KIDNEY DISEASE, UNSPECIFIED Qualifiers: Chronic kidney disease stage: unspecified stage Qualified Code(s): N18.9 - Chronic kidney disease, unspecified (3) UTI (urinary tract infection) Code(s): N39.0 - URINARY TRACT INFECTION, SITE NOT SPECIFIED Qualifiers: Urinary tract infection type: site unspecified Hematuria presence: without hematuria Qualified Code(s): N39.0 - Urinary tract infection, site not specified (4) Acute and chronic respiratory failure Code(s): J96.20 - ACUTE AND CHR RESP FAILURE, UNSP W HYPOXIA OR HYPERCAPNIA Qualifiers: Respiratory failure complication: hypoxia Qualified Code(s): J96.21 - Acute and chronic respiratory failure with hypoxia (5) COPD (chronic obstructive pulmonary disease) Code(s): J44.9 - CHRONIC OBSTRUCTIVE PULMONARY DISEASE, UNSPECIFIED Qualifiers: (6) Cardiac pacemaker in situ Code(s): Z95.0 - PRESENCE OF CARDIAC PACEMAKER (7) Diabetes mellitus Code(s): E11.9 - TYPE 2 DIABETES MELLITUS WITHOUT COMPLICATIONS Qualifiers: Diabetes mellitus type: type 2 Diabetes mellitus chcf insulin use: without intermission coordinator use Diabetes mellitus complication status: with unspecified complications (8) Hyperlipidemia Code(s): E78.5 - HYPERLIPIDEMIA, UNSPECIFIED Qualifiers: Hyperlipidemia type: pure hypercholesterolemia Qualified Code(s): E78.00 - Pure hypercholesterolemia, unspecified (9) Hypertension Code(s): I10 - ESSENTIAL (PRIMARY) HYPERTENSION Qualifiers: Hypertension type: essential hypertension Qualified Code(s): I10 - Essential (primary) hypertension Assessment/Plan UTI CHF COPD acute on chronic resp failure CAD s/p PPM LAURA/CKD DM -- Pt is s/p course of antibiotics -- Currently afebrile, without distress -- continue monitor off of antibiotics, monitor temps
--- NOTE | 2019-08-13 15:57 | PN ---
Progress Note (short form) - Note Progress Note: 1. LAURA 2. lethargy 3. recent pna and sepsis 4. ckd 5. copd 6. dm 7. hx htn 8. dementia Current Medications Acetaminophen (Tylenol Suppository -) 650 mg [place] Q6H PRN PRN Reason: FEVER Last Admin: 08/08/19 17:37 Dose: 650 mg Ascorbic Acid (Vitamin C -) 500 mg PO BID [facility] Last Admin: 08/13/19 10:37 Dose: 500 mg Aspirin (Asa -) 81 mg PO DAILY [facility] Last Admin: 08/13/19 10:37 Dose: 81 mg Atorvastatin Calcium (Lipitor -) 20 mg PO HS [facility] Last Admin: 08/12/19 21:36 Dose: Not Given Carvedilol (Coreg -) 12.5 mg PO BID [facility] Last Admin: 08/13/19 10:38 Dose: 12.5 mg Ferrous Sulfate (Feosol -) 325 mg PO BIDWM [facility] Last Admin: 08/13/19 08:23 Dose: 325 mg Heparin Sodium (Porcine) (Heparin -) 5,000 unit SQ BID [facility] Last Admin: 08/13/19 10:38 Dose: 5,000 unit Hydralazine HCl (Apresoline -) 10 mg PO BID [facility] Last Admin: 08/13/19 10:37 Dose: 10 mg Potassium Chloride 10 meq/ (Sodium Chloride) 1,005 mls @ 55 mls/hr IVPB Q18H [facility] Last Admin: 08/13/19 00:22 Dose: 55 mls/hr Isosorbide Mononitrate (Imdur -) 30 mg PO DAILY [facility] Last Admin: 08/13/19 10:37 Dose: 30 mg Latanoprost (Xalatan 0.005% Eye Drops -) 1 drop OU HS [facility] Last Admin: 08/12/19 21:36 Dose: Not Given Memantine (Namenda -) 5 mg PO BID [facility] Last Admin: 08/13/19 10:38 Dose: 5 mg Pantoprazole Sodium (Protonix -) 40 mg PO DAILY [facility] Last Admin: 08/13/19 10:37 Dose: 40 mg Last Vital Signs Temp Pulse Resp BP Pulse Ox 98.7 F 81 20 129/62 97 08/13/19 09:59 08/13/19 09:59 08/13/19 09:59 08/13/19 09:59 08/13/19 09:55 CBC, BMP 08/12/19 05:50 08/12/19 05:50 IMP- HF LAURA improving Plan - cont fluids - repeat labs in am - monitor 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
--- NOTE | 2019-08-13 16:17 | PN ---
Progress Note (short form) - Note Progress Note: awake now No distress not eating much per staff Vital Signs - 24 hr 08/12/19 08/12/19 08/12/19 18:00 21:00 22:00 Temperature 99.0 F 99.2 F Pulse Rate 82 80 Respiratory 20 20 Rate Blood Pressure 127/69 133/67 O2 Sat by Pulse 97 97 Oximetry (%) 08/13/19 08/13/19 08/13/19 04:57 09:00 09:55 Temperature 98.7 F 98.7 F Pulse Rate 82 81 Respiratory 20 20 Rate Blood Pressure 126/60 129/62 O2 Sat by Pulse 97 97 Oximetry (%) 08/13/19 09:59 Temperature 98.7 F Pulse Rate 81 Respiratory 20 Rate Blood Pressure 129/62 O2 Sat by Pulse Oximetry (%) Current Medications Generic Name Dose Route Start Last Admin Trade Name Freq PRN Reason Stop Dose Admin Acetaminophen 650 mg 08/05/19 17:07 08/08/19 17:37 Tylenol Suppository - VT 650 mg Q6H PRN Administration FEVER Ascorbic Acid 500 mg 08/11/19 11:00 08/13/19 10:37 Vitamin C - PO 500 mg BID [facility] Administration Aspirin 81 mg 08/10/19 10:00 08/13/19 10:37 Asa - PO 81 mg DAILY [facility] Administration Atorvastatin Calcium 20 mg 08/03/19 22:00 08/12/19 21:36 Lipitor - PO Not Given HS [facility] Carvedilol 12.5 mg 08/03/19 10:00 08/13/19 10:38 Coreg - PO 12.5 mg BID [facility] Administration Ferrous Sulfate 325 mg 08/11/19 17:30 08/13/19 08:23 Feosol - PO 325 mg BIDWM [facility] Administration Heparin Sodium (Porcine) 5,000 unit 08/04/19 22:00 08/13/19 10:38 Heparin - SQ 5,000 unit BID [facility] Administration Hydralazine HCl 10 mg 08/06/19 12:15 08/13/19 10:37 Apresoline - PO 10 mg BID [facility] Administration Potassium Chloride 10 meq/ 1,005 mls @ 55 mls/hr 08/08/19 13:40 08/13/19 00: 22 Sodium Chloride IVPB 55 mls/hr Q18H [facility] Administration Isosorbide Mononitrate 30 mg 08/10/19 11:00 08/13/19 10:37 Imdur - PO 30 mg DAILY [facility] Administration Latanoprost 1 drop 08/03/19 22:00 08/12/19 21:36 Xalatan 0.005% Eye Drops - OU Not Given HS [facility] Memantine 5 mg 08/09/19 22:00 08/13/19 10:38 Namenda - PO 5 mg BID [facility] Administration Pantoprazole Sodium 40 mg 08/03/19 10:00 08/13/19 10:37 Protonix - PO 40 mg DAILY [facility] Administration Laboratory Results - last 24 hr 08/10/19 05:35 NEAL Screen Negative Microbiology 08/05/19 05:38 Blood Culture - Preliminary Blood - Peripheral Venous NO GROWTH OBTAINED AFTER 96 HOURS, INCUBATION TO CONTINUE FOR 1 DAYS. 08/05/19 05:14 Blood Culture - Preliminary Blood - Peripheral Venous NO GROWTH OBTAINED AFTER 96 HOURS, INCUBATION TO CONTINUE FOR 1 DAYS. S1 S2 RRR Lungs decreased breath sounds Abd- soft, obese, NT No edema PLAN Iv antibiotics dc monitor renal function -->better Neurology eval noted - on aricept monitor renal function-->no dialysis now iron studies noted continue with meds Problem List - Problems (1) Acute on chronic combined systolic and diastolic congestive heart failure Code(s): I50.43 - ACUTE ON CHRONIC COMBINED SYSTOLIC AND DIASTOLIC HRT FAIL (2) Anemia Code(s): D64.9 - ANEMIA, UNSPECIFIED Qualifiers: Anemia type: unspecified type Qualified Code(s): D64.9 - Anemia, unspecified (3) Acute and chronic respiratory failure with hypoxia Code(s): J96.21 - ACUTE AND CHRONIC RESPIRATORY FAILURE WITH HYPOXIA (4) Acute on chronic renal failure Code(s): N17.9 - ACUTE KIDNEY FAILURE, UNSPECIFIED; N18.9 - CHRONIC KIDNEY DISEASE, UNSPECIFIED Qualifiers: Chronic kidney disease stage: stage 3 (moderate) (5) CHF (congestive heart failure) Code(s): I50.9 - HEART FAILURE, UNSPECIFIED Qualifiers: Heart failure type: combined systolic and diastolic Heart failure chronicity: chronic Qualified Code(s): I50.42 - Chronic combined systolic ( congestive) and diastolic (congestive) heart failure (6) COPD (chronic obstructive pulmonary disease) Code(s): J44.9 - CHRONIC OBSTRUCTIVE PULMONARY DISEASE, UNSPECIFIED Qualifiers: (7) Pneumonia Code(s): J18.9 - PNEUMONIA, UNSPECIFIED ORGANISM
[2019-08-13] MEDS: LATANOPROST 0.005% OPHTH SOLN 2.5ML BOTTLE OU SCH (22:50)
[2019-08-13] MEDS: ATORVASTATIN CA 20 MG TABLET (FP) PO SCH (22:50)
--- NOTE | 2019-08-14 07:52 | PN ---
Progress Note (short form) - Note Progress Note: Chief Complaint: Events noted, notes reviewed, non verbal in acute distress, overall no change in status History of Present Illness: Seen and examined on telemetry. Events noted, notes reviewed, non verbal in acute distress, overall no change in status - Current Medication List Current Medications Acetaminophen (Tylenol Suppository -) 650 mg [place] Q6H PRN PRN Reason: FEVER Last Admin: 08/08/19 17:37 Dose: 650 mg Ascorbic Acid (Vitamin C -) 500 mg PO BID [facility] Last Admin: 08/13/19 22:00 Dose: Not Given Aspirin (Asa -) 81 mg PO DAILY [facility] Last Admin: 08/13/19 10:37 Dose: 81 mg Atorvastatin Calcium (Lipitor -) 20 mg PO HS [facility] Last Admin: 08/13/19 22:50 Dose: 20 mg Carvedilol (Coreg -) 12.5 mg PO BID [facility] Last Admin: 08/13/19 22:00 Dose: Not Given Ferrous Sulfate (Feosol -) 325 mg PO BIDWM [facility] Last Admin: 08/13/19 17:29 Dose: 325 mg Heparin Sodium (Porcine) (Heparin -) 5,000 unit SQ BID [facility] Last Admin: 08/13/19 22:49 Dose: 5,000 unit Hydralazine HCl (Apresoline -) 10 mg PO BID [facility] Last Admin: 08/13/19 22:57 Dose: Not Given Potassium Chloride 10 meq/ (Sodium Chloride) 1,005 mls @ 55 mls/hr IVPB Q18H [facility] Last Admin: 08/13/19 00:22 Dose: 55 mls/hr Isosorbide Mononitrate (Imdur -) 30 mg PO DAILY [facility] Last Admin: 08/13/19 10:37 Dose: 30 mg Latanoprost (Xalatan 0.005% Eye Drops -) 1 drop OU HS [facility] Last Admin: 08/13/19 22:50 Dose: 1 drop Memantine (Namenda -) 5 mg PO BID [facility] Last Admin: 08/13/19 22:00 Dose: Not Given Pantoprazole Sodium (Protonix -) 40 mg PO DAILY [facility] Last Admin: 08/13/19 10:37 Dose: 40 mg Review of Systems Unable to obtain - Objective Vital Signs: Last Vital Signs Temp Pulse Resp BP Pulse Ox 98.7 F 73 20 128/65 96 08/14/19 06:00 08/14/19 06:00 08/14/19 06:00 08/14/19 06:00 08/14/19 06:00 Intake & Output 08/11/19 08/12/19 08/13/19 08/14/19 23:59 23:59 23:59 23:59 Intake Total 1100 605 805 300 Balance 1100 605 805 300 Weight 154 lb 6.4 oz 152 lb Neck: Supple Negative JVD No Bruit Respiratory: Scattered Rhonchi Bilaterally Cardiovascular: S1 S2 Regular Rate and Rhythm Gastrointestinal: Soft Benign Normal Bowel Sounds Ext: No Edema Labs: CBC, BMP 08/12/19 05:50 08/14/19 06:05 Hepatic Panel Total Bilirubin 0.9 mg/dL (0.2-1) 08/14/19 06:05 AST 15 U/L (15-37) 08/14/19 06:05 ALT 11 U/L (13-61) L 08/14/19 06:05 Alkaline Phosphatase 50 U/L (45-117) 08/14/19 06:05 Albumin 1.6 g/dl (3.4-5.0) L 08/14/19 06:05 INR, PTT INR 1.21 (0.83-1.09) H 08/02/19 21:25 Assessment/Plan ASSESSMENT: 1. Pneumonia with sepsis syndrome, resolved 2. Chronic hypoxic respiratory failure referable to 3. 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 CAD with demand ischemic injury angina pectoris for conservative medical management 6. Advanced AV block post pacemaker implant 7. HTN 8. Hypercholesterolemia 9. Organic brain syndrome/dementia 10. Acute on CKD 11. Anemia of chronic disease PLAN: 1. Continue to withhold diuretics, close monitoring or renal function 2. Continue Carvedilol 3. Continue Imdur and Hydralazine/BiDil 4. Resume ARBS once renal function at baseline 5. Continue Lipitor 6. Continue ASA 7. Antibiotics as per the primary team Don Galeano M.D.
[2019-08-14 08:13] LABS: ALBUMIN 1.6 g/dl (3.4-5.0); BILIRUBIN,TOTAL 0.9 mg/dL (0.2-1); BLOOD UREA NITROGEN 40.3 mg/dL (7-18); CALCIUM 7.9 mg/dL (8.5-10.1); CREATININE 2.9 mg/dL (0.55-1.3); POTASSIUM 4.1 mmol/L (3.5-5.1); TOT PROT 5.4 g/dl (6.4-8.2)
--- NOTE | 2019-08-14 09:50 | PN ---
Progress Note (short form) - Note Progress Note: awake now No distress Vital Signs - 24 hr 08/13/19 08/13/19 08/14/19 18:00 21:00 06:00 Temperature 98.7 F Pulse Rate 78 73 Respiratory 20 20 20 Rate Blood Pressure 141/74 128/65 O2 Sat by Pulse 97 96 Oximetry (%) 08/14/19 08/14/19 10:00 14:00 Temperature 99.2 F 98.8 F Pulse Rate 67 78 Respiratory 20 Rate Blood Pressure 117/52 L 129/73 O2 Sat by Pulse 100 Oximetry (%) Current Medications Generic Name Dose Route Start Last Admin Trade Name Freq PRN Reason Stop Dose Admin Acetaminophen 650 mg 08/05/19 17:07 08/08/19 17:37 Tylenol Suppository - ME 650 mg Q6H PRN Administration FEVER Ascorbic Acid 500 mg 08/11/19 11:00 08/14/19 12:15 Vitamin C - PO Not Given BID [facility] Aspirin 81 mg 08/10/19 10:00 08/14/19 12:15 Asa - PO Not Given DAILY [facility] Atorvastatin Calcium 20 mg 08/03/19 22:00 08/13/19 22:50 Lipitor - PO 20 mg HS [facility] Administration Carvedilol 12.5 mg 08/03/19 10:00 08/14/19 12:15 Coreg - PO Not Given BID [facility] Ferrous Sulfate 325 mg 08/11/19 17:30 08/14/19 12:15 Feosol - PO Not Given BIDWM [facility] Heparin Sodium (Porcine) 5,000 unit 08/04/19 22:00 08/14/19 12:15 Heparin - SQ Not Given BID [facility] Hydralazine HCl 10 mg 08/06/19 12:15 08/14/19 12:15 Apresoline - PO Not Given BID [facility] Potassium Chloride 10 meq/ 1,005 mls @ 55 mls/hr 08/08/19 13:40 08/14/19 16: 23 Sodium Chloride IVPB 55 mls/hr Q18H [facility] Administration Isosorbide Mononitrate 30 mg 08/10/19 11:00 08/14/19 12:15 Imdur - PO Not Given DAILY [facility] Latanoprost 1 drop 08/03/19 22:00 08/13/19 22:50 Xalatan 0.005% Eye Drops - OU 1 drop HS [facility] Administration Memantine 5 mg 08/09/19 22:00 08/14/19 12:15 Namenda - PO Not Given BID [facility] Pantoprazole Sodium 40 mg 08/03/19 10:00 08/14/19 12:15 Protonix - PO Not Given DAILY [facility] Laboratory Results - last 24 hr 08/14/19 08/14/19 03:52 06:05 Sodium 137 Potassium 4.1 Chloride 110 H Carbon Dioxide 21 Anion Gap 6 L BUN 40.3 H Creatinine 2.9 H Est GFR (CKD-EPI)AfAm 21.86 Est GFR (CKD-EPI)NonAf 18.86 POC Glucometer 97 Random Glucose 73 L Calcium 7.9 L Total Bilirubin 0.9 AST 15 ALT 11 L Alkaline Phosphatase 50 Total Protein 5.4 L Albumin 1.6 L Microbiology 08/05/19 05:38 Blood Culture - Preliminary Blood - Peripheral Venous NO GROWTH OBTAINED AFTER 96 HOURS, INCUBATION TO CONTINUE FOR 1 DAYS. 08/05/19 05:14 Blood Culture - Preliminary Blood - Peripheral Venous NO GROWTH OBTAINED AFTER 96 HOURS, INCUBATION TO CONTINUE FOR 1 DAYS. S1 S2 RRR Lungs decreased breath sounds Abd- soft, obese, NT No edema PLAN Iv antibiotics dc monitor renal function -->better Neurology eval noted - on aricept check labs may need transfusion continue with meds Problem List - Problems (1) Acute on chronic combined systolic and diastolic congestive heart failure Code(s): I50.43 - ACUTE ON CHRONIC COMBINED SYSTOLIC AND DIASTOLIC HRT FAIL (2) Anemia Code(s): D64.9 - ANEMIA, UNSPECIFIED Qualifiers: Anemia type: unspecified type Qualified Code(s): D64.9 - Anemia, unspecified (3) Acute and chronic respiratory failure with hypoxia Code(s): J96.21 - ACUTE AND CHRONIC RESPIRATORY FAILURE WITH HYPOXIA (4) Acute on chronic renal failure Code(s): N17.9 - ACUTE KIDNEY FAILURE, UNSPECIFIED; N18.9 - CHRONIC KIDNEY DISEASE, UNSPECIFIED Qualifiers: Chronic kidney disease stage: stage 3 (moderate) (5) CHF (congestive heart failure) Code(s): I50.9 - HEART FAILURE, UNSPECIFIED Qualifiers: Heart failure type: combined systolic and diastolic Heart failure chronicity: chronic Qualified Code(s): I50.42 - Chronic combined systolic ( congestive) and diastolic (congestive) heart failure (6) COPD (chronic obstructive pulmonary disease) Code(s): J44.9 - CHRONIC OBSTRUCTIVE PULMONARY DISEASE, UNSPECIFIED Qualifiers: (7) Pneumonia Code(s): J18.9 - PNEUMONIA, UNSPECIFIED ORGANISM
[2019-08-14] MEDS: FERROUS SO4 325 MG TABLET (FP) PO SCH ×3 (12:01→18:07)
[2019-08-14] MEDS: ASCORBIC ACID 500 MG TABLET (FP) PO SCH ×3 (12:02→22:21)
[2019-08-14] MEDS: ASPIRIN 81 MG CHEWABLE TABLETS PO SCH ×2 (12:02→12:15)
[2019-08-14] MEDS: hydrALAZINE HCL 10 MG TABLET PO SCH ×3 (12:02→22:21)
[2019-08-14] MEDS: HEPARIN NA (PORCINE) 5,000 UNITS/ML 1ML VIAL SQ SCH ×3 (12:02→22:22)
[2019-08-14] MEDS: MEMANTINE HCL 5 MG TABLET (UD) PO SCH ×3 (12:02→22:21)
[2019-08-14] MEDS: PANTOPRAZOLE 40 MG TABLET (FP) PO SCH ×2 (12:02→12:15)
[2019-08-14] MEDS: ISOSORBIDE MONONITRATE 30 MG TAB.SR.24H (FP) PO SCH ×2 (12:02→12:15)
[2019-08-14] MEDS: CARVEDILOL 12.5 MG TABLET (FP) PO SCH ×3 (12:02→22:21)
--- NOTE | 2019-08-14 13:26 | PN ---
Progress Note, Physician History of Present Illness: events noted Chart reviewed i spoke to Neetu the daughter doesn't come to see the patient because of history of stroke in herself She told me that the patient has been getting very forgetful and aggressive at home Patient recognizes family members patient doesn't remember dates times location Patient never been to a neurologist before Patient with difficulty hearing - Current Medication List Current Medications: Active Medications Acetaminophen (Tylenol Suppository -) 650 mg [place] Q6H PRN PRN Reason: FEVER Last Admin: 08/08/19 17:37 Dose: 650 mg Ascorbic Acid (Vitamin C -) 500 mg PO BID [facility] Last Admin: 08/14/19 12:15 Dose: Not Given Aspirin (Asa -) 81 mg PO DAILY [facility] Last Admin: 08/14/19 12:15 Dose: Not Given Atorvastatin Calcium (Lipitor -) 20 mg PO HS [facility] Last Admin: 08/13/19 22:50 Dose: 20 mg Carvedilol (Coreg -) 12.5 mg PO BID [facility] Last Admin: 08/14/19 12:15 Dose: Not Given Ferrous Sulfate (Feosol -) 325 mg PO BIDWM [facility] Last Admin: 08/14/19 12:15 Dose: Not Given Heparin Sodium (Porcine) (Heparin -) 5,000 unit SQ BID [facility] Last Admin: 08/14/19 12:15 Dose: Not Given Hydralazine HCl (Apresoline -) 10 mg PO BID [facility] Last Admin: 08/14/19 12:15 Dose: Not Given Potassium Chloride 10 meq/ (Sodium Chloride) 1,005 mls @ 55 mls/hr IVPB Q18H [facility] Last Admin: 08/13/19 00:22 Dose: 55 mls/hr Isosorbide Mononitrate (Imdur -) 30 mg PO DAILY [facility] Last Admin: 08/14/19 12:15 Dose: Not Given Latanoprost (Xalatan 0.005% Eye Drops -) 1 drop OU HS [facility] Last Admin: 08/13/19 22:50 Dose: 1 drop Memantine (Namenda -) 5 mg PO BID [facility] Last Admin: 08/14/19 12:15 Dose: Not Given Pantoprazole Sodium (Protonix -) 40 mg PO DAILY [facility] Last Admin: 08/14/19 12:15 Dose: Not Given - Objective Vital Signs: Vital Signs Temperature 98.7 F 08/14/19 06:00 Pulse Rate 73 08/14/19 06:00 Respiratory Rate 20 08/14/19 06:00 Blood Pressure 128/65 08/14/19 06:00 O2 Sat by Pulse Oximetry (%) 96 08/14/19 06:00 Constitutional: Yes: Well Nourished Eyes: Yes: WNL Neurological: Yes: Alert, Oriented, Babinski positive ...Motor Strength: WNL Labs: CBC, BMP 08/12/19 05:50 08/14/19 06:05 INR, PTT INR 1.21 (0.83-1.09) H 08/02/19 21:25 Problem List - Problems (1) Dementia Assessment/Plan: advanced dementia late onset Alzheimer 1. Neuro checks. 2. Increase Namenda to 10 mg twice daily. 3. DVT prophylaxis Code(s): F03.90 - UNSPECIFIED DEMENTIA WITHOUT BEHAVIORAL DISTURBANCE
--- NOTE | 2019-08-14 15:21 | PN ---
Progress Note, Physician History of Present Illness: No new events. Pt arousable without respiratory distress. - Current Medication List Current Medications: Active Medications Acetaminophen (Tylenol Suppository -) 650 mg [place] Q6H PRN PRN Reason: FEVER Last Admin: 08/08/19 17:37 Dose: 650 mg Ascorbic Acid (Vitamin C -) 500 mg PO BID [facility] Last Admin: 08/14/19 12:15 Dose: Not Given Aspirin (Asa -) 81 mg PO DAILY [facility] Last Admin: 08/14/19 12:15 Dose: Not Given Atorvastatin Calcium (Lipitor -) 20 mg PO HS [facility] Last Admin: 08/13/19 22:50 Dose: 20 mg Carvedilol (Coreg -) 12.5 mg PO BID [facility] Last Admin: 08/14/19 12:15 Dose: Not Given Ferrous Sulfate (Feosol -) 325 mg PO BIDWM [facility] Last Admin: 08/14/19 12:15 Dose: Not Given Heparin Sodium (Porcine) (Heparin -) 5,000 unit SQ BID [facility] Last Admin: 08/14/19 12:15 Dose: Not Given Hydralazine HCl (Apresoline -) 10 mg PO BID [facility] Last Admin: 08/14/19 12:15 Dose: Not Given Potassium Chloride 10 meq/ (Sodium Chloride) 1,005 mls @ 55 mls/hr IVPB Q18H [facility] Last Admin: 08/13/19 00:22 Dose: 55 mls/hr Isosorbide Mononitrate (Imdur -) 30 mg PO DAILY [facility] Last Admin: 08/14/19 12:15 Dose: Not Given Latanoprost (Xalatan 0.005% Eye Drops -) 1 drop OU HS [facility] Last Admin: 08/13/19 22:50 Dose: 1 drop Memantine (Namenda -) 5 mg PO BID [facility] Last Admin: 08/14/19 12:15 Dose: Not Given Pantoprazole Sodium (Protonix -) 40 mg PO DAILY [facility] Last Admin: 08/14/19 12:15 Dose: Not Given - Objective Vital Signs: Vital Signs Temperature 99.2 F 08/14/19 10:00 Pulse Rate 67 08/14/19 10:00 Respiratory Rate 20 08/14/19 10:00 Blood Pressure 117/52 L 08/14/19 10:00 O2 Sat by Pulse Oximetry (%) 100 08/14/19 10:00 Constitutional: Yes: No Distress Cardiovascular: Yes: Regular Rate and Rhythm Respiratory: Yes: Wheezes Gastrointestinal: Yes: Normal Bowel Sounds, Soft Genitourinary: Yes: WNL Neurological: Yes: Weakness Labs: CBC, BMP 08/12/19 05:50 08/14/19 06:05 INR, PTT INR 1.21 (0.83-1.09) H 08/02/19 21:25 Problem List - Problems (1) Acute on chronic combined systolic and diastolic congestive heart failure Code(s): I50.43 - ACUTE ON CHRONIC COMBINED SYSTOLIC AND DIASTOLIC HRT FAIL (2) CKD (chronic kidney disease) Code(s): N18.9 - CHRONIC KIDNEY DISEASE, UNSPECIFIED Qualifiers: Chronic kidney disease stage: unspecified stage Qualified Code(s): N18.9 - Chronic kidney disease, unspecified (3) UTI (urinary tract infection) Code(s): N39.0 - URINARY TRACT INFECTION, SITE NOT SPECIFIED Qualifiers: Urinary tract infection type: site unspecified Hematuria presence: without hematuria Qualified Code(s): N39.0 - Urinary tract infection, site not specified (4) Acute and chronic respiratory failure Code(s): J96.20 - ACUTE AND CHR RESP FAILURE, UNSP W HYPOXIA OR HYPERCAPNIA Qualifiers: Respiratory failure complication: hypoxia Qualified Code(s): J96.21 - Acute and chronic respiratory failure with hypoxia (5) COPD (chronic obstructive pulmonary disease) Code(s): J44.9 - CHRONIC OBSTRUCTIVE PULMONARY DISEASE, UNSPECIFIED Qualifiers: (6) Cardiac pacemaker in situ Code(s): Z95.0 - PRESENCE OF CARDIAC PACEMAKER (7) Diabetes mellitus Code(s): E11.9 - TYPE 2 DIABETES MELLITUS WITHOUT COMPLICATIONS Qualifiers: Diabetes mellitus type: type 2 Diabetes 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: without marine electronics repairer use Diabetes mellitus complication status: with unspecified complications (8) Hyperlipidemia Code(s): E78.5 - HYPERLIPIDEMIA, UNSPECIFIED Qualifiers: Hyperlipidemia type: pure hypercholesterolemia Qualified Code(s): E78.00 - Pure hypercholesterolemia, unspecified (9) Hypertension Code(s): I10 - ESSENTIAL (PRIMARY) HYPERTENSION Qualifiers: Hypertension type: essential hypertension Qualified Code(s): I10 - Essential (primary) hypertension Assessment/Plan UTI CHF COPD acute on chronic resp failure CAD s/p PPM LAURA/CKD - improving DM -- completed course of antibiotics, continue monitor vitals currently stable
[2019-08-14] MEDS: POTASSIUM CHLORIDE 10 MEQ in SODIUM CHLORIDE 0.45% 1,000 ML IVPB SCH (16:23)
--- NOTE | 2019-08-14 21:10 | PN ---
Progress Note (short form) - Note Progress Note: 1. LAURA 2. lethargy 3. recent pna and sepsis 4. ckd 5. copd 6. dm 7. hx htn 8. dementia Current Medications Acetaminophen (Tylenol Suppository -) 650 mg SD Q6H PRN PRN Reason: FEVER Last Admin: 08/08/19 17:37 Dose: 650 mg Ascorbic Acid (Vitamin C -) 500 mg PO BID [facility] Last Admin: 08/14/19 12:15 Dose: Not Given Aspirin (Asa -) 81 mg PO DAILY [facility] Last Admin: 08/14/19 12:15 Dose: Not Given Atorvastatin Calcium (Lipitor -) 20 mg PO HS [facility] Last Admin: 08/13/19 22:50 Dose: 20 mg Carvedilol (Coreg -) 12.5 mg PO BID [facility] Last Admin: 08/14/19 12:15 Dose: Not Given Ferrous Sulfate (Feosol -) 325 mg PO BIDWM [facility] Last Admin: 08/14/19 18:07 Dose: Not Given Heparin Sodium (Porcine) (Heparin -) 5,000 unit SQ BID [facility] Last Admin: 08/14/19 12:15 Dose: Not Given Hydralazine HCl (Apresoline -) 10 mg PO BID [facility] Last Admin: 08/14/19 12:15 Dose: Not Given Potassium Chloride 10 meq/ (Sodium Chloride) 1,005 mls @ 55 mls/hr IVPB Q18H [facility] Last Admin: 08/14/19 16:23 Dose: 55 mls/hr Isosorbide Mononitrate (Imdur -) 30 mg PO DAILY [facility] Last Admin: 08/14/19 12:15 Dose: Not Given Latanoprost (Xalatan 0.005% Eye Drops -) 1 drop OU HS [facility] Last Admin: 08/13/19 22:50 Dose: 1 drop Memantine (Namenda -) 5 mg PO BID [facility] Last Admin: 08/14/19 12:15 Dose: Not Given Pantoprazole Sodium (Protonix -) 40 mg PO DAILY [facility] Last Admin: 08/14/19 12:15 Dose: Not Given Last Vital Signs Temp Pulse Resp BP Pulse Ox 98.8 F 74 20 133/62 100 08/14/19 14:00 08/14/19 18:00 08/14/19 18:00 08/14/19 18:00 08/14/19 10:00 lungs clear heart reg abd soft nontender CBC, BMP 08/14/19 06:05 CBC, BMP 08/12/19 05:50 08/12/19 05:50 IMP- HF hemodynamically stable LAURA improving anemia Plan - cont fluids - repeat labs in am - 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
[2019-08-14] MEDS: ATORVASTATIN CA 20 MG TABLET (FP) PO SCH (22:21)
[2019-08-14] MEDS: LATANOPROST 0.005% OPHTH SOLN 2.5ML BOTTLE OU SCH (22:30)
[2019-08-15 07:38] LABS: BASO % 0.8 % (0-2.0); EOS % 4.5 % (0-4.5); HEMOGLOBIN 7.1 GM/dL (11.7-16.9); LYMPH % 7.5 % (8-40); MCH 28.5 pg (25.7-33.7); MCHC 33.8 g/dl (32.0-35.9); MEAN CELL VOLUME 84.5 fl (80-96); MEAN PLT VOLUME 8.6 fl (7.5-11.1); MONO % 8.3 % (3.8-10.2); NEUT % 78.9 % (42.8-82.8); PLATELET COUNT 246 K/MM3 (134-434); RBC 2.48 M/mm3 (4.00-5.60); RDW 17.5 % (11.9-15.9); WHITE BLOOD COUNT 6.4 K/mm3 (4.0-10.0)
[2019-08-15 08:07] LABS: ALBUMIN 1.6 g/dl (3.4-5.0); BILIRUBIN,TOTAL 0.7 mg/dL (0.2-1); BLOOD UREA NITROGEN 37.5 mg/dL (7-18); CREATININE 2.7 mg/dL (0.55-1.3); TOT PROT 5.3 g/dl (6.4-8.2)
--- NOTE | 2019-08-15 10:30 | PN ---
Progress Note (short form) - Note Progress Note: pt seen/ examined. chart reviewed awake/ comfortable no distress Not talking Vital Signs Temp 97.8 F 08/15/19 09:50 Pulse 75 08/15/19 09:50 Resp 20 08/15/19 09:50 BP 146/75 08/15/19 09:50 Pulse Ox 98 08/14/19 22:00 Intake & Output 08/14/19 08/14/19 08/15/19 11:59 23:59 11:59 Intake Total 300 495 Balance 300 495 Weight 158 lb Intake: IV 200 495 SL 2 200 495 Oral 100 Other: Voiding Method Diaper Diaper Diaper # Unmeasured Voids Anthony 200 1 Void 1 2 1 Bowel Movement Yes # Bowel Movements 1 Weight Measurement Method Patient Lift Scale Patient Lift Scale Active Medications Acetaminophen (Tylenol Suppository -) 650 mg [place] Q6H PRN PRN Reason: FEVER Last Admin: 08/08/19 17:37 Dose: 650 mg Ascorbic Acid (Vitamin C -) 500 mg PO BID [facility] Last Admin: 08/14/19 22:21 Dose: 500 mg Aspirin (Asa -) 81 mg PO DAILY [facility] Last Admin: 08/14/19 12:15 Dose: Not Given Atorvastatin Calcium (Lipitor -) 20 mg PO HS [facility] Last Admin: 08/14/19 22:21 Dose: 20 mg Carvedilol (Coreg -) 12.5 mg PO BID [facility] Last Admin: 08/14/19 22:21 Dose: 12.5 mg Ferrous Sulfate (Feosol -) 325 mg PO BIDWM [facility] Last Admin: 08/14/19 18:07 Dose: Not Given Heparin Sodium (Porcine) (Heparin -) 5,000 unit SQ BID [facility] Last Admin: 08/14/19 22:22 Dose: 5,000 unit Hydralazine HCl (Apresoline -) 10 mg PO BID [facility] Last Admin: 08/14/19 22:21 Dose: 10 mg Potassium Chloride 10 meq/ (Sodium Chloride) 1,005 mls @ 55 mls/hr IVPB Q18H [facility] Last Admin: 08/14/19 16:23 Dose: 55 mls/hr Isosorbide Mononitrate (Imdur -) 30 mg PO DAILY [facility] Last Admin: 08/14/19 12:15 Dose: Not Given Latanoprost (Xalatan 0.005% Eye Drops -) 1 drop OU HS [facility] Last Admin: 08/14/19 22:30 Dose: 1 drop Memantine (Namenda -) 5 mg PO BID [facility] Last Admin: 08/14/19 22:21 Dose: 5 mg Pantoprazole Sodium (Protonix -) 40 mg PO DAILY [facility] Last Admin: 08/14/19 12:15 Dose: Not Given CBC, BMP 08/15/19 06:50 08/15/19 06:50 physical Exam S1 S2 RRR Lungs decreased breath sounds Abd- soft, obese, NT No edema PLAN Iv antibiotics dc monitor renal function -->better Neurology eval noted - on aricept check labs may need transfusion continue with meds Continue present care Encourage eating Transfuse prn - if H <7. Monitor amrita D/w Dr. Rodriguez also today GI to follow Will follow oob- chair
--- NOTE | 2019-08-15 10:37 | PN ---
Progress Note, Physician Chief Complaint: Events noted Lethargic History of Present Illness: Patient was seen and examined. Nonverbal. Chart was reviewed - Current Medication List Current Medications: Active Medications Acetaminophen (Tylenol Suppository -) 650 mg [place] Q6H PRN PRN Reason: FEVER Last Admin: 08/08/19 17:37 Dose: 650 mg Ascorbic Acid (Vitamin C -) 500 mg PO BID [facility] Last Admin: 08/14/19 22:21 Dose: 500 mg Aspirin (Asa -) 81 mg PO DAILY [facility] Last Admin: 08/14/19 12:15 Dose: Not Given Atorvastatin Calcium (Lipitor -) 20 mg PO HS [facility] Last Admin: 08/14/19 22:21 Dose: 20 mg Carvedilol (Coreg -) 12.5 mg PO BID [facility] Last Admin: 08/14/19 22:21 Dose: 12.5 mg Ferrous Sulfate (Feosol -) 325 mg PO BIDWM [facility] Last Admin: 08/14/19 18:07 Dose: Not Given Heparin Sodium (Porcine) (Heparin -) 5,000 unit SQ BID [facility] Last Admin: 08/14/19 22:22 Dose: 5,000 unit Hydralazine HCl (Apresoline -) 10 mg PO BID [facility] Last Admin: 08/14/19 22:21 Dose: 10 mg Potassium Chloride 10 meq/ (Sodium Chloride) 1,005 mls @ 55 mls/hr IVPB Q18H [facility] Last Admin: 08/14/19 16:23 Dose: 55 mls/hr Isosorbide Mononitrate (Imdur -) 30 mg PO DAILY [facility] Last Admin: 08/14/19 12:15 Dose: Not Given Latanoprost (Xalatan 0.005% Eye Drops -) 1 drop OU HS [facility] Last Admin: 08/14/19 22:30 Dose: 1 drop Memantine (Namenda -) 5 mg PO BID [facility] Last Admin: 08/14/19 22:21 Dose: 5 mg Pantoprazole Sodium (Protonix -) 40 mg PO DAILY [facility] Last Admin: 08/14/19 12:15 Dose: Not Given - Objective Vital Signs: Vital Signs Temperature 97.8 F 08/15/19 09:50 Pulse Rate 75 08/15/19 09:50 Respiratory Rate 20 08/15/19 09:50 Blood Pressure 146/75 08/15/19 09:50 O2 Sat by Pulse Oximetry (%) 98 08/14/19 22:00 Neck: Yes: Supple Cardiovascular: Yes: Regular Rate and Rhythm, S1, S2 Respiratory: Yes: Rhonchi Gastrointestinal: Yes: Normal Bowel Sounds, Soft. No: Tenderness Edema: No Labs: CBC, BMP 08/15/19 06:50 08/15/19 06:50 Problem List - Problems (1) Acute on chronic combined systolic and diastolic congestive heart failure Code(s): I50.43 - ACUTE ON CHRONIC COMBINED SYSTOLIC AND DIASTOLIC HRT FAIL (2) Anemia Code(s): D64.9 - ANEMIA, UNSPECIFIED Qualifiers: Anemia type: unspecified type Qualified Code(s): D64.9 - Anemia, unspecified (3) CKD (chronic kidney disease) Code(s): N18.9 - CHRONIC KIDNEY DISEASE, UNSPECIFIED Qualifiers: Chronic kidney disease stage: unspecified stage Qualified Code(s): N18.9 - Chronic kidney disease, unspecified (4) Dementia Code(s): F03.90 - UNSPECIFIED DEMENTIA WITHOUT BEHAVIORAL DISTURBANCE (5) Sepsis Code(s): A41.9 - SEPSIS, UNSPECIFIED ORGANISM (6) UTI (urinary tract infection) Code(s): N39.0 - URINARY TRACT INFECTION, SITE NOT SPECIFIED Qualifiers: Urinary tract infection type: site unspecified Hematuria presence: without hematuria Qualified Code(s): N39.0 - Urinary tract infection, site not specified (7) Acute and chronic respiratory failure Code(s): J96.20 - ACUTE AND CHR RESP FAILURE, UNSP W HYPOXIA OR HYPERCAPNIA Qualifiers: Respiratory failure complication: hypoxia Qualified Code(s): J96.21 - Acute and chronic respiratory failure with hypoxia (8) Acute and chronic respiratory failure with hypoxia Code(s): J96.21 - ACUTE AND CHRONIC RESPIRATORY FAILURE WITH HYPOXIA (9) Acute on chronic renal failure Code(s): N17.9 - ACUTE KIDNEY FAILURE, UNSPECIFIED; N18.9 - CHRONIC KIDNEY DISEASE, UNSPECIFIED Qualifiers: Chronic kidney disease stage: stage 3 (moderate) (10) COPD (chronic obstructive pulmonary disease) Code(s): J44.9 - CHRONIC OBSTRUCTIVE PULMONARY DISEASE, UNSPECIFIED Qualifiers: (11) Cardiac pacemaker in situ Code(s): Z95.0 - PRESENCE OF CARDIAC PACEMAKER (12) Diastolic dysfunction without heart failure Code(s): I51.9 - HEART DISEASE, UNSPECIFIED (13) Generalized weakness Code(s): R53.1 - WEAKNESS (14) High-grade atrioventricular block Code(s): I44.39 - OTHER ATRIOVENTRICULAR BLOCK (15) ASHD (arteriosclerotic heart disease) Code(s): I25.10 - ATHSCL HEART DISEASE OF [place] CORONARY ARTERY W/O ANG PCTRS (16) Diabetes mellitus Code(s): E11.9 - TYPE 2 DIABETES MELLITUS WITHOUT COMPLICATIONS Qualifiers: Diabetes mellitus type: type 2 Diabetes mellitus intermediate insulin use: without intermediate use Diabetes mellitus complication status: with unspecified complications (17) Hyperlipidemia Code(s): E78.5 - HYPERLIPIDEMIA, UNSPECIFIED Qualifiers: Hyperlipidemia type: pure hypercholesterolemia Qualified Code(s): E78.00 - Pure hypercholesterolemia, unspecified (18) Hypertension Code(s): I10 - ESSENTIAL (PRIMARY) HYPERTENSION Qualifiers: Hypertension type: essential hypertension Qualified Code(s): I10 - Essential (primary) hypertension Assessment/Plan 1. Pneumonia with sepsis syndrome 2. Chronic hypoxic respiratory failure 3. 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 COPD - steroid and home O2-dependent, with acute exacerbation 5. CAD with demand ischemic injury angina pectoris for conservative medical management 6. Advanced AV block post pacemaker implant 7. HTN 8. Hypercholesterolemia 9. Organic brain syndrome/dementia 10. Acute on CKD 11. Anemia of chronic disease PLAN: 1. Continue to withhold diuretics and close monitoring or renal function 2. Continue Carvedilol 3. Continue Imdur and Hydralazine 4. Resume ARBS once renal function at baseline 5. Continue Lipitor 6. Continue BISI Tillman MD
[2019-08-15] MEDS: FERROUS SO4 325 MG TABLET (FP) PO SCH ×2 (12:08→17:49)
[2019-08-15] MEDS: HEPARIN NA (PORCINE) 5,000 UNITS/ML 1ML VIAL SQ SCH ×2 (12:09→22:12)
[2019-08-15] MEDS: ASPIRIN 81 MG CHEWABLE TABLETS PO SCH (12:10)
[2019-08-15] MEDS: ISOSORBIDE MONONITRATE 30 MG TAB.SR.24H (FP) PO SCH (12:10)
[2019-08-15] MEDS: ASCORBIC ACID 500 MG TABLET (FP) PO SCH ×2 (12:10→22:12)
[2019-08-15] MEDS: PANTOPRAZOLE 40 MG TABLET (FP) PO SCH (12:10)
[2019-08-15] MEDS: MEMANTINE HCL 5 MG TABLET (UD) PO SCH ×2 (12:10→22:12)
[2019-08-15] MEDS: hydrALAZINE HCL 10 MG TABLET PO SCH ×2 (12:10→22:12)
[2019-08-15] MEDS: CARVEDILOL 12.5 MG TABLET (FP) PO SCH ×2 (12:10→22:12)
--- NOTE | 2019-08-15 12:54 | PN ---
Progress Note, Physician History of Present Illness: Pt seen and examined at bedside. He appears comfortable. - Current Medication List Current Medications: Active Medications Acetaminophen (Tylenol Suppository -) 650 mg [place] Q6H PRN PRN Reason: FEVER Last Admin: 08/08/19 17:37 Dose: 650 mg Ascorbic Acid (Vitamin C -) 500 mg PO BID [facility] Last Admin: 08/15/19 12:10 Dose: 500 mg Aspirin (Asa -) 81 mg PO DAILY [facility] Last Admin: 08/15/19 12:10 Dose: 81 mg Atorvastatin Calcium (Lipitor -) 20 mg PO HS [facility] Last Admin: 08/14/19 22:21 Dose: 20 mg Carvedilol (Coreg -) 12.5 mg PO BID [facility] Last Admin: 08/15/19 12:10 Dose: 12.5 mg Ferrous Sulfate (Feosol -) 325 mg PO BIDWM [facility] Last Admin: 08/15/19 12:08 Dose: Not Given Heparin Sodium (Porcine) (Heparin -) 5,000 unit SQ BID [facility] Last Admin: 08/15/19 12:09 Dose: 5,000 unit Hydralazine HCl (Apresoline -) 10 mg PO BID [facility] Last Admin: 08/15/19 12:10 Dose: 10 mg Potassium Chloride 10 meq/ (Sodium Chloride) 1,005 mls @ 55 mls/hr IVPB Q18H [facility] Last Admin: 08/14/19 16:23 Dose: 55 mls/hr Isosorbide Mononitrate (Imdur -) 30 mg PO DAILY [facility] Last Admin: 08/15/19 12:10 Dose: 30 mg Latanoprost (Xalatan 0.005% Eye Drops -) 1 drop OU HS [facility] Last Admin: 08/14/19 22:30 Dose: 1 drop Memantine (Namenda -) 5 mg PO BID [facility] Last Admin: 08/15/19 12:10 Dose: 5 mg Pantoprazole Sodium (Protonix -) 40 mg PO DAILY [facility] Last Admin: 08/15/19 12:10 Dose: 40 mg - Objective Vital Signs: Vital Signs Temperature 97.8 F 08/15/19 09:50 Pulse Rate 75 08/15/19 09:50 Respiratory Rate 20 08/15/19 09:50 Blood Pressure 146/75 08/15/19 09:50 O2 Sat by Pulse Oximetry (%) 98 08/15/19 10:00 Constitutional: Yes: Calm Eyes: Yes: Conjunctiva Clear HENT: Yes: Atraumatic Neck: Yes: Supple Cardiovascular: Yes: S1, S2 Respiratory: Yes: CTA Bilaterally Gastrointestinal: Yes: Normal Bowel Sounds, Soft Genitourinary: Yes: WNL Musculoskeletal: Yes: WNL Edema: No Neurological: Yes: Confusion Labs: CBC, BMP 08/15/19 06:50 08/15/19 06:50 INR, PTT INR 1.21 (0.83-1.09) H 08/02/19 21:25 Problem List - Problems (1) CKD (chronic kidney disease) Code(s): N18.9 - CHRONIC KIDNEY DISEASE, UNSPECIFIED Qualifiers: Chronic kidney disease stage: unspecified stage Qualified Code(s): N18.9 - Chronic kidney disease, unspecified (2) Acute kidney injury Code(s): N17.9 - ACUTE KIDNEY FAILURE, UNSPECIFIED Assessment/Plan Current Medications Generic Name Dose Route Start Last Admin Trade Name Freq PRN Reason Stop Dose Admin Acetaminophen 650 mg 08/05/19 17:07 08/08/19 17:37 Tylenol Suppository - [place] 650 mg Q6H PRN Administration FEVER Ascorbic Acid 500 mg 08/11/19 11:00 08/15/19 12:10 Vitamin C - PO 500 mg BID DINESH Administration Aspirin 81 mg 08/10/19 10:00 08/15/19 12:10 Asa - PO 81 mg DAILY [facility]INESH Administration Atorvastatin Calcium 20 mg 08/03/19 22:00 08/14/19 22:21 Lipitor - PO 20 mg HS [facility]INESH Administration Carvedilol 12.5 mg 08/03/19 10:00 08/15/19 12:10 Coreg - PO 12.5 mg BID [facility]INESH Administration Ferrous Sulfate 325 mg 08/11/19 17:30 08/15/19 12:08 Feosol - PO Not Given BIDWM [facility]INESH Heparin Sodium (Porcine) 5,000 unit 08/04/19 22:00 08/15/19 12:09 Heparin - SQ 5,000 unit BID [facility]INESH Administration Hydralazine HCl 10 mg 08/06/19 12:15 08/15/19 12:10 Apresoline - PO 10 mg BID [facility] Administration Potassium Chloride 10 meq/ 1,005 mls @ 55 mls/hr 08/08/19 13:40 11/24/19 16: 23 Sodium Chloride IVPB 55 mls/hr Q18H [facility]INESH Administration Isosorbide Mononitrate 30 mg 08/10/19 11:00 08/15/19 12:10 Imdur - PO 30 mg DAILY [facility] Administration Latanoprost 1 drop 08/03/19 22:00 08/14/19 22:30 Xalatan 0.005% Eye Drops - OU 1 drop HS [facility] Administration Memantine 5 mg 08/09/19 22:00 08/15/19 12:10 Namenda - PO 5 mg BID [facility] Administration Pantoprazole Sodium 40 mg 08/03/19 10:00 08/15/19 12:10 Protonix - PO 40 mg DAILY [facility] Administration Impression 1. LAURA 2. lethargy 3. recent pna and sepsis 4. ckd 5. copd 6. dm 7. hx htn 8. dementia Plan - renal function is improving - cont with fluids - no great change in mental status - avoid nephrotoxins - encourage po intake - monitor bp
--- NOTE | 2019-08-15 15:05 | PN ---
Progress Note, Physician History of Present Illness: continues to improve no new issues still confused - Current Medication List Current Medications: Active Medications Acetaminophen (Tylenol Suppository -) 650 mg [place] Q6H PRN PRN Reason: FEVER Last Admin: 08/08/19 17:37 Dose: 650 mg Ascorbic Acid (Vitamin C -) 500 mg PO BID [facility] Last Admin: 08/15/19 12:10 Dose: 500 mg Aspirin (Asa -) 81 mg PO DAILY [facility] Last Admin: 08/15/19 12:10 Dose: 81 mg Atorvastatin Calcium (Lipitor -) 20 mg PO HS [facility] Last Admin: 08/14/19 22:21 Dose: 20 mg Carvedilol (Coreg -) 12.5 mg PO BID [facility] Last Admin: 08/15/19 12:10 Dose: 12.5 mg Ferrous Sulfate (Feosol -) 325 mg PO BIDWM [facility] Last Admin: 08/15/19 12:08 Dose: Not Given Heparin Sodium (Porcine) (Heparin -) 5,000 unit SQ BID [facility] Last Admin: 08/15/19 12:09 Dose: 5,000 unit Hydralazine HCl (Apresoline -) 10 mg PO BID [facility] Last Admin: 08/15/19 12:10 Dose: 10 mg Potassium Chloride 10 meq/ (Sodium Chloride) 1,005 mls @ 55 mls/hr IVPB Q18H [facility] Last Admin: 08/14/19 16:23 Dose: 55 mls/hr Isosorbide Mononitrate (Imdur -) 30 mg PO DAILY [facility] Last Admin: 08/15/19 12:10 Dose: 30 mg Latanoprost (Xalatan 0.005% Eye Drops -) 1 drop OU HS [facility] Last Admin: 08/14/19 22:30 Dose: 1 drop Memantine (Namenda -) 5 mg PO BID [facility] Last Admin: 08/15/19 12:10 Dose: 5 mg Pantoprazole Sodium (Protonix -) 40 mg PO DAILY [facility] Last Admin: 08/15/19 12:10 Dose: 40 mg - Objective Vital Signs: Vital Signs Temperature 97.8 F 08/15/19 09:50 Pulse Rate 75 08/15/19 09:50 Respiratory Rate 20 08/15/19 09:50 Blood Pressure 146/75 08/15/19 09:50 O2 Sat by Pulse Oximetry (%) 98 08/15/19 10:00 Constitutional: Yes: No Distress, Calm Cardiovascular: Yes: S1, S2 Respiratory: Yes: Regular, CTA Bilaterally Gastrointestinal: Yes: Normal Bowel Sounds, Soft Musculoskeletal: Yes: WNL Extremities: Yes: WNL Neurological: Yes: Alert, Other Psychiatric: Yes: Other Labs: CBC, BMP 08/15/19 06:50 08/15/19 06:50 INR, PTT INR 1.21 (0.83-1.09) H 08/02/19 21:25 Assessment/Plan Problem List - Problems (1) Acute on chronic combined systolic and diastolic congestive heart failure Code(s): I50.43 - ACUTE ON CHRONIC COMBINED SYSTOLIC AND DIASTOLIC HRT FAIL (2) Anemia Code(s): D64.9 - ANEMIA, UNSPECIFIED Qualifiers: Anemia type: unspecified type Qualified Code(s): D64.9 - Anemia, unspecified (3) Acute and chronic respiratory failure with hypoxia Code(s): J96.21 - ACUTE AND CHRONIC RESPIRATORY FAILURE WITH HYPOXIA (4) Acute on chronic renal failure Code(s): N17.9 - ACUTE KIDNEY FAILURE, UNSPECIFIED; N18.9 - CHRONIC KIDNEY DISEASE, UNSPECIFIED Qualifiers: Chronic kidney disease stage: stage 3 (moderate) (5) CHF (congestive heart failure) Code(s): I50.9 - HEART FAILURE, UNSPECIFIED Qualifiers: Heart failure type: combined systolic and diastolic Heart failure chronicity: chronic Qualified Code(s): I50.42 - Chronic combined systolic ( congestive) and diastolic (congestive) heart failure (6) COPD (chronic obstructive pulmonary disease) Code(s): J44.9 - CHRONIC OBSTRUCTIVE PULMONARY DISEASE, UNSPECIFIED Qualifiers: (7) Pneumonia Code(s): J18.9 - PNEUMONIA, UNSPECIFIED ORGANISM plan continue current mgmt nutrition rest as per the team monitor
[2019-08-15] MEDS: POTASSIUM CHLORIDE 10 MEQ in SODIUM CHLORIDE 0.45% 1,000 ML IVPB SCH (15:47)
[2019-08-15] MEDS: ATORVASTATIN CA 20 MG TABLET (FP) PO SCH (22:12)
[2019-08-15] MEDS: LATANOPROST 0.005% OPHTH SOLN 2.5ML BOTTLE OU SCH (22:12)
--- NOTE | 2019-08-16 06:07 | HOSP ---
Subjective - Review of Symptoms Events since last encounter: Hospitalist Encounter Notified by the RN that the patient reports having SOB, and his Spo2 desaturated to 92-93% on NC. Was asked to assess Arrived to bedside, patient is awake, alert to baseline. Nods head up and down when asked if he is SOB PE performed see EMR Plan: Stat CXR r/o worsening HF Hold IVF for now Stat ABG Increase O2 HOB elevated Pulmonary: Yes: Dyspnea Physical Examination Vital Signs: Vital Signs Temperature 98.7 F 08/16/19 01:55 Pulse Rate 81 08/16/19 01:55 Respiratory Rate 20 08/16/19 01:55 Blood Pressure 136/71 08/16/19 01:55 O2 Sat by Pulse Oximetry (%) 96 08/15/19 21:36 Constitutional: Yes: Diaphoresis, Mild Distress Eyes: Yes: Conjunctiva Clear, PERRL HENT: Yes: WNL, Atraumatic, Normocephalic Neck: Yes: WNL, Supple, Trachea Midline Cardiovascular: Yes: Regular Rate and Rhythm, S1, S2 Respiratory: Yes: Accessory Muscle Use, Cough, Diminished, On Nasal O2, Rhonchi , SOB, Wheezes Gastrointestinal: Yes: Normal Bowel Sounds, Soft Breast(s): Yes: WNL Musculoskeletal: Yes: WNL Extremities: Yes: WNL Neurological: Yes: Alert, Confusion, Cran Nerves II-XII Intact Psychiatric: Yes: Alert Labs: CBC, BMP 08/15/19 06:50 08/15/19 06:50 Hospitalist Encounter Assessment: This is a 84 y/o man with a PMHx of Dementia, COPD, HTN, HLD, CHF (reduced EF), s/p PPM. Admitted to Telemetry for CHF Exacerbation, Pneumonia, Symptomatic Anemia, Acute on Chronic CKD, UTI for further evaluation of their emergent condition. Outcome: Chest Xray pending ABG reviewed- 7.42//113/17.2/98.3 Will continue with 4LNC Critical Care Total Critical Care Time (in minutes): 32 Critical Care Statement: The care of this patient involved high complexity decision making to prevent further life threatening deterioration of the patient 's condition and/or to evaluate & treat vital organ system(s) failure or risk of failure.
[2019-08-16 06:43] LABS: ARTERIAL BLD GAS O2 SATURATION 98.3 % (95-98); ARTERIAL BLOOD GAS BASE EXCESS -6.2 meq/l (-2-2); ARTERIAL BLOOD GAS PO2 113 mmHg (80-100); ARTERIAL BLOOD GAS pH 7.42 (7.35-7.45)
[2019-08-16 06:48] LABS: ALLENS TEST POSITIVE
[2019-08-16 07:18] LABS: BASO % 1.1 % (0-2.0); EOS % 4.3 % (0-4.5); HEMATOCRIT 23.1 % (35.4-49); HEMOGLOBIN 7.8 GM/dL (11.7-16.9); LYMPH % 10.8 % (8-40); MCH 28.2 pg (25.7-33.7); MCHC 33.5 g/dl (32.0-35.9); MEAN PLT VOLUME 8.4 fl (7.5-11.1); MONO % 8.9 % (3.8-10.2); NEUT % 74.9 % (42.8-82.8); PLATELET COUNT 297 K/MM3 (134-434); RBC 2.75 M/mm3 (4.00-5.60); RDW 17.8 % (11.9-15.9); WHITE BLOOD COUNT 5.8 K/mm3 (4.0-10.0)
[2019-08-16 07:47] LABS: ALBUMIN 1.8 g/dl (3.4-5.0); BILIRUBIN,TOTAL 0.5 mg/dL (0.2-1); CALCIUM 8.2 mg/dL (8.5-10.1); CREATININE 2.7 mg/dL (0.55-1.3); POTASSIUM 4.6 mmol/L (3.5-5.1); TOT PROT 5.9 g/dl (6.4-8.2)
--- NOTE | 2019-08-16 10:26 | PN ---
Progress Note, Physician Chief Complaint: Events noted Lethargic, but arousable History of Present Illness: Patient was seen and examined. Nonverbal. Chart was reviewed - Current Medication List Current Medications: Active Medications Acetaminophen (Tylenol Suppository -) 650 mg [place] Q6H PRN PRN Reason: FEVER Last Admin: 08/08/19 17:37 Dose: 650 mg Ascorbic Acid (Vitamin C -) 500 mg PO BID [facility] Last Admin: 08/15/19 22:12 Dose: 500 mg Aspirin (Asa -) 81 mg PO DAILY [facility] Last Admin: 08/15/19 12:10 Dose: 81 mg Atorvastatin Calcium (Lipitor -) 20 mg PO HS [facility] Last Admin: 08/15/19 22:12 Dose: 20 mg Carvedilol (Coreg -) 12.5 mg PO BID [facility] Last Admin: 08/15/19 22:12 Dose: 12.5 mg Ferrous Sulfate (Feosol -) 325 mg PO BIDWM [facility] Last Admin: 08/15/19 17:49 Dose: Not Given Heparin Sodium (Porcine) (Heparin -) 5,000 unit SQ BID [facility] Last Admin: 08/15/19 22:12 Dose: 5,000 unit Hydralazine HCl (Apresoline -) 10 mg PO BID [facility] Last Admin: 08/15/19 22:12 Dose: 10 mg Potassium Chloride 10 meq/ (Sodium Chloride) 1,005 mls @ 55 mls/hr IVPB Q18H [facility] Last Admin: 08/15/19 15:47 Dose: 55 mls/hr Isosorbide Mononitrate (Imdur -) 30 mg PO DAILY [facility] Last Admin: 08/15/19 12:10 Dose: 30 mg Latanoprost (Xalatan 0.005% Eye Drops -) 1 drop OU HS [facility] Last Admin: 08/15/19 22:12 Dose: 1 drop Memantine (Namenda -) 5 mg PO BID [facility] Last Admin: 08/15/19 22:12 Dose: 5 mg Pantoprazole Sodium (Protonix -) 40 mg PO DAILY [facility] Last Admin: 08/15/19 12:10 Dose: 40 mg - Objective Vital Signs: Vital Signs Temperature 98.3 F 08/16/19 06:00 Pulse Rate 86 08/16/19 06:00 Respiratory Rate 20 08/16/19 06:00 Blood Pressure 141/96 08/16/19 06:00 O2 Sat by Pulse Oximetry (%) 96 08/15/19 21:36 Neck: Yes: Supple Cardiovascular: Yes: Regular Rate and Rhythm, S1, S2 Respiratory: Yes: Diminished Gastrointestinal: Yes: Normal Bowel Sounds, Soft. No: Tenderness Edema: No Labs: CBC, BMP 08/16/19 06:10 08/16/19 06:10 Problem List - Problems (1) Acute on chronic combined systolic and diastolic congestive heart failure Code(s): I50.43 - ACUTE ON CHRONIC COMBINED SYSTOLIC AND DIASTOLIC HRT FAIL (2) Anemia Code(s): D64.9 - ANEMIA, UNSPECIFIED Qualifiers: Anemia type: unspecified type Qualified Code(s): D64.9 - Anemia, unspecified (3) CKD (chronic kidney disease) Code(s): N18.9 - CHRONIC KIDNEY DISEASE, UNSPECIFIED Qualifiers: Chronic kidney disease stage: unspecified stage Qualified Code(s): N18.9 - Chronic kidney disease, unspecified (4) Dementia Code(s): F03.90 - UNSPECIFIED DEMENTIA WITHOUT BEHAVIORAL DISTURBANCE (5) Sepsis Code(s): A41.9 - SEPSIS, UNSPECIFIED ORGANISM (6) UTI (urinary tract infection) Code(s): N39.0 - URINARY TRACT INFECTION, SITE NOT SPECIFIED Qualifiers: Urinary tract infection type: site unspecified Hematuria presence: without hematuria Qualified Code(s): N39.0 - Urinary tract infection, site not specified (7) Acute and chronic respiratory failure Code(s): J96.20 - ACUTE AND CHR RESP FAILURE, UNSP W HYPOXIA OR HYPERCAPNIA Qualifiers: Respiratory failure complication: hypoxia Qualified Code(s): J96.21 - Acute and chronic respiratory failure with hypoxia (8) Acute and chronic respiratory failure with hypoxia Code(s): J96.21 - ACUTE AND CHRONIC RESPIRATORY FAILURE WITH HYPOXIA (9) Acute on chronic renal failure Code(s): N17.9 - ACUTE KIDNEY FAILURE, UNSPECIFIED; N18.9 - CHRONIC KIDNEY DISEASE, UNSPECIFIED Qualifiers: Chronic kidney disease stage: stage 3 (moderate) (10) COPD (chronic obstructive pulmonary disease) Code(s): J44.9 - CHRONIC OBSTRUCTIVE PULMONARY DISEASE, UNSPECIFIED Qualifiers: (11) Cardiac pacemaker in situ Code(s): Z95.0 - PRESENCE OF CARDIAC PACEMAKER (12) Diastolic dysfunction without heart failure Code(s): I51.9 - HEART DISEASE, UNSPECIFIED (13) Generalized weakness Code(s): R53.1 - WEAKNESS (14) High-grade atrioventricular block Code(s): I44.39 - OTHER ATRIOVENTRICULAR BLOCK (15) ASHD (arteriosclerotic heart disease) Code(s): I25.10 - ATHSCL HEART DISEASE OF [place] CORONARY ARTERY W/O ANG PCTRS (16) Diabetes mellitus Code(s): E11.9 - TYPE 2 DIABETES MELLITUS WITHOUT COMPLICATIONS Qualifiers: Diabetes mellitus type: type 2 Diabetes mellitus group home insulin use: without group home use Diabetes mellitus complication status: with unspecified complications (17) Hyperlipidemia Code(s): E78.5 - HYPERLIPIDEMIA, UNSPECIFIED Qualifiers: Hyperlipidemia type: pure hypercholesterolemia Qualified Code(s): E78.00 - Pure hypercholesterolemia, unspecified (18) Hypertension Code(s): I10 - ESSENTIAL (PRIMARY) HYPERTENSION Qualifiers: Hypertension type: essential hypertension Qualified Code(s): I10 - Essential (primary) hypertension Assessment/Plan 1. Pneumonia with sepsis syndrome 2. Chronic hypoxic respiratory failure 3. 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 COPD - steroid and home O2-dependent, with acute exacerbation 5. CAD with demand ischemic injury angina pectoris for conservative medical management 6. Advanced AV block post pacemaker implant 7. HTN 8. Hypercholesterolemia 9. Organic brain syndrome/dementia 10. Acute on CKD 11. Anemia of chronic disease PLAN: 1. Continue to withhold diuretics and close monitoring or renal function 2. Continue Carvedilol, Imdur and Hydralazine 3. Resume ARBS once renal function at baseline 4. Continue Lipitor 5. Continue BISI Tillman MD
[2019-08-16] MEDS: HEPARIN NA (PORCINE) 5,000 UNITS/ML 1ML VIAL SQ SCH ×2 (10:39→23:06)
[2019-08-16] MEDS: FERROUS SO4 325 MG TABLET (FP) PO SCH ×2 (10:39→18:16)
[2019-08-16] MEDS: ASCORBIC ACID 500 MG TABLET (FP) PO SCH ×2 (10:39→23:07)
[2019-08-16] MEDS: CARVEDILOL 12.5 MG TABLET (FP) PO SCH ×2 (10:40→23:07)
[2019-08-16] MEDS: ASPIRIN 81 MG CHEWABLE TABLETS PO SCH (10:40)
[2019-08-16] MEDS: hydrALAZINE HCL 10 MG TABLET PO SCH ×2 (10:40→23:07)
[2019-08-16] MEDS: PANTOPRAZOLE 40 MG TABLET (FP) PO SCH (10:40)
[2019-08-16] MEDS: ISOSORBIDE MONONITRATE 30 MG TAB.SR.24H (FP) PO SCH (10:40)
[2019-08-16] MEDS: MEMANTINE HCL 5 MG TABLET (UD) PO SCH ×2 (10:40→23:07)
--- NOTE | 2019-08-16 12:01 | PN ---
Progress Note (short form) - Note Progress Note: awake now No distress had episode of SOB yesterday CXR-- shows congestive changes Vital Signs - 24 hr 08/15/19 08/15/19 08/15/19 14:00 18:00 21:00 Temperature 98.3 F 98.2 F Pulse Rate 74 76 Respiratory 20 Rate Blood Pressure 131/58 L 135/69 O2 Sat by Pulse 96 Oximetry (%) 08/15/19 08/16/19 08/16/19 21:36 01:55 06:00 Temperature 98.9 F 98.7 F 98.3 F Pulse Rate 70 81 86 Respiratory 20 20 20 Rate Blood Pressure 128/62 136/71 141/96 O2 Sat by Pulse 96 Oximetry (%) Current Medications Generic Name Dose Route Start Last Admin Trade Name Freq PRN Reason Stop Dose Admin Acetaminophen 650 mg 08/05/19 17:07 08/08/19 17:37 Tylenol Suppository - MN 650 mg Q6H PRN Administration FEVER Ascorbic Acid 500 mg 08/11/19 11:00 08/16/19 10:39 Vitamin C - PO 500 mg BID DINESH Administration Aspirin 81 mg 08/10/19 10:00 08/16/19 10:40 Asa - PO 81 mg DAILY DINESH Administration Atorvastatin Calcium 20 mg 08/03/19 22:00 08/15/19 22:12 Lipitor - PO 20 mg HS DINESH Administration Carvedilol 12.5 mg 08/03/19 10:00 08/16/19 10:40 Coreg - PO 12.5 mg BID DINESH Administration Ferrous Sulfate 325 mg 08/11/19 17:30 08/16/19 10:39 Feosol - PO 325 mg BIDWM DINESH Administration Heparin Sodium (Porcine) 5,000 unit 08/04/19 22:00 08/16/19 10:39 Heparin - SQ 5,000 unit BID DINESH Administration Hydralazine HCl 10 mg 08/06/19 12:15 08/16/19 10:40 Apresoline - PO 10 mg BID DINESH Administration Potassium Chloride 10 meq/ 1,005 mls @ 55 mls/hr 08/08/19 13:40 08/15/19 15: 47 Sodium Chloride IVPB 55 mls/hr Q18H DINESH Administration Isosorbide Mononitrate 30 mg 08/10/19 11:00 08/16/19 10:40 Imdur - PO 30 mg DAILY DINESH Administration Latanoprost 1 drop 08/03/19 22:00 08/15/19 22:12 Xalatan 0.005% Eye Drops - OU 1 drop HS DINESH Administration Memantine 5 mg 08/09/19 22:00 08/16/19 10:40 Namenda - PO 5 mg BID DINESH Administration Pantoprazole Sodium 40 mg 08/03/19 10:00 08/16/19 10:40 Protonix - PO 40 mg DAILY DINESH Administration Laboratory Results - last 24 hr 08/16/19 08/16/19 08/16/19 05:46 06:10 06:10 WBC 5.8 RBC 2.75 L Hgb 7.8 L Hct 23.1 L MCV 84.0 MCH 28.2 MCHC 33.5 RDW 17.8 H Plt Count 297 D MPV 8.4 Absolute Neuts (auto) 4.3 Neutrophils % 74.9 Lymphocytes % 10.8 D Monocytes % 8.9 Eosinophils % 4.3 Basophils % 1.1 Nucleated RBC % 0 Anticoagulation Therapy Puncture Site ABG pH ABG pCO2 at Pt Temp ABG pO2 at Pt Temp ABG HCO3 ABG O2 Sat (Measured) ABG O2 Content ABG Base Excess Arnoldo Test O2 Delivery Device Oxygen Flow Rate Vent Mode Vent Rate Mechanical Rate Pressure Support Vent Sodium 138 Potassium 4.6 Chloride 110 H Carbon Dioxide 20 L Anion Gap 8 BUN 35.0 H Creatinine 2.7 H Est GFR (CKD-EPI)AfAm 23.83 Est GFR (CKD-EPI)NonAf 20.56 POC Glucometer 113 Random Glucose 98 Calcium 8.2 L Total Bilirubin 0.5 AST 13 L ALT 9 L Alkaline Phosphatase 55 Total Protein 5.9 L Albumin 1.8 L 08/16/19 06:30 WBC RBC Hgb Hct MCV MCH MCHC RDW Plt Count MPV Absolute Neuts (auto) Neutrophils % Lymphocytes % Monocytes % Eosinophils % Basophils % Nucleated RBC % Anticoagulation Therapy No Result Required. Puncture Site Right radial ABG pH 7.42 ABG pCO2 at Pt Temp 27.0 L ABG pO2 at Pt Temp 113 H ABG HCO3 17.2 L ABG O2 Sat (Measured) 98.3 H ABG O2 Content 9.7 ABG Base Excess -6.2 L Arnoldo Test Positive O2 Delivery Device Nasal Oxygen Flow Rate 4l Vent Mode No Result Required. Vent Rate No Result Required. Mechanical Rate No Result Required. Pressure Support Vent No Result Required. Sodium Potassium Chloride Carbon Dioxide Anion Gap BUN Creatinine Est GFR (CKD-EPI)AfAm Est GFR (CKD-EPI)NonAf POC Glucometer Random Glucose Calcium Total Bilirubin AST ALT Alkaline Phosphatase Total Protein Albumin Microbiology 08/05/19 05:38 Blood Culture - Preliminary Blood - Peripheral Venous NO GROWTH OBTAINED AFTER 96 HOURS, INCUBATION TO CONTINUE FOR 1 DAYS. 08/05/19 05:14 Blood Culture - Preliminary Blood - Peripheral Venous NO GROWTH OBTAINED AFTER 96 HOURS, INCUBATION TO CONTINUE FOR 1 DAYS. S1 S2 RRR Lungs decreased breath sounds Abd- soft, obese, NT No edema PLAN Iv antibiotics dc monitor renal function -->better Neurology eval noted - on aricept GI follow up with regards to feeding tube-- not eating per staff iv fluids dc as pt was SOB Problem List - Problems (1) Acute on chronic combined systolic and diastolic congestive heart failure Code(s): I50.43 - ACUTE ON CHRONIC COMBINED SYSTOLIC AND DIASTOLIC HRT FAIL (2) Anemia Code(s): D64.9 - ANEMIA, UNSPECIFIED Qualifiers: Anemia type: unspecified type Qualified Code(s): D64.9 - Anemia, unspecified (3) Acute and chronic respiratory failure with hypoxia Code(s): J96.21 - ACUTE AND CHRONIC RESPIRATORY FAILURE WITH HYPOXIA (4) Acute on chronic renal failure Code(s): N17.9 - ACUTE KIDNEY FAILURE, UNSPECIFIED; N18.9 - CHRONIC KIDNEY DISEASE, UNSPECIFIED Qualifiers: Chronic kidney disease stage: stage 3 (moderate) (5) CHF (congestive heart failure) Code(s): I50.9 - HEART FAILURE, UNSPECIFIED Qualifiers: Heart failure type: combined systolic and diastolic Heart failure chronicity: chronic Qualified Code(s): I50.42 - Chronic combined systolic ( congestive) and diastolic (congestive) heart failure (6) COPD (chronic obstructive pulmonary disease) Code(s): J44.9 - CHRONIC OBSTRUCTIVE PULMONARY DISEASE, UNSPECIFIED Qualifiers: (7) Pneumonia Code(s): J18.9 - PNEUMONIA, UNSPECIFIED ORGANISM
--- NOTE | 2019-08-16 12:43 | PN ---
Progress Note, Physician History of Present Illness: no new issues - Current Medication List Current Medications: Active Medications Acetaminophen (Tylenol Suppository -) 650 mg DE Q6H PRN PRN Reason: FEVER Last Admin: 08/08/19 17:37 Dose: 650 mg Ascorbic Acid (Vitamin C -) 500 mg PO BID [facility] Last Admin: 08/16/19 10:39 Dose: 500 mg Aspirin (Asa -) 81 mg PO DAILY [facility] Last Admin: 08/16/19 10:40 Dose: 81 mg Atorvastatin Calcium (Lipitor -) 20 mg PO HS [facility] Last Admin: 08/15/19 22:12 Dose: 20 mg Carvedilol (Coreg -) 12.5 mg PO BID [facility] Last Admin: 08/16/19 10:40 Dose: 12.5 mg Ferrous Sulfate (Feosol -) 325 mg PO BIDWM [facility] Last Admin: 08/16/19 10:39 Dose: 325 mg Heparin Sodium (Porcine) (Heparin -) 5,000 unit SQ BID [facility] Last Admin: 08/16/19 10:39 Dose: 5,000 unit Hydralazine HCl (Apresoline -) 10 mg PO BID [facility] Last Admin: 08/16/19 10:40 Dose: 10 mg Potassium Chloride 10 meq/ (Sodium Chloride) 1,005 mls @ 55 mls/hr IVPB Q18H [facility] Last Admin: 08/15/19 15:47 Dose: 55 mls/hr Isosorbide Mononitrate (Imdur -) 30 mg PO DAILY [facility] Last Admin: 08/16/19 10:40 Dose: 30 mg Latanoprost (Xalatan 0.005% Eye Drops -) 1 drop OU HS [facility] Last Admin: 08/15/19 22:12 Dose: 1 drop Memantine (Namenda -) 5 mg PO BID [facility] Last Admin: 08/16/19 10:40 Dose: 5 mg Pantoprazole Sodium (Protonix -) 40 mg PO DAILY [facility] Last Admin: 08/16/19 10:40 Dose: 40 mg - Objective Vital Signs: Vital Signs Temperature 98.3 F 08/16/19 06:00 Pulse Rate 86 08/16/19 06:00 Respiratory Rate 20 08/16/19 06:00 Blood Pressure 141/96 08/16/19 06:00 O2 Sat by Pulse Oximetry (%) 96 08/15/19 21:36 Constitutional: Yes: No Distress, Calm Cardiovascular: Yes: S1, S2 Respiratory: Yes: Regular, CTA Bilaterally Gastrointestinal: Yes: Normal Bowel Sounds, Soft Musculoskeletal: Yes: WNL Extremities: Yes: Other Neurological: Yes: Alert, Other Psychiatric: Yes: Other Labs: CBC, BMP 08/16/19 06:10 08/16/19 06:10 INR, PTT INR 1.21 (0.83-1.09) H 08/02/19 21:25 Assessment/Plan Problem List - Problems (1) Acute on chronic combined systolic and diastolic congestive heart failure Code(s): I50.43 - ACUTE ON CHRONIC COMBINED SYSTOLIC AND DIASTOLIC HRT FAIL (2) Anemia Code(s): D64.9 - ANEMIA, UNSPECIFIED Qualifiers: Anemia type: unspecified type Qualified Code(s): D64.9 - Anemia, unspecified (3) Acute and chronic respiratory failure with hypoxia Code(s): J96.21 - ACUTE AND CHRONIC RESPIRATORY FAILURE WITH HYPOXIA (4) Acute on chronic renal failure Code(s): N17.9 - ACUTE KIDNEY FAILURE, UNSPECIFIED; N18.9 - CHRONIC KIDNEY DISEASE, UNSPECIFIED Qualifiers: Chronic kidney disease stage: stage 3 (moderate) (5) CHF (congestive heart failure) Code(s): I50.9 - HEART FAILURE, UNSPECIFIED Qualifiers: Heart failure type: combined systolic and diastolic Heart failure chronicity: chronic Qualified Code(s): I50.42 - Chronic combined systolic ( congestive) and diastolic (congestive) heart failure (6) COPD (chronic obstructive pulmonary disease) Code(s): J44.9 - CHRONIC OBSTRUCTIVE PULMONARY DISEASE, UNSPECIFIED Qualifiers: (7) Pneumonia Code(s): J18.9 - PNEUMONIA, UNSPECIFIED ORGANISM plan continue current mgmt nutrition rest as per the team monitor
--- NOTE | 2019-08-16 16:04 | PN ---
Progress Note, Physician History of Present Illness: Pt seen and examined at bedside. He is more awake a today. - Current Medication List Current Medications: Active Medications Acetaminophen (Tylenol Suppository -) 650 mg DC Q6H PRN PRN Reason: FEVER Last Admin: 08/08/19 17:37 Dose: 650 mg Ascorbic Acid (Vitamin C -) 500 mg PO BID [facility] Last Admin: 08/16/19 10:39 Dose: 500 mg Aspirin (Asa -) 81 mg PO DAILY [facility] Last Admin: 08/16/19 10:40 Dose: 81 mg Atorvastatin Calcium (Lipitor -) 20 mg PO HS [facility] Last Admin: 08/15/19 22:12 Dose: 20 mg Carvedilol (Coreg -) 12.5 mg PO BID [facility] Last Admin: 08/16/19 10:40 Dose: 12.5 mg Ferrous Sulfate (Feosol -) 325 mg PO BIDWM [facility] Last Admin: 08/16/19 10:39 Dose: 325 mg Heparin Sodium (Porcine) (Heparin -) 5,000 unit SQ BID [facility] Last Admin: 08/16/19 10:39 Dose: 5,000 unit Hydralazine HCl (Apresoline -) 10 mg PO BID [facility] Last Admin: 08/16/19 10:40 Dose: 10 mg Potassium Chloride 10 meq/ (Sodium Chloride) 1,005 mls @ 55 mls/hr IVPB Q18H [facility] Last Admin: 08/15/19 15:47 Dose: 55 mls/hr Isosorbide Mononitrate (Imdur -) 30 mg PO DAILY [facility] Last Admin: 08/16/19 10:40 Dose: 30 mg Latanoprost (Xalatan 0.005% Eye Drops -) 1 drop OU HS [facility] Last Admin: 08/15/19 22:12 Dose: 1 drop Memantine (Namenda -) 5 mg PO BID [facility] Last Admin: 08/16/19 10:40 Dose: 5 mg Pantoprazole Sodium (Protonix -) 40 mg PO DAILY [facility] Last Admin: 08/16/19 10:40 Dose: 40 mg - Objective Vital Signs: Vital Signs Temperature 98.2 F 08/16/19 14:00 Pulse Rate 84 08/16/19 14:00 Respiratory Rate 18 08/16/19 14:00 Blood Pressure 127/57 L 08/16/19 14:00 O2 Sat by Pulse Oximetry (%) 96 08/16/19 10:00 Constitutional: Yes: Calm Eyes: Yes: Conjunctiva Clear HENT: Yes: Atraumatic Neck: Yes: Supple Cardiovascular: Yes: S1, S2 Respiratory: Yes: Regular Gastrointestinal: Yes: Normal Bowel Sounds, Soft Genitourinary: Yes: WNL, Incontinence Edema: No Neurological: Yes: Confusion Labs: CBC, BMP 08/16/19 06:10 08/16/19 06:10 INR, PTT INR 1.21 (0.83-1.09) H 08/02/19 21:25 Problem List - Problems (1) CKD (chronic kidney disease) Code(s): N18.9 - CHRONIC KIDNEY DISEASE, UNSPECIFIED Qualifiers: Chronic kidney disease stage: unspecified stage Qualified Code(s): N18.9 - Chronic kidney disease, unspecified (2) Acute kidney injury Code(s): N17.9 - ACUTE KIDNEY FAILURE, UNSPECIFIED Assessment/Plan Current Medications Generic Name Dose Route Start Last Admin Trade Name Freq PRN Reason Stop Dose Admin Acetaminophen 650 mg 08/05/19 17:07 08/08/19 17:37 Tylenol Suppository - [place] 650 mg Q6H PRN Administration FEVER Ascorbic Acid 500 mg 08/11/19 11:00 08/16/19 10:39 Vitamin C - PO 500 mg BID DINESH Administration Aspirin 81 mg 08/10/19 10:00 08/16/19 10:40 Asa - PO 81 mg DAILY DINESH Administration Atorvastatin Calcium 20 mg 08/03/19 22:00 08/15/19 22:12 Lipitor - PO 20 mg HS DINESH Administration Carvedilol 12.5 mg 08/03/19 10:00 08/16/19 10:40 Coreg - PO 12.5 mg BID DINESH Administration Ferrous Sulfate 325 mg 08/11/19 17:30 08/16/19 10:39 Feosol - PO 325 mg BIDWM DINESH Administration Heparin Sodium (Porcine) 5,000 unit 08/04/19 22:00 08/16/19 10:39 Heparin - SQ 5,000 unit BID DINESH Administration Hydralazine HCl 10 mg 08/06/19 12:15 08/16/19 10:40 Apresoline - PO 10 mg BID DINESH Administration Potassium Chloride 10 meq/ 1,005 mls @ 55 mls/hr 08/08/19 13:40 11/25/19 15: 47 Sodium Chloride IVPB 55 mls/hr Q18H DINESH Administration Isosorbide Mononitrate 30 mg 08/10/19 11:00 08/16/19 10:40 Imdur - PO 30 mg DAILY DINESH Administration Latanoprost 1 drop 08/03/19 22:00 08/15/19 22:12 Xalatan 0.005% Eye Drops - OU 1 drop HS DINESH Administration Memantine 5 mg 08/09/19 22:00 08/16/19 10:40 Namenda - PO 5 mg BID DINESH Administration Pantoprazole Sodium 40 mg 08/03/19 10:00 08/16/19 10:40 Protonix - PO 40 mg DAILY DINESH Administration Impression 1. LAURA 2. lethargy 3. recent pna and sepsis 4. ckd 5. copd 6. dm 7. hx htn 8. dementia Plan - encourage po intake - monitor renal function - avoid nephrotoxins - monitor bp
--- NOTE | 2019-08-16 19:04 | PN.GI ---
GI Progress Note Subjective: Recalled to evaluate for PEG No calorie count documented. just advised he is "not eating much" Patient asking for soda - Objective Vital Signs: Vital Signs Temperature 98.2 F 08/16/19 14:00 Pulse Rate 84 08/16/19 14:00 Respiratory Rate 18 08/16/19 14:00 Blood Pressure 127/57 L 08/16/19 14:00 O2 Sat by Pulse Oximetry (%) 96 08/16/19 16:49 Constitutional: Calm Eyes: Yes: Sclera Icterus Cardiovascular: Yes: Regular Rate and Rhythm Respiratory: Yes: Diminished (at bases b/l) Gastrointestinal Inspection: No: Scars ...Auscultate: Yes: Normoactive Bowel Sounds ...Palpate: No: Tenderness Edema: No (No LE edema) Neurological: Yes: Alert Labs: CBC, BMP 08/16/19 06:10 08/16/19 06:10 INR, PTT INR 1.21 (0.83-1.09) H 08/02/19 21:25 Problem List - Problems (1) Failure to thrive Assessment/Plan: I spoke with Mr. Vee about feeding tube placement. He said no and appeared annoyed. I called his family and spoke to his and daughter. We discussed his reaction to discussion of a feeding tube. His daughter pointed out that he was confused but did have a right to say no. She explained that in his advanced directives he expressed wishes not to have a feeding tube placed ( these documents are not avialbale for review at [facility]). We discussed potential risks of PEG placement like but not limited to bleeding, perforation requiring surgery to repair, infection, sedation medication effects, perotinitis if there was premature tube dislodgement (they are concerned regarding him potentially pulling out a feeding tube. I explained that abdominal binders can be placed to reduce the risk of this, however, it can still occur) all of which could be potentially life threatening. At the end of the conversation, they said that they would talk with Mr. Vee, and also discuss as a family regarding his previous advanced directive wishes not to have a feeding tube. If the patient and family wantr to proceed with PEG , then this can be arranged. For now, advise nutrition follow-up, calorie count and aspiration precautions. Code(s): [id number] -
[2019-08-16] MEDS: ATORVASTATIN CA 20 MG TABLET (FP) PO SCH (23:07)
[2019-08-16] MEDS: LATANOPROST 0.005% OPHTH SOLN 2.5ML BOTTLE OU SCH (23:07)
[2019-08-17 07:19] LABS: ALBUMIN 1.7 g/dl (3.4-5.0); BILIRUBIN,TOTAL 0.4 mg/dL (0.2-1); BLOOD UREA NITROGEN 32.9 mg/dL (7-18); CALCIUM 8.3 mg/dL (8.5-10.1); CREATININE 2.7 mg/dL (0.55-1.3); POTASSIUM 4.4 mmol/L (3.5-5.1); TOT PROT 5.9 g/dl (6.4-8.2)
--- NOTE | 2019-08-17 09:26 | PN ---
Progress Note (short form) - Note Progress Note: Pt seen/examined at bedside, pt somnolent though rousable, denies abdominal pain , n/v. Limited po intake per nursing staff, calorie count starting today. On examination: Pt somnolent, rousable Abd soft, nt, nd +faint RUQ scar Labs reviewed. CXR: congestive changes Assessment/plan: 84yo male presenting after a fall with altered mental status asked to evaluate for PEG. Limited po intake reported though not yet documented. -Calorie count to be performed to assess intake -[employer] follow up -Update coags -As noted by Dr. Corrales yesterday, further discussion to take place amongst pt /pts family to clarify if PEG is within GOC. Pt noted to be ?NPO for possible PEG today. Spoke with pts daughter Neetu this am to clarify, (unable to reach Deborah by phone stated she was at work), still planning for family meeting. -Continue optimization from respiratory standpoint Discussed with nursing staff. Informed primary team.
--- NOTE | 2019-08-17 10:01 | PN ---
Progress Note, Physician History of Present Illness: Lethargic yet arousable. Low oral intake. - Current Medication List Current Medications: Active Medications Acetaminophen (Tylenol Suppository -) 650 mg UT Q6H PRN PRN Reason: FEVER Last Admin: 08/08/19 17:37 Dose: 650 mg Ascorbic Acid (Vitamin C -) 500 mg PO BID [facility] Last Admin: 08/16/19 23:07 Dose: Not Given Aspirin (Asa -) 81 mg PO DAILY [facility] Last Admin: 08/16/19 10:40 Dose: 81 mg Atorvastatin Calcium (Lipitor -) 20 mg PO HS [facility] Last Admin: 08/16/19 23:07 Dose: Not Given Carvedilol (Coreg -) 12.5 mg PO BID [facility] Last Admin: 08/16/19 23:07 Dose: Not Given Ferrous Sulfate (Feosol -) 325 mg PO BIDWM [facility] Last Admin: 08/16/19 18:16 Dose: Not Given Heparin Sodium (Porcine) (Heparin -) 5,000 unit SQ BID [facility] Last Admin: 08/16/19 23:06 Dose: 5,000 unit Hydralazine HCl (Apresoline -) 10 mg PO BID [facility] Last Admin: 08/16/19 23:07 Dose: Not Given Isosorbide Mononitrate (Imdur -) 30 mg PO DAILY [facility] Last Admin: 08/16/19 10:40 Dose: 30 mg Latanoprost (Xalatan 0.005% Eye Drops -) 1 drop OU HS [facility] Last Admin: 08/16/19 23:07 Dose: Not Given Memantine (Namenda -) 5 mg PO BID [facility] Last Admin: 08/16/19 23:07 Dose: Not Given Pantoprazole Sodium (Protonix -) 40 mg PO DAILY [facility] Last Admin: 08/16/19 10:40 Dose: 40 mg - Objective Vital Signs: Vital Signs Temperature 98.1 F 08/17/19 05:29 Pulse Rate 74 08/17/19 05:29 Respiratory Rate 22 H 08/17/19 05:29 Blood Pressure 151/72 08/17/19 05:29 O2 Sat by Pulse Oximetry (%) 96 08/16/19 21:17 Constitutional: Yes: No Distress, Calm, Thin Neck: Yes: Supple Cardiovascular: Yes: Regular Rate and Rhythm Respiratory: Yes: Regular, Diminished, On Nasal O2 Gastrointestinal: Yes: Normal Bowel Sounds, Soft Edema: No Labs: CBC, BMP 08/16/19 06:10 08/17/19 05:30 INR, PTT INR 1.21 (0.83-1.09) H 08/02/19 21:25 - ....Imaging Chest X-ray: Report Reviewed (Increased congestion with pleural effusion) EKG: Report Reviewed (Tele: V-paced) Problem List - Problems (1) Acute on chronic combined systolic and diastolic congestive heart failure Code(s): I50.43 - ACUTE ON CHRONIC COMBINED SYSTOLIC AND DIASTOLIC HRT FAIL (2) Acute and chronic respiratory failure with hypoxia Code(s): J96.21 - ACUTE AND CHRONIC RESPIRATORY FAILURE WITH HYPOXIA (3) Acute on chronic renal failure Code(s): N17.9 - ACUTE KIDNEY FAILURE, UNSPECIFIED; N18.9 - CHRONIC KIDNEY DISEASE, UNSPECIFIED Qualifiers: Chronic kidney disease stage: stage 3 (moderate) (4) COPD (chronic obstructive pulmonary disease) Code(s): J44.9 - CHRONIC OBSTRUCTIVE PULMONARY DISEASE, UNSPECIFIED Qualifiers: (5) Cardiac pacemaker in situ Code(s): Z95.0 - PRESENCE OF CARDIAC PACEMAKER (6) ASHD (arteriosclerotic heart disease) Code(s): I25.10 - ATHSCL HEART DISEASE OF [place] CORONARY ARTERY W/O ANG PCTRS (7) Diabetes mellitus Code(s): E11.9 - TYPE 2 DIABETES MELLITUS WITHOUT COMPLICATIONS Qualifiers: Diabetes mellitus type: type 2 Diabetes mellitus alf 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 Diabetes mellitus complication status: with unspecified complications (8) Hyperlipidemia Code(s): E78.5 - HYPERLIPIDEMIA, UNSPECIFIED Qualifiers: Hyperlipidemia type: pure hypercholesterolemia Qualified Code(s): E78.00 - Pure hypercholesterolemia, unspecified (9) Hypertension Code(s): I10 - ESSENTIAL (PRIMARY) HYPERTENSION Qualifiers: Hypertension type: essential hypertension Qualified Code(s): I10 - Essential (primary) hypertension Assessment/Plan 10/26/14 Echo: Normal biventricular size and fxn without sig valve abnl 11/28/2016 Echo: Mod-severely decreased LV fxn with severe HK lateral and inferolateral, mold MR, TR RVSP 40-50 mmHg 11/12/2017 Echo: Mod-severely decreased LV fxn with severe HK inferior, mild TR mild effusion 06/02/2018 Echo: Mild-mod decreased LV fxn with apical dyskinesis, mild MR 07/21/2019 Echo: Mildly dilated LV with severely decreased LVEF, normal RV size and fxn, mild MR, tr TR, RV pacing 08/04/2019 Echo: Mildly dilated LV with severely decreased LVEF, normal RV size and fxn, tr TR RV pacemaker 1. Post Coag neg staph sepsis, Klebsiella PNA UTI 2. Chronic Hypoxic Respiratory Failure referable to 3. Acute on Chronic Systolic Heart Failure 4. 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 Advanced AV block post pacemaker implant interrogated 11/2016 7. HTN 8. Hypercholesterolemia 9. DHEERAJ 10. Acute on CKD back to baseline 11. Anemia of chronic disease with h/o diverticular disease 12. Dementia PLAN: 1. Resume IV diuretics with monitor diuretic response, renal fxn and electrolytes 2. Continue Carvedilol 12.5 bid, Lipitor 20 qhs, ASA 81 qd, hydralazine 10 bid and Imdur 30 qd (BiDil) and holding losartan 100 qd pending renal fxn stabilization 3. Bronchodilators, completed abx course per C&S, wean FIO2 for saO2>90% 4. GI and DVT prophylaxis, dysphagia diet with calorie count, consider PEG insertion, EEG is normal, f/u brain MRI
[2019-08-17] MEDS: ISOSORBIDE MONONITRATE 30 MG TAB.SR.24H (FP) PO SCH (10:08)
[2019-08-17] MEDS: CARVEDILOL 12.5 MG TABLET (FP) PO SCH ×2 (10:08→21:53)
[2019-08-17] MEDS: MEMANTINE HCL 5 MG TABLET (UD) PO SCH ×2 (10:08→21:53)
[2019-08-17] MEDS: PANTOPRAZOLE 40 MG TABLET (FP) PO SCH (10:08)
[2019-08-17] MEDS: ASPIRIN 81 MG CHEWABLE TABLETS PO SCH (10:08)
[2019-08-17] MEDS: ASCORBIC ACID 500 MG TABLET (FP) PO SCH ×2 (10:08→21:53)
[2019-08-17] MEDS: hydrALAZINE HCL 10 MG TABLET PO SCH ×2 (10:08→21:52)
[2019-08-17] MEDS: HEPARIN NA (PORCINE) 5,000 UNITS/ML 1ML VIAL SQ SCH ×2 (10:08→21:54)
[2019-08-17] MEDS: FERROUS SO4 325 MG TABLET (FP) PO SCH ×2 (10:08→17:30)
--- NOTE | 2019-08-17 11:11 | PN ---
Progress Note, Physician History of Present Illness: Pt seen and examined at bedside. He is more awake and alert today. He still however is confused. - Current Medication List Current Medications: Active Medications Acetaminophen (Tylenol Suppository -) 650 mg [place] Q6H PRN PRN Reason: FEVER Last Admin: 08/08/19 17:37 Dose: 650 mg Ascorbic Acid (Vitamin C -) 500 mg PO BID [facility] Last Admin: 08/17/19 10:08 Dose: 500 mg Aspirin (Asa -) 81 mg PO DAILY [facility] Last Admin: 08/17/19 10:08 Dose: 81 mg Atorvastatin Calcium (Lipitor -) 20 mg PO HS [facility] Last Admin: 08/16/19 23:07 Dose: Not Given Carvedilol (Coreg -) 12.5 mg PO BID [facility] Last Admin: 08/17/19 10:08 Dose: 12.5 mg Ferrous Sulfate (Feosol -) 325 mg PO BIDWM [facility] Last Admin: 08/17/19 10:08 Dose: 325 mg Furosemide (Lasix Injection -) 40 mg IVPUSH DAILY [facility] Heparin Sodium (Porcine) (Heparin -) 5,000 unit SQ BID [facility] Last Admin: 08/17/19 10:08 Dose: 5,000 unit Hydralazine HCl (Apresoline -) 10 mg PO BID [facility] Last Admin: 08/17/19 10:08 Dose: 10 mg Isosorbide Mononitrate (Imdur -) 30 mg PO DAILY [facility] Last Admin: 08/17/19 10:08 Dose: 30 mg Latanoprost (Xalatan 0.005% Eye Drops -) 1 drop OU HS [facility] Last Admin: 08/16/19 23:07 Dose: Not Given Memantine (Namenda -) 5 mg PO BID [facility] Last Admin: 08/17/19 10:08 Dose: 5 mg Pantoprazole Sodium (Protonix -) 40 mg PO DAILY [facility] Last Admin: 08/17/19 10:08 Dose: 40 mg - Objective Vital Signs: Vital Signs Temperature 98.1 F 08/17/19 05:29 Pulse Rate 74 08/17/19 05:29 Respiratory Rate 22 H 08/17/19 05:29 Blood Pressure 151/72 08/17/19 05:29 O2 Sat by Pulse Oximetry (%) 96 08/16/19 21:17 Constitutional: Yes: Calm Eyes: Yes: Conjunctiva Clear HENT: Yes: Atraumatic Neck: Yes: Supple Cardiovascular: Yes: S1, S2 Respiratory: Yes: CTA Bilaterally Gastrointestinal: Yes: Soft Genitourinary: Yes: Incontinence Musculoskeletal: Yes: WNL Edema: No Neurological: Yes: Confusion Labs: CBC, BMP 08/16/19 06:10 08/17/19 05:30 INR, PTT INR 1.21 (0.83-1.09) H 08/02/19 21:25 Problem List - Problems (1) CKD (chronic kidney disease) Code(s): N18.9 - CHRONIC KIDNEY DISEASE, UNSPECIFIED Qualifiers: Chronic kidney disease stage: unspecified stage Qualified Code(s): N18.9 - Chronic kidney disease, unspecified (2) Acute kidney injury Code(s): N17.9 - ACUTE KIDNEY FAILURE, UNSPECIFIED Assessment/Plan Current Medications Generic Name Dose Route Start Last Admin Trade Name Freq PRN Reason Stop Dose Admin Acetaminophen 650 mg 08/05/19 17:07 08/08/19 17:37 Tylenol Suppository - [place] 650 mg Q6H PRN Administration FEVER Ascorbic Acid 500 mg 08/11/19 11:00 08/17/19 10:08 Vitamin C - PO 500 mg BID DINESH Administration Aspirin 81 mg 08/10/19 10:00 08/17/19 10:08 Asa - PO 81 mg DAILY DINESH Administration Atorvastatin Calcium 20 mg 08/03/19 22:00 08/16/19 23:07 Lipitor - PO Not Given HS DINESH Carvedilol 12.5 mg 08/03/19 10:00 08/17/19 10:08 Coreg - PO 12.5 mg BID DINESH Administration Ferrous Sulfate 325 mg 08/11/19 17:30 08/17/19 10:08 Feosol - PO 325 mg BIDWM DINESH Administration Furosemide 40 mg 08/17/19 11:00 Lasix Injection - IVPUSH DAILY [facility] Heparin Sodium (Porcine) 5,000 unit 08/04/19 22:00 08/17/19 10:08 Heparin - SQ 5,000 unit BID [facility] Administration Hydralazine HCl 10 mg 08/06/19 12:15 08/17/19 10:08 Apresoline - PO 10 mg BID [facility]INESH Administration Isosorbide Mononitrate 30 mg 08/10/19 11:00 08/17/19 10:08 Imdur - PO 30 mg DAILY [facility] Administration Latanoprost 1 drop 08/03/19 22:00 08/16/19 23:07 Xalatan 0.005% Eye Drops - OU Not Given HS DINESH Memantine 5 mg 08/09/19 22:00 08/17/19 10:08 Namenda - PO 5 mg BID [facility]INESH Administration Pantoprazole Sodium 40 mg 08/03/19 10:00 08/17/19 10:08 Protonix - PO 40 mg DAILY [facility]INESH Administration Impression 1. LAURA 2. lethargy 3. recent pna and sepsis 4. ckd 5. copd 6. dm 7. hx htn 8. dementia Plan - pt is more awake - renal function is stable - avoid nephrotoxins - monitor bp
--- NOTE | 2019-08-17 11:53 | PN ---
Progress Note (short form) - Note Progress Note: awake now No distress comfortable on 2 L O2 Vital Signs - 24 hr 08/16/19 08/16/19 08/16/19 14:00 16:49 17:00 Temperature 98.2 F 98.2 F Pulse Rate 84 80 Respiratory 18 20 Rate Blood Pressure 127/57 L 145/72 O2 Sat by Pulse 96 Oximetry (%) 08/16/19 08/16/19 08/17/19 21:00 21:17 02:22 Temperature 98.3 F 97.8 F Pulse Rate 84 83 Respiratory 20 20 Rate Blood Pressure 133/70 143/58 L O2 Sat by Pulse 96 96 Oximetry (%) 08/17/19 05:29 Temperature 98.1 F Pulse Rate 74 Respiratory 22 H Rate Blood Pressure 151/72 O2 Sat by Pulse Oximetry (%) Current Medications Generic Name Dose Route Start Last Admin Trade Name Freq PRN Reason Stop Dose Admin Acetaminophen 650 mg 08/05/19 17:07 08/08/19 17:37 Tylenol Suppository - [place] 650 mg Q6H PRN Administration FEVER Ascorbic Acid 500 mg 08/11/19 11:00 08/17/19 10:08 Vitamin C - PO 500 mg BID DINESH Administration Aspirin 81 mg 08/10/19 10:00 08/17/19 10:08 Asa - PO 81 mg DAILY DINESH Administration Atorvastatin Calcium 20 mg 08/03/19 22:00 08/16/19 23:07 Lipitor - PO Not Given HS DINESH Carvedilol 12.5 mg 08/03/19 10:00 08/17/19 10:08 Coreg - PO 12.5 mg BID DINESH Administration Ferrous Sulfate 325 mg 08/11/19 17:30 08/17/19 10:08 Feosol - PO 325 mg BIDWM DINESH Administration Furosemide 40 mg 08/17/19 11:00 Lasix Injection - IVPUSH DAILY [facility] Heparin Sodium (Porcine) 5,000 unit 08/04/19 22:00 08/17/19 10:08 Heparin - SQ 5,000 unit BID [facility] Administration Hydralazine HCl 10 mg 08/06/19 12:15 08/17/19 10:08 Apresoline - PO 10 mg BID [facility] Administration Isosorbide Mononitrate 30 mg 08/10/19 11:00 08/17/19 10:08 Imdur - PO 30 mg DAILY [facility] Administration Latanoprost 1 drop 08/03/19 22:00 08/16/19 23:07 Xalatan 0.005% Eye Drops - OU Not Given HS DINESH Memantine 5 mg 08/09/19 22:00 08/17/19 10:08 Namenda - PO 5 mg BID [facility] Administration Pantoprazole Sodium 40 mg 08/03/19 10:00 08/17/19 10:08 Protonix - PO 40 mg DAILY [facility]IN[facility] Administration Laboratory Results - last 24 hr 08/17/19 05:30 Sodium 140 Potassium 4.4 Chloride 111 H Carbon Dioxide 21 Anion Gap 8 BUN 32.9 H Creatinine 2.7 H Est GFR (CKD-EPI)AfAm 23.83 Est GFR (CKD-EPI)NonAf 20.56 Random Glucose 79 Calcium 8.3 L Total Bilirubin 0.4 AST 13 L ALT 10 L Alkaline Phosphatase 55 Total Protein 5.9 L Albumin 1.7 L Microbiology 08/05/19 05:38 Blood Culture - Preliminary Blood - Peripheral Venous NO GROWTH OBTAINED AFTER 96 HOURS, INCUBATION TO CONTINUE FOR 1 DAYS. 08/05/19 05:14 Blood Culture - Preliminary Blood - Peripheral Venous NO GROWTH OBTAINED AFTER 96 HOURS, INCUBATION TO CONTINUE FOR 1 DAYS. S1 S2 RRR Lungs decreased breath sounds Abd- soft, obese, NT No edema PLAN Iv antibiotics dc monitor renal function Neurology viki noted - on aricept -->advance dementia spoke with GI as per pt living will-- states he does not want artificial nutrition or lifesupport Will call for palliative care eval encourage PO Problem List - Problems (1) Acute on chronic combined systolic and diastolic congestive heart failure Code(s): I50.43 - ACUTE ON CHRONIC COMBINED SYSTOLIC AND DIASTOLIC HRT FAIL (2) Anemia Code(s): D64.9 - ANEMIA, UNSPECIFIED Qualifiers: Anemia type: unspecified type Qualified Code(s): D64.9 - Anemia, unspecified (3) Acute and chronic respiratory failure with hypoxia Code(s): J96.21 - ACUTE AND CHRONIC RESPIRATORY FAILURE WITH HYPOXIA (4) Acute on chronic renal failure Code(s): N17.9 - ACUTE KIDNEY FAILURE, UNSPECIFIED; N18.9 - CHRONIC KIDNEY DISEASE, UNSPECIFIED Qualifiers: Chronic kidney disease stage: stage 3 (moderate) (5) CHF (congestive heart failure) Code(s): I50.9 - HEART FAILURE, UNSPECIFIED Qualifiers: Heart failure type: combined systolic and diastolic Heart failure chronicity: chronic Qualified Code(s): I50.42 - Chronic combined systolic ( congestive) and diastolic (congestive) heart failure (6) COPD (chronic obstructive pulmonary disease) Code(s): J44.9 - CHRONIC OBSTRUCTIVE PULMONARY DISEASE, UNSPECIFIED Qualifiers: (7) Pneumonia Code(s): J18.9 - PNEUMONIA, UNSPECIFIED ORGANISM
--- NOTE | 2019-08-17 11:53 | PN ---
Problem List - Problems (1) Acute on chronic combined systolic and diastolic congestive heart failure Code(s): I50.43 - ACUTE ON CHRONIC COMBINED SYSTOLIC AND DIASTOLIC HRT FAIL (2) Anemia Code(s): D64.9 - ANEMIA, UNSPECIFIED Qualifiers: Anemia type: unspecified type Qualified Code(s): D64.9 - Anemia, unspecified (3) Acute and chronic respiratory failure with hypoxia Code(s): J96.21 - ACUTE AND CHRONIC RESPIRATORY FAILURE WITH HYPOXIA (4) Acute on chronic renal failure Code(s): N17.9 - ACUTE KIDNEY FAILURE, UNSPECIFIED; N18.9 - CHRONIC KIDNEY DISEASE, UNSPECIFIED Qualifiers: Chronic kidney disease stage: stage 3 (moderate) (5) CHF (congestive heart failure) Code(s): I50.9 - HEART FAILURE, UNSPECIFIED Qualifiers: Heart failure type: combined systolic and diastolic Heart failure chronicity: chronic Qualified Code(s): I50.42 - Chronic combined systolic ( congestive) and diastolic (congestive) heart failure (6) COPD (chronic obstructive pulmonary disease) Code(s): J44.9 - CHRONIC OBSTRUCTIVE PULMONARY DISEASE, UNSPECIFIED Qualifiers: (7) Pneumonia Code(s): J18.9 - PNEUMONIA, UNSPECIFIED ORGANISM (8) Malnutrition Code(s): E46 - UNSPECIFIED PROTEIN-CALORIE MALNUTRITION (9) Functional quadriplegia Code(s): R53.2 - FUNCTIONAL QUADRIPLEGIA
--- NOTE | 2019-08-17 12:44 | PN ---
Progress Note, Physician History of Present Illness: no new issues - Current Medication List Current Medications: Active Medications Acetaminophen (Tylenol Suppository -) 650 mg [place] Q6H PRN PRN Reason: FEVER Last Admin: 08/08/19 17:37 Dose: 650 mg Ascorbic Acid (Vitamin C -) 500 mg PO BID [facility] Last Admin: 08/17/19 10:08 Dose: 500 mg Aspirin (Asa -) 81 mg PO DAILY [facility] Last Admin: 08/17/19 10:08 Dose: 81 mg Atorvastatin Calcium (Lipitor -) 20 mg PO HS [facility] Last Admin: 08/16/19 23:07 Dose: Not Given Carvedilol (Coreg -) 12.5 mg PO BID [facility] Last Admin: 08/17/19 10:08 Dose: 12.5 mg Ferrous Sulfate (Feosol -) 325 mg PO BIDWM [facility] Last Admin: 08/17/19 10:08 Dose: 325 mg Furosemide (Lasix Injection -) 40 mg IVPUSH DAILY [facility] Heparin Sodium (Porcine) (Heparin -) 5,000 unit SQ BID [facility] Last Admin: 08/17/19 10:08 Dose: 5,000 unit Hydralazine HCl (Apresoline -) 10 mg PO BID [facility] Last Admin: 08/17/19 10:08 Dose: 10 mg Isosorbide Mononitrate (Imdur -) 30 mg PO DAILY [facility] Last Admin: 08/17/19 10:08 Dose: 30 mg Latanoprost (Xalatan 0.005% Eye Drops -) 1 drop OU HS [facility] Last Admin: 08/16/19 23:07 Dose: Not Given Memantine (Namenda -) 5 mg PO BID [facility] Last Admin: 08/17/19 10:08 Dose: 5 mg Pantoprazole Sodium (Protonix -) 40 mg PO DAILY [facility] Last Admin: 08/17/19 10:08 Dose: 40 mg - Objective Vital Signs: Vital Signs Temperature 98.5 F 08/17/19 10:00 Pulse Rate 74 08/17/19 10:00 Respiratory Rate 20 08/17/19 10:00 Blood Pressure 137/75 08/17/19 10:00 O2 Sat by Pulse Oximetry (%) 96 08/17/19 10:00 Constitutional: Yes: No Distress, Calm Neck: Yes: Supple, Trachea Midline Cardiovascular: Yes: S1, S2 Respiratory: Yes: Regular, CTA Bilaterally Gastrointestinal: Yes: Normal Bowel Sounds, Soft Musculoskeletal: Yes: WNL Extremities: Yes: Other Neurological: Yes: Alert, Other Psychiatric: Yes: Other Labs: CBC, BMP 08/16/19 06:10 08/17/19 05:30 INR, PTT INR 1.21 (0.83-1.09) H 08/02/19 21:25 Assessment/Plan Problem List - Problems (1) Acute on chronic combined systolic and diastolic congestive heart failure Code(s): I50.43 - ACUTE ON CHRONIC COMBINED SYSTOLIC AND DIASTOLIC HRT FAIL (2) Anemia Code(s): D64.9 - ANEMIA, UNSPECIFIED Qualifiers: Anemia type: unspecified type Qualified Code(s): D64.9 - Anemia, unspecified (3) Acute and chronic respiratory failure with hypoxia Code(s): J96.21 - ACUTE AND CHRONIC RESPIRATORY FAILURE WITH HYPOXIA (4) Acute on chronic renal failure Code(s): N17.9 - ACUTE KIDNEY FAILURE, UNSPECIFIED; N18.9 - CHRONIC KIDNEY DISEASE, UNSPECIFIED Qualifiers: Chronic kidney disease stage: stage 3 (moderate) (5) CHF (congestive heart failure) Code(s): I50.9 - HEART FAILURE, UNSPECIFIED Qualifiers: Heart failure type: combined systolic and diastolic Heart failure chronicity: chronic Qualified Code(s): I50.42 - Chronic combined systolic ( congestive) and diastolic (congestive) heart failure (6) COPD (chronic obstructive pulmonary disease) Code(s): J44.9 - CHRONIC OBSTRUCTIVE PULMONARY DISEASE, UNSPECIFIED Qualifiers: (7) Pneumonia Code(s): J18.9 - PNEUMONIA, UNSPECIFIED ORGANISM plan continue current mgmt nutrition rest as per the team monitor
[2019-08-17] MEDS: FUROSEMIDE 40 MG/4 ML INJECTABLE VIAL IVPUSH SCH (13:28)
--- NOTE | 2019-08-17 13:49 | CONSULT ---
Admitting History and Physical - Primary Care Physician PCP: Ester Hill - Admission History of Present Illness: This is a 84 y/o man from [facility] with a significant PMHx of COPD, CHF ( reduced EF), CAD, Diabetes, HLD, HTN, Dementia. per ED record: Who presents to the ED for evaluation of lethargy. The patient was discharged on 07/29/19 after being admitted for sepsis. Selected Entries 08/13/19 08/14/19 08/14/19 18:00 06:00 10:00 Breakfast Lunch Supper 0 Temperature 98.7 F 99.2 F 08/14/19 08/14/19 08/15/19 14:00 22:00 14:00 Breakfast Lunch 25% 25% Supper Temperature 98.8 F 98.6 F 08/16/19 08/17/19 08/17/19 12:24 02:22 05:29 Breakfast Lunch 0 Supper Temperature 97.8 F 98.1 F 08/17/19 08/17/19 10:00 10:58 Breakfast NPO Lunch Supper Temperature 98.5 F Laboratory Tests 08/15/19 08/16/19 06:50 06:10 WBC 6.4 5.8 PEG considered for poor PO intake. Last seen by me 07/29- On Dys puree/honey thick liquids. Tolerating diet overtly. No longer coughing with PO intake. MBS equip down. If d/c'd to mi, out pt mbs r/o aspiration and for possible diet upgrade. 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 [employer]: Yes: Other (decreased hearing) Cardiovascular: Yes: CAD, CHF, HTN, Hyperlipdemia, Other (Right external carotid artery stenosis, tachycardia PPM) Pulmonary: Yes: COPD, O2 Dependent, Other (pulmonary nodules h/o invasive Aspergillosis) Gastrointestinal: Yes: Diverticulitis (as per today's CT), Diverticulosis, GERD , Other (left inguinal hernia, duodinitis, colon polyps) Renal/: Yes: Renal Inusuff, BPH, Hematuria, Other (bladder dysfunction) Heme/Onc: Yes: B12 Deficiency Infectious Disease: Yes: Other (h/o invasive pulmonary aspergillosis) Musculoskeletal: Yes: Chronic low back pain, Osteoarthritis, Other (dupuytren contracture) ENT: Yes: Other ([place]) Endocrine: Yes: Diabetes Mellitus - Past Surgical History Past Surgical History: Yes: Cholecystectomy (open), Permanent Pacemaker - Smoking History Smoking history: Unknown if ever smoked Have you smoked in the past 12 months: No If you are a former smoker, when did you quit?: 20 YRS AGO - Alcohol/Substance Use Hx Alcohol Use: No History of Substance Use: reports: None - Social History ADL: Family Assistance Occupation: , 4 children History of Recent Travel: No History - Admission Reason For Visit: CONGSTIVE HEART FAILURE, ANEMIA,DYSPNEA - Diagnostics X-ray: Report Reviewed (progressive congestive changes) - General Mental Status: Awake and Alert, Confused, Flat Affect Attention: Moderate Impairment Ability to Follow Directions: Poor Head/Neck Control: Fair - Hearing Hearing: Impaired, Both Hearing Aide: No Speech Evaluation - Communication Primary Language: [place] Communication: Yes: Simple Responses (verbalizes at times but did not respond to questions/directives. [place] - Speech Production Apraxia: Yes Intelligibility: Yes: WNL - Speech Characteristics Voice Loudness: Normal Voice Pitch: Yes: Normal Voice Phonatory-based Quality: Yes: Normal, Dysphonia (mild) Speech Pattern: Normal Articulation: Yes: Precise - Language/Auditory Comprehension Observation: Comprehends Conversational Speech: No - Swallow Evaluation/Bedside Assessment Current Nutritional Intake: Regular, Thin Liquids Oral Secretions: Yes: WFL Dentition: Yes: Edentulous Facial Symmetry at Rest: Symmetrical Laryngeal Movement: Labored,delay initiation Rate of Intake: WFL A-P Transit: WFL Coughing/Throat Clear: Yes (intermittent, thin liquids) Recommendations - Speech Evaluation, Impression/Plan Impression: CXR Progressive,congestive changes, R>L. Intermittent cough on thin liquid.Mainly accepts soda/water. Ensure provided today. PEG being considered. Pt is a full code. I suspect pt aspirating on thin liquids. Per emr,-as per pt living will-- states he does not want artificial nutrition or lifesupport-Pending Palliative care - Disposition Discharge to: Group Home Facility - Dysphagia Impressions/Plan Swallowing Skills: Impaired Dysphagia Impressions: Mild Impairment, Suspect Aspiration *Silent aspiration: cannot be R/O at bedside - Recommendations Diet Consistency: Dysphagia Pureed (mix in soup to drink with straw, nectatr thick) Medication Administration: Crushed with applesauce Liquids: [place] Thick Supplement: Other (d/c ensure, Trial 2 reyna HN, TID)
[2019-08-17] MEDS: ATORVASTATIN CA 20 MG TABLET (FP) PO SCH (21:53)
[2019-08-17] MEDS: LATANOPROST 0.005% OPHTH SOLN 2.5ML BOTTLE OU SCH (21:54)
[2019-08-18 07:50] LABS: HEMOGLOBIN 7.6 GM/dL (11.7-16.9); MCH 28.4 pg (25.7-33.7); MCHC 33.3 g/dl (32.0-35.9); MEAN CELL VOLUME 85.4 fl (80-96); MEAN PLT VOLUME 8.6 fl (7.5-11.1); PLATELET COUNT 349 K/MM3 (134-434); RBC 2.69 M/mm3 (4.00-5.60); RDW 18.4 % (11.9-15.9); WHITE BLOOD COUNT 7.1 K/mm3 (4.0-10.0)
[2019-08-18 07:54] LABS: BLOOD UREA NITROGEN 31.5 mg/dL (7-18); CALCIUM 8.8 mg/dL (8.5-10.1); CREATININE 2.7 mg/dL (0.55-1.3); POTASSIUM 4.3 mmol/L (3.5-5.1)
--- NOTE | 2019-08-18 10:17 | PN ---
Progress Note, Physician History of Present Illness: More awake today. Low oral intake undergoing calorie count. - Current Medication List Current Medications: Active Medications Acetaminophen (Tylenol Suppository -) 650 mg [place] Q6H PRN PRN Reason: FEVER Last Admin: 08/08/19 17:37 Dose: 650 mg Ascorbic Acid (Vitamin C -) 500 mg PO BID [facility] Last Admin: 08/17/19 21:53 Dose: Not Given Aspirin (Asa -) 81 mg PO DAILY [facility] Last Admin: 08/17/19 10:08 Dose: 81 mg Atorvastatin Calcium (Lipitor -) 20 mg PO HS [facility] Last Admin: 08/17/19 21:53 Dose: Not Given Carvedilol (Coreg -) 12.5 mg PO BID [facility] Last Admin: 08/17/19 21:53 Dose: Not Given Ferrous Sulfate (Feosol -) 325 mg PO BIDWM [facility] Last Admin: 08/17/19 17:30 Dose: Not Given Furosemide (Lasix Injection -) 40 mg IVPUSH DAILY [facility] Last Admin: 08/17/19 13:28 Dose: 40 mg Heparin Sodium (Porcine) (Heparin -) 5,000 unit SQ BID [facility] Last Admin: 08/17/19 21:54 Dose: Not Given Hydralazine HCl (Apresoline -) 10 mg PO BID [facility] Last Admin: 08/17/19 21:52 Dose: Not Given Isosorbide Mononitrate (Imdur -) 30 mg PO DAILY [facility] Last Admin: 08/17/19 10:08 Dose: 30 mg Latanoprost (Xalatan 0.005% Eye Drops -) 1 drop OU HS [facility] Last Admin: 08/17/19 21:54 Dose: Not Given Memantine (Namenda -) 5 mg PO BID [facility] Last Admin: 08/17/19 21:53 Dose: Not Given Pantoprazole Sodium (Protonix -) 40 mg PO DAILY [facility] Last Admin: 08/17/19 10:08 Dose: 40 mg - Objective Vital Signs: Vital Signs Temperature 98.2 F 08/18/19 06:00 Pulse Rate 88 08/18/19 06:00 Respiratory Rate 20 08/18/19 06:00 Blood Pressure 128/67 08/18/19 06:00 O2 Sat by Pulse Oximetry (%) 99 08/17/19 22:00 Constitutional: Yes: No Distress, Calm, Thin Neck: Yes: Supple Cardiovascular: Yes: Regular Rate and Rhythm Respiratory: Yes: Regular, Diminished, On Nasal O2 Gastrointestinal: Yes: Soft, Hypoactive Bowel Sounds Peripheral Pulses WNL: No Labs: CBC, BMP 08/18/19 05:49 08/18/19 05:49 INR, PTT INR 1.21 (0.83-1.09) H 08/02/19 21:25 - ....Imaging EKG: Report Reviewed (Tele: V-paced) Problem List - Problems (1) Acute on chronic combined systolic and diastolic congestive heart failure Code(s): I50.43 - ACUTE ON CHRONIC COMBINED SYSTOLIC AND DIASTOLIC HRT FAIL (2) Acute and chronic respiratory failure with hypoxia Code(s): J96.21 - ACUTE AND CHRONIC RESPIRATORY FAILURE WITH HYPOXIA (3) Acute on chronic renal failure Code(s): N17.9 - ACUTE KIDNEY FAILURE, UNSPECIFIED; N18.9 - CHRONIC KIDNEY DISEASE, UNSPECIFIED Qualifiers: Chronic kidney disease stage: stage 3 (moderate) (4) COPD (chronic obstructive pulmonary disease) Code(s): J44.9 - CHRONIC OBSTRUCTIVE PULMONARY DISEASE, UNSPECIFIED Qualifiers: (5) Cardiac pacemaker in situ Code(s): Z95.0 - PRESENCE OF CARDIAC PACEMAKER (6) ASHD (arteriosclerotic heart disease) Code(s): I25.10 - ATHSCL HEART DISEASE OF [place] CORONARY ARTERY W/O ANG PCTRS (7) Diabetes mellitus Code(s): E11.9 - TYPE 2 DIABETES MELLITUS WITHOUT COMPLICATIONS Qualifiers: Diabetes mellitus type: type 2 Diabetes 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 insulin use: without long wall shear operator use Diabetes mellitus complication status: with unspecified complications (8) Hyperlipidemia Code(s): E78.5 - HYPERLIPIDEMIA, UNSPECIFIED Qualifiers: Hyperlipidemia type: pure hypercholesterolemia Qualified Code(s): E78.00 - Pure hypercholesterolemia, unspecified (9) Hypertension Code(s): I10 - ESSENTIAL (PRIMARY) HYPERTENSION Qualifiers: Hypertension type: essential hypertension Qualified Code(s): I10 - Essential (primary) hypertension Assessment/Plan 10/26/14 Echo: Normal biventricular size and fxn without sig valve abnl 11/28/2016 Echo: Mod-severely decreased LV fxn with severe HK lateral and inferolateral, mold MR, TR RVSP 40-50 mmHg 11/12/2017 Echo: Mod-severely decreased LV fxn with severe HK inferior, mild TR mild effusion 06/02/2018 Echo: Mild-mod decreased LV fxn with apical dyskinesis, mild MR 07/21/2019 Echo: Mildly dilated LV with severely decreased LVEF, normal RV size and fxn, mild MR, tr TR, RV pacing 08/04/2019 Echo: Mildly dilated LV with severely decreased LVEF, normal RV size and fxn, tr TR RV pacemaker 1. Post Coag neg staph sepsis, Klebsiella PNA UTI 2. Chronic Hypoxic Respiratory Failure referable to 3. Acute on Chronic Systolic Heart Failure 4. 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 Advanced AV block post pacemaker implant interrogated 11/2016 7. HTN 8. Hypercholesterolemia 9. DHEERAJ 10. Acute on CKD back to baseline 11. Anemia of chronic disease with h/o diverticular disease 12. Dementia PLAN: 1. Resumed IV diuretics with monitor diuretic response, renal fxn and electrolytes 2. Continue Carvedilol 12.5 bid, Lipitor 20 qhs, ASA 81 qd, hydralazine 10 bid and Imdur 30 qd (BiDil) and holding losartan 100 qd pending renal fxn stabilization 3. Bronchodilators, completed abx course per C&S, wean FIO2 for saO2>90% 4. GI and DVT prophylaxis, dysphagia diet with calorie count encourage oral intake, per advanced directives, patient declines PEG insertion, EEG is normal, f/u brain MRI
[2019-08-18] MEDS: HEPARIN NA (PORCINE) 5,000 UNITS/ML 1ML VIAL SQ SCH ×2 (10:30→21:45)
[2019-08-18] MEDS: hydrALAZINE HCL 10 MG TABLET PO SCH ×2 (10:30→21:39)
[2019-08-18] MEDS: PANTOPRAZOLE 40 MG TABLET (FP) PO SCH (10:30)
[2019-08-18] MEDS: FUROSEMIDE 40 MG/4 ML INJECTABLE VIAL IVPUSH SCH (10:30)
[2019-08-18] MEDS: ISOSORBIDE MONONITRATE 30 MG TAB.SR.24H (FP) PO SCH (10:30)
[2019-08-18] MEDS: FERROUS SO4 325 MG TABLET (FP) PO SCH ×2 (10:30→17:00)
[2019-08-18] MEDS: ASCORBIC ACID 500 MG TABLET (FP) PO SCH ×2 (10:30→21:39)
[2019-08-18] MEDS: ASPIRIN 81 MG CHEWABLE TABLETS PO SCH (10:30)
[2019-08-18] MEDS: CARVEDILOL 12.5 MG TABLET (FP) PO SCH ×2 (10:31→21:39)
[2019-08-18] MEDS: MEMANTINE HCL 5 MG TABLET (UD) PO SCH ×2 (10:31→21:39)
--- NOTE | 2019-08-18 10:47 | PN ---
Progress Note (short form) - Note Progress Note: not eating much Living will states that pt does not want artificial nutrition awaiting palliative care eval for further recommendation Vital Signs - 24 hr 08/17/19 08/17/19 08/18/19 21:00 22:00 02:25 Temperature 98.6 F Pulse Rate 81 Respiratory 20 20 Rate Blood Pressure 134/75 O2 Sat by Pulse 99 99 Oximetry (%) 08/18/19 08/18/19 08/18/19 06:00 09:00 10:00 Temperature 98.2 F 98.8 F Pulse Rate 88 90 Respiratory 20 20 20 Rate Blood Pressure 128/67 144/77 O2 Sat by Pulse 99 98 Oximetry (%) 08/18/19 14:00 Temperature 99 F Pulse Rate 96 H Respiratory 22 H Rate Blood Pressure 129/71 O2 Sat by Pulse Oximetry (%) Current Medications Generic Name Dose Route Start Last Admin Trade Name Freq PRN Reason Stop Dose Admin Acetaminophen 650 mg 08/18/19 17:38 Tylenol Suppository - [place] Q6H PRN FEVER Ascorbic Acid 500 mg 08/18/19 22:00 Vitamin C - PO BID [facility] Aspirin 81 mg 08/19/19 10:00 Asa - PO DAILY [facility] Atorvastatin Calcium 20 mg 08/18/19 22:00 Lipitor - PO HS [facility] Carvedilol 12.5 mg 08/18/19 22:00 Coreg - PO BID [facility] Ferrous Sulfate 325 mg 08/19/19 08:00 Feosol - PO BIDWM DINESH Furosemide 40 mg 08/17/19 11:00 08/18/19 10:30 Lasix Injection - IVPUSH 40 mg DAILY DINESH Administration Heparin Sodium (Porcine) 5,000 unit 08/18/19 22:00 Heparin - SQ BID DINESH Hydralazine HCl 10 mg 08/18/19 22:00 Apresoline - PO BID [facility] Amino Acids 1,000 mls @ 42 mls/hr 08/18/19 18:45 Clinimix - IV Q24H DINESH Isosorbide Mononitrate 30 mg 08/19/19 10:00 Imdur - PO DAILY DINESH Latanoprost 1 drop 08/18/19 22:00 Xalatan 0.005% Eye Drops - OU HS DINESH Memantine 5 mg 08/18/19 22:00 Namenda - PO BID DINESH Pantoprazole Sodium 40 mg 08/19/19 10:00 Protonix - PO DAILY [facility] Laboratory Results - last 24 hr 08/18/19 08/18/19 05:49 05:49 WBC 7.1 RBC 2.69 L Hgb 7.6 L Hct 23.0 L MCV 85.4 MCH 28.4 MCHC 33.3 RDW 18.4 H Plt Count 349 MPV 8.6 Sodium 140 Potassium 4.3 Chloride 109 H Carbon Dioxide 20 L Anion Gap 11 BUN 31.5 H Creatinine 2.7 H Est GFR (CKD-EPI)AfAm 23.83 Est GFR (CKD-EPI)NonAf 20.56 Random Glucose 74 Calcium 8.8 S1 S2 RRR Lungs decreased breath sounds Abd- soft, obese, NT No edema PLAN Iv antibiotics dc monitor renal function --stable Neurology eval noted - on aricept -->advance dementia spoke with GI as per pt living will-- states he does not want artificial nutrition or lifesupport palliative care eval encourage PO start clinimix Problem List - Problems (1) Acute on chronic combined systolic and diastolic congestive heart failure Code(s): I50.43 - ACUTE ON CHRONIC COMBINED SYSTOLIC AND DIASTOLIC HRT FAIL (2) Anemia Code(s): D64.9 - ANEMIA, UNSPECIFIED Qualifiers: Anemia type: unspecified type Qualified Code(s): D64.9 - Anemia, unspecified (3) Acute and chronic respiratory failure with hypoxia Code(s): J96.21 - ACUTE AND CHRONIC RESPIRATORY FAILURE WITH HYPOXIA (4) Acute on chronic renal failure Code(s): N17.9 - ACUTE KIDNEY FAILURE, UNSPECIFIED; N18.9 - CHRONIC KIDNEY DISEASE, UNSPECIFIED Qualifiers: Chronic kidney disease stage: stage 3 (moderate) (5) CHF (congestive heart failure) Code(s): I50.9 - HEART FAILURE, UNSPECIFIED Qualifiers: Heart failure type: combined systolic and diastolic Heart failure chronicity: chronic Qualified Code(s): I50.42 - Chronic combined systolic ( congestive) and diastolic (congestive) heart failure (6) COPD (chronic obstructive pulmonary disease) Code(s): J44.9 - CHRONIC OBSTRUCTIVE PULMONARY DISEASE, UNSPECIFIED Qualifiers: (7) Pneumonia Code(s): J18.9 - PNEUMONIA, UNSPECIFIED ORGANISM (8) Malnutrition Code(s): E46 - UNSPECIFIED PROTEIN-CALORIE MALNUTRITION (9) Functional quadriplegia Code(s): R53.2 - FUNCTIONAL QUADRIPLEGIA
--- NOTE | 2019-08-18 12:59 | PN ---
Progress Note (short form) - Note Progress Note: patient with advanced directive in place. Ate 25 percent of his meal. Please recall if PEG is an option
--- NOTE | 2019-08-18 15:55 | PN ---
Progress Note, Physician History of Present Illness: Pt seen and examined at bedside. He is awake and appears comfortable. - Current Medication List Current Medications: Active Medications Acetaminophen (Tylenol Suppository -) 650 mg [place] Q6H PRN PRN Reason: FEVER Last Admin: 08/08/19 17:37 Dose: 650 mg Ascorbic Acid (Vitamin C -) 500 mg PO BID [facility] Last Admin: 08/18/19 10:30 Dose: 500 mg Aspirin (Asa -) 81 mg PO DAILY [facility] Last Admin: 08/18/19 10:30 Dose: 81 mg Atorvastatin Calcium (Lipitor -) 20 mg PO HS [facility] Last Admin: 08/17/19 21:53 Dose: Not Given Carvedilol (Coreg -) 12.5 mg PO BID [facility] Last Admin: 08/18/19 10:31 Dose: 12.5 mg Ferrous Sulfate (Feosol -) 325 mg PO BIDWM [facility] Last Admin: 08/18/19 10:30 Dose: 325 mg Furosemide (Lasix Injection -) 40 mg IVPUSH DAILY [facility] Last Admin: 08/18/19 10:30 Dose: 40 mg Heparin Sodium (Porcine) (Heparin -) 5,000 unit SQ BID [facility] Last Admin: 08/18/19 10:30 Dose: 5,000 unit Hydralazine HCl (Apresoline -) 10 mg PO BID [facility] Last Admin: 08/18/19 10:30 Dose: 10 mg Isosorbide Mononitrate (Imdur -) 30 mg PO DAILY [facility] Last Admin: 08/18/19 10:30 Dose: 30 mg Latanoprost (Xalatan 0.005% Eye Drops -) 1 drop OU HS [facility] Last Admin: 08/17/19 21:54 Dose: Not Given Memantine (Namenda -) 5 mg PO BID [facility] Last Admin: 08/18/19 10:31 Dose: 5 mg Pantoprazole Sodium (Protonix -) 40 mg PO DAILY [facility] Last Admin: 08/18/19 10:30 Dose: 40 mg - Objective Vital Signs: Vital Signs Temperature 99 F 08/18/19 14:00 Pulse Rate 96 H 08/18/19 14:00 Respiratory Rate 22 H 08/18/19 14:00 Blood Pressure 129/71 08/18/19 14:00 O2 Sat by Pulse Oximetry (%) 98 08/18/19 10:00 Constitutional: Yes: Calm Eyes: Yes: Conjunctiva Clear HENT: Yes: Atraumatic Neck: Yes: Supple Cardiovascular: Yes: S1, S2 Respiratory: Yes: CTA Bilaterally Gastrointestinal: Yes: Normal Bowel Sounds, Soft Genitourinary: Yes: Incontinence Musculoskeletal: Yes: WNL Edema: No Neurological: Yes: Confusion Labs: CBC, BMP 08/18/19 05:49 08/18/19 05:49 INR, PTT INR 1.21 (0.83-1.09) H 08/02/19 21:25 Problem List - Problems (1) CKD (chronic kidney disease) Code(s): N18.9 - CHRONIC KIDNEY DISEASE, UNSPECIFIED Qualifiers: Chronic kidney disease stage: unspecified stage Qualified Code(s): N18.9 - Chronic kidney disease, unspecified (2) Acute kidney injury Code(s): N17.9 - ACUTE KIDNEY FAILURE, UNSPECIFIED Assessment/Plan Current Medications Generic Name Dose Route Start Last Admin Trade Name Freq PRN Reason Stop Dose Admin Acetaminophen 650 mg 08/05/19 17:07 08/08/19 17:37 Tylenol Suppository - [place] 650 mg Q6H PRN Administration FEVER Ascorbic Acid 500 mg 08/11/19 11:00 08/18/19 10:30 Vitamin C - PO 500 mg BID [facility]INESH Administration Aspirin 81 mg 08/10/19 10:00 08/18/19 10:30 Asa - PO 81 mg DAILY DINESH Administration Atorvastatin Calcium 20 mg 08/03/19 22:00 08/17/19 21:53 Lipitor - PO Not Given HS [facility]INESH Carvedilol 12.5 mg 08/03/19 10:00 08/18/19 10:31 Coreg - PO 12.5 mg BID IDN[facility] Administration Ferrous Sulfate 325 mg 08/11/19 17:30 08/18/19 10:30 Feosol - PO 325 mg BIDWM DINESH Administration Furosemide 40 mg 08/17/19 11:00 08/18/19 10:30 Lasix Injection - IVPUSH 40 mg DAILY DINESH Administration Heparin Sodium (Porcine) 5,000 unit 08/04/19 22:00 08/18/19 10:30 Heparin - SQ 5,000 unit BID DINESH Administration Hydralazine HCl 10 mg 08/06/19 12:15 08/18/19 10:30 Apresoline - PO 10 mg BID [facility]INESH Administration Isosorbide Mononitrate 30 mg 08/10/19 11:00 08/18/19 10:30 Imdur - PO 30 mg DAILY DINESH Administration Latanoprost 1 drop 08/03/19 22:00 08/17/19 21:54 Xalatan 0.005% Eye Drops - OU Not Given HS DINESH Memantine 5 mg 08/09/19 22:00 08/18/19 10:31 Namenda - PO 5 mg BID [facility]IN[facility] Administration Pantoprazole Sodium 40 mg 08/03/19 10:00 08/18/19 10:30 Protonix - PO 40 mg DAILY DINESH Administration Impression 1. LAURA 2. lethargy 3. recent pna and sepsis 4. ckd 5. copd 6. dm 7. hx htn 8. 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
[2019-08-18] MEDS ORDERED: ACETAMINOPHEN 650 MG SUPP.RECT PR PRN (17:38)
[2019-08-18] MEDS: ATORVASTATIN CA 20 MG TABLET (FP) PO SCH (21:39)
[2019-08-18] MEDS: AMINO ACIDS 4.25%/D5W 1,000 ML IV SCH (21:44)
[2019-08-18] MEDS: LATANOPROST 0.005% OPHTH SOLN 2.5ML BOTTLE OU SCH (21:48)
[2019-08-19] MEDS: FERROUS SO4 325 MG TABLET (FP) PO SCH ×2 (09:22→17:11)
--- NOTE | 2019-08-19 10:31 | PN ---
Progress Note, Physician History of Present Illness: More awake today. Low oral intake ate 25% meals. - Current Medication List Current Medications: Active Medications Acetaminophen (Tylenol Suppository -) 650 mg [place] Q6H PRN PRN Reason: FEVER Ascorbic Acid (Vitamin C -) 500 mg PO BID [facility] Last Admin: 08/18/19 21:39 Dose: 500 mg Aspirin (Asa -) 81 mg PO DAILY [facility] Atorvastatin Calcium (Lipitor -) 20 mg PO HS [facility] Last Admin: 08/18/19 21:39 Dose: 20 mg Carvedilol (Coreg -) 12.5 mg PO BID [facility] Last Admin: 08/18/19 21:39 Dose: 12.5 mg Ferrous Sulfate (Feosol -) 325 mg PO BIDWM [facility] Furosemide (Lasix Injection -) 40 mg IVPUSH DAILY [facility] Last Admin: 08/18/19 10:30 Dose: 40 mg Heparin Sodium (Porcine) (Heparin -) 5,000 unit SQ BID [facility] Last Admin: 08/18/19 21:45 Dose: 5,000 unit Hydralazine HCl (Apresoline -) 10 mg PO BID [facility] Last Admin: 08/18/19 21:39 Dose: 10 mg Amino Acids (Clinimix -) 1,000 mls @ 42 mls/hr IV Q24H [facility] Last Admin: 08/18/19 21:44 Dose: 42 mls/hr Isosorbide Mononitrate (Imdur -) 30 mg PO DAILY [facility] Latanoprost (Xalatan 0.005% Eye Drops -) 1 drop OU HS [facility] Last Admin: 08/18/19 21:48 Dose: 1 drop Memantine (Namenda -) 5 mg PO BID [facility] Last Admin: 08/18/19 21:39 Dose: 5 mg Pantoprazole Sodium (Protonix -) 40 mg PO DAILY [facility] - Objective Vital Signs: Vital Signs Temperature 99.0 F 08/19/19 06:00 Pulse Rate 108 H 08/19/19 06:00 Respiratory Rate 20 08/19/19 06:00 Blood Pressure 104/60 08/19/19 06:00 O2 Sat by Pulse Oximetry (%) 100 08/18/19 22:00 Constitutional: Yes: No Distress, Calm, Thin Neck: Yes: Supple Cardiovascular: Yes: Regular Rate and Rhythm Respiratory: Yes: Regular, Diminished, On Nasal O2 Gastrointestinal: Yes: Soft, Hypoactive Bowel Sounds Edema: No Labs: CBC, BMP 08/18/19 05:49 08/18/19 05:49 INR, PTT INR 1.21 (0.83-1.09) H 08/02/19 21:25 - ....Imaging EKG: Report Reviewed (Tele: NSR) Problem List - Problems (1) Acute on chronic combined systolic and diastolic congestive heart failure Code(s): I50.43 - ACUTE ON CHRONIC COMBINED SYSTOLIC AND DIASTOLIC HRT FAIL (2) Acute and chronic respiratory failure with hypoxia Code(s): J96.21 - ACUTE AND CHRONIC RESPIRATORY FAILURE WITH HYPOXIA (3) Acute on chronic renal failure Code(s): N17.9 - ACUTE KIDNEY FAILURE, UNSPECIFIED; N18.9 - CHRONIC KIDNEY DISEASE, UNSPECIFIED Qualifiers: Chronic kidney disease stage: stage 3 (moderate) (4) COPD (chronic obstructive pulmonary disease) Code(s): J44.9 - CHRONIC OBSTRUCTIVE PULMONARY DISEASE, UNSPECIFIED Qualifiers: (5) Cardiac pacemaker in situ Code(s): Z95.0 - PRESENCE OF CARDIAC PACEMAKER (6) ASHD (arteriosclerotic heart disease) Code(s): I25.10 - ATHSCL HEART DISEASE OF [place] CORONARY ARTERY W/O ANG PCTRS (7) Diabetes mellitus Code(s): E11.9 - TYPE 2 DIABETES MELLITUS WITHOUT COMPLICATIONS Qualifiers: Diabetes mellitus type: type 2 Diabetes mellitus 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 press operator 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 use: without terminal press operator use Diabetes mellitus complication status: with unspecified complications (8) Hyperlipidemia Code(s): E78.5 - HYPERLIPIDEMIA, UNSPECIFIED Qualifiers: Hyperlipidemia type: pure hypercholesterolemia Qualified Code(s): E78.00 - Pure hypercholesterolemia, unspecified (9) Hypertension Code(s): I10 - ESSENTIAL (PRIMARY) HYPERTENSION Qualifiers: Hypertension type: essential hypertension Qualified Code(s): I10 - Essential (primary) hypertension Assessment/Plan 10/26/14 Echo: Normal biventricular size and fxn without sig valve abnl 11/28/2016 Echo: Mod-severely decreased LV fxn with severe HK lateral and inferolateral, mold MR, TR RVSP 40-50 mmHg 11/12/2017 Echo: Mod-severely decreased LV fxn with severe HK inferior, mild TR mild effusion 06/02/2018 Echo: Mild-mod decreased LV fxn with apical dyskinesis, mild MR 07/21/2019 Echo: Mildly dilated LV with severely decreased LVEF, normal RV size and fxn, mild MR, tr TR, RV pacing 08/04/2019 Echo: Mildly dilated LV with severely decreased LVEF, normal RV size and fxn, tr TR RV pacemaker 1. Post Coag neg staph sepsis, Klebsiella PNA UTI 2. Chronic Hypoxic Respiratory Failure referable to 3. Acute on Chronic Systolic Heart Failure 4. 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 Advanced AV block post pacemaker implant interrogated 11/2016 7. HTN 8. Hypercholesterolemia 9. DHEERAJ 10. Acute on CKD back to baseline 11. Anemia of chronic disease with h/o diverticular disease 12. Dementia PLAN: 1. Resume oral diuretics with monitor diuretic response, renal fxn and electrolytes 2. Continue Carvedilol 12.5 bid, Lipitor 20 qhs, ASA 81 qd, hydralazine 10 bid and Imdur 30 qd (BiDil) and holding losartan 100 qd pending renal fxn stabilization 3. Bronchodilators, completed abx course per C&S, wean FIO2 for saO2>90% 4. GI and DVT prophylaxis, dysphagia diet with calorie count encourage oral intake, per advanced directives, patient declines PEG insertion, EEG is normal, f/u brain MRI
--- NOTE | 2019-08-19 11:29 | PN ---
Progress Note (short form) - Note Progress Note: not eating much -- just wants water Living will states that pt does not want artificial nutrition awaiting palliative care eval for further recommendation Vital Signs - 24 hr 08/18/19 08/18/19 08/18/19 14:00 19:32 21:00 Temperature 99 F 98.2 F Pulse Rate 96 H 105 H Respiratory 22 H 20 20 Rate Blood Pressure 129/71 137/79 O2 Sat by Pulse 100 Oximetry (%) 08/18/19 08/19/19 08/19/19 22:00 02:00 06:00 Temperature 98.4 F 97.5 F L 99.0 F Pulse Rate 87 78 108 H Respiratory 20 20 20 Rate Blood Pressure 139/67 131/68 104/60 O2 Sat by Pulse 100 Oximetry (%) Current Medications Generic Name Dose Route Start Last Admin Trade Name Freq PRN Reason Stop Dose Admin Acetaminophen 650 mg 08/18/19 17:38 Tylenol Suppository - [place] Q6H PRN FEVER Ascorbic Acid 500 mg 08/18/19 22:00 08/18/19 21:39 Vitamin C - PO 500 mg BID DINESH Administration Aspirin 81 mg 08/19/19 10:00 Asa - PO DAILY [facility] Atorvastatin Calcium 20 mg 08/18/19 22:00 08/18/19 21:39 Lipitor - PO 20 mg HS DINESH Administration Carvedilol 12.5 mg 08/18/19 22:00 08/18/19 21:39 Coreg - PO 12.5 mg BID DINESH Administration Ferrous Sulfate 325 mg 08/19/19 08:00 Feosol - PO BIDWM [facility] Heparin Sodium (Porcine) 5,000 unit 08/18/19 22:00 08/18/19 21:45 Heparin - SQ 5,000 unit BID DINESH Administration Hydralazine HCl 10 mg 08/18/19 22:00 08/18/19 21:39 Apresoline - PO 10 mg BID DINESH Administration Amino Acids 1,000 mls @ 42 mls/hr 08/18/19 18:45 08/18/19 21:44 Clinimix - IV 42 mls/hr Q24H DINESH Administration Isosorbide Mononitrate 30 mg 08/19/19 10:00 Imdur - PO DAILY [facility] Latanoprost 1 drop 08/18/19 22:00 08/18/19 21:48 Xalatan 0.005% Eye Drops - OU 1 drop HS DINESH Administration Memantine 5 mg 08/18/19 22:00 08/18/19 21:39 Namenda - PO 5 mg BID DINESH Administration Pantoprazole Sodium 40 mg 08/19/19 10:00 Protonix - PO DAILY DIN[facility] Torsemide 20 mg 08/20/19 10:00 Demadex - PO DAILY DINESH S1 S2 RRR Lungs decreased breath sounds Abd- soft, obese, NT No edema PLAN Iv antibiotics dc on iv clinimix monitor renal function --stable Neurology eval noted - on aricept -->advance dementia spoke with GI as per pt living will-- states he does not want artificial nutrition or lifesupport palliative care eval encourage PO on clinimix Problem List - Problems (1) Acute on chronic combined systolic and diastolic congestive heart failure Code(s): I50.43 - ACUTE ON CHRONIC COMBINED SYSTOLIC AND DIASTOLIC HRT FAIL (2) Anemia Code(s): D64.9 - ANEMIA, UNSPECIFIED Qualifiers: Anemia type: unspecified type Qualified Code(s): D64.9 - Anemia, unspecified (3) Acute and chronic respiratory failure with hypoxia Code(s): J96.21 - ACUTE AND CHRONIC RESPIRATORY FAILURE WITH HYPOXIA (4) Acute on chronic renal failure Code(s): N17.9 - ACUTE KIDNEY FAILURE, UNSPECIFIED; N18.9 - CHRONIC KIDNEY DISEASE, UNSPECIFIED Qualifiers: Chronic kidney disease stage: stage 3 (moderate) (5) CHF (congestive heart failure) Code(s): I50.9 - HEART FAILURE, UNSPECIFIED Qualifiers: Heart failure type: combined systolic and diastolic Heart failure chronicity: chronic Qualified Code(s): I50.42 - Chronic combined systolic ( congestive) and diastolic (congestive) heart failure (6) COPD (chronic obstructive pulmonary disease) Code(s): J44.9 - CHRONIC OBSTRUCTIVE PULMONARY DISEASE, UNSPECIFIED Qualifiers: (7) Pneumonia Code(s): J18.9 - PNEUMONIA, UNSPECIFIED ORGANISM (8) Malnutrition Code(s): E46 - UNSPECIFIED PROTEIN-CALORIE MALNUTRITION (9) Functional quadriplegia Code(s): R53.2 - FUNCTIONAL QUADRIPLEGIA
--- NOTE | 2019-08-19 12:21 | PN ---
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 Living will. Pending Palliative care consult,. Taking 1/2 can 2 reyna per nursing. Intermittent cough via straw. Better from cup. Receives it tid. Diet order is Nepro/magic cup. Appetite stimulant? Encourage supplements throughout the day. Cup drinking, avoid straws. Mix Magic cup, once melted into pudding, mixed with nepro or water to drink from cup.
--- NOTE | 2019-08-19 12:47 | PN ---
Progress Note, Physician History of Present Illness: Pt seen and examined at bedside. He is awake and appears comfortable. He is now on clinimix. - Current Medication List Current Medications: Active Medications Acetaminophen (Tylenol Suppository -) 650 mg [place] Q6H PRN PRN Reason: FEVER Ascorbic Acid (Vitamin C -) 500 mg PO BID [facility] Last Admin: 08/18/19 21:39 Dose: 500 mg Aspirin (Asa -) 81 mg PO DAILY [facility] Atorvastatin Calcium (Lipitor -) 20 mg PO HS [facility] Last Admin: 08/18/19 21:39 Dose: 20 mg Carvedilol (Coreg -) 12.5 mg PO BID [facility] Last Admin: 08/18/19 21:39 Dose: 12.5 mg Ferrous Sulfate (Feosol -) 325 mg PO BIDWM [facility] Heparin Sodium (Porcine) (Heparin -) 5,000 unit SQ BID [facility] Last Admin: 08/18/19 21:45 Dose: 5,000 unit Hydralazine HCl (Apresoline -) 10 mg PO BID [facility] Last Admin: 08/18/19 21:39 Dose: 10 mg Amino Acids (Clinimix -) 1,000 mls @ 42 mls/hr IV Q24H [facility] Last Admin: 08/18/19 21:44 Dose: 42 mls/hr Isosorbide Mononitrate (Imdur -) 30 mg PO DAILY [facility] Latanoprost (Xalatan 0.005% Eye Drops -) 1 drop OU HS [facility] Last Admin: 08/18/19 21:48 Dose: 1 drop Memantine (Namenda -) 5 mg PO BID [facility] Last Admin: 08/18/19 21:39 Dose: 5 mg Pantoprazole Sodium (Protonix -) 40 mg PO DAILY [facility] Torsemide (Demadex -) 20 mg PO DAILY [facility] - Objective Vital Signs: Vital Signs Temperature 98.9 F 08/19/19 10:00 Pulse Rate 75 08/19/19 10:00 Respiratory Rate 20 08/19/19 10:00 Blood Pressure 91/47 L 08/19/19 10:00 O2 Sat by Pulse Oximetry (%) 100 08/19/19 09:00 Constitutional: Yes: Calm Eyes: Yes: Conjunctiva Clear HENT: Yes: Atraumatic Neck: Yes: Supple Cardiovascular: Yes: S1, S2 Respiratory: Yes: CTA Bilaterally Gastrointestinal: Yes: Normal Bowel Sounds, Soft Genitourinary: Yes: Incontinence Musculoskeletal: Yes: Muscle Weakness Edema: No Integumentary: Yes: WNL Neurological: Yes: Confusion Labs: CBC, BMP 08/18/19 05:49 08/18/19 05:49 INR, PTT INR 1.21 (0.83-1.09) H 08/02/19 21:25 Problem List - Problems (1) CKD (chronic kidney disease) Code(s): N18.9 - CHRONIC KIDNEY DISEASE, UNSPECIFIED Qualifiers: Chronic kidney disease stage: unspecified stage Qualified Code(s): N18.9 - Chronic kidney disease, unspecified (2) Acute kidney injury Code(s): N17.9 - ACUTE KIDNEY FAILURE, UNSPECIFIED Assessment/Plan Current Medications Generic Name Dose Route Start Last Admin Trade Name Freq PRN Reason Stop Dose Admin Acetaminophen 650 mg 08/18/19 17:38 Tylenol Suppository - [place] Q6H PRN FEVER Ascorbic Acid 500 mg 08/18/19 22:00 08/18/19 21:39 Vitamin C - PO 500 mg BID DINESH Administration Aspirin 81 mg 08/19/19 10:00 Asa - PO DAILY [facility] Atorvastatin Calcium 20 mg 08/18/19 22:00 08/18/19 21:39 Lipitor - PO 20 mg HS DINESH Administration Carvedilol 12.5 mg 08/18/19 22:00 08/18/19 21:39 Coreg - PO 12.5 mg BID DINESH Administration Ferrous Sulfate 325 mg 08/19/19 08:00 Feosol - PO BIDWM [facility] Heparin Sodium (Porcine) 5,000 unit 08/18/19 22:00 08/18/19 21:45 Heparin - SQ 5,000 unit BID DINESH Administration Hydralazine HCl 10 mg 08/18/19 22:00 08/18/19 21:39 Apresoline - PO 10 mg BID DINESH Administration Amino Acids 1,000 mls @ 42 mls/hr 08/18/19 18:45 08/18/19 21:44 Clinimix - IV 42 mls/hr Q24H DINESH Administration Isosorbide Mononitrate 30 mg 08/19/19 10:00 Imdur - PO DAILY [facility] Latanoprost 1 drop 08/18/19 22:00 08/18/19 21:48 Xalatan 0.005% Eye Drops - OU 1 drop HS [facility]INESH Administration Memantine 5 mg 08/18/19 22:00 08/18/19 21:39 Namenda - PO 5 mg BID DINESH Administration Pantoprazole Sodium 40 mg 08/19/19 10:00 Protonix - PO DAILY [facility] Torsemide 20 mg 08/20/19 10:00 Demadex - PO DAILY [facility]IN[facility] Impression 1. LAURA 2. lethargy 3. recent pna and sepsis 4. ckd 5. copd 6. dm 7. hx htn 8. dementia Plan - renal function stable - monitor lytes on clinimix - will follow prn - encourage PO intake - avoid nephrotoxins - monitor bp
[2019-08-19] MEDS: ASPIRIN 81 MG CHEWABLE TABLETS PO SCH (13:22)
[2019-08-19] MEDS: hydrALAZINE HCL 10 MG TABLET PO SCH ×2 (13:22→21:45)
[2019-08-19] MEDS: PANTOPRAZOLE 40 MG TABLET (FP) PO SCH (13:23)
[2019-08-19] MEDS: ISOSORBIDE MONONITRATE 30 MG TAB.SR.24H (FP) PO SCH (13:23)
[2019-08-19] MEDS: ASCORBIC ACID 500 MG TABLET (FP) PO SCH ×2 (13:23→21:40)
[2019-08-19] MEDS: CARVEDILOL 12.5 MG TABLET (FP) PO SCH ×2 (13:23→21:41)
[2019-08-19] MEDS: HEPARIN NA (PORCINE) 5,000 UNITS/ML 1ML VIAL SQ SCH ×2 (13:23→21:42)
[2019-08-19] MEDS: MEMANTINE HCL 5 MG TABLET (UD) PO SCH ×2 (13:23→21:41)
--- NOTE | 2019-08-19 14:58 | PN ---
Progress Note, Physician History of Present Illness: comfortable on clinimax - Current Medication List Current Medications: Active Medications Acetaminophen (Tylenol Suppository -) 650 mg [place] Q6H PRN PRN Reason: FEVER Ascorbic Acid (Vitamin C -) 500 mg PO BID [facility] Last Admin: 08/19/19 13:23 Dose: 500 mg Aspirin (Asa -) 81 mg PO DAILY [facility] Last Admin: 08/19/19 13:22 Dose: 81 mg Atorvastatin Calcium (Lipitor -) 20 mg PO HS [facility] Last Admin: 08/18/19 21:39 Dose: 20 mg Carvedilol (Coreg -) 12.5 mg PO BID [facility] Last Admin: 08/19/19 13:23 Dose: Not Given Ferrous Sulfate (Feosol -) 325 mg PO BIDWM [facility] Last Admin: 08/19/19 09:22 Dose: Not Given Heparin Sodium (Porcine) (Heparin -) 5,000 unit SQ BID [facility] Last Admin: 08/19/19 13:23 Dose: 5,000 unit Hydralazine HCl (Apresoline -) 10 mg PO BID [facility] Last Admin: 08/19/19 13:22 Dose: Not Given Amino Acids (Clinimix -) 1,000 mls @ 42 mls/hr IV Q24H [facility] Last Admin: 08/18/19 21:44 Dose: 42 mls/hr Isosorbide Mononitrate (Imdur -) 30 mg PO DAILY [facility] Last Admin: 08/19/19 13:23 Dose: Not Given Latanoprost (Xalatan 0.005% Eye Drops -) 1 drop OU HS [facility] Last Admin: 08/18/19 21:48 Dose: 1 drop Memantine (Namenda -) 5 mg PO BID [facility] Last Admin: 08/19/19 13:23 Dose: 5 mg Pantoprazole Sodium (Protonix -) 40 mg PO DAILY [facility] Last Admin: 08/19/19 13:23 Dose: 40 mg Torsemide (Demadex -) 20 mg PO DAILY [facility] - Objective Vital Signs: Vital Signs Temperature 98.7 F 08/19/19 13:46 Pulse Rate 78 08/19/19 13:46 Respiratory Rate 22 H 08/19/19 13:46 Blood Pressure 104/58 L 08/19/19 13:46 O2 Sat by Pulse Oximetry (%) 100 08/19/19 09:00 Constitutional: Yes: No Distress, Calm Cardiovascular: Yes: S1, S2 Respiratory: Yes: Regular, CTA Bilaterally Gastrointestinal: Yes: Normal Bowel Sounds, Soft Musculoskeletal: Yes: WNL Extremities: Yes: Other Neurological: Yes: Alert, Other Psychiatric: Yes: Other Labs: CBC, BMP 08/18/19 05:49 08/18/19 05:49 INR, PTT INR 1.21 (0.83-1.09) H 08/02/19 21:25 Assessment/Plan Problem List - Problems (1) Acute on chronic combined systolic and diastolic congestive heart failure Code(s): I50.43 - ACUTE ON CHRONIC COMBINED SYSTOLIC AND DIASTOLIC HRT FAIL (2) Anemia Code(s): D64.9 - ANEMIA, UNSPECIFIED Qualifiers: Anemia type: unspecified type Qualified Code(s): D64.9 - Anemia, unspecified (3) Acute and chronic respiratory failure with hypoxia Code(s): J96.21 - ACUTE AND CHRONIC RESPIRATORY FAILURE WITH HYPOXIA (4) Acute on chronic renal failure Code(s): N17.9 - ACUTE KIDNEY FAILURE, UNSPECIFIED; N18.9 - CHRONIC KIDNEY DISEASE, UNSPECIFIED Qualifiers: Chronic kidney disease stage: stage 3 (moderate) (5) CHF (congestive heart failure) Code(s): I50.9 - HEART FAILURE, UNSPECIFIED Qualifiers: Heart failure type: combined systolic and diastolic Heart failure chronicity: chronic Qualified Code(s): I50.42 - Chronic combined systolic ( congestive) and diastolic (congestive) heart failure (6) COPD (chronic obstructive pulmonary disease) Code(s): J44.9 - CHRONIC OBSTRUCTIVE PULMONARY DISEASE, UNSPECIFIED Qualifiers: (7) Pneumonia Code(s): J18.9 - PNEUMONIA, UNSPECIFIED ORGANISM plan continue current mgmt nutrition rest as per the team monitor
[2019-08-19] MEDS: ATORVASTATIN CA 20 MG TABLET (FP) PO SCH (21:41)
[2019-08-19] MEDS: LATANOPROST 0.005% OPHTH SOLN 2.5ML BOTTLE OU SCH (21:42)
[2019-08-19] MEDS: AMINO ACIDS 4.25%/D5W 1,000 ML IV SCH (23:33)
[2019-08-20] MEDS ORDERED: TORSEMIDE 20 MG TABLET (FP) PO SCH (10:00)
[2019-08-20] MEDS: HEPARIN NA (PORCINE) 5,000 UNITS/ML 1ML VIAL SQ SCH ×2 (10:03→22:36)
--- NOTE | 2019-08-20 10:55 | PN ---
Progress Note, Physician History of Present Illness: More awake today. Low oral intake ate 10% meals. - Current Medication List Current Medications: Active Medications Acetaminophen (Tylenol Suppository -) 650 mg [place] Q6H PRN PRN Reason: FEVER Ascorbic Acid (Vitamin C -) 500 mg PO BID [facility] Last Admin: 08/19/19 21:40 Dose: 500 mg Aspirin (Asa -) 81 mg PO DAILY [facility] Last Admin: 08/19/19 13:22 Dose: 81 mg Atorvastatin Calcium (Lipitor -) 20 mg PO HS [facility] Last Admin: 08/19/19 21:41 Dose: 20 mg Carvedilol (Coreg -) 12.5 mg PO BID [facility] Last Admin: 08/19/19 21:41 Dose: 12.5 mg Ferrous Sulfate (Feosol -) 325 mg PO BIDWM [facility] Last Admin: 08/19/19 17:11 Dose: 325 mg Heparin Sodium (Porcine) (Heparin -) 5,000 unit SQ BID [facility] Last Admin: 08/19/19 21:42 Dose: 5,000 unit Hydralazine HCl (Apresoline -) 10 mg PO BID [facility] Last Admin: 08/19/19 21:45 Dose: Not Given Amino Acids (Clinimix -) 1,000 mls @ 42 mls/hr IV Q24H [facility] Last Admin: 08/19/19 23:33 Dose: 42 mls/hr Isosorbide Mononitrate (Imdur -) 30 mg PO DAILY [facility] Last Admin: 08/19/19 13:23 Dose: Not Given Latanoprost (Xalatan 0.005% Eye Drops -) 1 drop OU HS [facility] Last Admin: 08/19/19 21:42 Dose: 1 drop Memantine (Namenda -) 5 mg PO BID [facility] Last Admin: 08/19/19 21:41 Dose: 5 mg Pantoprazole Sodium (Protonix -) 40 mg PO DAILY [facility] Last Admin: 08/19/19 13:23 Dose: 40 mg Torsemide (Demadex -) 20 mg PO DAILY [facility] - Objective Vital Signs: Vital Signs Temperature 98.8 F 08/20/19 10:00 Pulse Rate 66 08/20/19 10:00 Respiratory Rate 20 08/20/19 10:00 Blood Pressure 113/58 L 08/20/19 10:00 O2 Sat by Pulse Oximetry (%) 99 08/20/19 09:00 Constitutional: Yes: No Distress, Calm, Thin Neck: Yes: Supple Cardiovascular: Yes: Regular Rate and Rhythm Respiratory: Yes: Regular, Diminished, On Nasal O2 Gastrointestinal: Yes: Soft, Hypoactive Bowel Sounds Edema: No Labs: CBC, BMP 08/18/19 05:49 08/18/19 05:49 INR, PTT INR 1.21 (0.83-1.09) H 08/02/19 21:25 - ....Imaging EKG: Report Reviewed Problem List - Problems (1) Acute on chronic combined systolic and diastolic congestive heart failure Code(s): I50.43 - ACUTE ON CHRONIC COMBINED SYSTOLIC AND DIASTOLIC HRT FAIL (2) Acute and chronic respiratory failure with hypoxia Code(s): J96.21 - ACUTE AND CHRONIC RESPIRATORY FAILURE WITH HYPOXIA (3) Acute on chronic renal failure Code(s): N17.9 - ACUTE KIDNEY FAILURE, UNSPECIFIED; N18.9 - CHRONIC KIDNEY DISEASE, UNSPECIFIED Qualifiers: Chronic kidney disease stage: stage 3 (moderate) (4) COPD (chronic obstructive pulmonary disease) Code(s): J44.9 - CHRONIC OBSTRUCTIVE PULMONARY DISEASE, UNSPECIFIED Qualifiers: (5) Cardiac pacemaker in situ Code(s): Z95.0 - PRESENCE OF CARDIAC PACEMAKER (6) ASHD (arteriosclerotic heart disease) Code(s): I25.10 - ATHSCL HEART DISEASE OF [place] CORONARY ARTERY W/O ANG PCTRS (7) Diabetes mellitus Code(s): E11.9 - TYPE 2 DIABETES MELLITUS WITHOUT COMPLICATIONS Qualifiers: Diabetes mellitus type: type 2 Diabetes mellitus mcfp insulin use: without superintendent [employer] use Diabetes mellitus complication status: with unspecified complications (8) Hyperlipidemia Code(s): E78.5 - HYPERLIPIDEMIA, UNSPECIFIED Qualifiers: Hyperlipidemia type: pure hypercholesterolemia Qualified Code(s): E78.00 - Pure hypercholesterolemia, unspecified (9) Hypertension Code(s): I10 - ESSENTIAL (PRIMARY) HYPERTENSION Qualifiers: Hypertension type: essential hypertension Qualified Code(s): I10 - Essential (primary) hypertension Assessment/Plan 10/26/14 Echo: Normal biventricular size and fxn without sig valve abnl 11/28/2016 Echo: Mod-severely decreased LV fxn with severe HK lateral and inferolateral, mold MR, TR RVSP 40-50 mmHg 11/12/2017 Echo: Mod-severely decreased LV fxn with severe HK inferior, mild TR mild effusion 06/02/2018 Echo: Mild-mod decreased LV fxn with apical dyskinesis, mild MR 07/21/2019 Echo: Mildly dilated LV with severely decreased LVEF, normal RV size and fxn, mild MR, tr TR, RV pacing 08/04/2019 Echo: Mildly dilated LV with severely decreased LVEF, normal RV size and fxn, tr TR RV pacemaker 1. Post Coag neg staph sepsis, Klebsiella PNA UTI 2. Chronic Hypoxic Respiratory Failure referable to 3. Acute on Chronic Systolic Heart Failure 4. 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 Advanced AV block post pacemaker implant interrogated 11/2016 7. HTN 8. Hypercholesterolemia 9. DHEERAJ 10. Acute on CKD back to baseline 11. Anemia of chronic disease with h/o diverticular disease 12. Dementia PLAN: 1. Resumed oral diuretics with monitor diuretic response, renal fxn and electrolytes 2. Continue Carvedilol 12.5 bid, Lipitor 20 qhs, ASA 81 qd, hydralazine 10 bid and Imdur 30 qd (BiDil) and holding losartan 100 qd pending renal fxn stabilization 3. Bronchodilators, completed abx course per C&S, wean FIO2 for saO2>90% 4. GI and DVT prophylaxis, dysphagia diet with calorie count encourage oral intake, per advanced directives, patient declines PEG insertion, EEG is normal, f/u brain MRI
--- NOTE | 2019-08-20 12:06 | PN ---
Progress Note, Physician History of Present Illness: no new issues more awake still with poor appetitie - Current Medication List Current Medications: Active Medications Acetaminophen (Tylenol Suppository -) 650 mg [place] Q6H PRN PRN Reason: FEVER Ascorbic Acid (Vitamin C -) 500 mg PO BID [facility] Last Admin: 08/19/19 21:40 Dose: 500 mg Aspirin (Asa -) 81 mg PO DAILY [facility] Last Admin: 08/19/19 13:22 Dose: 81 mg Atorvastatin Calcium (Lipitor -) 20 mg PO HS [facility] Last Admin: 08/19/19 21:41 Dose: 20 mg Carvedilol (Coreg -) 12.5 mg PO BID [facility] Last Admin: 08/19/19 21:41 Dose: 12.5 mg Ferrous Sulfate (Feosol -) 325 mg PO BIDWM [facility] Last Admin: 08/19/19 17:11 Dose: 325 mg Heparin Sodium (Porcine) (Heparin -) 5,000 unit SQ BID [facility] Last Admin: 08/19/19 21:42 Dose: 5,000 unit Hydralazine HCl (Apresoline -) 10 mg PO BID [facility] Last Admin: 08/19/19 21:45 Dose: Not Given Amino Acids (Clinimix -) 1,000 mls @ 42 mls/hr IV Q24H [facility] Last Admin: 08/19/19 23:33 Dose: 42 mls/hr Isosorbide Mononitrate (Imdur -) 30 mg PO DAILY [facility] Last Admin: 08/19/19 13:23 Dose: Not Given Latanoprost (Xalatan 0.005% Eye Drops -) 1 drop OU HS [facility] Last Admin: 08/19/19 21:42 Dose: 1 drop Memantine (Namenda -) 5 mg PO BID [facility] Last Admin: 08/19/19 21:41 Dose: 5 mg Pantoprazole Sodium (Protonix -) 40 mg PO DAILY [facility] Last Admin: 08/19/19 13:23 Dose: 40 mg Torsemide (Demadex -) 20 mg PO DAILY [facility] - Objective Vital Signs: Vital Signs Temperature 98.8 F 08/20/19 10:00 Pulse Rate 66 08/20/19 10:00 Respiratory Rate 20 08/20/19 10:00 Blood Pressure 113/58 L 08/20/19 10:00 O2 Sat by Pulse Oximetry (%) 99 08/20/19 09:00 Constitutional: Yes: No Distress, Calm Cardiovascular: Yes: S1, S2 Respiratory: Yes: Regular, CTA Bilaterally Gastrointestinal: Yes: Normal Bowel Sounds, Soft Musculoskeletal: Yes: WNL Extremities: Yes: WNL Neurological: Yes: Alert Psychiatric: Yes: Alert Labs: CBC, BMP 08/18/19 05:49 08/18/19 05:49 INR, PTT INR 1.21 (0.83-1.09) H 08/02/19 21:25 Assessment/Plan Problem List - Problems (1) Acute on chronic combined systolic and diastolic congestive heart failure Code(s): I50.43 - ACUTE ON CHRONIC COMBINED SYSTOLIC AND DIASTOLIC HRT FAIL (2) Anemia Code(s): D64.9 - ANEMIA, UNSPECIFIED Qualifiers: Anemia type: unspecified type Qualified Code(s): D64.9 - Anemia, unspecified (3) Acute and chronic respiratory failure with hypoxia Code(s): J96.21 - ACUTE AND CHRONIC RESPIRATORY FAILURE WITH HYPOXIA (4) Acute on chronic renal failure Code(s): N17.9 - ACUTE KIDNEY FAILURE, UNSPECIFIED; N18.9 - CHRONIC KIDNEY DISEASE, UNSPECIFIED Qualifiers: Chronic kidney disease stage: stage 3 (moderate) (5) CHF (congestive heart failure) Code(s): I50.9 - HEART FAILURE, UNSPECIFIED Qualifiers: Heart failure type: combined systolic and diastolic Heart failure chronicity: chronic Qualified Code(s): I50.42 - Chronic combined systolic ( congestive) and diastolic (congestive) heart failure (6) COPD (chronic obstructive pulmonary disease) Code(s): J44.9 - CHRONIC OBSTRUCTIVE PULMONARY DISEASE, UNSPECIFIED Qualifiers: (7) Pneumonia Code(s): J18.9 - PNEUMONIA, UNSPECIFIED ORGANISM plan continue current mgmt nutrition rest as per the team monitor
--- NOTE | 2019-08-20 13:30 | PN ---
Progress Note (short form) - Note Progress Note: not eating much -- just wants water Living will states that pt does not want artificial nutrition awaiting palliative care eval for further recommendation Vital Signs - 24 hr 08/19/19 08/19/19 08/19/19 13:46 18:00 21:00 Temperature 98.7 F 99.2 F Pulse Rate 78 71 Respiratory 22 H 22 H Rate Blood Pressure 104/58 L 110/57 L O2 Sat by Pulse 100 Oximetry (%) 08/19/19 08/19/19 08/20/19 21:40 22:00 06:11 Temperature 99.2 F 97.9 F Pulse Rate 75 71 Respiratory 20 20 Rate Blood Pressure 116/66 100/50 L O2 Sat by Pulse 99 Oximetry (%) 08/20/19 08/20/19 09:00 10:00 Temperature 98.8 F Pulse Rate 66 Respiratory 20 20 Rate Blood Pressure 113/58 L O2 Sat by Pulse 99 Oximetry (%) Current Medications Generic Name Dose Route Start Last Admin Trade Name Freq PRN Reason Stop Dose Admin Acetaminophen 650 mg 08/18/19 17:38 Tylenol Suppository - [place] Q6H PRN FEVER Ascorbic Acid 500 mg 08/18/19 22:00 08/19/19 21:40 Vitamin C - PO 500 mg BID [facility] Administration Aspirin 81 mg 08/19/19 10:00 08/19/19 13:22 Asa - PO 81 mg DAILY [facility] Administration Atorvastatin Calcium 20 mg 08/18/19 22:00 08/19/19 21:41 Lipitor - PO 20 mg HS [facility] Administration Carvedilol 12.5 mg 08/18/19 22:00 08/19/19 21:41 Coreg - PO 12.5 mg BID [facility] Administration Ferrous Sulfate 325 mg 08/19/19 08:00 08/19/19 17:11 Feosol - PO 325 mg BIDWM [facility] Administration Heparin Sodium (Porcine) 5,000 unit 08/18/19 22:00 08/19/19 21:42 Heparin - SQ 5,000 unit BID [facility] Administration Hydralazine HCl 10 mg 08/18/19 22:00 08/19/19 21:45 Apresoline - PO Not Given BID [facility] Amino Acids 1,000 mls @ 42 mls/hr 08/18/19 18:45 08/19/19 23:33 Clinimix - IV 42 mls/hr Q24H [facility] Administration Isosorbide Mononitrate 30 mg 08/19/19 10:00 08/19/19 13:23 Imdur - PO Not Given DAILY [facility] Latanoprost 1 drop 08/18/19 22:00 08/19/19 21:42 Xalatan 0.005% Eye Drops - OU 1 drop HS [facility] Administration Memantine 5 mg 08/18/19 22:00 08/19/19 21:41 Namenda - PO 5 mg BID [facility] Administration Pantoprazole Sodium 40 mg 08/19/19 10:00 08/19/19 13:23 Protonix - PO 40 mg DAILY [facility] Administration Torsemide 20 mg 08/20/19 10:00 Demadex - PO DAILY [facility] S1 S2 RRR Lungs decreased breath sounds Abd- soft, obese, NT No edema PLAN Iv antibiotics dc on iv clinimix monitor renal function --stable Neurology eval noted - on aricept -->advance dementia spoke with GI as per pt living will-- states he does not want artificial nutrition or lifesupport palliative care eval encourage PO calorie count noted-- poor po intake on clinimix Problem List - Problems (1) Acute on chronic combined systolic and diastolic congestive heart failure Code(s): I50.43 - ACUTE ON CHRONIC COMBINED SYSTOLIC AND DIASTOLIC HRT FAIL (2) Anemia Code(s): D64.9 - ANEMIA, UNSPECIFIED Qualifiers: Anemia type: unspecified type Qualified Code(s): D64.9 - Anemia, unspecified (3) Acute and chronic respiratory failure with hypoxia Code(s): J96.21 - ACUTE AND CHRONIC RESPIRATORY FAILURE WITH HYPOXIA (4) Acute on chronic renal failure Code(s): N17.9 - ACUTE KIDNEY FAILURE, UNSPECIFIED; N18.9 - CHRONIC KIDNEY DISEASE, UNSPECIFIED Qualifiers: Chronic kidney disease stage: stage 3 (moderate) (5) CHF (congestive heart failure) Code(s): I50.9 - HEART FAILURE, UNSPECIFIED Qualifiers: Heart failure type: combined systolic and diastolic Heart failure chronicity: chronic Qualified Code(s): I50.42 - Chronic combined systolic ( congestive) and diastolic (congestive) heart failure (6) COPD (chronic obstructive pulmonary disease) Code(s): J44.9 - CHRONIC OBSTRUCTIVE PULMONARY DISEASE, UNSPECIFIED Qualifiers: (7) Pneumonia Code(s): J18.9 - PNEUMONIA, UNSPECIFIED ORGANISM (8) Malnutrition Code(s): E46 - UNSPECIFIED PROTEIN-CALORIE MALNUTRITION (9) Functional quadriplegia Code(s): R53.2 - FUNCTIONAL QUADRIPLEGIA
[2019-08-20] MEDS: hydrALAZINE HCL 10 MG TABLET PO SCH ×2 (14:03→22:36)
[2019-08-20] MEDS: ASPIRIN 81 MG CHEWABLE TABLETS PO SCH (14:03)
[2019-08-20] MEDS: CARVEDILOL 12.5 MG TABLET (FP) PO SCH ×2 (14:03→22:35)
[2019-08-20] MEDS: FERROUS SO4 325 MG TABLET (FP) PO SCH ×2 (14:03→17:02)
[2019-08-20] MEDS: MEMANTINE HCL 5 MG TABLET (UD) PO SCH ×2 (14:04→22:36)
[2019-08-20] MEDS: PANTOPRAZOLE 40 MG TABLET (FP) PO SCH (14:04)
[2019-08-20] MEDS: ISOSORBIDE MONONITRATE 30 MG TAB.SR.24H (FP) PO SCH (14:04)
[2019-08-20] MEDS: ASCORBIC ACID 500 MG TABLET (FP) PO SCH ×2 (14:05→22:36)
[2019-08-20] MEDS: MIRTAZAPINE 15 MG TABLET (FP) PO SCH (22:35)
[2019-08-20] MEDS: ATORVASTATIN CA 20 MG TABLET (FP) PO SCH (22:36)
[2019-08-21] MEDS: AMINO ACIDS 4.25%/D5W 1,000 ML IV SCH ×2 (06:43→21:08)
[2019-08-21 07:31] LABS: BLOOD UREA NITROGEN 48.8 mg/dL (7-18); CALCIUM 8.2 mg/dL (8.5-10.1); CREATININE 3.3 mg/dL (0.55-1.3); POTASSIUM 3.9 mmol/L (3.5-5.1)
--- NOTE | 2019-08-21 09:10 | PN ---
Progress Note (short form) - Note Progress Note: not eating much -- just wants water poor po intake calorie count noted Living will states that pt does not want artificial nutrition awaiting palliative care eval for further recommendation Vital Signs - 24 hr 08/20/19 08/20/19 08/20/19 10:00 15:28 21:00 Temperature 98.8 F 98.7 F Pulse Rate 66 77 Respiratory 20 20 Rate Blood Pressure 113/58 L 99/47 L O2 Sat by Pulse 96 Oximetry (%) 08/20/19 08/21/19 22:00 06:00 Temperature 98.5 F Pulse Rate 80 79 Respiratory 20 20 Rate Blood Pressure 124/70 104/51 L O2 Sat by Pulse Oximetry (%) Current Medications Generic Name Dose Route Start Last Admin Trade Name Freq PRN Reason Stop Dose Admin Acetaminophen 650 mg 08/18/19 17:38 Tylenol Suppository - [place] Q6H PRN FEVER Ascorbic Acid 500 mg 08/18/19 22:00 08/20/19 22:36 Vitamin C - PO 500 mg BID [facility] Administration Aspirin 81 mg 08/19/19 10:00 08/20/19 14:03 Asa - PO Not Given DAILY [facility] Atorvastatin Calcium 20 mg 08/18/19 22:00 08/20/19 22:36 Lipitor - PO 20 mg HS [facility] Administration Carvedilol 12.5 mg 08/18/19 22:00 08/20/19 22:35 Coreg - PO 12.5 mg BID [facility] Administration Ferrous Sulfate 325 mg 08/19/19 08:00 08/20/19 17:02 Feosol - PO 325 mg BIDWM [facility] Administration Heparin Sodium (Porcine) 5,000 unit 08/18/19 22:00 08/20/19 22:36 Heparin - SQ 5,000 unit BID [facility] Administration Hydralazine HCl 10 mg 08/18/19 22:00 08/20/19 22:36 Apresoline - PO 10 mg BID [facility] Administration Amino Acids 1,000 mls @ 42 mls/hr 08/18/19 18:45 08/21/19 06:43 Clinimix - IV 42 mls/hr Q24H [facility] Administration Isosorbide Mononitrate 30 mg 08/19/19 10:00 08/20/19 14:04 Imdur - PO 30 mg DAILY [facility] Administration Latanoprost 1 drop 08/18/19 22:00 08/21/19 00:00 Xalatan 0.005% Eye Drops - OU 1 drop HS [facility] Administration Memantine 5 mg 08/18/19 22:00 08/20/19 22:36 Namenda - PO 5 mg BID [facility] Administration Mirtazapine 7.5 mg 08/20/19 22:00 08/20/19 22:35 Remeron - PO 7.5 mg HS [facility] Administration Pantoprazole Sodium 40 mg 08/19/19 10:00 08/20/19 14:04 Protonix - PO Not Given DAILY [facility] Torsemide 20 mg 08/20/19 10:00 08/20/19 14:03 Demadex - PO 20 mg DAILY [facility] Administration Laboratory Results - last 24 hr 08/21/19 05:30 Sodium 136 Potassium 3.9 Chloride 106 Carbon Dioxide 22 Anion Gap 9 BUN 48.8 H Creatinine 3.3 H Est GFR (CKD-EPI)AfAm 18.70 Est GFR (CKD-EPI)NonAf 16.13 Random Glucose 95 Calcium 8.2 L Intake & Output 08/18/19 08/19/19 08/20/19 08/21/19 23:59 23:59 23:59 23:59 Intake Total 840 1164 624 Output Total 1 Balance 839 1164 624 Weight 152 lb 151 lb 3.2 oz S1 S2 RRR Lungs decreased breath sounds Abd- soft, obese, NT No edema PLAN Iv antibiotics dc on iv clinimix monitor renal function --worse today due to poor po intake Neurology eval noted - on aricept -->advance dementia spoke with GI as per pt living will-- states he does not want artificial nutrition or lifesupport palliative care eval encourage PO calorie count noted-- poor po intake on clinimix Problem List - Problems (1) Acute on chronic combined systolic and diastolic congestive heart failure Code(s): I50.43 - ACUTE ON CHRONIC COMBINED SYSTOLIC AND DIASTOLIC HRT FAIL (2) Anemia Code(s): D64.9 - ANEMIA, UNSPECIFIED Qualifiers: Anemia type: unspecified type Qualified Code(s): D64.9 - Anemia, unspecified (3) Acute and chronic respiratory failure with hypoxia Code(s): J96.21 - ACUTE AND CHRONIC RESPIRATORY FAILURE WITH HYPOXIA (4) Acute on chronic renal failure Code(s): N17.9 - ACUTE KIDNEY FAILURE, UNSPECIFIED; N18.9 - CHRONIC KIDNEY DISEASE, UNSPECIFIED Qualifiers: Chronic kidney disease stage: stage 3 (moderate) (5) CHF (congestive heart failure) Code(s): I50.9 - HEART FAILURE, UNSPECIFIED Qualifiers: Heart failure type: combined systolic and diastolic Heart failure chronicity: chronic Qualified Code(s): I50.42 - Chronic combined systolic ( congestive) and diastolic (congestive) heart failure (6) COPD (chronic obstructive pulmonary disease) Code(s): J44.9 - CHRONIC OBSTRUCTIVE PULMONARY DISEASE, UNSPECIFIED Qualifiers: (7) Pneumonia Code(s): J18.9 - PNEUMONIA, UNSPECIFIED ORGANISM (8) Malnutrition Code(s): E46 - UNSPECIFIED PROTEIN-CALORIE MALNUTRITION (9) Functional quadriplegia Code(s): R53.2 - FUNCTIONAL QUADRIPLEGIA
--- NOTE | 2019-08-21 11:14 | PN ---
Progress Note (short form) - Note Progress Note: Renal follow up for LAURA/CKD coverage for Dr. Mahmood Seen and examined at the bedside sleeping no distress refusing meds and not eating as per nurse Vital Signs Temperature 98.5 F 08/20/19 22:00 Pulse Rate 79 08/21/19 06:00 Respiratory Rate 20 08/21/19 06:00 Blood Pressure 104/51 L 08/21/19 06:00 O2 Sat by Pulse Oximetry (%) 96 08/20/19 21:00 Intake & Output 08/18/19 08/19/19 08/20/19 08/21/19 23:59 23:59 23:59 23:59 Intake Total 840 1164 624 Output Total 1 Balance 839 1164 624 Weight 68.946 kg 68.583 kg NAD RRR Dec BS no LE edema CBC, BMP 08/18/19 05:49 08/21/19 05:30 Current Medications Acetaminophen (Tylenol Suppository -) 650 mg [place] Q6H PRN PRN Reason: FEVER Ascorbic Acid (Vitamin C -) 500 mg PO BID [facility] Last Admin: 08/20/19 22:36 Dose: 500 mg Aspirin (Asa -) 81 mg PO DAILY [facility] Last Admin: 08/20/19 14:03 Dose: Not Given Atorvastatin Calcium (Lipitor -) 20 mg PO HS [facility] Last Admin: 08/20/19 22:36 Dose: 20 mg Carvedilol (Coreg -) 12.5 mg PO BID [facility] Last Admin: 08/20/19 22:35 Dose: 12.5 mg Ferrous Sulfate (Feosol -) 325 mg PO BIDWM [facility] Last Admin: 08/20/19 17:02 Dose: 325 mg Heparin Sodium (Porcine) (Heparin -) 5,000 unit SQ BID [facility] Last Admin: 08/20/19 22:36 Dose: 5,000 unit Hydralazine HCl (Apresoline -) 10 mg PO BID [facility] Last Admin: 08/20/19 22:36 Dose: 10 mg Amino Acids (Clinimix -) 1,000 mls @ 42 mls/hr IV Q24H [facility] Last Admin: 08/21/19 06:43 Dose: 42 mls/hr Isosorbide Mononitrate (Imdur -) 30 mg PO DAILY [facility] Last Admin: 08/20/19 14:04 Dose: 30 mg Latanoprost (Xalatan 0.005% Eye Drops -) 1 drop OU HS [facility] Last Admin: 08/21/19 00:00 Dose: 1 drop Memantine (Namenda -) 5 mg PO BID [facility] Last Admin: 08/20/19 22:36 Dose: 5 mg Mirtazapine (Remeron -) 7.5 mg PO HS [facility] Last Admin: 08/20/19 22:35 Dose: 7.5 mg Pantoprazole Sodium (Protonix -) 40 mg PO DAILY [facility] Last Admin: 08/20/19 14:04 Dose: Not Given Torsemide (Demadex -) 20 mg PO DAILY [facility] Last Admin: 08/20/19 14:03 Dose: 20 mg Impression 1. LAURA 2. lethargy 3. recent pna and sepsis 4. ckd 5. copd 6. dm 7. hx htn 8. dementia Plan Holding Torsemide given rise in Cr and poor oral solute intake monitor renal function and volume status Elijah Malik DO
[2019-08-21] MEDS: FERROUS SO4 325 MG TABLET (FP) PO SCH ×2 (11:40→17:17)
[2019-08-21] MEDS: hydrALAZINE HCL 10 MG TABLET PO SCH ×2 (11:41→21:07)
[2019-08-21] MEDS: HEPARIN NA (PORCINE) 5,000 UNITS/ML 1ML VIAL SQ SCH ×2 (11:41→21:06)
[2019-08-21] MEDS: ASPIRIN 81 MG CHEWABLE TABLETS PO SCH (11:41)
[2019-08-21] MEDS: MEMANTINE HCL 5 MG TABLET (UD) PO SCH ×2 (11:41→21:07)
[2019-08-21] MEDS: PANTOPRAZOLE 40 MG TABLET (FP) PO SCH (11:41)
[2019-08-21] MEDS: ISOSORBIDE MONONITRATE 30 MG TAB.SR.24H (FP) PO SCH (11:41)
[2019-08-21] MEDS: CARVEDILOL 12.5 MG TABLET (FP) PO SCH ×2 (11:41→21:06)
[2019-08-21] MEDS: ASCORBIC ACID 500 MG TABLET (FP) PO SCH ×2 (11:42→21:07)
--- NOTE | 2019-08-21 11:53 | PN ---
Progress Note, Physician History of Present Illness: patient not eating refusing alot of things - Current Medication List Current Medications: Active Medications Acetaminophen (Tylenol Suppository -) 650 mg [place] Q6H PRN PRN Reason: FEVER Ascorbic Acid (Vitamin C -) 500 mg PO BID [facility] Last Admin: 08/21/19 11:42 Dose: Not Given Aspirin (Asa -) 81 mg PO DAILY [facility] Last Admin: 08/21/19 11:41 Dose: Not Given Atorvastatin Calcium (Lipitor -) 20 mg PO HS [facility] Last Admin: 08/20/19 22:36 Dose: 20 mg Carvedilol (Coreg -) 12.5 mg PO BID [facility] Last Admin: 08/21/19 11:41 Dose: Not Given Ferrous Sulfate (Feosol -) 325 mg PO BIDWM [facility] Last Admin: 08/21/19 11:40 Dose: Not Given Heparin Sodium (Porcine) (Heparin -) 5,000 unit SQ BID [facility] Last Admin: 08/21/19 11:41 Dose: 5,000 unit Hydralazine HCl (Apresoline -) 10 mg PO BID [facility] Last Admin: 08/21/19 11:41 Dose: Not Given Amino Acids (Clinimix -) 1,000 mls @ 42 mls/hr IV Q24H [facility] Last Admin: 08/21/19 06:43 Dose: 42 mls/hr Isosorbide Mononitrate (Imdur -) 30 mg PO DAILY [facility] Last Admin: 08/21/19 11:41 Dose: Not Given Latanoprost (Xalatan 0.005% Eye Drops -) 1 drop OU HS [facility] Last Admin: 08/21/19 00:00 Dose: 1 drop Memantine (Namenda -) 5 mg PO BID [facility] Last Admin: 08/21/19 11:41 Dose: Not Given Mirtazapine (Remeron -) 7.5 mg PO HS [facility] Last Admin: 08/20/19 22:35 Dose: 7.5 mg Pantoprazole Sodium (Protonix -) 40 mg PO DAILY [facility] Last Admin: 08/21/19 11:41 Dose: Not Given Torsemide (Demadex -) 20 mg PO DAILY [facility] Last Admin: 08/20/19 14:03 Dose: 20 mg - Objective Vital Signs: Vital Signs Temperature 99.6 F 08/21/19 10:00 Pulse Rate 72 08/21/19 10:00 Respiratory Rate 20 08/21/19 10:00 Blood Pressure 106/60 08/21/19 10:00 O2 Sat by Pulse Oximetry (%) 96 08/20/19 21:00 Constitutional: Yes: No Distress, Calm Cardiovascular: Yes: S1, S2 Respiratory: Yes: Regular, CTA Bilaterally Gastrointestinal: Yes: Normal Bowel Sounds, Soft Musculoskeletal: Yes: WNL Extremities: Yes: WNL Labs: CBC, BMP 08/18/19 05:49 08/21/19 05:30 INR, PTT INR 1.21 (0.83-1.09) H 08/02/19 21:25 Assessment/Plan Problem List - Problems (1) Acute on chronic combined systolic and diastolic congestive heart failure Code(s): I50.43 - ACUTE ON CHRONIC COMBINED SYSTOLIC AND DIASTOLIC HRT FAIL (2) Anemia Code(s): D64.9 - ANEMIA, UNSPECIFIED Qualifiers: Anemia type: unspecified type Qualified Code(s): D64.9 - Anemia, unspecified (3) Acute and chronic respiratory failure with hypoxia Code(s): J96.21 - ACUTE AND CHRONIC RESPIRATORY FAILURE WITH HYPOXIA (4) Acute on chronic renal failure Code(s): N17.9 - ACUTE KIDNEY FAILURE, UNSPECIFIED; N18.9 - CHRONIC KIDNEY DISEASE, UNSPECIFIED Qualifiers: Chronic kidney disease stage: stage 3 (moderate) (5) CHF (congestive heart failure) Code(s): I50.9 - HEART FAILURE, UNSPECIFIED Qualifiers: Heart failure type: combined systolic and diastolic Heart failure chronicity: chronic Qualified Code(s): I50.42 - Chronic combined systolic ( congestive) and diastolic (congestive) heart failure (6) COPD (chronic obstructive pulmonary disease) Code(s): J44.9 - CHRONIC OBSTRUCTIVE PULMONARY DISEASE, UNSPECIFIED Qualifiers: (7) Pneumonia Code(s): J18.9 - PNEUMONIA, UNSPECIFIED ORGANISM plan continue current mgmt nutrition rest as per the team monitor
[2019-08-21] MEDS: LATANOPROST 0.005% OPHTH SOLN 2.5ML BOTTLE OU SCH ×2 (21:05)
[2019-08-21] MEDS: MIRTAZAPINE 15 MG TABLET (FP) PO SCH (21:07)
[2019-08-21] MEDS: ATORVASTATIN CA 20 MG TABLET (FP) PO SCH (21:07)
[2019-08-22 07:23] LABS: CALCIUM 8.2 mg/dL (8.5-10.1); CREATININE 3.3 mg/dL (0.55-1.3); MAGNESIUM 1.7 mg/dL (1.8-2.4); PHOSPHOROUS 3.3 mg/dL (2.5-4.9); POTASSIUM 3.8 mmol/L (3.5-5.1)
[2019-08-22] MEDS: FERROUS SO4 325 MG TABLET (FP) PO SCH ×2 (08:16→17:02)
[2019-08-22] MEDS: ASPIRIN 81 MG CHEWABLE TABLETS PO SCH (09:34)
[2019-08-22] MEDS: hydrALAZINE HCL 10 MG TABLET PO SCH ×2 (09:34→22:08)
[2019-08-22] MEDS: ISOSORBIDE MONONITRATE 30 MG TAB.SR.24H (FP) PO SCH (09:35)
[2019-08-22] MEDS: HEPARIN NA (PORCINE) 5,000 UNITS/ML 1ML VIAL SQ SCH ×2 (09:35→22:08)
[2019-08-22] MEDS: CARVEDILOL 12.5 MG TABLET (FP) PO SCH ×2 (09:35→22:08)
[2019-08-22] MEDS: ASCORBIC ACID 500 MG TABLET (FP) PO SCH ×2 (09:35→22:09)
[2019-08-22] MEDS: MEMANTINE HCL 5 MG TABLET (UD) PO SCH ×2 (09:35→22:09)
[2019-08-22] MEDS: PANTOPRAZOLE 40 MG TABLET (FP) PO SCH (09:35)
--- NOTE | 2019-08-22 10:23 | PN ---
Progress Note, Physician Chief Complaint: Events noted Lethargic, but arousable History of Present Illness: Patient was seen and examined. Chart was reviewed - Current Medication List Current Medications: Active Medications Acetaminophen (Tylenol Suppository -) 650 mg [place] Q6H PRN PRN Reason: FEVER Ascorbic Acid (Vitamin C -) 500 mg PO BID [facility] Last Admin: 08/22/19 09:35 Dose: Not Given Aspirin (Asa -) 81 mg PO DAILY [facility] Last Admin: 08/22/19 09:34 Dose: Not Given Atorvastatin Calcium (Lipitor -) 20 mg PO HS [facility] Last Admin: 08/21/19 21:07 Dose: Not Given Carvedilol (Coreg -) 12.5 mg PO BID [facility] Last Admin: 08/22/19 09:35 Dose: Not Given Ferrous Sulfate (Feosol -) 325 mg PO BIDWM [facility] Last Admin: 08/22/19 08:16 Dose: Not Given Heparin Sodium (Porcine) (Heparin -) 5,000 unit SQ BID [facility] Last Admin: 08/22/19 09:35 Dose: 5,000 unit Hydralazine HCl (Apresoline -) 10 mg PO BID [facility] Last Admin: 08/22/19 09:34 Dose: Not Given Amino Acids (Clinimix -) 1,000 mls @ 42 mls/hr IV Q24H [facility] Last Admin: 08/21/19 21:08 Dose: 42 mls/hr Isosorbide Mononitrate (Imdur -) 30 mg PO DAILY [facility] Last Admin: 08/22/19 09:35 Dose: Not Given Latanoprost (Xalatan 0.005% Eye Drops -) 1 drop OU HS [facility] Last Admin: 08/21/19 21:05 Dose: 1 drop Memantine (Namenda -) 5 mg PO BID [facility] Last Admin: 08/22/19 09:35 Dose: Not Given Mirtazapine (Remeron -) 7.5 mg PO HS [facility] Last Admin: 08/21/19 21:07 Dose: Not Given Pantoprazole Sodium (Protonix -) 40 mg PO DAILY [facility] Last Admin: 08/22/19 09:35 Dose: Not Given Torsemide (Demadex -) 20 mg PO DAILY [facility] Last Admin: 08/20/19 14:03 Dose: 20 mg - Objective Vital Signs: Vital Signs Temperature 98.8 F 08/22/19 08:56 Pulse Rate 74 08/22/19 08:56 Respiratory Rate 20 08/22/19 08:59 Blood Pressure 107/51 L 08/22/19 08:56 O2 Sat by Pulse Oximetry (%) 100 08/22/19 08:59 Neck: Yes: Supple Cardiovascular: Yes: Regular Rate and Rhythm, S1, S2 Respiratory: Yes: Diminished Gastrointestinal: Yes: Normal Bowel Sounds, Soft. No: Tenderness Edema: No Labs: 08/22/19 06:35 Problem List - Problems (1) Acute on chronic combined systolic and diastolic congestive heart failure Code(s): I50.43 - ACUTE ON CHRONIC COMBINED SYSTOLIC AND DIASTOLIC HRT FAIL (2) Anemia Code(s): D64.9 - ANEMIA, UNSPECIFIED Qualifiers: Anemia type: unspecified type Qualified Code(s): D64.9 - Anemia, unspecified (3) CKD (chronic kidney disease) Code(s): N18.9 - CHRONIC KIDNEY DISEASE, UNSPECIFIED Qualifiers: Chronic kidney disease stage: unspecified stage Qualified Code(s): N18.9 - Chronic kidney disease, unspecified (4) Dementia Code(s): F03.90 - UNSPECIFIED DEMENTIA WITHOUT BEHAVIORAL DISTURBANCE (5) Sepsis Code(s): A41.9 - SEPSIS, UNSPECIFIED ORGANISM (6) UTI (urinary tract infection) Code(s): N39.0 - URINARY TRACT INFECTION, SITE NOT SPECIFIED Qualifiers: Urinary tract infection type: site unspecified Hematuria presence: without hematuria Qualified Code(s): N39.0 - Urinary tract infection, site not specified (7) Acute and chronic respiratory failure Code(s): J96.20 - ACUTE AND CHR RESP FAILURE, UNSP W HYPOXIA OR HYPERCAPNIA Qualifiers: Respiratory failure complication: hypoxia Qualified Code(s): J96.21 - Acute and chronic respiratory failure with hypoxia (8) Acute and chronic respiratory failure with hypoxia Code(s): J96.21 - ACUTE AND CHRONIC RESPIRATORY FAILURE WITH HYPOXIA (9) Acute on chronic renal failure Code(s): N17.9 - ACUTE KIDNEY FAILURE, UNSPECIFIED; N18.9 - CHRONIC KIDNEY DISEASE, UNSPECIFIED Qualifiers: Chronic kidney disease stage: stage 3 (moderate) (10) COPD (chronic obstructive pulmonary disease) Code(s): J44.9 - CHRONIC OBSTRUCTIVE PULMONARY DISEASE, UNSPECIFIED Qualifiers: (11) Cardiac pacemaker in situ Code(s): Z95.0 - PRESENCE OF CARDIAC PACEMAKER (12) Diastolic dysfunction without heart failure Code(s): I51.9 - HEART DISEASE, UNSPECIFIED (13) Generalized weakness Code(s): R53.1 - WEAKNESS (14) High-grade atrioventricular block Code(s): I44.39 - OTHER ATRIOVENTRICULAR BLOCK (15) ASHD (arteriosclerotic heart disease) Code(s): I25.10 - ATHSCL HEART DISEASE OF [place] CORONARY ARTERY W/O ANG PCTRS (16) Diabetes mellitus Code(s): E11.9 - TYPE 2 DIABETES MELLITUS WITHOUT COMPLICATIONS Qualifiers: Diabetes mellitus type: type 2 Diabetes mellitus termination clerk insulin use: without termination clerk use Diabetes mellitus complication status: with unspecified complications (17) Hyperlipidemia Code(s): E78.5 - HYPERLIPIDEMIA, UNSPECIFIED Qualifiers: Hyperlipidemia type: pure hypercholesterolemia Qualified Code(s): E78.00 - Pure hypercholesterolemia, unspecified (18) Hypertension Code(s): I10 - ESSENTIAL (PRIMARY) HYPERTENSION Qualifiers: Hypertension type: essential hypertension Qualified Code(s): I10 - Essential (primary) hypertension Assessment/Plan 1. Post Coag negative staph sepsis and Klebsiella PNA + UTI 2. Chronic Hypoxic Respiratory Failure 3. Acute on Chronic Systolic Heart Failure 4. 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 Advanced AV block post pacemaker implant 7. HTN 8. Hypercholesterolemia 9. DHEERAJ 10. Acute on CKD 11. Anemia of chronic disease with h/o diverticular disease 12. Dementia PLAN: 1. Oral diuretics with monitoring renal function and electrolytes 2. Continue Carvedilol 12.5 mg BID, Lipitor 20 mg QHS, ASA 81 mg QD, Hydralazine 10 mg BID and Imdur 30 mg QD. Losartan held pending renal function stabilization 3. Bronchodilators 4. GI and DVT prophylaxis. Declined PEG Weston Tillman MD
--- NOTE | 2019-08-22 10:50 | PN ---
Progress Note, [employer] - Note Progress Note: Selected Entries 08/16/19 08/16/19 08/17/19 12:08 12:24 10:58 Breakfast 0 0 Lunch 0 Temperature 08/17/19 08/19/19 08/19/19 14:01 02:00 06:00 Breakfast Lunch 25% Temperature 97.5 F L 99.0 F 08/19/19 08/19/19 10:00 10:46 Breakfast 25% Lunch Temperature 98.9 F Laboratory Tests 08/16/19 08/18/19 06:10 05:49 WBC 5.8 7.1 Selected Entries 08/22/19 08:56 Skin Risk Level Very High Risk Supper 0 Temperature 98.8 F On puree/nectar. Living will. Full code.Pending Palliative care consult,. Refusing meds and all Po.
--- NOTE | 2019-08-22 12:10 | PN ---
Progress Note, Physician History of Present Illness: poor appetit not eating much - Current Medication List Current Medications: Active Medications Acetaminophen (Tylenol Suppository -) 650 mg [place] Q6H PRN PRN Reason: FEVER Ascorbic Acid (Vitamin C -) 500 mg PO BID [facility] Last Admin: 08/22/19 09:35 Dose: Not Given Aspirin (Asa -) 81 mg PO DAILY [facility] Last Admin: 08/22/19 09:34 Dose: Not Given Atorvastatin Calcium (Lipitor -) 20 mg PO HS [facility] Last Admin: 08/21/19 21:07 Dose: Not Given Carvedilol (Coreg -) 12.5 mg PO BID [facility] Last Admin: 08/22/19 09:35 Dose: Not Given Ferrous Sulfate (Feosol -) 325 mg PO BIDWM [facility] Last Admin: 08/22/19 08:16 Dose: Not Given Heparin Sodium (Porcine) (Heparin -) 5,000 unit SQ BID [facility] Last Admin: 08/22/19 09:35 Dose: 5,000 unit Hydralazine HCl (Apresoline -) 10 mg PO BID [facility] Last Admin: 08/22/19 09:34 Dose: Not Given Amino Acids (Clinimix -) 1,000 mls @ 42 mls/hr IV Q24H [facility] Last Admin: 08/21/19 21:08 Dose: 42 mls/hr Isosorbide Mononitrate (Imdur -) 30 mg PO DAILY [facility] Last Admin: 08/22/19 09:35 Dose: Not Given Latanoprost (Xalatan 0.005% Eye Drops -) 1 drop OU HS [facility] Last Admin: 08/21/19 21:05 Dose: 1 drop Memantine (Namenda -) 5 mg PO BID [facility] Last Admin: 08/22/19 09:35 Dose: Not Given Mirtazapine (Remeron -) 7.5 mg PO HS [facility] Last Admin: 08/21/19 21:07 Dose: Not Given Pantoprazole Sodium (Protonix -) 40 mg PO DAILY [facility] Last Admin: 08/22/19 09:35 Dose: Not Given Torsemide (Demadex -) 20 mg PO DAILY [facility] Last Admin: 08/20/19 14:03 Dose: 20 mg - Objective Vital Signs: Vital Signs Temperature 98.8 F 08/22/19 08:56 Pulse Rate 74 08/22/19 08:56 Respiratory Rate 20 08/22/19 08:59 Blood Pressure 107/51 L 08/22/19 08:56 O2 Sat by Pulse Oximetry (%) 100 08/22/19 08:59 Constitutional: Yes: No Distress, Calm Cardiovascular: Yes: S1, S2 Respiratory: Yes: Regular, CTA Bilaterally Gastrointestinal: Yes: Normal Bowel Sounds, Soft Musculoskeletal: Yes: WNL Extremities: Yes: WNL Neurological: Yes: Alert, Other Psychiatric: Yes: Other Labs: CBC, BMP 08/18/19 05:49 08/22/19 06:35 INR, PTT INR 1.21 (0.83-1.09) H 08/02/19 21:25 Assessment/Plan Problem List - Problems (1) Acute on chronic combined systolic and diastolic congestive heart failure Code(s): I50.43 - ACUTE ON CHRONIC COMBINED SYSTOLIC AND DIASTOLIC HRT FAIL (2) Anemia Code(s): D64.9 - ANEMIA, UNSPECIFIED Qualifiers: Anemia type: unspecified type Qualified Code(s): D64.9 - Anemia, unspecified (3) Acute and chronic respiratory failure with hypoxia Code(s): J96.21 - ACUTE AND CHRONIC RESPIRATORY FAILURE WITH HYPOXIA (4) Acute on chronic renal failure Code(s): N17.9 - ACUTE KIDNEY FAILURE, UNSPECIFIED; N18.9 - CHRONIC KIDNEY DISEASE, UNSPECIFIED Qualifiers: Chronic kidney disease stage: stage 3 (moderate) (5) CHF (congestive heart failure) Code(s): I50.9 - HEART FAILURE, UNSPECIFIED Qualifiers: Heart failure type: combined systolic and diastolic Heart failure chronicity: chronic Qualified Code(s): I50.42 - Chronic combined systolic ( congestive) and diastolic (congestive) heart failure (6) COPD (chronic obstructive pulmonary disease) Code(s): J44.9 - CHRONIC OBSTRUCTIVE PULMONARY DISEASE, UNSPECIFIED Qualifiers: (7) Pneumonia Code(s): J18.9 - PNEUMONIA, UNSPECIFIED ORGANISM plan continue current mgmt nutrition rest as per the team monitor
--- NOTE | 2019-08-22 12:28 | PN ---
Progress Note (short form) - Note Progress Note: Pt seen/ examined chart reviewed awake/comfortable. Not eating Vital Signs Temp 98.8 F 08/22/19 08:56 Pulse 74 08/22/19 08:56 Resp 20 08/22/19 08:59 BP 107/51 L 08/22/19 08:56 Pulse Ox 100 08/22/19 08:59 Intake & Output 08/21/19 08/22/19 08/22/19 23:59 11:59 23:59 Intake Total 336 604 Balance 336 604 Weight 152 lb 6.4 oz Intake: IV 336 504 clinimix 336 504 Oral 0 100 Other: Voiding Method Incontinent Diaper # Unmeasured Voids Void 1 2 Bowel Movement No Weight Measurement Method Patient Lift Scale Active Medications Acetaminophen (Tylenol Suppository -) 650 mg [place] Q6H PRN PRN Reason: FEVER Ascorbic Acid (Vitamin C -) 500 mg PO BID [facility] Last Admin: 08/22/19 09:35 Dose: Not Given Aspirin (Asa -) 81 mg PO DAILY [facility] Last Admin: 08/22/19 09:34 Dose: Not Given Atorvastatin Calcium (Lipitor -) 20 mg PO HS [facility] Last Admin: 08/21/19 21:07 Dose: Not Given Carvedilol (Coreg -) 12.5 mg PO BID [facility] Last Admin: 08/22/19 09:35 Dose: Not Given Ferrous Sulfate (Feosol -) 325 mg PO BIDWM [facility] Last Admin: 08/22/19 08:16 Dose: Not Given Heparin Sodium (Porcine) (Heparin -) 5,000 unit SQ BID [facility] Last Admin: 08/22/19 09:35 Dose: 5,000 unit Hydralazine HCl (Apresoline -) 10 mg PO BID [facility] Last Admin: 08/22/19 09:34 Dose: Not Given Amino Acids (Clinimix -) 1,000 mls @ 42 mls/hr IV Q24H [facility] Last Admin: 08/21/19 21:08 Dose: 42 mls/hr Isosorbide Mononitrate (Imdur -) 30 mg PO DAILY [facility] Last Admin: 08/22/19 09:35 Dose: Not Given Latanoprost (Xalatan 0.005% Eye Drops -) 1 drop OU HS [facility] Last Admin: 08/21/19 21:05 Dose: 1 drop Memantine (Namenda -) 5 mg PO BID [facility] Last Admin: 08/22/19 09:35 Dose: Not Given Mirtazapine (Remeron -) 7.5 mg PO HS [facility] Last Admin: 08/21/19 21:07 Dose: Not Given Pantoprazole Sodium (Protonix -) 40 mg PO DAILY [facility] Last Admin: 08/22/19 09:35 Dose: Not Given Torsemide (Demadex -) 20 mg PO DAILY [facility] Last Admin: 08/20/19 14:03 Dose: 20 mg CBC, BMP 08/18/19 05:49 08/22/19 06:35 Physical Exam. S1 S2 RRR Lungs decreased breath sounds Abd- soft, obese, NT No edema. Awake PLAN Iv antibiotics --dc on iv clinimix monitor renal function --worse due to poor po intake Neurology eval noted - on aricept -->advance dementia spoke with GI as per pt living will-- states he does not want artificial nutrition or lifesupport -- palliative care eval Pending encourage PO on clinimix will follow Problem List - Problems (1) Acute on chronic combined systolic and diastolic congestive heart failure Code(s): I50.43 - ACUTE ON CHRONIC COMBINED SYSTOLIC AND DIASTOLIC HRT FAIL (2) CKD (chronic kidney disease) Code(s): N18.9 - CHRONIC KIDNEY DISEASE, UNSPECIFIED Qualifiers: Chronic kidney disease stage: unspecified stage Qualified Code(s): N18.9 - Chronic kidney disease, unspecified (3) Dementia Code(s): F03.90 - UNSPECIFIED DEMENTIA WITHOUT BEHAVIORAL DISTURBANCE (4) Failure to thrive Code(s): [id number] - (5) Functional quadriplegia Code(s): R53.2 - FUNCTIONAL QUADRIPLEGIA (6) Malnutrition Code(s): E46 - UNSPECIFIED PROTEIN-CALORIE MALNUTRITION
--- NOTE | 2019-08-22 12:46 | PN ---
Progress Note, Physician - Current Medication List Current Medications: Active Medications Acetaminophen (Tylenol Suppository -) 650 mg [place] Q6H PRN PRN Reason: FEVER Ascorbic Acid (Vitamin C -) 500 mg PO BID [facility] Last Admin: 08/22/19 09:35 Dose: Not Given Aspirin (Asa -) 81 mg PO DAILY [facility] Last Admin: 08/22/19 09:34 Dose: Not Given Atorvastatin Calcium (Lipitor -) 20 mg PO HS [facility] Last Admin: 08/21/19 21:07 Dose: Not Given Carvedilol (Coreg -) 12.5 mg PO BID [facility] Last Admin: 08/22/19 09:35 Dose: Not Given Ferrous Sulfate (Feosol -) 325 mg PO BIDWM [facility] Last Admin: 08/22/19 08:16 Dose: Not Given Heparin Sodium (Porcine) (Heparin -) 5,000 unit SQ BID [facility] Last Admin: 08/22/19 09:35 Dose: 5,000 unit Hydralazine HCl (Apresoline -) 10 mg PO BID [facility] Last Admin: 08/22/19 09:34 Dose: Not Given Amino Acids (Clinimix -) 1,000 mls @ 42 mls/hr IV Q24H [facility] Last Admin: 08/21/19 21:08 Dose: 42 mls/hr Isosorbide Mononitrate (Imdur -) 30 mg PO DAILY [facility] Last Admin: 08/22/19 09:35 Dose: Not Given Latanoprost (Xalatan 0.005% Eye Drops -) 1 drop OU HS [facility] Last Admin: 08/21/19 21:05 Dose: 1 drop Memantine (Namenda -) 5 mg PO BID [facility] Last Admin: 08/22/19 09:35 Dose: Not Given Mirtazapine (Remeron -) 7.5 mg PO HS [facility] Last Admin: 08/21/19 21:07 Dose: Not Given Pantoprazole Sodium (Protonix -) 40 mg PO DAILY [facility] Last Admin: 08/22/19 09:35 Dose: Not Given Torsemide (Demadex -) 20 mg PO DAILY [facility] Last Admin: 08/20/19 14:03 Dose: 20 mg - Objective Vital Signs: Vital Signs Temperature 98.8 F 08/22/19 08:56 Pulse Rate 74 08/22/19 08:56 Respiratory Rate 20 08/22/19 08:59 Blood Pressure 107/51 L 08/22/19 08:56 O2 Sat by Pulse Oximetry (%) 100 08/22/19 08:59 Labs: CBC, BMP 08/18/19 05:49 08/22/19 06:35 INR, PTT INR 1.21 (0.83-1.09) H 08/02/19 21:25
--- NOTE | 2019-08-22 14:42 | PN ---
Progress Note, Physician History of Present Illness: Pt seen and examined at bedside. He has poor po intake. - Current Medication List Current Medications: Active Medications Acetaminophen (Tylenol Suppository -) 650 mg [place] Q6H PRN PRN Reason: FEVER Ascorbic Acid (Vitamin C -) 500 mg PO BID [facility] Last Admin: 08/22/19 09:35 Dose: Not Given Aspirin (Asa -) 81 mg PO DAILY [facility] Last Admin: 08/22/19 09:34 Dose: Not Given Atorvastatin Calcium (Lipitor -) 20 mg PO HS [facility] Last Admin: 08/21/19 21:07 Dose: Not Given Carvedilol (Coreg -) 12.5 mg PO BID [facility] Last Admin: 08/22/19 09:35 Dose: Not Given Ferrous Sulfate (Feosol -) 325 mg PO BIDWM [facility] Last Admin: 08/22/19 08:16 Dose: Not Given Heparin Sodium (Porcine) (Heparin -) 5,000 unit SQ BID [facility] Last Admin: 08/22/19 09:35 Dose: 5,000 unit Hydralazine HCl (Apresoline -) 10 mg PO BID [facility] Last Admin: 08/22/19 09:34 Dose: Not Given Amino Acids (Clinimix -) 1,000 mls @ 42 mls/hr IV Q24H [facility] Last Admin: 08/21/19 21:08 Dose: 42 mls/hr Isosorbide Mononitrate (Imdur -) 30 mg PO DAILY [facility] Last Admin: 08/22/19 09:35 Dose: Not Given Latanoprost (Xalatan 0.005% Eye Drops -) 1 drop OU HS [facility] Last Admin: 08/21/19 21:05 Dose: 1 drop Memantine (Namenda -) 5 mg PO BID [facility] Last Admin: 08/22/19 09:35 Dose: Not Given Mirtazapine (Remeron -) 7.5 mg PO HS [facility] Last Admin: 08/21/19 21:07 Dose: Not Given Pantoprazole Sodium (Protonix -) 40 mg PO DAILY [facility] Last Admin: 08/22/19 09:35 Dose: Not Given Torsemide (Demadex -) 20 mg PO DAILY [facility] Last Admin: 08/20/19 14:03 Dose: 20 mg - Objective Vital Signs: Vital Signs Temperature 98.8 F 08/22/19 08:56 Pulse Rate 74 08/22/19 08:56 Respiratory Rate 20 08/22/19 08:59 Blood Pressure 107/51 L 08/22/19 08:56 O2 Sat by Pulse Oximetry (%) 100 08/22/19 08:59 Constitutional: Yes: Calm Eyes: Yes: Conjunctiva Clear HENT: Yes: Atraumatic Neck: Yes: Supple Cardiovascular: Yes: S1, S2 Respiratory: Yes: CTA Bilaterally Gastrointestinal: Yes: Soft Musculoskeletal: Yes: Muscle Weakness Edema: No Neurological: Yes: Confusion Labs: CBC, BMP 08/18/19 05:49 08/22/19 06:35 INR, PTT INR 1.21 (0.83-1.09) H 08/02/19 21:25 Problem List - Problems (1) CKD (chronic kidney disease) Code(s): N18.9 - CHRONIC KIDNEY DISEASE, UNSPECIFIED Qualifiers: Chronic kidney disease stage: unspecified stage Qualified Code(s): N18.9 - Chronic kidney disease, unspecified (2) Acute kidney injury Code(s): N17.9 - ACUTE KIDNEY FAILURE, UNSPECIFIED Assessment/Plan Current Medications Generic Name Dose Route Start Last Admin Trade Name Freq PRN Reason Stop Dose Admin Acetaminophen 650 mg 08/18/19 17:38 Tylenol Suppository - [place] Q6H PRN FEVER Ascorbic Acid 500 mg 08/18/19 22:00 08/22/19 09:35 Vitamin C - PO Not Given BID [facility] Aspirin 81 mg 08/19/19 10:00 08/22/19 09:34 Asa - PO Not Given DAILY [facility] Atorvastatin Calcium 20 mg 08/18/19 22:00 08/21/19 21:07 Lipitor - PO Not Given HS [facility] Carvedilol 12.5 mg 08/18/19 22:00 08/22/19 09:35 Coreg - PO Not Given BID [facility] Ferrous Sulfate 325 mg 08/19/19 08:00 08/22/19 08:16 Feosol - PO Not Given BIDWM [facility] Heparin Sodium (Porcine) 5,000 unit 08/18/19 22:00 08/22/19 09:35 Heparin - SQ 5,000 unit BID [facility] Administration Hydralazine HCl 10 mg 08/18/19 22:00 08/22/19 09:34 Apresoline - PO Not Given BID [facility] Amino Acids 1,000 mls @ 42 mls/hr 08/18/19 18:45 08/21/19 21:08 Clinimix - IV 42 mls/hr Q24H [facility] Administration Isosorbide Mononitrate 30 mg 08/19/19 10:00 08/22/19 09:35 Imdur - PO Not Given DAILY [facility] Latanoprost 1 drop 08/18/19 22:00 08/21/19 21:05 Xalatan 0.005% Eye Drops - OU 1 drop HS [facility] Administration Memantine 5 mg 08/18/19 22:00 08/22/19 09:35 Namenda - PO Not Given BID [facility] Mirtazapine 7.5 mg 08/20/19 22:00 08/21/19 21:07 Remeron - PO Not Given HS [facility] Pantoprazole Sodium 40 mg 08/19/19 10:00 08/22/19 09:35 Protonix - PO Not Given DAILY [facility] Torsemide 20 mg 08/20/19 10:00 08/20/19 14:03 Demadex - PO 20 mg DAILY [facility] Administration Impression 1. LAURA 2. lethargy 3. recent pna and sepsis 4. ckd 5. copd 6. dm 7. hx htn 8. dementia Plan - cont clinimix for now - monitor lytes - encourage po intake - avoid nephrotoxins - monitor bp
[2019-08-22] MEDS: AMINO ACIDS 4.25%/D5W 1,000 ML IV SCH (19:12)
[2019-08-22] MEDS: ATORVASTATIN CA 20 MG TABLET (FP) PO SCH (22:08)
[2019-08-22] MEDS: LATANOPROST 0.005% OPHTH SOLN 2.5ML BOTTLE OU SCH (22:09)
[2019-08-22] MEDS: MIRTAZAPINE 15 MG TABLET (FP) PO SCH (22:09)
[2019-08-23 02:58] VITALS: BMI 27.1
[2019-08-23 07:58] LABS: ALBUMIN 1.6 g/dl (3.4-5.0); BILIRUBIN,TOTAL 0.7 mg/dL (0.2-1); BLOOD UREA NITROGEN 62.3 mg/dL (7-18); CALCIUM 8.4 mg/dL (8.5-10.1); CREATININE 3.5 mg/dL (0.55-1.3); POTASSIUM 4.1 mmol/L (3.5-5.1); TOT PROT 5.9 g/dl (6.4-8.2)
--- NOTE | 2019-08-23 09:00 | PN ---
Progress Note (short form) - Note Progress Note: Chief Complaint: Events noted, notes reviewed, non verbal in no acute distress, overall no change in status History of Present Illness: Seen and examined on telemetry. Events noted, notes reviewed, non verbal in no acute distress, overall no change in status - Current Medication List Current Medications Acetaminophen (Tylenol Suppository -) 650 mg UT Q6H PRN PRN Reason: FEVER Ascorbic Acid (Vitamin C -) 500 mg PO BID [facility] Last Admin: 08/23/19 09:41 Dose: Not Given Aspirin (Asa -) 81 mg PO DAILY [facility] Last Admin: 08/23/19 09:40 Dose: Not Given Atorvastatin Calcium (Lipitor -) 20 mg PO HS [facility] Last Admin: 08/22/19 22:08 Dose: Not Given Carvedilol (Coreg -) 12.5 mg PO BID [facility] Last Admin: 08/23/19 09:40 Dose: Not Given Ferrous Sulfate (Feosol -) 325 mg PO BIDWM [facility] Last Admin: 08/23/19 09:40 Dose: Not Given Heparin Sodium (Porcine) (Heparin -) 5,000 unit SQ BID [facility] Last Admin: 08/23/19 09:41 Dose: 5,000 unit Hydralazine HCl (Apresoline -) 10 mg PO BID [facility] Last Admin: 08/23/19 09:40 Dose: Not Given Amino Acids (Clinimix -) 1,000 mls @ 42 mls/hr IV Q24H [facility] Last Admin: 08/23/19 09:41 Dose: 42 mls/hr Isosorbide Mononitrate (Imdur -) 30 mg PO DAILY [facility] Last Admin: 08/23/19 09:40 Dose: Not Given Latanoprost (Xalatan 0.005% Eye Drops -) 1 drop OU HS [facility] Last Admin: 08/22/19 22:09 Dose: 1 drop Memantine (Namenda -) 5 mg PO BID [facility] Last Admin: 08/23/19 09:40 Dose: Not Given Mirtazapine (Remeron -) 7.5 mg PO HS [facility] Last Admin: 08/22/19 22:09 Dose: Not Given Pantoprazole Sodium (Protonix -) 40 mg PO DAILY [facility] Last Admin: 08/23/19 09:40 Dose: Not Given Torsemide (Demadex -) 20 mg PO DAILY [facility] Last Admin: 08/20/19 14:03 Dose: 20 mg Review of Systems Unable to obtain - Objective Vital Signs: Last Vital Signs Temp Pulse Resp BP Pulse Ox 98.7 F 92 H 20 120/52 L 100 08/23/19 08:20 08/23/19 08:20 08/23/19 08:22 08/23/19 08:20 08/23/19 08:22 Intake & Output 08/20/19 08/21/19 08/22/19 08/23/19 23:59 23:59 23:59 23:59 Intake Total 336 036 2697 492 Balance 594 152 7965 492 Weight 151 lb 3.2 oz 152 lb 6.4 oz 150 lb 8 oz Neck: Supple Negative JVD No Bruit Respiratory: Scattered Rhonchi Bilaterally Cardiovascular: S1 S2 Regular Rate and Rhythm Gastrointestinal: Soft Benign Normal Bowel Sounds Ext: No Edema Labs: CBC, BMP 08/18/19 05:49 08/23/19 07:00 Hepatic Panel Total Bilirubin 0.7 mg/dL (0.2-1) 08/23/19 07:00 AST 25 U/L (15-37) 08/23/19 07:00 ALT 14 U/L (13-61) 08/23/19 07:00 Alkaline Phosphatase 59 U/L (45-117) 08/23/19 07:00 Albumin 1.6 g/dl (3.4-5.0) L 08/23/19 07:00 INR, PTT INR 1.21 (0.83-1.09) H 08/02/19 21:25 ABG Results ABG pH 7.42 (7.35-7.45) 08/16/19 06:30 ABG pCO2 at Pt Temp 27.0 mmHg (35-45) L 08/16/19 06:30 ABG pO2 at Pt Temp 113 mmHg (80-100) H 08/16/19 06:30 ABG HCO3 17.2 mmol/L (22-27) L 08/16/19 06:30 ABG O2 Sat (Measured) 98.3 % (95-98) H 08/16/19 06:30 ABG O2 Content 9.7 % vol 08/16/19 06:30 ABG Base Excess -6.2 meq/l (-2-2) L 08/16/19 06:30 Assessment/Plan ASSESSMENT: 1. Pneumonia with sepsis syndrome, resolved 2. Chronic hypoxic respiratory failure referable to 3. 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 CAD with demand ischemic injury angina pectoris for conservative medical management 6. Advanced AV block post pacemaker implant 7. HTN 8. Hypercholesterolemia 9. Organic brain syndrome/dementia 10. Acute on CKD 11. Anemia of chronic disease PLAN: 1. Continue diuretics- Demadex, with close monitoring or renal function 2. Continue Carvedilol 3. Continue Imdur and Hydralazine/BiDil 4. As outlined in the prior notes resume ARBS once renal function at baseline 5. Continue Lipitor 6. Continue BISI Galeano M.D.
[2019-08-23] MEDS: hydrALAZINE HCL 10 MG TABLET PO SCH ×2 (09:40→22:01)
[2019-08-23] MEDS: PANTOPRAZOLE 40 MG TABLET (FP) PO SCH (09:40)
[2019-08-23] MEDS: CARVEDILOL 12.5 MG TABLET (FP) PO SCH ×2 (09:40→22:01)
[2019-08-23] MEDS: ISOSORBIDE MONONITRATE 30 MG TAB.SR.24H (FP) PO SCH (09:40)
[2019-08-23] MEDS: ASPIRIN 81 MG CHEWABLE TABLETS PO SCH (09:40)
[2019-08-23] MEDS: MEMANTINE HCL 5 MG TABLET (UD) PO SCH ×2 (09:40→22:01)
[2019-08-23] MEDS: FERROUS SO4 325 MG TABLET (FP) PO SCH ×2 (09:40→18:01)
[2019-08-23] MEDS: HEPARIN NA (PORCINE) 5,000 UNITS/ML 1ML VIAL SQ SCH ×2 (09:41→22:00)
[2019-08-23] MEDS: AMINO ACIDS 4.25%/D5W 1,000 ML IV SCH ×2 (09:41→18:02)
[2019-08-23] MEDS: ASCORBIC ACID 500 MG TABLET (FP) PO SCH ×2 (09:41→22:01)
--- NOTE | 2019-08-23 11:08 | PN ---
Progress Note, [employer] - Note Progress Note: Selected Entries 08/16/19 08/16/19 08/17/19 12:08 12:24 10:58 Breakfast 0 0 Lunch 0 Temperature 08/17/19 08/19/19 08/19/19 14:01 02:00 06:00 Breakfast Lunch 25% Temperature 97.5 F L 99.0 F 08/19/19 08/19/19 10:00 10:46 Breakfast 25% Lunch Temperature 98.9 F Laboratory Tests 08/16/19 08/18/19 06:10 05:49 WBC 5.8 7.1 Selected Entries 08/22/19 08:56 Skin Risk Level Very High Risk Supper 0 Temperature 98.8 F Selected Entries 08/22/19 08/22/19 08/22/19 08:56 11:52 18:00 Breakfast 0 Diet Tolerated Refused Refused Refused Supper 0 Temperature 98.8 F 98.0 F 08/22/19 08/23/19 08/23/19 22:00 02:00 06:00 Breakfast Diet Tolerated Supper Temperature 99.2 F 98.1 F 98.7 F 08/23/19 08:20 Breakfast Diet Tolerated Refused Supper Temperature 98.7 F On puree/nectar. Living will. Full code. Palliative care consult appreciated. Refusing Po.
--- NOTE | 2019-08-23 12:32 | PN ---
Progress Note, Physician - Current Medication List Current Medications: Active Medications Acetaminophen (Tylenol Suppository -) 650 mg SC Q6H PRN PRN Reason: FEVER Ascorbic Acid (Vitamin C -) 500 mg PO BID [facility] Last Admin: 08/23/19 09:41 Dose: Not Given Aspirin (Asa -) 81 mg PO DAILY [facility] Last Admin: 08/23/19 09:40 Dose: Not Given Atorvastatin Calcium (Lipitor -) 20 mg PO HS [facility] Last Admin: 08/22/19 22:08 Dose: Not Given Carvedilol (Coreg -) 12.5 mg PO BID [facility] Last Admin: 08/23/19 09:40 Dose: Not Given Ferrous Sulfate (Feosol -) 325 mg PO BIDWM [facility] Last Admin: 08/23/19 09:40 Dose: Not Given Heparin Sodium (Porcine) (Heparin -) 5,000 unit SQ BID [facility] Last Admin: 08/23/19 09:41 Dose: 5,000 unit Hydralazine HCl (Apresoline -) 10 mg PO BID [facility] Last Admin: 08/23/19 09:40 Dose: Not Given Amino Acids (Clinimix -) 1,000 mls @ 42 mls/hr IV Q24H [facility] Last Admin: 08/23/19 09:41 Dose: 42 mls/hr Isosorbide Mononitrate (Imdur -) 30 mg PO DAILY [facility] Last Admin: 08/23/19 09:40 Dose: Not Given Latanoprost (Xalatan 0.005% Eye Drops -) 1 drop OU HS [facility] Last Admin: 08/22/19 22:09 Dose: 1 drop Memantine (Namenda -) 5 mg PO BID [facility] Last Admin: 08/23/19 09:40 Dose: Not Given Mirtazapine (Remeron -) 7.5 mg PO HS [facility] Last Admin: 08/22/19 22:09 Dose: Not Given Pantoprazole Sodium (Protonix -) 40 mg PO DAILY [facility] Last Admin: 08/23/19 09:40 Dose: Not Given Torsemide (Demadex -) 20 mg PO DAILY [facility] Last Admin: 08/20/19 14:03 Dose: 20 mg - Objective Vital Signs: Vital Signs Temperature 98.7 F 08/23/19 08:20 Pulse Rate 92 H 08/23/19 08:20 Respiratory Rate 20 08/23/19 08:22 Blood Pressure 120/52 L 08/23/19 08:20 O2 Sat by Pulse Oximetry (%) 100 08/23/19 08:22 Labs: CBC, BMP 08/18/19 05:49 08/23/19 07:00 INR, PTT INR 1.21 (0.83-1.09) H 08/02/19 21:25
--- NOTE | 2019-08-23 13:44 | PN ---
Progress Note (short form) - Note Progress Note: not eating much -- just wants water poor po intake family decided [facility] they want iv fluids and antibiotics Vital Signs - 24 hr 08/22/19 08/22/19 08/22/19 18:00 21:00 22:00 Temperature 98.0 F 99.2 F Pulse Rate 94 H 91 H Respiratory 20 20 20 Rate Blood Pressure 118/67 121/59 L O2 Sat by Pulse 100 100 Oximetry (%) 08/23/19 08/23/19 08/23/19 02:00 06:00 08:20 Temperature 98.1 F 98.7 F 98.7 F Pulse Rate 106 H 95 H 92 H Respiratory 20 20 20 Rate Blood Pressure 123/69 127/77 120/52 L O2 Sat by Pulse 100 Oximetry (%) 08/23/19 08:22 Temperature Pulse Rate Respiratory 20 Rate Blood Pressure O2 Sat by Pulse 100 Oximetry (%) Current Medications Generic Name Dose Route Start Last Admin Trade Name Freq PRN Reason Stop Dose Admin Acetaminophen 650 mg 08/18/19 17:38 Tylenol Suppository - [place] Q6H PRN FEVER Ascorbic Acid 500 mg 08/18/19 22:00 08/23/19 09:41 Vitamin C - PO Not Given BID [facility] Aspirin 81 mg 08/19/19 10:00 08/23/19 09:40 Asa - PO Not Given DAILY [facility] Atorvastatin Calcium 20 mg 08/18/19 22:00 08/22/19 22:08 Lipitor - PO Not Given HS [facility] Carvedilol 12.5 mg 08/18/19 22:00 08/23/19 09:40 Coreg - PO Not Given BID [facility] Ferrous Sulfate 325 mg 08/19/19 08:00 08/23/19 09:40 Feosol - PO Not Given BIDWM [facility] Heparin Sodium (Porcine) 5,000 unit 08/18/19 22:00 08/23/19 09:41 Heparin - SQ 5,000 unit BID [facility] Administration Hydralazine HCl 10 mg 08/18/19 22:00 08/23/19 09:40 Apresoline - PO Not Given BID [facility] Amino Acids 1,000 mls @ 42 mls/hr 08/18/19 18:45 08/23/19 09:41 Clinimix - IV 42 mls/hr Q24H [facility] Administration Isosorbide Mononitrate 30 mg 08/19/19 10:00 08/23/19 09:40 Imdur - PO Not Given DAILY [facility] Latanoprost 1 drop 08/18/19 22:00 08/22/19 22:09 Xalatan 0.005% Eye Drops - OU 1 drop HS [facility] Administration Memantine 5 mg 08/18/19 22:00 08/23/19 09:40 Namenda - PO Not Given BID [facility] Mirtazapine 7.5 mg 08/20/19 22:00 08/22/19 22:09 Remeron - PO Not Given HS [facility] Pantoprazole Sodium 40 mg 08/19/19 10:00 08/23/19 09:40 Protonix - PO Not Given DAILY [facility] Torsemide 20 mg 08/20/19 10:00 08/20/19 14:03 Demadex - PO 20 mg DAILY [facility] Administration Laboratory Results - last 24 hr 08/23/19 07:00 Sodium 136 Potassium 4.1 Chloride 106 Carbon Dioxide 18 L Anion Gap 11 BUN 62.3 H Creatinine 3.5 H Est GFR (CKD-EPI)AfAm 17.41 Est GFR (CKD-EPI)NonAf 15.02 Random Glucose 107 H Calcium 8.4 L Total Bilirubin 0.7 AST 25 ALT 14 Alkaline Phosphatase 59 Total Protein 5.9 L Albumin 1.6 L S1 S2 RRR Lungs decreased breath sounds Abd- soft, obese, NT No edema PLAN Iv antibiotics dc on iv clinimix monitor renal function --worse today due to poor po intake Neurology deidrenatalia noted - on aricept -->advance dementia spoke with GI as per pt living will-- states he does not want artificial nutrition or lifesupport palliative care viki noted for [facility] on clinimix Problem List - Problems (1) Acute on chronic combined systolic and diastolic congestive heart failure Code(s): I50.43 - ACUTE ON CHRONIC COMBINED SYSTOLIC AND DIASTOLIC HRT FAIL (2) Anemia Code(s): D64.9 - ANEMIA, UNSPECIFIED Qualifiers: Anemia type: unspecified type Qualified Code(s): D64.9 - Anemia, unspecified (3) Acute and chronic respiratory failure with hypoxia Code(s): J96.21 - ACUTE AND CHRONIC RESPIRATORY FAILURE WITH HYPOXIA (4) Acute on chronic renal failure Code(s): N17.9 - ACUTE KIDNEY FAILURE, UNSPECIFIED; N18.9 - CHRONIC KIDNEY DISEASE, UNSPECIFIED Qualifiers: Chronic kidney disease stage: stage 3 (moderate) (5) CHF (congestive heart failure) Code(s): I50.9 - HEART FAILURE, UNSPECIFIED Qualifiers: Heart failure type: combined systolic and diastolic Heart failure chronicity: chronic Qualified Code(s): I50.42 - Chronic combined systolic ( congestive) and diastolic (congestive) heart failure (6) COPD (chronic obstructive pulmonary disease) Code(s): J44.9 - CHRONIC OBSTRUCTIVE PULMONARY DISEASE, UNSPECIFIED Qualifiers: (7) Pneumonia Code(s): J18.9 - PNEUMONIA, UNSPECIFIED ORGANISM (8) Malnutrition Code(s): E46 - UNSPECIFIED PROTEIN-CALORIE MALNUTRITION (9) Functional quadriplegia Code(s): R53.2 - FUNCTIONAL QUADRIPLEGIA
--- NOTE | 2019-08-23 15:34 | PN ---
Progress Note, Physician History of Present Illness: Pt seen and examined at bedside. He appears comfortable. - Current Medication List Current Medications: Active Medications Acetaminophen (Tylenol Suppository -) 650 mg AL Q6H PRN PRN Reason: FEVER Ascorbic Acid (Vitamin C -) 500 mg PO BID [facility] Last Admin: 08/23/19 09:41 Dose: Not Given Aspirin (Asa -) 81 mg PO DAILY [facility] Last Admin: 08/23/19 09:40 Dose: Not Given Atorvastatin Calcium (Lipitor -) 20 mg PO HS [facility] Last Admin: 08/22/19 22:08 Dose: Not Given Carvedilol (Coreg -) 12.5 mg PO BID [facility] Last Admin: 08/23/19 09:40 Dose: Not Given Ferrous Sulfate (Feosol -) 325 mg PO BIDWM [facility] Last Admin: 08/23/19 09:40 Dose: Not Given Heparin Sodium (Porcine) (Heparin -) 5,000 unit SQ BID [facility] Last Admin: 08/23/19 09:41 Dose: 5,000 unit Hydralazine HCl (Apresoline -) 10 mg PO BID [facility] Last Admin: 08/23/19 09:40 Dose: Not Given Amino Acids (Clinimix -) 1,000 mls @ 42 mls/hr IV Q24H [facility] Last Admin: 08/23/19 09:41 Dose: 42 mls/hr Isosorbide Mononitrate (Imdur -) 30 mg PO DAILY [facility] Last Admin: 08/23/19 09:40 Dose: Not Given Latanoprost (Xalatan 0.005% Eye Drops -) 1 drop OU HS [facility] Last Admin: 08/22/19 22:09 Dose: 1 drop Memantine (Namenda -) 5 mg PO BID [facility] Last Admin: 08/23/19 09:40 Dose: Not Given Mirtazapine (Remeron -) 7.5 mg PO HS [facility] Last Admin: 08/22/19 22:09 Dose: Not Given Pantoprazole Sodium (Protonix -) 40 mg PO DAILY [facility] Last Admin: 08/23/19 09:40 Dose: Not Given Torsemide (Demadex -) 20 mg PO DAILY [facility] Last Admin: 08/20/19 14:03 Dose: 20 mg - Objective Vital Signs: Vital Signs Temperature 98.7 F 08/23/19 08:20 Pulse Rate 92 H 08/23/19 08:20 Respiratory Rate 20 08/23/19 08:22 Blood Pressure 120/52 L 08/23/19 08:20 O2 Sat by Pulse Oximetry (%) 100 08/23/19 08:22 Constitutional: Yes: Calm Eyes: Yes: Conjunctiva Clear HENT: Yes: Atraumatic Neck: Yes: Supple Cardiovascular: Yes: S1, S2 Respiratory: Yes: CTA Bilaterally Gastrointestinal: Yes: Soft Genitourinary: Yes: Incontinence Musculoskeletal: Yes: Muscle Weakness Edema: No Integumentary: Yes: WNL Neurological: Yes: Confusion Labs: CBC, BMP 08/18/19 05:49 08/23/19 07:00 INR, PTT INR 1.21 (0.83-1.09) H 08/02/19 21:25 Problem List - Problems (1) CKD (chronic kidney disease) Code(s): N18.9 - CHRONIC KIDNEY DISEASE, UNSPECIFIED Qualifiers: Chronic kidney disease stage: unspecified stage Qualified Code(s): N18.9 - Chronic kidney disease, unspecified (2) Acute kidney injury Code(s): N17.9 - ACUTE KIDNEY FAILURE, UNSPECIFIED Assessment/Plan Current Medications Generic Name Dose Route Start Last Admin Trade Name Freq PRN Reason Stop Dose Admin Acetaminophen 650 mg 08/18/19 17:38 Tylenol Suppository - [place] Q6H PRN FEVER Ascorbic Acid 500 mg 08/18/19 22:00 08/23/19 09:41 Vitamin C - PO Not Given BID [facility] Aspirin 81 mg 08/19/19 10:00 08/23/19 09:40 Asa - PO Not Given DAILY [facility] Atorvastatin Calcium 20 mg 08/18/19 22:00 08/22/19 22:08 Lipitor - PO Not Given HS [facility] Carvedilol 12.5 mg 08/18/19 22:00 08/23/19 09:40 Coreg - PO Not Given BID [facility] Ferrous Sulfate 325 mg 08/19/19 08:00 08/23/19 09:40 Feosol - PO Not Given BIDWM [facility] Heparin Sodium (Porcine) 5,000 unit 08/18/19 22:00 08/23/19 09:41 Heparin - SQ 5,000 unit BID [facility] Administration Hydralazine HCl 10 mg 08/18/19 22:00 12/03/19 09:40 Apresoline - PO Not Given BID [facility] Amino Acids 1,000 mls @ 42 mls/hr 08/18/19 18:45 08/23/19 09:41 Clinimix - IV 42 mls/hr Q24H [facility] Administration Isosorbide Mononitrate 30 mg 08/19/19 10:00 08/23/19 09:40 Imdur - PO Not Given DAILY [facility] Latanoprost 1 drop 08/18/19 22:00 08/22/19 22:09 Xalatan 0.005% Eye Drops - OU 1 drop HS [facility] Administration Memantine 5 mg 08/18/19 22:00 08/23/19 09:40 Namenda - PO Not Given BID [facility] Mirtazapine 7.5 mg 08/20/19 22:00 08/22/19 22:09 Remeron - PO Not Given HS [facility] Pantoprazole Sodium 40 mg 08/19/19 10:00 08/23/19 09:40 Protonix - PO Not Given DAILY [facility] Torsemide 20 mg 08/20/19 10:00 08/20/19 14:03 Demadex - PO 20 mg DAILY [facility] Administration Impression 1. LAURA 2. lethargy 3. recent pna and sepsis 4. ckd 5. copd 6. dm 7. hx htn 8. dementia Plan - monitor renal function - encourage po intake - avoid nephrotoxins - monitor bp - pt remains on clinimix
[2019-08-23] MEDS: MIRTAZAPINE 15 MG TABLET (FP) PO SCH (22:01)
[2019-08-23] MEDS: ATORVASTATIN CA 20 MG TABLET (FP) PO SCH (22:01)
[2019-08-23] MEDS: LATANOPROST 0.005% OPHTH SOLN 2.5ML BOTTLE OU SCH (22:01)
--- NOTE | 2019-08-24 09:20 | PN ---
Progress Note, Physician Chief Complaint: Events noted No change History of Present Illness: Patient was seen and examined. Chart was reviewed - Current Medication List Current Medications: Active Medications Acetaminophen (Tylenol Suppository -) 650 mg [place] Q6H PRN PRN Reason: FEVER Ascorbic Acid (Vitamin C -) 500 mg PO BID [facility] Last Admin: 08/23/19 22:01 Dose: Not Given Aspirin (Asa -) 81 mg PO DAILY [facility] Last Admin: 08/23/19 09:40 Dose: Not Given Atorvastatin Calcium (Lipitor -) 20 mg PO HS [facility] Last Admin: 08/23/19 22:01 Dose: Not Given Carvedilol (Coreg -) 12.5 mg PO BID [facility] Last Admin: 08/23/19 22:01 Dose: Not Given Ferrous Sulfate (Feosol -) 325 mg PO BIDWM [facility] Last Admin: 08/23/19 18:01 Dose: Not Given Heparin Sodium (Porcine) (Heparin -) 5,000 unit SQ BID [facility] Last Admin: 08/23/19 22:00 Dose: 5,000 unit Hydralazine HCl (Apresoline -) 10 mg PO BID [facility] Last Admin: 08/23/19 22:01 Dose: Not Given Amino Acids (Clinimix -) 1,000 mls @ 42 mls/hr IV Q24H [facility] Last Admin: 08/23/19 18:02 Dose: Not Given Isosorbide Mononitrate (Imdur -) 30 mg PO DAILY [facility] Last Admin: 08/23/19 09:40 Dose: Not Given Latanoprost (Xalatan 0.005% Eye Drops -) 1 drop OU HS [facility] Last Admin: 08/23/19 22:01 Dose: 1 drop Memantine (Namenda -) 5 mg PO BID [facility] Last Admin: 08/23/19 22:01 Dose: Not Given Mirtazapine (Remeron -) 7.5 mg PO HS [facility] Last Admin: 08/23/19 22:01 Dose: Not Given Pantoprazole Sodium (Protonix -) 40 mg PO DAILY [facility] Last Admin: 08/23/19 09:40 Dose: Not Given Torsemide (Demadex -) 20 mg PO DAILY [facility] Last Admin: 08/20/19 14:03 Dose: 20 mg - Objective Vital Signs: Vital Signs Temperature 97.8 F 08/24/19 06:00 Pulse Rate 95 H 08/24/19 06:00 Respiratory Rate 20 08/24/19 06:00 Blood Pressure 126/74 08/24/19 06:00 O2 Sat by Pulse Oximetry (%) 98 08/23/19 22:00 Neck: Yes: Supple Cardiovascular: Yes: Regular Rate and Rhythm, S1, S2 Respiratory: Yes: CTA Bilaterally Gastrointestinal: Yes: Normal Bowel Sounds, Soft. No: Tenderness Edema: No Problem List - Problems (1) Acute on chronic combined systolic and diastolic congestive heart failure Code(s): I50.43 - ACUTE ON CHRONIC COMBINED SYSTOLIC AND DIASTOLIC HRT FAIL (2) Anemia Code(s): D64.9 - ANEMIA, UNSPECIFIED Qualifiers: Anemia type: unspecified type Qualified Code(s): D64.9 - Anemia, unspecified (3) CKD (chronic kidney disease) Code(s): N18.9 - CHRONIC KIDNEY DISEASE, UNSPECIFIED Qualifiers: Chronic kidney disease stage: unspecified stage Qualified Code(s): N18.9 - Chronic kidney disease, unspecified (4) Dementia Code(s): F03.90 - UNSPECIFIED DEMENTIA WITHOUT BEHAVIORAL DISTURBANCE (5) Sepsis Code(s): A41.9 - SEPSIS, UNSPECIFIED ORGANISM (6) UTI (urinary tract infection) Code(s): N39.0 - URINARY TRACT INFECTION, SITE NOT SPECIFIED Qualifiers: Urinary tract infection type: site unspecified Hematuria presence: without hematuria Qualified Code(s): N39.0 - Urinary tract infection, site not specified (7) Acute and chronic respiratory failure Code(s): J96.20 - ACUTE AND CHR RESP FAILURE, UNSP W HYPOXIA OR HYPERCAPNIA Qualifiers: Respiratory failure complication: hypoxia Qualified Code(s): J96.21 - Acute and chronic respiratory failure with hypoxia (8) Acute and chronic respiratory failure with hypoxia Code(s): J96.21 - ACUTE AND CHRONIC RESPIRATORY FAILURE WITH HYPOXIA (9) Acute on chronic renal failure Code(s): N17.9 - ACUTE KIDNEY FAILURE, UNSPECIFIED; N18.9 - CHRONIC KIDNEY DISEASE, UNSPECIFIED Qualifiers: Chronic kidney disease stage: stage 3 (moderate) (10) COPD (chronic obstructive pulmonary disease) Code(s): J44.9 - CHRONIC OBSTRUCTIVE PULMONARY DISEASE, UNSPECIFIED Qualifiers: (11) Cardiac pacemaker in situ Code(s): Z95.0 - PRESENCE OF CARDIAC PACEMAKER (12) Diastolic dysfunction without heart failure Code(s): I51.9 - HEART DISEASE, UNSPECIFIED (13) Generalized weakness Code(s): R53.1 - WEAKNESS (14) High-grade atrioventricular block Code(s): I44.39 - OTHER ATRIOVENTRICULAR BLOCK (15) ASHD (arteriosclerotic heart disease) Code(s): I25.10 - ATHSCL HEART DISEASE OF [place] CORONARY ARTERY W/O ANG PCTRS (16) Diabetes mellitus Code(s): E11.9 - TYPE 2 DIABETES MELLITUS WITHOUT COMPLICATIONS Qualifiers: Diabetes mellitus type: type 2 Diabetes mellitus long chain beamer insulin use: without long chain beamer use Diabetes mellitus complication status: with unspecified complications (17) Hyperlipidemia Code(s): E78.5 - HYPERLIPIDEMIA, UNSPECIFIED Qualifiers: Hyperlipidemia type: pure hypercholesterolemia Qualified Code(s): E78.00 - Pure hypercholesterolemia, unspecified (18) Hypertension Code(s): I10 - ESSENTIAL (PRIMARY) HYPERTENSION Qualifiers: Hypertension type: essential hypertension Qualified Code(s): I10 - Essential (primary) hypertension Assessment/Plan 1. Post Coag negative staph sepsis and Klebsiella PNA + UTI 2. Chronic Hypoxic Respiratory Failure 3. Acute on Chronic Systolic Heart Failure 4. 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 Advanced AV block post pacemaker implant 7. HTN 8. Hypercholesterolemia 9. DHEERAJ 10. Acute on CKD 11. Anemia of chronic disease with h/o diverticular disease 12. Dementia PLAN: 1. Oral diuretics with monitoring renal function and electrolytes 2. Continue Carvedilol 12.5 mg BID, Lipitor 20 mg QHS, ASA 81 mg QD, Hydralazine 10 mg BID and Imdur 30 mg QD. Losartan held pending renal function stabilization 3. Bronchodilators 4. GI and DVT prophylaxis. Declined PEG Weston Tillman MD
[2019-08-24 10:45] VITALS: BP 101/58; PULSE 85; TEMP 98.7
--- NOTE | 2019-08-24 12:08 | DS ---
Physical Examination Vital Signs: Vital Signs Temperature 98.7 F 08/24/19 10:00 Pulse Rate 85 08/24/19 10:00 Respiratory Rate 22 H 08/24/19 10:00 Blood Pressure 101/58 L 08/24/19 10:00 O2 Sat by Pulse Oximetry (%) 98 08/23/19 22:00 Constitutional: Yes: No Distress Cardiovascular: Yes: Regular Rate and Rhythm Respiratory: Yes: Diminished Gastrointestinal: Yes: Normal Bowel Sounds, Soft. No: Tenderness Edema: No Labs: CBC, BMP 08/18/19 05:49 08/23/19 07:00 Discharge Summary Problems reviewed: Yes Reason For Visit: CONGSTIVE HEART FAILURE, ANEMIA,DYSPNEA Current Active Problems Acute on chronic combined systolic and diastolic congestive heart failure (Acute ) Anemia (Acute) CKD (chronic kidney disease) (Acute) Dementia (Acute) Failure to thrive (Acute) Functional quadriplegia (Acute) Malnutrition (Acute) Sepsis (Acute) UTI (urinary tract infection) (Acute) Hospital Course: ADMISSION - Admission Chief Complaint: AMS, Abnormal Chest Xray History of Present Illness: This is a 84 y/o man from [facility] with a significant PMHx of COPD, CHF ( reduced EF), CAD, Diabetes, HLD, HTN, Dementia. per ED record: Who presents to the ED for evaluation of lethargy. As per the [facility] staff, the patient seemed less alert and more lethargic today. They also note that the patient had some infiltrate on his chest x-ray today. The patient was discharged on 07/29/19 after being admitted for sepsis. Patient unable to contribute to history due to Dementia. ED course was noted for: (1) BNP 27592 (2) Cr 3.5 (3) Chest Xray image- RML Infiltrate (4) UA- +nitrates, +3 leukocytes esterase, +3 blood, WBC 67, Bacteria 360 HOSPITAL COURSE He was seen by ID, Cardiology, renal started on antibiotics,lasix Blood cultures positive for staph coag negative repeat cultures negative pt 's renal function is worse Anemic Pt has advanced dementia-- evaluated by Neurology -- EEG normal Pt is refusing to eat Losing weight due to advanced dementia and illness worsening renal function Family decided DNR/DNI He is being transferred to [facility] Condition: Guarded - Instructions Referrals: Teo Herring MD [Primary Care Provider] - - Home Medications Comprehensive Discharge Medication List: Ambulatory Orders Aspirin Coated [Ecotrin -] 81 mg PO DAILY 12/19/18 Atorvastatin Ca [Lipitor] 20 mg PO HS 12/19/18 Carvedilol [Coreg -] 12.5 mg PO BID 12/19/18 Latanoprost/Pf [Latanoprost 0.005% Eye Drop] 7.5 ml OP DAILY 12/19/18 Pantoprazole Sodium 40 mg PO DAILY 12/19/18 Risperidone [Risperdal] 1 mg PO DAILY 12/19/18 Cholecalciferol (Vitamin D3) [Vitamin D3] 2,000 unit PO DAILY 07/21/19 Cyanocobalamin [Vitamin B12 -] 1,000 mcg PO DAILY 07/21/19 Albuterol 2.5/Ipratropium 0.5 [Duoneb -] 1 amp NEB Q6H PRN amp 07/29/19 Diphenhydramine HCl [Benadryl Capsule -] 25 mg PO Q6H PRN #0 capsule 07/29/19 Prednisone 10 mg PO DAILY 07/29/19 Torsemide [Demadex -] 20 mg PO ASDIR #0 tab 07/29/19
--- NOTE | 2019-08-24 12:14 | PN ---
Progress Note, Physician History of Present Illness: Pt seen and examined at bedside. No new events. - Current Medication List Current Medications: Active Medications Acetaminophen (Tylenol Suppository -) 650 mg [place] Q6H PRN PRN Reason: FEVER Ascorbic Acid (Vitamin C -) 500 mg PO BID [facility] Last Admin: 08/23/19 22:01 Dose: Not Given Aspirin (Asa -) 81 mg PO DAILY [facility] Last Admin: 08/23/19 09:40 Dose: Not Given Atorvastatin Calcium (Lipitor -) 20 mg PO HS [facility] Last Admin: 08/23/19 22:01 Dose: Not Given Carvedilol (Coreg -) 12.5 mg PO BID [facility] Last Admin: 08/23/19 22:01 Dose: Not Given Ferrous Sulfate (Feosol -) 325 mg PO BIDWM [facility] Last Admin: 08/23/19 18:01 Dose: Not Given Heparin Sodium (Porcine) (Heparin -) 5,000 unit SQ BID [facility] Last Admin: 08/23/19 22:00 Dose: 5,000 unit Hydralazine HCl (Apresoline -) 10 mg PO BID [facility] Last Admin: 08/23/19 22:01 Dose: Not Given Amino Acids (Clinimix -) 1,000 mls @ 42 mls/hr IV Q24H [facility] Last Admin: 08/23/19 18:02 Dose: Not Given Isosorbide Mononitrate (Imdur -) 30 mg PO DAILY [facility] Last Admin: 08/23/19 09:40 Dose: Not Given Latanoprost (Xalatan 0.005% Eye Drops -) 1 drop OU HS [facility] Last Admin: 08/23/19 22:01 Dose: 1 drop Memantine (Namenda -) 5 mg PO BID [facility] Last Admin: 08/23/19 22:01 Dose: Not Given Mirtazapine (Remeron -) 7.5 mg PO HS [facility] Last Admin: 08/23/19 22:01 Dose: Not Given Pantoprazole Sodium (Protonix -) 40 mg PO DAILY [facility] Last Admin: 08/23/19 09:40 Dose: Not Given Torsemide (Demadex -) 20 mg PO DAILY [facility] Last Admin: 08/20/19 14:03 Dose: 20 mg - Objective Vital Signs: Vital Signs Temperature 98.7 F 08/24/19 10:00 Pulse Rate 85 08/24/19 10:00 Respiratory Rate 22 H 08/24/19 10:00 Blood Pressure 101/58 L 08/24/19 10:00 O2 Sat by Pulse Oximetry (%) 98 08/23/19 22:00 Constitutional: Yes: Calm Eyes: Yes: Conjunctiva Clear HENT: Yes: Atraumatic Cardiovascular: Yes: S1, S2 Respiratory: Yes: On Nasal O2 Gastrointestinal: Yes: Soft Genitourinary: Yes: WNL Musculoskeletal: Yes: Muscle Weakness Edema: No Neurological: Yes: Confusion Labs: CBC, BMP 08/18/19 05:49 08/23/19 07:00 INR, PTT INR 1.21 (0.83-1.09) H 08/02/19 21:25 Problem List - Problems (1) CKD (chronic kidney disease) Code(s): N18.9 - CHRONIC KIDNEY DISEASE, UNSPECIFIED Qualifiers: Chronic kidney disease stage: unspecified stage Qualified Code(s): N18.9 - Chronic kidney disease, unspecified (2) Acute kidney injury Code(s): N17.9 - ACUTE KIDNEY FAILURE, UNSPECIFIED Assessment/Plan Current Medications Generic Name Dose Route Start Last Admin Trade Name Freq PRN Reason Stop Dose Admin Acetaminophen 650 mg 08/18/19 17:38 Tylenol Suppository - [place] Q6H PRN FEVER Ascorbic Acid 500 mg 08/18/19 22:00 08/23/19 22:01 Vitamin C - PO Not Given BID [facility] Aspirin 81 mg 08/19/19 10:00 08/23/19 09:40 Asa - PO Not Given DAILY [facility] Atorvastatin Calcium 20 mg 08/18/19 22:00 08/23/19 22:01 Lipitor - PO Not Given HS [facility] Carvedilol 12.5 mg 08/18/19 22:00 08/23/19 22:01 Coreg - PO Not Given BID DINESH Ferrous Sulfate 325 mg 08/19/19 08:00 08/23/19 18:01 Feosol - PO Not Given BIDWM [facility] Heparin Sodium (Porcine) 5,000 unit 08/18/19 22:00 08/23/19 22:00 Heparin - SQ 5,000 unit BID DINESH Administration Hydralazine HCl 10 mg 08/18/19 22:00 08/23/19 22:01 Apresoline - PO Not Given BID DINESH Amino Acids 1,000 mls @ 42 mls/hr 08/18/19 18:45 08/23/19 18:02 Clinimix - IV Not Given Q24H DINESH Isosorbide Mononitrate 30 mg 08/19/19 10:00 08/23/19 09:40 Imdur - PO Not Given DAILY [facility]INESH Latanoprost 1 drop 08/18/19 22:00 08/23/19 22:01 Xalatan 0.005% Eye Drops - OU 1 drop HS [facility]INESH Administration Memantine 5 mg 08/18/19 22:00 08/23/19 22:01 Namenda - PO Not Given BID DINESH Mirtazapine 7.5 mg 08/20/19 22:00 08/23/19 22:01 Remeron - PO Not Given HS [facility]INESH Pantoprazole Sodium 40 mg 08/19/19 10:00 08/23/19 09:40 Protonix - PO Not Given DAILY [facility]IN[facility] Torsemide 20 mg 08/20/19 10:00 08/20/19 14:03 Demadex - PO 20 mg DAILY DINESH Administration Impression 1. LAURA 2. lethargy 3. recent pna and sepsis 4. ckd 5. copd 6. dm 7. hx htn 8. dementia Plan - monitor renal function - cont management per medical team - monitor volume status on torsemide - pt remains on clinimix
[2019-08-24] MEDS ORDERED: LORazepam 2 MG/ML SDV VIAL IVPUSH PRN (12:16)
--- NOTE | 2019-08-24 12:48 | PN ---
Progress Note, Physician - Current Medication List Current Medications: Active Medications Acetaminophen (Tylenol Suppository -) 650 mg [place] Q6H PRN PRN Reason: FEVER Ascorbic Acid (Vitamin C -) 500 mg PO BID [facility] Last Admin: 08/23/19 22:01 Dose: Not Given Aspirin (Asa -) 81 mg PO DAILY [facility] Last Admin: 08/23/19 09:40 Dose: Not Given Atorvastatin Calcium (Lipitor -) 20 mg PO HS [facility] Last Admin: 08/23/19 22:01 Dose: Not Given Carvedilol (Coreg -) 12.5 mg PO BID [facility] Last Admin: 08/23/19 22:01 Dose: Not Given Ferrous Sulfate (Feosol -) 325 mg PO BIDWM [facility] Last Admin: 08/23/19 18:01 Dose: Not Given Heparin Sodium (Porcine) (Heparin -) 5,000 unit SQ BID [facility] Last Admin: 08/23/19 22:00 Dose: 5,000 unit Hydralazine HCl (Apresoline -) 10 mg PO BID [facility] Last Admin: 08/23/19 22:01 Dose: Not Given Amino Acids (Clinimix -) 1,000 mls @ 42 mls/hr IV Q24H [facility] Last Admin: 08/23/19 18:02 Dose: Not Given Isosorbide Mononitrate (Imdur -) 30 mg PO DAILY [facility] Last Admin: 08/23/19 09:40 Dose: Not Given Latanoprost (Xalatan 0.005% Eye Drops -) 1 drop OU HS [facility] Last Admin: 08/23/19 22:01 Dose: 1 drop Lorazepam (Ativan Injection -) 0.5 mg IVPUSH TID PRN PRN Reason: ANXIETY Memantine (Namenda -) 5 mg PO BID [facility] Last Admin: 08/23/19 22:01 Dose: Not Given Mirtazapine (Remeron -) 7.5 mg PO HS [facility] Last Admin: 08/23/19 22:01 Dose: Not Given Pantoprazole Sodium (Protonix -) 40 mg PO DAILY [facility] Last Admin: 08/23/19 09:40 Dose: Not Given Torsemide (Demadex -) 20 mg PO DAILY [facility] Last Admin: 08/20/19 14:03 Dose: 20 mg - Objective Vital Signs: Vital Signs Temperature 98.7 F 08/24/19 10:00 Pulse Rate 85 12/04/19 10:00 Respiratory Rate 22 H 08/24/19 10:00 Blood Pressure 101/58 L 08/24/19 10:00 O2 Sat by Pulse Oximetry (%) 98 08/23/19 22:00 Labs: CBC, BMP 08/18/19 05:49 08/23/19 07:00 INR, PTT INR 1.21 (0.83-1.09) H 08/02/19 21:25
== END 2019-08-24 13:23 | disposition hospice, inpatient (51) | DRG 291 ==
LOC: JER 19:23 → JERBED 22:32 → J4W 08-03 16:30
PROVIDERS: ADMIT Internal Medicine; ATTEND Internal Medicine
PROC: 4A00X4Z Measurement of Central Nervous Electrical Activity, External Approach (ICD-10-PCS; principal; 2019-08-10)
PROC: 0HBRXZZ Excision of Toe Nail, External Approach (ICD-10-PCS; 2019-08-12)
PROC: 0HBRXZZ Excision of Toe Nail, External Approach (ICD-10-PCS; 2019-08-12)
PROC: 0HBRXZZ Excision of Toe Nail, External Approach (ICD-10-PCS; 2019-08-12)
PROC: 0HBRXZZ Excision of Toe Nail, External Approach (ICD-10-PCS; 2019-08-12)
PROC: 0HBRXZZ Excision of Toe Nail, External Approach (ICD-10-PCS; 2019-08-12)
PROC: 0HBRXZZ Excision of Toe Nail, External Approach (ICD-10-PCS; 2019-08-12)
PROC: 0HBRXZZ Excision of Toe Nail, External Approach (ICD-10-PCS; 2019-08-12)
PROC: 0HBRXZZ Excision of Toe Nail, External Approach (ICD-10-PCS; 2019-08-12)
PROC: 0HBRXZZ Excision of Toe Nail, External Approach (ICD-10-PCS; 2019-08-12)
PROC: 0HBRXZZ Excision of Toe Nail, External Approach (ICD-10-PCS; 2019-08-12)
DX: I13.0 Hypertensive heart and chronic kidney disease with heart failure and stage 1 through stage 4 chronic kidney disease, or unspecified chronic kidney disease (principal); J96.21 Acute and chronic respiratory failure with hypoxia; I50.43 Acute on chronic combined systolic (congestive) and diastolic (congestive) heart failure; J18.9 Pneumonia, unspecified organism; R53.2 Functional quadriplegia; N39.0 Urinary tract infection, site not specified; J96.11 Chronic respiratory failure with hypoxia; N17.9 Acute kidney failure, unspecified; E46 Unspecified protein-calorie malnutrition; J44.9 Chronic obstructive pulmonary disease, unspecified; F03.90 Unspecified dementia, unspecified severity, without behavioral disturbance, psychotic disturbance, mood disturbance, and anxiety; E11.22 Type 2 diabetes mellitus with diabetic chronic kidney disease; R62.7 Adult failure to thrive; K21.9 Gastro-esophageal reflux disease without esophagitis; Z95.0 Presence of cardiac pacemaker; Z99.81 Dependence on supplemental oxygen; G47.33 Obstructive sleep apnea (adult) (pediatric); N18.3 Chronic kidney disease, stage 3 (moderate); D63.8 Anemia in other chronic diseases classified elsewhere; E78.00 Pure hypercholesterolemia, unspecified; E78.5 Hyperlipidemia, unspecified; B35.1 Tinea unguium; I25.10 Atherosclerotic heart disease of native coronary artery without angina pectoris; Z66 Do not resuscitate
CPT/HCPCS: 36415; 36600; 71045-TC-FY; 80048; 80053; 80061; 81003; 82550; 82607; 82728; 82803; 82962; 83540; 83550; 83605; 83721; 83735; 83880; 84100; 84443; 84484; 85025; 85027; 85610; 85651; 85730; 86038; 86140; 86593; 86850; 86900; 86901; 86922; 87040; 87086; 87186; 87899; 93005; 93010; 93306-TC; 95816; 97116-GP; 97162-GP; 99285-25; J0131; J1644; J2794